=== PATIENT | male | born 1955 | race Caucasian/White ===

== ENCOUNTER 2023-06-10 11:08 | Inpatient (IN) ==
[2023-06-10] MEDS ORDERED: ALBUT/IPRATROP 3MG/0.5MG NEB 3 ML VIAL INH STA (11:16)
--- NOTE | 2023-06-10 11:18 | Emergency Department Note ---
Impression & Plan Acute respiratory failure with hypoxia and hypercarbia ADMIT ED Provider Note HPI: The patient is a 67-year-old gentleman with history of COPD, CHF, on 3 L nasal cannula oxygen at baseline, atrial fibrillation on Coumadin, who presents the emergency department via EMS with a chief complaint of shortness of breath. Patient states that shortness of breath developed last night. He states that it continued throughout the night into the morning so he called EMS to be assessed in the ED. Per EMS the patient was in respiratory distress on their arrival, he had oxygen saturation of 74% despite being on 3 L nasal cannula oxygen and therefore was placed on nonrebreather mask with DuoNeb breathing treatment with good improvement in his O2 sats. Patient also received Solu-Medrol in the field via EMS. Patient denies any chest pain. Patient denies any recent fever or cough. On arrival here to the ED the patient is on nonrebreather mask at 10 L saturating at 95%, he does display some mild increased work of breathing, he is otherwise hemodynamically stable. ROS: - Per HPI Differential Diagnosis: COPD exacerbation, CHF exacerbation, acute coronary syndrome, viral upper respiratory infection, acute bacterial pneumonia, pulmonary edema, amongst other potential pathologies. *Outpatient medications and allergy history reviewed. *Pertinent external medical records reviewed. PE: General: Alert, obese HEENT: Normocephalic, trachea midline Eyes: Extraocular eye movement is intact, no scleral erythema Pulmonary: Diminished bilaterally with mild expiratory wheezing in the upper lung saxena bilaterally Cardio: Regular rate and irregular rhythm GI: Abdomen is soft to palpation : No suprapubic tenderness MSK: No evidence of trauma or malformation of the extremities, 2+ edema b/l LE Skin: No evidence of rash Neuro: Alert, no focal deficits Psychiatric: Cooperative court recording monitor: (As interpreted by myself): - An order was placed for continuous cardiac monitoring - Patient was noted to be in atrial fibrillation with a rate of 58 EKG: (As interpreted by myself): Rate: 54 Rhythm: Atrial fibrillation Intervals: Within normal limits ST changes: No ST elevation Time: 1117 Interventions provided in ED: -DuoNeb breathing treatment Medical Decision Making: Shortly after the patient arrived IV was established lab work obtained, patient was ordered additional DuoNeb breathing treatment as he was diminished bilater ally with wheezing on my exam. Lab work shows a leukocytosis of 12.08, hemoglobin is 8.8, unclear baseline, platelet count is normal at 269, venous blood gas was obtained (after delay with lab result) and shows a pH of 7.25 and PCO2 of 86 consistent with acute hypercarbic respiratory failure. Patient had been maintaining his oxygen saturations at 92 to 93% on 5 L nasal cannula oxygen however following my reevaluation and prior to the VBG resulting he was switched to BiPAP over concern for possible hypercarbia as he became slightly more difficult to arouse when I was trying to speak to him on reevaluation. CMP shows elevated serum bicarbonate level at 38, no critical electrolyte abnormalities are noted, troponin is negative, BNP is elevated at 831, chest x- ray shows changes consistent with CHF and bilateral pleural effusions. Viral panel testing was obtained and patient is positive for enterovirus/rhinovirus. Blood cultures were drawn given the patient's leukocytosis and chest x-ray findings, family later arrived at the bedside and provided further history, they state that the patient has been on a progressive decline for about the past 2 to 3 weeks since he arrived to live in [place]. They state that he is "stubborn" and did not want to come to the hospital until he had no choice overnight when his breathing was rapidly deteriorating. Upon results of venous blood gas after some delay with the lab results, I did speak again with respiratory therapy and had the patient's BiPAP settings increased to 18/8 from 14/8 to assist with ventilation and to bring down his PC O2 levels. In addition to the above, the patient's EKG shows atrial fibrillation with a rate of 54 although the patient has had bradycardia at times down to 38 while here in the ED. He is noted to be on carvedilol and this could be playing a role in his bradycardia. In regard to the patient's anemia, patient's daughter tells me that this was an issue when he was admitted at a hospital in [place] about a month ago. She tells me they were unable to find a source, at this time given that his anemia is greater than 8.0 and his blood pressure is stable, will opt to trend and will forego transfusion at this time. Patient has not had any gross bleeding per rectum or hematemesis. I discussed all the above findings with the on-call [facility] midlevel provider, Charlotte Lindo, and the patient was placed for admission in improved condition, noted to be saturating at 95% on BiPAP. Family does note their preference for full CODE STATUS prior to the patient's admission. They a re aware of his stable but tenuous current condition with acute on chronic hypercarbic respiratory failure and risk of possible decompensation. CODE STATUS: FULL Consultants: [facility] service, Dr. Gr Disposition discussion held by myself with: Patient, son at bedside, daughter at bedside * CRITICAL CARE TIME: ( 65 ) minutes -Time spent at the bedside independent of any procedures and management of patient with acute hypoxic and hypercarbic respiratory failure requiring initiation of positive pressure ventilation, time spent at the bedside with discussion with family, interpretation of diagnostic studies, discussion with other healthcare providers and arrangement of admission Diagnosis: 1. Acute on chronic hypercarbic respiratory failure with hypoxia 2. Elevated BNP 3. Leukocytosis, acute 4. Elevated BUN 5. Enterovirus/rhinovirus infection 6. Anemia unknown chronicity Disposition: Admission Jarad Corrigan DO Emergency Medicine Past Med/Surg History Medical History (Updated 06/10/23 @ 14:13 by Jarad Corrigan DO) Anticoagulant long-term use Chronic a-fib Chronic congestive heart failure Chronic respiratory failure with hypoxia COPD (chronic obstructive pulmonary disease) DM II (diabetes mellitus, type II), controlled Hx of deep venous thrombosis Hx of smoking O2 dependent Social History (Updated 06/10/23 @ 13:20 by Pham Lindo PA-C) Smoking Status: Former smoker Tobacco Type: Cigarettes and Smokeless Tobacco (Dip or Chew) Preferred Language: Belarusian Feels Safe at Home: Yes Results & Data (ED) Vital Signs Vital Signs - 24 hr 06/10/23 11:16 06/10/23 11:16 06/10/23 11:25 Temperature 36.5 C Temperature Source Axillary Pulse Rate 56 L Pulse Rate [Apical] Pulse Rate from SpO2 Sensor Pulse Rhythm [Apical] Respiratory Rate 22 Respiratory Effort / Characteristics Spontaneous Respiratory Depth Deep Respiratory Pattern Blood Pressure 150/91 H Blood Pressure [Right Arm] Blood Pressure Mean 110 Blood Pressure Mean [Right Arm] Pulse Oximetry 96 98 Oxygen Delivery Method Oxymask Nebulizer Nebulizer Oxygen Flow Rate 6 6 6 Fraction of Inspired Oxygen Sepsis Recent Fever Within 48 Hours No Sepsis New/Unexplained Change in Mental Status No Sepsis Action Taken by Nursing No Action Required 06/10/23 11:19 06/10/23 11:35 06/10/23 12:49 Temperature Temperature Source Pulse Rate 58 L Pulse Rate [Apical] Pulse Rate from SpO2 Sensor Pulse Rhythm [Apical] Respiratory Rate Respiratory Effort / Characteristics Respiratory Depth Respiratory Pattern Blood Pressure Blood Pressure [Right Arm] Blood Pressure Mean Blood Pressure Mean [Right Arm] Pulse Oximetry 98 90 Oxygen Delivery Method Nasal Cannula Oxygen Flow Rate 6 3 Fraction of Inspired Oxygen Sepsis Recent Fever Within 48 Hours Sepsis New/Unexplained Change in Mental Status Sepsis Action Taken by Nursing 06/10/23 12:50 06/10/23 12:39 06/10/23 11:30 Temperature Temperature Source Pulse Rate 47 L 54 L Pulse Rate [Apical] 48 L Pulse Rate from SpO2 Sensor 52 L Pulse Rhythm [Apical] Irregular Respiratory Rate 26 H 20 Respiratory Effort / Characteristics Spontaneous Respiratory Depth Normal Respiratory Pattern Regular Blood Pressure 163/87 H Blood Pressure [Right Arm] 95/59 L Blood Pressure Mean 112 Blood Pressure Mean [Right Arm] 71 Pulse Oximetry 95 97 96 Oxygen Delivery Method BiPAP Oxygen Flow Rate Fraction of Inspired Oxygen 40 Sepsis Recent Fever Within 48 Hours Sepsis New/Unexplained Change in Mental Status Sepsis Action Taken by Nursing 06/10/23 11:55 06/10/23 12:29 06/10/23 12:30 Temperature Temperature Source Pulse Rate 52 L 53 L 50 L Pulse Rate [Apical] Pulse Rate from SpO2 Sensor 55 L 55 L 53 L Pulse Rhythm [Apical] Respiratory Rate 19 Respiratory Effort / Characteristics Respiratory Depth Respiratory Pattern Blood Pressure 95/58 L 99/63 L 95/59 L Blood Pressure [Right Arm] Blood Pressure Mean 70 75 71 Blood Pressure Mean [Right Arm] Pulse Oximetry 93 93 93 Oxygen Delivery Method Oxygen Flow Rate Fraction of Inspired Oxygen Sepsis Recent Fever Within 48 Hours Sepsis New/Unexplained Change in Mental Status Sepsis Action Taken by Nursing 06/10/23 13:00 Temperature Temperature Source Pulse Rate 53 L Pulse Rate [Apical] Pulse Rate from SpO2 Sensor 52 L Pulse Rhythm [Apical] Respiratory Rate Respiratory Effort / Characteristics Respiratory Depth Respiratory Pattern Blood Pressure 115/69 Blood Pressure [Right Arm] Blood Pressure Mean 84 Blood Pressure Mean [Right Arm] Pulse Oximetry 94 Oxygen Delivery Method Oxygen Flow Rate Fraction of Inspired Oxygen Sepsis Recent Fever Within 48 Hours Sepsis New/Unexplained Change in Mental Status Sepsis Action Taken by Nursing Laboratory Data 06/10/23 11:30 06/10/23 11:30 Lab Results 06/10/23 06/10/23 06/10/23 Range/Units 11:30 11:30 11:30 WBC 12.08 H (4.8-10.8) K/ul RBC 3.18 L (4.70-6.10) M/uL Hgb 8.8 L (14.0-18.0) g/dl Hct 29.9 L (42.0-52.0) % MCV 94.0 (80.0-100.0) fL MCH 27.7 (25.0-34.0) pg MCHC 29.4 L (32.0-36.0) g/dL RDW Std Deviation 59.6 H (36.4-46.3) fL RDW Coeff of Dhaval 17.0 H (11.5-14.5) % Plt Count 269 (130-400) K/uL MPV 9.4 (9.4-12.4) fL Immature Gran % (Auto) 0.4 % Neut % (Auto) 85.3 % Lymph % (Auto) 5.2 % Anderson % (Auto) 8.1 % Eos % (Auto) 0.6 % Baso % (Auto) 0.4 % Neut # (Auto) 10.30 H (1.40-6.50) K/uL Lymph # (Auto) 0.63 L (1.2-3.4) K/uL Anderson # (Auto) 0.98 H (0.11-0.59) K/uL Eos # (Auto) 0.07 (0-0.50) K/uL Baso # (Auto) 0.05 (0-0.2) K/uL Immature Gran # (Auto) 0.05 (0.01-0.20) K/uL PT 17.9 H (9.0-12.0) Seconds INR 1.7 H (0.9-1.1) VBG pH (7.36-7.41) VBG pCO2 (38-50) mmHg VBG pO2 mmHg VBG HCO3 mmol/L VBG O2 Saturation % VBG Base Excess mEq/L Sodium 138 (136-145) mmol/L Potassium 4.9 (3.5-5.1) mmol/L Chloride 97 L (98-107) mmol/L Carbon Dioxide 38 H (21-32) mmol/L Anion Gap 3 (3-11) BUN 26 H (6-23) mg/dl Creatinine 0.80 (0.6-1.4) mg/dl Est Cr Clr Drug Dosing 121.6 ml/min Est GFR ( Amer) 107.9 ml/min Est GFR (Non-Af Amer) 93.1 ml/min BUN/Creatinine Ratio 32.5 H (10-20) Glucose 133 H (70-99(Fasting)) mg/dl Calcium 9.0 (8.6-10.3) mg/dl Total Bilirubin 0.4 (0.2-1.0) mg/dl AST 17 (13-39) U/L ALT 11 (7-52) U/L Alkaline Phosphatase 93 (34-104) U/L Troponin I High Sens 19.1 (0-20) pg/ml B-Natriuretic Peptide (0-100) pg/ml Total Protein 6.9 (6.0-8.3) gm/dl Albumin 3.7 (3.4-5.0) gm/dl Globulin 3.2 (2.5-4.0) gm/dl Albumin/Globulin Ratio 1.2 (0.9-2) 06/10/23 06/10/23 Range/Units 11:30 12:40 WBC (4.8-10.8) K/ul RBC (4.70-6.10) M/uL Hgb (14.0-18.0) g/dl Hct (42.0-52.0) % MCV (80.0-100.0) fL MCH (25.0-34.0) pg MCHC (32.0-36.0) g/dL RDW Std Deviation (36.4-46.3) fL RDW Coeff of Dhaval (11.5-14.5) % Plt Count (130-400) K/uL MPV (9.4-12.4) fL Immature Gran % (Auto) % Neut % (Auto) % Lymph % (Auto) % Anderson % (Auto) % Eos % (Auto) % Baso % (Auto) % Neut # (Auto) (1.40-6.50) K/uL Lymph # (Auto) (1.2-3.4) K/uL Anderson # (Auto) (0.11-0.59) K/uL Eos # (Auto) (0-0.50) K/uL Baso # (Auto) (0-0.2) K/uL Immature Gran # (Auto) (0.01-0.20) K/uL PT (9.0-12.0) Seconds INR (0.9-1.1) VBG pH 7.25 L (7.36-7.41) VBG pCO2 86 H (38-50) mmHg VBG pO2 50 mmHg VBG HCO3 38 mmol/L VBG O2 Saturation 82.8 % VBG Base Excess 8.6 mEq/L Sodium (136-145) mmol/L Potassium (3.5-5.1) mmol/L Chloride (98-107) mmol/L Carbon Dioxide (21-32) mmol/L Anion Gap (3-11) BUN (6-23) mg/dl Creatinine (0.6-1.4) mg/dl Est Cr Clr Drug Dosing ml/min Est GFR ( Amer) ml/min Est GFR (Non-Af Amer) ml/min BUN/Creatinine Ratio (10-20) Glucose (70-99(Fasting)) mg/dl Calcium (8.6-10.3) mg/dl Total Bilirubin (0.2-1.0) mg/dl AST (13-39) U/L ALT (7-52) U/L Alkaline Phosphatase (34-104) U/L Troponin I High Sens (0-20) pg/ml B-Natriuretic Peptide 831 H (0-100) pg/ml Total Protein (6.0-8.3) gm/dl Albumin (3.4-5.0) gm/dl Globulin (2.5-4.0) gm/dl Albumin/Globulin Ratio (0.9-2) Administered Medications Discontinued Medications Albuterol (Albut/Ipratrop 3mg/0.5mg Neb 3 Ml Vial) 3 ml INH NOW STA Stop: 06/10/23 11:17 Last Admin: 06/10/23 11:24 Dose: 3 ml Documented By: KN Furosemide (Furosemide 40 Mg/4 Ml Vial) 40 mg IV ONE ONE Stop: 06/10/23 12:26 Last Admin: 06/10/23 13:24 Dose: 40 mg Documented By: NRZonia Ceftriaxone Sodium (Rocephin) 2,000 mg in 70 mls @ 140 mls/hr IV NOW STA Stop: 06/10/23 13:28 Last Admin: 06/10/23 13:26 Dose: 140 mls/hr Documented By: NRB Imaging Data Radiologist's Impression: Chest X-Ray 06/10/23 11:16 XR chest 1V portable HISTORY: 67 years-old Male Dyspnea acute shortness of breath COMPARISON: None TECHNIQUE: AP view of the chest FINDINGS: Cardiac silhouette is enlarged. Atherosclerosis of the aorta. Pulmonary vascular congestion with interstitial coarsening. No pneumothorax. Right greater than left pleural effusions with bibasilar consolidation. Degenerative changes of the shoulders and spine. IMPRESSION: 1. Cardiomegaly with pulmonary edema. 2. Layering pleural effusions with bibasilar consolidation, right greater than left. ACT 112: Negative or not required by law. The above report was generated using voice recognition software. It may contain grammatical, syntax or spelling errors. Electronically signed by: Josiah Sanchez M.D. 06/10/2023 11:48 AM Discharge Plan Visit Data Chief Complaint: Shortness of Breath/Dyspnea Stated Complaint: SOB SINCE LAST NIGHT ED Provider: Jarad Corrigan Discharge Problem: Acute respiratory failure with hypoxia and hypercarbia Patient Disposition: Admitted As Inpatient Discharge Instructions Interventions: ED Discharge Assessment Last Done: 06/10/23 13:43
--- NOTE | 2023-06-10 11:50 | XRay Report ---
XR chest 1V portable HISTORY: 67 years-old Male Dyspnea acute shortness of breath COMPARISON: None TECHNIQUE: AP view of the chest FINDINGS: Cardiac silhouette is enlarged. Atherosclerosis of the aorta. Pulmonary vascular congestion with inte rstitial coarsening. No pneumothorax. Right greater than left pleural effusions with bibasilar consol idation. Degenerative changes of the shoulders and spine. IMPRESSION: 1. Cardiomegaly with pulmonary edema. 2. Layering pleural effusions with bibasilar consolidation, right greater than left. ACT 112: Negative or not required by law. The above report was generated using voice recognition software. It may contain grammatical, syntax o r spelling errors. Electronically signed by: Josiah Sanchez M.D. 06/10/2023 11:48 AM
[2023-06-10 12:05] LABS: Basophils # (auto) 0.05 K/uL (0-0.2); Basophils % (auto) 0.4 %; Eosinophils # (auto) 0.07 K/uL (0-0.50); Eosinophils % (auto) 0.6 %; Hematocrit (blood only) 29.9 % (42.0-52.0); Hemoglobin 8.8 g/dl (14.0-18.0); Immature Granulocytes # (auto) 0.05 K/uL (0.01-0.20); Immature Granulocytes % (auto) 0.4 %; Lymphocytes # (auto) 0.63 K/uL (1.2-3.4); Lymphocytes % (auto) 5.2 %; Mean Corpuscular Hemoglobin 27.7 pg (25.0-34.0); Mean Corpuscular Hgb Conc 29.4 g/dL (32.0-36.0); Mean Platelet Volume 9.4 fL (9.4-12.4); Monocytes # (auto) 0.98 K/uL (0.11-0.59); Monocytes % (auto) 8.1 %; Neutrophils % (auto) 85.3 %; Platelet Count 269 K/uL (130-400); RDW Standard Deviation 59.6 fL (36.4-46.3); Red Blood Count 3.18 M/uL (4.70-6.10); White Blood Count 12.08 K/ul (4.8-10.8)
[2023-06-10 12:20] LABS: Albumin Globulin Ratio 1.2 (0.9-2); Albumin Level 3.7 gm/dl (3.4-5.0); BUN Creatinine Ratio 32.5 (10-20); Bilirubin,Total 0.4 mg/dl (0.2-1.0); Creatinine Clr Calc Pharmacy 121.6 ml/min; Est GFR (African American) 107.9 ml/min; Est GFR (Non-African American) 93.1 ml/min; Globulin 3.2 gm/dl (2.5-4.0); Potassium 4.9 mmol/L (3.5-5.1); Total Protein 6.9 gm/dl (6.0-8.3)
[2023-06-10] MEDS ORDERED: FUROSEMIDE 40 MG/4 ML VIAL IV ONE (12:25)
[2023-06-10 12:26] LABS: Troponin I High Sensitivity 19.1 pg/ml (0-20)
[2023-06-10 12:27] LABS: INR 1.7 (0.9-1.1); Prothrombin Time 17.9 Seconds (9.0-12.0)
[2023-06-10 12:48] LABS: Base Excess VBG 8.6 mEq/L; HCO3 VBG 38 mmol/L; Oxygen Saturation VBG 82.8 %; PCO2 VBG 86 mmHg (38-50); PO2 VBG 50 mmHg; pH VBG 7.25 (7.36-7.41)
[2023-06-10 12:51] LABS: Adenovirus PCR Not Detected (NotDetected); Bordetella parapertussis PCR Not Detected (NotDetected); Bordetella pertussis PCR Not Detected (NotDetected); Chlamydia pneumoniae PCR Not Detected (NotDetected); Coronavirus 229E PCR Not Detected (NotDetected); Coronavirus CoV-2 (COVID19)PCR Not Detected (NotDetected); Coronavirus HKU1 PCR Not Detected (NotDetected); Coronavirus NL63 PCR Not Detected (NotDetected); Coronavirus OC43PCR Not Detected (NotDetected); Human Metapneumovirus PCR Not Detected (NotDetected); Influenza A PCR Not Detected (NotDetected); Influenza B PCR Not Detected (NotDetected); Mycoplasma pneumoniae PCR Not Detected (NotDetected); Parainfluenza Virus 1 PCR Not Detected (NotDetected); Parainfluenza Virus 2 PCR Not Detected (NotDetected); Parainfluenza Virus 3 PCR Not Detected (NotDetected); Parainfluenza Virus 4 PCR Not Detected (NotDetected); Respiratory Syncytial VirusPCR Not Detected (NotDetected)
[2023-06-10] MEDS ORDERED: AZITHROMYCIN 500 MG in DEXTROSE 5% 250 ML IV STA (12:59)
[2023-06-10] MEDS ORDERED: cefTRIAXone SODIUM 2,000 MG/70 ML BAG IV STA (12:59)
[2023-06-10 13:02] LABS: Rhinovirus/Enterovirus PCR DETECTED (NotDetected)
--- NOTE | 2023-06-10 13:22 | History & Physical Report ---
Date of Service June 10, 2023 Assessment & Plan (1) Chronic respiratory failure with hypoxia: (2) COPD (chronic obstructive pulmonary disease): (3) O2 dependent: Plan: -Admit to PCU -Pulmonology consult -Continue on BiPAP at 18/2, trend ABGs every 4 hours, next set at 4 PM -VBG conducted showing pH of 7.25, PCO2 86 -CXR reviewed showing cardiomegaly with pulmonary edema, layering pleural effusion with bibasilar consolidations right greater than left -Started on ceftriaxone and azithromycin for suspected pneumonia - continue -Was given Solu-Medrol in the ER for possible acute COPD exacerbation, no further steroids at this time unless otherwise directed by pulmonology -Pulmonology consulted (4) Acute on chronic congestive heart failure: Plan: - Patient was administered Lasix 40 mg IV in the ER, Barron catheter ordered, strict I's and O's, daily weights -Check 2D echo -Cardiology consulted -Patient is on Coreg, Imdur, Vasotec, Lasix, atorvastatin at home-holding Coreg secondary to acute bradycardia -Check Lyme disease, tickborne illnesses with fluctuating bradycardia, HR between the mid 30s and 50s w hx of afib -Chronic lymphedema in bilateral lower extremities, patient has been followed by wound clinic as an outpatient on a near daily basis, continue wrapping of legs, wound consult placed (5) Chronic a-fib: (6) Anticoagulant long-term use: Plan: -Continue Coumadin, patient takes 10 mg daily at home -INR = 1.7 today on admission, subtherapeutic -Hemoglobin of 8.8 on admission, anemia panel ordered, patient had required 9 units blood transfusion during last hospital stay, trend with a.m. labs -Transfuse for hemoglobin of 7.0 (7) DM II (diabetes mellitus, type II), controlled: Plan: -ISS with Accu-Cheks ACHS -Patient received Solu-Medrol in the ER, no further steroids at this time -Check A1c with a.m. labs -Holding glimepiride, Jardiance while on ISS with Accu-Cheks ACHS DVT PPx: - teds, scds CODE: Full code-discussed with the family at bedside Dispo: From home, likely to remain in the hospital x 1-2 days HIM records requested from previous hospitalization. A total of 85 minutes were spent with greater than 50% of that time face to face with the patient, personally reviewing all current laboratories, imaging stud ies, past medication reconciliation, outpatient chart review, and discussion with specialists to collaborate care for the patient with attending. Please see attending documentation for corrections and/or additions. History of Present Illness Chief Complaint: Shortness of breath Primary Care Provider: ANGELICA PCP This is a 67-year-old male with PMHx of morbid obesity with a BMI of 47.4, O2 dependent at 3 L at baseline, CPAP at bedtime, DM type II, COPD, chronic hypoxic respiratory failure, A-fib, anticoagulated on Coumadin, history of DVT, squamous cell carcinoma of the face, venous insufficiency, who recently established with [facility] PCP within the past few weeks after moving here from [place]. Patient presents to the hospital with worsening progressive shortness of breath x 3 days. Pt is on bipap and somnolent on my visit, history is obtained from daughter at bedside. Worsening shortness of breath x3 days, increasing somnolence, and this morning was difficult to awaken. Prior to this he had only been able to ambulate a 25 steps prior to becoming so dyspneic needing to rest. He had been using his oxygen 3 L plus his portable O2 at 2 L at the same time - total of 5 L the last 2 days and at baseline wears 2.5 L and CPAP HS. Patient has been taking his medications as instructed as his daughter regulates these. He has been following with wound care for significantly edematous legs and has been wrapped on a daily basis. She reports that there is no wound or ulceration on his lower legs. Approximately 4 weeks ago patient was hospitalized for a 3 to 4-week. At [facility] in [facility], in the ICU for CHF, COPD and supratherapeutic INR and required transfusion x9 for a presumed GI bleed which was unable to be scoped due to his unstable condition. He was living in unfit conditions and therefore was discharged under the pretense that he would live with his daughter. Patient is found to have normal troponin, elevated BNP of 830, is requiring BiPAP, positive for rhinovirus/enterovirus, and on chest x-ray shows cardiomegaly with pulmonary edema, layering pleural effusions with bibasilar consolidations right greater than left. His hemoglobin is decreased to 8.8, but there is no baseline for me to compare this to. Family reports that he was being worked up as an outpatient for anemia without knowledge of results. Past Med/Surg History Medical History (Updated 06/10/23 @ 15:02 by Nir Ramos MD) Anticoagulant long-term use Chronic a-fib Chronic congestive heart failure Chronic respiratory failure with hypoxia COPD (chronic obstructive pulmonary disease) DM II (diabetes mellitus, type II), controlled Hx of deep venous thrombosis Hx of smoking O2 dependent Surgical History (Updated 06/10/23 @ 14:15 by Pham Lindo PA-C) No pertinent past surgical history Family History (Updated 06/10/23 @ 14:17 by Pham Lindo PA-C) Other Diabetes Social History (Updated 06/10/23 @ 13:20 by Pham Lindo PA-C) Smoking Status: Former smoker Tobacco Type: Cigarettes and Smokeless Tobacco (Dip or Chew) Preferred Language: [place] Zealander Feels Safe at Home: Yes Review of Systems Review of Systems: Unobtainable due to cognitive status Physical Exam Physical Exam: General:somnolent, awakens to verbal stimuli and shaking his arm, but cannot participate in conversation, no apparent distress, + obese with BMI 47.4 Head: Normocephalic, atraumatic ENT: PERRL, EOMI, no pharyngeal exudate, mucous membranes moist Chest: + Coarse breath sounds, on bipap at 18 / 2, + expiratory wheeze Cardiac: Sinus bradycardia with HR fluctuating between mid 30s - 50s at bedside, faint systolic murmur, 1+ JVD, normal peripheral pulses, good capillary refill, + edematous legs bilaterally wrapped with ANGEL. Abdominal: NABS x 4 quadrants, soft, nondistended, nontender to palpation, no rebound or guarding Extremities: Normal inspection, + peripheral edema , wrapped, cannot assess erythema, calfs nontender to palpation Psych: unable to determine due to somnolence Neuro: awakens to verbal stimuli, confused Results & Data Results & Data Vital Signs (Past 12 Hours) Vital Signs Temp Pulse Pulse Resp BP BP Pulse Ox 06/10/23 12:39 47 L 26 H 97 06/10/23 12:50 48 L 95/59 L 95 06/10/23 12:49 90 06/10/23 11:35 98 06/10/23 11:19 58 L 06/10/23 11:25 98 06/10/23 11:16 36.5 C 56 L 22 150/91 H 96 06/10/23 11:16 O2 Del Method O2 Flow Rate FiO2 06/10/23 12:39 40 06/10/23 12:50 BiPAP 06/10/23 12:49 Nasal Cannula 3 06/10/23 11:35 6 06/10/23 11:19 06/10/23 11:25 Nebulizer 6 06/10/23 11:16 Nebulizer 6 06/10/23 11:16 Oxymask 6 Laboratory Results 06/10/23 13:19 Aerobic Blood Culture - Pending Blood Anaerobic Blood Culture - Pending 06/10/23 13:12 Aerobic Blood Culture - Pending Blood Anaerobic Blood Culture - Pending 06/10/23 06/10/23 06/10/23 Unknown 12:40 11:30 WBC RBC Hgb Hct MCV MCH MCHC RDW Std Deviation RDW Coeff of Dhaval Plt Count MPV Immature Gran % (Auto) Neut % (Auto) Lymph % (Auto) [place] % (Auto) Eos % (Auto) Baso % (Auto) Neut # (Auto) Lymph # (Auto) [place] # (Auto) Eos # (Auto) Baso # (Auto) Immature Gran # (Auto) PT INR VBG pH 7.25 L VBG pCO2 86 H VBG pO2 50 VBG HCO3 38 VBG O2 Saturation 82.8 VBG Base Excess 8.6 Sodium Potassium Chloride Carbon Dioxide Anion Gap BUN Creatinine Est Cr Clr Drug Dosing Est GFR ( Amer) Est GFR (Non-Af Amer) BUN/Creatinine Ratio Glucose Calcium Total Bilirubin AST ALT Alkaline Phosphatase Troponin I High Sens B-Natriuretic Peptide 831 H Total Protein Albumin Globulin Albumin/Globulin Ratio Adenovirus (PCR) Not Detected B. pertussis DNA (PCR) Not Detected B.parapertussis DNA PCR Not Detected C. pneumoniae DNA (PCR) Not Detected Coronavirus OC43 (PCR) Not Detected Coronavirus HKU1 (PCR) Not Detected Coronavirus 229E (PCR) Not Detected SARS-CoV-2 (PCR) Not Detected Coronavirus NL63 (PCR) Not Detected Human Metapneumovir PCR Not Detected Influenza Type A (PCR) Not Detected Influenza Type B (PCR) Not Detected M. pneumoniae (PCR) Not Detected Parainfluenza 1 (PCR) Not Detected Parainfluenza 2 (PCR) Not Detected Parainfluenza 3 (PCR) Not Detected Parainfluenza 4 (PCR) Not Detected RSV (PCR) Not Detected Entero/Rhino (PCR) DETECTED A* 06/10/23 06/10/23 06/10/23 11:30 11:30 11:30 WBC 12.08 H RBC 3.18 L Hgb 8.8 L Hct 29.9 L MCV 94.0 MCH 27.7 MCHC 29.4 L RDW Std Deviation 59.6 H RDW Coeff of Dhaval 17.0 H Plt Count 269 MPV 9.4 Immature Gran % (Auto) 0.4 Neut % (Auto) 85.3 Lymph % (Auto) 5.2 [place] % (Auto) 8.1 Eos % (Auto) 0.6 Baso % (Auto) 0.4 Neut # (Auto) 10.30 H Lymph # (Auto) 0.63 L [place] # (Auto) 0.98 H Eos # (Auto) 0.07 Baso # (Auto) 0.05 Immature Gran # (Auto) 0.05 PT 17.9 H INR 1.7 H VBG pH VBG pCO2 VBG pO2 VBG HCO3 VBG O2 Saturation VBG Base Excess Sodium 138 Potassium 4.9 Chloride 97 L Carbon Dioxide 38 H Anion Gap 3 BUN 26 H Creatinine 0.80 Est Cr Clr Drug Dosing 121.6 Est GFR ( Amer) 107.9 Est GFR (Non-Af Amer) 93.1 BUN/Creatinine Ratio 32.5 H Glucose 133 H Calcium 9.0 Total Bilirubin 0.4 AST 17 ALT 11 Alkaline Phosphatase 93 Troponin I High Sens 19.1 B-Natriuretic Peptide Total Protein 6.9 Albumin 3.7 Globulin 3.2 Albumin/Globulin Ratio 1.2 Adenovirus (PCR) B. pertussis DNA (PCR) B.parapertussis DNA PCR C. pneumoniae DNA (PCR) Coronavirus OC43 (PCR) Coronavirus HKU1 (PCR) Coronavirus 229E (PCR) SARS-CoV-2 (PCR) Coronavirus NL63 (PCR) Human Metapneumovir PCR Influenza Type A (PCR) Influenza Type B (PCR) M. pneumoniae (PCR) Parainfluenza 1 (PCR) Parainfluenza 2 (PCR) Parainfluenza 3 (PCR) Parainfluenza 4 (PCR) RSV (PCR) Entero/Rhino (PCR) Diagnostic Findings Chest X-Ray 06/10/23 11:16 XR chest 1V portable HISTORY: 67 years-old Male Dyspnea acute shortness of breath COMPARISON: None TECHNIQUE: AP view of the chest FINDINGS: Cardiac silhouette is enlarged. Atherosclerosis of the aorta. Pulmonary vascular congestion with interstitial coarsening. No pneumothorax. Right greater than left pleural effusions with bibasilar consolidation. Degenerative changes of the shoulders and spine. IMPRESSION: 1. Cardiomegaly with pulmonary edema. 2. Layering pleural effusions with bibasilar consolidation, right greater than left. ACT 112: Negative or not required by law. The above report was generated using voice recognition software. It may contain grammatical, syntax or spelling errors. Electronically signed by: Josiah Sanchez M.D. 06/10/2023 11:48 AM Code Status & VTE Plan Code Status Full code- discussed with the family at bedside Supervising Physician Co-Signing Physician Notes Change in mental status with toxic metabolic encephalopathy secondary to co2 narcosis for a 67 year old with underlying copd. vbg shows respiratory acidosis with compensatory metabolic alkalosis. I spoke to family and discussed plan of care with family . concerns of episodes of bradycardia at this time Patient also noted to have anemia. will transfuse if hb less than 8. Echo ordered
--- NOTE | 2023-06-10 15:07 | Pulmonary Consultation ---
Date of Consultation June 10, 2023 Assessment & Plan (1) Acute respiratory failure with hypoxia and hypercarbia: (2) Acute on chronic congestive heart failure: (3) Obesity hypoventilation syndrome: Plan Impression: 67-year-old male with morbid obesity and likely obesity hypoventil ation syndrome. His bicarb is chronically elevated but he does have an acidemic pH and likely some acute on chronic elevation of his serum bicarb. It is unclear whether he actually has COPD or not. His x-ray is difficult if impossible to determine whether or not superimposed pneumonia is present Recommendations: 1. Acute on chronic hypercarbic respiratory failure: Suspect this is obesity hypoventilation syndrome. Outpatient PFTs and polysomnography recommended. For now would continue BiPAP at 16/10. Once the patient's mental status resolves, this can be removed but should be applied at night and whenever the patient is sleeping and as needed for altered mental status or increased work of breathing. Check procalcitonin. If negative I think antibiotics can be withheld from a lung perspective. 2. Agree with work-up for congestive heart failure. Echocardiogram and cardiology consultation pending. Patient received IV Lasix in the emergency room. He likely needs aggressive additional diuretics. 3. Ultimately the patient requires weight loss for optimization of his medical conditions. 4. Reported history of COPD. He does not appear bronchospastic and I do not see an indication for steroids currently. Can use as needed bronchodilators. Outpatient PFTs recommended. The patient appears to be in poor general condition. He has multiple medical issues which all appear relatively chronic at this point in time. We will be happy to review records from his prior hospitalization once available. Discussed with bedside nurse History of Present Illness Attending Physician: Yusef Gr MD History of Present Illness Asked by hospitalist to assist in evaluation management this patient admitted with shortness of breath and found to have acute on chronic hypercarbic and hypoxemic respiratory failure. History is obtained from review electronic medical record as well as discussion with patient. Patient is a morbidly obese 67-year-old male who is dependent on oxygen. He presented to the emergency room with shortness of breath. He relates a history of COPD although it is unclear if he is ever had PFTs performed previously. There is no pulm medications noted and the patient does not report using CPAP or BiPAP at home. He is never had a sleep study. In the emergency room the patient had a chest x-ray which was a poor quality film. It demonstrated significant cardiomegaly. The lungs were poorly visualized due to body habitus but no obvious infiltrate was identified. He received Lasix in the emergency room and was also treated with steroids and bronchodilators. No documentation of bronchospasm. He was placed on BiPAP and admitted to the hospitalist service. He thinks his breathing is better than when he came in. He does not report fevers chills night sweats or other constitutional symptoms. Patient History Medical History (Updated 06/10/23 @ 15:02 by Nir Ramos MD) Anticoagulant long-term use Chronic a-fib Chronic congestive heart failure Chronic respiratory failure with hypoxia COPD (chronic obstructive pulmonary disease) DM II (diabetes mellitus, type II), controlled Hx of deep venous thrombosis Hx of smoking O2 dependent Surgical History (Updated 06/10/23 @ 14:15 by Pham Lindo PA-C) No pertinent past surgical history Family History (Updated 06/10/23 @ 14:17 by Pham Lindo PA-C) Other Diabetes Social History (Updated 06/10/23 @ 13:20 by Pham Lindo PA-C) Smoking Status: Former smoker Tobacco Type: Cigarettes and Smokeless Tobacco (Dip or Chew) Preferred Language: Khmer Feels Safe at Home: Yes Review of Systems Review of Systems: Please refer to admission H&P. No additions or deletions Physical Exam Constitutional: + morbidly obese; no acute distress Patient's morbid obesity limits the sensitivity of physical exam Neck: trachea midline, no thyromegaly Respiratory: normal respiratory effort, lungs clear to auscultation Cardiovascular: Rate/Rhythm: regular rate Heart Sounds: normal S1 and normal S2; no murmur Extremities: + edema Bilateral wraps to the lower extremity Gastrointestinal (Abdomen): normal bowel sounds, soft, nontender, no hepatosplenomegaly Musculoskeletal: Extremities: extremities normal to inspection Skin: no rashes, warm and dry Neurologic: Nonfocal exam Lymphatic: no cervical lymphadenopathy Results & Data Results & Data Vital Signs (Past 12 Hours) Vital Signs Temp Pulse Pulse Resp BP BP Pulse Ox 06/10/23 14:16 64 23 141/89 H 97 06/10/23 14:00 43 L 16 110/59 L 94 06/10/23 14:00 46 L 110/59 L 93 06/10/23 13:46 61 13 119/69 96 06/10/23 13:30 49 L 18 105/66 96 06/10/23 13:00 53 L 115/69 94 06/10/23 12:30 50 L 95/59 L 93 06/10/23 12:29 53 L 99/63 L 93 06/10/23 11:55 52 L 19 95/58 L 93 06/10/23 11:30 54 L 20 163/87 H 96 06/10/23 13:52 44 L 26 H 96 06/10/23 12:39 47 L 26 H 97 06/10/23 12:50 48 L 95/59 L 95 06/10/23 12:49 90 06/10/23 11:35 98 06/10/23 11:19 58 L 06/10/23 11:25 98 06/10/23 11:16 36.5 C 56 L 22 150/91 H 96 06/10/23 11:16 O2 Del Method O2 Flow Rate FiO2 06/10/23 14:16 06/10/23 14:00 06/10/23 14:00 BiPAP 06/10/23 13:46 06/10/23 13:30 06/10/23 13:00 06/10/23 12:30 06/10/23 12:29 06/10/23 11:55 06/10/23 11:30 06/10/23 13:52 40 06/10/23 12:39 40 06/10/23 12:50 BiPAP 06/10/23 12:49 Nasal Cannula 3 06/10/23 11:35 6 06/10/23 11:19 06/10/23 11:25 Nebulizer 6 06/10/23 11:16 Nebulizer 6 06/10/23 11:16 Oxymask 6 Critical Care Results & Data Vital Signs (Past 12 Hours) Vital Signs Temp Pulse Pulse Resp BP BP Pulse Ox 06/10/23 14:16 64 23 141/89 H 97 06/10/23 14:00 43 L 16 110/59 L 94 06/10/23 14:00 46 L 110/59 L 93 06/10/23 13:46 61 13 119/69 96 06/10/23 13:30 49 L 18 105/66 96 06/10/23 13:00 53 L 115/69 94 06/10/23 12:30 50 L 95/59 L 93 06/10/23 12:29 53 L 99/63 L 93 06/10/23 11:55 52 L 19 95/58 L 93 06/10/23 11:30 54 L 20 163/87 H 96 06/10/23 13:52 44 L 26 H 96 06/10/23 12:39 47 L 26 H 97 06/10/23 12:50 48 L 95/59 L 95 06/10/23 12:49 90 06/10/23 11:35 98 06/10/23 11:19 58 L 06/10/23 11:25 98 06/10/23 11:16 36.5 C 56 L 22 150/91 H 96 06/10/23 11:16 O2 Del Method O2 Flow Rate FiO2 06/10/23 14:16 06/10/23 14:00 06/10/23 14:00 BiPAP 06/10/23 13:46 06/10/23 13:30 06/10/23 13:00 06/10/23 12:30 06/10/23 12:29 06/10/23 11:55 06/10/23 11:30 06/10/23 13:52 40 06/10/23 12:39 40 06/10/23 12:50 BiPAP 06/10/23 12:49 Nasal Cannula 3 06/10/23 11:35 6 06/10/23 11:19 06/10/23 11:25 Nebulizer 6 06/10/23 11:16 Nebulizer 6 06/10/23 11:16 Oxymask 6 Lab & Micro Results (Past 24 Hours) RBC 3.18 M/uL (4.70-6.10) L 06/10/23 WBC 12.08 K/ul (4.8-10.8) H 06/10/23 Hgb 8.8 g/dl (14.0-18.0) L 06/10/23 Hct 29.9 % (42.0-52.0) L 06/10/23 MCV 94.0 fL (80.0-100.0) 06/10/23 MCH 27.7 pg (25.0-34.0) 06/10/23 MCHC 29.4 g/dL (32.0-36.0) L 06/10/23 RDW Standard Deviation 59.6 fL (36.4-46.3) H 06/10/23 RDW Coefficient of Variation 17.0 % (11.5-14.5) H 06/10/23 Plt Count 269 K/uL (130-400) 06/10/23 MPV 9.4 fL (9.4-12.4) 06/10/23 Neutrophils (%) (Auto) 85.3 % 06/10/23 Lymphocytes (%) (Auto) 5.2 % 06/10/23 Monocytes # (Auto) 0.98 K/uL (0.11-0.59) H 06/10/23 Eosinophils # (Auto) 0.07 K/uL (0-0.50) 06/10/23 Immature Granulocyte % (Auto) 0.4 % 06/10/23 Neutrophils # (Auto) 10.30 K/uL (1.40-6.50) H 06/10/23 Lymphocytes # (Auto) 0.63 K/uL (1.2-3.4) L 06/10/23 Monocytes # (Auto) 0.98 K/uL (0.11-0.59) H 06/10/23 Eosinophils # (Auto) 0.07 K/uL (0-0.50) 06/10/23 Basophils # (Auto) 0.05 K/uL (0-0.2) 06/10/23 Immature Granulocyte # (Auto) 0.05 K/uL (0.01-0.20) 3 Na 138 mmol/L (136-145) 06/10/23 K 4.9 mmol/L (3.5-5.1) 06/10/23 Cl 97 mmol/L (98-107) L 06/10/23 CO2 38 mmol/L (21-32) H 06/10/23 Anion Gap 3 (3-11) 06/10/23 BUN 26 mg/dl (6-23) H 06/10/23 Creatinine 0.80 mg/dl (0.6-1.4) 06/10/23 Estimated GFR ( Amer) 107.9 ml/min 06/10/23 Estimated GFR (Non-Af Amer) 93.1 ml/min 06/10/23 BUN/Creatinine Ratio 32.5 (10-20) H 06/10/23 Glu 133 mg/dl (70-99(Fasting)) H 06/10/23 Ca 9.0 mg/dl (8.6-10.3) 06/10/23 Total Bilirubin 0.4 mg/dl (0.2-1.0) 06/10/23 AST 17 U/L (13-39) 06/10/23 ALT 11 U/L (7-52) 06/10/23 Alkaline Phosphatase 93 U/L (34-104) 06/10/23 TP 6.9 gm/dl (6.0-8.3) 06/10/23 Albumin 3.7 gm/dl (3.4-5.0) 06/10/23 Globulin 3.2 gm/dl (2.5-4.0) 06/10/23 Albumin/Globulin Ratio 1.2 (0.9-2) 06/10/23 Calcium Level 9.0 mg/dl (8.6-10.3) 06/10/23 11:30 Prothromb Time International Ratio 1.7 (0.9-1.1) H 06/10/23 11 :30 Venous Blood pH 7.25 (7.36-7.41) L 06/10/23 12:40 Venous Blood Partial Pressure CO2 86 mmHg (38-50) H 06/10/23 12 :40 Venous Blood Partial Pressure O2 50 mmHg 06/10/23 12:40 Venous Blood HCO3 38 mmol/L 06/10/23 12:40 Venous Blood Base Excess 8.6 mEq/L 06/10/23 12:40 Venous Blood Oxygen Saturation 82.8 % 06/10/23 12:40 Diagnostic Findings (Past 24 Hours) Chest X-Ray 06/10/23 11:16 XR chest 1V portable HISTORY: 67 years-old Male Dyspnea acute shortness of breath COMPARISON: None TECHNIQUE: AP view of the chest FINDINGS: Cardiac silhouette is enlarged. Atherosclerosis of the aorta. Pulmonary vascular congestion with interstitial coarsening. No pneumothorax. Right greater than left pleural effusions with bibasilar consolidation. Degenerative changes of the shoulders and spine. IMPRESSION: 1. Cardiomegaly with pulmonary edema. 2. Layering pleural effusions with bibasilar consolidation, right greater than left. ACT 112: Negative or not required by law. The above report was generated using voice recognition software. It may contain grammatical, syntax or spelling errors. Electronically signed by: Josiah Sanchez M.D. 06/10/2023 11:48 AM I & O Totals 24 Hours 06/09/23 06/10/23 06/11/23 06:59 06:59 06:59 Intake Total 70 / 70 Balance 70 / 70 Cumulative 06/10/23 10:59 thru 06/10/23 14:07 Intake Total 70 Balance 70 RT Ventilator Mngmt (Last Documented) Ventilator Ordered Settings Respiratory Rate 23 06/10/23 14:16 Fraction of Inspired Oxygen 40 06/10/23 13:52 Ventilator - PT Measurements Respiratory Rate 23 PG Care Time/CCT Total # of Minutes Spent Total Time Spent with Patient: Total time spent is greater than 50% in coordination of care (as documented) at patient's floor/unit and/or counseling patient: Coding Level of Care Code 43092 INT INP/OBS CARE 3/75MIN Diagnoses Acute respiratory failure with hypoxia and hypercarbia J96.01; J96.02 Acute on chronic congestive heart failure I50.9 Obesity hypoventilation syndrome E66.2
[2023-06-10 15:14] LABS: Appearance Urine Clear (Clear); Bilirubin Urine Negative (Negative); Blood Urine Negative (Negative); Color Urine Yellow; Glucose Urine UA 3+ (Negative); Ketones Urine Negative (Negative); Leukocyte Esterase Urine Negative (Negative); Nitrite Urine Negative (Negative); Protein Urine Negative (Negative); Specific Gravity Urine 1.013 (1.000-1.030); Urobilinogen Urine Negative (Negative)
[2023-06-10] MEDS ORDERED: GLUCAGON FOR INJ 1 MG VIAL SQ PRN (15:14)
[2023-06-10] MEDS ORDERED: CARBOHYDRATES FOR HYPOGLYCEMIA PO PRN (15:14)
[2023-06-10] MEDS ORDERED: GLUCOSE 10 TAB/TUBE PO PRN (15:14)
[2023-06-10] MEDS ORDERED: DEXTROSE 50% 50 ML SYRINGE IV PRN (15:14)
[2023-06-10] MEDS ORDERED: GLUCOSE 40% GEL 15 GM TUBE PO PRN (15:14)
[2023-06-10] MEDS ORDERED: ONDANSETRON INJ 2 MG/ML 2 ML VIAL IV PRN (15:14)
[2023-06-10 15:22] LABS: Ferritin 53.8 ng/ml (8-388)
[2023-06-10] MEDS ORDERED: Patient's ALLERGY Info needs ENTERED SCH (15:30)
[2023-06-10 15:36] LABS: Folate (Folic Acid),Ser orPlas 18.69 ng/ml (>5.38)
[2023-06-10] MEDS: ALBUT/IPRATROP 3MG/0.5MG NEB 3 ML VIAL NEB SCH ×3 (15:48→23:19)
[2023-06-10 16:13] LABS: Base Excess ABG 10.6 mEq/L (-9-1.8); HCO3 ABG 39 mmol/L (19-24); PCO2 ABG 71 mmHg (35-46); PO2 ABG 61 mmHg (80-95); pH ABG 7.35 (7.35-7.45)
[2023-06-10 16:14] LABS: Allen Test Pos (Pos)
[2023-06-10 16:32] LABS: Procalcitonin 0.13 ng/ml (0-0.5)
[2023-06-10 16:38] LABS: Lyme Ab IgG w/WB Rflx Negative (Negative); Lyme Ab IgM w/WB Rflx Negative (Negative)
[2023-06-10] MEDS: INSULIN ASPART PER UNIT CHARGE SC SCH ×2 (17:59→21:13)
[2023-06-10] MEDS: WARFARIN SOD 10 MG TAB PO SCH (18:00)
[2023-06-10] MEDS: guaiFENesin 600 MG TABCR PO SCH (20:09)
[2023-06-10] MEDS: FUROSEMIDE 40 MG/4 ML VIAL IV SCH (20:09)
[2023-06-11] MEDS: ALBUT/IPRATROP 3MG/0.5MG NEB 3 ML VIAL NEB SCH ×6 (03:48→23:01)
[2023-06-11 06:09] LABS: Hematocrit (blood only) 28.6 % (42.0-52.0); Hemoglobin 8.8 g/dl (14.0-18.0); Mean Corpuscular Hemoglobin 27.7 pg (25.0-34.0); Mean Corpuscular Hgb Conc 30.8 g/dL (32.0-36.0); Mean Corpuscular Volume 89.9 fL (80.0-100.0); Mean Platelet Volume 9.7 fL (9.4-12.4); Platelet Count 275 K/uL (130-400); RDW Coefficient of Variation 16.9 % (11.5-14.5); RDW Standard Deviation 56.1 fL (36.4-46.3); Red Blood Count 3.18 M/uL (4.70-6.10)
[2023-06-11 06:29] LABS: BUN Creatinine Ratio 32.9 (10-20); Calcium 9.3 mg/dl (8.6-10.3); Creatinine Clr Calc Pharmacy 113.2 ml/min; Est GFR (African American) 105.2 ml/min; Est GFR (Non-African American) 90.8 ml/min; Potassium 4.4 mmol/L (3.5-5.1)
[2023-06-11 07:17] LABS: Estimated Average Glucose 120 mg/dl; Hemoglobin A1C 5.8 % (4.5-5.6)
--- NOTE | 2023-06-11 07:51 | Cardiology Consultation ---
Date of Consultation June 11, 2023 Assessment & Plan (1) Acute on chronic congestive heart failure: (2) Chronic respiratory failure with hypoxia: (3) Chronic a-fib: (4) Obesity hypoventilation syndrome: Plan See attending software support technician's documentation for further recommendations and plan of care. Supervising Physician Co-Signing Physician Notes Attending Staff: Pt seen and evaluated with AP Staff. Concur with observations and plans 67 yo man presenting with dyspnea Worsening dyspnea Hypoxia noted Started on Lasix 40 mg IV BID Recently moved from [place] Recent admission in [place] with heart failure Moved to [place] to be near daughter Hx: * Morbid Obesity * O2 dependence * Obesity /Hypoventilation * HTN * DM * Chronic Afib - on coumadin * DVT hx ECHOcardiogram 06/10/2023 Poor quality LVEF 50-55% Moderate TR RV - moderate to severe dilation RV pressure + volume overload Severe Pulmonary HTN Est PAP 76 mmHG Urine Protein - negative PCO2 on ABG - 70's Exam: Obese Glasses On O2 via NC JVP to 18 cmH20 S1S2 Distant 2/6 systolic murmur - soft CTA B Mild presacral edema 2+ LE edema to thighs Mild abdominal wall edema Plans: * Severe volume overload * Acute on chronic combined right heart failure * Lasix 40 mg IV given with robust response * Continue with Lasix 40 mg IV BID * Goal is - 2.5 liters overnight * Barron in place * Given underlying hypoxia/hypercarbic respiratory failure, would need aggressive KCL repletion to avoid mount a significant hypochloremic metabolic alkalosis * Start Kdur 40 meq po per day * K+ goal is 4.5-5 * Mag goal >2 * Check magnesium * PT/OT -working to mobilize patient * Supplemental O2 as needed; wean as appropriate * Afib- chronic * Ventricular rate controlled * Coreg 25 mg po BID (OFF @ present with ventricular rates in 60's) - may consider reduced dose of 3.125 mg po BID * On coumadin - INR 1.9 (goal 2-3) - indication is afib * SBP @ goal (100-120 mmHg) * Enalapril 10 mg po per day (OFF) * May consider holding Imdur * Start Aldactone 25 mg po per day * CRISTOFER /CPAP? / Bariatrics? Tiago Torres History of Present Illness Reason for Consultation: CHF; bradycardia Requesting Physician: Ms. Charlotte Lindo Attending Physician: Dr. Brian Parker History of Present Illness Patient is a 67 year old male, presenting to [facility] with complaints of SOB. History is complex, records reviewed. Recently moved from [place] so limited records reviewed. History: 1. Hypertension 2. Obesity 3. DM type II 4. COPD, oxygen dependent 5. Obesity hypoventilatory syndrome 6. Chronic venous insufficiency with LE wounds, history of venous ablations 7. Chronic Afib 7. History of DVT Patient admitted for worsening SOB, fluid retention, hypoxia consistent with acute on chronic respiratory failure, multifactorial. He was admitted earlier this summer in [facility] [place] for similar issues, per reports. He then moved here to live with daughter. He was started on IV furosemide 40 mg BID with aggressive diuresis since admission. Nearly 4-5 L output thus far. Barron in place. Tolerating diuretics. Reports ongoing dyspnea. No chest pain. Ongoing cough noted. No dizziness. Leg wounds wrapped. Followed by wound care. Afib with Slow ventricular rates noted on EKG when admitted. carvedilol placed on hold. HR's currently in the 80's Patient disgruntled at time of evaluation. Understands he needs to be hospitalized for fluid removal. Allergies Allergy/AdvReac Type Severity Reaction Status Date / Time No Known Allergies Allergy Unverified 06/10/23 16:21 Home Medications Medication Instructions Recorded Confirmed Type albuterol sulfate 2.5 mg/3 mL 2.5 mg inhalation Q6H PRN 06/10/23 06/10/23 History (0.083 %) solution for nebulization Shortness Of Breath atorvastatin 40 mg tablet 40 mg PO DAILY 06/10/23 06/10/23 History carvedilol 25 mg tablet 25 mg PO BID 06/10/23 06/10/23 History empagliflozin 10 mg tablet 10 mg PO QAM 06/10/23 06/10/23 History enalapril maleate 10 mg tablet 10 mg PO DAILY 06/10/23 06/10/23 History fluticasone fur. 100 mcg-umeclid 1 inh inhalation DAILY 06/10/23 06/10/23 History 62.5 mcg-vilant 25 mcg inhalat.powder (Trelegy Ellipta) furosemide 40 mg tablet 40 mg PO QAM 06/10/23 06/10/23 History glimepiride 1 mg tablet 1 mg PO QAM 06/10/23 06/10/23 History isosorbide mononitrate 60 mg 60 mg PO QAM 06/10/23 06/10/23 History tablet,extended release 24 hr [id number]-hu-mpddi 300 mcg-K 60 1 tab PO DAILY 06/10/23 06/10/23 History mcg-lycop 600 mcg-lutein 300 mcg tablet (Centrum Silver Men) pantoprazole 40 mg tablet,delayed 40 mg PO DAILY 06/10/23 06/10/23 History release potassium chloride 10 mEq 10 meq PO QAM 06/10/23 06/10/23 History tablet,extended release warfarin 10 mg tablet 10 mg PO DAILY 06/10/23 06/10/23 History Patient History Medical History (Updated 06/10/23 @ 15:02 by Nir Ramos MD) Anticoagulant long-term use Chronic a-fib Chronic congestive heart failure Chronic respiratory failure with hypoxia COPD (chronic obstructive pulmonary disease) DM II (diabetes mellitus, type II), controlled Hx of deep venous thrombosis Hx of smoking O2 dependent Surgical History (Updated 06/10/23 @ 14:15 by Pham Lindo PA-C) No pertinent past surgical history Family History (Updated 06/10/23 @ 14:17 by Pham Lindo PA-C) Other Diabetes Social History (Updated 06/10/23 @ 13:20 by Pham Lindo PA-C) Smoking Status: Former smoker Tobacco Type: Cigarettes Second Hand Exposure: Yes; Do You Dip or Chew Tobacco: No; Tobacco Cessation Education Requested by Patient: No Hx Alcohol Use: Yes Alcohol type: beer Hx Substance Use: No Preferred Language: Turkmen Communication Ability: Effective Hotel Or Motel Receptionist Required: No Beliefs That Will Affect Care: None Current Living Situation: Family Other Information That Helps Us Care for You: No Feels Safe at Home: Yes Safety Concerns: Feels Safe At This Time Assistive Devices: Oxygen - Continuous and Walker Review of Systems Review of Systems: All systems reviewed & are unremarkable except as noted in HPI & below Physical Exam Constitutional: WD/WN, vitals as above + morbidly obese Neck: + thick neck Respiratory: + labored breathing Auscultation: + rales Cardiovascular: Rate/Rhythm: + irregularly irregular Heart Sounds: no murmur Vessels: + JVD Extremities: + edema (2+ b/l edema to hips; sacral edema; legs wrapped) Gastrointestinal (Abdomen): normal bowel sounds, soft, nontender, no hepatosplenomegaly Musculoskeletal: no cyanosis or clubbing, extremities motor strength 5/5 Results & Data Vital Signs (Past 12 Hours) Vital Signs Temp Pulse Pulse Resp BP BP Pulse Ox 06/11/23 07:15 75 22 97 06/11/23 03:48 63 26 H 94 06/11/23 03:48 63 26 H 93 06/11/23 02:16 36.5 C 69 22 122/65 93 06/10/23 22:01 69 06/10/23 23:19 54 L 28 H 94 06/10/23 23:19 54 L 28 H 94 06/10/23 22:56 36.8 C 71 18 103/61 92 O2 Del Method O2 Flow Rate FiO2 06/11/23 07:15 Nasal Cannula 5 06/11/23 03:48 BiPAP 30 06/11/23 03:48 330 06/11/23 02:16 BiPAP 30 06/10/23 22:01 06/10/23 23:19 BiPAP 30 06/10/23 23:19 30 06/10/23 22:56 Nasal Cannula Laboratory Results Cardiac Enzymes 06/10/23 06/10/23 Range/Units 11:30 11:30 AST 17 (13-39) U/L Troponin I High Sens 19.1 (0-20) pg/ml B-Natriuretic Peptide 831 H (0-100) pg/ml Coagulation 06/10/23 06/10/23 Range/Units 11:30 11:30 PT 17.9 H (9.0-12.0) Seconds B-Natriuretic Peptide 831 H (0-100) pg/ml CBC 06/10/23 06/11/23 Range/Units 11:30 05:29 WBC 12.08 H 11.90 H (4.8-10.8) K/ul RBC 3.18 L 3.18 L (4.70-6.10) M/uL Hgb 8.8 L 8.8 L (14.0-18.0) g/dl Hct 29.9 L 28.6 L (42.0-52.0) % Plt Count 269 275 (130-400) K/uL Neut # (Auto) 10.30 H (1.40-6.50) K/uL Lymph # (Auto) 0.63 L (1.2-3.4) K/uL [place] # (Auto) 0.98 H (0.11-0.59) K/uL Eos # (Auto) 0.07 (0-0.50) K/uL Baso # (Auto) 0.05 (0-0.2) K/uL Comprehensive Metabolic Panel 06/10/23 06/11/23 Range/Units 11:30 05:29 Sodium 138 139 (136-145) mmol/L Potassium 4.9 4.4 (3.5-5.1) mmol/L Chloride 97 L 95 L (98-107) mmol/L Carbon Dioxide 38 H 39 H (21-32) mmol/L BUN 26 H 28 H (6-23) mg/dl Creatinine 0.80 0.85 (0.6-1.4) mg/dl Glucose 133 H 122 H (70-99(Fasting)) mg/dl Calcium 9.0 9.3 (8.6-10.3) mg/dl AST 17 (13-39) U/L ALT 11 (7-52) U/L Alkaline Phosphatase 93 (34-104) U/L Total Protein 6.9 (6.0-8.3) gm/dl Albumin 3.7 (3.4-5.0) gm/dl Intake and Output 06/10/23 06/11/23 06/11/23 22:59 06:59 14:59 Intake Total 375 / 545 100 / 545 Output Total 3300 / 4150 850 / 4150 Balance -2925 / -3605 -750 / -3605 Intake: IV 255 / 325 Azithromycin 500 mg In Dextrose 255 / 255 5% 250 ml @ 127.5 mls/hr IV NOW STA Rx#:[id number] Oral 120 / 220 100 / 220 Output: Urine Amount (Catheter) 3300 / 4150 850 / 4150 Barron/Indwelling 3300 / 4150 850 / 4150 Other: Weight 135 kg 135 kg Weight Measurement Method Built in [facility] Diagnostic Findings Telemetry reviewed: afib controlled rates EKG on admission: afib with slow rates, artifact. no acute changes Echo completed during admission 06/10/23: Afib with slow rates during exam. LV is suboptimally visualized. Flattening of the interventricular septum is present consistent with RV pressure/volume overload. The LV wall motion is otherwise grossly normal. EF 50-55% RV dilation moderate to severe, but suboptimally visualized. Mild MR Moderate TR severe pulm hypertension with PA systolic pressure of 76 mmHg no prior studies for comparison Chest X-Ray 06/10/23 11:16 XR chest 1V portable HISTORY: 67 years-old Male Dyspnea acute shortness of breath COMPARISON: None TECHNIQUE: AP view of the chest FINDINGS: Cardiac silhouette is enlarged. Atherosclerosis of the aorta. Pulmonary vascular congestion with interstitial coarsening. No pneumothorax. Right greater than lef t pleural effusions with bibasilar consolidation. Degenerative changes of the shoulders and spine. IMPRESSION: 1. Cardiomegaly with pulmonary edema. 2. Layering pleural effusions with bibasilar consolidation, right greater than left. ACT 112: Negative or not required by law. The above report was generated using voice recognition software. It may contain grammatical, syntax or spelling errors. Electronically signed by: Josiah Sanchez M.D. 06/10/2023 11:48 AM Medications Administered Current Inpatient Medications Acetaminophen (Acetaminophen 325 Mg Tab) 650 mg PO Q4H PRN PRN Reason: Moderate Pain (Scale 4, 5, 6) Stop: 07/10/23 15:13 Albuterol (Albut/Ipratrop 3mg/0.5mg Neb 3 Ml Vial) 3 ml NEB Q4R OMAYRA; Protocol Stop: 07/10/23 15:13 Last Admin: 06/11/23 07:14 Dose: 3 ml Atorvastatin Calcium (Atorvastatin 40 Mg Tab) 40 mg PO DAILY OMAYRA Stop: 07/11/23 08:59 Dextrose (Dextrose 50% 50 Ml Syringe) 25 - 50 ml IV UD PRN; Protocol PRN Reason: Hypoglycemia Protocol Stop: 07/10/23 15:13 Fluticasone Furoate (Fluticasone Furoate 100mcg 14 Puffs/Inhaler) 1 puffs INH DAILY [facility] Stop: 07/11/23 08:59 Furosemide (Furosemide 40 Mg/4 Ml Vial) 40 mg IV BID17 O[facility]YRA Stop: 07/10/23 20:59 Last Admin: 06/10/23 20:09 Dose: 40 mg Glucagon (Glucagon For Inj 1 Mg Vial) 1 mg SQ UD PRN; Protocol PRN Reason: Hypoglycemia Protocol Stop: 07/10/23 15:13 Glucose (Glucose 10 Tab/Tube) 4 - 8 tab PO UD PRN; Protocol PRN Reason: Hypoglycemia Treatment Stop: 07/10/23 15:13 Glucose (Glucose 40% Gel 15 Gm Tube) 15 - 30 gm PO UD PRN; Protocol PRN Reason: Hypoglycemia Protocol Stop: 07/10/23 15:13 Guaifenesin (Guaifenesin 600 Mg Tabcr) 1,200 mg PO Q12 O[facility]YRA Stop: 07/10/23 20:59 Last Admin: 06/10/23 20:09 Dose: 1,200 mg Ceftriaxone Sodium 2,000 mg/ (Dextrose) 70 mls @ 100 mls/hr IV DAILY [facility]; Protocol Stop: 06/17/23 08:59 Azithromycin 250 mg/ Dextrose 252.5 mls @ 125 mls/hr IV QAM [facility] Stop: 06/14/23 11:02 Insulin Aspart (Insulin Aspart Per Unit Charge) 0 units SC ACHS [facility] Stop: 07/10/23 16:29 Last Admin: 06/10/23 21:13 Dose: 2 units Isosorbide Mononitrate (Isosorbide [place] Extended Rel 60 Mg Tabcr) 60 mg PO QAM [facility] Stop: 07/11/23 08:59 Miscellaneous (Carbohydrates For Hypoglycemia ) 15 - 30 gm PO UD PRN PRN Reason: Hypoglycemia Protocol Stop: 07/10/23 15:13 Ondansetron HCl (Ondansetron Inj 2 Mg/Ml 2 Ml Vial) 4 mg IV Q4H PRN PRN Reason: Nausea And Vomiting Stop: 07/10/23 15:13 Pantoprazole Sodium (Pantoprazole 40 Mg Tab) 40 mg PO DAILY [facility] Stop: 07/11/23 08:59 Umeclidinium/Vilanterol (Umeclidinium/Vilanterol 62.5/25mcg 7 Puffs/Inhaler) 1 puffs INH DAILY [facility] Stop: 07/11/23 08:59 Warfarin Sodium (Warfarin Sod 10 Mg Tab) 10 mg PO DAILY@1600 [facility] Stop: 07/10/23 16:29 Last Admin: 06/10/23 18:00 Dose: 10 mg
[2023-06-11] MEDS: guaiFENesin 600 MG TABCR PO SCH ×2 (07:52→20:16)
[2023-06-11] MEDS: PANTOprazole 40 MG TAB PO SCH (07:52)
[2023-06-11] MEDS: ATORVASTATIN 40 MG TAB PO SCH (07:52)
[2023-06-11] MEDS: UMECLIDINIUM/VILANTEROL 62.5/25MCG 7 PUFFS/INHALER INH SCH (07:53)
[2023-06-11] MEDS: FLUTICASONE FUROATE 100MCG 14 PUFFS/INHALER INH SCH (07:54)
[2023-06-11] MEDS: FUROSEMIDE 40 MG/4 ML VIAL IV SCH ×2 (07:55→17:38)
[2023-06-11] MEDS: INSULIN ASPART PER UNIT CHARGE SC SCH ×4 (08:09→20:17)
[2023-06-11] MEDS ORDERED: cefTRIAXone SODIUM 2,000 MG in DEXTROSE 5% 50 ML IV SCH (09:00)
[2023-06-11] MEDS ORDERED: NON-FORMULARY MEDICATION (Fluticasone-Umeclidin-Vilanter [Trelegy Ellipta] 100-62.5-25 mcg INH SCH (09:00)
[2023-06-11] MEDS ORDERED: AZITHROMYCIN 250 MG in DEXTROSE 5% 250 ML IV SCH (09:00)
[2023-06-11] MEDS ORDERED: ISOSORBIDE MONO EXTENDED REL 60 MG TABCR PO SCH (09:00)
[2023-06-11 11:01] LABS: INR 1.9 (0.9-1.1); Prothrombin Time 19.6 Seconds (9.0-12.0)
--- NOTE | 2023-06-11 11:39 | Pulmonology Progress Note ---
Date of Service June 11, 2023 Assessment & Plan (1) Acute respiratory failure with hypoxia and hypercarbia: (2) Acute on chronic congestive heart failure: (3) Obesity hypoventilation syndrome: Plan Impression: 67-year-old male with morbid obesity and likely obesity hypoventilat ion syndrome. His bicarb is chronically elevated but he does have an acidemic pH and likely some acute on chronic elevation of his serum bicarb. It is unclear whether he actually has COPD or not. His x-ray is difficult if impossible to determine whether or not superimposed pneumonia is present Recommendations: 1. Acute on chronic hypercarbic respiratory failure: Suspect this is obesity hypoventilation syndrome. Outpatient PFTs and polysomnography recommended. For now would continue BiPAP at 16/10. Patient did very well with BiPAP last evening and has intentions to continue to use it moving forward. He has never been evaluated for sleep apnea. He does report that he carries a diagnosis of COPD and uses Trelegy and an albuterol inhaler at home. He is uncertain of his last pulmonary function testing. 2. Agree with work-up for congestive heart failure. Echocardiogram consistent with severe pulmonary hypertension. Likely Group 2-3. Agree with aggressive diuresis. Will defer to cardiology. 3. Ultimately the patient requires weight loss for optimization of his medical conditions. 4. Reported history of COPD. Slight inspiratory wheezes noted on exam today. Continue with current inhaler regime. Can use as needed bronchodilators. Outpatient PFTs recommended. Thank you for allowing us to participate in the care of this patient. He appears to be improving clinically at this time. Admission and Anticipated Discharge Date Admission Date: June 10, 2023 Subjective Patient seen and evaluated at bedside. He reports that his breathing is much better at this time. He states that he used the BiPAP last night and has intentions to continue to use it as he slept well with it in place. Patient is continuing diuresis and is -4.2 L since hospitalization. Review of Systems Review of Systems: Unchanged from admission. Physical Exam Physical Exam: VITAL SIGNS - Vital signs and nursing notes were reviewed. GENERAL - 67-year-old male appearing his stated age who is in no acute distress. Communicates well with provider and answers questions appropriately. LUNGS -diminished breath sounds with bibasilar Rales RIGHT greater than left and slight inspiratory wheeze appreciated. CARDIAC - RRR with S1/S2. No murmur, rubs, or gallops appreciated. EXTREMITIES -impressive edema noted of the bilateral lower extremities. PSYCH - A&Ox3 and cooperates fully with examiner. Pt is very pleasant and interacts well with examiner. Results & Data Results & Data Vital Signs (Past 12 Hours) Vital Signs Temp Pulse Pulse Pulse Resp BP Pulse Ox 06/11/23 11:23 76 22 95 06/11/23 07:59 36.7 C 66 16 109/70 95 06/11/23 07:15 75 22 97 06/11/23 03:48 63 26 H 94 06/11/23 03:48 63 26 H 93 06/11/23 02:16 36.5 C 69 22 122/65 93 O2 Del Method O2 Flow Rate FiO2 06/11/23 11:23 Nasal Cannula 4 06/11/23 07:59 Nasal Cannula 06/11/23 07:15 Nasal Cannula 5 06/11/23 03:48 BiPAP 30 06/11/23 03:48 330 06/11/23 02:16 BiPAP 30 PG Care Time/CCT Total # of Minutes Spent Total Time Spent with Patient: Total time spent is greater than 50% in coordination of care (as documented) at patient's floor/unit and/or counseling patient: Coding Level of Care Code 29004 SUB INP/OBS CARE 2/35MIN Diagnoses Acute respiratory failure with hypoxia and hypercarbia J96.01; J96.02 Acute on chronic congestive heart failure I50.9 Obesity hypoventilation syndrome E66.2
[2023-06-11] MEDS ORDERED: SPIRONOLACTONE 25 MG TAB PO ONE (14:30)
[2023-06-11] MEDS ORDERED: POTASSIUM CHLORIDE CRTAB 20 MEQ TABCR PO ONE (14:30)
--- NOTE | 2023-06-11 14:36 | Hospitalist Progress Note ---
Date of Service June 11, 2023 Assessment & Plan (1) Acute respiratory failure with hypoxia and hypercarbia: (2) Obesity hypoventilation syndrome: (3) Acute on chronic congestive heart failure: Plan Acute respiratory failure with hypoxia and hypercarbia Multifactorial secondary to acute on chronic diastolic heart failure, obesity hypoventilation syndrome, could have obstructive sleep apnea, severe pulm HTN, rhinovirus infection, COPD --CXR:Cardiomegaly with pulmonary edema. Layering pleural effusions with bibasilar consolidation, right greater than left. --ECHO: Flattening of the interventricular septum is present consistent with right ventricular pressure/volume overload, left ventricular wall motion is grossly normal. EF 50 to 55%. Right ventricle appears to be dilated to a moderate to severe degree. Mild mitral regurgitation. Moderate tricuspid regurgitation. Severe pulmonary hypertension is present. -- Serological test positive for Entero/Rhinovirus --Normal procalcitonin --Blood cultures pending Continue IV diuresis, monitor volume status Replete electrolytes as needed Continue home inhalers Will need outpatient PFTs, polysomnography Continue BiPAP at bedtime for now Appreciate cardiology, pulmonology input Started on Aldactone 25 mg daily Hold Imdur, lisinopril for now due to low BP Empirically on IV antibiotics Needs follow-up with cardiology, pulmonology as outpatient Nebs as needed Chronic atrial fibrillation Continue carvedilol 3.125 mg twice a day (dose decreased due to low BP) On Coumadin for anticoagulation Monitor INR 1.9 today Normocytic anemia ? Unknown baseline Hemoglobin 8.8 Currently no bleeding issues Monitor DM II HbA1c 5.8 ? Reliability of HbA1c given anemia Hold p.o. meds Continue insulin while hospitalized Monitor bgS Morbid obesity BMI 46 GERD Continue PPI Hyperlipidemia Continue statin DVT Px: Coumadin CODE STATUS Full code Disposition PT OT prior to discharge Admission and Anticipated Discharge Date Admission Date: June 10, 2023 Subjective Patient is seen and examined at bedside States having dyspnea on exertion Also reports dizziness intermittently Reports cough with expectoration Denies any chest pain, nausea, vomiting, abdominal pain Discussed with patient's daughter at bedside No other complaints Review of Systems Review of Systems: All systems reviewed & are unremarkable except as noted in Subjective Physical Exam Physical Exam: Physical Exam: Vitals signs as noted above General Appearance:Morbidly Obese, no apparent distress Head: normocephalic, Atraumatic Eyes: normal inspection, EOMI Neck: supple, Trachea midline Respiratory/Chest: Decreased breath sounds, CTA, No accessory muscle use Cardiovascular: Irregularly irregular, No murmur Abdomen/GI:Soft, Non tender, Bowel sounds present Extremities/Musculoskeletal:normal inspection, 2+ pedal edema Neurologic/Psych:AAOX3, grossly no focal neurological deficits Skin: normal color, warm Results & Data Results & Data Vital Signs (Past 12 Hours) Vital Signs Temp Pulse Pulse Pulse Resp BP Pulse Ox 06/11/23 12:04 36.7 C 70 16 107/60 95 06/11/23 11:23 76 22 95 06/11/23 07:59 36.7 C 66 16 109/70 95 06/11/23 07:15 75 22 97 06/11/23 03:48 63 26 H 94 06/11/23 03:48 63 26 H 93 06/11/23 02:16 36.5 C 69 22 122/65 93 O2 Del Method O2 Flow Rate FiO2 06/11/23 12:04 Nasal Cannula 06/11/23 11:23 Nasal Cannula 4 06/11/23 07:59 Nasal Cannula 06/11/23 07:15 Nasal Cannula 5 06/11/23 03:48 BiPAP 30 06/11/23 03:48 330 06/11/23 02:16 BiPAP 30 Laboratory Results Short CBC 06/11/23 Range/Units 05:29 WBC 11.90 H (4.8-10.8) K/ul Hgb 8.8 L (14.0-18.0) g/dl Hct 28.6 L (42.0-52.0) % Plt Count 275 (130-400) K/uL BMP 06/11/23 05:29 Sodium 139 Potassium 4.4 Chloride 95 L Carbon Dioxide 39 H BUN 28 H Creatinine 0.85 Glucose 122 H Calcium 9.3 Urine 06/10/23 Range/Units Unknown Urine Color Yellow Urine Appearance Clear (Clear) Urine pH 5.0 (4.5-7.5) Ur Specific [place] 1.013 (1.000-1.030) Urine Protein Negative (Negative) Urine Glucose (UA) 3+ H (Negative)
[2023-06-11 15:09] LABS: BUN Creatinine Ratio 34.5 (10-20); Calcium 9.2 mg/dl (8.6-10.3); Creatinine Clr Calc Pharmacy 114.6 ml/min; Est GFR (African American) 105.7 ml/min; Est GFR (Non-African American) 91.2 ml/min; Magnesium 1.8 mg/dl (1.7-2.4); Potassium 4.3 mmol/L (3.5-5.1)
--- NOTE | 2023-06-11 15:53 | Electrocardiogram Report ---
Test Reason : Blood Pressure : / mmHG Vent. Rate : 054 BPM Atrial Rate : 000 BPM P-R Int : 000 ms QRS Dur : 092 ms QT Int : 402 ms P-R-T Axes : 000 016 024 degrees QTc Int : 381 ms Atrial fibrillation with slow ventricular response Abnormal ECG No previous ECGs available Confirmed by Jac Blas ([id number]) on 06/11/2023 3:53:40 PM Referred By: REFERRED SELF Confirmed By:Jac Blas
[2023-06-11] MEDS: carvediloL 3.125 MG TAB PO SCH (17:32)
[2023-06-11] MEDS: WARFARIN SOD 10 MG TAB PO SCH (17:39)
[2023-06-12] MEDS: ALBUT/IPRATROP 3MG/0.5MG NEB 3 ML VIAL NEB SCH ×7 (03:27→22:46)
[2023-06-12 06:02] LABS: Hematocrit (blood only) 28.4 % (42.0-52.0); Hemoglobin 8.7 g/dl (14.0-18.0); Mean Corpuscular Hemoglobin 27.7 pg (25.0-34.0); Mean Corpuscular Hgb Conc 30.6 g/dL (32.0-36.0); Mean Corpuscular Volume 90.4 fL (80.0-100.0); Mean Platelet Volume 9.4 fL (9.4-12.4); Platelet Count 261 K/uL (130-400); RDW Coefficient of Variation 17.2 % (11.5-14.5); RDW Standard Deviation 57.1 fL (36.4-46.3); Red Blood Count 3.14 M/uL (4.70-6.10); White Blood Count 9.15 K/ul (4.8-10.8)
[2023-06-12 06:04] LABS: Base Excess VBG 18.5 mEq/L; HCO3 VBG 48 mmol/L; PCO2 VBG 77 mmHg (38-50); PO2 VBG 61 mmHg
[2023-06-12 06:24] LABS: BUN Creatinine Ratio 39.5 (10-20); Calcium 9.2 mg/dl (8.6-10.3); Creatinine Clr Calc Pharmacy 126.7 ml/min; Est GFR (African American) 110.2 ml/min; Est GFR (Non-African American) 95.1 ml/min; Magnesium 1.7 mg/dl (1.7-2.4); Potassium 4.2 mmol/L (3.5-5.1)
[2023-06-12 06:32] LABS: INR 1.8 (0.9-1.1)
--- NOTE | 2023-06-12 07:57 | Cardiology Progress Note ---
Date of Service June 12, 2023 Assessment & Plan (1) Acute on chronic congestive heart failure: (2) Chronic respiratory failure with hypoxia: (3) Chronic a-fib: (4) Obesity hypoventilation syndrome: Plan See attending produce wrapper's documentation for further recommendations and plan of care. Admission and Anticipated Discharge Date Admission Date: June 10, 2023 Supervising Physician Co-Signing Physician Notes Attending Staff: Pt seen and evaluated with AP Staff. Concur with observations and plans 67 yo man presenting with dyspnea Worsening dyspnea Hypoxia noted Started on Lasix 40 mg IV BID Recently moved from [place] Recent admission in [place] with heart failure Moved to [place] to be near daughter Hx: * Morbid Obesity * O2 dependence * Obesity /Hypoventilation * HTN * DM * Chronic Afib - on coumadin * DVT hx ECHOcardiogram 06/10/2023 Poor quality LVEF 50-55% Moderate TR RV - moderate to severe dilation RV pressure + volume overload Severe Pulmonary HTN Est PAP 76 mmHG Urine Protein - negative PCO2 on ABG - 70's Plans: * Severe volume overload * Acute on chronic combined right heart failure * Lasix 80 IV x 1 * Start Lasix drip @ 5 mg/hr * BID electrolyte check * Goal is - 3.0 liters overnight * Barron in place * Given underlying hypoxia/hypercarbic respiratory failure, would need aggressive KCL repletion to avoid mount a significant hypochloremic metabolic alkalosis * Continue Kdur 40 meq po per day * K+ goal is 4.5-5 * Mag goal >2 * Mag 1.7 * 4 gm Magnesium Sulfate IV * PT/OT -working to mobilize patient * Supplemental O2 as needed; wean as appropriate * Afib- chronic * Ventricular rate controlled * Continue Coreg 3.125 mg po BID (Home dose was 25 mg po BID) * On coumadin - adjust dosing - INR 1.8 (goal 2-3) - indication is afib * SBP @ goal (100-120 mmHg) * Enalapril 10 mg po per day (OFF) * May consider holding Imdur * Start Aldactone 25 mg po per day * CRISTOFER /CPAP? / Bariatrics? Tiago Torres Subjective Events overnight: * No events reported * No telemetry events reported Subjective: * No complaints * Breathing improved Review of Systems Review of Systems: All systems reviewed & are unremarkable except as noted in HPI & below Physical Exam Physical Exam: Exam: Obese Glasses On O2 via NC JVP to 16 cmH20 S1S2 Distant 2/6 systolic murmur - soft CTA B Mild presacral edema 2+ LE edema to thighs Mild abdominal wall edema Results & Data Vital Signs (Past 12 Hours) Vital Signs Temp Pulse Pulse Resp BP BP Pulse Ox 06/12/23 07:28 36.9 C 70 22 128/72 96 06/12/23 07:23 70 22 93 06/12/23 03:28 59 L 29 H 96 06/12/23 03:28 52 L 29 H 96 06/12/23 02:49 36.7 C 61 18 127/71 95 06/11/23 23:48 50 L 28 H 94 06/11/23 23:45 50 L 30 H 94 06/11/23 22:00 67 06/11/23 23:07 36.8 C 65 18 120/75 92 06/11/23 20:30 O2 Del Method O2 Flow Rate FiO2 06/12/23 07:28 Nasal Cannula 06/12/23 07:23 Nasal Cannula 5 06/12/23 03:28 BiPAP 30 06/12/23 03:28 30 06/12/23 02:49 BiPAP 06/11/23 23:48 BiPAP 06/11/23 23:45 30 06/11/23 22:00 06/11/23 23:07 Nasal Cannula 06/11/23 20:30 BiPAP 30 Laboratory Results Coagulation 06/12/23 Range/Units 05:34 PT 19.0 H (9.0-12.0) Seconds CBC 06/12/23 Range/Units 05:34 WBC 9.15 (4.8-10.8) K/ul RBC 3.14 L (4.70-6.10) M/uL Hgb 8.7 L (14.0-18.0) g/dl Hct 28.4 L (42.0-52.0) % Plt Count 261 (130-400) K/uL Comprehensive Metabolic Panel 06/11/23 06/12/23 Range/Units 14:35 05:34 Sodium 139 139 (136-145) mmol/L Potassium 4.3 4.2 (3.5-5.1) mmol/L Chloride 93 L 94 L (98-107) mmol/L Carbon Dioxide 40 H 42 H* (21-32) mmol/L BUN 29 H 30 H (6-23) mg/dl Creatinine 0.84 0.76 (0.6-1.4) mg/dl Glucose 82 83 (70-99(Fasting)) mg/dl Calcium 9.2 9.2 (8.6-10.3) mg/dl Intake and Output 06/11/23 06/12/23 06/12/23 22:59 06:59 14:59 Intake Total 120 / 782.5 100 / 782.5 Output Total 675 / 3625 1400 / 3625 Balance -555 / -2842.5 -1300 / -2842.5 Intake: Oral 120 / 460 100 / 460 Output: Urine Amount (Catheter) 675 / 3625 1400 / 3625 Barron/Indwelling 675 / 3625 1400 / 3625 Other: Other Intake Source sips Medications Administered Current Inpatient Medications Acetaminophen (Acetaminophen 325 Mg Tab) 650 mg PO Q4H PRN PRN Reason: Moderate Pain (Scale 4, 5, 6) Stop: 07/10/23 15:13 Albuterol (Albut/Ipratrop 3mg/0.5mg Neb 3 Ml Vial) 3 ml NEB Q4R OMAYRA; Protocol Stop: 07/10/23 15:13 Last Admin: 06/12/23 10:50 Dose: 3 ml Atorvastatin Calcium (Atorvastatin 40 Mg Tab) 40 mg PO DAILY OMAYRA Stop: 07/11/23 08:59 Last Admin: 06/12/23 09:02 Dose: 40 mg Carvedilol (Carvedilol 3.125 Mg Tab) 3.125 mg PO BIDM OMAYRA Stop: 07/11/23 16:59 Last Admin: 06/12/23 09:01 Dose: 3.125 mg Dextrose (Dextrose 50% 50 Ml Syringe) 25 - 50 ml IV UD PRN; Protocol PRN Reason: Hypoglycemia Protocol Stop: 07/10/23 15:13 Fluticasone Furoate (Fluticasone Furoate 100mcg 14 Puffs/Inhaler) 1 puffs INH DAILY OMAYRA Stop: 07/11/23 08:59 Last Admin: 06/12/23 09:02 Dose: 1 puffs Furosemide (Furosemide 40 Mg/4 Ml Vial) 40 mg IV [id number] OMAYRA Stop: 07/12/23 13:59 Glucagon (Glucagon For Inj 1 Mg Vial) 1 mg SQ UD PRN; Protocol PRN Reason: Hypoglycemia Protocol Stop: 07/10/23 15:13 Glucose (Glucose 10 Tab/Tube) 4 - 8 tab PO UD PRN; Protocol PRN Reason: Hypoglycemia Treatment Stop: 07/10/23 15:13 Glucose (Glucose 40% Gel 15 Gm Tube) 15 - 30 gm PO UD PRN; Protocol PRN Reason: Hypoglycemia Protocol Stop: 07/10/23 15:13 Guaifenesin (Guaifenesin 600 Mg Tabcr) 1,200 mg PO Q12 OMAYRA Stop: 07/10/23 20:59 Last Admin: 06/12/23 09:02 Dose: 1,200 mg Insulin Aspart (Insulin Aspart Per Unit Charge) 0 units SC ACHS [facility] Stop: 07/10/23 16:29 Last Admin: 06/12/23 09:44 Dose: 8 units Isosorbide Mononitrate (Isosorbide Robertson Extended Rel 60 Mg Tabcr) 60 mg PO QAM [facility] Stop: 07/11/23 08:59 Last Admin: 06/11/23 07:52 Dose: 60 mg Miscellaneous (Carbohydrates For Hypoglycemia ) 15 - 30 gm PO UD PRN PRN Reason: Hypoglycemia Protocol Stop: 07/10/23 15:13 Ondansetron HCl (Ondansetron Inj 2 Mg/Ml 2 Ml Vial) 4 mg IV Q4H PRN PRN Reason: Nausea And Vomiting Stop: 07/10/23 15:13 Pantoprazole Sodium (Pantoprazole 40 Mg Tab) 40 mg PO DAILY [facility] Stop: 07/11/23 08:59 Last Admin: 06/12/23 09:02 Dose: 40 mg Spironolactone (Spironolactone 25 Mg Tab) 25 mg PO QAM [facility] Stop: 07/12/23 08:59 Last Admin: 06/12/23 09:01 Dose: 25 mg Umeclidinium/Vilanterol (Umeclidinium/Vilanterol 62.5/25mcg 7 Puffs/Inhaler) 1 puffs INH DAILY [facility] Stop: 07/11/23 08:59 Last Admin: 06/12/23 09:02 Dose: 1 puffs Warfarin Sodium (Warfarin Sod 10 Mg Tab) 10 mg PO DAILY@1600 [facility] Stop: 07/10/23 16:29 Last Admin: 06/11/23 17:39 Dose: 10 mg
--- NOTE | 2023-06-12 08:17 | Pulmonology Progress Note ---
Date of Service June 12, 2023 Assessment & Plan (1) Acute respiratory failure with hypoxia and hypercarbia: (2) Acute on chronic congestive heart failure: (3) Obesity hypoventilation syndrome: Plan Impression: 67-year-old male with morbid obesity and likely obesity hypoventilat ion syndrome. It is unclear whether he actually has COPD or not. His x-ray is difficult if impossible to determine whether or not superimposed pneumonia is present Recommendations: 1. Acute on chronic hypercarbic respiratory failure: Suspect this is obesity hypoventilation syndrome. Outpatient PFTs and polysomnography recommended. His blood gas now shows a normal pH with a baseline CO2 in the 70s which is likely where he resides. Would recommend continuing BiPAP 16/10 when sleeping and nig htly. Recommend consulting case management to see if the patient can get set up with BiPAP to go home with as his sleep studies will likely not be accomplished for several weeks. 2. 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 Diuresis so far with improvement in clinical symptoms without elevation in BUN and creatinine. Would continue diuresis and follow BUN and creatinine. No indication for acetazolamide. 3. Ultimately the patient requires weight loss for optimization of his medical conditions. Outpatient bariatric medicine evaluation recommended 4. Reported history of COPD. Continue Anoro/Flovent. No indication for steroids. Will need outpatient PFTs 5. Patient's procalcitonin was negative. His white blood cell count is normal. He has been afebrile. Do not think he has underlying pneumonia and we will discontinue his antibiotics. 6. The patient needs to get out of bed to chair and ambulate. Continue physical therapy. May need acute rehab but apparently the patient has declined. Thank you for allowing us to participate in the care of this patient. He appears to be improving clinically at this time. Admission and Anticipated Discharge Date Admission Date: June 10, 2023 Subjective Patient seen and examined. EMR reviewed. The patient is awake alert and off BiPAP. He states he used it all night last night. He feels it is improving his respiratory symptoms and he feels better. He is also had improvement in his lower extremity edema. Review of Systems Review of Systems: All systems reviewed & are unremarkable except as noted in Subjective Physical Exam Constitutional: + morbidly obese; no acute distress Neck: trachea midline, no thyromegaly Respiratory: normal respiratory effort, lungs clear to auscultation Cardiovascular: Rate/Rhythm: regular rate Heart Sounds: normal S1 and normal S2; no murmur Extremities: + edema Gastrointestinal (Abdomen): normal bowel sounds, soft, nontender, no hepatosplenomegaly Musculoskeletal: Extremities: extremities normal to inspection Skin: no rashes, warm and dry Lymphatic: no cervical lymphadenopathy Results & Data Results & Data Vital Signs (Past 12 Hours) Vital Signs Temp Pulse Pulse Resp BP BP Pulse Ox 06/12/23 07:28 36.9 C 70 22 128/72 96 06/12/23 07:23 70 22 93 06/12/23 03:28 59 L 29 H 96 06/12/23 03:28 52 L 29 H 96 06/12/23 02:49 36.7 C 61 18 127/71 95 06/11/23 23:48 50 L 28 H 94 06/11/23 23:45 50 L 30 H 94 06/11/23 22:00 67 06/11/23 23:07 36.8 C 65 18 120/75 92 06/11/23 20:30 O2 Del Method O2 Flow Rate FiO2 06/12/23 07:28 Nasal Cannula 06/12/23 07:23 Nasal Cannula 5 06/12/23 03:28 BiPAP 30 06/12/23 03:28 30 06/12/23 02:49 BiPAP 06/11/23 23:48 BiPAP 06/11/23 23:45 30 06/11/23 22:00 06/11/23 23:07 Nasal Cannula 06/11/23 20:30 BiPAP 30 I/O: 6.4 L negative since admission Laboratory Results 06/12/23 05:34 06/12/23 05:34 06/10/23 06/10/23 06/12/23 12:40 15:57 05:39 ABG pH 7.35 ABG pCO2 71 H ABG pO2 61 L ABG HCO3 39 H ABG O2 Saturation 93.0 ABG Base Excess 10.6 H VBG pH 7.25 L 7.40 VBG pCO2 86 H 77 H VBG pO2 50 61 VBG HCO3 38 48 VBG O2 Saturation 82.8 88.0 VBG Base Excess 8.6 18.5 PG Care Time/CCT Total # of Minutes Spent Total Time Spent with Patient: Total time spent is greater than 50% in coordination of care (as documented) at patient's floor/unit and/or counseling patient: Coding Level of Care Code 14998 SUB INP/OBS CARE MIN Diagnoses Acute respiratory failure with hypoxia and hypercarbia J96.01; J96.02 Acute on chronic congestive heart failure I50.9 Obesity hypoventilation syndrome E66.2
[2023-06-12] MEDS ORDERED: POTASSIUM CHLORIDE CRTAB 20 MEQ TABCR PO SCH (09:00)
[2023-06-12] MEDS: carvediloL 3.125 MG TAB PO SCH ×2 (09:01→18:12)
[2023-06-12] MEDS: SPIRONOLACTONE 25 MG TAB PO SCH (09:01)
[2023-06-12] MEDS: UMECLIDINIUM/VILANTEROL 62.5/25MCG 7 PUFFS/INHALER INH SCH (09:02)
[2023-06-12] MEDS: FLUTICASONE FUROATE 100MCG 14 PUFFS/INHALER INH SCH (09:02)
[2023-06-12] MEDS: ATORVASTATIN 40 MG TAB PO SCH (09:02)
[2023-06-12] MEDS: PANTOprazole 40 MG TAB PO SCH (09:02)
[2023-06-12] MEDS: guaiFENesin 600 MG TABCR PO SCH ×2 (09:02→20:19)
[2023-06-12] MEDS: FUROSEMIDE 40 MG/4 ML VIAL IV SCH (09:02)
[2023-06-12] MEDS: INSULIN ASPART PER UNIT CHARGE SC SCH ×4 (09:44→20:26)
[2023-06-12] MEDS ORDERED: FUROSEMIDE 40 MG/4 ML VIAL IV SCH (14:00)
[2023-06-12] MEDS ORDERED: FUROSEMIDE 40 MG/4 ML VIAL IV ONE (14:59)
--- NOTE | 2023-06-12 16:23 | Hospitalist Progress Note ---
Date of Service June 12, 2023 Assessment & Plan (1) Acute respiratory failure with hypoxia and hypercarbia: (2) Obesity hypoventilation syndrome: (3) Acute on chronic congestive heart failure: Plan Acute respiratory failure with hypoxia and hypercarbia Multifactorial secondary to acute on chronic diastolic heart failure, obesity hypoventilation syndrome, could have obstructive sleep apnea, severe pulm HTN, rhinovirus infection, COPD --CXR on admission personally reviewed:Cardiomegaly with pulmonary edema. Layering pleural effusions with bibasilar consolidation, right greater than left. --ECHO: Flattening of the interventricular septum is present consistent with right ventricular pressure/volume overload, left ventricular wall motion is grossly normal. EF 50 to 55%. Right ventricle appears to be dilated to a moderate to severe degree. Mild mitral regurgitation. Moderate tricuspid regurgitation. Severe pulmonary hypertension is present. -- Serological test positive for Entero/Rhinovirus --Normal procalcitonin --Blood cultures no growth till Currently on IV diuretics with Lasix at 5 mg/h Replete electrolytes as needed Continue home inhalers Will need outpatient PFTs, polysomnography Continue BiPAP at bedtime for now as per pulmonology. Appreciate cardiology, pulmonology input on Aldactone 25 mg daily Hold Imdur, lisinopril for now due to low BP Chronic atrial fibrillation Continue carvedilol 3.125 mg twice a day (dose decreased due to low BP) On Coumadin for anticoagulation Monitor INR 1.9 today Normocytic anemia ? Unknown baseline Hemoglobin 8.7 Currently no bleeding issues Monitor DM II HbA1c 5.8 ? Reliability of HbA1c given anemia Hold p.o. meds Continue insulin while hospitalized Monitor bgS Morbid obesity BMI 46 GERD Continue PPI Hyperlipidemia Continue statin DVT Px: Coumadin CODE STATUS Full code Disposition PT OT prior to discharge Time spent evaluating patient, direct bedside care, chart review, placing orders, interpretation of diagnostic studies, discussion with consultants, patient, and family members, as well as other required patient management activities is 60 minutes. Please note the above document was generated using voice recognition software. It may contain grammatical, syntax or spelling errors. Any formal questions or concerns about the content, text or information contained within the body of this dictation should be directly addressed to the provider for clarification Admission and Anticipated Discharge Date Admission Date: June 10, 2023 Subjective Patient seen and examined at bedside. He is currently on BiPAP; appears comfortable. Barron in place with clear urine Review of Systems Review of Systems: All systems reviewed & are unremarkable except as noted in Subjective Physical Exam Physical Exam: Physical Exam: Vitals signs as noted above General Appearance:Morbidly Obese, no apparent distress Head: normocephalic, Atraumatic Eyes: normal inspection, EOMI Neck: supple, Trachea midline Respiratory/Chest: Decreased breath sounds, CTA, No accessory muscle use Cardiovascular: Irregularly irregular, No murmur Abdomen/GI:Soft, Non tender, Bowel sounds present Extremities/Musculoskeletal:normal inspection, 2+ pedal edema Neurologic/Psych:AAOX3, grossly no focal neurological deficits Skin: normal color, warm Results & Data Results & Data Vital Signs (Past 12 Hours) Vital Signs Temp Pulse Pulse Resp BP Pulse Ox O2 Del Method 06/12/23 15:32 06/12/23 15:25 36.6 C 69 20 129/72 93 Nasal Cannula 06/12/23 08:00 BiPAP 06/12/23 14:38 66 22 97 Nasal Cannula 06/12/23 11:07 36.7 C 79 20 122/60 96 BiPAP 06/12/23 10:50 62 31 H 95 BiPAP 06/12/23 10:48 62 31 H 95 06/12/23 09:22 71 27 H 94 BiPAP 06/12/23 09:21 71 27 H 94 06/12/23 07:28 36.9 C 70 22 128/72 96 Nasal Cannula 06/12/23 07:23 70 22 93 Nasal Cannula O2 Flow Rate FiO2 06/12/23 15:32 5 06/12/23 15:25 5 06/12/23 08:00 30 06/12/23 14:38 6 06/12/23 11:07 06/12/23 10:50 30 06/12/23 10:48 30 06/12/23 09:22 30 06/12/23 09:21 30 06/12/23 07:28 06/12/23 07:23 5 Laboratory Results Laboratory Results WBC 9.15 K/ul (4.8-10.8) 06/12/23 05:34 RBC 3.14 M/uL (4.70-6.10) L 06/12/23 05:34 Hgb 8.7 g/dl (14.0-18.0) L 06/12/23 05:34 Hct 28.4 % (42.0-52.0) L 06/12/23 05:34 MCV 90.4 fL (80.0-100.0) 06/12/23 05:34 MCH 27.7 pg (25.0-34.0) 06/12/23 05:34 MCHC 30.6 g/dL (32.0-36.0) L 06/12/23 05:34 RDW Std Deviation 57.1 fL (36.4-46.3) H 06/12/23 05:34 RDW Coeff of Dhaval 17.2 % (11.5-14.5) H 06/12/23 05:34 Plt Count 261 K/uL (130-400) 06/12/23 05:34 MPV 9.4 fL (9.4-12.4) 06/12/23 05:34 Immature Gran % (Auto) 0.4 % 06/10/23 11:30 Neut % (Auto) 85.3 % 06/10/23 11:30 Lymph % (Auto) 5.2 % 06/10/23 11:30 [place] % (Auto) 8.1 % 06/10/23 11:30 Eos % (Auto) 0.6 % 06/10/23 11:30 Baso % (Auto) 0.4 % 06/10/23 11:30 Neut # (Auto) 10.30 K/uL (1.40-6.50) H 06/10/23 11:30 Lymph # (Auto) 0.63 K/uL (1.2-3.4) L 06/10/23 11:30 [place] # (Auto) 0.98 K/uL (0.11-0.59) H 06/10/23 11:30 Eos # (Auto) 0.07 K/uL (0-0.50) 06/10/23 11:30 Baso # (Auto) 0.05 K/uL (0-0.2) 06/10/23 11:30 Immature Gran # (Auto) 0.05 K/uL (0.01-0.20) 06/10/23 11:30 PT 19.0 Seconds (9.0-12.0) H 06/12/23 05:34 INR 1.8 (0.9-1.1) H 06/12/23 05:34 ABG pH 7.35 (7.35-7.45) 06/10/23 15:57 ABG pCO2 71 mmHg (35-46) H 06/10/23 15:57 ABG pO2 61 mmHg (80-95) L 06/10/23 15:57 ABG HCO3 39 mmol/L (19-24) H 06/10/23 15:57 ABG O2 Saturation 93.0 % (90-95) 06/10/23 15:57 ABG Base Excess 10.6 mEq/L (-9-1.8) H 06/10/23 15:57 [place]ales Test Pos (Pos) 06/10/23 15:57 VBG pH 7.40 (7.36-7.41) 06/12/23 05:39 VBG pCO2 77 mmHg (38-50) H 06/12/23 05:39 VBG pO2 61 mmHg 06/12/23 05:39 VBG HCO3 48 mmol/L 06/12/23 05:39 VBG O2 Saturation 88.0 % 06/12/23 05:39 VBG Base Excess 18.5 mEq/L 06/12/23 05:39 Oxygen Given 30% 06/10/23 15:57 Sodium 139 mmol/L (136-145) 06/12/23 05:34 Potassium 4.2 mmol/L (3.5-5.1) 06/12/23 05:34 Chloride 94 mmol/L (98-107) L 06/12/23 05:34 Carbon Dioxide 42 mmol/L (21-32) H* 06/12/23 05:34 Anion Gap 3 (3-11) 06/12/23 05:34 BUN 30 mg/dl (6-23) H 06/12/23 05:34 Creatinine 0.76 mg/dl (0.6-1.4) 06/12/23 05:34 Est Cr Clr Drug Dosing 126.7 ml/min 06/12/23 05:34 Est GFR ( Amer) 110.2 ml/min 06/12/23 05:34 Est GFR (Non-Af Amer) 95.1 ml/min 06/12/23 05:34 BUN/Creatinine Ratio 39.5 (10-20) H 06/12/23 05:34 Glucose 83 mg/dl (70-99(Fasting)) 06/12/23 05:34 POC Glucose 97 mg/dl (70-99) 06/12/23 11:54 Estimat Average Glucose 120 mg/dl 06/11/23 05:29 Hemoglobin A1c 5.8 % (4.5-5.6) H 06/11/23 05:29 Calcium 9.2 mg/dl (8.6-10.3) 06/12/23 05:34 Magnesium 1.7 mg/dl (1.7-2.4) 06/12/23 05:34 Iron 17 mcg/dl (35-175) L 06/10/23 11:30 Unsaturated IBC 321 mcg/dl (155-355) 06/10/23 11:30 Transferrin 258 mg/dl (200-360) 06/10/23 11:30 Ferritin 53.8 ng/ml (8-388) 06/10/23 11:30 Total Bilirubin 0.4 mg/dl (0.2-1.0) 06/10/23 11:30 AST 17 U/L (13-39) 06/10/23 11:30 ALT 11 U/L (7-52) 06/10/23 11:30 Alkaline Phosphatase 93 U/L (34-104) 06/10/23 11:30 Troponin I High Sens 19.1 pg/ml (0-20) 06/10/23 11:30 B-Natriuretic Peptide 831 pg/ml (0-100) H 06/10/23 11:30 Total Protein 6.9 gm/dl (6.0-8.3) 06/10/23 11:30 Albumin 3.7 gm/dl (3.4-5.0) 06/10/23 11:30 Globulin 3.2 gm/dl (2.5-4.0) 06/10/23 11:30 Albumin/Globulin Ratio 1.2 (0.9-2) 06/10/23 11:30 Vitamin B12 405 pg/ml (180-914) 06/10/23 11:30 Folate 18.69 ng/ml (>5.38) 06/10/23 11:30 Procalcitonin 0.13 ng/ml (0-0.5) 06/10/23 11:30 Urine Color Yellow 06/10/23 Unknown Urine Appearance Clear (Clear) 06/10/23 Unknown Urine pH 5.0 (4.5-7.5) 06/10/23 Unknown Ur Specific [place] 1.013 (1.000-1.030) 06/10/23 Unknown Urine Protein Negative (Negative) 06/10/23 Unknown Urine Glucose (UA) 3+ (Negative) H 06/10/23 Unknown Urine Ketones Negative (Negative) 06/10/23 Unknown Urine Blood Negative (Negative) 06/10/23 Unknown Urine Nitrite Negative (Negative) 06/10/23 Unknown Urine Bilirubin Negative (Negative) 06/10/23 Unknown Urine Urobilinogen Negative (Negative) 06/10/23 Unknown Ur Leukocyte Esterase Negative (Negative) 06/10/23 Unknown Adenovirus (PCR) Not Detected (NotDetected) 06/10/23 Unknown B. pertussis DNA (PCR) Not Detected (NotDetected) 06/10/23 Unknown B.parapertussis DNA PCR Not Detected (NotDetected) 06/10/23 Unknown Lyme Disease IgG Ab Negative (Negative) 06/10/23 11:30 Lyme Disease IgM Ab Negative (Negative) 06/10/23 11:30 C. pneumoniae DNA (PCR) Not Detected (NotDetected) 06/10/23 Unknown Coronavirus OC43 (PCR) Not Detected (NotDetected) 06/10/23 Unknown Coronavirus HKU1 (PCR) Not Detected (NotDetected) 06/10/23 Unknown Coronavirus 229E (PCR) Not Detected (NotDetected) 06/10/23 Unknown SARS-CoV-2 (PCR) Not Detected (NotDetected) 06/10/23 Unknown Coronavirus NL63 (PCR) Not Detected (NotDetected) 06/10/23 Unknown Hepatitis C Ab (EIA) NON-REACTIVE (NON-REACTIVE) 06/11/23 05:29 Human Metapneumovir PCR Not Detected (NotDetected) 06/10/23 Unknown Influenza Type A (PCR) Not Detected (NotDetected) 06/10/23 Unknown Influenza Type B (PCR) Not Detected (NotDetected) 06/10/23 Unknown M. pneumoniae (PCR) Not Detected (NotDetected) 06/10/23 Unknown Parainfluenza 1 (PCR) Not Detected (NotDetected) 06/10/23 Unknown Parainfluenza 2 (PCR) Not Detected (NotDetected) 06/10/23 Unknown Parainfluenza 3 (PCR) Not Detected (NotDetected) 06/10/23 Unknown Parainfluenza 4 (PCR) Not Detected (NotDetected) 06/10/23 Unknown RSV (PCR) Not Detected (NotDetected) 06/10/23 Unknown Entero/Rhino (PCR) DETECTED (NotDetected) A* 06/10/23 Unknown Impressions Chest X-Ray 06/10/23 11:16 XR chest 1V portable HISTORY: 67 years-old Male Dyspnea acute shortness of breath COMPARISON: None TECHNIQUE: AP view of the chest FINDINGS: Cardiac silhouette is enlarged. Atherosclerosis of the aorta. Pulmonary vascular congestion with interstitial coarsening. No pneumothorax. Right greater than left pleural effusions with bibasilar consolidation. Degenerative changes of the shoulders and spine. IMPRESSION: 1. Cardiomegaly with pulmonary edema. 2. Layering pleural effusions with bibasilar consolidation, right greater than left. ACT 112: Negative or not required by law. The above report was generated using voice recognition software. It may contain grammatical, syntax or spelling errors. Electronically signed by: Josiah Sanchez M.D. 06/10/2023 11:48 AM
[2023-06-12] MEDS: MAGNESIUM SULFATE / D5W 1 GM/100 ML BAG IV SCH ×4 (16:56→23:08)
[2023-06-12] MEDS: FUROSEMIDE 100 MG in DEXTROSE 5% 90 ML IV SCH (17:13)
[2023-06-12] MEDS: WARFARIN SOD 10 MG TAB PO SCH (18:11)
[2023-06-12] MEDS: ACETAMINOPHEN 325 MG TAB PO PRN (21:00)
[2023-06-13] MEDS: ALBUT/IPRATROP 3MG/0.5MG NEB 3 ML VIAL NEB SCH ×6 (02:24→22:25)
[2023-06-13 06:48] LABS: Hematocrit (blood only) 29.2 % (42.0-52.0); Hemoglobin 9.2 g/dl (14.0-18.0); Mean Corpuscular Hgb Conc 31.5 g/dL (32.0-36.0); Mean Corpuscular Volume 88.8 fL (80.0-100.0); Mean Platelet Volume 9.2 fL (9.4-12.4); Platelet Count 279 K/uL (130-400); RDW Coefficient of Variation 16.8 % (11.5-14.5); RDW Standard Deviation 54.8 fL (36.4-46.3); Red Blood Count 3.29 M/uL (4.70-6.10); White Blood Count 7.21 K/ul (4.8-10.8)
[2023-06-13 06:49] LABS: ALC (manual) 0.72 K/uL (1.2-3.4); ANC (manual) 5.41 K/uL (1.4-6.5); Basophils # (manual) 0.07 K/uL (0-0.2); Basophils % (manual) 1 %; Eosinophils # (manual) 0.22 K/uL (0-0.50); Eosinophils % (manual) 3 %; Lymphocytes # (manual) 0.72 K/uL (1.2-3.4); Lymphocytes % (manual) 10 %; Monocytes # (manual) 0.79 K/uL (0.11-0.59); Monocytes % (manual) 11 %; Neutrophils # (manual) 5.41 K/uL (1.40-6.50); Neutrophils % (manual) 75 %; Polychromasia 1+; Stomatocytes 1+
[2023-06-13 07:19] LABS: BUN Creatinine Ratio 35.7 (10-20); Blood Urea Nitrogen 25 mg/dl (6-23); Calcium 9.3 mg/dl (8.6-10.3); Carbon Dioxide > 45 mmol/L (21-32); Chloride 89 mmol/L (98-107); Creatinine Clr Calc Pharmacy 137.5 ml/min; Est GFR (Non-African American) 98.3 ml/min; Glucose 89 mg/dl (70-99(Fasting)); Potassium 3.6 mmol/L (3.5-5.1); Sodium 139 mmol/L (136-145)
--- NOTE | 2023-06-13 08:21 | Cardiology Progress Note ---
Date of Service June 13, 2023 Assessment & Plan (1) Acute on chronic congestive heart failure: (2) Chronic respiratory failure with hypoxia: (3) Chronic a-fib: (4) Obesity hypoventilation syndrome: Plan See attending energy systems laboratory director's documentation for further recommendations and plan of care. Admission and Anticipated Discharge Date Admission Date: June 10, 2023 Supervising Physician Co-Signing Physician Notes Attending Staff: Pt seen and evaluated with AP Staff. Concur with observations and plans 67 yo man presenting with dyspnea Worsening dyspnea Hypoxia noted Started on Lasix 40 mg IV BID Recently moved from [place] Recent admission in [place] with heart failure Moved to [place] to be near daughter Hx: * Morbid Obesity * O2 dependence * Obesity /Hypoventilation * HTN * DM * Chronic Afib - on coumadin * DVT hx ECHOcardiogram 06/10/2023 Poor quality LVEF 50-55% Moderate TR RV - moderate to severe dilation RV pressure + volume overload Severe Pulmonary HTN Est PAP 76 mmHG Urine Protein - negative PCO2 on ABG - 70's Plans: * Severe volume overload * Acute on chronic combined right heart failure * Continue Lasix drip @ 5 mg/hr * Potential stop of Lasix drip on 06/14/2023 * BID electrolyte check * Goal is - 3.0 liters overnight * Barron in place * Given underlying hypoxia/hypercarbic respiratory failure, would need aggressive KCL repletion to avoid mount a significant hypochloremic metabolic alkalosis * Increase Kdur to 40 meq po TID * K+ goal is 4.5-5 * Mag goal >2 * Mag 1.7 * 4 gm Magnesium Sulfate IV (GIVEN) * PT/OT -working to mobilize patient * Supplemental O2 as needed; wean as appropriate * Afib- chronic * Ventricular rate controlled * Continue Coreg 3.125 mg po BID (Home dose was 25 mg po BID) * On coumadin - adjust dosing - INR 1.8 (goal 2-3) - indication is afib * May need to recheck INR * SBP @ goal (100-120 mmHg) * Enalapril 10 mg po per day (OFF) * May consider holding Imdur * Continue Aldactone 25 mg po per day * Mobilize * CRISTOFER /CPAP? / Bariatrics? Tiago Torres Subjective Events overnight: * No telemetry events * No events reported Subjective: * Breathing improved * No complaints Review of Systems Review of Systems: All systems reviewed & are unremarkable except as noted in HPI & below Physical Exam Physical Exam: Exam: Obese Glasses On O2 via NC JVP to 16 cmH20 S1S2 Distant 2/6 systolic murmur - soft CTA B Mild presacral edema 2+ LE edema to thighs Mild abdominal wall edema Results & Data Vital Signs (Past 12 Hours) Vital Signs Temp Pulse Pulse Resp BP Pulse Ox O2 Del Method 06/13/23 07:30 36.4 C L 65 14 140/72 96 BiPAP 06/13/23 07:03 61 24 96 BiPAP 06/13/23 07:03 61 24 96 06/13/23 04:05 36.8 C 46 L 18 105/61 96 BiPAP 06/13/23 02:24 59 L 31 H 93 BiPAP 06/13/23 02:24 59 L 30 H 93 06/13/23 00:44 71 06/12/23 22:51 57 L 22 92 06/12/23 22:46 57 L 22 92 06/12/23 22:43 36.8 C 87 18 114/69 96 Nasal Cannula 06/12/23 20:25 Nasal Cannula O2 Flow Rate FiO2 06/13/23 07:30 06/13/23 07:03 30 06/13/23 07:03 30 06/13/23 04:05 06/13/23 02:24 30 06/13/23 02:24 30 06/13/23 00:44 06/12/23 22:51 30 06/12/23 22:46 30 06/12/23 22:43 5.0 06/12/23 20:25 6 Laboratory Results CBC 06/13/23 Range/Units 05:50 WBC 7.21 (4.8-10.8) K/ul RBC 3.29 L (4.70-6.10) M/uL Hgb 9.2 L (14.0-18.0) g/dl Hct 29.2 L (42.0-52.0) % Plt Count 279 (130-400) K/uL Comprehensive Metabolic Panel 06/13/23 Range/Units 05:50 Sodium 139 (136-145) mmol/L Potassium 3.6 (3.5-5.1) mmol/L Chloride 89 L (98-107) mmol/L Carbon Dioxide > 45 H* (21-32) mmol/L BUN 25 H (6-23) mg/dl Creatinine 0.70 (0.6-1.4) mg/dl Glucose 89 (70-99(Fasting)) mg/dl Calcium 9.3 (8.6-10.3) mg/dl Intake and Output 06/12/23 06/13/23 06/13/23 22:59 06:59 14:59 Intake Total 705.833 / 1435.833 250 / 1435.833 Output Total 1699 / 0 2049 Balance -994.167 / -4814.167 -1800 / -4814.167 Intake: IV 285.833 / 385.833 100 / 385.833 Magnesium Sulfate / D5w 1 gm In 285.833 / 385.833 100 / 385.833 100 ml @ 50 mls/hr IV Q2H [facility] Rx#:[id number] Oral 420 / 1050 150 / 1050 Output: Urine Amount (Catheter) 1699 / 6249 2049 / 6249 Barron/Indwelling 1699 / [id number] / 0 Medications Administered Current Inpatient Medications Acetaminophen (Acetaminophen 325 Mg Tab) 650 mg PO Q4H PRN PRN Reason: Moderate Pain (Scale 4, 5, 6) Stop: 07/10/23 15:13 Last Admin: 06/12/23 21:00 Dose: 650 mg Albuterol (Albut/Ipratrop 3mg/0.5mg Neb 3 Ml Vial) 3 ml NEB Q4R [facility]; Protocol Stop: 07/10/23 15:13 Last Admin: 06/13/23 07:02 Dose: 3 ml Atorvastatin Calcium (Atorvastatin 40 Mg Tab) 40 mg PO DAILY [facility] [place] Stop: 07/11/23 08:59 Last Admin: 06/12/23 09:02 Dose: 40 mg Carvedilol (Carvedilol 3.125 Mg Tab) 3.125 mg PO BIDM [facility] [place] Stop: 07/11/23 16:59 Last Admin: 08/16/23 18:12 Dose: 3.125 mg Dextrose (Dextrose 50% 50 Ml Syringe) 25 - 50 ml IV UD PRN; Protocol PRN Reason: Hypoglycemia Protocol Stop: 07/10/23 15:13 Fluticasone Furoate (Fluticasone Furoate 100mcg 14 Puffs/Inhaler) 1 puffs INH DAILY [facility] Stop: 07/11/23 08:59 Last Admin: 06/12/23 09:02 Dose: 1 puffs Glucagon (Glucagon For Inj 1 Mg Vial) 1 mg SQ UD PRN; Protocol PRN Reason: Hypoglycemia Protocol Stop: 07/10/23 15:13 Glucose (Glucose 10 Tab/Tube) 4 - 8 tab PO UD PRN; Protocol PRN Reason: Hypoglycemia Treatment Stop: 07/10/23 15:13 Glucose (Glucose 40% Gel 15 Gm Tube) 15 - 30 gm PO UD PRN; Protocol PRN Reason: Hypoglycemia Protocol Stop: 07/10/23 15:13 Guaifenesin (Guaifenesin 600 Mg Tabcr) 1,200 mg PO Q12 [facility] Stop: 07/10/23 20:59 Last Admin: 06/12/23 20:19 Dose: 1,200 mg Furosemide 100 mg/ Dextrose 100 mls @ 5 mls/hr IV .Q20H [facility] Stop: 07/12/23 14:59 Last Admin: 06/12/23 17:13 Dose: 5 mg/hr, 5 mls/hr Insulin Aspart (Insulin Aspart Per Unit Charge) 0 units SC ACHS [facility] Stop: 07/10/23 16:29 Last Admin: 06/12/23 20:26 Dose: Not Given Isosorbide Mononitrate (Isosorbide [place] Extended Rel 60 Mg Tabcr) 60 mg PO QAM [facility] Stop: 07/11/23 08:59 Last Admin: 06/11/23 07:52 Dose: 60 mg Miscellaneous (Carbohydrates For Hypoglycemia ) 15 - 30 gm PO UD PRN PRN Reason: Hypoglycemia Protocol Stop: 07/10/23 15:13 Ondansetron HCl (Ondansetron Inj 2 Mg/Ml 2 Ml Vial) 4 mg IV Q4H PRN PRN Reason: Nausea And Vomiting Stop: 07/10/23 15:13 Pantoprazole Sodium (Pantoprazole 40 Mg Tab) 40 mg PO DAILY [facility] Stop: 07/11/23 08:59 Last Admin: 06/12/23 09:02 Dose: 40 mg Spironolactone (Spironolactone 25 Mg Tab) 25 mg PO QAM [facility] Stop: 07/12/23 08:59 Last Admin: 06/12/23 09:01 Dose: 25 mg Umeclidinium/Vilanterol (Umeclidinium/Vilanterol 62.5/25mcg 7 Puffs/Inhaler) 1 puffs INH DAILY [facility] [place] Stop: 07/11/23 08:59 Last Admin: 06/12/23 09:02 Dose: 1 puffs Warfarin Sodium (Warfarin Sod 10 Mg Tab) 10 mg PO DAILY@1600 [facility] [place] Stop: 07/10/23 16:29 Last Admin: 06/12/23 18:11 Dose: 10 mg
[2023-06-13] MEDS: PANTOprazole 40 MG TAB PO SCH (08:45)
[2023-06-13] MEDS: guaiFENesin 600 MG TABCR PO SCH ×2 (08:45→20:35)
[2023-06-13] MEDS: carvediloL 3.125 MG TAB PO SCH ×2 (08:46→17:31)
[2023-06-13] MEDS: SPIRONOLACTONE 25 MG TAB PO SCH (08:46)
[2023-06-13] MEDS: ATORVASTATIN 40 MG TAB PO SCH (08:46)
[2023-06-13] MEDS: UMECLIDINIUM/VILANTEROL 62.5/25MCG 7 PUFFS/INHALER INH SCH (08:47)
[2023-06-13] MEDS: FLUTICASONE FUROATE 100MCG 14 PUFFS/INHALER INH SCH (08:47)
[2023-06-13] MEDS ORDERED: POTASSIUM CHLORIDE CRTAB 20 MEQ TABCR PO SCH (09:30)
[2023-06-13] MEDS: INSULIN ASPART PER UNIT CHARGE SC SCH ×4 (10:21→20:47)
[2023-06-13] MEDS: FUROSEMIDE 100 MG in DEXTROSE 5% 90 ML IV SCH (10:23)
--- NOTE | 2023-06-13 11:00 | Pulmonology Progress Note ---
Date of Service June 13, 2023 Assessment & Plan (1) Acute respiratory failure with hypoxia and hypercarbia: (2) Acute on chronic congestive heart failure: (3) Obesity hypoventilation syndrome: Plan Impression: 67-year-old male with morbid obesity and likely obesity hypoventilat ion syndrome. It is unclear whether he actually has COPD or not. His x-ray is difficult if impossible to determine whether or not superimposed pneumonia is present Recommendations: 1. Acute on chronic hypercarbic respiratory failure: Suspect this is obesity hypoventilation syndrome. Outpatient PFTs and polysomnography recommended. His blood gas now shows a normal pH with a baseline CO2 in the 70s which is likely where he resides. Would recommend continuing BiPAP 16/10 when sleeping and nightly. Recommend consulting case management to see if the patient can get set up with BiPAP to go home with as his sleep studies will likely not be accomplished for several weeks. 2. 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 Worsening serum bicarb. Question contraction related. Continue with diuresis as directed by cardiology. 3. Ultimately the patient requires weight loss for optimization of his medical conditions. Outpatient bariatric medicine evaluation recommended 4. Reported history of COPD. Continue Anoro/Flovent. No indication for steroids. Will need outpatient PFTs 5. The patient needs to get out of bed to chair and ambulate. Continue physical therapy. May need acute rehab but apparently the patient has declined. Thank you for allowing us to participate in the care of this patient. He appears to be improving clinically at this time. Pulmonary medicine will sign off at this time. Admission and Anticipated Discharge Date Admission Date: June 10, 2023 Supervising Physician Co-Signing Physician Notes Patient seen and examined. Discussed with JUAN LUIS. Agree with assessment plan as noted. Patient is stabilizing from a respiratory standpoint. He has chronic hypercarbic respiratory failure and requires outpatient PFTs and polysomnography. He should go home with BiPAP if this can be arranged. Would be happy to see him back in the pulmonary clinic for follow-up at discharge. Pulmonary will sign off at this point time. Feel free to contact us if we can be of additional assistance Subjective Patient seen and evaluated bedside. He reports that his breathing continues to improve. He has a ongoing productive cough, but feels as though this is helped with his symptoms. He continues to use the BiPAP settings and is excited to use them at home as well. Review of Systems Review of Systems: Unchanged from admission. Physical Exam Physical Exam: VITAL SIGNS - Vital signs and nursing notes were reviewed. GENERAL - 67-year-old male appearing his stated age who is in no acute distress. Communicates well with provider and answers questions appropriately. LUNGS -diminished breath sounds with bibasilar Rales RIGHT greater than left and slight inspiratory wheeze appreciated. CARDIAC - RRR with S1/S2. No murmur, rubs, or gallops appreciated. EXTREMITIES -impressive edema noted of the bilateral lower extremities. PSYCH - A&Ox3 and cooperates fully with examiner. Pt is very pleasant and interacts well with examiner. Results & Data Results & Data Vital Signs (Past 12 Hours) Vital Signs Temp Pulse Pulse Resp BP Pulse Ox O2 Del Method 06/13/23 10:48 67 17 95 Nasal Cannula 06/13/23 08:00 Nasal Cannula 06/13/23 07:30 36.4 C L 65 14 140/72 96 BiPAP 06/13/23 07:03 61 24 96 BiPAP 06/13/23 07:03 61 24 96 06/13/23 04:05 36.8 C 46 L 18 105/61 96 BiPAP 06/13/23 02:24 59 L 31 H 93 BiPAP 06/13/23 02:24 59 L 30 H 93 06/13/23 00:44 71 O2 Flow Rate FiO2 06/13/23 10:48 5 06/13/23 08:00 5 06/13/23 07:30 06/13/23 07:03 30 06/13/23 07:03 30 06/13/23 04:05 06/13/23 02:24 30 06/13/23 02:24 30 06/13/23 00:44 PG Care Time/CCT Total # of Minutes Spent Total Time Spent with Patient: Total time spent is greater than 50% in coordination of care (as documented) at patient's floor/unit and/or counseling patient: Coding Level of Care Code 25358 SUB INP/OBS CARE 2/35MIN Diagnoses Acute respiratory failure with hypoxia and hypercarbia J96.01; J96.02 Acute on chronic congestive heart failure I50.9 Obesity hypoventilation syndrome E66.2
[2023-06-13 14:08] LABS: INR 1.8 (0.9-1.1)
--- NOTE | 2023-06-13 15:49 | Hospitalist Progress Note ---
Date of Service June 13, 2023 Assessment & Plan (1) Acute respiratory failure with hypoxia and hypercarbia: (2) Obesity hypoventilation syndrome: (3) Acute on chronic congestive heart failure: Plan Acute respiratory failure with hypoxia and hypercarbia Multifactorial secondary to acute on chronic diastolic heart failure, obesity hypoventilation syndrome, could have obstructive sleep apnea, severe pulm HTN, rhinovirus infection, COPD --CXR on admission personally reviewed:Cardiomegaly with pulmonary edema. Layering pleural effusions with bibasilar consolidation, right greater than left. --ECHO: Flattening of the interventricular septum is present consistent with right ventricular pressure/volume overload, left ventricular wall motion is grossly normal. EF 50 to 55%. Right ventricle appears to be dilated to a moderate to severe degree. Mild mitral regurgitation. Moderate tricuspid regurgitation. Severe pulmonary hypertension is present. -- Serological test positive for Entero/Rhinovirus --Normal procalcitonin --Blood cultures no growth till Currently on IV diuretics with Lasix at 5 mg/h Replete electrolytes as needed Continue home inhalers Will need outpatient PFTs, polysomnography. Overnight nocturnal oximetry and ABG ordered to see if patient qualifies for BiPAP at discharge. Continue BiPAP at bedtime for now as per pulmonology. Appreciate cardiology, pulmonology input on Aldactone 25 mg daily Hold Imdur, lisinopril for now due to low BP Repeat chest x-ray tomorrow AM. Chronic atrial fibrillation Continue carvedilol 3.125 mg twice a day (dose decreased due to low BP) On Coumadin for anticoagulation Normocytic anemia ? Unknown baseline Hemoglobin 8.7 Currently no bleeding issues Monitor DM II HbA1c 5.8 ? Reliability of HbA1c given anemia Hold p.o. meds Continue insulin while hospitalized Monitor bgS Morbid obesity BMI 46 GERD Continue PPI Hyperlipidemia Continue statin DVT Px: Coumadin CODE STATUS Full code Disposition PT OT done; recommend home PT OT. Time spent evaluating patient, direct bedside care, chart review, placing orders, interpretation of diagnostic studies, discussion with consultants, patient, and family members, as well as other required patient management activities is 60 minutes. Please note the above document was generated using voice recognition software. It may contain grammatical, syntax or spelling errors. Any formal questions or concerns about the content, text or information contained within the body of this dictation should be directly addressed to the provider for clarification Admission and Anticipated Discharge Date Admission Date: June 10, 2023 Subjective Patient seen and examined at bedside. He is sitting up on the chair at the side of the bed. Reports that his shortness of breath has improved compared to admission. Review of Systems Review of Systems: All systems reviewed & are unremarkable except as noted in Subjective Physical Exam Physical Exam: Physical Exam: Vitals signs as noted above General Appearance:Morbidly Obese, no apparent distress Head: normocephalic, Atraumatic Eyes: normal inspection, EOMI Neck: supple, Trachea midline Respiratory/Chest: Decreased breath sounds, CTA, No accessory muscle use Cardiovascular: Irregularly irregular, No murmur Abdomen/GI:Soft, Non tender, Bowel sounds present Extremities/Musculoskeletal:normal inspection, 2+ pedal edema Neurologic/Psych:AAOX3, grossly no focal neurological deficits Skin: normal color, warm Results & Data Results & Data Vital Signs (Past 12 Hours) Vital Signs Temp Pulse Pulse Resp BP BP Pulse Ox 06/13/23 14:57 63 17 94 06/13/23 11:32 36.5 C 61 17 108/64 95 06/13/23 10:48 67 17 95 06/13/23 08:00 06/13/23 07:30 36.4 C L 65 14 140/72 96 06/13/23 07:03 61 24 96 06/13/23 07:03 61 24 96 06/13/23 04:05 36.8 C 46 L 18 105/61 96 O2 Del Method O2 Flow Rate FiO2 06/13/23 14:57 Nasal Cannula 4 06/13/23 11:32 Nasal Cannula 4.0 06/13/23 10:48 Nasal Cannula 5 06/13/23 08:00 Nasal Cannula 5 06/13/23 07:30 BiPAP 06/13/23 07:03 BiPAP 30 06/13/23 07:03 30 06/13/23 04:05 BiPAP Laboratory Results Laboratory Results WBC 7.21 K/ul (4.8-10.8) 06/13/23 05:50 RBC 3.29 M/uL (4.70-6.10) L 06/13/23 05:50 Hgb 9.2 g/dl (14.0-18.0) L 06/13/23 05:50 Hct 29.2 % (42.0-52.0) L 06/13/23 05:50 MCV 88.8 fL (80.0-100.0) 06/13/23 05:50 MCH 28.0 pg (25.0-34.0) 06/13/23 05:50 MCHC 31.5 g/dL (32.0-36.0) L 06/13/23 05:50 RDW Std Deviation 54.8 fL (36.4-46.3) H 06/13/23 05:50 RDW Coeff of Dhaval 16.8 % (11.5-14.5) H 06/13/23 05:50 Plt Count 279 K/uL (130-400) 06/13/23 05:50 MPV 9.2 fL (9.4-12.4) L 06/13/23 05:50 Immature Gran % (Auto) 0.4 % 06/10/23 11:30 Neut % (Auto) 85.3 % 06/10/23 11:30 Lymph % (Auto) 5.2 % 06/10/23 11:30 Price % (Auto) 8.1 % 06/10/23 11:30 Eos % (Auto) 0.6 % 06/10/23 11:30 Baso % (Auto) 0.4 % 06/10/23 11:30 Neut # (Auto) 10.30 K/uL (1.40-6.50) H 06/10/23 11:30 Lymph # (Auto) 0.63 K/uL (1.2-3.4) L 06/10/23 11:30 Price # (Auto) 0.98 K/uL (0.11-0.59) H 06/10/23 11:30 Eos # (Auto) 0.07 K/uL (0-0.50) 06/10/23 11:30 Baso # (Auto) 0.05 K/uL (0-0.2) 06/10/23 11:30 Immature Gran # (Auto) 0.05 K/uL (0.01-0.20) 06/10/23 11:30 Neutrophils % (Manual) 75 % 06/13/23 05:50 Lymphocytes % (Manual) 10 % 06/13/23 05:50 Monocytes % (Manual) 11 % 06/13/23 05:50 Eosinophils % (Manual) 3 % 06/13/23 05:50 Basophils % (Manual) 1 % 06/13/23 05:50 Neutrophils # (Manual) 5.41 K/uL (1.40-6.50) 06/13/23 05:50 Total Absolute Neuts 5.41 K/uL (1.4-6.5) 06/13/23 05:50 Lymphocytes # (Manual) 0.72 K/uL (1.2-3.4) L 06/13/23 05:50 Total Abs Lymphocytes 0.72 K/uL (1.2-3.4) L 06/13/23 05:50 Monocytes # (Manual) 0.79 K/uL (0.11-0.59) H 06/13/23 05:50 Eosinophils # (Manual) 0.22 K/uL (0-0.50) 06/13/23 05:50 Basophils # (Manual) 0.07 K/uL (0-0.2) 06/13/23 05:50 Polychromasia 1+ 06/13/23 05:50 Stomatocytes 1+ 06/13/23 05:50 PT 19.0 Seconds (9.0-12.0) H 06/13/23 12:56 INR 1.8 (0.9-1.1) H 06/13/23 12:56 ABG pH 7.35 (7.35-7.45) 06/10/23 15:57 ABG pCO2 71 mmHg (35-46) H 06/10/23 15:57 ABG pO2 61 mmHg (80-95) L 06/10/23 15:57 ABG HCO3 39 mmol/L (19-24) H 06/10/23 15:57 ABG O2 Saturation 93.0 % (90-95) 06/10/23 15:57 ABG Base Excess 10.6 mEq/L (-9-1.8) H 06/10/23 15:57 Morales Test Pos (Pos) 06/10/23 15:57 VBG pH 7.40 (7.36-7.41) 06/12/23 05:39 VBG pCO2 77 mmHg (38-50) H 06/12/23 05:39 VBG pO2 61 mmHg 06/12/23 05:39 VBG HCO3 48 mmol/L 06/12/23 05:39 VBG O2 Saturation 88.0 % 06/12/23 05:39 VBG Base Excess 18.5 mEq/L 06/12/23 05:39 Oxygen Given 30% 06/10/23 15:57 Sodium 139 mmol/L (136-145) 06/13/23 05:50 Potassium 3.6 mmol/L (3.5-5.1) 06/13/23 05:50 Chloride 89 mmol/L (98-107) L 06/13/23 05:50 Carbon Dioxide > 45 mmol/L (21-32) H* 06/13/23 05:50 Anion Gap TNP 06/13/23 05:50 BUN 25 mg/dl (6-23) H 06/13/23 05:50 Creatinine 0.70 mg/dl (0.6-1.4) 06/13/23 05:50 Est Cr Clr Drug Dosing 137.5 ml/min 06/13/23 05:50 Est GFR ( Amer) 114.0 ml/min 06/13/23 05:50 Est GFR (Non-Af Amer) 98.3 ml/min 06/13/23 05:50 BUN/Creatinine Ratio 35.7 (10-20) H 06/13/23 05:50 Glucose 89 mg/dl (70-99(Fasting)) 06/13/23 05:50 POC Glucose 145 mg/dl (70-99) H 06/13/23 11:33 Estimat Average Glucose 120 mg/dl 06/11/23 05:29 Hemoglobin A1c 5.8 % (4.5-5.6) H 06/11/23 05:29 Calcium 9.3 mg/dl (8.6-10.3) 06/13/23 05:50 Magnesium 1.9 mg/dl (1.7-2.4) 06/13/23 12:56 Iron 17 mcg/dl (35-175) L 06/10/23 11:30 Unsaturated IBC 321 mcg/dl (155-355) 06/10/23 11:30 Transferrin 258 mg/dl (200-360) 06/10/23 11:30 Ferritin 53.8 ng/ml (8-388) 06/10/23 11:30 Total Bilirubin 0.4 mg/dl (0.2-1.0) 06/10/23 11:30 AST 17 U/L (13-39) 06/10/23 11:30 ALT 11 U/L (7-52) 06/10/23 11:30 Alkaline Phosphatase 93 U/L (34-104) 06/10/23 11:30 Troponin I High Sens 19.1 pg/ml (0-20) 06/10/23 11:30 B-Natriuretic Peptide 831 pg/ml (0-100) H 06/10/23 11:30 Total Protein 6.9 gm/dl (6.0-8.3) 06/10/23 11:30 Albumin 3.7 gm/dl (3.4-5.0) 06/10/23 11:30 Globulin 3.2 gm/dl (2.5-4.0) 06/10/23 11:30 Albumin/Globulin Ratio 1.2 (0.9-2) 06/10/23 11:30 Vitamin B12 405 pg/ml (180-914) 06/10/23 11:30 Folate 18.69 ng/ml (>5.38) 06/10/23 11:30 Procalcitonin 0.13 ng/ml (0-0.5) 06/10/23 11:30 Urine Color Yellow 06/10/23 Unknown Urine Appearance Clear (Clear) 06/10/23 Unknown Urine pH 5.0 (4.5-7.5) 06/10/23 Unknown Ur Specific [place] 1.013 (1.000-1.030) 06/10/23 Unknown Urine Protein Negative (Negative) 06/10/23 Unknown Urine Glucose (UA) 3+ (Negative) H 06/10/23 Unknown Urine Ketones Negative (Negative) 06/10/23 Unknown Urine Blood Negative (Negative) 06/10/23 Unknown Urine Nitrite Negative (Negative) 06/10/23 Unknown Urine Bilirubin Negative (Negative) 06/10/23 Unknown Urine Urobilinogen Negative (Negative) 06/10/23 Unknown Ur Leukocyte Esterase Negative (Negative) 06/10/23 Unknown Adenovirus (PCR) Not Detected (NotDetected) 06/10/23 Unknown B. pertussis DNA (PCR) Not Detected (NotDetected) 06/10/23 Unknown B.parapertussis DNA PCR Not Detected (NotDetected) 06/10/23 Unknown Lyme Disease IgG Ab Negative (Negative) 06/10/23 11:30 Lyme Disease IgM Ab Negative (Negative) 06/10/23 11:30 C. pneumoniae DNA (PCR) Not Detected (NotDetected) 06/10/23 Unknown Coronavirus OC43 (PCR) Not Detected (NotDetected) 06/10/23 Unknown Coronavirus HKU1 (PCR) Not Detected (NotDetected) 06/10/23 Unknown Coronavirus 229E (PCR) Not Detected (NotDetected) 06/10/23 Unknown SARS-CoV-2 (PCR) Not Detected (NotDetected) 06/10/23 Unknown Coronavirus NL63 (PCR) Not Detected (NotDetected) 06/10/23 Unknown Hepatitis C Ab (EIA) NON-REACTIVE (NON-REACTIVE) 06/11/23 05:29 Human Metapneumovir PCR Not Detected (NotDetected) 06/10/23 Unknown Influenza Type A (PCR) Not Detected (NotDetected) 06/10/23 Unknown Influenza Type B (PCR) Not Detected (NotDetected) 06/10/23 Unknown M. pneumoniae (PCR) Not Detected (NotDetected) 06/10/23 Unknown Parainfluenza 1 (PCR) Not Detected (NotDetected) 06/10/23 Unknown Parainfluenza 2 (PCR) Not Detected (NotDetected) 06/10/23 Unknown Parainfluenza 3 (PCR) Not Detected (NotDetected) 06/10/23 Unknown Parainfluenza 4 (PCR) Not Detected (NotDetected) 06/10/23 Unknown RSV (PCR) Not Detected (NotDetected) 06/10/23 Unknown Entero/Rhino (PCR) DETECTED (NotDetected) A* 06/10/23 Unknown Impressions Chest X-Ray 06/10/23 11:16 XR chest 1V portable HISTORY: 67 years-old Male Dyspnea acute shortness of breath COMPARISON: None TECHNIQUE: AP view of the chest FINDINGS: Cardiac silhouette is enlarged. Atherosclerosis of the aorta. Pulmonary vascular congestion with interstitial coarsening. No pneumothorax. Right greater than left pleural effusions with bibasilar consolidation. Degenerative changes of the shoulders and spine. IMPRESSION: 1. Cardiomegaly with pulmonary edema. 2. Layering pleural effusions with bibasilar consolidation, right greater than left. ACT 112: Negative or not required by law. The above report was generated using voice recognition software. It may contain grammatical, syntax or spelling errors. Electronically signed by: Josiah Sanchez M.D. 06/10/2023 11:48 AM
[2023-06-13] MEDS: POTASSIUM CHLORIDE CRTAB 20 MEQ TABCR PO SCH ×2 (17:31→20:36)
[2023-06-13] MEDS: WARFARIN SOD 10 MG TAB PO SCH (17:31)
[2023-06-14] MEDS: ALBUT/IPRATROP 3MG/0.5MG NEB 3 ML VIAL NEB SCH ×6 (02:35→22:45)
[2023-06-14] MEDS: FUROSEMIDE 100 MG in DEXTROSE 5% 90 ML IV SCH (06:14)
--- NOTE | 2023-06-14 07:09 | XRay Report ---
XR chest 1V portable HISTORY: 67 years-old Male Follow up on pulmonary edema acute shortness of breath COMPARISON: 06/10/2023 TECHNIQUE: AP view of the chest FINDINGS: Cardiac silhouette is enlarged. No pneumothorax. Pulmonary vascular congestion with interstitial coar sening again noted, mildly improved. Small right greater than left pleural effusions with persistent bibasilar opacities. IMPRESSION: 1. Cardiomegaly with mildly improved pulmonary edema. 2. Small right greater than left pleural effusions with mild bibasilar opacities are again noted. ACT 112: Negative or not required by law. The above report was generated using voice recognition software. It may contain grammatical, syntax o r spelling errors. Electronically signed by: Josiah Sanchez M.D. 06/14/2023 7:07 AM
[2023-06-14 07:47] LABS: Allen Test Pos (Pos)
[2023-06-14 07:48] LABS: Base Excess ABG 23.3 mEq/L (-9-1.8); HCO3 ABG 50 mmol/L (19-24); Oxygen Saturation ABG 98.6 % (90-95); PCO2 ABG 67 mmHg (35-46); PO2 ABG 93 mmHg (80-95); pH ABG 7.48 (7.35-7.45)
[2023-06-14 08:14] LABS: Basophils # (auto) 0.04 K/uL (0-0.2); Basophils % (auto) 0.5 %; Eosinophils # (auto) 0.27 K/uL (0-0.50); Eosinophils % (auto) 3.7 %; Hematocrit (blood only) 28.8 % (42.0-52.0); Immature Granulocytes # (auto) 0.03 K/uL (0.01-0.20); Immature Granulocytes % (auto) 0.4 %; Lymphocytes % (auto) 12.3 %; Mean Corpuscular Hemoglobin 27.4 pg (25.0-34.0); Mean Corpuscular Hgb Conc 31.3 g/dL (32.0-36.0); Mean Corpuscular Volume 87.5 fL (80.0-100.0); Mean Platelet Volume 9.4 fL (9.4-12.4); Monocytes # (auto) 0.93 K/uL (0.11-0.59); Monocytes % (auto) 12.8 %; Neutrophils # (auto) 5.12 K/uL (1.40-6.50); Neutrophils % (auto) 70.3 %; Platelet Count 294 K/uL (130-400); RDW Coefficient of Variation 16.8 % (11.5-14.5); RDW Standard Deviation 54.5 fL (36.4-46.3); Red Blood Count 3.29 M/uL (4.70-6.10); White Blood Count 7.29 K/ul (4.8-10.8)
[2023-06-14 08:34] LABS: INR 1.8 (0.9-1.1); Prothrombin Time 19.1 Seconds (9.0-12.0)
[2023-06-14] MEDS: guaiFENesin 600 MG TABCR PO SCH ×2 (08:52→20:10)
[2023-06-14] MEDS: UMECLIDINIUM/VILANTEROL 62.5/25MCG 7 PUFFS/INHALER INH SCH (08:52)
[2023-06-14] MEDS: POTASSIUM CHLORIDE CRTAB 20 MEQ TABCR PO SCH ×3 (08:52→20:10)
[2023-06-14] MEDS: carvediloL 3.125 MG TAB PO SCH ×2 (08:52→16:56)
[2023-06-14] MEDS: FLUTICASONE FUROATE 100MCG 14 PUFFS/INHALER INH SCH (08:52)
[2023-06-14] MEDS: SPIRONOLACTONE 25 MG TAB PO SCH (08:53)
[2023-06-14] MEDS: ATORVASTATIN 40 MG TAB PO SCH (08:53)
[2023-06-14] MEDS: PANTOprazole 40 MG TAB PO SCH (08:53)
[2023-06-14 09:04] LABS: Calcium 9.2 mg/dl (8.6-10.3); Creatinine Clr Calc Pharmacy 129.9 ml/min; Est GFR (Non-African American) 98.3 ml/min; Potassium 4.3 mmol/L (3.5-5.1)
[2023-06-14] MEDS: INSULIN ASPART PER UNIT CHARGE SC SCH ×4 (09:34→21:01)
--- NOTE | 2023-06-14 09:36 | Cardiology Progress Note ---
Date of Service June 14, 2023 Assessment & Plan (1) Acute on chronic congestive heart failure: (2) Chronic respiratory failure with hypoxia: (3) Chronic a-fib: (4) Obesity hypoventilation syndrome: Plan IMPRESSION: 67 year old male with acute on chronic heart failure, right greater than left. Echo with evidence of severe pulmonary HTN and volume overload. Volume status managed with IV Lasix and transitioned to a Lasix gtt. Renal function remains stable. Patient down close to 35 lbs, but remains hypervolemic. Morbid obesity and likely obesity hypoventilation syndrome contributing. PLAN: * Severe volume overload in the setting of acute on chronic combined right heart failure. Volume status improving. * Discontinue Lasix drip and transition to IVP lasix 40 mg BID. * BID electrolyte check * Goal is - 3.0 liters overnight * Barron in place * Given underlying hypoxia/hypercarbic respiratory failure, would need aggressive KCL repletion to avoid mount a significant hypochloremic metabolic alkalosis * K stable (4.3 this am) Continue KCL 40 meq po TID * K+ goal is 4.5-5 * Mag goal >2 * PT/OT -working to mobilize patient * Investigate underlying anemia- no active bleeding noted. Recommend goal hgb >10 given underlying CHF- will defer to primary team for management/work up. * Supplemental O2 as needed; wean as appropriate * Afib- chronic, Ventricular rate controlled * Continue Coreg 3.125 mg po BID (Home dose was 25 mg po BID) * On coumadin - adjust dosing - INR 1.8 (goal 2-3) - indication is afib * SBP @ goal (100-120 mmHg) * Enalapril 10 mg po per day (OFF) * May consider holding Imdur * Continue Aldactone 25 mg po per day * CRISTOFER /CPAP? / Bariatrics? Case discussed with Dr. Patrick- will follow. Admission and Anticipated Discharge Date Admission Date: June 10, 2023 Supervising Physician Co-Signing Physician Notes Patient seen and examined at the bedside. Fluid balance negative nearly 5 L over the past 24 hours. IV furosemide infusing. Stable renal function. Patient complains of ongoing cough with primarily clear/white sputum production. No orthopnea or PND. Edema improved. PE: VSS. Gen: NAD, AAO x3. Heart: Irregular rhythm, normal S1-S2. No murmur appreciated. Lungs: Diminished breath sounds bilaterally. No rales, rhonchi, wheeze. Extremities: 1+ bilateral pedal and pretibial edema. A/P: Agree with above AP history, physical exam, assessment and plan. Continue potassium supplementation. Discontinue IV furosemide infusion. Initiate furosemide 40 mg IV twice daily. Continue Aldactone, carvedilol, and oral anticoagulation with Coumadin for goal INR of 2.0-3.0. Supplement oxygen as needed. Enalapril will remain on hold currently, however, will restart at discharge if possible. Subjective 67-year-old male who initially presented to [facility] emergency department due to dyspnea and hypoxia-noted to be in acute on chronic heart failure with right greater than left. ECHO 06/10/2023-- Poor quality. LVEF 50-55%. Moderate TR. RV - moderate to severe dilation. RV pressure + volume overload. Severe Pulmonary HTN. Est PAP 76 mmHG Was started on IV Lasix 40 mg twice daily then ultimately transition to a Lasix drip at 5 mg/hr. Upon entrance into the room patient resting comfortably in the chair. Notes a significant improvement in his overall symptoms since admission. States that his breathing has been improving as well as his lower extremity edema. Continues to have some mild orthopnea as well as cough. +abdominal bloating. Continues to utilize supplemental oxygen therapy. Patient qualified for BiPAP with oxygen therapy also. Tele: AFIB 60-70s I&O: -1.4L Weight: 137.4 >> 122.1 kg Review of Systems Review of Systems: All systems reviewed & are unremarkable except as noted in HPI & below Physical Exam Physical Exam: Exam: Obese Glasses On O2 via NC JVP to 16 cmH20 S1S2 Distant 2/6 systolic murmur - soft CTA B Mild presacral edema 2+ LE edema to thighs Mild abdominal wall edema Constitutional: WD/WN, vitals as above + morbidly obese Neck: + thick neck Respiratory: normal respiratory effort; no labored breathing Auscultation: + rales; no wheezes Cardiovascular: Rate/Rhythm: regular rate and + irregularly irregular Heart Sounds: normal S1 and normal S2; no murmur Vessels: + JVD Extremities: + edema (2+ b/l edema to hips) Gastrointestinal (Abdomen): normal bowel sounds, soft, nontender, no hepatosplenomegaly Musculoskeletal: no cyanosis or clubbing, extremities motor strength 5/5 Skin: no rashes, warm and dry Psychiatric: A+Ox3, euthymic affect Results & Data Vital Signs (Past 12 Hours) Vital Signs Temp Pulse Pulse Pulse Resp BP Pulse Ox 06/14/23 07:56 36.7 C 76 20 145/81 H 93 06/14/23 07:03 68 24 96 06/14/23 07:02 24 96 06/14/23 05:50 68 06/14/23 03:49 68 18 124/48 L 92 06/14/23 02:34 68 06/13/23 23:04 68 06/13/23 22:03 80 06/13/23 22:14 37.1 C 63 18 104/51 L 94 Pulse Ox O2 Del Method O2 Del Method O2 Flow Rate O2 Flow Rate FiO2 06/14/23 07:56 Nasal Cannula 5 06/14/23 07:03 BiPAP 30 06/14/23 07:02 30 06/14/23 05:50 99 Nasal Cannula 4 06/14/23 03:49 Nasal Cannula 3.0 06/14/23 02:34 90 Nasal Cannula 4 06/13/23 23:04 06/13/23 22:03 93 Nasal Cannula 4 06/13/23 22:14 Nasal Cannula 3.0 Laboratory Results Coagulation 06/13/23 06/14/23 Range/Units 12:56 07:32 PT 19.0 H 19.1 H (9.0-12.0) Seconds CBC 06/14/23 Range/Units 07:33 WBC 7.29 (4.8-10.8) K/ul RBC 3.29 L (4.70-6.10) M/uL Hgb 9.0 L (14.0-18.0) g/dl Hct 28.8 L (42.0-52.0) % Plt Count 294 (130-400) K/uL Neut # (Auto) 5.12 (1.40-6.50) K/uL Lymph # (Auto) 0.90 L (1.2-3.4) K/uL Day # (Auto) 0.93 H (0.11-0.59) K/uL Eos # (Auto) 0.27 (0-0.50) K/uL Baso # (Auto) 0.04 (0-0.2) K/uL Comprehensive Metabolic Panel 06/14/23 Range/Units 07:32 Sodium 137 (136-145) mmol/L Potassium 4.3 (3.5-5.1) mmol/L Chloride 89 L (98-107) mmol/L Carbon Dioxide 45 H* (21-32) mmol/L BUN 28 H (6-23) mg/dl Creatinine 0.70 (0.6-1.4) mg/dl Glucose 107 H (70-99(Fasting)) mg/dl Calcium 9.2 (8.6-10.3) mg/dl Intake and Output 06/13/23 06/14/23 06/14/23 22:59 06:59 14:59 Intake Total 200 / 1385.083 899.25 / 1385.083 Output Total 800 / 4375 2074 / 4375 Balance -600 / -2989.917 -1175.75 / -2989.917 Intake: IV 99.25 / 185.083 Furosemide 100 mg In Dextrose 5 99.25 / 185.083 % 90 ml @ 5 MG/HR 5 mls/hr IV . Q20H OMAYRA Rx#:[id number] Oral 200 / 1200 800 / 1200 Output: Urine Amount (Catheter) / 4375 2074 Barron/Indwelling / [id number] Other: Weight 122.1 kg Weight Measurement Method Standing Scale
[2023-06-14 10:40] LABS: Magnesium 1.8 mg/dl (1.7-2.4)
--- NOTE | 2023-06-14 14:32 | Hospitalist Progress Note ---
Date of Service June 14, 2023 Assessment & Plan (1) Acute respiratory failure with hypoxia and hypercarbia: (2) Obesity hypoventilation syndrome: (3) Acute on chronic congestive heart failure: Plan Acute respiratory failure with hypoxia and hypercarbia Multifactorial secondary to acute on chronic diastolic heart failure, obesity hypoventilation syndrome, could have obstructive sleep apnea, severe pulm HTN, rhinovirus infection, COPD --CXR on admission personally reviewed:Cardiomegaly with pulmonary edema. Layering pleural effusions with bibasilar consolidation, right greater than left. --ECHO: Flattening of the interventricular septum is present consistent with right ventricular pressure/volume overload, left ventricular wall motion is grossly normal. EF 50 to 55%. Right ventricle appears to be dilated to a moderate to severe degree. Mild mitral regurgitation. Moderate tricuspid regurgitation. Severe pulmonary hypertension is present. -- Serological test positive for Entero/Rhinovirus --Normal procalcitonin --Blood cultures no growth till date Repeat chest x-ray personally reviewed from today; slightly improvement in pulmonary edema. Diuretics changed to Lasix 40 mg IV twice daily as per cardiology. Replete electrolytes as needed Continue home inhalers Will need outpatient PFTs, polysomnography. Prescription for BiPAP given to case management. Continue BiPAP at bedtime for now as per pulmonology. on Aldactone 25 mg daily Hold Imdur, enalapril for now due to low BP Chronic atrial fibrillation Continue carvedilol 3.125 mg twice a day (dose decreased due to low BP) On Coumadin for anticoagulation Normocytic anemia ? Unknown baseline Hemoglobin 8.7 Currently no bleeding issues Monitor DM II HbA1c 5.8 ? Reliability of HbA1c given anemia Hold p.o. meds Continue insulin while hospitalized Monitor bgS Morbid obesity BMI 46 GERD Continue PPI Hyperlipidemia Continue statin DVT Px: Coumadin CODE STATUS Full code Disposition PT OT done; recommend home PT OT. Time spent evaluating patient, direct bedside care, chart review, placing orders, interpretation of diagnostic studies, discussion with consultants, patient, and family members, as well as other required patient management activities is 60 minutes. Please note the above document was generated using voice recognition software. It may contain grammatical, syntax or spelling errors. Any formal questions or concerns about the content, text or information contained within the body of this dictation should be directly addressed to the provider for clarification Admission and Anticipated Discharge Date Admission Date: June 10, 2023 Subjective Patient seen and examined at bedside. He reports improvement in the shortness of breath. Urine output of 3 L in last 24 hours. Review of Systems Review of Systems: All systems reviewed & are unremarkable except as noted in Subjective Physical Exam Physical Exam: Physical Exam: Vitals signs as noted above General Appearance:Morbidly Obese, no apparent distress Head: normocephalic, Atraumatic Eyes: normal inspection, EOMI Neck: supple, Trachea midline Respiratory/Chest: Decreased breath sounds, CTA, No accessory muscle use Cardiovascular: Irregularly irregular, No murmur Abdomen/GI:Soft, Non tender, Bowel sounds present Extremities/Musculoskeletal:normal inspection, 1+ pedal edema Neurologic/Psych:AAOX3, grossly no focal neurological deficits Skin: normal color, warm Results & Data Results & Data Vital Signs (Past 12 Hours) Vital Signs Temp Pulse Pulse Resp BP Pulse Ox Pulse Ox 06/14/23 11:53 36.9 C 65 19 117/60 93 06/14/23 10:37 70 17 94 06/14/23 08:00 06/14/23 07:56 36.7 C 76 20 145/81 H 93 06/14/23 07:03 68 24 96 06/14/23 07:02 24 96 06/14/23 05:50 68 99 06/14/23 03:49 68 18 124/48 L 92 06/14/23 02:34 68 90 O2 Del Method O2 Del Method O2 Flow Rate O2 Flow Rate FiO2 06/14/23 11:53 Nasal Cannula 06/14/23 10:37 Nasal Cannula 4 06/14/23 08:00 Nasal Cannula 4 06/14/23 07:56 Nasal Cannula 5 06/14/23 07:03 BiPAP 30 06/14/23 07:02 30 06/14/23 05:50 Nasal Cannula 4 06/14/23 03:49 Nasal Cannula 3.0 06/14/23 02:34 Nasal Cannula 4 Laboratory Results Laboratory Results WBC 7.29 K/ul (4.8-10.8) 06/14/23 07:33 RBC 3.29 M/uL (4.70-6.10) L 06/14/23 07:33 Hgb 9.0 g/dl (14.0-18.0) L 06/14/23 07:33 Hct 28.8 % (42.0-52.0) L 06/14/23 07:33 MCV 87.5 fL (80.0-100.0) 06/14/23 07:33 MCH 27.4 pg (25.0-34.0) 06/14/23 07:33 MCHC 31.3 g/dL (32.0-36.0) L 06/14/23 07:33 RDW Std Deviation 54.5 fL (36.4-46.3) H 06/14/23 07:33 RDW Coeff of Dhaval 16.8 % (11.5-14.5) H 06/14/23 07:33 Plt Count 294 K/uL (130-400) 06/14/23 07:33 MPV 9.4 fL (9.4-12.4) 06/14/23 07:33 Immature Gran % (Auto) 0.4 % 06/14/23 07:33 Neut % (Auto) 70.3 % 06/14/23 07:33 Lymph % (Auto) 12.3 % 06/14/23 07:33 Evans % (Auto) 12.8 % 06/14/23 07:33 Eos % (Auto) 3.7 % 06/14/23 07:33 Baso % (Auto) 0.5 % 06/14/23 07:33 Neut # (Auto) 5.12 K/uL (1.40-6.50) 06/14/23 07:33 Lymph # (Auto) 0.90 K/uL (1.2-3.4) L 06/14/23 07:33 Evans # (Auto) 0.93 K/uL (0.11-0.59) H 06/14/23 07:33 Eos # (Auto) 0.27 K/uL (0-0.50) 06/14/23 07:33 Baso # (Auto) 0.04 K/uL (0-0.2) 06/14/23 07:33 Immature Gran # (Auto) 0.03 K/uL (0.01-0.20) 06/14/23 07:33 Neutrophils % (Manual) 75 % 06/13/23 05:50 Lymphocytes % (Manual) 10 % 06/13/23 05:50 Monocytes % (Manual) 11 % 06/13/23 05:50 Eosinophils % (Manual) 3 % 06/13/23 05:50 Basophils % (Manual) 1 % 06/13/23 05:50 Neutrophils # (Manual) 5.41 K/uL (1.40-6.50) 06/13/23 05:50 Total Absolute Neuts 5.41 K/uL (1.4-6.5) 06/13/23 05:50 Lymphocytes # (Manual) 0.72 K/uL (1.2-3.4) L 06/13/23 05:50 Total Abs Lymphocytes 0.72 K/uL (1.2-3.4) L 06/13/23 05:50 Monocytes # (Manual) 0.79 K/uL (0.11-0.59) H 06/13/23 05:50 Eosinophils # (Manual) 0.22 K/uL (0-0.50) 06/13/23 05:50 Basophils # (Manual) 0.07 K/uL (0-0.2) 06/13/23 05:50 Polychromasia 1+ 06/13/23 05:50 Stomatocytes 1+ 06/13/23 05:50 PT 19.1 Seconds (9.0-12.0) H 06/14/23 07:32 INR 1.8 (0.9-1.1) H 06/14/23 07:32 ABG pH 7.48 (7.35-7.45) H 06/14/23 07:33 ABG pCO2 67 mmHg (35-46) H 06/14/23 07:33 ABG pO2 93 mmHg (80-95) 06/14/23 07:33 ABG HCO3 50 mmol/L (19-24) H 06/14/23 07:33 ABG O2 Saturation 98.6 % (90-95) H 06/14/23 07:33 ABG Base Excess 23.3 mEq/L (-9-1.8) H 06/14/23 07:33 Morales Test Pos (Pos) 06/14/23 07:33 VBG pH 7.40 (7.36-7.41) 06/12/23 05:39 VBG pCO2 77 mmHg (38-50) H 06/12/23 05:39 VBG pO2 61 mmHg 06/12/23 05:39 VBG HCO3 48 mmol/L 06/12/23 05:39 VBG O2 Saturation 88.0 % 06/12/23 05:39 VBG Base Excess 18.5 mEq/L 06/12/23 05:39 Oxygen Given 4 L 06/14/23 07:33 Sodium 137 mmol/L (136-145) 06/14/23 07:32 Potassium 4.3 mmol/L (3.5-5.1) 06/14/23 07:32 Chloride 89 mmol/L (98-107) L 06/14/23 07:32 Carbon Dioxide 45 mmol/L (21-32) H* 06/14/23 07:32 Anion Gap 3 (3-11) 06/14/23 07:32 BUN 28 mg/dl (6-23) H 06/14/23 07:32 Creatinine 0.70 mg/dl (0.6-1.4) 06/14/23 07:32 Est Cr Clr Drug Dosing 129.9 ml/min 06/14/23 07:32 Est GFR ( Amer) 114.0 ml/min 06/14/23 07:32 Est GFR (Non-Af Amer) 98.3 ml/min 06/14/23 07:32 BUN/Creatinine Ratio 40.0 (10-20) H 06/14/23 07:32 Glucose 107 mg/dl (70-99(Fasting)) H 06/14/23 07:32 POC Glucose 126 mg/dl (70-99) H 06/14/23 11:48 Estimat Average Glucose 120 mg/dl 06/11/23 05:29 Hemoglobin A1c 5.8 % (4.5-5.6) H 06/11/23 05:29 Calcium 9.2 mg/dl (8.6-10.3) 06/14/23 07:32 Magnesium 1.8 mg/dl (1.7-2.4) 06/14/23 07:32 Magnesium Cancelled 06/14/23 07:32 Iron 17 mcg/dl (35-175) L 06/10/23 11:30 Unsaturated IBC 321 mcg/dl (155-355) 06/10/23 11:30 Transferrin 258 mg/dl (200-360) 06/10/23 11:30 Ferritin 53.8 ng/ml (8-388) 06/10/23 11:30 Total Bilirubin 0.4 mg/dl (0.2-1.0) 06/10/23 11:30 AST 17 U/L (13-39) 06/10/23 11:30 ALT 11 U/L (7-52) 06/10/23 11:30 Alkaline Phosphatase 93 U/L (34-104) 06/10/23 11:30 Troponin I High Sens 19.1 pg/ml (0-20) 06/10/23 11:30 B-Natriuretic Peptide 831 pg/ml (0-100) H 06/10/23 11:30 Total Protein 6.9 gm/dl (6.0-8.3) 06/10/23 11:30 Albumin 3.7 gm/dl (3.4-5.0) 06/10/23 11:30 Globulin 3.2 gm/dl (2.5-4.0) 06/10/23 11:30 Albumin/Globulin Ratio 1.2 (0.9-2) 06/10/23 11:30 Vitamin B12 405 pg/ml (180-914) 06/10/23 11:30 Folate 18.69 ng/ml (>5.38) 06/10/23 11:30 Procalcitonin 0.13 ng/ml (0-0.5) 06/10/23 11:30 Urine Color Yellow 06/10/23 Unknown Urine Appearance Clear (Clear) 06/10/23 Unknown Urine pH 5.0 (4.5-7.5) 06/10/23 Unknown Ur Specific [place] 1.013 (1.000-1.030) 06/10/23 Unknown Urine Protein Negative (Negative) 06/10/23 Unknown Urine Glucose (UA) 3+ (Negative) H 06/10/23 Unknown Urine Ketones Negative (Negative) 06/10/23 Unknown Urine Blood Negative (Negative) 06/10/23 Unknown Urine Nitrite Negative (Negative) 06/10/23 Unknown Urine Bilirubin Negative (Negative) 06/10/23 Unknown Urine Urobilinogen Negative (Negative) 06/10/23 Unknown Ur Leukocyte Esterase Negative (Negative) 06/10/23 Unknown Adenovirus (PCR) Not Detected (NotDetected) 06/10/23 Unknown B. pertussis DNA (PCR) Not Detected (NotDetected) 06/10/23 Unknown B.parapertussis DNA PCR Not Detected (NotDetected) 06/10/23 Unknown Lyme Disease IgG Ab Negative (Negative) 06/10/23 11:30 Lyme Disease IgM Ab Negative (Negative) 06/10/23 11:30 C. pneumoniae DNA (PCR) Not Detected (NotDetected) 06/10/23 Unknown Coronavirus OC43 (PCR) Not Detected (NotDetected) 06/10/23 Unknown Coronavirus HKU1 (PCR) Not Detected (NotDetected) 06/10/23 Unknown Coronavirus 229E (PCR) Not Detected (NotDetected) 06/10/23 Unknown SARS-CoV-2 (PCR) Not Detected (NotDetected) 06/10/23 Unknown Coronavirus NL63 (PCR) Not Detected (NotDetected) 06/10/23 Unknown Hepatitis C Ab (EIA) NON-REACTIVE (NON-REACTIVE) 06/11/23 05:29 Human Metapneumovir PCR Not Detected (NotDetected) 06/10/23 Unknown Influenza Type A (PCR) Not Detected (NotDetected) 06/10/23 Unknown Influenza Type B (PCR) Not Detected (NotDetected) 06/10/23 Unknown M. pneumoniae (PCR) Not Detected (NotDetected) 06/10/23 Unknown Parainfluenza 1 (PCR) Not Detected (NotDetected) 06/10/23 Unknown Parainfluenza 2 (PCR) Not Detected (NotDetected) 06/10/23 Unknown Parainfluenza 3 (PCR) Not Detected (NotDetected) 06/10/23 Unknown Parainfluenza 4 (PCR) Not Detected (NotDetected) 06/10/23 Unknown RSV (PCR) Not Detected (NotDetected) 06/10/23 Unknown Entero/Rhino (PCR) DETECTED (NotDetected) A* 06/10/23 Unknown Impressions Chest X-Ray 06/14/23 09:00 XR chest 1V portable HISTORY: 67 years-old Male Follow up on pulmonary edema acute shortness of breath COMPARISON: 06/10/2023 TECHNIQUE: AP view of the chest FINDINGS: Cardiac silhouette is enlarged. No pneumothorax. Pulmonary vascular congestion with interstitial coarsening again noted, mildly improved. Small right greater than left pleural effusions with persistent bibasilar opacities. IMPRESSION: 1. Cardiomegaly with mildly improved pulmonary edema. 2. Small right greater than left pleural effusions with mild bibasilar opacities are again noted. ACT 112: Negative or not required by law. The above report was generated using voice recognition software. It may contain grammatical, syntax or spelling errors. Electronically signed by: Josiah Sanchez M.D. 06/14/2023 7:07 AM
[2023-06-14] MEDS: WARFARIN SOD 10 MG TAB PO SCH (16:57)
[2023-06-14] MEDS: FUROSEMIDE 40 MG/4 ML VIAL IV SCH (16:58)
[2023-06-14 20:45] LABS: BUN Creatinine Ratio 36.5 (10-20); Calcium 9.2 mg/dl (8.6-10.3); Est GFR (African American) 105.2 ml/min; Est GFR (Non-African American) 90.8 ml/min; Potassium 4.8 mmol/L (3.5-5.1)
[2023-06-14] MEDS: ACETAMINOPHEN 325 MG TAB PO PRN (21:59)
[2023-06-15] MEDS: ALBUT/IPRATROP 3MG/0.5MG NEB 3 ML VIAL NEB SCH ×6 (02:53→22:46)
[2023-06-15 07:07] LABS: BUN Creatinine Ratio 44.3 (10-20); Calcium 9.3 mg/dl (8.6-10.3); Creatinine Clr Calc Pharmacy 130.7 ml/min; Est GFR (Non-African American) 98.3 ml/min; Potassium 4.9 mmol/L (3.5-5.1)
[2023-06-15 07:28] LABS: Basophils # (auto) 0.04 K/uL (0-0.2); Basophils % (auto) 0.5 %; Eosinophils # (auto) 0.32 K/uL (0-0.50); Eosinophils % (auto) 4.1 %; Hematocrit (blood only) 30.5 % (42.0-52.0); Hemoglobin 9.3 g/dl (14.0-18.0); Immature Granulocytes # (auto) 0.02 K/uL (0.01-0.20); Immature Granulocytes % (auto) 0.3 %; Lymphocytes % (auto) 13.9 %; Mean Corpuscular Hemoglobin 27.5 pg (25.0-34.0); Mean Corpuscular Hgb Conc 30.5 g/dL (32.0-36.0); Mean Corpuscular Volume 90.2 fL (80.0-100.0); Mean Platelet Volume 9.6 fL (9.4-12.4); Monocytes % (auto) 13.9 %; Neutrophils # (auto) 5.31 K/uL (1.40-6.50); Neutrophils % (auto) 67.3 %; Platelet Count 301 K/uL (130-400); RDW Coefficient of Variation 16.6 % (11.5-14.5); RDW Standard Deviation 54.9 fL (36.4-46.3); Red Blood Count 3.38 M/uL (4.70-6.10); White Blood Count 7.89 K/ul (4.8-10.8)
[2023-06-15] MEDS: FUROSEMIDE 40 MG/4 ML VIAL IV SCH ×2 (08:35→13:15)
[2023-06-15] MEDS: ATORVASTATIN 40 MG TAB PO SCH (08:35)
[2023-06-15] MEDS: POTASSIUM CHLORIDE CRTAB 20 MEQ TABCR PO SCH (08:35)
[2023-06-15] MEDS: guaiFENesin 600 MG TABCR PO SCH ×2 (08:35→20:38)
[2023-06-15] MEDS: UMECLIDINIUM/VILANTEROL 62.5/25MCG 7 PUFFS/INHALER INH SCH (08:36)
[2023-06-15] MEDS: carvediloL 3.125 MG TAB PO SCH ×2 (08:36→17:02)
[2023-06-15] MEDS: SPIRONOLACTONE 25 MG TAB PO SCH (08:36)
[2023-06-15] MEDS: PANTOprazole 40 MG TAB PO SCH (08:36)
[2023-06-15] MEDS: FLUTICASONE FUROATE 100MCG 14 PUFFS/INHALER INH SCH (08:36)
[2023-06-15] MEDS: INSULIN ASPART PER UNIT CHARGE SC SCH ×4 (08:38→20:54)
--- NOTE | 2023-06-15 11:00 | Cardiology Progress Note ---
Date of Service June 15, 2023 Assessment & Plan (1) Acute on chronic congestive heart failure: (2) Chronic respiratory failure with hypoxia: (3) Chronic a-fib: (4) Obesity hypoventilation syndrome: Plan Continue furosemide 40 mg IV twice daily. Reduce potassium supplementation to 40 mEq daily (reduced from 3 times daily). Continue Aldactone, carvedilol, and oral anticoagulation with Coumadin for goal INR of 2.0-3.0. Supplement oxygen as needed. Enalapril will remain on hold currently, however, will restart at discharge if possible. Admission and Anticipated Discharge Date Admission Date: June 10, 2023 Subjective Patient seen examined the bedside. Cough improved. Tolerating diet and medications. Telemetry is atrial fibrillation heart rate 50-60s. Serum creatinine remained stable. Fluid balance -4.5 L. Review of Systems Review of Systems: All systems reviewed & are unremarkable except as noted in Subjective Physical Exam Physical Exam: PE: VSS. Gen: NAD, AAO x3. Heart: Irregular rhythm, normal S1-S2. No murmur appreciated. Lungs: Diminished breath sounds bilaterally. No rales, rhonchi, wheeze. Extremities: 1+ bilateral pedal and pretibial edema. Results & Data Vital Signs (Past 12 Hours) Vital Signs Temp Pulse Pulse Pulse Resp BP BP 06/15/23 08:00 06/15/23 08:00 67 06/15/23 07:52 36.8 C 72 22 122/90 06/15/23 07:30 76 18 06/15/23 04:18 36.9 C 80 20 123/74 06/15/23 02:54 25 H 06/15/23 02:53 25 H 06/14/23 23:23 37.4 C 63 18 118/80 Pulse Ox O2 Del Method O2 Flow Rate FiO2 06/15/23 08:00 Nasal Cannula 3 06/15/23 08:00 06/15/23 07:52 92 Nasal Cannula 3 06/15/23 07:30 98 Nasal Cannula 4 06/15/23 04:18 98 BiPAP 06/15/23 02:54 BiPAP 30 06/15/23 02:53 30 06/14/23 23:23 98 BiPAP Laboratory Results CBC 06/15/23 Range/Units 05:36 WBC 7.89 (4.8-10.8) K/ul RBC 3.38 L (4.70-6.10) M/uL Hgb 9.3 L (14.0-18.0) g/dl Hct 30.5 L (42.0-52.0) % Plt Count 301 (130-400) K/uL Neut # (Auto) 5.31 (1.40-6.50) K/uL Lymph # (Auto) 1.10 L (1.2-3.4) K/uL [place] # (Auto) 1.10 H (0.11-0.59) K/uL Eos # (Auto) 0.32 (0-0.50) K/uL Baso # (Auto) 0.04 (0-0.2) K/uL Comprehensive Metabolic Panel 06/14/23 06/15/23 Range/Units 19:43 05:36 Sodium 135 L 137 (136-145) mmol/L Potassium 4.8 4.9 (3.5-5.1) mmol/L Chloride 88 L 92 L (98-107) mmol/L Carbon Dioxide 42 H* 41 H* (21-32) mmol/L BUN 31 H 31 H (6-23) mg/dl Creatinine 0.85 0.70 (0.6-1.4) mg/dl Glucose 139 H 105 H (70-99(Fasting)) mg/dl Calcium 9.2 9.3 (8.6-10.3) mg/dl Intake and Output 06/14/23 06/15/23 06/15/23 22:59 06:59 14:59 Output Total 3100 / 5100 Balance -3100 / -4588.25 Output: Urine Amount (Catheter) 3100 / 5100 Barron/Indwelling 3100 / 5100 Other: Weight 123.4 kg Weight Measurement Method Built in [facility]
[2023-06-15] MEDS: MAGNESIUM SULFATE / D5W 1 GM/100 ML BAG IV SCH ×2 (12:22→14:23)
--- NOTE | 2023-06-15 13:32 | Hospitalist Progress Note ---
Date of Service June 15, 2023 Assessment & Plan (1) Acute respiratory failure with hypoxia and hypercarbia: (2) Obesity hypoventilation syndrome: (3) Acute on chronic congestive heart failure: Plan Acute respiratory failure with hypoxia and hypercarbia Multifactorial secondary to acute on chronic diastolic heart failure, obesity hypoventilation syndrome, could have obstructive sleep apnea, severe pulm HTN, rhinovirus infection, COPD --CXR on admission personally reviewed:Cardiomegaly with pulmonary edema. Layering pleural effusions with bibasilar consolidation, right greater than left. --ECHO: Flattening of the interventricular septum is present consistent with right ventricular pressure/volume overload, left ventricular wall motion is grossly normal. EF 50 to 55%. Right ventricle appears to be dilated to a moderate to severe degree. Mild mitral regurgitation. Moderate tricuspid regurgitation. Severe pulmonary hypertension is present. -- Serological test positive for Entero/Rhinovirus --Normal procalcitonin --Blood cultures no growth till date Repeat chest x-ray personally reviewed from today; slightly improvement in pulmonary edema. Diuretics changed to Lasix 40 mg IV twice daily as per cardiology. Replete electrolytes as needed Continue home inhalers Will need outpatient PFTs, polysomnography. Prescription for BiPAP given to case management. Continue BiPAP at bedtime for now as per pulmonology. on Aldactone 25 mg daily Hold Imdur, enalapril for now due to low BP Chronic atrial fibrillation Continue carvedilol 3.125 mg twice a day (dose decreased due to low BP) On Coumadin for anticoagulation Normocytic anemia ? Unknown baseline Hemoglobin stable Currently no bleeding issues Monitor DM II HbA1c 5.8 ? Reliability of HbA1c given anemia Hold p.o. meds Continue insulin while hospitalized Monitor bgS Morbid obesity BMI 46 GERD Continue PPI Hyperlipidemia Continue statin DVT Px: Coumadin CODE STATUS Full code Disposition PT OT done; recommend home PT OT. Continues to be hospitalized due to need for IV diuretics for acute on chronic diastolic heart failure. Time spent evaluating patient, direct bedside care, chart review, placing orders, interpretation of diagnostic studies, discussion with consultants, patient, and family members, as well as other required patient management activities is 60 minutes. Please note the above document was generated using voice recognition software. It may contain grammatical, syntax or spelling errors. Any formal questions or concerns about the content, text or information contained within the body of this dictation should be directly addressed to the provider for clarification Admission and Anticipated Discharge Date Admission Date: June 10, 2023 Subjective Patient seen and examined at bedside. He is sitting up on the chair; not in distress. Urine output of 7 L in last 24 hours. Review of Systems Review of Systems: All systems reviewed & are unremarkable except as noted in Subjective Physical Exam Physical Exam: Physical Exam: Vitals signs as noted above General Appearance:Morbidly Obese, no apparent distress Head: normocephalic, Atraumatic Eyes: normal inspection, EOMI Neck: supple, Trachea midline Respiratory/Chest: Decreased breath sounds, CTA, No accessory muscle use Cardiovascular: Irregularly irregular, No murmur Abdomen/GI:Soft, Non tender, Bowel sounds present Extremities/Musculoskeletal:normal inspection, 1+ pedal edema Neurologic/Psych:AAOX3, grossly no focal neurological deficits Skin: normal color, warm Results & Data Results & Data Vital Signs (Past 12 Hours) Vital Signs Temp Pulse Pulse Pulse Resp BP BP 06/15/23 11:23 36.8 C 60 22 128/80 06/15/23 11:12 77 18 06/15/23 08:00 06/15/23 08:00 67 06/15/23 07:52 36.8 C 72 22 122/90 06/15/23 07:30 76 18 06/15/23 04:18 36.9 C 80 20 123/74 06/15/23 02:54 25 H 06/15/23 02:53 25 H Pulse Ox O2 Del Method O2 Flow Rate FiO2 06/15/23 11:23 96 Nasal Cannula 3 06/15/23 11:12 93 Nasal Cannula 3 06/15/23 08:00 Nasal Cannula 3 06/15/23 08:00 06/15/23 07:52 92 Nasal Cannula 3 06/15/23 07:30 98 Nasal Cannula 4 06/15/23 04:18 98 BiPAP 06/15/23 02:54 BiPAP 30 06/15/23 02:53 30 Laboratory Results Laboratory Results WBC 7.89 K/ul (4.8-10.8) 06/15/23 05:36 RBC 3.38 M/uL (4.70-6.10) L 06/15/23 05:36 Hgb 9.3 g/dl (14.0-18.0) L 06/15/23 05:36 Hct 30.5 % (42.0-52.0) L 06/15/23 05:36 MCV 90.2 fL (80.0-100.0) 06/15/23 05:36 MCH 27.5 pg (25.0-34.0) 06/15/23 05:36 MCHC 30.5 g/dL (32.0-36.0) L 06/15/23 05:36 RDW Std Deviation 54.9 fL (36.4-46.3) H 06/15/23 05:36 RDW Coeff of Dhaval 16.6 % (11.5-14.5) H 06/15/23 05:36 Plt Count 301 K/uL (130-400) 06/15/23 05:36 MPV 9.6 fL (9.4-12.4) 06/15/23 05:36 Immature Gran % (Auto) 0.3 % 06/15/23 05:36 Neut % (Auto) 67.3 % 06/15/23 05:36 Lymph % (Auto) 13.9 % 06/15/23 05:36 Ashe % (Auto) 13.9 % 06/15/23 05:36 Eos % (Auto) 4.1 % 06/15/23 05:36 Baso % (Auto) 0.5 % 06/15/23 05:36 Neut # (Auto) 5.31 K/uL (1.40-6.50) 06/15/23 05:36 Lymph # (Auto) 1.10 K/uL (1.2-3.4) L 06/15/23 05:36 Ashe # (Auto) 1.10 K/uL (0.11-0.59) H 06/15/23 05:36 Eos # (Auto) 0.32 K/uL (0-0.50) 06/15/23 05:36 Baso # (Auto) 0.04 K/uL (0-0.2) 06/15/23 05:36 Immature Gran # (Auto) 0.02 K/uL (0.01-0.20) 06/15/23 05:36 Neutrophils % (Manual) 75 % 06/13/23 05:50 Lymphocytes % (Manual) 10 % 06/13/23 05:50 Monocytes % (Manual) 11 % 06/13/23 05:50 Eosinophils % (Manual) 3 % 06/13/23 05:50 Basophils % (Manual) 1 % 06/13/23 05:50 Neutrophils # (Manual) 5.41 K/uL (1.40-6.50) 06/13/23 05:50 Total Absolute Neuts 5.41 K/uL (1.4-6.5) 06/13/23 05:50 Lymphocytes # (Manual) 0.72 K/uL (1.2-3.4) L 06/13/23 05:50 Total Abs Lymphocytes 0.72 K/uL (1.2-3.4) L 06/13/23 05:50 Monocytes # (Manual) 0.79 K/uL (0.11-0.59) H 06/13/23 05:50 Eosinophils # (Manual) 0.22 K/uL (0-0.50) 06/13/23 05:50 Basophils # (Manual) 0.07 K/uL (0-0.2) 06/13/23 05:50 Polychromasia 1+ 06/13/23 05:50 Stomatocytes 1+ 06/13/23 05:50 PT 19.1 Seconds (9.0-12.0) H 06/14/23 07:32 INR 1.8 (0.9-1.1) H 06/14/23 07:32 ABG pH 7.48 (7.35-7.45) H 06/14/23 07:33 ABG pCO2 67 mmHg (35-46) H 06/14/23 07:33 ABG pO2 93 mmHg (80-95) 06/14/23 07:33 ABG HCO3 50 mmol/L (19-24) H 06/14/23 07:33 ABG O2 Saturation 98.6 % (90-95) H 06/14/23 07:33 ABG Base Excess 23.3 mEq/L (-9-1.8) H 06/14/23 07:33 Morales Test Pos (Pos) 06/14/23 07:33 VBG pH 7.40 (7.36-7.41) 06/12/23 05:39 VBG pCO2 77 mmHg (38-50) H 06/12/23 05:39 VBG pO2 61 mmHg 06/12/23 05:39 VBG HCO3 48 mmol/L 06/12/23 05:39 VBG O2 Saturation 88.0 % 06/12/23 05:39 VBG Base Excess 18.5 mEq/L 06/12/23 05:39 Oxygen Given 4 L 06/14/23 07:33 Sodium 137 mmol/L (136-145) 06/15/23 05:36 Potassium 4.9 mmol/L (3.5-5.1) 06/15/23 05:36 Chloride 92 mmol/L (98-107) L 06/15/23 05:36 Carbon Dioxide 41 mmol/L (21-32) H* 06/15/23 05:36 Anion Gap 4 (3-11) 06/15/23 05:36 BUN 31 mg/dl (6-23) H 06/15/23 05:36 Creatinine 0.70 mg/dl (0.6-1.4) 06/15/23 05:36 Est Cr Clr Drug Dosing 130.7 ml/min 06/15/23 05:36 Est GFR ( Amer) 114.0 ml/min 06/15/23 05:36 Est GFR (Non-Af Amer) 98.3 ml/min 06/15/23 05:36 BUN/Creatinine Ratio 44.3 (10-20) H 06/15/23 05:36 Glucose 105 mg/dl (70-99(Fasting)) H 06/15/23 05:36 POC Glucose 102 mg/dl (70-99) H 06/15/23 11:27 Estimat Average Glucose 120 mg/dl 06/11/23 05:29 Hemoglobin A1c 5.8 % (4.5-5.6) H 06/11/23 05:29 Calcium 9.3 mg/dl (8.6-10.3) 06/15/23 05:36 Magnesium 1.8 mg/dl (1.7-2.4) 06/14/23 07:32 Magnesium Cancelled 06/14/23 07:32 Iron 17 mcg/dl (35-175) L 06/10/23 11:30 Unsaturated IBC 321 mcg/dl (155-355) 06/10/23 11:30 Transferrin 258 mg/dl (200-360) 06/10/23 11:30 Ferritin 53.8 ng/ml (8-388) 06/10/23 11:30 Total Bilirubin 0.4 mg/dl (0.2-1.0) 06/10/23 11:30 AST 17 U/L (13-39) 06/10/23 11:30 ALT 11 U/L (7-52) 06/10/23 11:30 Alkaline Phosphatase 93 U/L (34-104) 06/10/23 11:30 Troponin I High Sens 19.1 pg/ml (0-20) 06/10/23 11:30 B-Natriuretic Peptide 831 pg/ml (0-100) H 06/10/23 11:30 Total Protein 6.9 gm/dl (6.0-8.3) 06/10/23 11:30 Albumin 3.7 gm/dl (3.4-5.0) 06/10/23 11:30 Globulin 3.2 gm/dl (2.5-4.0) 06/10/23 11:30 Albumin/Globulin Ratio 1.2 (0.9-2) 06/10/23 11:30 Vitamin B12 405 pg/ml (180-914) 06/10/23 11:30 Folate 18.69 ng/ml (>5.38) 06/10/23 11:30 Procalcitonin 0.13 ng/ml (0-0.5) 06/10/23 11:30 Urine Color Yellow 06/10/23 Unknown Urine Appearance Clear (Clear) 06/10/23 Unknown Urine pH 5.0 (4.5-7.5) 06/10/23 Unknown Ur Specific Murray 1.013 (1.000-1.030) 06/10/23 Unknown Urine Protein Negative (Negative) 06/10/23 Unknown Urine Glucose (UA) 3+ (Negative) H 06/10/23 Unknown Urine Ketones Negative (Negative) 06/10/23 Unknown Urine Blood Negative (Negative) 06/10/23 Unknown Urine Nitrite Negative (Negative) 06/10/23 Unknown Urine Bilirubin Negative (Negative) 06/10/23 Unknown Urine Urobilinogen Negative (Negative) 06/10/23 Unknown Ur Leukocyte Esterase Negative (Negative) 06/10/23 Unknown Adenovirus (PCR) Not Detected (NotDetected) 06/10/23 Unknown B. pertussis DNA (PCR) Not Detected (NotDetected) 06/10/23 Unknown B.parapertussis DNA PCR Not Detected (NotDetected) 06/10/23 Unknown Lyme Disease IgG Ab Negative (Negative) 06/10/23 11:30 Lyme Disease IgM Ab Negative (Negative) 06/10/23 11:30 C. pneumoniae DNA (PCR) Not Detected (NotDetected) 06/10/23 Unknown Coronavirus OC43 (PCR) Not Detected (NotDetected) 06/10/23 Unknown Coronavirus HKU1 (PCR) Not Detected (NotDetected) 06/10/23 Unknown Coronavirus 229E (PCR) Not Detected (NotDetected) 06/10/23 Unknown SARS-CoV-2 (PCR) Not Detected (NotDetected) 06/10/23 Unknown Coronavirus NL63 (PCR) Not Detected (NotDetected) 06/10/23 Unknown Hepatitis C Ab (EIA) NON-REACTIVE (NON-REACTIVE) 06/11/23 05:29 Human Metapneumovir PCR Not Detected (NotDetected) 06/10/23 Unknown Influenza Type A (PCR) Not Detected (NotDetected) 06/10/23 Unknown Influenza Type B (PCR) Not Detected (NotDetected) 06/10/23 Unknown M. pneumoniae (PCR) Not Detected (NotDetected) 06/10/23 Unknown Parainfluenza 1 (PCR) Not Detected (NotDetected) 06/10/23 Unknown Parainfluenza 2 (PCR) Not Detected (NotDetected) 06/10/23 Unknown Parainfluenza 3 (PCR) Not Detected (NotDetected) 06/10/23 Unknown Parainfluenza 4 (PCR) Not Detected (NotDetected) 06/10/23 Unknown RSV (PCR) Not Detected (NotDetected) 06/10/23 Unknown Entero/Rhino (PCR) DETECTED (NotDetected) A* 06/10/23 Unknown Impressions Chest X-Ray 06/14/23 09:00 XR chest 1V portable HISTORY: 67 years-old Male Follow up on pulmonary edema acute shortness of breath COMPARISON: 06/10/2023 TECHNIQUE: AP view of the chest FINDINGS: Cardiac silhouette is enlarged. No pneumothorax. Pulmonary vascular congestion with interstitial coarsening again noted, mildly improved. Small right greater than left pleural effusions with persistent bibasilar opacities. IMPRESSION: 1. Cardiomegaly with mildly improved pulmonary edema. 2. Small right greater than left pleural effusions with mild bibasilar opacities are again noted. ACT 112: Negative or not required by law. The above report was generated using voice recognition software. It may contain grammatical, syntax or spelling errors. Electronically signed by: Josiah Sanchez M.D. 06/14/2023 7:07 AM
[2023-06-15] MEDS: WARFARIN SOD 10 MG TAB PO SCH (17:01)
[2023-06-16] MEDS: ALBUT/IPRATROP 3MG/0.5MG NEB 3 ML VIAL NEB SCH ×6 (03:07→22:53)
[2023-06-16] MEDS: FUROSEMIDE 40 MG/4 ML VIAL IV SCH ×2 (06:10→13:54)
[2023-06-16 06:21] LABS: BUN Creatinine Ratio 39.4 (10-20); Calcium 9.6 mg/dl (8.6-10.3); Creatinine Clr Calc Pharmacy 125.7 ml/min; Est GFR (African American) 113.3 ml/min; Est GFR (Non-African American) 97.8 ml/min; Potassium 4.8 mmol/L (3.5-5.1)
--- NOTE | 2023-06-16 08:36 | Cardiology Progress Note ---
Date of Service June 16, 2023 Assessment & Plan (1) Acute on chronic congestive heart failure: (2) Chronic respiratory failure with hypoxia: (3) Chronic a-fib: (4) Obesity hypoventilation syndrome: Plan Continue furosemide 40 mg IV twice daily. Discontinue potassium supplemen tation. Restart enalapril at discharge. Continue Aldactone, carvedilol, and oral anticoagulation with Coumadin for goal INR of 2.0-3.0. Supplement oxygen as needed. Transition IV furosemide to oral torsemide 40 mg daily at discharge. Patient will require outpatient basic metabolic panel in heart failure clinic follow-up in 1 week. Thank you for allow me to participate in the care of your patient. Admission and Anticipated Discharge Date Admission Date: June 10, 2023 Subjective Patient seen and examined at the bedside. Fluid balance negative an additional 4.7 L. Telemetry reveals atrial fibrillation in the 60s. Patient feeling better today. Cough improved. Edema less prominent. Requesting discharge tomorrow if possible, 06/17/2023. Reports outpatient dose of furosemide, 40 mg daily. Review of Systems Review of Systems: All systems reviewed & are unremarkable except as noted in Subjective Physical Exam Physical Exam: PE: VSS. Gen: NAD, AAO x3. Heart: Irregular rhythm, normal S1-S2. No murmur appreciated. Lungs: Diminished breath sounds bilaterally. No rales, rhonchi, wheeze. Extremities: 1+ bilateral pedal and pretibial edema. Results & Data Vital Signs (Past 12 Hours) Vital Signs Temp Pulse Pulse Resp BP BP Pulse Ox 06/16/23 07:27 37.3 C 68 18 124/74 98 06/16/23 07:40 78 18 98 06/16/23 04:50 37.4 C 51 L 20 130/75 98 06/15/23 22:02 62 06/16/23 03:09 60 25 H 96 06/16/23 03:08 60 25 H 96 06/16/23 01:04 36.7 C 68 18 130/86 95 06/16/23 00:14 64 23 96 06/15/23 22:46 60 18 96 O2 Del Method O2 Flow Rate FiO2 06/16/23 07:27 Nasal Cannula 3 06/16/23 07:40 Nasal Cannula 3 06/16/23 04:50 BiPAP 06/15/23 22:02 06/16/23 03:09 BiPAP 30 06/16/23 03:08 30 06/16/23 01:04 Nasal Cannula 3 06/16/23 00:14 30 06/15/23 22:46 Nasal Cannula 3
[2023-06-16] MEDS: ATORVASTATIN 40 MG TAB PO SCH (08:58)
[2023-06-16] MEDS: carvediloL 3.125 MG TAB PO SCH ×2 (08:58→17:53)
[2023-06-16] MEDS: PANTOprazole 40 MG TAB PO SCH (08:59)
[2023-06-16] MEDS: guaiFENesin 600 MG TABCR PO SCH ×2 (08:59→20:51)
[2023-06-16] MEDS: FLUTICASONE FUROATE 100MCG 14 PUFFS/INHALER INH SCH (08:59)
[2023-06-16] MEDS: UMECLIDINIUM/VILANTEROL 62.5/25MCG 7 PUFFS/INHALER INH SCH (09:00)
[2023-06-16] MEDS: POTASSIUM CHLORIDE CRTAB 20 MEQ TABCR PO SCH (09:00)
[2023-06-16] MEDS: SPIRONOLACTONE 25 MG TAB PO SCH (09:00)
[2023-06-16] MEDS: INSULIN ASPART PER UNIT CHARGE SC SCH ×4 (09:14→21:02)
--- NOTE | 2023-06-16 15:09 | Hospitalist Progress Note ---
Date of Service June 16, 2023 Assessment & Plan (1) Acute respiratory failure with hypoxia and hypercarbia: (2) Obesity hypoventilation syndrome: (3) Acute on chronic congestive heart failure: Plan Acute respiratory failure with hypoxia and hypercarbia Multifactorial secondary to acute on chronic diastolic heart failure, obesity hypoventilation syndrome, could have obstructive sleep apnea, severe pulm HTN, rhinovirus infection, COPD --CXR on admission personally reviewed:Cardiomegaly with pulmonary edema. Layering pleural effusions with bibasilar consolidation, right greater than left. --ECHO: Flattening of the interventricular septum is present consistent with right ventricular pressure/volume overload, left ventricular wall motion is grossly normal. EF 50 to 55%. Right ventricle appears to be dilated to a moderate to severe degree. Mild mitral regurgitation. Moderate tricuspid regurgitation. Severe pulmonary hypertension is present. -- Serological test positive for Entero/Rhinovirus --Normal procalcitonin --Blood cultures no growth till date Repeat chest x-ray personally reviewed from today; slightly improvement in pulmonary edema. Diuretics changed to Lasix 40 mg IV twice daily as per cardiology. Plan to place him on torsemide 40 mg at discharge as per cardiology. Replete electrolytes as needed Continue home inhalers Will need outpatient PFTs, polysomnography. Prescription for BiPAP given to case management. Continue BiPAP at bedtime for now as per pulmonology. on Aldactone 25 mg daily Enalapril to be just restarted at discharge. Chronic atrial fibrillation Continue carvedilol 3.125 mg twice a day (dose decreased due to low BP) On Coumadin for anticoagulation Normocytic anemia ? Unknown baseline Hemoglobin stable Currently no bleeding issues Monitor DM II HbA1c 5.8 ? Reliability of HbA1c given anemia Hold p.o. meds Continue insulin while hospitalized Monitor bgS Morbid obesity BMI 46 GERD Continue PPI Hyperlipidemia Continue statin DVT Px: Coumadin CODE STATUS Full code Disposition PT OT done; recommend home PT OT. Continues to be hospitalized due to need for IV diuretics for acute on chronic diastolic heart failure. Time spent evaluating patient, direct bedside care, chart review, placing orders, interpretation of diagnostic studies, discussion with consultants, patient, and family members, as well as other required patient management activ ities is 60 minutes. Please note the above document was generated using voice recognition software. It may contain grammatical, syntax or spelling errors. Any formal questions or concerns about the content, text or information contained within the body of this dictation should be directly addressed to the provider for clarification Admission and Anticipated Discharge Date Admission Date: June 10, 2023 Subjective Patient seen and examined at bedside. He is sitting up on the chair at the side of the bed. He is comfortable. Urine output of 4300 cc in last 24 hours. Review of Systems Review of Systems: All systems reviewed & are unremarkable except as noted in Subjective Physical Exam Physical Exam: Physical Exam: Vitals signs as noted above General Appearance:Morbidly Obese, no apparent distress Head: normocephalic, Atraumatic Eyes: normal inspection, EOMI Neck: supple, Trachea midline Respiratory/Chest: Decreased breath sounds, CTA, No accessory muscle use Cardiovascular: Irregularly irregular, No murmur Abdomen/GI:Soft, Non tender, Bowel sounds present Extremities/Musculoskeletal:normal inspection, 1+ pedal edema Neurologic/Psych:AAOX3, grossly no focal neurological deficits Skin: normal color, warm Results & Data Results & Data Vital Signs (Past 12 Hours) Vital Signs Temp Pulse Pulse Resp BP BP Pulse Ox 06/16/23 14:43 86 18 96 06/16/23 13:10 06/16/23 11:28 36.9 C 61 18 117/68 96 06/16/23 11:02 80 18 98 06/16/23 07:50 79 06/16/23 07:27 37.3 C 68 18 124/74 98 06/16/23 07:40 78 18 98 06/16/23 04:50 37.4 C 51 L 20 130/75 98 06/16/23 03:09 60 25 H 96 O2 Del Method O2 Flow Rate FiO2 06/16/23 14:43 Nasal Cannula 3 06/16/23 13:10 Nasal Cannula, BiPAP 3 06/16/23 11:28 Nasal Cannula 3 06/16/23 11:02 Nasal Cannula 3 06/16/23 07:50 06/16/23 07:27 Nasal Cannula 3 06/16/23 07:40 Nasal Cannula 3 06/16/23 04:50 BiPAP 06/16/23 03:09 BiPAP 30 Laboratory Results Laboratory Results WBC 7.89 K/ul (4.8-10.8) 06/15/23 05:36 RBC 3.38 M/uL (4.70-6.10) L 06/15/23 05:36 Hgb 9.3 g/dl (14.0-18.0) L 06/15/23 05:36 Hct 30.5 % (42.0-52.0) L 06/15/23 05:36 MCV 90.2 fL (80.0-100.0) 06/15/23 05:36 MCH 27.5 pg (25.0-34.0) 06/15/23 05:36 MCHC 30.5 g/dL (32.0-36.0) L 06/15/23 05:36 RDW Std Deviation 54.9 fL (36.4-46.3) H 06/15/23 05:36 RDW Coeff of Dhaval 16.6 % (11.5-14.5) H 06/15/23 05:36 Plt Count 301 K/uL (130-400) 06/15/23 05:36 MPV 9.6 fL (9.4-12.4) 06/15/23 05:36 Immature Gran % (Auto) 0.3 % 06/15/23 05:36 Neut % (Auto) 67.3 % 06/15/23 05:36 Lymph % (Auto) 13.9 % 06/15/23 05:36 [place] % (Auto) 13.9 % 06/15/23 05:36 Eos % (Auto) 4.1 % 06/15/23 05:36 Baso % (Auto) 0.5 % 06/15/23 05:36 Neut # (Auto) 5.31 K/uL (1.40-6.50) 06/15/23 05:36 Lymph # (Auto) 1.10 K/uL (1.2-3.4) L 06/15/23 05:36 [place] # (Auto) 1.10 K/uL (0.11-0.59) H 06/15/23 05:36 Eos # (Auto) 0.32 K/uL (0-0.50) 06/15/23 05:36 Baso # (Auto) 0.04 K/uL (0-0.2) 06/15/23 05:36 Immature Gran # (Auto) 0.02 K/uL (0.01-0.20) 06/15/23 05:36 Neutrophils % (Manual) 75 % 06/13/23 05:50 Lymphocytes % (Manual) 10 % 06/13/23 05:50 Monocytes % (Manual) 11 % 06/13/23 05:50 Eosinophils % (Manual) 3 % 06/13/23 05:50 Basophils % (Manual) 1 % 06/13/23 05:50 Neutrophils # (Manual) 5.41 K/uL (1.40-6.50) 06/13/23 05:50 Total Absolute Neuts 5.41 K/uL (1.4-6.5) 06/13/23 05:50 Lymphocytes # (Manual) 0.72 K/uL (1.2-3.4) L 06/13/23 05:50 Total Abs Lymphocytes 0.72 K/uL (1.2-3.4) L 06/13/23 05:50 Monocytes # (Manual) 0.79 K/uL (0.11-0.59) H 06/13/23 05:50 Eosinophils # (Manual) 0.22 K/uL (0-0.50) 06/13/23 05:50 Basophils # (Manual) 0.07 K/uL (0-0.2) 06/13/23 05:50 Polychromasia 1+ 06/13/23 05:50 Stomatocytes 1+ 06/13/23 05:50 PT 19.1 Seconds (9.0-12.0) H 06/14/23 07:32 INR 1.8 (0.9-1.1) H 06/14/23 07:32 ABG pH 7.48 (7.35-7.45) H 06/14/23 07:33 ABG pCO2 67 mmHg (35-46) H 06/14/23 07:33 ABG pO2 93 mmHg (80-95) 06/14/23 07:33 ABG HCO3 50 mmol/L (19-24) H 06/14/23 07:33 ABG O2 Saturation 98.6 % (90-95) H 06/14/23 07:33 ABG Base Excess 23.3 mEq/L (-9-1.8) H 06/14/23 07:33 Morales Test Pos (Pos) 06/14/23 07:33 VBG pH 7.40 (7.36-7.41) 06/12/23 05:39 VBG pCO2 77 mmHg (38-50) H 06/12/23 05:39 VBG pO2 61 mmHg 06/12/23 05:39 VBG HCO3 48 mmol/L 06/12/23 05:39 VBG O2 Saturation 88.0 % 06/12/23 05:39 VBG Base Excess 18.5 mEq/L 06/12/23 05:39 Oxygen Given 4 L 06/14/23 07:33 Sodium 134 mmol/L (136-145) L 06/16/23 05:45 Potassium 4.8 mmol/L (3.5-5.1) 06/16/23 05:45 Chloride 90 mmol/L (98-107) L 06/16/23 05:45 Carbon Dioxide 39 mmol/L (21-32) H 06/16/23 05:45 Anion Gap 5 (3-11) 06/16/23 05:45 BUN 28 mg/dl (6-23) H 06/16/23 05:45 Creatinine 0.71 mg/dl (0.6-1.4) 06/16/23 05:45 Est Cr Clr Drug Dosing 125.7 ml/min 06/16/23 05:45 Est GFR ( Amer) 113.3 ml/min 06/16/23 05:45 Est GFR (Non-Af Amer) 97.8 ml/min 06/16/23 05:45 BUN/Creatinine Ratio 39.4 (10-20) H 06/16/23 05:45 Glucose 93 mg/dl (70-99(Fasting)) 06/16/23 05:45 POC Glucose 101 mg/dl (70-99) H 06/16/23 11:49 Estimat Average Glucose 120 mg/dl 06/11/23 05:29 Hemoglobin A1c 5.8 % (4.5-5.6) H 06/11/23 05:29 Calcium 9.6 mg/dl (8.6-10.3) 06/16/23 05:45 Magnesium 2.0 mg/dl (1.7-2.4) 06/16/23 05:45 Iron 17 mcg/dl (35-175) L 06/10/23 11:30 Unsaturated IBC 321 mcg/dl (155-355) 06/10/23 11:30 Transferrin 258 mg/dl (200-360) 06/10/23 11:30 Ferritin 53.8 ng/ml (8-388) 06/10/23 11:30 Total Bilirubin 0.4 mg/dl (0.2-1.0) 06/10/23 11:30 AST 17 U/L (13-39) 06/10/23 11:30 ALT 11 U/L (7-52) 06/10/23 11:30 Alkaline Phosphatase 93 U/L (34-104) 06/10/23 11:30 Troponin I High Sens 19.1 pg/ml (0-20) 06/10/23 11:30 B-Natriuretic Peptide 831 pg/ml (0-100) H 06/10/23 11:30 Total Protein 6.9 gm/dl (6.0-8.3) 06/10/23 11:30 Albumin 3.7 gm/dl (3.4-5.0) 06/10/23 11:30 Globulin 3.2 gm/dl (2.5-4.0) 06/10/23 11:30 Albumin/Globulin Ratio 1.2 (0.9-2) 06/10/23 11:30 Vitamin B12 405 pg/ml (180-914) 06/10/23 11:30 Folate 18.69 ng/ml (>5.38) 06/10/23 11:30 Procalcitonin 0.13 ng/ml (0-0.5) 06/10/23 11:30 Urine Color Yellow 06/10/23 Unknown Urine Appearance Clear (Clear) 06/10/23 Unknown Urine pH 5.0 (4.5-7.5) 06/10/23 Unknown Ur Specific [place] 1.013 (1.000-1.030) 06/10/23 Unknown Urine Protein Negative (Negative) 06/10/23 Unknown Urine Glucose (UA) 3+ (Negative) H 06/10/23 Unknown Urine Ketones Negative (Negative) 06/10/23 Unknown Urine Blood Negative (Negative) 06/10/23 Unknown Urine Nitrite Negative (Negative) 06/10/23 Unknown Urine Bilirubin Negative (Negative) 06/10/23 Unknown Urine Urobilinogen Negative (Negative) 06/10/23 Unknown Ur Leukocyte Esterase Negative (Negative) 06/10/23 Unknown Adenovirus (PCR) Not Detected (NotDetected) 06/10/23 Unknown B. pertussis DNA (PCR) Not Detected (NotDetected) 06/10/23 Unknown B.parapertussis DNA PCR Not Detected (NotDetected) 06/10/23 Unknown Lyme Disease IgG Ab Negative (Negative) 06/10/23 11:30 Lyme Disease IgM Ab Negative (Negative) 06/10/23 11:30 C. pneumoniae DNA (PCR) Not Detected (NotDetected) 06/10/23 Unknown Coronavirus OC43 (PCR) Not Detected (NotDetected) 06/10/23 Unknown Coronavirus HKU1 (PCR) Not Detected (NotDetected) 06/10/23 Unknown Coronavirus 229E (PCR) Not Detected (NotDetected) 06/10/23 Unknown SARS-CoV-2 (PCR) Not Detected (NotDetected) 06/10/23 Unknown Coronavirus NL63 (PCR) Not Detected (NotDetected) 06/10/23 Unknown Hepatitis C Ab (EIA) NON-REACTIVE (NON-REACTIVE) 06/11/23 05:29 Human Metapneumovir PCR Not Detected (NotDetected) 06/10/23 Unknown Influenza Type A (PCR) Not Detected (NotDetected) 06/10/23 Unknown Influenza Type B (PCR) Not Detected (NotDetected) 06/10/23 Unknown M. pneumoniae (PCR) Not Detected (NotDetected) 06/10/23 Unknown Parainfluenza 1 (PCR) Not Detected (NotDetected) 06/10/23 Unknown Parainfluenza 2 (PCR) Not Detected (NotDetected) 06/10/23 Unknown Parainfluenza 3 (PCR) Not Detected (NotDetected) 06/10/23 Unknown Parainfluenza 4 (PCR) Not Detected (NotDetected) 06/10/23 Unknown RSV (PCR) Not Detected (NotDetected) 06/10/23 Unknown Entero/Rhino (PCR) DETECTED (NotDetected) A* 06/10/23 Unknown Impressions Chest X-Ray 06/14/23 09:00 XR chest 1V portable HISTORY: 67 years-old Male Follow up on pulmonary edema acute shortness of breath COMPARISON: 06/10/2023 TECHNIQUE: AP view of the chest FINDINGS: Cardiac silhouette is enlarged. No pneumothorax. Pulmonary vascular congestion with interstitial coarsening again noted, mildly improved. Small right greater than left pleural effusions with persistent bibasilar opacities. IMPRESSION: 1. Cardiomegaly with mildly improved pulmonary edema. 2. Small right greater than left pleural effusions with mild bibasilar opacities are again noted. ACT 112: Negative or not required by law. The above report was generated using voice recognition software. It may contain grammatical, syntax or spelling errors. Electronically signed by: Josiah Sanchez M.D. 06/14/2023 7:07 AM
[2023-06-16] MEDS: WARFARIN SOD 10 MG TAB PO SCH (17:04)
[2023-06-17] MEDS: ALBUT/IPRATROP 3MG/0.5MG NEB 3 ML VIAL NEB SCH ×3 (02:32→11:40)
[2023-06-17] MEDS: FUROSEMIDE 40 MG/4 ML VIAL IV SCH (06:19)
[2023-06-17 07:10] LABS: INR 1.5 (0.9-1.1); Prothrombin Time 16.1 Seconds (9.0-12.0)
[2023-06-17 07:14] LABS: BUN Creatinine Ratio 36.6 (10-20); Calcium 9.4 mg/dl (8.6-10.3); Creatinine Clr Calc Pharmacy 96.3 ml/min; Est GFR (African American) 98.8 ml/min; Est GFR (Non-African American) 85.2 ml/min; Magnesium 1.9 mg/dl (1.7-2.4); Potassium 4.3 mmol/L (3.5-5.1)
[2023-06-17] MEDS: carvediloL 3.125 MG TAB PO SCH (08:41)
[2023-06-17] MEDS: UMECLIDINIUM/VILANTEROL 62.5/25MCG 7 PUFFS/INHALER INH SCH (08:41)
[2023-06-17] MEDS: ATORVASTATIN 40 MG TAB PO SCH (08:41)
[2023-06-17] MEDS: POTASSIUM CHLORIDE CRTAB 20 MEQ TABCR PO SCH (08:42)
[2023-06-17] MEDS: guaiFENesin 600 MG TABCR PO SCH (08:42)
[2023-06-17] MEDS: PANTOprazole 40 MG TAB PO SCH (08:42)
[2023-06-17] MEDS: FLUTICASONE FUROATE 100MCG 14 PUFFS/INHALER INH SCH (08:42)
[2023-06-17] MEDS: SPIRONOLACTONE 25 MG TAB PO SCH (08:43)
[2023-06-17] MEDS: INSULIN ASPART PER UNIT CHARGE SC SCH ×2 (09:12→12:43)
--- NOTE | 2023-06-17 12:27 | Cardiology Progress Note ---
Date of Service June 17, 2023 Assessment & Plan (1) Acute on chronic congestive heart failure: (2) Chronic respiratory failure with hypoxia: (3) Chronic a-fib: (4) Obesity hypoventilation syndrome: Plan Transition IV furosemide to torsemide 40 mg daily. Restart enalapril at d ischarge. Continue Aldactone, carvedilol, and oral anticoagulation with Coumadin for goal INR of 2.0-3.0. INR subtherapeutic today. Give additional 10mg warfarin today. Close outpatient follow-up with the anticoagulation clinic. Supplement oxygen as needed. Outpatient basic metabolic panel in heart failure clinic follow-up in 1 week. Thank you for allow me to participate in the care of your patient. Cardiology will sign off. Please call with additional concerns/questions. Admission and Anticipated Discharge Date Admission Date: June 10, 2023 Subjective Patient seen and examined at the bedside. Feeling better today. Cough is nearly resolved. Edema unchanged. Fluid balance negative additional 4.4 L. Renal function remained stable. Review of Systems Review of Systems: All systems reviewed & are unremarkable except as noted in Subjective Physical Exam Physical Exam: PE: VSS. Gen: NAD, AAO x3. Heart: Irregular rhythm, normal S1-S2. No murmur appreciated. Lungs: Diminished breath sounds bilaterally. No rales, rhonchi, wheeze. Extremities: 1+ bilateral pedal and pretibial edema. Results & Data Vital Signs (Past 12 Hours) Vital Signs Temp Pulse Pulse Pulse Pulse Pulse Pulse 06/17/23 11:40 80 06/17/23 11:20 88 90 80 06/17/23 11:34 06/17/23 08:39 36.8 C 85 06/17/23 07:39 83 06/17/23 07:20 78 06/17/23 03:44 36.5 C 71 06/17/23 02:33 80 06/17/23 02:32 80 Resp Resp Resp Resp BP Pulse Ox Pulse Ox 06/17/23 11:40 18 98 06/17/23 11:20 24 26 H 20 93 06/17/23 11:34 06/17/23 08:39 20 115/70 96 06/17/23 07:39 06/17/23 07:20 18 97 06/17/23 03:44 18 114/76 97 06/17/23 02:33 24 98 06/17/23 02:32 24 98 Pulse Ox Pulse Ox O2 Del Method O2 Flow Rate O2 Flow Rate FiO2 06/17/23 11:40 Nasal Cannula 3 06/17/23 11:20 85 L 91 3 06/17/23 11:34 Nasal Cannula, BiPAP 3 06/17/23 08:39 Nasal Cannula 3 06/17/23 07:39 06/17/23 07:20 Nasal Cannula 3 06/17/23 03:44 BiPAP 06/17/23 02:33 30 06/17/23 02:32 BiPAP 30 Laboratory Results Coagulation 06/17/23 Range/Units 06:00 PT 16.1 H (9.0-12.0) Seconds Comprehensive Metabolic Panel 06/17/23 Range/Units 06:00 Sodium 135 L (136-145) mmol/L Potassium 4.3 (3.5-5.1) mmol/L Chloride 92 L (98-107) mmol/L Carbon Dioxide 38 H (21-32) mmol/L BUN 34 H (6-23) mg/dl Creatinine 0.93 (0.6-1.4) mg/dl Glucose 102 H (70-99(Fasting)) mg/dl Calcium 9.4 (8.6-10.3) mg/dl Intake and Output 06/16/23 06/17/23 06/17/23 22:59 06:59 14:59 Output Total 625 / 4450 1000 / 4450 1400 / 1400 Balance -625 / -4450 -1000 / -4450 -1400 / -1400 Output: Urine Amount (Catheter) 625 / 4450 1000 / 4450 1400 / 1400 Barron/Indwelling 625 / 4450 1000 / 4450 1400 / 1400 Other: Weight 118.7 kg Weight Measurement Method Built in [facility]
--- NOTE | 2023-06-17 16:14 | Discharge Summary ---
Date of Service June 17, 2023 Admission HPI Per Admitting Provider This is a 67-year-old male with PMHx of morbid obesity with a BMI of 47.4, O2 dependent at 3 L at baseline, CPAP at bedtime, DM type II, COPD, chronic hypoxic respiratory failure, A-fib, anticoagulated on Coumadin, history of DVT, squamous cell carcinoma of the face, venous insufficiency, who recently established with [facility] PCP within the past few weeks after moving here from [place]. Patient presents to the hospital with worsening progressive shortness of breath x 3 days. Pt is on bipap and somnolent on my visit, history is obtained from daughter at bedside. Worsening shortness of breath x3 days, increasing somnolence, and this morning was difficult to awaken. Prior to this he had only been able to ambulate a 25 steps prior to becoming so dyspneic needing to rest. He had been using his oxygen 3 L plus his portable O2 at 2 L at the same time - total of 5 L the last 2 days and at baseline wears 2.5 L and CPAP HS. Patient has been taking his medications as instructed as his daughter regulates these. He has been following with wound care for significantly edematous legs and has been wrapped on a daily basis. She reports that there is no wound or ulceration on his lower legs. Approximately 4 weeks ago patient was hospitalized for a 3 to 4-week. At [facility] [place] [place] [facility], in the ICU for CHF, COPD and supratherapeutic INR and required transfusion x9 for a presumed GI bleed which was unable to be scoped due to his unstable condition. He was living in unfit conditions and therefore was discharged under the pretense that he would live with his daughter. Patient is found to have normal troponin, elevated BNP of 830, is requiring BiPAP, positive for rhinovirus/enterovirus, and on chest x-ray shows cardiomegaly with pulmonary edema, layering pleural effusions with bibasilar consolidations right greater than left. His hemoglobin is decreased to 8.8, but there is no baseline for me to compare this to. Family reports that he was being worked up as an outpatient for anemia without knowledge of results. Admission Exam Per Admitting Provider General:somnolent, awakens to verbal stimuli and shaking his arm, but cannot participate in conversation, no apparent distress, + obese with BMI 47.4 Head: Normocephalic, atraumatic ENT: PERRL, EOMI, no pharyngeal exudate, mucous membranes moist Chest: + Coarse breath sounds, on bipap at 18 / 2, + expiratory wheeze Cardiac: Sinus bradycardia with HR fluctuating between mid 30s - 50s at bedside, faint systolic murmur, 1+ JVD, normal peripheral pulses, good capillary refill, + edematous legs bilaterally wrapped with ANGEL. Abdominal: NABS x 4 quadrants, soft, nondistended, nontender to palpation, no rebound or guarding Extremities: Normal inspection, + peripheral edema , wrapped, cannot assess erythema, calfs nontender to palpation Psych: unable to determine due to somnolence Neuro: awakens to verbal stimuli, confused Principal Diagnosis (1) Acute respiratory failure with hypoxia and hypercarbia: (2) Obesity hypoventilation syndrome: (3) Acute on chronic congestive heart failure: Discharge Exam Physical Exam: Vitals signs as noted above General Appearance:Morbidly Obese, no apparent distress Head: normocephalic, Atraumatic Eyes: normal inspection, EOMI Neck: supple, Trachea midline Respiratory/Chest: Decreased breath sounds, CTA, No accessory muscle use Cardiovascular: Irregularly irregular, No murmur Abdomen/GI:Soft, Non tender, Bowel sounds present Extremities/Musculoskeletal:normal inspection, 1+ pedal edema Neurologic/Psych:AAOX3, grossly no focal neurological deficits Skin: normal color, warm Discharge Data Allergies Allergy/AdvReac Type Severity Reaction Status Date / Time No Known Allergies Allergy Unverified 06/10/23 16:21 Consultations 06/10/23 13:13 ED Decision to Admit Stat 06/10/23 13:56 HIM [Consult Health Information Management] Stat 06/10/23 13:59 Consult Pulmonology Routine 06/10/23 14:01 Consult Cardiology Routine Hospital Course (1) Acute respiratory failure with hypoxia and hypercarbia: (2) Obesity hypoventilation syndrome: (3) Acute on chronic congestive heart failure: Plan This is a 67-year-old male with PMHx of morbid obesity with a BMI of 47.4, O2 dependent at 3 L at baseline, CPAP at bedtime, DM type II, COPD, chronic hypoxic respiratory failure, A-fib, anticoagulated on Coumadin, history of DVT, squamous cell carcinoma of the face, venous insufficiency, who recently established with [facility] PCP within the past few weeks after moving here from [place]. Patient presents to the hospital with worsening progressive shortness of breath x 3 days. Chest x-ray on admission showed cardiomegaly with pulmonary edema with layering pleural effusion. Echocardiogram was consistent with volume overload with EF of 50 to 55% Cardiology and pulmonology consultation was done. Patient was started on IV diuretic. Admitting weight was 137 Kgs; discharge weight was 118.7 kg's. His oxygen requirement down trended to room air at rest and 3 L after ambulation. As per pulmonology, BiPAP was arranged for him at home for obesity hypoventilation syndrome. Patient to follow-up with primary care doctor, cardiology as outpatient. Patient will need BMP with follow-up with primary care doctor to monitor his kidney function. Discharge instruction were also given to his son at bedside. Total Time Total Time Spent Total Time Spent (In Minutes): 45 Total Time Includes: Examination of the Patient, Discharge Planning, Medication Reconciliation, Communication With Other Providers and Other Discharge Plan Discharge Items Patient Disposition: Home - Self-Care Reason For Visit: ACUTE ON CHRONIC CHF Discharge Diagnosis: (1) Acute respiratory failure with hypoxia and hypercarbia: (2) Obesity hypoventilation syndrome: (3) Acute on chronic congestive heart failure: Activity: Resume your previous activity Non-emergency contact: Primary Care Provider Call non-emergency contact if: you have any medication questions and your symptoms worsen Follow-up/Referrals: Bettina Brizuela PA-C [Physician Help Desk Administrator] - (Date & Time 07/17/2023 11:30 AM Provider Bettina Brizuela PA-C Department Cardiology, [facility] ) Charley Crane MD [Primary Care Provider] - (Date & Time 06/21/2023 11:40 AM Provider Charley Crane MD Department [facility] ) Diet: Regular Addtl Attending Provider Instructions: You were admitted to the hospital due to shortness of breath. The likely cause for it is heart failure and obesity hypoventilation syndrome. Cardiology and pulmonology doctor saw you in the hospital. They recommend following medication adjustment: 1) take Coreg 3.125 mg twice daily. He stopped taking 25 mg tablets. 2) start taking spironolactone 25 mg once a day 3) stop taking Lasix. Be restarted on torsemide 40 mg once a day. Appointment with your primary care doctor and primary care doctor has been set up. Pending Studies at Discharge: No Stand-Alone Forms: My [facility], Smoking Cessation Medications and DC Order Prescriptions: New spironolactone 25 mg Tablet 25 mg PO QAM Qty: 30 0RF carvedilol 3.125 mg Tablet 3.125 mg PO BIDM Qty: 60 0RF torsemide 40 mg tablet 40 mg PO DAILY Qty: 30 0RF Continued atorvastatin 40 mg Tablet 40 mg PO DAILY enalapril maleate 10 mg Tablet 10 mg PO DAILY albuterol sulfate 2.5 mg /3 mL (0.083 %) Solution For Nebulization 2.5 mg INHALATION Q6H PRN (Reason: Shortness Of Breath) warfarin 10 mg Tablet 10 mg PO DAILY potassium chloride 10 mEq Tablet Extended Release 10 meq PO QAM glimepiride 1 mg Tablet 1 mg PO QAM Rx Instructions: administer with breakfast isosorbide mononitrate 60 mg Tablet Extended Release 24 Hr 60 mg PO QAM pantoprazole 40 mg Tablet,Delayed Release (Dr/Ec) 40 mg PO DAILY Centrum Silver Men [id number] mcg Tablet 1 tab PO DAILY empagliflozin 10 mg Tablet 10 mg PO QAM Trelegy Ellipta 100-62.5-25 mcg Blister With Device 1 inh INHALATION DAILY Discontinued furosemide 40 mg Tablet 40 mg PO QAM carvedilol 25 mg Tablet 25 mg PO BID Rx Instructions: must administer with a meal/food Discharge Orders: Discharge Order (Routine); Ordered 06/17/23 Ordered By: Ricardo Viera Admission Data Admit Date/Time: 06/10/23 13:25 Attending Provider: Ricardo Viera Admit Provider: Yusef Gr Primary Care Provider: Charley Crane Other Providers: Yusef Gr ; Nir Ramos ; Tiago Torres ; Henry Parker ; [facility] ; [facility] Other Interventions: Discharge Summary Assessment (RN) Last Done: 06/17/23 12:59
--- NOTE | 2023-06-21 07:26 | Coding Query ---
CODING QUERY To promote full compliance with coding requirements relating to patient care, provider participation is requested in all cases of box machine operator uncertainty. Please assist us with the question(s) below: Coding Question(s): Pt admitted with acute respiratory failure, CHF . BIPAP initiated in ED. H/P: layered pleural effusions with bilateral consolidations. Started antibiotics for suspected pneumonia. . 06/11 Pulmonary progress note stated possible pneumonia . Please check below the phrase that describes the Pneumonia. Thanks for your help. Gualberto Rosario [facility] Physician's Response(s): ____X Pneumonia was treated during this inpatient stay, Present on admission Pneumonia was not treated during this inpatient stay. Other: Please document: Principal Diagnosis: "that condition established after study, to be chiefly responsible for occasioning the admission of the patient to the hospital for care." Co-Existing Principal Diagnosis: "when two or more diagnoses equally meet the criteria for principal diagnosis as determined by the circumstances of admission, diagnostic work up, and/or therapy provided, and the Alphabetic Index, Tabular List, or another coding guideline does not provide sequencing direction, any one of the diagnoses may be sequenced first." "When the physician has documented what appears to be a current diagnosis in the body of the record, but has not included the diagnosis in the final diagnostic statement, the physician should be asked whether the diagnosis should be added." (Source [facility]oding [facility] 2 QTR90. p3-4) SWAPNA
== END 2023-06-17 15:08 | disposition home health service (06) | DRG 205 ==
LOC: ED 11:08 → EDINP 13:25 → SUATTDRO 13:25 → 4W 13:43

== ENCOUNTER 2024-05-12 20:40 | Inpatient (IN) ==
[2024-05-12] MEDS: ALBUT/IPRATROP 3MG/0.5MG NEB 3 ML VIAL ONE (21:38)
[2024-05-12 21:59] LABS: INR 2.6 (0.9-1.1); Prothrombin Time 25.8 Seconds (9.0-12.0)
[2024-05-12 22:07] LABS: Basophils # (auto) 0.06 K/uL (0.00-0.20); Basophils % (auto) 0.8 %; Eosinophils # (auto) 0.26 K/uL (0.00-0.50); Eosinophils % (auto) 3.5 %; Hematocrit (blood only) 33.8 % (42.0-52.0); Hemoglobin 10.4 g/dl (14.0-18.0); Immature Granulocytes # (auto) 0.04 K/uL (0.01-0.20); Immature Granulocytes % (auto) 0.5 %; Lymphocytes # (auto) 0.64 K/uL (1.20-3.40); Lymphocytes % (auto) 8.6 %; Mean Corpuscular Hemoglobin 28.6 pg (25.0-34.0); Mean Corpuscular Hgb Conc 30.8 g/dL (32.0-36.0); Mean Corpuscular Volume 92.9 fL (80.0-100.0); Mean Platelet Volume 9.4 fL (9.4-12.4); Monocytes # (auto) 0.86 K/uL (0.11-0.59); Monocytes % (auto) 11.6 %; Neutrophils # (auto) 5.57 K/uL (1.40-6.50); Platelet Count 309 K/uL (130-400); RDW Coefficient of Variation 15.9 % (11.5-14.5); RDW Standard Deviation 54.4 fL (36.4-46.3); Red Blood Count 3.64 M/uL (4.70-6.10); White Blood Count 7.43 K/ul (4.8-10.8)
[2024-05-12 22:11] LABS: Albumin Globulin Ratio 0.9 (0.9-2); Albumin Level 3.6 gm/dl (3.4-5.0); Bilirubin,Total 0.3 mg/dl (0.2-1.0); Calcium 9.3 mg/dl (8.6-10.3); Creatinine Clr Calc Pharmacy 99.6 ml/min; Est GFR (African American) 89.9 ml/min; Est GFR (Non-African American) 77.5 ml/min; Globulin 3.9 gm/dl (2.5-4.0); Potassium 5.1 mmol/L (3.5-5.1); Total Protein 7.5 gm/dl (6.0-8.3)
[2024-05-12 22:17] LABS: Troponin I High Sensitivity 30.8 pg/ml (0-20)
[2024-05-12] MEDS: TORSEMIDE 20 MG TAB PO STA (22:23)
[2024-05-12 22:34] LABS: Base Excess VBG 9.2 mEq/L; HCO3 VBG 39 mmol/L; Oxygen Saturation VBG 77.5 %; PCO2 VBG 79 mmHg (38-50); PO2 VBG 44 mmHg
--- NOTE | 2024-05-12 23:24 | Emergency Department Note ---
Impression & Plan Acute respiratory failure with hypoxia and hypercarbia, COPD (chronic obstructive pulmonary disease), O2 dependent, Congestive heart failure ED Provider Note ED Provider Note NAME: MEÑO HEREDIA AGE:68 SEX: Male : 1955 ARRIVES VIA: EMS INFORMANT: Patient, family, EMS ED PROVIDER(s): Rosalind Le DO CHIEF COMPLAINT: Shortness of breath, hypoxia HPI: This is a 68-year-old male brought from home by EMS due to concern for increased shortness of breath and hypoxia. EMS reported patient's sats were in the 60s. They had increased his usual oxygen via nasal cannula and then transitioned him to a nonrebreather with improvement in his oxygen. Patient states he had to turn up his oxygen earlier today and did feel slightly more short of breath. He states this evening it got worse despite turning up his oxygen and his family called 911. Patient states he has recently been on antibiotics for lower extremity cellulitis. He states he has missed a dose or 2 of his torsemide that he takes due to his history of congestive heart failure. Upon discussion with family, they state patient has had increased difficulty breathing that is slowly evolved over the last 2 weeks. They state this morning he had accidentally knocked off his home oxygen in his sleep. His sats were found to be in his 60s on their home pulse oximeter and they put his oxygen back on and it came up. They asked him if he wanted to come to the emergency department and he denied. He states throughout the day he seemed more short of breath and they could hear a "rattle" in his chest. They state this evening he looked worse, son turned up his oxygen concentrator to 5-6. Patient normally only wears 2 to 3 L/min. They state he then began to seem confused so they called 911 for him to come to the emergency room. Son states he is the power of district attorney however patient does all his own decision making unless he is confused. They state patient's evolving symptoms and presentation are similar to a year ago when he was hospitalized for 3 weeks. PAST MEDICAL HISTORY:See Below PAST SURGICAL HISTORY:See Below FAMILY HISTORY:See Below SOCIAL HISTORY:See Below HOME MEDICATIONS:See Below ALLERGIES:See Below VITALS:See Below PHYSICAL EXAMINATION: GENERAL: alert, well appearing, well nourished, no distress, non-toxic EYE EXAM: normal conjunctiva, PERRL and EOM's grossly intact OROPHARYNX: no exudate, no erythema, lips, buccal mucosa, and tongue normal and mucous membranes are moist NECK: supple, no nuchal rigidity, no adenopathy, non-tender LUNGS: Decreased bilaterally to auscultation. Normal chest wall mechanics, no w/r, bibasilar Rales, increased work of breathing, conversational dyspnea HEART: no murmurs, S1 normal and S2 normal ABDOMEN: abdomen soft, non-tender, normo-active bowel sounds, no masses, no rebound or guarding. BACK: Back is symmetrical on inspection SKIN: no rashes, petechiae, orbruising UPPER EXTREMITIES: upper extremities are grossly normal. FROM, nml pulses b/l. LOWER EXTREMITIES: 3+ b/l pitting edema right greater than left, right lower extremity with erythema and increased warmth. FROM, nml pulses b/l. NEURO EXAM: Normal sensorium, cranial nerves II-XII grossly intact, normal speech, no facial droop,nogross weakness of arms, no gross weakness of legs. Gross sensation intact. No ataxia. Vital Signs: reviewed and remarkable Differential Diagnosis: pneumonia, bronchitis, COPD/Asthma exacerbation, pneumothorax, pulmonary embolism, congestive heart failure, acute coronary syndrome, as well as others were considered MEDICAL DECISION MAKING: This is a 68 yo male with a hx of CHF and COPD on home oxygen who presents due to concern for increasing dyspnea and hypoxia despite his home oxygen. He was maintaining sats on NRB placed by EMS and couldn't be transitioned back to AL. He was awake, alert, and oriented. Exam suggestive of CHF and patient admitted to missing doses of his diuretic recently. He has been on antibiotics and prednisone already per his COPD rescue pack and for tx of recent cellulitis. Patient started on bipap here. He reported feeling improved. He was given a duoneb and a dose of his torsemide. After review of vbg, mask changed and RT changed settings with plan to repeat vbg in 1 hour. BNP elevated and cxr suggestive of CHF. Troponin likely elevated secondary to demand from CHF. No fever or leukocytosis. I suspect symptoms more likely from acute CHF on top of his chronic COPD. I do not suspect ACS or PNA. Case discussed with the hospitalist for additional evaluation and mgmt. Consultation(s): 2345: [facility] ER Treatment Provided: See below Diagnostics Interpreted By Me: -ECG: A-fib at a rate of 72, normal axis, normal intervals, nonspecific ST/T wave changes -Cardiac Monitoring: An order was placed for continuous cardiac monitoring. The monitor shows a rate of 78 with a.fib rhythm. -Laboratory studies: As stated above and show below. -Imaging studies: cxr: cardiomegaly noted, pulmonary edema noted, no wide mediastinum Triage Nursing Note Reviewed Prior/Outside Records Reviewed Critical Care: Critical care of 56 min performed to assess and manage high likelihood of life- threatening acute hypoxic respiratory failure, involving labs and imaging performed with assessment to evaluate dyspnea diagnosis with frequent reassessment. This time includes bedside time, treatment discussions with patient/family/consultants, documentation time and excludes procedure time. Past Med/Surg History Problem List (Updated 05/13/24 @ 15:03 by Sandeep Garcia DO) Acute on chronic heart failure with preserved ejection fraction Congestive heart failure (Acute) Acute respiratory failure with hypoxia and hypercarbia (Acute) Acute on chronic congestive heart failure O2 dependent (Acute) Anticoagulant long-term use Chronic a-fib DM II (diabetes mellitus, type II), controlled Chronic respiratory failure with hypoxia COPD (chronic obstructive pulmonary disease) (Acute) Medical History (Updated 05/13/24 @ 15:03 by Sandeep Garcia DO) Obesity hypoventilation syndrome Hx of smoking Chronic congestive heart failure Hx of deep venous thrombosis Surgical History (Updated 06/10/23 @ 14:15 by Pham Lindo PA-C) No pertinent past surgical history Family History (Updated 06/10/23 @ 14:17 by Pham Lindo PA-C) Other Diabetes Social History (Updated 06/10/23 @ 13:20 by Pham Lindo PA-C) Smoking Status: Former smoker Tobacco Type: Cigarettes Second Hand Exposure: Yes; Do You Dip or Chew Tobacco: No; Tobacco Cessation Education Requested by Patient: No Hx Alcohol Use: Yes Alcohol type: beer Hx Substance Use: No Preferred Language: Nicaraguan Communication Ability: Effective Stonecutter Assistant Required: No Beliefs That Will Affect Care: None Current Living Situation: Family Other Information That Helps Us Care for You: No Feels Safe at Home: Yes Safety Concerns: Feels Safe At This Time Assistive Devices: BiPap, Oxygen - Continuous and Walker Allergies Allergies Allergy/AdvReac Type Severity Reaction Status Date / Time No Known Allergies Allergy Verified 05/12/24 23:12 Home Meds Home Medications Medication Instructions Recorded Confirmed empagliflozin 10 mg tablet 10 mg PO QAM 06/10/23 05/12/24 enalapril maleate 10 mg tablet 10 mg PO DAILY 06/10/23 05/12/24 fluticasone fur. 100 mcg-umeclid 1 inh inhalation DAILY 06/10/23 05/12/24 62.5 mcg-vilant 25 mcg inhalat.powder (Trelegy Ellipta) isosorbide mononitrate 60 mg 60 mg PO QAM 06/10/23 05/12/24 tablet,extended release 24 hr [id number] 300 mcg-K 60 1 tab PO DAILY 06/10/23 05/12/24 mcg-lycop 600 mcg-lutein 300 mcg tablet (Centrum Silver Men) pantoprazole 40 mg tablet,delayed 40 mg PO DAILY 06/10/23 05/12/24 release potassium chloride 10 mEq 10 meq PO Q OTHER DAY 06/10/23 05/12/24 tablet,extended release warfarin 10 mg tablet See Rx Instructions .Route .COMPLEX 06/10/23 05/12/24 albuterol sulfate 90 mcg/actuation 2 puff inhalation Q6H PRN 05/12/24 05/12/24 aerosol inhaler Shortness Of Breath Or Wheezing atorvastatin 80 mg tablet 80 mg PO QAM 05/12/24 05/12/24 cephalexin 500 mg capsule 500 mg PO BID 05/12/24 05/12/24 doxycycline hyclate 100 mg capsule 100 mg PO BID 05/12/24 05/12/24 doxycycline hyclate 100 mg capsule 100 mg PO BID PRN COPD RESCUE KIT 05/12/24 05/12/24 fluticasone propionate 50 2 spray intranasal DAILY 05/12/24 05/12/24 mcg/actuation nasal spray,suspension guaifenesin 600 mg tablet, 600 mg PO BID 05/12/24 05/12/24 extended release 12 hr (Mucinex) ipratropium 0.5 mg-albuterol 3 mg 3 ml inhalation Q6H PRN Shortness 05/12/24 05/12/24 (2.5 mg base)/3 mL nebulization Of Breath soln ketoconazole 2 % topical cream 1 applic topical DIRECTED PRN 05/12/24 05/12/24 DRY SKIN PATCHES prednisone 20 mg tablet 40 mg PO DAILY PRN COPD RESCUE KIT 05/12/24 05/12/24 torsemide 20 mg tablet 40 mg PO QAM 05/12/24 05/12/24 Previous Rx's Medication Instructions Recorded carvedilol 3.125 mg tablet 3.125 mg PO BIDM #60 tabs 06/17/23 spironolactone 25 mg tablet 25 mg PO QAM #30 tabs 06/17/23 Results & Data (ED) Vital Signs Vital Signs - 24 hr 05/12/24 20:51 05/12/24 20:51 05/12/24 20:51 Temperature 37.0 C Temperature Source Oral Pulse Rate 73 Pulse Rate [Apical] Pulse Rate from SpO2 Sensor Pulse Rhythm Regular Pulse Rhythm [Apical] Pulse Strength Normal Pulse Strength [Apical] Respiratory Rate 20 Respiratory Effort / Characteristics Spontaneous Labored Non-Labored Spontaneous Respiratory Depth Shallow Normal Respiratory Pattern Regular Blood Pressure 103/53 L Blood Pressure [Right Arm] Blood Pressure Mean 69 Blood Pressure Mean [Right Arm] Blood Pressure Position Sitting Blood Pressure Position [Right Arm] Pulse Oximetry 96 96 Oxygen Delivery Method Non-rebreather Non-rebreather Non-rebreather Oxygen Flow Rate 10 15 15 Fraction of Inspired Oxygen SaO2/FiO2 Ratio Sepsis Recent Fever Within 48 Hours No Sepsis New/Unexplained Change in Mental Status No Sepsis Action Taken by Nursing No Action Required Fraction of Inspired Oxygen - Titration Pulse Oximetry Post Tiitration 05/12/24 20:56 05/12/24 21:41 05/12/24 21:41 Temperature Temperature Source Pulse Rate 67 75 Pulse Rate [Apical] Pulse Rate from SpO2 Sensor Pulse Rhythm Pulse Rhythm [Apical] Pulse Strength Pulse Strength [Apical] Respiratory Rate 22 22 Respiratory Effort / Characteristics Spontaneous Non-Labored Spontaneous Respiratory Depth Normal Respiratory Pattern Regular Blood Pressure Blood Pressure [Right Arm] Blood Pressure Mean Blood Pressure Mean [Right Arm] Blood Pressure Position Blood Pressure Position [Right Arm] Pulse Oximetry 98 97 Oxygen Delivery Method BiPAP Oxygen Flow Rate Fraction of Inspired Oxygen 35 30 SaO2/FiO2 Ratio Sepsis Recent Fever Within 48 Hours Sepsis New/Unexplained Change in Mental Status Sepsis Action Taken by Nursing Fraction of Inspired Oxygen - Titration Pulse Oximetry Post Tiitration 05/12/24 22:19 05/12/24 22:34 05/12/24 23:00 Temperature Temperature Source Pulse Rate 75 Pulse Rate [Apical] 65 Pulse Rate from SpO2 Sensor 75 Pulse Rhythm Pulse Rhythm [Apical] Regular Pulse Strength Pulse Strength [Apical] Normal Respiratory Rate 22 22 Respiratory Effort / Characteristics Spontaneous Labored Respiratory Depth Shallow Respiratory Pattern Regular Blood Pressure 152/88 H Blood Pressure [Right Arm] 147/113 H Blood Pressure Mean 109 Blood Pressure Mean [Right Arm] 124 Blood Pressure Position Blood Pressure Position [Right Arm] Sitting Pulse Oximetry 95 86 L 96 Oxygen Delivery Method BiPAP BiPAP BiPAP Oxygen Flow Rate Fraction of Inspired Oxygen 35 35 40 SaO2/FiO2 Ratio 271 Sepsis Recent Fever Within 48 Hours Sepsis New/Unexplained Change in Mental Status Sepsis Action Taken by Nursing Fraction of Inspired Oxygen - Titration 40 Pulse Oximetry Post Tiitration 96 05/13/24 00:00 05/13/24 00:30 05/13/24 00:56 Temperature Temperature Source Pulse Rate 67 65 75 Pulse Rate [Apical] Pulse Rate from SpO2 Sensor 70 64 Pulse Rhythm Pulse Rhythm [Apical] Pulse Strength Pulse Strength [Apical] Respiratory Rate 22 20 Respiratory Effort / Characteristics Respiratory Depth Respiratory Pattern Blood Pressure 143/90 H 157/99 H Blood Pressure [Right Arm] Blood Pressure Mean 99 118 Blood Pressure Mean [Right Arm] Blood Pressure Position Blood Pressure Position [Right Arm] Pulse Oximetry 96 93 Oxygen Delivery Method BiPAP BiPAP Oxygen Flow Rate Fraction of Inspired Oxygen SaO2/FiO2 Ratio Sepsis Recent Fever Within 48 Hours Sepsis New/Unexplained Change in Mental Status Sepsis Action Taken by Nursing Fraction of Inspired Oxygen - Titration Pulse Oximetry Post Tiitration 05/13/24 00:58 05/13/24 01:30 05/13/24 01:30 Temperature 37.0 C Temperature Source Oral Pulse Rate 75 80 Pulse Rate [Apical] 76 Pulse Rate from SpO2 Sensor 82 Pulse Rhythm Pulse Rhythm [Apical] Regular Pulse Strength Pulse Strength [Apical] Normal Respiratory Rate 24 24 22 Respiratory Effort / Characteristics Spontaneous Non-Labored Spontaneous Respiratory Depth Normal Normal Respiratory Pattern Regular Regular Blood Pressure 152/94 H Blood Pressure [Right Arm] 152/94 H Blood Pressure Mean 119 Blood Pressure Mean [Right Arm] 113 Blood Pressure Position Blood Pressure Position [Right Arm] Sitting Pulse Oximetry 95 94 93 Oxygen Delivery Method BiPAP Ambu-Bag BiPAP Oxygen Flow Rate 18 Fraction of Inspired Oxygen 35 40 35 SaO2/FiO2 Ratio 265 Sepsis Recent Fever Within 48 Hours Sepsis New/Unexplained Change in Mental Status Sepsis Action Taken by Nursing Fraction of Inspired Oxygen - Titration Pulse Oximetry Post Tiitration 05/13/24 01:30 05/13/24 02:00 Temperature Temperature Source Pulse Rate 64 Pulse Rate [Apical] Pulse Rate from SpO2 Sensor 70 Pulse Rhythm Pulse Rhythm [Apical] Pulse Strength Pulse Strength [Apical] Respiratory Rate 23 Respiratory Effort / Characteristics Non-Labored Spontaneous Respiratory Depth Normal Respiratory Pattern Regular Blood Pressure 120/71 Blood Pressure [Right Arm] Blood Pressure Mean 87 Blood Pressure Mean [Right Arm] Blood Pressure Position Blood Pressure Position [Right Arm] Pulse Oximetry 93 Oxygen Delivery Method BiPAP BiPAP Oxygen Flow Rate Fraction of Inspired Oxygen 35 SaO2/FiO2 Ratio Sepsis Recent Fever Within 48 Hours Sepsis New/Unexplained Change in Mental Status Sepsis Action Taken by Nursing Fraction of Inspired Oxygen - Titration Pulse Oximetry Post Tiitration Laboratory Data 05/15/24 11:05 05/15/24 11:05 Lab Results 05/12/24 05/12/24 05/12/24 Range/Units 20:51 22:23 23:56 WBC 7.43 (4.8-10.8) K/ul RBC 3.64 L (4.70-6.10) M/uL Hgb 10.4 L (14.0-18.0) g/dl Hct 33.8 L (42.0-52.0) % MCV 92.9 (80.0-100.0) fL MCH 28.6 (25.0-34.0) pg MCHC 30.8 L (32.0-36.0) g/dL RDW Std Deviation 54.4 H (36.4-46.3) fL RDW Coeff of Dhaval 15.9 H (11.5-14.5) % Plt Count 309 (130-400) K/uL MPV 9.4 (9.4-12.4) fL Immature Gran % (Auto) 0.5 % Neut % (Auto) 75.0 % Lymph % (Auto) 8.6 % Gregory % (Auto) 11.6 % Eos % (Auto) 3.5 % Baso % (Auto) 0.8 % Neut # (Auto) 5.57 (1.40-6.50) K/uL Lymph # (Auto) 0.64 L (1.20-3.40) K/uL Gregory # (Auto) 0.86 H (0.11-0.59) K/uL Eos # (Auto) 0.26 (0.00-0.50) K/uL Baso # (Auto) 0.06 (0.00-0.20) K/uL Immature Gran # (Auto) 0.04 (0.01-0.20) K/uL PT 25.8 H (9.0-12.0) Seconds INR 2.6 H (0.9-1.1) VBG pH 7.30 L 7.30 L (7.36-7.41) VBG pCO2 79 H 82 H (38-50) mmHg VBG pO2 44 38 mmHg VBG HCO3 39 40 mmol/L VBG O2 Saturation 77.5 67.7 % VBG Base Excess 9.2 10.4 mEq/L Sodium 133 L (136-145) mmol/L Potassium 5.1 (3.5-5.1) mmol/L Chloride 93 L (98-107) mmol/L Carbon Dioxide 35 H (21-32) mmol/L Anion Gap 5 (3-11) BUN 39 H (6-23) mg/dl Creatinine 1.00 (0.6-1.4) mg/dl Est Cr Clr Drug Dosing 99.6 ml/min Est GFR ( Amer) 89.9 ml/min Est GFR (Non-Af Amer) 77.5 ml/min BUN/Creatinine Ratio 39.0 H (10-20) Glucose 160 H (70-99(Fasting)) mg/dl Calcium 9.3 (8.6-10.3) mg/dl Magnesium 2.0 (1.7-2.4) mg/dl Total Bilirubin 0.3 (0.2-1.0) mg/dl AST 24 (13-39) U/L ALT 21 (7-52) U/L Alkaline Phosphatase 95 (34-104) U/L Troponin I High Sens 30.8 H 32.5 H (0-20) pg/ml B-Natriuretic Peptide 305 H (0-100) pg/ml Total Protein 7.5 (6.0-8.3) gm/dl Albumin 3.6 (3.4-5.0) gm/dl Globulin 3.9 (2.5-4.0) gm/dl Albumin/Globulin Ratio 0.9 (0.9-2) Lipase 47 (11-82) U/L Administered Medications Acetaminophen (Acetaminophen 325 Mg Tab) 650 mg PO QID PRN PRN Reason: pain/fever Stop: 06/12/24 01:20 Last Admin: 05/14/24 17:28 Dose: 650 mg Documented By: Admin: 05/14/24 09:18 Dose: 650 mg Documented By: Admin: 05/14/24 02:17 Dose: 650 mg Documented By: NAB Albuterol (Albut/Ipratrop 3mg/0.5mg Neb 3 Ml Vial) 3 ml NEB Q6R [facility]; Protocol Stop: 06/12/24 06:59 Last Admin: 05/15/24 19:27 Dose: Not Given Documented By: Admin: 05/15/24 19:27 Dose: Not Given Documented By: Admin: 05/15/24 19:26 Dose: Not Given Documented By: Admin: 05/15/24 00:45 Dose: 3 ml Documented By: Admin: 05/14/24 19:40 Dose: Not Given Documented By: Admin: 05/14/24 13:18 Dose: 3 ml Documented By: Admin: 05/14/24 07:17 Dose: Not Given Documented By: Admin: 05/14/24 00:22 Dose: 3 ml Documented By: Admin: 05/13/24 19:42 Dose: Not Given Documented By: Admin: 05/13/24 13:12 Dose: 3 ml Documented By: Admin: 05/13/24 07:39 Dose: 3 ml Documented By: CRG Atorvastatin Calcium (Atorvastatin 40 Mg Tab) 80 mg PO QAM [facility] Stop: 06/12/24 08:59 Last Admin: 05/15/24 14:47 Dose: Not Given Documented By: Admin: 05/14/24 08:10 Dose: 80 mg Documented By: Admin: 05/13/24 08:38 Dose: 80 mg Documented By: AAL Budesonide (Budesonide 0.5 Mg/2 Ml Vial (Pulmicort)) 0.5 mg NEB BIDR [facility] Stop: 06/12/24 13:44 Last Admin: 05/15/24 19:27 Dose: Not Given Documented By: Admin: 05/15/24 19:23 Dose: 0.5 mg Documented By: Admin: 05/14/24 19:40 Dose: 0.5 mg Documented By: Admin: 05/14/24 07:17 Dose: 0.5 mg Documented By: Admin: 05/13/24 19:34 Dose: 0.5 mg Documented By: Admin: 05/13/24 15:53 Dose: 0.5 mg Documented By: HOLLEY Carvedilol (Carvedilol 3.125 Mg Tab) 3.125 mg PO BIDM [facility] Stop: 06/12/24 07:59 Last Admin: 05/15/24 16:00 Dose: Not Given Documented By: Admin: 05/15/24 14:47 Dose: Not Given Documented By: Admin: 05/14/24 17:22 Dose: 3.125 mg Documented By: Admin: 05/14/24 07:51 Dose: 3.125 mg Documented By: Admin: 05/13/24 17:52 Dose: Not Given Documented By: Admin: 05/13/24 08:36 Dose: 3.125 mg Documented By: RENETTA Fluticasone Furoate (Fluticasone Furoate 100mcg 14 Puffs/Inhaler) 1 puffs INH DAILY [facility] Stop: 06/12/24 08:59 Last Admin: 05/13/24 08:39 Dose: 1 puffs Documented By: RENETTA Fluticasone Propionate (Fluticasone Propionate Na Spr 16 Gm Btl) 2 sprays KRIS DAILY [facility] Stop: 06/12/24 08:59 Last Admin: 05/15/24 14:48 Dose: Not Given Documented By: Admin: 05/14/24 08:09 Dose: 2 sprays Documented By: Admin: 05/13/24 08:40 Dose: 2 sprays Documented By: RENETTA Formoterol Fumarate (Formoterol 20 Mcg/2 Ml Vial) 20 mcg NEB BIDR [facility] Stop: 06/12/24 13:44 Last Admin: 05/15/24 19:26 Dose: Not Given Documented By: Admin: 05/15/24 19:23 Dose: 20 mcg Documented By: Admin: 05/14/24 19:40 Dose: 20 mcg Documented By: Admin: 05/14/24 07:17 Dose: 20 mcg Documented By: Admin: 05/13/24 19:34 Dose: 20 mcg Documented By: Admin: 05/13/24 15:53 Dose: 20 mcg Documented By: HOLLEY Guaifenesin (Guaifenesin 600 Mg Tabcr) 600 mg PO BID [facility] Stop: 06/12/24 08:59 Last Admin: 05/15/24 20:46 Dose: 600 mg Documented By: Admin: 05/15/24 14:48 Dose: Not Given Documented By: Admin: 05/14/24 21:54 Dose: 600 mg Documented By: Admin: 05/14/24 08:11 Dose: 600 mg Documented By: Admin: 05/13/24 20:40 Dose: 600 mg Documented By: Admin: 05/13/24 08:40 Dose: 600 mg Documented By: RENETTA Piperacillin Sod/Tazobactam (Sod 4.5 gm/ Dextrose) 100 mls @ 25 mls/hr IV Q8H [facility]; Protocol Stop: 05/22/24 17:59 Last Infusion: 05/15/24 21:36 Dose: Infused Documented By: Admin: 05/15/24 17:36 Dose: 25 mls/hr Documented By: SHANNON Insulin Aspart (Insulin Aspart Per Unit Charge) 0 units SC ACHS [facility] Stop: 06/12/24 04:09 Last Admin: 05/15/24 20:46 Dose: 2 units Documented By: DONNELL Co-signed By: SIDNEY Admin: 05/15/24 16:53 Dose: 3 units Documented By: SHANNON Co-signed By: NAILA Admin: 05/15/24 14:49 Dose: Not Given Documented By: Admin: 05/15/24 14:47 Dose: Not Given Documented By: Admin: 05/14/24 21:54 Dose: 2 units Documented By: JONA Co-signed By: VINAYAK Admin: 05/14/24 17:19 Dose: 4 units Documented By: YISEL Co-signed By: NAILA Admin: 05/14/24 12:53 Dose: 4 units Documented By: YISEL Co-signed By: NAILA Admin: 05/14/24 08:22 Dose: 5 units Documented By: YISEL Co-signed By: CATHY Admin: 05/13/24 20:40 Dose: 4 units Documented By: JONA Co-signed By: SIDNEY Admin: 05/13/24 17:37 Dose: 4 units Documented By: RENETTA Co-signed By: SHANNON Admin: 05/13/24 12:49 Dose: 2 units Documented By: RENETTA Co-signed By: SHANNON Admin: 05/13/24 04:25 Dose: Not Given Documented By: JONA Insulin Glargine (Lantus Per Unit Charge) 5 units SQ DAILY [facility] Stop: 06/12/24 04:19 Last Admin: 05/15/24 14:48 Dose: Not Given Documented By: Admin: 05/14/24 08:23 Dose: 5 units Documented By: YISEL Co-signed By: CATHY Admin: 05/13/24 04:46 Dose: 5 units Documented By: JONA Co-signed By: AMADA Isosorbide Mononitrate (Isosorbide Gregory Extended Rel 60 Mg Tabcr) 60 mg PO QAM [facility] Stop: 06/12/24 08:59 Last Admin: 05/15/24 14:48 Dose: Not Given Documented By: Admin: 05/14/24 08:10 Dose: 60 mg Documented By: Admin: 05/13/24 08:41 Dose: 60 mg Documented By: RENETTA Pantoprazole Sodium (Pantoprazole 40 Mg Tab) 40 mg PO DAILY [facility] Stop: 06/12/24 08:59 Last Admin: 05/15/24 14:48 Dose: Not Given Documented By: Admin: 05/14/24 08:11 Dose: 40 mg Documented By: Admin: 05/13/24 08:42 Dose: 40 mg Documented By: RENETTA Prednisone (Prednisone 20 Mg Tab) 40 mg PO DAILY [facility] Stop: 05/18/24 08:59 Last Admin: 05/15/24 14:48 Dose: Not Given Documented By: Admin: 05/14/24 08:10 Dose: 40 mg Documented By: YISEL Sodium Chloride (Sodium Chlor 7% 4 Ml Neb) 4 ml NEB BIDR [facility] Stop: 06/12/24 13:44 Last Admin: 05/15/24 19:26 Dose: Not Given Documented By: Admin: 05/15/24 19:23 Dose: 4 ml Documented By: Admin: 05/14/24 19:40 Dose: 4 ml Documented By: Admin: 05/14/24 07:17 Dose: 4 ml Documented By: Admin: 05/13/24 19:34 Dose: 4 ml Documented By: Admin: 05/13/24 15:53 Dose: 4 ml Documented By: HOLLEY Umeclidinium/Vilanterol (Umeclidinium/Vilanterol 62.5/25mcg 7 Puffs/Inhaler) 1 puffs INH DAILY [facility] Stop: 06/12/24 08:59 Last Admin: 05/13/24 08:44 Dose: 1 puffs Documented By: RENETTA Warfarin Sodium (Warfarin Sod 5 Mg Tab) 15 mg PO [id number] [facility] Stop: 06/13/24 16:29 Last Admin: 05/14/24 17:20 Dose: 15 mg Documented By: YISEL Discontinued Medications Albuterol (Albut/Ipratrop 3mg/0.5mg Neb 3 Ml Vial) Confirm Administered Dose 3 ml .ROUTE .STK-MED [facility] Stop: 05/12/24 21:38 Last Admin: 05/12/24 21:38 Dose: 3 ml Documented By: LYNN Azithromycin (Azithromycin 250 Mg Tab) 500 mg PO QAM [facility] Stop: 05/15/24 09:01 Last Admin: 05/15/24 14:48 Dose: Not Given Documented By: Admin: 05/14/24 08:09 Dose: 500 mg Documented By: Admin: 05/13/24 14:04 Dose: 500 mg Documented By: RENETTA Furosemide (Furosemide 40 Mg/4 Ml Vial) 40 mg IV BID@0800,1700 [facility] Stop: 05/14/24 17:01 Last Admin: 05/13/24 08:38 Dose: 40 mg Documented By: RENETTA Furosemide (Furosemide 40 Mg/4 Ml Vial) 40 mg IV TID@0700,1200,1700 [facility] Stop: 05/14/24 07:01 Last Admin: 05/14/24 06:14 Dose: 40 mg Documented By: Admin: 05/13/24 17:38 Dose: 40 mg Documented By: Admin: 05/13/24 12:57 Dose: 40 mg Documented By: RENETTA Furosemide (Furosemide 40 Mg/4 Ml Vial) 40 mg IV BID17 [facility] Stop: 06/13/24 08:59 Last Admin: 05/15/24 14:48 Dose: Not Given Documented By: Admin: 05/14/24 17:22 Dose: 40 mg Documented By: Admin: 05/14/24 08:09 Dose: 40 mg Documented By: YISEL Ampicillin Sodium/Sulbactam Sodium 3,000 mg/ Sodium Chloride 100 mls @ 200 mls/hr IV NOW STA Stop: 05/13/24 01:25 Last Infusion: 05/13/24 01:46 Dose: Infused Documented By: Admin: 05/13/24 01:15 Dose: 200 mls/hr Documented By: CHUY Ceftriaxone Sodium (Rocephin) 2,000 mg in 50 mls @ 100 mls/hr IV Q24H [facility] Stop: 05/20/24 13:59 Last Infusion: 05/14/24 13:48 Dose: Infused Documented By: Admin: 05/14/24 13:18 Dose: 100 mls/hr Documented By: Infusion: 05/13/24 14:45 Dose: Infused Documented By: Admin: 05/13/24 14:04 Dose: 100 mls/hr Documented By: RENETTA Piperacillin Sod/Tazobactam (Sod 4.5 gm/ Dextrose) 100 mls @ 200 mls/hr IV NOW ONE; Protocol Stop: 05/15/24 13:29 Last Admin: 05/15/24 14:48 Dose: Not Given Documented By: SHANNON Methylprednisolone (Methylprednisolone 125 Mg/2 Ml Vial) 40 mg IV NOW STA Stop: 05/13/24 00:53 Last Admin: 05/13/24 01:02 Dose: 40 mg Documented By: CHUY Torsemide (Torsemide 20 Mg Tab) 40 mg PO NOW STA Stop: 05/12/24 21:42 Last Admin: 05/12/24 22:23 Dose: 40 mg Documented By: RAFAL Warfarin Sodium (Warfarin Sod 10 Mg Tab) 10 mg PO [email or web address] [facility] Stop: 06/12/24 15:59 Last Admin: 05/15/24 16:03 Dose: Not Given Documented By: Admin: 05/13/24 17:05 Dose: 10 mg Documented By: RENETTA Discharge Plan Visit Data Chief Complaint: Shortness of Breath/Dyspnea Stated Complaint: SOB X FEW DAYS, CHF, COPD ED Provider: Rosalind Le Discharge Problem: Acute respiratory failure with hypoxia and hypercarbia, COPD (chronic obstructive pulmonary disease), O2 dependent, Congestive heart failure Patient Disposition: Admitted As Inpatient Discharge Instructions Interventions: ED Discharge Assessment Last Done: 05/13/24 02:22
[2024-05-13 00:13] LABS: Base Excess VBG 10.4 mEq/L; HCO3 VBG 40 mmol/L; Oxygen Saturation VBG 67.7 %; PCO2 VBG 82 mmHg (38-50); PO2 VBG 38 mmHg
--- NOTE | 2024-05-13 00:48 | History & Physical Report ---
Date of Service May 13, 2024 Assessment & Plan (1) Acute respiratory failure with hypoxia and hypercarbia: Plan: Acute on chronic chronic respiratory failure secondary to pulmonary hypertension, COPD, OHS on BiPAP Multifactorial: Decompensated heart failure, history of diastolic dysfunction COPD exacerbation secondary to possible aspiration pneumonia, no overt sepsis for now A-fib/history DVT on Coumadin, INR therapeutic Headache symptoms from coughing rule out bleed given Coumadin Rx valvular heart disease (moderate TR/mild MR) hypertension, stable hyperlipidemia, on statin Rx DM2 diet-controlled, well-controlled as of recent hemoglobin A1c of 6.1 last January 2024 chronic anemia, hemoglobin at baseline past tobacco abuse Admit to PCU Tweak BiPAP settings Recheck ABG Diuretic Rx Strict I/Os, daily weights, CHF education, fluid restriction once diet advanced once patient off BiPAP Update TTE, cardiology consult Re: Decompensated heart failure Unasyn followed by Augmentin for possible aspiration pneumonia Aspiration precautions, STEM ROLLER OR 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 status while on BiPAP, ISS BG goal 1 10- 1 40 DVT prophylaxis. Coumadin if no bleeding on CT head Full code Total critical care time was 50 minutes. Text document was generated using [email or web address] voice recognition software. It may contain grammatical or spelling errors. Kindly contact undersigned for clarification of any documentation item in question. History of Present Illness Chief Complaint: Shortness of breath Primary Care Provider: Charley Crane MD History obtained from patient and records. Medical history significant for chronic diastolic heart failure (EF 50-55% TTE 2022), A-fib/history DVT on Coumadin, valvular heart disease (moderate TR/mild MR), hypertension, hyperlipidemia, chronic respiratory failure secondary to pulmonary hypertension, COPD, OHS on BiPAP, DM2 diet-controlled, chronic anemia (baseline hemoglobin 9-10), skin cancer as per records, past tobacco abuse. Last confinement May 2023 for respiratory failure secondary to CHF. 2 weeks history of junky cough symptoms. Possible sick contacts at home. Cough symptoms noted during water/food intake. Denies chest pain. Usual leg swelling. Not sure about fluid retention. Achy headache symptoms from coughing. O2 sats noted to be 60s at home. Patient with transient confusion. Patient brought to ER for evaluation. Torsemide and neb treatment administered at the ER. 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 100 mcg-umeclid 1 inh inhalation DAILY 06/10/23 05/12/24 History 62.5 mcg-vilant 25 mcg inhalat.powder (Trelegy Ellipta) isosorbide mononitrate 60 mg 60 mg PO QAM 06/10/23 05/12/24 History tablet,extended release 24 hr hrrhwuvz-hb-fidco 300 mcg-K 60 1 tab PO DAILY 06/10/23 05/12/24 History mcg-lycop 600 mcg-lutein 300 mcg tablet (Centrum Silver Men) pantoprazole 40 mg tablet,delayed 40 mg PO DAILY 06/10/23 05/12/24 History release potassium chloride 10 mEq 10 meq PO Q OTHER DAY 06/10/23 05/12/24 History tablet,extended release warfarin 10 mg tablet See Rx Instructions .Route .COMPLEX 06/10/23 05/12/24 History carvedilol 3.125 mg tablet 3.125 mg PO BIDM #60 tabs 06/17/23 05/12/24 Rx spironolactone 25 mg tablet 25 mg PO QAM #30 tabs 06/17/23 05/12/24 Rx albuterol sulfate 90 mcg/actuation 2 puff inhalation Q6H PRN 05/12/24 05/12/24 History aerosol inhaler Shortness Of Breath Or Wheezing atorvastatin 80 mg tablet 80 mg PO QAM 05/12/24 05/12/24 History cephalexin 500 mg capsule 500 mg PO BID 05/12/24 05/12/24 History doxycycline hyclate 100 mg capsule 100 mg PO BID 05/12/24 05/12/24 History doxycycline hyclate 100 mg capsule 100 mg PO BID PRN COPD RESCUE KIT 05/12/24 05/12/24 History fluticasone propionate 50 2 spray intranasal DAILY 05/12/24 05/12/24 History mcg/actuation nasal spray,suspension guaifenesin 600 mg tablet, 600 mg PO BID 05/12/24 05/12/24 History extended release 12 hr (Mucinex) ipratropium 0.5 mg-albuterol 3 mg 3 ml inhalation Q6H PRN Shortness 05/12/24 05/12/24 History (2.5 mg base)/3 mL nebulization Of Breath soln ketoconazole 2 % topical cream 1 applic topical DIRECTED PRN 05/12/24 05/12/24 History DRY SKIN PATCHES prednisone 20 mg tablet 40 mg PO DAILY PRN COPD RESCUE KIT 05/12/24 05/12/24 History torsemide 20 mg tablet 40 mg PO QAM 05/12/24 05/12/24 History Past Med/Surg History Problem List (Updated 05/12/24 @ 23:24 by Rosalind Le DO) Congestive heart failure (Acute) Acute respiratory failure with hypoxia and hypercarbia (Acute) Acute on chronic congestive heart failure O2 dependent (Acute) Anticoagulant long-term use Chronic a-fib DM II (diabetes mellitus, type II), controlled Chronic respiratory failure with hypoxia COPD (chronic obstructive pulmonary disease) (Acute) Medical History (Updated 05/12/24 @ 23:24 by Rosalind Le DO) Obesity hypoventilation syndrome Hx of smoking Chronic congestive heart failure Hx of deep venous thrombosis Surgical History (Updated 06/10/23 @ 14:15 by Pham Lindo PA-C) No pertinent past surgical history Family History (Updated 06/10/23 @ 14:17 by Pham Lindo PA-C) Other Diabetes Social History (Updated 06/10/23 @ 13:20 by Pham Lindo PA-C) Smoking Status: Former smoker Tobacco Type: Cigarettes Second Hand Exposure: Yes; Do You Dip or Chew Tobacco: No; Tobacco Cessation Education Requested by Patient: No Hx Alcohol Use: Yes Alcohol type: beer Hx Substance Use: No Preferred Language: Latvian Communication Ability: Effective Industrial 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: No Beliefs That Will Affect Care: None Current Living Situation: Family Other Information That Helps Us Care for You: No Feels Safe at Home: Yes Safety Concerns: Feels Safe At This Time Assistive Devices: Denture - Upper, Glasses, Oxygen - Continuous and Walker Review of Systems Review of Systems: As per HPI, all other systems reviewed and negative Physical Exam Physical Exam: GENERAL: uncomfortable, slightly anxious, morbidly obese, respiratory distress SKIN: Pallor, warm HEENT: Alopecia, pale palpebral conjunctivae, no ptosis, dry buccal mucosa, BiPAP in place NECK : Supple, short neck, no tenderness CHEST : Decreased breath sounds, expiratory wheezes, no tenderness HEART : Irregular, no obvious murmurs ABDOMEN: Some distention, nontender EXTREMITIES : Bilateral LE swelling (chronic RLE induration as per patient) with minimal RLE tenderness, no other conspicuous deformities noted NEUROLOGIC : Coherent, no facial asymmetry, slightly hard of hearing, no other gross focality Results & Data Results & Data Vital Signs (Past 12 Hours) Vital Signs Temp Pulse Pulse Resp BP BP Pulse Ox 05/13/24 00:30 65 20 157/99 H 93 05/13/24 00:00 67 22 143/90 H 96 05/12/24 23:00 75 22 152/88 H 96 05/12/24 22:34 86 L 05/12/24 22:19 65 22 147/113 H 95 05/12/24 21:41 22 97 05/12/24 21:41 75 22 98 05/12/24 20:56 67 05/12/24 20:51 96 05/12/24 20:51 37.0 C 73 20 103/53 L 96 05/12/24 20:51 O2 Del Method O2 Flow Rate FiO2 05/13/24 00:30 BiPAP 05/13/24 00:00 BiPAP 05/12/24 23:00 BiPAP 40 05/12/24 22:34 BiPAP 35 05/12/24 22:19 BiPAP 35 05/12/24 21:41 BiPAP 30 05/12/24 21:41 35 05/12/24 20:56 05/12/24 20:51 Non-rebreather 05/12/24 20:51 Non-rebreather 15 05/12/24 20:51 Non-rebreather 10 Laboratory Results Laboratory Results WBC 7.43 K/ul (4.8-10.8) 05/12/24 20:51 RBC 3.64 M/uL (4.70-6.10) L 05/12/24 20:51 Hgb 10.4 g/dl (14.0-18.0) L 05/12/24 20:51 Hct 33.8 % (42.0-52.0) L 05/12/24 20:51 MCV 92.9 fL (80.0-100.0) 05/12/24 20:51 MCH 28.6 pg (25.0-34.0) 05/12/24 20:51 MCHC 30.8 g/dL (32.0-36.0) L 05/12/24 20:51 RDW Std Deviation 54.4 fL (36.4-46.3) H 05/12/24 20:51 RDW Coeff of Dhaval 15.9 % (11.5-14.5) H 05/12/24 20:51 Plt Count 309 K/uL (130-400) 05/12/24 20:51 MPV 9.4 fL (9.4-12.4) 05/12/24 20:51 Immature Gran % (Auto) 0.5 % 05/12/24 20:51 Neut % (Auto) 75.0 % 05/12/24 20:51 Lymph % (Auto) 8.6 % 05/12/24 20:51 [place] % (Auto) 11.6 % 05/12/24 20:51 Eos % (Auto) 3.5 % 05/12/24 20:51 Baso % (Auto) 0.8 % 05/12/24 20:51 Neut # (Auto) 5.57 K/uL (1.40-6.50) 05/12/24 20:51 Lymph # (Auto) 0.64 K/uL (1.20-3.40) L 05/12/24 20:51 [place] # (Auto) 0.86 K/uL (0.11-0.59) H 05/12/24 20:51 Eos # (Auto) 0.26 K/uL (0.00-0.50) 05/12/24 20:51 Baso # (Auto) 0.06 K/uL (0.00-0.20) 05/12/24 20:51 Immature Gran # (Auto) 0.04 K/uL (0.01-0.20) 05/12/24 20:51 PT 25.8 Seconds (9.0-12.0) H 05/12/24 20:51 INR 2.6 (0.9-1.1) H 05/12/24 20:51 VBG pH 7.30 (7.36-7.41) L 05/12/24 23:56 VBG pCO2 82 mmHg (38-50) H 05/12/24 23:56 VBG pO2 38 mmHg 05/12/24 23:56 VBG HCO3 40 mmol/L 05/12/24 23:56 VBG O2 Saturation 67.7 % 05/12/24 23:56 VBG Base Excess 10.4 mEq/L 05/12/24 23:56 Sodium 133 mmol/L (136-145) L 05/12/24 20:51 Potassium 5.1 mmol/L (3.5-5.1) 05/12/24 20:51 Chloride 93 mmol/L (98-107) L 05/12/24 20:51 Carbon Dioxide 35 mmol/L (21-32) H 05/12/24 20:51 Anion Gap 5 (3-11) 05/12/24 20:51 BUN 39 mg/dl (6-23) H 05/12/24 20:51 Creatinine 1.00 mg/dl (0.6-1.4) 05/12/24 20:51 Est Cr Clr Drug Dosing 99.6 ml/min 05/12/24 20:51 Est GFR ( Amer) 89.9 ml/min 05/12/24 20:51 Est GFR (Non-Af Amer) 77.5 ml/min 05/12/24 20:51 BUN/Creatinine Ratio 39.0 (10-20) H 05/12/24 20:51 Glucose 160 mg/dl (70-99(Fasting)) H 05/12/24 20:51 Calcium 9.3 mg/dl (8.6-10.3) 05/12/24 20:51 Magnesium 2.0 mg/dl (1.7-2.4) 05/12/24 20:51 Total Bilirubin 0.3 mg/dl (0.2-1.0) 05/12/24 20:51 AST 24 U/L (13-39) 05/12/24 20:51 ALT 21 U/L (7-52) 05/12/24 20:51 Alkaline Phosphatase 95 U/L (34-104) 05/12/24 20:51 Troponin I High Sens 32.5 pg/ml (0-20) H 05/12/24 23:56 B-Natriuretic Peptide 305 pg/ml (0-100) H 05/12/24 20:51 Total Protein 7.5 gm/dl (6.0-8.3) 05/12/24 20:51 Albumin 3.6 gm/dl (3.4-5.0) 05/12/24 20:51 Globulin 3.9 gm/dl (2.5-4.0) 05/12/24 20:51 Albumin/Globulin Ratio 0.9 (0.9-2) 05/12/24 20:51 Lipase 47 U/L (11-82) 05/12/24 20:51 Diagnostic Findings Chest x-ray as per my interpretation bilateral infiltrates/congestion EKG as per my interpretation : Rate 70, A-fib, normal axis, septal infarct, no ischemia
[2024-05-13] MEDS: methylPREDNISolone 125 MG/2 ML VIAL IV STA (01:02)
[2024-05-13] MEDS: AMPICILLIN/SULBACTAM SOD 3,000 MG in SODIUM CHLOR 0.9% MINI-B 100 ML IV STA (01:15)
[2024-05-13] MEDS ORDERED: oxyCODONE HCL IR 5 MG TAB (IMMEDIATE RELEASE) PO PRN (01:19)
[2024-05-13] MEDS ORDERED: PROMETHAZINE HCL 12.5 MG in SODIUM CHLORIDE 0.9% 50 ML IV PRN (01:19)
[2024-05-13 02:21] LABS: Base Excess ABG 10.6 mEq/L (-9-1.8); HCO3 ABG 39 mmol/L (19-24); Oxygen Saturation ABG 94.7 % (90-95); PCO2 ABG 67 mmHg (35-46); PO2 ABG 67 mmHg (80-95); pH ABG 7.37 (7.35-7.45)
[2024-05-13 02:26] LABS: Allen Test Pos (Pos)
[2024-05-13] MEDS ORDERED: GLUCOSE 10 TAB/TUBE PO PRN (04:07)
[2024-05-13] MEDS ORDERED: DEXTROSE 50% 50 ML SYRINGE IV PRN (04:07)
[2024-05-13] MEDS ORDERED: GLUCOSE 40% GEL 15 GM TUBE PO PRN (04:07)
[2024-05-13] MEDS ORDERED: GLUCAGON FOR INJ 1 MG VIAL SQ PRN (04:07)
[2024-05-13] MEDS ORDERED: CARBOHYDRATES FOR HYPOGLYCEMIA PO PRN (04:07)
[2024-05-13] MEDS: INSULIN ASPART PER UNIT CHARGE SC SCH (04:25)
[2024-05-13] MEDS: LANTUS PER UNIT CHARGE SQ SCH (04:46)
[2024-05-13 06:44] LABS: Hematocrit (blood only) 33.2 % (42.0-52.0); Hemoglobin 10.3 g/dl (14.0-18.0); Mean Corpuscular Hemoglobin 28.4 pg (25.0-34.0); Mean Corpuscular Volume 91.5 fL (80.0-100.0); Mean Platelet Volume 9.3 fL (9.4-12.4); Platelet Count 290 K/uL (130-400); RDW Coefficient of Variation 15.6 % (11.5-14.5); RDW Standard Deviation 52.1 fL (36.4-46.3); Red Blood Count 3.63 M/uL (4.70-6.10); White Blood Count 7.04 K/ul (4.8-10.8)
[2024-05-13 07:07] LABS: BUN Creatinine Ratio 49.4 (10-20); Calcium 9.5 mg/dl (8.6-10.3); Creatinine Clr Calc Pharmacy 117.3 ml/min; Est GFR (African American) 105.5 ml/min; Potassium 5.1 mmol/L (3.5-5.1)
[2024-05-13 07:08] LABS: INR 2.6 (0.9-1.1); Prothrombin Time 25.6 Seconds (9.0-12.0)
[2024-05-13 07:10] LABS: Basophils # (auto) 0.05 K/uL (0.00-0.20); Basophils % (auto) 0.7 %; Eosinophils # (auto) 0.06 K/uL (0.00-0.50); Eosinophils % (auto) 0.9 %; Immature Granulocytes # (auto) 0.04 K/uL (0.01-0.20); Immature Granulocytes % (auto) 0.6 %; Lymphocytes % (auto) 4.3 %; Monocytes # (auto) 0.19 K/uL (0.11-0.59); Monocytes % (auto) 2.7 %; Neutrophils % (auto) 90.8 %
--- OUTSIDE RECORDS SUMMARY | 2024-05-13 07:21 | External Medical Summary | Summary of Care ---
Author Name Unknown Organization [facility] Address [address] [facility] [address] Phone [phone] Care Team Providers Care Supervisor Livestock Yard Name Role Phone Charley Crane MD Primary Care Provider [phone] Encounter Details Date Type Department Care Team (Late st Contact Info) Description 05/12/2024 Telephone Access Center, [address] *DO NOT REMOVE THIS DEPARTMENT* [place] [address] ADDRESS AVAILABLE Allergies No known active allergiesdocumented as of this encounter (statuses as of 05/12/2024) Medications Medication Sig Dispensed Refills Start Date End Date Status Centrum Silver 50+Men Oral Tablet Take 1 Tablet by mouth daily. Active oxygen IN GAS Use 3 L/min(Oxygen) as directed continuous. Uses 2.5 LPM at night with BIPAP and as needed during the day Active BiPAP every night at bedtime. Active Ketoconazole 2 % External CreamIndications:S eborrheic dermatitis Apply to dry patches on face once daily 30 g 1 08/13/2023 Active Zoster Vac Recomb Adjuvanted 50 MCG/0.5ML Intramuscular Suspension Reconstituted (Shingrix) Inject 0.5 mL into a large muscle now and repeat dose in 60 to 180 days 1 Each 1 09/09/2023 Active Zoster Vac Recomb Adjuvanted 50 MCG/0.5ML Intramuscular Suspension Reconstituted (Shingrix) Inject 0.5 mL into a large muscle now and repeat dose in 60 to 180 days 1 Each 11/26/2023 Active guaiFENesin ER 600 MG Oral Tablet Extended Release 12 Hour (Mucinex) Take 1 Tablet by mouth 2 times a day. Active Empagliflozin 10 MG Oral Tablet (Jardiance) Take 1 Tablet by mouth in the morning. 90 Tablet 3 01/20/2024 Active Enalapril Maleate 10 MG Oral Tablet (Vasotec) Take 1 Tablet by mouth in the morning. 90 Tablet 3 01/20/2024 Active Isosorbide Mononitrate ER 60 MG Oral Tablet Extended Release 24 Hour (Imdur)Indications :Hypertension goal BP (blood pressure) < 130/80 Take 1 Tablet by mouth in the morning. 90 Tablet 3 01/20/2024 Active Pantoprazole Sodium 40 MG Oral Tablet Delayed Release (Protonix) Take 1 Tablet by mouth in the morning. 90 Tablet 3 01/20/2024 Active Potassium Chloride ER 10 MEQ Oral Capsule Extended Release Take 1 Capsule by mouth every other day. 45 Capsule 3 01/20/2024 Active Spironolactone 25 MG Oral Tablet (Aldactone) Take 1 Tablet by mouth in the morning. 90 Tablet 3 01/20/2024 Active Torsemide 20 MG Oral Tablet (Demadex) Take 2 tablets by mouth once daily 180 Tablet 3 01/20/2024 Active Trelegy Ellipta 100-62.5-25 MCG/ACT Aerosol Powder Breath Activated (Fluticasone-Umecl idinium-Vilanterol ) Inhale 1 Puff by mouth in the morning. 180 Blister Dosing Unit 3 01/20/2024 Active Warfarin Sodium 10 MG Oral Tablet (Coumadin) Take 1 to 1.5 tablets by mouth every day in the evening or as directed by the anticoagulation clinic. 100 Tablet 3 01/20/2024 Active Albuterol Sulfate HFA 108 (90 Base) MCG/ACT Inhalation Aerosol Solution Inhale 2 Puffs by mouth every 6 hours as needed for Shortness of Breath or Wheezing. 54 g 1 01/20/2024 Active Doxycycline Hyclate 100 MG Oral Capsule Take 1 Capsule by mouth in the morning and 1 Capsule before bedtime. Until gone. COPD rescue kit. 20 Capsule 01/23/2024 Active predniSONE 20 MG Oral Tablet (Deltasone) Take 2 Tablets by mouth in the morning. COPD rescue kit. 10 Tablet 01/23/2024 Active Fluticasone Propionate 50 MCG/ACT Nasal Suspension (Flonase) Administer 2 Sprays into each nostril in the morning. 16 g 1 02/10/2024 Active Atorvastatin Calcium 80 MG Oral Tablet (Lipitor)Indicatio ns:Dyslipidemia, goal LDL below 70 Take 1 Tablet by mouth in the morning. 90 Tablet 3 02/12/2024 Active Carvedilol 3.125 MG Oral Tablet (Coreg)Indications :Longstanding persistent atrial fibrillation (HCC),Hypertension goal BP (blood pressure) < 130/80,Chronic heart failure with preserved ejection fraction (HCC) Take 1 Tablet by mouth 2 times a day with morning and evening meals. 180 Tablet 3 04/28/2024 Active Doxycycline Hyclate 100 MG Oral Capsule Take 1 Capsule by mouth in the morning and 1 Capsule before bedtime. Do all this for 10 days. Until gone.. 20 Capsule 05/05/2024 05/15/20 24 Active Cephalexin 500 MG Oral Capsule Take 1 Capsule by mouth in the morning and 1 Capsule before bedtime. Do all this for 10 days. 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 0 2023 Longstanding persistent atrial fibrillation 06/29 Hypertension goal BP (blood pressure) < 130/80 0 07/17/2023 Dyslipidemia, goal LDL below 70 07/17/2023 Body mass index (BMI) of 40.0 to 44.9 in adult 0 07/08/2023 Overview: Per Obesity protocol 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 07/05/2023 BiPAP (biphasic positive airway pressure) depend ence 07/05/2023 PHT (pulmonary hypertension) 07/04/2023 Tobacco abuse, in remission 07/04/2023 Chronic respiratory failure with hypoxia and hyp ercapnia 07/04/2023 Obesity hypoventilation syndrome 07/04/2023 Family history of lung cancer 07/04/2023 Chronic heart failure with preserved ejection fr action 07/04/2023 Last Assessment & Plan: "RED FLAG" HF Symptoms: Leg Swelling (Examples: "I can't wear certain socks or shoes", "My pants feel tight") Increased dyspnea on exertion (Example: "I can't walk to the kitchen or up the stairs") Medication Regimen: Beta Laureano Therapy: Carvedilol ANGEL Inhibitor/ARB Therapy: Enalapril Diuretic therapy: Torsemide Aldactone SGLT2 Inhibitor: empagliflozin (ex. 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 06/21/2023 History of deep venous throm bosis (DVT) of distal vein of left lower extremity 06/08/2023 Type 2 diabetes mellitus wit h hemoglobin A1c goal of less than 7.0% 06/08/2023 Squamous cell carcinoma, face 06/08/2023 Venous insufficiency 06/08/2023 O2 dependent 06/08/2023 History of open leg wound 06/08/2023 On Coumadin for atrial fibrillation 06/08/2023 documented as of this encounter (statuses as of 05/12/2024) Resolved Problems Problem Noted Date Diagnosed Date Resolved Date Food insecurity 10/07/2023 03/11/2024 Overview: Per [facility] Protocol Anticoagulation management encounter 2023 09/09/2023 COPD, group B, by GOLD 2017 classification 07/08/2023 11/07/2023 Overview: Per COPD GOLD Classification Last Assessment & Plan: "RED FLAG" COPD symptoms: Cough ("I get a different kind of cough than what I' have every day") Change in mucous ("My normal mucous is clear but this is yellow and tastes terrible") Wheezing ("You can hear the whistling across the room") Medication Regimen All Classes - JULIA Class D - Inhaled Ofceqckwoiqcmw-WOSM-TTST Combination Inhaler (Trellegy) Remote Patient Monitoring Vendor: [facility] Device(s): Continuous Monitoring Device Traditional Scale Self-Management plan High frequency nebulizer treatments every 4-6 hours around the clock Exacerbation plan Chest Xray Additional Comments: On continuous o2 2-3lpm Bipap at night 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 07/05/2023 08/29/2023 Dyspnea 07/04/2023 08/13/2023 Occupational exposure in workplace 07/04/2023 02/14/2024 Chronic congestive heart failure 06/08/2023 07/05/2023 COPD, severe 06/08/2023 07/11/2023 Overview: Per COPD GOLD Classification Chronic hypoxemic respiratory failure 06/08/2023 07/04/2023 Chronic respiratory failure with hypoxia, on home oxygen therapy 06/08/2023 08/29/2023 Diabetes mellitus without complication 06/08/2023 08/29/2023 documented as of this encounter (statuses as of 05/12/2024) Immunizations Name Administration Dates Next Due Pneumococcal Conjugate Vaccine, 20-valent (Prevn ar20) 07/05/2023 Seasonal Influenza, Quadrivalent Hd (Fluzone Hd) 07/05/2023 Zoster Vaccine Recombinant (Shingrix) 04/13/2024 ,12/02/2023 documented as of this encounter Social History Tobacco Use Types Packs/Day Years Used Date Smoking Tobacco: Former Cigarettes 2012 Passive Smoke Exposure: Past Smokeless Tobacco: Former Snuff Comments:"May be a pack of c igarettes every 2-3 weeks" X 30 years. Quit 2012. Denies significant secondhand smoke exposure Alcohol Use Standard Drinks/Week Comments Never 0 (1 standard drink = 0.6 oz pur e alcohol) PHQ-2 Answer Date Recorded PHQ Adult Total Score 0 02/10/2024 Hunger Vital Sign Answer Date Recorded Within the past 12 months, y ou worried that your food would run out before you got the money to buy more. Patient declined Within the past 12 months, t he food you bought just didn't last and you didn't have money to get more. Patient declined Childcare Answer Date Recorded Do you feel overwhelmed with taking care of a child, family member or friend? No 02/10/2024 Does your family need help f inding childcare? (Household - for ages 0-17 years) Not on file 02/10/2024 Clothing Answer Date Recorded Have you been unable to get clothing when it was really needed? No 02/10/2024 Is your family able to get c lothes or diapers when needed? (Household - for ages 0-17 years) Not on file 02/10/2024 Personal Safety Answer Date Recorded Do you feel unsafe or have concerns for your saf ety? No 02/10/2024 Do you have concerns for you r family's safety? (Household - for ages 0-17 years) Not on file 02/10/2024 Utilities Answer Date Recorded Do you have trouble paying y our heating, water, or electric bill? No 02/10/2024 Is your family able to pay t he heat, water, or electric bill? (Household - for ages 0-17 years) Not on file 02/10/2024 Does your family have access to good internet? (Household - for ages 0-17 years) Not on file 02/10/2024 Employment Status Answer Date Recorded Are you unemployed or without regular income? No 02/10/2024 Does the [facility] have a [facility] source [facility] income? (Household - for ages 0-17 years) Not on file 02/10/2024 Social Connections Answer Date Recorded How often do you feel lonely or isolated from th ose around you? Never 02/10/2024 Financial Resource Strain Answer Date R ecorded Do you have any trouble payi ng for your medications, or do you think you might in the future? No 02/10/2024 Does your family have troubl e paying for medicine? (Household - for ages 0-17 years) Not on file 02/10/2024 Transportation Needs Answer Date Record ed READ ONLY Do you have troubl e getting a ride to medical visits or work? Never True 02/10/2024 Does your family have a hard time getting a ride to doctors visits? (Household - for ages 0-17 years) Not on file 02/10/2024 Has lack of transportation k ept you from medical appointments, meetings, work, or from getting things needed for daily living? Check all that apply. (Adult - for ages 18 years and over) Not on file 02/10/2024 Do you (or your family) have trouble finding or paying for a ride (transportation)? (Household - for ages 0-17 years) Not on file 02/10/2024 Housing Stability Answer Date Recorded Do you currently live in a s helter or have no steady place to sleep at night? No 02/10/2024 READ ONLY Do you think you a re at risk of becoming homeless? No 02/10/2024 Does your family worry about paying for your home or becoming homeless? (Household - for ages 0-17 years) Not on file 0 02/10/2024 Are you homeless or worried that you might be in the future? (Adult - for ages 18 years and over) Not on file Are you (or your family) samantha eless or worried that you might be in the future? (Household - for ages 0-17 years) Not on file Food Insecurity Answer Date Recorded Do you need food for this week? No 02/10/2024 Are you able to get enough f ood for your family? (Household - for ages 0-17 years) Not on file 02/10/2024 Does your family need food t his week? (Household - for ages 0-17 years) Not on file 02/10/2024 Do you always have enough fo od for your family? (Household - for ages 0-17 years) Not on file 02/10/2024 Sex and Gender Information Value Date Recorded Sex Assigned at Male 02/10/2024 12:57 PM EDT Gender Identity Male 02/10/2024 12:57 PM EDT Sexual Orientation Straight 02/10/2024 12 :57 PM EDT Job Start Date Occupation Industry Not on file Not on file Not on file documented as of this encounter Miscellaneous Notes * Telephone Encounter - Delilah Saxena OSA - 05/12/2024 8:56 AM EDT Pt His infection has not cleared up yet not sure what to do needs to talk to you [phone] documented in this encounter Plan of Treatment Upcoming Encounters Date Type Department Care Team (Late st Contact Info) Description 05/15/2024 8:30 AM EDT Home Visit [facility] [address] [place] [address] Michelle Kim, [place] [address] [place] [address] 05/18/2024 7:00 AM EDT Laboratory Lab Mobile Phlebotomy [facility] [address] [place] [address] [facility], [facility] Mobile Home Draw [address] [place] [address] 05/19/2024 6:00 AM EDT Anticoagulation Centralized Clinical Pharmacy Services, Oscar Peace [address] [place] [address] [place] [address] [facility], [address] [place] [address] 05/19/2024 11:00 AM EDT Office Visit [facility] [address] [place] [address] Steffanie Alfaro PA-C [address] [place] [address] 05/26/2024 2:00 PM EDT Office Visit [facility] [address] [place] [address] Steffanie Alfaro PA-C [address] [place] [address] 05/28/2024 2:15 PM EDT Office Visit Interventional Pain Center, [facility] [address] [facility] [place] [address] Johnathan Ferrer, DO [address] [place] [phone] 07/06/2024 11:00 AM EDT Office Visit Orthopaedics [facility] [address] [place] [address] Cm Dawson, DO [address] [place] [address] 08/10/2024 12:20 PM EDT Office Visit [place] [address] [place] [phone] Charley Crane MD [address] [place] [address] 09/02/2024 3:00 PM EST Office Visit Sleep [facility] [address] [place] [phone] Audrey Lee, DO [address] [place] [address] Health Maintenance Due Date Last Done Comments Alpha-1 Antitrypsin 1974 Hepatitis C Screening 1974 DTaP,Tdap,and Td Vaccines (1 - Tdap) 1975 Cologuard 2001 Colonoscopy 2001 Colorectal Cancer Screening 2001 Fecal Occult Blood Test 2001 Sigmoidoscopy 2001 AAA Screening 2021 COVID-19 Vaccine (2022-24 season) 2023 *COPD SEVERITY VERIFIED BY PFT 05/10/2024 *CXR OR CT FOR COPD EVER 05/10/2024 Diabetic Foot Exam 06/21/2024 06/21/2023 Influenza Vaccine (FLU shot) (#1) 2024 07/05/2023, 07/05/2023 HbA1c 08/11/2024 02/10/2024, 06/21/2023 Albumin/Creatinine Ratio 02/09/2025 02/10/2024 Depression Screening 02/09/2025 02/10/2024 GFR 02/09/2025 02/10/2024, 10/28, 09/26/2023, Additional history exists Diabetic Eye Exam 04/28/2025 04/28/2024, , 09/09/2023 O2 ASSESSMENT COMPLETED IN PAST YEAR FOR COPD 05/10/2025 05/10/2024 Pneumococcal Vaccine: 65+ Years Completed 07/05/2023 *BASELINE EKG FOR HTN Completed 07/17/2023 Zoster Vaccines Completed 04/13/2024, 12/02/2023 HPV (Gardasil) Vaccine Aged Out No lo nger eligible based on patient's age to complete this topic Hepatitis B Vaccine Aged Out No longe r eligible based on patient's age to complete this topic MENINGOCOCCAL (MENACTRA/MENVEO) Aged Out No longer eligible based on patient's age to complete this topic documented as of this encounter Medical Devices Not on filedocumented as of this encounter Care Teams Supervisor Livestock Yard Relationship Specialty Start Date End Date Charley Crane MD [address] [place] [address] PCP - General Internal Medicine 06/04/23 documented as of this encounter
--- OUTSIDE RECORDS SUMMARY | 2024-05-13 07:22 | External Medical Summary | Summary of Care ---
Author Name Unknown Organization [facility] Address [address] [facility] [place] [address] Phone [phone] Care Team Providers Care Customer Solutions Coordinator Name Role Phone Charley Crane MD Primary Care Provider [phone] Reason for Visit * Reason Onset Date Comments Appointment 05/12/2024 Encounter Details Date Type Department Care Team (Late st Contact Info) Description 05/12/2024 Telephone [facility]opaedics [facility] [address] [facility] [place] [address] Steffanie Alfaro PA-C [address] [facility] [address] Appointment Allergies No known active allergiesdocumented as of [...] 60 to 180 days 1 Each 1 11/26/2023 Active guaiFENesin ER 600 MG Oral [...] classification 11/04 Overview: Per COPD GOLD Classification correction current use of anticoagulant therapy 0 2023 Longstanding persistent atrial fibrillation 06/29 Hypertension goal BP (blood pressure) < 130/80 0 07/17/2023 Dyslipidemia, goal LDL below 70 07/17/2023 Body mass index (BMI) of 40.0 to 44.9 in adult 0 07/08/2023 Overview: Per Obesity protocol Atherosclerosis of [place] 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 Jardiance) Remote Patient Monitoring Vendor: [facility] Device(s): Connected Scale Continuous Monitoring Device Self [...] Classes - JULIA Class D - Inhaled Roftkcrkukxbxb-KSLJ-ZQUU Combination Inhaler (Trellegy) Remote Patient Monitoring Vendor: [facility] Device(s): Continuous Monitoring Device Traditional Scale Self-Management plan High frequency nebulizer treatments every 4-6 hours around the clock Exacerbation plan Chest Xray Additional Comments: On continuous o2 2-3lpm Bipap at night Atherosclerosis of [place] co 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 pectoris 07/05/2023 [...] Years Used Date Smoking Tobacco: Former Cigarettes 1 2012 Passive Smoke Exposure: Past Smokeless Tobacco: [...] No 02/10/2024 Does the household have a re gular source of income? (Household - for ages [...] encounter Miscellaneous Notes * Telephone Encounter - Ya Navarro OSA - 05/12/2024 11:58 AM EDT Called pt to let them know we added their 3rd appt on for Gel inj. On 05/26. Pt's son was in the middle of talking with the ambulance as they showed up to Bala's house. Briefly let his son know this appt was scheduled and told him to take care of his father first and foremost and I will touch base with them later. Will call pt back again to inform them that they have a third gel scheduled for 05/26. documented in this encounter Plan of Treatment Upcoming Encounters Date Type Department Care Team (Late st Contact Info) Description 05/15/2024 8:30 AM EDT Home Visit [facility] [address] [place] [address] [address] Michelle Kim, RN [address] [place] [address] 05/18/2024 7:00 AM EDT Laboratory Lab Mobile Phlebotomy [facility] [address] [place] [address] [facility], Gml Mobile Home Draw [address] [facility] [place] [address] 05/19/2024 6:00 AM EDT Anticoagulation Centralized Clinical Pharmacy Services, Oscar Peace [address] [place] [address] [place] [address] [place] [address] 05/19/2024 11:00 AM EDT Office Visit Orthopaedics [facility] [address] [place] [address] [address] Steffanie Alfaro PA-C [address] [place] [address] 05/26/2024 2:00 PM EDT Office Visit Orthopa[facility]ics [facility] [address] [place] [address] Steffanie Alfaro PA-C [address] [place] [address] 05/28/2024 2:15 PM EDT Office Visit Interventional Pain Center, [facility] [address] [place] [address] Johnathan Ferrer, DO [address] [place] [phone] 07/06/2024 11:00 AM EDT Office Visit Orthopaedics [facility] [address] [place] [address] Cm Dawson, DO [address] [place] [address] 08/10/2024 12:20 PM EDT Office Visit [place] [address] [place] [phone] Charley Crane MD [address] [place] [address] 09/02/2024 3:00 PM EST Office Visit [facility] Disorders Ctr [facility] [address] [facility] [place] [phone] Audrey Lee, DO [address] [place] [phone] Health Maintenance Due Date Last Done Comments Alpha-1 Antitrypsin 1974 Hepatitis C Screening 1974 DTaP,Tdap,and Td Vaccines (1 - Tdap) 1975 Cologuard 2001 Colonoscopy 2001 Colorectal Cancer Screening 2001 Fecal Occult Blood Test 2001 Sigmoidoscopy 2001 AAA Screening 2021 COVID-19 Vaccine ( season) 2023 *COPD SEVERITY VERIFIED BY PFT [...] filedocumented as of this encounter Care Teams Customer Solutions Coordinator Relationship Specialty Start Date End Date Charley Crane MD [address] [place] [address] PCP - General Internal Medicine 06/04/23 documented as of this encounter
[2024-05-13] MEDS: ALBUT/IPRATROP 3MG/0.5MG NEB 3 ML VIAL NEB SCH (07:39)
--- NOTE | 2024-05-13 07:41 | XRay Report ---
XR chest 1V portable CLINICAL HISTORY: sob, cough TECHNIQUE: Single frontal radiograph of the chest was obtained. Comparison: Comparison is made to chest radiograph 06/14/2023 FINDINGS: No lines and tubes are seen. Calcified aortic knob is seen. Multifocal airspace opacities are seen. N o evidence of pleural effusion or pneumothorax. IMPRESSION: Multifocal airspace opacities may represent worsening pulmonary edema and/or aspiration/pneumonia. ACT 112: Negative or not required by law. Electronically signed by: Dex Freeman M.D. 05/13/2024 7:40 AM
[2024-05-13] MEDS: carvediloL 3.125 MG TAB PO SCH (08:36)
[2024-05-13] MEDS: FUROSEMIDE 40 MG/4 ML VIAL IV SCH ×2 (08:38→12:57)
[2024-05-13] MEDS: ATORVASTATIN 40 MG TAB PO SCH (08:38)
[2024-05-13] MEDS: FLUTICASONE FUROATE 100MCG 14 PUFFS/INHALER INH SCH (08:39)
[2024-05-13] MEDS: FLUTICASONE PROPIONATE NA SPR 16 GM BTL NAE SCH (08:40)
[2024-05-13] MEDS: guaiFENesin 600 MG TABCR PO SCH (08:40)
[2024-05-13] MEDS: ISOSORBIDE MONO EXTENDED REL 60 MG TABCR PO SCH (08:41)
[2024-05-13] MEDS: PANTOprazole 40 MG TAB PO SCH (08:42)
[2024-05-13] MEDS: UMECLIDINIUM/VILANTEROL 62.5/25MCG 7 PUFFS/INHALER INH SCH (08:44)
[2024-05-13] MEDS ORDERED: FUROSEMIDE 40 MG/4 ML VIAL IV SCH ×2 (09:00)
--- NOTE | 2024-05-13 11:19 | Electrocardiogram Report ---
Test Reason : Blood Pressure : / mmHG Vent. Rate : 072 BPM Atrial Rate : 000 BPM P-R Int : 000 ms QRS Dur : 088 ms QT Int : 354 ms P-R-T Axes : 000 017 044 degrees QTc Int : 387 ms Atrial fibrillation Septal infarct , age undetermined Abnormal ECG When compared with ECG of 10-JUN-2023 11:17, Septal infarct is now Present Confirmed by Jac Blas ([id number]) on 05/13/2024 11:18:35 AM Referred By: REFERRED SELF Confirmed By:Jac Blas
--- NOTE | 2024-05-13 13:25 | Cardiology Consultation ---
Date of Consultation May 13, 2024 Assessment & Plan (1) Acute respiratory failure with hypoxia and hypercarbia: (2) Acute on chronic heart failure with preserved ejection fraction: (3) Obesity hypoventilation syndrome: (4) Chronic a-fib: Plan Assessment: 68 year-old male with presents with two weeks or worsening dyspnea, low SPO2 and lower extremity edema. Chest xray demonstrates modest volume overload, but can not exclude possible infectious process. Plan: -Patient's dyspnea is likely multifactorial and when hemodynamically stable should undergo CT of chest for further evaluation. -Demonstrates severe volume overload, in part due to dietary indiscretion. Reports medication compliance. -Also expressed concern for possible aspiration due drinking with bipap in place -Continue Bipap HS and as needed given respiratory status. -Continue Furosemide 40mg IV TID at this time with close monitoring of renal function, electrolytes, daily weights (standing scale preferred), and Strict I&O. -maintain 1500ml fluid restriction and less than 2G Na daily. -Encourage elevation of legs with either use of AUSTIN stockings or compression wraps to mobilize fluid. -CHF teaching -Maintain serum K> 4.0 and Serum Mag> 2.0 -Continue Coreg, Imdur, and Atorvastatin as per current home regimen. -Continue antibiotics and nebulizer treatments as per primary team management -Sputum culture pending. -Re-evaluate volume status in the AM. Case has been discussed with Dr. Garcia. Further recommendations regarding plan of care as per his assessment. I spent a total of 40 minutes on the date of service in preparation, delivery, documentation of the care provided to the patient excluding any time spent in the performance of separately billed services. GIACOMO Greer [facility] Cardiology [facility] Supervising Physician Co-Signing Physician Notes Attending attestation: Case reviewed with the advanced practitioner. I have personally performed a history and physical examination on the patient. I have reviewed the advanced practitioner's documentation on the date of service referenced in note, and I agree with, and take responsibility for the plan of care. INR 2.6, continue current dose of Coumadin. Proceed with IV diuretics as noted. Monitor renal function and potassium. Given cough productive of mucus agree with prednisone, inhaled bronchodilators Positive pressure ventilation at bedtime and with naps. I spent a total of 20 minutes coordinating, documenting, and providing care for this patient excluding time spent in the performance of separately billed services or time spent by another provider. Sandeep Garcia DO History of Present Illness Reason for Consultation: Decompensated CHF Requesting Physician: Lizzy reaves Attending Physician: Ricardo Viera MD History of Present Illness HPI: Patient is a 68 year-old male with PMHx as stated below that presented to the ED with 2 weeks of a moist non-productive cough, headache, SPO2 noted to be in the 60's at home with transient confusion. He reports medication compliance and attempts to follow a lower sodium diet, but did endorse he eats some occasional pickles. Patient consumes approximately 80-100oz of fluids per day. Patient states that he sleeps in a recliner and he wears a bipap. He reports that he has learned to drink from a straw while continuing to wear his Bipap at night. Nursing staff states that today during a break from Bipap, he was chugging water and was coughing as a result, but when given crackers and pudding, did not have any issues. He is resting comfortably in bed at this time. Denies chest pain, pressure, palpitations, pre-syncope or syncope. Does endorse ongoing dyspnea even at rest, but worse with any exertion. Also endorses leg swelling that is more than his "usual". PMHx: 1.morbid obesity 2.Chronic respiratory failure with hypoxia/COPD; O2 dependent at 3 L at baseline, BIPAP during sleep 3.DM type II 4.COPD 5. Chronic A-fib, anticoagulated on Coumadin, 6.history of DVT 7.Chronic venous insufficiency for which he has had multiple interventions on his LE at outside facilities in [place]. 8.Chronic HFpEF BNP 305 HS Troponin 30.8/32.5 EKG on admission demonstrates Atrial fibrillation with septal infarct rate 72bpm Echocardiogram obtained today, technically limited due to patient characteristics/poor acoustic windows. LV function is normal (55-60%) Mild TR Severe Pulmonary HTN, PASP 65mmHg Chest X-ray 05/13/24: IMPRESSION: Multifocal airspace opacities may represent worsening pulmonary edema and/or aspiration/pneumonia. Patient is to have a CT chest; however, was unable to tolerate laying flat at time of order without significant desaturation and therefore plan is to pursue once hemodynamically stable. Review of telemetry shows A-Fib, rates typically 60's. there was notation of a decrease in HR to the 30''s at 1220 while patient was asleep. This had lasted approx 3-4 complexes and improved back into the 60's Allergies Allergy/AdvReac Type Severity Reaction Status Date / Time No Known Allergies Allergy Verified 05/12/24 23:12 Home Medications Medication Instructions Recorded Confirmed Type empagliflozin 10 mg tablet 10 mg PO QAM 06/10/23 05/12/24 History enalapril maleate 10 mg tablet 10 mg PO DAILY 06/10/23 05/12/24 History fluticasone fur. 100 mcg-umeclid 1 inh inhalation DAILY 06/10/23 05/12/24 His tory 62.5 mcg-vilant 25 mcg inhalat.powder (Trelegy Ellipta) isosorbide mononitrate 60 mg 60 mg PO QAM 06/10/23 05/12/24 History tablet,extended release 24 hr ophlvehu-ow-rybbz 300 mcg-K 60 1 tab PO DAILY 06/10/23 05/12/24 History mcg-lycop 600 mcg-lutein 300 mcg tablet (Centrum Silver Men) pantoprazole 40 mg tablet,delayed 40 mg PO DAILY 06/10/23 05/12/24 History release potassium chloride 10 mEq 10 meq PO Q OTHER DAY 06/10/23 05/12/24 History tablet,extended release warfarin 10 mg tablet See Rx Instructions .Route .COMPLEX 06/10/23 05/12/24 History carvedilol 3.125 mg tablet 3.125 mg PO BIDM #60 tabs 06/17/23 05/12/24 Rx spironolactone 25 mg tablet 25 mg PO QAM #30 tabs 06/17/23 05/12/24 Rx albuterol sulfate 90 mcg/actuation 2 puff inhalation Q6H PRN 05/12/24 05/12/24 History aerosol inhaler Shortness Of Breath Or Wheezing atorvastatin 80 mg tablet 80 mg PO QAM 05/12/24 05/12/24 History cephalexin 500 mg capsule 500 mg PO BID 05/12/24 05/12/24 History doxycycline hyclate 100 mg capsule 100 mg PO BID 05/12/24 05/12/24 History doxycycline hyclate 100 mg capsule 100 mg PO BID PRN COPD RESCUE KIT 05/12/24 05/12/24 History fluticasone propionate 50 2 spray intranasal DAILY 05/12/24 05/12/24 History mcg/actuation nasal spray,suspension guaifenesin 600 mg tablet, 600 mg PO BID 05/12/24 05/12/24 History extended release 12 hr (Mucinex) ipratropium 0.5 mg-albuterol 3 mg 3 ml inhalation Q6H PRN Shortness 05/12/24 05/12/24 History (2.5 mg base)/3 mL nebulization Of Breath soln ketoconazole 2 % topical cream 1 applic topical DIRECTED PRN 05/12/24 05/12/24 History DRY SKIN PATCHES prednisone 20 mg tablet 40 mg PO DAILY PRN COPD RESCUE KIT 05/12/24 05/12/24 History torsemide 20 mg tablet 40 mg PO QAM 05/12/24 05/12/24 History Patient History Medical History (Updated 05/13/24 @ 15:03 by Sandeep Garcia DO) Obesity hypoventilation syndrome Hx of smoking Chronic congestive heart failure Hx of deep venous thrombosis Surgical History (Updated 06/10/23 @ 14:15 by Pham Lindo PA-C) No pertinent past surgical history Family History (Updated 06/10/23 @ 14:17 by Pham Lindo PA-C) Other Diabetes Social History (Updated 06/10/23 @ 13:20 by Pham Lindo PA-C) Smoking Status: Former smoker Tobacco Type: Cigarettes Second Hand Exposure: Yes; Do You Dip or Chew Tobacco: No; Tobacco Cessation Education Requested by Patient: No Hx Alcohol Use: Yes Alcohol type: beer Hx Substance Use: No Preferred Language: Wolof Communication Ability: Effective Diagram Clerk Required: No Beliefs That Will Affect Care: None Current Living Situation: Family Other Information That Helps Us Care for You: No Feels Safe at Home: Yes Safety Concerns: Feels Safe At This Time Assistive Devices: Denture - Upper, Glasses, Oxygen - Continuous and Walker Review of Systems Review of Systems: All systems reviewed & are unremarkable except as noted in HPI & below Respiratory: + cough and + dyspnea on exertion Cardiovascular: + edema Physical Exam Constitutional: + ill appearing and + obese; no acute di stress Neck: normal visual inspection and trachea midline Respiratory: normal respiratory effort, + cough (moist productive) and able to speak in complete sentences; no respiratory distress, no labored breathing and no retractions Auscultation: + crackles (right lower base), + rhonchi (throughout) and + wheezes (exp. wheezes bilateral upper lobes) Cardiovascular: Rate/Rhythm: regular rate and + irregularly irregular Heart Sounds: normal S1 and normal S2; no murmur Vessels: dorsalis pedis pulses present; no JVD Extremities: + edema (+2 BLE) Skin: + erythema (bilateral lower extremities ) Psychiatric: A+Ox3, euthymic affect Results & Data Vital Signs (Past 12 Hours) Vital Signs Temp Pulse Pulse Resp BP BP BP 05/13/24 12:57 126/73 05/13/24 11:32 50 L 25 H 104/69 05/13/24 10:52 82 05/13/24 09:15 05/13/24 08:49 37.1 C 73 24 190/81 H 05/13/24 08:35 05/13/24 08:00 05/13/24 07:41 84 24 05/13/24 07:41 68 24 05/13/24 03:05 78 28 H 05/13/24 03:04 05/13/24 03:04 37.0 C 74 24 153/88 H 05/13/24 03:04 05/13/24 03:00 79 05/13/24 02:00 64 23 120/71 05/13/24 01:30 05/13/24 01:30 37.0 C 76 22 152/94 H 05/13/24 01:30 80 24 152/94 H Pulse Ox Pulse Ox O2 Del Method O2 Del Method O2 Flow Rate FiO2 05/13/24 12:57 05/13/24 11:32 96 BiPAP 05/13/24 10:52 05/13/24 09:15 BiPAP 35 05/13/24 08:49 96 BiPAP 35 05/13/24 08:35 BiPAP 05/13/24 08:00 95 BiPAP 05/13/24 07:41 97 BiPAP 45 05/13/24 07:41 97 45 05/13/24 03:05 93 35 05/13/24 03:04 BiPAP 05/13/24 03:04 93 BiPAP 35 05/13/24 03:04 93 BiPAP 05/13/24 03:00 05/13/24 02:00 93 BiPAP 35 05/13/24 01:30 BiPAP 05/13/24 01:30 93 Ambu-Bag, BiPAP 35 05/13/24 01:30 94 BiPAP 18 40 Laboratory Results Cardiac Enzymes 05/12/24 05/12/24 Range/Units 20:51 23:56 AST 24 (13-39) U/L Troponin I High Sens 30.8 H 32.5 H (0-20) pg/ml B-Natriuretic Peptide 305 H (0-100) pg/ml Coagulation 05/12/24 05/13/24 Range/Units 20:51 06:02 PT 25.8 H 25.6 H (9.0-12.0) Seconds B-Natriuretic Peptide 305 H (0-100) pg/ml CBC 05/12/24 05/13/24 Range/Units 20:51 06:02 WBC 7.43 7.04 (4.8-10.8) K/ul RBC 3.64 L 3.63 L (4.70-6.10) M/uL Hgb 10.4 L 10.3 L (14.0-18.0) g/dl Hct 33.8 L 33.2 L (42.0-52.0) % Plt Count 309 290 (130-400) K/uL Neut # (Auto) 5.57 6.40 (1.40-6.50) K/uL Lymph # (Auto) 0.64 L 0.30 L (1.20-3.40) K/uL [place] # (Auto) 0.86 H 0.19 (0.11-0.59) K/uL Eos # (Auto) 0.26 0.06 (0.00-0.50) K/uL Baso # (Auto) 0.06 0.05 (0.00-0.20) K/uL Comprehensive Metabolic Panel 05/12/24 05/13/24 Range/Units 20:51 06:02 Sodium 133 L 138 (136-145) mmol/L Potassium 5.1 5.1 (3.5-5.1) mmol/L Chloride 93 L 94 L (98-107) mmol/L Carbon Dioxide 35 H 37 H (21-32) mmol/L BUN 39 H 41 H (6-23) mg/dl Creatinine 1.00 0.83 (0.6-1.4) mg/dl Glucose 160 H 151 H (70-99(Fasting)) mg/dl Calcium 9.3 9.5 (8.6-10.3) mg/dl AST 24 (13-39) U/L ALT 21 (7-52) U/L Alkaline Phosphatase 95 (34-104) U/L Total Protein 7.5 (6.0-8.3) gm/dl Albumin 3.6 (3.4-5.0) gm/dl Intake and Output 05/12/24 05/13/24 05/13/24 22:59 06:59 14:59 Intake Total 100 / 100 60 / 60 Output Total 2600 / 2600 1200 / 1200 Balance -2500 / -2500 -1140 / -1140 Intake: IV 100 / 100 Ampicillin/Sulbactam Sod 3,000 100 / 100 mg In Sodium Chlor 0.9% Mini-B 100 ml @ 200 mls/hr IV NOW STA Rx#:[id number] Oral 0 / 0 60 / 60 Output: Urine Amount (Catheter) 2600 / 2600 1200 / 1200 Barron/Indwelling 2600 / 2600 1200 / 1200 Other: Other Intake Source NPO Weight 149.8 kg 144.3 kg Weight Measurement Method Built [facility]
[2024-05-13] MEDS ORDERED: ALBUT/IPRATROP 3MG/0.5MG NEB 3 ML VIAL NEB SCH (13:45)
[2024-05-13] MEDS: AZITHROMYCIN 250 MG TAB PO SCH (14:04)
[2024-05-13] MEDS: cefTRIAXone SODIUM 2,000 MG/50 ML BAG IV SCH (14:04)
--- NOTE | 2024-05-13 14:17 | Hospitalist Progress Note ---
Date of Service May 13, 2024 Assessment & Plan (1) Acute respiratory failure with hypoxia and hypercarbia: Plan: Acute on chronic hypoxic respiratory failure Acute on chronic diastolic heart failure Pneumonia Possible COPD exacerbation Patient presented from home with desaturation of oxygen to 60%; BNP elevated to 305 Chest x-ray personally reviewed; shows multifocal airspace opacities ABG reviewed; pH of 7.37; pCO2 of 67 Echocardiogram shows normal LV systolic function. Severe pulmonary hypertension. Diuresed with IV Lasix 40 mg 3 times daily. Daily weights, Strict input and output monitoring For pneumonia; placed on ceftriaxone and azithromycin, hypertonic saline nebs for airway clearance For COPD exacerbation; budesonide, formoterol nebs, steroids, and antibiotics BiPAP as needed and at night CT chest pending Elevated troponin, likely demand ischemia EKG on admission personally reviewed; atrial fibrillation with ventricular rate of 72 Echo as above Chronic conditions; Atrial fibrillationEKG as above, continue on Coumadin and Coreg Hypertensioncontinue Coreg, Imdur, spironolactone. Type 2 diabetes mellitussliding scale Hyperlipidemiacontinue Lipitor Chronic anemiahemoglobin at baseline CODE STATUS full code DVT prophylaxis Coumadin Time spent evaluating patient, direct bedside care, chart review, placing orders, interpretation of diagnostic studies, discussion with consultants, patient, and family members, as well as other required patient management activities is 60 minutes Please note the above document was generated using voice recognition software. It may contain grammatical, syntax or spelling errors. Any formal questions or concerns about the content, text or information contained within the body of this dictation should be directly addressed to the provider for clarification Admission and Anticipated Discharge Date Admission Date: May 13, 2024 Subjective Patient seen in the morning and in afternoon. In the morning, he was on BiPAP; pulling in about 500 to 600 cc of tidal volume. Barron was in place draining clear urine. In the afternoon, he was alert oriented x 3 ; on 8 L of nasal cannula. Reports that his shortness of breath has slightly improved compared to admission. Telemetry shows atrial fibrillation with ventricular rate of 40s to 60s Review of Systems Review of Systems: All systems reviewed & are unremarkable except as noted in Subjective Physical Exam Physical Exam: Constitutional: Alert oriented x 3 Respiratory: Bilateral crackles in b/l bases Cardiovascular: RRR, no murmur, no edema Vessels: no JVD or carotid bruit Chest: normal inspection of chest Abdomen: normal bowel sounds, soft, nontender, no hepatosplenomegaly Musculoskeletal: no cyanosis or clubbing, extremities motor strength 5/5. 3+ pitting edema Skin: no rashes, warm and dry normal turgor Neurologic: PERRL, EOMI, accommodation nl, no face palsy, no dysarthria CN's II- XI intact bilaterally and moves all extremities Psychiatric: A+Ox3, euthymic affect Results & Data Results & Data Vital Signs (Past 12 Hours) Vital Signs Temp Pulse Pulse Resp BP BP Pulse Ox 05/13/24 13:17 64 18 94 05/13/24 13:00 05/13/24 12:57 126/73 05/13/24 11:32 50 L 25 H 104/69 96 05/13/24 10:52 82 05/13/24 09:15 05/13/24 08:49 37.1 C 73 24 190/81 H 96 05/13/24 08:35 05/13/24 08:00 05/13/24 07:41 84 24 97 05/13/24 07:41 68 24 97 05/13/24 03:05 78 28 H 93 05/13/24 03:04 05/13/24 03:04 37.0 C 74 24 153/88 H 93 05/13/24 03:04 05/13/24 03:00 79 Pulse Ox O2 Del Method O2 Del Method O2 Flow Rate FiO2 05/13/24 13:17 Nasal Cannula 8 05/13/24 13:00 High Flow Nasal Cannula 8 05/13/24 12:57 05/13/24 11:32 BiPAP 05/13/24 10:52 05/13/24 09:15 BiPAP 35 05/13/24 08:49 BiPAP 35 05/13/24 08:35 BiPAP 05/13/24 08:00 95 BiPAP 05/13/24 07:41 BiPAP 45 05/13/24 07:41 45 05/13/24 03:05 35 05/13/24 03:04 BiPAP 05/13/24 03:04 BiPAP 35 05/13/24 03:04 93 BiPAP 05/13/24 03:00
[2024-05-13] MEDS: FORMOTEROL 20 MCG/2 ML VIAL NEB SCH (15:53)
[2024-05-13] MEDS: BUDESONIDE 0.5 MG/2 ML VIAL (PULMICORT) NEB SCH (15:53)
[2024-05-13] MEDS: SODIUM CHLOR 7% 4 ML NEB NEB SCH (15:53)
[2024-05-13] MEDS: WARFARIN SOD 10 MG TAB PO SCH (17:05)
--- NOTE | 2024-05-13 19:00 | CT Scan Report ---
Exam(s): CT CHEST Without Contrast EXAM: CT Chest Without Intravenous Contrast CLINICAL HISTORY: Reason for exam: cough. TECHNIQUE: Axial computed tomography images of the chest without intravenous contrast. CTDI is 60.02 mGy and DLP is 1123.94 mGy-cm. Automated exposure control was utilized for the study. A dose lowering technique was utilized adhering to the principles of ALARA. COMPARISON: No relevant prior studies available. FINDINGS: Lungs: Multifocal bilateral airspace consolidations and opacities. Consolidations with air bronchograms involving the right middle lobe, superior segment of the left lower lobe, and bilateral lung bases. Additional patchy opacities involving all lung lobes. Pleural space: Unremarkable. No pneumothorax. No significant effusion. Heart: Coronary artery atherosclerosis. No cardiomegaly or pericardial effusion. Thyroid: Unremarkable. Normal thyroid. Bones/joints: Unremarkable. No acute fracture. No dislocation. Soft tissues: Unremarkable. Vasculature: Enlarged main pulmonary artery compatible with pulmonary arterial hypertension. No aortic aneurysm. Lymph nodes: Enlarged right paratracheal lymph node measuring 16 mm. Enlarged subcarinal lymph node measuring 17 mm. Additional subcentimeter we distended and hilar lymph nodes. No axillary lymphadenopathy. IMPRESSION: Multifocal bilateral airspace consolidations and opacities. Consolidations with air bronchograms involving the right middle lobe, superior segment of the left lower lobe, and bilateral lung bases. Additional patchy opacities involving all lung lobes. Findings suspicious for multifocal pneumonia. Imaging follow-up to resolution recommended. Electronically signed by: Art Garcia M.D. 05/13/24 18:59 PM
--- NOTE | 2024-05-13 19:01 | CT Scan Report ---
Exam(s): CT HEAD Without Contrast EXAM: CT Head Without Intravenous Contrast CLINICAL HISTORY: Reason for exam: norton, coumadin. TECHNIQUE: Axial computed tomography images of the head/brain without intravenous contrast. CTDI is 37.51 mGy and DLP is 702.46 mGy-cm. Automated exposure control was utilized for the study. A dose lowering technique was utilized adhering to the principles of ALARA. COMPARISON: No relevant prior studies available. FINDINGS: Brain: Age-related parenchymal volume loss. Patchy white matter hypodensity suggesting mild chronic small vessel ischemic change. Alfaro- white matter differentiation maintained. No hemorrhage, mass-effect, or edema. Ventricles: Unremarkable. No hydrocephalus. Bones/joints: Unremarkable. No acute fracture. Soft tissues: Unremarkable. Vasculature: Intracranial atherosclerosis. Sinuses: Mild mucosal thickening right maxillary sinus. Mastoid air cells: Unremarkable as visualized. No mastoid effusion. IMPRESSION: No acute intracranial process. Electronically signed by: Art Garcia M.D. 05/13/24 19:00 PM
[2024-05-13] MEDS ORDERED: AMOXICILLIN/CLAVULANATE 875 MG TAB PO SCH (20:00)
[2024-05-14] MEDS: ACETAMINOPHEN 325 MG TAB PO PRN (02:17)
[2024-05-14 07:11] LABS: Basophils # (auto) 0.04 K/uL (0.00-0.20); Basophils % (auto) 0.5 %; Eosinophils # (auto) 0.31 K/uL (0.00-0.50); Eosinophils % (auto) 3.5 %; Hemoglobin 9.7 g/dl (14.0-18.0); Immature Granulocytes # (auto) 0.06 K/uL (0.01-0.20); Immature Granulocytes % (auto) 0.7 %; Lymphocytes # (auto) 0.99 K/uL (1.20-3.40); Lymphocytes % (auto) 11.2 %; Mean Corpuscular Hemoglobin 28.4 pg (25.0-34.0); Mean Corpuscular Hgb Conc 31.3 g/dL (32.0-36.0); Mean Corpuscular Volume 90.9 fL (80.0-100.0); Mean Platelet Volume 9.2 fL (9.4-12.4); Monocytes # (auto) 0.97 K/uL (0.11-0.59); Neutrophils # (auto) 6.46 K/uL (1.40-6.50); Neutrophils % (auto) 73.1 %; Platelet Count 301 K/uL (130-400); RDW Coefficient of Variation 15.2 % (11.5-14.5); RDW Standard Deviation 50.8 fL (36.4-46.3); Red Blood Count 3.41 M/uL (4.70-6.10); White Blood Count 8.83 K/ul (4.8-10.8)
[2024-05-14 07:28] LABS: BUN Creatinine Ratio 51.4 (10-20); Calcium 9.4 mg/dl (8.6-10.3); Creatinine Clr Calc Pharmacy 92.7 ml/min; Est GFR (African American) 84.7 ml/min; Est GFR (Non-African American) 73.1 ml/min; Potassium 4.7 mmol/L (3.5-5.1)
[2024-05-14 07:52] LABS: INR 2.5 (0.9-1.1); Prothrombin Time 25.1 Seconds (9.0-12.0)
[2024-05-14] MEDS: FUROSEMIDE 40 MG/4 ML VIAL IV SCH (08:09)
[2024-05-14] MEDS: predniSONE 20 MG TAB PO SCH (08:10)
--- NOTE | 2024-05-14 08:12 | Cardiology Progress Note ---
Date of Service May 14, 2024 Assessment & Plan (1) Acute respiratory failure with hypoxia and hypercarbia: (2) Acute on chronic heart failure with preserved ejection fraction: (3) Obesity hypoventilation syndrome: (4) Chronic a-fib: Plan Assessment: 68 year-old male with presents with two weeks or worsening dyspnea, low SPO2 and lower extremity edema. Chest xray demonstrates modest volume overload, but can not exclude possible infectious process. Plan: -Patient's dyspnea is likely multifactorial and when hemodynamically stable should undergo CT of chest for further evaluation. -Demonstrates severe volume overload, in part due to dietary indiscretion. Reports medication compliance. -Also expressed concern for possible aspiration due drinking with bipap in place -Continue Bipap HS and as needed given respiratory status. -Continue Furosemide 40mg IV TID at this time with close monitoring of renal function, electrolytes, daily weights (standing scale preferred), and Strict I&O. -maintain 1500ml fluid restriction and less than 2G Na daily. -Encourage elevation of legs with either use of [place] stockings or compression wraps to mobilize fluid. -CHF teaching -Maintain serum K> 4.0 and Serum Mag> 2.0 -Continue Coreg, Imdur, and Atorvastatin as per current home regimen. -Continue antibiotics and nebulizer treatments as per primary team management -Sputum culture pending. -Re-evaluate volume status in the AM. 05/14/2024: -patient continues with modest volume overload; however, is improved in comparison to yesterday. -currently off Bipap. On supplemental O2 via nasal cannula at 5LPM -CT chest suggest multi-focal pneumonia-Ongoing management per primary team with IV Rocephin, nebulizers and steroid management. -patient is diuresing well, renal function remains stable and electrolytes normal -Furosemide was reduced to 40mg IV BID which is reasonable as patient continues to improve clinically -Continue with strict I&O's, daily weights, 2g NA restriction, 1500ml Fluid restriction, Elevation of legs and use of compression stockings to assist in mobilization of fluid. -CHF teaching -Maintain serum K> 4.0 and Serum Mag> 2.0 -Continue Coreg, Imdur, and Atorvastatin as per current home regimen. -Reassess fluid status in the AM Case has been discussed with Dr. Garcia. Further recommendations regarding plan of care as per his assessment. I spent a total of 30 minutes on the date of service in preparation, delivery, documentation of the care provided to the patient excluding any time spent in the performance of separately billed services. GIACOMO [facility] Admission and Anticipated Discharge Date Admission Date: May 13, 2024 Supervising Physician Co-Signing Physician Notes Attending attestation: Case reviewed with the advanced practitioner. I have personally performed a history and physical examination on the patient. I have reviewed the advanced practitioner's documentation on the date of service referenced in note, and I agree with, and take responsibility for the plan of care. INR 2.5, continue current dose of Coumadin. Furosemide 40 mg IV twice daily, Barron catheter in place.. Given cough productive of mucus agree with prednisone, inhaled bronchodilators Positive pressure ventilation at bedtime and with naps. I spent a total of 20 minutes coordinating, documenting, and providing care for this patient excluding time spent in the performance of separately billed services or time spent by another provider. Sandeep Garcia, Subjective 05/14/2024: Patient seen and examined in follow up today. Feeling somewhat better. Denies any chest pain, pressure, palpitations. Currently off Bipap and reports improvement in his breathing. Also notes decrease in leg swelling. compression stockings in place. Labs, vitals, diagnostics, telemetry and documentation reviewed. Telemetry reviewed showing A-fib rates typically 80's, some bradycardia overnight with rates in the low 50's. no high grade heart block or sinus pause. CT Chest 05/14/24: IMPRESSION: Multifocal bilateral airspace consolidations and opacities. Consolidations with air bronchograms involving the right middle lobe, superior segment of the left lower lobe, and bilateral lung bases. Additional patchy opacities involving all lung lobes. Findings suspicious for multifocal pneumonia. Imaging follow-up to resolution recommended. -1550cc fluid balance Review of Systems Review of Systems: All systems reviewed & are unremarkable except as noted in HPI & below Physical Exam Constitutional: + ill appearing and + obese; no acute di stress Neck: normal visual inspection and trachea midline Respiratory: normal respiratory effort, + cough (moist productive) and able to speak in complete sentences; no respiratory distress, no labored breathing and no retractions Auscultation: + crackles (right lower base), + rhonchi (throughout) and + wheezes (exp. wheezes bilateral upper lobes) Cardiovascular: Rate/Rhythm: regular rate and + irregularly irregular Heart Sounds: normal S1 and normal S2; no murmur Vessels: dorsalis pedis pulses present; no JVD Extremities: + edema (+2 BLE) Skin: + erythema (bilateral lower extremities ) Psychiatric: A+Ox3, euthymic affect Results & Data Vital Signs (Past 12 Hours) Vital Signs Temp Pulse Pulse Resp BP Pulse Ox Pulse Ox 05/14/24 07:24 36.5 C 63 20 137/77 95 05/14/24 07:19 66 23 94 05/14/24 07:00 05/14/24 03:04 93 05/14/24 03:00 63 22 93 05/14/24 03:00 36.7 C 59 L 20 148/76 H 93 05/14/24 00:23 69 24 95 05/14/24 00:00 94 05/13/24 23:15 65 24 96 05/13/24 23:00 66 05/13/24 22:17 36.7 C 65 22 132/65 96 O2 Del Method O2 Del Method O2 Flow Rate FiO2 05/14/24 07:24 Nasal Cannula 4 05/14/24 07:19 Nasal Cannula 5 05/14/24 07:00 Nasal Cannula, BiPAP 6 05/14/24 03:04 BiPAP 05/14/24 03:00 45 05/14/24 03:00 BiPAP 05/14/24 00:23 BiPAP 45 05/14/24 00:00 BiPAP 05/13/24 23:15 45 05/13/24 23:00 05/13/24 22:17 Nasal Cannula Laboratory Results Coagulation 05/14/24 Range/Units 06:29 PT 25.1 H (9.0-12.0) Seconds CBC 05/14/24 Range/Units 06:29 WBC 8.83 (4.8-10.8) K/ul RBC 3.41 L (4.70-6.10) M/uL Hgb 9.7 L (14.0-18.0) g/dl Hct 31.0 L (42.0-52.0) % Plt Count 301 (130-400) K/uL Neut # (Auto) 6.46 (1.40-6.50) K/uL Lymph # (Auto) 0.99 L (1.20-3.40) K/uL [place] # (Auto) 0.97 H (0.11-0.59) K/uL Eos # (Auto) 0.31 (0.00-0.50) K/uL Baso # (Auto) 0.04 (0.00-0.20) K/uL Comprehensive Metabolic Panel 05/14/24 Range/Units 06:29 Sodium 138 (136-145) mmol/L Potassium 4.7 (3.5-5.1) mmol/L Chloride 93 L (98-107) mmol/L Carbon Dioxide 39 H (21-32) mmol/L BUN 54 H (6-23) mg/dl Creatinine 1.05 (0.6-1.4) mg/dl Glucose 131 H (70-99(Fasting)) mg/dl Calcium 9.4 (8.6-10.3) mg/dl Intake and Output 05/14/24 05/14/24 05/14/24 06:59 14:59 22:59 Intake Total 200 / 460 530 / 530 Output Total 2049 Balance -50 / -1590 -870 / -870 Intake: IV 50 / 50 cefTRIAXone SODIUM 2,000 mg In 50 / 50 50 ml @ 100 mls/hr IV Q24H [facility] Rx#:[id number] Oral 200 / 410 480 / 480 Output: Urine Amount (Catheter) 2049 Barron/Indwelling 2049 Other: Weight 144.4 kg Weight Measurement Method Built in [facility]
--- NOTE | 2024-05-14 14:56 | Hospitalist Progress Note ---
Date of Service May 14, 2024 Assessment & Plan (1) Acute respiratory failure with hypoxia and hypercarbia: Plan: Acute on chronic hypoxic respiratory failure Acute on chronic diastolic heart failure Multifocal Pneumonia Possible COPD exacerbation Patient presented from home with desaturation of oxygen to 60%; BNP elevated to 305 Chest x-ray personally reviewed; shows multifocal airspace opacities ABG reviewed; pH of 7.37; pCO2 of 67 CT chest reveals multifocal bilateral airspace opacities and consolidation. Echocardiogram shows normal LV systolic function. Severe pulmonary hypertension. Diuresis with IV Lasix 40 mg 2 times daily. Daily weights, Strict input and output monitoring For pneumonia; placed on ceftriaxone and azithromycin, hypertonic saline nebs for airway clearance For COPD exacerbation; budesonide, formoterol nebs, steroids, and antibiotics BiPAP as needed and at night Elevated troponin, likely demand ischemia EKG on admission personally reviewed; atrial fibrillation with ventricular rate of 72 Echo as above Chronic conditions; Atrial fibrillationEKG as above, continue on Coumadin and Coreg Hypertensioncontinue Coreg, Imdur, spironolactone. Type 2 diabetes mellitussliding scale Hyperlipidemiacontinue Lipitor Chronic anemiahemoglobin at baseline CODE STATUS full code DVT prophylaxis Coumadin Time spent evaluating patient, direct bedside care, chart review, placing orders, interpretation of diagnostic studies, discussion with consultants, patient, and family members, as well as other required patient management activities is 50 minutes Please note the above document was generated using voice recognition software. It may contain grammatical, syntax or spelling errors. Any formal questions or concerns about the content, text or information contained within the body of this dictation should be directly addressed to the provider for clarification Admission and Anticipated Discharge Date Admission Date: May 13, 2024 Subjective Patient seen and examined at bedside. He reports that he is feeling slightly better compared to yesterday He has good urine output; oxygen requirement are stable Review of Systems Review of Systems: All systems reviewed & are unremarkable except as noted in Subjective Physical Exam Physical Exam: Constitutional: Alert oriented x 3 Respiratory: Bilateral crackles in b/l bases Cardiovascular: RRR, no murmur, no edema Vessels: no JVD or carotid bruit Chest: normal inspection of chest Abdomen: normal bowel sounds, soft, nontender, no hepatosplenomegaly Musculoskeletal: no cyanosis or clubbing, extremities motor strength 5/5. 1+ pitting edema Skin: no rashes, warm and dry normal turgor Neurologic: PERRL, EOMI, accommodation nl, no face palsy, no dysarthria CN's II- XI intact bilaterally and moves all extremities Psychiatric: A+Ox3, euthymic affect Results & Data Results & Data Vital Signs (Past 12 Hours) Vital Signs Temp Pulse Pulse Resp BP Pulse Ox Pulse Ox 05/14/24 13:21 67 21 95 05/14/24 11:18 36.5 C 62 25 H 119/68 95 05/14/24 08:00 95 05/14/24 07:24 36.5 C 63 20 137/77 95 05/14/24 07:19 66 23 94 05/14/24 07:00 05/14/24 06:00 66 05/14/24 03:04 93 05/14/24 03:00 63 22 93 05/14/24 03:00 36.7 C 59 L 20 148/76 H 93 O2 Del Method O2 Del Method O2 Flow Rate O2 Flow Rate FiO2 05/14/24 13:21 Nasal Cannula 5 05/14/24 11:18 Nasal Cannula 5 05/14/24 08:00 Nasal Cannula 6 05/14/24 07:24 Nasal Cannula 4 05/14/24 07:19 Nasal Cannula 5 05/14/24 07:00 Nasal Cannula, BiPAP 6 05/14/24 06:00 05/14/24 03:04 BiPAP 05/14/24 03:00 45 05/14/24 03:00 BiPAP
[2024-05-14] MEDS: WARFARIN SOD 5 MG TAB PO SCH (17:20)
--- NOTE | 2024-05-15 12:53 | XRay Report ---
XR chest 1V portable [place] CLINICAL HISTORY: Follow up on pulm infiltrates TECHNIQUE: Single frontal radiograph of the chest was obtained. Comparison: Comparison is made to chest radiograph 05/12/2024 FINDINGS: Exam is limited by underpenetration. Aortic valvular prosthesis is seen. There is prominence and ceph alization of the vasculature with Chloe B lines seen. Superimposed airspace opacities cannot be excl uded. No evidence of pleural effusion or pneumothorax. IMPRESSION: Overall similar appearance of pulmonary edema and/or aspiration/pneumonia. ACT 112: Negative or not required by law. Electronically signed by: Dex Freeman M.D. 05/15/2024 11:16 AM
[2024-05-15] MEDS: PIPER/TAZO 4.5g in D5W MINI-B 100 ML IV ONE (14:48)
--- NOTE | 2024-05-15 16:48 | Cardiology Progress Note ---
Date of Service May 15, 2024 Assessment & Plan (1) Acute respiratory failure with hypoxia and hypercarbia: (2) Acute on chronic heart failure with preserved ejection fraction: (3) Obesity hypoventilation syndrome: (4) Chronic a-fib: Plan Suspected superimposed aspiration pneumonitis Hold diuretic after this am's dose and reassess renal function an volume status tomorrow. Admission and Anticipated Discharge Date Admission Date: May 13, 2024 Subjective Patient with rate controlled atrial fibrillation in the 70s while awake, bradycardic down to the 40s during sleep. Ongoing high oxygen requirement. Lower extremity edema much improved. Patient with subjective generalized weakness. Physical Exam Constitutional: + ill appearing and + morbidly obese Respiratory: Auscultation: + diminished lung sounds; no rales Cardiovascular: Rate/Rhythm: + irregularly irregular Heart Sounds: no murmur Extremities: + edema (1+ lower extremity edema, knee-high SCDs in place) Neurologic: PERRL, EOMI, accommodation nl, no face palsy, no dysarthria Results & Data Vital Signs (Past 12 Hours) Vital Signs Temp Pulse Resp BP Pulse Ox Pulse Ox O2 Del Method 05/15/24 16:00 95 05/15/24 15:41 36.8 C 71 20 142/78 H 96 Nasal Cannula O2 Del Method O2 Flow Rate 05/15/24 16:00 Nasal Cannula 6 05/15/24 15:41
[2024-05-15 16:52] LABS: INR 3.2 (0.9-1.1); Prothrombin Time 31.5 Seconds (9.0-12.0)
[2024-05-15] MEDS: PIPER/TAZO 4.5g in D5W MINI-B 100 ML IV SCH (17:36)
[2024-05-15 17:43] LABS: Basophils # (auto) 0.04 K/uL (0.00-0.20); Basophils % (auto) 0.4 %; Eosinophils # (auto) 0.42 K/uL (0.00-0.50); Eosinophils % (auto) 4.3 %; Hematocrit (blood only) 32.4 % (42.0-52.0); Hemoglobin 10.2 g/dl (14.0-18.0); Immature Granulocytes # (auto) 0.18 K/uL (0.01-0.20); Immature Granulocytes % (auto) 1.8 %; Lymphocytes # (auto) 0.47 K/uL (1.20-3.40); Lymphocytes % (auto) 4.8 %; Mean Corpuscular Hemoglobin 28.3 pg (25.0-34.0); Mean Corpuscular Hgb Conc 31.5 g/dL (32.0-36.0); Mean Platelet Volume 8.7 fL (9.4-12.4); Monocytes # (auto) 0.67 K/uL (0.11-0.59); Monocytes % (auto) 6.9 %; Neutrophils # (auto) 7.98 K/uL (1.40-6.50); Neutrophils % (auto) 81.8 %; Platelet Count 322 K/uL (130-400); RDW Coefficient of Variation 15.1 % (11.5-14.5); RDW Standard Deviation 49.7 fL (36.4-46.3); White Blood Count 9.76 K/ul (4.8-10.8)
[2024-05-15 18:52] LABS: Allen Test Pos (Pos); HCO3 ABG 45 mmol/L (19-24); Oxygen Saturation ABG 97.2 % (90-95); PCO2 ABG 62 mmHg (35-46); PO2 ABG 77 mmHg (80-95); pH ABG 7.47 (7.35-7.45)
[2024-05-15 18:54] LABS: BUN Creatinine Ratio 58.2 (10-20); Calcium 9.6 mg/dl (8.6-10.3); Creatinine Clr Calc Pharmacy 123.3 ml/min; Est GFR (African American) 107.7 ml/min; Est GFR (Non-African American) 92.9 ml/min; Potassium 4.3 mmol/L (3.5-5.1)
[2024-05-16 08:38] LABS: BUN Creatinine Ratio 49.4 (10-20); Basophils # (auto) 0.04 K/uL (0.00-0.20); Basophils % (auto) 0.5 %; Calcium 9.3 mg/dl (8.6-10.3); Creatinine Clr Calc Pharmacy 113.3 ml/min; Eosinophils # (auto) 0.59 K/uL (0.00-0.50); Eosinophils % (auto) 7.2 %; Est GFR (African American) 104.5 ml/min; Est GFR (Non-African American) 90.2 ml/min; Hematocrit (blood only) 31.7 % (42.0-52.0); Hemoglobin 10.1 g/dl (14.0-18.0); Immature Granulocytes # (auto) 0.06 K/uL (0.01-0.20); Immature Granulocytes % (auto) 0.7 %; Lymphocytes # (auto) 0.97 K/uL (1.20-3.40); Lymphocytes % (auto) 11.8 %; Mean Corpuscular Hemoglobin 28.5 pg (25.0-34.0); Mean Corpuscular Hgb Conc 31.9 g/dL (32.0-36.0); Mean Corpuscular Volume 89.5 fL (80.0-100.0); Mean Platelet Volume 9.3 fL (9.4-12.4); Monocytes # (auto) 0.88 K/uL (0.11-0.59); Monocytes % (auto) 10.7 %; Neutrophils # (auto) 5.65 K/uL (1.40-6.50); Neutrophils % (auto) 69.1 %; Platelet Count 321 K/uL (130-400); Potassium 4.1 mmol/L (3.5-5.1); RDW Coefficient of Variation 14.8 % (11.5-14.5); RDW Standard Deviation 49.1 fL (36.4-46.3); Red Blood Count 3.54 M/uL (4.70-6.10); White Blood Count 8.19 K/ul (4.8-10.8)
[2024-05-16 08:43] LABS: INR 3.2 (0.9-1.1)
[2024-05-16] MEDS: TORSEMIDE 20 MG TAB PO SCH (11:02)
--- NOTE | 2024-05-16 12:22 | Pulmonology Progress Note ---
Date of Service May 16, 2024 Assessment & Plan (1) Acute respiratory failure with hypoxia and hypercarbia: Plan: Continue to wean oxygen as able. BiPAP as needed at night. Patient's hypoxia and hypercapnia due to OHS. See no role for prednisone at this time we will discontinue. No wheezing. Suspect hypercapnia due to OHS as noted above. D/C abx as procal negative 05/16/24. BNP remains mildly elevated. Echo 05/13/2024 with severe pulmonary hypertension noted. Pulmonary artery systolic pressure of 65 mmHg. (2) Pulmonary hypertension: Plan: Suspect pulmonary hypertension secondary to diastolic heart failure and OHS. Consider right heart catheterization to evaluate for precapillary pulm hypertension. Will discuss with cards. (3) Acute on chronic heart failure with preserved ejection fraction: Plan: Cardiology following diuresing as needed. Monitor bicarb closely. Will give a one-time dose of acetazolamide now. (4) O2 dependent: Plan: Wean as able as noted above. (5) Obesity hypoventilation syndrome: Plan: BiPAP as needed and sleeping. (6) Abnormal CT scan, chest: Plan: CT chest from 05/13 reviewed with multifocal opacities probably related to aspiration pneumonitis. Procal negative, will d/c abx. Obtain speech therapy consult. Admission and Anticipated Discharge Date Admission Date: May 13, 2024 Subjective Patient continues to have cough occasionally productive of white phlegm. Does have shortness of breath with activity, but improved compared to yesterday. Currently on 6 L oxygen. Patient notes that he is chronically on approximately 2 to 3 L of oxygen at home. Baseline ambulatory function is very poor and he walks around with a walker. He denies any chest pain, fevers or chills currently. Review of Systems Review of Systems: All systems reviewed & are unremarkable except as noted in HPI & below Physical Exam Physical Exam: Constitutional: Patient appears to be of their stated age. Morbidly obese. Eyes: Pupils are equal round and reactive to light. Conjunctivae are normal. Anicteric sclera. Ears nose, mouth and throat: Mallampati class 3. Normal posterior oropharynx. Uvula is midline. Neck: Trachea is midline. Visual inspection is normal. Respiratory: Diffusely diminished with coarse crackles. Cardiovascular: Regular rate and rhythm. No murmurs. No edema. Gastrointestinal: Normal bowel sounds, soft, nontender and nondistended. No hepatosplenomegaly noted. Musculoskeletal: No cyanosis. Patient is able to move all extremities. Strength is 5 out of 5 in the upper and lower extremities. Skin: No rashes, warm dry and intact. Neurologic: No obvious focal neurological deficits seen. Psychiatric: Alert and oriented x3 with a euthymic affect. Results & Data Results & Data Vital Signs (Past 12 Hours) Vital Signs Temp Pulse Pulse Resp BP BP Pulse Ox 05/16/24 12:14 36.9 C 77 22 127/75 90 05/16/24 10:10 59 L 22 95 05/16/24 09:30 05/16/24 08:13 37.1 C 62 19 117/62 94 05/16/24 07:20 54 L 24 95 05/16/24 07:18 58 L 22 95 05/16/24 07:00 41 L 05/16/24 03:43 55 L 25 H 96 05/16/24 03:15 36.8 C 55 L 20 150/89 H 96 05/16/24 01:40 05/16/24 00:41 60 27 H 96 Pulse Ox O2 Del Method O2 Del Method O2 Flow Rate FiO2 05/16/24 12:14 Nasal Cannula 6 05/16/24 10:10 45 05/16/24 09:30 BiPAP 6 45 05/16/24 08:13 Nasal Cannula 05/16/24 07:20 45 05/16/24 07:18 BiPAP 45 05/16/24 07:00 05/16/24 03:43 45 05/16/24 03:15 BiPAP 05/16/24 01:40 97 BiPAP 05/16/24 00:41 45 PG Care Time/CCT Total # of Minutes Spent Total Time Spent with Patient: Total time spent is greater than 50% in coordination of care (as documented) at patient's floor/unit and/or counseling patient: Coding Level of Care Code 83338 SUB INP/OBS CARE 3/50MIN Diagnoses Acute respiratory failure with hypoxia and hypercarbia J96.01; J96.02 Pulmonary hypertension I27.20 Acute on chronic heart failure with preserved ejection fraction I50.33 O2 dependent Z99.81 Obesity hypoventilation syndrome E66.[address] scan, chest R93.89
[2024-05-16] MEDS: acetaZOLAMIDE 500 MG in SYRINGE 0 ML IV STA (12:38)
--- NOTE | 2024-05-16 13:15 | Hospitalist Progress Note ---
Date of Service May 16, 2024 Assessment & Plan (1) Acute respiratory failure with hypoxia and hypercarbia: Plan: Acute on chronic hypoxic respiratory failure Acute on chronic diastolic heart failure Multifocal Pneumonia Possible COPD exacerbation Patient presented from home with desaturation of oxygen to 60%; BNP elevated to 305 Chest x-ray personally reviewed; shows multifocal airspace opacities ABG reviewed; pH of 7.37; pCO2 of 67 CT chest reveals multifocal bilateral airspace opacities and consolidation. Sputum culturenormal sam Echocardiogram shows normal LV systolic function. Severe pulmonary hypertension. Patient was initially diuresed with IV Lasix; switched over to torsemide which he takes at home. Strict input and output monitoring For pneumonia; placed on ceftriaxone and azithromycin initially; Switched over to Zosyn on May 15 after discussion with pulmonology. Continue hypertonic saline nebs for airway clearance For COPD exacerbation; budesonide, formoterol nebs, and antibiotics. Stop steroid as per pulmonology. BiPAP as needed and at night Elevated troponin, likely demand ischemia EKG on admission personally reviewed; atrial fibrillation with ventricular rate of 72 Echo as above Chronic conditions; Atrial fibrillationEKG as above, continue on Coumadin and Coreg Hypertensioncontinue Coreg, Imdur, spironolactone. Type 2 diabetes mellitussliding scale Hyperlipidemiacontinue Lipitor Chronic anemiahemoglobin at baseline CODE STATUS full code DVT prophylaxis Coumadin Time spent evaluating patient, direct bedside care, chart review, placing orders, interpretation of diagnostic studies, discussion with consultants, patient, and family members, as well as other required patient management activities is 50 minutes Please note the above document was generated using voice recognition software. It may contain grammatical, syntax or spelling errors. Any formal questions or concerns about the content, text or information contained within the body of this dictation should be directly addressed to the provider for clarification Admission and Anticipated Discharge Date Admission Date: May 13, 2024 Subjective Patient seen and examined at bedside. He reports that he is feeling slightly better compared to yesterday He is currently switched over to nasal cannula 6 L/min He is coughing of whitish phlegm Review of Systems Review of Systems: All systems reviewed & are unremarkable except as noted in Subjective Physical Exam Physical Exam: Constitutional: Alert oriented x 3 Respiratory: Bilateral crackles in b/l bases Cardiovascular: RRR, no murmur, no edema Vessels: no JVD or carotid bruit Chest: normal inspection of chest Abdomen: normal bowel sounds, soft, nontender, no hepatosplenomegaly Musculoskeletal: no cyanosis or clubbing, extremities motor strength 5/5. 1+ pitting edema Skin: no rashes, warm and dry normal turgor Neurologic: PERRL, EOMI, accommodation nl, no face palsy, no dysarthria CN's II- XI intact bilaterally and moves all extremities Psychiatric: A+Ox3, euthymic affect Results & Data Results & Data Vital Signs (Past 12 Hours) Vital Signs Temp Pulse Pulse Resp BP BP Pulse Ox 05/16/24 12:14 36.9 C 77 22 127/75 90 05/16/24 10:10 59 L 22 95 05/16/24 09:30 05/16/24 08:13 37.1 C 62 19 117/62 94 05/16/24 07:20 54 L 24 95 05/16/24 07:18 58 L 22 95 05/16/24 07:00 41 L 05/16/24 03:43 55 L 25 H 96 05/16/24 03:15 36.8 C 55 L 20 150/89 H 96 05/16/24 01:40 Pulse Ox O2 Del Method O2 Del Method O2 Flow Rate FiO2 05/16/24 12:14 Nasal Cannula 6 05/16/24 10:10 45 05/16/24 09:30 BiPAP 6 45 05/16/24 08:13 Nasal Cannula 05/16/24 07:20 45 05/16/24 07:18 BiPAP 45 05/16/24 07:00 05/16/24 03:43 45 05/16/24 03:15 BiPAP 05/16/24 01:40 97 BiPAP
--- NOTE | 2024-05-16 19:28 | Cardiology Progress Note ---
Date of Service May 16, 2024 Assessment & Plan (1) Acute respiratory failure with hypoxia and hypercarbia: (2) Acute on chronic heart failure with preserved ejection fraction: (3) Obesity hypoventilation syndrome: (4) Chronic a-fib: Plan Patient back on torsemide 40 mg by mouth daily. Continue carvedilol 3.125 mg twice daily Check Magnesium with am labs. Continue positive pressure ventilation with naps and at bedtime. Coumadin on hold for INR greater than 3 Admission and Anticipated Discharge Date Admission Date: May 13, 2024 Subjective Patient without acute complaints. Cough may be a little bit better. For the most part telemetry reveals rate controlled atrial fibrillation. There was however a 14 beat run of nonsustained ventricular tachycardia observed today 05/16/2024 at 12:29 PM without reported symptoms. Physical Exam Constitutional: + ill appearing and + morbidly obese Respiratory: Auscultation: + diminished lung sounds; no rales Cardiovascular: Rate/Rhythm: + irregularly irregular Heart Sounds: no murmur Extremities: + edema (1+ lower extremity edema, knee-high SCDs in place) Neurologic: PERRL, EOMI, accommodation nl, no face palsy, no dysarthria Results & Data Vital Signs (Past 12 Hours) Vital Signs Temp Pulse Pulse Resp BP Pulse Ox O2 Del Method 05/16/24 16:59 37.0 C 59 L 19 111/67 92 BiPAP 05/16/24 14:07 61 05/16/24 13:44 58 L 22 93 05/16/24 13:43 60 22 93 BiPAP 05/16/24 12:14 36.9 C 77 22 127/75 90 Nasal Cannula 05/16/24 10:10 59 L 22 95 05/16/24 09:30 BiPAP 05/16/24 08:13 37.1 C 62 19 117/62 94 Nasal Cannula 05/16/24 08:00 O2 Del Method O2 Flow Rate O2 Flow Rate FiO2 05/16/24 16:59 05/16/24 14:07 05/16/24 13:44 45 05/16/24 13:43 45 05/16/24 12:14 6 05/16/24 10:10 45 05/16/24 09:30 6 45 05/16/24 08:13 05/16/24 08:00 Nasal Cannula 6 Laboratory Results Cardiac Enzymes 05/16/24 Range/Units 12:26 B-Natriuretic Peptide 281 H (0-100) pg/ml Coagulation 05/16/24 05/16/24 Range/Units 07:12 12:26 PT 31.0 H (9.0-12.0) Seconds B-Natriuretic Peptide 281 H (0-100) pg/ml CBC 05/16/24 Range/Units 07:12 WBC 8.19 (4.8-10.8) K/ul RBC 3.54 L (4.70-6.10) M/uL Hgb 10.1 L (14.0-18.0) g/dl Hct 31.7 L (42.0-52.0) % Plt Count 321 (130-400) K/uL Neut # (Auto) 5.65 (1.40-6.50) K/uL Lymph # (Auto) 0.97 L (1.20-3.40) K/uL [place] # (Auto) 0.88 H (0.11-0.59) K/uL Eos # (Auto) 0.59 H (0.00-0.50) K/uL Baso # (Auto) 0.04 (0.00-0.20) K/uL Comprehensive Metabolic Panel 05/16/24 Range/Units 07:12 Sodium 138 (136-145) mmol/L Potassium 4.1 (3.5-5.1) mmol/L Chloride 91 L (98-107) mmol/L Carbon Dioxide 42 H* (21-32) mmol/L BUN 42 H (6-23) mg/dl Creatinine 0.85 (0.6-1.4) mg/dl Glucose 94 (70-99(Fasting)) mg/dl Calcium 9.3 (8.6-10.3) mg/dl Intake and Output 05/16/24 05/16/24 05/16/24 06:59 14:59 22:59 Intake Total 340 / 790 100 / 1100 1000 / 1100 Output Total 300 / 850 1150 / 1151 1 1151 Balance 40 / -60 -1050 / -51 999 / -51 Intake: IV 100 / 200 100 / 100 Piperacillin/Tazobactam 4.5 gm 100 / 200 100 / 100 In Dextrose 5% Mini-B 100 ml @ 25 mls/hr IV Q8H [facility] Rx#: [id number] Oral 240 / 590 1000 / 1000 Output: Urine Amount (Catheter) 300 / 850 1150 / 1150 [place]/Indwelling 300 / 850 1150 / 1150 # Bowel Movements Other: Weight 141.7 kg Weight Measurement Method Built in [facility]
[2024-05-17 07:24] LABS: Basophils # (auto) 0.03 K/uL (0.00-0.20); Basophils % (auto) 0.4 %; Eosinophils # (auto) 0.59 K/uL (0.00-0.50); Eosinophils % (auto) 7.4 %; Hematocrit (blood only) 31.5 % (42.0-52.0); Hemoglobin 10.1 g/dl (14.0-18.0); Immature Granulocytes % (auto) 1.3 %; Lymphocytes # (auto) 1.03 K/uL (1.20-3.40); Lymphocytes % (auto) 12.9 %; Mean Corpuscular Hemoglobin 28.5 pg (25.0-34.0); Mean Corpuscular Hgb Conc 32.1 g/dL (32.0-36.0); Mean Platelet Volume 9.1 fL (9.4-12.4); Monocytes # (auto) 0.91 K/uL (0.11-0.59); Monocytes % (auto) 11.4 %; Neutrophils % (auto) 66.6 %; Platelet Count 309 K/uL (130-400); RDW Coefficient of Variation 14.7 % (11.5-14.5); RDW Standard Deviation 47.5 fL (36.4-46.3); Red Blood Count 3.54 M/uL (4.70-6.10); White Blood Count 7.96 K/ul (4.8-10.8)
[2024-05-17 07:58] LABS: BUN Creatinine Ratio 52.4 (10-20); Calcium 9.6 mg/dl (8.6-10.3); Creatinine Clr Calc Pharmacy 116.3 ml/min; Est GFR (African American) 106.1 ml/min; Est GFR (Non-African American) 91.5 ml/min; Magnesium 2.2 mg/dl (1.7-2.4); Potassium 3.8 mmol/L (3.5-5.1)
--- NOTE | 2024-05-17 08:09 | Pulmonology Progress Note ---
Date of Service May 17, 2024 Assessment & Plan (1) Acute respiratory failure with hypoxia and hypercarbia: (2) Pulmonary hypertension: (3) Acute on chronic heart failure with preserved ejection fraction: (4) O2 dependent: Plan: Wean as able as noted above. (5) Obesity hypoventilation syndrome: (6) Abnormal CT scan, chest: Plan CT chest 05/13/2024 personally reviewed: Diffuse patchy opacities appreciated bilaterally upper and lower lobes Consolidative process in the right middle lobe as well as the right lower lobe Small bilateral pleural effusion Cardiomegaly No significant mediastinal lymphadenopathy Echo 05/13/2024: EF 55-60%, RV not well-visualized, severe pulmonary hypertension with PASP 65 mmHg. 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 Nasal MRSA negative Procalcitonin 0.05 BNP 281 --Pulmonary hypertension Likely combination of type II and type III Is type I playing a role is difficult to assess I think is reasonable to try to do right heart cath after the patient has been appropriately diuresed to see if there is a pre-capillary component to patient's hypertension --CRISTOFER/OHS On BiPAP at home Continue with BiPAP as needed and sleeping --A-fib On Coumadin Plan: In/out: -7.3 L since coming to the hospital Patient does seem to have multifocal alveolar opacities upper and lower lobes They are too dense to be considered only from pulmonary edema. Patient has got antibiotics on and off for maybe a day or 2. Will give him azithromycin for 5 days and complete the course QTc 387 Continue with diuretics BiPAP nightly and as needed shortness of breath Please note the above document was generated using voice recognition software. It may contain grammatical, syntax or spelling errors.Any formal questions or concerns about the content, text or information contained within the body of this dictation should be directly addressed to the provider for clarification. Admission and Anticipated Discharge Date Admission Date: May 13, 2024 Subjective Patient seen and examined at bedside. No acute distress, no events events overnight He was saturating 95 to 96% on 5 L nasal oxygen. Went down to 3 L. He says he is feeling better. Coughing up clear phlegm. Denies any headache Fair appetite. No difficulty swallowing right now. Has been urinating well. Review of Systems 2 Review of Systems: All systems reviewed & are unremarkable except as noted in Subjective Physical Exam 2 Physical Exam: Constitutional: No acute distress HEENT: EOMI, PERRLA Respiratory system: Decreased air entry bilaterally, no wheeze, no rhonchi, positive crackles bilaterally CVS: S1-S2 positive, no murmurs or gallops Abdomen: Soft, nontender, nondistended, positive bowel sounds x4, obese Extremities: +2 pulses bilaterally radialis/ dorsalis pedis, no cyanosis, minimal pitting edema bilateral lower extremity, positive varicosities Neuro: Awake alert oriented x3 Psych: Normal mood and affect G/U: Positive Barron Skin: no rashes, warm and dry Lymphatic: no cervical or axillary lymphadenopathy Results & Data Results & Data Vital Signs (Past 12 Hours) Vital Signs Temp Pulse Pulse Resp BP Pulse Ox O2 Del Method 05/17/24 07:55 36.9 C 53 L 21 115/75 93 BiPAP 05/17/24 07:16 64 20 94 Nasal Cannula 05/17/24 03:41 41 L 24 96 05/17/24 02:47 36.7 C 40 L 28 H 129/64 94 BiPAP 05/17/24 00:30 44 L 24 98 BiPAP 05/16/24 23:08 58 L 05/16/24 22:51 36.8 C 55 L 20 125/65 96 BiPAP 05/16/24 21:34 46 L 24 95 05/16/24 21:17 Nasal Cannula O2 Flow Rate FiO2 05/17/24 07:55 05/17/24 07:16 5 05/17/24 03:41 40 05/17/24 02:47 05/17/24 00:30 40 05/16/24 23:08 05/16/24 22:51 05/16/24 21:34 45 05/16/24 21:17 Laboratory Results 05/17/24 06:57 05/17/24 06:57 PG Care Time/CCT Total # of Minutes Spent Total Time Spent with Patient: Total time spent is greater than 50% in coordination of care (as documented) at patient's floor/unit and/or counseling patient: Coding Level of Care Code 36321 SUB INP/OBS CARE 3/50MIN Diagnoses Acute respiratory failure with hypoxia and hypercarbia J96.01; J96.02 Pulmonary hypertension I27.20 Acute on chronic heart failure with preserved ejection fraction I50.33 O2 dependent Z99.81 Obesity hypoventilation syndrome E66.[address] scan, chest R93.89
[2024-05-17 09:18] LABS: INR 2.1 (0.9-1.1); Prothrombin Time 21.8 Seconds (9.0-12.0)
[2024-05-17] MEDS: AZITHROMYCIN 500 MG in DEXTROSE 5% 250 ML IV SCH (12:40)
--- NOTE | 2024-05-17 13:13 | Hospitalist Progress Note ---
Date of Service May 17, 2024 Assessment & Plan (1) Acute respiratory failure with hypoxia and hypercarbia: Plan: Acute on chronic hypoxic respiratory failure Acute on chronic diastolic heart failure Multifocal Pneumonia Possible COPD exacerbation Patient presented from home with desaturation of oxygen to 60%; BNP elevated to 305 Chest x-ray personally reviewed; shows multifocal airspace opacities ABG reviewed; pH of 7.37; pCO2 of 67 CT chest reveals multifocal bilateral airspace opacities and consolidation. Sputum culturenormal sam Echocardiogram shows normal LV systolic function. Severe pulmonary hypertension. Patient was initially diuresed with IV Lasix; switched over to torsemide which he takes at home. Strict input and output monitoring For pneumonia; placed on ceftriaxone and azithromycin initially; Switched over to Zosyn on May 15 after discussion with pulmonology. Zosyn discontinued by pulmonology on May 16; started on azithromycin for 5 days from May 17 For COPD exacerbation; budesonide, formoterol nebs, and antibiotics. Stop steroid as per pulmonology. BiPAP as needed and at night Elevated troponin, likely demand ischemia EKG on admission personally reviewed; atrial fibrillation with ventricular rate of 72 Echo as above Chronic conditions; Atrial fibrillationEKG as above, continue on Coumadin and Coreg Hypertensioncontinue Coreg, Imdur, spironolactone. Type 2 diabetes mellitussliding scale Hyperlipidemiacontinue Lipitor Chronic anemiahemoglobin at baseline CODE STATUS full code DVT prophylaxis Coumadin Time spent evaluating patient, direct bedside care, chart review, placing orders, interpretation of diagnostic studies, discussion with consultants, patient, and family members, as well as other required patient management ac tivities is 50 minutes Please note the above document was generated using voice recognition software. It may contain grammatical, syntax or spelling errors. Any formal questions or concerns about the content, text or information contained within the body of this dictation should be directly addressed to the provider for clarification Admission and Anticipated Discharge Date Admission Date: May 13, 2024 Subjective Patient seen and examined at bedside. He is comfortable; not in distress. Reports that his shortness of breath has slightly improved compared to previous days No significant events overnight; saturating well at 5 L of oxygen Review of Systems Review of Systems: All systems reviewed & are unremarkable except as noted in Subjective Physical Exam Physical Exam: Constitutional: Alert oriented x 3 Respiratory: Bilateral crackles in b/l bases Cardiovascular: RRR, no murmur, no edema Vessels: no JVD or carotid bruit Chest: normal inspection of chest Abdomen: normal bowel sounds, soft, nontender, no hepatosplenomegaly Musculoskeletal: no cyanosis or clubbing, extremities motor strength 5/5. 1+ pitting edema Skin: no rashes, warm and dry normal turgor Neurologic: PERRL, EOMI, accommodation nl, no face palsy, no dysarthria CN's II- XI intact bilaterally and moves all extremities Psychiatric: A+Ox3, euthymic affect Results & Data Results & Data Vital Signs (Past 12 Hours) Vital Signs Temp Pulse Pulse Resp BP Pulse Ox O2 Del Method 05/17/24 12:06 80 18 89 L Nasal Cannula 05/17/24 12:00 36.8 C 84 22 144/74 H 90 Nasal Cannula 05/17/24 08:07 42 L 05/17/24 07:55 36.9 C 53 L 21 115/75 93 BiPAP 05/17/24 07:16 64 20 94 Nasal Cannula 05/17/24 03:41 41 L 24 96 05/17/24 02:47 36.7 C 40 L 28 H 129/64 94 BiPAP O2 Flow Rate FiO2 05/17/24 12:06 3 05/17/24 12:00 3 05/17/24 08:07 05/17/24 07:55 05/17/24 07:16 5 05/17/24 03:41 40 05/17/24 02:47
--- NOTE | 2024-05-17 15:20 | Cardiology Progress Note ---
Date of Service May 17, 2024 Assessment & Plan (1) Acute respiratory failure with hypoxia and hypercarbia: (2) Acute on chronic heart failure with preserved ejection fraction: (3) Obesity hypoventilation syndrome: (4) Chronic a-fib: Plan Patient back on torsemide 40 mg by mouth daily. Continue carvedilol 3.125 mg twice daily Check Magnesium with am labs. Azithromycin initiated by pulmonary on 05/17/2024, QT interval Normal. Continue positive pressure ventilation with naps and at bedtime. INR 2.1, resume Coumadin. Admission and Anticipated Discharge Date Admission Date: May 13, 2024 Subjective Patient seen in cardiology follow-up. Sitting in the bedside chair. Looks great, better than he has in the previous 4 days. Mentation slightly improved. Rate controlled atrial fibrillation noted on telemetry. Bradycardic during sleep with rates sustained in the 40s during sleep, however atrial fibrillation is 60s noted while awake in chair. No recurrent episodes of NSVT since 05/16/2024 at 12:29 PM. Physical Exam Constitutional: + ill appearing and + morbidly obese Respiratory: Auscultation: + diminished lung sounds; no rales Cardiovascular: Rate/Rhythm: + irregularly irregular Heart Sounds: no murmur Extremities: + edema (1+ lower extremity edema, knee-high SCDs in place) Neurologic: PERRL, EOMI, accommodation nl, no face palsy, no dysarthria Results & Data Vital Signs (Past 12 Hours) Vital Signs Temp Pulse Pulse Resp BP Pulse Ox O2 Del Method 05/17/24 15:11 57 L 05/17/24 12:06 80 18 89 L Nasal Cannula 05/17/24 12:00 36.8 C 84 22 144/74 H 90 Nasal Cannula 05/17/24 08:07 42 L 05/17/24 07:55 36.9 C 53 L 21 115/75 93 BiPAP 05/17/24 07:16 64 20 94 Nasal Cannula 05/17/24 03:41 41 L 24 96 O2 Flow Rate FiO2 05/17/24 15:11 05/17/24 12:06 3 05/17/24 12:00 3 05/17/24 08:07 05/17/24 07:55 05/17/24 07:16 5 05/17/24 03:41 40 Laboratory Results Coagulation 05/17/24 Range/Units 06:57 PT 21.8 H (9.0-12.0) Seconds INR 05/17/2024: 2.1 CBC 05/17/24 Range/Units 06:57 WBC 7.96 (4.8-10.8) K/ul RBC 3.54 L (4.70-6.10) M/uL Hgb 10.1 L (14.0-18.0) g/dl Hct 31.5 L (42.0-52.0) % Plt Count 309 (130-400) K/uL Neut # (Auto) 5.30 (1.40-6.50) K/uL Lymph # (Auto) 1.03 L (1.20-3.40) K/uL [place] # (Auto) 0.91 H (0.11-0.59) K/uL Eos # (Auto) 0.59 H (0.00-0.50) K/uL Baso # (Auto) 0.03 (0.00-0.20) K/uL Comprehensive Metabolic Panel 05/17/24 Range/Units 06:57 Sodium 138 (136-145) mmol/L Potassium 3.8 (3.5-5.1) mmol/L Chloride 95 L (98-107) mmol/L Carbon Dioxide 38 H (21-32) mmol/L BUN 43 H (6-23) mg/dl Creatinine 0.82 (0.6-1.4) mg/dl Glucose 102 H (70-99(Fasting)) mg/dl Calcium 9.6 (8.6-10.3) mg/dl Intake and Output 05/17/24 05/17/24 05/17/24 06:59 14:59 22:59 Intake Total 125 / 1275 Output Total 450 / 2951 Balance -325 / -1676 Intake: Oral 125 / 1175 Output: Urine Amount (Catheter) 450 / 2950 Barron/Indwelling 450 / 2950 Other: Weight 139.4 kg Weight Measurement Method Built in [facility]
[2024-05-18 06:14] LABS: Basophils # (auto) 0.09 K/uL (0.00-0.20); Eosinophils # (auto) 0.89 K/uL (0.00-0.50); Eosinophils % (auto) 10.1 %; Hematocrit (blood only) 32.3 % (42.0-52.0); Hemoglobin 10.4 g/dl (14.0-18.0); Immature Granulocytes % (auto) 1.1 %; Lymphocytes # (auto) 1.12 K/uL (1.20-3.40); Lymphocytes % (auto) 12.7 %; Mean Corpuscular Hemoglobin 28.5 pg (25.0-34.0); Mean Corpuscular Hgb Conc 32.2 g/dL (32.0-36.0); Mean Corpuscular Volume 88.5 fL (80.0-100.0); Mean Platelet Volume 9.1 fL (9.4-12.4); Monocytes # (auto) 0.86 K/uL (0.11-0.59); Monocytes % (auto) 9.8 %; Neutrophils # (auto) 5.76 K/uL (1.40-6.50); Neutrophils % (auto) 65.3 %; Nucleated RBC # (auto) 0.02 K/uL (0.00-0.12); Nucleated RBC % (auto) 0.2 %; Platelet Count 316 K/uL (130-400); RDW Coefficient of Variation 14.9 % (11.5-14.5); RDW Standard Deviation 48.3 fL (36.4-46.3); Red Blood Count 3.65 M/uL (4.70-6.10); White Blood Count 8.82 K/ul (4.8-10.8)
[2024-05-18 06:32] LABS: BUN Creatinine Ratio 58.2 (10-20); Calcium 9.5 mg/dl (8.6-10.3); Est GFR (African American) 107.7 ml/min; Est GFR (Non-African American) 92.9 ml/min; Potassium 3.7 mmol/L (3.5-5.1)
[2024-05-18 06:40] LABS: INR 1.6 (0.9-1.1); Prothrombin Time 16.8 Seconds (9.0-12.0)
--- NOTE | 2024-05-18 07:14 | Pulmonology Progress Note ---
Date of Service May 18, 2024 Assessment & Plan (1) Acute respiratory failure with hypoxia and hypercarbia: (2) Pulmonary hypertension: (3) Acute on chronic heart failure with preserved ejection fraction: (4) O2 dependent: (5) Obesity hypoventilation syndrome: (6) Abnormal CT scan, chest: Plan CT chest 05/13/2024 personally reviewed: Diffuse patchy opacities appreciated bilaterally upper and lower lobes Consolidative process in the right middle lobe as well as the right lower lobe Small bilateral pleural effusion Cardiomegaly No significant mediastinal lymphadenopathy Echo 05/13/2024: EF 55-60%, RV not well-visualized, severe pulmonary hypertension with PASP 65 mmHg. 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 Nasal MRSA negative Procalcitonin 0.05 BNP 281 --Pulmonary hypertension Likely combination of type II and type III Is type I playing a role is difficult to assess I think is reasonable to try to do right heart cath after the patient has been appropriately diuresed to see if there is a pre-capillary component to patient's hypertension --CRISTOFER/OHS On BiPAP at home Continue with BiPAP as needed and sleeping --A-fib On Coumadin Plan: In/out: -8 L since coming to the hospital Chest x-ray from today shows improvement in the opacities compared to before Complete 5-day course of azithromycin, QTc 387 Continue with diuretics BiPAP nightly and as needed shortness of breath Case was discussed with RN at bedside. No further recommendation from pulmonary perspective, will sign off Please call directly with any questions Please note the above document was generated using voice recognition software. It may contain grammatical, syntax or spelling errors.Any formal questions or concerns about the content, text or information contained within the body of this dictation should be directly addressed to the provider for clarification. Admission and Anticipated Discharge Date Admission Date: May 13, 2024 Subjective Patient seen and examined at bedside. No acute distress, no adverse events overnight. He was saturating 94-95% on 3 L nasal cannula. I went down to 2 L. Bringing up phlegm. No hemoptysis. No chest pain, shortness of breath is improved Denies any headache, no blurry vision Fair appetite Review of Systems 2 Review of Systems: All systems reviewed & are unremarkable except as noted in Subjective Physical Exam 2 Physical Exam: Constitutional: No acute distress HEENT: EOMI, PERRLA Respiratory system: Decreased air entry bilaterally, no wheeze, no rhonchi, positive crackles bilaterally CVS: S1-S2 positive, no murmurs or gallops Abdomen: Soft, nontender, nondistended, positive bowel sounds x4, obese Extremities: +2 pulses bilaterally radialis/ dorsalis pedis, no cyanosis, minimal pitting edema bilateral lower extremity, positive varicosities Neuro: Awake alert oriented x3 Psych: Normal mood and affect G/U: Positive Barron Skin: no rashes, warm and dry Lymphatic: no cervical or axillary lymphadenopathy Results & Data Results & Data Vital Signs (Past 12 Hours) Vital Signs Temp Pulse Pulse Resp BP Pulse Ox Pulse Ox 05/18/24 03:49 61 24 94 05/18/24 02:28 36.8 C 52 L 20 136/74 96 05/18/24 01:41 96 05/18/24 00:19 57 L 20 95 05/17/24 23:03 36.8 C 64 24 109/57 L 94 05/17/24 22:55 44 L 05/17/24 22:39 90 05/17/24 21:02 05/17/24 19:57 36.5 C 62 18 96/66 L 98 05/17/24 19:29 60 16 94 O2 Del Method O2 Flow Rate FiO2 05/18/24 03:49 35 05/18/24 02:28 BiPAP 05/18/24 01:41 05/18/24 00:19 Nasal Cannula 3 05/17/24 23:03 Nasal Cannula 3 05/17/24 22:55 05/17/24 22:39 Nasal Cannula 3 05/17/24 21:02 BiPAP 05/17/24 19:57 Nasal Cannula 2 05/17/24 19:29 Nasal Cannula 3 Laboratory Results 05/18/24 05:47 05/18/24 05:47 PG Care Time/CCT Total # of Minutes Spent Total Time Spent with Patient: Total time spent is greater than 50% in coordination of care (as documented) at patient's floor/unit and/or counseling patient: Coding Level of Care Code 57607 SUB INP/OBS CARE 2/35MIN Diagnoses Acute respiratory failure with hypoxia and hypercarbia J96.01; J96.02 Pulmonary hypertension I27.20 Acute on chronic heart failure with preserved ejection fraction I50.33 O2 dependent Z99.81 Obesity hypoventilation syndrome E66.[address] scan, chest R93.89
--- NOTE | 2024-05-18 08:26 | XRay Report ---
XR chest 1V portable HISTORY: Shortness of breath. f/u COMPARISON: Chest 05/15/2024. FINDINGS: No pneumothorax. No pleural effusions. The cardiac silhouette remains enlarged. Interval im provement in the interstitial thickening and bibasilar airspace opacities. No acute fractures. Degene rative changes within the shoulders. IMPRESSION: 1. Stable cardiomegaly. 2. Interval improvement in the interstitial thickening and bibasilar airspace opacities. ACT 112: Negative or not required by law. Electronically signed by: Daniele Kent M.D. 05/18/2024 8:24 AM
--- NOTE | 2024-05-18 10:22 | Cardiology Progress Note ---
Date of Service May 18, 2024 Assessment & Plan (1) Acute respiratory failure with hypoxia and hypercarbia: (2) Acute on chronic heart failure with preserved ejection fraction: (3) Obesity hypoventilation syndrome: (4) Chronic a-fib: Plan 05/17/24 Patient back on torsemide 40 mg by mouth daily. Continue carvedilol 3.125 mg twice daily Check Magnesium with am labs. Azithromycin initiated by pulmonary on 05/17/2024, QT interval Normal. Continue positive pressure ventilation with naps and at bedtime. INR 2.1, resume Coumadin. 05/18/24: Resumed oral diuretic yesterday at torsemide 40 mg daily. Good diuresis overnight - 2.9 L yesterday, and 2.2 L output today thus far. Resume spironolactone 12.5 mg daily - lower dose (prior home dose was 25 mg daily but borderline elevated potassium noted at 5.1 earlier this month) No concerns with nocturnal bradycardia, slow afib. No symptoms. No pauses. Continue low dose carvedilol 3.125 mg BID. Pulm following for multifocal right sided opacities. Resumed antibiotic therapy. Appreciate input. Continue Bipap with sleep and naps. INR 1.6. Warfarin dose increased to 15 mg daily. Patient wishes to go to rehab. Case management working on approvals. Stable cardiac symptoms. No further cardiac testing. On appropriate medical therapies. Will sign off. Please contact [employer] driver cardiology provider with additional questions and concerns. Case discussed with Dr. Patrick I spent a total of 35 minutes on the date of service in preparation, delivery, and documentation of the care provided to this patient, excluding any time spent in the performance of separately billed services. Bettina Brizuela PA-C Department of Cardiology, [facility] This chart was completed in part utilizing Speech Voice Recognition Software. Grammatical errors, random word insertions, pronoun errors, and incomplete sentences are an occasional consequence of this system due to software limitations, ambient noise, and hardware issues. Any formal questions or concerns about the content, text, or information contained within the body of this dictation should be directly addressed to the provider for clarification. Admission and Anticipated Discharge Date Admission Date: May 13, 2024 Supervising Physician Co-Signing Physician Notes Attending attestation: Case reviewed with the advanced practitioner. I have personally performed a history and physical examination on the patient. I have reviewed the advanced practitioner's documentation on the date of service referenced in note, and I agree with, and take responsibility for the plan of care. Subtherapeutic INR. Agree with titration of warfarin to 15 mg daily. Repeat INR in AM. Continue torsemide, spironolactone, carvedilol, isosorbide monohydrate, and atorvastatin. Positive pressure ventilation at bedtime and with naps. I spent a total of 25 minutes coordinating, documenting, and providing care for this patient excluding time spent in the performance of separately billed services or time spent by another provider. Hemanth Patrick DO, [facility] Subjective Patient resting in bed comfortably. Notes great improvement in his LE edema since admission. SOB improving. No chest pain. No dizziness, lightheadedness, palpitations. Nurse reports bradycardia during nighttime hours, during sleep. No symptoms. Lowest HR reported overnight was 38 bmp. No pauses. Review of Systems Review of Systems: All systems reviewed & are unremarkable except as noted in HPI & below Physical Exam Constitutional: + morbidly obese and + obese; no acute d istress Neck: normal visual inspection and trachea midline Respiratory: normal respiratory effort, + cough (moist productive) and able to speak in complete sentences Auscultation: + diminished lung sounds, + crackles (right lower base) and + rhonchi Cardiovascular: Rate/Rhythm: regular rate and + irregularly irregular Heart Sounds: normal S1 and normal S2; no murmur Vessels: dorsalis pedis pulses present; no JVD Extremities: + edema (1+ lower extremity edema, knee-high SCDs in place) Neurologic: PERRL, EOMI, accommodation nl, no face palsy, no dysarthria Psychiatric: A+Ox3, euthymic affect Results & Data Vital Signs (Past 12 Hours) Vital Signs Temp Pulse Pulse Resp BP Pulse Ox Pulse Ox 05/18/24 08:14 36.5 C 59 L 19 127/69 98 05/18/24 08:11 05/18/24 08:00 90 05/18/24 07:27 60 18 92 05/18/24 03:49 61 24 94 05/18/24 02:28 36.8 C 52 L 20 136/74 96 05/18/24 01:41 96 05/18/24 00:19 57 L 20 95 05/17/24 23:03 36.8 C 64 24 109/57 L 94 05/17/24 22:55 44 L 05/17/24 22:39 90 O2 Del Method O2 Del Method O2 Flow Rate FiO2 05/18/24 08:14 Nebulizer 05/18/24 08:11 Nasal Cannula 3 05/18/24 08:00 Nasal Cannula 05/18/24 07:27 Nasal Cannula 3 05/18/24 03:49 35 05/18/24 02:28 BiPAP 05/18/24 01:41 05/18/24 00:19 Nasal Cannula 3 05/17/24 23:03 Nasal Cannula 3 05/17/24 22:55 05/17/24 22:39 Nasal Cannula 3 Laboratory Results Coagulation 05/18/24 Range/Units 05:47 PT 16.8 H (9.0-12.0) Seconds CBC 05/18/24 Range/Units 05:47 WBC 8.82 (4.8-10.8) K/ul RBC 3.65 L (4.70-6.10) M/uL Hgb 10.4 L (14.0-18.0) g/dl Hct 32.3 L (42.0-52.0) % Plt Count 316 (130-400) K/uL Neut # (Auto) 5.76 (1.40-6.50) K/uL Lymph # (Auto) 1.12 L (1.20-3.40) K/uL [place] # (Auto) 0.86 H (0.11-0.59) K/uL Eos # (Auto) 0.89 H (0.00-0.50) K/uL Baso # (Auto) 0.09 (0.00-0.20) K/uL Comprehensive Metabolic Panel 05/18/24 Range/Units 05:47 Sodium 137 (136-145) mmol/L Potassium 3.7 (3.5-5.1) mmol/L Chloride 95 L (98-107) mmol/L Carbon Dioxide 35 H (21-32) mmol/L BUN 46 H (6-23) mg/dl Creatinine 0.79 (0.6-1.4) mg/dl Glucose 91 (70-99(Fasting)) mg/dl Calcium 9.5 (8.6-10.3) mg/dl Intake and Output 07/21/24 07/22/24 07/22/24 22:59 06:59 14:59 Intake Total 455 / 1415 Output Total 450 / 2201 700 / 2201 Balance 5 / -786 -700 / -786 Intake: IV 255 / 255 Azithromycin 500 mg In Dextrose 255 / 255 5% 250 ml @ 127.5 mls/hr IV Q24H [facility] Rx#:[id number] Oral 200 / 1160 Output: Urine Amount (Catheter) 450 / 2200 700 / 2200 Barron/Indwelling 450 / 2200 700 / 2200 Other: Weight 140 kg Weight Measurement Method Built in [facility] Diagnostic Findings Telemetry reviewed: Chronic afib. Rates ranging 50-80's during daytime. Dropping into the upper 30's-40's during sleep. No pauses or symptomatic bradycardia. Medications Administered Current Inpatient Medications Acetaminophen (Acetaminophen 325 Mg Tab) 650 mg PO QID PRN PRN Reason: pain/fever Stop: 06/12/24 01:20 Last Admin: 05/17/24 23:57 Dose: 650 mg Albuterol (Albut/Ipratrop 3mg/0.5mg Neb 3 Ml Vial) 3 ml NEB Q6R OMAYRA; Protocol Stop: 06/12/24 06:59 Last Admin: 05/18/24 07:27 Dose: Not Given Atorvastatin Calcium (Atorvastatin 40 Mg Tab) 80 mg PO QAM [facility] Stop: 06/12/24 08:59 Last Admin: 05/18/24 08:04 Dose: 80 mg Budesonide (Budesonide 0.5 Mg/2 Ml Vial (Pulmicort)) 0.5 mg NEB BIDR OMAYRA Stop: 06/12/24 13:44 Last Admin: 05/18/24 07:26 Dose: 0.5 mg Carvedilol (Carvedilol 3.125 Mg Tab) 3.125 mg PO BIDM OMAYRA Stop: 06/12/24 07:59 Last Admin: 05/18/24 08:04 Dose: 3.125 mg Dextrose (Dextrose 50% 50 Ml Syringe) 25 - 50 ml IV UD PRN; Protocol PRN Reason: Hypoglycemia Protocol Stop: 06/12/24 04:06 Fluticasone Furoate (Fluticasone Furoate 100mcg 14 Puffs/Inhaler) 1 puffs INH DAILY OMAYRA Stop: 06/12/24 08:59 Last Admin: 05/13/24 08:39 Dose: 1 puffs Fluticasone Propionate (Fluticasone Propionate Na Spr 16 Gm Btl) 2 sprays KRIS DAILY [facility] Stop: 06/12/24 08:59 Last Admin: 05/18/24 08:05 Dose: 2 sprays Formoterol Fumarate (Formoterol 20 Mcg/2 Ml Vial) 20 mcg NEB BIDR [facility] Stop: 06/12/24 13:44 Last Admin: 05/18/24 07:26 Dose: 20 mcg Glucagon (Glucagon For Inj 1 Mg Vial) 1 mg SQ UD PRN; Protocol PRN Reason: Hypoglycemia Protocol Stop: 06/12/24 04:06 Glucose (Glucose 40% Gel 15 Gm Tube) 15 - 30 gm PO UD PRN; Protocol PRN Reason: Hypoglycemia Protocol Stop: 06/12/24 04:06 Glucose (Glucose 10 Tab/Tube) 4 - 8 tab PO UD PRN; Protocol PRN Reason: Hypoglycemia Treatment Stop: 06/12/24 04:06 Guaifenesin (Guaifenesin 600 Mg Tabcr) 600 mg PO BID [facility] Stop: 06/12/24 08:59 Last Admin: 05/18/24 08:04 Dose: 600 mg Promethazine HCl 12.5 mg/ (Sodium Chloride) 50.5 mls @ 202 mls/hr IV Q6H PRN PRN Reason: Nausea And Vomiting Stop: 06/12/24 01:18 Azithromycin 500 mg/ Dextrose 255 mls @ 127.5 mls/hr IV Q24H [facility] Stop: 05/21/24 12:31 Last Infusion: 05/17/24 16:40 Dose: Infused Insulin Aspart (Insulin Aspart Per Unit Charge) 0 units SC ACHS [facility] Stop: 06/12/24 04:09 Last Admin: 05/18/24 08:08 Dose: 4 units Insulin Glargine (Lantus Per Unit Charge) 5 units SQ DAILY [facility] Stop: 06/12/24 04:19 Last Admin: 05/18/24 08:09 Dose: 5 units Isosorbide Mononitrate (Isosorbide [place] Extended Rel 60 Mg Tabcr) 60 mg PO QAM [facility] Stop: 06/12/24 08:59 Last Admin: 05/18/24 08:04 Dose: 60 mg Miscellaneous (Carbohydrates For Hypoglycemia ) 15 - 30 gm PO UD PRN PRN Reason: Hypoglycemia Protocol Stop: 06/12/24 04:06 Oxycodone HCl (Oxycodone Hcl Ir 5 Mg Tab (Immediate Release)) 5 mg PO Q4H PRN PRN Reason: Pain Stop: 05/27/24 01:18 Pantoprazole Sodium (Pantoprazole 40 Mg Tab) 40 mg PO DAILY [facility] Stop: 06/12/24 08:59 Last Admin: 05/18/24 08:05 Dose: 40 mg Sodium Chloride (Sodium Chlor 7% 4 Ml Neb) 4 ml NEB BIDR [facility] Stop: 06/12/24 13:44 Last Admin: 05/18/24 07:27 Dose: 4 ml Torsemide (Torsemide 20 Mg Tab) 40 mg PO QAM [facility] Stop: 06/15/24 09:59 Last Admin: 05/18/24 08:05 Dose: 40 mg Umeclidinium/Vilanterol (Umeclidinium/Vilanterol 62.5/25mcg 7 Puffs/Inhaler) 1 puffs INH DAILY [facility] Stop: 06/12/24 08:59 Last Admin: 05/13/24 08:44 Dose: 1 puffs Warfarin Sodium (Warfarin Sod 5 Mg Tab) 15 mg PO SuTuThSa@1630 [facility] Stop: 06/13/24 16:29 Last Admin: 05/17/24 17:06 Dose: 15 mg Warfarin Sodium (Warfarin Sod 7.5 Mg Tab) 15 mg PO DAILY@1600 [facility] Stop: 05/18/24 16:01
[2024-05-18] MEDS: SPIRONOLACTONE 12.5 MG TAB PO SCH (11:28)
[2024-05-18 12:07] LABS: Bilirubin,Total 0.4 mg/dl (0.2-1.0)
[2024-05-18 12:08] LABS: Albumin Globulin Ratio 0.9 (0.9-2); Albumin Level 3.4 gm/dl (3.4-5.0); Globulin 3.6 gm/dl (2.5-4.0)
--- NOTE | 2024-05-18 12:49 | Hospitalist Progress Note ---
Date of Service May 18, 2024 Assessment & Plan (1) Acute respiratory failure with hypoxia and hypercarbia: Plan: Acute on chronic hypoxic respiratory failure Acute on chronic diastolic heart failure Multifocal Pneumonia Possible COPD exacerbation Patient presented from home with desaturation of oxygen to 60%; on 2.5L of oxygen at home BNP elevated to 305 Chest x-ray on admission personally reviewed; shows multifocal airspace opacities ABG reviewed; pH of 7.37; pCO2 of 67 CT chest reveals multifocal bilateral airspace opacities and consolidation. Sputum culturenormal sam last CXR on 05/17 improvement in pulmonary vascular congestion Echocardiogram shows normal LV systolic function. Severe pulmonary hypertension. Patient was initially diuresed with IV Lasix; switched over to torsemide which he takes at home. Strict input and output monitoring For pneumonia; placed on ceftriaxone and azithromycin initially; Switched over to Zosyn on May 15 after discussion with pulmonology. Zosyn discontinued by pulmonology on May 16; started on azithromycin for 5 days from May 17 For COPD exacerbation; budesonide, formoterol nebs, and antibiotics. Stop steroid as per pulmonology. BiPAP as needed and at night Elevated troponin, likely demand ischemia EKG on admission personally reviewed; atrial fibrillation with ventricular rate of 72 Echo as above Chronic conditions; Atrial fibrillationEKG as above, continue on Coumadin and Coreg. Telemetry during the hospitalization show rates decreasing down to 30s; no pauses seen so far. Discussed with cardiology; no indication for pacemaker. Hypertensioncontinue Coreg, Imdur, spironolactone. Type 2 diabetes mellitussliding scale Hyperlipidemiacontinue Lipitor Chronic anemiahemoglobin at baseline CODE STATUS full code DVT prophylaxis Coumadin Time spent evaluating patient, direct bedside care, chart review, placing orders, interpretation of diagnostic studies, discussion with consultants, patient, and family members, as well as other required patient management activities is 50 minutes Please note the above document was generated using voice recognition software. It may contain grammatical, syntax or spelling errors. Any formal questions or concerns about the content, text or information contained within the body of this dictation should be directly addressed to the provider for clarification Admission and Anticipated Discharge Date Admission Date: May 13, 2024 Subjective Seen and examined at bedside. He reports that he is feeling much better compared to previous days Oxygen requirement has improved; patient is at baseline oxygen requirement Review of Systems Review of Systems: All systems reviewed & are unremarkable except as noted in Subjective Physical Exam Physical Exam: Constitutional: Alert oriented x 3 Respiratory: Bilateral crackles in b/l bases; slightly improved Cardiovascular: RRR, no murmur, no edema Vessels: no JVD or carotid bruit Chest: normal inspection of chest Abdomen: normal bowel sounds, soft, nontender, no hepatosplenomegaly Musculoskeletal: no cyanosis or clubbing, extremities motor strength 5/5. 1+ pitting edema Skin: no rashes, warm and dry normal turgor Neurologic: PERRL, EOMI, accommodation nl, no face palsy, no dysarthria CN's II- XI intact bilaterally and moves all extremities Psychiatric: A+Ox3, euthymic affect Results & Data Results & Data Vital Signs (Past 12 Hours) Vital Signs Temp Pulse Pulse Resp BP Pulse Ox Pulse Ox 05/18/24 11:46 36.6 C 92 H 23 112/63 90 05/18/24 08:14 36.5 C 59 L 19 127/69 98 05/18/24 08:11 05/18/24 08:00 90 05/18/24 07:27 60 18 92 05/18/24 03:49 61 24 94 05/18/24 02:28 36.8 C 52 L 20 136/74 96 05/18/24 01:41 96 O2 Del Method O2 Del Method O2 Flow Rate FiO2 05/18/24 11:46 Nasal Cannula 2 05/18/24 08:14 Nebulizer 05/18/24 08:11 Nasal Cannula 3 05/18/24 08:00 Nasal Cannula 05/18/24 07:27 Nasal Cannula 3 05/18/24 03:49 35 05/18/24 02:28 BiPAP 05/18/24 01:41
[2024-05-18] MEDS: WARFARIN SOD 7.5 MG TAB PO SCH (17:08)
[2024-05-19 06:35] LABS: Basophils # (auto) 0.08 K/uL (0.00-0.20); Basophils % (auto) 0.9 %; Eosinophils # (auto) 0.82 K/uL (0.00-0.50); Eosinophils % (auto) 9.4 %; Hematocrit (blood only) 34.8 % (42.0-52.0); Immature Granulocytes # (auto) 0.18 K/uL (0.01-0.20); Immature Granulocytes % (auto) 2.1 %; Lymphocytes # (auto) 0.97 K/uL (1.20-3.40); Lymphocytes % (auto) 11.1 %; Mean Corpuscular Hemoglobin 27.9 pg (25.0-34.0); Mean Corpuscular Hgb Conc 31.6 g/dL (32.0-36.0); Mean Corpuscular Volume 88.3 fL (80.0-100.0); Mean Platelet Volume 9.3 fL (9.4-12.4); Monocytes # (auto) 0.88 K/uL (0.11-0.59); Monocytes % (auto) 10.1 %; Neutrophils # (auto) 5.82 K/uL (1.40-6.50); Neutrophils % (auto) 66.4 %; Nucleated RBC # (auto) 0.02 K/uL (0.00-0.12); Nucleated RBC % (auto) 0.2 %; Platelet Count 332 K/uL (130-400); RDW Coefficient of Variation 14.8 % (11.5-14.5); RDW Standard Deviation 47.4 fL (36.4-46.3); Red Blood Count 3.94 M/uL (4.70-6.10); White Blood Count 8.75 K/ul (4.8-10.8)
[2024-05-19 06:54] LABS: BUN Creatinine Ratio 52.7 (10-20); Calcium 9.4 mg/dl (8.6-10.3); Creatinine Clr Calc Pharmacy 101.5 ml/min; Est GFR (African American) 98.1 ml/min; Est GFR (Non-African American) 84.6 ml/min; Potassium 3.7 mmol/L (3.5-5.1)
[2024-05-19 07:22] LABS: INR 1.5 (0.9-1.1); Prothrombin Time 15.8 Seconds (9.0-12.0)
--- NOTE | 2024-05-19 07:39 | Pulmonology Progress Note ---
Date of Service May 19, 2024 Assessment & Plan (1) Acute respiratory failure with hypoxia and hypercarbia: (2) Pulmonary hypertension: (3) Acute on chronic heart failure with preserved ejection fraction: (4) O2 dependent: (5) Obesity hypoventilation syndrome: (6) Abnormal CT scan, chest: Plan CT chest 05/13/2024 personally reviewed: Diffuse patchy opacities appreciated bilaterally upper and lower lobes Consolidative process in the right middle lobe as well as the right lower lobe Small bilateral pleural effusion Cardiomegaly No significant mediastinal lymphadenopathy Echo 05/13/2024: EF 55-60%, RV not well-visualized, severe pulmonary hypertension with PASP 65 mmHg. 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 Nasal MRSA negative Procalcitonin 0.05 BNP 281 --Pulmonary hypertension Likely combination of type II and type III Is type I playing a role is difficult to assess I think is reasonable to try to do right heart cath after the patient has been appropriately diuresed to see if there is a pre-capillary component to patient's hypertension --CRISTOFER/OHS On BiPAP at home Continue with BiPAP as needed and sleeping --A-fib On Coumadin Plan: In/out: -9 L since coming to the hospital Complete 5-day course of azithromycin, QTc 387 Continue with diuretics BiPAP nightly and as needed shortness of breath Case was discussed with RN at bedside. No further recommendation from pulmonary perspective, will sign off Please call directly with any questions Please note the above document was generated using voice recognition software. It may contain grammatical, syntax or spelling errors.Any formal questions or concerns about the content, text or information contained within the body of this dictation should be directly addressed to the provider for clarification. Admission and Anticipated Discharge Date Admission Date: May 13, 2024 Subjective Patient seen and examined at bedside. No acute distress, no events overnight He was saturating 91% on 2 L nasal cannula at rest Overall he said he is feeling better. Still coughing up clear to yellow phlegm. No hemoptysis Has been using BiPAP overnight Fair appetite No headache, no blurry vision No nausea or vomiting Review of Systems 2 Review of Systems: All systems reviewed & are unremarkable except as noted in Subjective Physical Exam 2 Physical Exam: Constitutional: No acute distress HEENT: EOMI, PERRLA Respiratory system: Decreased air entry bilaterally, no wheeze, no rhonchi, positive crackles bilaterally CVS: S1-S2 positive, no murmurs or gallops Abdomen: Soft, nontender, nondistended, positive bowel sounds x4, obese Extremities: +2 pulses bilaterally radialis/ dorsalis pedis, no cyanosis, minimal pitting edema bilateral lower extremity, positive varicosities Neuro: Awake alert oriented x3 Psych: Normal mood and affect G/U: Positive Barron Skin: no rashes, warm and dry Lymphatic: no cervical or axillary lymphadenopathy Results & Data Results & Data Vital Signs (Past 12 Hours) Vital Signs Temp Pulse Pulse Resp BP Pulse Ox O2 Del Method 05/19/24 07:08 76 18 91 Nasal Cannula 05/19/24 03:24 60 25 H 96 05/19/24 03:22 36.8 C 69 20 143/82 H 96 BiPAP 05/19/24 00:27 67 24 96 BiPAP 05/18/24 23:08 63 24 96 05/18/24 22:40 36.9 C 78 18 140/69 92 CPAP 05/18/24 20:00 Nasal Cannula O2 Flow Rate FiO2 05/19/24 07:08 2 05/19/24 03:24 35 05/19/24 03:22 05/19/24 00:27 35 05/18/24 23:08 35 05/18/24 22:40 05/18/24 20:00 2 Laboratory Results 05/19/24 06:00 05/19/24 06:00 PG Care Time/CCT Total # of Minutes Spent Total Time Spent with Patient: Total time spent is greater than 50% in coordination of care (as documented) at patient's floor/unit and/or counseling patient: Coding Level of Care Code 27649 SUB INP/OBS CARE 2/35MIN Diagnoses Acute respiratory failure with hypoxia and hypercarbia J96.01; J96.02 Pulmonary hypertension I27.20 Acute on chronic heart failure with preserved ejection fraction I50.33 O2 dependent Z99.81 Obesity hypoventilation syndrome E66.[address] scan, chest R93.89
--- NOTE | 2024-05-19 08:47 | Hospitalist Progress Note ---
Date of Service May 19, 2024 Assessment & Plan (1) Acute respiratory failure with hypoxia and hypercarbia: Plan: Acute on chronic hypoxic respiratory failure Acute on chronic diastolic heart failure Multifocal Pneumonia Possible COPD exacerbation Patient presented from home with desaturation of oxygen to 60%; on 2.5L of oxygen at home BNP elevated to 305 Chest x-ray on admission personally reviewed; shows multifocal airspace opacities ABG reviewed; pH of 7.37; pCO2 of 67 CT chest reveals multifocal bilateral airspace opacities and consolidation. Sputum culturenormal sam last CXR on 05/17 improvement in pulmonary vascular congestion Echocardiogram shows normal LV systolic function. Severe pulmonary hypertension. Patient was initially diuresed with IV Lasix; switched over to torsemide which he takes at home. Strict input and output monitoring For pneumonia; placed on ceftriaxone and azithromycin initially; Switched over to Zosyn on May 15 after discussion with pulmonology. Zosyn discontinued by pulmonology on May 16; started on azithromycin for 5 days from May 17 For COPD exacerbation; budesonide, formoterol nebs, and antibiotics. Stopped steroids as per pulmonology. BiPAP as needed and at night Remove Barron Elevated troponin, likely demand ischemia EKG on admission personally reviewed; atrial fibrillation with ventricular rate of 72 Echo as above Chronic conditions; Atrial fibrillationEKG as above, continue on Coumadin and Coreg. Telemetry during the hospitalization show rates decreasing down to 30s; no pauses seen so far. Discussed with cardiology; no indication for pacemaker. Coumadin dose increased to 15mg daily for now due to subtherapeutic INR, INR daily inpatient. Hypertensioncontinue Coreg, Imdur, spironolactone. Aldactone dose decreased to 12.5 as per cardiology Type 2 diabetes mellitussliding scale Hyperlipidemiacontinue Lipitor Chronic anemiahemoglobin at baseline CODE STATUS full code DVT prophylaxis Coumadin Time spent evaluating patient, direct bedside care, chart review, placing orders, interpretation of diagnostic studies, discussion with consultants, patient, and family members, as well as other required patient management activities is 50 minutes Please note the above document was generated using voice recognition software. It may contain grammatical, syntax or spelling errors. Any formal questions or concerns about the content, text or information contained within the body of this dictation should be directly addressed to the provider for clarification Admission and Anticipated Discharge Date Admission Date: May 13, 2024 Subjective Seen and examined at bedside. Patient is at baseline oxygen requirement. Reports feeling better overall Review of Systems Review of Systems: All systems reviewed & are unremarkable except as noted in Subjective Physical Exam Physical Exam: Constitutional: Alert oriented x 3 Respiratory: b/l basilar crackles Cardiovascular: RRR, no murmur, no edema Vessels: no JVD or carotid bruit Chest: normal inspection of chest Abdomen: normal bowel sounds, soft, nontender, no hepatosplenomegaly Musculoskeletal: no cyanosis or clubbing, extremities motor strength 5/5. 1+ pitting edema Skin: no rashes, warm and dry normal turgor Neurologic: PERRL, EOMI, accommodation nl, no face palsy, no dysarthria CN's II- XI intact bilaterally and moves all extremities Psychiatric: A+Ox3, euthymic affect Results & Data Results & Data Vital Signs (Past 12 Hours) Vital Signs Temp Pulse Pulse Resp BP Pulse Ox O2 Del Method 05/19/24 08:11 36.5 C 72 18 140/73 95 Nasal Cannula 05/19/24 08:03 Nasal Cannula 05/19/24 07:08 76 18 91 Nasal Cannula 05/19/24 03:24 60 25 H 96 05/19/24 03:22 36.8 C 69 20 143/82 H 96 BiPAP 05/19/24 00:27 67 24 96 BiPAP 05/18/24 23:08 63 24 96 05/18/24 22:40 36.9 C 78 18 140/69 92 CPAP O2 Flow Rate FiO2 05/19/24 08:11 2 05/19/24 08:03 2 05/19/24 07:08 2 05/19/24 03:24 35 05/19/24 03:22 05/19/24 00:27 35 05/18/24 23:08 35 05/18/24 22:40
--- NOTE | 2024-05-19 12:39 | Discharge Summary ---
Date of Service May 19, 2024 Admission HPI Per Admitting Provider History obtained from patient and records. Medical history significant for chronic diastolic heart failure (EF 50-55% TTE 2022), A-fib/history DVT on Coumadin, valvular heart disease (moderate TR/mild MR), hypertension, hyperlipidemia, chronic respiratory failure secondary to pulmonary hypertension, COPD, OHS on BiPAP, DM2 diet-controlled, chronic anemia (baseline hemoglobin 9-10), skin cancer as per records, past tobacco abuse. Last confinement May 2023 for respiratory failure secondary to CHF. 2 weeks history of junky cough symptoms. Possible sick contacts at home. Cough symptoms noted during water/food intake. Denies chest pain. Usual leg swelling. Not sure about fluid retention. Achy headache symptoms from coughing. O2 sats noted to be 60s at home. Patient with transient confusion. Patient brought to ER for evaluation. Torsemide and neb treatment administered at the ER. 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 Admission Exam Per Admitting Provider GENERAL: uncomfortable, slightly anxious, morbidly obese, respiratory distress SKIN: Pallor, warm HEENT: Alopecia, pale palpebral conjunctivae, no ptosis, dry buccal mucosa, BiPAP in place NECK : Supple, short neck, no tenderness CHEST : Decreased breath sounds, expiratory wheezes, no tenderness HEART : Irregular, no obvious murmurs ABDOMEN: Some distention, nontender EXTREMITIES : Bilateral LE swelling (chronic RLE induration as per patient) with minimal RLE tenderness, no other conspicuous deformities noted NEUROLOGIC : Coherent, no facial asymmetry, slightly hard of hearing, no other gross focality Principal Diagnosis Acute on chronic hypoxic respiratory failure Acute on chronic diastolic heart failure Multifocal Pneumonia Possible COPD exacerbation Discharge Exam Constitutional: Alert oriented x 3 Respiratory: b/l basilar crackles; improved from previous days Cardiovascular: RRR, no murmur, no edema Vessels: no JVD or carotid bruit Chest: normal inspection of chest Abdomen: normal bowel sounds, soft, nontender, no hepatosplenomegaly Musculoskeletal: no cyanosis or clubbing, extremities motor strength 5/5. 1+ pitting edema Skin: no rashes, warm and dry normal turgor Neurologic: PERRL, EOMI, accommodation nl, no face palsy, no dysarthria CN's II- XI intact bilaterally and moves all extremities Psychiatric: A+Ox3, euthymic affect Discharge Data Allergies Allergy/AdvReac Type Severity Reaction Status Date / Time No Known Allergies Allergy Verified 05/12/24 23:12 Consultations 05/13/24 13:07 Consult Cardiology Routine 05/16/24 08:00 Consult Pulmonology Routine Ordered Studies 05/13/24 00:52 CT chest diagnostic wo con Stat CT head/brain wo con Stat Hospital Course (1) Acute respiratory failure with hypoxia and hypercarbia: Acute on chronic hypoxic respiratory failure Acute on chronic diastolic heart failure Multifocal Pneumonia Possible COPD exacerbation Patient presented from home with desaturation of oxygen to 60%; on 2.5L of oxygen at home BNP elevated to 305 Chest x-ray on admission personally reviewed; shows multifocal airspace opacities ABG reviewed; pH of 7.37; pCO2 of 67 CT chest reveals multifocal bilateral airspace opacities and consolidation. Sputum culturenormal sam last CXR on 05/17 improvement in pulmonary vascular congestion Echocardiogram shows normal LV systolic function. Severe pulmonary hypertension. Patient was initially diuresed with IV Lasix; switched over to torsemide which he takes at home. Strict input and output monitoring For pneumonia; placed on ceftriaxone and azithromycin initially; Switched over to Zosyn on May 15 after discussion with pulmonology. Zosyn discontinued by pulmonology on May 16; started on azithromycin again; completed 5 day course. At the time of the discharge, patient was saturating well at his baseline oxygen requirement of 2 L/min. He was discharged to acute rehab; he will continue breathing treatment and urea clearance therapy with hypertonic saline at the rehab. He was discharged with a Barron catheter with the goal to do trial of void 1 day after discharge in the rehab. Chronic conditions; Atrial fibrillationEKG as above, continue on Coumadin and Coreg. Telemetry during the hospitalization show rates decreasing down to 30s; no pauses seen so far. Discussed with cardiology; no indication for pacemaker. Conitnue coumadin, repeat PT/INR in 2 days. Hypertensioncontinue Coreg, Imdur, spironolactone. Aldactone dose decreased to 12.5mg as per cardiology Type 2 diabetes mellitussliding scale Hyperlipidemiacontinue Lipitor Chronic anemiahemoglobin at baseline Please note the above document was generated using voice recognition software. It may contain grammatical, syntax or spelling errors. Any formal questions or concerns about the content, text or information contained within the body of this dictation should be directly addressed to the provider for clarification Total Time Total Time Spent Total Time Spent (In Minutes): 45 Total Time Includes: Examination of the Patient, Discharge Planning, Medication Reconciliation, Communication With Other Providers and Other Discharge Plan Discharge Items Patient Disposition: Transfer Inpatient Rehab Fac Reason For Visit: RESP FAILURE Discharge Diagnosis: Acute on chronic hypoxic respiratory failure Acute on chronic diastolic heart failure Multifocal Pneumonia Possible COPD exacerbation Activity: Resume your previous activity Non-emergency contact: Primary Care Provider Call non-emergency contact if: you have any medication questions and your symptoms worsen Follow-up/Referrals: Charley Crane MD [Primary Care Provider] - Diet: Regular Addtl Attending Provider Instructions: You were admitted to the hospital due to heart failure and multifocal pneumonia. You were evaluated by cardiology and pulmonology during the hospitalization. Please continue breathing treatment with DuoNeb every 6 hours for next 5 days along with hypertonic saline twice a day. Please use BiPAP at night. Please remove Barron and do trial of void on May 20, 2024( tomorrow) Pending Studies at Discharge: No Stand-Alone Forms: My [facility] Skilled Items Patient informed of condition?: Yes DNR: No Discharge Level of Care: Acute rehab Communicable Disease: No Discharge Prognosis: Stable Lines: None Urinary Catheter: Yes Medications and DC Order Prescriptions: New spironolactone 25 mg Tablet 12.5 mg PO DAILY Qty: 30 0RF sodium chloride 7 % Solution For Nebulization 4 ml NEB BIDR Qty: 120 0RF Continued enalapril maleate 10 mg Tablet 10 mg PO DAILY warfarin 10 mg Tablet See Rx Instructions .ROUTE .COMPLEX Rx Instructions: TAKES 10 MG ON MON, WED, & FRI EVENINGS, THEN 15 MG ON SUN, , THURS, & SAT EVENINGS. potassium chloride 10 mEq Tablet Extended Release 10 meq PO Q OTHER DAY isosorbide mononitrate 60 mg Tablet Extended Release 24 Hr 60 mg PO QAM pantoprazole 40 mg Tablet,Delayed Release (Dr/Ec) 40 mg PO DAILY Centrum Silver Men [id number] mcg Tablet 1 tab PO DAILY empagliflozin 10 mg Tablet 10 mg PO QAM Trelegy Ellipta 100-62.5-25 mcg Blister With Device 1 inh INHALATION DAILY carvedilol 3.125 mg Tablet 3.125 mg PO BIDM Qty: 60 0RF atorvastatin 80 mg tablet 80 mg PO QAM torsemide 20 mg tablet 40 mg PO QAM prednisone 20 mg Tablet 40 mg PO DAILY PRN (Reason: COPD RESCUE KIT) Rx Instructions: TAKE FOR 5 DAYS. albuterol sulfate 90 mcg/actuation Hfa Aerosol Inhaler 2 puff INHALATION Q6H PRN (Reason: Shortness Of Breath Or Wheezing) ketoconazole 2 % cream 1 applic TOPICAL DIRECTED PRN (Reason: DRY SKIN PATCHES) fluticasone propionate [Flonase] 50 mcg/actuation Marks,Suspension 2 spray INTRANASAL DAILY Rx Instructions: administer into each nostril guaifenesin [Mucinex] 600 mg Tablet Extended Release 12hr 600 mg PO BID Changed ipratropium-albuterol 0.5 mg-3 mg(2.5 mg base)/3 mL solution for nebulization 3 ml INHALATION Q6H Qty: 0 0RF Discontinued spironolactone 25 mg Tablet 25 mg PO QAM Qty: 30 0RF doxycycline hyclate 100 mg capsule 100 mg PO BID Rx Instructions: STARTED 05/05/24 FOR 10 DAYS doxycycline hyclate 100 mg Capsule 100 mg PO BID PRN (Reason: COPD RESCUE KIT) cephalexin 500 mg capsule 500 mg PO BID Rx Instructions: STARTED 05/05/24 FOR 10 DAYS Discharge Orders: Discharge Order (Routine); Ordered 05/19/24 Ordered By: Ricardo Viera Admission Data Admit Date/Time: 05/13/24 00:50 Attending Provider: Ricardo Viera Admit Provider: Dread Mcguire Primary Care Provider: Charley Crane Other Providers: Irina Mckeon; Sandeep Garcia; David Reid; Hemanth Patrick; Reggie Ceja; Jarad Daigle; Bettina Brizuela; Christina Barreto; Alexia Natarajan; Irina Pantoja; Eladio Rosales; Fabiano Reyes; Connie Penaloza; Bushra Jackson; Nanda Springer; Mak Ag; Tiago Torres; Belinda Mcnulty; [facility]; [facility] [place]; [place]; Kalyan Merida
[2024-05-19] MEDS: WARFARIN SOD 7.5 MG TAB PO SCH (17:16)
== END 2024-05-19 17:19 | DRG 193 ==
LOC: ED 20:40 → 2E 05-13 00:50

== ENCOUNTER 2024-07-20 14:18 | Inpatient (IN) ==
--- NOTE | 2024-07-20 14:30 | Emergency Department Note ---
Impression & Plan Hypoxia ADMIT ED Provider Note HPI: History obtained from patient. The patient is a 68-year-old gentleman with history of morbid obesity, hypoventilation syndrome, congestive heart failure, COPD on 2 L nasal cannula oxygen at home at baseline, type 2 diabetes, atrial fibrillation on Coumadin, presents the emergency department today with chief complaint shortness of breath that is been worsening since earlier this morning. EMS was contacted and per report patient was saturating at 85% on his baseline nasal cannula oxygen at home. Oxygen was turned up to 5 L with good improvement. On arrival here to the ED the patient denies any chest pain but states he does feel short of breath. Patient does display some mild increased work of breathing on my initial assessment, he is otherwise alert on arrival. ROS: - Per HPI Differential Diagnosis: Acute CHF exacerbation, COPD exacerbation, pneumonia, viral upper respiratory infection with dyspnea, acute coronary syndrome, pulmonary embolism, amongst other potential pathologies. *Outpatient medications and allergy history reviewed. PE: General: Alert, morbidly obese HEENT: Normocephalic, trachea midline Eyes: Extraocular eye movement is intact, no scleral erythema Pulmonary: Diminished bilateral breath sounds without any obvious wheezing Cardio: Regular rate and irregular rhythm GI: Abdomen is soft to palpation : No suprapubic tenderness MSK: No evidence of trauma or malformation of the extremities, no edema Skin: No evidence of rash Neuro: Alert, no focal deficits Psychiatric: Cooperative INDEPENDENT INTERPRETATIONS: classroom monitor: (As interpreted by myself): - An order was placed for continuous cardiac monitoring - Patient was noted to be in atrial fibrillation with a rate of 58 EKG: (As interpreted by myself): Rate: 58 Rhythm: Atrial fibrillation Intervals: Within normal limits ST changes: No ST elevation Time: 1425 Chest x-ray: (As interpreted by myself): Pulmonary edema Interventions provided in ED: -IV Lasix, DuoNeb breathing treatment, IV Solu-Medrol Medical Decision Making: IV was established and lab work obtained, patient was placed on security monitor. Lab work shows no leukocytosis, hemoglobin is stable at 9.5 which appears to be near the patient's baseline, platelet count is normal, INR is therapeutic at 2.5, venous blood gas shows hypercarbia with a pCO2 of 77 and a pH of 7.30, CMP shows hyperkalemia with potassium of 5.7 without any obvious arrhythmia or peak T waves. BUN is also mildly elevated at 44, BNP is elevated at 334 and troponin is normal. EKG per my interpretation shows atrial fibrillation without any acute ischemic changes. Viral panel testing was obtained and is negative. On my reassessment the patient's work of breathing is improved but he still does remain with some mild increased work of breathing, I feel that he would benefit from BiPAP given his venous blood gas findings in addition to pulmonary edema on chest x-ray and therefore BiPAP was ordered. I suspect his symptoms are related to both obesity hypoventilation syndrome as well as pulmonary edema. I discussed the patient's presentation with the on-call hospitalist for [facility], Dr. Benson, and the patient was placed for admission in stable condition. P Consultants/Discussions held with other healthcare providers: -Hospitalist, Dr. Benson Disposition discussion held by myself with: -Patient * CRITICAL CARE TIME: ( 50 ) minutes -Stabilization of patient with hypoxia on supplemental oxygen at 85% in the field requiring eventually positive pressure ventilation with BiPAP for stabilization for hypercarbic respiratory failure, time spent at the bedside, interpretation of lab work and diagnostic studies, discussion with other healthcare providers and arrangement of admission Diagnosis: 1. Acute hypercarbic respiratory failure with hypoxia 2. Pulmonary edema, acute 3. Hyperkalemia, acute 4. Elevated BNP, acute Disposition: Admission Jarad Corrigan DO Emergency Medicine Past Med/Surg History Problem List (Updated 07/20/24 @ 15:47 by Jarad Corrigan DO) Hypoxia (Acute) Abnormal CT scan, chest Obesity hypoventilation syndrome Acute on chronic heart failure with preserved ejection fraction Congestive heart failure (Acute) Acute respiratory failure with hypoxia and hypercarbia (Acute) Acute on chronic congestive heart failure O2 dependent (Acute) Anticoagulant long-term use Chronic a-fib DM II (diabetes mellitus, type II), controlled Chronic respiratory failure with hypoxia COPD (chronic obstructive pulmonary disease) (Acute) Medical History (Updated 07/20/24 @ 15:47 by Jarad Corrigan DO) Pulmonary hypertension Hx of smoking Chronic congestive heart failure Hx of deep venous thrombosis Surgical History (Updated 06/10/23 @ 14:15 by Pham Lindo PA-C) No pertinent past surgical history Family History (Updated 06/10/23 @ 14:17 by Pham Lindo PA-C) Other Diabetes Social History (Updated 06/10/23 @ 13:20 by Pham Lindo PA-C) Smoking Status: Never smoker Tobacco Type: Cigarettes Second Hand Exposure: Yes; Do You Dip or Chew Tobacco: No; Hx Alcohol Use: Yes Alcohol type: beer Hx Substance Use: No Preferred Language: Nigerien Communication Ability: Effective Disaster Response Director Required: No Beliefs That Will Affect Care: None Current Living Situation: Family Feels Safe at Home: Yes Assistive Devices: BiPap, Oxygen - Continuous and Walker Allergies Allergies Allergy/AdvReac Type Severity Reaction Status Date / Time No Known Allergies Allergy Verified 05/12/24 23:12 Home Meds Home Medications Medication Instructions Recorded Confirmed empagliflozin 10 mg tablet 10 mg PO QAM 06/10/23 05/12/24 enalapril maleate 10 mg tablet 10 mg PO DAILY 06/10/23 05/12/24 fluticasone fur. 100 mcg-umeclid 1 inh inhalation DAILY 06/10/23 05/12/24 62.5 mcg-vilant 25 mcg inhalat.powder (Trelegy Ellipta) isosorbide mononitrate 60 mg 60 mg PO QAM 06/10/23 05/12/24 tablet,extended release 24 hr [id number] 300 mcg-K 60 1 tab PO DAILY 06/10/23 05/12/24 mcg-lycop 600 mcg-lutein 300 mcg tablet (Centrum Silver Men) pantoprazole 40 mg tablet,delayed 40 mg PO DAILY 06/10/23 05/12/24 release potassium chloride 10 mEq 10 meq PO Q OTHER DAY 06/10/23 05/12/24 tablet,extended release warfarin 10 mg tablet See Rx Instructions .Route .COMPLEX 06/10/23 05/12/24 albuterol sulfate 90 mcg/actuation 2 puff inhalation Q6H PRN 05/12/24 05/12/24 aerosol inhaler Shortness Of Breath Or Wheezing atorvastatin 80 mg tablet 80 mg PO QAM 05/12/24 05/12/24 fluticasone propionate 50 2 spray intranasal DAILY 05/12/24 05/12/24 mcg/actuation nasal spray,suspension guaifenesin 600 mg tablet, 600 mg PO BID 05/12/24 05/12/24 extended release 12 hr (Mucinex) ketoconazole 2 % topical cream 1 applic topical DIRECTED PRN 05/12/24 05/12/24 DRY SKIN PATCHES prednisone 20 mg tablet 40 mg PO DAILY PRN COPD RESCUE KIT 05/12/24 05/12/24 torsemide 20 mg tablet 40 mg PO QAM 05/12/24 05/12/24 Previous Rx's Medication Instructions Recorded carvedilol 3.125 mg tablet 3.125 mg PO BIDM #60 tabs 06/17/23 ipratropium 0.5 mg-albuterol 3 mg 3 ml inhalation Q6H Shortness Of 05/19/24 (2.5 mg base)/3 mL nebulization Breath #0 mL soln sodium chloride 7 % for 4 ml NEB BIDR #120 mL 05/19/24 nebulization spironolactone 25 mg tablet 12.5 mg (1/2 x 25 mg) PO DAILY #30 05/19/24 tabs Results & Data (ED) Vital Signs Vital Signs - 24 hr 07/20/24 14:33 07/20/24 14:38 07/20/24 14:38 Temperature 36.7 C Temperature Source Axillary Pulse Rate 62 63 Pulse Rhythm Irregular Pulse Strength Normal Respiratory Rate 22 Respiratory Effort / Characteristics Spontaneous Short of Breath Spontaneous Labored Respiratory Depth Normal Respiratory Pattern Regular Regular Blood Pressure 117/69 Blood Pressure Mean 85 Pulse Oximetry 98 Oxygen Delivery Method Room Air Nasal Cannula Oxygen Flow Rate 4 Fraction of Inspired Oxygen Sepsis Recent Fever Within 48 Hours No Sepsis New/Unexplained Change in Mental Status N/A Sepsis Action Taken by Nursing No Action Required 07/20/24 14:38 07/20/24 15:24 Temperature Temperature Source Pulse Rate 55 L Pulse Rhythm Pulse Strength Respiratory Rate 22 Respiratory Effort / Characteristics Non-Labored Spontaneous Respiratory Depth Normal Respiratory Pattern Regular Blood Pressure Blood Pressure Mean Pulse Oximetry 98 97 Oxygen Delivery Method Room Air Oxygen Flow Rate 4 Fraction of Inspired Oxygen 30 Sepsis Recent Fever Within 48 Hours Sepsis New/Unexplained Change in Mental Status Sepsis Action Taken by Nursing Laboratory Data 07/20/24 14:30 07/20/24 14:30 Lab Results 07/20/24 Range/Units 14:30 WBC 8.67 (4.8-10.8) K/ul RBC 3.44 L (4.70-6.10) M/uL Hgb 9.5 L (14.0-18.0) g/dl Hct 32.7 L (42.0-52.0) % MCV 95.1 (80.0-100.0) fL MCH 27.6 (25.0-34.0) pg MCHC 29.1 L (32.0-36.0) g/dL RDW Std Deviation 59.5 H (36.4-46.3) fL RDW Coeff of Dhaval 17.2 H (11.5-14.5) % Plt Count 239 (130-400) K/uL MPV 9.5 (9.4-12.4) fL Immature Gran % (Auto) 0.3 % Neut % (Auto) 81.3 % Lymph % (Auto) 8.3 % [place] % (Auto) 7.6 % Eos % (Auto) 1.8 % Baso % (Auto) 0.7 % Neut # (Auto) 7.04 H (1.40-6.50) K/uL Lymph # (Auto) 0.72 L (1.20-3.40) K/uL [place] # (Auto) 0.66 H (0.11-0.59) K/uL Eos # (Auto) 0.16 (0.00-0.50) K/uL Baso # (Auto) 0.06 (0.00-0.20) K/uL Immature Gran # (Auto) 0.03 (0.01-0.20) K/uL PT 25.0 H (9.0-12.0) Seconds INR 2.5 H (0.9-1.1) VBG pH 7.30 L (7.36-7.41) VBG pCO2 77 H (38-50) mmHg VBG pO2 20 mmHg VBG HCO3 38 mmol/L VBG O2 Saturation < 60.0 % VBG Base Excess 8.4 mEq/L Sodium 136 (136-145) mmol/L Potassium 5.7 H (3.5-5.1) mmol/L Chloride 94 L (98-107) mmol/L Carbon Dioxide 38 H (21-32) mmol/L Anion Gap 4 (3-11) BUN 44 H (6-23) mg/dl Creatinine 1.01 (0.6-1.4) mg/dl Est Cr Clr Drug Dosing 102.9 ml/min Est GFR ( Amer) 88.8 ml/min Est GFR (Non-Af Amer) 76.6 ml/min BUN/Creatinine Ratio 43.6 H (10-20) Glucose 122 H (70-99(Fasting)) mg/dl Calcium 9.3 (8.6-10.3) mg/dl Total Bilirubin 0.5 (0.2-1.0) mg/dl AST 21 (13-39) U/L ALT 16 (7-52) U/L Alkaline Phosphatase 99 (34-104) U/L Troponin I High Sens 18.1 (0-20) pg/ml B-Natriuretic Peptide 334 H (0-100) pg/ml Total Protein 7.3 (6.0-8.3) gm/dl Albumin 4.1 (3.4-5.0) gm/dl Globulin 3.2 (2.5-4.0) gm/dl Albumin/Globulin Ratio 1.3 (0.9-2) Adenovirus (PCR) Not Detected (NotDetected) B. pertussis DNA (PCR) Not Detected (NotDetected) B.parapertussis DNA PCR Not Detected (NotDetected) C. pneumoniae DNA (PCR) Not Detected (NotDetected) Coronavirus OC43 (PCR) Not Detected (NotDetected) Coronavirus HKU1 (PCR) Not Detected (NotDetected) Coronavirus 229E (PCR) Not Detected (NotDetected) SARS-CoV-2 (PCR) Not Detected (NotDetected) Coronavirus NL63 (PCR) Not Detected (NotDetected) Human Metapneumovir PCR Not Detected (NotDetected) Influenza Type A (PCR) Not Detected (NotDetected) Influenza Type B (PCR) Not Detected (NotDetected) M. pneumoniae (PCR) Not Detected (NotDetected) Parainfluenza 1 (PCR) Not Detected (NotDetected) Parainfluenza 2 (PCR) Not Detected (NotDetected) Parainfluenza 3 (PCR) Not Detected (NotDetected) Parainfluenza 4 (PCR) Not Detected (NotDetected) RSV (PCR) Not Detected (NotDetected) Entero/Rhino (PCR) Not Detected (NotDetected) Administered Medications Discontinued Medications Albuterol (Albut/Ipratrop 3mg/0.5mg Neb 3 Ml Vial) 3 ml INH NOW STA Stop: 07/20/24 14:28 Last Admin: 07/20/24 15:13 Dose: 3 ml Documented By: IBETH Furosemide (Furosemide 40 Mg/4 Ml Vial) 40 mg IV ONE ONE Stop: 07/20/24 15:18 Last Admin: 07/20/24 15:22 Dose: 40 mg Documented By: IBETH Methylprednisolone (Methylprednisolone 125 Mg/2 Ml Vial) 125 mg IV NOW STA Stop: 07/20/24 14:52 Last Admin: 07/20/24 15:13 Dose: 125 mg Documented By: IBETH Imaging Data Radiologist's Impression: Chest X-Ray 07/20/24 14:27 XR chest 1V portable HISTORY: 68 years-old Male Dyspnea acute shortness of breath COMPARISON: 05/18/2024 TECHNIQUE: AP view of the chest FINDINGS: Cardiac silhouette is enlarged. Pulmonary vascular congestion with interstitial coarsening. No pneumothorax. Mild bibasilar airspace opacities are similar to prior. Degenerative changes of the shoulders and spine. No large pleural effusion. IMPRESSION: 1. Cardiomegaly with suggestion of pulmonary edema. 2. Mild bibasilar opacities may represent atelectasis versus pneumonitis. ACT 112: Negative or not required by law. The above report was generated using voice recognition software. It may contain grammatical, syntax or spelling errors. Electronically signed by: Josiah Sanchez M.D. 07/20/2024 3:27 PM Discharge Plan Visit Data Chief Complaint: Shortness of Breath/Dyspnea Stated Complaint: SOB ED Provider: Jarad Corrigan Discharge Problem: Hypoxia Forms Stand Alone Forms: My [facility] Prescriptions Prescriptions: No Action enalapril maleate 10 mg Tablet 10 mg PO DAILY warfarin 10 mg Tablet See Rx Instructions .ROUTE .COMPLEX Rx Instructions: TAKES 10 MG ON MON, WED, & FRI EVENINGS, THEN 15 MG ON SUN, TUES, THURS, & SAT EVENINGS. potassium chloride 10 mEq Tablet Extended Release 10 meq PO Q OTHER DAY isosorbide mononitrate 60 mg Tablet Extended Release 24 Hr 60 mg PO QAM pantoprazole 40 mg Tablet,Delayed Release (Dr/Ec) 40 mg PO DAILY Centrum Silver Men [id number] mcg Tablet 1 tab PO DAILY empagliflozin 10 mg Tablet 10 mg PO QAM Trelegy Ellipta 100-62.5-25 mcg Blister With Device 1 inh INHALATION DAILY carvedilol 3.125 mg Tablet 3.125 mg PO BIDM Qty: 60 0RF atorvastatin 80 mg tablet 80 mg PO QAM torsemide 20 mg tablet 40 mg PO QAM prednisone 20 mg Tablet 40 mg PO DAILY PRN (Reason: COPD RESCUE KIT) Rx Instructions: TAKE FOR 5 DAYS. albuterol sulfate 90 mcg/actuation Hfa Aerosol Inhaler 2 puff INHALATION Q6H PRN (Reason: Shortness Of Breath Or Wheezing) ketoconazole 2 % cream 1 applic TOPICAL DIRECTED PRN (Reason: DRY SKIN PATCHES) fluticasone propionate 50 mcg/actuation Mobile,Suspension 2 spray INTRANASAL DAILY Rx Instructions: administer into each nostril guaifenesin [Mucinex] 600 mg Tablet Extended Release 12hr 600 mg PO BID spironolactone 25 mg Tablet 12.5 mg PO DAILY Qty: 30 0RF sodium chloride 7 % Solution For Nebulization 4 ml NEB BIDR Qty: 120 0RF ipratropium-albuterol 0.5 mg-3 mg(2.5 mg base)/3 mL solution for nebulization 3 ml INHALATION Q6H Qty: 0 0RF Referrals Referrals: Charley Crane MD [Primary Care Provider] -
[2024-07-20 14:49] LABS: Base Excess VBG 8.4 mEq/L; HCO3 VBG 38 mmol/L; Oxygen Saturation VBG < 60.0 %; PCO2 VBG 77 mmHg (38-50); PO2 VBG 20 mmHg
[2024-07-20 14:56] LABS: Basophils # (auto) 0.06 K/uL (0.00-0.20); Basophils % (auto) 0.7 %; Eosinophils # (auto) 0.16 K/uL (0.00-0.50); Eosinophils % (auto) 1.8 %; Hematocrit (blood only) 32.7 % (42.0-52.0); Hemoglobin 9.5 g/dl (14.0-18.0); Immature Granulocytes # (auto) 0.03 K/uL (0.01-0.20); Immature Granulocytes % (auto) 0.3 %; Lymphocytes # (auto) 0.72 K/uL (1.20-3.40); Lymphocytes % (auto) 8.3 %; Mean Corpuscular Hemoglobin 27.6 pg (25.0-34.0); Mean Corpuscular Hgb Conc 29.1 g/dL (32.0-36.0); Mean Corpuscular Volume 95.1 fL (80.0-100.0); Mean Platelet Volume 9.5 fL (9.4-12.4); Monocytes # (auto) 0.66 K/uL (0.11-0.59); Monocytes % (auto) 7.6 %; Neutrophils # (auto) 7.04 K/uL (1.40-6.50); Neutrophils % (auto) 81.3 %; Platelet Count 239 K/uL (130-400); RDW Coefficient of Variation 17.2 % (11.5-14.5); RDW Standard Deviation 59.5 fL (36.4-46.3); Red Blood Count 3.44 M/uL (4.70-6.10); White Blood Count 8.67 K/ul (4.8-10.8)
[2024-07-20 15:13] LABS: Albumin Globulin Ratio 1.3 (0.9-2); Albumin Level 4.1 gm/dl (3.4-5.0); BUN Creatinine Ratio 43.6 (10-20); Bilirubin,Total 0.5 mg/dl (0.2-1.0); Calcium 9.3 mg/dl (8.6-10.3); Creatinine Clr Calc Pharmacy 102.9 ml/min; Est GFR (African American) 88.8 ml/min; Est GFR (Non-African American) 76.6 ml/min; Globulin 3.2 gm/dl (2.5-4.0); Potassium 5.7 mmol/L (3.5-5.1); Total Protein 7.3 gm/dl (6.0-8.3)
[2024-07-20] MEDS: ALBUT/IPRATROP 3MG/0.5MG NEB 3 ML VIAL INH STA (15:13)
[2024-07-20] MEDS: methylPREDNISolone 125 MG/2 ML VIAL IV STA (15:13)
[2024-07-20 15:17] LABS: Troponin I High Sensitivity 18.1 pg/ml (0-20)
[2024-07-20] MEDS: FUROSEMIDE 40 MG/4 ML VIAL IV ONE (15:22)
[2024-07-20 15:24] LABS: INR 2.5 (0.9-1.1)
--- NOTE | 2024-07-20 15:29 | XRay Report ---
XR chest 1V portable HISTORY: 68 years-old Male Dyspnea acute shortness of breath COMPARISON: 05/18/2024 TECHNIQUE: AP view of the chest FINDINGS: Cardiac silhouette is enlarged. Pulmonary vascular congestion with interstitial coarsening. No pneumo thorax. Mild bibasilar airspace opacities are similar to prior. Degenerative changes of the shoulders and spine. No large pleural effusion. IMPRESSION: 1. Cardiomegaly with suggestion of pulmonary edema. 2. Mild bibasilar opacities may represent atelectasis versus pneumonitis. ACT 112: Negative or not required by law. The above report was generated using voice recognition software. It may contain grammatical, syntax o r spelling errors. Electronically signed by: Josiah Sanchez M.D. 07/20/2024 3:27 PM
[2024-07-20 15:42] LABS: Adenovirus PCR Not Detected (NotDetected); Bordetella parapertussis PCR Not Detected (NotDetected); Bordetella pertussis PCR Not Detected (NotDetected); Chlamydia pneumoniae PCR Not Detected (NotDetected); Coronavirus 229E PCR Not Detected (NotDetected); Coronavirus CoV-2 (COVID19)PCR Not Detected (NotDetected); Coronavirus HKU1 PCR Not Detected (NotDetected); Coronavirus NL63 PCR Not Detected (NotDetected); Coronavirus OC43PCR Not Detected (NotDetected); Human Metapneumovirus PCR Not Detected (NotDetected); Influenza A PCR Not Detected (NotDetected); Influenza B PCR Not Detected (NotDetected); Mycoplasma pneumoniae PCR Not Detected (NotDetected); Parainfluenza Virus 1 PCR Not Detected (NotDetected); Parainfluenza Virus 2 PCR Not Detected (NotDetected); Parainfluenza Virus 3 PCR Not Detected (NotDetected); Parainfluenza Virus 4 PCR Not Detected (NotDetected); Respiratory Syncytial VirusPCR Not Detected (NotDetected); Rhinovirus/Enterovirus PCR Not Detected (NotDetected)
--- NOTE | 2024-07-20 15:56 | History & Physical Report ---
Date of Service July 20, 2024 Assessment & Plan (1) Obesity hypoventilation syndrome: (2) Acute on chronic heart failure with preserved ejection fraction: (3) Acute respiratory failure with hypoxia and hypercarbia: Plan Pt is a 68yoM with PMHx significant for chronic diastolic heart failure, A- fib/history DVT on Coumadin, valvular heart disease, hypertension, hyperlipidemia, chronic respiratory failure secondary to pulmonary hypertension, COPD, OHS on BiPAP, DM2, chronic anemia presenting from home with trouble breathing. History obtained from patient's daughter via telephone as well as patient in the room. Daughter states that he was discharged home from rehab in April and at that time was able to walk around and do things for himself. However she states that once he got home he "planted" himself on the chair and would not get up. States he is not fluid restricting as has been advised. States that he does have home PT services but they have not been getting him up. States he just chooses not to walk. States he does not have portable oxygen but does use oxygen with 2 L at home. States that he started with the trouble breathing about a week ago but it has progressed. States it sounded like there was a rattle in his chest for the last 1 to 2 weeks. Also concerned about wounds in his buttock region. States that they have been present since discharge from acute rehab. States that he has bathed twice since he has been home from rehab. Daughter notes that her typically helps him get cleaned up. Patient is alert and oriented and able to converse even with BiPAP on his face. Acute on chronic respiratory failure with hypoxia and hypercarbia Acute on chronic congestive heart failure Obesity hypoventilation syndrome Patient hypoxic on arrival, requiring BiPAP support VBG with pH of 7.30, pCO2 of 77 and bicarb of 38 Chest x-ray concerning for fluid overload and possible pneumonitis CT chest pending Respiratory BioFire negative Pro-Jorge negative Repeat echo pending Continue with BiPAP, wean as tolerated Patient received IV Lasix 40 mg in the ED, continue with IV Lasix 40 mg daily Hold home torsemide, will hold home spironolactone with noted hyperkalemia (see below) Will place Barron for accurate measurements, Monitor I's and O's, daily weights Continue home inhalers Cardiology consulted, appreciate recs Pulmonology consulted, appreciate recs Continue to monitor on telemetry Lower extremity cellulitis Lower extremity edema Bilateral lower extremities with warmth and erythema, right greater than left Noted lower extremity swelling, significant Started on IV Rocephin and Daptomycin On daily IV Lasix 40 mg as noted above which will help with her edema Continue to monitor Buttock wounds Wound nurse consult On IV Rocephin and daptomycin as noted above Continue to monitor for need for surgical debridement Hyperkalemia Potassium 5.7 on admission Hold home potassium supplements Holding home spironolactone as noted above Continue to monitor with a.m. labs Atrial fibrillation EKG noting A-fib with slow ventricular response continue home Coreg patient currently therapeutically anticoagulated with warfarin, INR 2.5 Cardiology consulted as above Follow INR, continue to monitor on telemetry Continue other home meds as ordered CODE STATUS: Full code per discussion with patient Diet: Heart healthy, DM2 with fluid restriction of 1500 mL DVT prophylaxis: On warfarin, currently therapeutic Dispo: Admit to PCU telemetry History of Present Illness Chief Complaint: SOB Primary Care Provider: Charley Crane MD Pt is a 68yoM with PMHx significant for chronic diastolic heart failure, A- fib/history DVT on Coumadin, valvular heart disease, hypertension, hyperlipidemia, chronic respiratory failure secondary to pulmonary hypertension, COPD, OHS on BiPAP, DM2, chronic anemia presenting from home with trouble breathing. History obtained from patient's daughter via telephone as well as patient in the room. Daughter states that pt was discharged home from rehab in April after being hospitalized for the same and at that time was able to walk around and do things for himself. However she states that once he got home he "planted" himself on the chair and would not get up. States he is not fluid restricting as has been advised. States that he does have home PT services but they have not been getting him up. States he just chooses not to walk. States he does not have portable oxygen but does use oxygen with 2 L at home. States that he started with the trouble breathing about a week ago but it has progressed. States it sounded like there was a rattle in his chest for the last 1 to 2 weeks. She is also concerned about wounds in his buttock region. States that they have been present since discharge from acute rehab. States that he has bathed twice since he has been home from rehab. Daughter notes that her typically helps him get cleaned up. daughter states that the lower extremity redness was concerning and she noticed it first last night. Believes that it has rapidly progressed and is concerned that he might have an infection. Patient is alert and oriented and able to converse even with BiPAP on his face. Allergies Allergy/AdvReac Type Severity Reaction Status Date / Time No Known Allergies Allergy Verified 05/12/24 23:12 Home Medications Medication Instructions Recorded Confirmed Type empagliflozin 10 mg tablet 10 mg PO QAM 06/10/23 07/20/24 History enalapril maleate 10 mg tablet 10 mg PO DAILY 06/10/23 07/20/24 History fluticasone fur. 100 mcg-umeclid 1 inh inhalation DAILY 06/10/23 07/20/24 History 62.5 mcg-vilant 25 mcg inhalat.powder (Trelegy Ellipta) anerwopc-nm-skmty 300 mcg-K 60 1 tab PO DAILY 06/10/23 07/20/24 History mcg-lycop 600 mcg-lutein 300 mcg tablet (Centrum Silver Men) pantoprazole 40 mg tablet,delayed 40 mg PO DAILY 06/10/23 07/20/24 History release potassium chloride 10 mEq 10 meq PO Q OTHER DAY 06/10/23 07/20/24 History tablet,extended release warfarin 10 mg tablet See Rx Instructions .Route .COMPLEX 06/10/23 07/20/24 History carvedilol 3.125 mg tablet 3.125 mg PO BIDM #60 tabs 06/17/23 07/20/24 Rx albuterol sulfate 90 mcg/actuation 2 puff inhalation Q6H PRN 05/12/24 07/20/24 History aerosol inhaler Shortness Of Breath Or Wheezing atorvastatin 80 mg tablet 80 mg PO QAM 05/12/24 07/20/24 History fluticasone propionate 50 2 spray intranasal DAILY 05/12/24 07/20/24 History mcg/actuation nasal spray,suspension ketoconazole 2 % topical cream 1 applic topical DIRECTED PRN 05/12/24 07/20/24 History DRY SKIN PATCHES prednisone 20 mg tablet 40 mg PO DAILY PRN COPD RESCUE KIT 05/12/24 07/20/24 History torsemide 20 mg tablet 40 mg PO QAM 05/12/24 07/20/24 History ipratropium 0.5 mg-albuterol 3 mg 3 ml inhalation Q6H Shortness Of 05/19/24 07/20/24 Rx (2.5 mg base)/3 mL nebulization Breath #0 mL soln sodium chloride 7 % for 4 ml NEB BIDR #120 mL 05/19/24 07/20/24 Rx nebulization spironolactone 25 mg tablet 12.5 mg (1/2 x 25 mg) PO DAILY #30 05/19/24 07/20/24 Rx tabs doxycycline hyclate 100 mg capsule 0 mg PO BID 07/20/24 07/20/24 History montelukast 10 mg tablet 10 mg PO QAM 07/20/24 07/20/24 History nystatin 100,000 unit/gram topical 1 applic topical BID affected area 07/20/24 07/20/24 History cream Past Med/Surg History Problem List (Updated 07/20/24 @ 15:47 by Jarad Corrigan DO) Hypoxia (Acute) Abnormal CT scan, chest Obesity hypoventilation syndrome Acute on chronic heart failure with preserved ejection fraction Congestive heart failure (Acute) Acute respiratory failure with hypoxia and hypercarbia (Acute) Acute on chronic congestive heart failure O2 dependent (Acute) Anticoagulant long-term use Chronic a-fib DM II (diabetes mellitus, type II), controlled Chronic respiratory failure with hypoxia COPD (chronic obstructive pulmonary disease) (Acute) Medical History (Updated 07/20/24 @ 15:47 by Jarad Corrigan DO) Pulmonary hypertension Hx of smoking Chronic congestive heart failure Hx of deep venous thrombosis Surgical History (Updated 06/10/23 @ 14:15 by Pham Lindo PA-C) No pertinent past surgical history Family History (Updated 06/10/23 @ 14:17 by Pham Lindo PA-C) Other Diabetes Social History (Updated 06/10/23 @ 13:20 by Pham Lindo PA-C) Smoking Status: Never smoker Tobacco Type: Cigarettes Second Hand Exposure: Yes; Do You Dip or Chew Tobacco: No; Hx Alcohol Use: Yes Alcohol type: beer Hx Substance Use: No Preferred Language: [place] Communication Ability: Effective Mold Preparer Required: No Beliefs That Will Affect Care: None Current Living Situation: Family Feels Safe at Home: Yes Assistive Devices: BiPap, Oxygen - Continuous and Walker Review of Systems Review of Systems: All systems reviewed & are unremarkable except as noted in HPI & below Physical Exam Physical Exam: General: Alert, oriented, bipap on face, morbidly obese Skin: lower extremities with erythema bilaterally as well as warmth, R> L Psych: Appropriate mood and affect Neuro: difficulty with movements in the bed HEENT: NC/AT, bipap on face Chest: Nontender to palpation. CV: irregular Resp: increased effort of breathing, bipap on face Abdomen: Soft, nontender, protuberant Extremities: edema and erythema in lower extremities bilaterally. Results & Data Results & Data Vital Signs (Past 12 Hours) Vital Signs Temp Pulse Resp BP Pulse Ox O2 Del Method O2 Flow Rate 07/20/24 15:24 55 L 22 97 07/20/24 14:38 98 Room Air 4 07/20/24 14:38 Nasal Cannula 4 07/20/24 14:38 36.7 C 63 22 117/69 98 Room Air 07/20/24 14:33 62 FiO2 07/20/24 15:24 30 07/20/24 14:38 07/20/24 14:38 07/20/24 14:38 07/20/24 14:33 Diagnostic Findings Chest X-Ray 07/20/24 14:27 XR chest 1V portable HISTORY: 68 years-old Male Dyspnea acute shortness of breath COMPARISON: 05/18/2024 TECHNIQUE: AP view of the chest FINDINGS: Cardiac silhouette is enlarged. Pulmonary vascular congestion with interstitial coarsening. No pneumothorax. Mild bibasilar airspace opacities are similar to prior. Degenerative changes of the shoulders and spine. No large pleural effusi on. IMPRESSION: 1. Cardiomegaly with suggestion of pulmonary edema. 2. Mild bibasilar opacities may represent atelectasis versus pneumonitis. ACT 112: Negative or not required by law. The above report was generated using voice recognition software. It may contain grammatical, syntax or spelling errors. Electronically signed by: Josiah Sanchez M.D. 07/20/2024 3:27 PM Code Status & VTE Plan VTE Prophylaxis Plan VTE Prophylaxis will be ordered: Yes
[2024-07-20] MEDS ORDERED: ACETAMINOPHEN 1,000 MG/100 ML VIAL IV SCH (16:45)
[2024-07-20] MEDS: ACETAMINOPHEN 1,000 MG/100 ML VIAL IV SCH (16:55)
[2024-07-20] MEDS: cefTRIAXone SODIUM 2,000 MG/50 ML BAG IV SCH (18:10)
[2024-07-20] MEDS ORDERED: GLUCAGON FOR INJ 1 MG VIAL SQ PRN (18:43)
[2024-07-20] MEDS ORDERED: GLUCOSE 10 TAB/TUBE PO PRN (18:43)
[2024-07-20] MEDS ORDERED: DEXTROSE 50% 50 ML SYRINGE IV PRN (18:43)
[2024-07-20] MEDS ORDERED: ALBUTEROL HFA 8 GM INHALER INH PRN (18:43)
[2024-07-20] MEDS ORDERED: CARBOHYDRATES FOR HYPOGLYCEMIA PO PRN (18:43)
[2024-07-20] MEDS ORDERED: GLUCOSE 40% GEL 15 GM TUBE PO PRN (18:43)
[2024-07-20 19:05] LABS: Base Excess VBG 7.4 mEq/L; HCO3 VBG 35 mmol/L; PCO2 VBG 62 mmHg (38-50); PO2 VBG 33 mmHg; pH VBG 7.36 (7.36-7.41)
[2024-07-20 19:14] LABS: Appearance Urine Clear (Clear); Bilirubin Urine Negative (Negative); Blood Urine Negative (Negative); Color Urine Yellow; Glucose Urine UA 2+ (Negative); Ketones Urine Negative (Negative); Leukocyte Esterase Urine Negative (Negative); Nitrite Urine Negative (Negative); Protein Urine Negative (Negative); Specific Gravity Urine 1.009 (1.000-1.030); Urobilinogen Urine Negative (Negative)
[2024-07-20] MEDS: WARFARIN SOD 10 MG TAB PO SCH (19:44)
[2024-07-20] MEDS: INSULIN ASPART PER UNIT CHARGE SC SCH (19:45)
[2024-07-20] MEDS: DAPTOmycin 400 MG in SYRINGE 0 ML IV SCH (19:45)
--- NOTE | 2024-07-20 20:15 | CT Scan Report ---
Exam(s): CT CHEST Without Contrast EXAM: CT Chest Without Intravenous Contrast CLINICAL HISTORY: Reason for exam: SOB, rule out pneumonia. TECHNIQUE: Axial computed tomography images of the chest without intravenous contrast. Automated exposure control was utilized for the study. A dose lowering technique was utilized adhering to the principles of ALARA. COMPARISON: No relevant prior studies available. FINDINGS: Lungs: Mosaic groundglass densities are seen in bilateral lungs. No mass. No consolidation. Pleural space: Unremarkable. No pneumothorax. No significant effusion. Heart: Severe coronary artery calcifications are seen. No cardiomegaly. No significant pericardial effusion. Bones/joints: Unremarkable. No acute fracture. No dislocation. Lymph nodes: Unremarkable. No enlarged lymph nodes. IMPRESSION: Mosaic groundglass densities in bilateral lungs which could be from small airway inflammation. Electronically signed by: Christiano Guerra MD 07/20/24 20:14 PM
[2024-07-20] MEDS ORDERED: ALBUT/IPRATROP 3MG/0.5MG NEB 3 ML VIAL NEB PRN (21:03)
--- OUTSIDE RECORDS SUMMARY | 2024-07-21 01:53 | External Medical Summary | Summary of Care ---
Author Name Unknown Organization [facility] Address [address] [place] [address] Phone [phone] Care Team Providers Care [address] And Building Decorator Name Role Phone Charley Crane MD Primary Care Provider [phone] Reason for Referral * Evaluate & Treat - Unlimited Visits (Within 10 days (routine)) - Authorized Specialty Diagnoses / Procedures Referred By Karlie cobos Referred To Contact HOME CARE / Home Care Diagnoses Obesity hypoventilation syndrome (HCC) O2 dependent Longstanding persistent atrial fibrillation (HCC) Hypertensive heart disease with chronic diastolic congestive heart failure (HCC) COPD, group D, by GOLD 2017 classification (HCC) Chronic heart failure with preserved ejection fraction (HCC) Chronic respiratory failure with hypoxia and hypercapnia (HCC) Osteoarthritis of multiple joints, unspecified osteoarthritis type Charley Crane MD [address] [place] [phone] Referral ID Status Reason Start Date Expiration Date Visits Requested Visits Authorized [id number] Authorized Specialty Services Required 07/20/2024 999 999 Question Answer Referral Priority Within 10 days (routine) Where should this appointment be scheduled? [facility] Comments Documentation of [id number] Encounter Addendum Patient Name: Bala Raines [place] I certify that this patient is under my care and that I, or a nurse practitioner or physician's desk assistant working with me, had a sqdh-[id number] encounter that meets the physician [id number]-[id number] encounter requirements with this patient on: Jun 18 2024 The encounter with the patient was in whole, or in part, for the following medical condition, which is the primary reason for home health care (List medical condition): Gait dysfunction, ADL dysfunction I certify that, based on my findings, the following services are medically necessary home health services: Physical Therapy, nursing To provide the following care/treatments: (All hospitalists not following the patient after discharge should complete this section): PT, nursing Primary Care Physician to follow home care plan of care after discharge: Charley Crane My clinical findings support the need for the above services because: generalized weakness , OA , SOB, chronic respiratory failure Further, I certify that my clinical findings support that this patient is homebound (i.e. Absences from home require considerable and taxing effort and are for medical reasons or voodoo services or infrequently or of short duration when for other reason) because: Weakness, respiratory failure Physician Signature: Date of Signature: Physician Printed Name: Charley Crane MD Encounter Details Date Type Department Care Team (Late st Contact Info) Description 07/13/2024 Telephone Orthopaedics [facility] [address] [place] [address] Cm Dawson DO [address] [place] [address] Allergies No known active allergiesdocumented as of this encounter (statuses as of 07/20/2024) Medications Medication Sig Dispensed Refills Start Date End Date Status Centrum Silver 50+Men Oral Tablet Take 1 Tablet by mouth daily. Active oxygen IN GAS Use 3 L/min(Oxygen) as directed continuous. Uses 2.5 LPM at night with BIPAP and as needed during the day Active BiPAP every night at bedtime. Active Ketoconazole 2 % External CreamIndications:Se borrheic dermatitis Apply to dry patches on face once daily 30 g 1 3 Active guaiFENesin ER 600 MG Oral Tablet Extended Release 12 Hour (Mucinex) Take 1 Tablet by mouth 2 times a day. Active Empagliflozin 10 MG Oral Tablet (Jardiance) Take 1 Tablet by mouth in the morning. 90 Tablet 3 4 Active Spironolactone 25 MG Oral Tablet (Aldactone) Take 1 Tablet by mouth in the morning. 90 Tablet 3 4 Active Additional Information Patient taking differently: 12.5 mgOral Daily(AM), Reported on 06/03/2024 Torsemide 20 MG Oral Tablet (Demadex) Take 2 tablets by mouth once daily 180 Tablet 3 4 Active Warfarin Sodium 10 MG Oral Tablet (Coumadin) Take 1 to 1.5 tablets by mouth every day in the evening or as directed by the anticoagulation clinic. 100 Tablet 3 4 Active Albuterol Sulfate HFA 108 (90 Base) MCG/ACT Inhalation Aerosol Solution Inhale 2 Puffs by mouth every 6 hours as needed for Shortness of Breath or Wheezing. 54 g 1 4 Active Fluticasone Propionate 50 MCG/ACT Nasal Suspension (Flonase) Administer 2 Sprays into each nostril in the morning. 16 g 1 4 Active Atorvastatin Calcium 80 MG Oral Tablet (Lipitor)Indication s:Dyslipidemia, goal LDL below 70 Take 1 Tablet by mouth in the morning. 90 Tablet 3 4 Active Carvedilol 3.125 MG Oral Tablet (Coreg)Indications: Longstanding persistent atrial fibrillation (HCC),Hypertension goal BP (blood pressure) < 130/80,Chronic heart failure with preserved ejection fraction (HCC) Take 1 Tablet by mouth 2 times a day with morning and evening meals. 180 Tablet 3 4 Active Ipratropium-Albuter ol 0.5-2.5 (3) MG/3ML Inhalation Solution (Duoneb) INHALE THE CONTENTS OF 1 VIAL IN NEBULIZER EVERY 6 HOURS NEEDED FOR SHORTNESS OF BREATH 360 mL 3 4 Active Additional Information Patient taking differently: 3 mL Nebulizer, INHALE THE CONTENTS OF 1 VIAL IN NEBULIZER EVERY 4 HOURS NEEDED FOR SHORTNESS OF BREATH, Reported on 06/03/2024 Potassium Chloride ER 10 MEQ Oral Capsule Extended Release Take 1 Capsule by mouth every other day. 45 Capsule 1 4 Active Pantoprazole Sodium 40 MG Oral Tablet Delayed Release (Protonix) TAKE 1 TABLET BY MOUTH EVERY MORNING 90 Tablet 1 4 Active Trelegy Ellipta 100-62.5-25 MCG/ACT Aerosol Powder Breath Activated (Fluticasone-Umecli dinium-Vilanterol) Inhale 1 Puff by mouth in the morning. 180 Blister Dosing Unit 3 4 Active Enalapril Maleate 10 MG Oral Tablet (Vasotec) TAKE 1 TABLET BY MOUTH EVERY MORNING 90 Tablet 1 4 Active Montelukast Sodium 10 MG Oral Tablet (Singulair) Take 1 Tablet by mouth in the morning. 90 Tablet 3 4 Active Doxycycline Hyclate 100 MG Oral Capsule Take 1 Capsule by mouth in the morning and 1 Capsule before bedtime. Until gone. COPD rescue kit. 20 Capsule 4 Active Nystatin [id number] UNIT/GM External Cream Apply topically to affected area 2 times a day. Continue until resolved 30 g 2 4 Active predniSONE 20 MG Oral Tablet (Deltasone)Indicati ons:COPD, group D, by GOLD 2017 classification ([facility]) Take 2 Tablets by mouth in the morning. Rescue kit. Use only as instructed. 10 Tablet 4 Active Doxycycline Hyclate 100 MG Oral CapsuleIndications: COPD, group D, by GOLD 2017 classification ([facility]) Take 1 Capsule by mouth in the morning and 1 Capsule before bedtime. Rescue kit. Use only as instructed. 20 Capsule 4 Active documented as of this encounter (statuses as of 07/20/2024) Active Problems Problem Noted Date Diagnosed Date Stage 3 chronic kidney disease 06/15/2024 Hypertensive heart disease w ith chronic diastolic congestive heart failure 06/15/2024 Last Assessment & Plan: "RED FLAG" HF Symptoms: Leg Swelling Abdominal Bloating Increased dyspnea on exertion Medication Regimen: Beta Laureano Therapy: Carvedilol ANGEL Inhibitor/ARB Therapy: Enalapril Diuretic therapy: Torsemide Aldactone SGLT2 Inhibitor: empagliflozin (ex. 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 0 2023 Longstanding persistent atrial fibrillation 06/29 Last Assessment & Plan: Rate controlled Continue coumadin Hypertension goal BP (blood pressure) < 130/80 0 07/17/2023 Dyslipidemia, goal LDL below 70 07/17/2023 Atherosclerosis of [place] 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 pectoris 07/05/2023 BiPAP (biphasic positive airway pressure) depend ence 07/05/2023 PHT (pulmonary hypertension) 07/04/2023 Tobacco abuse, in remission 07/04/2023 Chronic respiratory failure with hypoxia and hyp ercapnia 07/04/2023 Last Assessment & Plan: Continue supplemental o2 Monitors with pulse ox Obesity hypoventilation syndrome 07/04/2023 Family history of [...] empagliflozin (ex. Jardiance) Remote Patient Monitoring Vendor: [facility] Device(s): Connected Scale Continuous Monitoring Device Self [...] A1c goal of less than 7.0% 06/08/2023 Last Assessment & Plan: "RED FLAG" Diabetic symptoms: Excessive Thirst, Rapid Weight Loss, Confusion, and Vision Changes Goal HgbA1c <7 Diabetic Complications Vascular (examples: PVD, PAD, CAD, CVA) Neurologic (example: Peripheral Neuropathy) Renal (example: CKD, Proteinuria, Dialysis) Recurrent Infections (example: Cellulitis, UTI) Medication Regimen SGLT (ex: Jardiance) DM Secondary Prevention ANGEL Inhibitor / ARB Additional Comments Hemoglobin AIC Results: Lab Results Component Value Date/Time HEMOGLOBIN A1C - [facility] 6.2 (H) 06/15/2024 02:40 PM HEMOGLOBIN A1C - [facility] 6.1 (H) 02/10/2024 01:36 PM HEMOGLOBIN A1C - [facility] 5.5 06/21/2023 12:33 PM Squamous cell carcinoma, face 06/08/2023 Venous insufficiency 06/08/2023 O2 dependent 06/08/2023 History of open leg wound 06/08/2023 On Coumadin for atrial fibrillation 06/08/2023 documented as of this encounter (statuses as of 07/20/2024) Resolved Problems Problem Noted Date Diagnosed Date [...] Classes - JULIA Class D - Inhaled Vqqhuszalvvxov-EBWI-NIFZ Combination Inhaler (Trellegy) Remote Patient Monitoring Vendor: [facility] Device(s): Continuous Monitoring Device Traditional Scale Self-Management plan High frequency nebulizer treatments every 4-6 hours around the clock Exacerbation plan Chest Xray Additional Comments: On continuous o2 2-3lpm Bipap at night Body mass index (BMI) of 40. 0 to 44.9 in adult 07/08/2023 07/09/2024 Overview: Per Obesity protocol Atherosclerosis of [place] 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 pectoris 07/05/2023 08/29/2023 Dyspnea 07/04/2023 08/13/2023 Occupational exposure in workplace 07/04/2023 02/14/2024 Chronic congestive heart failure 06/08/2023 07/05/2023 COPD, severe 06/08/2023 07/11/2023 Overview: Per COPD GOLD Classification Chronic hypoxemic respiratory failure 06/08/2023 07/04/2023 Chronic respiratory failure with hypoxia, on home oxygen therapy 06/08/2023 08/29/2023 Diabetes mellitus without complication 06/08/2023 08/29/2023 documented as of this encounter (statuses as of 07/20/2024) Immunizations Name Administration Dates Next Due Pneumococcal [...] you got the money to buy more. Never true 07/17/20 24 Within the past 12 months, t he food you bought just didn't last and you didn't have money to get more. Never true 07/17/2024 Childcare Answer Date Recorded Do you feel overwhelmed with taking care of a child, family member or friend? No 07/17/2024 Does your family need help f inding childcare? (Household - for ages 0-17 years) Not on file 07/17/2024 Clothing Answer Date Recorded Have you been unable to get clothing when it was really needed? No 07/17/2024 Is your family able to get c lothes or diapers when needed? (Household - for ages 0-17 years) Not on file 07/17/2024 Personal Safety Answer Date Recorded Do you feel unsafe or have concerns for your saf ety? No 07/17/2024 Do you have concerns for you r family's safety? (Household - for ages 0-17 years) Not on file 07/17/2024 Utilities Answer Date Recorded Do you have trouble paying y our heating, water, or electric bill? Yes 07/17/2024 Is your family able to pay t he heat, water, or electric bill? (Household - for ages 0-17 years) Not on file 07/17/2024 Does your family have access to good internet? (Household - for ages 0-17 years) Not on file 07/17/2024 Employment Status Answer Date Recorded Are you unemployed or without regular income? No 07/17/2024 Does the household have a re lar source of income? (Household - for ages 0-17 years) Not on file 07/17/2024 Social Connections Answer Date Recorded How often do you feel lonely or isolated from those around you? Sometimes 07/17/2024 Financial Resource Strain Answer Date R ecorded Do you have any trouble payi ng for your medications, or do you think you might in the future? No 07/17/2024 Does your family have troubl e paying for medicine? (Household - for ages 0-17 years) Not on file 07/17/2024 Transportation Needs Answer Date Record ed READ ONLY Do you have troubl e getting a ride to medical visits or work? Never True 07/17/2024 Does your family have a hard time getting a ride to doctors visits? (Household - for ages 0-17 years) Not on file 07/17/2024 Has lack of transportation k ept you from medical appointments, meetings, work, or from getting things needed for daily living? Check all that apply. No 07/17/2024 Do you (or your family) have trouble finding or paying for a ride (transportation)? (Household - for ages 0-17 years) Not on file 07/17/2024 Housing Stability Answer Date Recorded Do you currently live in a s helter or have no steady place to sleep at night? No 07/17/2024 READ ONLY Do you think you a re at risk of becoming homeless? No 07/17/2024 Does your family worry about paying for your home or becoming homeless? (Household - for ages 0-17 years) Not on file 0 07/17/2024 Are you homeless or worried that you might be in the future? No 07/17/2024 Are you (or your family) samantha eless or worried that you might be in the future? (Household - for ages 0-17 years) Not on file Food Insecurity Answer Date Recorded Do you need food for this week? No 07/17/2024 Are you able to get enough f ood for your family? (Household - for ages 0-17 years) Not on file 07/17/2024 Does your family need food t his week? (Household - for ages 0-17 years) Not on file 07/17/2024 Do you always have enough fo od for your family? (Household - for ages 0-17 years) Not on file 07/17/2024 Sex and Gender Information Value Date Recorded Sex Assigned at Male 02/10/2024 12:57 PM EDT Gender Identity Male 02/10/2024 12:57 PM EDT Sexual Orientation Straight 02/10/2024 12 :57 PM EDT Job Start Date Occupation Industry Not on file Not on file Not on file documented as of this encounter Miscellaneous Notes * Addendum Note - Charley Crane MD - 07/20/2024 10:33 AM EDTAddended by: CHARLEY CRANE on: 07/20/2024 10:33 AM Modules accepted: Orders * Telephone Encounter - Charley Crane MD - 07/20/2024 10:32 AM EDT Home health referral Please scheduel * Telephone Encounter - Gena Jordan LPN - 07/16/2024 12:22 PM EDT Spoke with pt, states bilateral knee Euflexxa didn't seem to help, states knees hurt worse. States he was admitted to rehab facility for approx 10 days due to COPD and congestive heart failure. States some one comes to his house once a week to "check on him". He wants to know what to do to get his stamina back and feel stronger. Gena Gudino LPN * Telephone Encounter - Delilah Saxena OSA - 07/13/2024 12:01 PM EDT Pt Pt called and would like Steffanie bartlett to give him a call would like to get some tests done documented in this encounter Plan of Treatment Upcoming Encounters Date Type Department Care Team (Late st Contact Info) Description 07/27/2024 7:10 AM EDT Laboratory Lab Mobile Phlebotomy [facility] [address] [place] [address] [facility] Draw [address] [place] [address] 07/27/2024 2:15 PM EDT Office Visit Interventional Pain Center, [facility] [address] [facility] [place] [address] Gely Gilmore MD [address] [place] [address] [place] [id number] 07/28/2024 6:00 AM EDT Anticoagulation [facility], [facility] [address] [place] [address] [place] [address] [facility], [facility] [address] [place] [address] 08/03/2024 3:00 PM EDT Office Visit Orthopaedics [facility] [address] [facility] [place] [address] Cm Dawson, DO [address] [facility] [place] [address] 08/10/2024 12:20 PM EDT Office Visit [address] [phone] Charley Crane MD [address] [place] [address] 09/02/2024 3:00 PM EST Office Visit [facility] [address] [facility] [place] [phone] Audrey Lee, DO [facility] [place] [address] Scheduled Referrals Name Type Priority Associated Diagnoses Orde r Schedule HOME HEALTH REFERRAL OP Referral Within 10 days (routine) Obesity hypoventilation syndrome (HCC) O2 dependent Longstanding persistent atrial fibrillation (HCC) Hypertensive heart disease with chronic diastolic congestive heart failure (HCC) COPD, group D, by GOLD 2017 classification (HCC) Chronic heart failure with preserved ejection fraction (HCC) Chronic respiratory failure with hypoxia and hypercapnia (HCC) Osteoarthritis of multiple joints, unspecified osteoarthritis type Ordered: 07/20/2024 Health Maintenance Due Date Last Done Comments Alpha-1 Antitrypsin 1974 CKD PHOS USE SMARTSET 09880 1974 DTap/Tdap Vaccines (1 - Tdap) 1975 Cologuard 2001 Colonoscopy 2001 Colorectal Cancer Screening 2001 Fecal Occult Blood Test 2001 Sigmoidoscopy 2001 AAA Screening 2021 COVID-19 Vaccine ( season) 2024 Influenza Vaccine (FLU shot) (#1) 2024 07/05/2023, 07/05/2023 GFR 12/16/2024 06/15/2024, 11/2023, 05/27/2024, Additional history exists HbA1c 12/16/2024 06/15/2024, 01/26, 06/21/2023 Adult Wellness Visit 02/09/2025 02/10/2024 Albumin/Creatinine Ratio 02/09/2025 02/10/2024 Depression Screening 02/09/2025 02/10/2024 Diabetic Eye Exam 04/28/2025 04/28/2024, , 09/09/2023 CKD HGB USE SMARTSET 42027 06/15/202506/15, 06/15/2024, 05/27/2024, Additional history exists Diabetic Foot Exam 06/15/2025 06/15/2024, 06/21/2023 O2 ASSESSMENT COMPLETED IN PAST YEAR FOR COPD 07/09/2025 07/09/2024 Pneumococcal Vaccine: 65+ Years Completed 07/05/2023 Zoster Vaccines Completed 04/13/2024, 12/02/2023 HPV (Gardasil) Vaccine Aged Out No lo nger eligible based on patient's age to complete this topic Hepatitis B Vaccine Aged Out No longe r eligible based on patient's age to complete this topic Hepatitis C Screening Discontinued MENINGOCOCCAL (MENACTRA/MENVEO) Aged Out No longer eligible based on patient's age to complete this topic documented as of this encounter Medical Devices Not on filedocumented as of this encounter Visit Diagnoses Diagnosis COPD, group D, by GOLD 2017 classification (HCC)- Primary Obesity hypoventilation syndrome (HCC) Obesity hypoventilation syndrome O2 dependent Dependence on supplemental oxygen Longstanding persistent atrial fibrillation (HCC) Hypertensive heart disease with chronic diastolic congestive heart failure (HCC) Chronic heart failure with preserved ejection fraction (HCC) Chronic respiratory failure with hypoxia and hypercapnia (HCC) Osteoarthritis of multiple joints, unspecified osteoarthritis type documented in this encounter Care Teams Street And Building Decorator Relationship Specialty Start Date End Date Charley Crane MD [address] [place] [address] PCP - General Internal Medicine 06/04/23 documented as of this encounter
--- OUTSIDE RECORDS SUMMARY | 2024-07-21 01:53 | External Medical Summary | Summary of Care ---
Author Name Unknown Organization [facility] Address [address] [place] [address] Phone [phone] Care Team Providers Care Web Editor Name Role Phone Charley Crane MD Primary Care Provider [phone] Reason for Visit * Reason Onset Date Comments Order Request 07/14/2024 Encounter Details Date Type Department Care Team (Late st Contact Info) Description 07/14/2024 Telephone [facility] [address] [place] [address] Charley Crane MD [address] [place] [address] Order Request Allergies No known active allergiesdocumented as of [...] rescue kit. 20 Capsule 4 Active Nystatin 961194 UNIT/GM External Cream Apply topically to affected area 2 times a day. Continue until resolved 30 g 2 4 Active predniSONE 20 MG Oral Tablet (Deltasone)Indicati ons:COPD, group D, by GOLD 2017 classification ([facility]) Take 2 Tablets by mouth in the morning. Rescue kit. Use only as instructed. 10 Tablet 4 Active Doxycycline Hyclate 100 MG Oral CapsuleIndications: COPD, group D, by GOLD 2017 classification ([facility]) Take 1 Capsule by mouth in the morning and 1 Capsule before bedtime. Rescue kit. Use only as instructed. 20 Capsule 4 Active Compressor Nebulizer Inhale via nebulizer. Use as directed. 1 Each 1 4 Active documented as of this encounter [...] classification 11/04 Overview: Per COPD GOLD Classification [facility]DC current use of anticoagulant therapy 0 2023 Longstanding persistent atrial fibrillation 06/29 Last Assessment & Plan: Rate controlled Continue coumadin Hypertension goal BP (blood pressure) < 130/80 0 07/17/2023 Dyslipidemia, goal LDL below 70 07/17/2023 Atherosclerosis of [place] co 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 Jardiance) Remote Patient Monitoring Vendor[place] [facility] [place] Device(s): Connected Scale Continuous Monitoring Device [...] Classes - JULIA Class D - Inhaled Ywuixszrnggfcb-ZOAJ-DBUX Combination Inhaler (Sandro) Remote Patient Monitoring Vendor: [facility] Device(s): Continuous Monitoring Device Traditional Scale Self-Management plan High frequency nebulizer treatments every 4-6 hours around the clock Exacerbation plan Chest Xray Additional Comments: On continuous o2 2-3lpm Bipap at night Body mass index (BMI) of 40. 0 to 44.9 in adult 07/08/2023 07/09/2024 Overview: Per Obesity protocol Atherosclerosis of [place] co 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 pectoris 07/05/2023 [...] encounter Miscellaneous Notes * Telephone Encounter - Charley Crane MD - 07/20/2024 9:55 AM EDT Ordered it Please fax DME to [facility] * Telephone Encounter - Jolanta Marie LPN - 07/17/2024 10:45 AM EDT DME order is pending. * Telephone Encounter - Sabra Antonio OSA - 07/14/2024 12:53 PM EDT An order was requested for this patient. Name of Requesting Provider: Charley Crane Order Requested: Home oxygen, Nebulizer, Bi-pap machine Diagnosis/Reason for Request: NA If order request is for Mammogram: Is the patient having any breast symptoms? N/A Is there a chance of ? N/A Has the patient had any breast problems in the past? NA What location AND department does the patient wish to have their order completed at? [facility] Fax Number, if applicable: NA Please contact Maira at [phone] when faxed If the caller is not a current patient, please advise the patient to call their current PCP to havethe order's prior to being seen in our office. The patient was informed that our providers would not order anything (medication, labs, etc.) prior to being seen. documented in this encounter Plan of Treatment Upcoming Encounters Date Type Department Care Team (Late st Contact Info) Description 07/20/2024 10:30 AM EDT Scheduled Telephone [facility], [facility] [address] [facility] [place] [address] Nataliya Erazo [facility] [address] [facility] [place] [address] 07/27/2024 7:10 AM EDT Laboratory Lab Mobile Phlebotomy [facility] [address] [place] [address] M[facility], G[facility] Mobile Home Draw [address] [place] [address] 07/27/2024 2:15 PM EDT Office Visit Interventional Pain Center, [facility] [address] [facility] [place] [address] Gely Gilmore MD [address] [facility] [place] [address] 07/28/2024 6:00 AM EDT Anticoagulation Centralized Clinical Pharmacy Services, [facility] Kobi [address] [place] [address] [place] [address] [facility], [address] [place] [address] 08/03/2024 3:00 PM EDT Office Visit Orthopaedics [facility] [place] [address] Cm Dawson, DO 132 [facility] [place] [address] 08/10/2024 12:20 PM EDT Office Visit Family [address] [phone] Charley Crane MD [address] [place] [address] 09/02/2024 3:00 PM EST Office Visit Sleep Disorders Ctr [facility] 132 [facility] [place] [phone] Audrey Lee, DO 132 [facility] [place] [address] Health Maintenance Due Date Last Done Comments Alpha-1 Antitrypsin 1974 CKD PHOS USE SMARTSET 75114 1974 DTap/Tdap Vaccines (1 - Tdap) 1975 Cologuard 2001 Colonoscopy 2001 Colorectal Cancer Screening 2001 Fecal Occult Blood Test 2001 Sigmoidoscopy 2001 AAA Screening 2021 COVID-19 Vaccine ( season) 2024 Influenza Vaccine (FLU shot) (#1) 2024 07/05/2023, 07/05/2023 GFR 12/16/2024 06/15/2024, 0811/2023, 05/27/2024, Additional history exists HbA1c 12/16/2024 06/15/2024, 0402/2024, 06/21/2023 Adult Wellness Visit 02/09/2025 02/10/2024 Albumin/Creatinine Ratio 02/09/2025 02/10/2024 Depression Screening 02/09/2025 02/10/2024 Diabetic Eye Exam 04/28/2025 04/28/2024, , 09/09/2023 CKD HGB USE SMARTSET 50033 06/15/202506/15, 06/15/2024, 05/27/2024, Additional history exists Diabetic [...] as of this encounter Visit Diagnoses Diagnosis Chronic respiratory failure with hypoxia and hypercapnia (HCC)- Primary Obesity hypoventilation syndrome (HCC) Obesity hypoventilation syndrome COPD, group D, by GOLD 2017 classification (HCC) Chronic heart failure with preserved ejection fraction (HCC) BiPAP (biphasic positive airway pressure) dependence Dependence on other enabling machine documented in this encounter Care Teams Web Editor Relationship Specialty Start Date End Date Charley Crane MD [address] [place] [address] PCP - General Internal Medicine 06/04/23 documented as of this encounter
--- OUTSIDE RECORDS SUMMARY | 2024-07-21 01:53 | External Medical Summary | Summary of Care ---
Author Name Unknown Organization [facility] Address [address] [place] [address] Phone [phone] Care Team Providers Care Sed High School Teacher Name Role Phone Charley Crane MD Primary Care Provider [phone] Reason for Visit * Reason Onset Date Comments Health Maintenance 07/17/2024 Encounter Details Date Type Department Care Team (Late st Contact Info) Description 07/17/2024 Telephone [facility] [address] [place] [address] Charley Crane MD [address] [place] [address] Health Maintenance Allergies No known active allergiesdocumented as of this encounter (statuses as of 07/17/2024) Medications Medication Sig Dispensed Refills Start Date [...] rescue kit. 20 Capsule 4 Active Nystatin 022905 UNIT/GM External Cream Apply topically to affected area 2 times a day. Continue until resolved 30 g 2 4 Active predniSONE 20 MG Oral Tablet (Deltasone)Indicati ons:COPD, group D, by GOLD 2017 classification ([facility]) Take 2 Tablets by mouth in the morning. Rescue kit. Use only as instructed. 10 Tablet 4 Active Doxycycline Hyclate 100 MG Oral CapsuleIndications: COPD, group D, by GOLD 2017 classification ([facility]) Take 1 Capsule by mouth in the morning and 1 Capsule before bedtime. Rescue kit. Use only as instructed. 20 Capsule 4 Active documented as of this encounter (statuses as of 07/17/2024) Active Problems Problem Noted Date Diagnosed Date [...] classification 11/04 Overview: Per COPD GOLD Classification care home current use of anticoagulant therapy 0 2023 Longstanding persistent atrial fibrillation 06/29 Last Assessment & Plan: Rate controlled Continue coumadin Hypertension goal BP (blood pressure) < 130/80 0 07/17/2023 Dyslipidemia, goal LDL below 70 07/17/2023 Atherosclerosis of [place] co 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 Jardiance) Remote Patient Monitoring V[place] [facility] [place] Device(s): Connected Scale Continuous Monitoring Device Self [...] as of this encounter (statuses as of 07/17/2024) Resolved Problems Problem Noted Date Diagnosed Date [...] Classes - JULIA Class D - Inhaled Xalpmgdvfzedco-XSWM-WMSP Combination Inhaler (Sandro) Remote Patient Monitoring Vendor: [facility] Device(s): Continuous Monitoring Device Traditional Scale Self-Management plan High frequency nebulizer treatments every 4-6 hours around the clock Exacerbation plan Chest Xray Additional Comments: On continuous o2 2-3lpm Bipap at night Body mass index (BMI) of 40. 0 to 44.9 in adult 07/08/2023 07/09/2024 Overview: Per Obesity protocol Atherosclerosis of [place] co 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 pectoris 07/05/2023 08/29/2023 Dyspnea 07/04/2023 08/13/2023 Occupational exposure in workplace 07/04/2023 02/14/2024 Chronic congestive heart failure 06/08/2023 07/05/2023 COPD, severe 06/08/2023 07/11/2023 Overview: Per COPD GOLD Classification Chronic hypoxemic respiratory failure 06/08/2023 07/04/2023 Chronic respiratory failure with hypoxia, on home oxygen therapy 06/08/2023 08/29/2023 Diabetes mellitus without complication 06/08/2023 08/29/2023 documented as of this encounter (statuses as of 07/17/2024) Immunizations Name Administration Dates Next Due Pneumococcal [...] 02/10/2024 Does the household have a re lar [...] encounter Miscellaneous Notes * Telephone Encounter - Hannah Barron LPN - 07/17/2024 10:48 AM EDT Care Gaps Comprehensive Care Outreach Last Office/Telemedicine Visit: 06/18/2024 (in office), Visit date not found (telemedicine) Next Office Visit: 08/10/2024 Hemoglobin AIC Results: Lab Results Component Value Date/Time HEMOGLOBIN A1C - [facility] 6.2 (H) 06/15/2024 02:40 PM HEMOGLOBIN A1C - [facility] 6.1 (H) 02/10/2024 01:36 PM HEMOGLOBIN A1C - [facility] 5.5 06/21/2023 12:33 PM BP Readings from Last 1 Encounters: 07/09/24 102/54 Reviewed Health Maintenance below: Health Maintenance Topic Date Due CKD PHOS USE SMARTSET 75785 Never done Alpha-1 Antitrypsin Never done DTap/Tdap Vaccines (1 - Tdap) Never done Colorectal Cancer Screening Never done AAA Screening Never done Influenza Vaccine (FLU shot) (1) 06/28/2024 COVID-19 Vaccine (1 - 2023- season) Never done HbA1c 12/16/2024 Colon cologuard never returned last year aaa Care Gap Outreach Action Taken: Unable to reach documented in this encounter Plan of Treatment Upcoming Encounters Date Type Department Care Team (Late st Contact Info) Description 07/27/2024 2:15 PM EDT Office Visit Interventional Pain Center, [facility] [address] [place] [address] Gely Gilmore MD [address] [facility] [place] [address] 07/28/2024 6:00 AM EDT Anticoagulation Centralized Clinical Pharmacy Services, [facility] Kobi [address] [place] [address] [place] [address] [place] [address] 08/03/2024 3:00 PM EDT Office Visit Orthopaedics [facility] 132 [place] [address] Cm Dawson, 132 [place] [address] 08/10/2024 12:20 PM EDT Office Visit [address] [place] [address] Charley Crane MD [address] [place] [address] 09/02/2024 3:00 PM EST Office Visit [facility] Disorders Ctr [facility] [address] [place] [address] Audrey Lee, [address] [place] [address] Health Maintenance Due Date Last Done Comments Alpha-1 Antitrypsin 1974 CKD PHOS USE SMARTSET 48671 1974 DTap/Tdap Vaccines (1 - Tdap) 1975 [...] 04/28/2024, , 09/09/2023 CKD HGB USE SMARTSET 51616 06/15/202506/15, 06/15/2024, 05/27/2024, Additional history exists Diabetic [...] filedocumented as of this encounter Care Teams Sed High School Teacher Relationship Specialty Start Date End Date Charley Crane MD [address] [place] [address] PCP - General Internal Medicine 06/04/23 documented as of this encounter
--- OUTSIDE RECORDS SUMMARY | 2024-07-21 01:53 | External Medical Summary | Summary of Care ---
Author Name Unknown Organization [facility] Address [address] [place] [address] Phone [phone] Care Team Providers Care Casino Floor Runner Name Role Phone Charley Crane MD Primary Care Provider Reason for Visit * Reason Onset Date Comments [facility]: Maintenance 07/17/2024 Encounter Details Date Type Department Care Team (Late st Contact Info) Description 07/17/2024 Telephone [facility], [facility] 132 [facility] [place] [address] Alida Luciano RN [address] [place] [address] [place] [address] [facility]: Maintenance Allergies No known active allergiesdocumented as [...] rescue kit. 20 Capsule 4 Active Nystatin 095218 UNIT/GM External Cream Apply topically to affected area 2 times a day. Continue until resolved 30 g 2 4 Active predniSONE 20 MG Oral Tablet (Deltasone)Indicati ons:COPD, group D, by GOLD 2017 classification ([facility]) Take 2 Tablets by mouth in the morning. Rescue kit. Use only as instructed. 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 Jardiance) Remote Patient Monitoring Vendor: [facility] Device(s): Connected Scale Continuous Monitoring Device Self [...] Classes - JULIA Class D - Inhaled Vnqsfvpurpurah-FKYP-VIYO Combination Inhaler (Sandro) Remote Patient Monitoring Vendor: [facility] Device(s): Continuous Monitoring Device Traditional Scale Self-Management plan High frequency nebulizer treatments every 4-6 hours around the clock Exacerbation plan Chest Xray Additional Comments: On continuous o2 2-3lpm Bipap at night Body mass index (BMI) of 40. 0 to 44.9 in adult 07/08/2023 07/09/2024 Overview: Per Obesity protocol Atherosclerosis of [place] co 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 pectoris 07/05/2023 [...] No 07/17/2024 Does the household have a unm children's hospitallar source of income? (Household - for ages [...] encounter Miscellaneous Notes * Telephone Encounter - Alida Luciano RN - 07/17/2024 2:25 PM EDT Pt reports he is having trouble cleaning his buttocks after going to the bathroom and is asking fora nurse to come to the home to help him clean himself. See TE from 07/16 when pt called for same concern. Pt made aware [facility] does not have personal care aides, and that a nurse would not be able to come out regularly for this reason. [facility] OT had signed off due to pt being at "optimal level of function." Pt reports he did receive a call from [facility] today to discuss personal care aides, states "that is a longer term option." documented in this encounter Plan of Treatment Upcoming Encounters Date Type Department Care Team (Late st Contact Info) Description 07/20/2024 10:30 AM EDT Scheduled Telephone [facility] [place], [facility] [address] [place] [address] Nataliya Erazo, [facility] [address] [place] [address] 07/27/2024 7:10 AM EDT Laboratory Lab Mobile Phlebotomy [facility] [address] [place] [address] [facility], [facility] Mobile Home Draw [address] [place] [address] 07/27/2024 2:15 PM EDT Office Visit Interventional Pain Center, [facility] [address] [facility] [place] [address] Gely Gilmore MD [address] [place] [address] 07/28/2024 6:00 AM EDT Anticoagulation Centralized Clinical Pharmacy Services, [facility] [address] [place] [address] [place] [address] [facility], [address] [place] [address] 08/03/2024 3:00 PM EDT Office Visit Orthopaedics [facility] 132 [facility] [place] [address] Cm Dawson, 132 [facility] [place] [address] 08/10/2024 12:20 PM EDT Office Visit [facility] [address] [place] [facility] [place] [phone] Charley Crane MD [address] [place] [address] 09/02/2024 3:00 PM EST Office Visit Sleep Disorders Ctr [facility] [address] [place] [phone] Audrey Lee, [address] [place] [address] Health Maintenance Due Date Last Done Comments Alpha-1 Antitrypsin 1974 CKD PHOS USE SMARTSET 17415 1974 DTap/Tdap Vaccines (1 - Tdap) 1975 [...] 04/28/2024, , 09/09/2023 CKD HGB USE SMARTSET 82706 06/15/202506/15, 06/15/2024, 05/27/2024, Additional history exists Diabetic [...] filedocumented as of this encounter Care Teams Casino Floor Runner Relationship Specialty Start Date End Date Charley Crane MD [address] [place] [address] PCP - General Internal Medicine 06/04/23 documented as of this encounter
--- OUTSIDE RECORDS SUMMARY | 2024-07-21 01:53 | External Medical Summary | Summary of Care ---
Author Name Unknown Organization [facility] Address [address] [place] [address] Phone [phone] Care Team Providers Care Concrete Foreman Name Role Phone Charley Crane MD Primary Care Provider [phone] Reason for Visit * Reason Onset Date Comments Library Cataloging Technician Documentation 07/17/2024 Encounter Details Date Type Department Care Team (Late st Contact Info) Description 07/17/2024 3:00 PM EDT Scheduled Telephone [facility], [facility] [address] [place] [address] [facility] [address] [place], [place] [phone] Allergies No known active allergiesdocumented as of [...] rescue kit. 20 Capsule 4 Active Nystatin 377963 UNIT/GM External Cream Apply topically to affected area 2 times a day. Continue until resolved 30 g 2 4 Active predniSONE 20 MG Oral Tablet (Deltasone)Indicati ons:COPD, group D, by GOLD 2017 classification ([facility]) Take 2 Tablets by mouth in the morning. Rescue kit. Use only as instructed. 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 Jardiance) Remote Patient Monitoring Vendor: [facility] [place] Device(s): Connected Scale Continuous [...] Classes - JULIA Class D - Inhaled Tudhcqsuzkxatt-XTFQ-XIGJ Combination Inhaler (Sandro) Remote Patient Monitoring Vendor: [facility] Device(s): Continuous Monitoring Device Traditional Scale Self-Management plan High frequency nebulizer treatments every 4-6 hours around the clock Exacerbation plan Chest Xray Additional Comments: On continuous o2 2-3lpm Bipap at night Body mass index (BMI) of 40. 0 to 44.9 in adult 07/08/2023 07/09/2024 Overview: Per Obesity protocol Atherosclerosis of [place] co 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 pectoris 07/05/2023 [...] 07/17/2024 Does the household have a re gular [...] encounter Miscellaneous Notes * Telephone Encounter - Nataliya Erazo, PORCELAIN ENAMEL LABORER - 07/17/2024 4:00 PM EDT Worker was consulted by Diana PLOANCOtearer Community resources Chart was reviewed. This interview was conducted over the phone with Bala. There are no food insecurities at this time. Bala shared that Maira >ANUJ is going back to work. He is looking for someone to provide personal care services. 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 Presently their office is closed. Bala is aware he will need to supply his financial statements. Bala offered no other complaints or concerns at this time. Fall precautions were stressed. No falls were recently reported. Emotional Support was offered. Bala was encouraged to contact the [facility] Team with any questions or concerns . Phone number for [facility] was provided . Worker provided contact number [phone] for any follow up needed. Nataliya Erazo LCSW [facility] Amusement Park Ride Mechanic [facility] [phone] documented in this encounter Plan of Treatment Upcoming Encounters Date Type Department Care Team (Late st Contact Info) Description 07/20/2024 10:30 AM EDT Scheduled Telephone [facility], [facility] [address] [facility] [place] [address] Nataliya Erazo LCSW [address] [facility] [place] [address] 07/27/2024 7:10 AM EDT Laboratory Lab Mobile Phlebotomy [facility] [address] [place] [address] [facility], G[facility] Mobile Home Draw [address] [place] [address] 07/27/2024 2:15 PM EDT Office Visit Interventional Pain Center, [facility] 132 [facility] [place] [address] Gely Gilmore MD [address] [place] [address] [place] [address] 07/28/2024 6:00 AM EDT Anticoagulation Centralized Clinical Pharmacy Services, [facility] [address] [place] [address] [place] [address] [facility] [address] [place] [address] 08/03/2024 3:00 PM EDT Office Visit Orthopaedics [facility] [address] [place] [address] Cm Dawson, DO [address] [place] [address] 08/10/2024 12:20 PM EDT Office Visit Family [facility], [place] [address] [place] [phone] Charley Crane MD [address] [place] [address] 09/02/2024 3:00 PM EST Office Visit Sleep Disorders Ctr [facility] [address] [place] [phone] Audrey Lee, DO [address] [place] [address] Health Maintenance Due Date Last Done Comments Alpha-1 Antitrypsin 1974 CKD PHOS USE SMARTSET 79229 1974 DTap/Tdap Vaccines (1 - Tdap) 1975 Cologuard 2001 Colonoscopy 2001 Colorectal Cancer Screening 2001 Fecal Occult Blood Test 2001 Sigmoidoscopy 2001 AAA Screening 2021 COVID-19 Vaccine (2023- season) 2024 Influenza Vaccine (FLU shot) (#1) 2024 07/05/2023, 07/05/2023 GFR 12/16/2024 06/15/2024, 0811/2023, 05/27/2024, Additional history exists HbA1c 12/16/2024 06/15/2024, 01/26, 06/21/2023 Adult Wellness Visit 02/09/2025 02/10/2024 Albumin/Creatinine Ratio 02/09/2025 02/10/2024 Depression Screening 02/09/2025 02/10/2024 Diabetic Eye Exam 04/28/2025 04/28/2024, , 09/09/2023 CKD HGB USE SMARTSET 64865 06/15/202506/15, 06/15/2024, 05/27/2024, Additional history exists Diabetic [...] filedocumented as of this encounter Care Teams Concrete Foreman Relationship Specialty Start Date End Date Charley Crane MD [address] [place] [address] PCP - General Internal Medicine 06/04/23 documented as of this encounter
--- OUTSIDE RECORDS SUMMARY | 2024-07-21 01:53 | External Medical Summary | Summary of Care ---
Author Name Unknown Organization [facility] Address [address] [facility] [address] Phone [phone] Care Team Providers Care Basket Sorter Name Role Phone Charley Crane MD Primary Care Provider [phone] Reason for Visit * Reason Comments Dosage Adjustment Via Phone (anticoag Cl inic) Encounter Details Date Type Department Care Team (Late st Contact Info) Description 07/17/2024 6:00 AM EDT Anticoagulation Centralized Clinical Pharmacy Services, Oscar Peace [address] [place] [address] [place] [address] [facility], [address] [place] [address] USP current use of anticoagulant therapy*; Longstanding persistent atrial fibrillation (HCC); History of deep venous thrombosis (DVT) of distal vein of left lower extremity Allergies No known active allergiesdocumented as of [...] rescue kit. 20 Capsule 4 Active Nystatin 303535 UNIT/GM External Cream Apply topically to affected area 2 times a day. Continue until resolved 30 g 2 4 Active predniSONE 20 MG Oral Tablet (Deltasone)Indicati ons:COPD, group D, by GOLD 2017 classification ([facility]) Take 2 Tablets by mouth in the morning. Rescue kit. Use only as instructed. 10 Tablet 4 Active Doxycycline Hyclate 100 MG Oral CapsuleIndications: COPD, group D, by GOLD 2017 classification ([facility]) Take 1 Capsule by mouth in [...] classification 11/04 Overview: Per COPD GOLD Classification manager terminal current use of anticoagulant therapy 0 2023 Longstanding persistent atrial fibrillation 06/29 Last Assessment & Plan: Rate controlled Continue coumadin Hypertension goal BP (blood pressure) < 130/80 0 07/17/2023 Dyslipidemia, goal LDL below 70 07/17/2023 Atherosclerosis of [place] co 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 pectoris 07/05/2023 [...] Remote Patient Monitoring Vendor[place] [facility] [place]s): Connected Scale Continuous Monitoring [...] Classes - JULIA Class D - Inhaled Habapxjaxewxdc-BRKO-ZRJO Combination Inhaler (Sandro) Remote Patient Monitoring Vendor: [facility] Device(s): Continuous Monitoring Device Traditional Scale Self-Management plan High frequency nebulizer treatments every 4-6 hours around the clock Exacerbation plan Chest Xray Additional Comments: On continuous o2 2-3lpm Bipap at night Body mass index (BMI) of 40. 0 to 44.9 in adult 07/08/2023 07/09/2024 Overview: Per Obesity protocol Atherosclerosis of campo co 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 pectoris 07/05/2023 [...] on file documented as of this encounter Progress Notes * Kristina Faust, pr manager - 07/17/2024 9:38 AM EDT Contacts Contact Date/Time Type Contact Phone/Fax 07/17/2024 09:37 AM EDT Phone (Outgoing) Bala Coronado Jr. (Self) [phone] (M) Left Message Subjective Advised patient to contact Anticoagulation Clinic if any unusual bruising or bleeding, recent illness, changes in medication, or questions/concerns. PT/INR results, Coumadin dose instructions, and next PT/INR date communicated as noted by Pharmacist: AMANDO Lundy 07/17/2024, 9:38 AM * Isabel Li RPh - 07/17/2024 6:57 AM EDT Images from the original note were not included. Coumadin Clinic (region specific) Objective Current Warfarin Dose As of 07/17/2024 Warfarin maintenance plan: 10 mg (10 mg x 1) every Mon, Wed, Fri; 15 mg (10 mg x 1.5) all other days INR Result As of 07/17/2024 INR goal: 2.0-3.0 INR used for dosin.9 (07/16/2024) Assessment & Plan Warfarin Plan As of 07/17/2024 Full warfarin instructions: 07/17: Hold; Otherwise 10 mg every Mon, Wed, Fri; 15 mg all other days Next INR check: 07/27/2024 Repeat PT/INR in 1.5 week(s) Weekly dose: not changed Additional Dosing Information: Description [facility] Pill packs from [facility] - Warfarin NOT included Tech to contact patient with dose instructions as noted. Isabel Li RPh 07/17/2024, 6:58 AM documented in this encounter Plan of Treatment Upcoming Encounters Date Type Department Care Team (Late st Contact Info) Description 07/27/2024 2:15 PM EDT Office Visit [facility], [address] [place] [address] Gely Gilmore MD [address] [place] [address] [place] [address] 08/03/2024 3:00 PM EDT Office Visit Orthopaedics [facility] [address] [place] [address] Cm Dawson, DO [address] [place] [address] 08/10/2024 12:20 PM EDT [facility] [address] [facility] [phone] Charley Crane [facility] [address] [facility] [facility] [address] 09/02/2024 3:00 PM EST Office Visit Sleep Disorders Ctr [facility] [address] [place] [phone] Audrey Lee, DO [address] [place] [address] Health Maintenance Due Date Last Done Comments Alpha-1 Antitrypsin 1974 CKD PHOS USE SMARTSET 31201 1974 DTap/Tdap Vaccines (1 - Tdap) 1975 [...] 04/28/2024, , 09/09/2023 CKD HGB USE SMARTSET 49539 06/15/202506/15, 06/15/2024, 05/27/2024, Additional history exists Diabetic [...] as of this encounter Visit Diagnoses Diagnosis manager terminal current use of anticoagulant therapy- Primary Longstanding persistent atrial fibrillation (HCC) History of deep venous thrombosis (DVT) of distal vein of left lower extremity documented in this encounter Care Teams Basket Sorter Relationship Specialty Start Date End Date Charley Crane MD [address] [place] [address] PCP - General Internal Medicine 06/04/23 documented as of this encounter
--- OUTSIDE RECORDS SUMMARY | 2024-07-21 01:54 | External Medical Summary ---
Author Name Unknown Address Unknown Organization K0G[facility] [address] [place] [address] Laboratory Report Ordering Provider Test Date Status SPIKE BRICEÑO 07/16/2024 09:20:00 Final Standing order for pt/inr. < br/>Please draw pt/inr every 1 to 4 weeks as requested
Results to [facility]

Warfarin Therapy
INR: 2.0-3.0 conventional anticoagulation
INR: 2.5-3.5 high intensity anticoagulation Observation Date Value Abnormality Reference (Units ) Status PT 07/16/2024 09:20:00 39.1 Above high normal 11 .6-15.2 (seconds) Final Results rechecked. INR 07/16/2024 09:20:00 3.9 Above high normal 0. 8-1.2 Final Results rechecked. Performing Location [facility] [address] [place] [address]
--- OUTSIDE RECORDS SUMMARY | 2024-07-21 01:54 | External Medical Summary | Summary of Care ---
Author Name Unknown Organization [facility] Address [address] [place] [address] Phone [phone] Care Team Providers Care Inside Sales Account Representative Name Role Phone Charley Crane MD Primary Care Provider [phone] Encounter Details Date Type Department Care Team (Late st Contact Info) Description 07/13/2024 Telephone Orthopaedics [facility] [address] [facility] [place] [address] Cm Dawson, DO [address] [facility] [place] [address] Allergies No known active allergiesdocumented as of this encounter (statuses as of 07/16/2024) Medications Medication Sig Dispensed Refills Start Date [...] rescue kit. 20 Capsule 4 Active Nystatin 571965 UNIT/GM External Cream Apply topically to affected [...] as of this encounter (statuses as of 07/16/2024) Active Problems Problem Noted Date Diagnosed Date [...] classification 11/04 Overview: Per COPD GOLD Classification senior care current use of anticoagulant therapy 0 2023 Longstanding persistent atrial fibrillation 06/29 Last Assessment & Plan: Rate controlled Continue coumadin Hypertension goal BP (blood pressure) < 130/80 0 07/17/2023 Dyslipidemia, goal LDL below 70 07/17/2023 Atherosclerosis of [place] co 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 pectoris [...] empagliflozin (ex. Jardiance) Remote Patient Monitoring Vendor[place] [facility] [place] Device(s): [...] as of this encounter (statuses as of 07/16/2024) Resolved Problems Problem Noted Date Diagnosed Date [...] Classes - JULIA Class D - Inhaled Rdqgpzldrueypq-DJEK-AMGH Combination Inhaler (Sandro) Remote Patient Monitoring Vendor: [facility] Device(s): Continuous Monitoring Device Traditional Scale Self-Management plan High frequency nebulizer treatments every 4-6 hours around the clock Exacerbation plan Chest Xray Additional Comments: On continuous o2 2-3lpm Bipap at night Body mass index (BMI) of 40. 0 to 44.9 in adult 07/08/2023 07/09/2024 Overview: Per Obesity protocol Atherosclerosis of [place] co 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 pectoris [...] as of this encounter (statuses as of 07/16/2024) Immunizations Name Administration Dates Next Due Pneumococcal [...] No 02/10/2024 Does the household have a [place] medical [place] source of income? (Household - for ages [...] encounter Miscellaneous Notes * Telephone Encounter - Gena Jordan LPN [...] Pt Pt called and would like Steffanie amortis to give him a call would like to get some tests done documented in this encounter Plan of Treatment Upcoming Encounters Date Type Department Care Team (Late st Contact Info) Description 07/17/2024 6:00 AM EDT Anticoagulation Centralized Clinical Pharmacy Services, Oscar Peace [address] [place] [address] [place] [address] [facility], [address] [place] [address] 07/27/2024 2:15 PM EDT Office Visit Interventional [facility] Center, [facility] 132 [facility] [place] [address] Gely Gilmore MD [address] [place] [address] 08/03/2024 3:00 PM EDT Office Visit Orthopaedics [facility] 132 [facility] [place] [address] Cm Dawson, 132 [facility] [place] [address] 08/10/2024 12:20 PM EDT Office Visit [facility] [address] [place] [phone] Charley Crane MD [address] [facility] [place] [address] 09/02/2024 3:00 PM EST Office Visit Sleep Disorders Ctr [facility] 132 [facility] [place] [phone] Audrey Lee, DO [address] [place] [address] Health Maintenance Due Date Last Done Comments Alpha-1 Antitrypsin 1974 CKD PHOS USE SMARTSET 25255 1974 DTap/Tdap Vaccines (1 - Tdap) 1975 [...] 04/28/2024, , 09/09/2023 CKD HGB USE SMARTSET 59125 06/15/202506/15, 06/15/2024, 05/27/2024, Additional history exists Diabetic [...] filedocumented as of this encounter Care Teams Inside Sales Account Representative Relationship Specialty Start Date End Date Charley Crane MD [address] [place] [address] PCP - General Internal Medicine 06/04/23 documented as of this encounter
--- OUTSIDE RECORDS SUMMARY | 2024-07-21 01:54 | External Medical Summary | Summary of Care ---
Author Name Unknown Organization [facility] Address [address] [place] [address] Phone [phone] Care Team Providers Care Visitor Services Information Assistant Name Role Phone Charley Crane MD Primary Care Provider Reason for Visit * Reason Onset Date Comments [facility]: Maintenance 07/14/2024 Encounter Details Date Type Department Care Team (Late st Contact Info) Description 07/14/2024 Telephone [facility], [facility] [address] [facility] [place] [address] Monserrat Gregory RN [address] [place] [address] [facility]: Maintenance Allergies No known active allergiesdocumented as of this encounter (statuses as of 07/14/2024) Medications Medication Sig Dispensed Refills Start Date [...] rescue kit. 20 Capsule 4 Active Nystatin 923465 UNIT/GM External Cream Apply topically to affected area 2 times a day. Continue until resolved 30 g 2 4 Active predniSONE 20 MG Oral Tablet (Deltasone)Indicati ons:COPD, group D, by GOLD 2017 classification ([facility]) Take 2 Tablets by mouth in the morning. Rescue kit. Use only as instructed. 10 Tablet 4 Active Doxycycline Hyclate 100 MG Oral CapsuleIndications: COPD, group D, by GOLD 2017 classification ([facility]) Take 1 Capsule by mouth in the morning and 1 Capsule before bedtime. Rescue kit. Use only as instructed. 20 Capsule 4 Active documented as of this encounter (statuses as of 07/14/2024) Active Problems Problem Noted Date Diagnosed Date [...] classification 11/04 Overview: Per COPD GOLD Classification director long term care current use of anticoagulant therapy 0 2023 Longstanding persistent atrial fibrillation 06/29 Last Assessment & Plan: Rate controlled Continue coumadin Hypertension goal BP (blood pressure) < 130/80 0 07/17/2023 Dyslipidemia, goal LDL below 70 07/17/2023 Atherosclerosis of [place] co 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 Jardiance) Remote Patient Monitoring Vendor: [facility] [place] Device(s): Connected Scale Continuous Monitoring Device Self [...] as of this encounter (statuses as of 07/14/2024) Resolved Problems Problem Noted Date Diagnosed Date [...] Classes - JULIA Class D - Inhaled Mjtdhqwzjpxpeq-ONRB-SOUZ Combination Inhaler (Sandro) Remote Patient Monitoring Vendor: [facility] Device(s): Continuous Monitoring Device Traditional Scale Self-Management plan High frequency nebulizer treatments every 4-6 hours around the clock Exacerbation plan Chest Xray Additional Comments: On continuous o2 2-3lpm Bipap at night Body mass index (BMI) of 40. 0 to 44.9 in adult 07/08/2023 07/09/2024 Overview: Per Obesity protocol Atherosclerosis of [place] co 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 pectoris 07/05/2023 08/29/2023 Dyspnea 07/04/2023 08/13/2023 Occupational exposure in workplace 07/04/2023 02/14/2024 Chronic congestive heart failure 06/08/2023 07/05/2023 COPD, severe 06/08/2023 07/11/2023 Overview: Per COPD GOLD Classification Chronic hypoxemic respiratory failure 06/08/2023 07/04/2023 Chronic respiratory failure with hypoxia, on home oxygen therapy 06/08/2023 08/29/2023 Diabetes mellitus without complication 06/08/2023 08/29/2023 documented as of this encounter (statuses as of 07/14/2024) Immunizations Name Administration Dates Next Due Pneumococcal [...] encounter Miscellaneous Notes * Telephone Encounter - Monserrat Gregory RN - 07/14/2024 4:12 PM EDT Phone call from patient returning call from this past weekend stating he has completed his rescue kit, reports feeling better, breathing has improved, swelling to BLE's is improving. Wears 2.5 lpm ofO2 at all times. BP was 120/63- 67, Pulse ox is 95%. Routed to care team. YARIEL Gregory Registered Nurse Navigator Triage [facility] documented in this encounter Plan of Treatment Upcoming Encounters Date Type Department Care Team (Late st Contact Info) Description 07/16/2024 7:05 AM EDT Laboratory Lab Mobile [facility] [address] [facility] [address] [facility] Mobile Home Draw [address] [employer] [facility] [place] [address] 07/17/2024 6:00 AM EDT Anticoagulation Centralized Clinical Pharmacy Services, Oscar Peace [address] [place] [address] [place] [address] [place] [address] 07/27/2024 2:15 PM EDT Office Visit [facility], [facility] [address] [facility] [address] Gely Gilmore MD [address] [place] [address] 08/03/2024 3:00 PM EDT Office Visit Orthopaedics [facility] [address] [place] [address] Cm Dawson, 132 [place] [address] 08/10/2024 12:20 PM EDT Office Visit [facility] [address] [place] [phone] Charley Crane MD [address] [place] [address] 09/02/2024 3:00 PM EST Office Visit [facility] Disorders Ctr [facility] [address] [place] [phone] Audrey Lee, DO [address] [place] [address] Health Maintenance Due Date Last Done Comments Alpha-1 Antitrypsin 1974 CKD PHOS USE SMARTSET 57356 1974 DTap/Tdap Vaccines (1 - Tdap) 1975 [...] 04/28/2024, , 09/09/2023 CKD HGB USE SMARTSET 75374 06/15/202506/15, 06/15/2024, 05/27/2024, Additional history exists Diabetic [...] filedocumented as of this encounter Care Teams Visitor Services Information Assistant Relationship Specialty Start Date End Date Charley Crane MD [address] [facility] [place] [address] PCP - General Internal Medicine 06/04/23 documented as of this encounter
--- OUTSIDE RECORDS SUMMARY | 2024-07-21 01:54 | External Medical Summary | Summary of Care ---
Author Name Unknown Organization [facility] Address [address] [place] [facility] [place] [address] Phone [phone] Care Team Providers Care Municipal Firefighter Name Role Phone Charley Crane MD Primary Care Provider [phone] Reason for Visit * Reason Onset Date Comments [facility]: Maintenance 07/11/2024 Encounter Details Date Type Department Care Team (Late st Contact Info) Description 07/11/2024 11:30 AM EDT Scheduled Telephone [facility], [facility] [address] [place] [address] [facility], Nurse [facility] [address] [place] [address] Allergies No known active allergiesdocumented as of this encounter (statuses as of 07/11/2024) Medications Medication Sig Dispensed Refills Start Date [...] rescue kit. 20 Capsule 4 Active Nystatin 484710 UNIT/GM External Cream Apply topically to affected area 2 times a day. Continue until resolved 30 g 2 4 Active predniSONE 20 MG Oral Tablet (Deltasone)Indicati ons:COPD, group D, by GOLD 2017 classification ([facility]) Take 2 Tablets by mouth in the morning. Rescue kit. Use only as instructed. 10 Tablet 4 Active Doxycycline Hyclate 100 MG Oral CapsuleIndications: COPD, group D, by GOLD 2017 classification ([facility]) Take 1 Capsule by mouth in the morning and 1 Capsule before bedtime. Rescue kit. Use only as instructed. 20 Capsule 4 Active documented as of this encounter (statuses as of 07/11/2024) Active Problems Problem Noted Date Diagnosed Date [...] classification 11/04 Overview: Per COPD GOLD Classification terminal carman current use of anticoagulant therapy 0 2023 Longstanding persistent atrial fibrillation 06/29 Last Assessment & Plan: Rate controlled Continue coumadin Hypertension goal BP (blood pressure) < 130/80 0 07/17/2023 Dyslipidemia, goal LDL below 70 07/17/2023 Atherosclerosis of nikolai co 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 Jardiance) Remote Patient Monitoring Vendor: [facility] [place] Device(s): Connected Scale Continuous Monitoring [...] as of this encounter (statuses as of 07/11/2024) Resolved Problems Problem Noted Date Diagnosed Date [...] Classes - JULIA Class D - Inhaled Vcjstayxztgaps-MQWJ-OPQC Combination Inhaler (Sandro) Remote Patient Monitoring Vendor: [facility] Device(s): Continuous Monitoring Device Traditional Scale Self-Management plan High frequency nebulizer treatments every 4-6 hours around the clock Exacerbation plan Chest Xray Additional Comments: On continuous o2 2-3lpm Bipap at night Body mass index (BMI) of 40. 0 to 44.9 in adult 07/08/2023 07/09/2024 Overview: Per Obesity protocol Atherosclerosis of nikolai co 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 pectoris 07/05/2023 08/29/2023 Dyspnea 07/04/2023 08/13/2023 Occupational exposure in workplace 07/04/2023 02/14/2024 Chronic congestive heart failure 06/08/2023 07/05/2023 COPD, severe 06/08/2023 07/11/2023 Overview: Per COPD GOLD Classification Chronic hypoxemic respiratory failure 06/08/2023 07/04/2023 Chronic respiratory failure with hypoxia, on home oxygen therapy 06/08/2023 08/29/2023 Diabetes mellitus without complication 06/08/2023 08/29/2023 documented as of this encounter (statuses as of 07/11/2024) Immunizations Name Administration Dates Next Due Pneumococcal [...] Telephone Encounter - Monserrat Gregory RN - 07/11/2024 10:51 AM EDT Images from the original note were not included. [facility] Telephonic Nurse Follow-Up Call [facility] Subprogram: Primary Care at Home Follow Up Call Type: Weekend Call Acute issue requiring follow-up call: Acute Exacerbation of COPD, completion of rescue kit Objective: 07/09/2024 9:34 AM 07/01/2024 9:18 AM 06/18/2024 4:24 PM 06/15/2024 1:54 PM 06/03/2024 1:39 PM VITALS ACROSS ENCOUNTERS BP 102/54 122/84 126/72 122/76 112/64 Pulse 50 63 75 76 68 Weight 142.4 kg 135.6 kg BMI 49.18 kg/m2 46.83 kg/m2 Remote Patient Monitoring: NONE Oxygen Needs: NO CHANGE from baseline supplemental oxygen needs DME Needs: Nebulizer machine and supplies Medications: No medication or dose adjustments made during acute episode Subjective: Condition Status: Improvement in symptoms but not at baseline Current Concerns: Spoke with Bala, breathing has improved, was able to cough up a lot of mucous, has 2 more days of abx left, no fever/chills, no SOB no BERRY, no headache, no sore throat, swelling is decreasing in BLE's Disposition: Routed to [facility] and/or [facility] Care Team for further advice and Follow up call scheduled for tomorrow with BRANCH SERVICE SPECIALIST Forest Nursery Supervisor Future Visits Scheduled: Future Appointments-next 60 days Date/Time Provider Specialty Dept Phone 07/11/2024 11:30 AM [facility], Nurse [facility] at Home [phone] 07/16/2024 7:05 AM [facility], [facility] Mobile Home Draw Laboratory Processing [phone] 07/17/2024 6:00 AM [facility] [phone] 07/27/2024 2:15 PM (Arrive by 2:00 PM) Gely Gilmore MD Pain Medicine [phone] 08/03/2024 3:00 PM (Arrive by 2:45 PM) Cm Dawson DO Orthopedics [phone] 08/10/2024 12:20 PM (Arrive by 12:05 PM) Charley Crane MD Family Medicine [phone] 09/02/2024 3:00 PM (Arrive by 2:45 PM) Audrey Lee DO Sleep Disorders [phone] Monserrat Gregory RN documented in this encounter Plan of Treatment Upcoming Encounters Date Type Department Care Team (Late st Contact Info) Description 07/12/2024 9:45 AM EDT Scheduled Telephone [facility], [facility] 132 [facility] [place] [address] Region, Nurse [facility] [place] [address] 07/16/2024 7:05 AM EDT Laboratory Lab Mobile Phlebotomy [facility] [address] [employer] [place] [address] [facility], G[facility] Mobile Home Draw [address] [employer] [place] [address] 07/17/2024 6:00 AM EDT Anticoagulation Centralized Clinical Pharmacy Services, Oscar Peace [address] [place] [address] [place] [address] [facility], [address] [place] [address] 07/27/2024 2:15 PM EDT Office Visit [facility] Center, [facility] 132 [facility] [place] [address] Gely Gilmore MD [address] [place] [address] 08/03/2024 3:00 PM EDT Office Visit Orthopaedics [facility] 132 [facility] [place] [address] Cm Dawson, 132 [facility] [place] [address] 08/10/2024 12:20 PM EDT Office Visit [address] [phone] Charley Crane MD [address] [place] [address] 09/02/2024 3:00 PM EST Office Visit [facility] Disorders Ctr [facility] [address] [place] [phone] Audrey Lee, [address] [place] [address] Health Maintenance Due Date Last Done Comments Alpha-1 Antitrypsin 1974 CKD PHOS USE SMARTSET 47761 1974 DTap/Tdap Vaccines (1 - Tdap) 1975 [...] 04/28/2024, , 09/09/2023 CKD HGB USE SMARTSET 30604 06/15/202506/15, 06/15/2024, 05/27/2024, Additional history exists Diabetic [...] filedocumented as of this encounter Care Teams Municipal Firefighter Relationship Specialty Start Date End Date Charley Crane MD [address] [place] [address] PCP - General Internal Medicine 06/04/23 documented as of this encounter
--- OUTSIDE RECORDS SUMMARY | 2024-07-21 01:54 | External Medical Summary | Summary of Care ---
Author Name Unknown Organization [facility] Address [address] [place] [address] Phone [phone] Care Team Providers Care Hospice Care Sales Consultant Name Role Phone Charley Crane MD Primary Care Provider [phone] Reason for Visit * Reason Onset Date Comments Follow Up 07/12/2024 Encounter Details Date Type Department Care Team (Late st Contact Info) Description 07/12/2024 9:45 AM EDT Scheduled Telephone [facility], [facility] [address] [place] [address] [facility], Nurse [facility] [address] [place] [address] Allergies No known active allergiesdocumented as of this encounter (statuses as of 07/12/2024) Medications Medication Sig Dispensed Refills Start Date [...] rescue kit. 20 Capsule 4 Active Nystatin 522875 UNIT/GM External Cream Apply topically to affected area 2 times a day. Continue until resolved 30 g 2 4 Active predniSONE 20 MG Oral Tablet (Deltasone)Indicati ons:COPD, group D, by GOLD 2017 classification ([facility]) Take 2 Tablets by mouth in the morning. Rescue kit. Use only as instructed. 10 Tablet 4 Active Doxycycline Hyclate 100 MG Oral CapsuleIndications: COPD, group D, by GOLD 2017 classification ([facility]) Take 1 Capsule by mouth in the morning and 1 Capsule before bedtime. Rescue kit. Use only as instructed. 20 Capsule 4 Active documented as of this encounter (statuses as of 07/12/2024) Active Problems Problem Noted Date Diagnosed Date Stage 3 chronic kidney disease 06/15/2024 Hypertensive heart disease w ith chronic diastolic congestive heart failure 06/15/2024 Last Assessment & Plan: "RED FLAG" HF Symptoms: Leg Swelling Abdominal Bloating Increased dyspnea on exertion Medication Regimen: Beta Laureano Therapy: Carvedilol ANEGL Inhibitor/ARB Therapy: Enalapril Diuretic therapy: Torsemide Aldactone [...] goal LDL below 70 07/17/2023 Atherosclerosis of [place] co 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 Jardiance) Remote Patient Monitoring Vendor: [facility] Device(s): Connected Scale Continuous Monitoring Device Self [...] as of this encounter (statuses as of 07/12/2024) Resolved Problems Problem Noted Date Diagnosed Date [...] Classes - JULIA Class D - Inhaled Lgtplodfidjmjm-VWBQ-IKVR Combination Inhaler (Jhonyegy) Remote Patient Monitoring Vendor: [facility] Device(s): Continuous Monitoring Device Traditional Scale Self-Management plan High frequency nebulizer treatments every 4-6 hours around the clock Exacerbation plan Chest Xray Additional Comments: On continuous o2 2-3lpm Bipap at night Body mass index (BMI) of 40. 0 to 44.9 in adult 07/08/2023 07/09/2024 Overview: Per Obesity protocol Atherosclerosis of [place] co 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 pectoris 07/05/2023 08/29/2023 Dyspnea 07/04/2023 08/13/2023 Occupational exposure in workplace 07/04/2023 02/14/2024 Chronic congestive heart failure 06/08/2023 07/05/2023 COPD, severe 06/08/2023 07/11/2023 Overview: Per COPD GOLD Classification Chronic hypoxemic respiratory failure 06/08/2023 07/04/2023 Chronic respiratory failure with hypoxia, on home oxygen therapy 06/08/2023 08/29/2023 Diabetes mellitus without complication 06/08/2023 08/29/2023 documented as of this encounter (statuses as of 07/12/2024) Immunizations Name Administration Dates Next Due Pneumococcal Conjugate Vaccine, 20-valent (Prevn ar20) 07/05/2023 Seasonal Influenza, Quadrivalent Hd (Fluzone Hd) 07/05/2023 Zoster Vaccine Recombinant (Shingrix) 04/13/2024 ,12/02/2023 documented as of this encounter Social History Tobacco Use Types Packs/Day Years Used Date Smoking Tobacco: Former Cigarettes 1 - 2012 Passive Smoke Exposure: Past Smokeless Tobacco: [...] encounter Miscellaneous Notes * Telephone Encounter - Nandini Bob RN - 07/12/2024 9:36 AM EDT Phone call to patient. No answer. Voicemail left leaving detailed message. Provided [phone] for returncall. documented in this encounter Plan of Treatment Upcoming Encounters Date Type Department Care Team (Late st Contact Info) Description 07/16/2024 7:05 AM EDT Laboratory Lab Mobile Phlebotomy [facility] [address] [facility] [place] [address] [facility], Gml Mobile Home Draw [address] [facility] [place] [address] 07/17/2024 6:00 AM EDT Anticoagulation Centralized Clinical Pharmacy Services, [facility] Peace [address] [place] [address] [place] [address] [facility], [address] [place] [address] 07/27/2024 2:15 PM EDT Office Visit Interventional Pain Center, [facility] [address] [facility] [place] [address] Gely Gilmore MD [address] [place] [address] 08/03/2024 3:00 PM EDT Office Visit Orthopaedics [facility] [address] [facility] [place] [address] Cm Dawson, DO 132 [facility] [place] [address] 08/10/2024 12:20 PM EDT Office Visit [facility] [address] [place] [phone] Charley Crane MD [address] [place] [address] 09/02/2024 3:00 PM EST Office Visit Sleep Disorders Ctr [facility] [address] [facility] [place] [phone] Audrey Lee, DO [address] [place] [address] Health Maintenance Due Date Last Done Comments Alpha-1 Antitrypsin 1974 CKD PHOS USE SMARTSET 65925 1974 DTap/Tdap Vaccines (1 - Tdap) 1975 [...] 04/28/2024, , 09/09/2023 CKD HGB USE SMARTSET 93892 06/15/202506/15, 06/15/2024, 05/27/2024, Additional history exists Diabetic [...] filedocumented as of this encounter Care Teams Hospice Care Sales Consultant Relationship Specialty Start Date End Date Charley Crane MD [address] [place] [address] PCP - General Internal Medicine 06/04/23 documented as of this encounter
--- OUTSIDE RECORDS SUMMARY | 2024-07-21 01:54 | External Medical Summary | Summary of Care ---
Author Name Unknown Organization [facility] Address [address] [place] [address] Phone [phone] Care Team Providers Care Group Account Director Name Role Phone Charley Crane MD Primary Care Provider [phone] Reason for Visit * Reason Onset Date Comments [facility]: Maintenance 07/16/2024 Encounter Details Date Type Department Care Team (Late st Contact Info) Description 07/16/2024 Telephone [facility], [facility] [address] [place] [address] Isabel Marquez RN [address] [place] [address] [facility]: Maintenance Allergies No known [...] rescue kit. 20 Capsule 4 Active Nystatin 910475 UNIT/GM External Cream Apply topically to affected area 2 times a day. Continue until resolved 30 g 2 4 Active predniSONE 20 MG Oral Tablet (Deltasone)Indicati ons:COPD, group D, by GOLD 2017 classification ([facility]) Take 2 Tablets by mouth in the morning. Rescue kit. Use only as instructed. 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 Jardiance) Remote Patient Monitoring Vendor: [facility] Device(s): Connected Scale Continuous Monitoring Device Self [...] Classes - JULIA Class D - Inhaled Msacsfbgtwukot-EHSU-DFZN Combination Inhaler (Sandro) Remote Patient Monitoring Vendor: [facility] Device(s): Continuous Monitoring Device Traditional Scale Self-Management plan High frequency nebulizer treatments every 4-6 hours around the clock Exacerbation plan Chest Xray Additional Comments: On continuous o2 2-3lpm Bipap at night Body mass index (BMI) of 40. 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 (Household - for ages [...] encounter Miscellaneous Notes * Telephone Encounter - Isabel Marquez RN - 07/16/2024 11:10 AM EDT Incoming call received from patient asking what to do for his ongoing weakness and difficulty managing his own personal care. States that he is having trouble completing his own personal care and cleaning his "bottom" and is afraid his skin is going to get sore. Patient currently has [facility] physical therapy. Agreeable to OT and home health aide if one is available. Follow up call to agency. Spoke with Karina who states that per notes, OT discharged patient after 2 visits on 06/11 and PT who is currently still active plans to see and dc next week with [facility]. She believes per notes, that patient has met his optimal level of function and he is custodialcare rather than skilled care. Routing to [facility], [facility] to see what other options there may be. documented in this encounter Plan of Treatment Upcoming Encounters Date Type Department Care Team (Late st Contact Info) Description 07/17/2024 6:00 AM EDT Anticoagulation Centralized Clinical Pharmacy Services, Oscarronan Peace [address] [place] [address] [place] [address] [place] [address] 07/27/2024 2:15 PM EDT Office Visit Interventional Pain Center, [facility] [address] [place] [address] Gely Gilmore MD [address] [place] [address] 08/03/2024 3:00 PM EDT Office Visit Orthopaedics [facility] [address] [place] [address] Cm Dawson, 132 [facility] [address] 08/10/2024 12:20 PM EDT Office Visit [address] [place] [phone] Charley Crane MD [address] [place] [address] 09/02/2024 3:00 PM EST Office Visit Sleep Disorders Ctr [facility] [address] [place] [address] Audrey Lee, [address] [place] [address] Health Maintenance Due Date Last Done Comments Alpha-1 Antitrypsin 1974 CKD PHOS USE SMARTSET 51119 1974 DTap/Tdap Vaccines (1 - Tdap) 1975 [...] 04/28/2024, , 09/09/2023 CKD HGB USE SMARTSET 97255 06/15/202506/15, 06/15/2024, 05/27/2024, Additional history exists Diabetic [...] filedocumented as of this encounter Care Teams Group Account Director Relationship Specialty Start Date End Date Charley Crane MD [address] [place] [address] PCP - General Internal Medicine 06/04/23 documented as of this encounter
--- OUTSIDE RECORDS SUMMARY | 2024-07-21 01:54 | External Medical Summary | Summary of Care ---
Author Name Unknown Organization [facility] Address [address] [place] [address] Phone [phone] Care Team Providers Care Corporate Development Intern Name Role Phone Charley Crane MD Primary Care Provider [phone] Encounter Details Date Type Department Care Team (Late st Contact Info) Description 07/13/2024 Telephone Orthopaedics [facility] [address] [facility] [place] [address] Cm Dawson, DO [address] [facility] [place] [address] Allergies No known active allergiesdocumented as of [...] rescue kit. 20 Capsule 4 Active Nystatin 545220 UNIT/GM External Cream Apply topically to affected [...] classification 11/04 Overview: Per COPD GOLD Classification skilled nursing current use of anticoagulant therapy 0 2023 Longstanding persistent atrial fibrillation 06/29 Last Assessment & Plan: Rate controlled Continue coumadin Hypertension goal BP (blood pressure) < 130/80 0 07/17/2023 Dyslipidemia, goal LDL below 70 07/17/2023 Atherosclerosis of [place] co 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 Jardiance) Remote Patient Monitoring Vendor: [facility] Device(s): Connected [...] Classes - JULIA Class D - Inhaled Fzxuayzhfkduas-EURQ-BGCX Combination Inhaler (Sandro) Remote Patient Monitoring Vendor: [facility] Device(s): Continuous Monitoring Device Traditional Scale Self-Management plan High frequency nebulizer treatments every 4-6 hours around the clock Exacerbation plan Chest Xray Additional Comments: On continuous o2 2-3lpm Bipap at night Body mass index (BMI) of 40. 0 to 44.9 in adult 07/08/2023 07/09/2024 Overview: Per Obesity protocol Atherosclerosis of [place] co 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 pectoris 07/05/2023 [...] No 02/10/2024 Does the household have a [facility] source of income? (Household - [...] Anticoagulation Centralized Clinical Pharmacy Services, Oscar Peace [address] [place] [address] [place] [address] [facility] [place] [address] 07/27/2024 2:15 PM EDT Office Visit Interventional Pain Center, [facility] 132 [facility] [place] [address] Gely Gilmore MD [address] [place] [address] 08/03/2024 3:00 PM EDT Office Visit Orthopaedics [facility] 132 [facility] [place] [address] Cm Dawson, DO 132 [facility] [place] [address] 08/10/2024 12:20 PM EDT Office Visit [place] [address] [place] [phone] Charley Crane MD [address] [place] [address] 09/02/2024 3:00 PM EST Office Visit Sleep Disorders Ctr [facility] 132 [facility] [place] [phone] Audrey Lee, DO 132 [facility] [place] [address] Health Maintenance Due Date Last Done Comments Alpha-1 Antitrypsin 1974 CKD PHOS USE SMARTSET 38448 1974 DTap/Tdap Vaccines (1 - Tdap) 1975 Cologuard 2001 Colonoscopy 2001 Colorectal Cancer Screening 2001 Fecal Occult Blood Test 2001 Sigmoidoscopy 2001 AAA Screening 2021 COVID-19 Vaccine ( season) 2024 Influenza Vaccine (FLU shot) (#1) 2024 07/05/2023, 07/05/2023 GFR 12/16/2024 06/15/2024, 08/11/2023, 05/27/2024, Additional history exists HbA1c 12/16/2024 06/15/2024, 01/26, 06/21/2023 Adult Wellness Visit 02/09/2025 02/10/2024 Albumin/Creatinine Ratio 02/09/2025 02/10/2024 Depression Screening 02/09/2025 02/10/2024 Diabetic Eye Exam 04/28/2025 04/28/2024, , 09/09/2023 CKD HGB USE SMARTSET 97653 06/15/202506/15, 06/15/2024, 05/27/2024, Additional history exists Diabetic [...] filedocumented as of this encounter Care Teams Corporate Development Intern Relationship Specialty Start Date End Date Charley Crane MD [address] [place] [address] PCP - General Internal Medicine 06/04/23 documented as of this encounter
--- OUTSIDE RECORDS SUMMARY | 2024-07-21 01:55 | External Medical Summary | Summary of Care ---
Author Name Unknown Organization [facility] Address [address] [facility] [address] Phone [phone] Care Team Providers Care Energy Professional Name Role Phone Charley Crane MD Primary Care Provider [phone] Reason for Visit * Reason Comments Dosage Adjustment Via Phone (anticoag Cl inic) Encounter Details Date Type Department Care Team (Late st Contact Info) Description 07/08/2024 6:00 AM EDT Anticoagulation Centralized Clinical Pharmacy Services, Oscar Peace [address] [place] [address] [place] [address] [place] [address] USP current use of anticoagulant therapy*; Longstanding persistent atrial fibrillation (HCC); History of deep venous thrombosis (DVT) of distal vein of left lower extremity Allergies No known active allergiesdocumented as of this encounter (statuses as of 07/08/2024) Medications Medication Sig Dispensed Refills Start Date End Date Status Centrum Silver 50+Men Oral Tablet Take 1 Tablet by mouth daily. Active oxygen IN GAS Use 3 L/min(Oxygen) as directed continuous. Uses 2.5 LPM at night with BIPAP and as needed during the day Active BiPAP every night at bedtime. Active Ketoconazole 2 % External CreamIndications: Seborrheic dermatitis Apply to dry patches on face once daily 30 g 1 08/13/2023 Active guaiFENesin ER 600 MG Oral Tablet Extended Release 12 Hour (Mucinex) Take 1 Tablet by mouth 2 times a day. Active Empagliflozin 10 MG Oral Tablet (Jardiance) Take 1 Tablet by mouth in the morning. 90 Tablet 3 01/20/2024 Active Spironolactone 25 MG Oral Tablet (Aldactone) Take 1 Tablet by mouth in the morning. 90 Tablet 3 01/20/2024 Active Additional Information Patient taking differently: 12.5 mgOral Daily(AM), Reported on 06/03/2024 Torsemide 20 MG Oral Tablet (Demadex) Take 2 tablets by mouth once daily 180 Tablet 3 01/20/2024 Active Warfarin Sodium 10 MG [...] or Wheezing. 54 g 1 01/20/2024 Active Fluticasone Propionate 50 MCG/ACT Nasal Suspension (Flonase) Administer 2 Sprays into each nostril in the morning. 16 g 1 02/10/2024 Active Atorvastatin Calcium 80 MG Oral Tablet (Lipitor)Indicati ons:Dyslipidemia, goal LDL below 70 Take 1 Tablet by mouth in the morning. 90 Tablet 3 02/12/2024 Active Carvedilol 3.125 MG Oral Tablet (Coreg)Indication s:Longstanding persistent atrial fibrillation (HCC),Hypertensio n goal BP (blood pressure) < 130/80,Chronic heart failure with preserved ejection fraction (HCC) Take 1 Tablet by mouth 2 times a day with morning and evening meals. 180 Tablet 3 04/28/2024 Active Ipratropium-Albut blaire 0.5-2.5 (3) MG/3ML Inhalation Solution (Duoneb) INHALE THE CONTENTS OF 1 VIAL IN NEBULIZER EVERY 6 HOURS NEEDED FOR SHORTNESS OF BREATH 360 mL 3 05/12/2024 Active Additional Information Patient taking differently: 3 mL Nebulizer, INHALE THE CONTENTS OF 1 VIAL IN NEBULIZER EVERY 4 HOURS NEEDED FOR SHORTNESS OF BREATH, Reported on 06/03/2024 Potassium Chloride ER 10 MEQ Oral Capsule Extended Release Take 1 Capsule by mouth every other day. 45 Capsule 1 05/22/2024 Active Pantoprazole Sodium 40 MG Oral Tablet Delayed Release (Protonix) TAKE 1 TABLET BY MOUTH EVERY MORNING 90 Tablet 1 05/25/2024 Active Trelegy Ellipta 100-62.5-25 MCG/ACT Aerosol Powder Breath Activated (Fluticasone-Umec lidinium-Vilanter ol) Inhale 1 Puff by mouth in the morning. 180 Blister Dosing Unit 3 06/01/2024 Active Enalapril Maleate 10 MG Oral Tablet (Vasotec) TAKE 1 TABLET BY MOUTH EVERY MORNING 90 Tablet 1 06/16/2024 Active Montelukast Sodium 10 MG Oral Tablet (Singulair) Take 1 Tablet by mouth in the morning. 90 Tablet 3 06/18/2024 Active Doxycycline Hyclate 100 MG Oral Capsule Take 1 Capsule by mouth in the morning and 1 Capsule before bedtime. Until gone. COPD rescue kit. 20 Capsule 06/30/2024 Active Nystatin 775593 UNIT/GM External Cream Apply topically to affected area 2 times a day. Continue until resolved 30 g 2 07/02/2024 Active documented as of this encounter (statuses as of 07/08/2024) Active Problems Problem Noted Date Diagnosed Date [...] classification 11/04 Overview: Per COPD GOLD Classification USP current use of anticoagulant therapy 0 2023 Longstanding persistent atrial fibrillation 06/29 Last Assessment & Plan: Rate controlled Continue coumadin Hypertension goal BP (blood pressure) < 130/80 0 07/17/2023 Dyslipidemia, goal LDL below 70 07/17/2023 Body mass index (BMI) of 40.0 to 44.9 in adult 0 07/08/2023 Overview: Per Obesity protocol Atherosclerosis of [place] co 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 Jardiance) Remote Patient Monitoring Vendor: [facility] Device(s): Connected Scale Continuous Monitoring Device Self [...] as of this encounter (statuses as of 07/08/2024) Resolved Problems Problem Noted Date Diagnosed Date [...] Classes - JULIA Class D - Inhaled Bgumtzdqugodqs-PYHA-EYKE Combination Inhaler (Sandro) Remote Patient Monitoring Vendor: [facility] Device(s): Continuous Monitoring Device Traditional Scale Self-Management plan High frequency nebulizer treatments every 4-6 hours around the clock Exacerbation plan Chest Xray Additional Comments: On continuous o2 2-3lpm Bipap at night Atherosclerosis of [place] co 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 pectoris 07/05/2023 08/29/2023 Dyspnea 07/04/2023 08/13/2023 Occupational exposure in workplace 07/04/2023 02/14/2024 Chronic congestive heart failure 06/08/2023 07/05/2023 COPD, severe 06/08/2023 07/11/2023 Overview: Per COPD GOLD Classification Chronic hypoxemic respiratory failure 06/08/2023 07/04/2023 Chronic respiratory failure with hypoxia, on home oxygen therapy 06/08/2023 08/29/2023 Diabetes mellitus without complication 06/08/2023 08/29/2023 documented as of this encounter (statuses as of 07/08/2024) Immunizations Name Administration Dates Next Due Pneumococcal [...] of this encounter Progress Notes * Kristina Faust PHARM Tech - 07/08/2024 10:50 AM EDT Contacts Contact Date/Time Type Contact Phone/Fax 07/08/2024 10:48 AM EDT Phone (Outgoing) Bala Coronado Jr. (Self) [phone] (M) Left Message Subjective Advised patient to contact Anticoagulation Clinic if any unusual bruising or bleeding, recent illness, changes in medication, or questions/concerns. PT/INR results, Coumadin dose instructions, and next PT/INR date communicated as noted by Pharmacist: Yes AMANDO Mcneil 07/08/2024, 10:50 AM * Isabel Li RPh - 07/08/2024 8:06 AM EDT Coumadin Clinic (region specific) Objective Current Warfarin Dose As of 07/08/2024 Warfarin maintenance plan: 10 mg (10 mg x 1) every Mon, Wed, Fri; 15 mg (10 mg x 1.5) all other days INR Result As of 07/08/2024 INR goal: 2.0-3.0 INR used for dosin.7 (07/07/2024) Assessment & Plan Warfarin Plan As of 07/08/2024 Full warfarin instructions: 10 mg every Mon, Wed, Fri; 15 mg all other days No change documented: Isabel Li RPh Next INR check: 07/16/2024 Repeat PT/INR in 1.5 week(s) Weekly dose: not changed Additional Dosing Information: Description [facility] Pill packs from [facility] - Warfarin NOT included Tech to contact patient with dose instructions as noted. Isabel Li RPh 07/08/2024, 8:06 AM documented in this encounter Plan of Treatment Upcoming Encounters Date Type Department Care Team (Late st Contact Info) Description 07/09/2024 8:30 AM EDT Home Visit [facility] 132 [facility] [place] [address] Michelle Kim RN 132 [facility] [place] [address] 07/16/2024 7:05 AM EDT Laboratory Lab Mobile Phlebotomy [facility] [address] [place] [address] [facility], [facility] Mobile Home Draw [address] [place] [address] 07/17/2024 6:00 AM EDT Anticoagulation Centralized Clinical Pharmacy Services, Oscar Peace [address] [place] [address] [place] [address] [place] [address] 07/27/2024 2:15 PM EDT Office Visit Interventional Pain Center, [facility] 132 [facility] [place] [address] Gely Gilmore MD [address] [place] [address] 08/03/2024 3:00 PM EDT Office Visit Orthopaedics [facility] 132 [facility] [place] [address] Cm Dawson, DO 132 [facility] [place] [address] 08/10/2024 12:20 PM EDT Office Visit Family [address] [phone] Charley Crane MD [address] [place] [address] 09/02/2024 3:00 PM EST Office Visit Sleep Disorders Ctr [facility] 132 [facility] [place] [phone] Audrey Lee, 132 [facility] [place] [address] Health Maintenance Due Date Last Done Comments Alpha-1 Antitrypsin 1974 CKD PHOS USE SMARTSET 90104 1974 DTap/Tdap Vaccines (1 - Tdap) 1975 [...] 04/28/2024, , 09/09/2023 CKD HGB USE SMARTSET 14611 06/15/202506/15, 06/15/2024, 05/27/2024, Additional history exists Diabetic Foot Exam 06/15/2025 06/15/2024, 06/21/2023 O2 ASSESSMENT COMPLETED IN PAST YEAR FOR COPD 07/01/2025 07/01/2024 Pneumococcal Vaccine: 65+ Years Completed 07/05/2023 Zoster [...] as of this encounter Visit Diagnoses Diagnosis USP current use of anticoagulant therapy- Primary Longstanding persistent atrial fibrillation (HCC) History of deep venous thrombosis (DVT) of distal vein of left lower extremity documented in this encounter Care Teams Energy Professional Relationship Specialty Start Date End Date Charley Crane MD [address] [place] [address] PCP - General Internal Medicine 06/04/23 documented as of this encounter
--- OUTSIDE RECORDS SUMMARY | 2024-07-21 01:55 | External Medical Summary | Summary of Care ---
Author Name Unknown Organization [facility] Address [address] [place] [address] Phone [phone] Care Team Providers Care Senior Cytogenetic Technologist Name Role Phone Charley Crane MD Primary Care Provider [phone] Reason for Visit * Reason Onset Date Comments Medication Refill 07/09/2024 Encounter Details Date Type Department Care Team (Late st Contact Info) Description 07/09/2024 Refill [facility], [facility] [address] [place] [address] Michelle Kim, RN [address] [place] [address] COPD, group D, by GOLD 2017 classification ([facility])* Allergies No known active allergiesdocumented as of this encounter (statuses as of 07/09/2024) Medications Medication Sig Dispensed Refills Start Date [...] 4 Active Carvedilol 3.125 MG Oral Tablet (Coreg)Indications :Longstanding persistent atrial fibrillation (HCC),Hypertension goal BP (blood pressure) < 130/80,Chronic heart failure with preserved ejection fraction (HCC) Take 1 Tablet by mouth 2 times a day with morning and evening meals. 180 Tablet 3 4 Active Ipratropium-Albute rol 0.5-2.5 (3) MG/3ML Inhalation [...] rescue kit. 20 Capsule 4 Active Nystatin 237487 UNIT/GM External Cream Apply topically to affected area 2 times a day. Continue until resolved 30 g 2 4 Active predniSONE 20 MG Oral Tablet (Deltasone)Indicat ions:COPD, group D, by GOLD 2017 classification ([facility]) Take 2 Tablets by mouth in the morning. Rescue kit. Use only as instructed. 10 Tablet 4 Active Doxycycline Hyclate 100 MG Oral CapsuleIndications :COPD, group D, by GOLD 2017 classification ([facility]) Take 1 Capsule by mouth in the morning and 1 Capsule before bedtime. Rescue kit. Use only as instructed. 20 Capsule 4 Active predniSONE 20 MG Oral Tablet (Deltasone) Take 2 Tablets by mouth in the morning for 5 days. 10 Tablet 4 07/09/20 24 Discontinu ed(Refill) Doxycycline Hyclate 100 MG Oral Capsule Take 1 Capsule by mouth in the morning and 1 Capsule before bedtime. Do all this for 10 days. Until gone.. 20 Capsule 4 07/09/20 24 Discontinu ed(Refill) documented as of this encounter (statuses as of 07/09/2024) Active Problems Problem Noted Date Diagnosed Date [...] goal LDL below 70 07/17/2023 Atherosclerosis of [place] co 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 Jardiance) Remote Patient Monitoring Vendor: [facility] Device(s): Connected Scale Continuous Monitoring Device Self [...] as of this encounter (statuses as of 07/09/2024) Resolved Problems Problem Noted Date Diagnosed Date [...] Classes - JULIA Class D - Inhaled Yuwzotbfaunrbo-BMYJ-AZQS Combination Inhaler (Trellegy) Remote Patient Monitoring Vendor: [facility] Device(s): Continuous Monitoring Device Traditional Scale Self-Management plan High frequency nebulizer treatments every 4-6 hours around the clock Exacerbation plan Chest Xray Additional Comments: On continuous o2 2-3lpm Bipap at night Body mass index (BMI) of 40. 0 to 44.9 in adult 07/08/2023 07/09/2024 Overview: Per Obesity protocol Atherosclerosis of [place] co 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 pectoris 07/05/2023 08/29/2023 Dyspnea 07/04/2023 08/13/2023 Occupational exposure in workplace 07/04/2023 02/14/2024 Chronic congestive heart failure 06/08/2023 07/05/2023 COPD, severe 06/08/2023 07/11/2023 Overview: Per COPD GOLD Classification Chronic hypoxemic respiratory failure 06/08/2023 07/04/2023 Chronic respiratory failure with hypoxia, on home oxygen therapy 06/08/2023 08/29/2023 Diabetes mellitus without complication 06/08/2023 08/29/2023 documented as of this encounter (statuses as of 07/09/2024) Immunizations Name Administration Dates Next Due Pneumococcal [...] encounter Miscellaneous Notes * Telephone Encounter - Anirudh Gonzalez PA-C - 07/09/2024 11:29 AM EDTSigned Prescriptions: Disp Refills predniSONE 20 MG Oral Tablet (Deltasone) 10 Tab*0 Sig: Take 2 Tablets by mouth in the morning. Rescue kit. Use only as instructed. Authorizing Provider: ANIRUDH GONZALEZ Doxycycline Hyclate 100 MG Oral Capsule 20 Cap*0 Sig: Take 1 Capsule by mouth in the morning and 1 Capsule before bedtime. Rescue kit. Use only as instructed. Authorizing Provider: ANIRUDH GONZALEZ * Telephone Encounter - Michelle Kim RN - 07/09/2024 10:14 AM EDT Pt requesting refill of prednisone and doxy for rescue kit to keep on hand. Please send to [facility] pharmacy in [place]. Thank you documented in this encounter Plan of Treatment Upcoming Encounters Date Type Department Care Team (Late st Contact Info) Description 07/11/2024 11:30 AM EDT Scheduled Telephone [facility] at [facility] 132 [facility] [place] [address] [facility], Nurse [facility] 132 [facility] [place] [address] 07/16/2024 7:05 AM EDT Laboratory Lab Mobile Phlebotomy [facility] [address] [place] [address] [facility], G[facility] Mobile Home Draw [address] [facility] [place] [address] 07/17/2024 6:00 AM EDT Anticoagulation Centralized Clinical Pharmacy Services, Oscar Peace [address] [place] [address] [place] [address] [facility] [place] [address] 07/27/2024 2:15 PM EDT Office Visit Interventional Pain Center, [facility] 132 [facility] [place] [address] Gely Gilmore MD [address] [place] [address] 08/03/2024 3:00 PM EDT Office Visit Orthopaedics [facility] 132 [facility] [place] [address] Cm Dawson, DO 132 [facility] [place] [address] 08/10/2024 12:20 PM EDT Office Visit [place] [address] [place] [phone] Charley Crane MD [address] [place] [address] 09/02/2024 3:00 PM EST Office Visit Sleep Disorders Ctr [facility] 132 [facility] [place] [phone] Audrey Lee, DO 132 [facility] [place] [address] Health Maintenance Due Date Last Done Comments Alpha-1 Antitrypsin 1974 CKD PHOS USE SMARTSET 26909 1974 DTap/Tdap Vaccines (1 - Tdap) 1975 [...] 04/28/2024, , 09/09/2023 CKD HGB USE SMARTSET 74840 06/15/202506/15, 06/15/2024, 05/27/2024, Additional history exists Diabetic [...] D, by GOLD 2017 classification (HCC)- Primary documented in this encounter Care Teams Senior Cytogenetic Technologist Relationship Specialty Start Date End Date Charley Crane MD [address] [place] [facility] [place] [address] PCP - General Internal Medicine 06/04/23 documented as of this encounter
--- OUTSIDE RECORDS SUMMARY | 2024-07-21 01:55 | External Medical Summary | Summary of Care ---
Author Name Unknown Organization [facility] Address [address] [place] [address] Phone [phone] Care Team Providers Care Lumber Bearer Name Role Phone Charley Crane MD Primary Care Provider [phone] Reason for Visit * Reason Onset Date Comments Acute Problem Follow Up 07/05/2024 Encounter Details Date Type Department Care Team (Late st Contact Info) Description 07/05/2024 11:45 AM EDT Scheduled Telephone [facility], [facility] [address] [facility] [place] [address] [facility], Nurse [facility] [address] [place] [address] Allergies No known active allergiesdocumented as of this encounter (statuses as of 07/05/2024) Medications Medication Sig Dispensed Refills Start Date [...] rescue kit. 20 Capsule 06/30/2024 Active Nystatin 036034 UNIT/GM External Cream Apply topically to affected area 2 times a day. Continue until resolved 30 g 2 07/02/2024 Active documented as of this encounter (statuses as of 07/05/2024) Active Problems Problem Noted Date Diagnosed Date [...] classification 11/04 Overview: Per COPD GOLD Classification [facility] current use of anticoagulant therapy 0 2023 Longstanding persistent atrial fibrillation 06/29 Last Assessment & Plan: Rate controlled Continue coumadin Hypertension goal BP (blood pressure) < 130/80 0 07/17/2023 Dyslipidemia, goal LDL below 70 07/17/2023 Body mass index (BMI) of 40.0 to 44.9 in adult 0 07/08/2023 Overview: Per Obesity protocol Atherosclerosis of [place] co 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 Jardiance) Remote Patient Monitoring Vendor: [facility] Device(s): Connected Scale Continuous Monitoring Device Self [...] as of this encounter (statuses as of 07/05/2024) Resolved Problems Problem Noted Date Diagnosed Date [...] Classes - JULIA Class D - Inhaled Izdmocglbixfzo-QAOG-CSFP Combination Inhaler (Sandro) Remote Patient Monitoring Vendor: [facility] Device(s): Continuous Monitoring Device Traditional Scale Self-Management plan High frequency nebulizer treatments every 4-6 hours around the clock Exacerbation plan Chest Xray Additional Comments: On continuous o2 2-3lpm Bipap at night Atherosclerosis of [place] co 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 pectoris 07/05/2023 08/29/2023 Dyspnea 07/04/2023 08/13/2023 Occupational exposure in workplace 07/04/2023 02/14/2024 Chronic congestive heart failure 06/08/2023 07/05/2023 COPD, severe 06/08/2023 07/11/2023 Overview: Per COPD GOLD Classification Chronic hypoxemic respiratory failure 06/08/2023 07/04/2023 Chronic respiratory failure with hypoxia, on home oxygen therapy 06/08/2023 08/29/2023 Diabetes mellitus without complication 06/08/2023 08/29/2023 documented as of this encounter (statuses as of 07/05/2024) Immunizations Name Administration Dates Next Due Pneumococcal [...] No 02/10/2024 Does the household have a carrie tingley hospitallar source of income? (Household - for [...] encounter Miscellaneous Notes * Telephone Encounter - Shayla Mancia BSN - 07/05/2024 11:46 AM EDT Phone call placed to patient who had done a dtp recently as well as started a rescue kit for copd. Patient did not answer phone had to leave vm Explained/reinforced role of rehabilitation case coordinator. Encouraged to call with any issues or concerns. Gave direct phone number and contact information. documented in this encounter Plan of Treatment Upcoming Encounters Date Type Department Care Team (Late st Contact Info) Description 07/06/2024 11:00 AM EDT Office Visit Orthopaedics [facility] [address] [place] [address] Cm Dawson, DO [address] [place] [address] 07/07/2024 1:00 PM EDT Office Visit [facility] [address] [place] [address] Charley Crane MD [address] [place] [address] 07/08/2024 6:00 AM EDT Anticoagulation Centralized Clinical Pharmacy Services, [address] [place] [address] [place] [address] 07/09/2024 8:30 AM EDT [facility] 132 [facility] [place] [address] Michelle Kim RN [address] [facility] [place] [address] 07/16/2024 7:00 AM EDT Laboratory Lab Mobile Phlebotomy [facility] [address] [facility] [place] [address] [facility], G[facility] Mobile Home Draw [address] [facility] [place] [address] 07/17/2024 6:00 AM EDT Anticoagulation Centralized Clinical Pharmacy Services, Oscar [address] [place] [address] [place] [address] 07/27/2024 2:15 PM EDT Office Visit Interventional [facility] Center, [facility] 132 [facility] [place] [address] Gely Gilmore MD [address] [place] [address] 08/10/2024 12:20 PM EDT Office Visit [facility] [address] [facility] [phone] Charley Crane MD [address] [facility] [address] 09/02/2024 3:00 PM EST Office Visit Sleep Disorders Ctr [facility] [address] [place] [phone] Audrey Lee, [address] [place] [address] Health Maintenance Due Date Last Done Comments Alpha-1 Antitrypsin 1974 CKD PHOS USE SMARTSET 04148 1974 DTap/Tdap Vaccines (1 - Tdap) 1975 [...] 04/28/2024, , 09/09/2023 CKD HGB USE SMARTSET 48299 06/15/202506/15, 06/15/2024, 05/27/2024, Additional history exists Diabetic [...] filedocumented as of this encounter Care Teams Lumber Bearer Relationship Specialty Start Date End Date Charley Crane MD [address] [place] [address] PCP - General Internal Medicine 06/04/23 documented as of this encounter
--- OUTSIDE RECORDS SUMMARY | 2024-07-21 01:55 | External Medical Summary | Summary of Care ---
Author Name Unknown Organization [facility] Address [address] [place] [facility] [place] [address] Phone [phone] Care Team Providers Care Production Supply Equipment Tender Name Role Phone Charley Crane MD Primary Care Provider [phone] Reason for Visit * Reason Onset Date Comments [facility]: Maintenance 07/02/2024 Encounter Details Date Type Department Care Team (Late st Contact Info) Description 07/02/2024 1:00 PM EDT Scheduled Telephone [facility], [facility] [address] [facility] [place] [address] Coordinator, [facility] [address] [facility] [place] [address] Allergies No known active allergiesdocumented as of this encounter (statuses as of 07/02/2024) Medications Medication Sig Dispensed Refills Start Date [...] by mouth every other day. 45 Capsule 05/22/2024 Active Pantoprazole Sodium 40 MG Oral [...] rescue kit. 20 Capsule 06/30/2024 Active Nystatin 523556 UNIT/GM External Cream Apply topically to affected area 2 times a day. 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 Jardiance) Remote Patient Monitoring Vendor: [facility] Device(s): Connected Scale Continuous Monitoring Device Self [...] as of this encounter (statuses as of 07/02/2024) Resolved Problems Problem Noted Date Diagnosed Date [...] Classes - JULIA Class D - Inhaled Osmhudywurodvl-AUAD-BMLF Combination Inhaler (Sandro) Remote Patient Monitoring Vendor: [facility] Device(s): Continuous Monitoring Device Traditional Scale Self-Management plan High frequency nebulizer treatments every 4-6 hours around the clock Exacerbation plan Chest Xray Additional Comments: On continuous o2 2-3lpm Bipap at night Atherosclerosis of [place] co 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 pectoris 07/05/2023 08/29/2023 Dyspnea 07/04/2023 08/13/2023 Occupational exposure in workplace 07/04/2023 02/14/2024 Chronic congestive heart failure 06/08/2023 07/05/2023 COPD, severe 06/08/2023 07/11/2023 Overview: Per COPD GOLD Classification Chronic hypoxemic respiratory failure 06/08/2023 07/04/2023 Chronic respiratory failure with hypoxia, on home oxygen therapy 06/08/2023 08/29/2023 Diabetes mellitus without complication 06/08/2023 08/29/2023 documented as of this encounter (statuses as of 07/02/2024) Immunizations Name Administration Dates Next Due Pneumococcal [...] encounter Miscellaneous Notes * Telephone Encounter - Ashely Chapman RN - 07/02/2024 5:32 PM EDT Call placed to the pt to make aware of new Rx for nystatin cream. No answer. LMOM for callback. * Addendum Note - Anirudh Akins PA-C - 07/02/2024 3:43 PM EDTAddended by: ANIRUDH AKINS on: 07/02/2024 03:43 PM Modules accepted: Orders * Telephone Encounter - Ashely Chapman RN - 07/02/2024 11:08 AM EDT Images from the original note were not included. [facility] Telephonic Nurse Follow-Up Call [facility] Subprogram: Focused Care Management (3-9 months) Follow Up Call Type: 24 hour follow up Acute issue requiring follow-up call: Heart Failure Exacerbation Acute Exacerbation of COPD Objective: 07/01/2024 9:18 AM 06/18/2024 4:24 PM 06/15/2024 1:54 PM 06/03/2024 1:39 PM 05/10/2024 4:58 PM VITALS ACROSS ENCOUNTERS BP 122/84 126/72 122/76 112/64 110/70 Pulse 63 75 76 68 60 Weight 142.4 kg 135.6 kg BMI 49.18 kg/m2 46.83 kg/m2 Remote Patient Monitoring: NONE Oxygen Needs: NO CHANGE from baseline supplemental oxygen needs 2.5 L DME Needs: Nebulizer machine and supplies Medications: New medication(s) added: Doxycycline and prednisone rescue kit Current DTP: Double dose of Torsemide for 3 days Subjective: Condition Status: Improvement in symptoms but not at baseline Current Concerns: Pt states that he is feeling a bit better today. Noted improvement in breathing and decrease in SOB. O2 sat 95% on 2.5L O2 BP 112/64 HR 60 Weight today 298.0 Lbs which pt states is a 2 lb wt loss from yesterday. Weight per pt yesterday 301.0 lbs Pt reports improvement in LE edema. Denies abd bloating, chest pain, lightheadedness or dizziness. Pt reports a sacral wound which has some bloody drainage per pt. Pt unsure size or depth of wound. Per pt, [facility] is to come today to take pic of wound. Verified home visit with Chacha Kennedy W for today. Advised pt to keep sacral wound clean and dry. Apply a barrier cream to area such as Desitin and cover with a dry non stick dressing. Advised pt to change positions frequently to keep pressure off the area. Wt Readings from Last 5 Encounters: 06/15/24 (!) 142.4 kg (314 lb) 06/03/24 135.6 kg (299 lb) 04/01/24 128.4 kg (283 lb) 02/20/24 127 kg (280 lb) 01/17/24 127.9 kg (282 lb) Disposition: Routed to [facility] and/or [facility] Care Team for further advice and Follow up call scheduled for tomorrow with ELDER SunshineReview Nurse Future Visits Scheduled: Future Appointments-next 60 days Date/Time Provider Specialty Dept Phone 07/02/2024 1:00 PM Coordinator, Xiomara Sunshine [facility] [phone] 07/03/2024 6:00 AM [facility] [phone] 07/03/2024 12:45 PM Coordinator, Xiomara Sunshine [facility] [phone] 07/06/2024 11:00 AM (Arrive by 10:45 AM) Cm Dawson DO Orthopedics [phone] 07/09/2024 8:30 AM Michelle Kim RN [facility] [phone] 07/27/2024 2:15 PM (Arrive by 2:00 PM) Geyl Gilmore MD Pain Medicine [phone] 08/10/2024 12:20 PM (Arrive by 12:05 PM) Charley Crane MD Family Medicine [phone] 09/02/2024 3:00 PM (Arrive by 2:45 PM) Audrey Lee DO Sleep Disorders [phone] Ashely Chapman, COLLIN documented in this encounter Plan of Treatment Upcoming Encounters Date Type Department Care Team (Late st Contact Info) Description 07/03/2024 6:00 AM EDT Anticoagulation [facility] Services, Oscar Peace [address] [place] [address] [place] [address] [place] [address] 07/03/2024 12:45 PM EDT Scheduled Telephone [facility] [place], [facility] [address] [place] [address] Coordinator, Xiomara Sunshine [address] [place] [address] 07/06/2024 11:00 AM EDT Office Visit Orthopaedics [facility] [address] [facility] [place] [address] Cm Dawson, DO [address] [facility] [place] [address] 07/09/2024 8:30 AM EDT Home Visit [facility], [facility] [address] [facility] [place] [address] Michelle Kim, RN [address] [facility] [place] [address] 07/27/2024 2:15 PM EDT Office Visit Interventional Pain Center, [facility] [address] [facility] [place] [address] Gely Gilmore MD [address] [place] [address] 08/10/2024 12:20 PM EDT Office Visit [facility] [address] [place] [phone] Charley Crane MD [address] [place] [address] 09/02/2024 3:00 PM EST Office Visit Sleep Disorders Ctr [facility] 132 [facility] [place] [phone] Audrey Lee, DO [address] [facility] [place] [address] Health Maintenance Due Date Last Done Comments Alpha-1 Antitrypsin 1974 CKD PHOS USE SMARTSET 91421 1974 DTap/Tdap Vaccines (1 - Tdap) 1975 [...] 04/28/2024, , 09/09/2023 CKD HGB USE SMARTSET 69633 06/15/202506/15, 06/15/2024, 05/27/2024, Additional history exists Diabetic [...] filedocumented as of this encounter Care Teams Production Supply Equipment Tender Relationship Specialty Start Date End Date Charley Crane MD [address] [place] [address] PCP - General Internal Medicine 06/04/23 documented as of this encounter
--- OUTSIDE RECORDS SUMMARY | 2024-07-21 01:55 | External Medical Summary | Summary of Care ---
Author Name Unknown Organization [facility] Address [address] [place] [facility] [place] [address] Phone [phone] Care Team Providers Care Wrapper Sizer Name Role Phone Charley Crane MD Primary Care Provider [phone] Reason for Visit * Reason Onset Date Comments [facility]: Maintenance 07/02/2024 Encounter Details Date Type Department Care Team (Late st Contact Info) Description 07/02/2024 1:00 PM EDT Scheduled Telephone [facility], [facility] [address] [facility] [place] [address] Coordinator, [facility] [address] [facility] [place] [address] Allergies No known active allergiesdocumented as of [...] rescue kit. 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 2023 Longstanding persistent atrial fibrillation 06/29 Last Assessment & Plan: Rate controlled Continue coumadin Hypertension goal BP (blood pressure) < 130/80 0 07/17/2023 Dyslipidemia, goal LDL below 70 07/17/2023 Body mass index (BMI) of 40.0 to 44.9 in adult 0 07/08/2023 Overview: Per Obesity protocol Atherosclerosis of [place] co 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 pectoris 07/05/2023 [...] Classes - JULIA Class D - Inhaled Anilhvjujyrkgc-LRUP-WATJ Combination Inhaler (Sandro) Remote Patient Monitoring Vendor: [facility] Device(s): Continuous Monitoring Device Traditional Scale Self-Management plan High frequency nebulizer treatments every 4-6 hours around the clock Exacerbation plan Chest Xray Additional Comments: On continuous o2 2-3lpm Bipap at night Atherosclerosis of [place] co 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 pectoris 07/05/2023 [...] encounter Miscellaneous Notes * Addendum Note - Anirudh Akins PA-C - 07/02/2024 3:43 PM EDTAddended by: ANIRUDH AKINS on: 07/02/2024 03:43 PM Modules accepted: Orders * Telephone Encounter - Ashely Chapman RN - 07/02/2024 11:08 AM EDT Images from the original note were not included. [facility] Telephonic Nurse Follow-Up Call [facility] Subprogram: Focused Care Management (3-9 months) Follow [...] size or depth of wound. Per pt, [facility] is to come today to take pic of wound. Verified home visit with Chacha Kennedy CHW for today. Advised pt to keep sacral [...] 127.9 kg (282 lb) Disposition: Routed to [facility] and/or [facility] Care Team for further advice and Follow up call scheduled for tomorrow with ELDER [employer] Future Visits Scheduled: Future Appointments-next 60 days Date/Time Provider Specialty Dept Phone 07/02/2024 1:00 PM CoordinatorXiomara Sutherland [facility] [phone] 07/03/2024 6:00 AM [facility] [phone] 07/03/2024 12:45 PM Coordinator, Xiomara Sunshine [facility] [phone] 07/06/2024 11:00 AM (Arrive by 10:45 AM) Cm Dawson DO Orthopedics [phone] 07/09/2024 8:30 AM Michelle Kim RN [facility] [phone] 07/27/2024 2:15 PM (Arrive by 2:00 PM) Gely Gilmore MD Pain Medicine [phone] 08/10/2024 12:20 PM (Arrive by 12:05 PM) Charley Crane MD Family Medicine [phone] 09/02/2024 3:00 PM (Arrive by 2:45 PM) Audrey Lee DO Sleep Disorders [phone] Ashely Chapman RN documented in this encounter Plan of Treatment Upcoming Encounters Date Type Department Care Team (Late st Contact Info) Description 07/03/2024 6:00 AM EDT Anticoagulation Centralized Clinical Pharmacy Services, Oscar Peace [address] [place] [address] [place] [address] [facility], [address] [place] [address] 07/03/2024 12:45 PM EDT Scheduled Telephone [facility] [place], [facility] [address] [place] [address] Coordinator, Xiomara Sunshine [address] [place] [address] 07/06/2024 11:00 AM EDT Office Visit Orthopaedics [facility] [address] [place] [address] Cm Dawson DO [address] [place] [address] 07/09/2024 8:30 AM EDT Home Visit [facility], [facility] [address] [facility] [place] [address] Michelle Kim, RN [address] [place] [address] 07/27/2024 2:15 PM EDT Office Visit Interventional Pain Center, [facility] [address] [facility] [place] [address] Gely Gilmore MD [address] [place] [address] 08/10/2024 12:20 PM EDT Office Visit Family [facility] [place] [address] [place] [phone] Charley Crane MD [address] [place] [address] 09/02/2024 3:00 PM EST Office Visit Sleep Disorders Ctr [facility] [address] [facility] [place] [phone] Audrey Lee DO [address] [facility] [place] [address] Health Maintenance Due Date Last Done Comments Alpha-1 Antitrypsin 1974 CKD PHOS USE SMARTSET 86618 1974 DTap/Tdap Vaccines (1 - Tdap) 1975 Cologuard 2001 Colonoscopy 2001 Colorectal Cancer Screening 2001 Fecal Occult Blood Test 2001 Sigmoidoscopy 2001 AAA Screening 2021 COVID-19 Vaccine ( - season) 2024 Influenza Vaccine (FLU shot) (#1) 2024 07/05/2023, 07/05/2023 GFR 12/16/2024 06/15/2024, 080 11/2023, 05/27/2024, Additional history exists HbA1c 12/16/2024 06/15/2024, 01/26, 06/21/2023 Adult Wellness Visit 02/09/2025 02/10/2024 Albumin/Creatinine Ratio 02/09/2025 02/10/2024 Depression Screening 02/09/2025 02/10/2024 Diabetic Eye Exam 04/28/2025 04/28/2024, , 09/09/2023 CKD HGB USE SMARTSET 85935 06/15/202506/15, 06/15/2024, 05/27/2024, Additional history exists Diabetic [...] filedocumented as of this encounter Care Teams Wrapper Sizer Relationship Specialty Start Date End Date Charley Crane MD [address] [place] [address] PCP - General Internal Medicine 06/04/23 documented as of this encounter
--- OUTSIDE RECORDS SUMMARY | 2024-07-21 01:55 | External Medical Summary | Summary of Care ---
Author Name Unknown Organization [facility] [address] [facility] [address] Phone [phone] Care Team Providers Care Cabin Cleaning Supervisor Name Role Phone Charley Crane MD Primary Care Provider [phone] Reason for Visit * Reason Comments Dosage Adjustment Via Phone (anticoag Cl inic) Encounter Details Date Type Department Care Team (Late st Contact Info) Description 07/03/2024 6:00 AM EDT Anticoagulation Centralized Clinical Pharmacy Services, Oscar Peace [address] [place] [address] [place] [address] [place] [address] [facility] current use of anticoagulant therapy*; Longstanding persistent atrial fibrillation (HCC); History of deep venous thrombosis (DVT) of distal vein of left lower extremity Allergies No known active allergiesdocumented as of this encounter (statuses as of 07/03/2024) Medications Medication Sig Dispensed Refills Start Date [...] rescue kit. 20 Capsule 06/30/2024 Active Nystatin 801024 UNIT/GM External Cream Apply topically to affected area 2 times a day. Continue until resolved 30 g 2 07/02/2024 Active documented as of this encounter (statuses as of 07/03/2024) Active Problems Problem Noted Date Diagnosed Date [...] classification 11/04 Overview: Per COPD GOLD Classification [facility] current use of anticoagulant therapy 0 2023 Longstanding persistent atrial fibrillation 06/29 Last Assessment & Plan: Rate controlled Continue coumadin Hypertension goal BP (blood pressure) < 130/80 0 07/17/2023 Dyslipidemia, goal LDL below 70 07/17/2023 Body mass index (BMI) of 40.0 to 44.9 in adult 0 07/08/2023 Overview: Per Obesity protocol Atherosclerosis of [place] co 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 Jardiance) Remote Patient Monitoring Vendor: [facility] Device(s): Connected Scale Continuous Monitoring Device Self [...] as of this encounter (statuses as of 07/03/2024) Resolved Problems Problem Noted Date Diagnosed Date [...] Classes - JULIA Class D - Inhaled Ksdqiklzthffrc-OOOI-NKJS Combination Inhaler (Sandro) Remote Patient Monitoring Vendor: [facility] Device(s): Continuous Monitoring Device Traditional Scale Self-Management plan High frequency nebulizer treatments every 4-6 hours around the clock Exacerbation plan Chest Xray Additional Comments: On continuous o2 2-3lpm Bipap at night Atherosclerosis of [place] co 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 pectoris 07/05/2023 08/29/2023 Dyspnea 07/04/2023 08/13/2023 Occupational exposure in workplace 07/04/2023 02/14/2024 Chronic congestive heart failure 06/08/2023 07/05/2023 COPD, severe 06/08/2023 07/11/2023 Overview: Per COPD GOLD Classification Chronic hypoxemic respiratory failure 06/08/2023 07/04/2023 Chronic respiratory failure with hypoxia, on home oxygen therapy 06/08/2023 08/29/2023 Diabetes mellitus without complication 06/08/2023 08/29/2023 documented as of this encounter (statuses as of 07/03/2024) Immunizations Name Administration Dates Next Due Pneumococcal [...] as of this encounter Progress Notes * Isabel Li RPh - 07/03/2024 10:53 AM EDT Noted rerouted to sarabjit Li Rph, Pharm.D. Clinical Pharmacist [facility] ([facility]) [phone] 07/03/2024,10:53 AM * Ngozi Gonzales [facility] - 07/03/2024 9:01 AM EDT Contacts Contact Date/Time Type Contact Phone/Fax 07/03/2024 08:56 AM EDT Phone (Outgoing) Bala Coronado Jr. (Self) [phone] (M) Spoke to Patient Subjective Patient Findings Positives: Change in medications (Patient started on Doxycycline Hyclate 100 MG Oral Capsule on 07/02-- Requesting INR check in 1 wk vs 2 wk - Patient aware to call with any NVD) Negatives: Signs/symptoms of thrombosis, Signs/symptoms of bleeding, Change in health, Change in alcohol use, Change in activity, Upcoming invasive procedure, Missed doses, Extra doses, Change in diet/appetite, Bruising Advised patient to contact Anticoagulation Clinic if any unusual bruising or bleeding, recent illness, changes in medication, or questions/concerns. PT/INR results, Coumadin dose instructions, and next PT/INR date communicated as noted by Pharmacist: Yes NGOZI GONZALES CPhT 07/03/2024, 9:01 AM * Isabel Li RPh - 07/03/2024 8:24 AM EDT Coumadin Clinic (region specific) Objective Current Warfarin Dose As of 07/03/2024 Warfarin maintenance plan: 10 mg (10 mg x 1) every Mon, Wed, Fri; 15 mg (10 mg x 1.5) all other days INR Result As of 07/03/2024 INR goal: 2.0-3.0 INR used for dosin.6 (07/02/2024) Assessment & Plan Warfarin Plan As of 07/03/2024 Full warfarin instructions: 10 mg every Mon, Wed, Fri; 15 mg all other days No change documented: Isabel Li RPh Next INR check: 07/16/2024 Repeat PT/INR in 2 week(s) Weekly dose: not changed Additional Dosing Information: Description [facility] Pill packs from [facility] - Warfarin NOT included Tech to contact patient with dose instructions as noted. Isabel Li RPh 07/03/2024, 8:24 AM documented in this encounter Plan of Treatment Upcoming Encounters Date Type Department Care Team (Late st Contact Info) Description 07/03/2024 12:45 PM EDT Scheduled Telephone [facility], [facility] [address] [place] [address] Coordinator, Xiomara Sunshine [address] [place] [address] 07/06/2024 11:00 AM EDT Office Visit Orthopaedics [facility] [address] [place] [address] Cm Dawson DO [address] [place] [address] 07/09/2024 8:30 AM EDT Home Visit [facility], [facility] [address] [place] [address] Michelle Kim RN 132 [facility] [place] [address] 07/16/2024 7:00 AM EDT Laboratory Lab [facility] [address] [place] [address] [place] [address] [facility] Draw [address] [facility] [place] [address] 07/17/2024 6:00 AM EDT Anticoagulation Centralized Clinical Pharmacy Services, Oscar ePace [address] [place] [address] [place] [address] [facility], [address] [place] [address] 07/27/2024 2:15 PM EDT Office Visit Interventional Pain Center, [facility] [address] [place] [address] Gely Gilmore MD [address] [place] [address] [place] [phone] 08/10/2024 12:20 PM EDT Office [facility] [address] [facility] [phone] Charley Crane [facility] [address] [facility] [address] 09/02/2024 3:00 PM EST Office Visit Sleep Disorders Ctr [facility] [address] [place] [phone] Audrey Lee, [address] [place] [address] Health Maintenance Due Date Last Done Comments Alpha-1 Antitrypsin 1974 CKD PHOS USE SMARTSET 41819 1974 DTap/Tdap Vaccines (1 - Tdap) 1975 [...] 04/28/2024, , 09/09/2023 CKD HGB USE SMARTSET 17416 06/15/202506/15, 06/15/2024, 05/27/2024, Additional history exists Diabetic [...] as of this encounter Visit Diagnoses Diagnosis [facility] current use of anticoagulant therapy- Primary Longstanding persistent atrial fibrillation (HCC) History of deep venous thrombosis (DVT) of distal vein of left lower extremity documented in this encounter Care Teams Cabin Cleaning Supervisor Relationship Specialty Start Date End Date Charley Crane MD [address] [place] [address] PCP - General Internal Medicine 06/04/23 documented as of this encounter
--- OUTSIDE RECORDS SUMMARY | 2024-07-21 01:55 | External Medical Summary | Summary of Care ---
Author Name Unknown Organization [facility] Address [address] [place] [address] Phone [phone] Care Team Providers Care Project Management Director Name Role Phone Charley Crane MD Primary Care Provider [phone] Encounter Details Date Type Department Care Team (Late st Contact Info) Description 07/09/2024 8:30 AM EDT [facility] [address] [place] [address] Michelle Kim, RN [address] [place] [address] Allergies No known active allergiesdocumented as of [...] 4 Active Carvedilol 3.125 MG Oral Tablet (Coreg)Indication s:Longstanding persistent atrial fibrillation (HCC),Hypertensio n goal BP (blood pressure) < 130/80,Chronic heart failure with preserved ejection fraction (HCC) Take 1 Tablet by mouth 2 times a day with morning and evening meals. 180 Tablet 3 4 Active Ipratropium-Albut blaire 0.5-2.5 (3) MG/3ML Inhalation [...] rescue kit. 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 Jardiance) Remote Patient Monitoring Vendor: [facility] [place] Device(s): Connected Scale Continuous [...] Classes - JULIA Class D - Inhaled Atlanlxlvaraoe-YLNR-JTQY Combination Inhaler (Sandro) Remote Patient Monitoring Vendor: [facility] Device(s): Continuous Monitoring Device Traditional Scale Self-Management plan High frequency nebulizer treatments every 4-6 hours around the clock Exacerbation plan Chest Xray Additional Comments: On continuous o2 2-3lpm Bipap at night Body mass index (BMI) of 40. 0 to 44.9 in adult 07/08/2023 07/09/2024 Overview: Per Obesity protocol Atherosclerosis of elim [place] co 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 pectoris 07/05/2023 [...] No 02/10/2024 Does the household have a unm hospitallar source of income? (Household - for [...] on file documented as of this encounter Last Filed Vital Signs Vital Sign Reading Time Taken Comments Blood Pressure 102/54 07/09/2024 9:34 AM EDT Pulse 50 07/09/2024 9:34 AM EDT Temperature 36.3 C (97.3 F) 07/09/2024 9 :34 AM EDT Respiratory Rate 18 07/09/2024 9:34 AM EDT Oxygen Saturation 97% 07/09/2024 9:3 4 AM EDT o2 on at 2.5 l/min via nc Inhaled Oxygen Concentration - - Weight - - Height - - Body Mass Index - - documented in this encounter Progress Notes * Michelle Kim RN - 07/09/2024 9:31 AM EDT Current Concerns: Pt had DTP last week and then started on COPD rescue kit of doxy and prednisone Has finished prednisone, has a couple days left of abx Pt reports he still has "a little cough" with light yellow mucus but has improved SOB has also improved and oxygen levels have been averaging mid 90's with o2 on at 2.5 l/min Noted rhonchi and wheezing throughout lung saxena Had pt do nebulizer treatment Had some improvement in lung sounds and cough after doing nebulizer treatment Advised to be doing treatment 4x a day and using flutter valve after each tx 10x Stage 2 on left buttock - zinc oxide applied Area measures 2cm x 1.5cm x 0.1cm He also has an abrasion type area with first layer skin sloughed off b/l inner thighs Zinc oxide applied to all areas There is light pink under both breasts Nystatin cream applied Pt has bowel movement in shorts and on buttocks - cleansed bottom well before applying zinc oxide cream Physical Exam: Physical Exam Constitutional: General: He is not in acute distress. Appearance: He is obese. Cardiovascular: Rate and Rhythm: Normal rate and regular rhythm. Pulses: Normal pulses. Heart sounds: Normal heart sounds. Pulmonary: Effort: Pulmonary effort is normal. Breath sounds: Wheezing and rhonchi present. Abdominal: Palpations: Abdomen is soft. Musculoskeletal: Right lower leg: Edema present. Left lower leg: Edema present. Skin: General: Skin is warm and dry. Neurological: Mental Status: He is alert and oriented to person, place, and time. Review of Systems: Review of Systems Constitutional: Positive for fatigue. Respiratory: Positive for cough (light yellow mucus) and shortness of breath (BERRY - at baseline). Cardiovascular: Positive for leg swelling. Gastrointestinal: Negative. Genitourinary: Negative. Musculoskeletal: Positive for arthralgias and gait problem. Skin: Positive for wound. Psychiatric/Behavioral: Negative. Care Plan Goal Progress: Orders Placed: No orders of the defined types were placed in this encounter. Medications Given: Care Gaps: documented in this encounter Plan of Treatment Upcoming Encounters Date Type Department Care Team (Late st Contact Info) Description 07/11/2024 11:30 AM EDT Scheduled Telephone [facility], [address] [place] [address] Region, Nurse [facility] [place] [address] 07/16/2024 7:05 AM EDT Laboratory Lab Mobile Phlebotomy [facility] [address] [facility] [place] [address] [facility], [facility] Mobile Home Draw [address] [facility] [place] [address] 07/17/2024 6:00 AM EDT Anticoagulation [facility], [facility] [place] [address] [place] [address] [place] [address] [facility], [address] [place] [address] 07/27/2024 2:15 PM EDT Office Visit Interventional Pain Center, [facility] 132 [facility] [place] [address] Gely Gilmore MD [address] [place] [address] 08/03/2024 3:00 PM EDT Office Visit Orthopaedics [facility] 132 [facility] [place] [address] Cm Dawson, 132 [facility] [place] [address] 08/10/2024 12:20 PM EDT Office Visit [place] [address] [place] [phone] Charley Crane MD [address] [place] [address] 09/02/2024 3:00 PM EST Office Visit Sleep Disorders Ctr [facility] [address] [place] [address] Audrey Lee, [address] [place] [address] Health Maintenance Due Date Last Done Comments Alpha-1 Antitrypsin 1974 CKD PHOS USE SMARTSET 02747 1974 DTap/Tdap Vaccines (1 - Tdap) 1975 [...] 04/28/2024, , 09/09/2023 CKD HGB USE SMARTSET 31606 06/15/202506/15, 06/15/2024, 05/27/2024, Additional history exists Diabetic [...] filedocumented as of this encounter Care Teams Project Management Director Relationship Specialty Start Date End Date Chalrey Crane MD [address] [place] [address] PCP - General Internal Medicine 06/04/23 documented as of this encounter
--- OUTSIDE RECORDS SUMMARY | 2024-07-21 01:55 | External Medical Summary ---
Author Name Unknown Address Unknown Organization [facility] [address] [place] [address] Laboratory Report Ordering Provider Test Date Status NAVARROSANCHORADU 07/07/2024 08:14:00 Final Standing order for pt/inr. < br/>Please draw pt/inr every 1 to 4 weeks as requested
Results to [facility]

Warfarin Therapy
INR: 2.0-3.0 conventional anticoagulation
INR: 2.5-3.5 high intensity anticoagulation Observation Date Value Abnormality Reference (Units ) Status PT 07/07/2024 08:14:00 28.6 Above high normal 11 .6-15.2 (seconds) Final INR 07/07/2024 08:14:00 2.7 Above high normal 0. 8-1.2 Final Performing Location [facility] [address] [place] [address]
--- OUTSIDE RECORDS SUMMARY | 2024-07-21 01:55 | External Medical Summary | Summary of Care ---
Author Name Unknown Organization [facility] Address [address] [place] [address] Phone [phone] Care Team Providers Care Live Ammunition Inspector Name Role Phone Charley Crane MD Primary Care Provider [phone] Reason for Visit * Reason Onset Date Comments Order Request 07/03/2024 Encounter Details Date Type Department Care Team (Late st Contact Info) Description 07/03/2024 Telephone [facility] [address] [place] [address] Charley Crane MD [address] [place] [address] Order Request Allergies No known [...] rescue kit. 20 Capsule 4 Active Nystatin 098432 UNIT/GM External Cream Apply topically to affected [...] goal LDL below 70 07/17/2023 Atherosclerosis of [place] co 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 pectoris 07/05/2023 [...] Classes - JULIA Class D - Inhaled Keszncozvhdxbo-OMDR-PIDO Combination Inhaler (Silverllegy) Remote Patient Monitoring Vendor: [facility] Device(s): Continuous Monitoring Device Traditional Scale Self-Management plan High frequency nebulizer treatments every 4-6 hours around the clock Exacerbation plan Chest Xray Additional Comments: On continuous o2 2-3lpm Bipap at night Body mass index (BMI) of 40. 0 to 44.9 in adult 07/08/2023 07/09/2024 Overview: Per Obesity protocol Atherosclerosis of [place] co 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 pectoris 07/05/2023 [...] Telephone Encounter - Charley Crane MD - 07/09/2024 2:08 PM EDT Ordered DME Please fax * Telephone Encounter - Jolanta Marie LPN - 07/08/2024 12:29 PM EDT Pt requesting a DME order supplies for oxygen to be sent to [facility] (phone [phone], fax [phone]). Order is pending. Please advise. * Telephone Encounter - Magui Lou CPhT - 07/07/2024 12:38 PM EDT Patient's Daughter calling to request a call back to go over her fathers oxygen please OSBALDO @ [phone] Thank you, Magui Lou Mingler Operator II [facility] ([facility]) (formerly Telepharmacy) 07/07/2024 12:38 PM * Telephone Encounter - Sugey Gonzalez OSA - 07/03/2024 2:22 PM EDT Pt calling stating that he would like to switch to [facility] (phone [phone], fax [phone]) to get his oxygen supplies. He needs concentrator and portable tank and 7 foot tubing with nose piece for travel. He currently has these supplies but needs to return them to [facility]. These was previously ordered for himby his primary care provider in [place] (Dr Booth). documented in this encounter Plan of Treatment Upcoming Encounters Date Type Department Care Team (Late st Contact Info) Description 07/11/2024 11:30 AM EDT Scheduled Telephone [facility], [facility] 132 [facility] [place] [address] [facility], Nurse [facility] 132 [facility] [place] [address] 07/16/2024 7:05 AM EDT Laboratory Lab Mobile Phlebotomy [facility] [address] [place] [address] [facility], [facility] Mobile Home Draw [address] [facility] [place] [address] 07/17/2024 6:00 AM EDT Anticoagulation Central[facility] Clinical Pharmacy Services, [place] [address] [place] [address] [place] [address] [facility], [facility] [address] [place] [address] 07/27/2024 2:15 PM EDT Office Visit Interventional Pain Center, [facility] 132 [facility] [place] [address] Gely Gilmore MD [address] [place] [address] [place] [address] 08/03/2024 3:00 PM EDT Office Visit Orthopaedics [facility] 132 [facility] [place] [address] Cm Dawson, DO 132 [facility] [place] [address] 08/10/2024 12:20 PM EDT Office Visit [address] [phone] Charley Crane MD [address] [place] [address] 09/02/2024 3:00 PM EST Office Visit Sleep Disorders Ctr [facility] 132 [facility] [place] [phone] Audrey Lee, DO 132 [facility] [place] [address] Health Maintenance Due Date Last Done Comments Alpha-1 Antitrypsin 1974 CKD PHOS USE SMARTSET 22501 1974 DTap/Tdap Vaccines (1 - Tdap) 1975 [...] 04/28/2024, , 09/09/2023 CKD HGB USE SMARTSET 40916 06/15/202506/15, 06/15/2024, 05/27/2024, Additional history exists Diabetic [...] syndrome O2 dependent Dependence on supplemental oxygen COPD, group D, by GOLD 2017 classification (HCC) documented in this encounter Care Teams Live Ammunition Inspector Relationship Specialty Start Date End Date Charley Crane MD [address] [place] [address] PCP - General Internal Medicine 06/04/23 documented as of this encounter
--- OUTSIDE RECORDS SUMMARY | 2024-07-21 01:55 | External Medical Summary | Summary of Care ---
Author Name Unknown Organization [facility] Address [address] [facility] [place] [address] Phone [phone] Care Team Providers Care Director Talent Acquisition Name Role Phone Charley Crane MD Primary Care Provider [phone] Reason for Visit * Reason Onset Date Comments [facility]: Maintenance 07/03/2024 Encounter Details Date Type Department Care Team (Late st Contact Info) Description 07/03/2024 12:45 PM EDT Scheduled Telephone [facility], [facility] 132 [facility] [place] [address] Coordinator, [facility] [address] [facility] [place] [address] Allergies No known active allergiesdocumented as of [...] rescue kit. 20 Capsule 06/30/2024 Active Nystatin 247817 UNIT/GM External Cream Apply topically to affected [...] classification 11/04 Overview: Per COPD GOLD Classification assisted current use of anticoagulant therapy 0 2023 Longstanding persistent atrial fibrillation 06/29 Last Assessment & Plan: Rate controlled Continue coumadin Hypertension goal BP (blood pressure) < 130/80 0 07/17/2023 Dyslipidemia, goal LDL below 70 07/17/2023 Body mass index (BMI) of 40.0 to 44.9 in adult 0 07/08/2023 Overview: Per Obesity protocol Atherosclerosis of [place] co 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 Jardiance) Remote Patient Monitoring Vendor: [facility] [place] Device(s): Connected Scale Continuous Monitoring Device Self [...] Classes - JULIA Class D - Inhaled Wgygcxhyhjhnxo-AFFI-SFQA Combination Inhaler (Sandro) Remote Patient Monitoring Vendor: [facility] Device(s): Continuous Monitoring Device Traditional Scale Self-Management plan High frequency nebulizer treatments every 4-6 hours around the clock Exacerbation plan Chest Xray Additional Comments: On continuous o2 2-3lpm Bipap at night Atherosclerosis of [place] co 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 pectoris 07/05/2023 [...] Telephone Encounter - Ashely Chapman RN - 07/03/2024 12:16 PM EDT Images from the original note were not included. [facility] Telephonic Nurse Follow-Up Call [facility] Subprogram: Focused Care Management (3-9 months) Follow [...] Double dose of Torsemide for 3 days Nystatin cream for rash under his breast Desitin barrier cream for sacral wound Subjective: Condition Status: Improvement in symptoms but not at baseline Current Concerns: Pt reports that he is getting better slowly. Less SOB today. O2 sats above 95% on 2.5L O2 Denies cough, chest tightness or wheezing. HH PT this afternoon. Will walk pt and do O2 sat walking. Weight today 300 lbs. States that it has been fluctuating but he feels good. Pt denies Chest pain, abd bloating, lightheadedness or dizziness LE edema improved from yesterday. Pt completed DTP today. Does not feel like he needs further DTP at this time Rescue kit started on 07/01 Pt has not picked up nystatin cream or Desitin for sacral wound but will today. Offered continued follow up over weekend. Pt stated call Saturday, states that if he has an issue before that he will call in to intake for assistance. Disposition: Weekend call scheduled Future Visits Scheduled: Future Appointments-next 60 days Date/Time Provider Specialty Dept Phone 07/03/2024 12:45 PM Coordinator, Xiomara Sunshine [facility] [phone] 07/06/2024 11:00 AM (Arrive by 10:45 AM) Cm Dawson DO Orthopedics [phone] 07/07/2024 1:00 PM (Arrive by 12:45 PM) Charley Crane MD Family Medicine [phone] 07/09/2024 8:30 AM Michelle Kim RN [facility] [phone] 07/16/2024 7:00 AM [facility], [facility] Mobile Home Draw Laboratory Processing [phone] 07/17/2024 6:00 AM [facility] [phone] 07/27/2024 2:15 PM (Arrive by 2:00 PM) Gely Gilmore MD Pain Medicine [phone] 08/10/2024 12:20 PM (Arrive by 12:05 PM) Charley Crane MD Family Medicine [phone] 09/02/2024 3:00 PM (Arrive by 2:45 PM) Audrey Lee DO Sleep Disorders [phone] Ashely Chapman, RN documented in this encounter Plan of Treatment Upcoming Encounters Date Type Department Care Team (Late st Contact Info) Description 07/05/2024 11:45 AM EDT Scheduled Telephone [facility], [facility] [address] [facility] [place] [address] [facility], Nurse [facility] [address] [facility] [place] [address] 07/06/2024 11:00 AM EDT Office Visit Orthopaedics [facility] [address] [place] [address] Cm Dawson DO [address] [place] [address] 07/07/2024 1:00 PM EDT Office [facility] [address] [place] [phone] Charley Crane MD [address] [place] [address] 07/09/2024 8:30 AM EDT Home Visit [facility], [facility] [address] [place] [address] Michelle Kim, [place] [address] [place] [address] 07/16/2024 7:00 AM EDT Laboratory Lab Mobile Phlebotomy [facility] [address] [place] [address] [facility], [facility] Mobile Home Draw [address] [place] [address] 07/17/2024 6:00 AM EDT Anticoagulation Central[facility] Clinical [facility]acy Services, [facility] [place] [address] [place] [address] [place] [address] [facility], [address] [place] [address] 07/27/2024 2:15 PM EDT Office Visit Interventional Pain Center, [facility] [place] [address] Gely Gilmore MD [address] [place] [address] 08/10/2024 12:20 PM EDT Office Visit Family [address] [phone] Charley Craen MD [address] [place] [address] 09/02/2024 3:00 PM EST Office Visit Sleep Disorders Ctr [facility] 132 [facility] [place] [phone] Audrey Lee DO 132 [facility] [place] [address] Health Maintenance Due Date Last Done Comments Alpha-1 Antitrypsin 1974 CKD PHOS USE SMARTSET 29075 1974 DTap/Tdap Vaccines (1 - Tdap) 1975 Cologuard 2001 Colonoscopy 2001 Colorectal Cancer Screening 2001 Fecal Occult Blood Test 2001 Sigmoidoscopy 2001 AAA Screening 2021 COVID-19 Vaccine ( - 2022- season) 2024 Influenza Vaccine (FLU shot) (#1) 2024 07/05/2023, 07/05/2023 GFR 12/16/2024 06/15/2024, 0811/2023, 05/27/2024, Additional history exists HbA1c 12/16/2024 06/15/2024, 01/26, 06/21/2023 Adult Wellness Visit 02/09/2025 02/10/2024 Albumin/Creatinine Ratio 02/09/2025 02/10/2024 Depression Screening 02/09/2025 02/10/2024 Diabetic Eye Exam 04/28/2025 04/28/2024, , 09/09/2023 CKD HGB USE SMARTSET 39078 06/15/202506/15, 06/15/2024, 05/27/2024, Additional history exists Diabetic [...] filedocumented as of this encounter Care Teams Director Talent Acquisition Relationship Specialty Start Date End Date Charley Crane MD [address] [place] [address] PCP - General Internal Medicine 06/04/23 documented as of this encounter
--- OUTSIDE RECORDS SUMMARY | 2024-07-21 01:55 | External Medical Summary | Summary of Care ---
Author Name Unknown Organization [facility] Address [address] [place] [address] Phone [phone] Care Team Providers Care Aquatics Instructor Name Role Phone Charley Crane MD Primary Care Provider [phone] Reason for Visit * Reason Onset Date Comments Order Request 07/03/2024 Encounter Details Date Type Department Care Team (Late st Contact Info) Description 07/03/2024 Telephone [facility] [address] [place] [address] Charley Crane MD [address] [place] [address] Order Request Allergies No known [...] rescue kit. 20 Capsule 4 Active Nystatin 743472 UNIT/GM External Cream Apply topically to affected [...] classification 11/04 Overview: Per COPD GOLD Classification group home current use of anticoagulant therapy 0 2023 Longstanding persistent atrial fibrillation 06/29 Last Assessment & Plan: Rate controlled Continue coumadin Hypertension goal BP (blood pressure) < 130/80 0 07/17/2023 Dyslipidemia, goal LDL below 70 07/17/2023 Atherosclerosis of [place] 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 Jardiance) Remote Patient Monitoring Vendor: [facility] [place] Device(s): Connected Scale Continuous Monitoring Device Self [...] Classes - JULIA Class D - Inhaled Qarhouiazlnnfr-FMZQ-GWDR Combination Inhaler (Silverllegy) Remote Patient Monitoring Vendor: [facility] Device(s): Continuous Monitoring Device Traditional Scale Self-Management plan High frequency nebulizer treatments every 4-6 hours around the clock Exacerbation plan Chest Xray Additional Comments: On continuous o2 2-3lpm Bipap at night Body mass index (BMI) of 40. 0 to 44.9 in adult 07/08/2023 07/09/2024 Overview: Per Obesity protocol Atherosclerosis of [place] 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 pectoris 07/05/2023 [...] encounter Miscellaneous Notes * Telephone Encounter - Javed Fong OSA - 07/09/2024 2:46 PM EDT Faxed 07/09 * Telephone Encounter - Charley Crane MD - 07/09/2024 2:08 PM EDT Ordered DME Please fax * Telephone Encounter - Jolanta Marie LPN - 07/08/2024 12:29 PM EDT Pt requesting a DME order supplies for oxygen to be sent to [facility] (phone [phone], fax [phone]). Order is pending. Please advise. * Telephone Encounter - Magui Lou CPhT - 07/07/2024 12:38 PM EDT Patient's Daughter calling to request a call back to go over her fathers oxygen please OSBALDO @ [phone] Thank you, Magui Lou Manager [facility] II [facility] ([facility]) (formerly Telepharmacy) 07/07/2024 12:38 PM * Telephone Encounter - Sugey Gonzalez OSA - 07/03/2024 2:22 PM EDT Pt calling stating that he would like to switch to [facility] (phone [phone], fax [phone]) to get his oxygen supplies. He needs concentrator and portable tank and 7 foot tubing with nose piece for travel. He currently has these supplies but needs to return them [facility]. These was previously ordered for himby his primary care provider in [place] (Dr Booth). documented in this encounter Plan of Treatment Upcoming Encounters Date Type Department Care Team (Late st Contact Info) Description 07/11/2024 11:30 AM EDT Scheduled Telephone [facility], [facility] [address] [facility] [place] [address] [facility], Nurse [facility] [address] [facility] [place] [address] 07/16/2024 7:05 AM EDT Laboratory Lab Mobile Phlebotomy [facility] [address] [facility] [place] [address] [facility], Gml Mobile Home Draw [address] [facility] [place] [address] 07/17/2024 6:00 AM EDT Anticoagulation [facility], Oscar Peace [address] [place] [address] [place] [address] [facility], [address] [place] [address] 07/27/2024 2:15 PM EDT Office Visit Interventional Pain Center, [facility] [address] [facility] [place] [address] Gely Gilmore MD [address] [place] [address] 08/03/2024 3:00 PM EDT Office Visit Orthopaedics [facility] [address] [facility] [place] [address] Cm Dawson, DO [address] [facility] [place] [address] 08/10/2024 12:20 PM EDT Office Visit [facility] [address] [place] [phone] Charley Crane MD [address] [place] [address] 09/02/2024 3:00 PM EST Office Visit [facility] [address] [facility] [place] [phone] Audrey Lee, DO [address] [place] [address] Health Maintenance Due Date Last Done Comments Alpha-1 Antitrypsin 1974 CKD PHOS USE SMARTSET 37511 1974 DTap/Tdap Vaccines (1 - Tdap) 1975 [...] 04/28/2024, , 09/09/2023 CKD HGB USE SMARTSET 49130 06/15/202506/15, 06/15/2024, 05/27/2024, Additional history exists Diabetic [...] (HCC) documented in this encounter Care Teams Aquatics Instructor Relationship Specialty Start Date End Date Charley Crane MD [address] [facility] [place] [address] PCP - General Internal Medicine 06/04/23 documented as of this encounter
--- OUTSIDE RECORDS SUMMARY | 2024-07-21 01:56 | External Medical Summary | Summary of Care ---
Author Name Unknown Organization [facility] Address [address] [facility] [place] [address] Phone [phone] Care Team Providers Care Nurse Staff Community Health Name Role Phone Charley Crane MD Primary Care Provider [phone] Reason for Visit * Reason Onset Date Comments [facility]: Maintenance 07/02/2024 Encounter Details Date Type Department Care Team (Late st Contact Info) Description 07/02/2024 1:00 PM EDT Scheduled Telephone [facility], [facility] [address] [facility] [place] [address] Coordinator, [facility] [address] [facility] [place] [phone] Allergies No known active allergiesdocumented as of [...] COPD rescue kit. 20 Capsule 06/30/2024 Active documented as of this encounter (statuses [...] classification 11/04 Overview: Per COPD GOLD Classification rn long term care current use of anticoagulant therapy 0 2023 Longstanding persistent atrial fibrillation 06/29 Last Assessment & Plan: Rate controlled Continue coumadin Hypertension goal BP (blood pressure) < 130/80 0 07/17/2023 Dyslipidemia, goal LDL below 70 07/17/2023 Body mass index (BMI) of 40.0 to 44.9 in adult 0 07/08/2023 Overview: Per Obesity protocol Atherosclerosis of [place] co 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 Jardiance) Remote Patient Monitoring Vendor: [facility] [place] Device(s): Connected Scale Continuous Monitoring Device Self [...] Classes - JULIA Class D - Inhaled Ixryxbjxbwymzu-FKHV-VROB Combination Inhaler ([place]) Remote Patient Monitoring Vendor: [facility] Device(s): Continuous Monitoring Device Traditional Scale Self-Management plan High frequency nebulizer treatments every 4-6 hours around the clock Exacerbation plan Chest Xray Additional Comments: On continuous o2 2-3lpm Bipap at night Atherosclerosis of [place] 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 pectoris 07/05/2023 [...] from the original note were not included. [facility] Telephonic Nurse Follow-Up Call [facility] Subprogram: Focused Care Management (3-9 months) [...] size or depth of wound. Per pt, [facility] is to come today to take pic of wound. Verified home visit with Chacha EPSTEIN for today. Advised pt to keep sacral [...] 127.9 kg (282 lb) Disposition: Routed to [facility] and/or [facility] Care Team for further advice and Follow up call scheduled for tomorrow with ELDER Grinder Set Up Operator [employer] Future Visits Scheduled: Future Appointments-next 60 days Date/Time Provider Specialty Dept Phone 07/02/2024 1:00 PM Coordinator, [facility] [phone] 07/03/2024 6:00 AM [facility] [phone] 07/03/2024 12:45 PM Coordinator, [facility] [phone] 07/06/2024 11:00 AM (Arrive by 10:45 AM) Cm Dawson DO Orthopedics [phone] 07/09/2024 8:30 AM Michelle Kim RN [facility] [phone] 07/27/2024 2:15 PM (Arrive by 2:00 PM) Gely Gilmore MD Pain Medicine [phone] 08/10/2024 12:20 PM (Arrive by 12:05 PM) Charley Crane MD Family Medicine [phone] 09/02/2024 3:00 PM (Arrive by 2:45 PM) Audrey Lee DO Sleep Disorders [phone] Ashely Chapman, RN documented in this encounter Plan of Treatment Upcoming Encounters Date Type Department Care Team (Late st Contact Info) Description 07/03/2024 6:00 AM EDT Anticoagulation [facility], Oscar Peace [address] [place] [address] [place] [address] [facility], [address] [place] [address] 07/03/2024 12:45 PM EDT Scheduled Telephone [facility], [facility] [address] [place] [address] Coordinator, [facility] [address] [place] [address] 07/06/2024 11:00 AM EDT Office Visit Orthopaedics [facility] [address] [place] [address] Cm Dawson DO [address] [place] [address] 07/09/2024 8:30 AM EDT Home Visit [facility], [facility] [address] [place] [address] Michelle Kim, COLL[place] [address] [place] [address] 07/27/2024 2:15 PM EDT Office Visit Interventional Pain Center, [facility] [address] [facility] [place] [address] Gely Gilmore MD [address] [place] [address] 08/10/2024 12:20 PM EDT Office Visit [facility] [place] [address] [place] [phone] Charley Crane MD [address] [place] [address] 09/02/2024 3:00 PM EST Office Visit [facility] Ctr [facility] [place] [address] [facility] [place] [phone] Audrey Lee DO [facility] [address] Health Maintenance Due Date Last Done Comments Alpha-1 Antitrypsin 1974 CKD PHOS USE SMARTSET 21817 1974 DTap/Tdap Vaccines (1 - Tdap) 1975 [...] 04/28/2024, , 09/09/2023 CKD HGB USE SMARTSET 49342 06/15/202506/15, 06/15/2024, 05/27/2024, Additional history exists Diabetic [...] filedocumented as of this encounter Care Teams Nurse Staff Community Health Relationship Specialty Start Date End Date Charley Crane MD [address] [place] [address] PCP - General Internal Medicine 06/04/23 documented as of this encounter
--- OUTSIDE RECORDS SUMMARY | 2024-07-21 01:56 | External Medical Summary | Summary of Care ---
Author Name Unknown Organization [facility] Address [address] [place] [address] Phone [phone] Care Team Providers Care Intraoperative Neuro Tech Name Role Phone Charley Crane MD Primary Care Provider [phone] Encounter Details Date Type Department Care Team (Late st Contact Info) Description 07/01/2024 8:50 AM EDT Telemedicine [facility] [address] [place] [address] Fabian Gonzalez PA-C [address] [place] [address] Chacha Kennedy, Pending Sale To [facility] [address] [place] [address] COPD exacerbation (HCC)*; Chronic respiratory failure with hypoxia and hypercapnia (HCC); Hypertensive heart disease with chronic diastolic congestive heart failure (HCC); Longstanding persistent atrial fibrillation (HCC); Type 2 diabetes mellitus with hemoglobin A1c goal of less than 7.0% (HCC); Advanced care planning/counseling discussion Allergies No known active allergiesdocumented as of [...] Shortness of Breath or Wheezing. 54 g 01/20/2024 Active Fluticasone Propionate 50 MCG/ACT Nasal [...] classification 11/04 Overview: Per COPD GOLD Classification retirement current use of anticoagulant therapy 0 2023 Longstanding persistent atrial fibrillation 06/29 Last Assessment & Plan: Rate controlled Continue coumadin Hypertension goal BP (blood pressure) < 130/80 0 07/17/2023 Dyslipidemia, goal LDL below 70 07/17/2023 Body mass index (BMI) of 40.0 to 44.9 in adult 0 07/08/2023 Overview: Per Obesity protocol Atherosclerosis of [place] 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 pectoris 07/05/2023 [...] Jardiance) Remote Patient Monitoring Vendor: [facility] Device(s): Connected Scale Continuous Monitoring Device Self [...] Classes - JULIA Class D - Inhaled Vkqehxywqthqqc-[id number]-[id number] Combination Inhaler (Sandro) Remote Patient Monitoring Vendor: [facility] Device(s): Continuous Monitoring Device Traditional Scale Self-Management plan High frequency nebulizer treatments every 4-6 hours around the clock Exacerbation plan Chest Xray Additional Comments: On continuous o2 2-3lpm Bipap at night Atherosclerosis of [place] 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 pectoris 07/05/2023 [...] No 02/10/2024 Does the household have a [facility] source of income? (Household - for ages [...] Sign Reading Time Taken Comments Blood Pressure 122/84 07/01/2024 9:18 AM EDT Pulse 63 07/01/2024 9:18 AM EDT Temperature 35.2 C (95.3 F) 07/01/2024 9:18 AM ED T Respiratory Rate 20 07/01/2024 9:18 AM EDT Oxygen Saturation 93% 07/01/2024 9:18 AM EDT Inhaled Oxygen Concentration - - Weight - - Height - - Body Mass Index - - documented in this encounter Progress Notes * Chacha Kennedy, [facility] - 07/01/2024 9:19 AM EDT Telemedicine visit: Yes Patient location: HOME. I was not in a hospital or clinic location. After connecting through televideo, patient was verified with two unique identifiers. Patient (or authorized legal career representative) was then informed that this was a Telemedicine visit and being conducted confidentially over secure lines. Methods to assure confidentiality were taken. Patient acknowledged consent and understanding of privacy and security of the Telemedicine visit. The patient agreed to participate. [facility] ([facility]) documentation: CHW assisted Fabian Gonzalez PA-C with telehealth visit this date * Fabian Gonzalez PA-C - 07/01/2024 9:16 AM EDT Images from the original note were not included. [facility] Problem Oriented Charting Provider Visit Date: 07/01/2024 Time: 9:16 AM [facility] Sub-Program: Focused Care Management (3-9 months) Assessment and Plan #1 COPD exacerbation (HCC) (Primary) #2 Chronic respiratory failure with hypoxia and hypercapnia (HCC) Assessment & Plan: Continue supplemental o2 Monitors with pulse ox #3 Hypertensive heart disease with chronic diastolic congestive heart failure (HCC) Assessment & Plan: "RED FLAG" HF Symptoms: [...] for 2 more days Monitor weights daily #4 Longstanding persistent atrial fibrillation (HCC) Assessment & Plan: Rate controlled Continue coumadin #5 Type 2 diabetes mellitus with hemoglobin A1c goal of less than 7.0% ([facility]) Assessment & Plan: "RED FLAG" Diabetic symptoms: [...] A1C - [facility] 5.5 06/21/2023 12:33 PM #6 Advanced care planning/counseling discussion Additional Medical Decision Making: Patient lives in 2 story home with multiple family members, has 1st floor setup Daughter manages medications Took additional torsemide yesterday, instructed to take 40mg additional today and tomorrow as well Start prednisone today, pickup and start doxy as soon as available Continue to monitor weights and o2 level Will have nursing follow up by phone next 2 days Scheduled appointments in the next 60 days: Future Appointments-next 60 days Date/Time Provider Specialty Dept Phone 07/02/2024 7:00 AM [facility] Processing [phone] 07/03/2024 6:00 AM [facility] [phone] 07/06/2024 11:00 AM (Arrive by 10:45 AM) Cm Dawson, Orthopedics [phone] 07/09/2024 8:30 AM Michelle Kim RN [facility] [phone] 07/27/2024 2:15 PM (Arrive by 2:00 PM) Gely Gilmore MD Pain Medicine [phone] 08/10/2024 12:20 PM (Arrive by 12:05 PM) Charley Crane MD Family Medicine [phone] 09/02/2024 3:00 PM (Arrive by 2:45 PM) Audrey Lee DO Sleep Disorders [phone] A total of 20 minutes was spent face to face (via video-based telemedicine if designated as a telemedicine visit) Subjective Subjective Is this a Telemedicine Visit? Yes, Patient location: HOME. I was not in a hospital or clinic location. After connecting through televideo, patient was verified with two unique identifiers. Patient (or authorized legal career representative) was then informed that this was a Telemedicine visit and being conducted confidentially over secure lines. Methods to assure confidentiality were taken. Patient acknowledged consent and understanding of privacy and security of the Telemedicine visit. The patient agreed to participate. Reason For [facility] Visit: Follow-Up Current Concerns: Bala Coronado Jr. is a 68 year old male seen today for a [facility] provider visit. PMH includes CHF, COPD, chronic respiratory failure, HTN, afib, pulmonary HTN, CRISTOFER, CKD3, DM2 Today's concerns are: Recent increased SOB and cough Called [facility] yesterday, instructed to start rescue kit Has prednisone, but needs to get doxy from pharmacy yet Continue on o2 at 2.5lpm, o2 sats stable States his weight is stable, although hasn't weighed yet today, does not increased leg edema and took additional torsemide yesterday Using nebulizer 4xday Bipap at hs Denies fever/chills, sore throat, runny nose Additional Objective Objective Vitals: 07/01/24 0918 Temp: 35.2 C (95.3 F) Pulse: 63 Resp: 20 SpO2: 93% BP: 122/84 Last Weights: Wt Readings from Last 3 Encounters: 06/15/24 (!) 142.4 kg (314 lb) 06/03/24 135.6 kg (299 lb) 04/01/24 128.4 kg (283 lb) Last BPs: BP Readings from Last 4 Encounters: 07/01/24 122/84 06/18/24 126/72 06/15/24 122/76 06/03/24 112/64 General: alert, no distress, and obese Neuro: alert & oriented x 3 with fluent speech Heart: no murmur and irregularly irregular Lungs: decreased breath sounds, rales in bilat bases , no wheezing Abdomen: obese Ext: +edema bilat LE with chronic stasis changes Lab Review: I have reviewed the following results: BMP results Recent Labs Units 06/15/24 1440 05/29/24 1344 05/27/24 0540 SODIUM - [facility] mmol/L 136 134* 130* POTASSIUM - [facility] mmol/L 4.4 4.9 5.4* CHLORIDE - [facility] mmol/L 97* 92* 90* CO2 - [facility] mmol/L 26 29 23 CREATININE - [facility] mg/dL 0.9 0.9 1.2 BUN - [facility] mg/dL 41* 50* 82* Lipid panel results Recent Labs Units 02/10/24 1336 CHOLESTEROL - [facility] mg/dL 145 HDL CHOLESTEROL - [facility] mg/dL 46 TRIGLYCERIDES - [facility] mg/dL 75 CBC results Recent Labs Units 06/15/24 1440 05/27/24 0540 05/20/24 0538 WBC K/uL 11.20* 8.46 8.90 HGB g/dL 10.3* 11.1* 11.0* HCT % 32.9* 34.7* 35.7* PLT K/uL 256 309 361 HbA1c results Recent Labs Units 06/15/24 1440 02/10/24 1336 06/21/23 1233 HEMOGLOBIN A1C - [facility] % 6.2* 6.1* 5.5 Medication Review Daughter manages med box Fabian Gonzalez PA-C 9:16 AM *Communication sent to PCP (via autofax if non-[facility]), [facility] Care Team members,relevant Specialty Care Physicians* documented in this encounter Miscellaneous Notes * ACP (Advance Care Planning) - Fabian Gonzalez PA-C - 07/01/2024 10:09 AM EDT Patient-centered Communication 07/01/2024 The patient/surrogate voluntarily agreed to participate in advance care planning discussion. They were advised that this is a separate service which may incur out of pocket cost in the form of copayment and/or deductibles. Location: Home Individual(s) present for conversation: Patient Decisions Synopsis SmartLink Most Recent Value Past ~10 years 08/15/2023 09:03 Decisions CPR decision: Undecided about CPR 08/15/2023 Undecided about CPR Intubation/Mechanical Ventilation decision: Declines Intubation/mechanical ventilation 08/15/2023 Declines Intubation/mechanical ventilation Non-invasive ventilation or BIPAP decision: Patient chooses non-invasive ventilation. Select interventions below 08/15/2023 Patient chooses non-invasive ventilation. Select interventions below Non-Invasive Ventilation Interventions: Oxygen only;CPAP;BIPAP 08/15/2023 Oxygen only;CPAP;BIPAP Antibiotic therapy decision: Patient chooses Antibiotic therapy 08/15/2023 Patient chooses Antibiotic therapy IV hydration decision: Patient chooses IV hydration 08/15/2023 Patient chooses IV hydration Additional Comments Discerning What Matters Most to the Patient: Synbal SmartLink Most Recent Value Past ~10 years 07/01/2024 10:08 Discerning What Matters Most to the Patient In their own words, patient's UNDERSTANDING of their illness is: "my breathing is not good" 07/01/2024 "my breathing is not good" Their current SYMPTOMS include: Tiredness;Shortnes of breath;Reduced overall well being 07/01/2024 Tiredness;Shortnes of breath;Reduced overall well being They say their illness has CHANGED THEIR LIFE by: Less enjoyment (quality of life);Feel like a burden to family/loved ones 07/01/2024 Less enjoyment (quality of life);Feel like a burden to family/loved ones Other, patient defines as: has to rely on family 08/15/2023 The patient thinks COMPLICATIONS in the future may be: More hospitalizations 08/15/2023 The patient's HOPES are: Avoid the [place] [facility];Avoid intubation/mechanical ventilation 08/15/2023 Source: Content from [employer] Program Aligning Care With What Matters Most: Synopsis SmartLink Most Recent Value Past ~10 years 08/15/2023 09:03 Aligning Care With What Matters Most Interventions/Choices: CPR;Intubation/mechanical ventilation;Non-invasive ventilation or BIPAP;Antibiotic therapy;IV hydration 08/15/2023 CPR;Intubation/mechanical ventilation;Non-invasive ventilation or BIPAP;Antibiotic therapy;IV hydration Rationale for Decisions Synopsis SmartLink Most Recent Value Past ~10 years 08/15/2023 09:03 CPR Their fears/concerns about CPR decision are: hospital stay, being hooked up to machines 08/15/2023 hospital stay, being hooked up to machines Source: Content from [employer] Program 10 minutes spent in direct [id number] discussion today, Fabian Gonzalez PA-C * Assessment & Plan Note - Fabian Gonzalez PA-C - 07/01/2024 10:06 AM EDT Associated Problem(s): Type 2 diabetes mellitus with hemoglobin A1c goal of less than 7.0% (HCC) "RED FLAG" Diabetic symptoms: Excessive Thirst, Rapid [...] A1C - [facility] 5.5 06/21/2023 12:33 PM * Assessment & Plan Note - Fabian Gonzalez PA-C - 07/01/2024 9:45 AM EDT Associated Problem(s): Longstanding persistent atrial fibrillation (HCC) Rate controlled Continue coumadin * Assessment & Plan Note - Fabian Gonzalez PA-C - 07/01/2024 9:44 AM EDT Associated Problem(s): Hypertensive heart disease with chronic diastolic congestive heart failure (HCC) "RED FLAG" HF Symptoms: Leg Swelling Abdominal [...] for 2 more days Monitor weights daily * Assessment & Plan Note - Fabian Gonzalez PA-C - 07/01/2024 9:37 AM EDT Associated Problem(s): Chronic respiratory failure with hypoxia and hypercapnia (HCC) Continue supplemental o2 Monitors with pulse ox documented in this encounter Plan of Treatment Upcoming Encounters Date Type Department Care Team (Late st Contact Info) Description 07/03/2024 6:00 AM EDT Anticoagulation [facility], Oscar Peace [address] [place] [address] [place] [address] [facility], [address] [place] [address] 07/06/2024 11:00 AM EDT Office Visit Orthopaedics [facility] [address] [facility] [place] [address] Cm Dawson, [address] [facility] [place] [id number] 07/09/2024 8:30 AM EDT Home Visit [facility] [address] [facility] [place] [address] Michelle Kim, RN [address] [facility] [place] [id number] 07/27/2024 2:15 PM EDT Office Visit Interventional Pain Center, [facility] [address] [place] [address] Gely Gilmore MD [address] [place] [id number] 08/10/2024 12:20 PM EDT [address] [phone] Charley Crane MD [address] [place] [address] 09/02/2024 3:00 PM EST Office Visit Sleep Disorders Ctr [facility] [address] [place] [phone] Audrey Lee, [address] [place] [id number] Health Maintenance Due Date Last Done Comments Alpha-1 Antitrypsin 1974 CKD PHOS USE SMARTSET 92485 1974 DTap/Tdap Vaccines (1 - Tdap) 1975 [...] 04/28/2024, , 09/09/2023 CKD HGB USE SMARTSET 57083 06/15/202506/15, 06/15/2024, 05/27/2024, Additional history exists Diabetic [...] as of this encounter Visit Diagnoses Diagnosis COPD exacerbation (HCC)- Primary Obstructive chronic bronchitis with exacerbation Chronic respiratory failure with hypoxia and hypercapnia (HCC) Hypertensive heart disease with chronic diastolic congestive heart failure (HCC) Longstanding persistent atrial fibrillation (HCC) Type 2 diabetes mellitus with hemoglobin A1c goal of less than 7.0% (HCC) Advanced care planning/counseling discussion Other specified counseling documented in this encounter Care Teams Intraoperative Neuro Tech Relationship Specialty Start Date End Date Charley Crane MD [address] [place] [address] PCP - General Internal Medicine 06/04/23 documented as of this encounter
--- OUTSIDE RECORDS SUMMARY | 2024-07-21 01:56 | External Medical Summary | Summary of Care ---
Author Name Unknown Organization [facility] Address [address] [place] [address] Phone [phone] Care Team Providers Care Wide Area Network Systems Administrator Name Role Phone Charley Crane MD Primary Care Provider [phone] Reason for Visit * Reason Comments [facility]: Maintenance Encounter Details Date Type Department Care Team (Late st Contact Info) Description 06/03/2024 12:30 PM EDT Home Visit [facility], [facility] [address] [facility] [place] [address] Michelle Kim, RN 132 [facility] [address] Allergies No known active allergiesdocumented as of this encounter (statuses as of 06/27/2024) Medications Medication Sig Dispensed Refills Start Date [...] on face once daily 30 g 1 08/13/20 23 Active guaiFENesin ER 600 MG Oral Tablet Extended Release 12 Hour (Mucinex) Take 1 Tablet by mouth 2 times a day. Active Empagliflozin 10 MG Oral Tablet (Jardiance) Take 1 Tablet by mouth in the morning. 90 Tablet 3 01/20/20 24 Active Spironolactone 25 MG Oral Tablet (Aldactone) Take 1 Tablet by mouth in the morning. 90 Tablet 3 01/20/20 24 Active Additional Information Patient taking differently: 12.5 mgOral Daily(AM), Reported on 06/03/2024 Torsemide 20 MG Oral Tablet (Demadex) Take 2 tablets by mouth once daily 180 Tablet 3 01/20/20 24 Active Warfarin Sodium 10 MG Oral Tablet (Coumadin) Take 1 to 1.5 tablets by mouth every day in the evening or as directed by the anticoagulation clinic. 100 Tablet 3 01/20/20 24 Active Albuterol Sulfate HFA 108 (90 Base) MCG/ACT Inhalation Aerosol Solution Inhale 2 Puffs by mouth every 6 hours as needed for Shortness of Breath or Wheezing. 54 g 1 01/20/20 24 Active Doxycycline Hyclate 100 MG Oral Capsule Take 1 Capsule by mouth in the morning and 1 Capsule before bedtime. Until gone. COPD rescue kit. 20 Capsule 01/23/20 24 Active Fluticasone Propionate 50 MCG/ACT Nasal Suspension (Flonase) Administer 2 Sprays into each nostril in the morning. 16 g 1 02/10/20 24 Active Atorvastatin Calcium 80 MG Oral Tablet (Lipitor)Indicati ons:Dyslipidemia, goal LDL below 70 Take 1 Tablet by mouth in the morning. 90 Tablet 3 02/12/20 24 Active Carvedilol 3.125 MG Oral Tablet (Coreg)Indication s:Longstanding persistent atrial fibrillation (HCC),Hypertensio n goal BP (blood pressure) < 130/80,Chronic heart failure with preserved ejection fraction (HCC) Take 1 Tablet by mouth 2 times a day with morning and evening meals. 180 Tablet 3 04/28/20 24 Active Ipratropium-Albut blaire 0.5-2.5 (3) MG/3ML Inhalation Solution (Duoneb) INHALE THE CONTENTS OF 1 VIAL IN NEBULIZER EVERY 6 HOURS NEEDED FOR SHORTNESS OF BREATH 360 mL 3 05/12/20 24 Active Additional Information Patient taking differently: 3 mL Nebulizer, INHALE THE CONTENTS OF 1 VIAL IN NEBULIZER EVERY 4 HOURS NEEDED FOR SHORTNESS OF BREATH, Reported on 06/03/2024 Potassium Chloride ER 10 MEQ Oral Capsule Extended Release Take 1 Capsule by mouth every other day. 45 Capsule 1 05/22/20 24 Active Pantoprazole Sodium 40 MG Oral Tablet Delayed Release (Protonix) TAKE 1 TABLET BY MOUTH EVERY MORNING 90 Tablet 1 05/25/20 24 Active Trelegy Ellipta 100-62.5-25 MCG/ACT Aerosol Powder Breath Activated (Fluticasone-Umec lidinium-Vilanter ol) Inhale 1 Puff by mouth in the morning. 180 Blister Dosing Unit 3 06/01/20 24 Active Zoster Vac Recomb Adjuvanted 50 MCG/0.5ML Intramuscular Suspension Reconstituted (Shingrix) Inject 0.5 mL into a large muscle now and repeat dose in 60 to 180 days 1 Each 1 09/09/20 23 024 Discontinued(Tip flores preference/disc ontinuation) Zoster Vac Recomb Adjuvanted 50 MCG/0.5ML Intramuscular Suspension Reconstituted (Shingrix) Inject 0.5 mL into a large muscle now and repeat dose in 60 to 180 days 1 Each 1 11/26/19 24 024 Discontinued(Tip flores preference/disc ontinuation) Enalapril Maleate 10 MG Oral Tablet (Vasotec) Take 1 Tablet by mouth in the morning. 90 Tablet 3 01/20/20 24 024 Discontinued(Me dication List Clean Up) Isosorbide Mononitrate ER 60 MG Oral Tablet Extended Release 24 Hour (Imdur)Indication s:Hypertension goal BP (blood pressure) < 130/80 Take 1 Tablet by mouth in the morning. 90 Tablet 3 01/20/20 24 024 Discontinued(Me dication List Clean Up) predniSONE 20 MG Oral Tablet (Deltasone) Take 2 Tablets by mouth in the morning. COPD rescue kit. 10 Tablet 01/23/20 24 024 Discontinued documented as of this encounter (statuses as of 06/27/2024) Active Problems Problem Noted Date Diagnosed Date Stage 3 chronic kidney disease 06/15/2024 Hypertensive heart disease w ith chronic diastolic congestive heart failure 06/15/2024 Body mass index (BMI) 45.0-49.9, adult 4 [...] 07/08/2023 Overview: Per Obesity protocol Atherosclerosis of [place] co 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 Jardiance) Remote Patient Monitoring Vendor: [facility] [place] [facility] Device(s): Connected Scale Continuous [...] as of this encounter (statuses as of 06/27/2024) Resolved Problems Problem Noted Date Diagnosed Date [...] Classes - JULIA Class D - Inhaled Xadlvuyyjgecyo-XKEP-BLFN Combination Inhaler (Silverllegy) Remote Patient Monitoring Vendor: [facility] Device(s): Continuous Monitoring Device Traditional Scale Self-Management plan High frequency nebulizer treatments every 4-6 hours around the clock Exacerbation plan Chest Xray Additional Comments: On continuous o2 2-3lpm Bipap at night Atherosclerosis of [place] co 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 pectoris 07/05/2023 08/29/2023 Dyspnea 07/04/2023 08/13/2023 Occupational exposure in workplace 07/04/2023 02/14/2024 Chronic congestive heart failure 06/08/2023 07/05/2023 COPD, severe 06/08/2023 07/11/2023 Overview: Per COPD GOLD Classification Chronic hypoxemic respiratory failure 06/08/2023 07/04/2023 Chronic respiratory failure with hypoxia, on home oxygen therapy 06/08/2023 08/29/2023 Diabetes mellitus without complication 06/08/2023 08/29/2023 documented as of this encounter (statuses as of 06/27/2024) Immunizations Name Administration Dates Next Due Pneumococcal [...] Sign Reading Time Taken Comments Blood Pressure 112/64 06/03/2024 1:39 PM EDT Pulse 68 06/03/2024 1:39 PM EDT Temperature 36.1 C (97 F) 06/03/2024 1:3 9 PM EDT Respiratory Rate 18 06/03/2024 1:39 PM EDT Oxygen Saturation 97% 06/03/2024 1:3 9 PM EDT o2 on at 1.5 l/min via nc Inhaled Oxygen Concentration - - Weight 135.6 kg (299 lb) 06/03/2024 1:3 9 PM EDT Height - - Body Mass Index 46.83 09/09/2023 12:03 PM EST documented in this encounter Progress Notes * Michelle Kim RN - 06/03/2024 12:30 PM EDT [facility]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 Pt has the updated list from [facility] and will give the notes to DIL to make sure she is aware of all changes Isosorbide and Vasotec was stopped and Spironolactone was decreased to 12.5mg daily Potassium was also stopped Home Health through [facility] for for SN, PT, OT Pt reports he is feeling well He states he is pleased with his stay at [facility] and feels he got stronger Continues to have LE edema but improved since hospitalization Mild redness of BLE - no warmth note Physical Exam: BP 112/64 | Pulse 68 | Temp 36.1 C (97 F) | Resp 18 | Wt 135.6 kg (299 lb) | SpO2 97% Comment: o2 on at 1.5 l/min via nc | BMI 46.83 kg/m | BSA 2.53 m Pain 0 Physical Exam Constitutional: General: He is not in acute distress. Appearance: He is obese. Cardiovascular: Rate and Rhythm: Normal rate and regular rhythm. Pulses: Normal pulses. Heart sounds: Normal heart sounds. Pulmonary: Effort: Pulmonary effort is normal. Breath sounds: Wheezing present. Abdominal: Palpations: Abdomen is soft. Musculoskeletal: Right lower leg: Edema (mod, nonpitting) present. Left lower leg: Edema (mod, nonpitting) present. Neurological: Mental Status: He is alert. Problems/Symptoms: Review of Systems Constitutional: Negative. HENT: Negative. Eyes: Negative. Respiratory: Positive for cough (chronic, at baseline) and shortness of breath (BERRY - at baseline). Cardiovascular: Positive for leg swelling. Gastrointestinal: Negative. Genitourinary: Negative. Musculoskeletal: Positive for arthralgias and gait problem. Skin: Negative. Psychiatric/Behavioral: Negative. Medication Reconciliation: (See medication list) Does patient take medications as ordered: Yes Patient Well Being: PHQ2/9: No questionnaires available. No change in living situation No recent falls [facility] Completed this Visit: Yes. [facility]: Reason Completed: Status post ED visit/hospital admission [facility] Interventions: Fall education provided, reviewed/provided Fall brochure Advanced Care Planning: No documentation, acp on file. Reinforcement/Education: Reviewed HF symptom monitoring: -Weigh self daily in am, post-void and record -Do not add salt to food, avoid foods high in sodium -Limit fluids to 2 liters per day -Report the following: ->2 lb weight gain in one day or 5 lbs in a week to PCP -increased edema in feet, abdomen or hands -increased SOB and cough, especially if at night -increased fatigue or vertigo COPD: Pt instructed to: -Call with increased SOB, wheezing, chest tightness, increased cough, increased sputum with change in color or consistency and fever. -Wash hands often -Drink plenty of fluids -Use inhalers as directed, do not stop or skip doses -Avoid stress -Rest when tired or SOB -Avoid triggers -Clean inhalers once a week Educated on home safety: Create a fall proof home Clear floors of clutter, loose wires, throw rugs, and cords. Make sure halls, stairways, and entrances are well lit. Install a nightlight in your bedroom, hallway and bathroom. Install grab bars or handrails in the bathroom and on stairs. Use a non-skid tub/shower mat. Avoid climbing on a chair; instead use a step stool with a high handrail. Keep sidewalks and steps in good repair Keep steps and sidewalks free of snow and ice. Using aids to support and prevent falls If you have poor balance or have fallen in the past, consider additional support such as a cane or walker. Use a cane with good support and that is the proper length for you. Use a walker if a cane doesnt provide enough support. Avoid medications that increase the risk of falling by causing dizziness, change in sensation or slowed reflexes. Certain medicines may cause falls - blood pressure pills, heart medicines, water pills, or sleepingpills. Be sure to understand each medicine that you are taking and any side effects that may occur. Improve your balance and flexibility with muscle strengthening exercises. Ask your health care provider for some exercises that will be right for you. Reinforced safety education and fall prevention. and Reinforced medication regimen. Timing., Dosing., and Purspose. Treatment/Plan: Continue meds as prescribed [facility] for SN, PT, OT Elevate LE as much as possible Weigh self daily and record Nebulizer tx prn Home Interventions Provided: Home Intervention: Other; eval Reinforced current Plan of Care, including self-management and medication regimen Patient's 'Red Flags': Increased LE edema Increased warmth, redness, weeping or open areas of LE's Increased SOB or wheezing Patient Needs to Remember: Call [facility] at with any new or worsening health concerns or problems, red flag symptoms. Referrals Needed: Other none Follow Up: Is there cellular connectivity/connectivity in the home? Yes Does the patient have internet in the home? Yes Patient encouraged to call the intake phone number for all urgent but not emergent issues. Is the patient new to [facility] within the last 30 days? No, Assess appropriateness for upcoming telehealth visits. Cancel telehealth visits & schedule home visit with care tractor driver teamster(s)as indicated. Provider is in agreement with Plan of Care: Yes Scheduled to follow up with patient in 2 weeks with provider, 1-2 weeks after with RNCM . Michelle Kim RN 06/03/2024 12:21 PM documented in this encounter Plan of Treatment Upcoming Encounters Date Type Department Care Team (Late st Contact Info) Description 07/01/2024 8:50 AM EDT Telemedicine [facility], [facility] [address] [address] Fabian Gonzalez PA-C [address] [place] [address] Chacha Kennedy, [employer] Aircrew[employer] [address] [place] [address] 07/02/2024 7:00 AM EDT Laboratory Lab Mobile Ph[facility]botomy [facility] [address] [facility] [address] [facility], [facility] Mobile Home Draw [facility] [address] 07/03/2024 6:00 AM EDT Anticoagulation Central[facility] Clinical [facility] Services, Oscar Peace [address] [place] [address] [place] [place] [address] [facility], [address] [place] [address] 07/06/2024 11:00 AM EDT Office Visit Orthopaedics [facility] [address] [address] Cm Dawson, [address] [place] [address] 07/09/2024 8:30 AM EDT Home Visit [facility], [facility] [address] [facility] [place] [address] Michelle Kim, RN 132 [facility] [place] [address] 07/27/2024 2:15 PM EDT Office Visit Interventional Pain Center, [facility] [address] [facility] [place] [address] Gely Gilmore MD [address] [place] [address] 08/10/2024 12:20 PM EDT Office Visit Family [facility], [place] [address] [place] [phone] Charley Crane MD [address] [place] [address] 09/02/2024 3:00 PM EST Office Visit [facility] [place] [phone] Audrey Lee DO 132 [facility] [place] [address] Health Maintenance Due Date Last Done Comments Alpha-1 Antitrypsin 1974 CKD PHOS USE SMARTSET 98983 1974 DTap/Tdap Vaccines (1 - Tdap) 1975 Cologuard 2001 Colonoscopy 2001 Colorectal Cancer Screening 2001 Fecal Occult Blood Test 2001 Sigmoidoscopy 2001 AAA Screening 2021 COVID-19 Vaccine (24 season) 2023 Influenza Vaccine (FLU shot) (#1) 2024 07/05/2023, 07/05/2023 GFR 12/16/2024 06/15/2024, 08/11/2023, 05/27/2024, Additional history exists HbA1c 12/16/2024 06/15/2024, 01/26, 06/21/2023 Adult Wellness Visit 02/09/2025 02/10/2024 Albumin/Creatinine Ratio 02/09/2025 02/10/2024 Depression Screening 02/09/2025 02/10/2024 Diabetic Eye Exam 04/28/2025 04/28/2024, , 09/09/2023 CKD HGB USE SMARTSET 91632 06/15/202506/15, 06/15/2024, 05/27/2024, Additional history exists Diabetic Foot Exam 06/15/2025 06/15/2024, 06/21/2023 O2 ASSESSMENT COMPLETED IN PAST YEAR FOR COPD 06/18/2025 06/18/2024 Pneumococcal Vaccine: 65+ Years Completed 07/05/2023 Zoster [...] filedocumented as of this encounter Care Teams Wide Area Network Systems Administrator Relationship Specialty Start Date End Date Charley Crane MD [address] [place] [address] PCP - General Internal Medicine 06/04/23 documented as of this encounter
--- OUTSIDE RECORDS SUMMARY | 2024-07-21 01:56 | External Medical Summary ---
Author Name Unknown Address Unknown Organization K0G[facility] [address] [place] [address] Laboratory Report Ordering Provider Test Date Status NAVARROSPIKE 07/02/2024 09:04:00 Final Standing order for pt/inr. < br/>Please draw pt/inr every 1 to 4 weeks as requested
Results to [facility]tico[facility]

Warfarin Therapy
INR: 2.0-3.0 conventional anticoagulation
INR: 2.5-3.5 high intensity anticoagulation Observation Date Value Abnormality Reference (Units ) Status PT 07/02/2024 09:04:00 28.0 Above high normal 11 .6-15.2 (seconds) Final INR 07/02/2024 09:04:00 2.6 Above high normal 0. 8-1.2 Final Performing Location [facility] [address] [place] [address]
--- OUTSIDE RECORDS SUMMARY | 2024-07-21 01:56 | External Medical Summary | Summary of Care ---
Author Name Unknown Organization [facility] Address [address] [place] [address] Phone [phone] Care Team Providers Care Water Quality Assistant Name Role Phone Charley Crane MD Primary Care Provider [phone] Reason for Visit * Reason Onset Date Comments [facility]: Acute 07/01/2024 Encounter Details Date Type Department Care Team (Late st Contact Info) Description 07/01/2024 Telephone [facility], [place] [address] [place] [address] Monserrat Gregory RN [address] [place] [id number] [facility]: Acute Allergies No known active allergiesdocumented as of this encounter (statuses as of 07/01/2024) Medications Medication Sig Dispensed Refills Start Date [...] as of this encounter (statuses as of 07/01/2024) Active Problems Problem Noted Date Diagnosed Date [...] classification 11/04 Overview: Per COPD GOLD Classification 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 Jardiance) Remote Patient Monitoring Vendor: [facility] Device(s): Connected Scale Continuous Monitoring [...] as of this encounter (statuses as of 07/01/2024) Resolved Problems Problem Noted Date Diagnosed Date [...] Classes - JULIA Class D - Inhaled Idaijeyeyhgqoy-MELN-BQIW Combination Inhaler (Sandro) Remote Patient Monitoring Vendor: [facility] Device(s): Continuous Monitoring Device Traditional Scale Self-Management plan High frequency nebulizer treatments every 4-6 hours around the clock Exacerbation plan Chest Xray Additional Comments: On continuous o2 2-3lpm Bipap at night Atherosclerosis of [place] co 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 pectoris 07/05/2023 08/29/2023 Dyspnea 07/04/2023 08/13/2023 Occupational exposure in workplace 07/04/2023 02/14/2024 Chronic congestive heart failure 06/08/2023 07/05/2023 COPD, severe 06/08/2023 07/11/2023 Overview: Per COPD GOLD Classification Chronic hypoxemic respiratory failure 06/08/2023 07/04/2023 Chronic respiratory failure with hypoxia, on home oxygen therapy 06/08/2023 08/29/2023 Diabetes mellitus without complication 06/08/2023 08/29/2023 documented as of this encounter (statuses as of 07/01/2024) Immunizations Name Administration Dates Next Due Pneumococcal [...] Telephone Encounter - Monserrat Gregory RN - 07/01/2024 2:29 PM EDT Phone call from patient requesting MSZarina come to his home now to assist him as he has been incontinent of urine and stool, states he has diarrhea, needs someone now. Had a video visit this morning but just had diarrhea and did not make it to the toilet in time and has soiled himself. Patient made aware that [facility] does not provide personal care services, encouraged to have family assist him in getting cleaned up. YARIEL Gregory Registered Nurse Navigator Triage [facility] documented in this encounter Plan of Treatment Upcoming Encounters Date Type Department Care Team (Late st Contact Info) Description 07/02/2024 7:00 AM EDT Laboratory Lab Mobile Phlebotomy [facility] [address] [place] [address] [facility], [facility] Mobile Home Draw [address] [place] [address] 07/03/2024 6:00 AM EDT Anticoagulation Centralized Clinical Pharmacy Services, Oscar Peace [address] [place] [address] [place] [address] [facility], [address] [place] [address] 07/06/2024 11:00 AM EDT Office Visit Orthopaedics [facility] 132 [facility] [place] [address] Cm Dawson, DO [address] [place] [address] 07/09/2024 8:30 AM EDT Home Visit [facility], [facility] [address] [place] [address] Michelle Kim RN 132 [facility] [place] [address] 07/27/2024 2:15 PM EDT Office Visit Interventional Pain Center, [facility] [address] [facility] [place] [address] Gely Gilmore MD [address] [place] [address] 08/10/2024 12:20 PM EDT Office Visit Family [facility], [address] [phone] Charley Crane MD [address] [place] [address] 09/02/2024 3:00 PM EST Office Visit Sleep Disorders Ctr [facility] [address] [facility] [place] [phone] Audrey Lee, 132 [place] [address] Health Maintenance Due Date Last Done Comments Alpha-1 Antitrypsin 1974 CKD PHOS USE SMARTSET 57249 1974 DTap/Tdap Vaccines (1 - Tdap) 1975 [...] 04/28/2024, , 09/09/2023 CKD HGB USE SMARTSET 57655 06/15/202506/15, 06/15/2024, 05/27/2024, Additional history exists Diabetic [...] filedocumented as of this encounter Care Teams Water Quality Assistant Relationship Specialty Start Date End Date Charley Crane MD [address] [place] [address] PCP - General Internal Medicine 06/04/23 documented as of this encounter
--- OUTSIDE RECORDS SUMMARY | 2024-07-21 01:57 | External Medical Summary | Summary of Care ---
Author Name Unknown Organization [facility] Address [address] [place] [address] Phone [phone] Care Team Providers Care Squeegee Finisher Name Role Phone Charley Crane MD Primary Care Provider [phone] Reason for Visit * Reason Comments eRx-Medication Refill Encounter Details Date Type Department Care Team (Late st Contact Info) Description 06/14/2024 Refill [facility] [address] [place] [phone] Charley Crane MD [address] [place], [place] [phone] Allergies No known active allergiesdocumented as of this encounter (statuses as of 06/16/2024) Medications Medication Sig Dispensed Refills Start Date [...] COPD rescue kit. 20 Capsule 01/23/2024 Active Fluticasone Propionate 50 MCG/ACT Nasal [...] EVERY MORNING 90 Tablet 1 06/16/2024 Active documented as of this encounter (statuses as of 06/16/2024) Active Problems Problem Noted Date Diagnosed Date [...] 07/08/2023 Overview: Per Obesity protocol Atherosclerosis of [place] co 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 Jardiance) Remote Patient Monitoring Vendor[place] [facility] [place] Device[place]s): Connected Scale Continuous Monitoring Device Self [...] as of this encounter (statuses as of 06/16/2024) Resolved Problems Problem Noted Date Diagnosed Date [...] Classes - JULIA Class D - Inhaled Ogmmvzkvkszotx-ZDFI-HZZS Combination Inhaler (Trellegy) Remote Patient Monitoring Vendor: [facility] Device(s): Continuous Monitoring Device Traditional Scale Self-Management plan High frequency nebulizer treatments every 4-6 hours around the clock Exacerbation plan Chest Xray Additional Comments: On continuous o2 2-3lpm Bipap at night Atherosclerosis of [place] 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 pectoris 07/05/2023 08/29/2023 Dyspnea 07/04/2023 08/13/2023 Occupational exposure in workplace 07/04/2023 02/14/2024 Chronic congestive heart failure 06/08/2023 07/05/2023 COPD, severe 06/08/2023 07/11/2023 Overview: Per COPD GOLD Classification Chronic hypoxemic respiratory failure 06/08/2023 07/04/2023 Chronic respiratory failure with hypoxia, on home oxygen therapy 06/08/2023 08/29/2023 Diabetes mellitus without complication 06/08/2023 08/29/2023 documented as of this encounter (statuses as of 06/16/2024) Immunizations Name Administration Dates Next Due Pneumococcal [...] Telephone Encounter - Charley Crane MD - 06/16/2024 7:24 AM EDTSigned Prescriptions: Disp Refills Enalapril Maleate 10 MG Oral Tablet (Vasot*90 Tab*1 Sig: TAKE 1 TABLET BY MOUTH EVERY MORNING Authorizing Provider: CHARLEY CRANE * Telephone Encounter - Kristen Phillips RP - 06/16/2024 7:22 AM EDT Pending Prescriptions: Disp Refills Enalapril Maleate 10 MG Oral Tablet [Pharm*90 Tab*0 Sig: TAKE 1 TABLET BY MOUTH EVERY MORNING * Telephone Encounter - Kristen Phillips RPh - 06/16/2024 7:21 AM EDT D/C'd as med list cleanup on 06/03. Please advise if pt is to continue Pending Prescriptions: Disp Refills Enalapril Maleate 10 MG Oral Tablet (Vaso*90 Tab*0 Sig: TAKE 1 TABLET BY MOUTH EVERY MORNING Last Visit: 02/10/2024 (in office), Visit date not found (telemedicine) Next Visit: 08/10/2024 If no future appointments scheduled, and last appointment is greater than a year ago, please schedule patient for a follow-up appointment Last date the medication was ordered: 01/20/24 Is this request for a controlled substance?No Urine Drug Screen:No results found for this or any previous visit. Patient Phone Numbers Labs: Lab Results Component Value Date/Time CREAT 0.9 06/15/2024 02:40 PM POTASSIUM 4.4 06/15/2024 02:40 PM TSH 2.18 06/21/2023 12:33 PM LDLCALC 84 02/10/2024 01:36 PM ALT 19 06/15/2024 02:40 PM HGBA1C 6.2 (H) 06/15/2024 02:40 PM * Telephone Encounter - Interface, E-Rx Ss Inbound - 06/16/2024 6:03 AM EDT Pending Prescriptions: Disp Refills Enalapril Maleate 10 MG Oral Tablet [Pharm*90 Tab*0 Sig: TAKE 1TABLET BY MOUTH EVERY MORNING documented in this encounter Plan of Treatment Upcoming Encounters Date Type Department Care Team (Late st Contact Info) Description 06/25/2024 7:00 AM EDT Laboratory Lab Mobile Phlebotomy [facility] [address] [facility] [place] [address] M[facility], Gml Mobile Home Draw [address] [facility] [place] [address] 06/26/2024 6:00 AM EDT Anticoagulation [facility] Services, Oscar Peace [address] [place] [address] [place] [address] [place] [address] 07/01/2024 8:50 AM EDT [facility] [address] [place] [address] [address] Fabian Gonzalez PA-C [address] [place] [address] Chacha Kennedy, [facility] Sales Representative [address] [place] [address] 07/06/2024 11:00 AM EDT Office Visit Orthopaedics [facility] [address] [place] [address] [address] Cm Dawson, DO [address] [place] [address] 07/09/2024 8:30 AM EDT [facility], [facility] 132 [facility] [place] [address] Michelle Kim, RN 132 [facility] [place] [address] 07/27/2024 2:15 PM EDT Office Visit Interventional Pain Center, [facility] 132 [facility] [place] [address] Gely Gilmore MD [address] [place] [address] [place] [address] 08/10/2024 12:20 PM EDT Office Visit Family [facility] [address] [facility] [place] [phone] Charley Crane MD [address] [place] [address] 09/02/2024 3:00 PM EST Office Visit Sleep Disorders [facility] 132 [facility] [place] [phone] Audrey Lee DO 132 [facility] [place] [address] Health Maintenance Due Date Last Done Comments Alpha-1 Antitrypsin 1974 DTaP,Tdap,and Td Vaccines (1 - Tdap) 1975 Cologuard 2001 Colonoscopy 2001 Colorectal Cancer Screening 2001 Fecal Occult Blood Test 2001 Sigmoidoscopy 2001 AAA Screening 2021 COVID-19 Vaccine (24 season) 2023 Influenza Vaccine (FLU shot) (#1) 2024 07/05/2023, 07/05/2023 GFR 12/16/2024 06/15/2024, 08/0 11/2023, 05/27/2024, Additional history exists HbA1c 12/16/2024 06/15/2024, 01/26, 06/21/2023 Adult Wellness Visit 02/09/2025 02/10/2024 Albumin/Creatinine Ratio 02/09/2025 02/10/2024 Depression Screening 02/09/2025 02/10/2024 Diabetic Eye Exam 04/28/2025 04/28/2024, , 09/09/2023 Diabetic Foot Exam 06/15/2025 06/15/2024, 06/21/2023 O2 ASSESSMENT COMPLETED IN PAST YEAR FOR COPD 06/15/2025 06/15/2024 Pneumococcal Vaccine: 65+ Years Completed 07/05/2023 Zoster [...] filedocumented as of this encounter Care Teams Squeegee Finisher Relationship Specialty Start Date End Date Charley Crane MD [address] [place] [address] PCP - General Internal Medicine 06/04/23 documented as of this encounter
--- OUTSIDE RECORDS SUMMARY | 2024-07-21 01:57 | External Medical Summary | Summary of Care ---
Author Name Unknown Organization [facility] Address [address] [place] [address] Phone [phone] Care Team Providers Care Armored Vehicle Officer Name Role Phone Charley Crane MD Primary Care Provider [phone] Reason for Visit * Reason Onset Date Comments Advice 06/17/2024 [facility] Home Health update Encounter Details Date Type Department Care Team (Late st Contact Info) Description 06/17/2024 Telephone [facility] [address] [place] [address] Charley Crane MD [address] [place] [address] Advice ([facility] Home Health update) Allergies No known active allergiesdocumented as of this encounter (statuses as of 06/17/2024) Medications Medication Sig Dispensed Refills Start Date [...] as of this encounter (statuses as of 06/17/2024) Active Problems Problem Noted Date Diagnosed Date Stage 3 chronic kidney disease 06/15/2024 Hypertensive heart disease w ith chronic diastolic congestive heart failure 06/15/2024 Body mass index (BMI) 45.0-49.9, adult 4 COPD, group D, by GOLD 2017 classification 11/04 Overview: Per COPD GOLD Classification intermediate designer current use of anticoagulant therapy 0 2023 Longstanding persistent atrial fibrillation 06/29 Hypertension goal BP (blood pressure) < 130/80 0 07/17/2023 Dyslipidemia, goal LDL below 70 07/17/2023 Body mass index (BMI) of 40.0 to 44.9 in adult 0 07/08/2023 Overview: Per Obesity protocol Atherosclerosis of [place] co 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 pectoris 07/05/2023 [...] Remote Patient Monitoring Vendor: [facility] [place] Device[place]s): Connected Scale Continuous Monitoring Device Self [...] as of this encounter (statuses as of 06/17/2024) Resolved Problems Problem Noted Date Diagnosed Date [...] Classes - JULIA Class D - Inhaled Ngwuglkylmjegs-EUNF-HCJZ Combination Inhaler (Trellegy) Remote Patient Monitoring Vendor: [facility] Device(s): Continuous Monitoring Device Traditional Scale Self-Management plan High frequency nebulizer treatments every 4-6 hours around the clock Exacerbation plan Chest Xray Additional Comments: On continuous o2 2-3lpm Bipap at night Atherosclerosis of [place] co 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 pectoris 07/05/2023 08/29/2023 Dyspnea 07/04/2023 08/13/2023 Occupational exposure in workplace 07/04/2023 02/14/2024 Chronic congestive heart failure 06/08/2023 07/05/2023 COPD, severe 06/08/2023 07/11/2023 Overview: Per COPD GOLD Classification Chronic hypoxemic respiratory failure 06/08/2023 07/04/2023 Chronic respiratory failure with hypoxia, on home oxygen therapy 06/08/2023 08/29/2023 Diabetes mellitus without complication 06/08/2023 08/29/2023 documented as of this encounter (statuses as of 06/17/2024) Immunizations Name Administration Dates Next Due Pneumococcal [...] No 02/10/2024 Does the household have a [facility] source of income? (Household - for ages [...] encounter Miscellaneous Notes * Telephone Encounter - Thomas Badillo LPN - 06/17/2024 3:27 PM EDT Juan returning call and informed of message below. He advised to contact patient to schedule appt. Attempted to contact patient. No answer, left message to return the call. Please schedule appt whenreturns call. * Telephone Encounter - Ashely Garduno LPN - 06/17/2024 3:22 PM EDT Left message on pt's son's (Sandeep) answering machine letting him own we are trying to get a hold ofhis father to notify him of the message below. Attempted to call patient, there was no answer, left voicemail. When patient returns call, ok for CRISTOFER to relay message, please refer to below documentation. If needed, can transfer to dedicated nurse line. "Pt who is oxygen depending with a cough and production needs an in person examination and visit. "Per Doctor Celina * Telephone Encounter - Ashely Garduno LPN - 06/17/2024 3:19 PM EDT Attempted to call patient, there was no answer, left voicemail. When patient returns call, ok for CRISTOFER to relay message, please refer to below documentation. If needed, can transfer to dedicated nurse line. * Telephone Encounter - Marissa Patrick DO - 06/17/2024 2:39 PM EDT Pt who is oxygen depending with a cough and production needs an in person examination and visit. 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 Patient was called from their Home Health for atele-med phone visit. Patient is on 2 lpm of oxygen during the day and 3 lpm at night. Patient reports he is going to wean himself off of the oxygen. Wanted to make us aware. Unable to give vitals. Stated they are transmitted to the office. Patient reports he is coughing a small amount. No respiratory distress. No weight change. Physical Therapy will see patient today. Nurse who called him yesterday educated him on not weaning off the oxygen and the importance of using it. Unsure if the patient will comply. Wanted to make the doctor aware and inform of cough. Patient has a history of CHF Called patient. Left message to return call and give us an update on his status. Given triage nurseline of [phone] Call back Juan with any advice or orders at [phone] Please fax new orders to [facility] [employer] * Telephone Encounter - Tommie Hilliard OSA - 06/17/2024 8:54 AM EDT Reason for patient's call: Juan with [facility] is calling to give a status update on the patient. Caller was transferred to Minerva at the nurse line. documented in this encounter Plan of Treatment Upcoming Encounters Date Type Department Care Team (Late st Contact Info) Description 06/22/2024 7:05 AM EDT Laboratory Lab Mobile Phlebotomy [facility] [address] [place] [address] Mvmg, Gml Mobile Home Draw [address] [place] [address] 06/23/2024 6:00 AM EDT Anticoagulation Centralized Clinical Pharmacy Services, Oscar Peace [address] [place] [address] [place] [address] [place] [address] 06/25/2024 7:00 AM EDT Laboratory Lab Mobile Phlebotomy [facility] [address] [place] [address] [address] Mvmg, Gml Mobile Home Draw [address] [place] [address] [address] 07/01/2024 8:50 AM EDT [facility]icine [facility], [facility] [address] [place] [address] Fabian Gonzalez PA-C [address] [place] [address] Chacha Kennedy, Community Health Stack Yield Engineer [address] [place] [address] 07/06/2024 11:00 AM EDT Office Visit Orthopaedics [facility] 132 [facility] [place] [address] Cm Dawson, [address] [place] [address] 07/09/2024 8:30 AM EDT Home Visit [facility], [facility] [address] [place] [address] Michelle Kim RN [address] [place] [address] 07/27/2024 2:15 PM EDT Office Visit Interventional Pain Center, [facility] [place] [address] Gely Gilmore MD [address] [place] [address] [place] [address] 08/10/2024 12:20 PM EDT Office Visit Family [facility] [address] [place] [phone] Charley Crane MD [address] [place] [address] 09/02/2024 3:00 PM EST Office Visit Sleep Disorders Ctr [facility] 132 [facility] [place] [phone] Audrey Lee, DO [address] [place] [address] Health Maintenance Due Date Last Done Comments Alpha-1 Antitrypsin 1974 CKD PHOS USE SMARTSET 24497 1974 DTaP,Tdap,and Td Vaccines (1 - Tdap) 1975 Cologuard 2001 Colonoscopy 2001 Colorectal Cancer Screening 2001 Fecal Occult Blood Test 2001 Sigmoidoscopy 2001 AAA Screening 2021 COVID-19 Vaccine ( season) 2023 Influenza Vaccine (FLU shot) (#1) 2024 07/05/2023, 07/05/2023 GFR 12/16/2024 06/15/2024, 11/2023, 05/27/2024, Additional history exists HbA1c 12/16/2024 06/15/2024, 01/26, 06/21/2023 Adult Wellness Visit 02/09/2025 02/10/2024 Albumin/Creatinine Ratio 02/09/2025 02/10/2024 Depression Screening 02/09/2025 02/10/2024 Diabetic Eye Exam 04/28/2025 04/28/2024, , 09/09/2023 CKD HGB USE SMARTSET 36399 06/15/202506/15, 06/15/2024, 05/27/2024, Additional history exists Diabetic [...] filedocumented as of this encounter Care Teams Armored Vehicle Officer Relationship Specialty Start Date End Date Charley Crane MD [address] [facility] [place] [address] PCP - General Internal Medicine 06/04/23 documented as of this encounter
--- OUTSIDE RECORDS SUMMARY | 2024-07-21 01:57 | External Medical Summary ---
Author Name Unknown Address Unknown Organization K0G[facility] [address] [place] [address] Laboratory Report Ordering Provider Test Date Status [place]OS[place]KE 06/22/2024 09:00:00 Final Standing order for pt/inr. < br/>Please draw pt/inr every 1 to 4 weeks as requested
Results to [facility]

Warfarin Therapy
INR: 2.0-3.0 conventional anticoagulation
INR: 2.5-3.5 high intensity anticoagulation Observation Date Value Abnormality Reference (Units ) Status PT 06/22/2024 09:00:00 30.3 Above high normal 11 .6-15.2 (seconds) Final INR 06/22/2024 09:00:00 2.9 Above high normal 0. 8-1.2 Final Performing Location [facility] [address] [place] [address]
--- OUTSIDE RECORDS SUMMARY | 2024-07-21 01:57 | External Medical Summary | Summary of Care ---
Author Name Unknown Organization [facility] Address [address] [place] [address] Phone [phone] Care Team Providers Care Joiner Apprentice Name Role Phone Charley Crane MD Primary Care Provider [phone] Reason for Visit * Reason Onset Date Comments Advice 06/17/2024 [facility] Home Health update Encounter Details Date Type Department Care Team (Late st Contact Info) Description 06/17/2024 Telephone [facility] [address] [place] [address] Charley Crane MD [address] [place] [address] Advice ([facility] Home Health update) Allergies No known active [...] classification 11/04 Overview: Per COPD GOLD Classification 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 Jardiance) Remote Patient Monitoring Vendor: [facility] [place] Device(s): Connected Scale Continuous Monitoring Device Self [...] Classes - JULIA Class D - Inhaled Oevcxwzohuabrp-EGVT-VKKM Combination Inhaler (Trellegy) Remote Patient Monitoring Vendor: [facility] Device(s): Continuous Monitoring Device Traditional Scale Self-Management plan High frequency nebulizer treatments every 4-6 hours around the clock Exacerbation plan Chest Xray Additional Comments: On continuous o2 2-3lpm Bipap at night Atherosclerosis of [place] co 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 pectoris 07/05/2023 [...] No 02/10/2024 Does the household have a [facility] source of income? (Household - for [...] Miscellaneous Notes * Telephone Encounter - Ashely Garduno LPN [...] EDT HH Concerns Juan POLANCO, Calling from: [facility] Report/Concerns of: Symptoms: cough- productive Cough with small amount mod thickness with off white phlegm Narrative: Juan POLANCO Bilingual Patient Support Caseworker, calling from [facility]. Patient was called from their Home Health [...] on his status. Given triage nurseline of [phone] Call back Juan with any advice or orders at [phone] Please fax new orders to [facility] * Telephone Encounter - Tommie Hilliard OSA - 06/17/2024 8:54 AM EDT Reason for patient's call: Juan with [facility] is calling to give a status update on the patient. Caller was transferred to Minerva at the nurse line. documented in this encounter Plan of Treatment Upcoming Encounters Date Type Department Care Team (Late st Contact Info) Description 06/22/2024 7:05 AM EDT Laboratory Lab Mobile Phlebotomy [facility] [address] [employer] [place] [address] Mvmg, Gml Mobile Home Draw [address] [employer] [place] [address] 06/23/2024 6:00 AM EDT Anticoagulation Centralized Clinical Pharmacy Services, Oscar Peace [address] [place] [address] [place] [address] [facility], [address] [place] [address] 06/25/2024 7:00 AM EDT Laboratory Lab Mobile Phlebotomy [facility] [address] [facility] [place] [address] Mvmg, Gml Mobile Home Draw [address] [employer] [place] [address] 07/01/2024 8:50 AM EDT [facility]icine [facility], [facility] [address] [place] [address] [address] Fabian Gonzalez PA-C [address] [place] [address] Chacha Kennedy, Community Health Automation Controls Specialist [address] [place] [address] 07/06/2024 11:00 AM EDT Office Visit Orthopaedics [facility] 132 [facility] [place] [address] Cm Dawson, DO [address] [place] [address] 07/09/2024 8:30 AM EDT Home Visit [facility], [facility] [address] [place] [address] Michelle Kim RN 132 [facility] [place] [address] 07/27/2024 2:15 PM EDT Office Visit Interventional Pain Center, [facility] 132 [facility] [place] [address] Gely Gilmore MD [address] [place] [address] [place] [address] 08/10/2024 12:20 PM EDT Office Visit [place] [address] [place] [phone] Charley Crane MD [address] [place] [address] 09/02/2024 3:00 PM EST Office Visit Sleep Disorders Ctr [facility] 132 [facility] [place] [phone] Audrey Lee, DO 132 [facility] [place] [address] Health Maintenance Due Date Last Done Comments Alpha-1 Antitrypsin 1974 CKD PHOS USE SMARTSET 61846 1974 DTaP,Tdap,and Td Vaccines (1 - Tdap) [...] 04/28/2024, , 09/09/2023 CKD HGB USE SMARTSET 389[address] 06/15/202506/15, 06/15/2024, 05/27/2024, Additional history exists Diabetic [...] filedocumented as of this encounter Care Teams Joiner Apprentice Relationship Specialty Start Date End Date Charley Crane MD [address] [place] [address] PCP - General Internal Medicine 06/04/23 documented as of this encounter
--- OUTSIDE RECORDS SUMMARY | 2024-07-21 01:57 | External Medical Summary | Summary of Care ---
Author Name Unknown Organization [facility] Address [address] [place] [address] Phone [phone] Care Team Providers Care Medical Dermatologist Name Role Phone Charley Crane MD Primary Care Provider Reason for Visit * Reason Onset Date Comments Advice 06/17/2024 [facility] Home Health update Encounter Details Date Type Department Care Team (Late st Contact Info) Description 06/17/2024 Telephone [facility] [address] [place] [address] Charley Crane MD [address] [place] [address] Advice ([facility] Home Health update) Allergies No known active [...] classification 11/04 Overview: 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 (Household - for ages [...] encounter Miscellaneous Notes * Telephone Encounter - Mansi England LPN - 06/17/2024 3:49 PM EDT Patient aware and verbalized understanding, will comply. Appt was scheduled for tomorrow 06/18/24 * Telephone Encounter - Thomas Badillo LPN [...] EDT HH Concerns Juan POLANCO, Calling from: [facility] Report/Concerns of: Symptoms: cough- productive Cough with small amount mod thickness with off white phlegm Narrative: Juan RN Squirrel Man, calling from [facility]. Patient was called from their Home Health [...] on his status. Given triage nurseline of [phone] Call back Juan with any advice or orders at [phone] Please fax new orders to [facility] Home Health * Telephone Encounter - Tommie Hilliard OSA - 06/17/2024 8:54 AM EDT Reason for patient's call: Juan with [facility] is calling to give a status update on the patient. Caller was transferred to [facility] at the nurse line. documented in this encounter Plan of Treatment Upcoming Encounters Date Type Department Care Team (Late st Contact Info) Description 06/18/2024 4:40 PM EDT Office Visit [facility] [address] [place] [facility] [place] [place] [phone] Charley Crane MD [address] [place] [address] 06/22/2024 7:05 AM EDT Laboratory Lab Mobile Phlebotomy [facility] [address] [place] [address] [facility], [facility] Mobile Home Draw [address] [place] [address] 06/23/2024 6:00 AM EDT Anticoagulation [facility], Oscar Peace [address] [place] [address] [place] [address] [facility], [address] [place] [address] 06/25/2024 7:00 AM EDT Laboratory Lab Mobile Phlebotomy [facility] [place] [address] [facility], Gml Mobile Home Draw [address] [facility] [place] [address] 07/01/2024 8:50 AM EDT Telemedicine [facility], [facility] [address] [place] [address] Fabian Gonzalez PA-C [address] [place] [address] Chacha Kennedy, Community Health Housekeeping Supervisor [address] [place] [address] 07/06/2024 11:00 AM EDT Office Visit Orthopaedics [facility] [address] [place] [address] Cm Dawson, [address] [place] [address] 07/09/2024 8:30 AM EDT Home Visit [facility], [facility] [address] [place] [address] Michelle Kim, RN [address] [place] [address] 07/27/2024 2:15 PM EDT Office Visit Interventional Pain Center, [facility] [address] [place] [address] Gely Gilmore MD [address] [place] [phone] 08/10/2024 12:20 PM EDT Office Visit [facility] [address] [facility], [place] [phone] Charley Crane MD [address] [place] [address] 09/02/2024 3:00 PM EST Office Visit Sleep Disorders Ctr [facility] [address] [place] [phone] Audrey Lee DO [address] [place] [address] Health Maintenance Due Date Last Done Comments Alpha-1 Antitrypsin 1974 CKD PHOS USE SMARTSET 12201 1974 DTaP,Tdap,and Td Vaccines (1 - Tdap) [...] 04/28/2024, , 09/09/2023 CKD HGB USE SMARTSET 32738 06/15/202506/15, 06/15/2024, 05/27/2024, Additional history exists Diabetic [...] filedocumented as of this encounter Care Teams Medical Dermatologist Relationship Specialty Start Date End Date Charley Crane MD [address] [place] [address] PCP - General Internal Medicine 06/04/23 documented as of this encounter
--- OUTSIDE RECORDS SUMMARY | 2024-07-21 01:57 | External Medical Summary | Summary of Care ---
Author Name Unknown Organization [facility] Address [address] [place] [address] Phone [phone] Care Team Providers Care Tin Roofer Name Role Phone Charley Crane MD Primary Care Provider [phone] Reason for Visit * Reason Comments Cough Pt here today for a productive cough Encounter Details Date Type Department Care Team (Latest Contact Info) Description 06/18/2024 4:40 PM EDT Office Visit [facility] [address] [place] [address] Charley Crane MD [address], [place] [phone] Chronic respiratory failure with hypoxia and hypercapnia (HCC)*; COPD, group D, by GOLD 2017 classification (HCC); Chronic heart failure with preserved ejection fraction (HCC); BiPAP (biphasic positive airway pressure) dependence; O2 dependent; On Coumadin for atrial fibrillation (HCC); Sinus drainage Allergies No known active allergiesdocumented as of this encounter (statuses as of 06/18/2024) Medications Medication Sig Dispensed Refills Start Date [...] the morning. 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 0 2023 Longstanding persistent atrial fibrillation 06/29 Hypertension goal BP (blood pressure) < 130/80 0 07/17/2023 Dyslipidemia, goal LDL below 70 07/17/2023 Body mass index (BMI) of 40.0 to 44.9 in adult 0 07/08/2023 Overview: Per Obesity protocol Atherosclerosis of [place] co 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 pectoris 07/05/2023 [...] Jardiance) Remote Patient Monitoring Vendor: [facility] Device(s): Connected Scale Continuous Monitoring Device Self [...] as of this encounter (statuses as of 06/18/2024) Resolved Problems Problem Noted Date Diagnosed Date [...] Classes - JULIA Class D - Inhaled Ncxrjplzbqlkvn-KASM-NOSA Combination Inhaler (Trellegy) Remote Patient Monitoring Vendor: [facility] Device(s): Continuous Monitoring Device Traditional Scale Self-Management plan High frequency nebulizer treatments every 4-6 hours around the clock Exacerbation plan Chest Xray Additional Comments: On continuous o2 2-3lpm Bipap at night Atherosclerosis of [place] co 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 pectoris 07/05/2023 08/29/2023 Dyspnea 07/04/2023 08/13/2023 Occupational exposure in workplace 07/04/2023 02/14/2024 Chronic congestive heart failure 06/08/2023 07/05/2023 COPD, severe 06/08/2023 07/11/2023 Overview: Per COPD GOLD Classification Chronic hypoxemic respiratory failure 06/08/2023 07/04/2023 Chronic respiratory failure with hypoxia, on home oxygen therapy 06/08/2023 08/29/2023 Diabetes mellitus without complication 06/08/2023 08/29/2023 documented as of this encounter (statuses as of 06/18/2024) Immunizations Name Administration Dates Next Due Pneumococcal [...] Sign Reading Time Taken Comments Blood Pressure 126/72 06/18/2024 4:24 PM EDT Pulse 75 06/18/2024 4:24 PM EDT Temperature 36.7 C (98 F) 06/18/2024 4:24 PM EDT Respiratory Rate 20 06/18/2024 4:24 PM EDT Oxygen Saturation 93% 06/18/2024 4:24 PM EDT Inhaled Oxygen Concentration - - Weight - - Height - - Body Mass Index - - documented in this encounter Patient Instructions * Patient Instructions* Charley Crane MD - 06/18/2024 4:32 PM EDT Please keep O2 sat around 94-97% and ok to adjust O2 from 1-3 L Try to bring up mucus Start taking singulair 10 mg daily And also use flonase documented in this encounter Progress Notes * Charley Crane MD - 06/18/2024 4:29 PM EDT Subjective Bala Coronado Jr. is a 68 year old male. Chief Complaint Patient presents with Cough Pt here today for a productive cough HPI: Cough Associated symptoms include postnasal drip, rhinorrhea and shortness of breath (on exertion). Pertinent negatives include no chest pain, chills, fever or wheezing. His past medical history is significant for environmental allergies. 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) PHT (pulmonary hypertension) ([facility]) Tobacco abuse, in remission Chronic respiratory failure with hypoxia and hypercapnia (HCC) Obesity hypoventilation syndrome (HCC) Family history of lung cancer Chronic heart failure with preserved ejection fraction (HCC) Atherosclerosis of [place] co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 pectoris BiPAP (biphasic positive airway pressure) dependence Body mass index (BMI) of 40.0 to 44.9 in adult (HCC) Longstanding persistent atrial fibrillation (HCC) Hypertension goal BP (blood pressure) < 130/80 Dyslipidemia, goal LDL below 70 detention current use of anticoagulant therapy COPD, group D, by GOLD 2017 classification ([facility]) Stage 3 chronic kidney disease ([facility]) Hypertensive heart disease with chronic diastolic congestive heart failure ([facility]) Body mass index (BMI) 45.0-49.9, adult ([facility]) Current Outpatient Medications Medication Sig Dispense Refill Centrum Silver 50+Men Oral Tablet Take 1 Tablet by mouth daily. oxygen IN GAS Use 3 L/min(Oxygen) as directed continuous. Uses 2.5 LPM at night with BIPAP and as needed during the day BiPAP every night at bedtime. Ketoconazole 2 % External Cream Apply to dry patches on face once daily 30 g 1 guaiFENesin ER 600 MG Oral Tablet Extended Release 12 Hour (Mucinex) Take 1 Tablet by mouth 2 timesa day. Empagliflozin 10 MG Oral Tablet (Jardiance) Take 1 Tablet by mouth in the morning. 90 Tablet 3 Spironolactone 25 MG Oral Tablet (Aldactone) Take 1 Tablet by mouth in the morning. (Patient takingdifferently: Take 0.5 Tablets by mouth in the morning.) 90 Tablet 3 Torsemide 20 MG Oral Tablet (Demadex) Take 2 tablets by mouth once daily 180 Tablet 3 Warfarin Sodium 10 MG Oral Tablet (Coumadin) Take 1 to 1.5 tablets by mouth every day in the evening or as directed by the anticoagulation clinic. 100 Tablet 3 Doxycycline Hyclate 100 MG Oral Capsule Take 1 Capsule by mouth in the morning and 1 Capsule beforebedtime. Until gone. COPD rescue kit. 20 Capsule 0 Atorvastatin Calcium 80 MG Oral Tablet (Lipitor) Take 1 Tablet by mouth in the morning. 90 Tablet 3 Carvedilol 3.125 MG Oral Tablet (Coreg) Take 1 Tablet by mouth 2 times a day with morning and evening meals. 180 Tablet 3 Ipratropium-Albuterol 0.5-2.5 (3) MG/3ML Inhalation Solution (Duoneb) INHALE THE CONTENTS OF 1 VIALIN NEBULIZER EVERY 6 HOURS NEEDED FOR SHORTNESS OF BREATH (Patient taking differently: Inhale 3 mL via nebulizer. INHALE THE CONTENTS OF 1 VIAL IN NEBULIZER EVERY 4 HOURS NEEDED FOR SHORTNESS OF BREATH) 360 mL 3 Potassium Chloride ER 10 MEQ Oral Capsule Extended Release Take 1 Capsule by mouth every other day.45 Capsule 1 Pantoprazole Sodium 40 MG Oral Tablet Delayed Release (Protonix) TAKE 1 TABLET BY MOUTH EVERY MORNING 90 Tablet 1 Trelegy Ellipta 100-62.5-25 MCG/ACT Aerosol Powder Breath Activated (Bswgaqtlqvl-Dckrrzncxmpd-Vqwnzlplal) Inhale 1 Puff by mouth in the morning. 180 Blister Dosing Unit 3 Enalapril Maleate 10 MG Oral Tablet (Vasotec) TAKE 1 TABLET BY MOUTH EVERY MORNING 90 Tablet 1 Montelukast Sodium 10 MG Oral Tablet (Singulair) Take 1 Tablet by mouth in the morning. 90 Tablet 3 Albuterol Sulfate HFA 108 (90 Base) MCG/ACT Inhalation Aerosol Solution Inhale 2 Puffs by mouth every 6 hours as needed for Shortness of Breath or Wheezing. 54 g 1 Fluticasone Propionate 50 MCG/ACT Nasal Suspension (Flonase) Administer 2 Sprays into each nostril in the morning. 16 g 1 No current facility-administered medications for this visit. Past Medical History: Diagnosis Date Chronic congestive heart failure (HCC) 06/08/2023 Heart failure preserved ejection fraction Chronic respiratory failure with hypoxia, on home oxygen therapy (HCC) 06/08/2023 COPD (chronic obstructive pulmonary disease) ([facility]) COPD, severe ([facility]) 06/08/2023 Family history of lung cancer 07/04/2023 Mother's side of the family. Patient reports that some affected individuals were nonsmokers History of deep venous thrombosis (DVT) of distal vein of left lower extremity 06/08/2023 On Coumadin for atrial fibrillation ([facility]) 06/08/2023 Pulmonary hypertension (HCC) Suspected per report of outside echocardiogram May 2023 Squamous cell carcinoma, face 06/08/2023 Type 2 diabetes mellitus with hemoglobin A1c goal of less than 7.0% ([facility]) 06/08/2023 Venous insufficiency 06/08/2023 Past Surgical History: Procedure Laterality Date DERM IMAGE (SITE) "Cancer removed from my head" INFORMATION "Muscle re-attached in my left arm" INFORMATION LLE vascular surgery INFORMATION "Pins in my hand" Review of patient's allergies indicates: No Known Allergies Family History Problem Relation Name Age of Onset Alzheimer's disease Mother in her 90s Heart disease Father age 65 Other ("5 Heart attacks") Father No Known Problems Sister No Known Problems Sister Other (Diabetes Mellitus) Son Other (Mother's side of Family: "Lung Cancer & COPD". 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 Quit 2012. Denies significant secondhand smoke exposure Vaping Use Vaping status: Never Used Substance and Sexual Activity Alcohol use: Never Drug use: Never Sexual activity: Not on file Other Topics Concern Not on file Social History Narrative 2 dogs in his home. No mold. Social Determinants of Health Financial Resource Strain: Low Risk (02/10/2024) Financial Resource Strain Do you have any trouble paying for your medications, or do you think you might in the future? (Adult - for ages 18 years and over): No Does your family have trouble paying for medicine? (Household - for ages 0-17 years): Not on file Food Insecurity: No Food Insecurity (02/10/2024) Food Insecurity Do you need food for this week? (Adult - for ages 18 years and over): No Are you able to get enough food for your family? (Household - for ages 0-17 years): Not on file Does your family need food this week? (Household - for ages 0-17 years): Not on file Do you always have enough food for your family? (Household - for ages 0-17 years): Not on file Transportation Needs: No Transportation Needs (02/10/2024) Transportation Needs Do you have trouble getting a ride to medical visits or work? (Adult - for ages 18 years and over):Never True Does your family have a hard time getting a ride to doctors visits? (Household - for ages 0-17 years): Not on file Has lack of transportation kept you from medical appointments, meetings, work, or from getting things needed for daily living? Check all that apply. (Adult - for ages 18 years and over): Not on file Do you (or your family) have trouble finding or paying for a ride (transportation)? (Household - for ages 0-17 years): Not on file Social Connections: Socially Integrated (02/10/2024) Social Connections How often do you feel lonely or isolated from those around you? (Adult - for ages 18 years and over): Never Housing Stability: Low Risk (02/10/2024) Housing Stability Do you currently live in a penitentiary or have no steady place to sleep at night? (Adult - for ages 18 years and over): No Do you think you are at risk of becoming homeless? (Adult - for ages 18 years and over): No Does your family worry about paying for your home or becoming homeless? (Household - for ages 0-17 years): Not on file Are you homeless or worried that you might be in the future? (Adult - for ages 18 years and over): Not on file Are you (or your family) homeless or worried that you might be in the future? (Household - for ages0-17 years): Not on file Review of Systems Constitutional: Positive for fatigue. Negative for activity change, appetite change, chills, diaphoresis, fever and unexpected weight change. HENT: Positive for congestion, postnasal drip and rhinorrhea. Respiratory: Positive for cough, chest tightness and shortness of breath (on exertion). Negative for wheezing. Cardiovascular: Positive for leg swelling (chronic). Negative for chest pain and palpitations. Gastrointestinal: Negative for abdominal distention and abdominal pain. Endocrine: Negative. Musculoskeletal: Positive for arthralgias and gait problem. Allergic/Immunologic: Positive for environmental allergies. Neurological: Negative for dizziness and light-headedness. Psychiatric/Behavioral: Positive for dysphoric mood and sleep disturbance. Negative for agitation and behavioral problems. The patient is nervous/anxious. Objective BP 126/72 | Pulse 75 | Temp 36.7 C (98 F) (Tympanic) | Resp 20 | SpO2 93% Physical Exam Constitutional: General: He is not in acute distress. Appearance: Normal appearance. He is obese. He is not ill-appearing, toxic- appearing or diaphoretic. HENT: Head: Normocephalic and atraumatic. Nose: Congestion present. Eyes: Extraocular Movements: Extraocular movements intact. Cardiovascular: Rate and Rhythm: Normal rate. Pulmonary: Effort: Respiratory distress (on O2) present. Breath sounds: No stridor. Rhonchi present. No wheezing or rales. Comments: O2 Chest: Chest wall: No tenderness. Musculoskeletal: Right lower leg: Edema present. Left lower leg: Edema present. Neurological: General: No focal deficit present. Mental Status: He is alert and oriented to person, place, and time. Psychiatric: Behavior: Behavior normal. ASSESSMENT/PLAN: Chronic respiratory failure with hypoxia and hypercapnia (HCC) (Primary) COPD, group D, by GOLD 2017 classification (HCC) Chronic heart failure with preserved ejection fraction (HCC) BiPAP (biphasic positive airway pressure) dependence O2 dependent On Coumadin for atrial fibrillation (HCC) Sinus drainage Other orders - Montelukast Sodium 10 MG Oral Tablet (Singulair); Take 1 Tablet by mouth in the morning. Patient Instructions Please keep O2 sat around 94-97% and ok to adjust O2 from 1-3 L Try to bring up mucus Start taking singulair 10 mg daily And also use flonase Charley Crane MD documented in this encounter Nursing Notes * Ashely Garduno LPN - 06/18/2024 4:22 PM EDT Chief Complaint Patient presents with Cough Pt here today for a productive cough documented in this encounter Plan of Treatment Upcoming Encounters Date Type Department Care Team (Late st Contact Info) Description 06/22/2024 7:05 AM EDT Laboratory Lab Mobile Phlebotomy [facility] [address] [place] [address] [facility], [facility] Mobile Home Draw [address] [place] [address] 06/23/2024 6:00 AM EDT Anticoagulation [facility], Oscar Peace [address] [place] [address] [place] [address] [place] [address] 06/25/2024 7:00 AM EDT Laboratory Lab Mobile Phlebotomy [facility] [address] [facility] [place] [address] [facility], Gml Mobile Home Draw [address] [facility] [place] [address] 07/01/2024 8:50 AM EDT Telemedicine [facility], [facility] [address] [facility] [place] [address] Fabian Gonzalez PA-C [address] [facility] [place] [address] Chacha Kennedy, Community Health Supervisor Production Department [address] [facility] [place] [address] 07/06/2024 11:00 AM EDT Office Visit Orthopaedics [facility] [address] [facility] [place] [address] Cm Dawson DO [address] [facility] [place] [address] 07/09/2024 8:30 AM EDT Home Visit [facility], [facility] [address] [facility] [place] [address] Michelle Kim RN [address] [facility] [place] [address] 07/27/2024 2:15 PM EDT Office Visit Interventional Pain Center, [facility] [address] [facility] [place] [address] Gely Gilmore MD [address] [place] [address] [place] [address] 08/10/2024 12:20 PM EDT Office Visit [address] [phone] Charley Crane MD [address] [facility] [address] 09/02/2024 3:00 PM EST Office Visit [facility] Disorders Ctr [facility] [address] [place] [phone] Audrey Lee, [address] [place] [address] Health Maintenance Due Date Last Done Comments Alpha-1 Antitrypsin 1974 CKD PHOS USE SMARTSET 84003 1974 DTaP,Tdap,and Td Vaccines (1 - Tdap) [...] 04/28/2024, , 09/09/2023 CKD HGB USE SMARTSET 19816 06/15/202506/15, 06/15/2024, 05/27/2024, Additional history exists Diabetic [...] failure with hypoxia and hypercapnia (HCC)- Primary COPD, group D, by GOLD 2017 classification (HCC) Chronic heart failure with preserved ejection fraction (HCC) BiPAP (biphasic positive airway pressure) dependence Dependence on other enabling machine O2 dependent Dependence on supplemental oxygen On Coumadin for atrial fibrillation (HCC) Sinus drainage Other diseases of nasal cavity and sinuses documented in this encounter Care Teams Tin Roofer Relationship Specialty Start Date End Date Charley Crane MD [address] [place] [address] PCP - General Internal Medicine 06/04/23 documented as of this encounter
--- OUTSIDE RECORDS SUMMARY | 2024-07-21 01:57 | External Medical Summary | Summary of Care ---
Author Name Unknown Organization [facility] Address [address] [place] [address] Phone [phone] Care Team Providers Care Welding Machine Operator Electro Gas Name Role Phone Charley Crane MD Primary Care Provider [phone] Reason for Visit * Reason Onset Date Comments Advice 06/17/[address] [facility] Home Health update Encounter Details Date Type Department Care Team (Late st Contact Info) Description 06/17/2024 Telephone [facility] [address] [place] [address] Charley Crane MD [address] [place] [address] Advice ([facility] Home Health update) Allergies No known [...] 11/04 Overview: Per COPD GOLD Classification 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 Jardiance) Remote Patient Monitoring Vendor: [facility] Device(s): Connected Scale Continuous [...] Classes - JULIA Class D - Inhaled Taurnerdbekvli-BEXX-FUXD Combination Inhaler (Trellegy) Remote Patient Monitoring Vendor: [facility] Device(s): Continuous Monitoring Device Traditional Scale Self-Management plan High frequency nebulizer treatments every 4-6 hours around the clock Exacerbation plan Chest Xray Additional Comments: On continuous o2 2-3lpm Bipap at night Atherosclerosis of [place] co 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 pectoris 07/05/2023 [...] 02/10/2024 Does the household have a [facility] source of income? (Household - [...] encounter Miscellaneous Notes * Telephone Encounter - Marissa Patrick DO - 06/17/2024 2:39 PM EDT Pt who is oxygen depending with a cough and production needs an in person examination and visit. * Telephone Encounter - Patricia Veliz LPN - 06/17/2024 8:57 AM EDT HH Concerns Juan RN, Calling from: [facility] Report/Concerns of: Symptoms: cough- productive Cough with small amount mod thickness with off white phlegm Narrative: Juan POLANCO Safety Manager, calling from [facility]. Patient was called from their Home [...] on his status. Given triage nurseline of [phone] Call back Juan with any advice or orders at [phone] Please fax new orders to [facility] * Telephone Encounter - Tommie Hilliard OSA - 06/17/2024 8:54 AM EDT Reason for patient's call: Juan with [facility] is calling to give a status update on the patient. Caller was transferred to [place] at the nurse line. documented in this encounter Plan of Treatment Upcoming Encounters Date Type Department Care Team (Late st Contact Info) Description 06/22/2024 7:05 AM EDT Laboratory Lab Mobile Phlebotomy [facility] [address] [place] [address] M[facility], [facility] Draw [address] [place] [address] 06/23/2024 6:00 AM EDT Anticoagulation Centralized Clinical Pharmacy Services, Oscar Peace [address] [place] [address] [place] [address] [facility], [address] [place] [address] 06/25/2024 7:00 AM EDT Laboratory Lab Mobile Phlebotomy [facility] [address] [facility] [place] [address] M[facility], Gml Mobile Home Draw [address] [facility] [place] [address] 07/01/2024 8:50 AM EDT [facility]medicine [facility], [facility] [address] [place] [address] Fabian Gonzalez PA-C [address] [place] [address] Chacha Kennedy, Community Health Liner Assembler [address] [place] [address] 07/06/2024 11:00 AM EDT Office Visit Orthopaedics [facility] [address] [place] [address] Cm Dawson DO [address] [place] [address] 07/09/2024 8:30 AM EDT Home Visit [facility] [place], [facility] [address] [place] [address] Michelle Kim RN [address] [place] [address] 07/27/2024 2:15 PM EDT Office Visit Interventional Pain Center, [facility] [address] [place] [address] Gely Gilmore MD [address] [place] [address] [place] [id number] 08/10/2024 12:20 PM EDT Office Visit [facility] [place] [address] [place] [address] Charley Crane MD [address] [place] [address] 09/02/2024 3:00 PM EST Office Visit Sleep Disorders Ctr [facility] [address] [place] [phone] Audrey Lee DO [address] [place] [address] Health Maintenance Due Date Last Done Comments Alpha-1 Antitrypsin 1974 CKD PHOS USE SMARTSET 00075 1974 DTaP,Tdap,and Td Vaccines (1 - Tdap) [...] 04/28/2024, , 09/09/2023 CKD HGB USE SMARTSET 45481 06/15/202506/15, 06/15/2024, 05/27/2024, Additional history exists Diabetic [...] filedocumented as of this encounter Care Teams Welding Machine Operator Electro Gas Relationship Specialty Start Date End Date Charley Crane MD [address] [place] [address] PCP - General Internal Medicine 06/04/23 documented as of this encounter
--- OUTSIDE RECORDS SUMMARY | 2024-07-21 01:57 | External Medical Summary | Summary of Care ---
Author Name Unknown Organization [facility] Address [address] [facility] [address] Phone [phone] Care Team Providers Care Cardiographer Name Role Phone Charley Crane MD Primary Care Provider [phone] Reason for Visit * Reason Comments Dosage Adjustment Via Phone (anticoag Cl inic) Encounter Details Date Type Department Care Team (Late st Contact Info) Description 06/16/2024 6:00 AM EDT Anticoagulation Centralized Clinical Pharmacy Services, Oscar Peace [address] [place] [address] [place] [address] [place] [address] termite technician current use of anticoagulant therapy*; Longstanding persistent [...] 11/04 Overview: Per COPD GOLD Classification 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 Jardiance) Remote Patient Monitoring Vendor: [facility] [place] Device(s): Connected Scale [...] Classes - JULIA Class D - Inhaled Eybbtpetcqcohu-RFNR-RREY Combination Inhaler (Trellegy) Remote Patient Monitoring Vendor: [employer] Device(s): Continuous Monitoring Device Traditional Scale Self-Management plan High frequency nebulizer treatments every 4-6 hours around the clock Exacerbation plan Chest Xray Additional Comments: On continuous o2 2-3lpm Bipap at night Atherosclerosis of [place] co 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 pectoris 07/05/2023 [...] as of this encounter Progress Notes * Fred Joy, log handling equipment operator - 06/16/2024 2:00 PM EDT Contacts Type Contact Phone/Fax 06/16/2024 01:59 PM EDT Phone (Outgoing) Bala Coronado Jr. (Self) [phone] (M) Subjective Patient Findings Negatives: Signs/symptoms of thrombosis, Signs/symptoms of bleeding, Change in health, Change in alcohol use, Change in activity, Upcoming invasive procedure, Missed doses, Extra doses, Change in medications, Change in diet/appetite, Bruising Advised patient to contact Anticoagulation Clinic if any unusual bruising or bleeding, recent illness, changes in medication, or questions/concerns. PT/INR results, Coumadin dose instructions, and next PT/INR date communicated as noted by Pharmacist: Yes AMANDO Puentes 06/16/2024, 2:00 PM * Isabel Li RPh - 06/16/2024 10:53 AM EDT Coumadin Clinic (region specific) Objective Current Warfarin Dose As of 06/16/2024 Warfarin maintenance plan: 10 mg (10 mg x 1) every Mon, Wed, Fri; 15 mg (10 mg x 1.5) all other days INR Result As of 06/16/2024 INR goal: 2.0-3.0 INR used for dosin.2 (06/15/2024) Assessment & Plan Warfarin Plan As of 06/16/2024 Full warfarin instructions: 10 mg every Mon, Wed, Fri; 15 mg all other days No change documented: Isabel Li RPh Next INR check: 06/22/2024 Repeat PT/INR in 1 week(s) Weekly dose: not changed Additional Dosing Information: Description [facility] Pill packs from [facility] - Warfarin NOT included Tech to contact patient with dose instructions as noted. Isabel Li RPh 06/16/2024, 10:53 AM documented in this encounter Plan of Treatment Upcoming Encounters Date Type Department Care Team (Late st Contact Info) Description 06/23/2024 6:00 AM EDT Anticoagulation Centralized Clinical Pharmacy Services, Oscar Peace [address] [place] [address] [place] [address] [address] [facility], [address] [place] [address] 06/25/2024 7:00 AM EDT Laboratory Lab Mobile Phle[facility]omy [facility] [address] [facility] [address] [facility], [facility] [address] [facility] [address] 07/01/2024 8:50 AM EDT Telemedicine [facility], [facility] 132 [facility] [place] [address] Fabian Gonzalez PA-C [facility] [place] [address] Chacha Kennedy, Community Health Vehicle Assembler [address] [place] [address] 07/06/2024 11:00 AM EDT Office Visit Orthopaedics [facility] 132 [facility] [place] [address] Cm Dawson, 132 [facility] [place] [address] 07/09/2024 8:30 AM EDT Home Visit [facility], [facility] 132 [facility] [place] [address] Michelle Kim, RN 132 [place] [address] 07/27/2024 2:15 PM EDT Office Visit Interventional Pain Center, [facility] 132 [facility] [place] [address] Gely Gilmore MD [address] [place] [address] [place] [id number] 08/10/2024 12:20 PM EDT Office Visit [address] [address] Charley Crane MD [address] [facility] [address] 09/02/2024 3:00 PM EST Office Visit Sleep Disorders Ctr [facility] [address] [place] [phone] Nica Leey Lottie, [address] [place] [address] Health Maintenance Due Date Last Done Comments [...] as of this encounter Visit Diagnoses Diagnosis 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
--- OUTSIDE RECORDS SUMMARY | 2024-07-21 01:57 | External Medical Summary | Summary of Care ---
Author Name Unknown Organization [facility] Address [address] [facility] [address] Phone [phone] Care Team Providers Care Environmental Research Project Manager Name Role Phone Charley Crane MD Primary Care Provider [phone] Reason for Visit * Reason Comments Dosage Adjustment Via Phone (anticoag Cl inic) Encounter Details Date Type Department Care Team (Late st Contact Info) Description 06/23/2024 6:00 AM EDT Anticoagulation Centralized Clinical Pharmacy Services, Oscar Peace [address] [place] [address] [place] [address] [place] [address] oil heaterman current use of anticoagulant therapy*; Longstanding persistent atrial fibrillation (HCC); History of deep venous thrombosis (DVT) of distal vein of left lower extremity Allergies No known active allergiesdocumented as of this encounter (statuses as of 06/23/2024) Medications Medication Sig Dispensed Refills Start Date [...] as of this encounter (statuses as of 06/23/2024) Active Problems Problem Noted Date Diagnosed Date Stage 3 chronic kidney disease 06/15/2024 Hypertensive heart disease w ith chronic diastolic congestive heart failure 06/15/2024 Body mass index (BMI) 45.0-49.9, adult COPD, group D, by GOLD 2017 classification 11/04 Overview: Per COPD GOLD Classification 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 Jardiance) Remote Patient Monitoring Vendor: [facility] Device(s): Connected Scale Continuous Monitoring [...] as of this encounter (statuses as of 06/23/2024) Resolved Problems Problem Noted Date Diagnosed Date [...] Classes - JULIA Class D - Inhaled Oamthnjerzfyhv-URWC-KKCK Combination Inhaler (Sandro) Remote Patient Monitoring Vendor: [facility] Device(s): Continuous Monitoring Device Traditional Scale Self-Management plan High frequency nebulizer treatments every 4-6 hours around the clock Exacerbation plan Chest Xray Additional Comments: On continuous o2 2-3lpm Bipap at night Atherosclerosis of [place] co 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 pectoris [...] as of this encounter (statuses as of 06/23/2024) Immunizations Name Administration Dates Next Due Pneumococcal [...] as of this encounter Progress Notes * Nandini Evans CPhT - 06/23/2024 10:30 AM EDT Contacts Contact Date/Time Type Contact Phone/Fax 06/23/2024 10:23 AM EDT Phone (Outgoing) Bala Coronado Jr. (Self) [phone] (M) Subjective Patient Findings Negatives: Signs/symptoms of bleeding, Change in health, Change in activity, Upcoming invasive procedure, Missed doses, Extra doses, Change in medications, Change in diet/appetite, Bruising Advised patient to contact Anticoagulation Clinic if any unusual bruising or bleeding, recent illness, changes in medication, or questions/concerns. PT/INR results, Coumadin dose instructions, and next PT/INR date communicated as noted by Pharmacist: Yes Nandini Evans CPhT 06/23/2024, 10:30 AM * Isabel Li RPh - 06/23/2024 8:14 AM EDT Coumadin Clinic (region specific) Objective Current Warfarin Dose As of 06/23/2024 Warfarin maintenance plan: 10 mg (10 mg x 1) every Mon, Wed, Fri; 15 mg (10 mg x 1.5) all other days INR Result As of 06/23/2024 INR goal: 2.0-3.0 INR used for dosin.9 (06/22/2024) Assessment & Plan Warfarin Plan As of 06/23/2024 Full warfarin instructions: 10 mg every Mon, Wed, Fri; 15 mg all other days No change documented: Isabel Li RPh Next INR check: 07/02/2024 Repeat PT/INR in 1.5 week(s) Weekly dose: not changed Additional Dosing Information: Description [facility] Pill packs from [facility] - Warfarin NOT included Tech to contact patient with dose instructions as noted. Isabel Li RPh 06/23/2024, 8:14 AM documented in this encounter Plan of Treatment Upcoming Encounters Date Type Department Care Team (Late st Contact Info) Description 06/25/2024 7:00 AM EDT Laboratory Lab Mobile Phlebotomy [facility] [address] [place] [address] [facility], [facility] Mobile Home Draw [address] [facility] [address] [place] [address] 07/01/2024 8:50 AM EDT Telemedicine [facility], [facility] [address] [place] [address] Fabian Gonzalez PA-C [address] [place] [address] Chacha Kennedy, Community Health Complex Case Manager [address] [place] [address] 07/03/2024 6:00 AM EDT [facility] Clinical Pharmacy Services, [place] Peace [address] [place] [address] [place] [address] [facility], [address] [place] [address] 07/06/2024 11:00 AM EDT Office Visit Orthopaedics [facility] [address] [place] [address] Cm Dawson DO [address] [place] [address] 07/09/2024 8:30 AM EDT [facility] Visit [facility], [facility] [address] [place] [address] Michelle Kim, RN [address] [facility] [place] [address] 07/27/2024 2:15 PM EDT Office Visit Interventional Pain Center, [facility] [address] [place] [address] Gely Gilmore MD [address] [place] [address] [place] [address] 08/10/2024 12:20 PM EDT Office Visit [address] [place] [address] Charley Crane MD [address] [place] [address] 09/02/2024 3:00 PM EST Office Visit Sleep Disorders Ctr [facility] [address] [place] [phone] Audrey Lee, [address] [place] [address] Health Maintenance Due Date Last Done Comments Alpha-1 Antitrypsin 1974 CKD PHOS USE SMARTSET 14543 1974 DTap/Tdap Vaccines (1 - Tdap) 1975 [...] 04/28/2024, , 09/09/2023 CKD HGB USE SMARTSET 65258 06/15/202506/15, 06/15/2024, 05/27/2024, Additional history exists Diabetic [...] as of this encounter Visit Diagnoses Diagnosis 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
--- OUTSIDE RECORDS SUMMARY | 2024-07-21 01:57 | External Medical Summary | Summary of Care ---
Author Name Unknown Organization [facility] Address [address] [place] [address] Phone [phone] Care Team Providers Care Orthotic And Prosthetic Technician Name Role Phone Charley Crane MD Primary Care Provider [phone] Reason for Visit * Reason Onset Date Comments Advice 06/17/2024 [facility] Home Health update Encounter Details Date Type Department Care Team (Late st Contact Info) Description 06/17/2024 Telephone [facility] [address] [place] [address] Charley Crane MD [address] [place] [address] Advice ([facility] Home Health update) Allergies No known active [...] classification 11/04 Overview: Per COPD GOLD Classification 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 Jardiance) Remote Patient Monitoring Vendor: [facility] Device(s): Connected Scale Continuous Monitoring [...] Classes - JULIA Class D - Inhaled Hflxfaddegixyu-UAIZ-WQUD Combination Inhaler (Trellegy) Remote Patient Monitoring Vendor: [facility] Device(s): Continuous Monitoring Device Traditional Scale Self-Management plan High frequency nebulizer treatments every 4-6 hours around the clock Exacerbation plan Chest Xray Additional Comments: On continuous o2 2-3lpm Bipap at night Atherosclerosis of [place] co 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 pectoris 07/05/2023 [...] No 02/10/2024 Does the household have a [facility] source of income? (Household - for [...] EDT HH Concerns Juan POLANCO, Calling from: [facility] Report/Concerns of: Symptoms: cough- productive Cough with small amount mod thickness with off white phlegm Narrative: Juan RN Avionics Systems Technician, calling from [facility]. Patient was called from their Home Health [...] on his status. Given triage nurseline of [phone] Call back Juan with any advice or orders at [phone] Please fax new orders to [facility] Home Health * Telephone Encounter - Tommie Hilliard OSA - 06/17/2024 8:54 AM EDT Reason for patient's call: Juan with [facility] is calling to give a status update on the patient. Caller was transferred to [facility] at the nurse line. documented in this encounter Plan of Treatment Upcoming Encounters Date Type Department Care Team (Late st Contact Info) Description 06/18/2024 4:40 PM EDT Office Visit [facility] [address] [place] [facility] [place] [phone] Charley Crane MD [address] [place] [address] 06/22/2024 7:05 AM EDT Laboratory Lab Mobile Phlebotomy [facility] [address] [employer] [place] [address] Mvmg, [facility] Mobile Home Draw [address] [employer] [place] [address] 06/23/2024 6:00 AM EDT Anticoagulation Centralized Clinical Pharmacy Services, Oscar Peace [address] [place] [address] [place] [address] [facility], [address] [place] [address] 06/25/2024 7:00 AM EDT Laboratory Lab Mobile Phlebotomy [facility] [place] [address] M[facility], Gml Mobile Home Draw [address] [facility] [place] [address] 07/01/2024 8:50 AM EDT [facility]icine [facility] [place], [facility] [address] [place] [address] Fabian Gonzalez PA-C [address] [place] [address] Chacha Kennedy, Community Health Mucking Machine Operator [address] [place] [address] 07/06/2024 11:00 AM EDT Office Visit Orthopaedics [facility] [address] [place] [address] Cm Dawson, [address] [place] [address] 07/09/2024 8:30 AM EDT Home Visit [facility] [place], [facility] [address] [place] [address] Michelle Kim, RN [address] [place] [address] 07/27/2024 2:15 PM EDT Office Visit Interventional Pain Center, [facility] [address] [place] [address] Gely Gilmore MD [address] [place] [address] 08/10/2024 12:20 PM EDT Office Visit [facility] [address] [place] [facility] [place] [phone] Charley Crane MD [address] [place] [address] 09/02/2024 3:00 PM EST Office Visit Sleep Disorders Ctr [facility] [address] [place] [phone] Audrey Lee DO [address] [place] [address] Health Maintenance Due Date Last Done Comments Alpha-1 Antitrypsin 1974 CKD PHOS USE SMARTSET 73224 1974 DTaP,Tdap,and Td Vaccines (1 - Tdap) [...] 04/28/2024, , 09/09/2023 CKD HGB USE SMARTSET 69460 06/15/202506/15, 06/15/2024, 05/27/2024, Additional history exists Diabetic [...] filedocumented as of this encounter Care Teams Orthotic And Prosthetic Technician Relationship Specialty Start Date End Date Charley Crane MD [address] [place] [address] PCP - General Internal Medicine 06/04/23 documented as of this encounter
--- OUTSIDE RECORDS SUMMARY | 2024-07-21 01:58 | External Medical Summary ---
Author Name Unknown Address Unknown Organization [id number]:[facility] [place] [address] [facility] [place] [address] Laboratory Report Ordering Provider Test Date Status VIRGIL BORREGO 06/15/2024 14:40:19 Final Observation Date Value Abnormality Reference (Units ) Status BUN 06/15/2024 14:40:19 41 Above high normal 6-20 (mg/dL) Final Creatinine 06/15/2024 14:40:19 0.9 0.6-1.2 (mg/dL) Final Glomerular filtration rate/1.73 sq M.predicted [Volume Rate/Area] in Serum, Plasma or Blood by Creatinine-based formula (CKD-EPI) 06/15/2024 14:40:19 >90 >=60 (mL/min) Final eGFR is calculated based on the CKD-EPI 2020 equation. Sodium 06/15/2024 14:40:19 136 135-146 (m mol/L) Final Potassium 06/15/2024 14:40:19 4.4 3.5-5.1 (m mol/L) Final Cl 06/15/2024 14:40:19 97 Below low normal 98- 107 (mmol/L) Final CO2 06/15/2024 14:40:19 26 22-32 (mmo l/L) Final Anion gap 06/15/2024 14:40:19 13 7-15 (mmol /L) Final Glucose 06/15/2024 14:40:19 118 70-120 (mg /dL) Final Albumin 06/15/2024 14:40:19 3.9 3.8-5.0 (g /dL) Final AST (Aspartate aminotransferase) 06/15/2024 14:40:19 18 10-50 (U/L) Fin al Alk Phos 06/15/2024 14:40:19 96 35-130 (U/ L) Final Bilirubin, Total 06/15/2024 14:40:19 0.5 <=1 .2 (mg/dL) Final Calcium 06/15/2024 14:40:19 9.4 8.4-10.2 ( mg/dL) Final Protein 06/15/2024 14:40:19 6.5 6.0-8.3 (g /dL) Final ALT (Alanine aminotransferase) 06/15/2024 14:40:19 19 10-50 (U/L) Rubén sanders Performing Location [facility] [place] [facility] [address]. [facility] [id number]
--- OUTSIDE RECORDS SUMMARY | 2024-07-21 01:58 | External Medical Summary | Summary of Care ---
Author Name Unknown Organization [facility] Address [address] [place] [address] Phone [phone] Care Team Providers Care Program Director Scouting Name Role Phone Charley Crane MD Primary Care Provider [phone] Reason for Visit * Reason Onset Date Comments MyCode Nonconsent - Not interested at this time 06/15/2024 Encounter Details Date Type Department Care Team (Late st Contact Info) Description 06/15/2024 Orders Only Outcomes Research Department [address] [place] [address] Maira Segal CHRA MyCode Nonconsent Documentation Allergies No known active allergiesdocumented as of this encounter (statuses as of 06/15/2024) Medications Medication Sig Dispensed Refills Start Date [...] or Wheezing. 54 g 1 4 Active Doxycycline Hyclate 100 MG Oral Capsule Take 1 Capsule by mouth in the morning and 1 Capsule before bedtime. Until gone. COPD rescue kit. 20 Capsule 4 Active predniSONE 20 MG Oral Tablet (Deltasone) Take 2 Tablets by mouth in the morning. COPD rescue kit. 10 Tablet 4 Active Fluticasone Propionate 50 MCG/ACT Nasal [...] other day. 45 Capsule 1 4 Active Additional Information Patient not taking.Reported on 06/03/2024 Pantoprazole Sodium 40 MG Oral Tablet Delayed Release (Protonix) TAKE 1 TABLET BY MOUTH EVERY MORNING 90 Tablet 1 4 Active Trelegy Ellipta 100-62.5-25 MCG/ACT Aerosol Powder Breath Activated (Fluticasone-Umecl idinium-Vilanterol ) Inhale 1 Puff by mouth in the morning. 180 Blister Dosing Unit 3 4 Active Zoster Vac Recomb Adjuvanted 50 MCG/0.5ML Intramuscular Suspension Reconstituted (Shingrix) Inject 0.5 mL into a large muscle now and repeat dose in 60 to 180 days 1 Each 1 3 06/15/20 24 Discontinu ed(Patient preference /discontin uation) Zoster Vac Recomb Adjuvanted 50 MCG/0.5ML Intramuscular Suspension Reconstituted (Shingrix) Inject 0.5 mL into a large muscle now and repeat dose in 60 to 180 days 1 Each 1 4 06/15/20 24 Discontinu ed(Patient preference /discontin uation) documented as of this encounter (statuses as of 06/15/2024) Active Problems Problem Noted Date Diagnosed Date COPD, group D, by GOLD 2017 classification 11/04 Overview: 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 Jardiance) Remote Patient Monitoring Vendor: [facility] Device(s): Connected Scale Continuous Monitoring [...] as of this encounter (statuses as of 06/15/2024) Resolved Problems Problem Noted Date Diagnosed Date [...] Classes - JULIA Class D - Inhaled [id number] Combination Inhaler (Sandro) Remote Patient Monitoring Vendor: [facility] Device(s): Continuous Monitoring Device Traditional Scale Self-Management plan High frequency nebulizer treatments every 4-6 hours around the clock Exacerbation plan Chest Xray Additional Comments: On continuous o2 2-3lpm Bipap at night Atherosclerosis of [place] co 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 pectoris 07/05/2023 08/29/2023 Dyspnea 07/04/2023 08/13/2023 Occupational exposure in workplace 07/04/2023 02/14/2024 Chronic congestive heart failure 06/08/2023 07/05/2023 COPD, severe 06/08/2023 07/11/2023 Overview: Per COPD GOLD Classification Chronic hypoxemic respiratory failure 06/08/2023 07/04/2023 Chronic respiratory failure with hypoxia, on home oxygen therapy 06/08/2023 08/29/2023 Diabetes mellitus without complication 06/08/2023 08/29/2023 documented as of this encounter (statuses as of 06/15/2024) Immunizations Name Administration Dates Next Due Pneumococcal [...] as of this encounter Progress Notes * Maira Segal CHRA - 06/15/2024 1:47 PM EDT MyCode Nonconsent Documentation Bala Coronado Jr. was approached in the clinic regarding participation in the MyCode Project and did not consent. documented in this encounter Plan of Treatment Upcoming Encounters Date Type Department Care Team (Late st Contact Info) Description 06/25/2024 7:00 AM EDT Laboratory Lab [facility] [address] [facility] [place] [address] [facility], [facility] Home Draw [address] [facility] [place] [address] 06/26/2024 6:00 AM EDT Antico[facility], Oscar Peace [address] [place] [address] [place] [address] [facility], [address] [place] [address] 07/01/2024 8:50 AM EDT Telemedicine [facility] [place] [address] [place] [address] Fabian Gonzalez PA-C [address] [place] [address] Chacha Kennedy, [facility] Programmer [address] [place] [address] 07/06/2024 11:00 AM EDT Office Visit Orthopaedics [facility] [address] [place] [address] [address] Cm Dawson, [address] [place] [address] 07/09/2024 8:30 AM EDT Home Visit [facility], [facility] [address] [place] [address] [address] Michelle Kim, RN [address] [place] [address] 07/27/2024 2:15 PM EDT Office Visit Interventional Pain Center, [facility] [address] [place] [address] Gely Gilmore MD [address] [place] [address] 08/10/2024 12:20 PM EDT Office Visit [facility] [address] [facility] [place] [phone] Charley Crane MD [address] [place] [address] 09/02/2024 3:00 PM EST Office Visit Sleep Disorders Ctr [facility] [address] [place] [phone] Audrey Lee DO [address] [facility] [place] [address] Health Maintenance Due Date Last Done Comments Alpha-1 Antitrypsin 1974 DTaP,Tdap,and Td Vaccines (1 - Tdap) 1975 Cologuard 2001 Colonoscopy 2001 Colorectal Cancer Screening 2001 Fecal Occult Blood Test 2001 Sigmoidoscopy 2001 AAA Screening 2021 COVID-19 Vaccine ( season) 2023 Diabetic Foot Exam 06/21/2024 06/21/2023 Influenza Vaccine (FLU shot) (#1) 2024 07/05/2023, 07/05/2023 HbA1c 08/11/2024 02/10/2024, 06/21/2023 Adult Wellness Visit 02/09/2025 02/10/2024 Albumin/Creatinine Ratio 02/09/2025 02/10/2024 Depression Screening 02/09/2025 02/10/2024 Diabetic Eye Exam 04/28/2025 04/28/2024, , 09/09/2023 GFR 05/29/2025 05/29/2024, 04/29, 05/20/2024, Additional history exists O2 ASSESSMENT COMPLETED IN PAST YEAR FOR COPD 06/03/2025 06/03/2024 Pneumococcal Vaccine: 65+ Years Completed 07/05/2023 Zoster [...] filedocumented as of this encounter Care Teams Program Director Scouting Relationship Specialty Start Date End Date Charley Crane MD [address] [place] [address] PCP - General Internal Medicine 06/04/23 documented as of this encounter
--- OUTSIDE RECORDS SUMMARY | 2024-07-21 01:58 | External Medical Summary | Summary of Care ---
Author Name Unknown Organization [facility] Address [address] [place] [address] Phone [phone] Care Team Providers Care Fire Management Officer Name Role Phone Charley Crane MD Primary Care Provider [phone] Reason for Visit * Reason Onset Date Comments Hospital Follow-Up Pt here today for hospital discharge follow up Hospital Follow-Up 06/15/2024 Encounter Details Date Type Department Care Team (Latest Contact Info) Description 06/15/2024 2:00 PM EDT Office Visit [facility] [address] [place] [address] Charley Crane MD [address] [place] [address] Acute respiratory failure with hypoxia and hypercapnia ([facility])*; Acute on chronic diastolic (congestive) heart failure (HCC); Multifocal pneumonia; Type 2 diabetes mellitus with diabetic dermatitis, without long-term current use of insulin (HCC); Type 2 diabetes mellitus with hemoglobin A1c goal of less than 7.0% ([facility]); PHT (pulmonary hypertension) ([facility]); On Coumadin for atrial fibrillation (HCC); Obesity hypoventilation syndrome ([facility]); COPD, group D, by GOLD 2017 classification ([facility]); Chronic heart failure with preserved ejection fraction ([facility]); Hypertension goal BP (blood pressure) < 130/80; History of deep venous thrombosis (DVT) of distal vein of left lower extremity; Hospital 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 follow-up; 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; Stage 3 chronic kidney disease, unspecified whether stage 3a or 3b CKD ([facility]); Hypertensive heart disease with chronic diastolic congestive heart failure (HCC); Body mass index (BMI) 45.0-49.9, adult (HCC) Allergies No known active allergiesdocumented as of [...] days 1 Each 1 09/09/20 23 024 Discontinued(Pa tient preference/disc ontinuation) Zoster Vac Recomb Adjuvanted 50 MCG/0.5ML Intramuscular Suspension Reconstituted (Shingrix) Inject 0.5 mL into a large muscle now and repeat dose in 60 to 180 days 1 Each 1 11/26/19 24 024 Discontinued(Pa tient preference/disc ontinuation) predniSONE 20 MG Oral Tablet (Deltasone) Take [...] 07/08/2023 Overview: Per Obesity protocol Atherosclerosis of [place] 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 Jardiance) Remote Patient Monitoring Vendor: [facility] Device(s): Connected Scale Continuous Monitoring Device Self [...] Classes - JULIA Class D - Inhaled Llzokzwmdpjzkb-BICD-JOXJ Combination Inhaler ([facility]) Remote Patient Monitoring Vendor: [facility] Device(s): Continuous Monitoring Device Traditional Scale Self-Management plan High frequency nebulizer treatments every 4-6 hours around the clock Exacerbation plan Chest Xray Additional Comments: On continuous o2 2-3lpm Bipap at night Atherosclerosis of [place] 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 pectoris 07/05/2023 [...] No 02/10/2024 Does the household have a [facility] source of income? (Household - for [...] Sign Reading Time Taken Comments Blood Pressure 122/76 06/15/2024 1:54 PM EDT Pulse 76 06/15/2024 1:54 PM EDT Temperature 37 C (98.6 F) 06/15/2024 1:54 PM EDT Respiratory Rate 20 06/15/2024 1:54 PM EDT Oxygen Saturation 93% 06/15/2024 1:54 PM EDT Inhaled Oxygen Concentration - - Weight 142.4 kg (314 lb) 06/15/2024 1:54 PM EDT Height - - Body Mass Index 49.18 09/09/2023 12:03 PM EST documented in this encounter Patient Instructions * Patient Instructions* Charley Crane MD - 06/15/2024 2:02 PM EDT Please resume spironolactone 25 mg daily Keep compression stockings Continue torsemide 40 mg daily Keep spirometer and flutter several times per day for lung exercise If leg swelling gets worse, should call me to adjust water pill dose Diabetes: Keeping Feet Healthy Inspect your feet every day for signs of a problem. Diabetes can damage nerves in your feet and cause neuropathy. This condition makes it hard for you to feel injuries or sore spots. Diabetes can also change blood flow, making it harder for small problems, like a blister, to heal properly. In fact, minor injuries can quickly become serious infections that send you to the hospital. Practice self-care to protect your feet and keep them healthy. Take Special Care Inspect your feet daily for problems such as redness, blisters, cracks, dry skin, or numbness. Use a mirror to see the bottoms of your feet. Or, ask for help. Manage your diabetes. Monitor and control your blood sugar. Take all your medications as prescribed. Avoid walking barefoot, even indoors. Wash your feet with warm water and mild soap. Dry well, especially between toes. Dont treat corns or calluses yourself. Talk to your doctor or headrig sawyer (a doctor who specializes in foot care) if you need assistance trimming your toenails. Use moisturizing cream or lotion if you have dry skin, but dont use it between toes. Dont use heating pads on your feet. If you have neuropathy, you could get a burn and not feel it. Stop smoking. Smoking restricts blood flow and can make it harder for wounds to heal. Have Regular Checkups Foot problems can develop quickly. So be sure to follow your healthcare teams schedule for regular checkups. During office visits, take off your shoes and socks as soon as you get in the exam room. Ask your healthcare provider to examine your feet for problems. This will make it easier to find and treat small skin irritations before they get worse. Regular checkups can also help keep track of the blood flow and feeling in your feet. If you have neuropathy, you may need to have checkups more often. Wear Proper Footwear Wearing proper footwear is very important. If areas of your feet have been damaged by too much pressure, your healthcare provider may recommend changing your footwear. In some cases, avoiding high heels or tight work boots may be all thats needed. Or, your healthcare provider may recommend special shoes or custom inserts. These help protect your feet and keep existing irritations from getting worse. If you need special footwear, ask your healthcare provider if you qualify for [facility] diabetic shoe program. Make Sure Shoes and Socks Fit Any pair of shoes--new or old--should feel comfortable as soon as you put them on. There shouldnt be any rubbing when you walk. Wear the right shoe for any activity. For instance, a running shoe is designed to keep your feet injury-free while jogging. Buy shoes at the end of the day, when your feet are larger. Make sure they provide support without feeling too loose. Make sure your socks fit, t oo. Wear soft, seamless, well-padded socks for activity. Cotton or microfiber socks are best to help to absorb sweat. To protect your feet, avoid shoes that are open-toed or open-heeled. If you have questions about what kinds of shoes and socks are best, talk to your healthcare team. Get Regular Exercise Regular exercise improves blood flow in your feet. It also increases foot strength and flexibility.Gentle exercises, like walking or riding a stationary bicycle, are best. You can also do special foot exercises. Just be sure to talk with your healthcare provider before starting any exercise program. Also mention if any exercise causes pain, redness, or other signs of foot problems. Note: If you have any kind of break in the skin of your foot or ankle, keep the area clean. Then call your doctor--especially if the area doesnt appear to be healing. [id number] [employer], [address] [place] [address], [place] [address]. All rights reserved. This information is not intended as a substitute for professional medical care. Always follow your healthcare professional's instructions. documented in this encounter Progress Notes * Charley Crane MD - 06/15/2024 2:10 PM EDT Subjective Bala Mccraryhari Mcgowan. is a 68 year old male. Chief Complaint Patient presents with Hospital Follow-Up Pt here today for hospital discharge follow up Hospital Follow-Up HPI: Here for hospital f/u Admission May 13 Discharge May 19 Acute resp failure on chronic resp failure , due to multifocal PNA Started having some URI sx at first and progressed quickly to PNA, which he had similar episode last year Done with ABx And using spirometer and flutter both - still bringing up some mucus , taking mucinex prn Taking O2 3L now Still taking trelegy daily , known COPD, obesity hypoventilation synd , BiPAP Neb Tx 3-4 times per day Morbid obesity , HTN, CKD , hx of PE, DVT and chronic afib, on coumadin Was seen by cardio - decreased spironolactone to 12.5 mg due to high dose IV lasix but now ok to take full tab Some weight gain still Type 2 Dm : controlled, last hba1c 6.1 Jardiance 10 mg and for CHF PMH: Patient Active Problem List Diagnosis History of deep venous thrombosis (DVT) of distal vein of left lower extremity Type 2 diabetes mellitus with hemoglobin A1c goal of less than 7.0% ([facility]) Squamous cell carcinoma, face Venous insufficiency O2 dependent History of open leg wound On Coumadin for atrial fibrillation ([facility]) Type 2 diabetes mellitus with diabetic dermatitis ([facility]) PHT (pulmonary hypertension) ([facility]) Tobacco abuse, in remission Chronic respiratory failure with hypoxia and hypercapnia ([facility]) Obesity hypoventilation syndrome ([facility]) Family history of lung cancer Chronic heart failure with preserved ejection fraction ([facility]) Atherosclerosis of [place] co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 pectoris BiPAP (biphasic positive airway pressure) dependence Body mass index (BMI) of 40.0 to 44.9 in adult ([facility]) Longstanding persistent atrial fibrillation ([facility]) Hypertension goal BP (blood pressure) < 130/80 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 COPD rescue kit. 20 Capsule 0 Fluticasone Propionate 50 MCG/ACT Nasal Suspension (Flonase) Administer 2 Sprays into each nostril in the morning. 16 g 1 Atorvastatin Calcium 80 MG Oral Tablet (Lipitor) [...] Ellipta 100-62.5-25 MCG/ACT Aerosol Powder Breath Activated (Whwnwvntlet-Quxbkynkuzff-Zwfjsdplwu) Inhale 1 Puff by mouth in the morning. 180 Blister Dosing Unit 3 Albuterol Sulfate HFA 108 (90 Base) MCG/ACT Inhalation Aerosol Solution Inhale 2 Puffs by mouth every 6 hours as needed for Shortness of Breath or Wheezing. 54 g 1 No current facility-administered medications for this visit. Past Medical History: Diagnosis Date Chronic congestive heart failure (HCC) 06/08/2023 Heart failure preserved ejection fraction Chronic respiratory failure with hypoxia, on home oxygen therapy (HCC) 06/08/2023 COPD (chronic obstructive pulmonary disease) (HCC) COPD, severe (HCC) 06/08/2023 Family history of lung cancer 07/04/2023 Mother's side of the family. 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 Negative for appetite change, chills, diaphoresis and fever. HENT: Positive for postnasal drip. Negative for congestion. Respiratory: Positive for cough, chest tightness and shortness of breath. Negative for wheezing. Cardiovascular: Positive for leg swelling. Negative for chest pain and palpitations. Gastrointestinal: Negative for abdominal distention, abdominal pain, nausea and vomiting. Endocrine: Negative. Musculoskeletal: Positive for arthralgias and gait problem. Allergic/Immunologic: Positive for environmental allergies. Neurological: Positive for dizziness. Negative for light-headedness. Psychiatric/Behavioral: Positive for dysphoric mood and sleep disturbance. Negative for agitation and behavioral problems. Objective BP 122/76 | Pulse 76 | Temp 37 C (98.6 F) (Tympanic) | Resp 20 | Wt (!) 142.4 kg (314 lb) | SpO2 93% | BMI 49.18 kg/m | BSA 2.59 m Physical Exam Constitutional: General: He is not in acute distress. Appearance: Normal appearance. He is obese. He is not ill-appearing, toxic- appearing or diaphoretic. HENT: Head: Normocephalic and atraumatic. Nose: Nose normal. Eyes: Extraocular Movements: Extraocular movements intact. Cardiovascular: Rate and Rhythm: Normal rate. Rhythm irregular. Pulses: Normal pulses. Pulmonary: Effort: Respiratory distress (chronic mild) present. Breath sounds: No stridor. Rhonchi present. No wheezing or rales. Comments: O2 3L/min Chest: Chest wall: No tenderness. Musculoskeletal: General: Normal range of motion. Cervical back: Normal range of motion. Right lower leg: Edema present. Left lower leg: Edema present. Skin: Findings: Rash present. Neurological: General: No focal deficit present. Mental Status: He is alert and oriented to person, place, and time. Psychiatric: Behavior: Behavior normal. Comments: Depression ASSESSMENT/PLAN: Acute respiratory failure with hypoxia and hypercapnia (HCC) (Primary) - CBC WITH WBC DIFFERENTIAL; Future; Expected date: 06/15/2024 - COMPREHENSIVE METABOLIC PANEL; Future; Expected date: 06/15/2024 - CBC WITH WBC DIFFERENTIAL - COMPREHENSIVE METABOLIC PANEL Acute on chronic diastolic (congestive) heart failure (HCC) - CBC WITH WBC DIFFERENTIAL; Future; Expected date: 06/15/2024 - COMPREHENSIVE METABOLIC PANEL; Future; Expected date: 06/15/2024 - BNP, NT-PRO; Future; Expected date: 06/15/2024 - CBC WITH WBC DIFFERENTIAL - COMPREHENSIVE METABOLIC PANEL - BNP, NT-PRO Multifocal pneumonia Type 2 diabetes mellitus with diabetic dermatitis, without long-term current use of insulin ([facility]) - DIABETES FOOT EXAM - HEMOGLOBIN A1C; Future; Expected date: 06/15/2024 - HEMOGLOBIN A1C Type 2 diabetes mellitus with hemoglobin A1c goal of less than 7.0% (HCC) PHT (pulmonary hypertension) (HCC) On Coumadin for atrial fibrillation (HCC) Obesity hypoventilation syndrome (HCC) COPD, group D, by GOLD 2017 classification (HCC) Chronic heart failure with preserved ejection fraction (HCC) Hypertension goal BP (blood pressure) < 130/80 History of deep venous thrombosis (DVT) of distal vein of left lower extremity Hospital discharge follow-up - DISCH MED RECON CUR MED LIS group home current use of anticoagulant therapy - PT INR F/u labs Please resume spironolactone 25 mg daily Keep compression stockings Continue torsemide 40 mg daily Keep spirometer and flutter several times per day for lung exercise If leg swelling gets worse, should call me to adjust water pill dose Charley Crane MD * Ashely Garduno LPN - 06/15/2024 1:53 PM EDT Socks and Shoes Removed for Annual Diabetic Foot Screening RIGHT FOOT: Area of Concern: feet are swollen . RIGHT Dorsalis Pedis Pulse: Palpable RIGHT Posterior Tibial Pulse: Palpable RIGHT Monofilament:Patient reports difficulty feeling monofilament at Great toe- plantar surface, Ball of Foot-base of 3rd toe, and Ball of Foot-base of little toe LEFT FOOT: Area of Concern feet are swollen LEFT Dorsalis Pedis Pulse: Palpable LEFT Posterior Tibial Pulse: Palpable LEFT Monofilament:Patient reports difficulty feeling monofilament at Great toe- plantar surface, Ball of Foot-base of great toe, Ball of Foot-base of 3rd toe, and Ball of Foot-base of little toe Do you need diabetic shoes: No DM Foot Exam completed today. Provider aware. Ashely Garduno LPN documented in this encounter Nursing Notes * Ashely Garduno LPN - 06/15/2024 1:45 PM EDT Chief Complaint Patient presents with Hospital Follow-Up Pt here today for hospital discharge follow up documented in this encounter Plan of Treatment Upcoming Encounters Date Type Department Care Team (Late st Contact Info) Description 06/25/2024 7:00 AM EDT Laboratory Lab Mobile Phlebotomy [facility] [address] [facility] [place] [address] [facility], Gml Mobile Home Draw [address] [facility] [place] [address] 06/26/2024 6:00 AM EDT Anticoagulation [facility], Oscar Peace [address] [place] [address] [place] [address] [facility], [address] [place] [address] 07/01/2024 8:50 AM EDT Telemedicine [facility], [facility] [address] [place] [address] Fabian Gonzalez PA-C [address] [place] [address] Chacha Kennedy, Community Health Wire Setter [address] [place] [address] 07/06/2024 11:00 AM EDT Office Visit Orthopaedics [facility] [address] [address] Cm Dawson, [address] [place] [address] 07/09/2024 8:30 AM EDT Home Visit [facility], [facility] [place] [address] Michelle Kim, RN [address] [place] [address] 07/27/2024 2:15 PM EDT Office Visit Interventional [facility] Center, [facility] [address] [facility] [place] [address] Gely Gilmore MD [address] [place] [address] [place] [address] 08/10/2024 12:20 PM EDT Office Visit [facility] [address] [place] [id number] Charley Crane MD [address] [place] [address] 09/02/2024 3:00 PM EST Office Visit Sleep Disorders [facility] [address] [facility] [place] [phone] Audrey Lee DO [address] [facility] [place] [address] Pending Results Name Type Priority Associated Diagnoses Date /Time CBC WITH WBC DIFFERENTIAL Lab Routine Acute respiratory failure with hypoxia and hypercapnia (HCC) Acute on chronic diastolic (congestive) heart failure (HCC) 06/15/2024 2:40 PM EDT COMPREHENSIVE METABOLIC PANEL Lab Routine Acute respiratory failure with hypoxia and hypercapnia (HCC) Acute on chronic diastolic (congestive) heart failure (HCC) 06/15/2024 2:40 PM EDT BNP, NT-PRO Lab Routine Acute on chronic diastolic (congestive) heart failure (HCC) 06/15/2024 2:40 PM EDT HEMOGLOBIN A1C Lab Routine Type 2 diabetes mellitus with diabetic dermatitis, without long-term current use of insulin (HCC) 06/15/2024 2:40 PM EDT PT INR Lab Routine 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 06/15/2024 2:40 PM EDT CBC Lab Routine Acute respiratory failure with hypoxia and hypercapnia (HCC) Acute on chronic diastolic (congestive) heart failure (HCC) 06/15/2024 2:40 PM EDT DIFFERENTIAL, AUTOMATED Lab Routine Acute respiratory failure with hypoxia and hypercapnia (HCC) Acute on chronic diastolic (congestive) heart failure (HCC) 06/15/2024 2:40 PM EDT Scheduled Orders Name Type Priority Associated Diagnoses Orde r Schedule CBC WITH WBC DIFFERENTIAL Lab Routine Acute respiratory failure with hypoxia and hypercapnia (HCC) Acute on chronic diastolic (congestive) heart failure (HCC) Expected: 06/15/2024 (Approximate), Expires: 06/15/2025 COMPREHENSIVE METABOLIC PANEL Lab Routine Acute respiratory failure with hypoxia and hypercapnia (HCC) Acute on chronic diastolic (congestive) heart failure (HCC) Expected: 06/15/2024 (Approximate), Expires: 06/15/2025 BNP, NT-PRO Lab Routine Acute on chronic diastolic (congestive) heart failure (HCC) Expected: 06/15/2024 (Approximate), Expires: 06/15/2025 HEMOGLOBIN A1C Lab Routine Type 2 diabetes mellitus with diabetic dermatitis, without long-term current use of insulin (HCC) Expected: 06/15/2024 (Approximate), Expires: 06/15/2025 Health Maintenance Due Date Last Done Comments Alpha-1 Antitrypsin 1974 DTaP,Tdap,and Td Vaccines (1 - Tdap) 1975 Cologuard 2001 Colonoscopy 2001 Colorectal Cancer Screening 2001 Fecal Occult Blood Test 2001 Sigmoidoscopy 2001 AAA Screening 2021 COVID-19 Vaccine (2022- season) 2023 Influenza Vaccine (FLU shot) (#1) 2024 07/05/2023, 07/05/2023 HbA1c 08/11/2024 02/10/2024, 06/21/2023 GFR 11/29/2024 05/29/2024, 04/29, 05/20/2024, Additional history exists Adult Wellness Visit 02/09/2025 02/10/2024 Albumin/Creatinine Ratio [...] as of this encounter Visit Diagnoses Diagnosis Acute respiratory failure with hypoxia and hypercapnia (HCC)- Primary Acute on chronic diastolic (congestive) heart failure (HCC) Multifocal pneumonia Type 2 diabetes mellitus with diabetic dermatitis, without long-term current use of insulin (HCC) Type 2 diabetes mellitus with hemoglobin A1c goal of less than 7.0% (HCC) PHT (pulmonary hypertension) (HCC) Other chronic pulmonary heart diseases On Coumadin for atrial fibrillation (HCC) Obesity hypoventilation syndrome (HCC) Obesity hypoventilation syndrome COPD, group D, by GOLD 2017 classification (HCC) Chronic heart failure with preserved ejection fraction (HCC) Hypertension goal BP (blood pressure) < 130/80 Unspecified essential hypertension History of deep venous thrombosis (DVT) of distal vein of left lower extremity Hospital discharge follow-up Other follow-up examination 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
--- OUTSIDE RECORDS SUMMARY | 2024-07-21 01:58 | External Medical Summary ---
Author Name Unknown Address Unknown Organization K01:LAB[facility] - [facility] [address] [facility] [address] Laboratory Report Ordering Provider Test Date Status VIRGIL BORREGO 06/15/2024 14:40:19 Final Observation Date Value Abnormality Reference (Units ) Status WBC, Total 06/15/2024 14:40:19 11.20 Above high normal 4.00-10.80 (K/uL) Final RBC 06/15/2024 14:40:19 3.55 4.50-5.25 (M/uL) Final Hemoglobin 06/15/2024 14:40:19 10.3 Below low normal 14.0-16.8 (g/dL) Final HCT 06/15/2024 14:40:19 32.9 Below low normal 40.0-48.4 (%) Final MCV 06/15/2024 14:40:19 92.7 82.0-99.5 (fL) Final MCH 06/15/2024 14:40:19 29.0 27.0-34.0 (pg) Final MCHC 06/15/2024 14:40:19 31.3 32.0-36.0 (g/dL) Final RDW 06/15/2024 14:40:19 17.1 11.5-15.5 (%) Final Platelets 06/15/2024 14:40:19 256 140-400 (K/uL) Final MPV 06/15/2024 14:40:19 9.9 6.6-11.1 (fL) Final Nucleated erythrocytes/100 leukocytes [Ratio] in Blood by Automated count 06/15/2024 14:40:19 0 <=0 (/100 WBCs) Final Performing Location [facility] - [facility] [address] [facility] [place] [address]
--- OUTSIDE RECORDS SUMMARY | 2024-07-21 01:58 | External Medical Summary ---
Author Name Unknown Address Unknown Organization [id number]:[place] [facility] [place] [address] [facility] [address] Laboratory Report Ordering Provider Test Date Status SPIKE BRICEÑO 06/15/2024 14:40:19 Final Standing order for pt/inr. < br/>Please draw pt/inr every 1 to 4 weeks as requested
Results to [facility]

Warfarin Therapy
INR: 2.0-3.0 conventional anticoagulation
INR: 2.5-3.5 high intensity anticoagulation Observation Date Value Abnormality Reference (Units ) Status PT 06/15/2024 14:40:19 25.0 Above high normal 11 .6-15.2 (seconds) Final INR 06/15/2024 14:40:19 2.2 Above high normal 0. 8-1.2 Final Performing Location [facility] [place] [address] [facility] [address]
--- OUTSIDE RECORDS SUMMARY | 2024-07-21 01:58 | External Medical Summary ---
Author Name Unknown Address Unknown Organization [id number]:LABORATORY [facility] [place] [address] [facility] [address] Laboratory Report Ordering Provider Test Date Status VIRGIL BORREGO 06/15/2024 14:40:19 Final Observation Date Value Abnormality Reference (Units ) Status SYNC LEUKOCYTES IN BLOOD BY AUTOMATED COUNT 06/15/2024 14:40:19 11.20 Above high normal 4.00-10.80 (K/uL) Final Segs 06/15/2024 14:40:19 80.9 Above high normal 40.0-75.0 (%) Final Lymphs % 06/15/2024 14:40:19 9.2 Below low normal 18.0-42.0 (%) Final Monos 06/15/2024 14:40:19 7.7 1.0-11.0 (%) Final Eosinophils 06/15/2024 14:40:19 1.5 0.0-6.0 (%) Final Basos 06/15/2024 14:40:19 0.4 0.0-2.0 (%) Final Immature Granulocyte, Percent 06/15/2024 14:40:19 0.3 0.0-2.0 (%) Final Absolute Segs 06/15/2024 14:40:19 9.06 Above high normal 1.80-7.70 (K/uL) Final Lymphs, absolute 06/15/2024 14:40:19 1.03 1.00-4.80 (K/ul) Final Monos, Abs 06/15/2024 14:40:19 0.86 0.00-1.10 (K/uL) Final Eos, Abs 06/15/2024 14:40:19 0.17 0.00-0.70 (K/uL) Final Basos, Abs 06/15/2024 14:40:19 0.05 0.00-0.20 (K/uL) Final Immature Granulocytes, Number 06/15/2024 14:40:19 0.03 0.00-0.20 (K/uL) Final Performing Location LABORATORY [facility] [place] - [facility] [address]. [facility] [address]
--- OUTSIDE RECORDS SUMMARY | 2024-07-21 01:58 | External Medical Summary | Summary of Care ---
Author Name Unknown Organization [facility] Address [address] [place] [address] Phone [phone] Care Team Providers Care Terrazzo Helper Name Role Phone Charley Crane MD Primary Care Provider [phone] Reason for Visit * Reason Comments Outpatient Testing Encounter Details Date Type Department Care Team (Late st Contact Info) Description 06/15/2024 3:00 PM EDT Laboratory Laboratory, [place] [address] [place] [phone] [place], Laboratory [address] [place], [place] [phone] Arrived Allergies No known active allergiesdocumented as of [...] 180 Blister Dosing Unit 3 06/01/2024 Active documented as of this encounter (statuses [...] 07/08/2023 Overview: Per Obesity protocol Atherosclerosis of [place] co 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 Jardiance) Remote Patient Monitoring Vendor: [facility] Device(s): Connected Scale Continuous Monitoring Device Self [...] Classes - JULIA Class D - Inhaled Kfekrxupxovlex-UXOF-YWAF Combination Inhaler (Sandro) Remote Patient Monitoring Vendor: [facility] Device(s): Continuous Monitoring Device Traditional Scale Self-Management plan High frequency nebulizer treatments every 4-6 hours around the clock Exacerbation plan Chest Xray Additional Comments: On continuous o2 2-3lpm Bipap at night Atherosclerosis of [place] co 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 pectoris 07/05/2023 [...] on file documented as of this encounter Plan of Treatment Upcoming Encounters Date Type Department Care Team (Late st Contact Info) Description 06/25/2024 7:00 AM EDT Laboratory Lab [facility] [address] [place] [address] [facility] Draw [address] [place] [address] 06/26/2024 6:00 AM EDT Anticoagulation Central[facility], Oscar Peace [address] [place] [address] [place] [address] [place] [address] 07/01/2024 8:50 AM EDT Telemedicine [facility], [facility] 132 [facility] [place] [address] Fabian Gonzalez PA-C [facility] [place] [address] Chacha Kennedy, Community Health Handbag Operator [address] [place] [address] 07/06/2024 11:00 AM EDT Office Visit Orthopaedics [facility] 132 [facility] [place] [address] Cm Dawson DO 132 [facility] [place] [address] 07/09/2024 8:30 AM EDT Home Visit [facility], [facility] 132 [facility] [place] [address] Michelle Kim RN 132 [facility] [place] [address] 07/27/2024 2:15 PM EDT Office Visit Interventional Pain Center, [facility] 132 [facility] [place] [address] Gely Gilmore MD [address] [place] [address] 08/10/2024 12:20 PM EDT Office Visit [place] [address] [place] [phone] Charley Crane MD [address] [place] [address] 09/02/2024 3:00 PM EST Office Visit Sleep Disorders Ctr [facility] 132 [facility] [place] [phone] Audrey Lee DO [address] [place] [address] Health Maintenance Due Date Last Done Comments [...] filedocumented as of this encounter Care Teams Terrazzo Helper Relationship Specialty Start Date End Date Charley Crane MD [address] [facility] [place], [place] [phone] PCP - General Internal Medicine 06/04/23 documented as of this encounter
--- OUTSIDE RECORDS SUMMARY | 2024-07-21 01:58 | External Medical Summary ---
Author Name Unknown Address Unknown Organization K01:[place] [place] [address] [facility] [address] [facility] [address] Laboratory Report Ordering Provider Test Date Status DYLANMIKEVIRGIL 06/15/2024 14:40:19 Final Observation Date Value Abnormality Reference (Units ) Status HbA1C 06/15/2024 14:40:19 6.2 Above high normal 4. 0-5.6 (%) Final The use of HbA1c to monitor glycemic status is based on normal hemoglobin and HbA composition. This test should not be used in patients with abnormal hemoglobin that affects the half life of the red blood cell or the in vivo glycation rates. Glucose, estimated average 06/15/2024 14:40:19 131 Above high normal <126 (mg/dL) Rubén sanders Performing Location [facility] [place] [address] [facility] [facility] [address]
--- OUTSIDE RECORDS SUMMARY | 2024-07-21 01:58 | External Medical Summary ---
Author Name Unknown Address Unknown Organization K01:[facility] [place] [address] [place] [address] Laboratory Report Ordering Provider Test Date Status DYLANMIKEVIRGIL 06/15/2024 14:40:19 Final Exclude Heart Failure: <300 pg/mL
Diagnose Heart Failure:
Age <50 yr: >450 pg/mL
50-75 yr: >900 pg/mL
>75 yr: >1800 pg/mL
GFR is 30-59 mL/min: >1200 pg/mL or Age- adjusted values
GFR <30 mL/min: do not use, not reliable

Prognostic threshold: 1000 pg/mL Observation Date Value Abnormality Reference (Units ) Status BNP, Pro-hormone 06/15/2024 14:40:19 1181 Above high no rmal <300 (pg/mL) Final Performing Location LABORATORY [facility] [place] - [address] [place] [address]
--- OUTSIDE RECORDS SUMMARY | 2024-07-21 01:59 | External Medical Summary ---
Author Name Unknown Address Unknown Organization K0G:LABORATORY [place] [address] - [address] [place] [address] Laboratory Report Ordering Provider Test Date Status NAVARROSANCHORADU 06/11/2024 07:25:00 Final Standing order for pt/inr. < br/>Please draw pt/inr every 1 to 4 weeks as requested
Results to [facility] Anticoagulation [facility]

Warfarin Therapy
INR: 2.0-3.0 conventional anticoagulation
INR: 2.5-3.5 high intensity anticoagulation Observation Date Value Abnormality Reference (Units ) Status PT 06/11/2024 07:25:00 27.5 Above high normal 11 .6-15.2 (seconds) Final INR 06/11/2024 07:25:00 2.5 Above high normal 0. 8-1.2 Final Performing Location LABORATORY [facility] [place] [address] - [address] [place] [address]
--- OUTSIDE RECORDS SUMMARY | 2024-07-21 01:59 | External Medical Summary | Summary of Care ---
Author Name Unknown Organization [facility] Address [address] [facility] [place] [address] Phone [phone] Care Team Providers Care Automotive Mechanical Engineer Name Role Phone Charley Crane MD Primary Care Provider [phone] Reason for Visit * Reason Onset Date Comments [facility]: Maintenance 06/03/2024 Encounter Details Date Type Department Care Team (Late st Contact Info) Description 06/03/2024 Telephone [facility], [facility] [address] [facility] [place] [address] Michelle Kim, RN [address] [facility] [place] [place] [address] [facility]: Maintenance Allergies No known active allergiesdocumented as of this encounter (statuses as of 06/11/2024) Medications Medication Sig Dispensed Refills Start Date [...] evening meals. 180 Tablet 3 04/28/2024 Active Ipratropium-Albute rol 0.5-2.5 (3) MG/3ML Inhalation [...] other day. 45 Capsule 1 05/22/2024 Active Additional Information Patient not taking.Reported on 06/03/2024 Pantoprazole Sodium 40 MG Oral Tablet Delayed Release (Protonix) TAKE 1 TABLET BY MOUTH EVERY MORNING 90 Tablet 1 05/25/2024 Active Trelegy Ellipta 100-62.5-25 MCG/ACT Aerosol Powder Breath Activated (Fluticasone-Umecl idinium-Vilanterol ) Inhale 1 Puff by mouth in the morning. 180 Blister Dosing Unit 3 06/01/2024 Active documented as of this encounter (statuses as of 06/11/2024) Active Problems Problem Noted Date Diagnosed Date [...] 07/08/2023 Overview: Per Obesity protocol Atherosclerosis of [place] co 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 pectoris 07/05/2023 [...] as of this encounter (statuses as of 06/11/2024) Resolved Problems Problem Noted Date Diagnosed Date [...] Classes - JULIA Class D - Inhaled Kwxpzrcoidnhdz-YBDF-EVUZ Combination Inhaler (Trellegy) Remote Patient Monitoring Vendor: [facility] Device(s): Continuous Monitoring Device Traditional Scale Self-Management plan High frequency nebulizer treatments every 4-6 hours around the clock Exacerbation plan Chest Xray Additional Comments: On continuous o2 2-3lpm Bipap at night Atherosclerosis of [place] co 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 pectoris 07/05/2023 08/29/2023 Dyspnea 07/04/2023 08/13/2023 Occupational exposure in workplace 07/04/2023 02/14/2024 Chronic congestive heart failure 06/08/2023 07/05/2023 COPD, severe 06/08/2023 07/11/2023 Overview: Per COPD GOLD Classification Chronic hypoxemic respiratory failure 06/08/2023 07/04/2023 Chronic respiratory failure with hypoxia, on home oxygen therapy 06/08/2023 08/29/2023 Diabetes mellitus without complication 06/08/2023 08/29/2023 documented as of this encounter (statuses as of 06/11/2024) Immunizations Name Administration Dates Next Due Pneumococcal [...] encounter Miscellaneous Notes * Telephone Encounter - Michelle Kim RN - 06/03/2024 1:49 PM EDT Michael, Can we please get a visit with Fabian Gonzalez PA-C scheduled for a JOHN visit? Can be in person or telemed. Please schedule within the next 3 weeks. Thank you! documented in this encounter Plan of Treatment Upcoming Encounters Date Type Department Care Team (Late st Contact Info) Description 06/12/2024 6:00 AM EDT Anticoagulation Centralized Clinical Pharmacy Services, Oscar Peace [address] [place] [address] [place] [address] [facility], [address] [place] [address] 07/01/2024 8:50 AM EDT Telemedicine [facility], [facility] [address] [place] [address] Fabian Gonzalez PA-C [address] [place] [address] Chacha Kennedy, Community Health Immunology Teacher [address] [place] [address] 07/06/2024 11:00 AM EDT Office Visit Orthopaedics [facility] [address] [place] [address] Cm Dawson DO 132 [place] [address] 07/09/2024 8:30 AM EDT Home Visit [facility], [facility] 132 [place] [address] Michelle Kim, RN [address] [place] [address] 07/27/2024 2:15 PM EDT Office Visit Interventional Pain Center, [facility] [address] [place] [address] Gely Gilmore MD [address] [place] [address] [place] [address] 08/10/2024 12:20 PM EDT Office Visit [facility] [place] [address] [facility] [phone] Charley Crane MD [address] [place] [facility] [place] [address] 09/02/2024 3:00 PM EST Office Visit Sleep Disorders Ctr [facility] [address] [place] [phone] Audrey Lee DO [address] [place] [address] Health Maintenance Due Date Last Done Comments [...] filedocumented as of this encounter Care Teams Automotive Mechanical Engineer Relationship Specialty Start Date End Date Charley Crane MD [address] [place] [address] PCP - General Internal Medicine 06/04/23 documented as of this encounter
--- OUTSIDE RECORDS SUMMARY | 2024-07-21 01:59 | External Medical Summary | Summary of Care ---
Author Name Unknown Organization [facility] Address [address] [facility] [address] Phone [phone] Care Team Providers Care Costume Design Teacher Name Role Phone Charley Crane MD Primary Care Provider [phone] Reason for Visit * Reason Onset Date Comments Protime Testing 06/10/2024 Encounter Details Date Type Department Care Team (Late st Contact Info) Description 06/10/2024 Telephone Centralized Clinical Pharmacy Services, Oscar Peace [address] [place] [address] [place] [address] Isabel Li, [facility] [address] [place] [address] Protime Testing (/) Allergies No known active allergiesdocumented as of this encounter (statuses as of 06/10/2024) Medications Medication Sig Dispensed Refills Start Date [...] as of this encounter (statuses as of 06/10/2024) Active Problems Problem Noted Date Diagnosed Date [...] 07/08/2023 Overview: Per Obesity protocol Atherosclerosis of [place] co 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 Jardiance) Remote Patient Monitoring Vendor: [facility] Device(s): Connected Scale Continuous Monitoring Device Self [...] as of this encounter (statuses as of 06/10/2024) Resolved Problems Problem Noted Date Diagnosed Date [...] Classes - JULIA Class D - Inhaled Lmrckfelhknlmm-LXNN-JNRX Combination Inhaler (Sandro) Remote Patient Monitoring Vendor: [facility] Device(s): Continuous Monitoring Device Traditional Scale Self-Management plan High frequency nebulizer treatments every 4-6 hours around the clock Exacerbation plan Chest Xray Additional Comments: On continuous o2 2-3lpm Bipap at night Atherosclerosis of [place] co 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 pectoris 07/05/2023 08/29/2023 Dyspnea 07/04/2023 08/13/2023 Occupational exposure in workplace 07/04/2023 02/14/2024 Chronic congestive heart failure 06/08/2023 07/05/2023 COPD, severe 06/08/2023 07/11/2023 Overview: Per COPD GOLD Classification Chronic hypoxemic respiratory failure 06/08/2023 07/04/2023 Chronic respiratory failure with hypoxia, on home oxygen therapy 06/08/2023 08/29/2023 Diabetes mellitus without complication 06/08/2023 08/29/2023 documented as of this encounter (statuses as of 06/10/2024) Immunizations Name Administration Dates Next Due Pneumococcal [...] Miscellaneous Notes * Telephone Encounter - Isabel Li RPh - 06/10/2024 3:01 PM EDT Pt/INR order signed Isabel Li Rph, Pharm.D. Clinical Pharmacist [facility]ized [facility] ([facility]) [phone] 06/10/2024,3:02 PM documented in this encounter Plan of Treatment Upcoming Encounters Date Type Department Care Team (Late st Contact Info) Description 06/11/2024 7:00 AM EDT Laboratory Lab [facility] [address] [facility] [place] [address] [facility] Home Draw [address] [facility] [place] [address] 06/12/2024 6:00 AM EDT Anticoagulation Centralized Clinical Pharmacy Services, Oscar Peace [address] [place] [address] [place] [address] [facility], [address] [place] [address] 07/01/2024 8:50 AM EDT [facility]icine [facility], [facility] [address] [place] [address] Fabian Gonzalez PA-C [address] [place] [address] Chacha Kennedy, Community Health High School Math Teacher [facility] [place] [address] 07/06/2024 11:00 AM EDT Office Visit Orthopaedics [facility] [address] [place] [address] Cm Dawson DO 132 [place] [address] 07/09/2024 8:30 AM EDT [facility] Visit [facility], [facility] [address] [place] [address] Michelle Kim, RN [address] [place] [address] 07/27/2024 2:15 PM EDT Office Visit Inter[facility] Center, [facility] [place] [address] Gely Gilmore MD [address] [place] [address] 08/10/2024 12:20 PM EDT [facility] [address] [facility] [phone] Charley Crane MD [address] [facility] [address] 09/02/2024 3:00 PM EST Office Visit [facility] C[facility] [place] [phone] Audrey Lee DO 132 [facility] [place] [address] Scheduled Orders Name Type Priority Associated Diagnoses Orde r Schedule PT INR Lab Routine intermediate project manager current use of anticoagulant therapy Other, Please specify in Comments field for 26 Occurrences starting 06/10/2024 until 06/10/2025 Health Maintenance Due Date Last Done Comments [...] as of this encounter Visit Diagnoses Diagnosis intermediate project manager current use of anticoagulant therapy- Primary documented in this encounter Care Teams Costume Design Teacher Relationship Specialty Start Date End Date Charley Crane MD [address] [place] [address] PCP - General Internal Medicine 06/04/23 documented as of this encounter
--- OUTSIDE RECORDS SUMMARY | 2024-07-21 01:59 | External Medical Summary | Summary of Care ---
Author Name Unknown Organization [facility] Address [address] [place] [address] Phone [phone] Care Team Providers Care Senior Interactive Developer Name Role Phone Charley Crane MD Primary Care Provider [phone] Reason for Visit * Reason Comments Follow Up 3rd inj euflexxa AMBER * Precert (Within 30 days (routine)) - Authorized Specialty Diagnoses / Procedures Referred By Karlie t Referred To Contact Orthopedics Diagnoses Bilateral primary osteoarthritis of knee Procedures [place] GEL-SYN INJECTION 0.1 MG Steffanie Alfaro PA-C [address] [place] [phone] Steffanie Alfaro PA-C [address] [place] [address] Referral ID Status Reason Start Date Expiration Date V isits Requested Visits Authorized [id number] Authorized Precert 04/08/2024 10/27/2099 [id number] Encounter Details Date Type Department Care Team (Latest Contact Info) Description 06/09/2024 1:00 PM EDT Office Visit Orthopaedics [facility] [address] [place] [address] Steffanie Alfaro PA-C [address] [place] [phone] Primary osteoarthritis of both knees* Allergies No known active allergiesdocumented as of this encounter (statuses as of 06/09/2024) Medications Medication Sig Dispensed Refills Start Date [...] 180 Blister Dosing Unit 3 06/01/2024 Active Hospital, Clinic, or Other Facility Administered Medication Ordered Dose Route Frequency Start Date End Date Status Sodium Hyaluronate (Viscosup) (Euflexxa/Hyalgan) 20 MG/2ML inj 20 mgIndications:Primary osteoarthritis of both knees 20 mg IX ONCE 06/09/2024 06/09/2024 Ended Sodium Hyaluronate (Viscosup) (Euflexxa/Hyalgan) 20 MG/2ML inj 20 mgIndications:Primary osteoarthritis of both knees 20 mg IX ONCE 06/09/2024 06/09/2024 Ended documented as of this encounter (statuses as of 06/09/2024) Active Problems Problem Noted Date Diagnosed Date COPD, group D, by GOLD 2017 classification 11/04 Overview: Per COPD GOLD Classification [facility] current use of anticoagulant therapy 0 2023 Longstanding persistent atrial fibrillation 06/29 Hypertension goal BP (blood pressure) < 130/80 0 07/17/2023 Dyslipidemia, goal LDL below 70 07/17/2023 Body mass index (BMI) of 40.0 to 44.9 in adult 0 07/08/2023 Overview: Per Obesity protocol Atherosclerosis of k[place] de[place] co 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 Jardiance) Remote Patient Monitoring Vendor: [facility] Device(s): Connected Scale Continuous Monitoring Device Self [...] as of this encounter (statuses as of 06/09/2024) Resolved Problems Problem Noted Date Diagnosed Date [...] Classes - JULIA Class D - Inhaled Rnonggzbvyrpfa-UJTT-JJLS Combination Inhaler (Sandro) Remote Patient Monitoring Vendor: [facility] Device(s): Continuous Monitoring Device Traditional Scale Self-Management plan High frequency nebulizer treatments every 4-6 hours around the clock Exacerbation plan Chest Xray Additional Comments: On continuous o2 2-3lpm Bipap at night Atherosclerosis of kletsel de[place] co 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 pectoris 07/05/2023 08/29/2023 Dyspnea 07/04/2023 08/13/2023 Occupational exposure in workplace 07/04/2023 02/14/2024 Chronic congestive heart failure 06/08/2023 07/05/2023 COPD, severe 06/08/2023 07/11/2023 Overview: Per COPD GOLD Classification Chronic hypoxemic respiratory failure 06/08/2023 07/04/2023 Chronic respiratory failure with hypoxia, on home oxygen therapy 06/08/2023 08/29/2023 Diabetes mellitus without complication 06/08/2023 08/29/2023 documented as of this encounter (statuses as of 06/09/2024) Immunizations Name Administration Dates Next Due Pneumococcal [...] as of this encounter Progress Notes * Jere Vela DO - 06/09/2024 3:57 PM EDT I have reviewed the advanced practitioner's documentation on the date of service referenced in note, and I agree with, and take responsibility for the plan of care. * Steffanie Alfaro PA-C - 06/09/2024 2:00 PM EDT Bala Coronado Jr. [id number] 06/02/2024 Here today for 3rd injection of Euflexxa for the right and left knee. Patient has noticed subtle improvements with injection 1 and 2. They are pleased with results thus far. No questions concerns complaints otherwise today. Examination unchanged from previous office note and visit please see for further details and findings Assessment: bilateral knee osteoarthritis Plan: Today 's findings were discussed with the patient. We will follow up in 3 months for potential steroid injections. Call sooner if needed. Satisfied with today's care. Procedure Note: bilateral knee injections Time out: Prior to injection, a time out was called to confirm the administration of appropriate medicine, patient name, procedure and confirm to the best of our ability and knowledge the presence of any necessary risks and benefits. Patient verbalizes understanding. Consent obtained. Sterile techinique applied. Skin sterilized with alcohol swab and chlorhexidine. The right and leftknee was injected using 1.5 inch, 22 gauge needle. Injected with euflexxa. Skin cleansed with alcohol and Band-Aid placed. Patient tolerated procedure with no significant bleeding or adverse reaction. Patient instructed to call or return to clinic for fever or warmth and redness at injection site for potential infection. Patient also advised as to potential for increased pain and redness at injection site which should be treated with ice and resolve within 24 hours. Steffanie Alfaro PA-C Orthopaedics [facility] [address] [facility] [place] [address] Orthopedic Sports Medicine Surgery 06/09/2024 This chart was completed in part utilizing [employer] Speech Voice Recognition Software. Grammatical errors, random word insertions, pronoun errors, and incomplete sentences are an occasional consequence of this system due to software limitations, ambient noise, and hardware issues. Any formal questions or concerns about the content, text, or information contained within the body of this dictation should be directly addressed to the provider for clarification. documented in this encounter Nursing Notes * Aracely Garay CMA - 06/09/2024 1:53 PM EDT 3rd inj euflexxa AMBER documented in this encounter Plan of Treatment Upcoming Encounters Date Type Department Care Team (Late st Contact Info) Description 06/11/2024 7:00 AM EDT Laboratory Lab Mobile Phlebotomy [facility] [address] [place] [address] [facility], Gml Mobile Home Draw [address] [place] [address] 06/12/2024 6:00 AM EDT Anticoagulation [facility], Oscar Peace [address] [place] [address] [place] [address] [place] [address] 07/01/2024 8:50 AM EDT Telemedicine [facility], [facility] [address] [facility] [place] [address] Fabian Gonzalez PA-C [address] [place] [address] Chacha Kennedy, Community Health Carburetor Expert [address] [place] [address] 07/06/2024 11:00 AM EDT Office Visit Orthopaedics [facility] [address] [facility] [place] [address] mC Dawson DO [address] [facility] [place] [address] 07/09/2024 8:30 AM EDT Home Visit [facility], [facility] [address] [facility] [place] [address] Michelle Kim RN [facility] [place] [address] 07/27/2024 2:15 PM EDT Office Visit Interventional Pain Center, [facility] [address] [facility] [place] [address] Gely Gilmore MD [address] [place] [address] [place] [address] 08/10/2024 12:20 PM EDT Office Visit Family [address] [place] [phone] Charley Crane MD [address] [place] [address] 09/02/2024 3:00 PM EST Office Visit Sleep Disorders Ctr [facility] [address] [place] [phone] Audrey Lee, [address] [place] [address] Health Maintenance Due Date Last Done Comments [...] as of this encounter Visit Diagnoses Diagnosis Primary osteoarthritis of both knees- Primary Primary localized osteoarthrosis, lower leg documented in this encounter Administered Medications Inactive Administered Medications - up to 3 most recent administrations Medication Order MAR Action Action Date Dose Rate Site Sodium Hyaluronate (Viscosup) (Euflexxa/Hyalgan) 20 MG/2ML inj 20 mg 20 mg, Intra-Articular, ONCE, On Sat06/09/24 at 1445, For 1 dose Given 06/09/2024 2:21 PM EDT 20 mg Knee Right Sodium Hyaluronate (Viscosup) (Euflexxa/Hyalgan) 20 MG/2ML inj 20 mg 20 mg, Intra-Articular, ONCE, On Sat06/09/24 at 1445, For 1 dose Given 06/09/2024 2:21 PM EDT 20 mg Knee Left documented in this encounter Care Teams Senior Interactive Developer Relationship Specialty Start Date End Date Charley Crane MD [address] [place] [address] PCP - General Internal Medicine 06/04/23 documented as of this encounter
--- OUTSIDE RECORDS SUMMARY | 2024-07-21 01:59 | External Medical Summary | Summary of Care ---
Author Name Unknown Organization [facility] Address 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 Jardiance) Remote Patient Monitoring Vendor: [facility] Device(s): Connected Scale [...] as of this encounter (statuses as of 06/12/2024) Resolved Problems Problem Noted Date Diagnosed Date [...] Classes - JULIA Class D - Inhaled Lwbwqucfxdokgf-BNLK-IHZF Combination Inhaler (Trellegy) Remote Patient Monitoring Vendor: [facility] Device(s): Continuous Monitoring Device Traditional Scale Self-Management plan High frequency nebulizer treatments every 4-6 hours around the clock Exacerbation plan Chest Xray Additional Comments: On continuous o2 2-3lpm Bipap at night Atherosclerosis of atka co 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 pectoris 07/05/2023 08/29/2023 Dyspnea 07/04/2023 08/13/2023 Occupational exposure in workplace 07/04/2023 02/14/2024 Chronic congestive heart failure 06/08/2023 07/05/2023 COPD, severe 06/08/2023 07/11/2023 Overview: Per COPD GOLD Classification Chronic hypoxemic respiratory failure 06/08/2023 07/04/2023 Chronic respiratory failure with hypoxia, on home oxygen therapy 06/08/2023 08/29/2023 Diabetes mellitus without complication 06/08/2023 08/29/2023 documented as of this encounter (statuses as of 06/12/2024) Immunizations Name Administration Dates Next Due Pneumococcal [...] this encounter Progress Notes * Fred Joy, business area director - 06/12/2024 9:16 AM EDT Contacts Type Contact Phone/Fax 06/12/2024 09:14 AM EDT Phone (Outgoing) Bala Coronado Jr. (Self) [phone] (M) Subjective Patient Findings Negatives: Signs/symptoms of [...] as noted by Pharmacist: Yes AMANDO Puentes Tech 06/12/2024, 9:16 AM * Isabel Li RPh - 06/12/2024 8:14 AM EDT Coumadin Clinic (region specific) Objective Current Warfarin Dose As of 06/12/2024 Warfarin maintenance plan: 10 mg (10 mg x 1) every Mon, Wed, Fri; 15 mg (10 mg x 1.5) all other days INR Result As of 06/12/2024 INR goal: 2.0-3.0 INR used for dosin.5 (06/11/2024) Assessment & Plan Warfarin Plan As of 06/12/2024 Full warfarin instructions: 10 mg every Mon, Wed, Fri; 15 mg all other days No change documented: Isabel Li RPh Next INR check: 06/25/2024 Repeat PT/INR in 2 week(s) Weekly dose: not changed Additional Dosing Information: Description [facility] Warfarin NOT included Tech to contact patient with dose instructions as noted. Isabel Li RPh 06/12/2024, 8:14 AM documented in this encounter Plan of Treatment Upcoming Encounters Date Type Department Care Team (Late st Contact Info) Description 06/15/2024 2:00 PM EDT Office Visit [place] [address] [facility] [place] [phone] Charley Crane MD [address] [facility] [place] [address] 06/25/2024 7:00 AM EDT Laboratory Lab Mobile Phlebotomy [facility] [address] [facility] [address] [facility], [facility] Mobile [facility] Draw [address] [facility] [address] 06/26/2024 6:00 AM EDT Anticoagulation Central[facility] Clinical Pharmacy Services, Oscar Peace [address] [place] [address] [place] [address] [facility], [address] [place] [address] 07/01/2024 8:50 AM EDT Telemedicine [facility] [place], [facility] [address] [place] [address] Fabian Gonzalez PA-C [address] [place] [address] Chacha Kennedy, Community Health Doctor Assistant [address] [place] [address] 07/06/2024 11:00 AM EDT Office Visit Orthopaedics [facility] [address] [place] [address] Cm Dawson, DO [address] [place] [address] 07/09/2024 8:30 AM EDT Home Visit [facility], [facility] [address] [place] [address] Michelle Kim, RN [address] [place] [address] 07/27/2024 2:15 PM EDT Office Visit Interventional Pain Center, [facility] [place] [address] Gely Gilmore MD [address] [place] [address] 08/10/2024 12:20 PM EDT Office Visit [facility] [address] [place] [phone] Charley Crane MD [address] [place], [place] [phone] 09/02/2024 3:00 PM EST Office Visit [facility] Disorders Ctr [facility] 132 [facility] [place] [phone] Audrey Lee DO 132 [facility] [place] [address] Health Maintenance Due Date Last Done Comments [...] as of this encounter Visit 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
--- OUTSIDE RECORDS SUMMARY | 2024-07-21 01:59 | External Medical Summary | Summary of Care ---
Author Name Unknown Organization [facility] Address [address] [place] [address] Phone [phone] Care Team Providers Care Sound Recordist Name Role Phone Charley Crane MD Primary Care Provider [phone] Reason for Visit * Reason Comments Follow Up 3rd inj euflexxa AMBER * Precert (Within 30 days (routine)) - Authorized Specialty Diagnoses / Procedures Referred By Karlie t Referred To Contact Orthopedics Diagnoses Bilateral primary osteoarthritis of knee Procedures [place] GEL-SYN INJECTION 0.1 MG Steffanie Alfaro PA-C [address] [place] [address] Steffanie Alfaro PA-C [address] [place] [address] Referral ID Status Reason Start Date Expiration Date V isits Requested Visits Authorized [id number] Authorized Precert 04/08/2024 10/27/[phone] Encounter Details Date Type Department Care Team (Latest Contact Info) Description 06/09/2024 1:00 PM EDT Office Visit Orthopaedics [facility] [address] [place] [address] Steffanie Alfaro PA-C [address] [place] [address] Primary osteoarthritis of both knees* Allergies No [...] classification 11/04 Overview: Per COPD GOLD Classification snf current use of anticoagulant therapy 0 2023 Longstanding persistent atrial fibrillation 06/29 Hypertension goal BP (blood pressure) < 130/80 0 07/17/2023 Dyslipidemia, goal LDL below 70 07/17/2023 Body mass index (BMI) of 40.0 to 44.9 in adult 0 07/08/2023 Overview: Per Obesity protocol Atherosclerosis of nikolai [...] empagliflozin (ex. Jardiance) Remote Patient Monitoring Vendor: [facility] Device(s): Connected Scale Continuous Monitoring Device [...] Classes - JULIA Class D - Inhaled Ytrdgvapnkarub-ONWD-JTII Combination Inhaler (Sandro) Remote Patient Monitoring Vendor: [facility] Device(s): Continuous Monitoring Device Traditional Scale Self-Management plan High frequency nebulizer treatments every 4-6 hours around the clock Exacerbation plan Chest Xray Additional Comments: On continuous o2 2-3lpm Bipap at night Atherosclerosis of nikolai co ronary artery without [...] as of this encounter Progress Notes * Steffanie Alfaro PA-C - 06/09/2024 2:00 PM EDT Bala Coronado Jr. [id number] 06/02/2024 Here today for 3rd injection of [...] within 24 hours. Steffanie Alfaro PA-C Orthopaedics [facility] 132 [facility] [place] [address] Orthopedic Sports Medicine Surgery 06/09/2024 This chart was completed in part utilizing [employer] Speech Voice Recognition Software. Grammatical errors, random [...] EDT Laboratory Lab Mobile Phlebotomy [facility] [facility] [address] [facility], Gml Mobile Home Draw [facility] [facility] [address] 06/12/2024 6:00 AM EDT Anticoagulation Centralized Clinical Pharmacy Services, Oscar Peace [address] [place] [address] [place] [address] [facility], [address] [place] [address] 07/01/2024 8:50 AM EDT Telemedicine [facility] [place], [facility] [address] [facility] [place] [address] Fabian Gonzalez PA-C 132 [facility] [place] [address] Chacha Kennedy, Community Health Copra Sampler [address] [place] [address] 07/06/2024 11:00 AM EDT Office Visit Orthopaedics [facility] 132 [facility] [place] [address] Cm Dawson, DO [address] [place] [address] 07/09/2024 8:30 AM EDT Home Visit [facility], [facility] [address] [place] [address] Michelle Kim RN [address] [place] [address] 07/27/2024 2:15 PM EDT Office Visit Interventional Pain Center, [facility] [address] [facility] [place] [address] Gely Gilmore MD [address] [place] [address] [place] [address] 08/10/2024 12:20 PM EDT Office Visit Family [place] [address] [place] [phone] Charley Crane MD [address] [place] [address] 09/02/2024 3:00 PM EST Office Visit [facility] Disorders Ctr [facility] [address] [facility] [place] [phone] Audrey Lee, DO [address] [place] [address] Health Maintenance Due Date Last Done Comments Alpha-1 Antitrypsin 1974 Hepatitis C Screening 1974 DTaP,Tdap,and Td Vaccines (1 - Tdap) 1975 Cologuard 2001 Colonoscopy 2001 Colorectal Cancer Screening 2001 Fecal Occult Blood Test 2001 Sigmoidoscopy 2001 AAA Screening 2021 COVID-19 Vaccine (1 - 2022- season) 2023 Diabetic Foot Exam 06/21/2024 06/21/2023 [...] Left documented in this encounter Care Teams Sound Recordist Relationship Specialty Start Date End Date Charley Crane MD [address] [place] [address] PCP - General Internal Medicine 06/04/23 documented as of this encounter
--- OUTSIDE RECORDS SUMMARY | 2024-07-21 01:59 | External Medical Summary | Summary of Care ---
Author Name Unknown Organization [facility] Address [address] [place] [address] Phone [phone] Care Team Providers Care Engineering Production Worker Name Role Phone Charley Crane MD Primary Care Provider Reason for Visit * Reason Comments Follow Up 3rd inj euflexxa AMBER * Precert (Within 30 days (routine)) - Authorized Specialty Diagnoses / Procedures Referred By Karlie t Referred To Contact Orthopedics Diagnoses Bilateral primary osteoarthritis of knee Procedures [place] GEL-SYN INJECTION 0.1 MG Steffanie Alfaro PA-C [address] [place] [address] Steffanie Alfaro PA-C [address] [place] [address] Referral ID Status Reason Start Date Expiration Date V isits Requested Visits Authorized [id number] Authorized Precert 04/08/2024 10/27/[phone] Encounter Details Date Type Department Care Team (Latest Contact Info) Description 06/09/2024 1:00 PM EDT Office Visit Orthopaedics [facility] [address] [place] [address] Steffanie Alfaro PA-C [address] [place] [address] Primary osteoarthritis of both knees* Allergies No [...] classification 11/04 Overview: Per COPD GOLD Classification nursing home current use of anticoagulant therapy 0 2023 Longstanding persistent atrial fibrillation 06/29 Hypertension goal BP (blood pressure) < 130/80 0 07/17/2023 Dyslipidemia, goal LDL below 70 07/17/2023 Body mass index (BMI) of 40.0 to 44.9 in adult 0 07/08/2023 Overview: Per Obesity protocol Atherosclerosis of [place] co 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 pectoris 07/05/2023 [...] Classes - JULIA Class D - Inhaled Mwrpmmpnbdpuwl-EHZN-BNRL Combination Inhaler (Sandro) Remote Patient Monitoring Vendor: [facility] Device(s): Continuous Monitoring Device Traditional Scale Self-Management plan High frequency nebulizer treatments every 4-6 hours around the clock Exacerbation plan Chest Xray Additional Comments: On continuous o2 2-3lpm Bipap at night Atherosclerosis of [place]rokee co 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 pectoris 07/05/2023 [...] 06/09/2024 2:00 PM EDT Bala Coronado Jr. [id number] 06/02/2024 Here today for 3rd injection of [...] within 24 hours. Steffanie Alfaro PA-C Orthopaedics [facility] 132 [facility] [place] [address] Orthopedic Sports Medicine Surgery 06/09/2024 This chart was completed in part utilizing [employer] Speech Voice Recognition Software. Grammatical errors, random [...] EDT Laboratory Lab Mobile [facility]lebotomy [facility] [facility] [address] [facility] Mobile [facility] Draw [facility] [facility] [address] 06/12/2024 6:00 AM EDT Anticoagulation Centralized Clinical Pharmacy Services, Oscar Peace [address] [place] [address] [place] [address] [facility], [address] [place] [address] 07/01/2024 8:50 AM EDT Tele[facility]icine [facility] [place], [facility] 132 [facility] [place] [address] Fabian Gonzalez PA-C 132 [facility] [place] [address] Chacha Kennedy, Community Health Continuous Improvement Manager [address] [place] [address] 07/06/2024 11:00 AM EDT Office Visit Orthopaedics [facility] 132 [facility] [place] [address] Cm Dawson, DO [address] [place] [address] 07/09/2024 8:30 AM EDT [facility] Visit [facility], [facility] [address] [place] [address] Michelle Kim RN [address] [place] [address] 07/27/2024 2:15 PM EDT Office Visit Interventional Pain Center, [facility] 132 [facility] [place] [address] Gely Gilmore MD [address] [place] [address] [place] [address] 08/10/2024 12:20 PM EDT Office Visit Family [place] [address] [place] [phone] Charley Crane MD [address] [place] [address] 09/02/2024 3:00 PM EST Office Visit Sleep Disorders Ctr [facility] 132 [facility] [place] [phone] Audrey Lee, DO [address] [place] [address] Health Maintenance Due Date Last Done Comments [...] Left documented in this encounter Care Teams Engineering Production Worker Relationship Specialty Start Date End Date Charley Crane MD [address] [place] [address] PCP - General Internal Medicine 06/04/23 documented as of this encounter
--- OUTSIDE RECORDS SUMMARY | 2024-07-21 02:00 | External Medical Summary | Summary of Care ---
Author Name Unknown Organization [facility] Address [address] [facility] [facility] [address] Phone [phone] Care Team Providers Care Coding And Reimbursement Specialist Name Role Phone Charley Crane MD Primary Care Provider [phone] Reason for Visit * Reason Comments Dosage Adjustment Via Phone (anticoag Cl inic) Encounter Details Date Type Department Care Team (Late st Contact Info) Description 06/04/2024 6:00 PM EDT Anticoagulation Centralized Clinical Pharm[facility] Services, Oscar Peace [address] [place] [address] [place] [address] [facility], [address] [place] [address] terminal worker current use of anticoagulant therapy*; Longstanding persistent atrial fibrillation (HCC); History of deep venous thrombosis (DVT) of distal vein of left lower extremity Allergies No known active allergiesdocumented as of this encounter (statuses as of 06/04/2024) Medications Medication Sig Dispensed Refills Start Date [...] as of this encounter (statuses as of 06/04/2024) Active Problems Problem Noted Date Diagnosed Date [...] 07/08/2023 Overview: Per Obesity protocol Atherosclerosis of [place] co 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 pectoris [...] as of this encounter (statuses as of 06/04/2024) Resolved Problems Problem Noted Date Diagnosed Date [...] Classes - JULIA Class D - Inhaled Cvxebxorayegwz-VKZV-CBRE Combination Inhaler (Trellegy) Remote Patient Monitoring Vendor: Current Health Device(s): Continuous Monitoring Device Traditional Scale Self-Management plan High frequency nebulizer treatments every 4-6 hours around the clock Exacerbation plan Chest Xray Additional Comments: On continuous o2 2-3lpm Bipap at night Atherosclerosis of [place] co 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 pectoris [...] as of this encounter (statuses as of 06/04/2024) Immunizations Name Administration Dates Next Due Pneumococcal [...] Progress Notes * Nandini Evans CPhT - 06/04/2024 3:31 PM EDT Contacts Type Contact Phone/Fax 06/04/2024 03:26 PM EDT Phone (Outgoing) Cliff Bala (Self) [phone] (M) Left Message Subjective Patient Findings Negatives: Signs/symptoms of bleeding, [...] noted by Pharmacist: Yes Nandini Evans CPhT 06/04/2024, 3:31 PM * Isabel Li RPh - 06/04/2024 3:17 PM EDT Coumadin Clinic (region specific) Objective Current Warfarin Dose As of 06/04/2024 Warfarin maintenance plan: 10 mg (10 mg x 1) every Mon, Wed, Fri; 15 mg (10 mg x 1.5) all other days INR Result As of 06/04/2024 INR goal: 2.0-3.0 INR used for dosin.3 (06/04/2024) Assessment & Plan Warfarin Plan As of 06/04/2024 Full warfarin instructions: 10 mg every Mon, Wed, Fri; 15 mg all other days No change documented: Isabel Li RPh Next INR check: 06/11/2024 Repeat PT/INR in 1 week(s) Weekly dose: not changed Additional Dosing Information: Description [facility] Pill packs from [facility] - Warfarin NOT included Tech to contact patient with dose instructions as noted. Isabel Li RPh 06/04/2024, 3:17 PM documented in this encounter Plan of Treatment Upcoming Encounters Date Type Department Care Team (Late st Contact Info) Description 06/09/2024 1:00 PM EDT Office Visit Orthopaed[facility] [address] [place] [address] Steffanie Alfaro PA-C 132 [place] [address] 06/12/2024 6:00 AM EDT Anticoagulation Centralized Clinical Pharmacy Services, Osacr Peace [address] [place] [address] [place] [address] [facility], [address] [place] [address] 07/01/2024 8:50 AM EDT [facility]icine [facility] 132 [place] [address] Fabian Gonzalez PA-C 132 [place] [address] Chacha Kennedy, Community Health Quality Assurance Clerk [address] [place] [address] 07/06/2024 11:00 AM EDT Office Visit Orthopaedics [facility] [address] [place] [address] Cm Dawson DO 132 [place] [address] 07/09/2024 8:30 AM EDT Home Visit [facility], [facility] [address] [place] [address] Michelle Kim, RN [address] [place] [address] 07/27/2024 2:15 PM EDT Office Visit [facility], [facility] [address] [place] [address] Gely Gilmore MD [address] [place], [place] [address] [address] 08/10/2024 12:20 PM EDT [facility] Visit [facility] [address] [facility] [phone] Charley Crane MD [address] [facility] [address] 09/02/2024 3:00 PM EST Office Visit Sleep Disorders Ctr [facility] [address] [place] [phone] Audrey Lee DO [address] [place] [address] Health Maintenance Due Date Last Done Comments [...] as of this encounter Visit Diagnoses Diagnosis FDC current use of anticoagulant therapy- Primary Longstanding persistent atrial fibrillation (HCC) History of deep venous thrombosis (DVT) of distal vein of left lower extremity documented in this encounter Care Teams Coding And Reimbursement Specialist Relationship Specialty Start Date End Date Charley Crane MD [address] [place] [address] PCP - General Internal Medicine 06/04/23 documented as of this encounter
--- OUTSIDE RECORDS SUMMARY | 2024-07-21 02:00 | External Medical Summary ---
Author Name Unknown Address Unknown Organization [facility] [address] [place] [address] Laboratory Report Ordering Provider Test Date Status VIRGIL BORREGO 06/04/2024 10:00:00 Final Warfarin Therapy
INR: 2 .0-3.0 conventional anticoagulation
INR: 2.5- 3.5 high intensity anticoagulation Observation Date Value Abnormality Reference (Units ) Status PT 06/04/2024 10:00:00 25.5 Above high normal 11 .6-15.2 (seconds) Final INR 06/04/2024 10:00:00 2.3 Above high normal 0. 8-1.2 Final Performing Location [facility] [address] [place] [address]
--- OUTSIDE RECORDS SUMMARY | 2024-07-21 02:00 | External Medical Summary | Summary of Care ---
Author Name Unknown Organization [facility] Address [address] [place] [address] Phone [phone] Care Team Providers Care Stemhole Borer Name Role Phone Charley Crane MD Primary Care Provider [phone] Reason for Visit * Reason Comments Knee Pain Second bilateral Euf lexxa injections * Precert (Within 30 days (routine)) - Authorized Specialty Diagnoses / Procedures Referred By Karlie cobos Referred To Contact Orthopedics Diagnoses Bilateral primary osteoarthritis of knee Procedures [place] GEL-SYN INJECTION 0.1 MG Steffanie Alfaro PA-C [address] [place] [address] Steffanie Alfaro PA-C [address] [place] [address] Referral ID Status Reason Start Date Expiration Date V isits Requested Visits Authorized [id number] Authorized Precert 04/08/2024 10/27/2099 [id number] Encounter Details Date Type Department Care Team (Latest Contact Info) Description 06/02/2024 1:00 PM EDT Office Visit Orthopaedics [facility] [address] [place] [address] Steffanie Alfaro PA-C [address] [place] [address] Primary osteoarthritis of both knees* Allergies No known active allergiesdocumented as of this encounter (statuses as of 06/02/2024) Medications Medication Sig Dispensed Refills Start Date [...] by mouth in the morning. 90 Tablet 01/20/2024 Active Spironolactone 25 MG Oral Tablet (Aldactone) Take 1 Tablet by mouth in the morning. 90 Tablet 01/20/2024 Active Torsemide 20 MG Oral Tablet (Demadex) Take 2 tablets by mouth once daily 180 Tablet 01/20/2024 Active Warfarin Sodium 10 MG Oral Tablet (Coumadin) Take 1 to 1.5 tablets by mouth every day in the evening or as directed by the anticoagulation clinic. 100 Tablet 01/20/2024 Active Albuterol Sulfate HFA 108 (90 [...] OF BREATH 360 mL 3 05/12/2024 Active Potassium Chloride ER 10 MEQ Oral [...] of both knees 20 mg IX ONCE 06/02/2024 06/03/2024 Active Sodium Hyaluronate (Viscosup) (Euflexxa/Hyalgan) 20 MG/2ML inj 20 mgIndications:Primary osteoarthritis of both knees 20 mg IX ONCE 06/02/2024 06/03/2024 Active documented as of this encounter (statuses as of 06/02/2024) Active Problems Problem Noted Date Diagnosed Date COPD, group D, by GOLD 2017 classification 11/04 Overview: Per COPD GOLD Classification alf current use of anticoagulant therapy 0 2023 Longstanding persistent atrial fibrillation 06/29 Hypertension goal BP (blood pressure) < 130/80 0 07/17/2023 Dyslipidemia, goal LDL below 70 07/17/2023 Body mass index (BMI) of 40.0 to 44.9 in adult 0 07/08/2023 Overview: Per Obesity protocol Atherosclerosis of [place] co 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 pectoris [...] Remote Patient Monitoring Vendor: [facility] Device(s): Connected Scale Continuous Monitoring Device Self [...] as of this encounter (statuses as of 06/02/2024) Resolved Problems Problem Noted Date Diagnosed Date [...] Classes - JULIA Class D - Inhaled Qkxhpqmyvgwpno-HACT-YDFV Combination Inhaler (Sandro) Remote Patient Monitoring Vendor: Current Health Device(s): Continuous Monitoring Device Traditional Scale Self-Management plan High frequency nebulizer treatments every 4-6 hours around the clock Exacerbation plan Chest Xray Additional Comments: On continuous o2 2-3lpm Bipap at night Atherosclerosis of [place] co 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 pectoris [...] as of this encounter (statuses as of 06/02/2024) Immunizations Name Administration Dates Next Due Pneumococcal [...] Progress Notes * Steffanie Alfaro PA-C - 06/02/2024 1:14 PM EDT Bala Coronado Jr. [id number] 06/02/2024 Here today for 2nd injection of Euflexxa for the right and left knee. Patient has noticed subtle improvements with injection 1. They are pleased with results thus far. No questions concerns complaints otherwise today. Examination unchanged from previous office note and visit please see for further details and findings Assessment: bilateral knee osteoarthritis Plan: Today 's findings were discussed with the patient. We will follow up in 1 week for 3rd injection series. Call sooner if needed. Satisfied with today's [...] within 24 hours. Steffanie Alfaro PA-C Orthopaedics [facility] 132 [facility] [place] [address] Orthopedic Sports Medicine Surgery 06/02/2024 1:14 PM This chart was completed in part utilizing [employer] Speech Voice Recognition Software. Grammatical errors, random [...] documented in this encounter Nursing Notes * Gena Jordan LPN - 06/02/2024 1:07 PM EDT Second bilateral Euflexxa injections documented in this encounter Plan of Treatment Upcoming Encounters Date Type Department Care Team (Late st Contact Info) Description 06/03/2024 12:30 PM EDT Home Visit [facility] at [address] [place] [address] Michelle Kim, RN 132 [facility] [place] [address] 06/04/2024 7:00 AM EDT Laboratory Lab Mobile Phlebotomy [facility] [address] [place] [address] [facility], [facility] Mobile Home Draw [address] [facility] [place] [address] 06/04/2024 6:00 PM EDT Anticoagulation Centralized Clinical Pharmacy Services, Oscar Peace [address] [place] [address] [place] [address] [facility] [place] [address] 06/09/2024 1:00 PM EDT Office Visit Orthopaedics [facility] 132 [facility] [place] [address] Steffanie Alfaro PA-C 132 [facility] [place] [address] 07/06/2024 11:00 AM EDT Office Visit Orthopaedics [facility] 132 [facility] [place] [address] Cm Dawson DO 132 [facility] [place] [address] 07/27/2024 2:15 PM EDT Office Visit Interventional Pain Center, [facility] 132 [facility] [place] [address] Gely Gilmore MD [address] [place], [place] [address] [address] 08/10/2024 12:20 PM EDT Office Visit [address] [phone] Charley Crane MD [address] [place] [address] 09/02/2024 3:00 PM EST Office Visit Sleep Disorders Ctr [facility] 132 [facility] [place] [phone] Audrey Lee DO 132 [facility] [place] [address] Health Maintenance Due Date Last Done Comments [...] IN PAST YEAR FOR COPD 05/10/2025 05/10/2024 GFR 05/29/2025 05/29/2024, 04/29, 05/20/2024, Additional history exists Pneumococcal Vaccine: 65+ Years Completed 07/05/2023 Zoster [...] osteoarthrosis, lower leg documented in this encounter Care Teams Stemhole Borer Relationship Specialty Start Date End Date Charley Crane MD [address] [place] [address] PCP - General Internal Medicine 06/04/23 documented as of this encounter
--- OUTSIDE RECORDS SUMMARY | 2024-07-21 02:00 | External Medical Summary | Summary of Care ---
Author Name Unknown Organization [facility] Address [address] [place] [address] Phone [phone] Care Team Providers Care Crater And Packer Name Role Phone Charley Crane MD Primary Care Provider [phone] Reason for Visit * Reason Comments Knee Pain Second bilateral Euf lexxa injections * Precert (Within 30 days (routine)) - Authorized Specialty Diagnoses / Procedures Referred By Karlie cobos Referred To Contact Orthopedics Diagnoses Bilateral primary osteoarthritis of knee Procedures [place] GEL-SYN INJECTION 0.1 MG Steffanie Alfaro PA-C [address] [place] [address] Steffanie Alfaro PA-C [address] [place] [address] Referral ID Status Reason Start Date Expiration Date V isits Requested Visits Authorized [id number] Authorized Precert 04/08/2024 10/27/2099 999 [id number] Encounter Details Date Type Department Care Team (Latest Contact Info) Description 06/02/2024 1:00 PM EDT Office Visit Orthopaedics [facility] [address] [place] [address] Steffanie Alfaro PA-C [address] [place] [address] Primary osteoarthritis of both knees* Allergies No [...] both knees 20 mg IX ONCE 06/02/2024 06/02/2024 Ended Sodium Hyaluronate (Viscosup) (Euflexxa/Hyalgan) 20 MG/2ML inj 20 mgIndications:Primary osteoarthritis of both knees 20 mg IX ONCE 06/02/2024 06/02/2024 Ended documented as of this encounter (statuses as of 06/02/2024) Active Problems Problem Noted Date Diagnosed Date COPD, group D, by GOLD 2017 classification 11/04 Overview: Per COPD GOLD Classification detention current use of anticoagulant therapy 0 2023 Longstanding persistent atrial fibrillation 06/29 Hypertension goal BP (blood pressure) < 130/80 0 07/17/2023 Dyslipidemia, goal LDL below 70 07/17/2023 Body mass index (BMI) of 40.0 to 44.9 in adult 0 07/08/2023 Overview: Per Obesity protocol Atherosclerosis of [place] co 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 pectoris 07/05/2023 [...] Classes - JULIA Class D - Inhaled Xnbgfwfinpcadv-GITR-JSBA Combination Inhaler (Sandro) Remote Patient Monitoring Vendor: Current Health Device(s): Continuous Monitoring Device Traditional Scale Self-Management plan High frequency nebulizer treatments every 4-6 hours around the clock Exacerbation plan Chest Xray Additional Comments: On continuous o2 2-3lpm Bipap at night Atherosclerosis of [place] co 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 pectoris 07/05/2023 [...] 06/02/2024 1:14 PM EDT Bala Coronado Jr. [id number] 06/02/2024 Here today for 2nd injection of [...] within 24 hours. Steffanie Alfaro PA-C Orthopaedics [facility] 132 [facility] [place] [address] Orthopedic Sports Medicine Surgery 06/02/2024 1:14 PM This chart was completed in part utilizing [employer] Speech Voice Recognition Software. Grammatical errors, random [...] Description 06/03/2024 12:30 PM EDT Home Visit [facility] at [address] [place] [address] Michelle Kim, RN 132 [facility] [place] [address] 06/04/2024 7:00 AM EDT Laboratory Lab Mobile Phlebotomy [facility] [address] [place] [address] [facility], [facility] Mobile Home Draw [address] [facility] [place] [address] 06/04/2024 6:00 PM EDT Anticoagulation Centralized Clinical Pharmacy Services, Oscar Peace [address] [place] [address] [place] [address] [facility] [place] [address] 06/09/2024 1:00 PM EDT Office Visit Orthopaedics [facility] 132 [facility] [place] [address] Steffanie Alfaro PA-C 132 [facility] [place] [address] 07/06/2024 11:00 AM EDT Office Visit Orthopaedics [facility] 132 [facility] [place] [address] Cm Dawson DO 132 [facility] [place] [address] 07/27/2024 2:15 PM EDT Office Visit Interventional Pain Center, [facility] 132 [facility] [place] [address] Gely Gilmore MD [address] [place], [place] [address] [address] 08/10/2024 12:20 PM EDT Office Visit [address] [phone] Charley Crane MD 819 [place] [address] 09/02/2024 3:00 PM EST Office Visit [facility] Disorders Ctr [facility] 132 [facility] [place] [phone] Audrey Lee DO 132 [facility] [place] [address] Health Maintenance Due Date Last Done Comments Alpha-1 Antitrypsin 1974 Hepatitis C Screening 1974 DTaP,Tdap,and Td Vaccines (1 - Tdap) 1975 Cologuard 2001 Colonoscopy 2001 Colorectal Cancer Screening 2001 Fecal Occult Blood Test 2001 Sigmoidoscopy 2001 AAA Screening 2021 COVID-19 Vaccine ( - season) 2023 Diabetic Foot Exam 06/21/2024 06/21/2023 [...] 20 mg 20 mg, Intra-Articular, ONCE, On Tu06/02/24 at 1400, For 1 dose Given 06/02/2024 2:17 PM EDT 20 mg Knee Right Sodium Hyaluronate (Viscosup) (Euflexxa/Hyalgan) 20 MG/2ML inj 20 mg 20 mg, Intra-Articular, ONCE, On Sat06/02/24 at 1400, For 1 dose Given 06/02/2024 2:17 PM EDT 20 mg Knee Left documented in this encounter Care Teams Crater And Packer Relationship Specialty Start Date End Date Charley Crane MD [address] [place] [address] PCP - General Internal Medicine 06/04/23 documented as of this encounter
--- OUTSIDE RECORDS SUMMARY | 2024-07-21 02:00 | External Medical Summary | Summary of Care ---
Author Name Unknown Organization [facility] Address [address] [place] [address] Phone [phone] Care Team Providers Care Broommaking Supervisor Name Role Phone Charley Crane MD Primary Care Provider [phone] Reason for Visit * Reason Comments Knee Pain Second bilateral Euf lexxa injections * Precert (Within 30 days (routine)) - Authorized Specialty Diagnoses / Procedures Referred By Karlie cobos Referred To Contact Orthopedics Diagnoses Bilateral primary osteoarthritis of knee Procedures [place] GEL-SYN INJECTION 0.1 MG Steffanie Alfaro PA-C [address] [place] [address] Steffanie Alfaro PA-C [address] [place] [address] Referral ID Status Reason Start Date Expiration Date V isits Requested Visits Authorized [id number] Authorized Precert 04/08/2024 10/27/[phone] Encounter Details Date Type Department Care Team (Latest Contact Info) Description 06/02/2024 1:00 PM EDT Office Visit Orthopaedics [facility] [address] [place] [address] Steffanie Alfaro PA-C [address] [place] [address] Primary osteoarthritis of both knees* Allergies No known active allergiesdocumented as of this encounter (statuses as of 06/03/2024) Medications Medication Sig Dispensed Refills Start Date [...] as of this encounter (statuses as of 06/03/2024) Active Problems Problem Noted Date Diagnosed Date COPD, group D, by GOLD 2017 classification 11/04 Overview: Per COPD GOLD Classification custodial current use of anticoagulant therapy 0 2023 Longstanding persistent atrial fibrillation 06/29 Hypertension goal BP (blood pressure) < 130/80 0 07/17/2023 Dyslipidemia, goal LDL below 70 07/17/2023 Body mass index (BMI) of 40.0 to 44.9 in adult 0 07/08/2023 Overview: Per Obesity protocol Atherosclerosis of [place] co 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 Jardiance) Remote Patient Monitoring Vendor: [facility] Device(s): Connected Scale Continuous [...] as of this encounter (statuses as of 06/03/2024) Resolved Problems Problem Noted Date Diagnosed Date [...] Classes - JULIA Class D - Inhaled Tdljdblnhpiufp-UBCC-GADD Combination Inhaler (Sandro) Remote Patient Monitoring Vendor: Current Health Device(s): Continuous Monitoring Device Traditional Scale Self-Management plan High frequency nebulizer treatments every 4-6 hours around the clock Exacerbation plan Chest Xray Additional Comments: On continuous o2 2-3lpm Bipap at night Atherosclerosis of [place] co 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 pectoris 07/05/2023 08/29/2023 Dyspnea 07/04/2023 08/13/2023 Occupational exposure in workplace 07/04/2023 02/14/2024 Chronic congestive heart failure 06/08/2023 07/05/2023 COPD, severe 06/08/2023 07/11/2023 Overview: Per COPD GOLD Classification Chronic hypoxemic respiratory failure 06/08/2023 07/04/2023 Chronic respiratory failure with hypoxia, on home oxygen therapy 06/08/2023 08/29/2023 Diabetes mellitus without complication 06/08/2023 08/29/2023 documented as of this encounter (statuses as of 06/03/2024) Immunizations Name Administration Dates Next Due Pneumococcal [...] Progress Notes * Jere Vela DO - 06/03/2024 9:28 AM EDT I have reviewed the advanced practitioner's documentation on the date of service referenced in note, and I agree with, and take responsibility for the plan of care. * Steffanie Alfaro PA-C - 06/02/2024 1:14 PM EDT Bala Coronado Jr. [id number] 06/02/2024 Here today for 2nd injection of [...] within 24 hours. Steffanie Alfaro PA-C Orthopaedics [facility] 132 [facility] [place] [address] Orthopedic Sports Medicine Surgery 06/02/2024 1:14 PM This chart was completed in part utilizing [employer] Speech Voice Recognition Software. Grammatical errors, random [...] Description 06/03/2024 12:30 PM EDT [facility] [place] 132 [facility] [place] [address] Michelle Kim, RN 132 [facility] [place] [address] 06/04/2024 7:00 AM EDT Laboratory Lab Mobile Phlebotomy [facility] [address] [facility] [place] [address] [facility], Gml Mobile Home Draw [address] [facility] [place] [address] 06/04/2024 6:00 PM EDT Anticoagulation Centralized Clinical Pharmacy Services, Oscar Peace [address] [place] [address] [place] [address] [place] [address] 06/09/2024 1:00 PM EDT Office Visit Orthopaedics [facility] [address] [place] [address] Steffanie Alfaro PA-C [address] [place] [address] 07/06/2024 11:00 AM EDT Office Visit Orthopaedics [facility] [address] [facility] [place] [address] Cm Dawson DO [address] [facility] [place] [address] 07/27/2024 2:15 PM EDT Office Visit Interventional Pain Center, [facility] 132 [facility] [place] [address] Gely Gilmore MD [address] [place] [address] [place] [address] 08/10/2024 12:20 PM EDT Office Visit [facility] [place] [address] [place] [phone] Charley Crane MD [address] [place] [address] 09/02/2024 3:00 PM EST Office Visit Sleep Disorders Ctr [facility] 132 [facility] [place] [address] Audrey Lee, [address] [place] [address] Health Maintenance Due Date Last Done Comments [...] Left documented in this encounter Care Teams Broommaking Supervisor Relationship Specialty Start Date End Date Charley Crane MD [address] [place] [address] PCP - General Internal Medicine 06/04/23 documented as of this encounter
--- OUTSIDE RECORDS SUMMARY | 2024-07-21 02:00 | External Medical Summary | Summary of Care ---
Author Name Unknown Organization [facility] Address [address] [place] [address] Phone [phone] Care Team Providers Care Crook Operator Name Role Phone Charley Crane MD Primary Care Provider [phone] Reason for Visit * Reason Comments Follow Up 3rd inj euflexxa AMBER * Precert (Within 30 days (routine)) - Authorized Specialty Diagnoses / Procedures Referred By Karlie t Referred To Contact Orthopedics Diagnoses Bilateral primary osteoarthritis of knee Procedures SC GEL-SYN INJECTION 0.1 MG Steffanie Alfaro PA-C [address] [place] [phone] Steffanie Alfaro PA-C [address] [place] [phone] Referral ID Status Reason Start Date Expiration Date V isits Requested Visits Authorized [id number] Authorized Precert 04/08/2024 10/27/2099 [id number] Encounter Details Date Type Department Care Team (Latest Contact Info) Description 06/09/2024 1:00 PM EDT Office Visit Orthopaedics [facility] [address] [place] [address] Steffanie Alfaro PA-C [address] [place] [phone] Primary osteoarthritis of both knees* Allergies No [...] both knees 20 mg IX ONCE 06/09/2024 06/10/2024 Active Sodium Hyaluronate (Viscosup) (Euflexxa/Hyalgan) 20 MG/2ML inj 20 mgIndications:Primary osteoarthritis of both knees 20 mg IX ONCE 06/09/2024 06/10/2024 Active documented as of this encounter (statuses as of 06/09/2024) Active Problems Problem Noted Date Diagnosed Date COPD, group D, by GOLD 2017 classification 11/04 Overview: Per COPD GOLD Classification long term current use of anticoagulant therapy 0 2023 Longstanding persistent atrial fibrillation 06/29 Hypertension goal BP (blood pressure) < 130/80 0 07/17/2023 Dyslipidemia, goal LDL below 70 07/17/2023 Body mass index (BMI) of 40.0 to 44.9 in adult 0 07/08/2023 Overview: Per Obesity protocol Atherosclerosis of [place] co 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 pectoris 07/05/2023 [...] Jardiance) Remote Patient Monitoring Vendor: [facility] Device(s): Connected Scale Continuous Monitoring Device Self [...] Classes - JULIA Class D - Inhaled Qggvsiishvkvgg-CQHY-JEEK Combination Inhaler (Sandro) Remote Patient Monitoring Vendor: [facility] Device(s): Continuous Monitoring Device Traditional Scale Self-Management plan High frequency nebulizer treatments every 4-6 hours around the clock Exacerbation plan Chest Xray Additional Comments: On continuous o2 2-3lpm Bipap at night Atherosclerosis of viejas co 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 pectoris 07/05/2023 [...] 06/09/2024 2:00 PM EDT Bala Coronado Jr. [id number] 06/02/2024 Here today for 3rd injection of [...] within 24 hours. Steffanie Alfaro PA-C Orthopaedics [facility] 132 [facility] [place] [address] Orthopedic Sports Medicine Surgery 06/09/2024 This chart was completed in part utilizing [employer] Speech Voice Recognition Software. Grammatical errors, random [...] EDT Laboratory Lab Mobile Phlebotomy [facility] [address] [facility] [place] [address] Mvmg, Gml Mobile Home Draw [address] [facility] [place] [address] 06/12/2024 6:00 AM EDT Anticoagulation Centralized Clinical Pharmacy Services, Oscar Peace [address] [place] [address] [place] [address] Ccps, [address] [place] [address] 07/01/2024 8:50 AM EDT Telemedicine [facility] [place], [facility] 132 [facility] [place] [address] Fabian Gonzalez PA-C 132 [facility] [place] [phone] Chacha Kennedy, Community Health Advertising Space Clerk [address] [place] [address] 07/06/2024 11:00 AM EDT Office Visit Orthopaedics [facility] 132 [facility] [place] [address] Cm Dawson, DO [address] [place] [address] 07/09/2024 8:30 AM EDT Home Visit [facility], [facility] [address] [place] [address] Michelle Kim RN [address] [place] [phone] 07/27/2024 2:15 PM EDT Office Visit Interventional Pain Center, [facility] 132 [facility] [place] [address] Gely Gilmore MD [address] [place] [address] [place] [address] 08/10/2024 12:20 PM EDT Office Visit Family [place] [address] [place] [phone] Charley [place]ane MD [address] [place] [address] 09/02/2024 3:00 PM EST Office Visit Sleep Disorders Ctr [facility] 132 [facility] [place] [phone] Audrey Lee, DO [address] [place] [address] Health Maintenance Due Date Last Done Comments [...] leg documented in this encounter Care Teams Crook Operator Relationship Specialty Start Date End Date Charley [place] MD [facility] [place] [address] PCP - General Internal Medicine 06/04/23 documented as of this encounter
--- OUTSIDE RECORDS SUMMARY | 2024-07-21 02:00 | External Medical Summary | Summary of Care ---
Author Name Unknown Organization [facility] Address [address] [place] [address] Phone [phone] Care Team Providers Care Oracle Applications Developer Name Role Phone Charley [place] MD Primary Care Provider [phone] Reason for Visit * Reason Onset Date Comments Appointment 06/03/2024 Encounter Details Date Type Department Care Team (Late st Contact Info) Description 06/03/2024 Telephone [facility], [place] [address] [place] [address] Services, Scheduling [address] [place] [address] Appointment (//) Allergies No known active allergiesdocumented as of [...] 07/08/2023 Overview: Per Obesity protocol Atherosclerosis of [place] co 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 Jardiance) Remote Patient Monitoring Vendor: [facility] [place] Device(s): Connected Scale Continuous Monitoring Device Self [...] Classes - JULIA Class D - Inhaled Kozopegqodhjna-BDJH-YCZK Combination Inhaler (Trellegy) Remote Patient Monitoring Vendor: [facility] Device(s): Continuous Monitoring Device Traditional Scale Self-Management plan High frequency nebulizer treatments every 4-6 hours around the clock Exacerbation plan Chest Xray Additional Comments: On continuous o2 2-3lpm Bipap at night Atherosclerosis of [place] co 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 pectoris 07/05/2023 [...] encounter Miscellaneous Notes * Telephone Encounter - Rosetta Camarillo OSA - 06/03/2024 2:43 PM EDT Request for a JOHN#2 in a few wks with Kimmy Gonzalez I found 07/01@850 telemed and called and Bala was agreeable to it documented in this encounter Plan of Treatment Upcoming Encounters Date Type Department Care Team (Jose Alejandro max Contact Info) Description 06/04/2024 7:00 AM EDT Laboratory Lab Mobile Phlebotomy [facility] [address] [facility] [place] [address] Mvmg, Gml Mobile Home Draw [address] [facility] [place] [address] 06/04/2024 6:00 PM EDT Anticoagulation Centralized Clinical Pharmacy Services, Oscar Peace [address] [place] [address] [place] [address] [facility], [address] [place] [address] 06/09/2024 1:00 PM EDT Office Visit [facility] [address] [place] [address] Setffanie Alfaro PA-C [address] [place] [address] 07/01/2024 8:50 AM EDT Telemedicine [facility], [facility] [address] [place] [address] Fabian Gonzalez PA-C [address] [place] [phone] Chacha Kennedy, Community Health Belt Puncher [address] [place] [address] 07/06/2024 11:00 AM EDT Office Visit [facility] [address] [place] [address] Cm Dawson, [address] [place] [address] 07/09/2024 8:30 AM EDT Home Visit [facility] [place], [facility] [address] [place] [address] Michelle Kim, RN [address] [place] [address] 07/27/2024 2:15 PM EDT Office Visit Interventional Pain Center, [facility] [address] [place] [address] Gely Gilmore MD [address] [place] [address] [place] [address] 08/10/2024 12:20 PM EDT Office Visit Family [facility] [address] [place] [phone] Charley [place] MD [address] [place] [address] 09/02/2024 3:00 PM EST Office Visit Sleep Disorders Ctr [facility] [place] [phone] Audrey Lee DO [address] [place] [address] Health Maintenance Due Date Last Done Comments [...] filedocumented as of this encounter Care Teams Oracle Applications Developer Relationship Specialty Start Date End Date Charley [place] MD [address] [place] [address] PCP - General Internal Medicine 06/04/23 documented as of this encounter
--- OUTSIDE RECORDS SUMMARY | 2024-07-21 02:00 | External Medical Summary | Summary of Care ---
Author Name Unknown Organization [facility] Address [address] [facility] [address] Phone [phone] Care Team Providers Care Carton Inspector Name Role Phone Charley [place] MD Primary Care Provider [phone] Reason for Visit * Reason Onset Date Comments [facility]: Maintenance 06/02/2024 Encounter Details Date Type Department Care Team (Late st Contact Info) Description 06/02/2024 10:15 AM EDT Scheduled Telephone [facility], [facility] 132 [facility] [place] [address] Coordinator, [facility] 132 [facility] [place] [phone] Allergies No known active allergiesdocumented as of [...] 11/04 Overview: Per COPD GOLD Classification intermediate current use of anticoagulant therapy 0 2023 Longstanding persistent atrial fibrillation 06/29 Hypertension goal BP (blood pressure) < 130/80 0 07/17/2023 Dyslipidemia, goal LDL below 70 07/17/2023 Body mass index (BMI) of 40.0 to 44.9 in adult 0 07/08/2023 Overview: Per Obesity protocol Atherosclerosis of [place] co 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 Jardiance) Remote Patient Monitoring Vendor: [facility] Device(s): Connected Scale Continuous [...] Classes - JULIA Class D - Inhaled Nwebjpyerrxkiu-NXUX-UHZW Combination Inhaler (Silverllegy) Remote Patient Monitoring Vendor: [facility] Device(s): Continuous Monitoring Device Traditional Scale Self-Management plan High frequency nebulizer treatments every 4-6 hours around the clock Exacerbation plan Chest Xray Additional Comments: On continuous o2 2-3lpm Bipap at night Atherosclerosis of [place] co 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 pectoris 07/05/2023 [...] Telephone Encounter - Isabel Marquez RN - 06/02/2024 11:31 AM EDT [facility] Telephonic Nurse Follow-Up Call [facility] Subprogram: Focused Care Management (3-9 months) Follow Up Call Type: Routine follow up call / Status Check Acute issue requiring follow-up call: Other: JOHN call Objective: 05/10/2024 4:58 PM 05/05/2024 2:01 PM 04/01/2024 9:49 AM 02/20/2024 9:45 AM 02/10/2024 12:48 PM VITALS ACROSS ENCOUNTERS BP 110/70 118/64 118/64 124/64 138/70 Pulse 60 80 56 62 81 Weight 128.4 kg 127 kg BMI 44.32 kg/m2 43.85 kg/m2 Remote Patient Monitoring: NONE Oxygen Needs: NO CHANGE from baseline supplemental oxygen needs DME Needs: NO DME needs identified Medications: No medication or dose adjustments made during acute episode Subjective: Condition Status: UTC-left vm requesting return call. Pt scheduled for RNCM home visit tomorrow. Current Concerns: Pending return call Disposition: RNCM visit scheduled Future Visits Scheduled: Future Appointments-next 60 days Date/Time Provider Specialty Dept Phone 06/02/2024 1:00 PM (Arrive by 12:45 PM) Steffanie Alfaro PA-C Orthopedics [phone] 06/03/2024 12:30 PM Michelle Kim RN [facility] [phone] 06/04/2024 7:00 AM [facility], Gml Mobile Home Draw Laboratory Processing [phone] 06/04/2024 6:00 PM [facility] [phone] 07/06/2024 11:00 AM (Arrive by 10:45 AM) Cm [place] DO Orthopedics [phone] 07/27/2024 2:15 PM (Arrive by 2:00 PM) Gely Gilmore MD Pain Medicine [phone] 08/10/2024 12:20 PM (Arrive by 12:05 PM) Charley [place]ane MD Family Medicine [phone] 09/02/2024 3:00 PM (Arrive by 2:45 PM) Audrey Lee DO Sleep Disorders [phone] Isabel Marquez RN documented in this encounter Plan of Treatment Upcoming Encounters Date Type Department Care Team (Late st Contact Info) Description 06/02/2024 1:00 PM EDT Office Visit Orthopaedics [facility] 132 [place] [address] Steffanie Alfaro PA-C 132 [place] [address] 06/03/2024 12:30 PM EDT [facility] [address] [place] [address] Michelle Kim RN 132 [place] [address] 06/04/2024 7:00 AM EDT Laboratory Lab Mobile Phlebotomy [facility] [address] [employer] [place] [address] Mv[facility], Gml Mobile Home Draw [address] [employer] [place] [address] 06/04/2024 6:00 PM EDT Anticoagulation Centralized Clinical Pharmacy Services, [address] [place] [address] [place] [address] 07/06/2024 11:00 AM EDT Office Visit Orthopaedics [facility] 132 [place] [address] Cm [place] DO 132 [place] [address] 07/27/2024 2:15 PM EDT Office Visit Interventional Pain Center, [facility] [address] [place] [address] Gely Gilmore MD [address] [place] [address] [place] [address] 08/10/2024 12:20 PM EDT [facility] Visit [facility] [address] [facility] [phone] Charley [place] MD [address] [facility] [place] [address] 09/02/2024 3:00 PM EST Office Visit Sleep Disorders Ctr [facility] [address] [place] [phone] Audrey Lee DO [address] [place] [address] Health Maintenance Due Date Last Done Comments [...] filedocumented as of this encounter Care Teams Carton Inspector Relationship Specialty Start Date End Date Charley [place] MD [address] [place] [address] PCP - General Internal Medicine 06/04/23 documented as of this encounter
--- OUTSIDE RECORDS SUMMARY | 2024-07-21 02:00 | External Medical Summary | Summary of Care ---
Author Name Unknown Organization [facility] Address [address] [facility] [place] [address] Phone [phone] Care Team Providers Care Criminal Justice Professor Name Role Phone Charley [place] MD Primary Care Provider [phone] Reason for Visit * Reason Comments [facility]: Acute Encounter Details Date Type Department Care Team (Late st Contact Info) Description 05/05/2024 2:30 PM EDT Home Visit [facility], [facility] 132 [facility] [place] [address] Michelle Kim, RN 132 [place] [address] Allergies No known active allergiesdocumented as of [...] daily 30 g 1 08/13/20 23 Active Zoster Vac Recomb Adjuvanted 50 MCG/0.5ML Intramuscular Suspension Reconstituted (Shingrix) Inject 0.5 mL into a large muscle now and repeat dose in 60 to 180 days 1 Each 1 20 23 Active Zoster Vac Recomb Adjuvanted 50 MCG/0.5ML Intramuscular Suspension Reconstituted (Shingrix) Inject 0.5 mL into a large muscle now and repeat dose in 60 to 180 days 1 Each 11/26/19 24 Active guaiFENesin ER 600 MG Oral Tablet Extended Release 12 Hour (Mucinex) Take 1 Tablet by mouth 2 times a day. Active Empagliflozin 10 MG Oral Tablet (Jardiance) Take 1 Tablet by mouth in the morning. 90 Tablet 3 01/20/20 24 Active Enalapril Maleate 10 MG Oral Tablet (Vasotec) Take 1 Tablet by mouth in the morning. 90 Tablet 3 01/20/20 24 Active Isosorbide Mononitrate ER 60 MG Oral Tablet Extended Release 24 Hour (Imdur)Indication s:Hypertension goal BP (blood pressure) < 130/80 Take 1 Tablet by mouth in the morning. 90 Tablet 3 01/20/20 24 Active Spironolactone 25 MG Oral Tablet (Aldactone) Take 1 Tablet by mouth in the morning. 90 Tablet 3 01/20/20 24 Active Torsemide 20 MG Oral Tablet (Demadex) [...] rescue kit. 20 Capsule 01/23/20 24 Active predniSONE 20 MG Oral Tablet (Deltasone) Take 2 Tablets by mouth in the morning. COPD rescue kit. 10 Tablet 01/23/20 24 Active Fluticasone Propionate 50 MCG/ACT [...] FOR SHORTNESS OF BREATH 360 mL 3 01/20/20 24 024 Discontinued Pantoprazole Sodium 40 MG Oral Tablet Delayed Release (Protonix) Take 1 Tablet by mouth in the morning. 90 Tablet 3 01/20/20 24 024 Discontinued Potassium Chloride ER 10 MEQ Oral Capsule Extended Release Take 1 Capsule by mouth every other day. 45 Capsule 3 01/20/20 24 024 Discontinued Trelegy Ellipta 100-62.5-25 MCG/ACT Aerosol Powder Breath Activated (Fluticasone-Umec lidinium-Vilanter ol) Inhale 1 Puff by mouth in the morning. 180 Blister Dosing Unit 3 01/20/20 24 024 Discontinued(Re fill) predniSONE 20 MG Oral Tablet (Deltasone) Take 2 Tablets by mouth in the morning for 5 days. 10 Tablet 05/05/20 24 024 Doxycycline Hyclate 100 MG Oral Capsule Take 1 Capsule by mouth in the morning and 1 Capsule before bedtime. Do all this for 10 days. Until gone.. 20 Capsule 05/05/20 24 024 Cephalexin 500 MG Oral Capsule Take 1 Capsule by mouth in the morning and 1 Capsule before bedtime. Do all this for 10 days. 20 Capsule 05/05/20 24 024 documented as of this encounter (statuses as [...] 07/08/2023 Overview: Per Obesity protocol Atherosclerosis of [place]a'[place] co 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 Jardiance) Remote Patient Monitoring Vendor: [facility] Device(s): Connected Scale Continuous Monitoring Device Self [...] Classes - JULIA Class D - Inhaled Dbupiuhnfeebkw-ZSMT-MFUH Combination Inhaler (Trellegy) Remote Patient Monitoring Vendor: [facility] Device(s): Continuous Monitoring Device Traditional Scale Self-Management plan High frequency nebulizer treatments every 4-6 hours around the clock Exacerbation plan Chest Xray Additional Comments: On continuous o2 2-3lpm Bipap at night Atherosclerosis of asa'[place] co 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 pectoris 07/05/2023 [...] Sign Reading Time Taken Comments Blood Pressure 118/64 05/05/2024 2:01 PM EDT Pulse 80 05/05/2024 2:01 PM EDT Temperature 36.2 C (97.1 F) 05/05/2024 2 :01 PM EDT Respiratory Rate 19 05/05/2024 2:01 PM EDT Oxygen Saturation 92% 05/05/2024 2:0 1 PM EDT 02 on at 1.5 l/min via nc Inhaled Oxygen Concentration - - Weight - - Height - - Body Mass Index - - documented in this encounter Progress Notes * Michelle Kim RN - 05/05/2024 1:56 PM EDT Images from the original note were not included. [facility] Skin Care TherapistVending Machine Servicer Visit Date: 05/05/2024 Time: 1:56 PM Name: Bala Coronado Jr. : 1955 Current Concerns: Communication Note Name: Bala Coronado Jr. Situation: Situation: 68 year old male called and stated he went for "knee injections today", injections were not done because his right lower leg from his knee down is reddened and swollen . Patient denies any injury other then a scratch near his right knee, he denies any falls, or insect bites,"stating the redness and swelling just happened today, he must have some kind of infection Pt unable to send in pictures to intake to home visit make for assessment Also - just finished copd rescue kit of doxy and prednisone yesterday Background: HX Afib on Coumadin, pulmonary hypertension , venous insufficiency, COPD, chronic respiratory failure, ox dependent, DM, DVT Assessment: Pt with increased redness of RLE Increased edema, worse than left Mild warmth noted Denies increase in pain - states "I always have pain of my knees so it's hard to tell" BP 118/64 | Pulse 80 | Temp 36.2 C (97.1 F) | Resp 19 | SpO2 92% Comment: 02 on at 1.5 l/min via nc Recommendation: TT with assessment and pic sent to [facility] Ordered keflex for cellulitis Also ordered rescue kit for pt to keep on hand at home as he recently used his Problems/Symptoms: Review of Systems Constitutional: Negative. Respiratory: Positive for cough (chronic - at baseline) and shortness of breath (BERRY - at baseline). Cardiovascular: Positive for leg swelling (above baseline, right worse than left). Physical Exam: BP 118/64 | Pulse 80 | Temp 36.2 C (97.1 F) | Resp 19 | SpO2 92% Comment: 02 on at 1.5 l/min via nc Pain 0 Physical Exam Constitutional: General: He is not in acute distress. Appearance: He is obese. Cardiovascular: Rate and Rhythm: Normal rate and regular rhythm. Pulses: Normal pulses. Heart sounds: Normal heart sounds. Pulmonary: Effort: Pulmonary effort is normal. Breath sounds: Wheezing present. Abdominal: General: Bowel sounds are normal. Palpations: Abdomen is soft. Musculoskeletal: Right lower leg: Edema (+3) present. Left lower leg: Edema (+2) present. Skin: General: Skin is warm and dry. Findings: Erythema (LE) present. Neurological: Mental Status: He is alert and oriented to person, place, and time. [facility] Completed this Visit: Yes. [facility]: Reason Completed: Status post acute event/change in baseline [facility] Interventions: Fall education provided, reviewed/provided Fall brochure Treatment/Plan: Continue meds as prescribed Complete entire course of abx Elevate LE as much as possible Weigh self daily and record Nebulizer treatment prn 24 hr f/u call scheduled Rescue kit on hand for prn use Home Interventions Provided: Home Intervention: Other; eval Consulted PCP/Specialist Reinforced current Plan of Care, including self-management and medication regimen Patient's 'Red Flags': Increased LE edema Increased warmth, redness, weeping or open areas of LE's Increased SOB or wheezing Patient Needs to Remember: Call [facility] at with any new or worsening health concerns or problems, red flag symptoms. Referrals Needed: Other none Follow Up: Is there cellular connectivity/connectivity in the home? Yes Does the patient have internet in the home? Yes Patient encouraged to call the intake phone number for all urgent but not emergent issues. Scheduled to follow up with patient in 24 hrs. Michelle Kim RN 05/05/2024 1:56 PM documented in this encounter Plan of Treatment Upcoming Encounters Date Type Department Care Team (Late st Contact Info) Description 06/03/2024 12:30 PM EDT Home Visit [facility] [address] [place] [address] Michelle Kim RN 132 [place] [address] 06/04/2024 7:00 AM EDT Laboratory Lab Mobile Phlebotomy [facility] [facility] [place] [address] [facility], Gml Mobile Home Draw [address] [facility] [place] [address] 06/04/2024 6:00 PM EDT Anticoagulation Centralized Clinical Pharmacy Services, Oscar Peace [address] [place] [address] [place] [address] [place] [address] 06/09/2024 1:00 PM EDT Office Visit [facility] 132 [place] [address] Steffanie Alfaro PA-C 132 [place] [address] 07/06/2024 11:00 AM EDT Office Visit [facility] 132 [place] [address] Cm Dawson, 132 [place] [address] 07/27/2024 2:15 PM EDT Office Visit Interventional Pain Center, [facility] 132 [facility] [place] [address] Gely Gilmore MD [address] [place] [address] 08/10/2024 12:20 PM EDT Office Visit [facility] [address] [place] [phone] Charley [place] MD [address] [place] [address] 09/02/2024 3:00 PM EST Office Visit Sleep Disorders Ctr [facility] 132 [facility] [place] [phone] Audrey Lee DO 132 [facility] [place] [address] Health Maintenance Due Date Last Done Comments [...] filedocumented as of this encounter Care Teams Criminal Justice Professor Relationship Specialty Start Date End Date Charley Cr[place] MD [address] [place] [address] PCP - General Internal Medicine 06/04/23 documented as of this encounter
--- OUTSIDE RECORDS SUMMARY | 2024-07-21 02:01 | External Medical Summary | Summary of Care ---
Author Name Unknown Organization [facility] Address [address] [place] [address] Phone [phone] Care Team Providers Care Shoulder Joiner Name Role Phone Charley Crane MD Primary Care Provider [phone] Reason for Visit * Reason Comments Follow Up 1st inj euflexxa AMBER Had to finish antibiotics * Precert (Within 30 days (routine)) - Authorized Specialty Diagnoses / Procedures Referred By Karlie cobos Referred To Contact Orthopedics Diagnoses Bilateral primary osteoarthritis of knee Procedures [place] GEL-SYN INJECTION 0.1 MG Steffanie Alfaro PA-C [address] [place] [phone] Steffanie Alfaro PA-C [address] [place] [phone] Referral ID Status Reason Start Date Expiration Date V isits Requested Visits Authorized [id number] Authorized Precert 04/08/2024 10/27/2099 [id number] Encounter Details Date Type Department Care Team (Latest Contact Info) Description 05/26/2024 2:00 PM EDT Office Visit Orthopaedics [facility] [address] [place] [address] Steffanie Alfaro PA-C [address] [place] [phone] Primary osteoarthritis of both knees* Allergies No known active allergiesdocumented as of this encounter (statuses as of 05/26/2024) Medications Medication Sig Dispensed Refills Start Date [...] EVERY MORNING 90 Tablet 1 05/25/2024 Active Hospital, Clinic, or Other Facility Administered Medication Ordered Dose Route Frequency Start Date End Date Status Sodium Hyaluronate (Viscosup) (Euflexxa/Hyalgan) 20 MG/2ML inj 20 mgIndications:Primary osteoarthritis of both knees 20 mg IX ONCE 05/26/2024 05/26/2024 Ended Sodium Hyaluronate (Viscosup) (Euflexxa/Hyalgan) 20 MG/2ML inj 20 mgIndications:Primary osteoarthritis of both knees 20 mg IX ONCE 05/26/2024 05/26/2024 Ended documented as of this encounter (statuses as of 05/26/2024) Active Problems Problem Noted Date Diagnosed Date COPD, group D, by GOLD 2017 classification 11/04 Overview: 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 Jardiance) Remote Patient Monitoring Vendor: [facility] [place]s): Connected Scale Continuous [...] as of this encounter (statuses as of 05/26/2024) Resolved Problems Problem Noted Date Diagnosed Date [...] Classes - JULIA Class D - Inhaled Hbahjuoihnrvvz-FXUC-CWDG Combination Inhaler (Silvergoran) Remote Patient Monitoring Vendor: [facility] Device(s): Continuous Monitoring Device Traditional Scale Self-Management plan High frequency nebulizer treatments every 4-6 hours around the clock Exacerbation plan Chest Xray Additional Comments: On continuous o2 2-3lpm Bipap at night Atherosclerosis of [place] co 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 pectoris 07/05/2023 08/29/2023 Dyspnea 07/04/2023 08/13/2023 Occupational exposure in workplace 07/04/2023 02/14/2024 Chronic congestive heart failure 06/08/2023 07/05/2023 COPD, severe 06/08/2023 07/11/2023 Overview: Per COPD GOLD Classification Chronic hypoxemic respiratory failure 06/08/2023 07/04/2023 Chronic respiratory failure with hypoxia, on home oxygen therapy 06/08/2023 08/29/2023 Diabetes mellitus without complication 06/08/2023 08/29/2023 documented as of this encounter (statuses as of 05/26/2024) Immunizations Name Administration Dates Next Due Pneumococcal [...] Progress Notes * Jere Vela DO - 05/26/2024 3:55 PM EDT I have reviewed the advanced practitioner's documentation on the date of service referenced in note, and I agree with, and take responsibility for the plan of care. * Steffanie Alfaro PA-C - 05/26/2024 1:56 PM EDT Bala Coronado Jr. [id number] 05/26/2024 Here today for 1st injection of Euflexxa for the right and left knee. Prior series was completed on10/29/2023 he would like to begin another series today. Patient was recently hospitalized for COPD exacerbation and CHF he states he is overall feeling better in his currently at [facility]. No questions concerns complaints otherwise today. Examination unchanged from previous office note and visit please see for further details and findings Assessment: Bilateral knee osteoarthritis Plan: Today 's findings were discussed with the patient. We will follow up in 1 week for 2nd injection series. Call sooner if needed. Satisfied with today's care. Procedure Note: Bilateral knee injections Time out: Prior to injection, [...] 1.5 inch, 22 gauge needle. Injected with Euflexxa. Skin cleansed with alcohol and Band-Aid placed. [...] within 24 hours. Steffanie Alfaro PA-C Orthopaedics [address] [address] Orthopedic Sports Medicine Surgery 05/26/2024 1:56 PM This chart was completed in part utilizing [employer] Speech Voice Recognition Software. Grammatical errors, random [...] Nursing Notes * Aracely Garay CMA - 05/26/2024 1:53 PM EDT 1st inj euflexxa AMBER Had to finish antibiotics documented in this encounter Plan of Treatment Upcoming Encounters Date Type Department Care Team (Late st Contact Info) Description 05/28/2024 7:00 AM EDT [facility] [address] [place] [address] [place] [address] [place] [address] 05/28/2024 2:15 PM EDT Office Visit [facility], [facility] [address] [place] [address] Johnathan Ferrer, DO [address] [place] [phone] 06/02/2024 1:00 PM EDT Office Visit Orthopaedics [facility] [address] [place] [address] Steffanie Alfaro PA-C [address] [place] [address] 07/06/2024 11:00 AM EDT Office Visit Orthopaedics [facility] [address] [place] [address] Cm Dawson, DO [address] [facility] [place] [address] 08/10/2024 12:20 PM EDT Office Visit [place] [address] [place] [phone] Charley Crane MD [address] [place] [address] 09/02/2024 3:00 PM EST Office Visit [facility] Disorders Ctr [facility] [address] [place] [phone] Audrey Lee, DO [address] [place] [address] Health Maintenance Due Date Last Done Comments [...] PAST YEAR FOR COPD 05/10/2025 05/10/2024 GFR 05/20/2025 05/20/2024, 01/26, 11/14/2023, Additional history exists Pneumococcal Vaccine: 65+ Years Completed 07/05/2023 *BASELINE [...] 20 mg 20 mg, Intra-Articular, ONCE, On 05/26/24 at 1445, For 1 dose Given 05/26/2024 2:13 PM EDT 20 mg Knee Right Sodium Hyaluronate (Viscosup) (Euflexxa/Hyalgan) 20 MG/2ML inj 20 mg 20 mg, Intra-Articular, ONCE, On Tu05/26/24 at 1445, For 1 dose Given 05/26/2024 2:13 PM EDT 20 mg Knee Left documented in this encounter Care Teams Shoulder Joiner Relationship Specialty Start Date End Date Charley Crane MD [address] [place] [address] PCP - General Internal Medicine 06/04/23 documented as of this encounter
--- OUTSIDE RECORDS SUMMARY | 2024-07-21 02:01 | External Medical Summary ---
Author Name Unknown Address Unknown Organization K09[facility] [place] [address] Laboratory Report Ordering Provider Test Date Status KAYLA TRUJILLO 05/29/2024 13:44:13 Final Observation Date Value Abnormality Reference (Units ) Status BUN 05/29/2024 13:44:13 50 Above high normal 6-20 (mg/dL) Final Creatinine 05/29/2024 13:44:13 0.9 0.6-1.2 (mg/dL) Final Glomerular filtration rate/1.73 sq M.predicted [Volume Rate/Area] in Serum, Plasma or Blood by Creatinine-based formula (CKD-EPI) 05/29/2024 13:44:13 >90 >=60 (mL/min) Final eGFR is calculated based on the CKD-EPI 2020 equation. Sodium 05/29/2024 13:44:13 134 Below low normal 135 -146 (mmol/L) Final Potassium 05/29/2024 13:44:13 4.9 3.5-5.1 (m mol/L) Final Cl 05/29/2024 13:44:13 92 Below low normal 98- 107 (mmol/L) Final CO2 05/29/2024 13:44:13 29 22-32 (mmo l/L) Final Anion gap 05/29/2024 13:44:13 13 7-15 (mmol /L) Final Glucose 05/29/2024 13:44:13 120 70-120 (mg /dL) Final Calcium 05/29/2024 13:44:13 9.7 8.4-10.2 ( mg/dL) Final Performing Location [facility] [place] [address]
--- OUTSIDE RECORDS SUMMARY | 2024-07-21 02:01 | External Medical Summary | Summary of Care ---
Author Name Unknown Organization [facility] Address [address] [place] [address] Phone [phone] Care Team Providers Care Research Program Manager Name Role Phone Salima Crane MD Primary Care Provider [phone] Reason for Visit * Reason Onset Date Comments Medication Refill 06/01/2024 Encounter Details Date Type Department Care Team (Late st Contact Info) Description 06/01/2024 Refill [facility] [address] [place] [phone] Salima Crane MD [address] [place] [address] Allergies No known active allergiesdocumented as of this encounter (statuses as of 06/01/2024) Medications Medication Sig Dispensed Refills Start Date [...] once daily 30 g 1 3 Active Zoster Vac Recomb Adjuvanted 50 MCG/0.5ML Intramuscular Suspension Reconstituted (Shingrix) Inject 0.5 mL into a large muscle now and repeat dose in 60 to 180 days 1 Each 1 3 Active Zoster Vac Recomb Adjuvanted 50 MCG/0.5ML Intramuscular Suspension Reconstituted (Shingrix) Inject 0.5 mL into a large muscle now and repeat dose in 60 to 180 days 1 Each 1 4 Active guaiFENesin ER 600 MG Oral Tablet Extended Release 12 Hour (Mucinex) Take 1 Tablet by mouth 2 times a day. Active Empagliflozin 10 MG Oral Tablet (Jardiance) Take 1 Tablet by mouth in the morning. 90 Tablet 3 4 Active Enalapril Maleate 10 MG Oral Tablet (Vasotec) Take 1 Tablet by mouth in the morning. 90 Tablet 3 4 Active Isosorbide Mononitrate ER 60 MG Oral Tablet Extended Release 24 Hour (Imdur)Indications :Hypertension goal BP (blood pressure) < 130/80 Take 1 Tablet by mouth in the morning. 90 Tablet 3 4 Active Spironolactone 25 MG Oral Tablet (Aldactone) Take 1 Tablet by mouth in the morning. 90 Tablet 3 4 Active Torsemide 20 MG Oral Tablet (Demadex) [...] OF BREATH 360 mL 3 4 Active Potassium Chloride ER 10 MEQ Oral [...] 180 Blister Dosing Unit 3 4 Active Trelegy Ellipta 100-62.5-25 MCG/ACT Aerosol Powder Breath Activated (Fluticasone-Umecl idinium-Vilanterol ) Inhale 1 Puff by mouth in the morning. 180 Blister Dosing Unit 3 4 06/01/20 24 Discontinu ed(Refill) documented as of this encounter (statuses as of 06/01/2024) Active Problems Problem Noted Date Diagnosed Date COPD, group D, by GOLD 2017 classification 11/04 Overview: Per COPD GOLD Classification shelter current use of anticoagulant therapy 0 2023 Longstanding persistent atrial fibrillation 06/29 Hypertension goal BP (blood pressure) < 130/80 0 07/17/2023 Dyslipidemia, goal LDL below 70 07/17/2023 Body mass index (BMI) of 40.0 to 44.9 in adult 0 07/08/2023 Overview: Per Obesity protocol Atherosclerosis of [place] co 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 Jardiance) Remote Patient Monitoring Vendor: [facility] [place] Device(s): Connected Scale Continuous Monitoring [...] as of this encounter (statuses as of 06/01/2024) Resolved Problems Problem Noted Date Diagnosed Date [...] Classes - JULIA Class D - Inhaled Oaoqukwpjsewkc-XRFK-RZBX Combination Inhaler (Trellegy) Remote Patient Monitoring Vendor: [facility] Device(s): Continuous Monitoring Device Traditional Scale Self-Management plan High frequency nebulizer treatments every 4-6 hours around the clock Exacerbation plan Chest Xray Additional Comments: On continuous o2 2-3lpm Bipap at night Atherosclerosis of [place] co 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 pectoris 07/05/2023 08/29/2023 Dyspnea 07/04/2023 08/13/2023 Occupational exposure in workplace 07/04/2023 02/14/2024 Chronic congestive heart failure 06/08/2023 07/05/2023 COPD, severe 06/08/2023 07/11/2023 Overview: Per COPD GOLD Classification Chronic hypoxemic respiratory failure 06/08/2023 07/04/2023 Chronic respiratory failure with hypoxia, on home oxygen therapy 06/08/2023 08/29/2023 Diabetes mellitus without complication 06/08/2023 08/29/2023 documented as of this encounter (statuses as of 06/01/2024) Immunizations Name Administration Dates Next Due Pneumococcal [...] encounter Miscellaneous Notes * Telephone Encounter - Salima Crane MD - 06/01/2024 7:59 AM EDTSigned Prescriptions: Disp Refills Trelegy Ellipta 100-62.5-25 MCG/ACT Aeroso*180 Bl*3 Sig: Inhale 1 Puff by mouth in the morning.Authorizing Provider: SALIMA CRANE documented in this encounter Plan of Treatment Upcoming Encounters Date Type Department Care Team (Late st Contact Info) Description 06/01/2024 10:15 AM EDT Scheduled Telephone [facility] [place], [place] [address] [place] [address] Coordinator, [facility] [address] [place] [address] 06/01/2024 11:40 AM EDT Office Visit [facility] [address] [place] [phone] Salima Crane MD [address] [place] [address] 06/02/2024 10:15 AM EDT Scheduled Telephone [facility] [address] [place] [address] Coordinator, [facility] [address] [place] [address] 06/02/2024 1:00 PM EDT Office Visit Orthopaedics [facility] [address] [place] [address] Steffanie Alfaro PA-C [address] [place] [address] 06/03/2024 12:30 PM EDT Home Visit [facility] at [facility] [address] [place] [address] Michelle Kim, RN [address] [place] [address] 07/06/2024 11:00 AM EDT Office Visit [facility]opaedics [facility] [place] [address] Cm Dawson, DO [address] [place] [address] 08/10/2024 12:20 PM EDT Office Visit [facility] [address] [place] [phone] Salima Crane MD [address] [place] [address] 09/02/2024 3:00 PM EST Office Visit [facility] C[facility] [place] [phone] Audrey Lee, [address] [place] [address] Health Maintenance Due Date Last Done Comments Alpha-1 Antitrypsin 1974 Hepatitis C Screening 1974 DTaP,Tdap,and Td Vaccines (1 - Tdap) 1975 Cologuard 2001 Colonoscopy 2001 Colorectal Cancer Screening 2001 Fecal Occult Blood Test 2001 Sigmoidoscopy 2001 AAA Screening 2021 COVID-19 Vaccine (24 season) 2023 Diabetic Foot Exam 06/21/2024 06/21/2023 [...] filedocumented as of this encounter Care Teams Research Program Manager Relationship Specialty Start Date End Date Salima Crane MD [address] [place] [address] PCP - General Internal Medicine 06/04/23 documented as of this encounter
--- OUTSIDE RECORDS SUMMARY | 2024-07-21 02:01 | External Medical Summary ---
Author Name Unknown Address Unknown Organization K09[facility] [place] [address] Laboratory Report Ordering Provider Test Date Status KAYLA TRUJILLO 05/27/2024 05:40:38 Final Observation Date Value Abnormality Reference (Units ) Status WBC, Total 05/27/2024 05:40:38 8.46 4.00-10.8 0 (K/uL) Final RBC 05/27/2024 05:40:38 3.83 4.50-5.25 (M/uL) Final Hemoglobin 05/27/2024 05:40:38 11.1 Below low normal 14 .0-16.8 (g/dL) Final HCT 05/27/2024 05:40:38 34.7 Below low normal 40. 0-48.4 (%) Final MCV 05/27/2024 05:40:38 90.6 82.0-99.5 (fL) Final MCH 05/27/2024 05:40:38 29.0 27.0-34.0 (pg) Final MCHC 05/27/2024 05:40:38 32.0 32.0-36.0 (g/dL) Final RDW 05/27/2024 05:40:38 16.3 11.5-15.5 (%) Final Platelets 05/27/2024 05:40:38 309 140-400 (K /uL) Final MPV 05/27/2024 05:40:38 10.7 6.6-11.1 ( fL) Final Performing Location [facility] [place] [address]
--- OUTSIDE RECORDS SUMMARY | 2024-07-21 02:01 | External Medical Summary | Summary of Care ---
Author Name Unknown Organization [facility] Address [address] [place] [address] Phone [phone] Care Team Providers Care Lead Blender Name Role Phone Charley Crane MD Primary Care Provider [phone] Reason for Visit * Reason Onset Date Comments Order Request 05/31/2024 Encounter Details Date Type Department Care Team (Late st Contact Info) Description 05/31/[address] 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 Longstanding persistent atrial fibrillation 06/29 Hypertension goal BP (blood pressure) < 130/80 0 07/17/2023 Dyslipidemia, goal LDL below 70 07/17/2023 Body mass index (BMI) of 40.0 to 44.9 in adult 0 07/08/2023 Overview: Per Obesity protocol Atherosclerosis of [place] co 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 pectoris 07/05/2023 [...] Classes - JULIA Class D - Inhaled Zgerqxubngocfo-SVSE-MRWT Combination Inhaler (Trellegy) Remote Patient Monitoring Vendor: [facility] Device(s): Continuous Monitoring Device Traditional Scale Self-Management plan High frequency nebulizer treatments every 4-6 hours around the clock Exacerbation plan Chest Xray Additional Comments: On continuous o2 2-3lpm Bipap at night Atherosclerosis of [place] co 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 pectoris 07/05/2023 [...] Telephone Encounter - Charley Crane MD - 06/01/2024 11:45 AM EDT For home health order, pt will need to see me today * Telephone Encounter - Lisa Robbins LPN - 06/01/2024 9:46 AM EDT See below and advise thank you. Wrong pool * Telephone Encounter - Monisha Soriano OSA - 05/31/2024 10:05 AM EDT An order was requested for this patient. Name of Requesting Provider: Order Requested: [facility] home health Diagnosis/Reason for Request: would like to admit pt to home health starting on Saturday If order request is for Mammogram: Is the patient having any breast symptoms? N/A Is there a chance of ? N/A Has the patient had any breast problems in the past? NA What location AND department does the patient wish to have their order completed at? Fax Number, if applicable: If the caller is not a current [...] 10:15 AM EDT Scheduled Telephone [facility] [place], [facility] [address] [place] [address] Coordinator, [facility] [address] [place] [address] 06/02/2024 1:00 PM EDT Office Visit Orthopaedics [facility] [address] [place] [address] Steffanie Alfaro PA-C [address] [place] [address] 06/03/2024 12:30 PM EDT Home Visit [facility] [place], [facility] [address] [place] [address] Michelle Kim, [place] [address] [place] [address] 07/06/2024 11:00 AM EDT Office Visit Orthopaedics [facility] [address] [place] [address] Cm Dawson, DO [address] [place] [address] 08/10/2024 12:20 PM EDT Office Visit [facility] [address] [place] [phone] Charley Crane MD [address] [place] [address] 09/02/2024 3:00 PM EST Office Visit Sleep Disorders Ctr [facility] [address] [place] [phone] Audrey Lee, DO [address] [place] [address] Health Maintenance Due Date Last Done Comments [...] filedocumented as of this encounter Care Teams Lead Blender Relationship Specialty Start Date End Date Charley Crane MD [address] [place] [address] PCP - General Internal Medicine 06/04/23 documented as of this encounter
--- OUTSIDE RECORDS SUMMARY | 2024-07-21 02:01 | External Medical Summary | Summary of Care ---
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*; Longstanding persistent atrial fibrillation (HCC); History of deep venous thrombosis (DVT) of distal vein of left lower extremity Allergies No known active allergiesdocumented as of this encounter (statuses as of 05/28/2024) Medications Medication Sig Dispensed Refills Start Date [...] as of this encounter (statuses as of 05/28/2024) Active Problems Problem Noted Date Diagnosed Date COPD, group D, by GOLD 2017 classification 11/04 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 Jardiance) Remote Patient Monitoring Vendor: [facility] Device(s): Connected [...] as of this encounter (statuses as of 05/28/2024) Resolved Problems Problem Noted Date Diagnosed Date [...] Classes - JULIA Class D - Inhaled Mrdhvzlzfetrfl-XBSD-EPFX Combination Inhaler (Trellegy) Remote Patient Monitoring Vendor: [facility] Device(s): Continuous Monitoring Device Traditional Scale Self-Management plan High frequency nebulizer treatments every 4-6 hours around the clock Exacerbation plan Chest Xray Additional Comments: On continuous o2 2-3lpm Bipap at night Atherosclerosis of [place] co 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 pectoris 07/05/2023 08/29/2023 Dyspnea 07/04/2023 08/13/2023 Occupational exposure in workplace 07/04/2023 02/14/2024 Chronic congestive heart failure 06/08/2023 07/05/2023 COPD, severe 06/08/2023 07/11/2023 Overview: Per COPD GOLD Classification Chronic hypoxemic respiratory failure 06/08/2023 07/04/2023 Chronic respiratory failure with hypoxia, on home oxygen therapy 06/08/2023 08/29/2023 Diabetes mellitus without complication 06/08/2023 08/29/2023 documented as of this encounter (statuses as of 05/28/2024) Immunizations Name Administration Dates Next Due Pneumococcal [...] of this encounter Progress Notes * Isabel Li, [facility] - 05/28/2024 11:59 AM EDT Noted, pt anticipated to d/c this weekend. [facility] will follow up Saturday to confirm. Isabel Li Rp, Pharm.D. Clinical Pharmacist [facility] ([facility]) [phone] 05/28/2024,11:59 AM * Kristina Faust PHARM Tech - 05/28/2024 11:30 AM EDT Telepharm [facility] Follow Up Bala Coronado Jr. [facility] ([phone]) Called Facility spoke to Nurse Ijeoma . Discharge planned for 05/30 . Pharmacist to follow up withpatient/facility . Additional Information Provided by facility: Pt is planning to be discharge to home with Son and HH services. Last INR 7/30 - 2.5 Next INR 8/2 Dosing at time of call: 10mg MWF, 15mg all other days. Thank you, Kristina Faust Pot Puller [facility] ([facility]) 05/28/2024, 11:30 AM documented in this encounter Plan of Treatment Upcoming Encounters Date Type Department Care Team (Late st Contact Info) Description 05/28/2024 2:15 PM EDT Office Visit Interventional Pain Center, [facility] [address] [place] [address] Johnathan Ferrer DO [address] [place] [phone] 06/01/2024 10:15 AM EDT Scheduled Telephone [facility] [place], [facility] [address] [place] [address] Coordinator, [facility] [address] [place] [address] 06/02/2024 10:15 AM EDT Scheduled Telephone [facility], [facility] [address] [place] [address] Coordinator, [facility] [address] [place] [address] 06/02/2024 1:00 PM EDT Office Visit [facility] [address] [facility] [place] [address] Steffanie Alfaro PA-C [facility] [place] [address] 06/03/2024 12:30 PM EDT [facility] Visit [facility], [facility] [address] [place] [address] Michelle Kim RN [facility] [place] [address] 07/06/2024 11:00 AM EDT Office Visit [facility] [address] [facility] [place] [address] Cm Dawson, DO 132 [facility] [place] [address] 08/10/2024 12:20 PM EDT Office Visit [place] [address] [place] [phone] Charley Crane MD [address] [place] [address] 09/02/2024 3:00 PM EST Office Visit Sleep Disorders [facility] 132 [facility] [place] [phone] Audrey Lee, 132 [facility] [place] [address] Health Maintenance Due Date Last Done Comments [...] PAST YEAR FOR COPD 05/10/2025 05/10/2024 GFR 05/27/2025 05/27/2024, 04/28, 02/10/2024, Additional history exists Pneumococcal Vaccine: 65+ Years [...] as of this encounter Visit Diagnoses Diagnosis residential current use of anticoagulant therapy- Primary Longstanding persistent atrial fibrillation (HCC) History of deep venous thrombosis (DVT) of distal vein of left lower extremity documented in this encounter Care Teams Zanjero Relationship Specialty Start Date End Date Charley Crane MD [address] [place] [address] PCP - General Internal Medicine 06/04/23 documented as of this encounter
--- OUTSIDE RECORDS SUMMARY | 2024-07-21 02:01 | External Medical Summary ---
Author Name Unknown Address Unknown Organization [facility] [place] [place] [address] Laboratory Report Ordering Provider Test Date Status KAYLA TRUJILLO 05/29/2024 05:39:42 Final Warfarin Therapy
INR: 2 .0-3.0 conventional anticoagulation
INR: 2.5- 3.5 high intensity anticoagulation Observation Date Value Abnormality Reference (Units ) Status PT 05/29/2024 05:39:42 23.1 Above high normal 11 .6-15.2 (seconds) Final INR 05/29/2024 05:39:42 2.0 Above high normal 0. 8-1.2 Final Performing Location [facility] [place] [place] [address]
--- OUTSIDE RECORDS SUMMARY | 2024-07-21 02:01 | External Medical Summary ---
Author Name Unknown Address Unknown Organization [facility] [place] [address] Laboratory Report Ordering Provider Test Date Status KAYLA TRUJILLO 05/27/2024 05:40:38 Final Observation Date Value Abnormality Reference (Units ) Status BUN 05/27/2024 05:40:38 82 Above high normal 6-20 (mg/dL) Final Creatinine 05/27/2024 05:40:38 1.2 0.6-1.2 (mg/dL) Final Glomerular filtration rate/1.73 sq M.predicted [Volume Rate/Area] in Serum, Plasma or Blood by Creatinine-based formula (CKD-EPI) 05/27/2024 05:40:38 70 >=60 (mL/min) Final eGFR is calculated based on the CKD-EPI 2020 equation. Sodium 05/27/2024 05:40:38 130 Below low normal 135 -146 (mmol/L) Final Potassium 05/27/2024 05:40:38 5.4 Above high normal 3. 5-5.1 (mmol/L) Final Cl 05/27/2024 05:40:38 90 Below low normal 98- 107 (mmol/L) Final CO2 05/27/2024 05:40:38 23 22-32 (mmo l/L) Final Anion gap 05/27/2024 05:40:38 17 Above high normal 7- 15 (mmol/L) Final Glucose 05/27/2024 05:40:38 86 70-120 (mg /dL) Final Calcium 05/27/2024 05:40:38 8.9 8.4-10.2 ( mg/dL) Final Performing Location [facility] [place] [address]
--- OUTSIDE RECORDS SUMMARY | 2024-07-21 02:01 | External Medical Summary | Summary of Care ---
Author Name Unknown Organization [facility] [address] [facility] [address] Phone [phone] Care Team Providers Care Club Concierge Name Role Phone Charley Crane MD Primary Care Provider [phone] Reason for Visit * Reason Onset Date Comments [facility]: Maintenance 06/01/2024 Encounter Details Date Type Department Care Team (Late st Contact Info) Description 06/01/2024 10:15 AM EDT Scheduled Telephone [facility], [facility] [address] [facility] [place] [address] Coordinator, [facility] [address] [facility] [place] [address] Allergies No known active allergiesdocumented as of [...] classification 11/04 Overview: Per COPD GOLD Classification longterm current use of anticoagulant therapy 0 2023 Longstanding persistent atrial fibrillation 06/29 Hypertension goal BP (blood pressure) < 130/80 0 07/17/2023 Dyslipidemia, goal LDL below 70 07/17/2023 Body mass index (BMI) of 40.0 to 44.9 in adult 0 07/08/2023 Overview: Per Obesity protocol Atherosclerosis of [place] co 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 pectoris 07/05/2023 [...] Classes - JULIA Class D - Inhaled Ebghtjezmgpifn-POQF-YNRZ Combination Inhaler (Silverllegy) Remote Patient Monitoring Vendor: [facility] Device(s): Continuous Monitoring Device Traditional Scale Self-Management plan High frequency nebulizer treatments every 4-6 hours around the clock Exacerbation plan Chest Xray Additional Comments: On continuous o2 2-3lpm Bipap at night Atherosclerosis of [place] co 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 pectoris 07/05/2023 [...] Telephone Encounter - Isabel Marquez RN - 06/01/2024 1:43 PM EDT [facility] Telephonic Nurse Follow-Up Call [facility] Subprogram: Focused Care Management (3-9 months) Follow Up Call Type: Routine follow up call / Status Check Acute issue requiring follow-up call: Other: SNF DC, call and check on patient Objective: 05/10/2024 4:58 PM 05/05/2024 2:01 PM [...] during acute episode Subjective: Condition Status: UTC-left VM requesting return call Current Concerns: Patient also has PCP today. RNCM home visit scheduled for tomorrow. Disposition: RNCM visit scheduled Future Visits Scheduled: Future Appointments-next 60 days Date/Time Provider Specialty Dept Phone 06/02/2024 10:15 AM Coordinator, Xiomara Sunshine [facility] [phone] 06/02/2024 1:00 PM (Arrive by 12:45 PM) Steffanie Alfaro PA-C Orthopedics [phone] 06/03/2024 12:30 PM Michelle Kim RN [facility] [phone] 07/06/2024 11:00 AM (Arrive by 10:45 AM) Cm Dawson DO Orthopedics [phone] 08/10/2024 12:20 PM (Arrive by 12:05 PM) Charley Crane MD Family Medicine [phone] 09/02/2024 3:00 PM (Arrive by 2:45 PM) Audrey Lee DO Sleep Disorders [phone] Isabel Marquez RN documented in this encounter Plan of Treatment Upcoming Encounters Date Type Department Care Team (Late st Contact Info) Description 06/02/2024 10:15 AM EDT Scheduled Telephone [facility] [place], [address] [place] [address] Coordinator, [facility] [address] [place] [address] 06/02/2024 1:00 PM EDT [facility] [place] [address] Steffanie Alfaro PA-C [address] [place] [address] 06/03/2024 12:30 PM EDT Home Visit [facility], [facility] [address] [place] [address] Michelle Kim RN [address] [place] [address] 07/06/2024 11:00 AM EDT Office Visit [facility] [address] [facility] [place] [address] Cm Dawson, DO 132 [facility] [place] [address] 08/10/2024 12:20 PM EDT Office Visit [place] [address] [place] [phone] Charley Crane MD [address] [place] [address] 09/02/2024 3:00 PM EST Office Visit Sleep Disorders [facility] [place] [phone] Audrey Lee, [address] [place] [address] Health Maintenance Due Date Last Done Comments [...] FOR COPD 05/10/2025 05/10/2024 GFR 05/29/2025 05/29/2024, 07/10/2023, 05/20/2024, Additional history exists Pneumococcal Vaccine: 65+ [...] filedocumented as of this encounter Care Teams Club Concierge Relationship Specialty Start Date End Date Charley Crane MD [address] [place], [place] [phone] PCP - General Internal Medicine 06/04/23 documented as of this encounter
--- OUTSIDE RECORDS SUMMARY | 2024-07-21 02:01 | External Medical Summary | Summary of Care ---
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 Jardiance) Remote Patient Monitoring Vendor: [facility] Device(s): Connected Scale Continuous Monitoring Device Self [...] Classes - JULIA Class D - Inhaled Rvfquijhqkmflr-AQMZ-PTEL Combination Inhaler (Trellegy) Remote Patient Monitoring Vendor: [facility] Device(s): Continuous Monitoring Device Traditional Scale Self-Management plan High frequency nebulizer treatments every 4-6 hours around the clock Exacerbation plan Chest Xray Additional Comments: On continuous o2 2-3lpm Bipap at night Atherosclerosis of [place] co ronary artery [...] this encounter Progress Notes * Isabel Li, [facility] - 06/01/2024 3:53 PM EDT Medication Therapy Disease Management - Anticoagulation Patient: Bala Coronado JrErlin | : 1955 Subjective Contacts Type Contact Phone/Fax 06/01/2024 03:54 PM EDT Phone (Outgoing) Bala Coronado Jr. (Self) [phone] (M) Left Message Patient-Reported Symptoms: Patient Findings Positives: Other complaints Comments: PT discharged from [facility] to home. Warfarin was managed in house while admitted.Per facility, Last INR 30 - 2.5 Next INR / Dosing at time of call: 10mg MWF, 15mg all other days. Objective Current Warfarin Dose As of 06/01/2024 Warfarin maintenance plan: 10 mg (10 mg x 1) every Tue, Lucrecia, Sat; 15 mg (10 mg x 1.5) all other days INR Result As of 06/01/2024 INR goal: 2.0-3.0 INR used for dosin.0 (05/29/2024) Assessment & Plan Warfarin Plan As of 06/01/2024 Full warfarin instructions: 10 mg every Mon, Wed, Fri; 15 mg all other days Next INR check: 06/04/2024 Repeat PT/INR in 4 days(s) Weekly dose: not changed Additional Dosing Information: Description [facility] - Warfarin NOT included I spent a total of 10-19 minutes (exact time 10 mins) on the date of service in preparation, delivery, and documentation of the care provided to Bala Coronado Jr. excluding any time spent in the performance of separately billed services or time spent by another provider/QHP. Isabel Li RPh Clinical Pharmacist 06/01/2024, 3:53 PM documented in this encounter Plan of Treatment Upcoming Encounters Date Type Department Care Team (Late st Contact Info) Description 06/02/2024 10:15 AM EDT Scheduled Telephone [facility] [place], [facility] [address] [place] [address] Coordinator, [facility] [address] [place] [address] 06/02/2024 1:00 PM EDT Office Visit Orthopaedics [facility] [address] [place] [address] Steffanie Alfaro PA-C [address] [place] [address] 06/03/2024 12:30 PM EDT Home Visit [facility], [facility] [address] [place] [address] Michelle Kim RN [address] [place] [address] 06/04/2024 6:00 PM EDT Anticoagulation [facility], [facility] Peace [address] [place] [address] [place] [address] [place] [address] 07/06/2024 11:00 AM EDT Office Visit Orthopaedics [facility] [address] [place] [address] Cm Dawson, DO [address] [place] [address] 08/10/2024 12:20 PM EDT Office Visit [facility] [address] [place] [facility] [place] [phone] Charley Crane MD [address] [place] [address] 09/02/2024 3:00 PM EST Office Visit Sleep Disorders 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
--- OUTSIDE RECORDS SUMMARY | 2024-07-21 02:01 | External Medical Summary | Summary of Care ---
Author Name Unknown Organization [facility] Address [address] [facility] [place] [address] Phone [phone] Care Team Providers Care Kiss Machine Operator Name Role Phone Charley Crane MD Primary Care Provider [phone] Reason for Visit * Reason Comments Follow Up 1st inj euflexxa AMBER Had to finish antibiotics * Precert (Within 30 days (routine)) - Authorized Specialty Diagnoses / Procedures Referred By Karlie cobos Referred To Contact Orthopedics Diagnoses Bilateral primary osteoarthritis of knee Procedures [place] GEL-SYN INJECTION 0.1 MG Steffanie Alfaro PA-C [address] [place] [address] Steffanie Alfaro PA-C [address] [place] [address] Referral ID Status Reason Start Date Expiration Date V isits Requested Visits Authorized [id number] Authorized Precert 04/08/2024 10/27/2099 999 [id number] Encounter Details Date Type Department Care Team (Latest Contact Info) Description 05/26/2024 2:00 PM EDT Office Visit Orthopaedics [facility] [address] [place] [address] Steffanie Alfaro PA-C [address] [place] [address] Primary osteoarthritis of both knees* Allergies No [...] 07/08/2023 Overview: Per Obesity protocol Atherosclerosis of [place] co 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 Jardiance) Remote Patient Monitoring Vendor: [facility] Device(s): Connected Scale Continuous Monitoring Device Self [...] Classes - JULIA Class D - Inhaled Dksqtdmaekwtmp-INGO-VSEZ Combination Inhaler (Silvergoran) Remote Patient Monitoring Vendor: [facility] Device(s): Continuous Monitoring Device Traditional Scale Self-Management plan High frequency nebulizer treatments every 4-6 hours around the clock Exacerbation plan Chest Xray Additional Comments: On continuous o2 2-3lpm Bipap at night Atherosclerosis of h[place] co 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 pectoris 07/05/2023 [...] Progress Notes * Steffanie Alfaro PA-C - 05/26/2024 1:56 PM EDT Bala Coronado Jr. [id number] 05/26/2024 Here today for 1st injection of Euflexxa for the right and left knee. Prior series was completed on10/29/2023 he would like to begin another series today. Patient was recently hospitalized for COPD exacerbation and CHF he states he is overall feeling better in his currently at [facility]. No questions concerns complaints otherwise [...] ice and resolve within 24 hours. Steffanie Aflaro PA-C Orthopaedics [facility] 132 [facility] [place] [address] Orthopedic Sports Medicine Surgery 05/26/2024 1:56 PM This chart was completed in part utilizing [employer] Speech Voice Recognition Software. Grammatical errors, random [...] Centralized Clinical Pharmacy Services, Oscar Peace [address] [place] [address] [place] [address] [place] [address] 05/28/2024 2:15 PM EDT Office Visit Interventional Pain Center, [facility] 132 [facility] [place] [address] Johnathan Ferrer, 132 [facility] [place] [phone] 06/02/2024 1:00 PM EDT Office Visit [facility]opaedics [facility] [place] [address] Steffanie Alfaro PA-C [address] [place] [address] 07/06/2024 11:00 AM EDT Office Visit Orthopaedics [facility] 132 [facility] [place] [address] Cm Dawson, DO 132 [facility] [place] [address] 08/10/2024 12:20 PM EDT Office Visit [place] [address] [place] [phone] Charley Crane MD [address] [place] [address] 09/02/2024 3:00 PM EST Office Visit [facility] 132 [facility] [place] [phone] Audrey Lee, DO 132 [facility] [place] [address] Health Maintenance Due Date Last Done Comments [...] 20 mg 20 mg, Intra-Articular, ONCE, On Sat05/26/24 at 1445, For 1 dose Given 05/26/2024 2:13 PM EDT 20 mg Knee Right Sodium Hyaluronate (Viscosup) (Euflexxa/Hyalgan) 20 MG/2ML inj 20 mg 20 mg, Intra-Articular, ONCE, On Sat05/26/24 at 1445, For 1 dose Given 05/26/2024 2:13 PM EDT 20 mg Knee Left documented in this encounter Care Teams Kiss Machine Operator Relationship Specialty Start Date End Date Charley Crane MD [address] [place] [address] PCP - General Internal Medicine 06/04/23 documented as of this encounter
--- OUTSIDE RECORDS SUMMARY | 2024-07-21 02:02 | External Medical Summary ---
Author Name Unknown Address Unknown Organization [facility] [place] [address] Laboratory Report Ordering Provider Test Date Status KAYLA TRUJILLO 05/25/2024 05:37:32 Final Warfarin Therapy
INR: 2 .0-3.0 conventional anticoagulation
INR: 2.5- 3.5 high intensity anticoagulation Observation Date Value Abnormality Reference (Units ) Status PT 05/25/2024 05:37:32 29.3 Above high normal 11 .6-15.2 (seconds) Final INR 05/25/2024 05:37:32 2.7 Above high normal 0. 8-1.2 Final Performing Location [facility] [place] [address]
--- OUTSIDE RECORDS SUMMARY | 2024-07-21 02:02 | External Medical Summary ---
Author Name Unknown Address Unknown Organization [facility] [place] [address] Laboratory Report Ordering Provider Test Date Status KAYLA TRUJILLO 05/22/2024 05:37:23 Final Warfarin Therapy
INR: 2 .0-3.0 conventional anticoagulation
INR: 2.5- 3.5 high intensity anticoagulation Observation Date Value Abnormality Reference (Units ) Status PT 05/22/2024 05:37:23 25.1 Above high normal 11 .6-15.2 (seconds) Final INR 05/22/2024 05:37:23 2.3 Above high normal 0. 8-1.2 Final Performing Location [facility] [place] [address]
--- OUTSIDE RECORDS SUMMARY | 2024-07-21 02:02 | External Medical Summary | Summary of Care ---
Author Name Unknown Organization [facility] Address [address] [place] [address] Phone [phone] Care Team Providers Care Tax Adjuster Name Role Phone Charley Crane MD Primary Care Provider [phone] Encounter Details Date Type Department Care Team (Late st Contact Info) Description 05/19/2024 Population Health External Data Unspecified Department Allergies No known active allergiesdocumented as of this encounter (statuses as of 05/22/2024) Medications Medication Sig Dispensed Refills Start Date [...] by mouth every other day. 45 Capsule 01/20/2024 Active Spironolactone 25 MG Oral Tablet (Aldactone) Take 1 Tablet by mouth in the morning. 90 Tablet 01/20/2024 Active Torsemide 20 MG Oral Tablet (Demadex) Take 2 tablets by mouth once daily 180 Tablet 01/20/2024 Active Trelegy Ellipta 100-62.5-25 MCG/ACT Aerosol Powder Breath Activated (Fluticasone-Umecl idinium-Vilanterol ) Inhale 1 Puff by mouth in the morning. 180 Blister Dosing Unit 01/20/2024 Active Warfarin Sodium 10 MG Oral Tablet (Coumadin) Take 1 to 1.5 tablets by mouth every day in the evening or as directed by the anticoagulation clinic. 100 Tablet 3 01/20/2024 Active Albuterol Sulfate HFA 108 (90 Base) MCG/ACT Inhalation Aerosol Solution Inhale 2 Puffs by mouth every 6 hours as needed for Shortness of Breath or Wheezing. 54 g 01/20/2024 Active Doxycycline Hyclate 100 MG Oral [...] each nostril in the morning. 16 g 02/10/2024 Active Atorvastatin Calcium 80 MG Oral [...] as of this encounter (statuses as of 05/22/2024) Active Problems Problem Noted Date Diagnosed Date COPD, group D, by GOLD 2017 classification 11/04 Overview: Per COPD GOLD Classification [facility] current use of anticoagulant therapy 0 2023 Longstanding persistent atrial fibrillation 06/29 Hypertension goal BP (blood pressure) < 130/80 0 07/17/2023 Dyslipidemia, goal LDL below 70 07/17/2023 Body mass index (BMI) of 40.0 to 44.9 in adult 0 07/08/2023 Overview: Per Obesity protocol Atherosclerosis of [place] 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 pectoris 07/05/2023 [...] or up the stairs") Medication Regimen: Beta Luareano Therapy: Carvedilol ANGEL Inhibitor/ARB Therapy: Enalapril Diuretic therapy: Torsemide Aldactone SGLT2 Inhibitor: empagliflozin (ex. Jardiance) Remote Patient Monitoring Vendor: [facility] [place] Device(s): Connected Scale Continuous Monitoring Device Self [...] as of this encounter (statuses as of 05/22/2024) Resolved Problems Problem Noted Date Diagnosed Date [...] Classes - JULIA Class D - Inhaled Heazdaijmbgskv-MMAZ-ODOE Combination Inhaler (Trellegy) Remote Patient Monitoring Vendor: [facility] Device(s): Continuous Monitoring Device Traditional Scale Self-Management plan High frequency nebulizer treatments every 4-6 hours around the clock Exacerbation plan Chest Xray Additional Comments: On continuous o2 2-3lpm Bipap at night Atherosclerosis of [place] 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 pectoris 07/05/2023 08/29/2023 Dyspnea 07/04/2023 08/13/2023 Occupational exposure in workplace 07/04/2023 02/14/2024 Chronic congestive heart failure 06/08/2023 07/05/2023 COPD, severe 06/08/2023 07/11/2023 Overview: Per COPD GOLD Classification Chronic hypoxemic respiratory failure 06/08/2023 07/04/2023 Chronic respiratory failure with hypoxia, on home oxygen therapy 06/08/2023 08/29/2023 Diabetes mellitus without complication 06/08/2023 08/29/2023 documented as of this encounter (statuses as of 05/22/2024) Immunizations Name Administration Dates Next Due Pneumococcal [...] No 02/10/2024 Does the household have a [facility] source [facility] income? (Household - for ages [...] Care Team (Late st Contact Info) Description 05/26/2024 1:30 PM EDT Scheduled Telephone [facility], [facility] [address] [place] [address] Crystal Chadwick CM [address] [facility] [place] [address] 05/26/2024 2:00 PM EDT Office Visit Orthopaedics [facility] [address] [place] [address] Steffanie Alfaro PA-C [address] [place] [phone] 05/28/2024 7:00 AM EDT Anticoagulation [facility], Oscar Peace [address] [place] [address] [place] [address] [facility], [address] [place] [address] 05/28/2024 2:15 PM EDT Office Visit Interventional Pain Center, [facility] [address] [place] [address] Johnathan Ferrer, DO [address] [place] [phone] 07/06/2024 11:00 AM EDT Office Visit Orthopaedics [facility] [address] [place] [address] Cm Dawson, DO [address] [place] [address] 08/10/2024 12:20 PM EDT Office Visit [place] [address] [place] [phone] Charley Crane MD [address] [place] [address] 09/02/2024 3:00 PM EST Office Visit Sleep Disorders Ctr [facility] [address] [place] [phone] Audrey Lee, DO [address] [place] [phone] Health Maintenance Due Date Last Done Comments [...] filedocumented as of this encounter Care Teams Tax Adjuster Relationship Specialty Start Date End Date Charley Crane MD [address] [place] [facility] [place] [address] PCP - General Internal Medicine 06/04/23 documented as of this encounter
--- OUTSIDE RECORDS SUMMARY | 2024-07-21 02:02 | External Medical Summary | Summary of Care ---
Author Name Unknown Organization [facility] Address [address] [place] [address] Phone [phone] Care Team Providers Care Head Tennis Professional Name Role Phone Charley Crane MD Primary Care Provider [phone] Encounter Details Date Type Department Care Team (Late st Contact Info) Description 05/22/2024 Population Health External Data Unspecified Department Allergies [...] classification 11/04 Overview: Per COPD GOLD Classification residential current use of anticoagulant therapy 0 2023 Longstanding persistent atrial fibrillation 06/29 Hypertension goal BP (blood pressure) < 130/80 0 07/17/2023 Dyslipidemia, goal LDL below 70 07/17/2023 Body mass index (BMI) of 40.0 to 44.9 in adult 0 07/08/2023 Overview: Per Obesity protocol Atherosclerosis of [place] 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 Jardiance) Remote Patient Monitoring Vendor: [facility] [place] Device(s): Connected Scale Continuous Monitoring Device Self [...] Classes - JULIA Class D - Inhaled Deawtpeigexyjl-GIGC-HRTC Combination Inhaler (Trellegy) Remote Patient Monitoring Vendor: [facility] Device(s): Continuous Monitoring Device Traditional Scale Self-Management plan High frequency nebulizer treatments every 4-6 hours around the clock Exacerbation plan Chest Xray Additional Comments: On continuous o2 2-3lpm Bipap at night Atherosclerosis of [place] 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 pectoris 07/05/2023 [...] No 02/10/2024 Does the household have a [facility] source of income? (Household - for ages [...] PM EDT Scheduled Telephone [facility], [facility] [address] [place] [address] Crystal Chadwick CM [address] [facility] [place] [address] 05/26/2024 2:00 PM EDT Office Visit Orthopaedics [facility] [address] [place] [address] Steffanie Alfaro PA-C [address] [place] [phone] 05/28/2024 7:00 AM EDT Anticoagulation [facility], Oscar Peace [address] [place] [address] [place] [address] [facility], [address] [place] [address] 05/28/2024 2:15 PM EDT Office Visit Interventional Pain Center, [facility] [address] [place] [address] Johnathan Ferrer, DO [address] [place] [phone] 07/06/2024 11:00 AM EDT Office Visit Orthopaedics [facility] [address] [place] [address] Cm Dawson, DO [address] [place] [address] 08/10/2024 12:20 PM EDT Office Visit [place] [address] [place] [phone] Charley Crane MD [address] [place] [address] 09/02/2024 3:00 PM EST Office Visit Sleep Disorders Ctr [facility] [address] [place] [phone] Audrey Lee, DO [address] [place] [address] Health Maintenance Due Date Last Done Comments [...] filedocumented as of this encounter Care Teams Head Tennis Professional Relationship Specialty Start Date End Date Charley Crane MD [address] [place] [facility] [place] [address] PCP - General Internal Medicine 06/04/23 documented as of this encounter
--- OUTSIDE RECORDS SUMMARY | 2024-07-21 02:02 | External Medical Summary | Summary of Care ---
Author Name Unknown Organization [facility] Address [address] [place] [address] Phone [phone] Care Team Providers Care Warp Hand Name Role Phone Charley Crane MD Primary Care Provider [phone] Reason for Visit * Reason Comments eRx-Medication Refill Encounter Details Date Type Department Care Team (Late st Contact Info) Description 05/23/2024 Refill [facility] [address] [place] [phone] Charley Crane MD [address] [place], [place] [phone] Allergies No known active allergiesdocumented as of this encounter (statuses as of 05/25/2024) Medications Medication Sig Dispensed Refills Start Date [...] face once daily 30 g 1 08/13/20 Active Zoster Vac Recomb Adjuvanted 50 MCG/0.5ML Intramuscular Suspension Reconstituted (Shingrix) Inject 0.5 mL into a large muscle now and repeat dose in 60 to 180 days 1 Each 1 11/13/20 23 Active Zoster Vac Recomb Adjuvanted 50 MCG/0.5ML Intramuscular Suspension Reconstituted (Shingrix) Inject 0.5 mL into a large muscle now and repeat dose in 60 to 180 days 1 Each 11/26/19 Active guaiFENesin ER 600 MG Oral Tablet Extended Release 12 Hour (Mucinex) Take 1 Tablet by mouth 2 times a day. Active Empagliflozin 10 MG Oral Tablet (Jardiance) Take 1 Tablet by mouth in the morning. 90 Tablet 3 01/20/20 Active Enalapril Maleate 10 MG Oral Tablet (Vasotec) Take 1 Tablet by mouth in the morning. 90 Tablet 01/20/20 24 Active Isosorbide Mononitrate ER 60 MG Oral Tablet Extended Release 24 Hour (Imdur)Indication s:Hypertension goal BP (blood pressure) < 130/80 Take 1 Tablet by mouth in the morning. 90 Tablet 01/20/20 24 Active Spironolactone 25 MG Oral Tablet (Aldactone) Take 1 Tablet by mouth in the morning. 90 Tablet 01/20/20 24 Active Torsemide 20 MG Oral Tablet (Demadex) Take 2 tablets by mouth once daily 180 Tablet 3 01/20/20 Active Trelegy Ellipta 100-62.5-25 MCG/ACT Aerosol Powder Breath Activated (Fluticasone-Umec lidinium-Vilanter ol) Inhale 1 Puff by mouth in the morning. 180 Blister Dosing Unit 01/20/20 Active Warfarin Sodium 10 MG Oral Tablet [...] BREATH 360 mL 3 05/12/20 24 Active Potassium Chloride ER 10 MEQ Oral Capsule Extended Release Take 1 Capsule by mouth every other day. 45 Capsule 1 05/22/20 24 Active Pantoprazole Sodium 40 MG Oral Tablet Delayed Release (Protonix) TAKE 1 TABLET BY MOUTH EVERY MORNING 90 Tablet 1 05/25/20 24 Active Pantoprazole Sodium 40 MG Oral Tablet Delayed Release (Protonix) Take 1 Tablet by mouth in the morning. 90 Tablet 3 01/20/20 24 024 Discontinued documented as of this encounter (statuses as of 05/25/2024) Active Problems Problem Noted Date Diagnosed Date COPD, group D, by GOLD 2017 classification 11/04 Overview: Per COPD GOLD Classification senior living current use of anticoagulant therapy 0 2023 Longstanding persistent atrial fibrillation 06/29 Hypertension goal BP (blood pressure) < 130/80 0 07/17/2023 Dyslipidemia, goal LDL below 70 07/17/2023 Body mass index (BMI) of 40.0 to 44.9 in adult 0 07/08/2023 Overview: Per Obesity protocol Atherosclerosis of [place] co 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 Jardiance) Remote Patient Monitoring Vendor: [facility] [place] Device(s): Connected Scale Continuous Monitoring Device Self [...] as of this encounter (statuses as of 05/25/2024) Resolved Problems Problem Noted Date Diagnosed Date [...] Classes - JULIA Class D - Inhaled Zonrfhdadeowiv-ITEG-MHGL Combination Inhaler (Trellegy) Remote Patient Monitoring Vendor: [facility] Device(s): Continuous Monitoring Device Traditional Scale Self-Management plan High frequency nebulizer treatments every 4-6 hours around the clock Exacerbation plan Chest Xray Additional Comments: On continuous o2 2-3lpm Bipap at night Atherosclerosis of [place] co 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 pectoris 07/05/2023 08/29/2023 Dyspnea 07/04/2023 08/13/2023 Occupational exposure in workplace 07/04/2023 02/14/2024 Chronic congestive heart failure 06/08/2023 07/05/2023 COPD, severe 06/08/2023 07/11/2023 Overview: Per COPD GOLD Classification Chronic hypoxemic respiratory failure 06/08/2023 07/04/2023 Chronic respiratory failure with hypoxia, on home oxygen therapy 06/08/2023 08/29/2023 Diabetes mellitus without complication 06/08/2023 08/29/2023 documented as of this encounter (statuses as of 05/25/2024) Immunizations Name Administration Dates Next Due Pneumococcal [...] encounter Miscellaneous Notes * Telephone Encounter - Dolores Nicole [facility] - 05/25/2024 5:46 AM EDTSigned Prescriptions: Disp Refills Pantoprazole Sodium 40 MG Oral Tablet Cheryl*90 Tab*1 Sig: TAKE 1 TABLET BY MOUTH EVERY MORNING Authorizing Provider: CHARLEY CRANE Ordering User: DOLORES NICOLE * Telephone Encounter - Dolores Nicole RPh - 05/25/2024 5:46 AM EDT Patient is switching pharmacies. Reissued balance of refills on current prescription(s) to [facility] Thank you, Dolores Nicole, MadysonD. Clinical Pharmacist [facility] ([facility]) 05/25/2024, 5:46 AM documented in this encounter Plan of Treatment Upcoming Encounters Date Type Department Care Team (Late st Contact Info) Description 05/26/2024 1:30 PM EDT Scheduled Telephone [facility], [facility] [address] [facility] [place] [address] Crystal Chadwick, [address] [facility] [place] [address] 05/26/2024 2:00 PM EDT Office Visit Orthopaedics [facility] [address] [place] [address] Steffanie Alfaro PA-C [address] [place] [address] 05/28/2024 7:00 AM EDT Anticoagulation Centralized Clinical Pharmacy Services, Oscar Peace [address] [place] [address] [place] [address] [place] [address] 05/28/2024 2:15 PM EDT Office Visit Interventional Pain Center, [facility] [address] [place] [address] Johnathan Ferrer, DO [address] [place] [phone] 07/06/2024 11:00 AM EDT Office Visit Orthopaedics [facility] [address] [facility] [place] [address] Cm Dawson, DO [address] [facility] [place] [address] 08/10/2024 12:20 PM EDT Office Visit [place] [address] [place] [phone] Charley Crane MD [address] [place] [address] 09/02/2024 3:00 PM EST Office Visit [facility] Disorders Ctr [facility] [address] [facility] [place] [phone] Audrey Lee, [address] [facility] [place] [address] Health Maintenance Due Date Last Done Comments [...] filedocumented as of this encounter Care Teams Warp Hand Relationship Specialty Start Date End Date Charley Crane MD [address] [place] [address] PCP - General Internal Medicine 06/04/23 documented as of this encounter
--- OUTSIDE RECORDS SUMMARY | 2024-07-21 02:02 | External Medical Summary | Summary of Care ---
Author Name Unknown Organization [facility] Address [address] [place] [address] Phone [phone] Care Team Providers Care Meat Butcher Name Role Phone Charley Crane MD Primary Care Provider [phone] Reason for Visit * Reason Onset Date Comments Other 05/18/2024 Encounter Details Date Type Department Care Team (Late st Contact Info) Description 05/18/2024 Telephone Access Center, [address] *DO NOT REMOVE THIS DEPARTMENT* [place] [address] Services, Scheduling [address] [place] [address] Other Allergies No known active allergiesdocumented as of [...] 180 days 1 Each 1 09/09/20 23 Active Zoster Vac Recomb Adjuvanted 50 MCG/0.5ML Intramuscular Suspension Reconstituted (Shingrix) Inject 0.5 mL into a large muscle now and repeat dose in 60 to 180 days 1 Each 1 11/26/19 Active guaiFENesin ER 600 MG Oral [...] tablets by mouth once daily 180 Tablet 01/20/20 24 Active Trelegy Ellipta 100-62.5-25 MCG/ACT Aerosol Powder Breath Activated (Fluticasone-Umec lidinium-Vilanter ol) Inhale 1 Puff by mouth in the morning. 180 Blister Dosing Unit 01/20/20 Active Warfarin Sodium 10 MG Oral Tablet (Coumadin) Take 1 to 1.5 tablets by mouth every day in the evening or as directed by the anticoagulation clinic. 100 Tablet 01/20/20 24 Active Albuterol Sulfate HFA 108 [...] BREATH 360 mL 3 05/12/20 24 Active Pantoprazole Sodium 40 MG Oral Tablet Delayed Release (Protonix) Take 1 Tablet by mouth in the morning. 90 Tablet 3 01/20/20 24 024 Discontinued Potassium Chloride ER 10 MEQ Oral Capsule Extended Release Take 1 Capsule by mouth every other day. 45 Capsule 3 01/20/20 24 024 Discontinued documented as [...] 07/08/2023 Overview: Per Obesity protocol Atherosclerosis of [place] co 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 Jardiance) Remote Patient Monitoring Vendor: [facility] [place] Device(s): Connected Scale Continuous Monitoring Device Self [...] Classes - JULIA Class D - Inhaled Srcdesxzyffqrm-BLUY-HIPZ Combination Inhaler (Sandro) Remote Patient Monitoring Vendor: [facility] Device(s): Continuous Monitoring Device Traditional Scale Self-Management plan High frequency nebulizer treatments every 4-6 hours around the clock Exacerbation plan Chest Xray Additional Comments: On continuous o2 2-3lpm Bipap at night Atherosclerosis of [place] co 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 pectoris 07/05/2023 [...] encounter Miscellaneous Notes * Telephone Encounter - Steffanie Alfaro PA-C - 05/25/2024 2:16 PM EDT Called patient, wanted to inform me he will be in for injections tomorrow States he finished abx and steroid Steffanie Alfaro PA-C * Telephone Encounter - Heather Sears OSA - 05/19/2024 8:56 AM EDT Pt called back due to missed call from Steffanie, Please call pt back at [phone] when available. * Telephone Encounter - Ning Shanks OSA - 05/19/2024 8:18 AM EDT Pt calling. He is currently in [facility] and will be going to rehab soon. Pt states heneeds to speak with Steffanie about his knee injection appointments, one of which is scheduled for today 05/19/2024 and will be not be able to keep. Please reach to pt at [phone]. * Telephone Encounter - Laila Ly OSA - 05/18/2024 3:24 PM EDT Pts daughter in law calling today. Pt sees Steffanie Alfaro. He [facility] a few days ago and he would like her to call him on his cell phone as they are trying to get him into [facility] [place]. documented in this encounter Plan of Treatment Upcoming Encounters Date Type Department Care Team (Late st Contact Info) Description 05/26/2024 1:30 PM EDT Scheduled [facility]phone [facility], [place] [address] [place] [address] Crystal Chadwick CM [address] [place] [address] 05/26/2024 2:00 PM EDT Office Visit Orthopaedics [address] [place] [address] Steffanie Alfaro PA-C [address] [place] [phone] 05/28/2024 7:00 AM EDT Anticoagulation Centralized Clinical Pharmacy Services, Oscar Peace [address] [place] [address] [place] [address] [facility], [address] [place] [address] 05/28/2024 2:15 PM EDT Office Visit Interventional Pain Center, [facility] [address] [place] [address] Johnathan Ferrer, DO [address] [place] [phone] 07/06/2024 11:00 AM EDT Office Visit Orthopaedics [facility] [address] [place] [address] Cm Dawson, DO [address] [place] [address] 08/10/2024 12:20 PM EDT Office Visit [place] [address] [place] [phone] Charley Crane MD [address] [place] [address] 09/02/2024 3:00 PM EST Office Visit Sleep Disorders Ctr [facility] [address] [place] [phone] Audrey Lee, DO [address] [place] [address] Health Maintenance Due Date Last Done Comments [...] filedocumented as of this encounter Care Teams Meat Butcher Relationship Specialty Start Date End Date Charley Crane MD [address] [place] [address] PCP - General Internal Medicine 06/04/23 documented as of this encounter
--- OUTSIDE RECORDS SUMMARY | 2024-07-21 02:02 | External Medical Summary | Summary of Care ---
Author Name Unknown Organization [facility] Address [address] [place] [address] Phone [phone] Care Team Providers Care Director Health Name Role Phone Charley Crane MD Primary Care Provider [phone] Reason for Visit * Reason Onset Date Comments [facility]: Maintenance 05/26/2024 Encounter Details Date Type Department Care Team (Late st Contact Info) Description 05/26/2024 1:30 PM EDT Scheduled Telephone [facility], [facility] [address] [place] [facility] [place] [address] Crystal Chadwick, [address] [place] [address] Allergies No known active allergiesdocumented as of [...] classification 11/04 Overview: Per COPD GOLD Classification [facility]PC current use of anticoagulant therapy 0 2023 Longstanding persistent atrial fibrillation 06/29 Hypertension goal BP (blood pressure) < 130/80 0 07/17/2023 Dyslipidemia, goal LDL below 70 07/17/2023 Body mass index (BMI) of 40.0 to 44.9 in adult 0 07/08/2023 Overview: Per Obesity protocol Atherosclerosis of [place] co 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 Jardiance) Remote Patient Monitoring Vendor: [facility] [place] [facility] Device(s): Connected Scale [...] Classes - JULIA Class D - Inhaled Lokfmkahuenzre-MZKC-FVWX Combination Inhaler (Silverllegy) Remote Patient Monitoring Vendor: [facility] Device(s): Continuous Monitoring Device Traditional Scale Self-Management plan High frequency nebulizer treatments every 4-6 hours around the clock Exacerbation plan Chest Xray Additional Comments: On continuous o2 2-3lpm Bipap at night Atherosclerosis of [place] co 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 pectoris 07/05/2023 [...] encounter Miscellaneous Notes * Telephone Encounter - Crystal Chadwick CM - 05/26/2024 9:38 AM EDT Call placed to [facility]. Confirmed that patient is still at facility. Transferred to [facility]. LVM requesting a call back Incoming call from TW[facility] at [facility]. Pt scheduled to [facility] home on 05/30. Will place HH referral. CW batsheva JOHN visit and route to care team Crystal Chadwick Electrician Supervisor Airplane [facility] [email or web address] documented in this encounter Plan of Treatment Upcoming Encounters Date Type Department Care Team (Late st Contact Info) Description 05/26/2024 2:00 PM EDT Office Visit Orthopaedics [facility] [address] [place] [address] Steffanie Alfaro PA-C [address] [place] [address] 05/28/2024 7:00 AM EDT Anticoagulation [facility], Oscar Peace [address] [place] [address] [place] [address] [place] [address] 05/28/2024 2:15 PM EDT Office Visit Interventional Pain Center, [facility] [address] [place] [address] Johnathan Ferrer, [address] [place] [phone] 07/06/2024 11:00 AM EDT Office Visit Orthopaedics [facility] [address] [place] [address] Cm Dawson, DO [address] [place] [address] 08/10/2024 12:20 PM EDT Office Visit [address] [place] [address] Charley Crane MD [address] [place] [address] 09/02/2024 3:00 PM EST [facility] [address] [place] [address] Audrey Lee, [address] [place] [address] Health Maintenance Due Date Last Done Comments [...] as of this encounter Care Teams Director Health Relationship Specialty Start Date End Date Charley Crane MD [address] [place] [address] PCP - General Internal Medicine 06/04/23 documented as of this encounter
--- OUTSIDE RECORDS SUMMARY | 2024-07-21 02:02 | External Medical Summary | Summary of Care ---
Author Name Unknown Organization [facility] Address [address] [place] [address] Phone [phone] Care Team Providers Care Flash Oven Operator Name Role Phone Charley Crane MD Primary Care Provider [phone] Reason for Visit * Reason Comments eRx-Medication Refill Encounter Details Date Type Department Care Team (Late st Contact Info) Description 05/22/2024 Refill [facility] [address] [place] [phone] Charley Crane MD [address], [place] [phone] Allergies No known active allergiesdocumented as of [...] in the morning. 90 Tablet 01/20/2024 Active Potassium Chloride ER 10 MEQ [...] classification 11/04 Overview: Per COPD GOLD Classification long-term current use of anticoagulant therapy 0 2023 Longstanding persistent atrial fibrillation 06/29 Hypertension goal BP (blood pressure) < 130/80 0 07/17/2023 Dyslipidemia, goal LDL below 70 07/17/2023 Body mass index (BMI) of 40.0 to 44.9 in adult 0 07/08/2023 Overview: Per Obesity protocol Atherosclerosis of [place] co 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 pectoris 07/05/2023 [...] Jardiance) Remote Patient Monitoring Vendor: [facility] Device(s): [...] Classes - JULIA Class D - Inhaled Viwfrzieziiilr-SPBT-ANFB Combination Inhaler (Sandro) Remote Patient Monitoring Vendor: [facility] Device(s): Continuous Monitoring Device Traditional Scale Self-Management plan High frequency nebulizer treatments every 4-6 hours around the clock Exacerbation plan Chest Xray Additional Comments: On continuous o2 2-3lpm Bipap at night Atherosclerosis of [place] co 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 pectoris 07/05/2023 [...] encounter Miscellaneous Notes * Telephone Encounter - Jose J Saldaña [facility] - 05/22/2024 10:33 AM EDTRefused Prescriptions: Disp Refills Potassium Chloride ER 10 MEQ Oral Capsule *90 Cap*0 Sig: TAKE 1CAPSULE BY MOUTH EVERY MORNINGRefused By: JOSE J SALDAÑA TReason for Refusal: Too soonReason for Refusal Comment: 1 year supply sent to [place] on 01/19 documented in this encounter Plan of Treatment Upcoming Encounters Date Type Department Care Team (Late st Contact Info) Description 05/26/2024 1:30 PM EDT Scheduled Telephone [facility], [facility] [address] [facility] [place] [address] Crystal Chadwick, [address] [place] [address] 05/26/2024 2:00 PM EDT Office Visit Orthopaedics [facility] [address] [place] [address] Steffanie Alfaro PA-C [address] [place] [address] 05/28/2024 7:00 AM EDT Anticoagulation [facility] Clinical Pharmacy Services, [address] [place] [address] [place] [address] 05/28/2024 2:15 PM EDT Office Visit Interventional Pain Center, [facility] [address] [place] [address] Johnathan Ferrer DO [address] [place] [address] 07/06/2024 11:00 AM EDT Office Visit Orthopaedics [facility] [address] [place] [address] Cm Dawson, DO [address] [place] [address] 08/10/2024 12:20 PM EDT Office Visit [facility] [address] [place] [facility] [place] [facility] [phone] Charley Crane MD [address] [place] [address] 09/02/2024 3:00 PM EST Office Visit [facility]tr [facility] [address] [place] [phone] Audrey Lee, DO [address] [place] [address] Health Maintenance Due Date Last Done Comments [...] filedocumented as of this encounter Care Teams Flash Oven Operator Relationship Specialty Start Date End Date Charley Crane MD [address] [place] [address] PCP - General Internal Medicine 06/04/23 documented as of this encounter
--- OUTSIDE RECORDS SUMMARY | 2024-07-21 02:02 | External Medical Summary ---
Author Name Unknown Address Unknown Organization K0G:[facility] [address] [place] [address] Laboratory Report Ordering Provider Test Date Status KAYLA TRUJILLO 05/23/2024 06:10:52 Final Warfarin Therapy
INR: 2 .0-3.0 conventional anticoagulation
INR: 2.5- 3.5 high intensity anticoagulation Observation Date Value Abnormality Reference (Units ) Status PT 05/23/2024 06:10:52 28.4 Above high normal 11 .6-15.2 (seconds) Final INR 05/23/2024 06:10:52 2.6 Above high normal 0. 8-1.2 Final Performing Location [facility] [address] [place] [address]
--- OUTSIDE RECORDS SUMMARY | 2024-07-21 02:02 | External Medical Summary | Summary of Care ---
Author Name Unknown Organization [facility] Address [address] [place] [address] Phone [phone] Care Team Providers Care Quality Inspector Name Role Phone Charley Crane MD Primary Care Provider [phone] Reason for Visit * Reason Onset Date Comments [facility]: Maintenance 05/26/2024 Encounter Details Date Type Department Care Team (Late st Contact Info) Description 05/26/2024 1:30 PM EDT Scheduled Telephone [facility], [facility] [address] [place] [facility] [place] [address] Crystal Chadwick, [address] [place] [facility] [place] [address] Allergies No known active allergiesdocumented as of [...] classification 11/04 Overview: Per COPD GOLD Classification [facility] current use of anticoagulant therapy 0 2023 Longstanding persistent atrial fibrillation 06/29 Hypertension goal BP (blood pressure) < 130/80 0 07/17/2023 Dyslipidemia, goal LDL below 70 07/17/2023 Body mass index (BMI) of 40.0 to 44.9 in adult 0 07/08/2023 Overview: Per Obesity protocol Atherosclerosis of [place] co 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 Confirmed that patient is still at facility. Transferred to [facility] requesting a call back Crystal Chadwick 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 [facility] [email or web address] documented in this encounter Plan of Treatment Upcoming Encounters Date Type Department Care Team (Late st Contact Info) Description 05/26/2024 2:00 PM EDT Office Visit Orthopaedics [facility] [address] [place] [address] Steffanie Alfaro PA-C [address] [place] [address] 05/28/2024 7:00 AM EDT Anticoagulation [facility] Clinical Pharmacy Services, Oscar Kobi [address] [place] [address] [place] [address] [place] [address] 05/28/2024 2:15 PM EDT Office Visit Interventional Pain Center, [facility] [address] [place] [address] Johnathan Ferrer, DO [address] [place] [phone] 07/06/2024 11:00 AM EDT Office Visit Orthopaedics [facility] [address] [place] [address] Cm Dawson, DO [address] [place] [address] 08/10/2024 12:20 PM EDT Office Visit [place] [address] [address] [facility] [phone] Charley Crane MD [address] [place] [address] 09/02/2024 3:00 PM EST Office Visit [facility] [address] [place] [phone] Audrey Lee, [address] [place] [address] Health Maintenance Due Date Last Done Comments [...] filedocumented as of this encounter Care Teams Quality Inspector Relationship Specialty Start Date End Date Charley Crane MD [address] [place] [address] PCP - General Internal Medicine 06/04/23 documented as of this encounter
--- OUTSIDE RECORDS SUMMARY | 2024-07-21 02:02 | External Medical Summary ---
Author Name Unknown Address Unknown Organization K09:[place] [address] Laboratory Report Ordering Provider Test Date Status KAYLA TRUJILLO 05/26/2024 05:39:18 Final Warfarin Therapy
INR: 2 .0-3.0 conventional anticoagulation
INR: 2.5- 3.5 high intensity anticoagulation Observation Date Value Abnormality Reference (Units ) Status PT 05/26/2024 05:39:18 27.4 Above high normal 11 .6-15.2 (seconds) Final INR 05/26/2024 05:39:18 2.5 Above high normal 0. 8-1.2 Final Performing Location [place] [address]
--- OUTSIDE RECORDS SUMMARY | 2024-07-21 02:02 | External Medical Summary | Summary of Care ---
Author Name Unknown Organization [facility] Address [address] [place] [address] Phone [phone] Care Team Providers Care Reimbursement Rep Name Role Phone Charley Crane MD Primary Care Provider [phone] Reason for Visit * Reason Comments eRx-Medication Refill Encounter Details Date Type Department Care Team (Late st Contact Info) Description 05/22/2024 Refill [facility] [address] [place] [phone] Charley Crane MD [address] [place], [place] [phone] Allergies No known active allergiesdocumented as of [...] 07/08/2023 Overview: Per Obesity protocol Atherosclerosis of [place] co 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 Jardiance) Remote Patient Monitoring Vendor: [facility] Device(s): Connected Scale Continuous [...] Classes - JULIA Class D - Inhaled Ygtvpvdyhtutuh-IYUF-UTZR Combination Inhaler (Sandro) Remote Patient Monitoring Vendor: [facility] Device(s): Continuous Monitoring Device Traditional Scale Self-Management plan High frequency nebulizer treatments every 4-6 hours around the clock Exacerbation plan Chest Xray Additional Comments: On continuous o2 2-3lpm Bipap at night Atherosclerosis of [place] co 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 pectoris 07/05/2023 [...] encounter Miscellaneous Notes * Addendum Note - Josi Nice automatic glove former - 05/22/2024 1:48 PM EDTAddended by: JOSI NICE on: 05/22/2024 01:48 PM Modules accepted: Orders * Telephone Encounter - Josi Nice automatic glove former - 05/22/2024 1:48 PM EDT Please reroute Rx to [id number] [place]. Pending Prescriptions: Disp Refills Potassium Chloride ER 10 MEQ Oral Capsule*45 Cap*3 Sig: Take 1 Capsule by mouth every other day. Last Visit: 02/10/2024 (in office), Visit date not found (telemedicine) 08/10/2024 If no future appointments scheduled, and last appointment is greater than a year ago, please schedule patient for a follow-up appointment Last date the medication was ordered: 01/20/24 Patient Phone Numbers Labs: Lab Results Component Value Date/Time CREAT 0.9 05/20/2024 05:38 AM POTASSIUM 4.0 05/20/2024 05:38 AM TSH 2.18 06/21/2023 12:33 PM LDLCALC 84 02/10/2024 01:36 PM ALT 22 02/10/2024 01:36 PM HGBA1C 6.1 (H) 02/10/2024 01:36 PM * Telephone Encounter - Jose J Saldaña [facility] - 05/22/2024 10:33 AM EDTRefused Prescriptions: Disp Refills Potassium Chloride ER 10 MEQ Oral Capsule *90 Cap*0 Sig: TAKE 1 CAPSULE BY MOUTH EVERY MORNINGRefused By: JOSE J SALDAÑA for Refusal: Too soonRedrake forRefusal Comment: 1 year supply sent to [place] on 01/19 documented in this encounter Plan of Treatment Upcoming Encounters Date Type Department Care Team (Late st Contact Info) Description 05/26/2024 1:30 PM EDT Scheduled Telephone [facility], [facility] [address] [place] [address] Crystal Chadwick CM [address] [place] [address] 05/26/2024 2:00 PM EDT Office Visit Orthopaedics [facility] [address] [place] [address] Steffanie Alfaro PA-C [address] [place] [address] 05/28/2024 7:00 AM EDT Anticoagulation [facility], [address] [place] [address] [place] [address] 05/28/2024 2:15 PM EDT Office Visit Interventional Pain Center, [facility] [address] [place] [address] Johnathan Ferrer, [address] [place] [phone] 07/06/2024 11:00 AM EDT Office Visit [facility] [address] [place] [address] Cm Dawson, DO [address] [place] [address] 08/10/2024 12:20 PM EDT Office [facility] [address] [facility] [phone] Charley Crane MD [address] [facility] [place] [address] 09/02/2024 3:00 PM EST Office Visit [facility] Disorders Ctr [facility] [address] [place] [address] Audrey Lee, DO [address] [place] [address] Health Maintenance Due Date Last Done Comments [...] filedocumented as of this encounter Care Teams Reimbursement Rep Relationship Specialty Start Date End Date Charley Crane MD [address] [place] [address] PCP - General Internal Medicine 06/04/23 documented as of this encounter
--- OUTSIDE RECORDS SUMMARY | 2024-07-21 02:03 | External Medical Summary | Summary of Care ---
Author Name Unknown Organization [facility] Address [address] [facility] [address] Phone [phone] Care Team Providers Care Water Treatment Plant Operator Name Role Phone Charley Crane MD Primary Care Provider [phone] Reason for Visit * Reason Onset Date Comments [facility]: Maintenance 05/19/2024 Encounter Details Date Type Department Care Team (Late st Contact Info) Description 05/19/2024 Telephone [facility], [place] [facility] [address] [facility] [place] [address] Region, Nurse [facility] [address] [facility] [place] [address] [facility]: Maintenance Allergies No known active allergiesdocumented as of this encounter (statuses as of 05/19/2024) Medications Medication Sig Dispensed Refills Start Date [...] in the morning. 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 co 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 Jardiance) Remote Patient Monitoring Vendor: [facility] Device(s): Connected Scale Continuous Monitoring Device Self [...] as of this encounter (statuses as of 05/19/2024) Resolved Problems Problem Noted Date Diagnosed Date [...] Classes - JULIA Class D - Inhaled Qpgcniszfklmbl-VFSJ-WTRS Combination Inhaler (Silverllegy) Remote Patient Monitoring Vendor: [facility] Device(s): Continuous Monitoring Device Traditional Scale Self-Management plan High frequency nebulizer treatments every 4-6 hours around the clock Exacerbation plan Chest Xray Additional Comments: On continuous o2 2-3lpm Bipap at night Atherosclerosis of [place] co 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 pectoris 07/05/2023 08/29/2023 Dyspnea 07/04/2023 08/13/2023 Occupational exposure in workplace 07/04/2023 02/14/2024 Chronic congestive heart failure 06/08/2023 07/05/2023 COPD, severe 06/08/2023 07/11/2023 Overview: Per COPD GOLD Classification Chronic hypoxemic respiratory failure 06/08/2023 07/04/2023 Chronic respiratory failure with hypoxia, on home oxygen therapy 06/08/2023 08/29/2023 Diabetes mellitus without complication 06/08/2023 08/29/2023 documented as of this encounter (statuses as of 05/19/2024) Immunizations Name Administration Dates Next Due Pneumococcal [...] encounter Miscellaneous Notes * Telephone Encounter - Veroncia Billings LPN - 05/19/2024 2:35 PM EDT Patient discharging today from [facility] to [facility] rehab Adding to Crystal Chadwick's schedule for 1 week follow up call FYI care team Veronica Billings LPN [facility] 05/19/2024,2:35 PM documented in this encounter Plan of Treatment Upcoming Encounters Date Type Department Care Team (Late st Contact Info) Description 05/20/2024 6:45 AM EDT Anticoagulation [facility] Clinical [facility]acy Services, Oscar Peace [address] [place] [address] [place] [address] [facility], [address] [place] [address] 05/26/2024 1:30 PM EDT Scheduled Telephone [facility], [facility] [address] [place] [address] FarrukhCrystal hernandez, [address] [place] [address] 05/26/2024 2:00 PM EDT Office Visit Orthopaedics [facility] [address] [place] [address] Steffanie Alfaro PA-C [address] [place] [address] 05/28/2024 2:15 PM EDT Office Visit Interventional Pain Center, [facility] [address] [place] [address] Johnathan Ferrer, DO [address] [place] [phone] 07/06/2024 11:00 AM EDT Office Visit Orthopaedics [facility] [address] [place] [address] Cm Dawson, DO [address] [place] [address] 08/10/2024 12:20 PM EDT Office [facility] [address] [facility] [phone] Charley Crane MD [address] [place] [address] 09/02/2024 3:00 PM EST Office Visit [facility] Ctr [facility] [address] [place] [phone] Audrey Lee, [address] [place] [address] Health Maintenance Due Date Last Done Comments [...] as of this encounter Care Teams Water Treatment Plant Operator Relationship Specialty Start Date End Date Charley Crane MD [address] [place] [address] PCP - General Internal Medicine 06/04/23 documented as of this encounter
--- OUTSIDE RECORDS SUMMARY | 2024-07-21 02:03 | External Medical Summary | Summary of Care ---
Author Name Unknown Organization [facility] Address [address] [facility] [place] [address] Phone [phone] Care Team Providers Care Web Site Admin Name Role Phone Charley Crane MD Primary Care Provider [phone] Reason for Visit * Reason Comments Dosage Adjustment Via Phone (anticoag Cl inic) Encounter Details Date Type Department Care Team (Late st Contact Info) Description 05/19/2024 6:00 AM EDT Anticoagulation [facility], Oscar Peace [address] [place] [address] [place] [address] [facility], [address] [place] [address] Anticoagulation management encounter*; care home current use of anticoagulant therapy; Longstanding persistent atrial fibrillation (HCC); History of [...] in the morning. 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 0 2023 Longstanding persistent atrial fibrillation 06/29 Hypertension goal BP (blood pressure) < 130/80 0 07/17/2023 Dyslipidemia, goal LDL below 70 07/17/2023 Body mass index (BMI) of 40.0 to 44.9 in adult 0 07/08/2023 Overview: Per Obesity protocol Atherosclerosis of [place] co 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 pectoris 07/05/2023 [...] Classes - JULIA Class D - Inhaled Hxjvowhziedcdr-BAQC-DGOD Combination Inhaler (Trellegy) Remote Patient Monitoring Vendor: Current Health Device(s): Continuous Monitoring Device Traditional Scale Self-Management plan High frequency nebulizer treatments every 4-6 hours around the clock Exacerbation plan Chest Xray Additional Comments: On continuous o2 2-3lpm Bipap at night Atherosclerosis of [place] co 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 pectoris 07/05/2023 [...] as of this encounter Progress Notes * Juanis Berry, [facility] - 05/19/2024 8:15 AM EDT Noted - pt is currently admitted at [facility]. Per TE 05/18, arrangements are being made for rehab - possibly [facility]. [facility] to continue to follow-up for discharge plans. Thanks, Juanis Berry PharmD Clinical Pharmacist Central[facility] Clinical Pharmacy Services ([facility]) [phone] 05/19/2024 8:16 AM * Misty Shanks liner inserter - 05/19/2024 7:03 AM EDT Patient marked a no show by GML yesterday with a note that patient is admitted. Please advise. User Action Outcome Comment NAMRATA ALEXANDER 05/18/2024 11:28 AM admitted Thank you, Misty Shanks CPhT Reconciliation Clerk II [facility] ([facility]) 05/19/2024,7:03 AM documented in this encounter Plan of Treatment Upcoming Encounters Date Type Department Care Team (Late st Contact Info) Description 05/20/2024 6:45 AM EDT Anticoagulation [facility], Oscar Peace [address] [place] [address] [place] [address] [facility], [address] [place] [address] 05/26/2024 2:00 PM EDT Office Visit Orthopaedics [facility] [address] [place] [address] Steffanie Alfaro PA-C [address] [place] [address] 05/28/2024 2:15 PM EDT Office Visit Interventional Pain Center, [facility] [address] [place] [address] Johnathan Ferrer DO [address] [place] [phone] 07/06/2024 11:00 AM EDT Office Visit Orthopaedics [facility] [address] [place] [address] Cm Dawson, DO [address] [place] [address] 08/10/2024 12:20 PM EDT Office Visit [facility] [address] [facility] [phone] Charley Crane MD [address] [place] [address] 09/02/2024 3:00 PM EST Office Visit Sleep Disorders Ctr [facility] [address] [place] [phone] Audrey Lee, DO [address] [place] [address] Health Maintenance Due Date Last Done Comments [...] as of this encounter Visit Diagnoses Diagnosis Anticoagulation management encounter- Primary Encounter for therapeutic 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
--- OUTSIDE RECORDS SUMMARY | 2024-07-21 02:03 | External Medical Summary ---
Author Name Unknown Address Unknown Organization K09[facility] [place] [address] Laboratory Report Ordering Provider Test Date Status KAYLA TRUJILLO 05/20/2024 05:38:53 Final Warfarin Therapy
INR: 2 .0-3.0 conventional anticoagulation
INR: 2.5- 3.5 high intensity anticoagulation Observation Date Value Abnormality Reference (Units ) Status PT 05/20/2024 05:38:53 19.5 Above high normal 11 .6-15.2 (seconds) Final INR 05/20/2024 05:38:53 1.6 Above high normal 0. 8-1.2 Final Performing Location [facility] [place] [address]
--- OUTSIDE RECORDS SUMMARY | 2024-07-21 02:03 | External Medical Summary | Summary of Care ---
Author Name Unknown Organization [facility] Address [address] [place] [address] Phone [phone] Care Team Providers Care Signal Constructor Name Role Phone Charley Crane MD Primary Care Provider [phone] Encounter Details Date Type Department Care Team (Late st Contact Info) Description 05/15/2024 Population Health External Data Unspecified Department Allergies No known active allergiesdocumented as of this encounter (statuses as of 05/15/2024) Medications Medication Sig Dispensed Refills Start Date [...] as of this encounter (statuses as of 05/15/2024) Active Problems Problem Noted Date Diagnosed Date COPD, group D, by GOLD 2017 classification 11/04 Overview: Per COPD GOLD Classification manager long term care current use of anticoagulant therapy 0 2023 Longstanding persistent atrial fibrillation 06/29 Hypertension goal BP (blood pressure) < 130/80 0 07/17/2023 Dyslipidemia, goal LDL below 70 07/17/2023 Body mass index (BMI) of 40.0 to 44.9 in adult 0 07/08/2023 Overview: Per Obesity protocol Atherosclerosis of [place] co 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 Jardiance) Remote Patient Monitoring Vendor: [facility] Device(s): Connected Scale Continuous Monitoring Device Self [...] as of this encounter (statuses as of 05/15/2024) Resolved Problems Problem Noted Date Diagnosed Date [...] Classes - JULIA Class D - Inhaled Sndcojxwskywlk-VQPZ-BNJM Combination Inhaler (Trellegy) Remote Patient Monitoring Vendor: Current Health Device(s): Continuous Monitoring Device Traditional Scale Self-Management plan High frequency nebulizer treatments every 4-6 hours around the clock Exacerbation plan Chest Xray Additional Comments: On continuous o2 2-3lpm Bipap at night Atherosclerosis of [place] 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 pectoris 07/05/2023 08/29/2023 Dyspnea 07/04/2023 08/13/2023 Occupational exposure in workplace 07/04/2023 02/14/2024 Chronic congestive heart failure 06/08/2023 07/05/2023 COPD, severe 06/08/2023 07/11/2023 Overview: Per COPD GOLD Classification Chronic hypoxemic respiratory failure 06/08/2023 07/04/2023 Chronic respiratory failure with hypoxia, on home oxygen therapy 06/08/2023 08/29/2023 Diabetes mellitus without complication 06/08/2023 08/29/2023 documented as of this encounter (statuses as of 05/15/2024) Immunizations Name Administration Dates Next Due Pneumococcal [...] Team (Late st Contact Info) Description 05/18/2024 7:00 AM EDT Laboratory Lab [facility] [address] [place] [address] [facility] Mobile Home Draw [address] [address] 05/19/2024 6:00 AM EDT Anticoagulation [facility] Services, Oscar Peace [address] [place] [address] [place] [address] [facility], [address] [place] [address] 05/19/2024 11:00 AM EDT Office Visit [facility] [address] [place] [address] Steffanie Alfaro PA-C [address] [place] [address] 05/26/2024 2:00 PM EDT Office Visit [facility] [address] [place] [address] Steffanie Alfaro PA-C [address] [place] [address] 05/28/2024 2:15 PM EDT Office Visit Interventional [facility] Center, [facility] [address] [place] [address] Johnathan Ferrer, DO [address] [place] [phone] 07/06/2024 11:00 AM EDT Office Visit [facility] [address] [place] [address] Cm Dawson, DO [address] [place] [address] 08/10/2024 12:20 PM EDT [address] [phone] Charley Crane MD [address] [facility] [address] 09/02/2024 3:00 PM EST Office Visit [facility] Disorders Ctr [facility] [address] [place] [phone] Audrey Leearet, [address] [place] [address] Health Maintenance Due Date Last Done Comments [...] filedocumented as of this encounter Care Teams Signal Constructor Relationship Specialty Start Date End Date Charley Crane MD [address] [place] [address] PCP - General Internal Medicine 06/04/23 documented as of this encounter
--- OUTSIDE RECORDS SUMMARY | 2024-07-21 02:03 | External Medical Summary | Summary of Care ---
Author Name Unknown Organization [facility] Address [address] [place] [address] Phone [phone] Care Team Providers Care Delicatessen Goods Stock Clerk Name Role Phone Charley Crane MD Primary Care Provider [phone] Encounter Details Date Type Department Care Team (Late st Contact Info) Description 05/18/2024 Orders Only Lab [facility]le[facility] [address] [place] [address] Charley Crane MD [address] [place] [address] retirement current use of anticoagulant therapy* Allergies No known active allergiesdocumented as of this encounter (statuses as of 05/18/2024) Medications Medication Sig Dispensed Refills Start Date [...] as of this encounter (statuses as of 05/18/2024) Active Problems Problem Noted Date Diagnosed Date [...] 07/08/2023 Overview: Per Obesity protocol Atherosclerosis of [place] co 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 pectoris 07/05/2023 [...] as of this encounter (statuses as of 05/18/2024) Resolved Problems Problem Noted Date Diagnosed Date [...] Classes - JULIA Class D - Inhaled Rnxpkoioctjxjr-NYUI-SAQR Combination Inhaler ([place]) Remote Patient Monitoring Vendor: Current Health Device(s): Continuous Monitoring Device Traditional Scale Self-Management plan High frequency nebulizer treatments every 4-6 hours around the clock Exacerbation plan Chest Xray Additional Comments: On continuous o2 2-3lpm Bipap at night Atherosclerosis of [place] co 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 pectoris 07/05/2023 08/29/2023 Dyspnea 07/04/2023 08/13/2023 Occupational exposure in workplace 07/04/2023 02/14/2024 Chronic congestive heart failure 06/08/2023 07/05/2023 COPD, severe 06/08/2023 07/11/2023 Overview: Per COPD GOLD Classification Chronic hypoxemic respiratory failure 06/08/2023 07/04/2023 Chronic respiratory failure with hypoxia, on home oxygen therapy 06/08/2023 08/29/2023 Diabetes mellitus without complication 06/08/2023 08/29/2023 documented as of this encounter (statuses as of 05/18/2024) Immunizations Name Administration Dates Next Due Pneumococcal [...] No 02/10/2024 Does the household have a [facility] source of income? (Household - [...] [facility] [address] [place] [address] M[facility], G[facility] Mobile Home Draw [address] [place] [address] computer terminal operator current use of anticoagulant therapy 05/19/2024 6:00 AM EDT Anticoagulation [facility], Oscar Peace [address] [place] [address] [place] [address] [place] [address] 05/19/2024 11:00 AM EDT Office Visit Orthopaedics [facility] [address] [place] [address] Steffanie Alfaro PA-C [address] [place] [address] 05/26/2024 2:00 PM EDT Office Visit [facility] [address] [place] [address] Steffanie Alfaro PA-C [address] [place] [address] 05/28/2024 2:15 PM EDT Office Visit [facility] Center, [facility] [address] [place] [address] Johnathan Ferrer, DO [address] [place] [address] 07/06/2024 11:00 AM EDT Office Visit [facility] [address] [place] [address] Cm Dawson, DO [address] [place] [address] 08/10/2024 12:20 PM EDT Office Visit [facility] [address] [facility], [place] [phone] Charley Crane MD [address] [place] [place] [address] 09/02/2024 3:00 PM EST Office Visit [facility] Disorders Ctr [facility] [address] [place] [phone] Audrey Lee, [address] [place] [address] Scheduled Orders Name Type Priority Associated Diagnoses Orde r Schedule PT INR Lab Routine retirement current use of anticoagulant therapy Expected: 05/18/2024, Expires: 05/18/2025 Health Maintenance Due Date Last Done Comments [...] as of this encounter Visit Diagnoses Diagnosis retirement current use of anticoagulant therapy 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
--- OUTSIDE RECORDS SUMMARY | 2024-07-21 02:03 | External Medical Summary | Summary of Care ---
Author Name Unknown Organization [facility] Address [address] [facility] [address] Phone [phone] Care Team Providers Care Wind Turbine Blade Repair Technician Name Role Phone Charley Crane MD Primary Care Provider Reason for Visit * Reason Comments Dosage Adjustment Via Phone (anticoag Cl inic) Encounter Details Date Type Department Care Team (Late st Contact Info) Description 05/19/2024 6:00 AM EDT Anticoagulation [facility]acy Services, Oscar Peace [address] [place] [address] [place] [address] [facility], [address] [place] [address] Anticoagulation management encounter*; alf current use of anticoagulant therapy; Longstanding persistent atrial fibrillation (HCC); History of deep venous thrombosis (DVT) of distal vein of left lower extremity Allergies No known active allergiesdocumented as of this encounter (statuses as of 05/20/2024) Medications Medication Sig Dispensed Refills Start Date [...] as of this encounter (statuses as of 05/20/2024) Active Problems Problem Noted Date Diagnosed Date COPD, group D, by GOLD 2017 classification 11/04 Overview: 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 Jardiance) Remote Patient Monitoring Vendor: [facility] Device(s): Connected Scale Continuous Monitoring Device Self [...] as of this encounter (statuses as of 05/20/2024) Resolved Problems Problem Noted Date Diagnosed Date [...] Classes - JULIA Class D - Inhaled Jpfryquuljvjmg-WHXE-WHDX Combination Inhaler (Trellegy) Remote Patient Monitoring Vendor: Current Health Device(s): Continuous Monitoring Device Traditional Scale Self-Management plan High frequency nebulizer treatments every 4-6 hours around the clock Exacerbation plan Chest Xray Additional Comments: On continuous o2 2-3lpm Bipap at night Atherosclerosis of [place] co 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 pectoris [...] as of this encounter (statuses as of 05/20/2024) Immunizations Name Administration Dates Next Due Pneumococcal [...] this encounter Progress Notes * Juanis Berry, [facility] - 05/19/2024 8:15 AM EDT Noted - pt is currently admitted at [facility]. Per TE 05/18, arrangements are being made for rehab - [facility]. [facility] to continue to follow-up for discharge plans. Thanks, Juanis Berry PharmD Clinical Pharmacist [facility] ([facility]) [phone] 05/19/2024 8:16 AM * Misty Shanks industrial editor - 05/19/2024 7:03 AM EDT Patient marked a no show by GML yesterday with a note that patient is admitted. Please advise. User Action Outcome Comment NAMRATA ALEXANDER 05/18/2024 11:28 AM admitted Thank you, Misty Shanks CPhT Gas Pumping Station Helper II [facility] ([facility]) 05/19/2024,7:03 AM documented in this encounter Plan of Treatment Upcoming Encounters Date Type Department Care Team (Late st Contact Info) Description 05/26/2024 1:30 PM EDT Scheduled Telephone [facility], [facility] [address] [facility] [place] [address] Crystal Chadwick, [address] [place] [address] 05/26/2024 2:00 PM EDT Office Visit Orthopaedics [facility] [address] [place] [address] Steffanie Alfaro PA-C [address] [place] [address] 05/28/2024 2:15 PM EDT Office Visit Interventional Pain Center, [facility] [address] [place] [address] Johnathan Ferrer DO [address] [place] [phone] 07/06/2024 11:00 AM EDT Office Visit Orthopaedics [facility] [address] [facility] [place] [address] Cm Dawson, DO [address] [place] [address] 08/10/2024 12:20 PM EDT Office Visit [facility] [address] [place] [phone] Charley Crane MD [address] [place] [address] 09/02/2024 3:00 PM EST Office Visit Sleep Disorders Ctr [facility] [address] [facility] [place] [phone] Audrey Lee, DO [address] [place] [address] Health Maintenance Due Date Last Done Comments [...] Not on filedocumented as of this encounter Procedures Procedure Name Priority Date/Time Associated Diagnosis Comments OUTSIDE LAB-PT/INR Routine 05/19/2024 OUTSIDE LAB-PT/INR Routine 05/18/2024 OUTSIDE LAB-PT/INR Routine 05/17/2024 OUTSIDE LAB-PT/INR Routine 05/16/2024 OUTSIDE LAB-PT/INR Routine 05/15/2024 OUTSIDE LAB-PT/INR Routine 05/14/2024 documented in this encounter Results * OUTSIDE LAB-PT/INR (05/19/2024) INR-OUTSIDE LAB 1.5 05/19/2024 History Per Patient LABORATORY * OUTSIDE LAB-PT/INR (05/18/2024) INR-OUTSIDE LAB 1.6 05/18/2024 History Per Patient LABORATORY * OUTSIDE LAB-PT/INR (05/17/2024) [facility] INR-OUTSIDE LAB 2.1 05/17/2024 History Per Patient LABORATORY * OUTSIDE LAB-PT/INR (05/16/2024) [facility] INR-OUTSIDE LAB 3.2 05/16/2024 History Per Patient LABORATORY * OUTSIDE LAB-PT/INR (05/15/2024) [facility] INR-OUTSIDE LAB 3.2 05/15/2024 History Per Patient LABORATORY * OUTSIDE LAB-PT/INR (05/14/2024) [facility] INR-OUTSIDE LAB 2.5 05/14/2024 History Per Patient LABORATORY documented in this encounter Visit Diagnoses Diagnosis Anticoagulation management encounter- Primary Encounter for therapeutic drug monitoring alf current use of anticoagulant therapy Longstanding persistent atrial fibrillation (HCC) History of deep venous thrombosis (DVT) of distal vein of left lower extremity documented in this encounter Care Teams Wind Turbine Blade Repair Technician Relationship Specialty Start Date End Date Charley Crane MD [address] [place] [address] PCP - General Internal Medicine 06/04/23 documented as of this encounter
--- OUTSIDE RECORDS SUMMARY | 2024-07-21 02:03 | External Medical Summary ---
Author Name Unknown Address Unknown Organization [facility] [place] [address] Laboratory Report Ordering Provider Test Date Status KAYLA TRUJILLO 05/20/2024 05:38:53 Final Observation Date Value Abnormality Reference (Units ) Status WBC, Total 05/20/2024 05:38:53 8.90 4.00-10.8 0 (K/uL) Final RBC 05/20/2024 05:38:53 3.83 4.50-5.25 (M/uL) Final Hemoglobin 05/20/2024 05:38:53 11.0 Below low normal 14 .0-16.8 (g/dL) Final HCT 05/20/2024 05:38:53 35.7 Below low normal 40. 0-48.4 (%) Final MCV 05/20/2024 05:38:53 93.2 82.0-99.5 (fL) Final MCH 05/20/2024 05:38:53 28.7 27.0-34.0 (pg) Final MCHC 05/20/2024 05:38:53 30.8 32.0-36.0 (g/dL) Final RDW 05/20/2024 05:38:53 15.5 11.5-15.5 (%) Final Platelets 05/20/2024 05:38:53 361 140-400 (K /uL) Final MPV 05/20/2024 05:38:53 9.8 6.6-11.1 ( fL) Final Performing Location [facility] [place] [address]
--- OUTSIDE RECORDS SUMMARY | 2024-07-21 02:03 | External Medical Summary | Summary of Care ---
Author Name Unknown Organization [facility] Address [address] [facility] [facility] [address] Phone [phone] Care Team Providers Care Janitor Name Role Phone Charley Crane MD Primary Care Provider [phone] Reason for Visit * Reason Comments Dosage Adjustment Via Phone (anticoag Cl inic) Encounter Details Date Type Department Care Team (Late st Contact Info) Description 05/20/2024 6:45 AM EDT Anticoagulation Centralized Clinical Pharmacy Services, Oscar Peace [address] [place] [address] [place] [address] [place] [address] detention current use of anticoagulant therapy*; Longstanding persistent [...] 07/08/2023 Overview: Per Obesity protocol Atherosclerosis of [place] co 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 pectoris 07/05/2023 [...] Classes - JULIA Class D - Inhaled Mfoookajfjkdku-ODYI-ZQYB Combination Inhaler (Trellegy) Remote Patient Monitoring Vendor: Current Health Device(s): Continuous Monitoring Device Traditional Scale Self-Management plan High frequency nebulizer treatments every 4-6 hours around the clock Exacerbation plan Chest Xray Additional Comments: On continuous o2 2-3lpm Bipap at night Atherosclerosis of [place] co 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 pectoris 07/05/2023 [...] this encounter Progress Notes * Juanis Berry, [facility] - 05/20/2024 1:52 PM EDT Images from the original note were not included. Medication Therapy Disease Management - Anticoagulation Patient: Bala Coronado Jr. | : 1955 Subjective Patient-Reported Symptoms: Patient Findings Positives: Hospital admission (Pt admitted to [facility] 05/13 - 05/19 for respiratory failure secondary toHF, PNA, and COPD exacerbation) Comments: Pt was discharged from [facility] to [facility] rehab at [facility] where anticoagulation will be managed by in-house providers. [facility] to follow-up weekly for discharge plans from [facility]. Objective Current Warfarin Dose As of 05/20/2024 Warfarin maintenance plan: 10 mg (10 mg x 1) every Tue, Lucrecia, Sat; 15 mg (10 mg x 1.5) all other days INR Result As of 05/20/2024 INR goal: 2.0-3.0 INR used for dosin.6 (05/20/2024) Assessment & Plan Warfarin Plan As of 05/20/2024 Full warfarin instructions: 10 mg every Tue, Lucrecia, Sat; 15 mg all other days No change documented: Juanis Berry RPh Next INR check: Repeat PT/INR -- TBD Weekly dose: not changed Additional Dosing Information: [facility] - Warfarin NOT included Juanis Berry RPh Clinical Pharmacist 05/20/2024, 1:52 PM documented in this encounter Plan of Treatment Upcoming Encounters Date Type Department Care Team (Late st Contact Info) Description 05/26/2024 1:30 PM EDT Scheduled Telephone [facility], [facility] [address] [place] [address] Crystal Chadwick, THOMAS [address] [place] [address] 05/26/2024 2:00 PM EDT Office Visit Orthopaedics [facility] [address] [place] [address] Steffanie Alfaro PA-C [address] [place] [address] 05/28/2024 7:00 AM EDT Anticoagulation Centralized Clinical Pharmacy Services, Oscar Peace [address] [place] [address] [place] [address] [place] [address] 05/28/2024 2:15 PM EDT Office Visit Interventional Pain Center, [facility] [address] [place] [address] Johnathan Ferrer, DO [address] [place] [phone] 07/06/2024 11:00 AM EDT Office Visit Orthopaedics [facility] [address] [place] [address] Cm Dawson, DO [address] [place] [address] 08/10/2024 12:20 PM EDT Office Visit [address] [phone] Charley Crane MD [address] [place] [address] 09/02/2024 3:00 PM EST Office Visit Sleep Disorders Ctr [facility] [address] [place] [phone] Audrey Lee, DO [address] [place] [address] Health Maintenance Due Date Last Done Comments [...] as of this encounter Visit Diagnoses Diagnosis detention current use of anticoagulant therapy- Primary Longstanding persistent atrial fibrillation (HCC) History of deep venous thrombosis (DVT) of distal vein of left lower extremity documented in this encounter Care Teams Janitor Relationship Specialty Start Date End Date Charley Crane MD [address] [place] [address] PCP - General Internal Medicine 06/04/23 documented as of this encounter
--- OUTSIDE RECORDS SUMMARY | 2024-07-21 02:03 | External Medical Summary ---
Author Name Unknown Address Unknown Organization K[facility] [place] [address] Laboratory Report Ordering Provider Test Date Status KAYLA TRUJILLO 05/21/2024 05:56:01 Final Warfarin Therapy
INR: 2 .0-3.0 conventional anticoagulation
INR: 2.5- 3.5 high intensity anticoagulation Observation Date Value Abnormality Reference (Units ) Status PT 05/21/2024 05:56:01 21.6 Above high normal 11 .6-15.2 (seconds) Final INR 05/21/2024 05:56:01 1.9 Above high normal 0. 8-1.2 Final Performing Location [facility] [place] [address]
--- OUTSIDE RECORDS SUMMARY | 2024-07-21 02:03 | External Medical Summary ---
Author Name Unknown Address Unknown Organization K09[facility] [place] [address] Laboratory Report Ordering Provider Test Date Status KAYLA TRUJILLO 05/20/2024 05:38:53 Final Observation Date Value Abnormality Reference (Units ) Status BUN 05/20/2024 05:38:53 45 Above high normal 6-20 (mg/dL) Final Creatinine 05/20/2024 05:38:53 0.9 0.6-1.2 (mg/dL) Final Glomerular filtration rate/1.73 sq M.predicted [Volume Rate/Area] in Serum, Plasma or Blood by Creatinine-based formula (CKD-EPI) 05/20/2024 05:38:53 >90 >=60 (mL/min) Final eGFR is calculated based on the CKD-EPI 2020 equation. Sodium 05/20/2024 05:38:53 139 135-146 (m mol/L) Final Potassium 05/20/2024 05:38:53 4.0 3.5-5.1 (m mol/L) Final Cl 05/20/2024 05:38:53 96 Below low normal 98- 107 (mmol/L) Final CO2 05/20/2024 05:38:53 29 22-32 (mmo l/L) Final Anion gap 05/20/2024 05:38:53 14 7-15 (mmol /L) Final Glucose 05/20/2024 05:38:53 102 70-120 (mg /dL) Final Calcium 05/20/2024 05:38:53 8.9 8.4-10.2 ( mg/dL) Final Performing Location [facility] Sarah [place] [address]
--- OUTSIDE RECORDS SUMMARY | 2024-07-21 02:03 | External Medical Summary | Summary of Care ---
Author Name Unknown Organization [facility] Address [address] [place] [address] Phone [phone] Care Team Providers Care Director Sterile Processing Name Role Phone Charley Crane MD Primary Care Provider [phone] Reason for Visit * Reason Onset Date Comments Other 05/18/2024 Encounter Details Date Type Department Care Team (Late st Contact Info) Description 05/18/2024 Telephone Access Center, [address] *DO NOT REMOVE THIS DEPARTMENT* [place] [address] Services, Scheduling [address] [place] [address] Other Allergies No known active allergiesdocumented as [...] classification 11/04 Overview: Per COPD GOLD Classification [facility] current use of anticoagulant therapy 0 2023 Longstanding persistent atrial fibrillation 06/29 Hypertension goal BP (blood pressure) < 130/80 0 07/17/2023 Dyslipidemia, goal LDL below 70 07/17/2023 Body mass index (BMI) of 40.0 to 44.9 in adult 0 07/08/2023 Overview: Per Obesity protocol Atherosclerosis of [place] co 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 pectoris 07/05/2023 [...] Classes - JULIA Class D - Inhaled Xfdyqghqhyncff-BHWB-GGVM Combination Inhaler (Trellegy) Remote Patient Monitoring Vendor: Current Health Device(s): Continuous Monitoring Device Traditional Scale Self-Management plan High frequency nebulizer treatments every 4-6 hours around the clock Exacerbation plan Chest Xray Additional Comments: On continuous o2 2-3lpm Bipap at night Atherosclerosis of [place] co 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 pectoris 07/05/2023 [...] 02/10/2024 Does the household have a [facility] children's [...] encounter Miscellaneous Notes * Telephone Encounter - Heather Sears OSA - 05/19/2024 8:56 AM EDT Pt called back due to missed call from Steffanie, Please call pt back at [phone] when available. * Telephone Encounter - Ning Shanks OSA - 05/19/2024 8:18 AM EDT Pt calling. He is currently in [facility] and will be going to rehab soon. Pt states heneeds to speak with Steffanie about his knee injection appointments, one of which is scheduled for today 05/19/2024 and will be not be able to keep. Please reach to pt at [phone]. * Telephone Encounter - Laila Ly OSA - 05/18/2024 3:24 PM EDT Pts daughter in law calling today. Pt sees Steffanie Alfaro. He was admitted to [facility] a few days ago and he would like her to call him on his cell phone as they are trying to get him into [facility]. documented in this encounter Plan of Treatment Upcoming Encounters Date Type Department Care Team (Late st Contact Info) Description 05/20/2024 6:45 AM EDT Anticoagulation Centralized Clinical Pharmacy Services, Oscar Peace [address] [place] [address] [place] [address] [place] [address] 05/26/2024 2:00 PM EDT Office Visit Orthopaedics [facility] [address] [place] [address] Steffanie Alfaro PA-C [address] [place] [address] 05/28/2024 2:15 PM EDT Office Visit Interventional Pain Center, [facility] [address] [place] [address] Johnathan Ferrer, [address] [place] [phone] 07/06/2024 11:00 AM EDT Office Visit Orthopaedics [facility] [address] [place] [address] Cm Dawson, DO [address] [place] [address] 08/10/2024 12:20 PM EDT Office Visit [facility] [address] [place] [facility] [place] [phone] Charley Crane MD [address] [place] [address] 09/02/2024 3:00 PM EST Office Visit Sleep Disorders Ctr [facility] [address] [place] [phone] Audrey Lee, DO [address] [place] [address] Health Maintenance Due Date Last Done Comments [...] as of this encounter Care Teams Director Sterile Processing Relationship Specialty Start Date End Date Charley Crane MD [address] [place] [address] PCP - General Internal Medicine 06/04/23 documented as of this encounter
--- OUTSIDE RECORDS SUMMARY | 2024-07-21 02:03 | External Medical Summary | Summary of Care ---
Author Name Unknown Organization [facility] Address [address] [place] [address] Phone [phone] Care Team Providers Care Vocational Nurse Name Role Phone Charley Crane MD Primary Care Provider [phone] Reason for Visit * Reason Onset Date Comments Other 05/18/2024 Encounter Details Date Type Department Care Team (Late st Contact Info) Description 05/18/2024 Telephone Access Center, [address] *DO NOT REMOVE THIS DEPARTMENT* [place] [address] Services, Scheduling [address] [place] [address] Other Allergies No known active allergiesdocumented as [...] 07/08/2023 Overview: Per Obesity protocol Atherosclerosis of [place] co 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 pectoris [...] empagliflozin (ex. Jardiance) Remote Patient Monitoring Vendor: [facility] Device(s): Connected Scale Continuous Monitoring Device Self [...] Classes - JULIA Class D - Inhaled Odpgndyxabzbdz-BPFV-DODR Combination Inhaler (Trellegy) Remote Patient Monitoring Vendor: Current Health Device(s): Continuous Monitoring Device Traditional Scale Self-Management plan High frequency nebulizer treatments every 4-6 hours around the clock Exacerbation plan Chest Xray Additional Comments: On continuous o2 2-3lpm Bipap at night Atherosclerosis of [place] co 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 pectoris [...] No 02/10/2024 Does the household have a [facility]? (Household - for ages [...] from Steffanie, Please call pt back at [phone] when available. * Telephone Encounter - Ning Shanks OSA - 05/19/2024 8:18 AM EDT Pt calling. He is currently in [facility] and will be going to rehab soon. Pt states heneeds to speak with Steffanie about his knee injection appointments, one of which is scheduled for today 05/19/2024 and will be not be able to keep. Please reach to pt at [phone]. * Telephone Encounter - Laila Ly OSA - 05/18/2024 3:24 PM EDT Pts daughter in law calling today. Pt sees Steffanie Alfaro. [facility] and he would like her to call him on his cell phone as they are trying to get him into [facility]. documented in this encounter Plan of Treatment Upcoming Encounters Date Type Department Care Team (Late st Contact Info) Description 05/20/2024 6:45 AM EDT Anticoagulation Centralized Clinical Pharmacy Services, Oscar Peace [address] [place] [address] [place] [address] [place] [address] 05/26/2024 2:00 PM EDT Office Visit Orthopaedics [facility] [address] [place] [address] Steffanie Alfaro PA-C [address] [place] [address] 05/28/2024 2:15 PM EDT Office Visit Interventional Pain Center, [facility] [address] [place] [address] Johnathan Ferrer, [address] [place] [phone] 07/06/2024 11:00 AM EDT Office Visit Orthopaedics [facility] [address] [place] [address] Cm Dawson, DO [address] [place] [address] 08/10/2024 12:20 PM EDT Office Visit [facility] [address] [place] [phone] Charley Crane MD [address] [place] [address] 09/02/2024 3:00 PM EST Office Visit Sleep Disorders Ctr [facility] [address] [place] [phone] Audrey Lee, DO [address] [place] [address] Health Maintenance Due Date Last Done Comments [...] filedocumented as of this encounter Care Teams Vocational Nurse Relationship Specialty Start Date End Date Charley Crane MD [address] [place] [address] PCP - General Internal Medicine 06/04/23 documented as of this encounter
--- OUTSIDE RECORDS SUMMARY | 2024-07-21 02:04 | External Medical Summary | Summary of Care ---
Author Name Unknown Organization [facility] Address [address] [facility] [address] Phone [phone] Care Team Providers Care Irrigation Technician Name Role Phone Charley Crane MD Primary Care Provider [phone] Reason for Visit * Reason Onset Date Comments [facility]: Maintenance 05/13/2024 Encounter Details Date Type Department Care Team (Late st Contact Info) Description 05/13/2024 1:00 PM EDT Scheduled Telephone [facility], [facility] [address] [place] [address] Coordinator, [facility] [address] [place] [address] Allergies No known active allergiesdocumented as of this encounter (statuses as of 05/13/2024) Medications Medication Sig Dispensed Refills Start Date [...] as of this encounter (statuses as of 05/13/2024) Active Problems Problem Noted Date Diagnosed Date [...] 07/08/2023 Overview: Per Obesity protocol Atherosclerosis of [place] co 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 pectoris 07/05/2023 [...] as of this encounter (statuses as of 05/13/2024) Resolved Problems Problem Noted Date Diagnosed Date [...] Classes - JULIA Class D - Inhaled Fzaswfkkkdzxva-ZXFQ-GPFE Combination Inhaler (Trellegy) Remote Patient Monitoring Vendor: Current Health Device(s): Continuous Monitoring Device Traditional Scale Self-Management plan High frequency nebulizer treatments every 4-6 hours around the clock Exacerbation plan Chest Xray Additional Comments: On continuous o2 2-3lpm Bipap at night Atherosclerosis of [place] co 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 pectoris 07/05/2023 08/29/2023 Dyspnea 07/04/2023 08/13/2023 Occupational exposure in workplace 07/04/2023 02/14/2024 Chronic congestive heart failure 06/08/2023 07/05/2023 COPD, severe 06/08/2023 07/11/2023 Overview: Per COPD GOLD Classification Chronic hypoxemic respiratory failure 06/08/2023 07/04/2023 Chronic respiratory failure with hypoxia, on home oxygen therapy 06/08/2023 08/29/2023 Diabetes mellitus without complication 06/08/2023 08/29/2023 documented as of this encounter (statuses as of 05/13/2024) Immunizations Name Administration Dates Next Due Pneumococcal [...] Miscellaneous Notes * Telephone Encounter - Michelle Khan RN - 05/13/2024 2:50 PM EDT [facility] Telephonic Nurse Follow-Up Call [facility] Subprogram: Focused Care Management (3-9 months) Follow Up Call Type: 24 hour follow up Acute issue requiring follow-up call: Other: f/u PC-per triage note patient went to hospital-did he get admitted? Objective: 05/10/2024 4:58 PM 05/05/2024 2:01 PM [...] made during acute episode Subjective: Condition Status: The pt has been admitted to [facility] for CHF Current Concerns: Outgoing call to the pt's daughter in law Maira who notified [facility] java systems analyst of the above. Advised for Maira to notify the CM or program planner at [facility] that the pt is enrolled with [facility] so that they know to contact [facility] re: discharge. She verbalized understanding of same. Disposition: Issue resolved. All appropriate follow up scheduled. Future Visits Scheduled: Future Appointments-next 60 days Date/Time Provider Specialty Dept Phone 05/15/2024 8:30 AM Michelle Kim RN [facility] [phone] 05/18/2024 7:00 AM [facility] Draw Laboratory Processing [phone] 05/19/2024 6:00 AM [facility] [phone] 05/19/2024 11:00 AM (Arrive by 10:45 AM) Steffanie Alfaro PA-C Orthopedics [phone] 05/26/2024 2:00 PM (Arrive by 1:45 PM) Steffanie Alfaro PA-C Orthopedics [phone] 05/28/2024 2:15 PM (Arrive by 2:00 PM) Johnathan Ferrer DO Pain Medicine [phone] 07/06/2024 11:00 AM (Arrive by 10:45 AM) Cm Dawson DO Orthopedics [phone] 08/10/2024 12:20 PM (Arrive by 12:05 PM) Charley Crane MD Family Medicine [phone] 09/02/2024 3:00 PM (Arrive by 2:45 PM) Audrey Lee DO Sleep Disorders [phone] Michelle Khan, RN documented in this encounter Plan of Treatment Upcoming Encounters Date Type Department Care Team (Late st Contact Info) Description 05/15/2024 8:30 AM EDT Home Visit [facility] [address] [place] [address] Michelle Kim, RN [address] [place] [address] 05/18/2024 7:00 AM EDT Laboratory Lab Mobile Phlebotomy [facility] [address] [facility] [place] [address] [facility] Draw [address] [facility] [place] [address] 05/19/2024 6:00 AM EDT Anticoagulation Centralized Clinical Pharmacy Services, Oscar Peace [address] [place] [address] [place] [address] [place] [address] 05/19/2024 11:00 AM EDT Office Visit Orthopaedics [facility] [address] [place] [address] Steffanie Alfaro PA-C [address] [place] [address] 05/26/2024 2:00 PM EDT Office Visit Orthopaedics [facility] [address] [place] [address] Steffanie Alfaro PA-C [address] [place] [address] 05/28/2024 2:15 PM EDT Office Visit Interventional Pain Center, [facility] [address] [place] [address] Johnathan Ferrer, DO [address] [place] [phone] 07/06/2024 11:00 AM EDT Office Visit Orthopaedics [facility] [address] [place] [address] Cm Dawson, DO [address] [place] [address] 08/10/2024 12:20 PM EDT Office Visit [place] [address] [place] [phone] Charley Crane MD [address] [place] [address] 09/02/2024 3:00 PM EST Office Visit Sleep Disorders Ctr [facility] [address] [place] [phone] Audrey Lee, DO [address] [place] [address] Health Maintenance Due Date Last Done Comments [...] filedocumented as of this encounter Care Teams Irrigation Technician Relationship Specialty Start Date End Date Charley Crane MD [address] [place] [address] PCP - General Internal Medicine 06/04/23 documented as of this encounter
--- OUTSIDE RECORDS SUMMARY | 2024-07-21 02:04 | External Medical Summary | Summary of Care ---
Author Name Unknown Organization [facility] Address [address] [address] Phone [phone] Care Team Providers Care Hot Die Press Feeder Name Role Phone Charley Crane MD Primary Care Provider [phone] Reason for Visit * Reason Onset Date Comments [facility]: Maintenance 05/10/2024 Encounter Details Date Type Department Care Team (Late st Contact Info) Description 05/10/2024 Telephone [facility], [facility] [address] [facility] [place] [address] Blane Maradiaga, RN 132 [facility] [place] [address] [facility]: Maintenance Allergies No known active allergiesdocumented as of this encounter (statuses as of 05/14/2024) Medications Medication Sig Dispensed Refills Start Date [...] the morning. 90 Tablet 01/20/20 24 Active Enalapril Maleate 10 MG Oral Tablet (Vasotec) Take 1 Tablet by mouth in the morning. 90 Tablet 01/20/20 24 Active Isosorbide Mononitrate ER 60 MG Oral Tablet Extended Release 24 Hour (Imdur)Indication s:Hypertension goal BP (blood pressure) < 130/80 Take 1 Tablet by mouth in the morning. 90 Tablet 01/20/20 24 Active Pantoprazole Sodium 40 MG Oral Tablet Delayed Release (Protonix) Take 1 Tablet by mouth in the morning. 90 Tablet 01/20/20 24 Active Potassium Chloride ER 10 MEQ Oral Capsule Extended Release Take 1 Capsule by mouth every other day. 45 Capsule 01/20/20 24 Active Spironolactone 25 MG Oral [...] the morning. 180 Blister Dosing Unit 01/20/20 24 Active Warfarin Sodium 10 MG Oral Tablet (Coumadin) Take 1 to 1.5 tablets by mouth every day in the evening or as directed by the anticoagulation clinic. 100 Tablet 01/20/20 24 Active Albuterol Sulfate HFA 108 (90 Base) MCG/ACT Inhalation Aerosol Solution Inhale 2 Puffs by mouth every 6 hours as needed for Shortness of Breath or Wheezing. 54 g 01/20/20 24 Active Doxycycline Hyclate 100 MG [...] meals. 180 Tablet 3 04/28/20 24 Active Doxycycline Hyclate 100 MG Oral Capsule Take 1 Capsule by mouth in the morning and 1 Capsule before bedtime. Do all this for 10 days. Until gone.. 20 Capsule 05/05/20 24 024 Active Cephalexin 500 MG Oral Capsule Take 1 Capsule by mouth in the morning and 1 Capsule before bedtime. Do all this for 10 days. 20 Capsule 05/05/20 24 024 Active Ipratropium-Albut blaire 0.5-2.5 (3) MG/3ML Inhalation Solution (Duoneb) INHALE THE CONTENTS OF 1 VIAL IN NEBULIZER EVERY 6 HOURS NEEDED FOR SHORTNESS OF BREATH 360 mL 3 01/20/20 24 024 Discontinued documented as of this encounter (statuses as of 05/14/2024) Active Problems Problem Noted Date Diagnosed Date COPD, group D, by GOLD 2017 classification 11/04 Overview: Per COPD GOLD Classification prison current use of anticoagulant therapy 0 2023 Longstanding persistent atrial fibrillation 06/29 Hypertension goal BP (blood pressure) < 130/80 0 07/17/2023 Dyslipidemia, goal LDL below 70 07/17/2023 Body mass index (BMI) of 40.0 to 44.9 in adult 0 07/08/2023 Overview: Per Obesity protocol Atherosclerosis of mi'[place] co 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 pectoris 07/05/2023 [...] as of this encounter (statuses as of 05/14/2024) Resolved Problems Problem Noted Date Diagnosed Date [...] Classes - JULIA Class D - Inhaled Lmflzahzfvirbu-QDNQ-FLZG Combination Inhaler (Trellegy) Remote Patient Monitoring Vendor: Current Health Device(s): Continuous Monitoring Device Traditional Scale Self-Management plan High frequency nebulizer treatments every 4-6 hours around the clock Exacerbation plan Chest Xray Additional Comments: On continuous o2 2-3lpm Bipap at night Atherosclerosis of mi'kmaq co 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 pectoris 07/05/2023 08/29/2023 Dyspnea 07/04/2023 08/13/2023 Occupational exposure in workplace 07/04/2023 02/14/2024 Chronic congestive heart failure 06/08/2023 07/05/2023 COPD, severe 06/08/2023 07/11/2023 Overview: Per COPD GOLD Classification Chronic hypoxemic respiratory failure 06/08/2023 07/04/2023 Chronic respiratory failure with hypoxia, on home oxygen therapy 06/08/2023 08/29/2023 Diabetes mellitus without complication 06/08/2023 08/29/2023 documented as of this encounter (statuses as of 05/14/2024) Immunizations Name Administration Dates Next Due Pneumococcal [...] encounter Miscellaneous Notes * Telephone Encounter - Blane Maradiaga RN - 05/10/2024 7:36 PM EDT This RN unable to complete med rec due to barriers, unsure if pt is currently taking rescue kit meds or not. Please facilitate call tomorrow to pt for clarification, not DIL. Eval S/S of cellulitis to BLE, COPD exac, CHF? documented in this encounter Plan of Treatment Upcoming Encounters Date Type Department Care Team (Late st Contact Info) Description 05/15/2024 8:30 AM EDT Home Visit [facility] [address] [place] [address] Michelle Kim RN 132 [place] [address] 05/18/2024 7:00 AM EDT Laboratory Lab Mobile Phlebotomy [facility] [address] [facility] [place] [address] M[facility], Gml Mobile Home Draw [address] [facility] [place] [address] 05/19/2024 6:00 AM EDT Anticoagulation Centralized Clinical Pharmacy Services, Oscar Peace [address] [place] [address] [place] [address] [place] [address] 05/19/2024 11:00 AM EDT Office Visit Orthopaedics [facility] [address] [place] [address] Steffanie Alfaro PA-C 132 [place] [address] 05/26/2024 2:00 PM EDT Office Visit Orthopaedics [facility] [address] [place] [address] Steffanie Alfaro PA-C [address] [place] [address] 05/28/2024 2:15 PM EDT Office Visit Interventional [facility] Center, [facility] [address] [place] [address] Johnathan Ferrer, DO [address] [place] [phone] 07/06/2024 11:00 AM EDT Office Visit Orthopaedics [facility] [address] [place] [address] Cm Dawson, DO [address] [place] [address] 08/10/2024 12:20 PM EDT Office Visit [facility] [address] [place] [phone] Charley Crane MD [address] [place] [address] 09/02/2024 3:00 PM EST Office Visit [facility]tr [facility] [address] [facility] [place] [phone] Audrey Lee, DO [address] [place] [address] Health Maintenance Due Date Last Done Comments [...] filedocumented as of this encounter Care Teams Hot Die Press Feeder Relationship Specialty Start Date End Date Charley Crane MD [address] [place] [address] PCP - General Internal Medicine 06/04/23 documented as of this encounter
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
[2024-07-21 06:39] LABS: Hematocrit (blood only) 30.8 % (42.0-52.0); Hemoglobin 9.3 g/dl (14.0-18.0); Mean Corpuscular Hemoglobin 28.3 pg (25.0-34.0); Mean Corpuscular Hgb Conc 30.2 g/dL (32.0-36.0); Mean Corpuscular Volume 93.6 fL (80.0-100.0); Mean Platelet Volume 10.1 fL (9.4-12.4); Platelet Count 230 K/uL (130-400); RDW Coefficient of Variation 16.6 % (11.5-14.5); RDW Standard Deviation 56.7 fL (36.4-46.3); Red Blood Count 3.29 M/uL (4.70-6.10); White Blood Count 5.35 K/ul (4.8-10.8)
[2024-07-21 06:44] LABS: Albumin Globulin Ratio 1.2 (0.9-2); Albumin Level 3.6 gm/dl (3.4-5.0); BUN Creatinine Ratio 47.8 (10-20); Bilirubin,Total 0.4 mg/dl (0.2-1.0); Creatinine Clr Calc Pharmacy 113.4 ml/min; Est GFR (African American) 102.1 ml/min; Est GFR (Non-African American) 88.1 ml/min; Globulin 2.9 gm/dl (2.5-4.0); Magnesium 2.2 mg/dl (1.7-2.4); Phosphorus 4.1 mg/dl (2.5-4.9); Potassium 5.5 mmol/L (3.5-5.1); Total Protein 6.5 gm/dl (6.0-8.3)
[2024-07-21 06:55] LABS: INR 2.5 (0.9-1.1); Prothrombin Time 25.1 Seconds (9.0-12.0)
[2024-07-21 06:58] LABS: Estimated Average Glucose 134 mg/dl; Hemoglobin A1C 6.3 % (4.5-5.6)
[2024-07-21 07:02] LABS: Immature Granulocytes # (auto) 0.02 K/uL (0.01-0.20); Immature Granulocytes % (auto) 0.4 %; Lymphocytes # (auto) 0.34 K/uL (1.20-3.40); Lymphocytes % (auto) 6.4 %; Monocytes # (auto) 0.08 K/uL (0.11-0.59); Monocytes % (auto) 1.5 %; Neutrophils # (auto) 4.91 K/uL (1.40-6.50); Neutrophils % (auto) 91.7 %
--- OUTSIDE RECORDS SUMMARY | 2024-07-21 08:49 | External Medical Summary | Summary of Care ---
Author Name Unknown Organization [facility] Address [address] [place] [address] Phone [phone] Care Team Providers Care Exhibits Curator Name Role Phone Charley Crane MD Primary Care Provider [phone] Reason for Visit * Reason Onset Date Comments Research Support Specialist Documentation 07/20/2024 Encounter Details Date Type Department Care Team (Late st Contact Info) Description 07/20/2024 10:30 AM EDT Scheduled Telephone [facility], [facility] [address] [place] [address] [facility] [address] [place], [place] [id number] Allergies No known active allergiesdocumented as of [...] rescue kit. 20 Capsule 4 Active Nystatin 637578 UNIT/GM External Cream Apply topically to affected area 2 times a day. Continue until resolved 30 g 2 4 Active predniSONE 20 MG Oral Tablet (Deltasone)Indicati ons:COPD, group D, by GOLD 2017 classification ([facility]) Take 2 Tablets by mouth in the morning. Rescue kit. Use only as instructed. 10 Tablet 4 Active Doxycycline Hyclate 100 MG Oral CapsuleIndications: COPD, group D, by GOLD 2017 classification ([facility]) Take 1 Capsule by mouth in the [...] goal LDL below 70 07/17/2023 Atherosclerosis of [place] co 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 Jardiance) Remote Patient Monitoring Vendor: [facility] Device(s): Connected Scale Continuous Monitoring Device Self [...] Classes - JULIA Class D - Inhaled Xdnbxmwsrjyuym-MHED-UNWQ Combination Inhaler (Sandro) Remote Patient Monitoring Vendor: Current Health Device(s): Continuous Monitoring Device Traditional Scale Self-Management plan High frequency nebulizer treatments every 4-6 hours around the clock Exacerbation plan Chest Xray Additional Comments: On continuous o2 2-3lpm Bipap at night Body mass index (BMI) of 40. 0 to 44.9 in adult 07/08/2023 07/09/2024 Overview: Per Obesity protocol Atherosclerosis of [place] co 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 pectoris 07/05/2023 [...] Miscellaneous Notes * Telephone Encounter - Nataliya Erazo LCSW - 07/20/2024 10:53 AM EDT Worker was consulted by Michelle POLANCO CM Community Resources Chart was reviewed. Worker placed a call to the [place] [facility] [phone] Spoke to Jamila Dispatcher [employer] Referral was made for personal care services Worker was able to discuss the patient's situation and specific needs. Appropriate information was shared. Jamila at intake will assign a music executive to schedule an evaluation for the eligibility for services. Nataliya Erazo LCSW [facility] [place] [facility] [phone] documented in this encounter Plan of Treatment Upcoming Encounters Date Type Department Care Team (Late st Contact Info) Description 07/27/2024 7:10 AM EDT Laboratory Lab Mobile Phlebotomy [facility] [address] [place] [address] Mvmg, Gml Mobile Home Draw [address] [facility] [place] [address] 07/27/2024 2:15 PM EDT Office Visit Interventional Pain Center, [facility] 132 [facility] [place] [address] Gely Gilmore MD [address] [place] [address] 07/28/2024 6:00 AM EDT Anticoagulation Centralized Clinical Pharmacy Services, [address] [place] [address] [place] [address] 08/03/2024 3:00 PM EDT Office Visit Orthopaedics [facility] 132 [facility] [place] [address] Cm Dawson, 132 [facility] [place] [address] 08/10/2024 12:20 PM EDT Office Visit [place] [address] [place] [phone] Charley Crane MD [address] [place] [address] 09/02/2024 3:00 PM EST Office Visit Sleep Disorders Ctr [facility] [address] [place] [phone] Audrey Lee, [address] [place] [address] Health Maintenance Due Date Last Done Comments Alpha-1 Antitrypsin 1974 CKD PHOS USE SMARTSET 75807 1974 DTap/Tdap Vaccines (1 - Tdap) 1975 [...] 04/28/2024, , 09/09/2023 CKD HGB USE SMARTSET 27698 06/15/202506/15, 06/15/2024, 05/27/2024, Additional history exists Diabetic [...] filedocumented as of this encounter Care Teams Exhibits Curator Relationship Specialty Start Date End Date Charley Crane MD [address] [place] [address] PCP - General Internal Medicine 06/04/23 documented as of this encounter
--- OUTSIDE RECORDS SUMMARY | 2024-07-21 08:50 | External Medical Summary | Summary of Care ---
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 20 Capsule 4 Active Nystatin 826540 UNIT/GM External Cream Apply topically to affected area 2 times a day. Continue until resolved 30 g 2 4 Active predniSONE 20 MG Oral Tablet (Deltasone)Indicati ons:COPD, group D, by GOLD 2017 classification ([facility]) Take 2 Tablets by mouth in the morning. Rescue kit. Use only as instructed. 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 Jardiance) Remote Patient Monitoring Vendor: [facility] Device(s): Connected Scale Continuous Monitoring Device Self [...] Classes - JULIA Class D - Inhaled Stoncajbgwmujb-QBER-CAVA Combination Inhaler (Sandro) Remote Patient Monitoring Vendor: Current Health Device(s): Continuous Monitoring Device Traditional Scale Self-Management plan High frequency nebulizer treatments every 4-6 hours around the clock Exacerbation plan Chest Xray Additional Comments: On continuous o2 2-3lpm Bipap at night Body mass index (BMI) of 40. 0 to 44.9 in adult 07/08/2023 07/09/2024 Overview: Per Obesity protocol Atherosclerosis of [place] co 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 pectoris 07/05/2023 [...] AM EDT Laboratory Lab Mobile Phlebotomy [facility] [address] [place] [address] Mvmg, Gml Mobile Home Draw [address] [place], [place] [address] 07/27/2024 2:15 PM EDT Office Visit Interventional Pain Center, [facility] [address] [place] [address] Gely Gilmore MD [address] [place] [address] [place] [address] 07/28/2024 6:00 AM EDT Anticoagulation Centralized Clinical Pharmacy Services, Oscar Peace [address] [place] [address] [place] [address] [facility], [facility] [address] [place] [address] 08/03/2024 3:00 PM EDT Office Visit Orthopaedics [facility] [address] [place] [address] Cm Dawson, DO [address] [place] [address] 08/10/2024 12:20 PM EDT Office Visit [facility] [address] [place] [phone] Charley Crane MD [address] [place] [address] 09/02/2024 3:00 PM EST Office Visit Sleep Disorders Ctr [facility] [address] [place] [phone] Audrey Lee, DO [address] [place] [address] Health Maintenance Due Date Last Done Comments Alpha-1 Antitrypsin 1974 CKD PHOS USE SMARTSET 74353 1974 DTap/Tdap Vaccines (1 - Tdap) 1975 [...] 04/28/2024, , 09/09/2023 CKD HGB USE SMARTSET [address] 06/15/202506/15, 06/15/2024, 05/27/2024, Additional history exists Diabetic [...] filedocumented as of this encounter Care Teams Aircraft Powertrain Repairer Relationship Specialty Start Date End Date Charley Crane MD [address] [place] [address] PCP - General Internal Medicine 06/04/23 documented as of this encounter
[2024-07-21] MEDS ORDERED: ENALAPRIL MALEATE 10 MG TAB PO SCH (09:00)
[2024-07-21] MEDS ORDERED: NON-FORMULARY MEDICATION (Fluticasone-Umeclidin-Vilanter [Trelegy Ellipta] 100-62.5-25 mcg INH SCH (09:00)
[2024-07-21] MEDS: EMPAGLIFLOZIN 10 MG TAB PO SCH (09:27)
[2024-07-21] MEDS: PANTOprazole 40 MG TAB PO SCH (09:27)
[2024-07-21] MEDS: carvediloL 3.125 MG TAB PO SCH (09:27)
[2024-07-21] MEDS: FUROSEMIDE 40 MG/4 ML VIAL IV SCH ×2 (09:27→17:18)
[2024-07-21] MEDS: MONTELUKAST SODIUM 10 MG TABLET PO SCH (09:27)
[2024-07-21] MEDS: FLUTICASONE FUROATE 200MCG 14 PUFFS/INHALER INH SCH (09:28)
[2024-07-21] MEDS: UMECLIDINIUM/VILANTEROL 62.5/25MCG 7 PUFFS/INHALER INH SCH (09:28)
[2024-07-21] MEDS: FLUTICASONE PROPIONATE NA SPR 16 GM BTL SCH (09:29)
[2024-07-21] MEDS: ALBUT/IPRATROP 3MG/0.5MG NEB 3 ML VIAL NEB SCH (09:53)
[2024-07-21] MEDS: FORMOTEROL 20 MCG/2 ML VIAL NEB SCH (09:57)
--- NOTE | 2024-07-21 10:23 | Hospitalist Progress Note ---
Date of Service July 21, 2024 Assessment & Plan (1) Obesity hypoventilation syndrome: (2) Acute on chronic heart failure with preserved ejection fraction: (3) Acute respiratory failure with hypoxia and hypercarbia: Plan Pt is a 68yoM with PMHx significant for chronic diastolic heart failure, A- fib/history DVT on Coumadin, valvular heart disease, hypertension, hyperlipidemia, chronic respiratory failure secondary to pulmonary hypertension, COPD, OHS on BiPAP, DM2, chronic anemia presenting from home with trouble breathing. History obtained from patient's daughter via telephone as well as patient in the room. Daughter states that he was discharged home from rehab in April and at that time was able to walk around and do things for himself. However she states that once he got home he "planted" himself on the chair and would not get up. States he is not fluid restricting as has been advised. States that he does have home PT services but they have not been getting him up. States he just chooses not to walk. States he does not have portable oxygen but does use oxygen with 2 L at home. States that he started with the trouble breathing about a week ago but it has progressed. States it sounded like there was a rattle in his chest for the last 1 to 2 weeks. Also concerned about wounds in his buttock region. States that they have been present since discharge from acute rehab. States that he has bathed twice since he has been home from rehab. Daughter notes that her typically helps him get cleaned up. Patient is alert and oriented and able to converse even with BiPAP on his face. Acute on chronic respiratory failure with hypoxia and hypercarbia Obesity hypoventilation syndrome On 2 L home oxygen Patient hypoxic on arrival, requiring BiPAP support VBG with pH of 7.30, pCO2 of 77 and bicarb of 38 Chest x-ray concerning for fluid overload and possible pneumonitis CT chest - mosaic groundglass densities in bilateral lungs which could be from small airway inflammation Respiratory BioFire negative Pro-Jorge negative Continue home nebulized bronchodilators Continue with BiPAP, wean as tolerated Pulmonology consulted, appreciate recs Has been on intravenous ceftriaxone and will add doxycycline Prednisone for a 5-day course as per the environmental maintenance worker Will observe Acute on chronic congestive heart failure Admitted with bilateral leg cellulitis with increased swelling was for the last few days Denies any chest pain and/or palpitation Repeat echo pending Patient received IV Lasix 40 mg in the ED, continue with IV Lasix 40 mg daily Hold home torsemide, will hold home spironolactone with noted hyperkalemia (see below) Will place Barron for accurate measurements, Monitor I's and O's, daily weights Cardiology consulted, appreciate recs Continue to monitor on telemetry Lower extremity cellulitis Lower extremity edema Bilateral lower extremities with warmth and erythema, right greater than left Noted lower extremity swelling, significant Started on IV Rocephin and Daptomycin On daily IV Lasix 40 mg as noted above which will help with her edema Continue to monitor Will check MRSA- If negative will discontinue daptomycin Buttock wounds Wound nurse consult On IV Rocephin and daptomycin as noted above Continue to monitor for need for surgical debridement Hyperkalemia Potassium 5.7 on admission Hold home potassium supplements Holding home spironolactone as noted above Continue to monitor with a.m. labs Potassium level remains elevated at 5.5 will hold losartan Atrial fibrillation EKG noting A-fib with slow ventricular response continue home Coreg patient currently therapeutically anticoagulated with warfarin, INR 2.5 Cardiology consulted as above Follow INR, continue to monitor on telemetry-INR remains therapeutic at 2.5 Continue other home meds as ordered CODE STATUS: Full code per discussion with patient Diet: Heart healthy, DM2 with fluid restriction of 1500 mL DVT prophylaxis: On warfarin, currently therapeutic Dispo: Admit to PCU telemetry Admission and Anticipated Discharge Date Admission Date: July 20, 2024 Subjective 07/21/2024 The patient was seen and examined in telemetry unit He has been complaining of increasing leg swelling redness and also increasing shortness of breath worse for the last day or 2 Has had BiPAP last night and feeling little bit better this morning Denies any chest pain and/or palpitation, no abdominal pain nausea and or vomiting Review of Systems Review of Systems: All systems reviewed and are unremarkable except noted below Physical Exam Physical Exam: lying in bed with acute distress due to shortness of breath Constitutional: well developed, well nourished, + ill appearing and + morbidly obese Eyes: PERRL, conjunctivae normal, anicteric sclerae ENMT: external ear and nose normal, oropharynx normal Neck: trachea midline, no thyromegaly Respiratory: + respiratory distress Auscultation: + diminished lung sounds, + crackles and + wheezes Cardiovascular: Rate/Rhythm: + irregularly irregular Heart Sounds: normal S1 and normal S2; no murmur Extremities: + edema ( 1-2+ bilateral leg edema with redness involving the legs) Gastrointestinal (Abdomen): Inspection/Auscultation: + abdomen distended and normal bowel sounds Percussion/Palpation: abdomen soft; abdomen nontender Musculoskeletal: no acute arthritis involving any of the joints Neurologic: normal touch/pain/proprioception and moves all extremities; no focal motor deficits Lymphatic: no cervical or axillary lymphadenopathy Results & Data Results & Data Vital Signs (Past 12 Hours) Vital Signs Temp Pulse Pulse Resp BP Pulse Ox O2 Del Method 07/21/24 09:53 68 20 98 Nasal Cannula 07/21/24 08:26 36.8 C 66 21 105/54 L 95 Nasal Cannula 07/21/24 03:50 67 21 94 07/21/24 03:25 37.1 C 66 14 124/52 L 96 BiPAP 07/20/24 23:41 36.7 C 67 18 132/67 98 BiPAP 07/20/24 23:00 61 17 96 07/20/24 22:41 63 O2 Flow Rate FiO2 07/21/24 09:53 4 07/21/24 08:26 4 07/21/24 03:50 30 07/21/24 03:25 07/20/24 23:41 07/20/24 23:00 30 07/20/24 22:41 Laboratory Results Short CBC 07/20/24 07/21/24 Range/Units 14:30 05:29 WBC 8.67 5.35 (4.8-10.8) K/ul Hgb 9.5 L 9.3 L (14.0-18.0) g/dl Hct 32.7 L 30.8 L (42.0-52.0) % Plt Count 239 230 (130-400) K/uL BMP 07/20/24 07/21/24 14:30 05:29 Sodium 136 138 Potassium 5.7 H 5.5 H Chloride 94 L 95 L Carbon Dioxide 38 H 35 H BUN 44 H 43 H Creatinine 1.01 0.90 Glucose 122 H 141 H Calcium 9.3 9.0 Liver Function 07/20/24 07/21/24 Range/Units 14:30 05:29 Total Bilirubin 0.5 0.4 (0.2-1.0) mg/dl AST 21 17 (13-39) U/L ALT 16 14 (7-52) U/L Alkaline Phosphatase 99 85 (34-104) U/L Albumin 4.1 3.6 (3.4-5.0) gm/dl Urine 07/20/24 Range/Units 17:45 Urine Color Yellow Urine Appearance Clear (Clear) Urine pH 5.0 (4.5-7.5) Ur Specific [place] 1.009 (1.000-1.030) Urine Protein Negative (Negative) Urine Glucose (UA) 2+ H (Negative) Medications Administered Current Inpatient Medications Albuterol (Albuterol Hfa 8 Gm Inhaler) 2 puffs INH Q6H PRN PRN Reason: Shortness Of Breath Or Wheezing Stop: 08/19/24 18:42 Albuterol (Albut/Ipratrop 3mg/0.5mg Neb 3 Ml Vial) 3 ml NEB Q4R [facility]; Protocol Stop: 08/20/24 09:59 Last Admin: 07/21/24 09:53 Dose: 3 ml Budesonide (Budesonide 0.5 Mg/2 Ml Vial (Pulmicort)) 0.5 mg NEB BIDR [facility] Stop: 08/20/24 18:59 Carvedilol (Carvedilol 3.125 Mg Tab) 3.125 mg PO BIDM [facility] Stop: 08/20/24 07:59 Last Admin: 07/21/24 09:27 Dose: 3.125 mg Dextrose (Dextrose 50% 50 Ml Syringe) 25 - 50 ml IV UD PRN; Protocol PRN Reason: Hypoglycemia Protocol Stop: 08/19/24 18:42 Empagliflozin (Empagliflozin 10 Mg Tab) 10 mg PO QAM [facility] Stop: 08/20/24 08:59 Last Admin: 07/21/24 09:27 Dose: 10 mg Enalapril Maleate (Enalapril Maleate 10 Mg Tab) 10 mg PO DAILY [facility] Stop: 08/20/24 08:59 Fluticasone Propionate (Fluticasone Propionate Na Spr 16 Gm Btl) 2 sprays NA DAILY [facility] Stop: 08/20/24 08:59 Last Admin: 07/21/24 09:29 Dose: 2 sprays Formoterol Fumarate (Formoterol 20 Mcg/2 Ml Vial) 20 mcg NEB BIDR [facility] Stop: 08/20/24 09:59 Last Admin: 07/21/24 09:57 Dose: 20 mcg Furosemide (Furosemide 40 Mg/4 Ml Vial) 40 mg IV DAILY [facility] Stop: 08/20/24 08:59 Last Admin: 07/21/24 09:27 Dose: 40 mg Glucagon (Glucagon For Inj 1 Mg Vial) 1 mg SQ UD PRN; Protocol PRN Reason: Hypoglycemia Protocol Stop: 08/19/24 18:42 Glucose (Glucose 40% Gel 15 Gm Tube) 15 - 30 gm PO UD PRN; Protocol PRN Reason: Hypoglycemia Protocol Stop: 08/19/24 18:42 Glucose (Glucose 10 Tab/Tube) 4 - 8 tab PO UD PRN; Protocol PRN Reason: Hypoglycemia Treatment Stop: 08/19/24 18:42 Guaifenesin (Guaifenesin 600 Mg Tabcr) 1,200 mg PO Q12 [facility] Stop: 08/20/24 20:59 Acetaminophen (Ofirmev) 1,000 mg in 100 mls @ 400 mls/hr IV Q8H [facility] Stop: 07/23/24 16:59 Last Admin: 07/21/24 09:28 Dose: 400 mls/hr Ceftriaxone Sodium (Rocephin) 2,000 mg in 50 mls @ 100 mls/hr IV Q24H [facility] Stop: 07/27/24 17:59 Last Infusion: 07/20/24 19:29 Dose: Infused Daptomycin 400 mg/ Syringe 8 mls @ 4 mls/min IV Q24H [facility]; Protocol Stop: 07/27/24 18:59 Last Admin: 07/20/24 19:45 Dose: 4 mls/min Insulin Aspart (Insulin Aspart Per Unit Charge) 0 units SC ACHS [facility] Stop: 08/19/24 20:59 Last Admin: 07/21/24 09:39 Dose: 9 units Miscellaneous (Carbohydrates For Hypoglycemia ) 15 - 30 gm PO UD PRN PRN Reason: Hypoglycemia Protocol Stop: 08/19/24 18:42 Montelukast Sodium (Montelukast Sodium 10 Mg Tablet) 10 mg PO QAM [facility] Stop: 08/20/24 08:59 Last Admin: 07/21/24 09:27 Dose: 10 mg Pantoprazole Sodium (Pantoprazole 40 Mg Tab) 40 mg PO DAILY [facility] Stop: 08/20/24 08:59 Last Admin: 07/21/24 09:27 Dose: 40 mg Sodium Chloride (Sodium Chlor 7% 4 Ml Neb) 4 ml NEB BIDR [facility] Stop: 08/20/24 18:59 Warfarin Sodium (Warfarin Sod 10 Mg Tab) 10 mg PO [id number] [facility] Stop: 08/19/24 18:59 Last Admin: 07/20/24 19:44 Dose: 10 mg Warfarin Sodium (Warfarin Sod 5 Mg Tab) 15 mg PO [id number] [facility] Stop: 08/20/24 15:59
--- NOTE | 2024-07-21 10:26 | Pulmonary Consultation ---
Date of Consultation July 21, 2024 Assessment & Plan (1) Hypoxia: (2) Abnormal CT scan, chest: (3) Obesity hypoventilation syndrome: (4) Acute on chronic heart failure with preserved ejection fraction: (5) O2 dependent: Plan Patient with findings of bronchitis. Agree with empiric antibiotics to cover for gram-negative organisms with ceftriaxone. Will add doxycycline for 5 days total. Daptomycin has no role in lung infections. Will transition powdered inhalers to formoterol and budesonide twice daily. Continue hypertonic saline Mucinex for airway clearance. Will add prednisone at a dose of 40 mg 5 days daily. Patient would benefit from outpatient follow-up with PFTs and pulmonary follow-up in the clinic. Continue with BiPAP as needed. Wean O2 to maintain sats of 89 to 92% Thanks for the consult. Please call with questions. History of Present Illness Reason for Consultation: Acute hypoxemia and hypercapnia Attending Physician: Darrick Henderson MD History of Present Illness 68-year-old male presenting with increasing shortness of breath and cough. Patient feels that he is breathing a bit better today, but still has sputum production when he coughs. He was actually seen by me in the hospital in April for similar symptoms. Patient is currently on Rocephin, 40 mg Lasix daily and inhalers. I switched inhalers to nebulizers. He is now on formoterol and budesonide. I have also added hypertonic saline twice daily and Mucinex twice daily. CT chest 07/20/2024 revealed mosaic groundglass densities findings of bronchiolitis. Allergies Allergy/AdvReac Type Severity Reaction Status Date / Time No Known Allergies Allergy Verified 05/12/24 23:12 Home Medications Medication Instructions Recorded Confirmed Type empagliflozin 10 mg tablet 10 mg PO QAM 06/10/23 07/20/24 History enalapril maleate 10 mg tablet 10 mg PO DAILY 06/10/23 07/20/24 History fluticasone fur. 100 mcg-umeclid 1 inh inhalation DAILY 06/10/23 07/20/24 History 62.5 mcg-vilant 25 mcg inhalat.powder (Trelegy Ellipta) [id number] 300 mcg-K 60 1 tab PO DAILY 06/10/23 07/20/24 History mcg-lycop 600 mcg-lutein 300 mcg tablet (Centrum Silver Men) pantoprazole 40 mg tablet,delayed 40 mg PO DAILY 06/10/23 07/20/24 History release potassium chloride 10 mEq 10 meq PO Q OTHER DAY 06/10/23 07/20/24 History tablet,extended release warfarin 10 mg tablet See Rx Instructions .Route .COMPLEX 06/10/23 07/20/24 History carvedilol 3.125 mg tablet 3.125 mg PO BIDM #60 tabs 06/17/23 07/20/24 Rx albuterol sulfate 90 mcg/actuation 2 puff inhalation Q6H PRN 05/12/24 07/20/24 History aerosol inhaler Shortness Of Breath Or Wheezing atorvastatin 80 mg tablet 80 mg PO QAM 05/12/24 07/20/24 History fluticasone propionate 50 2 spray intranasal DAILY 05/12/24 07/20/24 History mcg/actuation nasal spray,suspension ketoconazole 2 % topical cream 1 applic topical DIRECTED PRN 05/12/24 07/20/24 History DRY SKIN PATCHES prednisone 20 mg tablet 40 mg PO DAILY PRN COPD RESCUE KIT 05/12/24 07/20/24 History torsemide 20 mg tablet 40 mg PO QAM 05/12/24 07/20/24 History ipratropium 0.5 mg-albuterol 3 mg 3 ml inhalation Q6H Shortness Of 05/19/24 07/20/24 Rx (2.5 mg base)/3 mL nebulization Breath #0 mL soln sodium chloride 7 % for 4 ml NEB BIDR #120 mL 05/19/24 07/20/24 Rx nebulization spironolactone 25 mg tablet 12.5 mg (1/2 x 25 mg) PO DAILY #30 05/19/24 07/20/24 Rx tabs doxycycline hyclate 100 mg capsule 0 mg PO BID 07/20/24 07/20/24 History montelukast 10 mg tablet 10 mg PO QAM 07/20/24 07/20/24 History nystatin 100,000 unit/gram topical 1 applic topical BID affected area 07/20/24 07/20/24 History cream Patient History Medical History (Updated 07/20/24 @ 15:47 by Jarad Corrigan DO) Pulmonary hypertension Hx of smoking Chronic congestive heart failure Hx of deep venous thrombosis Surgical History (Updated 06/10/23 @ 14:15 by Pham iLndo PA-C) No pertinent past surgical history Family History (Updated 06/10/23 @ 14:17 by Pham Lindo PA-C) Other Diabetes Social History (Updated 06/10/23 @ 13:20 by Pham Lindo PA-C) Smoking Status: Former smoker Tobacco Type: Cigarettes Second Hand Exposure: Yes; Do You Dip or Chew Tobacco: No; Hx Alcohol Use: No Hx Substance Use: No Preferred Language: Dominican Communication Ability: Effective 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 Morbidly obese. Eyes: Pupils are equal round and reactive to light. Conjunctivae are normal. Anicteric sclera. Ears nose, mouth and throat: Mallampati class 3. Normal posterior oropharynx. Uvula is midline. Neck: Trachea is midline. Visual inspection is normal. Respiratory: Diffusely diminished with coarse crackles. Cardiovascular: Regular rate and rhythm. No murmurs. No edema. Gastrointestinal: Normal bowel sounds, soft, nontender and nondistended. No hepatosplenomegaly noted. Musculoskeletal: No cyanosis. Patient is able to move all extremities. Strength is 5 out of 5 in the upper and lower extremities. Skin: No rashes, warm dry and intact. Neurologic: No obvious focal neurological deficits seen. Psychiatric: Alert and oriented x3 with a euthymic affect. Results & Data Results & Data Vital Signs (Past 12 Hours) Vital Signs Temp Pulse Pulse Resp BP Pulse Ox O2 Del Method 07/21/24 09:53 68 20 98 Nasal Cannula 07/21/24 08:26 36.8 C 66 21 105/54 L 95 Nasal Cannula 07/21/24 03:50 67 21 94 07/21/24 03:25 37.1 C 66 14 124/52 L 96 BiPAP 07/20/24 23:41 36.7 C 67 18 132/67 98 BiPAP 07/20/24 23:00 61 17 96 07/20/24 22:41 63 O2 Flow Rate FiO2 07/21/24 09:53 4 07/21/24 08:26 4 07/21/24 03:50 30 07/21/24 03:25 07/20/24 23:41 07/20/24 23:00 30 07/20/24 22:41 PG Care Time/CCT Total # of Minutes Spent Total Time Spent with Patient: Total time spent is greater than 50% in coordination of care (as documented) at patient's floor/unit and/or counseling patient: Coding Level of Care Code 69122 INT INP/OBS CARE 3/75MIN Diagnoses Hypoxia R09.[address] scan, chest R93.89 Obesity hypoventilation syndrome E66.2 Acute on chronic heart failure with preserved ejection fraction I50.33 O2 dependent Z99.81
--- NOTE | 2024-07-21 10:38 | Cardiology Consultation ---
Date of Consultation July 21, 2024 Assessment & Plan (1) Acute on chronic heart failure with preserved ejection fraction: (2) Acute respiratory failure with hypoxia and hypercarbia: (3) Bilateral cellulitis of lower leg: (4) Hyperkalemia: (5) Hypotension: (6) Chronic a-fib: Plan Acute decompensated right heart failure, HFpEF, moderately severe volume overload Morbid obesity, obesity hypoventilation syndrome, severe pulmonary hypertension Noncompliance Chronic atrial fibrillation with a slow ventricular response Hypotension Hyperkalemia Hypoxia hypercarbic respiratory failure Bilateral lower extremity cellulitis, buttocks wound IV furosemide, 40 mg twice per day Fluid restrict to 1500 mL Sodium restrict to less than 1500 mg/day Hold supplemental potassium and spironolactone, RE: Hyperkalemia Hold enalapril, RE: Hypotension Hold carvedilol, RE: bradycardia Maintain telemetry Continue anticoagulation Continue atorvastatin Supervising Physician Co-Signing Physician Notes I have personally performed a history and physical examination on the patient. I have reviewed the advance practitioner's documentation, and I agree with, and take responsibility for the plan of care. 68-year-old male with acute on chronic heart failure with preserved ejection fraction, obesity hypoventilation syndrome with severe pulmonary hypertension and noncompliance. Recommend IV diuresis, fluid and sodium restriction. Monitor fluid balance, daily weight, GFR, and electrolytes. CPAP QHS. I spent a total of 35 minutes on the date of service in preparation, delivery, and documentation of the care provided to this patient, excluding any time spent in the performance of separately billed services. Hemanth Patrick DO [facility] History of Present Illness Reason for Consultation: CHF exacerbation Requesting Physician: Dr. Benson Attending Physician: Dr. Darrick Henderson MD History of Present Illness Admitted to [facility] in April, discharged to rehab. Noncompliant following rehabilitation stay at [facility]. Recently began to experience cough, worsening shortness of breath, acute on chronic fluid retention. Admitted on July 20, 2024 with acute on chronic respiratory failure with hypoxia and hypercapnia, acute decompensated right heart failure, bilateral lower extremity cellulitis, buttocks wound. Hyperkalemia noted on presentation, 5.7. BP hypotensive this AM. Telemetry with chronic atrial fibrillation with a slow ventricular response. INR therapeutic. Problem list: Morbid obesity obesity hypoventilation syndrome, Chronic respiratory failure with hypoxia/COPD; O2 dependent, BIPAP QHS Severe pulmonary hypertension Type II diabetes mellitus COPD Chronic A-fib, anticoagulated on Coumadin History of DVT Chronic venous insufficiency for which he has had multiple interventions on his LE at outside facilities in [place]. Chronic HFpEF Hypertension Dyslipidemia Family History: Father with premature CAD, passing at 65. Mother with Alzheim er's. Social History: Former smoker, quitting in 2013. Former smokeless tobacco user, quitting in 2012. No significant alcohol. Allergies Allergy/AdvReac Type Severity Reaction Status Date / Time No Known Allergies Allergy Verified 05/12/24 23:12 Home Medications Medication Instructions Recorded Confirmed Type empagliflozin 10 mg tablet 10 mg PO QAM 06/10/23 07/20/24 History enalapril maleate 10 mg tablet 10 mg PO DAILY 06/10/23 07/20/24 History fluticasone fur. 100 mcg-umeclid 1 inh inhalation DAILY 06/10/23 07/20/24 History 62.5 mcg-vilant 25 mcg inhalat.powder (Trelegy Ellipta) admkjesm-yb-bjtra 300 mcg-K 60 1 tab PO DAILY 06/10/23 07/20/24 History mcg-lycop 600 mcg-lutein 300 mcg tablet (Centrum Silver Men) pantoprazole 40 mg tablet,delayed 40 mg PO DAILY 06/10/23 07/20/24 History release potassium chloride 10 mEq 10 meq PO Q OTHER DAY 06/10/23 07/20/24 History tablet,extended release warfarin 10 mg tablet See Rx Instructions .Route .COMPLEX 06/10/23 07/20/24 History carvedilol 3.125 mg tablet 3.125 mg PO BIDM #60 tabs 06/17/23 07/20/24 Rx albuterol sulfate 90 mcg/actuation 2 puff inhalation Q6H PRN 05/12/24 07/20/24 History aerosol inhaler Shortness Of Breath Or Wheezing atorvastatin 80 mg tablet 80 mg PO QAM 05/12/24 07/20/24 History fluticasone propionate 50 2 spray intranasal DAILY 05/12/24 07/20/24 History mcg/actuation nasal spray,suspension ketoconazole 2 % topical cream 1 applic topical DIRECTED PRN 05/12/24 07/20/24 History DRY SKIN PATCHES prednisone 20 mg tablet 40 mg PO DAILY PRN COPD RESCUE KIT 05/12/24 07/20/24 History torsemide 20 mg tablet 40 mg PO QAM 05/12/24 07/20/24 History ipratropium 0.5 mg-albuterol 3 mg 3 ml inhalation Q6H Shortness Of 05/19/24 07/20/24 Rx (2.5 mg base)/3 mL nebulization Breath #0 mL soln sodium chloride 7 % for 4 ml NEB BIDR #120 mL 05/19/24 07/20/24 Rx nebulization spironolactone 25 mg tablet 12.5 mg (1/2 x 25 mg) PO DAILY #30 05/19/24 07/20/24 Rx tabs doxycycline hyclate 100 mg capsule 0 mg PO BID 07/20/24 07/20/24 History montelukast 10 mg tablet 10 mg PO QAM 07/20/24 07/20/24 History nystatin 100,000 unit/gram topical 1 applic topical BID affected area 07/20/24 07/20/24 History cream Patient History Medical History Pulmonary hypertension Hx of smoking Chronic congestive heart failure Hx of deep venous thrombosis Surgical History No pertinent past surgical history Family History Other Diabetes Social History Smoking Status: Former smoker Tobacco Type: Cigarettes Second Hand Exposure: Yes; Do You Dip or Chew Tobacco: No; Hx Alcohol Use: No Hx Substance Use: No Preferred Language: Yemeni Communication Ability: Effective Director Ehs Required: No Beliefs That Will Affect Care: None Current Living Situation: Family Current Living Situation Comment: Lives with Sandeep (son) and Maira Coronado (dtr in law) Other Information That Helps Us Care for You: No Feels Safe at Home: Yes Safety Concerns: Feels Safe At This Time Assistive Devices: BiPap and Oxygen - Continuous Review of Systems Review of Systems: Complete Review of Systems is as stated above, negative, or noncontributory Physical Exam Physical Exam: General: A&Ox3. Unable to talk in complete sentences. HENT: Normocephalic. Atraumatic. Eyes: PER. Conjunctiva pink, sclera clear. Neck: + JVD. Heart: Regular at 66 bpm. No murmur. No rub. Lungs: Diminished. Decreased. Clear to auscultation anteriorly Abdomen: +BS. Soft. Nontender. No masses or organomegaly. Extremities: Barron catheter. Right greater than left lower extremity erythema suggestive of cellulitis. 2-3+ edema. No cyanosis Limited neurological examination is without focal deficits. Pulses: radial=2/4, posterior tibial=0/4. Results & Data Vital Signs (Past 12 Hours) Vital Signs Temp Pulse Pulse Resp BP Pulse Ox O2 Del Method 07/21/24 09:53 68 20 98 Nasal Cannula 07/21/24 08:26 36.8 C 66 21 105/54 L 95 Nasal Cannula 07/21/24 03:50 67 21 94 07/21/24 03:25 37.1 C 66 14 124/52 L 96 BiPAP 07/20/24 23:41 36.7 C 67 18 132/67 98 BiPAP 07/20/24 23:00 61 17 96 07/20/24 22:41 63 O2 Flow Rate FiO2 07/21/24 09:53 4 07/21/24 08:26 4 07/21/24 03:50 30 07/21/24 03:25 07/20/24 23:41 07/20/24 23:00 30 07/20/24 22:41 Laboratory Results Cardiac Enzymes 07/20/24 07/21/24 Range/Units 14:30 05:29 AST 21 17 (13-39) U/L Troponin I High Sens 18.1 (0-20) pg/ml B-Natriuretic Peptide 334 H (0-100) pg/ml Coagulation 07/20/24 07/21/24 Range/Units 14:30 05:29 PT 25.0 H 25.1 H (9.0-12.0) Seconds B-Natriuretic Peptide 334 H (0-100) pg/ml CBC 07/20/24 07/21/24 Range/Units 14:30 05:29 WBC 8.67 5.35 (4.8-10.8) K/ul RBC 3.44 L 3.29 L (4.70-6.10) M/uL Hgb 9.5 L 9.3 L (14.0-18.0) g/dl Hct 32.7 L 30.8 L (42.0-52.0) % Plt Count 239 230 (130-400) K/uL Neut # (Auto) 7.04 H 4.91 (1.40-6.50) K/uL Lymph # (Auto) 0.72 L 0.34 L (1.20-3.40) K/uL [facility] # (Auto) 0.66 H 0.08 L (0.11-0.59) K/uL Eos # (Auto) 0.16 0.00 (0.00-0.50) K/uL Baso # (Auto) 0.06 0.00 (0.00-0.20) K/uL Comprehensive Metabolic Panel 07/20/24 07/21/24 Range/Units 14:30 05:29 Sodium 136 138 (136-145) mmol/L Potassium 5.7 H 5.5 H (3.5-5.1) mmol/L Chloride 94 L 95 L (98-107) mmol/L Carbon Dioxide 38 H 35 H (21-32) mmol/L BUN 44 H 43 H (6-23) mg/dl Creatinine 1.01 0.90 (0.6-1.4) mg/dl Glucose 122 H 141 H (70-99(Fasting)) mg/dl Calcium 9.3 9.0 (8.6-10.3) mg/dl AST 21 17 (13-39) U/L ALT 16 14 (7-52) U/L Alkaline Phosphatase 99 85 (34-104) U/L Total Protein 7.3 6.5 (6.0-8.3) gm/dl Albumin 4.1 3.6 (3.4-5.0) gm/dl Intake and Output 07/20/24 07/21/24 07/21/24 22:59 06:59 14:59 Intake Total 150 / 250 100 / 250 690 / 690 Output Total 1425 / 1425 700 / 700 Balance -1275 / -1175 100 / -1175 -10 / -10 Intake: IV 150 / 250 100 / 250 Acetaminophen 1,000 mg In 100 100 / 200 100 / 200 ml @ 400 mls/hr IV Q8H O[facility] Rx#: [id number] cefTRIAXone SODIUM 2,000 mg In 50 / 50 50 ml @ 100 mls/hr IV Q24H OMAY[facility] Rx#:[id number] Oral 690 / 690 Output: Urine Amount (Catheter) 1425 / 1425 700 / 700 Barron/Indwelling 1425 / 1425 700 / 700 Other: Weight 152.6 kg Weight Measurement Method Built in [facility]
[2024-07-21] MEDS: DOXYCYCLINE HYCLATE 100 MG CAP PO SCH (11:36)
[2024-07-21] MEDS: WARFARIN SOD 5 MG TAB PO SCH (17:14)
[2024-07-21] MEDS: SODIUM CHLOR 7% 4 ML NEB NEB SCH (20:11)
[2024-07-21] MEDS: BUDESONIDE 0.5 MG/2 ML VIAL (PULMICORT) NEB SCH (20:11)
[2024-07-21] MEDS: guaiFENesin 600 MG TABCR PO SCH (20:18)
[2024-07-22 07:23] LABS: Creatinine Clr Calc Pharmacy 100.1 ml/min; Est GFR (African American) 87.7 ml/min; Est GFR (Non-African American) 75.7 ml/min; Magnesium 2.1 mg/dl (1.7-2.4); Potassium 4.9 mmol/L (3.5-5.1)
[2024-07-22 07:32] LABS: INR 3.1 (0.9-1.1); Prothrombin Time 30.1 Seconds (9.0-12.0)
[2024-07-22] MEDS: predniSONE 20 MG TAB PO SCH (08:43)
--- NOTE | 2024-07-22 11:23 | Cardiology Progress Note ---
Date of Service July 22, 2024 Assessment & Plan (1) Acute on chronic heart failure with preserved ejection fraction: (2) Acute respiratory failure with hypoxia and hypercarbia: (3) Bilateral cellulitis of lower leg: (4) Hyperkalemia: (5) Hypotension: (6) Chronic a-fib: Plan Acute decompensated right heart failure, HFpEF, moderately severe volume overload Morbid obesity, obesity hypoventilation syndrome, severe pulmonary hypertension Noncompliance Chronic atrial fibrillation with a slow ventricular response Hypotension, resolved Hyperkalemia, resolved Hypoxia hypercarbic respiratory failure Bilateral lower extremity cellulitis, buttocks wound BiPAP when napping during the day and all night Increase IV furosemide to 60 mg twice per day Hold supplemental potassium and spironolactone for now Hold enalapril Hold carvedilol, RE: bradycardia Fluid restrict to 1500 mL Sodium restrict to less than 1500 mg/day Maintain telemetry Continue anticoagulation Continue atorvastatin Admission and Anticipated Discharge Date Admission Date: July 20, 2024 Supervising Physician Co-Signing Physician Notes I have personally performed a history and physical examination on the patient. I have reviewed the advance practitioner's documentation, and I agree with, and take responsibility for the plan of care. 68-year-old male with acute on chronic heart failure with preserved ejection fraction, obesity hypoventilation syndrome with severe pulmonary hypertension and noncompliance. Continue IV diuresis, fluid and sodium restriction. Monitor fluid balance, daily weight, GFR, and electrolytes. CPAP QHS. INR trending upward, repeat in AM. Consider holding warfarin tomorrow pending review. I spent a total of 30 minutes on the date of service in preparation, delivery, and documentation of the care provided to this patient, excluding any time spent in the performance of separately billed services. Hemanth Patrick DO, [facility] Subjective Patient seen and examined. Chart, medications, and telemetry reviewed. Cough and dyspnea improved, legs are still "angry." I's/O: -1175, -950, +100 mL (-202 mL overall) Review of Systems Review of Systems: Complete Review of Systems is as stated above, negative, or noncontributory Physical Exam Physical Exam: General: Lethargic HENT: Normocephalic. Atraumatic. Eyes: PER. Conjunctiva pink, sclera clear. Neck: + JVD. Heart: Regular at 60 bpm. No murmur. No rub. Lungs: Clear to auscultation anteriorly Abdomen: +BS. Soft. Nontender. No masses or organomegaly. Extremities: Barron catheter. Right greater than left lower extremity erythema (mildly improved) 2-3+ edema. No cyanosis Limited neurological examination is without focal deficits. Pulses: radial=2/4, posterior tibial=0/4. Results & Data Vital Signs (Past 12 Hours) Vital Signs Temp Pulse Pulse Resp BP Pulse Ox O2 Del Method 07/22/24 11:14 36.9 C 58 L 20 127/58 L 98 Room Air 07/22/24 10:17 63 18 97 Nasal Cannula 07/22/24 08:00 Nasal Cannula 07/22/24 08:00 65 07/22/24 08:00 37.0 C 69 20 120/62 94 Nasal Cannula 07/22/24 07:17 63 20 96 07/22/24 07:17 63 20 96 BiPAP 07/22/24 03:40 52 L 19 97 07/22/24 03:40 52 L 19 97 BiPAP 07/22/24 03:19 58 L 20 126/52 L 96 BiPAP 07/21/24 23:28 63 O2 Flow Rate FiO2 07/22/24 11:14 07/22/24 10:17 4 07/22/24 08:00 4 07/22/24 08:00 07/22/24 08:00 4 07/22/24 07:17 35 07/22/24 07:17 35 07/22/24 03:40 35 07/22/24 03:40 35 07/22/24 03:19 07/21/24 23:28 Laboratory Results Coagulation 07/22/24 Range/Units 06:43 PT 30.1 H (9.0-12.0) Seconds Comprehensive Metabolic Panel 07/22/24 Range/Units 06:43 Sodium 137 (136-145) mmol/L Potassium 4.9 (3.5-5.1) mmol/L Chloride 95 L (98-107) mmol/L Carbon Dioxide 37 H (21-32) mmol/L BUN 50 H (6-23) mg/dl Creatinine 1.02 (0.6-1.4) mg/dl Glucose 87 (70-99(Fasting)) mg/dl Calcium 9.0 (8.6-10.3) mg/dl Intake and Output 07/21/24 07/22/24 07/22/24 22:59 06:59 14:59 Intake Total 470 / 1650 150 / 1650 100 / 100 Output Total 675 / 2600 550 / 2600 Balance -205 / -950 -400 / -950 100 / 100 Intake: IV 150 / 350 100 / 350 100 / 100 Acetaminophen 1,000 mg In 100 100 / 300 100 / 300 100 / 100 ml @ 400 mls/hr IV Q8H [facility] Rx#: [id number] cefTRIAXone SODIUM 2,000 mg In 50 / 50 50 ml @ 100 mls/hr IV Q24H OMA[facility]RA Rx#:[id number] Oral 320 / 1300 50 / 1300 Output: Urine Amount (Catheter) 675 / 2600 550 / 2600 Barron/Indwelling 675 / 2600 550 / 2600
[2024-07-22] MEDS: FUROSEMIDE INJ 20 MG/2 ML VIAL IV ONE (12:14)
--- NOTE | 2024-07-22 12:42 | Hospitalist Progress Note ---
Date of Service July 22, 2024 Assessment & Plan (1) Obesity hypoventilation syndrome: (2) Acute on chronic heart failure with preserved ejection fraction: (3) Acute respiratory failure with hypoxia and hypercarbia: Plan Pt is a 68yoM with PMHx significant for chronic diastolic heart failure, A- fib/history DVT on Coumadin, valvular heart disease, hypertension, hyperlipidemia, chronic respiratory failure secondary to pulmonary hypertension, COPD, OHS on BiPAP, DM2, chronic anemia presenting from home with trouble breathing. History obtained from patient's daughter via telephone as well as patient in the room. Daughter states that he was discharged home from rehab in April and at that time was able to walk around and do things for himself. However she states that once he got home he "planted" himself on the chair and would not get up. States he is not fluid restricting as has been advised. States that he does have home PT services but they have not been getting him up. States he just chooses not to walk. States he does not have portable oxygen but does use oxygen with 2 L at home. States that he started with the trouble breathing about a week ago but it has progressed. States it sounded like there was a rattle in his chest for the last 1 to 2 weeks. Also concerned about wounds in his buttock region. States that they have been present since discharge from acute rehab. States that he has bathed twice since he has been home from rehab. Daughter notes that her typically helps him get cleaned up. Patient is alert and oriented and able to converse even with BiPAP on his face. Acute on chronic respiratory failure with hypoxia and hypercarbia Obesity hypoventilation syndrome On 2 L home oxygen Patient hypoxic on arrival, requiring BiPAP support VBG with pH of 7.30, pCO2 of 77 and bicarb of 38 Chest x-ray concerning for fluid overload and possible pneumonitis CT chest - mosaic groundglass densities in bilateral lungs which could be from small airway inflammation Respiratory BioFire negative Pro-Jorge negative Continue home nebulized bronchodilators Continue with BiPAP, wean as tolerated Pulmonology consulted, appreciate recs Has been on intravenous ceftriaxone and will add doxycycline Prednisone for a 5-day course as per the university registrar Clinically little better and would continue current management Will continue with the intravenous ceftriaxone and doxycycline and discontinue daptomycin Acute on chronic congestive heart failure Admitted with bilateral leg cellulitis with increased swelling was for the last few days Denies any chest pain and/or palpitation Repeat echo pending Patient received IV Lasix 40 mg in the ED, continue with IV Lasix 40 mg daily Hold home torsemide, will hold home spironolactone with noted hyperkalemia (see below) Will place Barron for accurate measurements, Monitor I's and O's, daily weights Cardiology consulted, appreciate recs Has had negative a little over 2 L of fluid Will increase Lasix 60 mg IV twice daily and monitor kidney function Will continue to monitor in the telemetry unit Lower extremity cellulitis Lower extremity edema Bilateral lower extremities with warmth and erythema, right greater than left Noted lower extremity swelling, significant Started on IV Rocephin and Daptomycin On daily IV Lasix 40 mg as noted above which will help with her edema Continue to monitor Will check MRSA- If negative will discontinue daptomycin Buttock wounds Wound nurse consult On IV Rocephin and daptomycin as noted above Continue to monitor for need for surgical debridement Continue with the wound care Hyperkalemia Potassium 5.7 on admission Hold home potassium supplements Holding home spironolactone as noted above Continue to monitor with a.m. labs Potassium level remains elevated at 5.5 will hold losartan Potassium level has been normalized and will hold oral potassium, spironolactone and losartan for now Atrial fibrillation EKG noting A-fib with slow ventricular response continue home Coreg patient currently therapeutically anticoagulated with warfarin, INR 2.5 Cardiology consulted as above Follow INR, continue to monitor on telemetry-INR remains therapeutic at 2.5 Continue other home meds as ordered CODE STATUS: Full code per discussion with patient Diet: Heart healthy, DM2 with fluid restriction of 1500 mL DVT prophylaxis: On warfarin, currently therapeutic Dispo: Admit to PCU telemetry Admission and Anticipated Discharge Date Admission Date: July 20, 2024 Subjective 07/21/2024 The patient was seen and examined in telemetry unit He has been complaining of increasing leg swelling redness and also increasing shortness of breath worse for the last day or 2 Has had BiPAP last night and feeling little bit better this morning Denies any chest pain and/or palpitation, no abdominal pain nausea and or vomiting 07/22/2024 The patient was seen and examined in telemetry unit He has been feeling a little better since admission Still complains to have leg pain and leg swelling Denies any chest pain and/or palpitation Review of Systems Review of Systems: All systems reviewed and are unremarkable except noted below Physical Exam Physical Exam: lying in bed with acute distress due to shortness of breath Constitutional: well developed, well nourished, + ill appearing and + morbidly obese Eyes: PERRL, conjunctivae normal, anicteric sclerae ENMT: external ear and nose normal, oropharynx normal Neck: trachea midline, no thyromegaly Respiratory: + respiratory distress Auscultation: + diminished lung sounds, + crackles and + wheezes Cardiovascular: Rate/Rhythm: + irregularly irregular Heart Sounds: normal S1 and normal S2; no murmur Extremities: + edema ( 1-2+ bilateral leg edema with redness involving the legs) Gastrointestinal (Abdomen): Inspection/Auscultation: + abdomen distended and normal bowel sounds Percussion/Palpation: abdomen soft; abdomen nontender Neurologic: normal touch/pain/proprioception and moves all extremities; no focal motor deficits Lymphatic: no cervical or axillary lymphadenopathy Results & Data Results & Data Vital Signs (Past 12 Hours) Vital Signs Temp Pulse Pulse Resp BP Pulse Ox O2 Del Method 07/22/24 11:14 36.9 C 58 L 20 127/58 L 98 Room Air 07/22/24 10:17 63 18 97 Nasal Cannula 07/22/24 08:00 Nasal Cannula 07/22/24 08:00 65 07/22/24 08:00 37.0 C 69 20 120/62 94 Nasal Cannula 07/22/24 07:17 63 20 96 07/22/24 07:17 63 20 96 BiPAP 07/22/24 03:40 52 L 19 97 07/22/24 03:40 52 L 19 97 BiPAP 07/22/24 03:19 58 L 20 126/52 L 96 BiPAP O2 Flow Rate FiO2 07/22/24 11:14 07/22/24 10:17 4 07/22/24 08:00 4 07/22/24 08:00 07/22/24 08:00 4 07/22/24 07:17 35 07/22/24 07:17 35 07/22/24 03:40 35 07/22/24 03:40 35 07/22/24 03:19 Laboratory Results [facility] 07/22/24 06:43 Sodium 137 Potassium 4.9 Chloride 95 L Carbon Dioxide 37 H BUN 50 H Creatinine 1.02 Glucose 87 Calcium 9.0 Medications Administered Current Inpatient Medications Albuterol (Albuterol Hfa 8 Gm Inhaler) 2 puffs INH Q6H PRN PRN Reason: Shortness Of Breath Or Wheezing Stop: 08/19/24 18:42 Albuterol (Albut/Ipratrop 3mg/0.5mg Neb 3 Ml Vial) 3 ml NEB Q4R [facility]; Protocol Stop: 08/20/24 09:59 Last Admin: 07/22/24 10:17 Dose: 3 ml Budesonide (Budesonide 0.5 Mg/2 Ml Vial (Pulmicort)) 0.5 mg NEB BIDR [facility] Stop: 08/20/24 18:59 Last Admin: 07/22/24 07:06 Dose: 0.5 mg Carvedilol (Carvedilol 3.125 Mg Tab) 3.125 mg PO BIDM [facility] Stop: 08/20/24 07:59 Last Admin: 07/21/24 09:27 Dose: 3.125 mg Dextrose (Dextrose 50% 50 Ml Syringe) 25 - 50 ml IV UD PRN; Protocol PRN Reason: Hypoglycemia Protocol Stop: 08/19/24 18:42 Doxycycline Hyclate (Doxycycline Hyclate 100 Mg Cap) 100 mg PO BID [facility] Stop: 07/26/24 10:29 Last Admin: 07/22/24 08:41 Dose: 100 mg Empagliflozin (Empagliflozin 10 Mg Tab) 10 mg PO QAM [facility] Stop: 08/20/24 08:59 Last Admin: 07/22/24 08:41 Dose: 10 mg Enalapril Maleate (Enalapril Maleate 10 Mg Tab) 10 mg PO DAILY [facility] Stop: 08/20/24 08:59 Fluticasone Propionate (Fluticasone Propionate Na Spr 16 Gm Btl) 2 sprays NA DAILY [facility] Stop: 08/20/24 08:59 Last Admin: 07/22/24 08:42 Dose: 2 sprays Formoterol Fumarate (Formoterol 20 Mcg/2 Ml Vial) 20 mcg NEB BIDR [facility] Stop: 08/20/24 09:59 Last Admin: 07/22/24 07:06 Dose: 20 mcg Furosemide (Furosemide 40 Mg/4 Ml Vial) 60 mg IV [id number] [facility] Stop: 08/21/24 16:59 Glucagon (Glucagon For Inj 1 Mg Vial) 1 mg SQ UD PRN; Protocol PRN Reason: Hypoglycemia Protocol Stop: 08/19/24 18:42 Glucose (Glucose 40% Gel 15 Gm Tube) 15 - 30 gm PO UD PRN; Protocol PRN Reason: Hypoglycemia Protocol Stop: 08/19/24 18:42 Glucose (Glucose 10 Tab/Tube) 4 - 8 tab PO UD PRN; Protocol PRN Reason: Hypoglycemia Treatment Stop: 08/19/24 18:42 Guaifenesin (Guaifenesin 600 Mg Tabcr) 1,200 mg PO Q12 [facility] Stop: 08/20/24 20:59 Last Admin: 07/22/24 08:42 Dose: 1,200 mg Acetaminophen (Ofirmev) 1,000 mg in 100 mls @ 400 mls/hr IV Q8H [facility] Stop: 07/23/24 16:59 Last Infusion: 07/22/24 09:07 Dose: Infused Ceftriaxone Sodium (Rocephin) 2,000 mg in 50 mls @ 100 mls/hr IV Q24H [facility] Stop: 07/24/24 18:29 Last Infusion: 07/21/24 18:52 Dose: Infused Insulin Aspart (Insulin Aspart Per Unit Charge) 0 units SC ACHS [facility] Stop: 08/19/24 20:59 Last Admin: 07/22/24 12:14 Dose: 2 units Miscellaneous (Carbohydrates For Hypoglycemia ) 15 - 30 gm PO UD PRN PRN Reason: Hypoglycemia Protocol Stop: 08/19/24 18:42 Montelukast Sodium (Montelukast Sodium 10 Mg Tablet) 10 mg PO QAM [facility] Stop: 08/20/24 08:59 Last Admin: 07/22/24 08:42 Dose: 10 mg Pantoprazole Sodium (Pantoprazole 40 Mg Tab) 40 mg PO DAILY [facility] Stop: 08/20/24 08:59 Last Admin: 07/22/24 08:43 Dose: 40 mg Prednisone (Prednisone 20 Mg Tab) 40 mg PO DAILY [facility] Stop: 07/26/24 09:01 Last Admin: 07/22/24 08:43 Dose: 40 mg Sodium Chloride (Sodium Chlor 7% 4 Ml Neb) 4 ml NEB BIDR [facility] Stop: 08/20/24 18:59 Last Admin: 07/22/24 07:06 Dose: 4 ml Warfarin Sodium (Warfarin Sod 10 Mg Tab) 10 mg PO [email or web address] [facility] Stop: 08/19/24 18:59 Last Admin: 07/20/24 19:44 Dose: 10 mg Warfarin Sodium (Warfarin Sod 5 Mg Tab) 15 mg PO [email or web address] [email or web address] Stop: 08/20/24 15:59 Last Admin: 07/21/24 17:14 Dose: 15 mg
[2024-07-22] MEDS: FUROSEMIDE 40 MG/4 ML VIAL IV SCH (16:48)
--- NOTE | 2024-07-23 06:00 | Electrocardiogram Report ---
Test Reason : Blood Pressure : */* mmHG Vent. Rate : 58 BPM Atrial Rate : * BPM P-R Int : * ms QRS Dur : 86 ms QT Int : 368 ms P-R-T Axes : * 32 41 degrees QTcB Int : 361 ms Atrial fibrillation with slow ventricular response Low voltage QRS Possible Septal infarct (cited on or before 12-May-2024) Abnormal ECG When compared with ECG of 12-May-2024 21:02, No significant change was found Confirmed by Janak Springer ([id number] on 07/23/2024 5:59:52 AM Referred By: Confirmed By: Janak Springer
[2024-07-23 06:09] LABS: INR 3.4 (0.9-1.1); Prothrombin Time 33.4 Seconds (9.0-12.0)
[2024-07-23 06:21] LABS: BUN Creatinine Ratio 55.2 (10-20); Calcium 9.1 mg/dl (8.6-10.3); Creatinine Clr Calc Pharmacy 117.4 ml/min; Est GFR (African American) 103.5 ml/min; Est GFR (Non-African American) 89.3 ml/min; Potassium 4.3 mmol/L (3.5-5.1)
[2024-07-23 06:54] LABS: Base Excess VBG 14.5 mEq/L; HCO3 VBG 43 mmol/L; Oxygen Saturation VBG 84.8 %; PCO2 VBG 67 mmHg (38-50); PO2 VBG 47 mmHg; pH VBG 7.41 (7.36-7.41)
--- NOTE | 2024-07-23 11:15 | Cardiology Progress Note ---
Date of Service July 23, 2024 Assessment & Plan (1) Acute on chronic heart failure with preserved ejection fraction: (2) Acute respiratory failure with hypoxia and hypercarbia: (3) Bilateral cellulitis of lower leg: (4) Hyperkalemia: (5) Hypotension: (6) Chronic a-fib: (7) Bradycardia: Plan Acute decompensated right heart failure, HFpEF, moderately severe volume overload Morbid obesity, obesity hypoventilation syndrome, severe pulmonary hypertension Chronic atrial fibrillation with a slow ventricular response Hypotension, resolved Hyperkalemia, resolved Hypoxia hypercarbic respiratory failure Bilateral lower extremity cellulitis, buttocks wound Recommendations: 1. Continue IV furosemide to 60 mg twice per day 2. Supplement potassium today. 3. BiPAP when napping during the day and all night 4. Hold Coumadin today, INR 3.4. 5. Bradycardia. Off all AV dave blockers since 07/21. Not a candidate for permanent pacemaker due to active infection. Avoid AV dave blockers. Maintain telemetry. Trial Theophylline 100 mg BID Admission and Anticipated Discharge Date Admission Date: July 20, 2024 Supervising Physician Co-Signing Physician Notes I have personally performed a history and physical examination on the patient. I have reviewed the advance practitioner's documentation, and I agree with, and take responsibility for the plan of care. 68-year-old male with acute on chronic heart failure with preserved ejection fraction, obesity hypoventilation syndrome with severe pulmonary hypertension and noncompliance. Continue IV diuresis, fluid and sodium restriction. Monitor fluid balance, daily weight, GFR, and electrolytes. CPAP QHS. INR trending upward to 3.4 today. Hold warfarin today. Repeat INR in AM. Atrial fibrillation with slow ventricular response noted on telemetry. AV dave blocking agents discontinued 07/21/2024. Will add aminophylline 100 mg twice daily. Currently, patient is not a candidate for pacemaker implantation due to pressure ulcers/cellulitis. I spent a total of 30 minutes on the date of service in preparation, delivery, and documentation of the care provided to this patient, excluding any time spent in the performance of separately billed services. Hemanth Patrick DO, [facility] Subjective Patient seen and examined. Chart, medications, and telemetry reviewed. Somnolent. On BiPAP. Telemetry: Sinus bradycardia with heart rates in the 40s to 60s, currently in the 40s I's/O's: -1175, -950, -3150 (-5175 mL overall) Review of Systems Review of Systems: Complete Review of Systems is as stated above, negative, or noncontributory Physical Exam Physical Exam: General: Solmulent HENT: Normocephalic. Atraumatic. Eyes: PER. Conjunctiva pink, sclera clear. Neck: No overt JVD. Heart: Regular at 60 bpm. No murmur. No rub. Lungs: Clear to auscultation anteriorly Abdomen: +BS. Soft. Nontender. No masses or organomegaly. Extremities: Barron catheter. Right greater than left lower extremity erythema (mildly improved) 2+ edema. No cyanosis Limited neurological examination is without focal deficits. Pulses: radial=2/4, posterior tibial=0/4. Results & Data Vital Signs (Past 12 Hours) Vital Signs Temp Pulse Pulse Resp BP Pulse Ox O2 Del Method 07/23/24 10:33 36.9 C 79 21 141/80 H 91 BiPAP 07/23/24 10:19 59 L 24 96 07/23/24 10:19 59 L 24 96 BiPAP 07/23/24 08:10 36.8 C 62 14 121/57 L 93 Nasal Cannula 07/23/24 07:12 60 16 95 BiPAP 07/23/24 03:30 58 L 22 95 BiPAP 07/23/24 03:24 36.7 C 53 L 18 125/72 93 BiPAP 07/23/24 03:20 53 L 21 94 07/22/24 23:42 63 22 98 07/22/24 23:10 59 L 22 98 Room Air O2 Flow Rate FiO2 07/23/24 10:33 07/23/24 10:19 35 07/23/24 10:19 35 07/23/24 08:10 4 07/23/24 07:12 35 07/23/24 03:30 35 07/23/24 03:24 07/23/24 03:20 35 07/22/24 23:42 35 07/22/24 23:10 Laboratory Results Coagulation 07/23/24 Range/Units 05:26 PT 33.4 H (9.0-12.0) Seconds Comprehensive Metabolic Panel 07/23/24 Range/Units 05:26 Sodium 136 (136-145) mmol/L Potassium 4.3 (3.5-5.1) mmol/L Chloride 91 L (98-107) mmol/L Carbon Dioxide 41 H* (21-32) mmol/L BUN 48 H (6-23) mg/dl Creatinine 0.87 (0.6-1.4) mg/dl Glucose 97 (70-99(Fasting)) mg/dl Calcium 9.1 (8.6-10.3) mg/dl Intake and Output 07/22/24 07/23/24 07/23/24 22:59 06:59 14:59 Intake Total 1250 / 1450 100 / 1450 100 / 100 Output Total 4150 / 4600 450 / 4600 Balance -2900 / -3150 -350 / -3150 100 / 100 Intake: IV 150 / 350 100 / 350 100 / 100 Acetaminophen 1,000 mg In 100 100 / 300 100 / 300 100 / 100 ml @ 400 mls/hr IV Q8H [facility] Rx#: [id number] cefTRIAXone SODIUM 2,000 mg In 50 / 50 50 ml @ 100 mls/hr IV Q24H [facility] Rx#:[id number] Oral 1100 / 1100 0 / 1100 Output: Urine 300 / 300 Urine Amount (Catheter) 3850 / 4300 450 / 4300 Barron/Indwelling 3850 / 4300 450 / 4300
[2024-07-23] MEDS: POTASSIUM CHLORIDE CRTAB 20 MEQ TABCR PO ONE (12:06)
[2024-07-23] MEDS: THEOPHYLLINE 400 MG EXTENDED REL TAB PO SCH (12:16)
--- NOTE | 2024-07-23 12:23 | Hospitalist Progress Note ---
Date of Service July 23, 2024 Assessment & Plan (1) Obesity hypoventilation syndrome: (2) Acute on chronic heart failure with preserved ejection fraction: (3) Acute respiratory failure with hypoxia and hypercarbia: Plan Pt is a 68yoM with PMHx significant for chronic diastolic heart failure, A- fib/history DVT on Coumadin, valvular heart disease, hypertension, hyperlipidemia, chronic respiratory failure secondary to pulmonary hypertension, COPD, OHS on BiPAP, DM2, chronic anemia presenting from home with trouble breathing. History obtained from patient's daughter via telephone as well as patient in the room. Daughter states that he was discharged home from rehab in April and at that time was able to walk around and do things for himself. However she states that once he got home he "planted" himself on the chair and would not get up. States he is not fluid restricting as has been advised. States that he does have home PT services but they have not been getting him up. States he just chooses not to walk. States he does not have portable oxygen but does use oxygen with 2 L at home. States that he started with the trouble breathing about a week ago but it has progressed. States it sounded like there was a rattle in his chest for the last 1 to 2 weeks. Also concerned about wounds in his buttock region. States that they have been present since discharge from acute rehab. States that he has bathed twice since he has been home from rehab. Daughter notes that her typically helps him get cleaned up. Patient is alert and oriented and able to converse even with BiPAP on his face. Acute on chronic respiratory failure with hypoxia and hypercarbia Obesity hypoventilation syndrome On 2 L home oxygen Patient hypoxic on arrival, requiring BiPAP support VBG with pH of 7.30, pCO2 of 77 and bicarb of 38 Chest x-ray concerning for fluid overload and possible pneumonitis CT chest - mosaic groundglass densities in bilateral lungs which could be from small airway inflammation Respiratory BioFire negative Pro-Jorge negative Continue home nebulized bronchodilators Continue with BiPAP, wean as tolerated Pulmonology consulted, appreciate recs Has been on intravenous ceftriaxone and will add doxycycline Prednisone for a 5-day course as per the fine jewelry sales associate Clinically little better and would continue current management Will continue with the intravenous ceftriaxone and doxycycline and discontinue daptomycin Remains stable and a little worse today with increasing shortness of breath Denies any cough, fever and/or chills Will continue current antibiotic Acute on chronic congestive heart failure Admitted with bilateral leg cellulitis with increased swelling was for the last few days Denies any chest pain and/or palpitation Repeat echo pending Patient received IV Lasix 40 mg in the ED, continue with IV Lasix 40 mg daily Hold home torsemide, will hold home spironolactone with noted hyperkalemia (see below) Will place Barron for accurate measurements, Monitor I's and O's, daily weights Cardiology consulted, appreciate recs Has had negative a little over 2 L of fluid Will increase Lasix 60 mg IV twice daily and monitor kidney function Will continue to monitor in the telemetry unit Remains stable and electrolytes are unremarkable Has had more than 5 L negative balance as of today Will continue current dose of intravenous Lasix for now Lower extremity cellulitis Lower extremity edema Bilateral lower extremities with warmth and erythema, right greater than left Noted lower extremity swelling, significant Started on IV Rocephin and Daptomycin On daily IV Lasix 40 mg as noted above which will help with her edema Continue to monitor Will check MRSA- If negative will discontinue daptomycin Lower extremity cellulitis has improved a lot Buttock wounds Wound nurse consult On IV Rocephin and daptomycin as noted above Continue to monitor for need for surgical debridement Continue with the wound care Hyperkalemia Potassium 5.7 on admission Hold home potassium supplements Holding home spironolactone as noted above Continue to monitor with a.m. labs Potassium level remains elevated at 5.5 will hold losartan Potassium level has been normalized and will hold oral potassium, spironolactone and losartan for now Potassium level has been normalized Atrial fibrillation EKG noting A-fib with slow ventricular response continue home Coreg patient currently therapeutically anticoagulated with warfarin, INR 2.5 Cardiology consulted as above Follow INR, continue to monitor on telemetry-INR remains therapeutic at 2.5 INR is high at 3.4 today and Coumadin is on hold Continue other home meds as ordered CODE STATUS: Full code per discussion with patient Diet: Heart healthy, DM2 with fluid restriction of 1500 mL DVT prophylaxis: On warfarin, currently therapeutic Dispo: Admit to PCU telemetry Admission and Anticipated Discharge Date Admission Date: July 20, 2024 Subjective 07/21/2024 The patient was seen and examined in telemetry unit He has been complaining of increasing leg swelling redness and also increasing shortness of breath worse for the last day or 2 Has had BiPAP last night and feeling little bit better this morning Denies any chest pain and/or palpitation, no abdominal pain nausea and or vomiting 07/22/2024 The patient was seen and examined in telemetry unit He has been feeling a little better since admission Still complains to have leg pain and leg swelling Denies any chest pain and/or palpitation 07/23/2024 The patient was seen and examined in telemetry unit He has been drowsy today and complains to have shortness of breath Denies any chest pain and/or palpitation Noted to have high CO2 at 41 and now is on BiPAP Review of Systems Review of Systems: All systems reviewed and are unremarkable except noted below Physical Exam Physical Exam: lying in bed with acute distress due to shortness of breath Constitutional: well developed, well nourished, + ill appearing and + morbidly obese Eyes: PERRL, conjunctivae normal, anicteric sclerae ENMT: external ear and nose normal, oropharynx normal Neck: trachea midline, no thyromegaly Respiratory: + respiratory distress Auscultation: + diminished lung sounds, + crackles and + wheezes Cardiovascular: Rate/Rhythm: + irregularly irregular Heart Sounds: normal S1 and normal S2; no murmur Extremities: + edema ( 1-2+ bilateral leg edema with redness involving the legs) Gastrointestinal (Abdomen): Inspection/Auscultation: + abdomen distended and normal bowel sounds Percussion/Palpation: abdomen soft; abdomen nontender Neurologic: normal touch/pain/proprioception and moves all extremities; no focal motor deficits Lymphatic: no cervical or axillary lymphadenopathy Results & Data Results & Data Vital Signs (Past 12 Hours) Vital Signs Temp Pulse Pulse Resp BP Pulse Ox O2 Del Method 07/23/24 11:18 36.7 C 84 22 142/70 H 96 Nasal Cannula 07/23/24 10:33 36.9 C 79 21 141/80 H 91 BiPAP 07/23/24 10:19 59 L 24 96 07/23/24 10:19 59 L 24 96 BiPAP 07/23/24 08:10 36.8 C 62 14 121/57 L 93 Nasal Cannula 07/23/24 07:12 60 16 95 BiPAP 07/23/24 03:30 58 L 22 95 BiPAP 07/23/24 03:24 36.7 C 53 L 18 125/72 93 BiPAP 07/23/24 03:20 53 L 21 94 O2 Flow Rate FiO2 07/23/24 11:18 2 07/23/24 10:33 07/23/24 10:19 35 07/23/24 10:19 35 07/23/24 08:10 4 07/23/24 07:12 35 07/23/24 03:30 35 07/23/24 03:24 07/23/24 03:20 35 Laboratory Results BMP 07/23/24 05:26 Sodium 136 Potassium 4.3 Chloride 91 L Carbon Dioxide 41 H* BUN 48 H Creatinine 0.87 Glucose 97 Calcium 9.1 Medications Administered Current Inpatient Medications Albuterol (Albuterol Hfa 8 Gm Inhaler) 2 puffs INH Q6H PRN PRN Reason: Shortness Of Breath Or Wheezing Stop: 08/19/24 18:42 Albuterol (Albut/Ipratrop 3mg/0.5mg Neb 3 Ml Vial) 3 ml NEB Q4R [facility]; Protocol Stop: 08/20/24 09:59 Last Admin: 07/23/24 10:19 Dose: 3 ml Budesonide (Budesonide 0.5 Mg/2 Ml Vial (Pulmicort)) 0.5 mg NEB BIDR [facility] Stop: 08/20/24 18:59 Last Admin: 07/23/24 07:12 Dose: 0.5 mg Carvedilol (Carvedilol 3.125 Mg Tab) 3.125 mg PO BIDM [facility] Stop: 08/20/24 07:59 Last Admin: 07/21/24 09:27 Dose: 3.125 mg Dextrose (Dextrose 50% 50 Ml Syringe) 25 - 50 ml IV UD PRN; Protocol PRN Reason: Hypoglycemia Protocol Stop: 08/19/24 18:42 Doxycycline Hyclate (Doxycycline Hyclate 100 Mg Cap) 100 mg PO BID [facility] Stop: 07/26/24 10:29 Last Admin: 07/23/24 07:46 Dose: 100 mg Empagliflozin (Empagliflozin 10 Mg Tab) 10 mg PO QAM [facility] Stop: 08/20/24 08:59 Last Admin: 07/23/24 07:45 Dose: 10 mg Enalapril Maleate (Enalapril Maleate 10 Mg Tab) 10 mg PO DAILY [facility] Stop: 08/20/24 08:59 Fluticasone Propionate (Fluticasone Propionate Na Spr 16 Gm Btl) 2 sprays NA DAILY [facility] Stop: 08/20/24 08:59 Last Admin: 07/23/24 07:46 Dose: 2 sprays Formoterol Fumarate (Formoterol 20 Mcg/2 Ml Vial) 20 mcg NEB BIDR [facility] Stop: 08/20/24 09:59 Last Admin: 07/23/24 07:12 Dose: 20 mcg Furosemide (Furosemide 40 Mg/4 Ml Vial) 60 mg IV BID17 [facility] Stop: 08/21/24 16:59 Last Admin: 07/23/24 07:47 Dose: 60 mg Glucagon (Glucagon For Inj 1 Mg Vial) 1 mg SQ UD PRN; Protocol PRN Reason: Hypoglycemia Protocol Stop: 08/19/24 18:42 Glucose (Glucose 40% Gel 15 Gm Tube) 15 - 30 gm PO UD PRN; Protocol PRN Reason: Hypoglycemia Protocol Stop: 08/19/24 18:42 Glucose (Glucose 10 Tab/Tube) 4 - 8 tab PO UD PRN; Protocol PRN Reason: Hypoglycemia Treatment Stop: 08/19/24 18:42 Guaifenesin (Guaifenesin 600 Mg Tabcr) 1,200 mg PO Q12 [facility] Stop: 08/20/24 20:59 Last Admin: 07/23/24 07:44 Dose: 1,200 mg Acetaminophen (Ofirmev) 1,000 mg in 100 mls @ 400 mls/hr IV Q8H [facility] Stop: 07/23/24 16:59 Last Infusion: 07/23/24 08:16 Dose: Infused Ceftriaxone Sodium (Rocephin) 2,000 mg in 50 mls @ 100 mls/hr IV Q24H [facility] Stop: 07/24/24 18:29 Last Infusion: 07/22/24 18:14 Dose: Infused Insulin Aspart (Insulin Aspart Per Unit Charge) 0 units SC ACHS [facility] Stop: 08/19/24 20:59 Last Admin: 07/23/24 12:06 Dose: 4 units Miscellaneous (Carbohydrates For Hypoglycemia ) 15 - 30 gm PO UD PRN PRN Reason: Hypoglycemia Protocol Stop: 08/19/24 18:42 Montelukast Sodium (Montelukast Sodium 10 Mg Tablet) 10 mg PO QAM [facility] Stop: 08/20/24 08:59 Last Admin: 07/23/24 07:44 Dose: 10 mg Pantoprazole Sodium (Pantoprazole 40 Mg Tab) 40 mg PO DAILY [facility] Stop: 08/20/24 08:59 Last Admin: 07/23/24 07:44 Dose: 40 mg Prednisone (Prednisone 20 Mg Tab) 40 mg PO DAILY [facility] Stop: 07/26/24 09:01 Last Admin: 07/23/24 07:45 Dose: 40 mg Sodium Chloride (Sodium Chlor 7% 4 Ml Neb) 4 ml NEB BIDR [facility] Stop: 08/20/24 18:59 Last Admin: 07/23/24 07:12 Dose: 4 ml Theophylline (Theophylline 400 Mg Extended Rel Tab) 100 mg PO BID [facility] Stop: 08/22/24 11:44 Last Admin: 07/23/24 12:16 Dose: 100 mg Warfarin Sodium (Warfarin Sod 10 Mg Tab) 10 mg PO [email or web address] [facility] Stop: 08/19/24 18:59 Last Admin: 07/22/24 16:48 Dose: 10 mg Warfarin Sodium (Warfarin Sod 5 Mg Tab) 15 mg PO [email or web address] [facility] Stop: 08/20/24 15:59 Last Admin: 07/21/24 17:14 Dose: 15 mg
[2024-07-24 06:58] LABS: Basophils # (auto) 0.03 K/uL (0.00-0.20); Basophils % (auto) 0.4 %; Eosinophils # (auto) 0.18 K/uL (0.00-0.50); Eosinophils % (auto) 2.3 %; Hematocrit (blood only) 29.5 % (42.0-52.0); Hemoglobin 8.9 g/dl (14.0-18.0); Immature Granulocytes # (auto) 0.03 K/uL (0.01-0.20); Immature Granulocytes % (auto) 0.4 %; Lymphocytes # (auto) 1.05 K/uL (1.20-3.40); Lymphocytes % (auto) 13.6 %; Mean Corpuscular Hemoglobin 27.8 pg (25.0-34.0); Mean Corpuscular Hgb Conc 30.2 g/dL (32.0-36.0); Mean Corpuscular Volume 92.2 fL (80.0-100.0); Mean Platelet Volume 9.4 fL (9.4-12.4); Monocytes # (auto) 0.85 K/uL (0.11-0.59); Neutrophils # (auto) 5.59 K/uL (1.40-6.50); Neutrophils % (auto) 72.3 %; Platelet Count 223 K/uL (130-400); RDW Coefficient of Variation 16.4 % (11.5-14.5); RDW Standard Deviation 55.5 fL (36.4-46.3); White Blood Count 7.73 K/ul (4.8-10.8)
[2024-07-24 07:20] LABS: BUN Creatinine Ratio 58.9 (10-20); Calcium 9.2 mg/dl (8.6-10.3); Creatinine Clr Calc Pharmacy 137.9 ml/min; Est GFR (African American) 111.2 ml/min; Magnesium 1.9 mg/dl (1.7-2.4); Phosphorus 2.6 mg/dl (2.5-4.9); Potassium 4.1 mmol/L (3.5-5.1)
[2024-07-24] MEDS: ACETAMINOPHEN 325 MG TAB PO PRN (09:16)
--- NOTE | 2024-07-24 12:10 | Cardiology Progress Note ---
Date of Service July 24, 2024 Assessment & Plan (1) Acute on chronic heart failure with preserved ejection fraction: (2) Acute respiratory failure with hypoxia and hypercarbia: (3) Bilateral cellulitis of lower leg: (4) Hyperkalemia: (5) Hypotension: (6) Chronic a-fib: (7) Bradycardia: Plan Bilateral lower extremity cellulitis, buttocks wound Acute decompensated right heart failure, HFpEF, moderately severe volume overload Hypoxia hypercarbic respiratory failure Morbid obesity, obesity hypoventilation syndrome, severe pulmonary hypertension Chronic atrial fibrillation Hypotension on admission Hyperkalemia on admission Recommendations: 1. Continue IV furosemide to 60 mg twice per day 2. Add low dose spironolactone 12.5 mg/day 3. INR 3.4 on 07/23. Coumadin held on 07/23. Check INR 4. BiPAP when napping during the day and all night 5. Bradycardia. Off Coreg since 07/21. Not a candidate for permanent pacemaker infection). Heart rates much improved (30's-40's -> 60's-70's) following addition of theophylline 100 mg BID on 07/23 Admission and Anticipated Discharge Date Admission Date: July 20, 2024 Supervising Physician Co-Signing Physician Notes I have personally performed a history and physical examination on the patient. I have reviewed the advance practitioner's documentation, and I agree with, and take responsibility for the plan of care. 68-year-old male with acute on chronic heart failure with preserved ejection fraction, obesity hypoventilation syndrome with severe pulmonary hypertension, and noncompliance. Heart rate improved/increased with addition of theophylline. Fluid balance 3.6 L. Renal function remains stable.Continue IV diuresis, fluid and sodium restriction. Monitor fluid balance, daily weight, GFR, and electrolytes. CPAP QHS. INR down to 2.2 today. Restart warfarin. I spent a total of 35 minutes on the date of service in preparation, delivery, and documentation of the care provided to this patient, excluding any time spent in the performance of separately billed services. Hemanth Patrick DO, [facility] Subjective Patient seen and examined. Chart, medications, and telemetry reviewed. Feeling significantly better today. I's/O's: -8,785 mL overall Telemetry: Atrial fibrillation with heart rates predominantly in the 60s and 70s Review of Systems Review of Systems: Complete Review of Systems is as stated above, negative, or noncontributory Physical Exam Physical Exam: General: Sitting in chair eating lunch, appearing much improved compared to yesterday HENT: Normocephalic. Atraumatic. Eyes: PER. Conjunctiva pink, sclera clear. Neck: No overt JVD. Heart: Irregularly irregular at 70 bpm. No murmur. No rub. Lungs: Clear to auscultation anteriorly Abdomen: +BS. Soft. Nontender. No masses or organomegaly. Barron catheter draining clear urine. Extremities: Improved right greater than left lower extremity erythema. Improved erythema. Limited neurological examination is without focal deficits. Pulses: radial=2/4, posterior tibial=0/4. Results & Data Vital Signs (Past 12 Hours) Vital Signs Temp Pulse Pulse Resp BP Pulse Ox O2 Del Method 07/24/24 10:53 74 20 94 Nasal Cannula 07/24/24 10:30 37.0 C 70 21 135/48 L 93 Nasal Cannula 07/24/24 08:20 36.6 C 65 17 106/67 97 Room Air 07/24/24 07:41 78 18 119/51 L 93 Nasal Cannula 07/24/24 07:09 68 20 96 Nasal Cannula 07/24/24 03:28 36.7 C 67 20 154/54 H 96 BiPAP 07/24/24 02:13 64 16 96 07/24/24 02:13 62 20 97 BiPAP O2 Flow Rate FiO2 07/24/24 10:53 3 07/24/24 10:30 3 07/24/24 08:20 07/24/24 07:41 3 07/24/24 07:09 3 07/24/24 03:28 07/24/24 02:13 35 07/24/24 02:13 35 Laboratory Results CBC 07/24/24 Range/Units 06:37 WBC 7.73 (4.8-10.8) K/ul RBC 3.20 L (4.70-6.10) M/uL Hgb 8.9 L (14.0-18.0) g/dl Hct 29.5 L (42.0-52.0) % Plt Count 223 (130-400) K/uL Neut # (Auto) 5.59 (1.40-6.50) K/uL Lymph # (Auto) 1.05 L (1.20-3.40) K/uL [place] # (Auto) 0.85 H (0.11-0.59) K/uL Eos # (Auto) 0.18 (0.00-0.50) K/uL Baso # (Auto) 0.03 (0.00-0.20) K/uL Comprehensive Metabolic Panel 07/24/24 Range/Units 06:37 Sodium 138 (136-145) mmol/L Potassium 4.1 (3.5-5.1) mmol/L Chloride 90 L (98-107) mmol/L Carbon Dioxide 43 H* (21-32) mmol/L BUN 43 H (6-23) mg/dl Creatinine 0.73 (0.6-1.4) mg/dl Glucose 89 (70-99(Fasting)) mg/dl Calcium 9.2 (8.6-10.3) mg/dl Intake and Output 07/23/24 07/24/24 07/24/24 22:59 06:59 14:59 Intake Total 350 / 940 50 / 940 Output Total 3000 / 3450 450 / 3450 1000 / 1000 Balance -2650 / -2510 -400 / -2510 -1000 / -1000 Intake: IV 50 / 150 cefTRIAXone SODIUM 2,000 mg In 50 / 50 50 ml @ 100 mls/hr IV Q24H [facility] Rx#:[id number] Oral 300 / 790 50 / 790 Output: Urine Amount (Catheter) 3000 / 3450 450 / 3450 1000 / 1000 Barron/Indwelling 3000 / 3450 450 / 3450 1000 / 1000 Other: Weight 149.1 kg Weight Measurement Method Built in [facility]
[2024-07-24 12:34] LABS: INR 2.2 (0.9-1.1); Prothrombin Time 22.1 Seconds (9.0-12.0)
--- NOTE | 2024-07-24 13:39 | Hospitalist Progress Note ---
Date of Service July 24, 2024 Assessment & Plan (1) Obesity hypoventilation syndrome: (2) Acute on chronic heart failure with preserved ejection fraction: (3) Acute respiratory failure with hypoxia and hypercarbia: Plan Pt is a 68yoM with PMHx significant for chronic diastolic heart failure, A- fib/history DVT on Coumadin, valvular heart disease, hypertension, hyperlipidemia, chronic respiratory failure secondary to pulmonary hypertension, COPD, OHS on BiPAP, DM2, chronic anemia presenting from home with trouble breathing. History obtained from patient's daughter via telephone as well as patient in the room. Daughter states that he was discharged home from rehab in April and at that time was able to walk around and do things for himself. However she states that once he got home he "planted" himself on the chair and would not get up. States he is not fluid restricting as has been advised. States that he does have home PT services but they have not been getting him up. States he just chooses not to walk. States he does not have portable oxygen but does use oxygen with 2 L at home. States that he started with the trouble breathing about a week ago but it has progressed. States it sounded like there was a rattle in his chest for the last 1 to 2 weeks. Also concerned about wounds in his buttock region. States that they have been present since discharge from acute rehab. States that he has bathed twice since he has been home from rehab. Daughter notes that her typically helps him get cleaned up. Patient is alert and oriented and able to converse even with BiPAP on his face. Acute on chronic respiratory failure with hypoxia and hypercarbia Obesity hypoventilation syndrome On 2 L home oxygen Patient hypoxic on arrival, requiring BiPAP support VBG with pH of 7.30, pCO2 of 77 and bicarb of 38 Chest x-ray concerning for fluid overload and possible pneumonitis CT chest - mosaic groundglass densities in bilateral lungs which could be from small airway inflammation Respiratory BioFire negative Pro-Jorge negative Continue home nebulized bronchodilators Continue with BiPAP, wean as tolerated Pulmonology consulted, appreciate recs Has been on intravenous ceftriaxone and will add doxycycline Prednisone for a 5-day course as per the tree trimming 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 technician Clinically little better and would continue current management Will continue with the intravenous ceftriaxone and doxycycline and discontinue daptomycin Remains stable and a little worse today with increasing shortness of breath Denies any cough, fever and/or chills Will continue current antibiotic- clinically much better and denies any significant symptoms of cough, fever and the white count has been normalized Acute on chronic congestive heart failure Admitted with bilateral leg cellulitis with increased swelling was for the last few days Denies any chest pain and/or palpitation Repeat echo pending Patient received IV Lasix 40 mg in the ED, continue with IV Lasix 40 mg daily Hold home torsemide, will hold home spironolactone with noted hyperkalemia (see below) Will place Barron for accurate measurements, Monitor I's and O's, daily weights Cardiology consulted, appreciate recs Has had negative a little over 2 L of fluid Will increase Lasix 60 mg IV twice daily and monitor kidney function Will continue to monitor in the telemetry unit Remains stable and electrolytes are unremarkable Has had more than 5 L negative balance as of today Will continue current dose of intravenous Lasix for now Has had more than 8 L of negative balance so far and clinically he has been improving, will continue current management Lower extremity cellulitis Lower extremity edema Bilateral lower extremities with warmth and erythema, right greater than left Noted lower extremity swelling, significant Started on IV Rocephin and Daptomycin On daily IV Lasix 40 mg as noted above which will help with her edema Continue to monitor Will check MRSA- If negative will discontinue daptomycin Lower extremity cellulitis has improved a lot Buttock wounds Wound nurse consult On IV Rocephin and daptomycin as noted above Continue to monitor for need for surgical debridement Continue with the wound care Hyperkalemia Potassium 5.7 on admission Hold home potassium supplements Holding home spironolactone as noted above Continue to monitor with a.m. labs Potassium level remains elevated at 5.5 will hold losartan Potassium level has been normalized and will hold oral potassium, spironolactone and losartan for now Potassium level has been normalized Atrial fibrillation EKG noting A-fib with slow ventricular response continue home Coreg patient currently therapeutically anticoagulated with warfarin, INR 2.5 Cardiology consulted as above Follow INR, continue to monitor on telemetry-INR remains therapeutic at 2.5 INR is high at 3.4 today and Coumadin is on hold INR is 2.4 today and will restart Coumadin Continue other home meds as ordered CODE STATUS: Full code per discussion with patient Diet: Heart healthy, DM2 with fluid restriction of 1500 mL DVT prophylaxis: On warfarin, currently therapeutic Dispo: Admit to PCU telemetry Admission and Anticipated Discharge Date Admission Date: July 20, 2024 Subjective 07/21/2024 The patient was seen and examined in telemetry unit He has been complaining of increasing leg swelling redness and also increasing shortness of breath worse for the last day or 2 Has had BiPAP last night and feeling little bit better this morning Denies any chest pain and/or palpitation, no abdominal pain nausea and or vomiting 07/22/2024 The patient was seen and examined in telemetry unit He has been feeling a little better since admission Still complains to have leg pain and leg swelling Denies any chest pain and/or palpitation 07/23/2024 The patient was seen and examined in telemetry unit He has been drowsy today and complains to have shortness of breath Denies any chest pain and/or palpitation Noted to have high CO2 at 41 and now is on BiPAP 07/24/2024 The patient was seen and examined in telemetry unit He has been feeling much better today and is out of bed on a chair Denies any significant shortness of breath and the legs are getting smaller Leg wounds are better too Review of Systems Review of Systems: All systems reviewed and are unremarkable except noted below Physical Exam Physical Exam: lying in bed with acute distress due to shortness of breath Constitutional: well developed, well nourished, + ill appearing and + morbidly obese Eyes: PERRL, conjunctivae normal, anicteric sclerae ENMT: external ear and nose normal, oropharynx normal Neck: trachea midline, no thyromegaly Respiratory: + respiratory distress Auscultation: + diminished lung sounds, + crackles and + wheezes Cardiovascular: Rate/Rhythm: + irregularly irregular Heart Sounds: normal S1 and normal S2; no murmur Extremities: + edema ( 1-2+ bilateral leg edema with redness involving the legs) Gastrointestinal (Abdomen): Inspection/Auscultation: + abdomen distended and normal bowel sounds Percussion/Palpation: abdomen soft; abdomen nontender Musculoskeletal: no acute arthritis involving any of the joint Neurologic: normal touch/pain/proprioception and moves all extremities; no focal motor deficits Lymphatic: no cervical or axillary lymphadenopathy Results & Data Results & Data Vital Signs (Past 12 Hours) Vital Signs Temp Pulse Pulse Resp BP Pulse Ox O2 Del Method 07/24/24 10:53 74 20 94 Nasal Cannula 07/24/24 10:30 37.0 C 70 21 135/48 L 93 Nasal Cannula 07/24/24 08:20 36.6 C 65 17 106/67 97 Room Air 07/24/24 07:41 78 18 119/51 L 93 Nasal Cannula 07/24/24 07:09 68 20 96 Nasal Cannula 07/24/24 03:28 36.7 C 67 20 154/54 H 96 BiPAP 07/24/24 02:13 64 16 96 07/24/24 02:13 62 20 97 BiPAP O2 Flow Rate FiO2 07/24/24 10:53 3 07/24/24 10:30 3 07/24/24 08:20 07/24/24 07:41 3 07/24/24 07:09 3 07/24/24 03:28 07/24/24 02:13 35 07/24/24 02:13 35 Laboratory Results Short CBC 07/24/24 Range/Units 06:37 WBC 7.73 (4.8-10.8) K/ul Hgb 8.9 L (14.0-18.0) g/dl Hct 29.5 L (42.0-52.0) % Plt Count 223 (130-400) K/uL BMP 07/24/24 06:37 Sodium 138 Potassium 4.1 Chloride 90 L Carbon Dioxide 43 H* BUN 43 H Creatinine 0.73 Glucose 89 Calcium 9.2 Medications Administered Current Inpatient Medications Acetaminophen (Acetaminophen 325 Mg Tab) 650 mg PO QID PRN PRN Reason: pain/fever Stop: 08/22/24 22:59 Last Admin: 07/24/24 09:16 Dose: 650 mg Albuterol (Albuterol Hfa 8 Gm Inhaler) 2 puffs INH Q6H PRN PRN Reason: Shortness Of Breath Or Wheezing Stop: 08/19/24 18:42 Albuterol (Albut/Ipratrop 3mg/0.5mg Neb 3 Ml Vial) 3 ml NEB Q4R [facility]MA[facility]; Protocol Stop: 08/20/24 09:59 Last Admin: 07/24/24 10:53 Dose: 3 ml Budesonide (Budesonide 0.5 Mg/2 Ml Vial (Pulmicort)) 0.5 mg NEB BIDR [facility]MAYRA Stop: 08/20/24 18:59 Last Admin: 07/24/24 07:08 Dose: 0.5 mg Dextrose (Dextrose 50% 50 Ml Syringe) 25 - 50 ml IV UD PRN; Protocol PRN Reason: Hypoglycemia Protocol Stop: 08/19/24 18:42 Doxycycline Hyclate (Doxycycline Hyclate 100 Mg Cap) 100 mg PO BID [facility]MA[facility] Stop: 07/26/24 10:29 Last Admin: 07/24/24 09:11 Dose: 100 mg Empagliflozin (Empagliflozin 10 Mg Tab) 10 mg PO QAM [facility] Stop: 08/20/24 08:59 Last Admin: 07/24/24 09:13 Dose: 10 mg Enalapril Maleate (Enalapril Maleate 10 Mg Tab) 10 mg PO DAILY [facility] Stop: 08/20/24 08:59 Fluticasone Propionate (Fluticasone Propionate Na Spr 16 Gm Btl) 2 sprays NA DAILY [facility] Stop: 08/20/24 08:59 Last Admin: 07/24/24 09:12 Dose: 2 sprays Formoterol Fumarate (Formoterol 20 Mcg/2 Ml Vial) 20 mcg NEB BIDR [facility] Stop: 08/20/24 09:59 Last Admin: 07/24/24 07:08 Dose: 20 mcg Furosemide (Furosemide 40 Mg/4 Ml Vial) 60 mg IV BID17 [facility] Stop: 08/21/24 16:59 Last Admin: 07/24/24 09:12 Dose: 60 mg Glucagon (Glucagon For Inj 1 Mg Vial) 1 mg SQ UD PRN; Protocol PRN Reason: Hypoglycemia Protocol Stop: 08/19/24 18:42 Glucose (Glucose 40% Gel 15 Gm Tube) 15 - 30 gm PO UD PRN; Protocol PRN Reason: Hypoglycemia Protocol Stop: 08/19/24 18:42 Glucose (Glucose 10 Tab/Tube) 4 - 8 tab PO UD PRN; Protocol PRN Reason: Hypoglycemia Treatment Stop: 08/19/24 18:42 Guaifenesin (Guaifenesin 600 Mg Tabcr) 1,200 mg PO Q12 [facility] Stop: 08/20/24 20:59 Last Admin: 07/24/24 09:12 Dose: 1,200 mg Ceftriaxone Sodium (Rocephin) 2,000 mg in 50 mls @ 100 mls/hr IV Q24H [facility] Stop: 07/24/24 18:29 Last Infusion: 07/23/24 17:46 Dose: Infused Insulin Aspart (Insulin Aspart Per Unit Charge) 0 units SC ACHS [facility] Stop: 08/19/24 20:59 Last Admin: 07/24/24 09:13 Dose: 3 units Miscellaneous (Carbohydrates For Hypoglycemia ) 15 - 30 gm PO UD PRN PRN Reason: Hypoglycemia Protocol Stop: 08/19/24 18:42 Montelukast Sodium (Montelukast Sodium 10 Mg Tablet) 10 mg PO QAM [facility] Stop: 08/20/24 08:59 Last Admin: 07/24/24 09:12 Dose: 10 mg Pantoprazole Sodium (Pantoprazole 40 Mg Tab) 40 mg PO DAILY [facility] Stop: 08/20/24 08:59 Last Admin: 07/24/24 09:13 Dose: 40 mg Prednisone (Prednisone 20 Mg Tab) 40 mg PO DAILY [facility] Stop: 07/26/24 09:01 Last Admin: 07/24/24 09:12 Dose: 40 mg Sodium Chloride (Sodium Chlor 7% 4 Ml Neb) 4 ml NEB BIDR [facility] Stop: 08/20/24 18:59 Last Admin: 07/24/24 07:07 Dose: 4 ml Theophylline (Theophylline 400 Mg Extended Rel Tab) 100 mg PO BID [facility] Stop: 08/22/24 11:44 Last Admin: 07/24/24 09:11 Dose: 100 mg Warfarin Sodium (Warfarin Sod 10 Mg Tab) 10 mg PO [email or web address] [facility] Stop: 08/19/24 18:59 Last Admin: 07/22/24 16:48 Dose: 10 mg Warfarin Sodium (Warfarin Sod 5 Mg Tab) 15 mg PO [email or web address] [facility] Stop: 08/20/24 15:59 Last Admin: 07/21/24 17:14 Dose: 15 mg
[2024-07-25 08:03] LABS: INR 1.6 (0.9-1.1); Prothrombin Time 16.7 Seconds (9.0-12.0)
[2024-07-25 08:12] LABS: BUN Creatinine Ratio 49.4 (10-20); Calcium 9.5 mg/dl (8.6-10.3); Creatinine Clr Calc Pharmacy 117.1 ml/min; Est GFR (African American) 104.8 ml/min; Est GFR (Non-African American) 90.4 ml/min; Magnesium 1.9 mg/dl (1.7-2.4); Potassium 3.7 mmol/L (3.5-5.1)
--- NOTE | 2024-07-25 10:43 | Cardiology Progress Note ---
Date of Service July 25, 2024 Assessment & Plan (1) Acute on chronic heart failure with preserved ejection fraction: (2) Acute respiratory failure with hypoxia and hypercarbia: (3) Bilateral cellulitis of lower leg: (4) Hyperkalemia: (5) Hypotension: (6) Chronic a-fib: (7) Bradycardia: Plan Bilateral lower extremity cellulitis, buttocks wound Acute decompensated right heart failure, HFpEF, moderately severe volume overload Hypoxia hypercarbic respiratory failure Morbid obesity, obesity hypoventilation syndrome, severe pulmonary hypertension Chronic atrial fibrillation Hypotension on admission Hyperkalemia on admission Recommendations: 1. Continue IV furosemide, 60 mg twice per day 2. Supplemental potassium today orally 3. Resume spironolactone 12.5 mg/day. 4. BiPAP when napping during the day and all night 5. Bradycardia. Off Coreg since 07/21. Not a candidate for permanent pacemaker infection. Heart rates much improved following addition of theophylline 100 mg BID on 07/23. Admission and Anticipated Discharge Date Admission Date: July 20, 2024 Supervising Physician Co-Signing Physician Notes I have personally performed a history and physical examination on the patient. I have reviewed the advance practitioner's documentation, and I agree with, and take responsibility for the plan of care. 68-year-old male with acute on chronic heart failure with preserved ejection fraction, obesity hypoventilation syndrome with severe pulmonary hypertension, and noncompliance. Heart rate improved/increased with addition of theophylline. Fluid balance -3.7 L (-12.5L since admission) Renal function remains stable. Continue IV diuresis, fluid and sodium restriction. Monitor fluid balance, daily weight, GFR, and electrolytes. BiPAP QHS. INR down to 1.6 today. Repeat INR in AM. Hemanth Patrick DO [facility] Subjective Patient seen and examined. Chart, medications, and telemetry reviewed. Upset about fluid restriction I's/O's: -12,580 mL overall Telemetry: Atrial fibrillation with heart rates in the 70s predominantly, occasional PVC Review of Systems Review of Systems: Complete Review of Systems is as stated above, negative, or noncontributory Physical Exam Physical Exam: General: NAD. HENT: Normocephalic. Atraumatic. Eyes: PER. Conjunctiva pink, sclera clear. Neck: No overt JVD. Heart: Irregularly irregular at 70 bpm. No murmur. No rub. Lungs: Clear to auscultation anteriorly Abdomen: +BS. Soft. Nontender. No masses or organomegaly. Barron catheter in place Extremities: Improved right greater than left lower extremity erythema. Improved erythema. Limited neurological examination is without focal deficits. Pulses: radial=2/4, posterior tibial=0/4. Results & Data Vital Signs (Past 12 Hours) Vital Signs Temp Pulse Pulse Resp BP Pulse Ox O2 Del Method 07/25/24 08:00 Nasal Cannula 07/25/24 07:52 36.9 C 89 21 149/82 H 90 Nasal Cannula 07/25/24 07:18 74 20 92 Nasal Cannula 07/25/24 05:44 60 22 99 07/25/24 03:36 56 L 15 95 BiPAP 07/25/24 02:46 36.8 C 76 17 148/73 H 98 BiPAP 07/24/24 23:00 53 L 07/24/24 22:50 36.8 C 72 19 158/80 H 100 BiPAP O2 Flow Rate FiO2 07/25/24 08:00 3 07/25/24 07:52 2 07/25/24 07:18 2 07/25/24 05:44 35 07/25/24 03:36 35 07/25/24 02:46 07/24/24 23:00 07/24/24 22:50 Laboratory Results Coagulation 07/24/24 07/25/24 Range/Units 11:43 06:42 PT 22.1 H 16.7 H (9.0-12.0) Seconds Comprehensive Metabolic Panel 07/25/24 Range/Units 06:42 Sodium 140 (136-145) mmol/L Potassium 3.7 (3.5-5.1) mmol/L Chloride 89 L (98-107) mmol/L Carbon Dioxide 44 H* (21-32) mmol/L BUN 41 H (6-23) mg/dl Creatinine 0.83 (0.6-1.4) mg/dl Glucose 86 (70-99(Fasting)) mg/dl Calcium 9.5 (8.6-10.3) mg/dl Intake and Output 07/24/24 07/25/24 07/25/24 22:59 06:59 14:59 Intake Total 830 / 1080 250 / 1080 Output Total 2705 / 5875 900 / 5875 Balance -3145 / -4777 -736 / -7567 Intake: IV 50 / 50 cefTRIAXone SODIUM 2,000 mg In 50 / 50 50 ml @ 100 mls/hr IV Q24H [facility] Rx#:[id number] Oral 780 / 1030 250 / 1030 Output: Urine Amount (Catheter) 4079 / 3110 532 / 5882 Barron/Indwelling 367 / 5869 537 / 5826 Other: Weight 143.8 kg Weight Measurement Method Built in [facility]
[2024-07-25] MEDS: POTASSIUM CHLORIDE 10 MEQ TABCR PO ONE (11:47)
[2024-07-25] MEDS: SPIRONOLACTONE 12.5 MG TAB PO SCH (11:47)
--- NOTE | 2024-07-25 13:10 | Hospitalist Progress Note ---
Date of Service July 25, 2024 Assessment & Plan (1) Obesity hypoventilation syndrome: (2) Acute on chronic heart failure with preserved ejection fraction: (3) Acute respiratory failure with hypoxia and hypercarbia: Plan Pt is a 68yoM with PMHx significant for chronic diastolic heart failure, A- fib/history DVT on Coumadin, valvular heart disease, hypertension, hyperlipidemia, chronic respiratory failure secondary to pulmonary hypertension, COPD, OHS on BiPAP, DM2, chronic anemia presenting from home with trouble breathing. History obtained from patient's daughter via telephone as well as patient in the room. Daughter states that he was discharged home from rehab in April and at that time was able to walk around and do things for himself. However she states that once he got home he "planted" himself on the chair and would not get up. States he is not fluid restricting as has been advised. States that he does have home PT services but they have not been getting him up. States he just chooses not to walk. States he does not have portable oxygen but does use oxygen with 2 L at home. States that he started with the trouble breathing about a week ago but it has progressed. States it sounded like there was a rattle in his chest for the last 1 to 2 weeks. Also concerned about wounds in his buttock region. States that they have been present since discharge from acute rehab. States that he has bathed twice since he has been home from rehab. Daughter notes that her typically helps him get cleaned up. Patient is alert and oriented and able to converse even with BiPAP on his face. Acute on chronic respiratory failure with hypoxia and hypercarbia Obesity hypoventilation syndrome On 2 L home oxygen Patient hypoxic on arrival, requiring BiPAP support VBG with pH of 7.30, pCO2 of 77 and bicarb of 38 Chest x-ray concerning for fluid overload and possible pneumonitis CT chest - mosaic groundglass densities in bilateral lungs which could be from small airway inflammation Respiratory BioFire negative Pro-Jorge negative Continue home nebulized bronchodilators Continue with BiPAP, wean as tolerated Pulmonology consulted, appreciate recs Has been on intravenous ceftriaxone and will add doxycycline Prednisone for a 5-day course as per the chief innovation officer Clinically little better and would continue current management Will continue with the intravenous ceftriaxone and doxycycline and discontinue daptomycin Remains stable and a little worse today with increasing shortness of breath Denies any cough, fever and/or chills Will continue current antibiotic- clinically much better and denies any significant symptoms of cough, fever and the white count has been normalized clinically much better and will continue current antibiotic and bronchodilators and oxygen Acute on chronic congestive heart failure Admitted with bilateral leg cellulitis with increased swelling was for the last few days Denies any chest pain and/or palpitation Repeat echo pending Patient received IV Lasix 40 mg in the ED, continue with IV Lasix 40 mg daily Hold home torsemide, will hold home spironolactone with noted hyperkalemia (see below) Will place Barron for accurate measurements, Monitor I's and O's, daily weights Cardiology consulted, appreciate recs Has had negative a little over 2 L of fluid Will increase Lasix 60 mg IV twice daily and monitor kidney function Will continue to monitor in the telemetry unit Remains stable and electrolytes are unremarkable Has had more than 5 L negative balance as of today Will continue current dose of intravenous Lasix for now Has had more than 8 L of negative balance so far and clinically he has been improving, will continue current management Clinically much better and has had 12,580 mL of negative balance Will continue intravenous Lasix 60 mg twice daily Monitor PRP and electrolytes Lower extremity cellulitis Lower extremity edema Bilateral lower extremities with warmth and erythema, right greater than left Noted lower extremity swelling, significant Started on IV Rocephin and Daptomycin On daily IV Lasix 40 mg as noted above which will help with her edema Continue to monitor Will check MRSA-Negative If negative will discontinue daptomycin Lower extremity cellulitis has improved a lot Buttock wounds Wound nurse consult On IV Rocephin and daptomycin as noted above Continue to monitor for need for surgical debridement Continue with the wound care Hyperkalemia Potassium 5.7 on admission Hold home potassium supplements Holding home spironolactone as noted above Continue to monitor with a.m. labs Potassium level remains elevated at 5.5 will hold losartan Potassium level has been normalized and will hold oral potassium, spironolactone and losartan for now Potassium level has been normalized Atrial fibrillation EKG noting A-fib with slow ventricular response continue home Coreg patient currently therapeutically anticoagulated with warfarin, INR 2.5 Cardiology consulted as above Follow INR, continue to monitor on telemetry-INR remains therapeutic at 2.5 INR is high at 3.4 today and Coumadin is on hold INR is 2.4 today and will restart Coumadin Continue other home meds as ordered CODE STATUS: Full code per discussion with patient Diet: Heart healthy, DM2 with fluid restriction of 1500 mL DVT prophylaxis: On warfarin, currently therapeutic Dispo: Admit to PCU telemetry Admission and Anticipated Discharge Date Admission Date: July 20, 2024 Subjective 07/21/2024 The patient was seen and examined in telemetry unit He has been complaining of increasing leg swelling redness and also increasing shortness of breath worse for the last day or 2 Has had BiPAP last night and feeling little bit better this morning Denies any chest pain and/or palpitation, no abdominal pain nausea and or vomiting 07/22/2024 The patient was seen and examined in telemetry unit He has been feeling a little better since admission Still complains to have leg pain and leg swelling Denies any chest pain and/or palpitation 07/23/2024 The patient was seen and examined in telemetry unit He has been drowsy today and complains to have shortness of breath Denies any chest pain and/or palpitation Noted to have high CO2 at 41 and now is on BiPAP 07/24/2024 The patient was seen and examined in telemetry unit He has been feeling much better today and is out of bed on a chair Denies any significant shortness of breath and the legs are getting smaller Leg wounds are better too 07/25/2024 The patient was seen and examined in telemetry unit He has been feeling much better and sitting on the chair No significant symptoms at rest Leg swelling has improved and redness of the legs have improved too Review of Systems Review of Systems: All systems reviewed and are unremarkable except noted below Physical Exam Physical Exam: Sitting on a chair without any significant shortness of breath at rest Constitutional: well developed, well nourished, + ill appearing and + morbidly obese Eyes: PERRL, conjunctivae normal, anicteric sclerae ENMT: external ear and nose normal, oropharynx normal Neck: trachea midline, no thyromegaly Respiratory: + respiratory distress Auscultation: + diminished lung sounds, + crackles and + wheezes Cardiovascular: Rate/Rhythm: + irregularly irregular Heart Sounds: normal S1 and normal S2; no murmur Extremities: + edema ( 1-2+ bilateral leg edema with redness involving the legs) Gastrointestinal (Abdomen): Inspection/Auscultation: + abdomen distended and normal bowel sounds Percussion/Palpation: abdomen soft; abdomen nontender Neurologic: normal touch/pain/proprioception and moves all extremities; no focal motor deficits Lymphatic: no cervical or axillary lymphadenopathy Results & Data Results & Data Vital Signs (Past 12 Hours) Vital Signs Temp Pulse Pulse Resp BP Pulse Ox O2 Del Method 07/25/24 11:26 36.9 C 72 22 135/72 99 Nasal Cannula 07/25/24 11:18 94 H 20 92 Nasal Cannula 07/25/24 08:00 Nasal Cannula 07/25/24 07:52 36.9 C 89 21 149/82 H 90 Nasal Cannula 07/25/24 07:18 74 20 92 Nasal Cannula 07/25/24 05:44 60 22 99 07/25/24 03:36 56 L 15 95 BiPAP 07/25/24 02:46 36.8 C 76 17 148/73 H 98 BiPAP O2 Flow Rate FiO2 07/25/24 11:26 2 07/25/24 11:18 2 07/25/24 08:00 3 07/25/24 07:52 2 07/25/24 07:18 2 07/25/24 05:44 35 07/25/24 03:36 35 07/25/24 02:46 Laboratory Results [facility] 07/25/24 06:42 Sodium 140 Potassium 3.7 Chloride 89 L Carbon Dioxide 44 H* BUN 41 H Creatinine 0.83 Glucose 86 Calcium 9.5 Medications Administered Current Inpatient Medications Acetaminophen (Acetaminophen 325 Mg Tab) 650 mg PO QID PRN PRN Reason: pain/fever Stop: 08/22/24 22:59 Last Admin: 07/25/24 03:28 Dose: 650 mg Albuterol (Albuterol Hfa 8 Gm Inhaler) 2 puffs INH Q6H PRN PRN Reason: Shortness Of Breath Or Wheezing Stop: 08/19/24 18:42 Albuterol (Albut/Ipratrop 3mg/0.5mg Neb 3 Ml Vial) 3 ml NEB Q4R [facility]; Protocol Stop: 08/20/24 09:59 Last Admin: 07/25/24 11:18 Dose: 3 ml Budesonide (Budesonide 0.5 Mg/2 Ml Vial (Pulmicort)) 0.5 mg NEB BIDR [facility] Stop: 08/20/24 18:59 Last Admin: 07/25/24 07:18 Dose: 0.5 mg Dextrose (Dextrose 50% 50 Ml Syringe) 25 - 50 ml IV UD PRN; Protocol PRN Reason: Hypoglycemia Protocol Stop: 08/19/24 18:42 Doxycycline Hyclate (Doxycycline Hyclate 100 Mg Cap) 100 mg PO BID [facility] Stop: 07/26/24 10:29 Last Admin: 07/25/24 08:34 Dose: 100 mg Empagliflozin (Empagliflozin 10 Mg Tab) 10 mg PO QAM [facility] Stop: 08/20/24 08:59 Last Admin: 07/25/24 08:34 Dose: 10 mg Enalapril Maleate (Enalapril Maleate 10 Mg Tab) 10 mg PO DAILY [facility] Stop: 08/20/24 08:59 Fluticasone Propionate (Fluticasone Propionate Na Spr 16 Gm Btl) 2 sprays NA DAILY [facility] Stop: 08/20/24 08:59 Last Admin: 07/25/24 08:35 Dose: 2 sprays Formoterol Fumarate (Formoterol 20 Mcg/2 Ml Vial) 20 mcg NEB BIDR [facility] Stop: 08/20/24 09:59 Last Admin: 07/25/24 07:18 Dose: 20 mcg Furosemide (Furosemide 40 Mg/4 Ml Vial) 60 mg IV BID17 [facility] Stop: 08/21/24 16:59 Last Admin: 07/25/24 08:35 Dose: 60 mg Glucagon (Glucagon For Inj 1 Mg Vial) 1 mg SQ UD PRN; Protocol PRN Reason: Hypoglycemia Protocol Stop: 08/19/24 18:42 Glucose (Glucose 40% Gel 15 Gm Tube) 15 - 30 gm PO UD PRN; Protocol PRN Reason: Hypoglycemia Protocol Stop: 08/19/24 18:42 Glucose (Glucose 10 Tab/Tube) 4 - 8 tab PO UD PRN; Protocol PRN Reason: Hypoglycemia Treatment Stop: 08/19/24 18:42 Guaifenesin (Guaifenesin 600 Mg Tabcr) 1,200 mg PO Q12 [facility] Stop: 08/20/24 20:59 Last Admin: 07/25/24 08:35 Dose: 1,200 mg Insulin Aspart (Insulin Aspart Per Unit Charge) 0 units SC ACHS [facility] Stop: 08/19/24 20:59 Last Admin: 07/25/24 11:47 Dose: 6 units Miscellaneous (Carbohydrates For Hypoglycemia ) 15 - 30 gm PO UD PRN PRN Reason: Hypoglycemia Protocol Stop: 08/19/24 18:42 Montelukast Sodium (Montelukast Sodium 10 Mg Tablet) 10 mg PO QAM [facility] Stop: 08/20/24 08:59 Last Admin: 07/25/24 08:35 Dose: 10 mg Pantoprazole Sodium (Pantoprazole 40 Mg Tab) 40 mg PO DAILY [facility] Stop: 08/20/24 08:59 Last Admin: 07/25/24 08:35 Dose: 40 mg Prednisone (Prednisone 20 Mg Tab) 40 mg PO DAILY [facility] Stop: 07/26/24 09:01 Last Admin: 07/25/24 08:36 Dose: 40 mg Sodium Chloride (Sodium Chlor 7% 4 Ml Neb) 4 ml NEB BIDR [facility] Stop: 08/20/24 18:59 Last Admin: 07/25/24 07:18 Dose: 4 ml Spironolactone (Spironolactone 12.5 Mg Tab) 12.5 mg PO DAILY [facility] Stop: 08/24/24 10:59 Last Admin: 07/25/24 11:47 Dose: 12.5 mg Theophylline (Theophylline 400 Mg Extended Rel Tab) 100 mg PO BID [facility] Stop: 08/22/24 11:44 Last Admin: 07/25/24 08:36 Dose: 100 mg Warfarin Sodium (Warfarin Sod 10 Mg Tab) 10 mg PO [email or web address] [facility] Stop: 08/19/24 18:59 Last Admin: 07/24/24 18:09 Dose: 10 mg Warfarin Sodium (Warfarin Sod 5 Mg Tab) 15 mg PO [email or web address] [facility] Stop: 08/20/24 15:59 Last Admin: 07/21/24 17:14 Dose: 15 mg
[2024-07-26 06:53] LABS: Basophils # (auto) 0.02 K/uL (0.00-0.20); Basophils % (auto) 0.2 %; Eosinophils # (auto) 0.21 K/uL (0.00-0.50); Eosinophils % (auto) 2.4 %; Hematocrit (blood only) 30.7 % (42.0-52.0); Hemoglobin 9.8 g/dl (14.0-18.0); Immature Granulocytes # (auto) 0.05 K/uL (0.01-0.20); Immature Granulocytes % (auto) 0.6 %; Lymphocytes # (auto) 1.09 K/uL (1.20-3.40); Lymphocytes % (auto) 12.6 %; Mean Corpuscular Hemoglobin 28.5 pg (25.0-34.0); Mean Corpuscular Hgb Conc 31.9 g/dL (32.0-36.0); Mean Corpuscular Volume 89.2 fL (80.0-100.0); Mean Platelet Volume 9.6 fL (9.4-12.4); Monocytes # (auto) 0.98 K/uL (0.11-0.59); Monocytes % (auto) 11.4 %; Neutrophils # (auto) 6.28 K/uL (1.40-6.50); Neutrophils % (auto) 72.8 %; Platelet Count 266 K/uL (130-400); RDW Coefficient of Variation 16.2 % (11.5-14.5); Red Blood Count 3.44 M/uL (4.70-6.10); White Blood Count 8.63 K/ul (4.8-10.8)
[2024-07-26 07:16] LABS: BUN Creatinine Ratio 53.6 (10-20); Calcium 9.6 mg/dl (8.6-10.3); Est GFR (African American) 104.3 ml/min; INR 1.7 (0.9-1.1); Magnesium 1.9 mg/dl (1.7-2.4); Phosphorus 2.9 mg/dl (2.5-4.9); Potassium 3.7 mmol/L (3.5-5.1); Prothrombin Time 17.2 Seconds (9.0-12.0)
[2024-07-26 08:48] LABS: Base Excess VBG 26.3 mEq/L; HCO3 VBG 53 mmol/L; PCO2 VBG 63 mmHg (38-50); PO2 VBG 73 mmHg; pH VBG 7.53 (7.36-7.41)
[2024-07-26] MEDS: POTASSIUM CHLORIDE CRTAB 20 MEQ TABCR PO ONE (09:15)
--- NOTE | 2024-07-26 09:15 | Cardiology Progress Note ---
Date of Service July 26, 2024 Assessment & Plan (1) Acute on chronic heart failure with preserved ejection fraction: (2) Acute respiratory failure with hypoxia and hypercarbia: (3) Bilateral cellulitis of lower leg: (4) Hyperkalemia: (5) Hypotension: (6) Chronic a-fib: (7) Bradycardia: Plan Bilateral lower extremity cellulitis, buttocks wound Acute decompensated right heart failure, HFpEF, marked volume overload Morbid obesity, obesity hypoventilation syndrome, severe pulmonary hypertension, hypoxia hypercarbic respiratory failure Chronic atrial fibrillation Bradycardia. Off Coreg since 07/21. Theophylline added with significant improvement in heart rates (30's-40's -> 60's-70's). Not felt to be a candidate for permanent pacemaker due to infection. Recommendations: 1. Continue IV furosemide, 60 mg twice per day 2. Continue spironolactone 3. Additional supplemental potassium today, 40 mEq's 4. Continue Jardiance 5. Resume enalapril at the reduced dose of 2.5 mg/day (held throughout admission thus far due to hypotension) 6. Continue atorvastatin 7. BiPAP when napping during the day and all night Admission and Anticipated Discharge Date Admission Date: July 20, 2024 Supervising Physician Co-Signing Physician Notes I have personally performed a history and physical examination on the patient. I have reviewed the advance practitioner's documentation, and I agree with, and take responsibility for the plan of care. 68-year-old male with acute on chronic heart failure with preserved ejection fraction, obesity hypoventilation syndrome with severe pulmonary hypertension, and noncompliance. Heart rate improved/increased with addition of theophylline. Fluid balance -3.7 L (-16L since admission) Renal function remains stable. Continue IV diuresis, fluid and sodium restriction. Monitor fluid balance, daily weight, GFR, and electrolytes. BiPAP QHS. Continue spironolactone, Jardiance, and atorvastatin. Restart low-dose enalapril. Subtherapeutic INR, 1.7 noted today. Scheduled for 15 mg of warfarin today. Repeat INR in AM. Hemanth Patrick DO [facility] Subjective Patient seen and examined. Chart, medications, and telemetry reviewed. Improving cough, dyspnea, and fluid. No chest pain, palpitations, subjective fevers, or chills I's/O's: -16,318 mL overall Telemetry: Atrial fibrillation with heart rates in the 60's and 70s Review of Systems Review of Systems: Complete Review of Systems is as stated above, negative, or noncontributory Physical Exam Physical Exam: General: NAD. HENT: Normocephalic. Atraumatic. Eyes: PER. Conjunctiva pink, sclera clear. Neck: No overt JVD. Heart: Irregularly irregular at 70 bpm. No murmur. No rub. Lungs: Clear to auscultation anteriorly Abdomen: +BS. Soft. Nontender. No masses or organomegaly. Barron catheter in place Extremities: Improved right greater than left lower extremity erythema. Improved erythema. Limited neurological examination is without focal deficits. Pulses: radial=2/4, posterior tibial=0/4. Results & Data Vital Signs (Past 12 Hours) Vital Signs Temp Pulse Pulse Pulse Resp BP Pulse Ox 07/26/24 07:29 07/26/24 07:10 58 L 18 97 07/26/24 07:08 37.1 C 70 23 125/75 97 07/26/24 03:27 36.8 C 74 21 144/73 H 98 07/26/24 03:02 75 21 97 07/26/24 02:52 81 22 97 07/25/24 23:18 36.8 C 82 20 124/64 96 07/25/24 23:00 59 L 07/25/24 22:17 56 L 18 99 07/25/24 22:17 63 18 99 O2 Del Method FiO2 07/26/24 07:29 CPAP 07/26/24 07:10 BiPAP 35 07/26/24 07:08 BiPAP 07/26/24 03:27 BiPAP 07/26/24 03:02 35 07/26/24 02:52 BiPAP 35 07/25/24 23:18 BiPAP 07/25/24 23:00 07/25/24 22:17 BiPAP 35 07/25/24 22:17 35 Laboratory Results Coagulation 07/26/24 Range/Units 06:02 PT 17.2 H (9.0-12.0) Seconds CBC 07/26/24 Range/Units 06:02 WBC 8.63 (4.8-10.8) K/ul RBC 3.44 L (4.70-6.10) M/uL Hgb 9.8 L (14.0-18.0) g/dl Hct 30.7 L (42.0-52.0) % Plt Count 266 (130-400) K/uL Neut # (Auto) 6.28 (1.40-6.50) K/uL Lymph # (Auto) 1.09 L (1.20-3.40) K/uL Forrest # (Auto) 0.98 H (0.11-0.59) K/uL Eos # (Auto) 0.21 (0.00-0.50) K/uL Baso # (Auto) 0.02 (0.00-0.20) K/uL Comprehensive Metabolic Panel 07/26/24 Range/Units 06:02 Sodium 142 (136-145) mmol/L Potassium 3.7 (3.5-5.1) mmol/L Chloride 90 L (98-107) mmol/L Carbon Dioxide 45 H* (21-32) mmol/L BUN 45 H (6-23) mg/dl Creatinine 0.84 (0.6-1.4) mg/dl Glucose 101 H (70-99(Fasting)) mg/dl Calcium 9.6 (8.6-10.3) mg/dl Intake and Output 07/25/24 07/26/24 07/26/24 22:59 06:59 14:59 Output Total 1850 / 4400 700 / 4400 Balance -1850 / -3738 -700 / -3738 Output: Urine Amount (Catheter) 1850 / 4400 700 / 4400 Barron/Indwelling 1850 / 4400 700 / 4400 Other: Weight 140.3 kg Weight Measurement Method Built in [facility]
--- NOTE | 2024-07-26 11:38 | Hospitalist Progress Note ---
Date of Service July 26, 2024 Assessment & Plan (1) Obesity hypoventilation syndrome: (2) Acute on chronic heart failure with preserved ejection fraction: (3) Acute respiratory failure with hypoxia and hypercarbia: Plan Pt is a 68yoM with PMHx significant for chronic diastolic heart failure, A- fib/history DVT on Coumadin, valvular heart disease, hypertension, hyperlipidemia, chronic respiratory failure secondary to pulmonary hypertension, COPD, OHS on BiPAP, DM2, chronic anemia presenting from home with trouble breathing. History obtained from patient's daughter via telephone as well as patient in the room. Daughter states that he was discharged home from rehab in April and at that time was able to walk around and do things for himself. However she states that once he got home he "planted" himself on the chair and would not get up. States he is not fluid restricting as has been advised. States that he does have home PT services but they have not been getting him up. States he just chooses not to walk. States he does not have portable oxygen but does use oxygen with 2 L at home. States that he started with the trouble breathing about a week ago but it has progressed. States it sounded like there was a rattle in his chest for the last 1 to 2 weeks. Also concerned about wounds in his buttock region. States that they have been present since discharge from acute rehab. States that he has bathed twice since he has been home from rehab. Daughter notes that her typically helps him get cleaned up. Patient is alert and oriented and able to converse even with BiPAP on his face. Acute on chronic respiratory failure with hypoxia and hypercarbia Obesity hypoventilation syndrome On 2 L home oxygen Patient hypoxic on arrival, requiring BiPAP support VBG with pH of 7.30, pCO2 of 77 and bicarb of 38 Chest x-ray concerning for fluid overload and possible pneumonitis CT chest - mosaic groundglass densities in bilateral lungs which could be from small airway inflammation Respiratory BioFire negative Pro-Jorge negative Continue home nebulized bronchodilators Continue with BiPAP, wean as tolerated Pulmonology consulted, appreciate recs Has been on intravenous ceftriaxone and will add doxycycline Prednisone for a 5-day course as per the administrative specialist Clinically little better and would continue current management Will continue with the intravenous ceftriaxone and doxycycline and discontinue daptomycin Remains stable and a little worse today with increasing shortness of breath Denies any cough, fever and/or chills Will continue current antibiotic- clinically much better and denies any significant symptoms of cough, fever and the white count has been normalized clinically much better and will continue current antibiotic and bronchodilators and oxygen Has been saturating normally on 2 L of nasal cannula oxygen at his baseline Denies any significant chest pain and/or palpitation or any more shortness of breath Metabolic alkalosis Likely secondary to contracted volume Will decrease the dose of Lasix Acute on chronic congestive heart failure Admitted with bilateral leg cellulitis with increased swelling was for the last few days Denies any chest pain and/or palpitation Repeat echo pending Patient received IV Lasix 40 mg in the ED, continue with IV Lasix 40 mg daily Hold home torsemide, will hold home spironolactone with noted hyperkalemia (see below) Will place Barron for accurate measurements, Monitor I's and O's, daily weights Cardiology consulted, appreciate recs Has had negative a little over 2 L of fluid Will increase Lasix 60 mg IV twice daily and monitor kidney function Will continue to monitor in the telemetry unit Remains stable and electrolytes are unremarkable Has had more than 5 L negative balance as of today Will continue current dose of intravenous Lasix for now Has had more than 8 L of negative balance so far and clinically he has been improving, will continue current management Clinically much better and has had 12,580 mL of negative balance Will continue intravenous Lasix 60 mg twice daily Monitor PRP and electrolytes CO2 has been rising up VBG showed pH of 7.53, pCO2 63 and bicarb 53 Likely has metabolic alkalosis secondary to contracted volume Will hold off Lasix dose tonight and monitor PRP Lower extremity cellulitis Lower extremity edema Bilateral lower extremities with warmth and erythema, right greater than left Noted lower extremity swelling, significant Started on IV Rocephin and Daptomycin On daily IV Lasix 40 mg as noted above which will help with her edema Continue to monitor Will check MRSA-Negative If negative will discontinue daptomycin Lower extremity cellulitis has improved a lot Buttock wounds Wound nurse consult On IV Rocephin and daptomycin as noted above Continue to monitor for need for surgical debridement Continue with the wound care Hyperkalemia Potassium 5.7 on admission Hold home potassium supplements Holding home spironolactone as noted above Continue to monitor with a.m. labs Potassium level remains elevated at 5.5 will hold losartan Potassium level has been normalized and will hold oral potassium, spironolactone and losartan for now Potassium level has been normalized Atrial fibrillation EKG noting A-fib with slow ventricular response continue home Coreg patient currently therapeutically anticoagulated with warfarin, INR 2.5 Cardiology consulted as above Follow INR, continue to monitor on telemetry-INR remains therapeutic at 2.5 INR is high at 3.4 today and Coumadin is on hold INR is 2.4 today and will restart Coumadin Continue other home meds as ordered CODE STATUS: Full code per discussion with patient Diet: Heart healthy, DM2 with fluid restriction of 1500 mL DVT prophylaxis: On warfarin, currently therapeutic Dispo: Admit to PCU telemetry Admission and Anticipated Discharge Date Admission Date: July 20, 2024 Subjective 07/21/2024 The patient was seen and examined in telemetry unit He has been complaining of increasing leg swelling redness and also increasing shortness of breath worse for the last day or 2 Has had BiPAP last night and feeling little bit better this morning Denies any chest pain and/or palpitation, no abdominal pain nausea and or vomiting 07/22/2024 The patient was seen and examined in telemetry unit He has been feeling a little better since admission Still complains to have leg pain and leg swelling Denies any chest pain and/or palpitation 07/23/2024 The patient was seen and examined in telemetry unit He has been drowsy today and complains to have shortness of breath Denies any chest pain and/or palpitation Noted to have high CO2 at 41 and now is on BiPAP 07/24/2024 The patient was seen and examined in telemetry unit He has been feeling much better today and is out of bed on a chair Denies any significant shortness of breath and the legs are getting smaller Leg wounds are better too 07/25/2024 The patient was seen and examined in telemetry unit He has been feeling much better and sitting on the chair No significant symptoms at rest Leg swelling has improved and redness of the legs have improved too 07/26/2024 The patient was seen and examined in telemetry unit He has been feeling much better with less shortness of breath at rest Has been minimal symptoms of breathing but complains to have pain at the back His legs are much better Review of Systems Review of Systems: All systems reviewed and are unremarkable except noted below Physical Exam Physical Exam: Sitting on a chair without any significant shortness of breath at rest Constitutional: well developed, well nourished, + ill appearing and + morbidly obese Eyes: PERRL, conjunctivae normal, anicteric sclerae ENMT: external ear and nose normal, oropharynx normal Neck: trachea midline, no thyromegaly Respiratory: + respiratory distress Auscultation: + diminished lung sounds, + crackles and + wheezes Cardiovascular: Rate/Rhythm: + irregularly irregular Heart Sounds: normal S1 and normal S2; no murmur Extremities: + edema ( 1+ bilateral leg edema with redness involving the legs) Gastrointestinal (Abdomen): Inspection/Auscultation: + abdomen distended and normal bowel sounds Percussion/Palpation: abdomen soft; abdomen nontender Neurologic: normal touch/pain/proprioception and moves all extremities; no f ocal motor deficits Lymphatic: no cervical or axillary lymphadenopathy Results & Data Results & Data Vital Signs (Past 12 Hours) Vital Signs Temp Pulse Pulse Pulse Resp BP Pulse Ox 07/26/24 11:10 88 18 93 07/26/24 07:29 07/26/24 07:10 58 L 18 97 07/26/24 07:08 37.1 C 70 23 125/75 97 07/26/24 03:27 36.8 C 74 21 144/73 H 98 07/26/24 03:02 75 21 97 07/26/24 02:52 81 22 97 O2 Del Method O2 Flow Rate FiO2 07/26/24 11:10 Nasal Cannula 2 07/26/24 07:29 CPAP 07/26/24 07:10 BiPAP 35 07/26/24 07:08 BiPAP 07/26/24 03:27 BiPAP 07/26/24 03:02 35 07/26/24 02:52 BiPAP 35 Laboratory Results Short CBC 07/26/24 Range/Units 06:02 WBC 8.63 (4.8-10.8) K/ul Hgb 9.8 L (14.0-18.0) g/dl Hct 30.7 L (42.0-52.0) % Plt Count 266 (130-400) K/uL BMP 07/26/24 06:02 Sodium 142 Potassium 3.7 Chloride 90 L Carbon Dioxide 45 H* BUN 45 H Creatinine 0.84 Glucose 101 H Calcium 9.6 Medications Administered Current Inpatient Medications Acetaminophen (Acetaminophen 325 Mg Tab) 650 mg PO QID PRN PRN Reason: pain/fever Stop: 08/22/24 22:59 Last Admin: 07/25/24 21:14 Dose: 650 mg Albuterol (Albuterol Hfa 8 Gm Inhaler) 2 puffs INH Q6H PRN PRN Reason: Shortness Of Breath Or Wheezing Stop: 08/19/24 18:42 Albuterol (Albut/Ipratrop 3mg/0.5mg Neb 3 Ml Vial) 3 ml NEB Q4R [facility]; Protocol Stop: 08/20/24 09:59 Last Admin: 07/26/24 11:10 Dose: 3 ml Budesonide (Budesonide 0.5 Mg/2 Ml Vial (Pulmicort)) 0.5 mg NEB BIDR [facility] Stop: 08/20/24 18:59 Last Admin: 07/26/24 07:10 Dose: 0.5 mg Dextrose (Dextrose 50% 50 Ml Syringe) 25 - 50 ml IV UD PRN; Protocol PRN Reason: Hypoglycemia Protocol Stop: 08/19/24 18:42 Empagliflozin (Empagliflozin 10 Mg Tab) 10 mg PO QAM [facility] Stop: 08/20/24 08:59 Last Admin: 07/26/24 09:18 Dose: 10 mg Enalapril Maleate (Enalapril Maleate 5 Mg Tab) 2.5 mg PO DAILY [facility] Stop: 08/26/24 08:59 Fluticasone Propionate (Fluticasone Propionate Na Spr 16 Gm Btl) 2 sprays NA DAILY [facility] Stop: 08/20/24 08:59 Last Admin: 07/26/24 09:18 Dose: 2 sprays Formoterol Fumarate (Formoterol 20 Mcg/2 Ml Vial) 20 mcg NEB BIDR [facility] Stop: 08/20/24 09:59 Last Admin: 07/26/24 07:10 Dose: 20 mcg Furosemide (Furosemide 40 Mg/4 Ml Vial) 60 mg IV [id number] [facility] Stop: 08/21/24 16:59 Last Admin: 07/26/24 10:20 Dose: 60 mg Glucagon (Glucagon For Inj 1 Mg Vial) 1 mg SQ UD PRN; Protocol PRN Reason: Hypoglycemia Protocol Stop: 08/19/24 18:42 Glucose (Glucose 40% Gel 15 Gm Tube) 15 - 30 gm PO UD PRN; Protocol PRN Reason: Hypoglycemia Protocol Stop: 08/19/24 18:42 Glucose (Glucose 10 Tab/Tube) 4 - 8 tab PO UD PRN; Protocol PRN Reason: Hypoglycemia Treatment Stop: 08/19/24 18:42 Guaifenesin (Guaifenesin 600 Mg Tabcr) 1,200 mg PO Q12 [facility] Stop: 08/20/24 20:59 Last Admin: 07/26/24 09:17 Dose: 1,200 mg Insulin Aspart (Insulin Aspart Per Unit Charge) 0 units SC ACHS [facility] Stop: 08/19/24 20:59 Last Admin: 07/26/24 09:14 Dose: 6 units Miscellaneous (Carbohydrates For Hypoglycemia ) 15 - 30 gm PO UD PRN PRN Reason: Hypoglycemia Protocol Stop: 08/19/24 18:42 Montelukast Sodium (Montelukast Sodium 10 Mg Tablet) 10 mg PO QAM [facility] Stop: 08/20/24 08:59 Last Admin: 07/26/24 09:19 Dose: 10 mg Pantoprazole Sodium (Pantoprazole 40 Mg Tab) 40 mg PO DAILY [facility] Stop: 08/20/24 08:59 Last Admin: 07/26/24 09:19 Dose: 40 mg Sodium Chloride (Sodium Chlor 7% 4 Ml Neb) 4 ml NEB BIDR [facility] Stop: 08/20/24 18:59 Last Admin: 07/26/24 07:10 Dose: 4 ml Spironolactone (Spironolactone 12.5 Mg Tab) 12.5 mg PO DAILY [facility] Stop: 08/24/24 10:59 Last Admin: 07/26/24 09:18 Dose: 12.5 mg Theophylline (Theophylline 400 Mg Extended Rel Tab) 100 mg PO BID [facility] Stop: 08/22/24 11:44 Last Admin: 07/26/24 09:15 Dose: 100 mg Warfarin Sodium (Warfarin Sod 10 Mg Tab) 10 mg PO [email or web address] [facility] Stop: 08/19/24 18:59 Last Admin: 07/24/24 18:09 Dose: 10 mg Warfarin Sodium (Warfarin Sod 5 Mg Tab) 15 mg PO [id number] [facility] Stop: 08/20/24 15:59 Last Admin: 07/25/24 16:44 Dose: 15 mg
[2024-07-27 06:59] LABS: Prothrombin Time 20.2 Seconds (9.0-12.0)
[2024-07-27 07:00] LABS: BUN Creatinine Ratio 51.7 (10-20); Calcium 9.4 mg/dl (8.6-10.3); Creatinine Clr Calc Pharmacy 109.5 ml/min; Est GFR (African American) 102.8 ml/min; Est GFR (Non-African American) 88.7 ml/min; Potassium 3.6 mmol/L (3.5-5.1)
[2024-07-27] MEDS: ENALAPRIL MALEATE 5 MG TAB PO SCH (08:22)
--- NOTE | 2024-07-27 10:22 | Cardiology Progress Note ---
Date of Service July 27, 2024 Assessment & Plan (1) Acute on chronic heart failure with preserved ejection fraction: (2) Acute respiratory failure with hypoxia and hypercarbia: (3) Bilateral cellulitis of lower leg: (4) Hyperkalemia: (5) Hypotension: (6) Chronic a-fib: (7) Bradycardia: Plan Bilateral lower extremity cellulitis, buttocks wound Acute decompensated right heart failure, HFpEF, marked volume overload Morbid obesity, obesity hypoventilation syndrome, severe pulmonary hypertension, hypoxia hypercarbic respiratory failure Chronic atrial fibrillation Bradycardia. Off Coreg since 07/21. Theophylline added with significant improvement in heart rates (30's-40's -> 60's-70's). Not felt to be a candidate for permanent pacemaker due to infection. Recommendations: 1. Continue IV furosemide, 60 mg twice per day 2. Continue spironolactone 3. Additional supplemental potassium today, 40 mEq's 4. Continue Jardiance 5. Resume enalapril at the reduced dose of 2.5 mg/day (held throughout admission thus far due to hypotension) 6. Continue atorvastatin 7. BiPAP when napping during the day and all night 07/27/2024 Assessment and plan as above Heart rates improved on low-dose theophylline No further bradycardia arrhythmias We will discontinue IV furosemide Begin torsemide 40 mg twice per day CHF instruction Admission and Anticipated Discharge Date Admission Date: July 20, 2024 Subjective Patient seen and examined, chart, medications, telemetry reviewed Patient without acute complaints other than "feels dehydrated" Lower extremity edema substantially improved. No dizziness lightheadedness syncope or near syncope. Remains in atrial fibrillation with rate control. Used BiPAP overnight as previous Weight down approximately 20 kg and approaching dry weight from last hospitalization Review of Systems Review of Systems: All systems reviewed & are unremarkable except as noted in Subjective Physical Exam Constitutional: + morbidly obese; no acute distress ENMT: external ear and nose normal, oropharynx normal Neck: trachea midline, no thyromegaly Respiratory: Auscultation: + diminished lung sounds; no wheezes Cardiovascular: Rate/Rhythm: regular rate and + irregularly irregular Vessels: no JVD Extremities: + edema (Chronic stasis edema improving with ruborous skin changes present) Results & Data Vital Signs (Past 12 Hours) Vital Signs Temp Pulse Pulse Resp BP Pulse Ox O2 Del Method 07/27/24 10:15 61 07/27/24 07:20 71 16 94 Nasal Cannula 07/27/24 07:05 36.6 C 60 17 124/80 98 BiPAP 07/27/24 03:30 36.8 C 54 L 19 121/67 96 BiPAP 07/27/24 02:53 53 L 17 98 07/27/24 02:52 50 L 17 98 BiPAP 07/26/24 23:59 89 07/26/24 23:28 36.8 C 71 17 121/71 97 BiPAP 07/26/24 23:15 69 18 98 07/26/24 23:15 69 18 98 BiPAP O2 Flow Rate FiO2 07/27/24 10:15 07/27/24 07:20 2 07/27/24 07:05 07/27/24 03:30 07/27/24 02:53 35 07/27/24 02:52 35 07/26/24 23:59 07/26/24 23:28 07/26/24 23:15 35 07/26/24 23:15 35 Laboratory Results Laboratory Results - last 24 hr 07/26/24 07/26/24 07/26/24 11:15 16:13 19:17 PT INR Sodium Potassium Chloride Carbon Dioxide Anion Gap BUN Creatinine Est Cr Clr Drug Dosing Est GFR ( Amer) Est GFR (Non-Af Amer) BUN/Creatinine Ratio Glucose POC Glucose 107 H 167 H 174 H Calcium 07/27/24 07/27/24 05:47 07:04 PT 20.2 H INR 2.0 H Sodium 141 Potassium 3.6 Chloride 91 L Carbon Dioxide 43 H* Anion Gap 7 BUN 45 H Creatinine 0.87 Est Cr Clr Drug Dosing 109.5 Est GFR ( Amer) 102.8 Est GFR (Non-Af Amer) 88.7 BUN/Creatinine Ratio 51.7 H Glucose 97 POC Glucose 119 H Calcium 9.4
--- NOTE | 2024-07-27 12:50 | Hospitalist Progress Note ---
Date of Service July 27, 2024 Assessment & Plan (1) Obesity hypoventilation syndrome: (2) Acute on chronic heart failure with preserved ejection fraction: (3) Acute respiratory failure with hypoxia and hypercarbia: Plan Pt is a 68yoM with PMHx significant for chronic diastolic heart failure, A- fib/history DVT on Coumadin, valvular heart disease, hypertension, hyperlipidemia, chronic respiratory failure secondary to pulmonary hypertension, COPD, OHS on BiPAP, DM2, chronic anemia presenting from home with trouble breathing. History obtained from patient's daughter via telephone as well as patient in the room. Daughter states that he was discharged home from rehab in April and at that time was able to walk around and do things for himself. However she states that once he got home he "planted" himself on the chair and would not get up. States he is not fluid restricting as has been advised. States that he does have home PT services but they have not been getting him up. States he just chooses not to walk. States he does not have portable oxygen but does use oxygen with 2 L at home. States that he started with the trouble breathing about a week ago but it has progressed. States it sounded like there was a rattle in his chest for the last 1 to 2 weeks. Also concerned about wounds in his buttock region. States that they have been present since discharge from acute rehab. States that he has bathed twice since he has been home from rehab. Daughter notes that her typically helps him get cleaned up. Patient is alert and oriented and able to converse even with BiPAP on his face. Acute on chronic respiratory failure with hypoxia and hypercarbia Obesity hypoventilation syndrome On 2 L home oxygen Patient hypoxic on arrival, requiring BiPAP support VBG with pH of 7.30, pCO2 of 77 and bicarb of 38 Chest x-ray concerning for fluid overload and possible pneumonitis CT chest - mosaic groundglass densities in bilateral lungs which could be from small airway inflammation Respiratory BioFire negative Pro-Jorge negative Continue home nebulized bronchodilators Continue with BiPAP, wean as tolerated Pulmonology consulted, appreciate recs Has been on intravenous ceftriaxone and will add doxycycline Prednisone for a 5-day course 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 Clinically little better and would continue current management Will continue with the intravenous ceftriaxone and doxycycline and discontinue daptomycin Remains stable and a little worse today with increasing shortness of breath Denies any cough, fever and/or chills Will continue current antibiotic- clinically much better and denies any significant symptoms of cough, fever and the white count has been normalized clinically much better and will continue current antibiotic and bronchodilators and oxygen Has been saturating normally on 2 L of nasal cannula oxygen at his baseline Denies any significant chest pain and/or palpitation or any more shortness of breath Clinically much better and the intravenous diuretics has been changed to oral Remains medically stable to be transferred Metabolic alkalosis Likely secondary to contracted volume Will decrease the dose of Lasix CO2 was improved to 43 from 45 and expected to improve with discontinuation of the intravenous Lasix Will continue BiPAP at nighttime and while sleeping Acute on chronic congestive heart failure Admitted with bilateral leg cellulitis with increased swelling was for the last few days Denies any chest pain and/or palpitation Repeat echo pending Patient received IV Lasix 40 mg in the ED, continue with IV Lasix 40 mg daily Hold home torsemide, will hold home spironolactone with noted hyperkalemia (see below) Will place Barron for accurate measurements, Monitor I's and O's, daily weights Cardiology consulted, appreciate recs Has had negative a little over 2 L of fluid Will increase Lasix 60 mg IV twice daily and monitor kidney function Will continue to monitor in the telemetry unit Remains stable and electrolytes are unremarkable Has had more than 5 L negative balance as of today Will continue current dose of intravenous Lasix for now Has had more than 8 L of negative balance so far and clinically he has been improving, will continue current management Clinically much better and has had 12,580 mL of negative balance Will continue intravenous Lasix 60 mg twice daily Monitor PRP and electrolytes CO2 has been rising up VBG showed pH of 7.53, pCO2 63 and bicarb 53 Likely has metabolic alkalosis secondary to contracted volume Will hold off Lasix dose tonight and monitor PRP Has been changed to oral Lasix Lower extremity cellulitis Lower extremity edema Bilateral lower extremities with warmth and erythema, right greater than left Noted lower extremity swelling, significant Started on IV Rocephin and Daptomycin On daily IV Lasix 40 mg as noted above which will help with her edema Continue to monitor Will check MRSA-Negative If negative will discontinue daptomycin Lower extremity cellulitis has improved a lot Buttock wounds Wound nurse consult On IV Rocephin and daptomycin as noted above Continue to monitor for need for surgical debridement Continue with the wound care Hyperkalemia Potassium 5.7 on admission Hold home potassium supplements Holding home spironolactone as noted above Continue to monitor with a.m. labs Potassium level remains elevated at 5.5 will hold losartan Potassium level has been normalized and will hold oral potassium, spironolactone and losartan for now Potassium level has been normalized Atrial fibrillation EKG noting A-fib with slow ventricular response continue home Coreg patient currently therapeutically anticoagulated with warfarin, INR 2.5 Cardiology consulted as above Follow INR, continue to monitor on telemetry-INR remains therapeutic at 2.5 INR is high at 3.4 today and Coumadin is on hold INR is 2.4 today and will restart Coumadin Continue other home meds as ordered CODE STATUS: Full code per discussion with patient Diet: Heart healthy, DM2 with fluid restriction of 1500 mL DVT prophylaxis: On warfarin, currently therapeutic Dispo: Admit to PCU telemetry Admission and Anticipated Discharge Date Admission Date: July 20, 2024 Subjective 07/21/2024 The patient was seen and examined in telemetry unit He has been complaining of increasing leg swelling redness and also increasing shortness of breath worse for the last day or 2 Has had BiPAP last night and feeling little bit better this morning Denies any chest pain and/or palpitation, no abdominal pain nausea and or vomiting 07/22/2024 The patient was seen and examined in telemetry unit He has been feeling a little better since admission Still complains to have leg pain and leg swelling Denies any chest pain and/or palpitation 07/23/2024 The patient was seen and examined in telemetry unit He has been drowsy today and complains to have shortness of breath Denies any chest pain and/or palpitation Noted to have high CO2 at 41 and now is on BiPAP 07/24/2024 The patient was seen and examined in telemetry unit He has been feeling much better today and is out of bed on a chair Denies any significant shortness of breath and the legs are getting smaller Leg wounds are better too 07/25/2024 The patient was seen and examined in telemetry unit He has been feeling much better and sitting on the chair No significant symptoms at rest Leg swelling has improved and redness of the legs have improved too 07/26/2024 The patient was seen and examined in telemetry unit He has been feeling much better with less shortness of breath at rest Has been minimal symptoms of breathing but complains to have pain at the back His legs are much better 07/27/2024 The patient was seen and examined in telemetry unit He has been feeling a little better today Denies any shortness of breath at rest and has been saturating normally on 2 L His CO2 has improved a little bit from 45-43 Likely discharge tomorrow if accepted to facility Review of Systems Review of Systems: All systems reviewed and are unremarkable except noted below Physical Exam Physical Exam: Sitting on a chair without any significant shortness of breath at rest Constitutional: well developed, well nourished, + ill appearing and + morbidly obese Eyes: PERRL, conjunctivae normal, anicteric sclerae ENMT: external ear and nose normal, oropharynx normal Neck: trachea midline, no thyromegaly Respiratory: + respiratory distress Auscultation: + diminished lung sounds, + crackles and + wheezes Cardiovascular: Rate/Rhythm: + irregularly irregular Heart Sounds: normal S1 and normal S2; no murmur Extremities: + edema ( 1+ bilateral leg edema with redness involving the legs) Gastrointestinal (Abdomen): Inspection/Auscultation: + abdomen distended and normal bowel sounds Percussion/Palpation: abdomen soft; abdomen nontender Neurologic: normal touch/pain/proprioception and moves all extremities; no focal motor deficits Lymphatic: no cervical or axillary lymphadenopathy Results & Data Results & Data Vital Signs (Past 12 Hours) Vital Signs Temp Pulse Pulse Pulse Resp BP Pulse Ox 07/27/24 10:20 36.8 C 68 18 121/69 94 07/27/24 10:16 07/27/24 10:15 61 07/27/24 07:20 71 16 94 07/27/24 07:05 36.6 C 60 17 124/80 98 07/27/24 03:30 36.8 C 54 L 19 121/67 96 07/27/24 02:53 53 L 17 98 07/27/24 02:52 50 L 17 98 O2 Del Method O2 Flow Rate FiO2 07/27/24 10:20 Nasal Cannula 2 07/27/24 10:16 Nasal Cannula 2 07/27/24 10:15 07/27/24 07:20 Nasal Cannula 2 07/27/24 07:05 BiPAP 07/27/24 03:30 BiPAP 07/27/24 02:53 35 07/27/24 02:52 BiPAP 35 Laboratory Results BMP 07/27/24 05:47 Sodium 141 Potassium 3.6 Chloride 91 L Carbon Dioxide 43 H* BUN 45 H Creatinine 0.87 Glucose 97 Calcium 9.4 Medications Administered Current Inpatient Medications Acetaminophen (Acetaminophen 325 Mg Tab) 650 mg PO QID PRN PRN Reason: pain/fever Stop: 08/22/24 22:59 Last Admin: 07/26/24 23:38 Dose: 650 mg Albuterol (Albuterol Hfa 8 Gm Inhaler) 2 puffs INH Q6H PRN PRN Reason: Shortness Of Breath Or Wheezing Stop: 08/19/24 18:42 Albuterol (Albut/Ipratrop 3mg/0.5mg Neb 3 Ml Vial) 3 ml NEB Q4R PRN; Protocol PRN Reason: sob or wheezing Stop: 08/20/24 09:59 Budesonide (Budesonide 0.5 Mg/2 Ml Vial (Pulmicort)) 0.5 mg NEB BIDR [facility] Stop: 08/20/24 18:59 Last Admin: 07/27/24 07:19 Dose: 0.5 mg Dextrose (Dextrose 50% 50 Ml Syringe) 25 - 50 ml IV UD PRN; Protocol PRN Reason: Hypoglycemia Protocol Stop: 08/19/24 18:42 Empagliflozin (Empagliflozin 10 Mg Tab) 10 mg PO QAM [facility] Stop: 08/20/24 08:59 Last Admin: 07/27/24 08:22 Dose: 10 mg Enalapril Maleate (Enalapril Maleate 5 Mg Tab) 2.5 mg PO DAILY [facility] Stop: 08/26/24 08:59 Last Admin: 07/27/24 08:22 Dose: 2.5 mg Fluticasone Propionate (Fluticasone Propionate Na Spr 16 Gm Btl) 2 sprays NA DAILY [facility] Stop: 08/20/24 08:59 Last Admin: 07/27/24 08:23 Dose: 2 sprays Formoterol Fumarate (Formoterol 20 Mcg/2 Ml Vial) 20 mcg NEB BIDR [facility] Stop: 08/20/24 09:59 Last Admin: 07/27/24 07:20 Dose: 20 mcg Glucagon (Glucagon For Inj 1 Mg Vial) 1 mg SQ UD PRN; Protocol PRN Reason: Hypoglycemia Protocol Stop: 08/19/24 18:42 Glucose (Glucose 40% Gel 15 Gm Tube) 15 - 30 gm PO UD PRN; Protocol PRN Reason: Hypoglycemia Protocol Stop: 08/19/24 18:42 Glucose (Glucose 10 Tab/Tube) 4 - 8 tab PO UD PRN; Protocol PRN Reason: Hypoglycemia Treatment Stop: 08/19/24 18:42 Guaifenesin (Guaifenesin 600 Mg Tabcr) 1,200 mg PO Q12 [facility] Stop: 08/20/24 20:59 Last Admin: 07/27/24 08:18 Dose: 1,200 mg Insulin Aspart (Insulin Aspart Per Unit Charge) 0 units SC ACHS [facility] Stop: 08/19/24 20:59 Last Admin: 07/27/24 12:08 Dose: 6 units Miscellaneous (Carbohydrates For Hypoglycemia ) 15 - 30 gm PO UD PRN PRN Reason: Hypoglycemia Protocol Stop: 08/19/24 18:42 Montelukast Sodium (Montelukast Sodium 10 Mg Tablet) 10 mg PO QAM [facility] Stop: 08/20/24 08:59 Last Admin: 07/27/24 08:23 Dose: 10 mg Pantoprazole Sodium (Pantoprazole 40 Mg Tab) 40 mg PO DAILY [facility] Stop: 08/20/24 08:59 Last Admin: 07/27/24 08:20 Dose: 40 mg Sodium Chloride (Sodium Chlor 7% 4 Ml Neb) 4 ml NEB BIDR [facility] Stop: 08/20/24 18:59 Last Admin: 07/27/24 07:19 Dose: 4 ml Spironolactone (Spironolactone 12.5 Mg Tab) 12.5 mg PO DAILY [facility] Stop: 08/24/24 10:59 Last Admin: 07/27/24 08:20 Dose: 12.5 mg Theophylline (Theophylline 400 Mg Extended Rel Tab) 100 mg PO BID [facility] Stop: 08/22/24 11:44 Last Admin: 07/27/24 08:19 Dose: 100 mg Torsemide (Torsemide 20 Mg Tab) 40 mg PO [id number] [facility] Stop: 08/26/24 16:59 Warfarin Sodium (Warfarin Sod 10 Mg Tab) 10 mg PO [email or web address] [facility] Stop: 08/19/24 18:59 Last Admin: 07/24/24 18:09 Dose: 10 mg Warfarin Sodium (Warfarin Sod 5 Mg Tab) 15 mg PO [email or web address] [facility] Stop: 08/20/24 15:59 Last Admin: 07/26/24 16:12 Dose: 15 mg
[2024-07-27] MEDS: TORSEMIDE 20 MG TAB PO SCH (17:24)
[2024-07-28 06:27] LABS: Basophils # (auto) 0.04 K/uL (0.00-0.20); Basophils % (auto) 0.4 %; Eosinophils # (auto) 0.36 K/uL (0.00-0.50); Eosinophils % (auto) 3.8 %; Hematocrit (blood only) 32.7 % (42.0-52.0); Hemoglobin 10.4 g/dl (14.0-18.0); Immature Granulocytes # (auto) 0.04 K/uL (0.01-0.20); Immature Granulocytes % (auto) 0.4 %; Lymphocytes # (auto) 1.36 K/uL (1.20-3.40); Lymphocytes % (auto) 14.3 %; Mean Corpuscular Hemoglobin 28.4 pg (25.0-34.0); Mean Corpuscular Hgb Conc 31.8 g/dL (32.0-36.0); Mean Corpuscular Volume 89.3 fL (80.0-100.0); Mean Platelet Volume 9.5 fL (9.4-12.4); Monocytes # (auto) 1.07 K/uL (0.11-0.59); Monocytes % (auto) 11.2 %; Neutrophils # (auto) 6.67 K/uL (1.40-6.50); Neutrophils % (auto) 69.9 %; Platelet Count 275 K/uL (130-400); RDW Coefficient of Variation 16.2 % (11.5-14.5); RDW Standard Deviation 53.7 fL (36.4-46.3); Red Blood Count 3.66 M/uL (4.70-6.10); White Blood Count 9.54 K/ul (4.8-10.8)
[2024-07-28 06:56] LABS: BUN Creatinine Ratio 53.8 (10-20); Calcium 9.2 mg/dl (8.6-10.3); Creatinine Clr Calc Pharmacy 104.7 ml/min; Est GFR (Non-African American) 86.3 ml/min; Magnesium 1.9 mg/dl (1.7-2.4); Potassium 3.8 mmol/L (3.5-5.1)
--- NOTE | 2024-07-28 09:50 | Cardiology Progress Note ---
Date of Service July 28, 2024 Assessment & Plan (1) Acute on chronic heart failure with preserved ejection fraction: (2) Acute respiratory failure with hypoxia and hypercarbia: (3) Bilateral cellulitis of lower leg: (4) Hyperkalemia: (5) Hypotension: (6) Chronic a-fib: (7) Bradycardia: Plan Bilateral lower extremity cellulitis, buttocks wound Acute decompensated right heart failure, HFpEF, marked volume overload Morbid obesity, obesity hypoventilation syndrome, severe pulmonary hypertension, hypoxia hypercarbic respiratory failure Chronic atrial fibrillation Bradycardia. Off Coreg since 07/21. Theophylline added with significant improvement in heart rates (30's-40's -> 60's-70's). Not felt to be a candidate for permanent pacemaker due to infection. Recommendations: 1. Continue IV furosemide, 60 mg twice per day 2. Continue spironolactone 3. Additional supplemental potassium today, 40 mEq's 4. Continue Jardiance 5. Resume enalapril at the reduced dose of 2.5 mg/day (held throughout admission thus far due to hypotension) 6. Continue atorvastatin 7. BiPAP when napping during the day and all night 07/27/2024 Assessment and plan as above Heart rates improved on low-dose theophylline No further bradycardia arrhythmias We will discontinue IV furosemide Begin torsemide 40 mg twice per day CHF instruction 07/28/24: Patient with continued improvement in volume status. 3.7 L output yesterday with transitioning to oral diuretics. Weight continues to trend downward. Continue torsemide 40 mg BID Continue spironolactone 12.5 mg daily Continue Theophylline. HR's remain well controlled. No bradyarrhythmias. INR 2.0- continue coumadin BIPAP encouraged with supplemental O2 during the day. PT/OT. consider rehab placement. Would also recommend removing hernandez and urination trials before he is discharge. No further cardiac testing warranted at this time. Patient on appropriate oral medications Stable for discharge from cardiac perspective when bed available at rehab or after PT evaluation. Case discussed with Dr. Franklin Dao spent a total of 30 minutes on the date of service in preparation, delivery, and documentation of the care provided to this patient, excluding any time spent in the performance of separately billed services. Bettina Brizuela PA-C Department of Cardiology, [facility] This chart was completed in part utilizing Speech Voice Recognition Software. Grammatical errors, random word insertions, pronoun errors, and incomplete sen tences are an occasional consequence of this system due to software limitations, ambient noise, and hardware issues. Any formal questions or concerns about the content, text, or information contained within the body of this dictation should be directly addressed to the provider for clarification. Admission and Anticipated Discharge Date Admission Date: July 20, 2024 Supervising Physician Co-Signing Physician Notes Patient was seen and personally examined I have reviewed the advance practitioner's documentation, and I agree with, and take responsibility for the plan of care. Patient continues to demonstrate improvement. No further bradycardia arrhythmias Medications optimized CHF instruction packet to be provided to patient Discussed in detail. Ultimate goal to prevent acute relapse. Patient has undergone diuresis for over 40 pounds of fluid I spent a total of 30 minutes on the date of service in preparation, delivery, and documentation of the care provided to this patient, excluding any time spent in the performance of separately billed services. Subjective Patient resting out of bed comfortably. Reports SOB is back to baseline. Edema improved. No chest pain. No dizziness. Tolerating oral diuretics. No orthopnea, PND or edema. He is concerned about blood tinged sputum over the last few days. No fever or chills. Cough overall has improved. He is wanting to do PT today and "get stronger" so he can go home. Review of Systems Review of Systems: All systems reviewed & are unremarkable except as noted in HPI & below Physical Exam Constitutional: + morbidly obese; no acute distress ENMT: external ear and nose normal, oropharynx normal Neck: trachea midline, no thyromegaly Respiratory: Auscultation: + diminished lung sounds; no wheezes Cardiovascular: Rate/Rhythm: regular rate and + irregularly irregular Vessels: no JVD Extremities: + edema (Chronic stasis edema improving with ruborous skin changes present) Neurologic: PERRL, EOMI, accommodation nl, no face palsy, no dysarthria Results & Data Vital Signs (Past 12 Hours) Vital Signs Temp Pulse Pulse Resp BP Pulse Ox O2 Del Method 07/28/24 07:06 87 25 H 94 Nasal Cannula 07/28/24 04:12 36.4 C L 64 20 115/64 97 BiPAP 07/28/24 03:29 65 19 97 07/27/24 23:59 56 L 07/27/24 23:01 36.7 C 71 18 106/67 99 BiPAP 07/27/24 21:45 Nasal Cannula O2 Flow Rate FiO2 07/28/24 07:06 3 07/28/24 04:12 07/28/24 03:29 35 07/27/24 23:59 07/27/24 23:01 07/27/24 21:45 2.5 Laboratory Results CBC 07/28/24 Range/Units 05:20 WBC 9.54 (4.8-10.8) K/ul RBC 3.66 L (4.70-6.10) M/uL Hgb 10.4 L (14.0-18.0) g/dl Hct 32.7 L (42.0-52.0) % Plt Count 275 (130-400) K/uL Neut # (Auto) 6.67 H (1.40-6.50) K/uL Lymph # (Auto) 1.36 (1.20-3.40) K/uL [place] # (Auto) 1.07 H (0.11-0.59) K/uL Eos # (Auto) 0.36 (0.00-0.50) K/uL Baso # (Auto) 0.04 (0.00-0.20) K/uL Comprehensive Metabolic Panel 07/28/24 Range/Units 05:20 Sodium 140 (136-145) mmol/L Potassium 3.8 (3.5-5.1) mmol/L Chloride 90 L (98-107) mmol/L Carbon Dioxide 42 H* (21-32) mmol/L BUN 49 H (6-23) mg/dl Creatinine 0.91 (0.6-1.4) mg/dl Glucose 83 (70-99(Fasting)) mg/dl Calcium 9.2 (8.6-10.3) mg/dl Intake and Output 07/27/24 07/28/24 07/28/24 22:59 06:59 14:59 Intake Total 150 / 780 150 / 780 Output Total 1575 / 3701 1200 / 3701 Balance -1425 / -2921 -1050 / -2921 Intake: Oral 150 / 780 150 / 780 Output: Urine Amount (Catheter) 1575 / 3700 1200 / 3700 Hernandez/Indwelling 1575 / 3700 1200 / 3700 Other: Weight 135.5 kg Weight Measurement Method Standing Scale Patient Weight 07/29/24 06:59 Weight 135.5 kg Diagnostic Findings Telemetry reviewed: Afib with controlled rates ranging 60's overnight and 80-100 this morning.
--- NOTE | 2024-07-28 12:43 | Hospitalist Progress Note ---
Date of Service July 28, 2024 Assessment & Plan (1) Obesity hypoventilation syndrome: (2) Acute on chronic heart failure with preserved ejection fraction: (3) Acute respiratory failure with hypoxia and hypercarbia: Plan Pt is a 68yoM with PMHx significant for chronic diastolic heart failure, A- fib/history DVT on Coumadin, valvular heart disease, hypertension, hyperlipidemia, chronic respiratory failure secondary to pulmonary hypertension, COPD, OHS on BiPAP, DM2, chronic anemia presenting from home with trouble breathing. History obtained from patient's daughter via telephone as well as patient in the room. Daughter states that he was discharged home from rehab in April and at that time was able to walk around and do things for himself. However she states that once he got home he "planted" himself on the chair and would not get up. States he is not fluid restricting as has been advised. States that he does have home PT services but they have not been getting him up. States he just chooses not to walk. States he does not have portable oxygen but does use oxygen with 2 L at home. States that he started with the trouble breathing about a week ago but it has progressed. States it sounded like there was a rattle in his chest for the last 1 to 2 weeks. Also concerned about wounds in his buttock region. States that they have been present since discharge from acute rehab. States that he has bathed twice since he has been home from rehab. Daughter notes that her typically helps him get cleaned up. Patient is alert and oriented and able to converse even with BiPAP on his face. Acute on chronic respiratory failure with hypoxia and hypercarbia Obesity hypoventilation syndrome On 2 L home oxygen Patient hypoxic on arrival, requiring BiPAP support VBG with pH of 7.30, pCO2 of 77 and bicarb of 38 Chest x-ray concerning for fluid overload and possible pneumonitis CT chest - mosaic groundglass densities in bilateral lungs which could be from small airway inflammation Respiratory BioFire negative Pro-Jorge negative Continue home nebulized bronchodilators Continue with BiPAP, wean as tolerated Pulmonology consulted, appreciate recs Has been on intravenous ceftriaxone and will add doxycycline Prednisone for a 5-day course as per the shirt hemmer Clinically little better and would continue current management Will continue with the intravenous ceftriaxone and doxycycline and discontinue daptomycin Remains stable and a little worse today with increasing shortness of breath Denies any cough, fever and/or chills Will continue current antibiotic- clinically much better and denies any significant symptoms of cough, fever and the white count has been normalized clinically much better and will continue current antibiotic and bronchodilators and oxygen Has been saturating normally on 2 L of nasal cannula oxygen at his baseline Denies any significant chest pain and/or palpitation or any more shortness of breath Clinically much better and the intravenous diuretics has been changed to oral Feels lot better today and will continue current dose of torsemide 40 mg twice daily, spironolactone 12.5 mg daily and Theophylline ER 100 mg twice daily on discharge Awaiting PT evaluation and discharge disposition- he may be going home Metabolic alkalosis Likely secondary to contracted volume Will decrease the dose of Lasix CO2 was improved to 43 from 45 and expected to improve with discontinuation of the intravenous Lasix Will continue BiPAP at nighttime and while sleeping Acute on chronic congestive heart failure Admitted with bilateral leg cellulitis with increased swelling was for the last few days Denies any chest pain and/or palpitation Repeat echo pending Patient received IV Lasix 40 mg in the ED, continue with IV Lasix 40 mg daily Hold home torsemide, will hold home spironolactone with noted hyperkalemia (see below) Will place Barron for accurate measurements, Monitor I's and O's, daily weights Cardiology consulted, appreciate recs Has had negative a little over 2 L of fluid Will increase Lasix 60 mg IV twice daily and monitor kidney function Will continue to monitor in the telemetry unit Remains stable and electrolytes are unremarkable Has had more than 5 L negative balance as of today Will continue current dose of intravenous Lasix for now Has had more than 8 L of negative balance so far and clinically he has been improving, will continue current management Clinically much better and has had 12,580 mL of negative balance Will continue intravenous Lasix 60 mg twice daily Monitor PRP and electrolytes CO2 has been rising up VBG showed pH of 7.53, pCO2 63 and bicarb 53 Likely has metabolic alkalosis secondary to contracted volume Will hold off Lasix dose tonight and monitor PRP Has been changed to oral torsemide Lower extremity cellulitis Lower extremity edema Bilateral lower extremities with warmth and erythema, right greater than left Noted lower extremity swelling, significant Started on IV Rocephin and Daptomycin On daily IV Lasix 40 mg as noted above which will help with her edema Continue to monitor Will check MRSA-Negative If negative will discontinue daptomycin Lower extremity cellulitis has improved a lot Antibiotic course is done Buttock wounds Wound nurse consult On IV Rocephin and daptomycin as noted above Continue to monitor for need for surgical debridement Continue with the wound care Hyperkalemia Potassium 5.7 on admission Hold home potassium supplements Holding home spironolactone as noted above Continue to monitor with a.m. labs Potassium level remains elevated at 5.5 will hold losartan Potassium level has been normalized and will hold oral potassium, spironolactone and losartan for now Potassium level has been normalized Atrial fibrillation EKG noting A-fib with slow ventricular response continue home Coreg patient currently therapeutically anticoagulated with warfarin, INR 2.5 Cardiology consulted as above Follow INR, continue to monitor on telemetry-INR remains therapeutic at 2.5 INR is high at 3.4 today and Coumadin is on hold INR is 2.4 today and will restart Coumadin INR is 2.0 today and will continue Coumadin Continue other home meds as ordered CODE STATUS: Full code per discussion with patient Diet: Heart healthy, DM2 with fluid restriction of 1500 mL DVT prophylaxis: On warfarin, currently therapeutic Dispo: Admit to PCU telemetry Admission and Anticipated Discharge Date Admission Date: July 20, 2024 Subjective 07/21/2024 The patient was seen and examined in telemetry unit He has been complaining of increasing leg swelling redness and also increasing shortness of breath worse for the last day or 2 Has had BiPAP last night and feeling little bit better this morning Denies any chest pain and/or palpitation, no abdominal pain nausea and or vomiting 07/22/2024 The patient was seen and examined in telemetry unit He has been feeling a little better since admission Still complains to have leg pain and leg swelling Denies any chest pain and/or palpitation 07/23/2024 The patient was seen and examined in telemetry unit He has been drowsy today and complains to have shortness of breath Denies any chest pain and/or palpitation Noted to have high CO2 at 41 and now is on BiPAP 07/24/2024 The patient was seen and examined in telemetry unit He has been feeling much better today and is out of bed on a chair Denies any significant shortness of breath and the legs are getting smaller Leg wounds are better too 07/25/2024 The patient was seen and examined in telemetry unit He has been feeling much better and sitting on the chair No significant symptoms at rest Leg swelling has improved and redness of the legs have improved too 07/26/2024 The patient was seen and examined in telemetry unit He has been feeling much better with less shortness of breath at rest Has been minimal symptoms of breathing but complains to have pain at the back His legs are much better 07/27/2024 The patient was seen and examined in telemetry unit He has been feeling a little better today Denies any shortness of breath at rest and has been saturating normally on 2 L His CO2 has improved a little bit from 45-43 Likely discharge tomorrow if accepted to facility 07/28/2024 The patient was seen and examined in telemetry unit He has been stable and feeling a lot better Has had enough diuresis and losing weight Denies any other significant symptoms Awaiting PT evaluation and may need placement Review of Systems Review of Systems: All systems reviewed and are unremarkable except noted below Physical Exam Physical Exam: Sitting on a chair without any significant shortness of breath at rest Constitutional: well developed, well nourished, + ill appearing and + morbidly obese Eyes: PERRL, conjunctivae normal, anicteric sclerae ENMT: external ear and nose normal, oropharynx normal Neck: trachea midline, no thyromegaly Respiratory: + respiratory distress Auscultation: + diminished lung sounds, + crackles and + wheezes Cardiovascular: Rate/Rhythm: + irregularly irregular Heart Sounds: normal S1 and normal S2; no murmur Extremities: + edema ( 1+ bilateral leg edema with redness involving the legs) Gastrointestinal (Abdomen): Inspection/Auscultation: + abdomen distended and normal bowel sounds Percussion/Palpation: abdomen soft; abdomen nontender Neurologic: normal touch/pain/proprioception and moves all extremities; no focal motor deficits Lymphatic: no cervical or axillary lymphadenopathy Results & Data Results & Data Vital Signs (Past 12 Hours) Vital Signs Temp Pulse Pulse Pulse Resp BP Pulse Ox 07/28/24 10:54 36.8 C 82 19 97/52 L 97 07/28/24 07:06 87 25 H 94 07/28/24 07:05 36.8 C 70 19 102/62 95 07/28/24 07:00 53 L 07/28/24 04:12 36.4 C L 64 20 115/64 97 07/28/24 03:29 65 19 97 O2 Del Method O2 Flow Rate FiO2 07/28/24 10:54 Nasal Cannula 2.5 07/28/24 07:06 Nasal Cannula 3 07/28/24 07:05 BiPAP 07/28/24 07:00 07/28/24 04:12 BiPAP 07/28/24 03:29 35 Laboratory Results Short CBC 07/28/24 Range/Units 05:20 WBC 9.54 (4.8-10.8) K/ul Hgb 10.4 L (14.0-18.0) g/dl Hct 32.7 L (42.0-52.0) % Plt Count 275 (130-400) K/uL BMP 07/28/24 05:20 Sodium 140 Potassium 3.8 Chloride 90 L Carbon Dioxide 42 H* BUN 49 H Creatinine 0.91 Glucose 83 Calcium 9.2 Medications Administered Current Inpatient Medications Acetaminophen (Acetaminophen 325 Mg Tab) 650 mg PO QID PRN PRN Reason: pain/fever Stop: 08/22/24 22:59 Last Admin: 07/27/24 21:25 Dose: 650 mg Albuterol (Albuterol Hfa 8 Gm Inhaler) 2 puffs INH Q6H PRN PRN Reason: Shortness Of Breath Or Wheezing Stop: 08/19/24 18:42 Albuterol (Albut/Ipratrop 3mg/0.5mg Neb 3 Ml Vial) 3 ml NEB Q4R PRN; Protocol PRN Reason: sob or wheezing Stop: 08/20/24 09:59 Budesonide (Budesonide 0.5 Mg/2 Ml Vial (Pulmicort)) 0.5 mg NEB BIDR OMAYRA Stop: 08/20/24 18:59 Last Admin: 07/28/24 07:05 Dose: 0.5 mg Dextrose (Dextrose 50% 50 Ml Syringe) 25 - 50 ml IV UD PRN; Protocol PRN Reason: Hypoglycemia Protocol Stop: 08/19/24 18:42 Empagliflozin (Empagliflozin 10 Mg Tab) 10 mg PO QAM OMAYRA Stop: 08/20/24 08:59 Last Admin: 07/28/24 08:30 Dose: 10 mg Enalapril Maleate (Enalapril Maleate 5 Mg Tab) 2.5 mg PO DAILY OMA[facility] Stop: 08/26/24 08:59 Last Admin: 07/28/24 08:30 Dose: 2.5 mg Fluticasone Propionate (Fluticasone Propionate Na Spr 16 Gm Btl) 2 sprays NA DAILY OMA[facility] Stop: 08/20/24 08:59 Last Admin: 07/28/24 08:31 Dose: 2 sprays Formoterol Fumarate (Formoterol 20 Mcg/2 Ml Vial) 20 mcg NEB BIDR OMAYRA Stop: 08/20/24 09:59 Last Admin: 07/28/24 07:05 Dose: 20 mcg Glucagon (Glucagon For Inj 1 Mg Vial) 1 mg SQ UD PRN; Protocol PRN Reason: Hypoglycemia Protocol Stop: 08/19/24 18:42 Glucose (Glucose 40% Gel 15 Gm Tube) 15 - 30 gm PO UD PRN; Protocol PRN Reason: Hypoglycemia Protocol Stop: 08/19/24 18:42 Glucose (Glucose 10 Tab/Tube) 4 - 8 tab PO UD PRN; Protocol PRN Reason: Hypoglycemia Treatment Stop: 08/19/24 18:42 Guaifenesin (Guaifenesin 600 Mg Tabcr) 1,200 mg PO Q12 OMA[facility] Stop: 08/20/24 20:59 Last Admin: 07/28/24 08:29 Dose: 1,200 mg Insulin Aspart (Insulin Aspart Per Unit Charge) 0 units SC ACHS OMA[facility] Stop: 08/19/24 20:59 Last Admin: 07/28/24 12:27 Dose: Not Given Miscellaneous (Carbohydrates For Hypoglycemia ) 15 - 30 gm PO UD PRN PRN Reason: Hypoglycemia Protocol Stop: 08/19/24 18:42 Montelukast Sodium (Montelukast Sodium 10 Mg Tablet) 10 mg PO QAM OMAYRA Stop: 08/20/24 08:59 Last Admin: 07/28/24 08:30 Dose: 10 mg Pantoprazole Sodium (Pantoprazole 40 Mg Tab) 40 mg PO DAILY OMA[facility] Stop: 08/20/24 08:59 Last Admin: 07/28/24 08:30 Dose: 40 mg Sodium Chloride (Sodium Chlor 7% 4 Ml Neb) 4 ml NEB BIDR OMAYRA Stop: 08/20/24 18:59 Last Admin: 07/28/24 07:32 Dose: 4 ml Spironolactone (Spironolactone 12.5 Mg Tab) 12.5 mg PO DAILY OMA[facility]RA Stop: 08/24/24 10:59 Last Admin: 07/28/24 08:30 Dose: 12.5 mg Theophylline (Theophylline 400 Mg Extended Rel Tab) 100 mg PO BID [facility] Stop: 08/22/24 11:44 Last Admin: 07/28/24 08:29 Dose: 100 mg Torsemide (Torsemide 20 Mg Tab) 40 mg PO BID17 [facility] Stop: 08/26/24 16:59 Last Admin: 07/28/24 08:31 Dose: 40 mg Warfarin Sodium (Warfarin Sod 10 Mg Tab) 10 mg PO [id number]@1600 [facility] Stop: 08/19/24 18:59 Last Admin: 07/27/24 17:19 Dose: 10 mg Warfarin Sodium (Warfarin Sod 5 Mg Tab) 15 mg PO [id number]@1600 [facility] Stop: 08/20/24 15:59 Last Admin: 07/26/24 16:12 Dose: 15 mg
[2024-07-28] MEDS: DICLOFENAC SOD 1% GEL 100 GM TUBE EXT SCH (20:15)
[2024-07-29 06:29] LABS: BUN Creatinine Ratio 54.1 (10-20); Calcium 9.1 mg/dl (8.6-10.3); Creatinine Clr Calc Pharmacy 86.4 ml/min; Est GFR (African American) 80.4 ml/min; Est GFR (Non-African American) 69.4 ml/min; Potassium 3.8 mmol/L (3.5-5.1)
[2024-07-29 11:26] VITALS: BP 101/48; TEMP 97.5; O2SAT 97
--- NOTE | 2024-07-29 12:08 | Discharge Summary ---
Discharge Summary Date of Service July 29, 2024 Principal Dx & Hospital Course #1 = Principal Diagnosis (1) Acute on chronic heart failure with preserved ejection fraction: (2) Bilateral cellulitis of lower leg: (3) Obesity hypoventilation syndrome: (4) Acute respiratory failure with hypoxia and hypercarbia: (5) COPD (chronic obstructive pulmonary disease): (6) Chronic a-fib: Plan Patient presented to the emergency room with increasing shortness of breath and swelling over the past multiple weeks. Patient is on chronic oxygen at home. And was just recently in rehab. In the emergency room was noted to be in decompensated heart failure with a respiratory failure as well as concern for lower extremity cellulitis. Patient was admitted to the hospital. He was aggressively diuresed. He was placed on broad-spectrum antibiotics for his cellulitis. Pulmonary and cardiology consultations were obtained.Echocardiogram was updated. He was followed by wound care for his lower extremity cellulitis. Patient responded to diuresis. Cellulitis of the legs improved with antibiotic treatment and he completed a course of antibiotics here in the hospital. He is eventually transition to oral diuretics with his home dose being increased. His electrolytes were replaced as needed along the way. He was evaluated by therapies. Patient chose to return home with home health care. On the day of discharge his vital signs are stable. He was on his usual oxygen requirements. Lower extremity cellulitis is significantly improved and can continue his care and recovery at home with outpatient follow-up with his various specialists and monitoring of his INR. Notes For Next Care Provider Medication Changes From Visit Torsemide increased Admission HPI Per Admitting Provider Pt is a 68yoM with PMHx significant for chronic diastolic heart failure, A- fib/history DVT on Coumadin, valvular heart disease, hypertension, hyperlipidemia, chronic respiratory failure secondary to pulmonary hypertension, COPD, OHS on BiPAP, DM2, chronic anemia presenting from home with trouble breathing. History obtained from patient's daughter via telephone as well as patient in the room. Daughter states that pt was discharged home from rehab in April after being hospitalized for the same and at that time was able to walk around and do things for himself. However she states that once he got home he "planted" himself on the chair and would not get up. States he is not fluid restricting as has been advised. States that he does have home PT services but they have not been getting him up. States he just chooses not to walk. States he does not have portable oxygen but does use oxygen with 2 L at home. States that he started with the trouble breathing about a week ago but it has progressed. States it sounded like there was a rattle in his chest for the last 1 to 2 weeks. She is also concerned about wounds in his buttock region. States that they have been present since discharge from acute rehab. States that he has bathed twice since he has been home from rehab. Daughter notes that her typically helps him get cleaned up. daughter states that the lower extremity redness was concerning and she noticed it first last night. Believes that it has rapidly progressed and is concerned that he might have an infection. Patient is alert and oriented and able to converse even with BiPAP on his face. Admission Exam Per Admitting Provider See H&P Discharge Exam Constitutional: Alert, morbidly obese HEENT: Mucous membranes moist. Lungs: Decreased breath sounds, prolonged expiratory phase, no wheezes CV: S1-S2, irregular Abdomen: Soft, nontender, nondistended, obese Extremities: Chronic venous stasis dermatitis, cellulitis resolved, healing wounds Neuro: No focal deficits Psych: Cooperative, normal mood Updated Medication List Medication Instructions Recorded Confirmed Type empagliflozin 10 mg tablet 10 mg PO QAM 06/10/23 07/20/24 History enalapril maleate 10 mg tablet 10 mg PO DAILY 06/10/23 07/20/24 History fluticasone fur. 100 mcg-umeclid 1 inh inhalation DAILY 06/10/23 07/20/24 History 62.5 mcg-vilant 25 mcg inhalat.powder (Trelegy Ellipta) [id number] 300 mcg-K 60 1 tab PO DAILY 06/10/23 07/20/24 History mcg-lycop 600 mcg-lutein 300 mcg tablet (Centrum Silver Men) pantoprazole 40 mg tablet,delayed 40 mg PO DAILY 06/10/23 07/20/24 History release potassium chloride 10 mEq 10 meq PO Q OTHER DAY 06/10/23 07/20/24 History tablet,extended release warfarin 10 mg tablet See Rx Instructions .Route .COMPLEX 06/10/23 07/20/24 History carvedilol 3.125 mg tablet 3.125 mg PO BIDM #60 tabs 06/17/23 07/20/24 Rx albuterol sulfate 90 mcg/actuation 2 puff inhalation Q6H PRN 05/12/24 07/20/24 History aerosol inhaler Shortness Of Breath Or Wheezing atorvastatin 80 mg tablet 80 mg PO QAM 05/12/24 07/20/24 History fluticasone propionate 50 2 spray intranasal DAILY 05/12/24 07/20/24 History mcg/actuation nasal spray,suspension ketoconazole 2 % topical cream 1 applic topical DIRECTED PRN 05/12/24 07/20/24 History DRY SKIN PATCHES prednisone 20 mg tablet 40 mg PO DAILY PRN COPD RESCUE KIT 05/12/24 07/20/24 History torsemide 20 mg tablet 40 mg PO QAM 05/12/24 07/20/24 History ipratropium 0.5 mg-albuterol 3 mg 3 ml inhalation Q6H Shortness Of 05/19/24 07/20/24 Rx (2.5 mg base)/3 mL nebulization Breath #0 mL soln sodium chloride 7 % for 4 ml NEB BIDR #120 mL 05/19/24 07/20/24 Rx nebulization spironolactone 25 mg tablet 12.5 mg (1/2 x 25 mg) PO DAILY #30 05/19/24 07/20/24 Rx tabs doxycycline hyclate 100 mg capsule 0 mg PO BID 07/20/24 07/20/24 History montelukast 10 mg tablet 10 mg PO QAM 07/20/24 07/20/24 History nystatin 100,000 unit/gram topical 1 applic topical BID affected area 07/20/24 07/20/24 History cream diclofenac sodium 1 % topical gel 4 g EXT BID #100 grams 07/29/24 Rx (Voltaren Arthritis Pain) enalapril maleate 5 mg tablet 2.5 mg (1/2 x 5 mg) PO DAILY #30 07/29/24 Rx tabs guaifenesin 600 mg tablet, 1,200 mg (2 x 600 mg) PO Q12 #60 07/29/24 Rx extended release 12 hr (Mucinex) tabs theophylline 400 mg 100 mg (1/4 x 400 mg) PO BID #60 07/29/24 Rx tablet,extended release 24 hr tabs torsemide 20 mg tablet 40 mg (2 x 20 mg) PO BID17 30 days 07/29/24 Rx #60 tabs warfarin 10 mg tablet 10 mg PO MoWeFr@1600 #30 tabs 07/29/24 Rx warfarin 5 mg tablet 15 mg (3 x 5 mg) PO [id number]@1600 07/29/24 Rx #30 tabs Hospital Stay Data Consultations 07/20/24 15:23 ED Decision to Admit Stat 07/20/24 16:30 Consult Cardiology Routine 07/20/24 16:31 Consult Pulmonology Routine Diagnostic Imagining Performed 07/20/24 15:55 CT chest diagnostic wo con Urgent Reviewed imaging, laboratory and diagnostic studies. Pertinent findings as below. Echocardiogram showed ejection fraction 6065%, dilated right ventricle, pulmonary hypertension with pulmonary pressure of 57 mmHg I refer reader to full report for details Sodium 137, bicarb 39 Creatinine 1.09 Magnesium 2.0 INR 2.0 Pending Results Patient Have Any Pending Studies at Discharge: No Discharge Instructions Given to Patient (Per Discharging Provider) Continue usual home oxygen Get PT/INR per your usual process on Home Health Attestation I certify that this patient is under my care and that I, or a physicians reproductive healthcare assistant working with me, had a face to-face encounter that meets the home health [id number] encounter requirements with this patient. The encounter with the patient was in whole, or in part, for the following medical condition, which is the primary reason for home health care (list medical condition): CHF I certify that, based on my findings, the following services are medically necessary home health services: My clinical findings support the need for the above services because: Caregiver Instruct Med Mgmt, Safety, Disease Process, Signs to Report Daily Weights Home Safety Assessment Hydration / Nutrition Medication Compliance and Monitoring Effective of New Medications OT Assess ADL Status and Restore Function w ADLs PT Assessment for Endurance / Balance / Strength PT Eval for Safety, Gait Training, Assistive Devices PT Gait and Balance Training, Strengthening and Safety Safety Skilled Nsg Assessment Skilled Nsg Assess and Instruct on Diet Skilled Nsg Instruction New Medications Skilled Nsg Assess Pt Illness, Disease and Sx Monitoring S/S to Report to Provider Teach on Disease Management and Interventions Vital Signs Further, I certify that my clinical findings support that this patient is homebound (i.e. absences from home require considerable and taxing effort and are for medical reasons or anabaptist services or infrequently or of short duration when for other reasons) because: Supportive Aid - Wheelchair Transportation Assistance/Unable to Leave Home Unassisted Certification for Home Health Services: Based on the above findings, I certify that this patient is confined to the home and needs intermittent intermediate care, physical therapy and/or speech therapy or continues to need occupational therapy. The patient is under my care, and I have initiated the establishment of the plan of care. This patient will be followed by a physician who will periodically review the plan of care. Total Time Total Time Spent Total Time Spent (In Minutes): 35
[2024-07-29] MEDS: ALBUT/IPRATROP 3MG/0.5MG NEB 3 ML VIAL NEB PRN (12:12)
[2024-07-29 12:14] VITALS: RESP 16
[2024-07-29 13:20] VITALS: PULSE 69
== END 2024-07-29 16:35 | disposition home health service (06) | DRG 291 ==
LOC: ED 14:18 → 2E 15:52 → SUATTDRO 15:52 → 2E 18:19

== ENCOUNTER 2024-09-13 13:30 | Inpatient (IN) ==
--- OUTSIDE RECORDS SUMMARY | 2024-09-13 13:36 | External Medical Summary | Summary of Care ---
Author Name Unknown Organization [facility] Address [address] [facility] [address] Phone [phone] Care Team Providers Care Fortune Teller Name Role Phone Charley Crane MD Primary Care Provider [phone] Reason for Visit * Reason Comments Dosage Adjustment Via Phone (anticoag Cl inic) Encounter Details Date Type Department Care Team (Late st Contact Info) Description 09/08/2024 6:00 AM EST Anticoagulation Centralized Clinical Pharmacy Services, Oscar Peace [address] [place] [address] [place] [address] [place] [address] jail current use of anticoagulant therapy*; Longstanding persistent atrial fibrillation (HCC); History of deep venous thrombosis (DVT) of distal vein of left lower extremity Allergies Active Allergy Reactions Criticality Noted Date Comments Cephalexin Other (Please comment) 08/03/2024 Taking it effect his warfarin documented as of this encounter (statuses as of 09/08/2024) Medications Centrum Silver 50+Men Oral Tablet Take 1 Tablet by mouth daily. Active oxygen IN GAS Use 3 L/min(Oxygen) as directed continuous. Uses 2.5 LPM at night with BIPAP and as needed during the day Active BiPAP every night at bedtime. Active Empagliflozin 10 MG Oral Tablet (Jardiance) [...] daily 180 Tablet 3 01/20/20 24 Active Additional Information Patient taking differently: 40 mg Oral BID (.AM/PM), (No instructions reported), Reported on 07/31/2024 Albuterol Sulfate HFA 108 (90 Base) MCG/ACT Inhalation Aerosol Solution Inhale 2 Puffs by mouth every 6 hours as needed for Shortness of Breath or Wheezing. 54 g 1 01/20/20 24 Active Fluticasone Propionate 50 MCG/ACT Nasal [...] FOR SHORTNESS OF BREATH, Reported on 06/03/2024 Pantoprazole Sodium 40 MG Oral Tablet Delayed Release (Protonix) TAKE 1 TABLET BY MOUTH EVERY MORNING 90 Tablet 1 05/25/20 24 Active Trelegy Ellipta 100-62.5-25 MCG/ACT Aerosol Powder Breath Activated (Fluticasone-Umec lidinium-Vilanter ol) Inhale 1 Puff by mouth in the morning. 180 Blister Dosing Unit 3 08/05/20 24 Active Montelukast Sodium 10 MG Oral Tablet (Singulair) Take 1 Tablet by mouth in the morning. 90 Tablet 3 06/18/20 24 Active Compressor Nebulizer Inhale via nebulizer. Use as directed. 1 Each 1 07/20/20 24 Active predniSONE 20 MG Oral Tablet (Deltasone)Indica tions:COPD, group D, by GOLD 2017 classification ([facility]) Take 2 Tablets by mouth in the morning. Rescue kit. Use only as instructed. 10 Tablet 07/20/20 24 Active guaiFENesin ER 1200 MG Oral Tablet Extended Release 12 Hour Take 1,200 mg by mouth in the morning and 1,200 mg before bedtime. Active Theophylline ER 100 MG Oral Tablet Extended Release 12 Hour (Theodur) Take 1 Tablet by mouth in the morning and 1 Tablet before bedtime. Active Diclofenac Sodium 1 % External Gel (Voltaren) Apply 1 Application topically to affected area in the morning and 1 Application before bedtime. Apply to knees and shoulders. 100 g 1 08/10/20 24 Active Azithromycin 250 MG Oral Tablet (Zithromax Z-Juan) Take two tablets by mouth on first day, then 1 tablet daily until gone 6 Tablet 08/26/20 24 Active Warfarin Sodium 10 MG Oral Tablet (Coumadin) Take 1 to 1.5 tablets by mouth every day in the evening or as directed by the anticoagulation clinic. 100 Tablet 3 08/26/20 24 Active Enalapril Maleate 2.5 MG Oral Tablet (Vasotec)Indicati ons:Hypertension goal BP (blood pressure) < 130/80 Take 1 Tablet by mouth in the morning. 90 Tablet 2 09/04/20 24 Active documented as of this encounter (statuses as of 09/08/2024) Active Problems Problem Noted Date Diagnosed Date Stage 3 chronic kidney disease 06/15/2024 Hypertensive heart disease w ith chronic diastolic congestive heart failure 06/15/2024 Assessment & Plan (07/01/2024 9:44 AM EDT): "RED FLAG" HF Symptoms: Leg Swelling Abdominal [...] 0 2023 Longstanding persistent atrial fibrillation 06/29 Assessment & Plan (07/01/2024 9:45 AM EDT): Rate controlled Continue coumadin Hypertension goal BP (blood pressure) < 130/80 0 07/17/2023 Dyslipidemia, goal LDL below 70 07/17/2023 Atherosclerosis of [place] co 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 pectoris 07/05/2023 BiPAP (biphasic positive airway pressure) depend ence 07/05/2023 PHT (pulmonary hypertension) 07/04/2023 Tobacco abuse, in remission 07/04/2023 Chronic respiratory failure with hypoxia and hyp ercapnia 07/04/2023 Assessment & Plan (07/01/2024 9:37 AM EDT): Continue supplemental o2 Monitors with pulse ox Obesity hypoventilation syndrome 07/04/2023 Family history of lung cancer 07/04/2023 Chronic heart failure with preserved ejection fr action 07/04/2023 Assessment & Plan (10/25/2023 10:51 AM EST): "RED FLAG" HF Symptoms: Leg Swelling (Examples: [...] A1c goal of less than 7.0% 06/08/2023 Assessment & Plan (07/01/2024 10:06 AM EDT): "RED FLAG" Diabetic symptoms: Excessive Thirst, Rapid [...] as of this encounter (statuses as of 09/08/2024) Resolved Problems Problem Noted Date Diagnosed Date Resolved Date Food insecurity 10/07/2023 03/11/2024 Overview: Per [facility] Protocol Anticoagulation management encounter 2023 09/09/2023 COPD, group B, by GOLD 2017 classification 07/08/2023 11/07/2023 Overview: Per COPD GOLD Classification Assessment & Plan (10/14/2023 11:39 AM EST): "RED FLAG" COPD symptoms: Cough ("I get a different kind of cough than what I' have every day") Change in mucous ("My normal mucous is clear but this is yellow and tastes terrible") Wheezing ("You can hear the whistling across the room") Medication Regimen All Classes - JULIA Class D - Inhaled Gjlaxsrzdpchry-VFPM-LOTU Combination Inhaler (Trellegy) Remote Patient Monitoring Vendor: Current Health Device(s): Continuous Monitoring Device Traditional Scale Self-Management plan High frequency nebulizer treatments every 4-6 hours around the clock Exacerbation plan Chest Xray Additional Comments: On continuous o2 2-3lpm Bipap at night Body mass index (BMI) of 40. 0 to 44.9 in adult 07/08/2023 07/09/2024 Overview: Per Obesity protocol Atherosclerosis of [place] co 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 pectoris 07/05/2023 08/29/2023 Dyspnea 07/04/2023 08/13/2023 Occupational exposure in workplace 07/04/2023 02/14/2024 Chronic congestive heart failure 06/08/2023 07/05/2023 COPD, severe 06/08/2023 07/11/2023 Overview: Per COPD GOLD Classification Chronic hypoxemic respiratory failure 06/08/2023 07/04/2023 Chronic respiratory failure with hypoxia, on home oxygen therapy 06/08/2023 08/29/2023 Diabetes mellitus without complication 06/08/2023 08/29/2023 documented as of this encounter (statuses as of 09/08/2024) Immunizations Name Administration Dates Next Due Pneumococcal [...] Assigned at Male 02/10/2024 12:57 PM EDT Legal Sex Male 7:03 AM EST Gender Identity Male 02/10/2024 12:57 PM EDT Sexual Orientation Straight 02/10/2024 12 :57 PM EDT Occupation Industry Job Start Date Job End Date Retired Not on file Not on file Not on file documented as of this encounter Progress Notes * Abraham Love CPhT - 09/08/2024 12:34 PM EST Contacts Contact Date/Time Type Contact Phone/Fax 09/08/2024 11:17 AM EST Phone (Outgoing) Bala Coronado Jr. (Self) [phone] (M) Left Message 09/08/2024 12:33 PM EST Phone (Outgoing) Bala Coronado Jr. (Self) [phone] (M) Spoke to Patient Subjective Patient Findings Negatives: Signs/symptoms of thrombosis, [...] date communicated as noted by Pharmacist: Yes Abraham Love CPhT 09/08/2024, 12:34 PM * Jennifer Lemus CPhT - 09/08/2024 11:21 AM EST Contacts Contact Date/Time Type Contact Phone/Fax 09/08/2024 11:17 AM EST Phone (Outgoing) Bala Coronado Jr. (Self) [phone] (M) Left Message Subjective Advised patient to contact Anticoagulation Clinic if any unusual bruising or bleeding, recent illness, changes in medication, or questions/concerns. PT/INR results, Coumadin dose instructions, and next PT/INR date communicated as noted by Pharmacist: Yes JENNIFER LEMUS CPhT 09/08/2024, 11:21 AM * Isabel Li [facility] - 09/08/2024 8:48 AM EST Coumadin Clinic (region specific) Objective Current Warfarin Dose As of 09/08/2024 Warfarin maintenance plan: 10 mg (10 mg x 1) every Mon, Wed, Fri; 15 mg (10 mg x 1.5) all other days INR Result As of 09/08/2024 INR goal: 2.0-3.0 INR used for dosin.4 (09/07/2024) Assessment & Plan Warfarin Plan As of 09/08/2024 Full warfarin instructions: 10 mg every Mon, Wed, Fri; 15 mg all other days No change documented: Isabel Li RPh Next INR check: 09/28/2024 Repeat PT/INR in 3 week(s) Weekly dose: not changed Additional Dosing Information: Description [facility] Pill packs from [facility] - Warfarin NOT included Tech to contact patient with dose instructions as noted. Isabel Li RPh 09/08/2024, 8:48 AM documented in this encounter Plan of Treatment Upcoming Encounters Date Type Department Care Team (Late st Contact Info) Description 09/10/2024 10:00 AM EST [facility] Visit [facility] [address] [facility] [place] [address] Michelle Kim, RN [address] [place] [address] 09/28/2024 7:05 AM EST Laboratory Lab Mobile Phlebotomy [facility] [address] [place] [address] [facility] Mobile Home Draw [address] [place] [address] 09/29/2024 6:00 AM EST Anticoagulation Centralized Clinical Pharmacy Services, Oscar Peace [address] [place] [address] [place] [address] [facility], [address] [place] [address] 10/06/2024 2:40 PM EST Office Visit [facility] [place] [facility] [address] [place] [address] Charley Crane MD [address] [place] [address] Health Maintenance Due Date Last Done Comments Alpha-1 Antitrypsin 1974 CKD PHOS USE SMARTSET 80412 1974 DTap/Tdap Vaccines (1 - Tdap) 1975 Cologuard 2001 Colonoscopy 2001 Colorectal Cancer Screening 2001 Fecal Occult Blood Test 2001 Sigmoidoscopy 2001 AAA Screening 2021 COVID-19 Vaccine ( season) 2024 Influenza Vaccine (FLU shot) (#1) 2024 07/05/2023, 07/05/2023 HbA1c 12/16/2024 06/15/2024, 01/26, 06/21/2023 Adult Wellness Visit 02/09/2025 02/10/2024 Albumin/Creatinine Ratio 02/09/2025 02/10/2024 Depression Screening 02/09/2025 02/10/2024 GFR 03/07/2025 09/07/2024, 05/28, 05/29/2024, Additional history exists Diabetic Eye Exam 04/28/2025 04/28/2024, , 09/09/2023 Diabetic Foot Exam 06/15/2025 06/15/2024, 06/21/2023 O2 ASSESSMENT COMPLETED IN PAST YEAR FOR COPD 08/14/2025 08/14/2024 CKD HGB USE SMARTSET 21238 09/07/202509/07, 09/07/2024, 06/15/2024, Additional history exists Pneumococcal Vaccine: 65+ Years [...] this encounter Visit Diagnoses Diagnosis COPD, group B, by GOLD 2017 classification (HCC)- Primary Chronic respiratory failure with hypoxia and hypercapnia (HCC) Chronic heart failure with preserved ejection fraction (HCC) Chronic pain of both knees COPD exacerbation (HCC)- Primary Obstructive chronic bronchitis with exacerbation Chronic respiratory failure with hypoxia and hypercapnia (HCC) Hypertensive heart disease with chronic diastolic congestive heart failure (HCC) Longstanding persistent atrial fibrillation (HCC) Type 2 diabetes mellitus with hemoglobin A1c goal of less than 7.0% (HCC) Advanced care planning/counseling discussion Other specified counseling jail current use of anticoagulant therapy- Primary Longstanding persistent atrial fibrillation (HCC) History of deep venous thrombosis (DVT) of distal vein of left lower extremity documented in this encounter Care Teams Fortune Teller Relationship Specialty Start Date End Date Charley Crane MD [address] [place] [address] PCP - General Internal Medicine 06/04/23 documented as of this encounter
--- OUTSIDE RECORDS SUMMARY | 2024-09-13 13:36 | External Medical Summary | Summary of Care ---
Author Name Unknown Organization [facility] Address [address] [place] [address] Phone [phone] Care Team Providers Care Fur Sorter Name Role Phone Charley Crane MD Primary Care Provider [phone] Encounter Details Date Type Department Care Team (Late st Contact Info) Description 09/10/2024 10:00 AM EST [facility] [address] [place] [address] Michelle Kim, RN [address] [place] [address] Allergies Active Allergy Reactions Criticality Noted Date Comments Cephalexin Other (Please comment) 08/03/2024 Taking it effect his warfarin documented as of this encounter (statuses as of 09/10/2024) Medications Centrum Silver 50+Men Oral Tablet Take 1 Tablet by mouth daily. Active oxygen IN GAS Use 3 L/min(Oxygen) as directed continuous. Uses 2.5 LPM at night with BIPAP and as needed during the day Active BiPAP every night at bedtime. Active Torsemide 20 MG Oral Tablet (Demadex) Take 2 tablets by mouth once daily 180 Tablet 3 01/20/20 24 Active Additional Information Patient taking differently: 40 mg Oral BID (.AM/PM), (No instructions reported), Reported on 09/10/2024 Albuterol Sulfate HFA 108 (90 Base) MCG/ACT [...] NEEDED FOR SHORTNESS OF BREATH, Reported on 09/10/2024 Pantoprazole Sodium 40 MG Oral Tablet Delayed Release (Protonix) TAKE 1 TABLET BY MOUTH EVERY MORNING 90 Tablet 1 05/25/20 24 Active Trelegy Ellipta 100-62.5-25 MCG/ACT Aerosol Powder Breath Activated (Fluticasone-Umec lidinium-Vilanter ol) Inhale 1 Puff by mouth in the morning. 180 Blister Dosing Unit 3 06/01/20 24 Active Montelukast Sodium 10 MG Oral Tablet (Singulair) Take 1 Tablet by mouth in the morning. 90 Tablet 3 06/18/20 24 Active Compressor Nebulizer Inhale via nebulizer. Use as directed. 1 Each 1 07/20/20 24 Active guaiFENesin ER 1200 MG [...] morning. 90 Tablet 2 09/04/20 24 Active predniSONE 20 MG Oral Tablet (Deltasone)Indica tions:COPD, group D, by GOLD 2017 classification ([facility]) Take 2 Tablets by mouth in the morning. For 5 days. Rescue kit. Use only as instructed. 10 Tablet 09/08/20 24 Active Spironolactone 25 MG Oral Tablet (Aldactone) Take 1 Tablet by mouth in the morning. 90 Tablet 3 09/10/20 24 Active Jardiance 10 MG Oral Tablet (Empagliflozin) TAKE 1 TABLET BY MOUTH EVERY MORNING 90 Tablet 1 09/10/20 24 Active documented as of this encounter (statuses as of 09/10/2024) Active Problems Problem Noted Date Diagnosed Date [...] classification 11/04 Overview: Per COPD GOLD Classification half-way current use of anticoagulant therapy 0 2023 Longstanding persistent atrial fibrillation 06/29 Assessment & Plan (07/01/2024 9:45 AM EDT): Rate controlled Continue coumadin Hypertension goal BP (blood pressure) < 130/80 0 07/17/2023 Dyslipidemia, goal LDL below 70 07/17/2023 Atherosclerosis of [place] co 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 pectoris 07/05/2023 [...] as of this encounter (statuses as of 09/10/2024) Resolved Problems Problem Noted Date Diagnosed Date [...] Classes - JULIA Class D - Inhaled Fwybmyveluhlnu-RPFN-AQXZ Combination Inhaler (Ashy) Remote Patient Monitoring Vendor: Current Health Device(s): Continuous Monitoring Device Traditional Scale Self-Management plan High frequency nebulizer treatments every 4-6 hours around the clock Exacerbation plan Chest Xray Additional Comments: On continuous o2 2-3lpm Bipap at night Body mass index (BMI) of 40. 0 to 44.9 in adult 07/08/2023 07/09/2024 Overview: Per Obesity protocol Atherosclerosis of [place] co 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 pectoris 07/05/2023 08/29/2023 Dyspnea 07/04/2023 08/13/2023 Occupational exposure in workplace 07/04/2023 02/14/2024 Chronic congestive heart failure 06/08/2023 07/05/2023 COPD, severe 06/08/2023 07/11/2023 Overview: Per COPD GOLD Classification Chronic hypoxemic respiratory failure 06/08/2023 07/04/2023 Chronic respiratory failure with hypoxia, on home oxygen therapy 06/08/2023 08/29/2023 Diabetes mellitus without complication 06/08/2023 08/29/2023 documented as of this encounter (statuses as of 09/10/2024) Immunizations Name Administration Dates Next Due Pneumococcal [...] Sign Reading Time Taken Comments Blood Pressure 130/68 09/10/2024 10:14 AM EST Pulse 68 09/10/2024 10:14 AM EST Temperature 37.1 C (98.7 F) 09/10/2024 1 0:14 AM EST Respiratory Rate 20 09/10/2024 10:1 4 AM EST Oxygen Saturation 94% 09/10/2024 10: 14 AM EST o2 on at 4 l/min via nc Inhaled Oxygen Concentration - - Weight - - Height - - Body Mass Index - - documented in this encounter Progress Notes * Michelle Kim RN - 09/10/2024 10:05 AM EST Current Concerns: Pt seen for return RNCM visit Getting HH services through [facility] for SN, home health aide- pt has been discharged from PT Pt reports he is going to start using portable oxygen tanks instead of the inogen - states he is not getting continuous oxygen from inogen and oxygen levels drop when he is using it He feels he Using calazime zinc oxide cream to buttocks- pt concerned that it is not working very well He is ordering Calmoseptine from [facility] to try PROPERTY ECONOMIST present for visit and already applied zinc oxide cream so unable to visualize buttocks at this time Reviewed meds - missing carvedilol and needs refills on Flonase and z-pack Called pharmacy and they have several meds that were just refilled, including carvedilol They need another script for flonase and z-pack for rescue kit TE sent to PCP Physical Exam: Physical Exam Constitutional: General: He is not in acute distress. Cardiovascular: Rate and Rhythm: Normal rate and regular rhythm. Pulses: Normal pulses. Heart sounds: Normal heart sounds. Pulmonary: Breath sounds: Normal breath sounds. Abdominal: General: Bowel sounds are normal. Palpations: Abdomen is soft. Musculoskeletal: Right lower leg: Edema (+1) present. Left lower leg: Edema (+1) present. Skin: General: Skin is warm and dry. Neurological: Mental Status: He is alert and oriented to person, place, and time. Review of Systems: Review of Systems Constitutional: Negative. HENT: Negative. Eyes: Negative. Respiratory: Positive for cough (chronic, white to light yellow mucus) and shortness of breath (BERRY- at baseline). Cardiovascular: Positive for leg swelling. Gastrointestinal: Negative. Genitourinary: Negative. Musculoskeletal: Positive for arthralgias and gait problem. Skin: Positive for wound. Psychiatric/Behavioral: Negative. Care Plan Goal Progress: Patient will maintain optimal mobility & activity level. (Not Progressing) Start: 07/31/24 Expected End: 11/26/24 Patient will achieve & maintain optimal fluid balance. (Progressing) Start: 07/31/24 Expected End: 11/26/24 Patient will have improved cardiac output. (Progressing) Start: 07/31/24 Expected End: 11/26/24 GS - Patient/caregiver will verbalize an understanding of diagnosis, treatment and self management of chronic obstructive pulmonary disease (COPD) (Progressing) Start: 07/09/24 Expected End: 01/25/25 Patient will achieve & maintain effective breathing pattern. (Progressing) Start: 07/31/24 Expected End: 11/26/24 Orders Placed: No orders of the defined types were placed in this encounter. Medications Given: Care Gaps: Care Gaps Care gaps closed this contact:: Education;Medications;Plan of Care (POC) (09/10/24 1252) Type of education: Clinical/disease (09/10/24 1252) Type of medication care gap: Medication adherence;Medication omittance (09/10/24 1252) Type of plan of care (POC) care gap: Adjustment of plan of care (POC) and/or Integrated Care Plan (ICP);Education and review of exacerbation plan (09/10/24 125) documented in this encounter Plan of Treatment Upcoming Encounters Date Type Department Care Team (Late st Contact Info) Description 09/28/2024 7:05 AM EST Laboratory Lab Mobile Phlebotomy [facility] [address] [place] [address] [facility], [facility] Mobile Home Draw [address] [place] [address] 09/29/2024 6:00 AM EST Anticoagulation Centralized Clinical Pharmacy Services, Oscar Peace [address] [place] [address] [place] [address] [place] [address] 10/01/2024 4:00 PM EST [facility] [address] [place] [address] Michelle Kim, RN [address] [place] [address] 10/06/2024 2:40 PM EST Office Visit [facility] [address] [place] [address] Charley Crane MD [address] [place] [address] Health Maintenance Due Date Last Done Comments Alpha-1 Antitrypsin 1974 CKD PHOS USE SMARTSET 97780 1974 DTap/Tdap Vaccines (1 - Tdap) 1975 [...] 09/09/2023 Diabetic Foot Exam 06/15/2025 06/15/2024, 06/21/2023 CKD HGB USE SMARTSET 47776 09/07/202509/07, 09/07/2024, 06/15/2024, Additional history exists O2 ASSESSMENT COMPLETED IN PAST YEAR FOR COPD 09/10/2025 09/10/2024 Pneumococcal Vaccine: 65+ Years Completed 07/05/2023 Zoster [...] filedocumented as of this encounter Care Teams Fur Sorter Relationship Specialty Start Date End Date Charley Crane MD [address] [place] [address] PCP - General Internal Medicine 06/04/23 documented as of this encounter
--- OUTSIDE RECORDS SUMMARY | 2024-09-13 13:36 | External Medical Summary | Summary of Care ---
Author Name Unknown Organization [facility] Address [address] [place] [address] Phone [phone] Care Team Providers Care Development And Planning Engineer Name Role Phone Charley Crane MD Primary Care Provider [phone] Reason for Visit * Reason Onset Date Comments Medication Refill 09/08/2024 Re: Prednisone Oral Tablet 20 MG Encounter Details Date Type Department Care Team (Late st Contact Info) Description 09/08/2024 Refill [facility], [facility] [address] [place] [address] Anirudh Gonzalez PA-C [address] [place] [address] COPD, group D, by GOLD 2017 classification ([facility]) Allergies Active Allergy Reactions Criticality Noted Date [...] tions:COPD, group D, by GOLD 2017 classification ([facility]) Take 2 Tablets by mouth in the morning. For 5 days. Rescue kit. Use only as instructed. 10 Tablet 09/08/20 24 Active predniSONE 20 MG Oral Tablet (Deltasone)Indica tions:COPD, group D, by GOLD 2017 classification ([facility]) Take 2 Tablets by mouth in the morning. Rescue kit. Use only as instructed. 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 0 2023 Longstanding persistent atrial fibrillation 06/29 Assessment & Plan (07/01/2024 9:45 AM EDT): Rate controlled Continue coumadin Hypertension goal BP (blood pressure) < 130/80 0 07/17/2023 Dyslipidemia, goal LDL below 70 07/17/2023 Atherosclerosis of [place] co 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 pectoris 07/05/2023 [...] Classes - JULIA Class D - Inhaled Vjjjiyeqqtcbws-FUTZ-ROWF Combination Inhaler (Trellegy) Remote Patient Monitoring Vendor: Current Health Device(s): Continuous Monitoring Device Traditional Scale Self-Management plan High frequency nebulizer treatments every 4-6 hours around the clock Exacerbation plan Chest Xray Additional Comments: On continuous o2 2-3lpm Bipap at night Body mass index (BMI) of 40. 0 to 44.9 in adult 07/08/2023 07/09/2024 Overview: Per Obesity protocol Atherosclerosis of [place] co 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 pectoris 07/05/2023 [...] Telephone Encounter - Anirudh Gonzalez PA-C - 09/08/2024 4:00 PM ESTSigned Prescriptions: Disp Refills predniSONE 20 MG Oral Tablet (Deltasone) 10 Tab*0 Sig: Take 2 Tablets by mouth in the morning. For 5 days. Rescue kit. Use only as instructed. Authorizing Provider: ANIRUDH GONZALEZ * Telephone Encounter - Bobbi Worley OSA - 09/08/2024 1:58 PM EST Please authorize with refills, as appropriate. Thank you, CRISTOFER Solis documented in this encounter Plan of Treatment Upcoming Encounters Date Type Department Care Team (Late st Contact Info) Description 09/10/2024 10:00 AM EST Home Visit [facility] [address] [place] [address] Michelle Kim, RN 132 [facility] [place] [address] 09/28/2024 7:05 AM EST Laboratory Lab Mobile Phlebotomy [facility] [address] [place] [address] [facility], [facility] Mobile Home Draw [address] [place] [address] 09/29/2024 6:00 AM EST Anticoagulation [facility], Oscar Peace [address] [place] [address] [place] [address] [facility] [address] [place] [address] 10/06/2024 2:40 PM EST Office Visit [facility] [address] [facility] [address] Charley Crane MD [address] [facility] [address] Health Maintenance Due Date Last Done Comments Alpha-1 Antitrypsin 1973 CKD PHOS USE SMARTSET 71418 1974 DTap/Tdap Vaccines (1 - Tdap) 1975 [...] COPD 08/14/2025 08/14/2024 CKD HGB USE SMARTSET 69965 09/07/202509/07, 09/07/2024, 06/15/2024, Additional history exists Pneumococcal [...] Advanced care planning/counseling discussion Other specified counseling COPD, group D, by GOLD 2017 classification (HCC) documented in this encounter Care Teams Development And Planning Engineer Relationship Specialty Start Date End Date Charley Crane MD [address] [place] [address] PCP - General Internal Medicine 06/04/23 documented as of this encounter
--- OUTSIDE RECORDS SUMMARY | 2024-09-13 13:36 | External Medical Summary | Summary of Care ---
Author Name Unknown Organization [facility] Address [address] [facility] [address] Phone [phone] Care Team Providers Care Physical Trainer Name Role Phone Charley Crane MD Primary Care Provider Reason for Visit * Reason Onset Date Comments Protime Testing 09/08/2024 Encounter Details Date Type Department Care Team (Late st Contact Info) Description 09/08/2024 Telephone [facility] Services, Oscar Peace [address] [place] [address] [place] [address] [place] [address] Protime Testing (/) Allergies Active Allergy Reactions Criticality Noted Date [...] group D, by GOLD 2017 classification ([facility]) Take 2 Tablets by mouth in [...] classification 11/04 Overview: 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 0 2023 Longstanding persistent atrial fibrillation 06/29 Assessment & Plan (07/01/2024 9:45 AM EDT): Rate controlled Continue coumadin Hypertension goal BP (blood pressure) < 130/80 0 07/17/2023 Dyslipidemia, goal LDL below 70 07/17/2023 Atherosclerosis of [place] co 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 pectoris [...] Classes - JULIA Class D - Inhaled Btpmngbkzbpalz-KATN-BJKR Combination Inhaler (Trellegy) Remote Patient Monitoring Vendor: Current Health Device(s): Continuous Monitoring Device Traditional Scale Self-Management plan High frequency nebulizer treatments every 4-6 hours around the clock Exacerbation plan Chest Xray Additional Comments: On continuous o2 2-3lpm Bipap at night Body mass index (BMI) of 40. 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 Isabel Li Rph, Pharm.D. Clinical Pharmacist [facility]ized [facility] Services ([facility]) [phone] 09/08/2024,12:20 PM * Telephone Encounter - Tamara Oquendo PHARM Tech - 09/08/2024 11:28 AM EST Pt calling back for dosing instructions please advise documented in this encounter Plan of Treatment Upcoming Encounters Date Type Department Care Team (Late st Contact Info) Description 09/10/2024 10:00 AM EST [facility] Visit [facility] 132 [facility] [place] [address] Michelle Kim, RN 132 [facility] [place] [address] 09/28/2024 7:05 AM EST Laboratory Lab Mobile Phlebotomy [facility] [address] [facility] [place] [facility] [address] [facility], [facility]ml Mobile Home Draw [address] [facility] [address] 09/29/2024 6:00 AM EST Anticoagulation Central[facility] Clinical Pharmacy Services, Oscar Peace [address] [place] [address] [place] [address] [place] [address] 10/06/2024 2:40 PM EST Office Visit [facility] [address] [facility] [address] Charley Crane MD [address] [place] [address] Health Maintenance Due Date Last Done Comments Alpha-1 Antitrypsin 1974 CKD PHOS USE SMARTSET 14136 1974 DTap/Tdap Vaccines (1 - Tdap) 1975 [...] COPD 08/14/2025 08/14/2024 CKD HGB USE SMARTSET 36702 09/07/202509/07, 09/07/2024, 06/15/2024, Additional history exists Pneumococcal [...] filedocumented as of this encounter Care Teams Physical Trainer Relationship Specialty Start Date End Date Charley Crane MD [address] [place] [address] PCP - General Internal Medicine 06/04/23 documented as of this encounter
--- OUTSIDE RECORDS SUMMARY | 2024-09-13 13:36 | External Medical Summary | Summary of Care ---
Author Name Unknown Organization [facility] Address [address] [place] [address] Phone [phone] Care Team Providers Care Rug Inspector Helper Name Role Phone Charley Crane MD Primary Care Provider [phone] Reason for Visit * Reason Comments eRx-Medication Refill Encounter Details Date Type Department Care Team (Late st Contact Info) Description 09/10/2024 Refill [facility] [address] [place] [address] Charley Crane MD [address] [place] [address] Allergies Active Allergy Reactions Criticality Noted Date [...] by mouth once daily 180 Tablet 3 024 Active Additional Information Patient taking differently: 40 mg Oral BID (.AM/PM), (No instructions reported), Reported on 07/31/2024 Albuterol Sulfate HFA 108 (90 Base) MCG/ACT Inhalation Aerosol Solution Inhale 2 Puffs by mouth every 6 hours as needed for Shortness of Breath or Wheezing. 54 g 1 Active Fluticasone Propionate 50 MCG/ACT Nasal Suspension (Flonase) Administer 2 Sprays into each nostril in the morning. 16 g 1 024 Active Atorvastatin Calcium 80 MG Oral Tablet (Lipitor)Indicat ions:Dyslipidemi a, goal LDL below 70 Take 1 Tablet by mouth in the morning. 90 Tablet 3 024 Active Carvedilol 3.125 MG Oral Tablet (Coreg)Indicatio ns:Longstanding persistent atrial fibrillation (HCC),Hypertensi on goal BP (blood pressure) < 130/80,Chronic heart failure with preserved ejection fraction (HCC) Take 1 Tablet by mouth 2 times a day with morning and evening meals. 180 Tablet 3 Active Ipratropium-Albu terol 0.5-2.5 (3) MG/3ML Inhalation Solution (Duoneb) INHALE THE CONTENTS OF 1 VIAL IN NEBULIZER EVERY 6 HOURS NEEDED FOR SHORTNESS OF BREATH 360 mL 3 024 Active Additional Information Patient taking differently: 3 mL Nebulizer, INHALE THE CONTENTS OF 1 VIAL IN NEBULIZER EVERY 4 HOURS NEEDED FOR SHORTNESS OF BREATH, Reported on 06/03/2024 Pantoprazole Sodium 40 MG Oral Tablet Delayed Release (Protonix) TAKE 1 TABLET BY MOUTH EVERY MORNING 90 Tablet 1 Active Trelegy Ellipta 100-62.5-25 MCG/ACT Aerosol Powder Breath Activated (Fluticasone-Ume clidinium-Vilant blaire) Inhale 1 Puff by mouth in the morning. 180 Blister Dosing Unit 3 024 Active Montelukast Sodium 10 MG Oral Tablet (Singulair) Take 1 Tablet by mouth in the morning. 90 Tablet 3 024 Active Compressor Nebulizer Inhale via nebulizer. Use as directed. 1 Each 1 Active guaiFENesin ER 1200 MG Oral Tablet [...] to knees and shoulders. 100 g 1 Active Azithromycin 250 MG Oral Tablet (Zithromax Z-Juan) Take two tablets by mouth on first day, then 1 tablet daily until gone 6 Tablet Active Warfarin Sodium 10 MG Oral Tablet (Coumadin) Take 1 to 1.5 tablets by mouth every day in the evening or as directed by the anticoagulation clinic. 100 Tablet 3 024 Active Enalapril Maleate 2.5 MG Oral Tablet (Vasotec)Indicat ions:Hypertensio n goal BP (blood pressure) < 130/80 Take 1 Tablet by mouth in the morning. 90 Tablet 2 Active predniSONE 20 MG Oral Tablet (Deltasone)Indic ations:COPD, group D, by GOLD 2017 classification ([facility]) Take 2 Tablets by mouth in the morning. For 5 days. Rescue kit. Use only as instructed. 10 Tablet Active Spironolactone 25 MG Oral Tablet (Aldactone) Take 1 Tablet by mouth in the morning. 90 Tablet 3 024 Active Jardiance 10 MG Oral Tablet (Empagliflozin) TAKE 1 TABLET BY MOUTH EVERY MORNING 90 Tablet 1 Active Empagliflozin 10 MG Oral Tablet (Jardiance) Take 1 Tablet by mouth in the morning. 90 Tablet 3 024 2023 Discontinued documented as of this encounter (statuses [...] goal LDL below 70 07/17/2023 Atherosclerosis of [place] co 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 pectoris 07/05/2023 [...] Jardiance) Remote Patient Monitoring Vendor: [facility] Device(s): Connected Scale Continuous Monitoring Device Self [...] Classes - JULIA Class D - Inhaled Plokvidjapynhn-BHYL-OECQ Combination Inhaler (Trellegy) Remote Patient Monitoring Vendor: Current Health Device(s): Continuous Monitoring Device Traditional Scale Self-Management plan High frequency nebulizer treatments every 4-6 hours around the clock Exacerbation plan Chest Xray Additional Comments: On continuous o2 2-3lpm Bipap at night Body mass index (BMI) of 40. 0 to 44.9 in adult 07/08/2023 07/09/2024 Overview: Per Obesity protocol Atherosclerosis of [place] co 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 pectoris 07/05/2023 [...] encounter Miscellaneous Notes * Telephone Encounter - Sasha Knowles [facility] - 09/10/2024 9:54 AM ESTSigned Prescriptions: Disp Refills Jardiance 10 MG Oral Tablet (Empagliflozin)90 Tab*1 Sig: TAKE 1TABLET BY MOUTH EVERY MORNINGAuthorizing Provider: Gloria CRANE User: SASHA KNOWLES------- * Telephone Encounter - Sasha Knowles [facility] - 09/10/2024 9:54 AM EST Reissued balance of refills on current medication order(s) as a 90 day script. Thank you, Sasha Knowles, PharmD Clinical Pharmacist Centralized Clinical Pharmacy Services ([facility]) 09/10/24 9:54 AM [phone] documented in this encounter Plan of Treatment Upcoming Encounters Date Type Department Care Team (Late st Contact Info) Description 09/28/2024 7:05 AM EST Laboratory Lab Mobile Phlebotomy [facility] [address] [facility] [place] [address] [facility], G[facility] Mobile Home Draw [address] [facility] [place] [address] 09/29/2024 6:00 AM EST Anticoagulation Centralized Clinical Pharmacy Services, Oscar Peace [address] [place] [address] [place] [address] [facility], [address] [place] [address] 10/06/2024 2:40 PM EST Office Visit [place] [address] [place] [address] Charley Crane MD [address] [place] [address] Health Maintenance Due Date Last Done Comments Alpha-1 Antitrypsin 1974 CKD PHOS USE SMARTSET 21077 1974 DTap/Tdap Vaccines (1 - Tdap) 1975 [...] COPD 08/14/2025 08/14/2024 CKD HGB USE SMARTSET 12839 09/07/202509/07, 09/07/2024, 06/15/2024, Additional history exists Pneumococcal [...] filedocumented as of this encounter Care Teams Rug Inspector Helper Relationship Specialty Start Date End Date Charley Crane MD [address] [place] [address] PCP - General Internal Medicine 06/04/23 documented as of this encounter
--- OUTSIDE RECORDS SUMMARY | 2024-09-13 13:36 | External Medical Summary | Summary of Care ---
Author Name Unknown Organization [facility] Address [address] [place] [address] Phone [phone] Care Team Providers Care Spoilage Worker Name Role Phone Salima Crane MD Primary Care Provider [phone] Reason for Visit * Reason Onset Date Comments Medication Refill 09/09/2024 Encounter Details Date Type Department Care Team (Late st Contact Info) Description 09/09/[address] [facility] [address] [place] [phone] Salima Crane MD [address] [place] [address] Allergies Active Allergy Reactions Criticality [...] tions:COPD, group D, by GOLD 2017 classification ([facility]) Take 2 Tablets by mouth in the morning. For 5 days. Rescue kit. Use only as instructed. 10 Tablet 09/08/20 24 Active Spironolactone 25 MG Oral Tablet (Aldactone) Take 1 Tablet by mouth in the morning. 90 Tablet 3 09/10/20 24 Active Spironolactone 25 MG Oral Tablet (Aldactone) Take 1 Tablet by mouth in the morning. 90 Tablet 3 01/20/20 24 2023 Disconti nued(Ref ill) documented as [...] goal LDL below 70 07/17/2023 Atherosclerosis of [place] co 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 Jardiance) Remote Patient Monitoring Vendor: [facility] Device(s): Connected Scale [...] Classes - JULIA Class D - Inhaled Ccheqxyzrcjdpj-RHGL-KQOV Combination Inhaler (Trellegy) Remote Patient Monitoring Vendor: Current Health Device(s): Continuous Monitoring Device Traditional Scale Self-Management plan High frequency nebulizer treatments every 4-6 hours around the clock Exacerbation plan Chest Xray Additional Comments: On continuous o2 2-3lpm Bipap at night Body mass index (BMI) of 40. 0 to 44.9 in adult 07/08/2023 07/09/2024 Overview: Per Obesity protocol Atherosclerosis of [place] co 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 pectoris 07/05/2023 [...] Telephone Encounter - Salima Crane MD - 09/10/2024 6:40 AM ESTSigned Prescriptions: Disp Refills Spironolactone 25 MG Oral Tablet (Aldacton*90 Tab*3 Sig: Take 1 Tablet by mouth in the morning. Authorizing Provider: SALIMA CRANE * Telephone Encounter - Grant Ying OSA - 09/09/2024 11:51 AM EST Did you pend patient's preferred pharmacy and medication before forwarding?yes Pharmacy: [id number] [address] [facility] Pending Prescriptions: Disp Refills Spironolactone 25 MG Oral Tablet (Aldacto*90 Tab*3 Sig: Take 1 Tablet by mouth in the morning. Last Visit: 08/03/2024 (in office), Visit date not found (telemedicine) Next Visit: Visit date not found If no future appointments scheduled, and last appointment is greater than a year ago, please schedule patient for a follow-up appointment Last date the medication was ordered: 01/20/24 Is this request for a controlled substance?No Urine Drug Screen:No results found for this or any previous visit. Patient Phone Numbers Labs: Lab Results Component Value Date/Time CREAT 0.8 09/07/2024 07:49 AM POTASSIUM 4.5 09/07/2024 07:49 AM TSH 2.90 09/07/2024 07:49 AM LDL 84 02/10/2024 01:36 PM ALT 19 06/15/2024 02:40 PM HGBA1C 6.2 (H) 06/15/2024 02:40 PM documented in this encounter Plan of Treatment Upcoming Encounters Date Type Department Care Team (Late st Contact Info) Description 09/10/2024 10:00 AM EST [facility], [facility] [address] [place] [address] Michelle Kim, RN [address] [place] [address] 09/28/2024 7:05 AM EST Laboratory Lab Mobile Phlebotomy [facility] [address] [place] [address] [facility], Gml Mobile Home Draw [address] [place] [address] 09/29/2024 6:00 AM EST Anticoagulation Centralized Clinical Pharmacy Services, [address] [place] [address] [place] [address] 10/06/2024 2:40 PM EST Office Visit [facility] [address] [place] [address] Salima Crane MD [address] [place] [address] Health Maintenance Due Date Last Done Comments Alpha-1 Antitrypsin 1974 CKD PHOS USE SMARTSET 90856 1974 DTap/Tdap Vaccines (1 - Tdap) 1975 [...] COPD 08/14/2025 08/14/2024 CKD HGB USE SMARTSET 90050 09/07/202509/07, 09/07/2024, 06/15/2024, Additional history exists Pneumococcal [...] filedocumented as of this encounter Care Teams Spoilage Worker Relationship Specialty Start Date End Date Salima Crane MD [address] [place] [address] PCP - General Internal Medicine 06/04/23 documented as of this encounter
--- OUTSIDE RECORDS SUMMARY | 2024-09-13 13:36 | External Medical Summary | Summary of Care ---
Author Name Unknown Organization [facility] Address [address] [place] [address] Phone [phone] Care Team Providers Care Fence Manufacture Supervisor Name Role Phone Charley Crane MD Primary Care Provider [phone] Reason for Visit * Reason Onset Date Comments Medication Refill 09/10/2024 Encounter Details Date Type Department Care Team (Late st Contact Info) Description 09/10/2024 Refill [facility], [facility] 132 [facility] [place] [address] Michelle Kim, RN [address] [facility] [place] [address] COPD, group D, by GOLD 2017 classification ([facility])* Allergies Active Allergy Reactions Criticality Noted Date [...] Wheezing. 54 g 1 01/20/20 24 Active Atorvastatin Calcium 80 MG Oral [...] shoulders. 100 g 1 08/10/20 24 Active Warfarin Sodium 10 MG Oral [...] tions:COPD, group D, by GOLD 2017 classification ([facility]) Take 2 Tablets by mouth in the morning. For 5 days. Rescue kit. Use only as instructed. 10 Tablet 09/08/20 24 Active Spironolactone 25 MG Oral Tablet (Aldactone) Take 1 Tablet by mouth in the morning. 90 Tablet 3 09/10/20 24 Active Jardiance 10 MG Oral Tablet (Empagliflozin) TAKE 1 TABLET BY MOUTH EVERY MORNING 90 Tablet 1 09/10/20 24 Active Fluticasone Propionate 50 MCG/ACT Nasal Suspension (Flonase) Administer 2 Sprays into each nostril in the morning. 16 g 1 09/10/20 24 Active Azithromycin 250 MG Oral Tablet (Zithromax Z-Juan)Indications :COPD, group D, by GOLD 2017 classification ([facility]) Take two tablets by mouth on first day, then 1 tablet daily until gone 6 Tablet 09/10/20 24 Active Fluticasone Propionate 50 MCG/ACT Nasal Suspension (Flonase) Administer 2 Sprays into each nostril in the morning. 16 g 1 02/10/20 24 2023 Disconti nued(Ref ill) Azithromycin 250 MG Oral Tablet (Zithromax Z-Juan) Take two tablets by mouth on first day, then 1 tablet daily until gone 6 Tablet 08/26/20 24 2023 Disconti nued(Ref ill) documented as [...] goal LDL below 70 07/17/2023 Atherosclerosis of [place] co 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 pectoris 07/05/2023 [...] Classes - JULIA Class D - Inhaled Krpovzxdvtmxxq-OTFZ-XABD Combination Inhaler (Trellegy) Remote Patient Monitoring Vendor: Current Health Device(s): Continuous Monitoring Device Traditional Scale Self-Management plan High frequency nebulizer treatments every 4-6 hours around the clock Exacerbation plan Chest Xray Additional Comments: On continuous o2 2-3lpm Bipap at night Body mass index (BMI) of 40. 0 to 44.9 in adult 07/08/2023 07/09/2024 Overview: Per Obesity protocol Atherosclerosis of [place] co 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 pectoris 07/05/2023 [...] money to buy more. Never true 07/17/20 Within the past 12 months, t he [...] Telephone Encounter - Charley Crane MD - 09/10/2024 1:12 PM ESTSigned Prescriptions: Disp Refills Fluticasone Propionate 50 MCG/ACT Nasal [place]*16 g 1 Sig: Administer 2 Sprays into each nostril in the morning. Authorizing Provider: CHARLEY CRANE Azithromycin 250 MG Oral Tablet (Zithromax*6 Tabl*0 Sig: Take two tablets by mouth on first day, then 1 tablet daily until gone Authorizing Provider: CHARLEY CRANE * Telephone Encounter - Michelle Kim RN - 09/10/2024 12:48 PM EST Pt in needs of refill of flonase and also azithromycin to keep on hand for copd rescue kit. Orders pended for your review and signature. Pharmacy is [facility] in [place]. Thank you documented in this encounter Plan of Treatment Upcoming Encounters Date Type Department Care Team (Late st Contact Info) Description 09/28/2024 7:05 AM EST Laboratory Lab Mobile Phlebotomy [facility] [address] [place] [address] [facility], Gml Mobile Home Draw [address] [place] [address] 09/29/2024 6:00 AM EST Anticoagulation Centralized Clinical Pharmacy Services, Oscar Peace [address] [place] [address] [place] [address] [facility], [address] [place] [address] 10/01/2024 4:00 PM EST [facility], [facility] [address] [facility] [place] [address] Michelle Kim, RN [address] [place] [address] 10/06/2024 2:40 PM EST Office Visit [facility] [address] [place] [address] Charley Crane MD [address] [place] [address] Health Maintenance Due Date Last Done Comments Alpha-1 Antitrypsin 1974 CKD PHOS USE SMARTSET 25683 1974 DTap/Tdap Vaccines (1 - Tdap) 1975 [...] 06/15/2025 06/15/2024, 06/21/2023 CKD HGB USE SMARTSET 42597 09/07/202509/07, 09/07/2024, 06/15/2024, Additional history exists O2 [...] Primary documented in this encounter Care Teams Fence Manufacture Supervisor Relationship Specialty Start Date End Date Charley Crane MD [address] [place] [address] PCP - General Internal Medicine 06/04/23 documented as of this encounter
--- OUTSIDE RECORDS SUMMARY | 2024-09-13 13:36 | External Medical Summary | Summary of Care ---
Author Name Unknown Organization [facility] Address [address] [place] [address] Phone [phone] Care Team Providers Care Hard Metals Hand Engraver Name Role Phone Charley Crane MD Primary Care Provider [phone] Encounter Details Date Type Department Care Team (Late st Contact Info) Description 09/03/2024 Population Health External Data Unspecified Department Allergies Active Allergy Reactions Criticality Noted Date [...] 24 Active Carvedilol 3.125 MG Oral Tablet (Coreg)Indicatio ns:Longstanding persistent atrial fibrillation (HCC),Hypertensi on goal BP (blood pressure) < 130/80,Chronic heart failure with preserved ejection fraction (HCC) Take 1 Tablet by mouth 2 times a day with morning and evening meals. 180 Tablet 3 04/28/20 24 Active Ipratropium-Albu terol 0.5-2.5 (3) MG/3ML Inhalation [...] empagliflozin (ex. Jardiance) Remote Patient Monitoring Vendor: [facility] Device(s): Connected Scale Continuous Monitoring Device Self [...] Classes - JULIA Class D - Inhaled Puplqzwjmxgnsr-HTTQ-QIGD Combination Inhaler (Sandro) Remote Patient Monitoring Vendor: [...] EST Laboratory Lab [facility] [address] [place] [address] M[facility], Gml Mobile Home Draw [address] [facility] [place] [address] 09/29/2024 6:00 AM EST Anticoagulation Centralized Clinical Pharmacy Services, Oscar Peace [address] [place] [address] [place] [address] [facility] [place] [address] 10/06/2024 2:40 PM EST Office Visit [facility] [place] [address] [address] [place] [address] Charley Crane MD [address] [place] [address] Health Maintenance Due Date Last Done Comments Alpha-1 Antitrypsin 1974 CKD PHOS USE SMARTSET 48790 1974 DTap/Tdap Vaccines (1 - Tdap) 1975 [...] COPD 08/14/2025 08/14/2024 CKD HGB USE SMARTSET 00497 09/07/202509/07, 09/07/2024, 06/15/2024, Additional history exists Pneumococcal [...] filedocumented as of this encounter Care Teams Hard Metals Hand Engraver Relationship Specialty Start Date End Date Charley Crane MD [address] [place] [address] PCP - General Internal Medicine 06/04/23 documented as of this encounter
--- OUTSIDE RECORDS SUMMARY | 2024-09-13 13:36 | External Medical Summary | Summary of Care ---
Author Name Unknown Organization [facility] Address [address] [place] [address] Phone [phone] Care Team Providers Care Assistant Education Director Name Role Phone Charley Crane MD Primary Care Provider [phone] Reason for Visit * Reason Onset Date Comments [facility]: Maintenance 09/08/2024 Encounter Details Date Type Department Care Team (Late st Contact Info) Description 09/08/2024 Telephone [facility], [facility] [address] [facility] [place] [phone] Paula Prakash RN [address] [place] [address] [facility]: Maintenance Allergies Active Allergy Reactions Criticality Noted Date [...] tions:COPD, group D, by GOLD 2017 classification ([facility] [...] classification 11/04 Overview: 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 COPD GOLD Classification 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 0 2023 Longstanding persistent atrial fibrillation 06/29 Assessment & Plan (07/01/2024 9:45 AM EDT): Rate controlled Continue coumadin Hypertension goal BP (blood pressure) < 130/80 0 07/17/2023 Dyslipidemia, goal LDL below 70 07/17/2023 Atherosclerosis of [place] co 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 pectoris 07/05/2023 [...] Classes - JULIA Class D - Inhaled Vcmyiyenuxlwbi-FXXW-GPJV Combination Inhaler (Trellegy) Remote Patient Monitoring Vendor: [facility] Device(s): Continuous Monitoring Device Traditional Scale Self-Management plan High frequency nebulizer treatments every 4-6 hours around the clock Exacerbation plan Chest Xray Additional Comments: On continuous o2 2-3lpm Bipap at night Body mass index (BMI) of 40. 0 to 44.9 in adult 07/08/2023 07/09/2024 Overview: Per Obesity protocol Atherosclerosis of [place] co 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 pectoris 07/05/2023 [...] encounter Miscellaneous Notes * Telephone Encounter - Paula Prakash RN - 09/08/2024 1:56 PM EST PC from [facility] patient would like to transfer all prescriptions [facility]to [facility] Provided Quin with GMOP number for patient to enroll and obtain fax number Advised that after enrollment patient can call [facility] pharmacy and request all prescriptions be sent to OP Routing to [facility] to follow up at 09/10/24 in case of any issues or concerns documented in this encounter Plan of Treatment Upcoming Encounters Date Type Department Care Team (Late st Contact Info) Description 09/10/2024 10:00 AM EST Home Visit [facility]zy at [facility] [address] [place] [address] Michelle Kim RN 132 [facility] [place] [address] 09/28/2024 7:05 AM EST Laboratory Lab Mobile Phlebotomy [facility] [address] [facility] [place] [address] Mvmg, Gml Mobile Home Draw [address] [facility] [place] [address] 09/29/2024 6:00 AM EST Anticoagulation Centralized Clinical Pharmacy Services, Oscar Peace [address] [place] [address] [place] [address] [place] [address] 10/06/2024 2:40 PM EST Office Visit [facility] [address] [place] [address] [place] [address] Charley Crane MD [address] [place] [address] Health Maintenance Due Date Last Done Comments Alpha-1 Antitrypsin 1974 CKD PHOS USE SMARTSET 36190 1974 DTap/Tdap Vaccines (1 - Tdap) 1975 [...] COPD 08/14/2025 08/14/2024 CKD HGB USE SMARTSET 94958 09/07/202509/07, 09/07/2024, 06/15/2024, Additional history exists Pneumococcal [...] filedocumented as of this encounter Care Teams Assistant Education Director Relationship Specialty Start Date End Date Charley Crane MD [address] [place] [address] PCP - General Internal Medicine 06/04/23 documented as of this encounter
--- OUTSIDE RECORDS SUMMARY | 2024-09-13 13:37 | External Medical Summary | Summary of Care ---
Author Name Unknown Organization [facility] Address [address] [place] [address] Phone [phone] Care Team Providers Care Labor Trainer Name Role Phone Charley Crane MD Primary Care Provider Reason for Visit * Reason Onset Date Comments [facility]: Maintenance 09/04/2024 Encounter Details Date Type Department Care Team (Late st Contact Info) Description 09/04/2024 Telephone [facility], [place] [facility] [address] [place] [address] Kael, Andrew, CRISTOFER [address] [place], [place] [phone] [facility]: Maintenance Allergies Active Allergy Reactions Criticality Noted Date Comments Cephalexin Other (Please comment) 08/03/2024 Taking it effect his warfarin documented as of this encounter (statuses as of 09/04/2024) Medications Centrum Silver 50+Men Oral Tablet Take [...] tions:COPD, group D, by GOLD 2017 classification ([facility]) Take 2 Tablets by mouth in [...] in the morning. 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 0 2023 Longstanding persistent atrial fibrillation 06/29 Assessment & Plan (07/01/2024 9:45 AM EDT): Rate controlled Continue coumadin Hypertension goal BP (blood pressure) < 130/80 0 07/17/2023 Dyslipidemia, goal LDL below 70 07/17/2023 Atherosclerosis of [place] co 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 pectoris [...] as of this encounter (statuses as of 09/04/2024) Resolved Problems Problem Noted Date Diagnosed Date [...] Classes - JULIA Class D - Inhaled Teumpwevksmwvp-KFBB-SHZS Combination Inhaler (Trellegy) Remote Patient Monitoring Vendor: [facility] Device(s): Continuous Monitoring Device Traditional Scale Self-Management plan High frequency nebulizer treatments every 4-6 hours around the clock Exacerbation plan Chest Xray Additional Comments: On continuous o2 2-3lpm Bipap at night Body mass index (BMI) of 40. 0 to 44.9 in adult 07/08/2023 07/09/2024 Overview: Per Obesity protocol Atherosclerosis of [place] co 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 pectoris [...] as of this encounter (statuses as of 09/04/2024) Immunizations Name Administration Dates Next Due Pneumococcal [...] encounter Miscellaneous Notes * Telephone Encounter - Andrew Scruggs OSA - 09/04/2024 2:53 PM EST Request from Fabian Gonzalez to clarify what the nurse is requesting. Called Britany at [phone] and left a message requesting a call back. documented in this encounter Plan of Treatment Upcoming Encounters Date Type Department Care Team (Late st Contact Info) Description 09/07/2024 7:00 AM EST Laboratory Lab Mobile Phlebotomy [facility] [address] [facility] [place] [address] Mvmg, Gml Mobile Home Draw [address] [facility] [place] [address] 09/08/2024 6:00 AM EST Anticoagulation Centralized Clinical Pharmacy Services, [address] [place] [address] [place] [address] 09/10/2024 10:00 AM EST [facility] Visit [facility] [address] [facility] [place] [address] Michelle Kim RN 132 [facility] [place] [address] 10/06/2024 2:40 PM EST Office Visit [facility] [address] [place] [address] Charley Crane MD [address] [place] [address] Health Maintenance Due Date Last Done Comments Alpha-1 Antitrypsin 1974 CKD PHOS USE SMARTSET 80140 1974 DTap/Tdap Vaccines (1 - Tdap) 1975 [...] 04/28/2024, , 09/09/2023 CKD HGB USE SMARTSET 28712 06/15/202506/15, 06/15/2024, 05/27/2024, Additional history exists Diabetic Foot Exam 06/15/2025 06/15/2024, 06/21/2023 O2 ASSESSMENT COMPLETED IN PAST YEAR FOR COPD 08/14/2025 08/14/2024 Pneumococcal Vaccine: 65+ Years Completed 07/05/2023 Zoster [...] filedocumented as of this encounter Care Teams Labor Trainer Relationship Specialty Start Date End Date Charley Crane MD [address] [facility] [place] [address] PCP - General Internal Medicine 06/04/23 documented as of this encounter
--- OUTSIDE RECORDS SUMMARY | 2024-09-13 13:37 | External Medical Summary | Summary of Care ---
Author Name Unknown Organization [facility] Address [address] [place] [address] Phone [phone] Care Team Providers Care Supervisor Poultry Hatchery Name Role Phone Charley Crane MD Primary Care Provider [phone] Reason for Visit * Reason Onset Date Comments Order Request 08/27/2024 VNA Encounter Details Date Type Department Care Team (Late st Contact Info) Description 08/27/2024 Telephone [facility] [address] [place] [address] Charley Crane MD [address] [place] [address] Order Request (VNA ) Allergies Active Allergy Reactions Criticality Noted Date Comments Cephalexin Other (Please comment) 08/03/2024 Taking it effect his warfarin documented as of this encounter (statuses as of 09/01/2024) Medications Medication Sig Dispensed Refills Start Date [...] once daily 180 Tablet 3 4 Active Additional Information Patient taking differently: 40 [...] 180 Blister Dosing Unit 3 4 Active Montelukast Sodium 10 MG Oral Tablet (Singulair) Take 1 Tablet by mouth in the morning. 90 Tablet 3 4 Active Compressor Nebulizer Inhale via nebulizer. Use as directed. 1 Each 1 4 Active predniSONE 20 MG Oral Tablet (Deltasone)Indicati ons:COPD, group D, by GOLD 2017 classification ([facility]) Take 2 Tablets by mouth in the morning. Rescue kit. Use only as instructed. 10 Tablet 4 Active guaiFENesin ER 1200 MG Oral Tablet Extended Release 12 Hour Take 1,200 mg by mouth in the morning and 1,200 mg before bedtime. Active Theophylline ER 100 MG Oral Tablet Extended Release 12 Hour (Theodur) Take 1 Tablet by mouth in the morning and 1 Tablet before bedtime. Active Enalapril Maleate 2.5 MG Oral Tablet (Vasotec)Indication s:Hypertension goal BP (blood pressure) < 130/80 Take 1 Tablet by mouth in the morning. 30 Tablet 11 4 Active Diclofenac Sodium 1 % External Gel (Voltaren) Apply 1 Application topically to affected area in the morning and 1 Application before bedtime. Apply to knees and shoulders. 100 g 1 4 Active Azithromycin 250 MG Oral Tablet (Zithromax Z-Juan) Take two tablets by mouth on first day, then 1 tablet daily until gone 6 Tablet 4 Active Warfarin Sodium 10 MG Oral Tablet (Coumadin) Take 1 to 1.5 tablets by mouth every day in the evening or as directed by the anticoagulation clinic. 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 Jardiance) Remote Patient Monitoring Vendor: [facility] Device(s): Connected Scale Continuous Monitoring Device Self [...] as of this encounter (statuses as of 09/01/2024) Resolved Problems Problem Noted Date Diagnosed Date [...] Classes - JULIA Class D - Inhaled Ljstaafephrkla-DFNW-VTYK Combination Inhaler (Sandro) Remote Patient Monitoring Vendor: Current [facility] Device(s): Continuous Monitoring Device Traditional Scale Self-Management plan High frequency nebulizer treatments every 4-6 hours around the clock Exacerbation plan Chest Xray Additional Comments: On continuous o2 2-3lpm Bipap at night Body mass index (BMI) of 40. 0 to 44.9 in adult 07/08/2023 07/09/2024 Overview: Per Obesity protocol Atherosclerosis of [place] co 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 pectoris 07/05/2023 08/29/2023 Dyspnea 07/04/2023 08/13/2023 Occupational exposure in workplace 07/04/2023 02/14/2024 Chronic congestive heart failure 06/08/2023 07/05/2023 COPD, severe 06/08/2023 07/11/2023 Overview: Per COPD GOLD Classification Chronic hypoxemic respiratory failure 06/08/2023 07/04/2023 Chronic respiratory failure with hypoxia, on home oxygen therapy 06/08/2023 08/29/2023 Diabetes mellitus without complication 06/08/2023 08/29/2023 documented as of this encounter (statuses as of 09/01/2024) Immunizations Name Administration Dates Next Due Pneumococcal [...] encounter Miscellaneous Notes * Telephone Encounter - Mag Mcintyre OSA - 09/01/2024 2:44 PM EST Terence from [facility] calling in to let PCP know that oxygen order was cancelled due to not having the correct supporting documents for oxygen. * Telephone Encounter - Chanel Belle OSA - 08/28/2024 10:17 AM EDT An order was requested for this patient. Name of Requesting Provider: patient Order Requested: oxygen equipment Diagnosis/Reason for Request: pt is requesting If order request is for Mammogram: Is the patient having any breast symptoms? N/A Is there a chance of ? N/A Has the patient had any breast problems in the past? NA What location AND department does the patient wish to have their order completed at? [facility] Fax Number, if applicable: patient doesn't have it If the caller is not a current patient, please advise the patient to call their current PCP to havethe order's prior to being seen in our office. The patient was informed that our providers would not order anything (medication, labs, etc.) prior to being seen. * Telephone Encounter - Ashely Garduno LPN - 08/27/2024 3:27 PM EDT Received Fax for BFPROVIDERS: Dr. Charley Crane ORDER received from [facility] and FAXED documented in this encounter Plan of Treatment Upcoming Encounters Date Type Department Care Team (Late st Contact Info) Description 09/02/2024 12:00 PM EST Scheduled Telephone [facility], [facility] [address] [place] [address] Coordinator, [facility] [address] [place] [address] 09/02/2024 3:00 PM EST Office Visit [facility] [address] [place] [phone] Audrey Lee DO [address] [place] [address] 09/07/2024 7:00 AM EST Laboratory Lab Mobile Phlebotomy [facility] [address] [facility] [place] [address] Mvmg, Gml Mobile Home Draw [address] [facility] [place] [address] 09/08/2024 6:00 AM EST Anticoagulation Centralized Clinical Pharmacy Services, Oscar Peace [address] [place] [address] [place] [address] [facility], [address] [place] [address] 09/10/2024 10:00 AM EST [facility], [facility] 132 [facility] [place] [address] Michelle Kim RN [facility] [place] [address] 10/06/2024 2:40 PM EST Office Visit [facility] [address] [place] [address] Charley Crane MD [address] [place] [address] Health Maintenance Due Date Last Done Comments Alpha-1 Antitrypsin 1974 CKD PHOS USE SMARTSET 08951 1974 DTap/Tdap Vaccines (1 - Tdap) 1975 [...] 04/28/2024, , 09/09/2023 CKD HGB USE SMARTSET 15533 06/15/202506/15, 06/15/2024, 05/27/2024, Additional history exists Diabetic [...] as of this encounter Care Teams Supervisor Poultry Hatchery Relationship Specialty Start Date End Date Charley Crane MD [address] [place] [address] PCP - General Internal Medicine 06/04/23 documented as of this encounter
--- OUTSIDE RECORDS SUMMARY | 2024-09-13 13:37 | External Medical Summary | Summary of Care ---
Author Name Unknown Organization [facility] Address [address] [facility] [address] Phone [phone] Care Team Providers Care Janitorial Tech Name Role Phone Charley Crane MD Primary Care Provider [phone] Reason for Visit * Reason Comments Dosage Adjustment Via Phone (anticoag Cl inic) Encounter Details Date Type Department Care Team (Late st Contact Info) Description 09/08/2024 6:00 AM EST Anticoagulation Centralized Clinical Pharmacy Services, Oscar Peace [address] [place] [address] [place] [address] [place] [address] snf current use of anticoagulant therapy*; Longstanding persistent [...] goal LDL below 70 07/17/2023 Atherosclerosis of [place] co 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 pectoris 07/05/2023 [...] Classes - JULIA Class D - Inhaled Wodcursatbdoih-QACT-PQXS Combination Inhaler (Trellegy) Remote Patient Monitoring Vendor: Current [facility] Device(s): Continuous Monitoring Device Traditional Scale Self-Management plan High frequency nebulizer treatments every 4-6 hours around the clock Exacerbation plan Chest Xray Additional Comments: On continuous o2 2-3lpm Bipap at night Body mass index (BMI) of 40. 0 to 44.9 in adult 07/08/2023 07/09/2024 Overview: Per Obesity protocol Atherosclerosis of [place] co 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 pectoris 07/05/2023 [...] as of this encounter Progress Notes * Jennifer Tucker CPhT - 09/08/2024 11:21 AM EST Contacts Contact Date/Time Type Contact Phone/Fax 09/08/2024 11:17 AM EST Phone (Outgoing) Cliff HallBala (Self) [phone] (M) Left Message Subjective Advised patient to contact Anticoagulation Clinic if any unusual bruising or bleeding, recent illness, changes in medication, or questions/concerns. PT/INR results, Coumadin dose instructions, and next PT/INR date communicated as noted by Pharmacist: Yes JENNIFER TUCKER CPhT 09/08/2024, 11:21 AM * Isabel Li RPh - 09/08/2024 8:48 AM EST Coumadin Clinic [...] dose: not changed Additional Dosing Information: Description [facility] Pill packs from [employer] - Warfarin NOT included Tech to contact patient with dose instructions as noted. Isabel Li RPh 09/08/2024, 8:48 AM documented in this encounter Plan of Treatment Upcoming Encounters Date Type Department Care Team (Late st Contact Info) Description 09/10/2024 10:00 AM EST [facility], [facility] [address] [place] [place] [address] Michelle Kim, RN [address] [place] [address] 09/29/2024 6:00 AM EST Anticoagulation Centralized Clinical Pharmacy Services, Oscar Peace [address] [place] [address] [place] [address] Ccps, [address] [place] [address] 10/06/2024 2:40 PM EST Office Visit [facility] [address] [place] [address] Charley Crane MD [address] [place] [address] Health Maintenance Due Date Last Done Comments Alpha-1 Antitrypsin 1974 CKD PHOS USE SMARTSET 50889 1974 DTap/Tdap Vaccines (1 - Tdap) 1975 [...] COPD 08/14/2025 08/14/2024 CKD HGB USE SMARTSET 08920 09/07/202509/07, 09/07/2024, 06/15/2024, Additional history exists Pneumococcal [...] Advanced care planning/counseling discussion 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
--- OUTSIDE RECORDS SUMMARY | 2024-09-13 13:37 | External Medical Summary | Summary of Care ---
Author Name Unknown Organization [facility] Address [address] [place] [facility] [place] [address] Phone [phone] Care Team Providers Care Fairmont Gold Attendant Name Role Phone Charley Crane MD Primary Care Provider [phone] Reason for Visit * Reason Onset Date Comments Appointment 06/08/2024 Appt Late- Encounter Details Date Type Department Care Team (Late st Contact Info) Description 06/08/2024 Telephone [facility] [address] [place] [address] Steffanie Alfaro PA-C [address] [facility] [place] [address] Appointment (Appt Late- ) Allergies Active Allergy Reactions Criticality Noted Date Comments Cephalexin Other (Please comment) 08/03/2024 Taking it effect his warfarin documented as of this encounter (statuses as of 09/07/2024) Medications Centrum Silver 50+Men Oral Tablet Take [...] 4 Active Carvedilol 3.125 MG Oral Tablet (Coreg)Indicatio ns:Longstanding persistent atrial fibrillation (HCC),Hypertensi on goal BP (blood pressure) < 130/80,Chronic heart failure with preserved ejection fraction (HCC) Take 1 Tablet by mouth 2 times a day with morning and evening meals. 180 Tablet 3 4 Active Ipratropium-Albu terol 0.5-2.5 (3) MG/3ML Inhalation [...] 180 Blister Dosing Unit 3 4 Active documented as of this encounter (statuses as of 09/07/2024) Active Problems Problem Noted Date Diagnosed Date [...] 11/04 Overview: Per COPD GOLD Classification terminal supervisor current use of anticoagulant therapy 0 2023 Longstanding persistent atrial fibrillation 06/29 Assessment & Plan (07/01/2024 9:45 AM EDT): Rate controlled Continue coumadin Hypertension goal BP (blood pressure) < 130/80 0 07/17/2023 Dyslipidemia, goal LDL below 70 07/17/2023 Atherosclerosis of [place] co 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 pectoris 07/05/2023 [...] Patient Monitoring Vendor: [facility] Device(s): Connected Scale [...] as of this encounter (statuses as of 09/07/2024) Resolved Problems Problem Noted Date Diagnosed Date [...] Classes - JULIA Class D - Inhaled Iyovszhgycmuuj-BMEL-AQLZ Combination Inhaler (Sandro) Remote Patient Monitoring Vendor: [facility] Device(s): Continuous Monitoring Device Traditional Scale Self-Management plan High frequency nebulizer treatments every 4-6 hours around the clock Exacerbation plan Chest Xray Additional Comments: On continuous o2 2-3lpm Bipap at night Body mass index (BMI) of 40. 0 to 44.9 in adult 07/08/2023 07/09/2024 Overview: Per Obesity protocol Atherosclerosis of [place] co 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 pectoris 07/05/2023 08/29/2023 Dyspnea 07/04/2023 08/13/2023 Occupational exposure in workplace 07/04/2023 02/14/2024 Chronic congestive heart failure 06/08/2023 07/05/2023 COPD, severe 06/08/2023 07/11/2023 Overview: Per COPD GOLD Classification Chronic hypoxemic respiratory failure 06/08/2023 07/04/2023 Chronic respiratory failure with hypoxia, on home oxygen therapy 06/08/2023 08/29/2023 Diabetes mellitus without complication 06/08/2023 08/29/2023 documented as of this encounter (statuses as of 09/07/2024) Immunizations Name Administration Dates Next Due Pneumococcal [...] encounter Miscellaneous Notes * Telephone Encounter - Laila Collazo OSA - 06/08/2024 11:05 AM EDT Pt called stating that he is going to be about 30mins to an hour late to his appt tomorrow for his 3rd gelsyn injections. Please reach out to pt if this is acceptable. Thank you. documented in this encounter Plan of Treatment Upcoming Encounters Date Type Department Care Team (Late st Contact Info) Description 09/08/2024 6:00 AM EST Anticoagulation Centralized Clinical Pharm[facility], [facility] [place] [address] [place] [address] [place] [address] [facility] [place] [address] 09/10/2024 10:00 AM EST [facility] [address] [place] [address] Michelle Kim, RN [address] [place] [address] 10/06/2024 2:40 PM EST Office Visit [facility] [address] [place] [address] Charley Crane MD [address] [place] [address] Health Maintenance Due Date Last Done Comments Alpha-1 Antitrypsin 1974 CKD PHOS USE SMARTSET 76957 1974 DTap/Tdap Vaccines (1 - Tdap) 1975 [...] 04/28/2024, , 09/09/2023 CKD HGB USE SMARTSET 20983 06/15/202506/15, 06/15/2024, 05/27/2024, Additional history exists Diabetic [...] filedocumented as of this encounter Care Teams Fairmont Gold Attendant Relationship Specialty Start Date End Date Charley Crane MD [address] [place] [address] PCP - General Internal Medicine 06/04/23 documented as of this encounter
--- OUTSIDE RECORDS SUMMARY | 2024-09-13 13:37 | External Medical Summary | Summary of Care ---
Author Name Unknown Organization [facility] Address [address] [facility] [place] [address] Phone [phone] Care Team Providers Care Ice Resurfacing Machine Operators Name Role Phone Charley Crane MD Primary Care Provider Encounter Details Date Type Department Care Team (Late st Contact Info) Description 06/02/2024 Telephone [facility], [facility] [address] [place] [address] Johnathan Ferrer, [address] [place] [phone] Allergies Active Allergy Reactions Criticality Noted Date [...] once daily 180 Tablet 3 01/20/2024 Active Additional Information Patient taking differently: 40 [...] Overview: Per COPD GOLD Classification long term acute care registered nurse current use of anticoagulant therapy 0 2023 Longstanding persistent atrial fibrillation 06/29 Last Assessment & Plan: Rate controlled Continue coumadin Hypertension goal BP (blood pressure) < 130/80 0 07/17/2023 Dyslipidemia, goal LDL below 70 07/17/2023 Atherosclerosis of [place] co 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 pectoris 07/05/2023 [...] Remote Patient Monitoring Vendor: [facility] Device(s): Connected Scale Continuous Monitoring Device Self [...] Classes - JULIA Class D - Inhaled Txfxxhvfldnkpz-ZDHQ-BOND Combination Inhaler (Trellegy) Remote Patient Monitoring Vendor: [facility] Device(s): Continuous Monitoring Device Traditional Scale Self-Management plan High frequency nebulizer treatments every 4-6 hours around the clock Exacerbation plan Chest Xray Additional Comments: On continuous o2 2-3lpm Bipap at night Body mass index (BMI) of 40. 0 to 44.9 in adult 07/08/2023 07/09/2024 Overview: Per Obesity protocol Atherosclerosis of [place] co 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 pectoris 07/05/2023 [...] encounter Miscellaneous Notes * Telephone Encounter - Heron Cortes OSA - 06/02/2024 9:54 AM EDT Reason for patient's call: Missed appt due to being admitted. Pt would like to rescheduled Caller was transferred to [facility] at scheduling. documented in this encounter Plan of Treatment Upcoming Encounters Date Type Department Care Team (Late st Contact Info) Description 09/02/2024 12:00 PM EST Scheduled Telephone [facility] [place], [address] [place] [address] Coordinator, [facility] [place] [address] 09/02/2024 3:00 PM EST Office Visit [facility] 132 [facility] [place] [phone] Audrey Lee DO 132 [facility] [place] [address] 09/07/2024 7:00 AM EST Laboratory Lab Mobile Phlebotomy [facility] [address] [facility] [place] [address] Mvmg, Gml Mobile Home Draw [address] [facility] [place] [address] 09/08/2024 6:00 AM EST Anticoagulation Centralized Clinical Pharmacy Services, Oscar Peace [address] [place] [address] [place] [address] [facility], [address] [place] [address] 09/10/2024 10:00 AM EST [facility] 132 [facility] [place] [address] Michelle Kim, RN [address] [place] [address] 10/06/2024 2:40 PM EST Office Visit [facility] [address] Charley Crane MD [address] [place] [address] Health Maintenance Due Date Last Done Comments Alpha-1 Antitrypsin 1974 CKD PHOS USE SMARTSET 64676 1974 DTap/Tdap Vaccines (1 - Tdap) 1975 [...] 04/28/2024, , 09/09/2023 CKD HGB USE SMARTSET 05901 06/15/202506/15, 06/15/2024, 05/27/2024, Additional history exists Diabetic [...] filedocumented as of this encounter Care Teams Ice Resurfacing Machine Operators Relationship Specialty Start Date End Date Charley Crane MD [address] [place] [address] PCP - General Internal Medicine 06/04/23 documented as of this encounter
--- OUTSIDE RECORDS SUMMARY | 2024-09-13 13:37 | External Medical Summary ---
Author Name Unknown Address Unknown Organization [id number]:LABORATORY [facility] KELSI [address] [place] [address] Laboratory Report Ordering Provider Test Date Status VIRGIL BORREGO 09/07/2024 07:49:00 Final Observation Date Value Abnormality Reference (Units ) Status BUN 09/07/2024 07:49:00 34 Above high normal 6-20 (mg/dL) Final Creatinine 09/07/2024 07:49:00 0.8 0.6-1.2 (mg/dL) Final Glomerular filtration rate/1.73 sq M.predicted [Volume Rate/Area] in Serum, Plasma or Blood by Creatinine-based formula (CKD-EPI) 09/07/2024 07:49:00 >90 >=60 (mL/min) Final eGFR is calculated based on the CKD-EPI 2020 equation. Sodium 09/07/2024 07:49:00 137 135-146 (m mol/L) Final Potassium 09/07/2024 07:49:00 4.5 3.5-5.1 (m mol/L) Final Cl 09/07/2024 07:49:00 92 Below low normal 98- 107 (mmol/L) Final CO2 09/07/2024 07:49:00 34 Above high normal 22 -32 (mmol/L) Final Anion gap 09/07/2024 07:49:00 11 7-15 (mmol /L) Final Glucose 09/07/2024 07:49:00 112 70-120 (mg /dL) Final Calcium 09/07/2024 07:49:00 8.9 8.4-10.2 ( mg/dL) Final Performing Location [facility] [address] [place] [address]
--- OUTSIDE RECORDS SUMMARY | 2024-09-13 13:37 | External Medical Summary ---
Author Name Unknown Address Unknown Organization [id number]:[facility] [place] [address] [facility] [address] Laboratory Report Ordering Provider Test Date Status VIRGIL BORREGO 09/07/2024 07:49:00 Final Observation Date Value Abnormality Reference (Units ) Status SYNC LEUKOCYTES IN BLOOD BY AUTOMATED COUNT 09/07/2024 07:49:00 8.83 4.00-10.80 (K/uL) Final Segs 09/07/2024 07:49:00 72.9 40.0-75.0 (%) Final Lymphs % 09/07/2024 07:49:00 11.1 Below low normal 18.0-42.0 (%) Final Monos 09/07/2024 07:49:00 12.2 Above high normal 1.0-11.0 (%) Final Eosinophils 09/07/2024 07:49:00 2.2 0.0-6.0 (%) Final Basos 09/07/2024 07:49:00 1.0 0.0-2.0 (%) Final Immature Granulocyte, Percent 09/07/2024 07:49:00 0.6 0.0-2.0 (%) Final Absolute Segs 09/07/2024 07:49:00 6.44 1.80-7.70 (K/uL) Final Lymphs, absolute 09/07/2024 07:49:00 0.98 Below low normal 1.00-4.80 (K/ul) Final Monos, Abs 09/07/2024 07:49:00 1.08 0.00-1.10 (K/uL) Final Eos, Abs 09/07/2024 07:49:00 0.19 0.00-0.70 (K/uL) Final Basos, Abs 09/07/2024 07:49:00 0.09 0.00-0.20 (K/uL) Final Immature Granulocytes, Number 09/07/2024 07:49:00 0.05 0.00-0.20 (K/uL) Final Performing Location [facility] [place] [address] [facility] [address]
--- OUTSIDE RECORDS SUMMARY | 2024-09-13 13:37 | External Medical Summary | Summary of Care ---
Author Name Unknown Organization [facility] Address [address] [place] [address] Phone [phone] Care Team Providers Care Plastics Fabricator Name Role Phone Charley Crane MD Primary Care Provider [phone] Encounter Details Date Type Department Care Team (Late st Contact Info) Description 06/04/[address] [facility] [address] [place] [address] Charley Crane MD [address] [place] [address] Allergies Active Allergy Reactions Criticality Noted Date Comments Cephalexin Other (Please comment) 08/03/2024 Taking it effect his warfarin documented as of this encounter (statuses as of 09/03/2024) Medications Medication Sig Dispensed Refills Start Date [...] as of this encounter (statuses as of 09/03/2024) Active Problems Problem Noted Date Diagnosed Date [...] goal LDL below 70 07/17/2023 Atherosclerosis of [place] co 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 pectoris [...] as of this encounter (statuses as of 09/03/2024) Resolved Problems Problem Noted Date Diagnosed Date [...] Classes - JULIA Class D - Inhaled Lhdgmherevaypn-BOBY-BYOK Combination Inhaler (Trellegy) Remote Patient Monitoring Vendor: [facility] Device(s): Continuous Monitoring Device Traditional Scale Self-Management plan High frequency nebulizer treatments every 4-6 hours around the clock Exacerbation plan Chest Xray Additional Comments: On continuous o2 2-3lpm Bipap at night Body mass index (BMI) of 40. 0 to 44.9 in adult 07/08/2023 07/09/2024 Overview: Per Obesity protocol Atherosclerosis of [place] co 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 pectoris [...] as of this encounter (statuses as of 09/03/2024) Immunizations Name Administration Dates Next Due Pneumococcal [...] encounter Miscellaneous Notes * Telephone Encounter - Shreya Choi LPN - 06/04/2024 2:29 PM EDT Received orders from [facility] Health for review by patients PCP and requiring signature. Placed onproviders desk for review. documented in this encounter Plan of Treatment Upcoming Encounters Date Type Department Care Team (Late st Contact Info) Description 09/07/2024 7:00 AM EST Laboratory Lab Mobile Phlebotomy [facility] [address] [place] [address] M[facility], Gml Mobile Home Draw [address] [place] [address] 09/08/2024 6:00 AM EST Anticoagulation Centralized Clinical Pharmacy Services, [facility] Peace [address] [place] [address] [place] [address] [place] [address] 09/10/2024 10:00 AM EST [facility] [address] [place] [address] Michelle Kim, RN 132 [facility] [place] [address] 10/06/2024 2:40 PM EST Office Visit [facility] [place] [address] [place] [address] Charley Crane MD [address] [place] [facility] [place] [address] Health Maintenance Due Date Last Done Comments Alpha-1 Antitrypsin 1974 CKD PHOS USE SMARTSET 26987 1974 DTap/Tdap Vaccines (1 - Tdap) 1975 [...] 04/28/2024, , 09/09/2023 CKD HGB USE SMARTSET 68350 06/15/202506/15, 06/15/2024, 05/27/2024, Additional history exists Diabetic [...] filedocumented as of this encounter Care Teams Plastics Fabricator Relationship Specialty Start Date End Date Charley Crane MD [address] [place] [address] PCP - General Internal Medicine 06/04/23 documented as of this encounter
--- OUTSIDE RECORDS SUMMARY | 2024-09-13 13:37 | External Medical Summary ---
Author Name Unknown Address Unknown Organization [id number]:[facility] [place] [address] [place] [address] Laboratory Report Ordering Provider Test Date Status VIRGIL BORREGO 09/07/2024 07:49:00 Final Observation Date Value Abnormality Reference (Units ) Status Iron 09/07/2024 07:49:00 20 Below low normal 45-176 (ug/dL) Final Iron-binding capacity 09/07/2024 07:49:00 411 250-425 (ug/dL) Final Transferrin Sat % 09/07/2024 07:49:00 5 Below low normal 15-55 (%) Final Performing Location [facility] - [address] [place] [address]
--- OUTSIDE RECORDS SUMMARY | 2024-09-13 13:37 | External Medical Summary ---
Author Name Unknown Address Unknown Organization K01:[facility] [place] [address] [place] [address] Laboratory Report Ordering Provider Test Date Status VIRGIL BORREGO 09/07/2024 07:49:00 Final Observation Date Value Abnormality Reference (Units ) Status Ferritin 09/07/2024 07:49:00 67 30-400 (ng /mL) Final Performing Location [facility] [place] [address] [place] [address]
--- OUTSIDE RECORDS SUMMARY | 2024-09-13 13:37 | External Medical Summary | Summary of Care ---
Author Name Unknown Organization [facility] Address [address] [place] [address] Phone [phone] Care Team Providers Care Ready To Wear Department Manager Name Role Phone Charley Crane MD Primary Care Provider [phone] Reason for Visit * Reason Comments eRx-Medication Refill Encounter Details Date Type Department Care Team (Late st Contact Info) Description 09/03/2024 Refill [facility] [address] [place] [phone] Charley Crane MD [address] [place] [address] Allergies Active Allergy Reactions Criticality [...] tions:COPD, group D, by GOLD 2017 classification (HCC) Take 2 Tablets by mouth in the [...] empagliflozin (ex. Jardiance) Remote Patient Monitoring Vendor: [facility] Device(s): Connected Scale [...] Classes - JULIA Class D - Inhaled Ksghcpwzbxojtb-FPNP-NYVW Combination Inhaler (Trellegy) Remote Patient Monitoring Vendor: [...] encounter Miscellaneous Notes * Telephone Encounter - Yara Rob [facility] - 09/04/2024 11:34 AM ESTRefused Prescriptions: Disp Refills Jardiance 10 MG Oral Tablet (Empagliflozin)90 Tab*0 Sig: TAKE 1TABLET BY MOUTH EVERY MORNINGRefused By: YARA ROB for Refusal: Too soon documented in this encounter Plan of Treatment Upcoming Encounters Date Type Department Care Team (Late st Contact Info) Description 09/07/2024 7:00 AM EST Laboratory Lab Mobile Phlebotomy [facility] [address] [facility] [place] [address] Mvmg, Gml Mobile Home Draw [facility] [place] [address] 09/08/2024 6:00 AM EST Anticoagulation Centralized Clinical Pharmacy Services, [facility] Peace [address] [place] [address] [place] [address] [facility] [place] [address] 09/10/2024 10:00 AM EST [facility] [address] [place] [address] Michelle Kim, RN [address] [place] [address] 10/06/2024 2:40 PM EST Office Visit [facility] [place] [address] [place] [address] Charley Crane MD [address] [place] [address] Health Maintenance Due Date Last Done Comments Alpha-1 Antitrypsin 1974 CKD PHOS USE SMARTSET 14854 1974 DTap/Tdap Vaccines (1 - Tdap) 1975 [...] 04/28/2024, , 09/09/2023 CKD HGB USE SMARTSET 37266 06/15/202506/15, 06/15/2024, 05/27/2024, Additional history exists Diabetic [...] filedocumented as of this encounter Care Teams Ready To Wear Department Manager Relationship Specialty Start Date End Date Charley Crane MD [address] [place] [address] PCP - General Internal Medicine 06/04/23 documented as of this encounter
--- OUTSIDE RECORDS SUMMARY | 2024-09-13 13:37 | External Medical Summary ---
Author Name Unknown Address Unknown Organization K01:[facility] [place] [facility] [place] [address] Laboratory Report Ordering Provider Test Date Status VIRGIL BORREGO 09/07/2024 07:49:00 Final Observation Date Value Abnormality Reference (Units ) Status WBC, Total 09/07/2024 07:49:00 8.83 4.00-10.8 0 (K/uL) Final RBC 09/07/2024 07:49:00 3.42 4.50-5.25 (M/uL) Final Hemoglobin 09/07/2024 07:49:00 9.5 Below low normal 14 .0-16.8 (g/dL) Final Anemia reflex testing trigge rs on a HGB < 12.0 for Females and HGB < 13.0 for Males in accordance with the WHO Anemia Guidelines
Anemia reflex testing triggers on a HGB < 12.0 for Females and HGB < 13.0 for Males in accordance with the WHO Anemia Guidelines HCT 09/07/2024 07:49:00 32.9 Below low normal 40. 0-48.4 (%) Final MCV 09/07/2024 07:49:00 96.2 82.0-99.5 (fL) Final MCH 09/07/2024 07:49:00 27.8 27.0-34.0 (pg) Final MCHC 09/07/2024 07:49:00 28.9 32.0-36.0 (g/dL) Final RDW 09/07/2024 07:49:00 15.9 11.5-15.5 (%) Final Platelets 09/07/2024 07:49:00 268 140-400 (K /uL) Final MPV 09/07/2024 07:49:00 9.9 6.6-11.1 ( fL) Final Nucleated erythrocytes/100 leukocytes [Ratio] in Blood by Automated count 09/07/2024 07:49:00 0 <=0 (/100 WBCs) Final Performing Location LABORATORY [facility] - [address] [facility] [address]
--- OUTSIDE RECORDS SUMMARY | 2024-09-13 13:37 | External Medical Summary | Summary of Care ---
Author Name Unknown Organization [facility] Address [address] [place] [address] Phone [phone] Care Team Providers Care Manager Trainee Name Role Phone Charley Crane MD Primary Care Provider [phone] Reason for Visit * Reason Onset Date Comments [facility]: Maintenance 09/01/2024 Encounter Details Date Type Department Care Team (Late st Contact Info) Description 09/01/2024 Telephone [facility] [place] [address] [place] [phone] Kael, Andrew, CRISTOFER [address] [place], [place] [phone] [facility]: Maintenance Allergies Active Allergy [...] goal LDL below 70 07/17/2023 Atherosclerosis 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 Jardiance) Remote Patient Monitoring Vendor: [facility] Device(s): Connected Scale Continuous Monitoring Device Self [...] Classes - JULIA Class D - Inhaled Scdjtcqhafezdt-NDSW-CIOE Combination Inhaler (Sandro) Remote Patient Monitoring Vendor: [facility] Device(s): Continuous Monitoring Device Traditional Scale Self-Management plan High frequency nebulizer treatments every 4-6 hours around the clock Exacerbation plan Chest Xray Additional Comments: On continuous o2 2-3lpm Bipap at night Body mass index (BMI) of 40. 0 to 44.9 in adult 07/08/2023 07/09/2024 Overview: Per Obesity protocol Atherosclerosis of [place] co 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 pectoris 07/05/2023 [...] Telephone Encounter - Andrew Scruggs OSA - 09/01/2024 10:35 AM EST PC from nurse Britany [phone] stating she was calling because pt is requesting wound care orders. Britany states she is recommending calomel to be continued so this can be monitored by . Routing to care team. documented in this encounter Plan of Treatment Upcoming Encounters Date Type Department Care Team (Late st Contact Info) Description 09/02/2024 12:00 PM EST Scheduled Telephone [facility] [place], [facility] [address] [place] [address] Coordinator, Xiomara Angel [facility] [address] [place] [address] 09/02/2024 3:00 PM EST Office Visit [facility] [address] [place] [phone] Audrey Lee DO [address] [place] [address] 09/07/2024 7:00 AM EST Laboratory [facility] [facility] [address] [facility] G[facility] Mobile Home Draw [address] [facility] [place] [address] 09/08/2024 6:00 AM EST Anticoagulation Centralized Clinical Pharmacy Services, [facility] Peace [address] [place] [address] [place] [address] [place] [address] 09/10/2024 10:00 AM EST [facility], [facility] 132 [facility] [place] [address] Michelle Kim, RN [address] [place] [address] 10/06/2024 2:40 PM EST Office [address] [address] Charley Crane MD [address] [facility] [address] Health Maintenance Due Date Last Done Comments Alpha-1 Antitrypsin 1974 CKD PHOS USE SMARTSET 85508 1974 DTap/Tdap Vaccines (1 - Tdap) 1975 [...] 04/28/2024, , 09/09/2023 CKD HGB USE SMARTSET 95663 06/15/202506/15, 06/15/2024, 05/27/2024, Additional history exists Diabetic [...] filedocumented as of this encounter Care Teams Manager Trainee Relationship Specialty Start Date End Date Charley Crane MD [address] [place] [facility] [place] [address] PCP - General Internal Medicine 06/04/23 documented as of this encounter
--- OUTSIDE RECORDS SUMMARY | 2024-09-13 13:37 | External Medical Summary ---
Author Name Unknown Address Unknown Organization [id number]:LAB[facility]ATORY [facility] [place] [address] [place] [address] Laboratory Report Ordering Provider Test Date Status VIRGIL BORREGO 09/07/2024 07:49:00 Final Observation Date Value Abnormality Reference (Units ) Status Folic Acid 09/07/2024 07:49:00 19.8 >4.5 (ng/ mL) Final Performing Location LABORATORY [facility] - [address] [place] [address]
--- OUTSIDE RECORDS SUMMARY | 2024-09-13 13:37 | External Medical Summary ---
Author Name Unknown Address Unknown Organization [id number]:[facility]ATORY [facility] [address] [place] [address] Laboratory Report Ordering Provider Test Date Status NAVARROSANCHORADU 09/07/2024 07:49:00 Final Standing order for pt/inr. < br/>Please draw pt/inr every 1 to 4 weeks as requested
Results to [facility]

Warfarin Therapy
INR: 2.0-3.0 conventional anticoagulation
INR: 2.5-3.5 high intensity anticoagulation Observation Date Value Abnormality Reference (Units ) Status PT 09/07/2024 07:49:00 26.3 Above high normal 11 .6-15.2 (seconds) Final INR 09/07/2024 07:49:00 2.4 Above high normal 0. 8-1.2 Final Performing Location [facility] [address] [place] [address]
--- OUTSIDE RECORDS SUMMARY | 2024-09-13 13:37 | External Medical Summary | Summary of Care ---
Author Name Unknown Organization [facility] Address [address] [place] [address] Phone [phone] Care Team Providers Care Casket Inspector Name Role Phone Charley Crane MD Primary Care Provider [phone] Reason for Visit * Reason Onset Date Comments Medication Refill 09/03/2024 Encounter Details Date Type Department Care Team (Late st Contact Info) Description 09/03/2024 Refill [facility] [address] [place] [phone] Charley Crane MD [address] [place] [address] Hypertension goal BP (blood pressure) < 130/80 Allergies Active Allergy Reactions Criticality Noted Date [...] tions:COPD, group D, by GOLD 2017 classification ([facility]) Take 2 Tablets by mouth [...] morning. 90 Tablet 2 09/04/20 24 Active Enalapril Maleate 2.5 MG Oral Tablet (Vasotec)Indicati ons:Hypertension goal BP (blood pressure) < 130/80 Take 1 Tablet by mouth in the morning. 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 0 2023 Longstanding persistent atrial fibrillation 06/29 Assessment & Plan (07/01/2024 9:45 AM EDT): Rate controlled Continue coumadin Hypertension goal BP (blood pressure) < 130/80 0 07/17/2023 Dyslipidemia, goal LDL below 70 07/17/2023 Atherosclerosis of [place] co 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 pectoris 07/05/2023 [...] Classes - JULIA Class D - Inhaled Xonynrhctgsgtg-KDQB-ONAA Combination Inhaler (Trellegy) Remote Patient Monitoring Vendor: Current Health Device(s): Continuous Monitoring Device Traditional Scale Self-Management plan High frequency nebulizer treatments every 4-6 hours around the clock Exacerbation plan Chest Xray Additional Comments: On continuous o2 2-3lpm Bipap at night Body mass index (BMI) of 40. 0 to 44.9 in adult 07/08/2023 07/09/2024 Overview: Per Obesity protocol Atherosclerosis of [place] co 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 pectoris 07/05/2023 [...] Used Date Smoking Tobacco: Former Cigarettes 1 983 - 2013 Passive Smoke Exposure: Past Smokeless Tobacco: Former [...] encounter Miscellaneous Notes * Telephone Encounter - Remi Malagon [facility] - 09/04/2024 10:29 AM ESTSigned Prescriptions: Disp Refills Enalapril Maleate 2.5 MG Oral Tablet (Vaso*90 Tab*2 Sig: Take 1 Tablet by mouth in the morning. Authorizing Provider: CHARLEY CRANE Ordering User: REMI MALAGON * Telephone Encounter - Magui Lou [facility] - 09/03/2024 11:18 AM EST Patient is requesting a 90-day supply, pre-edited RXs as such. Please review and approve if appropriate. Pending Prescriptions: Disp Refills Enalapril Maleate 2.5 MG Oral Tablet (Vas*90 Tab*2 Sig: Take 1 Tablet by mouth in the morning. Last Visit: 08/03/2024 (in office), Visit date not found (telemedicine) Visit date not found If no future appointments scheduled, and last appointment is greater than a year ago, please schedule patient for an appointment Last date the medication was ordered: [id number] Patient Phone Numbers Labs: Lab Results Component Value Date/Time CREAT 0.9 06/15/2024 02:40 PM POTASSIUM 4.4 06/15/2024 02:40 PM TSH 2.18 06/21/2023 12:33 PM LDL 84 02/10/2024 01:36 PM ALT 19 06/15/2024 02:40 PM HGBA1C 6.2 (H) 06/15/2024 02:40 PM documented in this encounter Plan of Treatment Upcoming Encounters Date Type Department Care Team (Late st Contact Info) Description 09/07/2024 7:00 AM EST Laboratory Lab Mobile [facility]le[facility]omy [facility] [address] [facility] [place] [address] [facility], G[facility] Mobile Home Draw [address] [facility] [place] [address] 09/08/2024 6:00 AM EST Anticoagulation Centralized Clinical Pharmacy Services, Oscar Peace [address] [place] [address] [place] [address] [facility], [address] [place] [address] 09/10/2024 10:00 AM EST [facility] [address] [facility] [place] [address] Michelle Kim, RN [address] [place] [address] 10/06/2024 2:40 PM EST Office Visit Family [facility] [address] [place] [address] Charley Crane MD [address] [place] [address] Health Maintenance Due Date Last Done Comments Alpha-1 Antitrypsin 1974 CKD PHOS USE SMARTSET 02230 1974 DTap/Tdap Vaccines (1 - Tdap) 1975 [...] 04/28/2024, , 09/09/2023 CKD HGB USE SMARTSET 69992 06/15/202506/15, 06/15/2024, 05/27/2024, Additional history exists Diabetic [...] Advanced care planning/counseling discussion Other specified counseling Hypertension goal BP (blood pressure) < 130/80 Unspecified essential hypertension documented in this encounter Care Teams Casket Inspector Relationship Specialty Start Date End Date Charley Crane MD [address] [facility] [place] [address] PCP - General Internal Medicine 06/04/23 documented as of this encounter
--- OUTSIDE RECORDS SUMMARY | 2024-09-13 13:37 | External Medical Summary ---
Author Name Unknown Address Unknown Organization K01:LABORATORY [facility] [place] - [address] [place] [address] Laboratory Report Ordering Provider Test Date Status VIRGIL BORREGO 09/07/2024 07:49:00 Final Observation Date Value Abnormality Reference (Units ) Status Vitamin B12 09/07/2024 07:49:00 [phone] (pg/mL) Final Performing Location LABORATORY [facility] [place] - [address] [place] [address]
--- OUTSIDE RECORDS SUMMARY | 2024-09-13 13:37 | External Medical Summary | Summary of Care ---
Author Name Unknown Organization [facility] Address [address] [place] [address] Phone [phone] Care Team Providers Care Veneer Clipper Name Role Phone Charley Crane MD Primary Care Provider [phone] Reason for Visit * Reason Onset Date Comments Encounter Created in Error 09/04/2024 Encounter Details Date Type Department Care Team (Late st Contact Info) Description 09/04/2024 Telephone [facility], [place] [address] [place] [address] [place], [place], C[facility]ER [address], [place] [id number] Encounter Created in Error Allergies Active Allergy Reactions Criticality Noted Date [...] tions:COPD, group D, by GOLD 2017 classification ([facility]) Take 2 Tablets by mouth [...] goal LDL below 70 07/17/2023 Atherosclerosis of [place] co 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 pectoris 07/05/2023 [...] Classes - JULIA Class D - Inhaled Jwppekmbvwtnpf-ULDW-NDAN Combination Inhaler (Trellegy) Remote Patient Monitoring Vendor: Current Health Device(s): Continuous Monitoring Device Traditional Scale Self-Management plan High frequency nebulizer treatments every 4-6 hours around the clock Exacerbation plan Chest Xray Additional Comments: On continuous o2 2-3lpm Bipap at night Body mass index (BMI) of 40. 0 to 44.9 in adult 07/08/2023 07/09/2024 Overview: Per Obesity protocol Atherosclerosis of [place] co 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 pectoris 07/05/2023 [...] [address] [facility] [place] [address] M[facility], Gml Mobile Home Draw [address] [facility] [place] [address] 09/08/2024 6:00 AM EST Anticoagulation Centralized Clinical Pharmacy Services, Oscar Peace [address] [place] [address] [place] [address] [facility], [address] [place] [address] 09/10/2024 10:00 AM EST [facility] Visit [facility], [facility] 132 [facility] [place] [address] Michelle Kim RN 132 [facility] [place] [address] 10/06/2024 2:40 PM EST Office Visit [facility] [address] [place] [address] Charley Crane MD [address] [place] [address] Health Maintenance Due Date Last Done Comments Alpha-1 Antitrypsin 1974 CKD PHOS USE SMARTSET 08541 1974 DTap/Tdap Vaccines (1 - Tdap) 1975 [...] 04/28/2024, , 09/09/2023 CKD HGB USE SMARTSET 11462 06/15/202506/15, 06/15/2024, 05/27/2024, Additional history exists Diabetic [...] filedocumented as of this encounter Care Teams Veneer Clipper Relationship Specialty Start Date End Date Charley Crane MD [address] [place] [address] PCP - General Internal Medicine 06/04/23 documented as of this encounter
--- OUTSIDE RECORDS SUMMARY | 2024-09-13 13:38 | External Medical Summary | Summary of Care ---
Author Name Unknown Organization [facility] Address [address] [place] [address] Phone [phone] Care Team Providers Care Crt Name Role Phone Charley Crane MD Primary Care Provider [phone] Encounter Details Date Type Department Care Team (Late st Contact Info) Description 08/28/2024 Telephone Pharmacy, [facility] [address] [place] [address] [facility] [address] [place] [address] Allergies Active Allergy Reactions Criticality Noted Date Comments Cephalexin Other (Please comment) 08/03/2024 Taking it effect his warfarin documented as of this encounter (statuses as of 08/28/2024) Medications Medication Sig Dispensed Refills Start Date [...] ons:COPD, group D, by GOLD 2017 classification ([facility]) Take 2 Tablets by mouth in the [...] as of this encounter (statuses as of 08/28/2024) Active Problems Problem Noted Date Diagnosed Date [...] (ex. Jardiance) Remote Patient Monitoring Vendor: [facility] Device(s): Connected Scale Continuous Monitoring Device Self [...] as of this encounter (statuses as of 08/28/2024) Resolved Problems Problem Noted Date Diagnosed Date [...] Classes - JULIA Class D - Inhaled Gthejlmldwlaqj-TAZX-WXHA Combination Inhaler (Sandro) Remote Patient Monitoring Vendor: [...] as of this encounter (statuses as of 08/28/2024) Immunizations Name Administration Dates Next Due Pneumococcal [...] encounter Miscellaneous Notes * Telephone Encounter - Renata Knight RPh - 08/28/2024 8:50 AM EDT error documented in this encounter Plan of Treatment Upcoming Encounters Date Type Department Care Team (Late st Contact Info) Description 08/28/2024 9:45 AM EDT Scheduled Telephone ising at [place], [address] [place] [address] Coordinator, [facility] [address] [place] [address] 08/29/2024 1:00 PM EDT Scheduled Telephone [facility], [facility] [address] [place] [address] Region, Nurse [place] [address] [facility] [place] [address] 09/02/2024 3:00 PM EST Office Visit [facility] 132 [facility] [place] [phone] Audrey Lee [address] [place] [address] 09/07/2024 7:00 AM EST Laboratory Lab Mobile Phlebotomy [facility] [address] [facility] [place] [address] [facility], Gml Mobile Home Draw [address] [facility] [address] 09/08/2024 6:00 AM EST Anticoagulation Centralized Clinical Pharmacy Services, Oscar Peace [address] [place] [address] [place] [address] [facility] [place] [address] 09/10/2024 10:00 AM EST Home Visit [facility], [facility] 132 [facility] [place] [address] Michelle Kim, RN [address] [place] [address] 10/06/2024 2:40 PM EST Office Visit [facility] 226 [facility] [place] [address] Charley Crane MD [address] [facility] [place] [phone] Health Maintenance Due Date Last Done Comments Alpha-1 Antitrypsin 1974 CKD PHOS USE SMARTSET 40888 1974 DTap/Tdap Vaccines (1 - Tdap) 1975 [...] 04/28/2024, , 09/09/2023 CKD HGB USE SMARTSET 18008 06/15/202506/15, 06/15/2024, 05/27/2024, Additional history exists Diabetic [...] filedocumented as of this encounter Care Teams Crt Relationship Specialty Start Date End Date Charley Crane MD [address] [place] [address] PCP - General Internal Medicine 06/04/23 documented as of this encounter
--- OUTSIDE RECORDS SUMMARY | 2024-09-13 13:38 | External Medical Summary | Summary of Care ---
Author Name Unknown Organization [facility] Address [address] [place] [facility] [place] [address] Phone [phone] Care Team Providers Care Gold Miner Name Role Phone Charley Crane MD Primary Care Provider [phone] Reason for Visit * Reason Onset Date Comments [facility]: Maintenance 08/28/2024 Encounter Details Date Type Department Care Team (Late st Contact Info) Description 08/28/2024 9:45 AM EDT Scheduled Telephone [facility], [facility] 132 [facility] [place] [address] Coordinator, [facility] 132 [facility] [place] [address] Allergies Active Allergy Reactions Criticality Noted Date [...] mouth in the morning. 90 Tablet 3 Active Spironolactone 25 MG Oral Tablet (Aldactone) [...] D, by GOLD 2017 classification ([facility]) Take 2 Tablets by mouth [...] goal LDL below 70 07/17/2023 Atherosclerosis of [place] co 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 Jardiance) Remote Patient Monitoring Vendor: [facility] Device(s): Connected Scale Continuous Monitoring [...] Classes - JULIA Class D - Inhaled Qojboopmtvgtpg-YWLP-MDST Combination Inhaler (Sandro) Remote Patient Monitoring Vendor: Current Health Device(s): Continuous Monitoring Device Traditional Scale Self-Management plan High frequency nebulizer treatments every 4-6 hours around the clock Exacerbation plan Chest Xray Additional Comments: On continuous o2 2-3lpm Bipap at night Body mass index (BMI) of 40. 0 to 44.9 in adult 07/08/2023 07/09/2024 Overview: Per Obesity protocol Atherosclerosis of [place] co 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 pectoris 07/05/2023 [...] encounter Miscellaneous Notes * Telephone Encounter - Romel Persaud MD - 08/28/2024 8:44 AM EDT Noted. Pending PC tomorrow may need broader abx if no improvement at that time. E * Telephone Encounter - Haily Baca RN - 08/28/2024 8:16 AM EDT [facility] Telephonic Nurse Follow-Up Call [facility] Subprogram: Primary Care at Home Follow Up Call Type: 48 hour follow up Acute issue requiring follow-up call: Acute Exacerbation of COPD Objective: 08/14/2024 10:53 AM 08/03/2024 1:53 PM 07/31/2024 12:03 PM 07/09/2024 9:34 AM 07/01/2024 9:18 AM VITALS ACROSS ENCOUNTERS BP 116/60 122/60 110/64 102/54 122/84 Pulse 68 66 64 50 63 Weight 135.2 kg BMI 46.67 kg/m2 Remote Patient Monitoring: NONE Oxygen Needs: NO CHANGE from baseline supplemental oxygen needs DME Needs: Nebulizer machine and supplies Medications: New medication(s) added: Prednisone 40 mg x 5 days started on 03/26 Zpak started today Subjective: Condition Status: Worsening of symptoms Current Concerns: Phone call from patient stating he started his Prednisone rescue medication on 08/26 and was told to start the Zpack if purulent sputum develops. Patient states his sputum is "dark thick yellow today" so he is calling to let [facility] know he is starting the Zpack. His oxygen is on at 2.5 liters Ox sat 95-97% Denies any chest pain, wheezing, fever or chills. He is taking Mucinex q 12 hours and using his nebulizer. Patient is reminded to contact [facility] about coumadin dosing while taking the Zpack. TT sent to [facility] pharmacy Disposition: Routed to [facility] and/or [facility] Care Team for further advice Another follow up phone call tomorrow scheduled Future Visits Scheduled: Future Appointments-next 60 days Date/Time Provider Specialty Dept Phone 08/28/2024 9:45 AM [facility] [phone] 09/02/2024 3:00 PM (Arrive by 2:45 PM) Audrey Lee, Sleep Disorders [phone] 09/07/2024 7:00 AM [facility], [facility] Mobile Home Draw Laboratory Processing [phone] 09/08/2024 6:00 AM [facility] [phone] 09/10/2024 10:00 AM Michelle Kim, RN [facility] [phone] 10/06/2024 2:40 PM (Arrive by 2:25 PM) Charley Crane MD Family Medicine [phone] Haily Baca RN [facility] Registered Nurse Navigator Triage documented in this encounter Plan of Treatment Upcoming Encounters Date Type Department Care Team (Late st Contact Info) Description 08/29/2024 1:00 PM EDT Scheduled Telephone [facility], [facility] 132 [facility] [place] [address] [facility], Nurse [facility] 132 [facility] [place] [address] 09/02/2024 3:00 PM EST Office Visit [facility] Disorders Ctr [facility] 132 [facility] [place] [phone] Audrey Lee DO [facility] [place] [address] 09/07/2024 7:00 AM EST Laboratory Lab Mobile Phlebotomy [facility] [address] [facility] [place] [address] M[facility], Gml Mobile Home Draw [address] [facility] [place] [address] 09/08/2024 6:00 AM EST Anticoagulation Centralized Clinical Pharmacy Services, Oscar Peace [address] [place] [address] [place] [address] [place] [address] 09/10/2024 10:00 AM EST Home Visit [facility], [facility] 132 [facility] [place] [address] Michelel Kim RN [address] [place] [address] 10/06/2024 2:40 PM EST Office Visit [facility], [facility] 226 [facility] [place] [address] Charley Crane MD [address] [facility] [place] [address] Health Maintenance Due Date Last Done Comments Alpha-1 Antitrypsin 1974 CKD PHOS USE SMARTSET 37431 1974 DTap/Tdap Vaccines (1 - Tdap) 1975 [...] 04/28/2024, , 09/09/2023 CKD HGB USE SMARTSET 49002 06/15/202506/15, 06/15/2024, 05/27/2024, Additional history exists Diabetic [...] filedocumented as of this encounter Care Teams Gold Miner Relationship Specialty Start Date End Date Charley Crane MD [address] [place] [address] PCP - General Internal Medicine 06/04/23 documented as of this encounter
--- OUTSIDE RECORDS SUMMARY | 2024-09-13 13:38 | External Medical Summary | Summary of Care ---
Author Name Unknown Organization [facility] Address [address] [place] [address] Phone [phone] Care Team Providers Care Irrigation Tax Assessor Collector Name Role Phone Charley Crane MD Primary Care Provider [phone] Reason for Visit * Reason Onset Date Comments [facility]: Maintenance 08/31/2024 Encounter Details Date Type Department Care Team (Late st Contact Info) Description 08/31/2024 Telephone [facility], [facility] [address] Isabel Marquez RN [address] [place] [address] [facility]: Maintenance Allergies Active Allergy Reactions Criticality Noted Date Comments Cephalexin Other (Please comment) 08/03/2024 Taking it effect his warfarin documented as of this encounter (statuses as of 08/31/2024) Medications Medication Sig Dispensed Refills Start Date [...] as of this encounter (statuses as of 08/31/2024) Active Problems Problem Noted Date Diagnosed Date [...] classification 11/04 Overview: 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 COPD 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 Classification 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 0 2023 Longstanding persistent atrial fibrillation 06/29 Last Assessment & Plan: Rate controlled Continue coumadin Hypertension goal BP (blood pressure) < 130/80 0 07/17/2023 Dyslipidemia, goal LDL below 70 07/17/2023 Atherosclerosis of [place] co 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 pectoris 07/05/2023 [...] as of this encounter (statuses as of 08/31/2024) Resolved Problems Problem Noted Date Diagnosed Date [...] Classes - JULIA Class D - Inhaled Kgpogiqjlevhre-FEHW-NQHF Combination Inhaler (Silverkylie) Remote Patient Monitoring Vendor: Current Health Device(s): Continuous Monitoring Device Traditional Scale Self-Management plan High frequency nebulizer treatments every 4-6 hours around the clock Exacerbation plan Chest Xray Additional Comments: On continuous o2 2-3lpm Bipap at night Body mass index (BMI) of 40. 0 to 44.9 in adult 07/08/2023 07/09/2024 Overview: Per Obesity protocol Atherosclerosis of [place] co 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 pectoris 07/05/2023 08/29/2023 Dyspnea 07/04/2023 08/13/2023 Occupational exposure in workplace 07/04/2023 02/14/2024 Chronic congestive heart failure 06/08/2023 07/05/2023 COPD, severe 06/08/2023 07/11/2023 Overview: Per COPD GOLD Classification Chronic hypoxemic respiratory failure 06/08/2023 07/04/2023 Chronic respiratory failure with hypoxia, on home oxygen therapy 06/08/2023 08/29/2023 Diabetes mellitus without complication 06/08/2023 08/29/2023 documented as of this encounter (statuses as of 08/31/2024) Immunizations Name Administration Dates Next Due Pneumococcal [...] Telephone Encounter - Isabel Marquez RN - 08/31/2024 12:02 PM EST Patient left message requesting return call. Return call placed. No answer. Left VM asking for return call back. documented in this encounter Plan of Treatment Upcoming Encounters Date Type Department Care Team (Late st Contact Info) Description 09/02/2024 3:00 PM EST Office Visit [facility] Ctr [facility] [address] [place] [phone] Audrey Lee DO [address] [place] [address] 09/07/2024 7:00 AM EST Laboratory Lab Mobile Phlebotomy [facility] 2520 [facility] [place] [address] [facility], Gml Mobile Home Draw [address] [facility] [place] [address] 09/08/2024 6:00 AM EST Anticoagulation Centralized Clinical Pharmacy Services, [place] Peace [address] [place] [address] [place] [address] [place] [address] 09/10/2024 10:00 AM EST Home Visit [facility], [facility] [address] [place] [address] Michelle Kim RN [address] [place] [address] 10/06/2024 2:40 PM EST Office Visit [facility] [address] [place] [address] Charley Crane MD [address] [place] [address] Health Maintenance Due Date Last Done Comments Alpha-1 Antitrypsin 1974 CKD PHOS USE SMARTSET 15208 1974 DTap/Tdap Vaccines (1 - Tdap) 1975 [...] 04/28/2024, , 09/09/2023 CKD HGB USE SMARTSET 80852 06/15/202506/15, 06/15/2024, 05/27/2024, Additional history exists Diabetic [...] as of this encounter Care Teams Irrigation Tax Assessor Collector Relationship Specialty Start Date End Date Charley Crane MD [address] [place] [address] PCP - General Internal Medicine 06/04/23 documented as of this encounter
--- OUTSIDE RECORDS SUMMARY | 2024-09-13 13:38 | External Medical Summary | Summary of Care ---
Author Name Unknown Organization [facility] Address [address] [place] [address] Phone [phone] Care Team Providers Care Wash Helper Name Role Phone Charley Crane MD Primary Care Provider [phone] Encounter Details Date Type Department Care Team (Late st Contact Info) Description 08/28/2024 Telephone Pharmacy, [facility] [address] [place] [address] [facility] [address] [place] [address] Allergies Active Allergy Reactions Criticality Noted Date [...] ons:COPD, group D, by GOLD 2017 classification ([facility]) Take 2 Tablets by mouth in [...] goal LDL below 70 07/17/2023 Atherosclerosis of [place] co 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 Jardiance) Remote Patient Monitoring Vendor: [facility] Device(s): Connected Scale Continuous Monitoring Device Self [...] Classes - JULIA Class D - Inhaled Oizzmfyfmtcxtf-JGHQ-WEND Combination Inhaler (Sandro) Remote Patient Monitoring Vendor: [facility] Device(s): Continuous Monitoring Device Traditional Scale Self-Management plan High frequency nebulizer treatments every 4-6 hours around the clock Exacerbation plan Chest Xray Additional Comments: On continuous o2 2-3lpm Bipap at night Body mass index (BMI) of 40. 0 to 44.9 in adult 07/08/2023 07/09/2024 Overview: Per Obesity protocol Atherosclerosis of [place] co ronary artery without angina pectoris 07/05/2023 [...] Encounter - Renata Knight RPh - 08/28/2024 8:48 AM EDT Received message that patient is starting prednisone for 5 days and a Z pack today for COPD. Routedmessage to [facility] MTM. Renata Knight PharmD Clinical Pharmacist 08/28/2024 8:49 AM documented in this encounter Plan of Treatment Upcoming Encounters Date Type Department Care Team (Late st Contact Info) Description 08/28/2024 9:45 AM EDT Scheduled Telephone [facility], [address] [place] [address] Coordinator, [address] [place] [address] 08/29/2024 1:00 PM EDT Scheduled Telephone [facility], [address] [place] [address] Region, Nurse [address] [place] [address] 09/02/2024 3:00 PM EST Office Visit [facility] [address] [place] [phone] Audrey Lee DO [address] [facility] [place] [address] 09/07/2024 7:00 AM EST Laboratory [facility] [address] [facility] [facility] [address] 09/08/2024 6:00 AM EST Anticoagulation Centralized Clinical Pharmacy Services, Oscar [address] [place] [address] [place] [address] 09/10/2024 10:00 AM EST Home Visit [facility], [address] [place] [address] Michelle Kim, RN [address] [place] [address] 10/06/2024 2:40 PM EST Office Visit Family Practice, [facility] [address] [facility] [place] [address] Charley Crane MD [address] [place] [address] Health Maintenance Due Date Last Done Comments Alpha-1 Antitrypsin 1974 CKD PHOS USE SMARTSET 34813 1974 DTap/Tdap Vaccines (1 - Tdap) 1975 [...] 04/28/2024, , 09/09/2023 CKD HGB USE SMARTSET 77330 06/15/202506/15, 06/15/2024, 05/27/2024, Additional history exists Diabetic [...] filedocumented as of this encounter Care Teams Wash Helper Relationship Specialty Start Date End Date Charley Crane MD [address] [place] [address] PCP - General Internal Medicine 06/04/23 documented as of this encounter
--- OUTSIDE RECORDS SUMMARY | 2024-09-13 13:38 | External Medical Summary | Summary of Care ---
Author Name Unknown Organization [facility] Address [address] [place] [place] [address] Phone [phone] Care Team Providers Care Verse Writer Name Role Phone Charley Crane MD Primary Care Provider [phone] Reason for Visit * Reason Onset Date Comments [facility]: Maintenance 08/14/2024 Encounter Details Date Type Department Care Team (Late st Contact Info) Description 08/14/2024 Telephone [facility], [facility] 132 [facility] [place] [address] Michelle Kim, RN 132 [place] [address] [facility]: Maintenance Allergies Active Allergy [...] ions:COPD, group D, by GOLD 2017 classification ([facility] [...] Active Enalapril Maleate 2.5 MG Oral Tablet (Vasotec)Indicatio ns:Hypertension goal BP (blood pressure) < 130/80 Take 1 Tablet by mouth in the morning. 30 Tablet 11 4 Active Diclofenac Sodium 1 % External Gel (Voltaren) Apply 1 Application topically to affected area in the morning and 1 Application before bedtime. Apply to knees and shoulders. 100 g 1 4 Active Warfarin Sodium 10 MG Oral Tablet (Coumadin) Take 1 to 1.5 tablets by mouth every day in the evening or as directed by the anticoagulation clinic. 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 0 2023 Longstanding persistent atrial fibrillation 06/29 Last Assessment & Plan: Rate controlled Continue coumadin Hypertension goal BP (blood pressure) < 130/80 0 07/17/2023 Dyslipidemia, goal LDL below 70 07/17/2023 Atherosclerosis of [place] co ronary artery without [...] Classes - JULIA Class D - Inhaled Atnmuwewjbcyeq-JKQA-HFFD Combination Inhaler (Sandro) Remote Patient Monitoring Vendor: [facility] Device(s): Continuous Monitoring Device Traditional Scale Self-Management plan High frequency nebulizer treatments every 4-6 hours around the clock Exacerbation plan Chest Xray Additional Comments: On continuous o2 2-3lpm Bipap at night Body mass index (BMI) of 40. 0 to 44.9 in adult 07/08/2023 07/09/2024 Overview: Per Obesity protocol Atherosclerosis of [place] [...] No 07/17/2024 Does the household have a [facility] source of income? (Household - for [...] encounter Miscellaneous Notes * Telephone Encounter - Citlalli Stoll LPN - 08/28/2024 2:22 PM EDT left message on machine for pt to call office * Telephone Encounter - Sanjana Hoyt LPN - 08/26/2024 8:59 AM EDT Left message on machine to return call. Please see message below. * Telephone Encounter - Charley Crane MD - 08/21/2024 2:57 PM EDT If his leg swelling is better, ok to try daily And if leg swelling recurs, please go back to twice daily * Telephone Encounter - Johana Kennedy LPN - 08/21/2024 2:33 PM EDT Patient has been informed of below message and verbalized understanding. He is still on a fluid pill twice a day since he was discharged from the hospital. Should he still be on this dose? Would you like for him to decrease? * Telephone Encounter - Charley Crane MD - 08/18/2024 2:12 PM EDT Kidney function was not done It was only for INR regular check up Ok to check kidney function and cell count within a month Non fasting please * Telephone Encounter - Michelle Kim RN - 08/14/2024 11:[address] Crane, Pt was asking about his blood work. He is asking how his kidneys are doing being on the new increased dose of torsemide. I'm not seeing anything ordered besides INR. Did you want his bmp checked anytime soon? If so, can send to mobile phlebotomy as they already come to get his INR. Thank you!! documented in this encounter Plan of Treatment Upcoming Encounters Date Type Department Care Team (Late st Contact Info) Description 08/29/2024 1:00 PM EDT Scheduled Telephone [facility] [place], [facility] [address] [place] [address] [facility], Nurse [facility] [address] [place] [address] 09/02/2024 3:00 PM EST Office Visit [facility] Disorders Ctr [facility] [address] [place] [phone] Audrey Lee DO [address] [place] [address] 09/07/2024 7:00 AM EST Laboratory Lab [facility] [address] [facility] [place] [address] M[facility], Gml Mobile Home Draw [address] [facility] [place] [address] 09/08/2024 6:00 AM EST Anticoagulation Centralized Clinical Pharmacy Services, Oscar Peace [address] [place] [address] [place] [address] [place] [address] 09/10/2024 10:00 AM EST [facility] [address] [place] [address] Michelle Kim RN [address] [place] [address] 10/06/2024 2:40 PM EST Office Visit [facility] 226 [facility] [place] [address] Charley Crane MD [address] [place] [address] Scheduled Orders Name Type Priority Associated Diagnoses Orde r Schedule BASIC METABOLIC PANEL Lab Routine Chronic respiratory failure with hypoxia and hypercapnia (HCC) Stage 3a chronic kidney disease (HCC) Expected: 08/18/2024 (Approximate), Expires: 08/18/2025 CBC WITH WBC DIFFERENTIAL AND ANEMIA REFLEX WORKUP Lab Routine Chronic respiratory failure with hypoxia and hypercapnia (HCC) Stage 3a chronic kidney disease (HCC) Expected: 08/18/2024 (Approximate), Expires: 08/18/2025 Health Maintenance Due Date Last Done Comments Alpha-1 Antitrypsin 1974 CKD PHOS USE SMARTSET 93370 1974 DTap/Tdap Vaccines (1 - Tdap) 1975 [...] 04/28/2024, , 09/09/2023 CKD HGB USE SMARTSET 79159 06/15/202506/15, 06/15/2024, 05/27/2024, Additional history exists Diabetic [...] failure with hypoxia and hypercapnia (HCC)- Primary Stage 3a chronic kidney disease (HCC) documented in this encounter Care Teams Verse Writer Relationship Specialty Start Date End Date Charley Crane MD [address] [place] [address] PCP - General Internal Medicine 06/04/23 documented as of this encounter
--- OUTSIDE RECORDS SUMMARY | 2024-09-13 13:38 | External Medical Summary | Summary of Care ---
Author Name Unknown Organization [facility] Address [address] [place] [place] [address] Phone [phone] Care Team Providers Care Director Process Engineering Name Role Phone Charley Crane MD Primary Care Provider [phone] Reason for Visit * Reason Onset Date Comments [facility]: Maintenance 08/28/2024 Encounter Details Date Type Department Care Team (Late st Contact Info) Description 08/28/2024 9:45 AM EDT Scheduled Telephone [facility], [facility] [address] [facility] [place] [address] Coordinator, [facility] [address] [facility] [place] [address] Allergies Active Allergy Reactions Criticality Noted Date [...] ons:COPD, group D, by GOLD 2017 classification ([place] [...] LDL below 70 07/17/2023 Atherosclerosis of [place] co ronary artery without angina pectoris 07/05/2023 [...] Classes - JULIA Class D - Inhaled Aecldoezhzjuxx-BFNF-JTZT Combination Inhaler (Sandro) Remote Patient Monitoring Vendor: [facility] Device(s): Continuous Monitoring Device Traditional Scale Self-Management plan High frequency nebulizer treatments every 4-6 hours around the clock Exacerbation plan Chest Xray Additional Comments: On continuous o2 2-3lpm Bipap at night Body mass index (BMI) of 40. 0 to 44.9 in adult 07/08/2023 07/09/2024 Overview: Per Obesity protocol Atherosclerosis of [place] co ronary artery without angina pectoris 07/05/2023 [...] [facility] Telephonic Nurse Follow-Up Call [facility] Subprogram: Primary Care at Home Follow [...] today" so he is calling to let [facility] know he is starting the Zpack. His oxygen is on at 2.5 liters Ox sat 95-97% Denies any chest pain, wheezing, fever or chills. He is taking Mucinex q 12 hours and using his nebulizer. Patient is reminded to contact [facility] about coumadin dosing while taking the Zpack. TT sent to [facility] pharmacy Disposition: Routed to [facility] and/or [facility] Care Team for further advice Another follow up phone call tomorrow scheduled Future Visits Scheduled: Future Appointments-next 60 days Date/Time Provider Specialty Dept Phone 08/28/2024 9:45 AM [facility] [phone] 09/02/2024 3:00 PM (Arrive by 2:45 PM) Audrey Lee, Sleep Disorders [phone] 09/07/2024 7:00 AM [facility], Gml Mobile Home Draw Laboratory Processing [phone] 09/08/2024 6:00 AM [facility] [phone] 09/10/2024 10:00 AM Michelle Kim, RN [facility] [phone] 10/06/2024 2:40 PM (Arrive by 2:25 PM) Charley Crane MD Family Medicine [phone] Haily Baca RN [facility] Registered Nurse Navigator Triage documented in this encounter Plan of Treatment Upcoming Encounters Date Type Department Care Team (Late st Contact Info) Description 08/29/2024 1:00 PM EDT Scheduled Telephone [facility], [facility] [address] [facility] [place] [address] [facility], Nurse [facility] [address] [facility] [place] [address] 09/02/2024 3:00 PM EST Office Visit [facility] Disorders C[facility] [address] [facility] [place] [phone] Audrey Lee DO 132 [facility] [place] [address] 09/07/2024 7:00 AM EST Laboratory Lab [facility] [address] [facility] [place] [address] M[facility], Gml Mobile Home Draw [address] [facility] [place] [address] 09/08/2024 6:00 AM EST Anticoagulation Centralized Clinical Pharmacy Services, Oscar Peace [address] [place] [address] [place] [address] [place] [address] 09/10/2024 10:00 AM EST Home Visit [facility], [facility] [address] [facility] [place] [address] Michelle Kim RN [address] [place] [address] 10/06/2024 2:40 PM EST Office Visit [facility], [facility] [address] [facility] [place] [address] Charley Crane MD [address] [facility] [place] [address] Health Maintenance Due Date Last Done Comments Alpha-1 Antitrypsin 1974 CKD PHOS USE SMARTSET 30109 1974 DTap/Tdap Vaccines (1 - Tdap) 1975 [...] 04/28/2024, , 09/09/2023 CKD HGB USE SMARTSET 13713 06/15/202506/15, 06/15/2024, 05/27/2024, Additional history exists Diabetic [...] as of this encounter Care Teams Director Process Engineering Relationship Specialty Start Date End Date Charley Crane MD [address] [place] [address] PCP - General Internal Medicine 06/04/23 documented as of this encounter
--- OUTSIDE RECORDS SUMMARY | 2024-09-13 13:38 | External Medical Summary | Summary of Care ---
Author Name Unknown Organization [facility] Address [address] [place] [facility] [place] [address] Phone [phone] Care Team Providers Care Mixer Runner Name Role Phone Charley Crane MD Primary Care Provider [phone] Reason for Visit * Reason Onset Date Comments [facility]: Maintenance 08/29/2024 Encounter Details Date Type Department Care Team (Late st Contact Info) Description 08/29/2024 1:00 PM EDT Scheduled Telephone [facility], [facility] 132 [place] [address] [facility], Nurse [facility] [address] [place] [address] Allergies Active Allergy Reactions Criticality Noted Date Comments Cephalexin Other (Please comment) 08/03/2024 Taking it effect his warfarin documented as of this encounter (statuses as of 08/29/2024) Medications Medication Sig Dispensed Refills Start Date [...] ons:COPD, group D, by GOLD 2017 classification ([facility]) Take 2 Tablets by mouth in the [...] as of this encounter (statuses as of 08/29/2024) Active Problems Problem Noted Date Diagnosed Date [...] goal LDL below 70 07/17/2023 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 without angina pectoris 07/05/2023 [...] Monitoring Vendor: [facility] Device(s): Connected Scale Continuous [...] as of this encounter (statuses as of 08/29/2024) Resolved Problems Problem Noted Date Diagnosed Date [...] Classes - JULIA Class D - Inhaled Ryhoojcsisdeve-YMWP-BYMM Combination Inhaler (Sandro) Remote Patient Monitoring Vendor: [facility] Device(s): Continuous Monitoring Device Traditional Scale Self-Management plan High frequency nebulizer treatments every 4-6 hours around the clock Exacerbation plan Chest Xray Additional Comments: On continuous o2 2-3lpm Bipap at night Body mass index (BMI) of 40. 0 to 44.9 in adult 07/08/2023 07/09/2024 Overview: Per Obesity protocol 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 without angina pectoris 07/05/2023 08/29/2023 Dyspnea 07/04/2023 08/13/2023 Occupational exposure in workplace 07/04/2023 02/14/2024 Chronic congestive heart failure 06/08/2023 07/05/2023 COPD, severe 06/08/2023 07/11/2023 Overview: Per COPD GOLD Classification Chronic hypoxemic respiratory failure 06/08/2023 07/04/2023 Chronic respiratory failure with hypoxia, on home oxygen therapy 06/08/2023 08/29/2023 Diabetes mellitus without complication 06/08/2023 08/29/2023 documented as of this encounter (statuses as of 08/29/2024) Immunizations Name Administration Dates Next Due Pneumococcal [...] Telephone Encounter - Alida Luciano RN - 08/29/2024 11:29 AM EDT F/u call to pt re: started prednisone 08/26 and z-juan 08/28 for COPD exacerbation. Wearing O2 @ 2.5L, taking mucinex and using neb. Did pt contact MTM for coumadin dosing? Spoke with pt who reports he feels a little better, still coughing thick yellow sputum, but less sothan before. Reports some BERRY but recovers right away with rest. Wearing O2 @ 2.5 LPM, SpO2 95-96%. Advised to complete course of medications as prescribed, and to call [facility] if any new or worsening symptoms. Pt reports next INR draw is 09/07 and pharmacy will dose coumadin based on those results. Mtm note from 08/18 refects the same. documented in this encounter Plan of Treatment Upcoming Encounters Date Type Department Care Team (Late st Contact Info) Description 09/02/2024 3:00 PM EST Office Visit [facility]tr [facility] [place] [place] [address] [place] [phone] Audrey Lee DO [address] [place] [address] 09/07/2024 7:00 AM EST Laboratory Lab Mobile Phlebot[facility] [address] [facility] [place] [address] [facility], Gml Mobile Home Draw [address] [facility] [place] [address] 09/08/2024 6:00 AM EST Anticoagulation Centralized Clinical Pharmacy Services, Oscar Peace [address] [place] [address] [place] [address] [facility] [place] [address] 09/10/2024 10:00 AM EST Home Visit [facility], [facility] [address] [place] [address] Michelle Kim RN [address] [place] [address] 10/06/2024 2:40 PM EST Office Visit [facility] [address] [place] [address] [place] [address] Charley Crane MD [address] [place] [address] Health Maintenance Due Date Last Done Comments Alpha-1 Antitrypsin 1974 CKD PHOS USE SMARTSET 24035 1974 DTap/Tdap Vaccines (1 - Tdap) 1975 [...] 04/28/2024, , 09/09/2023 CKD HGB USE SMARTSET 75114 06/15/202506/15, 06/15/2024, 05/27/2024, Additional history exists Diabetic [...] filedocumented as of this encounter Care Teams Mixer Runner Relationship Specialty Start Date End Date Charley Crane MD [address] [place] [address] PCP - General Internal Medicine 06/04/23 documented as of this encounter
--- OUTSIDE RECORDS SUMMARY | 2024-09-13 13:38 | External Medical Summary | Summary of Care ---
Author Name Unknown Organization [facility] Address [address] [place] [facility] [place] [address] Phone [phone] Care Team Providers Care Community Development Manager Name Role Phone Charley Crane MD Primary Care Provider [phone] Reason for Visit * Reason Onset Date Comments [facility]: Acute 08/31/2024 Encounter Details Date Type Department Care Team (Late st Contact Info) Description 08/31/2024 Telephone [facility], [facility] [address] [facility] [place] [address] [facility], Nurse [facility] [address] [place] [address] [facility]: Acute Allergies Active Allergy Reactions Criticality Noted Date [...] 11/04 Overview: Per COPD GOLD Classification intermediate manager current use of anticoagulant therapy 0 2023 Longstanding persistent atrial fibrillation 06/29 Last Assessment & Plan: Rate controlled Continue coumadin Hypertension goal BP (blood pressure) < 130/80 0 07/17/2023 Dyslipidemia, goal LDL below 70 07/17/2023 Atherosclerosis of [place] ronary artery without angina pectoris [...] empagliflozin (ex. Jardiance) Remote Patient Monitoring Vendor: [facility] Device(s): Connected Scale [...] Classes - JULIA Class D - Inhaled Lrwvdcinrgduvu-DCAW-MVWN Combination Inhaler (Sandro) Remote Patient Monitoring Vendor: [facility] Device(s): Continuous Monitoring Device Traditional Scale Self-Management plan High frequency nebulizer treatments every 4-6 hours around the clock Exacerbation plan Chest Xray Additional Comments: On continuous o2 2-3lpm Bipap at night Body mass index (BMI) of 40. 0 to 44.9 in adult 07/08/2023 07/09/2024 Overview: Per Obesity protocol Atherosclerosis of [place] ronary artery without angina pectoris [...] encounter Miscellaneous Notes * Telephone Encounter - Anthony Alvarez DO - 08/31/2024 1:52 PM EST [facility] Remote Medical Command [facility] Subprogram: Primary Care at Home Recommendations: No RMC recommendations at this time as it is unclear of any sort of acuity as these have been goingon for quite some time. Agree with requested visits Orders: No orders of the defined types were placed in this encounter. To Do: Please see below for follow up items to be completed and correspondence: Agree with advice given and plan of care. No further action needed. Routed to sender as an FYI thatmessage was addressed. Anthony Alvarez DO Remote Medical Command - [facility] 08/31/2024 Scheduled appointments in the next 60 days: Future Appointments-next 60 days Date/Time Provider Specialty Dept Phone 09/02/2024 12:00 PM Coordinator, [facility] [place] [facility] [phone] 09/02/2024 3:00 PM (Arrive by 2:45 PM) Audrey Lee DO Sleep Disorders [phone] 09/07/2024 7:00 AM [facility], [facility] Mobile Home Draw Laboratory Processing [phone] 09/08/2024 6:00 AM [facility] [phone] 09/10/2024 10:00 AM Michelle Kim RN [facility] [phone] 10/06/2024 2:40 PM (Arrive by 2:25 PM) Charley Crane MD Family Medicine [phone] * Telephone Encounter - Haily Baca RN - 08/31/2024 12:35 PM EST [facility]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 : 1955 Caller: Bala Relationship to : self HPI: Bala Coronado Jr. is a 69 year old male that is calling [facility] to check when his next HV with [facility] is scheduled for? Informed patient not until 09/10/2024 with Michelle LUCIA. Patient then stated "the sores on his butt are not healing and he needs a nurse to come and check him tomorrow." Patient stated he has had the sores on his butt for a while, he has been applying barrier cream to the area but the "scabs are sticking to his underwear" and he has been pulling "the scabs" off when he changes his underwear and has noticed pink tinged drainage in his underwear. Patient states he does take Coumadin daily. Patient also stated he did have nurse visits with [facility] but is not sure when anyone is coming back . Nursing Assessment: Patient's chief complaint for this call: Integumentary Pain Denies pain Baseline Assessment Able to performing ADLs at baseline (walking, daily tasks, etc.): Unknown Chief Complaint is related to a chronic condition: No Patient prescribed oxygen? Yes, 3L/min Patient has been ordered DME equipment (assistive devices, respiratory equipment, etc.): Yes Describe DME devices: oxygen and nebulizer Patient is using DME device as directed: Yes Medication Reconciliation: (See medication list) Received flu shot this season: No Taking medication as ordered: Yes Medications ordered/taking to treat reason for call: Yes, PRN medication(s) Barrier cream Heart failure symptoms: No COPD exacerbation symptoms: No Reinforcement Education: Keep wound area clean and dry Continue applying barrier cream Change position frequently Monitor for any increase in drainage or bleeding Treatment/Plan: (need to report) Level of call: Non-Acute Recommended treatment plan: Clinical advice given over the phone Called [facility] [phone], spoke with Job, she stated patient is scheduled for a nurseHV on Saturday. I then spoke with Debi LUCIA at [facility]. She stated she will schedule nurse visit for tomorrow instead of Saturday. Patient called back and aware [facility] nurse will be having a HV tomorrow to check the wounds on his buttocks. Await any [facility] recommendations Follow up phone call scheduled for Saturday to follow up on HH visit. Haily Baca RN [facility] Registered Nurse Navigator Triage documented in this encounter Plan of Treatment Upcoming Encounters Date Type Department Care Team (Late st Contact Info) Description 09/02/2024 12:00 PM EST Scheduled Telephone [facility] [place], [address] [place] [address] Coordinator, [address] [place] [address] 09/02/2024 3:00 PM EST Office Visit Sleep Disorders Ctr [facility] [address] [place] [phone] Audrey Lee DO [address] [place] [address] 09/07/2024 7:00 AM EST Laboratory Lab Mobile Phlebotomy [facility] [address] [facility] [place] [address] [facility], [facility] Draw [address] [facility] [place] [address] 09/08/2024 6:00 AM EST Anticoagulation Centralized Clinical Pharmacy Services, [address] [place] [address] [place] [address] 09/10/2024 10:00 AM EST Home Visit [facility], [facility] [place] [address] Michelle Kim RN [address] [place] [address] 10/06/2024 2:40 PM EST Office Visit Family [facility] [address] [place] [address] Charley Crane MD [address] [place] [address] Health Maintenance Due Date Last Done Comments Alpha-1 Antitrypsin 1974 CKD PHOS USE SMARTSET 26293 1974 DTap/Tdap Vaccines (1 - Tdap) 1975 [...] 04/28/2024, , 09/09/2023 CKD HGB USE SMARTSET 91699 06/15/202506/15, 06/15/2024, 05/27/2024, Additional history exists Diabetic [...] filedocumented as of this encounter Care Teams Community Development Manager Relationship Specialty Start Date End Date Charley Crane MD [address] [place] [facility] [place] [address] PCP - General Internal Medicine 06/04/23 documented as of this encounter
--- OUTSIDE RECORDS SUMMARY | 2024-09-13 13:38 | External Medical Summary | Summary of Care ---
Author Name Unknown Organization [facility] Address [address] [facility] [place] [address] Phone [phone] Care Team Providers Care News Gathering Technician Name Role Phone Charley Crane MD Primary Care Provider [phone] Reason for Visit * Reason Onset Date Comments [facility]: Acute 08/31/2024 Encounter Details Date Type Department Care Team (Late st Contact Info) Description 08/31/2024 Telephone [facility], [facility] 132 [facility] [place] [address] [facility], Nurse [facility] 132 [place] [address] [facility]: Acute Allergies Active Allergy [...] D, by GOLD 2017 classification ([facility]) Take 2 Tablets by mouth in [...] goal LDL below 70 07/17/2023 Atherosclerosis of [place] co ronary artery without angina pectoris 07/05/2023 [...] Classes - JULIA Class D - Inhaled Isxfwqjtoajexe-WMBF-STLH Combination Inhaler (Sandro) Remote Patient Monitoring Vendor: [facility] Device(s): Continuous Monitoring Device Traditional Scale Self-Management plan High frequency nebulizer treatments every 4-6 hours around the clock Exacerbation plan Chest Xray Additional Comments: On continuous o2 2-3lpm Bipap at night Body mass index (BMI) of 40. 0 to 44.9 in adult 07/08/2023 07/09/2024 Overview: Per Obesity protocol Atherosclerosis of [place] co ronary artery without angina pectoris 07/05/2023 [...] encounter Miscellaneous Notes * Telephone Encounter - Haily Baca RN - 08/31/2024 12:35 PM EST [facility] overhead crane technician Acute Call Date: 08/31/2024 Time: 12:36 PM Name: Bala Coronado Jr. : 1955 Caller: Bala Relationship to : self HPI: Bala Coronado Jr. is a 69 year old male that is calling [facility] Intake to check when his next HV with [facility] is scheduled for? Informed patient not until [...] over the phone Called [facility] [phone], spoke with Job, she stated patient is scheduled for a nurseHV on Saturday. I then spoke with Debi LUCIA at [facility]. She stated she will schedule nurse visit for tomorrow instead of Saturday. Patient called back and aware [facility] Care nurse will be having a HV tomorrow to check the wounds on his buttocks. Await any [facility] recommendations Follow up phone call scheduled for Saturday to follow up on visit. Haily Baca RN [facility] Registered Nurse Navigator Triage documented in this encounter Plan of Treatment Upcoming Encounters Date Type Department Care Team (Late st Contact Info) Description 09/02/2024 12:00 PM EST Scheduled Telephone [facility], [facility] [address] [place] [address] Coordinator, [facility] [address] [place] [address] 09/02/2024 3:00 PM EST Office Visit Sleep Disorders Ctr [facility] [address] [place] [phone] Audrey Lee DO [address] [place] [address] 09/07/2024 7:00 AM EST Laboratory Lab Mobile Phlebotomy [facility] [facility] [address] [facility] Draw [address] [facility] [address] 09/08/2024 6:00 AM EST Anticoagulation Centralized Clinical Pharmacy Services, [address] [place] [address] [facility] [place] [address] 09/10/2024 10:00 AM EST Home Visit [facility], [facility] [address] [place] [address] Michelle Kim, [place] [address] [place] [address] 10/06/2024 2:40 PM EST Office Visit [facility] [place] [address] Charley Crane MD [address] [place] [address] Health Maintenance Due Date Last Done Comments Alpha-1 Antitrypsin 1974 CKD PHOS USE SMARTSET 48755 1974 DTap/Tdap Vaccines (1 - Tdap) 1975 [...] 04/28/2024, , 09/09/2023 CKD HGB USE SMARTSET 78202 06/15/202506/15, 06/15/2024, 05/27/2024, Additional history exists Diabetic [...] filedocumented as of this encounter Care Teams News Gathering Technician Relationship Specialty Start Date End Date Charley Crane MD [address] [place] [address] PCP - General Internal Medicine 06/04/23 documented as of this encounter
--- OUTSIDE RECORDS SUMMARY | 2024-09-13 13:38 | External Medical Summary | Summary of Care ---
Author Name Unknown Organization [facility] Address [address] [place] [facility] [place] [address] Phone [phone] Care Team Providers Care Director Pharmaceutical Name Role Phone Charley Crane MD Primary Care Provider [phone] Reason for Visit * Reason Onset Date Comments FYI 08/28/2024 Encounter Details Date Type Department Care Team (Late st Contact Info) Description 08/28/2024 Telephone [facility], Oscar Peace [address] [place] [address] [place] [address] [place] [id number] FYI Allergies Active Allergy Reactions Criticality Noted Date [...] group D, by GOLD 2017 classification ([facility]) Take 2 Tablets by mouth [...] goal LDL below 70 07/17/2023 Atherosclerosis of [place] ronary artery without angina pectoris [...] Classes - JULIA Class D - Inhaled Apiurfmnuovdcu-HQUN-NXWY Combination Inhaler (Sandro) Remote Patient Monitoring Vendor: [facility] Device(s): Continuous Monitoring Device Traditional Scale Self-Management plan High frequency nebulizer treatments every 4-6 hours around the clock Exacerbation plan Chest Xray Additional Comments: On continuous o2 2-3lpm Bipap at night Body mass index (BMI) of 40. 0 to 44.9 in adult 07/08/2023 07/09/2024 Overview: Per Obesity protocol Atherosclerosis of [place] ronary artery without angina pectoris [...] No 07/17/2024 Does the household have a [facility] source of income? (Household - for [...] Telephone Encounter - Isabel Li RPh - 08/28/2024 9:58 AM EDT Azithromycin and Prednisone not significant interactions. Can continue as planned. Isabel Li Rph, Pharm.D. Clinical Pharmacist [facility] ([facility]) [phone] 08/28/2024,9:58 AM * Telephone Encounter - Isabel Li [facility] - 08/28/2024 9:54 AM EDT ----- Message from Renata Knight sent at 08/28/2024 8:41 AM EDT ----- Regarding: Warfarin Dosing Message from Haily Baca RN from [facility]. He is starting prednisone x 5 days and Z pack today for COPD. If any coumadin dosing is needed please contact patient. He looks to be followed by [facility] and has INR checks via [facility]. Thank you, Renata Knight, PharmD Clinical Pharmacist 08/28/2024 8:44 AM * Telephone Encounter - Jennifer Lemus CPhT - 08/28/2024 9:32 AM EDT Caller's name: Bala Preferred call back number(OFFICE NUMBER FOR ): [phone] Reason for call: Patient calling in to let [facility] know he started Azithromycin 250MG Z-Juan today 08/28for 5 days. Thank you, Jennifer Lemus Property Adjuster [facility] ([facility]) 08/28/2024,9:32 AM documented in this encounter Plan of Treatment Upcoming Encounters Date Type Department Care Team (Late st Contact Info) Description 08/29/2024 1:00 PM EDT Scheduled Telephone [facility], [facility] [address] [place] [address] [facility], Nurse [facility] [address] [place] [address] 09/02/2024 3:00 PM EST Office Visit Sleep Disorders Ctr [facility] [address] [place] [phone] Audrey Lee, [address] [place] [address] 09/07/2024 7:00 AM EST Laboratory Lab Mobile Phlebotomy [facility] [address] [facility] [place] [address] [facility], Gml Mobile Home Draw [address] [facility] [place] [address] 09/08/2024 6:00 AM EST Anticoagulation Centralized Clinical Pharmacy Services, Oscar Peace [address] [place] [address] [place] [address] [facility], [address] [place] [address] 09/10/2024 10:00 AM EST Home Visit [facility], [facility] 132 [facility] [place] [address] Michelle Kim RN [address] [place] [address] 10/06/2024 2:40 PM EST [facility] [address] [place] [address] Charley Crane MD [address] [place] [address] Health Maintenance Due Date Last Done Comments Alpha-1 Antitrypsin 1974 CKD PHOS USE SMARTSET 46792 1974 DTap/Tdap Vaccines (1 - Tdap) 1975 [...] 04/28/2024, , 09/09/2023 CKD HGB USE SMARTSET 20207 06/15/202506/15, 06/15/2024, 05/27/2024, Additional history exists Diabetic [...] as of this encounter Care Teams Director Pharmaceutical Relationship Specialty Start Date End Date Charley Crane MD [address] [place] [address] PCP - General Internal Medicine 06/04/23 documented as of this encounter
--- OUTSIDE RECORDS SUMMARY | 2024-09-13 13:38 | External Medical Summary | Summary of Care ---
Author Name Unknown Organization [facility] Address [address] [place] [address] Phone [phone] Care Team Providers Care Vp Cardiovascular Name Role Phone Charley Crane MD Primary Care Provider [phone] Reason for Visit * Reason Onset Date Comments Order Request 08/27/2024 VNA Encounter Details Date Type Department Care Team (Late st Contact Info) Description 08/27/[address] [facility] [address] [place] [address] Charley Crane MD [address] [place] [address] Order Request (VNA ) Allergies Active Allergy Reactions Criticality Noted Date Comments Cephalexin Other (Please comment) 08/03/2024 Taking it effect his warfarin documented as of this encounter (statuses as of 08/27/2024) Medications Medication Sig Dispensed Refills Start Date [...] ons:COPD, group D, by GOLD 2017 classification ([facility]) Take 2 Tablets by mouth [...] as of this encounter (statuses as of 08/27/2024) Active Problems Problem Noted Date Diagnosed Date [...] as of this encounter (statuses as of 08/27/2024) Resolved Problems Problem Noted Date Diagnosed Date [...] Classes - JULIA Class D - Inhaled Andhdnmorrnoid-OBIQ-GGJU Combination Inhaler (Sandro) Remote Patient Monitoring Vendor: [...] as of this encounter (statuses as of 08/27/2024) Immunizations Name Administration Dates Next Due Pneumococcal [...] BFPROVIDERS: Dr. Charley Crane ORDER received from [facility] and FAXED documented in this encounter Plan of Treatment Upcoming Encounters Date Type Department Care Team (Jose Alejandro max Contact Info) Description 08/28/2024 9:45 AM EDT Scheduled Telephone [facility], [facility] [address] [place] [address] Coordinator, [facility] [address] [place] [address] 09/02/2024 3:00 PM EST [facility] [address] [place] [address] Audrey Lee DO [address] [place] [address] 09/07/2024 7:00 AM EST Laboratory Lab Mobile Phlebotomy [facility] [address] [facility] [place] [address] [facility], Gml Mobile Home Draw 25[address] [facility] [place] [address] 09/08/2024 6:00 AM EST Anticoagulation Centralized Clinical Pharmacy Services, [address] [place] [address] [facility], [address] [place] [address] 09/10/2024 10:00 AM EST Home Visit [facility], [facility] [address] [place] [address] Michelle Kim, RN [address] [place] [address] 10/06/2024 2:40 PM EST Office [facility] [address] [facility] [place] [address] Charley Crane MD [address] [place] [address] Health Maintenance Due Date Last Done Comments Alpha-1 Antitrypsin 1974 CKD PHOS USE SMARTSET 28445 1974 DTap/Tdap Vaccines (1 - Tdap) 1975 [...] 04/28/2024, , 09/09/2023 CKD HGB USE SMARTSET 75559 06/15/202506/15, 06/15/2024, 05/27/2024, Additional history exists Diabetic [...] filedocumented as of this encounter Care Teams Vp Cardiovascular Relationship Specialty Start Date End Date Charley Crane MD [address] [facility] [address] PCP - General Internal Medicine 06/04/23 documented as of this encounter
--- OUTSIDE RECORDS SUMMARY | 2024-09-13 13:38 | External Medical Summary | Summary of Care ---
Author Name Unknown Organization [facility] Address [address] [place] [address] Phone [phone] Care Team Providers Care Hydramatic Specialist Name Role Phone Charley Crane MD Primary Care Provider [phone] Reason for Visit * Reason Onset Date Comments Order Request 08/27/2024 VNA Encounter Details Date Type Department Care Team (Late st Contact Info) Description 08/27/2024 Telephone [facility] [address] [place] [address] Charley Crane MD [address] [place] [address] Order Request (VNA ) Allergies [...] 11/04 Overview: Per COPD GOLD Classification terminal clerk current use of anticoagulant therapy 0 2023 Longstanding persistent atrial fibrillation 06/29 Last Assessment & Plan: Rate controlled Continue coumadin Hypertension goal BP (blood pressure) < 130/80 0 07/17/2023 Dyslipidemia, goal LDL below 70 07/17/2023 Atherosclerosis of [place] co ronary artery without [...] empagliflozin (ex. Jardiance) Remote Patient Monitoring Vendor: [facility] Device(s): Connected Scale [...] Classes - JULIA Class D - Inhaled Vqyzshdacuralz-JAKQ-XGNR Combination Inhaler (Sandro) Remote Patient Monitoring Vendor: [facility] Device(s): Continuous Monitoring Device Traditional Scale Self-Management plan High frequency nebulizer treatments every 4-6 hours around the clock Exacerbation plan Chest Xray Additional Comments: On continuous o2 2-3lpm Bipap at night Body mass index (BMI) of 40. 0 to 44.9 in adult 07/08/2023 07/09/2024 Overview: Per Obesity protocol Atherosclerosis of [place] [...] encounter Miscellaneous Notes * Telephone Encounter - Chanel Belle OSA [...] wish to have their order completed at? [facility] Fax Number, if applicable: patient doesn't have [...] BFPROVIDERS: Dr. Charley Crane ORDER received from [facility] and FAXED documented in this encounter Plan of Treatment Upcoming Encounters Date Type Department Care Team (Late st Contact Info) Description 08/29/2024 1:00 PM EDT Scheduled Telephone [facility], [facility] [address] [place] [address] [facility], Nurse [facility] 132 [facility] [place] [address] 09/02/2024 3:00 PM EST Office Visit Sleep Disorders Ctr [facility] [address] [place] [phone] Audrey Lee DO 132 [facility] [place] [address] 09/07/2024 7:00 AM EST Laboratory Lab Mobile Phlebotomy [facility] [address] [place] [address] [facility], Gml Mobile Home Draw [address] [facility] [place] [address] 09/08/2024 6:00 AM EST Anticoagulation Centralized Clinical Pharmacy Services, Oscar Peace [address] [place] [address] [place] [address] [facility], [address] [place] [address] 09/10/2024 10:00 AM EST Home Visit [facility], [facility] [address] [place] [address] Michelle Kim, RN [address] [place] [address] 10/06/2024 2:40 PM EST Office Visit Family Practice, [facility] [address] [place] [address] Charley Crane MD [address] [place] [address] Health Maintenance Due Date Last Done Comments Alpha-1 Antitrypsin 1974 CKD PHOS USE SMARTSET 25663 1974 DTap/Tdap Vaccines (1 - Tdap) 1975 [...] 04/28/2024, , 09/09/2023 CKD HGB USE SMARTSET 83774 06/15/202506/15, 06/15/2024, 05/27/2024, Additional history exists Diabetic [...] filedocumented as of this encounter Care Teams Hydramatic Specialist Relationship Specialty Start Date End Date Charley Crane MD [address] [place] [address] PCP - General Internal Medicine 06/04/23 documented as of this encounter
--- OUTSIDE RECORDS SUMMARY | 2024-09-13 13:39 | External Medical Summary | Summary of Care ---
Author Name Unknown Organization [facility] Address [address] [place] [address] Phone [phone] Care Team Providers Care Land Acquisition Specialist Name Role Phone Charley Crane MD Primary Care Provider [phone] Reason for Visit * Reason Onset Date Comments Acute 08/26/2024 Encounter Details Date Type Department Care Team (Late st Contact Info) Description 08/26/2024 Telephone [facility], [facility] [address] [place] [place] [address] Ashely Chapman RN [address] [facility] [place] [id number] Acute Allergies Active Allergy Reactions Criticality Noted Date Comments Cephalexin Other (Please comment) 08/03/2024 Taking it effect his warfarin documented as of this encounter (statuses as of 08/26/2024) Medications Medication Sig Dispensed Refills Start Date [...] (.AM/PM), (No instructions reported), Reported on 07/31/2024 Warfarin Sodium 10 MG Oral Tablet (Coumadin) [...] ons:COPD, group D, by GOLD 2017 classification ([place] [...] daily until gone 6 Tablet 4 Active documented as of this encounter (statuses as of 08/26/2024) Active Problems Problem Noted Date Diagnosed Date [...] goal LDL below 70 07/17/2023 Atherosclerosis of [place] co 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 Jardiance) Remote Patient Monitoring Vendor: [facility] Device(s): Connected Scale Continuous [...] as of this encounter (statuses as of 08/26/2024) Resolved Problems Problem Noted Date Diagnosed Date [...] Classes - JULIA Class D - Inhaled Lpepsgxwdufcan-AKFP-MNPR Combination Inhaler (Trellegy) Remote Patient Monitoring Vendor: [facility] Device(s): Continuous Monitoring Device Traditional Scale Self-Management plan High frequency nebulizer treatments every 4-6 hours around the clock Exacerbation plan Chest Xray Additional Comments: On continuous o2 2-3lpm Bipap at night Body mass index (BMI) of 40. 0 to 44.9 in adult 07/08/2023 07/09/2024 Overview: Per Obesity protocol Atherosclerosis of [place] co ronary artery without angina pectoris 07/05/2023 08/29/2023 Dyspnea 07/04/2023 08/13/2023 Occupational exposure in workplace 07/04/2023 02/14/2024 Chronic congestive heart failure 06/08/2023 07/05/2023 COPD, severe 06/08/2023 07/11/2023 Overview: Per COPD GOLD Classification Chronic hypoxemic respiratory failure 06/08/2023 07/04/2023 Chronic respiratory failure with hypoxia, on home oxygen therapy 06/08/2023 08/29/2023 Diabetes mellitus without complication 06/08/2023 08/29/2023 documented as of this encounter (statuses as of 08/26/2024) Immunizations Name Administration Dates Next Due Pneumococcal [...] No 07/17/2024 Does the household have a [facility] source of income? (Household - [...] encounter Miscellaneous Notes * Addendum Note - Abdon Canada MD - 08/26/2024 12:19 PM EDTAddended by: ABDON CANADA on: 08/26/2024 12:19 PM Modules accepted: Orders * Telephone Encounter - Abdon Canada MD - 08/26/2024 12:17 PM EDT Recommend: Start prednisone 40 mg daily x 5 days now Start Zpack if purulent sputum develops. Rx sent If he starts Zpack, he needs to contact MTM about coumadin dosing Abdon Canada MD, [facility] [place], FAAFP Remote Medical Command ([facility]) [facility] Available on [employer] * Telephone Encounter - Ashely Chapman RN - 08/26/2024 11:22 AM EDT [facility] patient accounts coordinator Acute Call Date: 08/26/2024 Time: 11:23 AM Name: Bala Coronado Jr. : 1955 Caller: patient Chief Complaint Patient presents with Acute HPI: Bala Coronado Jr. is a 69 year old male that is calling [facility] to report concern for COPD exacerbation. Nursing Assessment: Patient's chief complaint for this call: Pr reports that he was exposed to a friend who is sick and his friend has developed PNA. Pt is concerned that he will get sick as well. States that he is having a little bit of tightness in the chest and some increased SOB on exertion the last couple of days. Denies wheezing, cough, chest pain or fever/chills O2 sat 95% on 2.5L O2 Using nebs q 3 hrs Pt has a rescue kit but states that he needs a new Rx for an abx. Has been ordered doxycycline in the past but it make him nauseated and did not really work well for him. Requesting a different abx to be sent to the pharmacy for him Pain Denies pain Baseline Assessment Able to performing ADLs at baseline (walking, daily tasks, etc.): Yes Chief Complaint is related to a chronic condition: No Patient prescribed oxygen? Yes, 2.5L/min Patient has been ordered DME equipment (assistive devices, respiratory equipment, etc.): Yes Describe DME devices: nebulizer Patient is using DME device as directed: Yes Medication Reconciliation: (See medication list) Received flu shot this season: Unknown Taking medication as ordered: Yes Medications ordered/taking to treat reason for call: No Heart failure symptoms: No COPD exacerbation symptoms: No Reinforcement Education: COPD: Pt instructed to: -Call with increased SOB, wheezing, chest tightness, increased cough, increased sputum with change in color or consistency and fever. -Wash hands often -Drink plenty of fluids -Use inhalers as directed, do not stop or skip doses -Avoid stress -Rest when tired or SOB -Avoid triggers -Clean inhalers once a week Treatment/Plan: (need to report) Level of call: Non-Acute Recommended treatment plan: Clinical advice given over the phone Routing to care team for recommendations Call back instructions provided to patient. documented in this encounter Plan of Treatment Upcoming Encounters Date Type Department Care Team (Late st Contact Info) Description 09/02/2024 3:00 PM EST Office Visit [facility]tr [facility] [address] [phone] Audrey Lee DO [address] [place] [address] 09/07/2024 7:00 AM EST Laboratory Lab [facility] [address] [facility] [address] [facility], Gml Mobile Home Draw [address] [facility] [place] [address] 09/08/2024 6:00 AM EST Anticoagulation Centralized Clinical Pharmacy Services, [address] [place] [address] [place] [address] 09/10/2024 10:00 AM EST [facility] Visit [facility] [address] [address] Michelle Kim, RN [address] [place] [address] 10/06/2024 2:40 PM EST Office Visit [facility] [address] [place] [address] Charley Crane MD [address] [place] [address] Health Maintenance Due Date Last Done Comments Alpha-1 Antitrypsin 1974 CKD PHOS USE SMARTSET 83364 1974 DTap/Tdap Vaccines (1 - Tdap) 1975 [...] 04/28/2024, , 09/09/2023 CKD HGB USE SMARTSET 79297 06/15/202506/15, 06/15/2024, 05/27/2024, Additional history exists Diabetic [...] filedocumented as of this encounter Care Teams Land Acquisition Specialist Relationship Specialty Start Date End Date Charley Crane MD [address] [place] [address] PCP - General Internal Medicine 06/04/23 documented as of this encounter
--- OUTSIDE RECORDS SUMMARY | 2024-09-13 13:39 | External Medical Summary | Summary of Care ---
Author Name Unknown Organization [facility] Address [address] [place] [address] Phone [phone] Care Team Providers Care Goodyear Stitcher Name Role Phone Charley Crane MD Primary Care Provider [phone] Reason for Visit * Reason Comments eRx-Medication Refill Encounter Details Date Type Department Care Team (Late st Contact Info) Description 08/26/2024 Refill [facility] [address] [place] [phone] Charley Crane MD [address] [place] [address] Allergies Active Allergy Reactions Criticality [...] ons:COPD, group D, by GOLD 2017 classification ([facility]) Take 2 Tablets by mouth [...] goal LDL below 70 07/17/2023 Atherosclerosis of [place] co 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 Jardiance) Remote Patient Monitoring Vendor: [facility] [place] Device(s): Connected Scale Continuous Monitoring Device Self [...] Classes - JULIA Class D - Inhaled Urifwhudpbsfoo-OXKQ-QGXU Combination Inhaler (Sandro) Remote Patient Monitoring Vendor: [facility] Device(s): Continuous Monitoring Device Traditional Scale Self-Management plan High frequency nebulizer treatments every 4-6 hours around the clock Exacerbation plan Chest Xray Additional Comments: On continuous o2 2-3lpm Bipap at night Body mass index (BMI) of 40. 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 (Household - [...] encounter Miscellaneous Notes * Telephone Encounter - Bibi Jacinto, [facility] - 08/27/2024 11:06 AM EDTRefused Prescriptions: Disp Refills Warfarin Sodium 10 MG Oral Tablet (Jantove*100 Ta*0 Sig: PLEASE SEE ATTACHED FOR DETAIL DIRECTIONSRefused By: BIBI RODAS for Refusal: Duplicate Reques t documented in this encounter Plan of Treatment Upcoming Encounters Date Type Department Care Team (Late st Contact Info) Description 08/27/2024 12:30 PM EDT Scheduled Telephone [facility], [address] [place] [address] Coordinator, [address] [place] [address] 08/28/2024 9:45 AM EDT Scheduled Telephone [facility] [place], [place] [address] [address] [place] [address] Coordinator, [address] [place] [address] 09/02/2024 3:00 PM EST Office Visit [facility] [address] [facility] [place] [phone] Audrey Lee DO [address] [place] [address] 09/07/2024 7:00 AM EST Laboratory Lab Mobile Phlebotomy [facility] [place] [address] Mvmg, Gml Mobile Home Draw [address] [place] [address] 09/08/2024 6:00 AM EST Anticoagulation Centralized Clinical Pharmacy Services, Oscar Peace [address] [place] [address] [place] [address] Ccps, [address] [place] [address] 09/10/2024 10:00 AM EST Home Visit [facility], [address] [place] [address] Michelle Kim, RN [address] [place] [address] 10/06/2024 2:40 PM EST Office Visit [facility] [address] [place] [phone] Charley Crane MD [address] [place] [address] Health Maintenance Due Date Last Done Comments Alpha-1 Antitrypsin 1974 CKD PHOS USE SMARTSET 72939 1974 DTap/Tdap Vaccines (1 - Tdap) 1975 [...] 04/28/2024, , 09/09/2023 CKD HGB USE SMARTSET 83357 06/15/202506/15, 06/15/2024, 05/27/2024, Additional history exists Diabetic [...] filedocumented as of this encounter Care Teams Goodyear Stitcher Relationship Specialty Start Date End Date Charley Crane MD [address] [place] [address] PCP - General Internal Medicine 06/04/23 documented as of this encounter
--- OUTSIDE RECORDS SUMMARY | 2024-09-13 13:39 | External Medical Summary | Summary of Care ---
Author Name Unknown Organization [facility] Address [address] [place] [address] Phone [phone] Care Team Providers Care Soccer Referee Name Role Phone Charley Crane MD Primary Care Provider Reason for Visit * Reason Onset Date Comments Medication Refill 08/07/2024 Encounter Details Date Type Department Care Team (Late st Contact Info) Description 08/07/2024 Refill [facility] [address] [place] [phone] Charley Crane MD [address] [place] [address] Allergies Active Allergy Reactions Criticality [...] ions:COPD, group D, by GOLD 2017 classification ([facility]) Take 2 Tablets by mouth in the [...] and shoulders. 100 g 1 4 Active Diclofenac Sodium 1 % External Gel (Voltaren) Apply 1 Application topically to affected area in the morning and 1 Application before bedtime. Apply to knees and shoulders. 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 therapy 0 2023 Longstanding persistent atrial fibrillation 06/29 Last Assessment & Plan: Rate controlled Continue coumadin Hypertension goal BP (blood pressure) < 130/80 0 07/17/2023 Dyslipidemia, goal LDL below 70 07/17/2023 Atherosclerosis of [place] co ronary artery without angina pectoris 07/05/2023 [...] Classes - JULIA Class D - Inhaled Nbwqsglpcalvyv-HZCZ-UTIU Combination Inhaler (Sandro) Remote Patient Monitoring Vendor: [facility] Device(s): Continuous Monitoring Device Traditional Scale Self-Management plan High frequency nebulizer treatments every 4-6 hours around the clock Exacerbation plan Chest Xray Additional Comments: On continuous o2 2-3lpm Bipap at night Body mass index (BMI) of 40. 0 to 44.9 in adult 07/08/2023 07/09/2024 Overview: Per Obesity protocol Atherosclerosis of [place] co ronary artery without angina pectoris 07/05/2023 [...] Telephone Encounter - Charley Crane MD - 08/10/2024 1:30 PM EDTSigned Prescriptions: Disp Refills Diclofenac Sodium 1 % External Gel (Voltar*100 g 1 Sig: Apply 1 Application topically to affected area in the morning and 1 Application before bedtime. Apply to knees and shoulders. Authorizing Provider: CHARLEY CRANE * Telephone Encounter - Johana Kennedy LPN - 08/10/2024 11:51 AM EDT Script pended please sign if agreeable. * Telephone Encounter - Brent Mario CPhT - 08/07/2024 11:26 AM EDT Pt requesting high priority as pt will be out of medication this weekend. Pt calling requesting the following medication below that is listed as "Historical". The following information was provided: Medication Name: Diclofenac Sodium Gel Strength: 1% Directions: Apply 1 application topically twice a day to affected area. Apply to knees and shoulders. Preferred Quantity: 100 G Previous Prescriber: N/A Preferred Pharmacy: [id number] Please review and approve if appropriate. Thank you, Brent Mario Elementary Classroom Teacher Centralized Clinical Pharmacy Services ([facility]) 08/07/2024,11:31 AM documented in this encounter Plan of Treatment Upcoming Encounters Date Type Department Care Team (Late st Contact Info) Description 09/02/2024 3:00 PM EST [facility] [address] [place] [phone] Audrey Lee DO [address] [address] 09/07/2024 7:00 AM EST Laboratory Lab Mobile Phlebotomy [facility] [address] [facility] [place] [address] Mv[facility], Gml Mobile Home Draw [address] [place] [address] 09/08/2024 6:00 AM EST Anticoagulation Centralized Clinical Pharmacy Services, Oscar Peace [address] [place] [address] [place] [address] [place] [address] 09/10/2024 10:00 AM EST [facility] Visit [facility], [facility] [place] [address] Michelle Kim, RN [address] [place] [address] 10/06/2024 2:40 PM EST Office Visit [facility] [address] [place] [phone] Charley Crane MD [address] [place] [address] Health Maintenance Due Date Last Done Comments Alpha-1 Antitrypsin 1974 CKD PHOS USE SMARTSET 39085 1974 DTap/Tdap Vaccines (1 - Tdap) 1975 [...] 04/28/2024, , 09/09/2023 CKD HGB USE SMARTSET 27941 06/15/202506/15, 06/15/2024, 05/27/2024, Additional history exists Diabetic [...] filedocumented as of this encounter Care Teams Soccer Referee Relationship Specialty Start Date End Date Charley Crane MD [address] [place] [address] PCP - General Internal Medicine 06/04/23 documented as of this encounter
--- OUTSIDE RECORDS SUMMARY | 2024-09-13 13:39 | External Medical Summary | Summary of Care ---
Author Name Unknown Organization [facility] Address [address] [place] [address] Phone [phone] Care Team Providers Care Certified Phlebotomist Name Role Phone Charley Crane MD Primary Care Provider [phone] Reason for Visit * Reason Onset Date Comments Medication Refill 08/26/2024 Encounter Details Date Type Department Care Team (Late st Contact Info) Description 08/26/2024 Refill [facility] [address] [place] [phone] Charley Crane MD [address] [place] [address] Allergies Active Allergy Reactions Criticality [...] ions:COPD, group D, by GOLD 2017 classification ([place] [...] anticoagulation clinic. 100 Tablet 3 4 Active Warfarin Sodium 10 [...] goal LDL below 70 07/17/2023 Atherosclerosis of [place] co ronary artery without angina pectoris 07/05/2023 [...] Classes - JULIA Class D - Inhaled Rpyarnrfyshoka-QGSO-AZBS Combination Inhaler (Sandro) Remote Patient Monitoring Vendor: [facility] Device(s): Continuous Monitoring Device Traditional Scale Self-Management plan High frequency nebulizer treatments every 4-6 hours around the clock Exacerbation plan Chest Xray Additional Comments: On continuous o2 2-3lpm Bipap at night Body mass index (BMI) of 40. 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 Authorizing Provider: CHARLEY CRANE Ordering User: ARNOLD BAIN * Telephone Encounter - Misty Shanks CPhT - 08/26/2024 1:17 PM EDT Did you pend patient's preferred pharmacy and medication before forwarding?yes [facility]acy: [id number] [facility] Pending Prescriptions: Disp Refills Warfarin Sodium 10 MG Oral Tablet (Coumad*100 Ta*3 Sig: Take 1 to 1.5 tablets by mouth every day in the evening or as directed by the anticoagulation clinic. Last Visit: 08/03/2024 (in office), Visit date not found (telemedicine) Next Visit: 10/06/2024 If no future appointments scheduled, and last [...] PM EDT Scheduled Telephone [facility], [facility] [address] [place] [address] Coordinator, [facility] [address] [place] [address] 08/28/2024 9:45 AM EDT Scheduled Telephone [facility], [facility] [address] [place] [address] Coordinator, [facility] [address] [place] [address] 09/02/2024 3:00 PM EST Office Visit [facility] [address] [place] [phone] Audrey Lee DO [address] [place] [address] 09/07/2024 7:00 AM EST Laboratory Lab [facility] [address] [facility] [address] [facility] Draw [address] [facility] [address] 09/08/2024 6:00 AM EST Anticoagulation Centralized Clinical Pharmacy Services, [address] [place] [address] Ccps, [address] [place] [address] 09/10/2024 10:00 AM EST Home Visit [facility], [facility] [address] [place] [address] Michelle Kim, RN [address] [place] [address] 10/06/2024 2:40 PM EST Office Visit [facility] [address] [place] [facility] [place] [address] Charley Crane MD [address] [place] [facility] [place] [address] Health Maintenance Due Date Last Done Comments Alpha-1 Antitrypsin 1974 CKD PHOS USE SMARTSET 41716 1974 DTap/Tdap Vaccines (1 - Tdap) 1975 [...] 04/28/2024, , 09/09/2023 CKD HGB USE SMARTSET 36057 06/15/202506/15, 06/15/2024, 05/27/2024, Additional history exists Diabetic [...] filedocumented as of this encounter Care Teams Certified Phlebotomist Relationship Specialty Start Date End Date Charley Crane MD [address] [place] [address] PCP - General Internal Medicine 06/04/23 documented as of this encounter
--- OUTSIDE RECORDS SUMMARY | 2024-09-13 13:39 | External Medical Summary | Summary of Care ---
Author Name Unknown Organization [facility] Address [address] [place] [address] Phone [phone] Care Team Providers Care Wing Scorer Name Role Phone Charley Crane MD Primary Care Provider [phone] Reason for Visit * Reason Onset Date Comments Acute 08/26/2024 Encounter Details Date Type Department Care Team (Late st Contact Info) Description 08/26/2024 Telephone [facility], [facility] [address] [place] [facility] [place] [address] Ashely Chapman RN [address] 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 0 to 44.9 in adult 07/08/2023 07/09/2024 Overview: Per Obesity protocol Atherosclerosis of [place] co ronary artery without angina pectoris [...] No 07/17/2024 Does the household have a [email or web address]]lar source of income? (Household - for ages [...] Encounter - Ashely Chapman RN - 08/26/2024 12:43 PM EDT Call placed to the pt with [facility] recommendations. No answer. LMOM for callback. * Addendum Note - Abdon Canada MD [...] MTM about coumadin dosing Abdon Canada MD, [facility], [facility], FAAFP Remote Medical Command ([facility]) [employer] [facility] Available on [employer] * Telephone Encounter - Ashely Chapman RN - 08/26/2024 11:22 AM EDT [facility] ship mate Acute Call Date: 08/26/2024 Time: 11:23 AM Name: Bala Coronado Jr. : 1955 Caller: patient Chief Complaint Patient presents with Acute HPI: Bala Coronado Jr. is a 69 year old male that is calling [facility] Int[facility] to report concern for [...] EST Office Visit [facility] Ctr [facility] [address] [place] [phone] Audrey Lee, [address] [place] [address] 09/07/2024 7:00 AM EST Laboratory Lab Mobile Phlebotomy [facility] [address] [place] [address] Mvmg, Gml Mobile Home Draw [address] [place] [address] 09/08/2024 6:00 AM EST Anticoagulation Centralized Clinical Pharmacy Services, Oscar Peace [address] [place] [address] [place] [address] [place] [address] 09/10/2024 10:00 AM EST Home Visit [facility], [facility] [address] [place] [address] Michelle Kim, RN [address] [place] [address] 10/06/2024 2:40 PM EST Office Visit [facility] [address] [place] [phone] Charley Crane MD [address] [place] [address] Health Maintenance Due Date Last Done Comments Alpha-1 Antitrypsin 1974 CKD PHOS USE SMARTSET 79596 1974 DTap/Tdap Vaccines (1 - Tdap) 1975 [...] 04/28/2024, , 09/09/2023 CKD HGB USE SMARTSET 54124 06/15/202506/15, 06/15/2024, 05/27/2024, Additional history exists Diabetic [...] filedocumented as of this encounter Care Teams Wing Scorer Relationship Specialty Start Date End Date Charley Crane MD [address] [place] [address] PCP - General Internal Medicine 06/04/23 documented as of this encounter
--- OUTSIDE RECORDS SUMMARY | 2024-09-13 13:39 | External Medical Summary | Summary of Care ---
Author Name Unknown Organization [facility] Address [address] [place] [address] Phone [phone] Care Team Providers Care Patient Support Representative Name Role Phone Charley Crane MD Primary Care Provider [phone] Reason for Visit * Reason Comments eRx-Medication Refill Encounter Details Date Type Department Care Team (Late st Contact Info) Description 08/25/2024 Refill [facility] [address] [place] [phone] Charley Crane MD [address] [place] [address] Allergies Active Allergy Reactions Criticality [...] ons:COPD, group D, by GOLD 2017 classification ([facility]) Take 2 Tablets by mouth in the [...] and shoulders. 100 g 1 4 Active documented as of this [...] goal LDL below 70 07/17/2023 Atherosclerosis of [place] co ronary artery without angina pectoris 07/05/2023 [...] Classes - JULIA Class D - Inhaled Wweyxfbbgexnwx-HDYK-NARD Combination Inhaler (Sandro) Remote Patient Monitoring Vendor: Current [facility] Device(s): Continuous Monitoring Device Traditional Scale Self-Management plan High frequency nebulizer treatments every 4-6 hours around the clock Exacerbation plan Chest Xray Additional Comments: On continuous o2 2-3lpm Bipap at night Body mass index (BMI) of 40. 0 to 44.9 in adult 07/08/2023 07/09/2024 Overview: Per Obesity protocol Atherosclerosis of [place] co ronary artery without angina pectoris 07/05/2023 [...] No 07/17/2024 Does the household have a [facility] source of income? (Household - for ages [...] Notes * Telephone Encounter - Yara Rob RPh - 08/26/2024 10:28 AM EDTRefused Prescriptions: Disp Refills Jardiance 10 MG Oral Tablet (Empagliflozin)90 Tab*0 Sig: TAKE 1TABLET BY MOUTH EVERY MORNINGRefused By: YARA ROB for Refusal: Refill Not Appropriate- documented in this encounter Plan of Treatment Upcoming Encounters Date Type Department Care Team (Late st Contact Info) Description 09/02/2024 3:00 PM EST Office Visit [facility] [place] [address] [place] [address] Audrey Lee DO [address] [place] [address] 09/07/2024 7:00 AM EST Laboratory Lab Mobile Phlebotomy [facility] [address] [place] [address] [facility], [facility] Mobile Home Draw [address] [place] [address] 09/08/2024 6:00 AM EST Anticoagulation Centralized Clinical Pharmacy Services, [address] [place] [address] [place] [address] 09/10/2024 10:00 AM EST [facility], [facility] [address] [place] [address] Michelle Kim, RN [address] [facility] [place] [address] 10/06/2024 2:40 PM EST Office Visit Family [facility] [address] [place] [phone] Charley Crane MD [address] [place] [address] Health Maintenance Due Date Last Done Comments Alpha-1 Antitrypsin 1974 CKD PHOS USE SMARTSET 72102 1974 DTap/Tdap Vaccines (1 - Tdap) 1975 [...] 04/28/2024, , 09/09/2023 CKD HGB USE SMARTSET 95543 06/15/202506/15, 06/15/2024, 05/27/2024, Additional history exists Diabetic [...] filedocumented as of this encounter Care Teams Patient Support Representative Relationship Specialty Start Date End Date Charley Crane MD [address] [place] [address] PCP - General Internal Medicine 06/04/23 documented as of this encounter
--- OUTSIDE RECORDS SUMMARY | 2024-09-13 13:39 | External Medical Summary | Summary of Care ---
Author Name Unknown Organization [facility] Address [address] [place] [facility] [place] [address] Phone [phone] Care Team Providers Care Rn Acute Dialysis Name Role Phone Charley Crane MD Primary Care Provider Reason for Visit * Reason Onset Date Comments [facility]: Maintenance 08/14/2024 Encounter Details Date Type Department Care Team (Late st Contact Info) Description 08/14/2024 Telephone [facility], [facility] [address] [place] [address] Michelle Kim, RN [address] [facility] [place] [address] [facility]: Maintenance Allergies Active Allergy [...] D, by GOLD 2017 classification ([facility]) Take 2 Tablets by mouth in the [...] Per COPD GOLD Classification long term care phlebotomist current use of anticoagulant therapy 0 2023 Longstanding persistent atrial fibrillation 06/29 Last Assessment & Plan: Rate controlled Continue coumadin Hypertension goal BP (blood pressure) < 130/80 0 07/17/2023 Dyslipidemia, goal LDL below 70 07/17/2023 Atherosclerosis of [place] co ronary artery without angina pectoris [...] (ex. Jardiance) Remote Patient Monitoring Vendor: [facility] Device(s): Connected Scale Continuous Monitoring [...] Classes - JULIA Class D - Inhaled Inuqcjmxsdljtg-LOTT-BFXM Combination Inhaler (Silverllegy) Remote Patient Monitoring Vendor: [facility] Device(s): Continuous Monitoring Device Traditional Scale Self-Management plan High frequency nebulizer treatments every 4-6 hours around the clock Exacerbation plan Chest Xray Additional Comments: On continuous o2 2-3lpm Bipap at night Body mass index (BMI) of 40. 0 to 44.9 in adult 07/08/2023 07/09/2024 Overview: Per Obesity protocol Atherosclerosis of [place] co ronary artery without angina pectoris [...] encounter Miscellaneous Notes * Telephone Encounter - Sanjana Hoyt LPN [...] [facility] [address] [place] [phone] Audrey Lee DO [address] [place] [address] 09/07/2024 7:00 AM EST Laboratory Lab Mobile Ph[facility]omy [facility] [address] [facility] [place] [address] Mvmg, Gml Mobile Home Draw [address] [place], [place] [address] 09/08/2024 6:00 AM EST Anticoagulation Centralized Clinical Pharmacy Services, Oscar Peace [address] [place] [address] [place] [address] [facility] [place] [facility], [address] [place] [address] 09/10/2024 10:00 AM EST [facility] Visit [facility] [place], [facility] 132 [facility] [place] [address] Michelle Kim, RN [address] [place] [address] 10/06/2024 2:40 PM EST Office Visit [facility] [address] [place] [phone] Charley Crane MD [address] [place] [address] Scheduled Orders Name Type Priority Associated Diagnoses [...] Alpha-1 Antitrypsin 1974 CKD PHOS USE SMARTSET 51041 1974 DTap/Tdap Vaccines (1 - Tdap) 1975 [...] 04/28/2024, , 09/09/2023 CKD HGB USE SMARTSET 32453 06/15/202506/15, 06/15/2024, 05/27/2024, Additional history exists Diabetic [...] (HCC) documented in this encounter Care Teams Rn Acute Dialysis Relationship Specialty Start Date End Date Charley Crane MD [address] [place] [address] PCP - General Internal Medicine 06/04/23 documented as of this encounter
--- OUTSIDE RECORDS SUMMARY | 2024-09-13 13:39 | External Medical Summary | Summary of Care ---
Author Name Unknown Organization [facility] Address [address] [facility] [place] [address] Phone [phone] Care Team Providers Care Concession Manager Name Role Phone Charley Crane MD Primary Care Provider [phone] Reason for Visit * Reason Onset Date Comments [facility]: Maintenance 08/27/2024 Encounter Details Date Type Department Care Team (Late st Contact Info) Description 08/27/2024 12:30 PM EDT Scheduled Telephone [facility], [facility] 132 [facility] [place] [address] Coordinator, [facility] 132 [facility] [place] [address] Allergies Active Allergy Reactions Criticality Noted Date [...] ons:COPD, group D, by GOLD 2017 classification ([facility]) Take 2 Tablets by mouth in the [...] goal LDL below 70 07/17/2023 Atherosclerosis of [place] co ronary artery without angina pectoris [...] Classes - JULIA Class D - Inhaled Phqzfuocrmdxim-BBHZ-OKIX Combination Inhaler (Sandro) Remote Patient Monitoring Vendor: Current [facility] Device(s): Continuous Monitoring Device Traditional Scale Self-Management plan High frequency nebulizer treatments every 4-6 hours around the clock Exacerbation plan Chest Xray Additional Comments: On continuous o2 2-3lpm Bipap at night Body mass index (BMI) of 40. 0 to 44.9 in adult 07/08/2023 07/09/2024 Overview: Per Obesity protocol Atherosclerosis of [place] co ronary artery without angina pectoris [...] Telephone Encounter - Ashely Chapman RN - 08/27/2024 10:28 AM EDT [facility] Telephonic Nurse Follow-Up Call [facility] Subprogram: Primary Care at Home Follow Up Call Type: 24 hour follow [...] DME Needs: Nebulizer machine and supplies Medications: Current Rescue Kit: Prednisone 40mg daily for 5 days Rx Oral Antibiotic Rx (see medication list) Started steroid 08/26 Zpak ordered with instructions to only start if pt develops purulent sputum. Pt has not started yet Subjective: Condition Status: Improvement in symptoms but not at baseline Current Concerns: Pt reports his chest is not as tight as it was yesterday. Still getting BERRY. O2 sat 97% on 2.5L at rest but drops into the 80's on exertion. Seen yesterday by [facility] nurse who told him his lungs were clear and did not have any rattle. Pt coughing up light yellow sputum. Denies fever or chills. Denies wheezing. Using nebulizer q4 hrs. Mucinex q12 hr Started prednisone yesterday. COPD: Pt instructed to: -Call with increased SOB, wheezing, chest tightness, increased cough, increased sputum with change in color or consistency and fever. -Wash hands often -Drink plenty of fluids -Use inhalers as directed, do not stop or skip doses -Avoid stress -Rest when tired or SOB -Avoid triggers -Clean inhalers once a week Disposition: Follow up call scheduled for tomorrow with [employer] Future Visits Scheduled: Future Appointments-next 60 days Date/Time Provider Specialty Dept Phone 08/27/2024 12:30 PM Coordinator, [facility] [phone] 08/28/2024 9:45 AM Coordinator, [facility] [phone] 09/02/2024 3:00 PM (Arrive by 2:45 PM) Audrey Lee, DO Sleep Disorders [phone] 09/07/2024 7:00 AM [facility] S[facility] Mobile Home Draw Laboratory Processing [phone] 09/08/2024 6:00 AM [facility] [phone] 09/10/2024 10:00 AM Michelle Kim, RN [facility] [phone] 10/06/2024 2:40 PM (Arrive by 2:25 PM) Charley Crane MD Family Medicine [phone] Ashely Chapman, RN documented in this encounter Plan of Treatment Upcoming Encounters Date Type Department Care Team (Late st Contact Info) Description 08/28/2024 9:45 AM EDT Scheduled Telephone [facility] [address] [place] [address] Coordinator, Xiom[facility] Sunshine [address] [place] [address] 09/02/2024 3:00 PM EST Office Visit [facility] Ctr [facility] [address] [place] [phone] Audrey Lee DO [address] [place] [address] 09/07/2024 7:00 AM EST Laboratory Lab Mobile Phlebotomy [facility] [address] [facility] [place] [address] M[facility], Gml Mobile Home Draw [address] [facility] [place] [address] 09/08/2024 6:00 AM EST Anticoagulation Centralized Clinical Pharmacy Services, Oscar Peace [address] [place] [address] [place] [address] [place] [address] 09/10/2024 10:00 AM EST Home Visit [facility], [facility] [address] [place] [address] Michelle Kim, RN [address] [place] [address] 10/06/2024 2:40 PM EST Office Visit [facility] [address] [place] [phone] Charley Crane MD [address] [place] [address] Health Maintenance Due Date Last Done Comments Alpha-1 Antitrypsin 1974 CKD PHOS USE SMARTSET 04907 1974 DTap/Tdap Vaccines (1 - Tdap) 1975 [...] 04/28/2024, , 09/09/2023 CKD HGB USE SMARTSET 05905 06/15/202506/15, 06/15/2024, 05/27/2024, Additional history exists Diabetic [...] filedocumented as of this encounter Care Teams Concession Manager Relationship Specialty Start Date End Date Charley Crane MD [address] [place] [address] PCP - General Internal Medicine 06/04/23 documented as of this encounter
--- OUTSIDE RECORDS SUMMARY | 2024-09-13 13:39 | External Medical Summary | Summary of Care ---
Author Name Unknown Organization [facility] Address [address] [place] [address] Phone [phone] Care Team Providers Care Electronics Tech Name Role Phone Charley Crane MD Primary Care Provider [phone] Reason for Visit * Reason Onset Date Comments Advice 08/26/2024 Encounter Details Date Type Department Care Team (Late st Contact Info) Description 08/26/2024 Telephone [facility] [address] [place] [address] Charley Crane MD [address] [place] [address] Advice Allergies Active Allergy Reactions Criticality Noted Date [...] ons:COPD, group D, by GOLD 2017 classification ([facility]) Take 2 Tablets by mouth in [...] goal LDL below 70 07/17/2023 Atherosclerosis of [place] co ronary artery without angina pectoris 07/05/2023 [...] Classes - JULIA Class D - Inhaled Fgwgqcndldseel-QQLN-TCQI Combination Inhaler (Sandro) Remote Patient Monitoring Vendor: Current [facility] Device(s): Continuous Monitoring Device Traditional Scale Self-Management plan High frequency nebulizer treatments every 4-6 hours around the clock Exacerbation plan Chest Xray Additional Comments: On continuous o2 2-3lpm Bipap at night Body mass index (BMI) of 40. 0 to 44.9 in adult 07/08/2023 07/09/2024 Overview: Per Obesity protocol Atherosclerosis of [place] co ronary artery without angina pectoris 07/05/2023 [...] Miscellaneous Notes * Telephone Encounter - Ashely Bar OSA - 08/26/2024 11:08 AM EDT Patient would like to know if his [facility] nurse can draw his labs for CBC And BMP when she comes to check his INR for his Warfarin. He was transferred to [facility] to address. documented in this encounter Plan of Treatment Upcoming Encounters Date Type Department Care Team (Late st Contact Info) Description 09/02/2024 3:00 PM EST Office Visit Sleep Disorders Ctr [facility] [address] [place] [phone] Audrey Lee DO 132 [facility] [place] [address] 09/07/2024 7:00 AM EST Laboratory Lab [facility] [facility] [address] M[facility], Gml Mobile Home Draw [address] [facility] [address] 09/08/2024 6:00 AM EST Anticoagulation Centralized Clinical Pharmacy Services, Oscar Peace [address] [place] [address] [place] [address] [place] [address] 09/10/2024 10:00 AM EST [facility] Visit [facility] 132 [facility] [place] [address] Michelle Kim RN 132 [facility] [place] [address] 10/06/2024 2:40 PM EST Office Visit [place] [address] [place] [phone] Charley Crane MD [address] [place] [address] Health Maintenance Due Date Last Done Comments Alpha-1 Antitrypsin 1974 CKD PHOS USE SMARTSET 49662 1974 DTap/Tdap Vaccines (1 - Tdap) 1975 [...] 04/28/2024, , 09/09/2023 CKD HGB USE SMARTSET 07262 06/15/202506/15, 06/15/2024, 05/27/2024, Additional history exists Diabetic [...] filedocumented as of this encounter Care Teams Electronics Tech Relationship Specialty Start Date End Date Charley Crane MD [address] [place] [facility] [place] [address] PCP - General Internal Medicine 06/04/23 documented as of this encounter
--- OUTSIDE RECORDS SUMMARY | 2024-09-13 13:39 | External Medical Summary | Summary of Care ---
Author Name Unknown Organization [facility] Address [address] [place] [address] Phone [phone] Care Team Providers Care Bed Control Specialist Name Role Phone Charley Crane MD Primary Care Provider [phone] Reason for Visit * Reason Onset Date Comments Acute 08/26/2024 Encounter Details Date Type Department Care Team (Late st Contact Info) Description 08/26/2024 Telephone [facility], [facility] [address] [place] [address] Ashely Chapman RN [address] [facility] [place] [id number] Acute Allergies Active Allergy Reactions Criticality Noted [...] ons:COPD, group D, by GOLD 2017 classification ([facility]) Take 2 Tablets by [...] goal LDL below 70 07/17/2023 Atherosclerosis of [place] co ronary artery without angina pectoris 07/05/2023 [...] Classes - JULIA Class D - Inhaled Gehmvwbnwbzcsk-BVOU-GLVG Combination Inhaler (Trellegy) Remote Patient Monitoring Vendor: Current [facility] Device(s): Continuous Monitoring Device Traditional Scale Self-Management plan High frequency nebulizer treatments every 4-6 hours around the clock Exacerbation plan Chest Xray Additional Comments: On continuous o2 2-3lpm Bipap at night Body mass index (BMI) of 40. 0 to 44.9 in adult 07/08/2023 07/09/2024 Overview: Per Obesity protocol Atherosclerosis of [place] co ronary artery without angina pectoris 07/05/2023 [...] No 07/17/2024 Does the household have a [facility] source of income? (Household - [...] encounter Miscellaneous Notes * Telephone Encounter - Christina Gerber LPN - 08/26/2024 12:50 PM EDT Pt called backed, reviewed below. Verbalized understanding with teach back. * Telephone Encounter - Ashely Chapman RN - 08/26/2024 12:43 PM EDT Call placed to the pt with [facility] recommendations. No answer. LMOM for callback. 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 : 1955 Caller: patient Chief Complaint Patient presents with Acute HPI: Bala Coronado Jr. is a 69 year old male that is calling [facility] Intake to report concern for [...] 12:30 PM EDT Scheduled Telephone [facility] [address] [place] [address] Coordinator, [facility] [address] [place] [address] 08/28/2024 9:45 AM EDT Scheduled Telephone [facility] [address] [place] [address] Coordinator, [facility] [address] [place] [address] 09/02/2024 3:00 PM EST Office Visit [facility] Ctr [facility] [place] [phone] Audrey Lee DO 132 [facility] [place] [address] 09/07/2024 7:00 AM EST Laboratory Lab Mobile Phlebotomy [facility] [address] [facility] [place] [address] Mv[facility], Gml Mobile Home Draw [address] [facility] [place] [address] 09/08/2024 6:00 AM EST Anticoagulation Centralized Clinical Pharmacy Services, Owsley Kobi [address] [place] [address] [place] [address] [place] [address] 09/10/2024 10:00 AM EST Home Visit [facility] 132 [facility] [place] [address] Michelle Kim, RN 132 [facility] [place] [address] 10/06/2024 2:40 PM EST Office Visit [place] [address] [place] [phone] Charley Crane MD [address] [place] [address] Health Maintenance Due Date Last Done Comments Alpha-1 Antitrypsin 1974 CKD PHOS USE SMARTSET 96926 1974 DTap/Tdap Vaccines (1 - Tdap) 1975 [...] 04/28/2024, , 09/09/2023 CKD HGB USE SMARTSET 15376 06/15/202506/15, 06/15/2024, 05/27/2024, Additional history exists Diabetic [...] filedocumented as of this encounter Care Teams Bed Control Specialist Relationship Specialty Start Date End Date Charley Crane MD [address] [place] [address] PCP - General Internal Medicine 06/04/23 documented as of this encounter
--- OUTSIDE RECORDS SUMMARY | 2024-09-13 13:39 | External Medical Summary | Summary of Care ---
Author Name Unknown Organization [facility] Address [address] [place] [address] Phone [phone] Care Team Providers Care Technical Support Consultant Name Role Phone Charley Crane MD Primary Care Provider [phone] Reason for Visit * Reason Onset Date Comments Acute 08/26/2024 Encounter Details Date Type Department Care Team (Late st Contact Info) Description 08/26/2024 Telephone [facility], [facility] [address] [place] [address] Ashely Chapman RN [address] [facility] [place] [id number] Acute Allergies Active Allergy Reactions Criticality Noted [...] classification 11/04 Overview: Per COPD 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 Jardiance) Remote Patient Monitoring Vendor: [facility] Device(s): Connected Scale Continuous Monitoring Device Self [...] Classes - JULIA Class D - Inhaled Umzzsllseqjjwg-BGJY-GPGX Combination Inhaler (Sandro) Remote Patient Monitoring Vendor: Current [facility] Device(s): Continuous Monitoring Device Traditional Scale Self-Management plan High frequency nebulizer treatments every 4-6 hours around the clock Exacerbation plan Chest Xray Additional Comments: On continuous o2 2-3lpm Bipap at night Body mass index (BMI) of 40. 0 to 44.9 in adult 07/08/2023 07/09/2024 Overview: Per Obesity protocol Atherosclerosis of [place] co ronary artery without angina pectoris 07/05/2023 [...] No 07/17/2024 Does the household have a [facility] source of income? 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 : 1955 Caller: patient Chief Complaint Patient presents with Acute HPI: Bala Coronado Jr. is a 69 year old male that is calling [facility] Intake to report concern for [...] Office Visit Sleep Disorders Ctr [facility] 132 [facility] [place] [phone] Audrey Lee, 132 [place] [address] 09/07/2024 7:00 AM EST Laboratory Lab [facility] [address] [facility] [place] [address] M[facility], Gml Mobile Home Draw [address] [facility] [place] [address] 09/08/2024 6:00 AM EST Anticoagulation Centralized Clinical Pharmacy Services, Oscar Peace [address] [place] [address] [place] [address] [facility], [address] [place] [address] 09/10/2024 10:00 AM EST [facility] Visit [facility], [facility] 132 [facility] [place] [address] Michelle Kim RN [address] [place] [address] 10/06/2024 2:40 PM EST Office Visit Family [facility] [address] [place] [phone] Charley Crane MD [address] [place] [address] Health Maintenance Due Date Last Done Comments Alpha-1 Antitrypsin 1974 CKD PHOS USE SMARTSET 35596 1974 DTap/Tdap Vaccines (1 - Tdap) 1975 [...] 04/28/2024, , 09/09/2023 CKD HGB USE SMARTSET 04887 06/15/202506/15, 06/15/2024, 05/27/2024, Additional history exists Diabetic [...] filedocumented as of this encounter Care Teams Technical Support Consultant Relationship Specialty Start Date End Date Charley Crane MD [address] [place] [address] PCP - General Internal Medicine 06/04/23 documented as of this encounter
--- OUTSIDE RECORDS SUMMARY | 2024-09-13 13:39 | External Medical Summary | Summary of Care ---
Author Name Unknown Organization [facility] Address [address] [place] [address] Phone [phone] Care Team Providers Care Mechanical Product Design Engineer Name Role Phone Charley Crane MD Primary Care Provider [phone] Encounter Details Date Type Department Care Team (Late st Contact Info) Description 06/30/2024 Telephone [facility], [facility] [address] [facility] [id number] Anthony Alvarez DO [address] [place] [address] Allergies Active Allergy Reactions Criticality Noted Date Comments Cephalexin Other (Please comment) 08/03/2024 Taking it effect his warfarin documented as of this encounter (statuses as of 08/25/2024) Medications Medication Sig Dispensed Refills Start Date [...] the morning. 90 Tablet 3 4 Active Ketoconazole 2 % External CreamIndications: Seborrheic dermatitis Apply to dry patches on face once daily 30 g 1 3 07/31/20 24 Discontinu ed(Medicat ion List Clean Up) guaiFENesin ER 600 MG Oral Tablet Extended Release 12 Hour (Mucinex) Take 1 Tablet by mouth 2 times a day. 07/31/20 24 Discontinu ed(Medicat ion/Dose Changed) Doxycycline Hyclate 100 MG Oral Capsule Take 1 Capsule by mouth in the morning and 1 Capsule before bedtime. Until gone. COPD rescue kit. 20 Capsule 4 06/30/20 Discontinu ed(Refill) predniSONE 20 MG Oral Tablet (Deltasone) Take 2 Tablets by mouth in the morning for 5 days. 10 Tablet 4 07/09/20 Discontinu ed(Refill) Doxycycline Hyclate 100 MG Oral Capsule Take 1 Capsule by mouth in the morning and 1 Capsule before bedtime. Do all this for 10 days. Until gone.. 20 Capsule 4 07/09/20 24 Discontinu ed(Refill) Potassium Chloride ER 10 MEQ Oral Capsule Extended Release Take 1 Capsule by mouth every other day. 45 Capsule 1 4 07/31/20 Discontinu ed(Medicat ion List Clean Up) Enalapril Maleate 10 MG Oral Tablet (Vasotec) TAKE 1 TABLET BY MOUTH EVERY MORNING 90 Tablet 1 4 07/31/20 Discontinu ed(Medicat ion/Dose Changed) Doxycycline Hyclate 100 MG Oral Capsule Take 1 Capsule by mouth in the morning and 1 Capsule before bedtime. Until gone. COPD rescue kit. 20 Capsule 4 07/31/20 24 Discontinu ed(Medicat ion List Clean Up) documented as of this encounter (statuses as of 08/25/2024) Active Problems Problem Noted Date Diagnosed Date Stage 3 chronic kidney disease 06/15/2024 Hypertensive heart disease w ith chronic diastolic congestive heart failure 06/15/2024 Last Assessment & Plan: "RED FLAG" HF Symptoms: Leg Swelling Abdominal Bloating Increased dyspnea on exertion Medication Regimen: Beta Laureano Therapy: Carvedilol ANGEL Inhibitor/ARB Therapy: Enalapril Diuretic therapy: Torsemide Aldactone SGLT2 Inhibitor: empagliflozin (ex. Jardiance) Remote Patient Monitoring Vendor: Connected [facility] Device(s): Traditional Scale Traditional Pulse Ox Self [...] goal LDL below 70 07/17/2023 Atherosclerosis of [place] co 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 Jardiance) Remote Patient Monitoring Vendor: [place] Device(s): Connected Scale Continuous Monitoring Device Self [...] as of this encounter (statuses as of 08/25/2024) Resolved Problems Problem Noted Date Diagnosed Date [...] Classes - JULIA Class D - Inhaled Vhavyiwaoyvzrj-FRJB-PVEV Combination Inhaler (Trellegy) Remote Patient Monitoring Vendor: Current [facility] Device(s): Continuous Monitoring Device Traditional Scale Self-Management plan High frequency nebulizer treatments every 4-6 hours around the clock Exacerbation plan Chest Xray Additional Comments: On continuous o2 2-3lpm Bipap at night Body mass index (BMI) of 40. 0 to 44.9 in adult 07/08/2023 07/09/2024 Overview: Per Obesity protocol Atherosclerosis of [place] co ronary artery without angina pectoris 07/05/2023 08/29/2023 Dyspnea 07/04/2023 08/13/2023 Occupational exposure in workplace 07/04/2023 02/14/2024 Chronic congestive heart failure 06/08/2023 07/05/2023 COPD, severe 06/08/2023 07/11/2023 Overview: Per COPD GOLD Classification Chronic hypoxemic respiratory failure 06/08/2023 07/04/2023 Chronic respiratory failure with hypoxia, on home oxygen therapy 06/08/2023 08/29/2023 Diabetes mellitus without complication 06/08/2023 08/29/2023 documented as of this encounter (statuses as of 08/25/2024) Immunizations Name Administration Dates Next Due Pneumococcal [...] PM EST Office Visit [facility] Disorders [facility] [address] [place] [phone] Audrey Lee DO [address] [place] [address] 09/07/2024 7:00 AM EST Laboratory Lab Mobile Phlebotomy [facility] [address] [facility] [place] [address] M[facility], [facility] Mobile Home Draw [address] [facility] [place] [address] 09/08/2024 6:00 AM EST Anticoagulation Centralized Clinical Pharmacy Services, [facility] Kobi [address] [place] [address] [place] [address] [place] [address] 09/10/2024 10:00 AM EST Home Visit [facility], [facility] [address] [place] [address] Michelle Kim RN [address] [place] [address] 10/06/2024 2:40 PM EST Office Visit [facility] [address] [place] [phone] Charley Crane MD [address] [place] [address] Health Maintenance Due Date Last Done Comments Alpha-1 Antitrypsin 1974 CKD PHOS USE SMARTSET 70652 1974 DTap/Tdap Vaccines (1 - Tdap) 1975 [...] 04/28/2024, , 09/09/2023 CKD HGB USE SMARTSET 48232 06/15/202506/15, 06/15/2024, 05/27/2024, Additional history exists Diabetic [...] filedocumented as of this encounter Care Teams Mechanical Product Design Engineer Relationship Specialty Start Date End Date Charley Crane MD [address] [place] [address] PCP - General Internal Medicine 06/04/23 documented as of this encounter
--- OUTSIDE RECORDS SUMMARY | 2024-09-13 13:40 | External Medical Summary ---
Author Name Unknown Address Unknown Organization K0G[facility] [address] [place] [address] Laboratory Report Ordering Provider Test Date Status NAVARROSANCHORADU 08/17/2024 10:45:00 Final Standing order for pt/inr. < br/>Please draw pt/inr every 1 to 4 weeks as requested
Results to [facility]

Warfarin Therapy
INR: 2.0-3.0 conventional anticoagulation
INR: 2.5-3.5 high intensity anticoagulation Observation Date Value Abnormality Reference (Units ) Status PT 08/17/2024 10:45:00 23.5 Above high normal 11 .6-15.2 (seconds) Final INR 08/17/2024 10:45:00 2.1 Above high normal 0. 8-1.2 Final Performing Location [facility] [address] [place] [address]
--- OUTSIDE RECORDS SUMMARY | 2024-09-13 13:40 | External Medical Summary | Summary of Care ---
Author Name Unknown Organization [facility] Address [address] [place] [address] Phone [phone] Care Team Providers Care Fire Prevention Forester Name Role Phone Charley Crane MD Primary Care Provider [phone] Reason for Visit * Reason Onset Date Comments Medication Refill 07/27/2024 Re: Doxycyclin e Hyclate Oral Capsule 100 MG Encounter Details Date Type Department Care Team (Late st Contact Info) Description 07/27/2024 Refill [facility] [place] [address] Anirudh Gonzalez PA-C [address] [place] [place] [address] Allergies Active Allergy Reactions Criticality Noted Date [...] ions:COPD, group D, by GOLD 2017 classification ([facility]) Take 2 Tablets by mouth in the morning. Rescue kit. Use only as instructed. 10 Tablet 4 Active Ketoconazole 2 % External CreamIndications:S eborrheic dermatitis Apply to dry patches on face once daily 30 g 1 3 07/31/20 Discontinu ed(Medicat ion List Clean Up) guaiFENesin ER 600 MG Oral Tablet Extended Release 12 Hour (Mucinex) Take 1 Tablet by mouth 2 times a day. 07/31/20 Discontinu ed(Medicat ion/Dose Changed) Potassium Chloride ER 10 MEQ Oral Capsule Extended Release Take 1 Capsule by mouth every other day. 45 Capsule 1 4 07/31/20 24 Discontinu ed(Medicat ion List Clean Up) Enalapril Maleate 10 MG Oral Tablet (Vasotec) TAKE 1 TABLET BY MOUTH EVERY MORNING 90 Tablet 1 4 07/31/20 Discontinu ed(Medicat ion/Dose Changed) Doxycycline Hyclate 100 MG Oral Capsule Take 1 Capsule by mouth in the morning and 1 Capsule before bedtime. Until gone. COPD rescue kit. 20 Capsule 4 07/31/20 Discontinu ed(Medicat ion List Clean Up) Nystatin 419402 UNIT/GM External Cream Apply topically to affected area 2 times a day. Continue until resolved 30 g 2 4 07/31/20 Discontinu ed(Medicat ion List Clean Up) Doxycycline Hyclate 100 MG Oral CapsuleIndications :COPD, group D, by GOLD 2017 classification ([facility]) Take 1 Capsule by mouth in the morning and 1 Capsule before bedtime. Rescue kit. Use only as instructed. 20 Capsule 4 07/31/20 Discontinu ed(Medicat ion List Clean Up) documented [...] goal LDL below 70 07/17/2023 Atherosclerosis of [place] co 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 Jardiance) Remote Patient Monitoring Vendor: [facility] Device(s): Connected Scale Continuous Monitoring Device Self [...] Classes - JULIA Class D - Inhaled Yshazulqgbmxig-XWFQ-DPIH Combination Inhaler (Trellegy) Remote Patient Monitoring Vendor: Current [facility] Device(s): Continuous Monitoring Device Traditional Scale Self-Management plan High frequency nebulizer treatments every 4-6 hours around the clock Exacerbation plan Chest Xray Additional Comments: On continuous o2 2-3lpm Bipap at night Body mass index (BMI) of 40. 0 to 44.9 in adult 07/08/2023 07/09/2024 Overview: Per Obesity protocol Atherosclerosis of [place] co ronary artery without angina pectoris 07/05/2023 [...] Telephone Encounter - Anirudh Gonzalez PA-C - 07/27/2024 8:45 AM EDTRefused Prescriptions: Disp Refills Doxycycline Hyclate 100 MG Oral Capsule 20 Cap*0 Sig: Take 1 Capsule by mouth in the morning and 1 Capsule before bedtime. Until gone. COPD rescue kit. Refused By: ANIRUDH GONZALEZ Reason for Refusal: Duplicate Request * Telephone Encounter - Bobbi Worley OSA - 07/27/2024 8:16 AM EDT Please authorize with refills, as appropriate. Thank you, CRISTOFER Solis documented in this encounter Plan of Treatment Upcoming Encounters Date Type Department Care Team (Late st Contact Info) Description 09/02/2024 3:00 PM EST Office Visit [facility] [place] [phone] Audrey Lee DO [address] [facility] [place] [address] 09/07/2024 7:00 AM EST Laboratory Lab Mobile Phlebotomy [facility] [address] [facility] [place] [address] [facility], G[facility] Mobile Home Draw [address] [place] [address] 09/08/2024 6:00 AM EST Anticoagulation Centralized Clinical Pharmacy Services, [facility] Peace [address] [place] [address] [place] [address] Ccp, [facility] [address] [place] [address] 09/10/2024 10:00 AM EST [facility] [place] [address] Michelle Kim, RN [address] [place] [address] 10/06/2024 2:40 PM EST Office Visit [facility] [address] [place] [phone] Charley Crane MD [address] [place] [address] Health Maintenance Due Date Last Done Comments Alpha-1 Antitrypsin 1974 CKD PHOS USE SMARTSET 82976 1974 DTap/Tdap Vaccines (1 - Tdap) 1975 [...] 04/28/2024, , 09/09/2023 CKD HGB USE SMARTSET 50010 06/15/202506/15, 06/15/2024, 05/27/2024, Additional history exists Diabetic [...] filedocumented as of this encounter Care Teams Fire Prevention Forester Relationship Specialty Start Date End Date Charley Crane MD [address] [place] [address] PCP - General Internal Medicine 06/04/23 documented as of this encounter
--- OUTSIDE RECORDS SUMMARY | 2024-09-13 13:40 | External Medical Summary | Summary of Care ---
Author Name Unknown Organization [facility] Address [address] [place] [address] Phone [phone] Care Team Providers Care Tombstone Setter Name Role Phone Charley Crane MD Primary Care Provider [phone] Reason for Visit * Reason Onset Date Comments Forms Request 08/17/2024 [facility] Encounter Details Date Type Department Care Team (Late st Contact Info) Description 08/17/2024 Telephone [facility] [address] [place] [address] Charley Crane MD [address] [place] [address] Forms Request ([facility]) Allergies Active Allergy Reactions Criticality Noted Date Comments Cephalexin Other (Please comment) 08/03/2024 Taking it effect his warfarin documented as of this encounter (statuses as of 08/17/2024) Medications Medication Sig Dispensed Refills Start Date [...] D, by GOLD 2017 classification ([facility]) Take 2 Tablets by mouth in [...] as of this encounter (statuses as of 08/17/2024) Active Problems Problem Noted Date Diagnosed Date [...] goal LDL below 70 07/17/2023 Atherosclerosis of [place] co ronary artery without angina pectoris [...] as of this encounter (statuses as of 08/17/2024) Resolved Problems Problem Noted Date Diagnosed Date [...] Classes - JULIA Class D - Inhaled Hetzvkcufmmhda-FOEM-DSTS Combination Inhaler (Sandro) Remote Patient Monitoring Vendor: Current [facility] Device(s): Continuous Monitoring Device Traditional Scale Self-Management plan High frequency nebulizer treatments every 4-6 hours around the clock Exacerbation plan Chest Xray Additional Comments: On continuous o2 2-3lpm Bipap at night Body mass index (BMI) of 40. 0 to 44.9 in adult 07/08/2023 07/09/2024 Overview: Per Obesity protocol Atherosclerosis of [place] co ronary artery without angina pectoris [...] as of this encounter (statuses as of 08/17/2024) Immunizations Name Administration Dates Next Due Pneumococcal [...] Telephone Encounter - Ashely Garduno LPN - 08/17/2024 8:54 AM EDT Received Fax for BFPROVIDERS: Dr. Charley Crane PT PLAN OF CARE/EVALUATION received from [facility] health [facility] and FAXED documented in this encounter Plan of Treatment Upcoming Encounters Date Type Department Care Team (Late st Contact Info) Description 08/18/2024 6:00 AM EDT [facility] Clinical Pharmacy Services, Oscar Peace [address] [place] [address] [place] [address] Ccps, [facility] [place] [address] [place] [address] 09/02/2024 3:00 PM EST Office Visit [facility] Disorders Ctr [facility] [address] [facility] [place] [phone] Audrey Lee DO [address] [place] [address] 09/10/2024 10:00 AM EST Home Visit [facility], [facility] [address] [place] [address] Michelle Kim RN [address] [place] [address] 10/06/2024 2:40 PM EST Office Visit [facility] [address] [place] [phone] Charley Crane MD [address] [place] [address] Health Maintenance Due Date Last Done Comments Alpha-1 Antitrypsin 1974 CKD PHOS USE SMARTSET 88548 1974 DTap/Tdap Vaccines (1 - Tdap) 1975 [...] 04/28/2024, , 09/09/2023 CKD HGB USE SMARTSET 48082 06/15/202506/15, 06/15/2024, 05/27/2024, Additional history exists Diabetic [...] filedocumented as of this encounter Care Teams Tombstone Setter Relationship Specialty Start Date End Date Charley Crane MD [address] [place] [address] PCP - General Internal Medicine 06/04/23 documented as of this encounter
--- OUTSIDE RECORDS SUMMARY | 2024-09-13 13:40 | External Medical Summary | Summary of Care ---
Author Name Unknown Organization [facility] Address [address] [place] [address] Phone [phone] Care Team Providers Care Auger Operator Name Role Phone Charley Crane MD Primary Care Provider [phone] Reason for Visit * Reason Comments eRx-Medication Refill Encounter Details Date Type Department Care Team (Late st Contact Info) Description 08/20/2024 Refill [facility] [address] [place] [address] Charley Crane MD [address] [place] [address] Allergies Active Allergy Reactions Criticality Noted Date Comments Cephalexin Other (Please comment) 08/03/2024 Taking it effect his warfarin documented as of this encounter (statuses as of 08/22/2024) Medications Medication Sig Dispensed Refills Start Date [...] as of this encounter (statuses as of 08/22/2024) Active Problems Problem Noted Date Diagnosed Date [...] classification 11/04 Overview: Per COPD GOLD Classification 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 0 2023 Longstanding persistent atrial fibrillation 06/29 Last Assessment & Plan: Rate controlled Continue coumadin Hypertension goal BP (blood pressure) < 130/80 0 07/17/2023 Dyslipidemia, goal LDL below 70 07/17/2023 Atherosclerosis of [place] co ronary artery without angina pectoris 07/05/2023 [...] as of this encounter (statuses as of 08/22/2024) Resolved Problems Problem Noted Date Diagnosed Date [...] Classes - JULIA Class D - Inhaled Auekamrfzgzuau-FKEN-YNZF Combination Inhaler (Sandro) Remote Patient Monitoring Vendor: Current [facility] Device(s): Continuous Monitoring Device Traditional Scale Self-Management plan High frequency nebulizer treatments every 4-6 hours around the clock Exacerbation plan Chest Xray Additional Comments: On continuous o2 2-3lpm Bipap at night Body mass index (BMI) of 40. 0 to 44.9 in adult 07/08/2023 07/09/2024 Overview: Per Obesity protocol Atherosclerosis of [place] co ronary artery without angina pectoris 07/05/2023 08/29/2023 Dyspnea 07/04/2023 08/13/2023 Occupational exposure in workplace 07/04/2023 02/14/2024 Chronic congestive heart failure 06/08/2023 07/05/2023 COPD, severe 06/08/2023 07/11/2023 Overview: Per COPD GOLD Classification Chronic hypoxemic respiratory failure 06/08/2023 07/04/2023 Chronic respiratory failure with hypoxia, on home oxygen therapy 06/08/2023 08/29/2023 Diabetes mellitus without complication 06/08/2023 08/29/2023 documented as of this encounter (statuses as of 08/22/2024) Immunizations Name Administration Dates Next Due Pneumococcal [...] No 07/17/2024 Does the household have a [facility] [place] source of income? (Household - for ages [...] encounter Miscellaneous Notes * Telephone Encounter - rFed Pena [facility] - 08/22/2024 11:00 AM EDTRefused Prescriptions: Disp Refills Spironolactone 25 MG Oral Tablet ([place]*15 Tab*0 Sig: TAKE HALF TABLET BY MOUTH DAILYRefused By: Jimmy PENA for Refusal: Other (comment below)Reason for Refusal Comment: 1 year supply sent to [facility] 01/20/24 * Telephone Encounter - Fred Pena RPh - 08/22/2024 10:49 AM EDT Pharmacy requesting refills of Spironolactone 12.5mg daily. Per 06/15/24 OV note: "Was seen by cardio - decreased spironolactone to 12.5 mg due to high dose IV lasix but now ok to take full tab Some weight gain still .....Please resume spironolactone 25 mg daily " A new prescription was sent to [facility] for the current dosing 01/20/24 for 1 year supply. Thanks, Fred Pena Rph, Pharm D. Clinical Pharmacist Centralized Clinical Pharmacy Services/[facility] [phone] 08/22/2024,10:59 AM documented in this encounter Plan of Treatment Upcoming Encounters Date Type Department Care Team (Late st Contact Info) Description 09/02/2024 3:00 PM EST [facility] [address] [place] [phone] Audrey Lee, [address] [place] [address] 09/07/2024 7:00 AM EST Laboratory Lab Mobile Phlebotomy [facility] [address] [place] [address] Mvmg, [facility] Mobile Home Draw [address] [place] [address] 09/08/2024 6:00 AM EST Anticoagulation Centralized Clinical Pharmacy Services, [facility] Peace [address] [place] [address] [place] [address] [place] [address] 09/10/2024 10:00 AM EST [facility] [address] [place] [address] Michelle Kim RN [address] [place] [address] 10/06/2024 2:40 PM EST Office Visit [facility] [address] [facility] [phone] Charley Crane MD [address] [place] [address] Health Maintenance Due Date Last Done Comments Alpha-1 Antitrypsin 1974 CKD PHOS USE SMARTSET 17765 1974 DTap/Tdap Vaccines (1 - Tdap) 1975 [...] 04/28/2024, , 09/09/2023 CKD HGB USE SMARTSET 85732 06/15/202506/15, 06/15/2024, 05/27/2024, Additional history exists Diabetic [...] filedocumented as of this encounter Care Teams Auger Operator Relationship Specialty Start Date End Date Charley Crane MD [address] [place] [address] PCP - General Internal Medicine 06/04/23 documented as of this encounter
--- OUTSIDE RECORDS SUMMARY | 2024-09-13 13:40 | External Medical Summary | Summary of Care ---
Author Name Unknown Organization [facility] Address [address] [place] [address] Phone [phone] Care Team Providers Care Fashion Patternmaker Name Role Phone Charley Crane MD Primary Care Provider [phone] Encounter Details Date Type Department Care Team (Late st Contact Info) Description 05/12/2024 Telephone Orthopaedics [facility] [address] [place] [place] [address] Steffanie Alfaro PA-C [address] [place] [address] Allergies Active Allergy Reactions Criticality Noted Date Comments Cephalexin Other (Please comment) 08/03/2024 Taking it effect his warfarin documented as of this encounter (statuses as of 08/11/2024) Medications Medication Sig Dispensed Refills Start Date [...] the morning. 90 Tablet 3 01/20/20 Active Spironolactone 25 MG Oral Tablet (Aldactone) [...] FOR SHORTNESS OF BREATH, Reported on 06/03/2024 Ketoconazole 2 % External CreamIndications: Seborrheic dermatitis Apply to dry patches on face once daily 30 g 1 08/13/20 23 024 Discontinued(Mo dication List Clean Up) Zoster Vac Recomb Adjuvanted 50 MCG/0.5ML Intramuscular Suspension Reconstituted (Shingrix) Inject 0.5 mL into a large muscle now and repeat dose in 60 to 180 days 1 Each 1 11/13/20 23 024 Discontinued(Tip flores preference/disc ontinuation) Zoster Vac Recomb Adjuvanted 50 MCG/0.5ML Intramuscular Suspension Reconstituted (Shingrix) Inject 0.5 mL into a large muscle now and repeat dose in 60 to 180 days 1 Each 1 11/26/19 24 024 Discontinued(Tip flores preference/disc ontinuation) guaiFENesin ER 600 MG Oral Tablet Extended Release 12 Hour (Mucinex) Take 1 Tablet by mouth 2 times a day. 024 Discontinued(Me dication/Dose Changed) Doxycycline Hyclate 100 MG Oral Capsule Take 1 Capsule by mouth in the morning and 1 Capsule before bedtime. Until gone. COPD rescue kit. 20 Capsule 01/23/20 24 024 Discontinued(Re fill) predniSONE 20 MG Oral Tablet (Deltasone) Take 2 Tablets by mouth in the morning. COPD rescue kit. 10 Tablet 01/23/20 24 024 Discontinued predniSONE 20 MG Oral Tablet (Deltasone) Take 2 Tablets by mouth in the morning for 5 days. 10 Tablet 05/05/20 24 024 Discontinued(Re fill) Doxycycline Hyclate 100 MG Oral Capsule Take 1 Capsule by mouth in the morning and 1 Capsule before bedtime. Do all this for 10 days. Until gone.. 20 Capsule 05/05/20 24 024 Discontinued(Re fill) documented as of this encounter (statuses as of 08/11/2024) Active Problems Problem Noted Date Diagnosed Date [...] goal LDL below 70 07/17/2023 Atherosclerosis of [place] co 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 Jardiance) Remote Patient Monitoring Vendor: [facility] [place]s): Connected Scale Continuous Monitoring Device Self [...] as of this encounter (statuses as of 08/11/2024) Resolved Problems Problem Noted Date Diagnosed Date [...] Classes - JULIA Class D - Inhaled Jrntodiuzsiwnj-ZHAC-WEBV Combination Inhaler (Sandro) Remote Patient Monitoring Vendor: [facility] Device(s): Continuous Monitoring Device Traditional Scale Self-Management plan High frequency nebulizer treatments every 4-6 hours around the clock Exacerbation plan Chest Xray Additional Comments: On continuous o2 2-3lpm Bipap at night Body mass index (BMI) of 40. 0 to 44.9 in adult 07/08/2023 07/09/2024 Overview: Per Obesity protocol Atherosclerosis of [place] co ronary artery without angina pectoris 07/05/2023 08/29/2023 Dyspnea 07/04/2023 08/13/2023 Occupational exposure in workplace 07/04/2023 02/14/2024 Chronic congestive heart failure 06/08/2023 07/05/2023 COPD, severe 06/08/2023 07/11/2023 Overview: Per COPD GOLD Classification Chronic hypoxemic respiratory failure 06/08/2023 07/04/2023 Chronic respiratory failure with hypoxia, on home oxygen therapy 06/08/2023 08/29/2023 Diabetes mellitus without complication 06/08/2023 08/29/2023 documented as of this encounter (statuses as of 08/11/2024) Immunizations Name Administration Dates Next Due Pneumococcal [...] No 07/17/2024 Does the household have a [place] [...] encounter Miscellaneous Notes * Telephone Encounter - Aracely Garay CMA - 05/12/2024 11:54 AM EDT Leave it on for the , but we need to be sure he has completed his antibiotics before Josue sees him. * Telephone Encounter - Aracely Garay CMA - 05/12/2024 11:24 AM EDT I called [facility] at 11:22am 05/12/24 giving him the information that he has to complete his antibioticsprior to receiving any knee injections. [facility] voiced understanding and stated that is why he did notcome in today for his 11 am appt and has take 3 out of the 10 pills. Will reschedule for next week. documented in this encounter Plan of Treatment Upcoming Encounters Date Type Department Care Team (Late st Contact Info) Description 08/14/2024 10:00 AM EDT Home Visit [facility] [address] [address] Michelle Kim RN [address] [place] [address] 08/17/2024 7:15 AM EDT Laboratory Lab Mobile Phlebotomy [facility] [address] [employer] [place] [address] [facility], Gml Mobile Home Draw [address] [employer] [place] [address] 08/18/2024 6:00 AM EDT Anticoagulation Centralized Clinical [facility] Services, Oscarronan Peace [address] [place] [address] [place] [address] [place] [address] 09/02/2024 3:00 PM EST Office Visit [facility]tr [facility] [address] [phone] Audrey Lee DO [address] [place] [address] 10/06/2024 2:40 PM EST [facility] [place] [address] [address] [facility] [phone] Charley Crane MD [address] [place] [address] Health Maintenance Due Date Last Done Comments Alpha-1 Antitrypsin 1974 CKD PHOS USE SMARTSET 34639 1974 DTap/Tdap Vaccines (1 - Tdap) 1975 [...] 04/28/2024, , 09/09/2023 CKD HGB USE SMARTSET 57075 06/15/202506/15, 06/15/2024, 05/27/2024, Additional history exists Diabetic Foot Exam 06/15/2025 06/15/2024, 06/21/2023 O2 ASSESSMENT COMPLETED IN PAST YEAR FOR COPD 08/03/2025 08/03/2024 Pneumococcal Vaccine: 65+ Years Completed 07/05/2023 Zoster [...] filedocumented as of this encounter Care Teams Fashion Patternmaker Relationship Specialty Start Date End Date Charley Crane MD [address] [place] [address] PCP - General Internal Medicine 06/04/23 documented as of this encounter
--- OUTSIDE RECORDS SUMMARY | 2024-09-13 13:40 | External Medical Summary | Summary of Care ---
Author Name Unknown Organization [facility] Address [address] [place] [address] Phone [phone] Care Team Providers Care Performance Test Architect Name Role Phone Charley Crane MD Primary Care Provider [phone] Encounter Details Date Type Department Care Team (Late st Contact Info) Description 08/14/2024 10:00 AM EDT [facility] 132 [facility] [place] [address] Michelle Kim, RN 132 [place] [address] Allergies Active Allergy Reactions Criticality Noted Date Comments Cephalexin Other (Please comment) 08/03/2024 Taking it effect his warfarin documented as of this encounter (statuses as of 08/14/2024) Medications Medication Sig Dispensed Refills Start Date [...] ons:COPD, group D, by GOLD 2017 classification (HCC) [...] as of this encounter (statuses as of 08/14/2024) Active Problems Problem Noted Date Diagnosed Date [...] COPD, group D, by GOLD 2017 classification 01/08 /2024 Overview: Per COPD GOLD Classification USP current use of anticoagulant therapy 0 2023 Longstanding persistent atrial fibrillation 06/29 Last Assessment & Plan: Rate controlled Continue coumadin Hypertension goal BP (blood pressure) < 130/80 0 07/17/2023 Dyslipidemia, goal LDL below 70 07/17/2023 Atherosclerosis of [place] co 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 Jardiance) Remote Patient Monitoring Vendor: [facility] [place] Device(s): Connected Scale Continuous Monitoring Device Self [...] as of this encounter (statuses as of 08/14/2024) Resolved Problems Problem Noted Date Diagnosed Date [...] Classes - JULIA Class D - Inhaled Ozlsgnqhwylctt-TUGL-MJVY Combination Inhaler (Sandro) Remote Patient Monitoring Vendor: [facility] Device(s): Continuous Monitoring Device Traditional Scale Self-Management plan High frequency nebulizer treatments every 4-6 hours around the clock Exacerbation plan Chest Xray Additional Comments: On continuous o2 2-3lpm Bipap at night Body mass index (BMI) of 40. 0 to 44.9 in adult 07/08/2023 07/09/2024 Overview: Per Obesity protocol Atherosclerosis of [place] co ronary artery without angina pectoris 07/05/2023 08/29/2023 Dyspnea 07/04/2023 08/13/2023 Occupational exposure in workplace 07/04/2023 02/14/2024 Chronic congestive heart failure 06/08/2023 07/05/2023 COPD, severe 06/08/2023 07/11/2023 Overview: Per COPD GOLD Classification Chronic hypoxemic respiratory failure 06/08/2023 07/04/2023 Chronic respiratory failure with hypoxia, on home oxygen therapy 06/08/2023 08/29/2023 Diabetes mellitus without complication 06/08/2023 08/29/2023 documented as of this encounter (statuses as of 08/14/2024) Immunizations Name Administration Dates Next Due Pneumococcal [...] No 07/17/2024 Does the household have a [facility] source of income? (Household - for [...] Sign Reading Time Taken Comments Blood Pressure 116/60 08/14/2024 10:53 AM EDT Pulse 68 08/14/2024 10:53 AM EDT Temperature 36.3 C (97.3 F) 08/14/2024 1 0:53 AM EDT Respiratory Rate 18 08/14/2024 10:5 3 AM EDT Oxygen Saturation 98% 08/14/2024 10: 53 AM EDT o2 on at 2 l/min via nc Inhaled Oxygen Concentration - - Weight - - Height - - Body Mass Index - - documented in this encounter Progress Notes * Michelle Kim RN - 08/14/2024 10:33 AM EDT Current Concerns: Seen for return RNCM visit Continues to have [facility] for SN, PT, OT Using zinc oxide on b/l buttocks - has stage 2 on left buttock, approximately 5cm x 0.2cm No open areas noted in inner thighs Redness under breasts has resolved Pt reports he has been keeps track of weights daily but has no log of it Reports his weight has been staying stable around 298 lbs but sometimes forgets to weigh before getting dressed and eating and it is up to 308 lbs Feels he is slowly getting back to baseline but still has weakness from hospitalization Physical Exam: Physical Exam Constitutional: General: He is not in acute distress. Appearance: He is obese. Cardiovascular: Rate and Rhythm: Normal rate and regular rhythm. Pulses: Normal pulses. Heart sounds: Normal heart sounds. Pulmonary: Effort: Pulmonary effort is normal. Breath sounds: Normal breath sounds. Abdominal: Palpations: Abdomen is soft. Musculoskeletal: Right [...] will maintain optimal mobility & activity level. (Progressing) Start: 07/31/24 Expected End: 11/26/24 Patient will achieve & maintain optimal fluid balance. (Progressing) Start: 07/31/24 Expected End: 11/26/24 Patient will have improved cardiac output. (Progressing) Start: 07/31/24 Expected End: 11/26/24 GS - Patient/caregiver will verbalize an understanding of diagnosis, treatment and self management of chronic obstructive pulmonary disease (COPD) (Progressing) Start: 07/09/24 Expected End: 01/25/25 GS - Patient/caregiver will verbalize signs/symptoms of a COPD exacerbation. (Progressing) Start: 07/09/24 Expected End: 01/25/25 Patient will achieve & maintain effective breathing pattern. (Progressing) Start: 07/31/24 Expected End: 11/26/24 Orders Placed: No orders of the defined types were placed in this encounter. Medications Given: Care Gaps: Care Gaps Care gaps closed this contact:: Plan of Care (POC);Medications;Education (08/14/24 1049) Type of education: Clinical/disease (08/14/24 1049) Type of medication care gap: Medication adherence (08/14/24 104) Type of plan of care (POC) care gap: Adjustment of plan of care (POC) and/or Integrated Care Plan (ICP);Education and review of exacerbation plan (08/14/24 104) documented in this encounter Plan of Treatment Upcoming Encounters Date Type Department Care Team (Late st Contact Info) Description 08/17/2024 7:15 AM EDT Laboratory Lab Mobile Phlebotomy [facility] [address] [place] [address] M[facility], Gml Mobile Home Draw [address] [place] [address] 08/18/2024 6:00 AM EDT Anticoagulation Centralized Clinical Pharmacy Services, Oscar Peace [address] [place] [address] [place] [address] [place] [address] 09/02/2024 3:00 PM EST Office Visit [facility] Disorders Ctr [facility] [address] [address] [phone] Audrey Lee DO [address] [place] [address] 09/10/2024 10:00 AM EST [facility] [address] [place] [address] [address] Michelle Kim RN [address] [place] [address] 10/06/2024 2:40 PM EST Office Visit [facility] [place] [address] [place] [address] Charley Crane MD [address], [place] [phone] Health Maintenance Due Date Last Done Comments Alpha-1 Antitrypsin 1974 CKD PHOS USE SMARTSET 51501 1974 DTap/Tdap Vaccines (1 - Tdap) 1975 [...] 04/28/2024, , 09/09/2023 CKD HGB USE SMARTSET 19061 06/15/202506/15, 06/15/2024, 05/27/2024, Additional history exists Diabetic [...] filedocumented as of this encounter Care Teams Performance Test Architect Relationship Specialty Start Date End Date Charley Crane MD [address] [place] [address] PCP - General Internal Medicine 06/04/23 documented as of this encounter
--- OUTSIDE RECORDS SUMMARY | 2024-09-13 13:40 | External Medical Summary | Summary of Care ---
Author Name Unknown Organization [facility] Address [address] [place] [place] [address] Phone [phone] Care Team Providers Care Physician Primary Care Sports Medicine Name Role Phone Charley Crane MD Primary Care Provider [phone] Reason for Visit * Reason Onset Date Comments [facility]: Maintenance 08/14/2024 Encounter Details Date Type Department Care Team (Late st Contact Info) Description 08/14/2024 Telephone [facility] [address] [place] [address] Michelle Kim, RN 132 [facility] [address] [facility]: Maintenance Allergies Active Allergy Reactions Criticality Noted Date Comments Cephalexin Other (Please comment) 08/03/2024 Taking it effect his warfarin documented as of this encounter (statuses as of 08/18/2024) Medications Medication Sig Dispensed Refills Start Date [...] as of this encounter (statuses as of 08/18/2024) Active Problems Problem Noted Date Diagnosed Date [...] goal LDL below 70 07/17/2023 Atherosclerosis of [place] co 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 Jardiance) Remote Patient Monitoring Vendor: [facility] Device(s): Connected Scale Continuous [...] as of this encounter (statuses as of 08/18/2024) Resolved Problems Problem Noted Date Diagnosed Date [...] the room") Medication Regimen All Classes - JULAI Class D - Inhaled Rvdknmyarxlowz-YBTA-MUKW Combination Inhaler (Silverllegy) Remote Patient Monitoring Vendor: [facility] Device(s): Continuous Monitoring Device Traditional Scale Self-Management plan High frequency nebulizer treatments every 4-6 hours around the clock Exacerbation plan Chest Xray Additional Comments: On continuous o2 2-3lpm Bipap at night Body mass index (BMI) of 40. 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 pectoris 07/05/2023 08/29/2023 Dyspnea 07/04/2023 08/13/2023 Occupational exposure in workplace 07/04/2023 02/14/2024 Chronic congestive heart failure 06/08/2023 07/05/2023 COPD, severe 06/08/2023 07/11/2023 Overview: Per COPD GOLD Classification Chronic hypoxemic respiratory failure 06/08/2023 07/04/2023 Chronic respiratory failure with hypoxia, on home oxygen therapy 06/08/2023 08/29/2023 Diabetes mellitus without complication 06/08/2023 08/29/2023 documented as of this encounter (statuses as of 08/18/2024) Immunizations Name Administration Dates Next Due Pneumococcal [...] encounter Miscellaneous Notes * Telephone Encounter - Cahrley Crane MD - 08/18/2024 2:12 PM EDT [...] PM EST Office Visit [facility] [address] [address] [phone] Audrey Lee DO [address] [place] [address] 09/07/2024 7:00 AM EST Laboratory Lab Mobile Phlebotomy [facility] [facility] [address] [facility] Gml Mobile Home Draw [address] [employer] [facility] [address] 09/08/2024 6:00 AM EST Anticoagulation Centralized Clinical Pharmacy Services, Oscar [address] [place] [address] [place] [address] 09/10/2024 10:00 AM EST [facility] [address] [address] [address] Michelle Kim RN [address] [place] [address] 10/06/2024 2:40 PM EST Office [facility] [place] [address] [facility] [phone] Charley Crane MD [address] [facility] [address] Scheduled Orders Name Type Priority Associated Diagnoses [...] Alpha-1 Antitrypsin 1974 CKD PHOS USE SMARTSET 11237 1974 DTap/Tdap Vaccines (1 - Tdap) 1975 [...] 04/28/2024, , 09/09/2023 CKD HGB USE SMARTSET 41328 06/15/202506/15, 06/15/2024, 05/27/2024, Additional history exists Diabetic [...] (HCC) documented in this encounter Care Teams Physician Primary Care Sports Medicine Relationship Specialty Start Date End Date hCarley Crane MD [address] [place] [address] PCP - General Internal Medicine 06/04/23 documented as of this encounter
--- OUTSIDE RECORDS SUMMARY | 2024-09-13 13:40 | External Medical Summary | Summary of Care ---
Author Name Unknown Organization [facility] Address [address] [facility] [address] Phone [phone] Care Team Providers Care Sales Representative Meats Name Role Phone Charley Crane MD Primary Care Provider [phone] Reason for Visit * Reason Comments Dosage Adjustment Via Phone (anticoag Cl inic) Encounter Details Date Type Department Care Team (Late st Contact Info) Description 08/18/2024 6:00 AM EDT Anticoagulation Centralized Clinical Pharmacy Services, Oscar Peace [address] [place] [address] [place] [address] [place] [address] terminal makeup operator current use of anticoagulant therapy*; Longstanding [...] D, by GOLD 2017 classification ([facility]) Take 2 Tablets by mouth in [...] 11/04 Overview: Per COPD GOLD Classification terminal makeup operator current use of anticoagulant therapy 0 2023 Longstanding persistent atrial fibrillation 06/29 Last Assessment & Plan: Rate controlled Continue coumadin Hypertension goal BP (blood pressure) < 130/80 0 07/17/2023 Dyslipidemia, goal LDL below 70 07/17/2023 Atherosclerosis of [place] co 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 Jardiance) Remote Patient Monitoring Vendor: [facility] [place] Device(s): Connected Scale Continuous Monitoring [...] Classes - JULIA Class D - Inhaled Eabnaleggcjwoa-CQFG-CYYR Combination Inhaler (Sandro) Remote Patient Monitoring Vendor: [facility] Device(s): Continuous Monitoring Device Traditional Scale Self-Management plan High frequency nebulizer treatments every 4-6 hours around the clock Exacerbation plan Chest Xray Additional Comments: On continuous o2 2-3lpm Bipap at night Body mass index (BMI) of 40. 0 to 44.9 in adult 07/08/2023 07/09/2024 Overview: Per Obesity protocol Atherosclerosis of [place] co ronary artery without angina pectoris 07/05/2023 [...] No 07/17/2024 Does the household have a [facility] source [facility] income? (Household - for [...] this encounter Progress Notes * Kristina Faust, energy trader - 08/18/2024 9:14 AM EDT Contacts Contact Date/Time Type Contact Phone/Fax 08/18/2024 09:10 AM EDT Phone (Outgoing) Bala Corondao Jr. (Self) [phone] (M) Left Message Subjective Advised patient to contact Anticoagulation Clinic if any unusual bruising or bleeding, recent illness, changes in medication, or questions/concerns. PT/INR results, Coumadin dose instructions, and next PT/INR date communicated as noted by Pharmacist: AMANDO Lundy 08/18/2024, 9:14 AM * Isabel Li RPh - 08/18/2024 8:13 AM EDT Coumadin Clinic (region specific) Objective Current Warfarin Dose As of 08/18/2024 Warfarin maintenance plan: 10 mg (10 mg x 1) every Mon, Wed, Fri; 15 mg (10 mg x 1.5) all other days INR Result As of 08/18/2024 INR goal: 2.0-3.0 INR used for dosin.1 (08/17/2024) Assessment & Plan Warfarin Plan As of 08/18/2024 Full warfarin instructions: 10 mg every Mon, Wed, Fri; 15 mg all other days No change documented: Isabel Li RPh Next INR check: 09/07/2024 Is pt still getting pill packs or would he be interested in GMO? Repeat PT/INR in 3 week(s) Weekly dose: not changed Additional Dosing Information: [facility] Warfarin NOT included Tech to contact patient with dose instructions as noted. Isabel Li RPh 08/18/2024, 8:13 AM documented in this encounter Plan of Treatment Upcoming Encounters Date Type Department Care Team (Late st Contact Info) Description 09/02/2024 3:00 PM EST Office Visit [facility] Disorders Ctr [facility] [address] [place] [phone] Audrey Lee DO [address] [place] [address] 09/08/2024 6:00 AM EST Anticoagulation Centralized Clinical Pharmacy Services, Oscar Peace [address] [place] [address] [place] [address] [facility] [address] [place] [address] 09/10/2024 10:00 AM EST [facility] Visit [facility], [facility] [address] [place] [address] Michelle Kim, RN [address] [place] [address] 10/06/2024 2:40 PM EST Office Visit [facility] [address] [place] [address] Charley Crane MD [address] [place] [address] Health Maintenance Due Date Last Done Comments Alpha-1 Antitrypsin 1974 CKD PHOS USE SMARTSET 26242 1974 DTap/Tdap Vaccines (1 - Tdap) 1975 [...] 04/28/2024, , 09/09/2023 CKD HGB USE SMARTSET 39995 06/15/202506/15, 06/15/2024, 05/27/2024, Additional history exists Diabetic [...] as of this encounter Visit Diagnoses Diagnosis terminal makeup operator current use of anticoagulant therapy- Primary Longstanding persistent atrial fibrillation (HCC) History of deep venous thrombosis (DVT) of distal vein of left lower extremity documented in this encounter Care Teams Sales Representative Meats Relationship Specialty Start Date End Date Charley Crane MD [address] [place] [address] PCP - General Internal Medicine 06/04/23 documented as of this encounter
--- OUTSIDE RECORDS SUMMARY | 2024-09-13 13:40 | External Medical Summary ---
Author Name UNSPECIFIED Address Unknown Organization [facility] History of Encounters Reason for Assessment: Start of care - f urther visits planned Inpatient discharge facility: Past 14 Da ys: Discharged From Short Stay Acute Hospital Most Recent Inpatient Discharge Date: Functional Assessment Patient Living Situation: Patient lives with other person(s) in the home: Around the clock When Dyspneic: With moderate exerti on (e.g., while dressing, using commode or bedpan, walking distances less than 20 feet) Bowel Incontinence Frequency: Very rarel y or never has bowel incontinence Cognitive and Behavioral and Psychiatric Symptoms: None Current Ability: Bathing: able to partic ipate in bathing self in shower or tub, but requires presence of another person throughout the bath for assistance or supervision. Current Ability: Ambulation: Able to wal k only with the supervision or assistance of another person at all times. Current: Management Of Oral Medications: Unable to take medication unless administered by another person Problems Primary Home Care Diagnosis ICD Code: I1 1.0, Hypertensive heart disease with heart failure Home Care Diagnosis 1: ICD Code: I50.33, Acute on chronic diastolic (congestive) heart failure Home Care Diagnosis 1: Severity Ratin Home Care Diagnosis 2: ICD Code: I27.20^ ^ Home Care Diagnosis 2: Severity Ratin Home Care Diagnosis 3: ICD Code: J96.21, Acute and chronic respiratory failure with hypoxia Home Care Diagnosis 3: Severity Ratin Home Care Diagnosis 4: ICD Code: J96.22, Acute and chronic respiratory failure with hypercapnia Home Care Diagnosis 4: Severity Ratin Home Care Diagnosis 5: ICD Code: J44.9, Chronic obstructive pulmonary disease, unspecified Home Care Diagnosis 5: Severity Ratin
--- OUTSIDE RECORDS SUMMARY | 2024-09-13 13:40 | External Medical Summary | Summary of Care ---
Author Name Unknown Organization [facility] Address [address] [place] [facility] [place] [place] [address] Phone [phone] Care Team Providers Care Pipe Foreman Name Role Phone Charley Crane MD Primary Care Provider Reason for Visit * Reason Onset Date Comments [facility]: Maintenance 08/14/2024 Encounter Details Date Type Department Care Team (Late st Contact Info) Description 08/14/2024 Telephone [facility] [address] [place] [address] Michelle Kim, RN [address] [facility] [place] [place] [id number] [facility]: Maintenance Allergies Active Allergy Reactions Criticality Noted Date Comments Cephalexin Other (Please comment) 08/03/2024 Taking it effect his warfarin documented as of this encounter (statuses as of 08/21/2024) Medications Medication Sig Dispensed Refills Start Date [...] as of this encounter (statuses as of 08/21/2024) Active Problems Problem Noted Date Diagnosed Date [...] classification 11/04 Overview: Per COPD GOLD Classification supervisor intermediates current use of anticoagulant therapy 0 2023 Longstanding persistent atrial fibrillation 06/29 Last Assessment & Plan: Rate controlled Continue coumadin Hypertension goal BP (blood pressure) < 130/80 0 07/17/2023 Dyslipidemia, goal LDL below 70 07/17/2023 Atherosclerosis of [place] co 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 Jardiance) Remote Patient Monitoring Vendor: [facility] Device(s): Connected Scale [...] as of this encounter (statuses as of 08/21/2024) Resolved Problems Problem Noted Date Diagnosed Date [...] Classes - JULIA Class D - Inhaled Zsmcttskoqvxwv-MOJB-SFVB Combination Inhaler (Silverllegy) Remote Patient Monitoring Vendor: [facility] Device(s): Continuous Monitoring Device Traditional Scale Self-Management plan High frequency nebulizer treatments every 4-6 hours around the clock Exacerbation plan Chest Xray Additional Comments: On continuous o2 2-3lpm Bipap at night Body mass index (BMI) of 40. 0 to 44.9 in adult 07/08/2023 07/09/2024 Overview: Per Obesity protocol Atherosclerosis of [place] co ronary artery without angina pectoris 07/05/2023 08/29/2023 Dyspnea 07/04/2023 08/13/2023 Occupational exposure in workplace 07/04/2023 02/14/2024 Chronic congestive heart failure 06/08/2023 07/05/2023 COPD, severe 06/08/2023 07/11/2023 Overview: Per COPD GOLD Classification Chronic hypoxemic respiratory failure 06/08/2023 07/04/2023 Chronic respiratory failure with hypoxia, on home oxygen therapy 06/08/2023 08/29/2023 Diabetes mellitus without complication 06/08/2023 08/29/2023 documented as of this encounter (statuses as of 08/21/2024) Immunizations Name Administration Dates Next Due Pneumococcal [...] PM EST Office Visit [facility] [address] [place] [phone] Audrey Lee, [address] [place] [address] 09/07/2024 7:00 AM EST Laboratory [facility] [address] [place] [address] [facility], [facility] [address] [place] [address] 09/08/2024 6:00 AM EST Anticoagulation [facility], Oscar Peace [address] [place] [address] [place] [address] [place] [address] 09/10/2024 10:00 AM EST Home Visit [facility] at [facility] [address] [facility] [place] [address] Michelle Kim, RN [address] [place] [address] 10/06/2024 2:40 PM EST Office Visit [facility] [address] [place] [address] Charley Crane MD [address], [place] [phone] Scheduled Orders Name Type Priority Associated Diagnoses [...] Alpha-1 Antitrypsin 1974 CKD PHOS USE SMARTSET 69622 1974 DTap/Tdap Vaccines (1 - Tdap) 1975 [...] 04/28/2024, , 09/09/2023 CKD HGB USE SMARTSET 20404 06/15/202506/15, 06/15/2024, 05/27/2024, Additional history exists Diabetic [...] (HCC) documented in this encounter Care Teams Pipe Foreman Relationship Specialty Start Date End Date Charley Crane MD [address] [place] [address] PCP - General Internal Medicine 06/04/23 documented as of this encounter
--- OUTSIDE RECORDS SUMMARY | 2024-09-13 13:40 | External Medical Summary | Summary of Care ---
Author Name Unknown Organization [facility] Address [address] [place] [address] Phone [phone] Care Team Providers Care Yard Worker Name Role Phone Charley Crane MD Primary Care Provider [phone] Encounter Details Date Type Department Care Team (Late st Contact Info) Description 08/11/2024 Population Health External Data Unspecified Department Allergies Active Allergy Reactions Criticality Noted Date Comments Cephalexin Other (Please comment) 08/03/2024 Taking it effect his warfarin documented as of this encounter (statuses as of 08/12/2024) Medications Medication Sig Dispensed Refills Start Date [...] in the morning. 90 Tablet 3 Active Additional Information Patient taking differently: 12.5 mgOral Daily(AM), Reported on 06/03/2024 Torsemide 20 MG Oral Tablet (Demadex) Take 2 tablets by mouth once daily 180 Tablet 3 Active Additional Information Patient taking differently: 40 [...] ons:COPD, group D, by GOLD 2017 classification ([facility]) Take 2 Tablets by mouth [...] as of this encounter (statuses as of 08/12/2024) Active Problems Problem Noted Date Diagnosed Date [...] goal LDL below 70 07/17/2023 Atherosclerosis of [place] co ronary artery without angina pectoris 07/05/2023 [...] as of this encounter (statuses as of 08/12/2024) Resolved Problems Problem Noted Date Diagnosed Date [...] Classes - JULIA Class D - Inhaled Agryxvcodshduh-DBIA-TTWR Combination Inhaler (Sandro) Remote Patient Monitoring Vendor: [facility] Device(s): Continuous Monitoring Device Traditional Scale Self-Management plan High frequency nebulizer treatments every 4-6 hours around the clock Exacerbation plan Chest Xray Additional Comments: On continuous o2 2-3lpm Bipap at night Body mass index (BMI) of 40. 0 to 44.9 in adult 07/08/2023 07/09/2024 Overview: Per Obesity protocol Atherosclerosis of [place] co ronary artery without angina pectoris 07/05/2023 08/29/2023 Dyspnea 07/04/2023 08/13/2023 Occupational exposure in workplace 07/04/2023 02/14/2024 Chronic congestive heart failure 06/08/2023 07/05/2023 COPD, severe 06/08/2023 07/11/2023 Overview: Per COPD GOLD Classification Chronic hypoxemic respiratory failure 06/08/2023 07/04/2023 Chronic respiratory failure with hypoxia, on home oxygen therapy 06/08/2023 08/29/2023 Diabetes mellitus without complication 06/08/2023 08/29/2023 documented as of this encounter (statuses as of 08/12/2024) Immunizations Name Administration Dates Next Due Pneumococcal [...] Description 08/14/2024 10:00 AM EDT [facility] [address] [facility] [place] [address] Michelle Kim RN [address] [place] [address] 08/17/2024 7:15 AM EDT Laboratory Lab [facility] [address] [place] [address] [facility], [facility] Draw [address] [place] [address] 08/18/2024 6:00 AM EDT Anticoagulation [facility], Oscar Peace [address] [place] [address] [place] [address] [facility], [address] [place] [address] 09/02/2024 3:00 PM EST Office Visit [facility] [address] [place] [phone] Audrey Lee DO [address] [place] [address] 10/06/2024 2:40 PM EST Office Visit [facility] [address] [place] [facility] [place] [phone] Charley Crane MD [address] [place] [address] Health Maintenance Due Date Last Done Comments Alpha-1 Antitrypsin 1974 CKD PHOS USE SMARTSET 70504 1974 DTap/Tdap Vaccines (1 - Tdap) 1975 [...] 04/28/2024, , 09/09/2023 CKD HGB USE SMARTSET 06811 06/15/202506/15, 06/15/2024, 05/27/2024, Additional history exists Diabetic [...] filedocumented as of this encounter Care Teams Yard Worker Relationship Specialty Start Date End Date Charley Crane MD [address] [place] [address] PCP - General Internal Medicine 06/04/23 documented as of this encounter
--- OUTSIDE RECORDS SUMMARY | 2024-09-13 13:40 | External Medical Summary | Summary of Care ---
Author Name Unknown Organization [facility] Address [address] [facility] [place] [address] Phone [phone] Care Team Providers Care Pack Mule Worker Name Role Phone Charley Crane MD Primary Care Provider [phone] Reason for Visit * Reason Onset Date Comments [facility]: Maintenance 08/14/2024 Encounter Details Date Type Department Care Team (Late st Contact Info) Description 08/14/2024 Telephone [facility], [facility] [address] [place] [address] Michelle Kim, RN [address] [facility] [place] [address] [facility]: Maintenance Allergies Active Allergy [...] goal LDL below 70 07/17/2023 Atherosclerosis of [place] co ronary artery without angina pectoris 07/05/2023 [...] Classes - JULIA Class D - Inhaled Zkxfxnewycszci-TZGF-OXUS Combination Inhaler (Silverllegy) Remote Patient Monitoring Vendor: [facility] Device(s): Continuous Monitoring Device Traditional Scale Self-Management plan High frequency nebulizer treatments every 4-6 hours around the clock Exacerbation plan Chest Xray Additional Comments: On continuous o2 2-3lpm Bipap at night Body mass index (BMI) of 40. 0 to 44.9 in adult 07/08/2023 07/09/2024 Overview: Per Obesity protocol Atherosclerosis of [place] co ronary artery without angina pectoris 07/05/2023 [...] encounter Miscellaneous Notes * Telephone Encounter - Johana Kennedy LPN [...] Non fasting please * Telephone Encounter - Mcihelle Kim RN - 08/14/2024 11:02 AM EDT [...] Ctr [facility] [address] [place] [phone] Audrey Lee DO [address] [place] [place] [address] 09/07/2024 7:00 AM EST Laboratory [facility] [address] [facility] [place] [address] [facility], [facility] [address] [facility] [place] [address] 09/08/2024 6:00 AM EST Anticoagulation [facility] Clinical [facility] Services, Oscar Peace [address] [place] [address] [place] [address] [facility], [address] [place] [address] 09/10/2024 10:00 AM EST Home Visit [facility], [facility] [address] [place] [place] [address] Michelle Kim, RN [address] [place] [address] 10/06/2024 2:40 PM EST Office Visit [facility] [address] [place] [phone] Charley Crane MD [address] [place] [address] Scheduled Orders Name Type Priority Associated Diagnoses [...] Alpha-1 Antitrypsin 1974 CKD PHOS USE SMARTSET 58227 1974 DTap/Tdap Vaccines (1 - Tdap) 1975 [...] 04/28/2024, , 09/09/2023 CKD HGB USE SMARTSET 84713 06/15/202506/15, 06/15/2024, 05/27/2024, Additional history exists Diabetic [...] (HCC) documented in this encounter Care Teams Pack Mule Worker Relationship Specialty Start Date End Date Charley Crane MD [address] [place] [address] PCP - General Internal Medicine 06/04/23 documented as of this encounter
--- OUTSIDE RECORDS SUMMARY | 2024-09-13 13:40 | External Medical Summary | Summary of Care ---
Author Name Unknown Organization [facility] Address [address] [place] [address] Phone [phone] Care Team Providers Care Billing Machine Operator Name Role Phone Charley Crane MD Primary Care Provider [phone] Reason for Visit * Reason Onset Date Comments Forms Request 08/20/2024 VNA Encounter Details Date Type Department Care Team (Late st Contact Info) Description 08/20/2024 Telephone [facility]erged [facility] [address] [place] [address] Charley Crane MD [address] [place] [address] Forms Request (VNA) Allergies Active Allergy Reactions Criticality Noted Date Comments Cephalexin Other (Please comment) 08/03/2024 Taking it effect his warfarin documented as of this encounter (statuses as of 08/20/2024) Medications Medication Sig Dispensed Refills Start Date [...] group D, by GOLD 2017 classification ([facility]) Take 2 Tablets by [...] as of this encounter (statuses as of 08/20/2024) Active Problems Problem Noted Date Diagnosed Date [...] goal LDL below 70 07/17/2023 Atherosclerosis of [place] co 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 Jardiance) Remote Patient Monitoring Vendor: [facility] Device(s): Connected Scale Continuous Monitoring Device Self [...] as of this encounter (statuses as of 08/20/2024) Resolved Problems Problem Noted Date Diagnosed Date [...] Classes - JULIA Class D - Inhaled Yqwciqebchvdlp-EWFT-GVUQ Combination Inhaler (Sandro) Remote Patient Monitoring Vendor: [facility] Device(s): Continuous Monitoring Device Traditional Scale Self-Management plan High frequency nebulizer treatments every 4-6 hours around the clock Exacerbation plan Chest Xray Additional Comments: On continuous o2 2-3lpm Bipap at night Body mass index (BMI) of 40. 0 to 44.9 in adult 07/08/2023 07/09/2024 Overview: Per Obesity protocol Atherosclerosis of [place] co ronary artery without angina pectoris 07/05/2023 08/29/2023 Dyspnea 07/04/2023 08/13/2023 Occupational exposure in workplace 07/04/2023 02/14/2024 Chronic congestive heart failure 06/08/2023 07/05/2023 COPD, severe 06/08/2023 07/11/2023 Overview: Per COPD GOLD Classification Chronic hypoxemic respiratory failure 06/08/2023 07/04/2023 Chronic respiratory failure with hypoxia, on home oxygen therapy 06/08/2023 08/29/2023 Diabetes mellitus without complication 06/08/2023 08/29/2023 documented as of this encounter (statuses as of 08/20/2024) Immunizations Name Administration Dates Next Due Pneumococcal [...] Telephone Encounter - Ashely Garduno LPN - 08/20/2024 5:35 PM EDT Received Fax for BFPROVIDERS: Dr. Charley Crane ORDER received from [facility] and FAXED documented in this encounter Plan of Treatment Upcoming Encounters Date Type Department Care Team (Late st Contact Info) Description 09/02/2024 3:00 PM EST Office Visit [facility] [address] [place] [phone] Audrey Lee DO [address] [place] [address] 09/07/2024 7:00 AM EST Laboratory Lab [facility] [address] [facility] [place] [address] [facility], [facility] Draw [address] [facility] [place] [address] 09/08/2024 6:00 AM EST Anticoagulation Central[facility] Clinical [facility] Services, Oscar Peace [address] [place] [address] [place] [address] [facility], [address] [place] [address] 09/10/2024 10:00 AM EST [facility] Visit [facility], [facility] [address] [place] [address] Michelle Kim RN [address] [place] [address] 10/06/2024 2:40 PM EST Office Visit [facility] [address] [place] [phone] Charley Crane MD [address] [place] [address] Health Maintenance Due Date Last Done Comments Alpha-1 Antitrypsin 1974 CKD PHOS USE SMARTSET 02074 1974 DTap/Tdap Vaccines (1 - Tdap) 1975 Cologuard 2001 Colonoscopy 2001 Colorectal Cancer Screening 2001 Fecal Occult Blood Test 2001 Sigmoidoscopy 2001 AAA Screening 2021 COVID-19 Vaccine ( season) 2024 Influenza Vaccine (FLU shot) (#1) 2024 07/05/2023, 07/05/2023 GFR 12/16/2024 06/15/2024, 08/0 11/2023, 05/27/2024, Additional history exists HbA1c 12/16/2024 06/15/2024, 04/1 02/2024, 06/21/2023 Adult Wellness Visit 02/09/2025 02/10/2024 Albumin/Creatinine Ratio 02/09/2025 02/10/2024 Depression Screening 02/09/2025 02/10/2024 Diabetic Eye Exam 04/28/2025 04/28/2024, , 09/09/2023 CKD HGB USE SMARTSET 32338 06/15/202506/15, 06/15/2024, 05/27/2024, Additional history exists Diabetic [...] filedocumented as of this encounter Care Teams Billing Machine Operator Relationship Specialty Start Date End Date Charley Crane MD [address] [place] [address] PCP - General Internal Medicine 06/04/23 documented as of this encounter
--- OUTSIDE RECORDS SUMMARY | 2024-09-13 13:40 | External Medical Summary | Summary of Care ---
Author Name Unknown Organization [facility] Address [address] [place] [address] Phone [phone] Care Team Providers Care Nurse Emergency Room Name Role Phone Charley Crane MD Primary Care Provider [phone] Reason for Visit * Reason Onset Date Comments Forms Request 07/29/2024 [facility] Encounter Details Date Type Department Care Team (Late st Contact Info) Description 07/29/2024 Telephone [facility] [address] [place] [address] Charley Crane MD [address] [place] [address] Forms Request ([facility] form) Allergies Active Allergy Reactions Criticality Noted Date Comments Cephalexin Other (Please comment) 08/03/2024 Taking it effect his warfarin documented as of this encounter (statuses as of 08/19/2024) Medications Medication Sig Dispensed Refills Start Date [...] 2017 classification ([facility]) Take 2 Tablets by mouth in the morning. Rescue kit. Use only as instructed. 10 Tablet 4 Active documented as of this encounter (statuses as of 08/19/2024) Active Problems Problem Noted Date Diagnosed Date [...] goal LDL below 70 07/17/2023 Atherosclerosis of [place] co ronary artery without angina pectoris 07/05/2023 [...] as of this encounter (statuses as of 08/19/2024) Resolved Problems Problem Noted Date Diagnosed Date [...] Classes - JULIA Class D - Inhaled Tkxgjgrlkscuer-LUGB-HKQE Combination Inhaler (Sandro) Remote Patient Monitoring Vendor: Current [facility] Device(s): Continuous Monitoring Device Traditional Scale Self-Management plan High frequency nebulizer treatments every 4-6 hours around the clock Exacerbation plan Chest Xray Additional Comments: On continuous o2 2-3lpm Bipap at night Body mass index (BMI) of 40. 0 to 44.9 in adult 07/08/2023 07/09/2024 Overview: Per Obesity protocol Atherosclerosis of [place] co ronary artery without angina pectoris 07/05/2023 08/29/2023 Dyspnea 07/04/2023 08/13/2023 Occupational exposure in workplace 07/04/2023 02/14/2024 Chronic congestive heart failure 06/08/2023 07/05/2023 COPD, severe 06/08/2023 07/11/2023 Overview: Per COPD GOLD Classification Chronic hypoxemic respiratory failure 06/08/2023 07/04/2023 Chronic respiratory failure with hypoxia, on home oxygen therapy 06/08/2023 08/29/2023 Diabetes mellitus without complication 06/08/2023 08/29/2023 documented as of this encounter (statuses as of 08/19/2024) Immunizations Name Administration Dates Next Due Pneumococcal [...] Telephone Encounter - Ashely Garduno LPN - 07/29/2024 5:34 PM EDT Pt needs an appointment to have a oxygen testing done. Will need orders (Question is, is pt still in the hospital?) Room air resting Room air exercise Overnight on room air In order to fill the order request for oxygen at 3 L at home. thanks documented in this encounter Plan of Treatment Upcoming Encounters Date Type Department Care Team (Late st Contact Info) Description 09/02/2024 3:00 PM EST Office Visit [facility] [place] [address] [place] [phone] Audrey Lee, [address] [place] [address] 09/07/2024 7:00 AM EST Laboratory Lab [facility] [address] [place] [address] [facility], [facility] Draw [address] [place] [address] 09/08/2024 6:00 AM EST Anticoagulation Central[facility], Oscar Peace [address] [place] [address] [place] [address] [facility], [address] [place] [address] 09/10/2024 10:00 AM EST [facility], [facility] [address] [facility] [place] [address] Michelle Kim, RN [address] [place] [address] 10/06/2024 2:40 PM EST Office Visit [facility] [address] [place] [phone] Charley Crane MD [address], [place] [phone] Health Maintenance Due Date Last Done Comments Alpha-1 Antitrypsin 1974 CKD PHOS USE SMARTSET 72340 1974 DTap/Tdap Vaccines (1 - Tdap) 1975 [...] 04/28/2024, , 09/09/2023 CKD HGB USE SMARTSET 65789 06/15/202506/15, 06/15/2024, 05/27/2024, Additional history exists Diabetic [...] as of this encounter Care Teams Nurse Emergency Room Relationship Specialty Start Date End Date Charley Crane MD [address] [place] [address] PCP - General Internal Medicine 06/04/23 documented as of this encounter
--- OUTSIDE RECORDS SUMMARY | 2024-09-13 13:40 | External Medical Summary | Summary of Care ---
Author Name Unknown Organization [facility] Address [address] [place] [address] Phone [phone] Care Team Providers Care Voting Machine Repairer Name Role Phone Charley Crane MD Primary Care Provider [phone] Reason for Visit * Reason Onset Date Comments Medication Refill 08/07/2024 Encounter Details Date Type Department Care Team (Late st Contact Info) Description 08/07/2024 Refill Located Within [facility] [address] [place] [phone] Charley Crane MD [address] [place] [address] Allergies Active Allergy Reactions Criticality Noted Date Comments Cephalexin Other (Please comment) 08/03/2024 Taking it effect his warfarin documented as of this encounter (statuses as of 08/10/2024) Medications Medication Sig Dispensed Refills Start Date [...] as of this encounter (statuses as of 08/10/2024) Active Problems Problem Noted Date Diagnosed Date [...] goal LDL below 70 07/17/2023 Atherosclerosis of [place] co ronary artery without angina pectoris 07/05/2023 [...] as of this encounter (statuses as of 08/10/2024) Resolved Problems Problem Noted Date Diagnosed Date [...] Classes - JULIA Class D - Inhaled Pqvizolhiizdfp-BITH-HBPD Combination Inhaler (Sandro) Remote Patient Monitoring Vendor: Current Health Device(s): Continuous Monitoring Device Traditional Scale Self-Management plan High frequency nebulizer treatments every 4-6 hours around the clock Exacerbation plan Chest Xray Additional Comments: On continuous o2 2-3lpm Bipap at night Body mass index (BMI) of 40. 0 to 44.9 in adult 07/08/2023 07/09/2024 Overview: Per Obesity protocol Atherosclerosis of [place] co ronary artery without angina pectoris 07/05/2023 08/29/2023 Dyspnea 07/04/2023 08/13/2023 Occupational exposure in workplace 07/04/2023 02/14/2024 Chronic congestive heart failure 06/08/2023 07/05/2023 COPD, severe 06/08/2023 07/11/2023 Overview: Per COPD GOLD Classification Chronic hypoxemic respiratory failure 06/08/2023 07/04/2023 Chronic respiratory failure with hypoxia, on home oxygen therapy 06/08/2023 08/29/2023 Diabetes mellitus without complication 06/08/2023 08/29/2023 documented as of this encounter (statuses as of 08/10/2024) Immunizations Name Administration Dates Next Due Pneumococcal [...] G Previous Prescriber: N/A Preferred Pharmacy: [id number] [address] Please review and approve if appropriate. Thank you, Brent Mario Educational Technologist [facility] Services ([facility]) 08/07/2024,11:31 AM documented in this encounter Plan of Treatment Upcoming Encounters Date Type Department Care Team (Late st Contact Info) Description 08/14/2024 10:00 AM EDT Home Visit [facility] [address] [address] Michelle Kim, RN [address] [address] 08/17/2024 7:15 AM EDT Laboratory Lab Mobile Phlebotomy [facility] [address] [facility] [address] [facility] Mobile [facility] Draw [address] [place] [address] 08/18/2024 6:00 AM EDT Anticoagulation [facility], Oscar Peace [address] [place] [address] [place] [address] [facility], [address] [place] [address] 09/02/2024 3:00 PM EST Office Visit [facility] [place] [address] [place] [phone] Audrey Lee DO [address] [place] [address] 10/06/2024 2:40 PM EST Office Visit Located Within [facility] [address] [place] [address] Charley Crane MD [address] [place] [address] Health Maintenance Due Date Last Done Comments Alpha-1 Antitrypsin 1974 CKD PHOS USE SMARTSET 27926 1974 DTap/Tdap Vaccines (1 - Tdap) 1975 [...] 04/28/2024, , 09/09/2023 CKD HGB USE SMARTSET 43380 06/15/202506/15, 06/15/2024, 05/27/2024, Additional history exists Diabetic [...] filedocumented as of this encounter Care Teams Voting Machine Repairer Relationship Specialty Start Date End Date Charley Crane MD [address] [place] [address] PCP - General Internal Medicine 06/04/23 documented as of this encounter
--- OUTSIDE RECORDS SUMMARY | 2024-09-13 13:41 | External Medical Summary | Summary of Care ---
Author Name Unknown Organization [facility] Address [address] [place] [address] Phone [phone] Care Team Providers Care Reading Recovery Teacher Name Role Phone Charley Crane MD Primary Care Provider [phone] Reason for Visit * Reason Onset Date Comments Order Request 07/14/2024 Encounter Details Date Type Department Care Team (Late st Contact Info) Description 07/14/2024 Telephone [facility] [address] [place] [address] Charley Crane MD [address] [place] [address] Order Request Allergies No known active allergiesdocumented as of this encounter (statuses as of 07/22/2024) Medications Medication Sig Dispensed Refills Start Date [...] rescue kit. 20 Capsule 4 Active Nystatin 339223 UNIT/GM External Cream Apply topically to affected area 2 times a day. Continue until resolved 30 g 2 4 Active Doxycycline Hyclate 100 MG Oral CapsuleIndications :COPD, group D, by GOLD 2017 classification ([facility]) Take 1 Capsule by mouth in the morning and 1 Capsule before bedtime. Rescue kit. Use only as instructed. 20 Capsule 4 Active Compressor Nebulizer Inhale via nebulizer. Use as directed. 1 Each 1 4 Active predniSONE 20 MG Oral Tablet (Deltasone)Indicat ions:COPD, group D, by GOLD 2017 classification ([facility]) Take 2 Tablets by mouth in the morning. Rescue kit. Use only as instructed. 10 Tablet 4 07/20/20 24 Discontinu ed(Refill) documented as of this encounter (statuses as of 07/22/2024) Active Problems Problem Noted Date Diagnosed Date [...] goal LDL below 70 07/17/2023 Atherosclerosis of [place] co ronary artery without angina pectoris 07/05/2023 [...] as of this encounter (statuses as of 07/22/2024) Resolved Problems Problem Noted Date Diagnosed Date [...] Classes - JULIA Class D - Inhaled Rroxpvmpzsbign-JHOU-ZXCU Combination Inhaler (Silvergoran) Remote Patient Monitoring Vendor: Current Health Device(s): Continuous Monitoring Device Traditional Scale Self-Management plan High frequency nebulizer treatments every 4-6 hours around the clock Exacerbation plan Chest Xray Additional Comments: On continuous o2 2-3lpm Bipap at night Body mass index (BMI) of 40. 0 to 44.9 in adult 07/08/2023 07/09/2024 Overview: Per Obesity protocol Atherosclerosis of [place] co ronary artery without angina pectoris 07/05/2023 08/29/2023 Dyspnea 07/04/2023 08/13/2023 Occupational exposure in workplace 07/04/2023 02/14/2024 Chronic congestive heart failure 06/08/2023 07/05/2023 COPD, severe 06/08/2023 07/11/2023 Overview: Per COPD GOLD Classification Chronic hypoxemic respiratory failure 06/08/2023 07/04/2023 Chronic respiratory failure with hypoxia, on home oxygen therapy 06/08/2023 08/29/2023 Diabetes mellitus without complication 06/08/2023 08/29/2023 documented as of this encounter (statuses as of 07/22/2024) Immunizations Name Administration Dates Next Due Pneumococcal [...] encounter Miscellaneous Notes * Telephone Encounter - Dacia Guan OSA - 07/22/2024 9:30 AM EDT Contacted number listed above to get a fax number. * Telephone Encounter - Charley Crane MD - 07/20/2024 9:55 AM EDT Ordered it Please fax DME to [facility] * Telephone Encounter - Jolanta Marie [...] wish to have their order completed at? [facility] Fax Number, if applicable: NA Please contact Maira at [phone] when faxed If the caller is not [...] AM EDT Laboratory Lab Mobile Phlebotomy [facility] [address] [place] [address] Mv[facility], Gml Mobile Home Draw [address] [place] [address] 07/27/2024 2:15 PM EDT Office Visit [facility], [facility] 132 [facility] [place] [address] Gely Gilmore MD [address] [place] [address] 07/28/2024 6:00 AM EDT Anticoagulation [facility], Oscar Peace [address] [place] [address] [place] [address] [facility], [address] [place] [address] 08/03/2024 3:00 PM EDT Office [facility] [place] [address] Cm Dawson, DO 132 [facility] [place] [address] 08/10/2024 12:20 PM EDT Office Visit Family [address] [phone] Charley Crane MD [address] [place] [address] 09/02/2024 3:00 PM EST Office Visit [facility] Disorders Ctr [facility] 132 [facility] [place] [phone] Audrey Lee, 132 [facility] [place] [address] Health Maintenance Due Date Last Done Comments Alpha-1 Antitrypsin 1974 CKD PHOS USE SMARTSET 43111 1974 DTap/Tdap Vaccines (1 - Tdap) 1975 [...] 04/28/2024, , 09/09/2023 CKD HGB USE SMARTSET 91648 06/15/202506/15, 06/15/2024, 05/27/2024, Additional history exists Diabetic [...] machine documented in this encounter Care Teams Reading Recovery Teacher Relationship Specialty Start Date End Date Charley Crane MD [address] [place] [address] PCP - General Internal Medicine 06/04/23 documented as of this encounter
--- OUTSIDE RECORDS SUMMARY | 2024-09-13 13:41 | External Medical Summary | Summary of Care ---
Author Name Unknown Organization [facility] Address [address] [place] [address] Phone [phone] Care Team Providers Care Welder First Class Name Role Phone Charley Crane MD Primary Care Provider [phone] Reason for Visit * Reason Onset Date Comments Medication Question 07/20/2024 Encounter Details Date Type Department Care Team (Late st Contact Info) Description 07/20/2024 Telephone [facility] [address] [place] [address] Charley Crane MD [address] [place] [address] Medication Question Allergies No known active allergiesdocumented as of [...] rescue kit. 20 Capsule 4 Active Nystatin 450753 UNIT/GM External Cream Apply topically to affected area 2 times a day. Continue until resolved 30 g 2 4 Active Doxycycline Hyclate 100 MG Oral CapsuleIndications: COPD, group D, by GOLD 2017 classification ([facility]) Take 1 Capsule by mouth [...] goal LDL below 70 07/17/2023 Atherosclerosis of [place] co ronary artery without angina pectoris 07/05/2023 [...] Classes - JULIA Class D - Inhaled Mdkgutvfkbbhqm-KFIS-CGDE Combination Inhaler (Sandro) Remote Patient Monitoring Vendor: Current Health Device(s): Continuous Monitoring Device Traditional Scale Self-Management plan High frequency nebulizer treatments every 4-6 hours around the clock Exacerbation plan Chest Xray Additional Comments: On continuous o2 2-3lpm Bipap at night Body mass index (BMI) of 40. 0 to 44.9 in adult 07/08/2023 07/09/2024 Overview: Per Obesity protocol Atherosclerosis of [place] co ronary artery without angina pectoris 07/05/2023 [...] encounter Miscellaneous Notes * Telephone Encounter - Teressa Herrera, [facility] - 07/20/2024 4:17 PM EDT Nurse calling for updated warfarin instructions. Assessment & Plan Warfarin Plan As of 07/17/2024 Full warfarin instructions: 07/17: Hold; Otherwise 10 mg every Mon, Wed, Fri; 15 mg all other days Next INR check: 07/27/2024 Provided nurse with most recent MTM visit. Nurse had same instructions for pt on file. Thank you, Teressa Herrera, PharmD Clinical Pharmacist [facility] ([facility]) [phone] 07/20/2024, 4:19 PM * Telephone Encounter - Henny Mathur, pension manager - 07/20/2024 4:15 PM EDT Nandini from [facility]. Requesting to know how patient is taking Warfarin. Warm transfer to [facility] Thank you, Henny Mathur Credit Director I [facility] Services ([facility]) 07/20/2024,4:18 PM documented in this encounter Plan of Treatment Upcoming Encounters Date Type Department Care Team (Late st Contact Info) Description 07/27/2024 7:10 AM EDT Laboratory Lab Mobile Phlebotomy [facility] [address] [facility] [place] [address] M[facility], Gml Mobile Home Draw [address] [place] [address] 07/27/2024 2:15 PM EDT Office Visit [facility], [facility] 132 [facility] [place] [address] Gely Gilmore MD [address] [place] [address] 07/28/2024 6:00 AM EDT Anticoagulation [facility] Services, Oscar Peace [address] [place] [address] [place] [address] [facility], [address] [place] [address] 08/03/2024 3:00 PM EDT Office Visit Orthopaedics [facility] [address] [place] [place] [address] Cm Dawson, DO [address] [place] [address] 08/10/2024 12:20 PM EDT Office Visit [facility] [address] [place] [phone] Charley Crane MD [address] [place] [address] 09/02/2024 3:00 PM EST Office Visit [facility] [address] [place] [phone] Audrey Lee, DO [address] [place] [address] Health Maintenance Due Date Last Done Comments Alpha-1 Antitrypsin 1974 CKD PHOS USE SMARTSET 48240 1974 DTap/Tdap Vaccines (1 - Tdap) 1975 [...] 04/28/2024, , 09/09/2023 CKD HGB USE SMARTSET 39952 06/15/202506/15, 06/15/2024, 05/27/2024, Additional history exists Diabetic [...] filedocumented as of this encounter Care Teams Welder First Class Relationship Specialty Start Date End Date Charley Crane MD [address] [place] [address] PCP - General Internal Medicine 06/04/23 documented as of this encounter
--- OUTSIDE RECORDS SUMMARY | 2024-09-13 13:41 | External Medical Summary | Summary of Care ---
Author Name Unknown Organization [facility] Address [address] [place] [address] Phone [phone] Care Team Providers Care Lobby Porter Name Role Phone Charley Crane MD Primary Care Provider [phone] Encounter Details Date Type Department Care Team (Late st Contact Info) Description 07/31/2024 2:30 PM EDT [facility] 132 [place] [address] Michelle Kim, RN [address] [place] [address] Allergies No known active allergiesdocumented as of this encounter (statuses as of 07/31/2024) Medications Medication Sig Dispensed Refills Start Date [...] group D, by GOLD 2017 classification ([facility]) Take 2 Tablets by mouth in the morning. Rescue kit. Use only as instructed. 10 Tablet 4 Active Diclofenac Sodium 1 % External Gel (Voltaren) Apply 1 Application topically to affected area in the morning and 1 Application before bedtime. Apply to knees and shoulders. Active guaiFENesin ER 1200 MG Oral Tablet Extended Release 12 Hour Take 1,200 mg by mouth in the morning and 1,200 mg before bedtime. Active Theophylline ER 100 MG Oral Tablet Extended Release 12 Hour (Theodur) Take 1 Tablet by mouth in the morning and 1 Tablet before bedtime. Active Ketoconazole 2 % External CreamIndications:S eborrheic dermatitis Apply to dry patches on face once daily 30 g 1 3 07/31/20 24 Discontinu ed(Medicat ion List Clean Up) guaiFENesin ER 600 MG Oral Tablet Extended Release 12 Hour (Mucinex) Take 1 Tablet by mouth 2 times a day. 07/31/20 24 Discontinu ed(Medicat ion/Dose Changed) Potassium Chloride ER [...] Discontinu ed(Medicat ion List Clean Up) Nystatin 395296 UNIT/GM External Cream Apply topically to affected area 2 times a day. Continue until resolved 30 g 2 4 07/31/20 24 Discontinu ed(Medicat ion List Clean Up) Doxycycline Hyclate 100 MG Oral CapsuleIndications :COPD, group D, by GOLD 2017 classification ([facility]) Take 1 Capsule by mouth in the morning and 1 Capsule before bedtime. Rescue kit. Use only as instructed. 20 Capsule 4 07/31/20 24 Discontinu ed(Medicat ion List Clean Up) Enalapril Maleate 2.5 MG Oral Tablet (Vasotec) Take 1 Tablet by mouth in the morning. 07/31/20 24 Discontinu ed(Refill) documented as of this encounter (statuses as of 07/31/2024) Active Problems Problem Noted Date Diagnosed Date [...] classification 11/04 Overview: Per COPD GOLD Classification termination clerk current use of anticoagulant therapy 0 [...] (ex. Jardiance) Remote Patient Monitoring Vendor: [facility] Device(s): Connected Scale Continuous [...] as of this encounter (statuses as of 07/31/2024) Resolved Problems Problem Noted Date Diagnosed Date [...] Classes - JULIA Class D - Inhaled Kexmawfkjwjpvv-UCBA-YTYA Combination Inhaler (Trellegy) Remote Patient Monitoring Vendor: [...] as of this encounter (statuses as of 07/31/2024) Immunizations Name Administration Dates Next Due Pneumococcal [...] as of this encounter Progress Notes * Michelle Kim RN - 07/31/2024 11:38 AM EDT Current Concerns: Pt seen for JOHN #1 Admitted to [facility] 07/20/24 - 07/29/24 for BLE cellulitis, decompensated heart failure Started on Enalapril 2.5mg, mucinex, theophylline, torsemide 40mg twice a day Stopped enalapril 10mg daily , potassium chloride, torsemide 40mg daily Reviewed meds with dtr in law - she thought enalapril was stopped completely so threw both bottles away Spoke with [facility] pharmacy - they can send for override but need new script - TE sent to PCP Getting home health services through [facility] for SN, PT, OT Wound care of left upper buttock is to clean with saline and cover with optifoam every 3 days and as needed Wound care to b/l buttocks and thighs is after cleansing, cover with barrier cream and apply several times a day to protect the area Pt to follow 63 oz per day fluid restriction and follow Low Na diet Reviewed HF symptom monitoring: -Weigh self daily [...] if at night -increased fatigue or vertigo Pt scale was not working right today He is going to have family get a new battery for it He reports his wt yesterday was 296 lbs and it was 298 lbs when he got out of the hospital Physical Exam: Physical Exam Constitutional: General: He is not in acute distress. Appearance: He is obese. Cardiovascular: Rate and Rhythm: Normal rate and regular rhythm. Pulses: Normal pulses. Heart sounds: Normal heart sounds. Pulmonary: Effort: Pulmonary effort is normal. Breath sounds: Rales (RLL) present. Abdominal: General: Bowel sounds are normal. Palpations: Abdomen is soft. Musculoskeletal: Right lower leg: Edema (+1) present. Left lower leg: Edema (+1) present. Skin: General: Skin is warm and dry. Neurological: Mental Status: He is alert and oriented to person, place, and time. Review of Systems: Review of Systems Constitutional: Positive for fatigue. HENT: Negative. Eyes: Negative. Respiratory: Positive for shortness of breath (BERRY - at baseline). Cardiovascular: Positive for leg swelling. Gastrointestinal: Negative. Genitourinary: Negative. Musculoskeletal: Positive for arthralgias and gait problem. Neurological: Positive for weakness (general). Hematological: Negative. Psychiatric/Behavioral: Negative. Care Plan Goal Progress: GS - Patient/caregiver will verbalize an understanding of diagnosis, treatment and self management of chronic obstructive pulmonary disease (COPD) (Progressing) Start: 07/09/24 Expected End: 01/25/25 GS - Patient/caregiver will verbalize signs/symptoms of a COPD exacerbation. (Progressing) Start: 07/09/24 Expected End: 01/25/25 Orders Placed: No orders of the defined types were placed in this encounter. Medications Given: Care Gaps: Care Gaps Care gaps closed this contact:: Education;Medications;Plan of Care (POC) (07/31/24 1221) Type of education: Clinical/disease (07/31/24 1221) Type of medication care gap: Medication adherence (07/31/24 1221) Type of plan of care (POC) care gap: Creation of plan of care (POC) and/or Integrated Care Plan (ICP);Adjustment of plan of care (POC) and/or Integrated Care Plan (ICP);Education and review of exacerbation plan (07/31/24 1221) documented in this encounter Plan of Treatment Upcoming Encounters Date Type Department Care Team (Late st Contact Info) Description 08/03/2024 7:05 AM EDT Laboratory Lab Mobile Phlebotomy [facility] [address] [place] [address] [facility], [facility] Mobile Home Draw [address] [facility] [place] [address] 08/03/2024 2:00 PM EDT [facility] [place] [address] [facility] [phone] Charley Crane MD [address] [facility] [address] 08/03/2024 6:00 PM EDT Anticoagulation [facility] Clinical [facility] Services, Oscar Peace [address] [place] [address] [place] [address] [facility] [place] [address] 08/10/2024 12:20 PM EDT [facility] Visit [facility] [address] [facility] [phone] Charley Crane MD [address] [facility] [address] 08/14/2024 10:00 AM EDT [facility] Visit [facility] [address] [place] [address] Michelle Kim, RN [address] [place] [address] 09/02/2024 3:00 PM EST [facility] [address] [phone] Audrey Lee DO [address] [place] [address] Health Maintenance Due Date Last Done Comments Alpha-1 Antitrypsin 1974 CKD PHOS USE SMARTSET 35235 1974 DTap/Tdap Vaccines (1 - Tdap) 1975 [...] 04/28/2024, , 09/09/2023 CKD HGB USE SMARTSET 29917 06/15/202506/15, 06/15/2024, 05/27/2024, Additional history exists Diabetic Foot Exam 06/15/2025 06/15/2024, 06/21/2023 O2 ASSESSMENT COMPLETED IN PAST YEAR FOR COPD 07/31/2025 07/31/2024 Pneumococcal Vaccine: 65+ Years Completed 07/05/2023 Zoster [...] filedocumented as of this encounter Care Teams Lobby Porter Relationship Specialty Start Date End Date Charley Crane MD [address] [place] [address] PCP - General Internal Medicine 06/04/23 documented as of this encounter
--- OUTSIDE RECORDS SUMMARY | 2024-09-13 13:41 | External Medical Summary | Summary of Care ---
Author Name Unknown Organization [facility] Address [address] [place] [address] Phone [phone] Care Team Providers Care Commercial Real Estate Agent Name Role Phone Charley Crane MD Primary Care Provider [phone] Reason for Visit * Reason Comments Hospital Follow-Up Pt here today for ho spital discharge follow upPt has question about his oxygen and there are test that [facility] wants him to do Encounter Details Date Type Department Care Team (Latest Contact Info) Description 08/03/2024 2:00 PM EDT Office Visit [facility] [address] [place] [address] Charley Crane MD [address] [place] [address] Risk and functional assessment*; BiPAP (biphasic positive airway pressure) dependence; O2 dependent; Longstanding persistent atrial fibrillation (HCC); PHT (pulmonary hypertension) (HCC); Obesity hypoventilation syndrome (HCC); Chronic respiratory failure with hypoxia and hypercapnia (HCC); COPD, group D, by GOLD 2017 classification (HCC); Chronic heart failure with preserved ejection fraction (HCC) Allergies Active Allergy Reactions Criticality Noted Date Comments Cephalexin Other (Please comment) 08/03/2024 Taking it effect his warfarin documented as of this encounter (statuses as of 08/03/2024) Medications Medication Sig Dispensed Refills Start Date [...] the morning. 30 Tablet 11 4 Active documented as of this encounter (statuses as of 08/03/2024) Active Problems Problem Noted Date Diagnosed Date [...] stairs") Medication Regimen: Beta Laureano Therapy: Carvedilol ANGLE Inhibitor/ARB Therapy: Enalapril Diuretic therapy: Torsemide Aldactone SGLT2 Inhibitor: empagliflozin (ex. Jardiance) Remote Patient Monitoring Vendor: [facility] Device(s): Connected Scale Continuous Monitoring Device Self [...] Regimen SGLT (ex: Jardiance) DM Secondary Prevention AGNEL Inhibitor / ARB Additional Comments Hemoglobin AIC [...] as of this encounter (statuses as of 08/03/2024) Resolved Problems Problem Noted Date Diagnosed Date [...] Classes - JULIA Class D - Inhaled Osjugqxcjadkrk-DOMU-ZIYR Combination Inhaler (Silverllgorany) Remote Patient Monitoring Vendor: [facility] Device(s): [...] as of this encounter (statuses as of 08/03/2024) Immunizations Name Administration Dates Next Due Pneumococcal [...] Sign Reading Time Taken Comments Blood Pressure 122/60 08/03/2024 1:53 PM EDT Pulse 66 08/03/2024 1:53 PM EDT Temperature 37.3 C (99.1 F) 08/03/2024 1:53 PM ED T Respiratory Rate 18 08/03/2024 1:53 PM EDT Oxygen Saturation 95% 08/03/2024 1:53 PM EDT Inhaled Oxygen Concentration - - Weight 135.2 kg (298 lb) 08/03/2024 1:53 PM EDT Height - - Body Mass Index 46.67 09/09/2023 12:03 PM EST documented in this encounter Patient Instructions * Patient Instructions* Ashely Garduno LPN - 08/03/2024 1:57 PM EDT Patient Instructions - Fall Prevention (This education is for all patients over 65 regardless of symptoms) Remember to take your current medications as prescribed. In order to prevent falls, you are encouraged to: Exercise Utilize assistive/adaptive devices Avoid multifocal lenses when walking Avoid hazards in home Maintain a regular toileting schedule Any questions please contact our office. Preventing Falls in the Home (This education is for all patients over 65 regardless of symptoms) As you get older, falls are more likely. Thats because your reaction time slows. Your muscles and joints may also get stiffer, making them less flexible. Illness, medications, and vision changes can also affect your balance. A fall could leave you unable to live on your own. To make your home safer, follow these tips: Floors Put nonskid pads under area rugs Remove throw rugs Replace worn floor coverings Tack carpets firmly to each step on carpeted stairs. Put nonskid strips on the edges of uncarpeted stairs Keep floors and stairs free of clutter and cords Arrange furniture so there are clear pathways Clean up any spills right away Bathrooms Install grab bars in the tub or shower Apply nonskid strips or put a nonskid rubber mat in the tub or shower Sit on a bath chair to bathe Use bathmats with nonskid backing Lighting Keep a flashlight in each room Put a nightlight along the pathway between the bedroom and the bathroom [employer] Patient Education Copyright 2008 - 2010 [employer] except where otherwise noted Preventing Falls: Exercises to Improve Balance, Flexibility, Strength, and Staying Power (This education is for all patients over 65 regardless of symptoms) Certain types of exercises may help make you less likely to fall. Try the ones below. Or do other exercises that your healthcare provider suggests. Depending on your health, you may need to start slowly. Dont let that stop you. Even small amounts of exercise can help you. Be sure to talk to yourhealthcare provider before starting any exercise program. Improve Balance Many types of exercise can help improve balance. Juvencio chi and yoga are good examples. Heres another one to try. You can do it anytime and almost anywhere. Stand next to a counter or solid support. Push yourself up onto your tiptoes. Hold for 5 seconds. If you start to lose your balance, hold on to the counter. Rest and repeat 5 times. Work up to holding for 20 to 30 seconds, if you can. Increase Flexibility Being more flexible makes it easier for you to move around safely. Try exercises like the seated hamstring stretch. Sit in a chair and put one foot on a stool. Straighten your leg and reach with both hands down either side of your leg. Reach as far down your leg as you can. Hold for about 20 seconds. Go back to the starting position. Then repeat 5 times. Switch legs. Build Strength Resistance exercises help build strength. You can do them without equipment. Or you can use weights, elastic bands, or special machines. One such exercise is called the biceps curl. You can hold a 1 pound weight or even a can of soup. Do this exercise at least 3 times a week. Strive for everyday. Sit up straight in a chair. Keep your elbow close to your body and your wrist straight. Bend your arm, moving your hand up to your shoulder. Then slowly lower your arm. Repeat 5 times. Switch to the other arm. Build Your Staying Power Aerobic exercises make your heart and lungs stronger so you can keep moving longer. Walking and swimming are two of the best types of exercises you can do. Using a stationary bike is great, too. Find an aerobic exercise that you enjoy. Start slowly and build up. Even 5 minutes is helpful. Aimfor a goal of 30 minutes, at least 3 times a week. You dont have to do 30 minutes in one session. Break it up and walk a little throughout the day. More Helpful Tips Start easy. Slowly work up to doing more. Talk with your healthcare provider about the best exercises for you. Call senior centers or health clubs about exercise programs. If needed, have a family member watch you walk every so often to check your stability. Exercise with a friend. Choose an activity you both enjoy. Try exercises that you can do anytime, anywhere. Here are two examples. Have someone with you when you first try these: Practice walking by placing one foot right in front of the other. Stand up and sit down 10 times. Repeat this throughout the day. FirstBest Patient Education Copyright 2008 FirstBest except where otherwise noted. Preventing Falls: Moving Safely Using a Cane or Walker (This education is for all patients over 65 regardless of symptoms) Keep the cane away from your feet so you dont trip. A walking aid, such as a cane or walker, can help you stay more independent and avoid falls. Remember to keep your walking aid within easy reach when youre in a chair or in bed. And learn how to use it safely so you dont injure yourself. Using a Cane If you have a stronger side, hold the cane on that side. Get your balance. Move the cane and your weaker leg forward. Support your weight on both the cane and your weaker side. Step with your stronger leg. Start again from step 1. If youre using a folding walker, be sure you know how to lock it open. Check that its locked open before each use. Using a Walker Roll the walker (or lift it, if youre using one without wheels) forward about 12 inches. Step forward with your weaker leg first. Use the walker to help keep your balance. Bring your other foot forward to the center of the walker. Start again from step 1. Helpful Tips Check with your healthcare provider about the right walking aid to use. Ask about a walker with a seat attached. Check the tips of your cane or walker to make sure they have nonskid covers. Move slowly from room to room. Dont serrano. Sit down to get dressed. Use a pennie pack or backpack to keep your hands free. Get help for jobs that mean climbing, even on a stepstool. FirstBest Patient Education Copyright 2008 - 2010 FirstBest except where otherwise noted. Treating Urinary Incontinence in Men (This education is for all patients over 65 regardless of symptoms) You can't always control the release of urine. You may leak urine. Or you may not be able to hold your urine until you can get to a bathroom. This is called urinary incontinence. The problem can be managed. Talk to your doctor about your treatment options. Taking Medications Prescription medications may help you. They may: Help the sphincter to work better. (This is the muscle that closes to keep urine from leaking out of the bladder.) Help stop the bladder from tameka too often to push urine out. Help the bladder muscles contract with more force. Help relax the sphincter muscle and allow urine to flow more freely. Making Changes to Your Routine Certain changes in your daily routine may help. These include: Avoiding caffeine and alcohol. Using timed voiding. This is following a schedule for drinking fluids and urinating. Doing Kegel exercises daily. These exercises involve tightening the muscles in your sphincter and around your bladder to help strengthen them. Your doctor can explain how to do them. Using a Catheter A catheter is a narrow tube that is inserted through the urethra into the bladder. It drains urine.A condom catheter covers the penis. It channels urine into a collection bag. It is worn most of thetime. Intermittent catheterization means inserting a catheter to drain the bladder, then removing it. This is done on a regular schedule. Having Surgery If other options don't work, surgery may be recommended. If surgery is an option, your healthcare provider can discuss it with you and explain its risks and benefits. Healing After Prostate Surgery Surgery on the prostate gland can cause incontinence. Most often, the incontinence is only for a short time. It clears up when healing is complete. Very rarely, prostate surgery can result in permanent incontinence. documented in this encounter Progress Notes * Charley Crane MD - 08/03/2024 2:03 PM EDT Subjective Bala Coronado Jr. is a 69 year old male. Chief Complaint Patient presents with Hospital Follow-Up Pt here today for hospital discharge follow up Pt has question about his oxygen and there are test that [facility] wants him to do HPI: Here for hospital discharge f/u Admission Jul 20 Discharge Oct 3 Dx : acute on chronic respiratory failure , hypoventilation synd and acute CHF exacerbation Chronic resp failure with worse CHF, weight gain Diuresed , lost weight , breathing is better O2 dependent Needs big Oxygen concentrator, portable oxygen tank at 2.5 L Try to keep O2 sat level around 92-96 % [facility] needs information on below O2 level Today at office Room air resting 89 % ( with O2 2.5 L, 95 %) Room air exercise : after a few steps, O2 down to 72 % - significant hypoxia + Difficult to check nocturnal O2 since he uses BiPAP Known afib, CHF, diastolic, COPD, pul HTN Denies CP, palpitation , Chronic leg swelling, up and down , taking all his meds PMH: Patient Active Problem List Diagnosis History of deep venous thrombosis (DVT) of distal vein of left lower extremity Type 2 diabetes mellitus with hemoglobin A1c goal of less than 7.0% ([facility]) Squamous cell carcinoma, face Venous insufficiency O2 dependent History of open leg wound On Coumadin for atrial fibrillation ([facility]) Type 2 diabetes mellitus with diabetic dermatitis ([facility]) PHT (pulmonary hypertension) ([facility]) Tobacco abuse, in remission Chronic respiratory failure with hypoxia and hypercapnia ([facility]) Obesity hypoventilation syndrome ([facility]) Family history of lung cancer Chronic heart failure with preserved ejection fraction ([facility]) Atherosclerosis of [place] coronary artery without angina pectoris BiPAP (biphasic positive airway pressure) dependence Longstanding persistent atrial fibrillation ([facility]) Hypertension goal BP (blood pressure) < 130/80 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 Uses 2.5 LPM at night with BIPAP and as needed during the day BiPAP every night at bedtime. Empagliflozin 10 MG Oral Tablet (Jardiance) Take 1 Tablet by mouth in the morning. 90 Tablet 3 Spironolactone 25 MG Oral Tablet (Aldactone) Take 1 Tablet by mouth in the morning. (Patient takingdifferently: Take 0.5 Tablets by mouth in the morning.) 90 Tablet 3 Torsemide 20 MG Oral Tablet (Demadex) Take 2 tablets by mouth once daily (Patient taking differently: Take 2 Tablets by mouth in the morning and 2 Tablets before bedtime.) 180 Tablet 3 Warfarin Sodium 10 MG Oral Tablet (Coumadin) Take 1 to 1.5 tablets by mouth every day in the evening or as directed by the anticoagulation clinic. 100 Tablet 3 Fluticasone Propionate 50 MCG/ACT Nasal Suspension (Flonase) [...] FOR SHORTNESS OF BREATH) 360 mL 3 Pantoprazole Sodium 40 MG Oral Tablet Delayed Release (Protonix) TAKE 1 TABLET BY MOUTH EVERY MORNING 90 Tablet 1 Trelegy Ellipta 100-62.5-25 MCG/ACT Aerosol Powder Breath Activated (Askmdveotsy-Mlmrultehpqt-Zlmeviuthz) Inhale 1 Puff by mouth in the morning. 180 Blister Dosing Unit 3 Montelukast Sodium 10 MG Oral Tablet (Singulair) Take 1 Tablet by mouth in the morning. 90 Tablet 3 Compressor Nebulizer Inhale via nebulizer. Use as directed. 1 Each 1 predniSONE 20 MG Oral Tablet (Deltasone) Take 2 Tablets by mouth in the morning. Rescue kit. Use only as instructed. 10 Tablet 0 Diclofenac Sodium 1 % External Gel (Voltaren) Apply 1 Application topically to affected area in themorning and 1 Application before bedtime. Apply to knees and shoulders. guaiFENesin ER 1200 MG Oral Tablet Extended Release 12 Hour Take 1,200 mg by mouth in the morning and 1,200 mg before bedtime. Theophylline ER 100 MG Oral Tablet Extended Release 12 Hour (Theodur) Take 1 Tablet by mouth in themorning and 1 Tablet before bedtime. Enalapril Maleate 2.5 MG Oral Tablet (Vasotec) Take 1 Tablet by mouth in the morning. 30 Tablet 11 Centrum Silver 50+Men Oral Tablet Take 1 Tablet by mouth daily. (Patient not taking: Reported on 08/03/2024) Albuterol Sulfate HFA 108 (90 Base) MCG/ACT Inhalation Aerosol Solution Inhale 2 Puffs by mouth every 6 hours as needed for Shortness of Breath or Wheezing. 54 g 1 No current facility-administered medications for this visit. Past Medical History: Diagnosis Date Chronic congestive heart failure ([facility]) 06/08/2023 Heart failure preserved ejection fraction Chronic respiratory failure with hypoxia, on home oxygen therapy ([facility]) 06/08/2023 COPD (chronic obstructive pulmonary disease) ([facility]) COPD, severe ([facility]) 06/08/2023 Family history of lung cancer 07/04/2023 Mother's side of the family. Patient reports that some affected individuals were nonsmokers History of deep venous thrombosis (DVT) of distal vein of left lower extremity 06/08/2023 On Coumadin for atrial fibrillation ([facility]) 06/08/2023 Pulmonary hypertension ([facility]) Suspected per report of outside echocardiogram May 2023 Squamous cell carcinoma, face 06/08/2023 Type 2 diabetes mellitus with hemoglobin A1c goal of less than 7.0% ([facility]) 06/08/2023 Venous insufficiency 06/08/2023 Past Surgical History: Procedure Laterality Date DERM IMAGE (SITE) "Cancer removed from my head" INFORMATION "Muscle re-attached in my left arm" INFORMATION LLE vascular surgery INFORMATION "Pins in my hand" Review of patient's allergies indicates: Allergen Reactions Ed A-Ceph [Cephalexin] Other (Please comment) Taking it effect his warfarin Family History Problem Relation Name Age of [...] Occupational History 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 (Adult - for ages 18 years and over): No Does your family have trouble paying for medicine? (Household - for ages 0-17 years): Not on file Food Insecurity: No Food Insecurity (07/17/2024) Food Insecurity Do you need food for [...] on file Transportation Needs: No Transportation Needs (07/17/2024) Transportation Needs Do you have trouble getting [...] 18 years and over): No Do you (or your family) have trouble finding or paying for a ride (transportation)? (Household - for ages 0-17 years): Not on file Social Connections: Socially Integrated (07/17/2024) Social Connections How often do you feel lonely or isolated from those around you? (Adult - for ages 18 years and over): Sometimes Housing Stability: Low Risk (07/17/2024) Housing Stability Do you currently live in a long term or have no steady place to sleep [...] 18 years and over): No Are you (or your family) homeless or worried that you might be in the future? (Household - for ages0-17 years): Not on file Review of Systems Constitutional: Positive for fatigue. Negative for activity change, appetite change, chills, diaphoresis, fever and unexpected weight change. Respiratory: Positive for chest tightness and shortness of breath (on exertion). Negative for coughand wheezing. Cardiovascular: Positive for leg swelling. Negative for chest pain and palpitations. Gastrointestinal: Negative for abdominal distention, abdominal pain, nausea and vomiting. Musculoskeletal: Positive for arthralgias, back pain and gait problem. Neurological: Positive for weakness and numbness. Negative for dizziness, light- headedness and headaches. Psychiatric/Behavioral: Positive for sleep disturbance. Negative for agitation and behavioral problems. The patient is nervous/anxious. Objective BP 122/60 | Pulse 66 | Temp 37.3 C (99.1 F) (Tympanic) | Resp 18 | Wt 135.2 kg (298 lb) | SpO2 95% | BMI 46.67 kg/m | BSA 2.53 m Physical Exam Constitutional: General: He is not in acute distress. Appearance: Normal appearance. He is obese. He is not ill-appearing, toxic- appearing or diaphoretic. HENT: Head: Normocephalic and atraumatic. Nose: Nose normal. Eyes: Extraocular Movements: Extraocular movements intact. Cardiovascular: Rate and Rhythm: Normal rate. Rhythm irregular. Pulses: Normal pulses. Heart sounds: Murmur heard. Pulmonary: Effort: Pulmonary effort is normal. No respiratory distress. Breath sounds: No stridor. No wheezing, rhonchi or rales. Comments: O2 2.5 L/min Chest: Chest wall: No tenderness. Musculoskeletal: General: Tenderness present. Right lower leg: Edema present. Left lower leg: Edema present. Neurological: General: No focal deficit present. Mental Status: He is alert and oriented to person, place, and time. Psychiatric: Mood and Affect: Mood normal. Behavior: Behavior normal. ASSESSMENT/PLAN: Risk and functional assessment (Primary) BiPAP (biphasic positive airway pressure) dependence O2 dependent Longstanding persistent atrial fibrillation (HCC) PHT (pulmonary hypertension) (HCC) Obesity hypoventilation syndrome (HCC) Chronic respiratory failure with hypoxia and hypercapnia (HCC) COPD, group D, by GOLD 2017 classification (HCC) Chronic heart failure with preserved ejection fraction (HCC) Follow Up: Return in about 2 months (around 10/03/2024) for Clinic Visit. | For: Clinic Visit | Check-out note: Cancel Oct appointment and reschedule in 2 mo Needs O2 tank, concentrator order [facility]ax [facility] Cont meds Diet Charley Crane MD documented in this encounter Nursing Notes * Ashely Garduno LPN - 08/03/2024 1:43 PM EDT Chief Complaint Patient presents with Hospital Follow-Up Pt here today for hospital discharge follow up Pt has question about his oxygen and there are test that [facility] wants him to do documented in this encounter Plan of Treatment Upcoming Encounters Date Type Department Care Team (Late st Contact Info) Description 08/03/2024 6:00 PM EDT Anticoagulation [facility], [facility] Peace [address] [place] [address] [place] [address] [place] [id number] prison current use of anticoagulant therapy*; Longstanding persistent atrial fibrillation (HCC); History of deep venous thrombosis (DVT) of distal vein of left lower extremity 08/14/2024 10:00 AM EDT Home Visit [facility] [address] [place] [id number] Michelle Kim, RN [address] [place] [address] 08/17/2024 7:15 AM EDT Laboratory Lab Mobile Phlebotomy [facility] [address] [facility] [place] [address] [facility], [facility] Mobile Home Draw [email or web address] [place] [address] 08/18/2024 6:00 AM EDT Anticoagulation [facility], Oscar Peace [address] [place] [address] [place] [address] [place], [facility] [address] [place] [address] 09/02/2024 3:00 PM EST Office Visit [facility] [address] [place] [id number] Audrey Lee DO [address] [place] [address] 10/06/2024 2:40 PM EST Office Visit [facility] [address] [place] [id number] Charley Crane MD [address] [place] [address] Health Maintenance Due Date Last Done Comments Alpha-1 Antitrypsin 1974 CKD PHOS USE SMARTSET 79613 1974 DTap/Tdap Vaccines (1 - Tdap) 1975 [...] 04/28/2024, , 09/09/2023 CKD HGB USE SMARTSET 46060 06/15/202506/15, 06/15/2024, 05/27/2024, Additional history exists Diabetic [...] as of this encounter Visit Diagnoses Diagnosis Risk and functional assessment- Primary Screening for unspecified condition BiPAP (biphasic positive airway pressure) dependence Dependence on other enabling machine O2 dependent Dependence on supplemental oxygen Longstanding persistent atrial fibrillation (HCC) PHT (pulmonary hypertension) (HCC) Other chronic pulmonary heart diseases Obesity hypoventilation syndrome (HCC) Obesity hypoventilation syndrome Chronic respiratory failure with hypoxia and hypercapnia (HCC) COPD, group D, by GOLD 2017 classification (HCC) Chronic heart failure with preserved ejection fraction (HCC) prison current use of anticoagulant therapy- Primary Longstanding persistent atrial fibrillation (HCC) History of deep venous thrombosis (DVT) of distal vein of left lower extremity documented in this encounter Care Teams Commercial Real Estate Agent Relationship Specialty Start Date End Date Charley Crane MD [address] [facility] [address] PCP - General Internal Medicine 06/04/23 documented as of this encounter
--- OUTSIDE RECORDS SUMMARY | 2024-09-13 13:41 | External Medical Summary | Summary of Care ---
Author Name Unknown Organization [facility] Address [address] [place] [address] Phone [phone] Care Team Providers Care Delta System Freight Car Cleaner Name Role Phone Charley Crane MD Primary Care Provider [phone] Encounter Details Date Type Department Care Team (Late st Contact Info) Description 05/29/2024 Result Scan Unspecified Department <No scans attached> Allergies No known active allergiesdocumented as of [...] goal LDL below 70 07/17/2023 Atherosclerosis of [place] ronary artery without angina pectoris 07/05/2023 [...] Classes - JULIA Class D - Inhaled Tejuxmctdyuttq-KARK-GHFA Combination Inhaler (Trellegy) Remote Patient Monitoring Vendor: Current Health Device(s): Continuous Monitoring Device Traditional Scale Self-Management plan High frequency nebulizer treatments every 4-6 hours around the clock Exacerbation plan Chest Xray Additional Comments: On continuous o2 2-3lpm Bipap at night Body mass index (BMI) of 40. 0 to 44.9 in adult 07/08/2023 07/09/2024 Overview: Per Obesity protocol Atherosclerosis of [place]ary artery without angina pectoris 07/05/2023 [...] Description 07/31/2024 2:30 PM EDT Home Visit [facility] at [facility] [address] [place] [address] Michelle Kim RN [address] [place] [address] 08/03/2024 7:05 AM EDT Laboratory Lab Mobile Phlebotomy [facility] [address] [facility] [place] [address] [facility], Gml Mobile Home Draw [address] [facility] [place] [address] 08/03/2024 2:00 PM EDT Office Visit [facility] [address] [place] [facility] [place] [phone] Charley Crane MD [address] [facility] [address] 08/03/2024 6:00 PM EDT Anticoagulation Centralized Clinical Pharmacy Services, Oscar Peace [address] [place] [address] [place] [address] [facility] [place] [address] 08/10/2024 12:20 PM EDT Office Visit [facility] [address] [place] [facility] [place] [phone] Charley Crane MD [address] [place] [address] 08/14/2024 10:00 AM EDT [facility] [address] [place] [address] Michelle Kim, RN [address] [place] [address] 09/02/2024 3:00 PM EST Office Visit [facility] [address] [place] [phone] Audrey Lee, [address] [place] [address] Health Maintenance Due Date Last Done Comments Alpha-1 Antitrypsin 1974 CKD PHOS USE SMARTSET 29998 1974 DTap/Tdap Vaccines (1 - Tdap) 1975 [...] 04/28/2024, , 09/09/2023 CKD HGB USE SMARTSET 45813 06/15/202506/15, 06/15/2024, 05/27/2024, Additional history exists Diabetic [...] Name Priority Date/Time Associated Diagnosis Comments OUTSIDE LAB RESULTS 05/29/2024 documented in this encounter Results * OUTSIDE LAB RESULTS (05/29/2024) 05/29/2024 No Physician Data Unknown LABORATORY documented in this encounter Care Teams Delta System Freight Car Cleaner Relationship Specialty Start Date End Date Charley Crane MD [address] [place] [address] PCP - General Internal Medicine 06/04/23 documented as of this encounter
--- OUTSIDE RECORDS SUMMARY | 2024-09-13 13:41 | External Medical Summary | Summary of Care ---
Author Name Unknown Organization [facility] Address [address] [facility] [address] Phone [phone] Care Team Providers Care Archeology Professor Name Role Phone Charley Crane MD Primary Care Provider [phone] Reason for Visit * Reason Comments Dosage Adjustment Via Phone (anticoag Cl inic) Encounter Details Date Type Department Care Team (Late st Contact Info) Description 08/03/2024 6:00 PM EDT Anticoagulation Centralized Clinical Pharmacy Services, Oscar Peace [address] [place] [address] [place] [address] [place] [address] terminal operations manager current use of anticoagulant therapy*; Longstanding persistent [...] 11/04 Overview: Per COPD GOLD Classification terminal operations manager current use of anticoagulant therapy 0 2023 Longstanding persistent atrial fibrillation 06/29 Last Assessment & Plan: Rate controlled Continue coumadin Hypertension goal BP (blood pressure) < 130/80 0 07/17/2023 Dyslipidemia, goal LDL below 70 07/17/2023 Atherosclerosis of [place] co 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 Jardiance) Remote Patient Monitoring Vendor: [facility] Device(s): Connected Scale Continuous Monitoring Device Self [...] Classes - JULIA Class D - Inhaled Ctwrsykolsmdwo-NTZQ-HLTO Combination Inhaler (Sandro) Remote Patient Monitoring Vendor: Current Health Device(s): Continuous Monitoring Device Traditional Scale Self-Management plan High frequency nebulizer treatments every 4-6 hours around the clock Exacerbation plan Chest Xray Additional Comments: On continuous o2 2-3lpm Bipap at night Body mass index (BMI) of 40. 0 to 44.9 in adult 07/08/2023 07/09/2024 Overview: Per Obesity protocol Atherosclerosis of [place] co ronary artery without angina pectoris 07/05/2023 [...] as of this encounter Progress Notes * TravelpieceJayant, [facility] - 08/03/2024 11:09 AM EDT Contacts Contact Date/Time Type Contact Phone/Fax 08/03/2024 11:07 AM EDT Phone (Outgoing) Bala Coronado Jr. (Self) [phone] (M) Spoke to Patient Subjective Patient Findings [...] date communicated as noted by Pharmacist: Yes JAYANT TUCKER CPhT 08/03/2024, 11:09 AM * Isabel Li RPh - 08/03/2024 11:05 AM EDT Coumadin Clinic (region specific) Objective Current Warfarin Dose As of 08/03/2024 Warfarin maintenance plan: 10 mg (10 mg x 1) every Mon, Wed, Fri; 15 mg (10 mg x 1.5) all other days INR Result As of 08/03/2024 INR goal: 2.0-3.0 INR used for dosin.1 (08/03/2024) Assessment & Plan Warfarin Plan As of 08/03/2024 Full warfarin instructions: 10 mg every Mon, Wed, Fri; 15 mg all other days No change documented: Isabel Li RPh Next INR check: 08/17/2024 Repeat PT/INR in 2 week(s) Weekly dose: not changed Additional Dosing Information: Description [facility] Pill packs from [facility] - Warfarin NOT included Tech to contact patient with dose instructions as noted. Isabel Li RPh 08/03/2024, 11:05 AM documented in this encounter Plan of Treatment Upcoming Encounters Date Type Department Care Team (Late st Contact Info) Description 08/03/2024 2:00 PM EDT [facility] [address] [facility] [phone] Charley Crane MD [address] [facility] [address] 08/10/2024 12:20 PM EDT Office Visit [facility] [address] [place] [facility] [place] [phone] Charley Crane MD [address] [place] [facility] [place] [address] 08/14/2024 10:00 AM EDT [facility] [address] [facility] [place] [address] Michelle Kim, RN [address] [facility] [place] [address] 08/18/2024 6:00 AM EDT [facility] Centralized Clinical Pharmacy Services, [address] [place] [address] [facility], [address] [place] [address] 09/02/2024 3:00 PM EST Office Visit [facility] [address] [facility] [place] [phone] Audrey Lee, [address] [facility] [place] [address] Health Maintenance Due Date Last Done Comments Alpha-1 Antitrypsin 1974 CKD PHOS USE SMARTSET 32336 1974 DTap/Tdap Vaccines (1 - Tdap) 1975 [...] 04/28/2024, , 09/09/2023 CKD HGB USE SMARTSET 99129 06/15/202506/15, 06/15/2024, 05/27/2024, Additional history exists Diabetic [...] of this encounter Visit Diagnoses Diagnosis terminal operations manager current use of anticoagulant therapy- Primary Longstanding persistent atrial fibrillation (HCC) History of deep venous thrombosis (DVT) of distal vein of left lower extremity documented in this encounter Care Teams Archeology Professor Relationship Specialty Start Date End Date Charley Crane MD [address] [place] [address] PCP - General Internal Medicine 06/04/23 documented as of this encounter
--- OUTSIDE RECORDS SUMMARY | 2024-09-13 13:41 | External Medical Summary ---
Author Name Unknown Address Unknown Organization [facility] [address] [place] [address] Laboratory Report Ordering Provider Test Date Status NAVARROSANCHORADU 08/03/2024 08:47:00 Final Standing order for pt/inr. < br/>Please draw pt/inr every 1 to 4 weeks as requested
Results to [facility]

Warfarin Therapy
INR: 2.0-3.0 conventional anticoagulation
INR: 2.5-3.5 high intensity anticoagulation Observation Date Value Abnormality Reference (Units ) Status PT 08/03/2024 08:47:00 23.5 Above high normal 11 .6-15.2 (seconds) Final INR 08/03/2024 08:47:00 2.1 Above high normal 0. 8-1.2 Final Performing Location [facility] [address] [place] [address]
--- OUTSIDE RECORDS SUMMARY | 2024-09-13 13:41 | External Medical Summary | Summary of Care ---
Author Name Unknown Organization [facility] Address [address] [place] [address] Phone [phone] Care Team Providers Care Retinal Surgeon Name Role Phone Charley Crane MD Primary Care Provider [phone] Reason for Visit * Reason Onset Date Comments Order Request 07/14/2024 Advice 07/14/2024 Encounter Details Date Type Department Care Team (Late st Contact Info) Description 07/14/2024 Telephone [facility] [address] [place] [address] Charley Crane MD [address] [place] [address] Order Request; Advice Allergies No known active allergiesdocumented as of this encounter (statuses as of 07/27/2024) Medications Medication Sig Dispensed Refills Start Date [...] rescue kit. 20 Capsule 4 Active Nystatin 609837 UNIT/GM External Cream Apply topically to affected area 2 times a day. Continue until resolved 30 g 2 4 Active Doxycycline Hyclate 100 MG Oral CapsuleIndications :COPD, group D, by GOLD 2017 classification ([facility]) Take 1 Capsule by mouth in the morning and 1 Capsule before bedtime. Rescue kit. Use only as instructed. 20 Capsule 4 Active Compressor Nebulizer Inhale via nebulizer. Use as directed. 1 Each 1 4 Active predniSONE 20 MG Oral Tablet (Deltasone)Indicat ions:COPD, group D, by GOLD 2017 classification ([facility]) Take 2 Tablets by mouth in the morning. Rescue kit. Use only as instructed. 10 Tablet 4 07/20/20 24 Discontinu ed(Refill) documented as of this encounter (statuses as of 07/27/2024) Active Problems Problem Noted Date Diagnosed Date [...] goal LDL below 70 07/17/2023 Atherosclerosis of [place] co ronary artery without angina pectoris 07/05/2023 [...] as of this encounter (statuses as of 07/27/2024) Resolved Problems Problem Noted Date Diagnosed Date [...] Classes - JULIA Class D - Inhaled Bxxfwobqfxymzh-FAKD-SYLO Combination Inhaler (Sandro) Remote Patient Monitoring Vendor: Current Health Device(s): Continuous Monitoring Device Traditional Scale Self-Management plan High frequency nebulizer treatments every 4-6 hours around the clock Exacerbation plan Chest Xray Additional Comments: On continuous o2 2-3lpm Bipap at night Body mass index (BMI) of 40. 0 to 44.9 in adult 07/08/2023 07/09/2024 Overview: Per Obesity protocol Atherosclerosis of [place] co ronary artery without angina pectoris 07/05/2023 08/29/2023 Dyspnea 07/04/2023 08/13/2023 Occupational exposure in workplace 07/04/2023 02/14/2024 Chronic congestive heart failure 06/08/2023 07/05/2023 COPD, severe 06/08/2023 07/11/2023 Overview: Per COPD GOLD Classification Chronic hypoxemic respiratory failure 06/08/2023 07/04/2023 Chronic respiratory failure with hypoxia, on home oxygen therapy 06/08/2023 08/29/2023 Diabetes mellitus without complication 06/08/2023 08/29/2023 documented as of this encounter (statuses as of 07/27/2024) Immunizations Name Administration Dates Next Due Pneumococcal [...] Telephone Encounter - Ashely Garduno LPN - 07/27/2024 1:35 PM EDT Filled out tomorrow health form and faxed OV notes, demographics/insurance, signed DME order to for the Oxygen 3L * Telephone Encounter - Teressa Wang OSA - 07/27/2024 11:34 AM EDT Patient called to check on status of oxygen. I advised the nebulizer was at pharmacy. He knows [facility] is providing the oxygen but has not heard anything. Patient says he is in the hospital and notsure when he is being discharged but it will be so and hopes to have oxygen situated when he is released. His contact number is [phone] . Please call him to advise. Thank you * Telephone Encounter - Dacia Guan OSA [...] wish to have their order completed at? [facility] Fax Number, if applicable: NA Please contact Maira at [phone] when faxed If the caller is not [...] Care Team (Late st Contact Info) Description 07/28/2024 6:00 AM EDT Anticoagulation Centralized Clinical Pharmacy Services, Oscar Peace [address] [place] [address] [place] [address] [place] [address] 08/03/2024 3:00 PM EDT Office Visit [facility]opa[facility] [address] [place] [address] Cm Dawson, DO [address] [place] [address] 08/10/2024 12:20 PM EDT Office Visit [place] [address] [place] [phone] Charley Crane MD [address] [place] [address] 09/02/2024 3:00 PM EST Office Visit [facility] Disorders [facility]tr [facility] [address] [place] [phone] Audrey Lee, [address] [place] [address] Health Maintenance Due Date Last Done Comments Alpha-1 Antitrypsin 1974 CKD PHOS USE SMARTSET 28025 1974 DTap/Tdap Vaccines (1 - Tdap) 1975 [...] 04/28/2024, , 09/09/2023 CKD HGB USE SMARTSET 17552 06/15/202506/15, 06/15/2024, 05/27/2024, Additional history exists Diabetic [...] machine documented in this encounter Care Teams Retinal Surgeon Relationship Specialty Start Date End Date Charley Crane MD [address] [place] [address] PCP - General Internal Medicine 06/04/23 documented as of this encounter
--- OUTSIDE RECORDS SUMMARY | 2024-09-13 13:41 | External Medical Summary | Summary of Care ---
Author Name Unknown Organization [facility] Address [address] [place] [address] Phone [phone] Care Team Providers Care Precinct Police Lieutenant Name Role Phone Charley Crane MD Primary Care Provider [phone] Reason for Visit * Reason Onset Date Comments Order Request 07/14/2024 Advice 07/14/2024 Encounter Details Date Type Department Care Team (Late st Contact Info) Description 07/14/2024 Telephone [facility] [address] [place] [address] Charley Crane MD [address] [place] [address] Order Request; Advice Allergies No [...] rescue kit. 20 Capsule 4 Active Nystatin 722293 UNIT/GM External Cream Apply topically to affected area 2 times a day. Continue until resolved 30 g 2 4 Active Doxycycline Hyclate 100 MG Oral CapsuleIndications :COPD, group D, by GOLD 2017 classification ([facility]) Take 1 Capsule by mouth in the morning and 1 Capsule before bedtime. Rescue kit. Use only as instructed. 20 Capsule 4 Active Compressor Nebulizer Inhale via nebulizer. Use as directed. 1 Each 1 4 Active predniSONE 20 MG Oral Tablet (Deltasone)Indicat ions:COPD, group D, by GOLD 2017 classification ([facility]) Take 2 Tablets by mouth [...] goal LDL below 70 07/17/2023 Atherosclerosis of [place] co ronary artery without angina pectoris 07/05/2023 [...] Remote Patient Monitoring Vendor: [facility] Device(s): Connected Scale Continuous [...] Classes - JULIA Class D - Inhaled Egyjgnyobacvuh-ULVK-UINO Combination Inhaler (Sandro) Remote Patient Monitoring Vendor: Current Health Device(s): Continuous Monitoring Device Traditional Scale Self-Management plan High frequency nebulizer treatments every 4-6 hours around the clock Exacerbation plan Chest Xray Additional Comments: On continuous o2 2-3lpm Bipap at night Body mass index (BMI) of 40. 0 to 44.9 in adult 07/08/2023 07/09/2024 Overview: Per Obesity protocol Atherosclerosis of [place] co ronary artery without angina pectoris 07/05/2023 [...] Miscellaneous Notes * Telephone Encounter - Teressa Wang OSA - 07/27/2024 11:34 AM EDT Patient called to check on status of oxygen. I advised the nebulizer was at pharmacy. He knows [facility] is providing the oxygen but has not heard anything. Patient says he is in the hospital and notsure when he is being discharged but it will be so and hopes to have oxygen situated when he is released. His contact number is [phone] . Please call him to advise. Thank [...] [facility] to have [facility] Fax Number, if applicable: NA Please contact Maira at [phone] when faxed If the caller is not [...] Centralized Clinical Pharmacy Services, Oscar Peace [address] [place] [address] [place] [address] [facility], [address] [place] [address] 08/03/2024 3:00 PM EDT Office Visit Orthopaedics [facility] [address] [place] [address] Cm Dawson, DO [address] [place] [address] 08/10/2024 12:20 PM EDT Office Visit [facility] [address] [place] [phone] Charley Crane MD [address] [place] [address] 09/02/2024 3:00 PM EST Office Visit [facility] Disorders [facility]tr [facility] [address] [place] [phone] Audrey Lee, [address] [place] [address] Health Maintenance Due Date Last Done Comments Alpha-1 Antitrypsin 1974 CKD PHOS USE SMARTSET 04147 1974 DTap/Tdap Vaccines (1 - Tdap) 1975 [...] 04/28/2024, , 09/09/2023 CKD HGB USE SMARTSET 66299 06/15/202506/15, 06/15/2024, 05/27/2024, Additional history exists Diabetic [...] machine documented in this encounter Care Teams Precinct Police Lieutenant Relationship Specialty Start Date End Date Charley Crane MD [address] [place] [address] PCP - General Internal Medicine 06/04/23 documented as of this encounter
--- OUTSIDE RECORDS SUMMARY | 2024-09-13 13:41 | External Medical Summary | Summary of Care ---
Author Name Unknown Organization [facility] Address [address] [place] [address] Phone [phone] Care Team Providers Care Copy Machine Operator Name Role Phone Charley Crane MD Primary Care Provider [phone] Encounter Details Date Type Department Care Team (Late st Contact Info) Description 07/23/2024 Population Health External Data Unspecified Department Allergies No known active allergiesdocumented as of this encounter (statuses as of 07/23/2024) Medications Medication Sig Dispensed Refills Start Date [...] rescue kit. 20 Capsule 4 Active Nystatin 902743 UNIT/GM External Cream Apply topically to affected area 2 times a day. Continue until resolved 30 g 2 4 Active Doxycycline Hyclate 100 MG Oral CapsuleIndications: COPD, group D, by GOLD 2017 classification ([facility]) Take 1 Capsule by mouth [...] as of this encounter (statuses as of 07/23/2024) Active Problems Problem Noted Date Diagnosed Date [...] goal LDL below 70 07/17/2023 Atherosclerosis of [place] co ronary artery without angina pectoris [...] as of this encounter (statuses as of 07/23/2024) Resolved Problems Problem Noted Date Diagnosed Date [...] Classes - JULIA Class D - Inhaled Kxtjrqkljhtpqi-KQAY-YDED Combination Inhaler (Sandro) Remote Patient Monitoring Vendor: Current Health Device(s): Continuous Monitoring Device Traditional Scale Self-Management plan High frequency nebulizer treatments every 4-6 hours around the clock Exacerbation plan Chest Xray Additional Comments: On continuous o2 2-3lpm Bipap at night Body mass index (BMI) of 40. 0 to 44.9 in adult 07/08/2023 07/09/2024 Overview: Per Obesity protocol Atherosclerosis of [place] co ronary artery without angina pectoris [...] as of this encounter (statuses as of 07/23/2024) Immunizations Name Administration Dates Next Due Pneumococcal [...] Mobile Phlebotomy [facility] [address] [place] [address] [facility], Gml Mobile Home Draw [address] [place] [address] 07/28/2024 6:00 AM EDT Anticoagulation Centralized Clinical Pharmacy Services, Oscar Peace [address] [place] [address] [place] [address] [place] [address] 08/03/2024 3:00 PM EDT Office Visit Orthopaedics [facility] [address] [facility] [place] [address] Cm Dawson, DO [address] [place] [address] 08/10/2024 12:20 PM EDT Office Visit [facility] [address] [facility], [place] [phone] Charley Crane MD [address] [place] [facility] [place] [address] 09/02/2024 3:00 PM EST Office Visit [facility] Disorders Ctr [facility] [address] [place] [phone] Audrey Lee, DO [address] [place] [address] Health Maintenance Due Date Last Done Comments Alpha-1 Antitrypsin 1974 CKD PHOS USE SMARTSET 28876 1974 DTap/Tdap Vaccines (1 - Tdap) 1975 [...] 04/28/2024, , 09/09/2023 CKD HGB USE SMARTSET 55040 06/15/202506/15, 06/15/2024, 05/27/2024, Additional history exists Diabetic [...] filedocumented as of this encounter Care Teams Copy Machine Operator Relationship Specialty Start Date End Date Charley Crane MD [address] [facility] [place] [address] PCP - General Internal Medicine 06/04/23 documented as of this encounter
--- OUTSIDE RECORDS SUMMARY | 2024-09-13 13:41 | External Medical Summary | Summary of Care ---
Author Name Unknown Organization [facility] [address] [facility] [address] Phone [phone] Care Team Providers Care Forestry Aid Name Role Phone Charley Crane MD Primary Care Provider [phone] Reason for Visit * Reason Comments Dosage Adjustment Via Phone (anticoag Cl inic) Encounter Details Date Type Department Care Team (Late st Contact Info) Description 07/30/2024 6:45 AM EDT Anticoagulation [facility], Oscar Peace [address] [place] [address] [place] [address] [facility], [address] [place] [address] 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 20 Capsule 4 Active Nystatin 202803 UNIT/GM External Cream Apply topically to affected area 2 times a day. Continue until resolved 30 g 2 4 Active Doxycycline Hyclate 100 MG Oral CapsuleIndications: COPD, group D, by GOLD 2017 classification ([facility]) Take 1 Capsule by mouth in the morning and 1 Capsule before bedtime. Rescue kit. Use only as instructed. 20 Capsule 4 Active Compressor Nebulizer Inhale via nebulizer. Use as directed. 1 Each 1 4 Active predniSONE 20 MG Oral Tablet (Deltasone)Indicati ons:COPD, group D, by GOLD 2017 classification ([facility]) Take 2 Tablets by mouth in the morning. Rescue kit. Use only as instructed. 10 Tablet 4 Active documented as of this encounter (statuses as of 07/30/2024) Active Problems Problem Noted Date Diagnosed Date [...] goal LDL below 70 07/17/2023 Atherosclerosis of [place] co ronary artery without angina pectoris 07/05/2023 [...] as of this encounter (statuses as of 07/30/2024) Resolved Problems Problem Noted Date Diagnosed Date [...] Classes - JULIA Class D - Inhaled Pqktwtawtawywh-SKNE-EAQR Combination Inhaler (Trellegy) Remote Patient Monitoring Vendor: Current Health Device(s): Continuous Monitoring Device Traditional Scale Self-Management plan High frequency nebulizer treatments every 4-6 hours around the clock Exacerbation plan Chest Xray Additional Comments: On continuous o2 2-3lpm Bipap at night Body mass index (BMI) of 40. 0 to 44.9 in adult 07/08/2023 07/09/2024 Overview: Per Obesity protocol Atherosclerosis of [place] co ronary artery without angina pectoris 07/05/2023 08/29/2023 Dyspnea 07/04/2023 08/13/2023 Occupational exposure in workplace 07/04/2023 02/14/2024 Chronic congestive heart failure 06/08/2023 07/05/2023 COPD, severe 06/08/2023 07/11/2023 Overview: Per COPD GOLD Classification Chronic hypoxemic respiratory failure 06/08/2023 07/04/2023 Chronic respiratory failure with hypoxia, on home oxygen therapy 06/08/2023 08/29/2023 Diabetes mellitus without complication 06/08/2023 08/29/2023 documented as of this encounter (statuses as of 07/30/2024) Immunizations Name Administration Dates Next Due Pneumococcal [...] this encounter Progress Notes * Isabel Li, [facility] - 07/30/2024 12:56 PM EDT Medication Therapy Disease Management - Anticoagulation Patient: Bala Coronado Jr. | : 1955 Subjective Contacts Contact Date/Time Type Contact Phone/Fax 07/30/2024 01:05 PM EDT Phone (Outgoing) Cliff Bala Kern (Self) [phone] (M) Spoke to Patient Patient-Reported Symptoms: Patient Findings Positives: Hospital admission Comments: Pt was discharged from [facility] to home. Pt was admitted for acute on CHF. Pertinent medications changes none. INR at discharge was 2.0. Pt was provided the following directions at discharge: 10mg MWF; 15mg allother days Objective Current Warfarin Dose As of 07/30/2024 INR Result As of 07/30/2024 INR goal: 2.0-3.0 INR used for dosing: No new INR was available at the time of this encounter. Assessment & Plan Warfarin Plan As of 07/30/2024 Full warfarin instructions: 10 mg every Mon, Wed, Fri; 15 mg all other days Next INR check: 08/03/2024 Repeat PT/INR in 5 day(s) Weekly dose: not changed Additional Dosing Information: Description [facility] Pill packs from [facility] - Warfarin NOT included Isabel Li RP Clinical Pharmacist 07/30/2024, 1:02 PM documented in this encounter Plan of Treatment Upcoming Encounters Date Type Department Care Team (Late st Contact Info) Description 08/03/2024 2:00 PM EDT [facility] [address] [facility] [phone] Charley Crane MD [address] [place] [address] 08/03/2024 3:00 PM EDT Office Visit Orthopaedics [facility] [address] [place] [address] Cm Dawson, [address] [place] [address] 08/03/2024 6:00 PM EDT Anticoagulation [facility] Clinical Pharm[facility] Services, Oscar Peace [address] [place] [address] [place] [address] [place] [address] 08/10/2024 12:20 PM EDT Office Visit [facility] [address] [facility] [place] [phone] Charley Crane MD [address] [place] [address] 09/02/2024 3:00 PM EST Office Visit [facility] Disorders Ctr [facility] [address] [place] [phone] Audrey Lee DO [address] [place] [phone] Health Maintenance Due Date Last Done Comments Alpha-1 Antitrypsin 1974 CKD PHOS USE SMARTSET 54388 1974 DTap/Tdap Vaccines (1 - Tdap) 1975 [...] 04/28/2024, , 09/09/2023 CKD HGB USE SMARTSET 15766 06/15/202506/15, 06/15/2024, 05/27/2024, Additional history exists Diabetic [...] as of this encounter Visit Diagnoses Diagnosis 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
--- OUTSIDE RECORDS SUMMARY | 2024-09-13 13:41 | External Medical Summary | Summary of Care ---
Author Name Unknown Organization [facility] Address [address] [facility] [place] [address] Phone [phone] Care Team Providers Care Feed Elevator Worker Name Role Phone Charley Crane MD Primary Care Provider Reason for Visit * Reason Comments No Show Dosage Adjustment Via Phone (anticoag Cl inic) Encounter Details Date Type Department Care Team (Late st Contact Info) Description 07/28/2024 6:00 AM EDT Anticoagulation [facility] Services, Oscar Peace [address] [place] [address] [place] [address] [facility], [address] [place] [address] Anticoagulation management encounter*; correction current use of anticoagulant therapy; Longstanding persistent atrial fibrillation (HCC); History of deep venous thrombosis (DVT) of distal vein of left lower extremity Allergies No known active allergiesdocumented as of this encounter (statuses as of 07/28/2024) Medications Medication Sig Dispensed Refills Start Date [...] rescue kit. 20 Capsule 4 Active Nystatin 150946 UNIT/GM External Cream Apply topically to affected area 2 times a day. Continue until resolved 30 g 2 4 Active Doxycycline Hyclate 100 MG Oral CapsuleIndications: COPD, group D, by GOLD 2017 classification ([facility]) Take 1 Capsule by mouth in the morning and 1 Capsule before bedtime. Rescue kit. Use only as instructed. 20 Capsule 4 Active Compressor Nebulizer Inhale via nebulizer. Use as directed. 1 Each 1 4 Active predniSONE 20 MG Oral Tablet (Deltasone)Indicati ons:COPD, group D, by GOLD 2017 classification ([facility]) Take 2 Tablets by mouth in the morning. Rescue kit. Use only as instructed. 10 Tablet 4 Active documented as of this encounter (statuses as of 07/28/2024) Active Problems Problem Noted Date Diagnosed Date [...] as of this encounter (statuses as of 07/28/2024) Resolved Problems Problem Noted Date Diagnosed Date [...] Classes - JULIA Class D - Inhaled Osaksrecsudqfb-ZTFQ-TXTZ Combination Inhaler (Trellegy) Remote Patient Monitoring Vendor: [...] as of this encounter (statuses as of 07/28/2024) Immunizations Name Administration Dates Next Due Pneumococcal [...] Progress Notes * Isabel Li RPh - 07/28/2024 12:20 PM EDT Pt currently admitted to [facility]. Per chart review possible d/c . Isabel Li Rph, Pharm.D. Clinical Pharmacist [facility] Services ([facility]) [phone] 07/28/2024,12:21 PM * Tamara Oquendo PHARM Tech - 07/28/2024 7:35 AM EDT GML canceled PT/INR draw due to patient being admitted. [facility] please advise, no future GML appointment scheduled at this time Thank you, Tamara Oquendo Slip Tender [facility] ([facility]) 07/28/2024 7:36 AM documented in this encounter Plan of Treatment Upcoming Encounters Date Type Department Care Team (Late st Contact Info) Description 07/30/2024 6:45 AM EDT Anticoagulation [facility], [place] [address] [place] [address] [place] [address] [facility], [address] [place] [address] 08/03/2024 2:00 PM EDT [address] [phone] Charley Crane MD [address] [facility] [address] 08/03/2024 3:00 PM EDT Office Visit Orthopaedics [facility] [address] [place] [address] Cm Dawson, [address] [place] [address] 08/10/2024 12:20 PM EDT Office Visit [place] [address] [address] [facility] [phone] Charley Crane MD [address] [place] [facility] [place] [address] 09/02/2024 3:00 PM EST Office Visit [facility] Ctr [facility] [address] [place] [phone] Audrey Lee, DO [address] [place] [phone] Health Maintenance Due Date Last Done Comments Alpha-1 Antitrypsin 1974 CKD PHOS USE SMARTSET 40544 1974 DTap/Tdap Vaccines (1 - Tdap) 1975 [...] 04/28/2024, , 09/09/2023 CKD HGB USE SMARTSET 44175 06/15/202506/15, 06/15/2024, 05/27/2024, Additional history exists Diabetic [...] encounter- Primary 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
--- OUTSIDE RECORDS SUMMARY | 2024-09-13 13:41 | External Medical Summary | Summary of Care ---
Author Name Unknown Organization [facility] Address [address] [facility] [place] [address] Phone [phone] Care Team Providers Care Geothermal Heat Pump Machinist Name Role Phone Charley Crane MD Primary Care Provider [phone] Reason for Visit * Reason Onset Date Comments Medication Refill 07/31/2024 Encounter Details Date Type Department Care Team (Late st Contact Info) Description 07/31/2024 [facility], [facility] [address] [facility] [address] Michelle Kim, RN 132 [place] [address] Hypertension goal BP (blood pressure) < 130/80* Allergies No known active allergiesdocumented as of [...] by GOLD 2017 classification ([facility]) Take 2 Tablets by mouth in the [...] the morning. 30 Tablet 11 4 Active Enalapril Maleate 2.5 MG Oral Tablet (Vasotec) [...] classification 11/04 Overview: Per COPD GOLD Classification medical terminologist current use of anticoagulant therapy 0 2023 Longstanding persistent atrial fibrillation 06/29 Last Assessment & Plan: Rate controlled Continue coumadin Hypertension goal BP (blood pressure) < 130/80 0 07/17/2023 Dyslipidemia, goal LDL below 70 07/17/2023 Atherosclerosis of [place] co 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 Jardiance) Remote Patient Monitoring Vendor: [facility] Device(s): Connected Scale Continuous Monitoring [...] Classes - JULIA Class D - Inhaled Pxqykvsiiuekmx-IUHK-PMGG Combination Inhaler (Sandro) Remote Patient Monitoring Vendor: Current Health Device(s): Continuous Monitoring Device Traditional Scale Self-Management plan High frequency nebulizer treatments every 4-6 hours around the clock Exacerbation plan Chest Xray Additional Comments: On continuous o2 2-3lpm Bipap at night Body mass index (BMI) of 40. 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 (Household - for [...] Telephone Encounter - Charley Crane MD - 07/31/2024 2:46 PM EDTSigned Prescriptions: Disp Refills Enalapril Maleate 2.5 MG Oral Tablet (Vaso*30 Tab*11 Sig: Take 1 Tablet by mouth in the morning. Authorizing Provider: CHARLEY CRANE * Telephone Encounter - Michelle Kim RN - 07/31/2024 2:32 PM EDT Pt in needs of refill of Enalapril 5mg - take a half a tab daily (2.5mg) He came home from the hospital on this dose and dtr in law was confused and thought enalapril was discontinued completely. She threw away the bottle of enalapril. Spoke with [facility] and they need a new script sent over to do an override to get a replacement fill. Thank you documented in this encounter Plan of Treatment Upcoming Encounters Date Type Department Care Team (Late st Contact Info) Description 08/03/2024 7:05 AM EDT Laboratory Lab [facility] [address] [facility] [place] [address] [facility], G[facility] Mobile Home Draw [address] [employer] [place] [address] 08/03/2024 2:00 PM EDT Office Visit [address] [place] [phone] Charley Crane MD [address] [place] [address] 08/03/2024 6:00 PM EDT Anticoagulation [facility] Services, Oscar Peace [address] [place] [address] [place] [address] [place] [address] 08/10/2024 12:20 PM EDT Office Visit [address] [place] [phone] Charley Crane MD [address] [place] [address] 08/14/2024 10:00 AM EDT [facility] Visit [facility], [facility] [address] [place] [address] Michelle Kim, RN [address] [place] [address] 09/02/2024 3:00 PM EST Office Visit [facility] Disorders Ctr [facility] [address] [place] [phone] Audrey Lee DO [address] [place] [address] Health Maintenance Due Date Last Done Comments Alpha-1 Antitrypsin 1974 CKD PHOS USE SMARTSET 43717 1974 DTap/Tdap Vaccines (1 - Tdap) 1975 [...] 04/28/2024, , 09/09/2023 CKD HGB USE SMARTSET 12854 06/15/202506/15, 06/15/2024, 05/27/2024, Additional history exists Diabetic [...] as of this encounter Visit Diagnoses Diagnosis Hypertension goal BP (blood pressure) < 130/80- Primary Unspecified essential hypertension documented in this encounter Care Teams Geothermal Heat Pump Machinist Relationship Specialty Start Date End Date Charley Crane MD [address] [place] [facility] [place] [address] PCP - General Internal Medicine 06/04/23 documented as of this encounter
--- OUTSIDE RECORDS SUMMARY | 2024-09-13 13:42 | External Medical Summary | Summary of Care ---
Author Name Unknown Organization [facility] Address [address] [place] [address] Phone [phone] Care Team Providers Care News Broadcaster Name Role Phone Charley Crane MD Primary Care Provider [phone] Reason for Visit * Reason Onset Date Comments Medication Refill 07/20/2024 Re: Prednisone Oral Tablet 20 MG Encounter Details Date Type Department Care Team (Late st Contact Info) Description 07/20/2024 Refill [facility], [facility] 132 [facility] [place] [address] Anirudh Gonzalez PA-C [address] [facility] [place] [address] COPD, group D, by GOLD 2017 classification ([facility]) Allergies No known active allergiesdocumented as of [...] rescue kit. 20 Capsule 4 Active Nystatin 355355 UNIT/GM External Cream Apply topically to affected area 2 times a day. Continue until resolved 30 g 2 4 Active Doxycycline Hyclate 100 MG Oral CapsuleIndications :COPD, group D, by GOLD 2017 classification ([facility]) Take 1 Capsule by mouth in the morning and 1 Capsule before bedtime. Rescue kit. Use only as instructed. 20 Capsule 4 Active predniSONE 20 MG Oral Tablet (Deltasone)Indicat ions:COPD, group D, by GOLD 2017 classification ([facility]) Take 2 Tablets by mouth in the morning. Rescue kit. Use only as instructed. 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 Rescue kit. Use only as instructed. Authorizing Provider: ANIRUDH GONZALEZ * Telephone Encounter - Bobbi Worley OSA - 07/20/2024 8:41 AM EDT Please authorize with refills, as appropriate. Thank you, CRISTOFER Solis documented in this encounter Plan of Treatment Upcoming Encounters Date Type Department Care Team (Late st Contact Info) Description 07/27/2024 7:10 AM EDT Laboratory Lab [facility] [address] [facility] [place] [address] [facility], Gml Mobile Home Draw [address] [facility] [place] [address] 07/27/2024 2:15 PM EDT [facility] Visit [facility], [address] [place] [address] Gely Gilmore MD [address] [place] [address] [place] [address] 07/28/2024 6:00 AM EDT Anticoagulation Central[facility] Clinical Pharmacy Services, Oscar Peace [address] [place] [address] [place] [address] [place] [address] 08/03/2024 3:00 PM EDT Office Visit [facility]opa[facility]ics [facility] 132 [facility] [place] [address] Cm Dawson, DO [address] [facility] [place] [address] 08/10/2024 12:20 PM EDT Office Visit [facility] [address] [facility], [place] [phone] Charley Crane MD [address] [place] [address] 09/02/2024 3:00 PM EST Office Visit Sleep Disorders Ctr [facility] [address] [place] [phone] Audrey Lee, DO [address] [place] [address] Health Maintenance Due Date Last Done Comments Alpha-1 Antitrypsin 1974 CKD PHOS USE SMARTSET 73154 1974 DTap/Tdap Vaccines (1 - Tdap) 1975 [...] 04/28/2024, , 09/09/2023 CKD HGB USE SMARTSET 15419 06/15/202506/15, 06/15/2024, 05/27/2024, Additional history exists Diabetic [...] (HCC) documented in this encounter Care Teams News Broadcaster Relationship Specialty Start Date End Date Charley Crane MD [address] [place] [address] PCP - General Internal Medicine 06/04/23 documented as of this encounter
[2024-09-13 14:07] LABS: Basophils # (auto) 0.07 K/uL (0.00-0.20); Basophils % (auto) 0.9 %; Eosinophils # (auto) 0.17 K/uL (0.00-0.50); Eosinophils % (auto) 2.1 %; Hematocrit (blood only) 31.6 % (42.0-52.0); Hemoglobin 9.4 g/dl (14.0-18.0); Immature Granulocytes # (auto) 0.04 K/uL (0.01-0.20); Immature Granulocytes % (auto) 0.5 %; Lymphocytes # (auto) 0.54 K/uL (1.20-3.40); Lymphocytes % (auto) 6.6 %; Mean Corpuscular Hemoglobin 27.1 pg (25.0-34.0); Mean Corpuscular Hgb Conc 29.7 g/dL (32.0-36.0); Mean Corpuscular Volume 91.1 fL (80.0-100.0); Mean Platelet Volume 9.4 fL (9.4-12.4); Monocytes # (auto) 0.63 K/uL (0.11-0.59); Monocytes % (auto) 7.7 %; Neutrophils # (auto) 6.73 K/uL (1.40-6.50); Neutrophils % (auto) 82.2 %; Platelet Count 245 K/uL (130-400); RDW Coefficient of Variation 16.1 % (11.5-14.5); RDW Standard Deviation 54.4 fL (36.4-46.3); Red Blood Count 3.47 M/uL (4.70-6.10); White Blood Count 8.18 K/ul (4.8-10.8)
[2024-09-13 14:24] LABS: Albumin Globulin Ratio 1.3 (0.9-2); Albumin Level 3.9 gm/dl (3.4-5.0); BUN Creatinine Ratio 43.6 (10-20); Bilirubin,Total 0.5 mg/dl (0.2-1.0); Calcium 9.4 mg/dl (8.6-10.3); Potassium 4.3 mmol/L (3.5-5.1); Total Protein 6.9 gm/dl (6.0-8.3)
[2024-09-13 14:42] LABS: Adenovirus PCR Not Detected (NotDetected); Bordetella parapertussis PCR Not Detected (NotDetected); Bordetella pertussis PCR Not Detected (NotDetected); Chlamydia pneumoniae PCR Not Detected (NotDetected); Coronavirus 229E PCR Not Detected (NotDetected); Coronavirus CoV-2 (COVID19)PCR Not Detected (NotDetected); Coronavirus HKU1 PCR Not Detected (NotDetected); Coronavirus NL63 PCR Not Detected (NotDetected); Coronavirus OC43PCR Not Detected (NotDetected); Human Metapneumovirus PCR Not Detected (NotDetected); Influenza A PCR Not Detected (NotDetected); Influenza B PCR Not Detected (NotDetected); Mycoplasma pneumoniae PCR Not Detected (NotDetected); Parainfluenza Virus 1 PCR Not Detected (NotDetected); Parainfluenza Virus 2 PCR Not Detected (NotDetected); Parainfluenza Virus 3 PCR Not Detected (NotDetected); Parainfluenza Virus 4 PCR Not Detected (NotDetected); Respiratory Syncytial VirusPCR Not Detected (NotDetected); Rhinovirus/Enterovirus PCR Not Detected (NotDetected)
[2024-09-13 14:56] LABS: Appearance Urine Clear (Clear); Bilirubin Urine Negative (Negative); Blood Urine Negative (Negative); Color Urine Yellow; Glucose Urine UA 2+ (Negative); Ketones Urine Negative (Negative); Leukocyte Esterase Urine Negative (Negative); Nitrite Urine Negative (Negative); Protein Urine Negative (Negative); Specific Gravity Urine 1.011 (1.000-1.030); Urobilinogen Urine Negative (Negative); pH Urine 5.5 (4.5-7.5)
--- NOTE | 2024-09-13 15:05 | XRay Report ---
EXAM: Radiograph of the Chest 1 View INDICATION: Dyspnea. TECHNIQUE: Frontal view of the chest. COMPARISON: No relevant prior studies available. FINDINGS: Lungs and pleural spaces: Increased interstitial markings noted slightly greater on the right. The lungs are hyperinflated. Developing consolidation in the right lung base not excluded. No visible pleural effusion. No pneumothorax. Heart: Shape and configuration within normal limits allowing for technique. Mediastinum: Normal contour. Bones/joints: Degenerative spine and left shoulder. C anterior dislocation of the right shoulder noted and may be chronic. No acute osseous abnormality. Soft tissues: No abnormality noted. No radiopaque foreign body noted. Upper abdomen: No abnormality noted. IMPRESSION: 1. Increased interstitial changes may be chronic. Component of vascular congestion not excluded. 2. Developing right basilar pneumonia not excluded. 3. Age-indeterminate dislocation right shoulder may be chronic. No acute osseous abnormality. ACT 112: Negative or not required by law. Electronically signed by Michelle Houston 09-13-2024 3:05 PM
[2024-09-13] MEDS: FUROSEMIDE 40 MG/4 ML VIAL IV ONE (15:42)
--- NOTE | 2024-09-13 16:11 | Emergency Department Note ---
Impression & Plan Acute on chronic congestive heart failure, Acute respiratory failure with hypoxia and hypercarbia ED Provider Note NAME: MEÑO CORONADO AGE: 69 SEX: M : 1955 ARRIVES VIA: Ambulance INFORMANT: Patient, ED PROVIDER(S): Bessy Stewart MD CHIEF COMPLAINT: Shortness of breath HPI: This is a 69-year-old male with history of CHF and lower obesity presenting for increased shortness of breath. Patient notes his bilateral extremity are swollen. He notes that for the past 3 weeks he has had increasing symptoms. He notes he was 3 L of oxygen. He does have this is not been enough. ROS: See above HPI for pertinent positives & negatives. A total of 10 systems reviewed and were otherwise negative. PAST MEDICAL HISTORY: See Below PAST SURGICAL HISTORY: See Below FAMILY HISTORY: See Below SOCIAL HISTORY: See Below HOME MEDICATIONS: See Below ALLERGIES: See Below VITALS: See Below PHYSICAL EXAMINATION: General: Elevated BMI, chronically ill-appearing Head: Normocephalic and atraumatic Eyes: Normal inspection, extraocular muscles intact Ear, nose, throat: Normal external exam Neck: Normal range of motion Respiratory: Crackles in all lung saxena Cardiovascular: Regular rate/rhythm, no murmur GI: soft, nontender, no guarding or rebound Extremities: 2+ pitting edema to bilateral lower extremities Neuro: The patient awake and alert, appropriately conversive, no focal deficits, symmetric faces Skin: Warm, dry, and intact MEDICAL DECISION MAKING: This is a 69-year-old male presenting for increased shortness of breath. Patient has peripheral overload on exam. He is having slight crackles. He has increasing lower extremity edema. -ECG independently interpreted by me with atrial fibrillation at a rate of 56, normal QRS, normal QTc, no ST segment elevations consistent with STEMI criteria -Hemoglobin is downtrending at 9.4, otherwise CO2 elevated at 40, his baseline. No significant other abnormalities -Upper respiratory panel negative -Patient's chest x-ray reveals increasing pulmonary vascular congestion upon my independent interpretation -Will give Lasix IV 40 mg Differential diagnosis: CHF, pneumonia, upper respiratory infection ER treatment provided: See below Diagnostics interpreted by me: ECG: ECG independently interpreted by me with A-fib with a rate of 56, normal QRS, normal QTc, no ST segment elevations consistent with STEMI criteria Cardiac Monitoring: An order was placed for continuous cardiac monitoring. The monitor shows a rate of 64 with sinus rhythm. Laboratory studies: As stated above and show below. Imaging studies: See below. Past Med/Surg History Problem List (Updated 09/13/24 @ 19:55 by Bessy Stewart MD) Morbid obesity Acute on chronic respiratory failure with hypoxia and hypercapnia Bradycardia Hypotension Hyperkalemia Bilateral cellulitis of lower leg Hypoxia (Acute) Abnormal CT scan, chest Obesity hypoventilation syndrome Acute on chronic heart failure with preserved ejection fraction Congestive heart failure (Acute) Acute respiratory failure with hypoxia and hypercarbia (Acute) Acute on chronic congestive heart failure (Acute) O2 dependent (Acute) Anticoagulant long-term use Chronic a-fib DM II (diabetes mellitus, type II), controlled Chronic respiratory failure with hypoxia COPD (chronic obstructive pulmonary disease) (Acute) Medical History Pulmonary hypertension Hx of smoking Chronic congestive heart failure Hx of deep venous thrombosis Surgical History No pertinent past surgical history Family History Other Diabetes Social History Smoking Status: Never smoker Tobacco Type: Cigarettes Second Hand Exposure: Yes; Do You Dip or Chew Tobacco: No; Hx Alcohol Use: No Hx Substance Use: No Preferred Language: Mohawk Communication Ability: Effective Material Specialist Required: No Beliefs That Will Affect Care: None Current Living Situation: Alone Current Living Situation Comment: Lives with Sandeep (son) and Maira Coronado (dtr in law) Other Information That Helps Us Care for You: No Feels Safe at Home: Yes Safety Concerns: Feels Safe At This Time Assistive Devices: BiPap, Glasses and Oxygen - Continuous Allergies Allergies Allergy/AdvReac Type Severity Reaction Status Date / Time No Known Allergies Allergy Verified 09/13/24 15:45 Home Meds Home Medications Medication Instructions Recorded Confirmed empagliflozin 10 mg tablet 10 mg PO QAM 06/10/23 09/13/24 fluticasone fur. 100 mcg-umeclid 1 inh inhalation DAILY 06/10/23 09/13/24 62.5 mcg-vilant 25 mcg inhalat.powder (Trelegy Ellipta) [id number] 300 mcg-K 60 1 tab PO DAILY 06/10/23 09/13/24 mcg-lycop 600 mcg-lutein 300 mcg tablet (Centrum Silver Men) pantoprazole 40 mg tablet,delayed 40 mg PO DAILY 06/10/23 09/13/24 release albuterol sulfate 90 mcg/actuation 2 puff inhalation Q6H PRN 05/12/24 09/13/24 aerosol inhaler Shortness Of Breath Or Wheezing atorvastatin 80 mg tablet 80 mg PO QAM 05/12/24 09/13/24 fluticasone propionate 50 2 spray intranasal DAILY 05/12/24 09/13/24 mcg/actuation nasal spray,suspension montelukast 10 mg tablet 10 mg PO QAM 07/20/24 09/13/24 Previous Rx's Medication Instructions Recorded carvedilol 3.125 mg tablet 3.125 mg PO BIDM #60 tabs 06/17/23 ipratropium 0.5 mg-albuterol 3 mg 3 ml inhalation Q6H Shortness Of 05/19/24 (2.5 mg base)/3 mL nebulization Breath #0 mL soln sodium chloride 7 % for 4 ml NEB BIDR #120 mL 05/19/24 nebulization spironolactone 25 mg tablet 12.5 mg (1/2 x 25 mg) PO DAILY #30 05/19/24 tabs diclofenac sodium 1 % topical gel 4 g EXT BID #100 grams 07/29/24 (Voltaren Arthritis Pain) enalapril maleate 5 mg tablet 2.5 mg (1/2 x 5 mg) PO DAILY #30 07/29/24 tabs guaifenesin 600 mg tablet, 1,200 mg (2 x 600 mg) PO Q12 #60 07/29/24 extended release 12 hr (Mucinex) tabs theophylline 400 mg 100 mg (1/4 x 400 mg) PO BID #60 07/29/24 tablet,extended release 24 hr tabs warfarin 10 mg tablet 10 mg PO MoWeFr@1600 #30 tabs 07/29/24 warfarin 5 mg tablet 15 mg (3 x 5 mg) PO SuTuThSa@1600 07/29/24 #30 tabs Results & Data (ED) Vital Signs Vital Signs - 24 hr 09/13/24 13:37 09/13/24 13:37 09/13/24 13:42 Temperature 36.8 C Temperature Source Oral Pulse Rate 77 60 Pulse Rate from SpO2 Sensor 62 Respiratory Rate 32 H 21 Respiratory Effort / Characteristics Labored Blood Pressure 127/72 Blood Pressure Mean 90 Blood Pressure Position Lying Pulse Oximetry 85 L 97 Oxygen Delivery Method Nasal Cannula Oxygen Flow Rate 3 Sepsis Recent Fever Within 48 Hours No Sepsis New/Unexplained Change in Mental Status No Sepsis Action Taken by Nursing No Action Required Oxygen Flow Rate - Titration Pulse Oximetry Post Tiitration 09/13/24 13:45 09/13/24 13:51 09/13/24 14:00 Temperature Temperature Source Pulse Rate 63 68 49 L Pulse Rate from SpO2 Sensor 70 51 L Respiratory Rate 15 Respiratory Effort / Characteristics Blood Pressure Blood Pressure Mean Blood Pressure Position Pulse Oximetry 96 100 Oxygen Delivery Method Oxygen Flow Rate Sepsis Recent Fever Within 48 Hours Sepsis New/Unexplained Change in Mental Status Sepsis Action Taken by Nursing Oxygen Flow Rate - Titration Pulse Oximetry Post Tiitration 09/13/24 14:18 09/13/24 14:30 09/13/24 14:33 Temperature Temperature Source Pulse Rate 57 L 68 Pulse Rate from SpO2 Sensor 58 L 61 Respiratory Rate 18 Respiratory Effort / Characteristics Blood Pressure Blood Pressure Mean Blood Pressure Position Pulse Oximetry 99 86 L 100 Oxygen Delivery Method Nasal Cannula Oxygen Flow Rate 3 Sepsis Recent Fever Within 48 Hours Sepsis New/Unexplained Change in Mental Status Sepsis Action Taken by Nursing Oxygen Flow Rate - Titration 6 Pulse Oximetry Post Tiitration 100 09/13/24 14:57 09/13/24 15:03 09/13/24 15:18 Temperature Temperature Source Pulse Rate 63 59 L 63 Pulse Rate from SpO2 Sensor 62 60 62 Respiratory Rate 24 Respiratory Effort / Characteristics Blood Pressure Blood Pressure Mean Blood Pressure Position Pulse Oximetry 97 97 99 Oxygen Delivery Method Oxygen Flow Rate Sepsis Recent Fever Within 48 Hours Sepsis New/Unexplained Change in Mental Status Sepsis Action Taken by Nursing Oxygen Flow Rate - Titration Pulse Oximetry Post Tiitration 09/13/24 15:33 09/13/24 15:37 09/13/24 15:45 Temperature Temperature Source Pulse Rate 52 L 64 Pulse Rate from SpO2 Sensor 55 L 64 Respiratory Rate 16 23 Respiratory Effort / Characteristics Blood Pressure Blood Pressure Mean Blood Pressure Position Pulse Oximetry 98 99 Oxygen Delivery Method Room Air Oxygen Flow Rate Sepsis Recent Fever Within 48 Hours Sepsis New/Unexplained Change in Mental Status Sepsis Action Taken by Nursing Oxygen Flow Rate - Titration Pulse Oximetry Post Tiitration 09/13/24 15:51 09/13/24 16:15 Temperature Temperature Source Pulse Rate 62 104 H Pulse Rate from SpO2 Sensor 61 Respiratory Rate 12 Respiratory Effort / Characteristics Blood Pressure Blood Pressure Mean Blood Pressure Position Pulse Oximetry 98 Oxygen Delivery Method Oxygen Flow Rate Sepsis Recent Fever Within 48 Hours Sepsis New/Unexplained Change in Mental Status Sepsis Action Taken by Nursing Oxygen Flow Rate - Titration Pulse Oximetry Post Tiitration Laboratory Data 09/13/24 13:50 09/13/24 13:50 Lab Results 09/13/24 09/13/24 09/13/24 Range/Units 13:42 13:50 14:37 WBC 8.18 (4.8-10.8) K/ul RBC 3.47 L (4.70-6.10) M/uL Hgb 9.4 L (14.0-18.0) g/dl Hct 31.6 L (42.0-52.0) % MCV 91.1 (80.0-100.0) fL MCH 27.1 (25.0-34.0) pg MCHC 29.7 L (32.0-36.0) g/dL RDW Std Deviation 54.4 H (36.4-46.3) fL RDW Coeff of Dhaval 16.1 H (11.5-14.5) % Plt Count 245 (130-400) K/uL MPV 9.4 (9.4-12.4) fL Immature Gran % (Auto) 0.5 % Neut % (Auto) 82.2 % Lymph % (Auto) 6.6 % [place] % (Auto) 7.7 % Eos % (Auto) 2.1 % Baso % (Auto) 0.9 % Neut # (Auto) 6.73 H (1.40-6.50) K/uL Lymph # (Auto) 0.54 L (1.20-3.40) K/uL [place] # (Auto) 0.63 H (0.11-0.59) K/uL Eos # (Auto) 0.17 (0.00-0.50) K/uL Baso # (Auto) 0.07 (0.00-0.20) K/uL Immature Gran # (Auto) 0.04 (0.01-0.20) K/uL PT 32.5 H (9.0-12.0) Seconds INR 3.3 H (0.9-1.1) Sodium 138 (136-145) mmol/L Potassium 4.3 (3.5-5.1) mmol/L Chloride 92 L (98-107) mmol/L Carbon Dioxide 40 H (21-32) mmol/L Anion Gap 6 (3-11) BUN 44 H (6-23) mg/dl Creatinine 1.01 (0.6-1.4) mg/dl Est Cr Clr Drug Dosing 107.0 ml/min eGFR 81.01 BUN/Creatinine Ratio 43.6 H (10-20) Glucose 125 H (70-99(Fasting)) mg/dl Calcium 9.4 (8.6-10.3) mg/dl Total Bilirubin 0.5 (0.2-1.0) mg/dl AST 26 (13-39) U/L ALT 17 (7-52) U/L Alkaline Phosphatase 93 (34-104) U/L Total Protein 6.9 (6.0-8.3) gm/dl Albumin 3.9 (3.4-5.0) gm/dl Globulin 3.0 (2.5-4.0) gm/dl Albumin/Globulin Ratio 1.3 (0.9-2) Urine Color Yellow Urine Appearance Clear (Clear) Urine pH 5.5 (4.5-7.5) Ur Specific [place] 1.011 (1.000-1.030) Urine Protein Negative (Negative) Urine Glucose (UA) 2+ H (Negative) Urine Ketones Negative (Negative) Urine Blood Negative (Negative) Urine Nitrite Negative (Negative) Urine Bilirubin Negative (Negative) Urine Urobilinogen Negative (Negative) Ur Leukocyte Esterase Negative (Negative) Adenovirus (PCR) Not Detected (NotDetected) B. pertussis DNA (PCR) Not Detected (NotDetected) B.parapertussis DNA PCR Not Detected (NotDetected) C. pneumoniae DNA (PCR) Not Detected (NotDetected) Coronavirus OC43 (PCR) Not Detected (NotDetected) Coronavirus HKU1 (PCR) Not Detected (NotDetected) Coronavirus 229E (PCR) Not Detected (NotDetected) SARS-CoV-2 (PCR) Not Detected (NotDetected) Coronavirus NL63 (PCR) Not Detected (NotDetected) Human Metapneumovir PCR Not Detected (NotDetected) Influenza Type A (PCR) Not Detected (NotDetected) Influenza Type B (PCR) Not Detected (NotDetected) M. pneumoniae (PCR) Not Detected (NotDetected) Parainfluenza 1 (PCR) Not Detected (NotDetected) Parainfluenza 2 (PCR) Not Detected (NotDetected) Parainfluenza 3 (PCR) Not Detected (NotDetected) Parainfluenza 4 (PCR) Not Detected (NotDetected) RSV (PCR) Not Detected (NotDetected) Entero/Rhino (PCR) Not Detected (NotDetected) Administered Medications Albuterol (Albut/Ipratrop 3mg/0.5mg Neb 3 Ml Vial) 3 ml INH Q6R OMAYRA; Protocol Stop: 10/13/24 18:59 Last Admin: 09/13/24 19:13 Dose: 3 ml Documented By: RAISSA Furosemide (Furosemide 40 Mg/4 Ml Vial) 40 mg IV BID17 OMAYRA Stop: 10/13/24 18:11 Last Admin: 09/13/24 19:01 Dose: 40 mg Documented By: SUAD Insulin Aspart (Insulin Aspart Per Unit Charge) 0 units SC ACHS OMAYRA Stop: 10/13/24 18:29 Last Admin: 09/13/24 19:09 Dose: Not Given Documented By: SUAD Sodium Chloride (Sodium Chlor 7% 4 Ml Neb) 4 ml NEB BIDR OMAYRA Stop: 10/13/24 18:59 Last Admin: 09/13/24 19:13 Dose: 4 ml Documented By: RAISSA Discontinued Medications Furosemide (Furosemide 40 Mg/4 Ml Vial) 40 mg IV ONE ONE Stop: 09/13/24 14:50 Last Admin: 09/13/24 15:42 Dose: 40 mg Documented By: BELLA Imaging Data Radiologist's Impression: Chest X-Ray 09/13/24 13:36 EXAM: Radiograph of the Chest 1 View INDICATION: Dyspnea. TECHNIQUE: Frontal view of the chest. COMPARISON: No relevant prior studies available. FINDINGS: Lungs and pleural spaces: Increased interstitial markings noted slightly greater on the right. The lungs are hyperinflated. Developing consolidation in the right lung base not excluded. No visible pleural effusion. No pneumothorax. Heart: Shape and configuration within normal limits allowing for technique. Mediastinum: Normal contour. Bones/joints: Degenerative spine and left shoulder. C anterior dislocation of the right shoulder noted and may be chronic. No acute osseous abnormality. Soft tissues: No abnormality noted. No radiopaque foreign body noted. Upper abdomen: No abnormality noted. IMPRESSION: 1. Increased interstitial changes may be chronic. Component of vascular congestion not excluded. 2. Developing right basilar pneumonia not excluded. 3. Age-indeterminate dislocation right shoulder may be chronic. No acute osseous abnormality. ACT 112: Negative or not required by law. Electronically signed by Michelle Houston 09-13-2024 3:05 PM Discharge Plan Visit Data Chief Complaint: Shortness of Breath/Dyspnea ED Provider: Bessy Stewart Discharge Problem: Acute on chronic congestive heart failure, Acute respiratory failure with hypoxia and hypercarbia Patient Disposition: Admitted As Inpatient Discharge Instructions Interventions: ED Discharge Assessment Last Done: 09/13/24 17:32
--- NOTE | 2024-09-13 16:32 | History & Physical Report ---
Date of Service September 13, 2024 Assessment & Plan (1) Acute on chronic heart failure with preserved ejection fraction: (2) Acute on chronic respiratory failure with hypoxia and hypercapnia: (3) Pulmonary hypertension: (4) Obesity hypoventilation syndrome: (5) Chronic a-fib: (6) DM II (diabetes mellitus, type II), controlled: (7) Anticoagulant long-term use: (8) O2 dependent: Plan: 3 L baseline at home (9) COPD (chronic obstructive pulmonary disease): (10) Morbid obesity: Plan Patient with acute on chronic heart failure preserved ejection fraction and acute hypoxia on chronic respiratory failure due to pulmonary hypertension, obesity hypoventilatory syndrome. Patient requires hospital level care due to worsening hypoxia despite home oxygen use due to volume overload. He will need IV medications and monitoring of laboratory studies Care for in a monitored unit Continue IV Lasix 2 times daily Monitor electrolytes Continue home BiPAP Continue other home medications and inhalers and nebulizers as ordered Therapies Care management Titrate oxygen down to home flow Continue to monitor INR and dose warfarin appropriately Monitor glucose and cover with insulin as required History of Present Illness Chief Complaint: Shortness of breath, increased leg swelling, hypoxia Primary Care Provider: Charley Crane MD Patient is a 69-year-old gentleman morbidly obese on chronic oxygen therapy and known severe pulmonary hypertension and heart failure preserved ejection fraction. Recently discharged from the hospital for decompensated heart failure and has been at home since then. Comes to the emergency room with complaints as noted above. Evaluation in the emergency room was consistent with decompensated heart failure with severe edema and congestion on chest x-ray. Referred to our service for further evaluation. Time my evaluation patient's already put out over a liter of fluid with 40 of Lasix. Barron catheter is in place. He reports that he has been compliant with his medications. He states he has been attempting to be compliant with fluid and salt restriction. He does state he is being eating a lot of sweets. When asked if he is notices been gaining weight he does admit to weighing himself regularly and states that he has maybe gained 25 pounds since he left the hospital. This is accurate based on our weights recorded at the time of discharge and today. He states that he thought he was just gaining weight because all the extra food he was eating. He did not really think it was due to water weight. He had did not contact his medical providers. Denies any fever or chills. He has chronic inhalers and wheezing. He states home nursing has been checking in on him. He said a week or 2 ago the entire family had upper respiratory infection symptoms. He was treated with prednisone and a Z-Juan. His shortness of breath got a little bit better but it continued to progress over the last week or 2. No new problems with his bowels or bladder. No chest pain or palpitations. Allergies Allergy/AdvReac Type Severity Reaction Status Date / Time No Known Allergies Allergy Verified 09/13/24 15:45 Home Medications Medication Instructions Recorded Confirmed Type empagliflozin 10 mg tablet 10 mg PO QAM 06/10/23 09/13/24 History fluticasone fur. 100 mcg-umeclid 1 inh inhalation DAILY 06/10/23 09/13/24 History 62.5 mcg-vilant 25 mcg inhalat.powder (Trelegy Ellipta) rljzmasi-su-csyzs 300 mcg-K 60 1 tab PO DAILY 06/10/23 09/13/24 History mcg-lycop 600 mcg-lutein 300 mcg tablet (Centrum Silver Men) pantoprazole 40 mg tablet,delayed 40 mg PO DAILY 06/10/23 09/13/24 History release carvedilol 3.125 mg tablet 3.125 mg PO BIDM #60 tabs 06/17/23 09/13/24 Rx albuterol sulfate 90 mcg/actuation 2 puff inhalation Q6H PRN 05/12/24 09/13/24 History aerosol inhaler Shortness Of Breath Or Wheezing atorvastatin 80 mg tablet 80 mg PO QAM 05/12/24 09/13/24 History fluticasone propionate 50 2 spray intranasal DAILY 05/12/24 09/13/24 History mcg/actuation nasal spray,suspension ipratropium 0.5 mg-albuterol 3 mg 3 ml inhalation Q6H Shortness Of 05/19/24 09/13/24 Rx (2.5 mg base)/3 mL nebulization Breath #0 mL soln sodium chloride 7 % for 4 ml NEB BIDR #120 mL 05/19/24 09/13/24 Rx nebulization spironolactone 25 mg tablet 12.5 mg (1/2 x 25 mg) PO DAILY #30 05/19/24 09/13/24 Rx tabs montelukast 10 mg tablet 10 mg PO QAM 07/20/24 09/13/24 History diclofenac sodium 1 % topical gel 4 g EXT BID #100 grams 07/29/24 09/13/24 Rx (Voltaren Arthritis Pain) enalapril maleate 5 mg tablet 2.5 mg (1/2 x 5 mg) PO DAILY #30 07/29/24 09/13/24 Rx tabs guaifenesin 600 mg tablet, 1,200 mg (2 x 600 mg) PO Q12 #60 07/29/24 09/13/24 Rx extended release 12 hr (Mucinex) tabs theophylline 400 mg 100 mg (1/4 x 400 mg) PO BID #60 07/29/24 09/13/24 Rx tablet,extended release 24 hr tabs warfarin 10 mg tablet 10 mg PO MoWeFr@1600 #30 tabs 07/29/24 09/13/24 Rx warfarin 5 mg tablet 15 mg (3 x 5 mg) PO SuTuThSa@1600 07/29/24 09/13/24 Rx #30 tabs Past Med/Surg History Problem List (Updated 09/13/24 @ 16:28 by Yfn Landis DO) Morbid obesity Acute on chronic respiratory failure with hypoxia and hypercapnia Bradycardia Hypotension Hyperkalemia Bilateral cellulitis of lower leg Hypoxia (Acute) Abnormal CT scan, chest Obesity hypoventilation syndrome Acute on chronic heart failure with preserved ejection fraction Congestive heart failure (Acute) Acute respiratory failure with hypoxia and hypercarbia (Acute) Acute on chronic congestive heart failure O2 dependent (Acute) Anticoagulant long-term use Chronic a-fib DM II (diabetes mellitus, type II), controlled Chronic respiratory failure with hypoxia COPD (chronic obstructive pulmonary disease) (Acute) Medical History Pulmonary hypertension Hx of smoking Chronic congestive heart failure Hx of deep venous thrombosis Surgical History No pertinent past surgical history Family History Other Diabetes Social History Smoking Status: Never smoker Tobacco Type: Cigarettes Second Hand Exposure: Yes; Do You Dip or Chew Tobacco: No; Hx Alcohol Use: No Hx Substance Use: No Preferred Language: Luxembourgish Communication Ability: Effective Medical Parasitologist Required: No Beliefs That Will Affect Care: None Current Living Situation: Family Current Living Situation Comment: Lives with Sandeep (son) and Maira Coronado (dtr in law) Feels Safe at Home: Yes Assistive Devices: BiPap and Oxygen - Continuous Review of Systems Review of Systems: Pertinent positive and negative review of systems as mentioned in the HPI Physical Exam Physical Exam: Constitutional: Alert, ill in appearance, nontoxic, mild respiratory distress HEENT: Mucous membranes moist. Sclera clear Neck: Soft, no adenopathy Lungs: Decreased breath sounds, prolonged expiratory phase, few expiratory wheezes, Rales at bases CV: S1-S2, irregular Abdomen: Nontender, nondistended, no guarding, no rigidity, edema and abdominal pannus Extremities: Thick hard edema in the lower extremities, edema in upper thighs and dependent portions of sacrum and abdomen. Lower extremities ruborous due to edema Musculoskeletal: No significant joint tenderness Neuro: No focal deficits Psych: Cooperative, normal mood Results & Data Results & Data Vital Signs (Past 12 Hours) Vital Signs Temp Pulse Resp BP Pulse Ox O2 Del Method O2 Flow Rate 09/13/24 15:37 Room Air 09/13/24 14:30 86 L Nasal Cannula 3 09/13/24 13:45 63 09/13/24 13:37 36.8 C 77 32 H 127/72 85 L Nasal Cannula 3 Diagnostic Findings Reviewed imaging, laboratory and diagnostic studies. Pertinent findings as below. Personally reviewed chest x-ray consistent with volume overload, pulmonary congestion Personally reviewed EKG, atrial fibrillation with slow ventricular response Hemoglobin 9.4, baseline Potassium 4.3 Bicarb 40, essentially his baseline Creatinine 1.0 Glucose 125 LFTs within normal limits Urinalysis unremarkable for infection Respiratory viral panel negative Reviewed recent hemoglobin A1c 6.3% Reviewed recent echocardiogram from June 2024, ejection fraction 60 to 65% pulmonary pressure 57 mmHg, dilated right ventricle
[2024-09-13 16:35] LABS: INR 3.3 (0.9-1.1); Prothrombin Time 32.5 Seconds (9.0-12.0)
[2024-09-13] MEDS ORDERED: CARBOHYDRATES FOR HYPOGLYCEMIA PO PRN (18:12)
[2024-09-13] MEDS ORDERED: DEXTROSE 50% 50 ML SYRINGE IV PRN (18:12)
[2024-09-13] MEDS ORDERED: ALUMINUM/MAGNESIUM SUSP 30 ML UDC PO PRN (18:12)
[2024-09-13] MEDS ORDERED: GLUCAGON FOR INJ 1 MG VIAL SQ PRN (18:12)
[2024-09-13] MEDS ORDERED: GLUCOSE 10 TAB/TUBE PO PRN (18:12)
[2024-09-13] MEDS ORDERED: ALBUTEROL HFA 8 GM INHALER INH PRN (18:12)
[2024-09-13] MEDS ORDERED: ONDANSETRON INJ 2 MG/ML 2 ML VIAL IV PRN (18:12)
[2024-09-13] MEDS ORDERED: GLUCOSE 40% GEL 15 GM TUBE PO PRN (18:12)
[2024-09-13] MEDS: FUROSEMIDE 40 MG/4 ML VIAL IV SCH (19:01)
[2024-09-13] MEDS: INSULIN ASPART PER UNIT CHARGE SC SCH (19:09)
[2024-09-13] MEDS: ALBUT/IPRATROP 3MG/0.5MG NEB 3 ML VIAL INH SCH (19:13)
[2024-09-13] MEDS: SODIUM CHLOR 7% 4 ML NEB NEB SCH (19:13)
[2024-09-13] MEDS: guaiFENesin 600 MG TABCR PO SCH (19:52)
[2024-09-13] MEDS: carvediloL 3.125 MG TAB PO SCH (19:52)
[2024-09-13] MEDS: THEOPHYLLINE 400 MG EXTENDED REL TAB PO SCH (19:52)
[2024-09-14] MEDS: DICLOFENAC SOD 1% GEL 100 GM TUBE EXT PRN (01:46)
[2024-09-14] MEDS: ACETAMINOPHEN 325 MG TAB PO PRN (01:48)
[2024-09-14] MEDS: SPIRONOLACTONE 12.5 MG TAB PO SCH (07:46)
[2024-09-14] MEDS: MONTELUKAST SODIUM 10 MG TABLET PO SCH (07:46)
[2024-09-14] MEDS: CEROVITE ADV FORMULA TAB PO SCH (07:46)
[2024-09-14] MEDS: ATORVASTATIN 40 MG TAB PO SCH (07:46)
[2024-09-14] MEDS: PANTOprazole 40 MG TAB PO SCH (07:46)
[2024-09-14] MEDS: POTASSIUM CHLORIDE CRTAB 20 MEQ TABCR PO SCH (07:46)
[2024-09-14] MEDS: EMPAGLIFLOZIN 10 MG TAB PO SCH (07:46)
[2024-09-14] MEDS: FLUTICASONE FUROATE 100MCG 14 PUFFS/INHALER INH SCH (07:46)
[2024-09-14] MEDS: UMECLIDINIUM/VILANTEROL 62.5/25MCG 7 PUFFS/INHALER INH SCH (07:47)
[2024-09-14 09:02] LABS: Calcium 9.6 mg/dl (8.6-10.3); Creatinine Clr Calc Pharmacy 116.5 ml/min; Potassium 4.1 mmol/L (3.5-5.1)
[2024-09-14 09:54] LABS: INR 2.9 (0.9-1.1); Prothrombin Time 28.8 Seconds (9.0-12.0)
--- NOTE | 2024-09-14 11:25 | Hospitalist Progress Note ---
Date of Service September 14, 2024 Assessment & Plan (1) Acute on chronic heart failure with preserved ejection fraction: (2) Acute on chronic respiratory failure with hypoxia and hypercapnia: (3) Metabolic alkalosis with respiratory acidosis: (4) Pulmonary hypertension: (5) Obesity hypoventilation syndrome: (6) Chronic a-fib: (7) DM II (diabetes mellitus, type II), controlled: (8) Anticoagulant long-term use: (9) O2 dependent: Plan: 3 L baseline at home (10) COPD (chronic obstructive pulmonary disease): (11) Morbid obesity: Plan Patient with acute on chronic heart failure preserved ejection fraction suspect due to noncompliance with fluid restriction. Patient now with some contraction alkalosis with his chronic metabolic alkalosis in response to his chronic respiratory acidosis. Hold IV Lasix, continue diuresis with IV Diamox Monitor electrolytes and acid-base status Continue with daily CHF education about salt and fluid restriction Maintain Barron catheter while doing aggressive diuresis Continue to monitor daily weights and intake and output Continue BiPAP as at home Anticipate patient will need another 2 to 3 days of diuresis. Case management involved to help with outpatient CHF monitoring upon discharge Admission and Anticipated Discharge Date Admission Date: September 13, 2024 Subjective Patient reports feeling better, breathing easier. Already noticed less swelling Physical Exam Physical Exam: Constitutional: Alert, sitting in chair HEENT: Mucous membranes moist. Lungs: Decreased breath sounds, prolonged expiratory phase, rales at bases CV: S1-S2, regular Abdomen: Soft, obese, nontender, edema and abdominal pannus Extremities: Lower extremities less edematous but still hard with edema and ruborous. Edema in posterior thighs and sacrum Neuro: No focal deficits, generalized weakness Psych: Cooperative, normal mood Results & Data Results & Data Vital Signs (Past 12 Hours) Vital Signs Temp Pulse Pulse Resp BP BP Pulse Ox 09/14/24 08:15 36.8 C 55 L 16 113/80 98 09/14/24 07:24 09/14/24 07:20 51 L 09/14/24 07:20 62 22 96 09/14/24 03:00 36.8 C 55 L 22 124/79 95 09/14/24 02:08 51 L 28 H 98 09/14/24 00:12 61 18 96 09/14/24 00:00 37.3 C 64 24 123/59 L 96 O2 Del Method O2 Flow Rate FiO2 09/14/24 08:15 Room Air 09/14/24 07:24 Nasal Cannula 5 09/14/24 07:20 09/14/24 07:20 Nasal Cannula 4 09/14/24 03:00 CPAP 09/14/24 02:08 5 09/14/24 00:12 Nasal Cannula 5 09/14/24 00:00 CPAP Diagnostic Findings Reviewed imaging, laboratory and diagnostic studies. Pertinent findings as below. Hemoglobin 9.4 Platelet 245 INR 2.9 Sodium 143 Potassium 4.1 Bicarb 43 Creatinine 0.91
[2024-09-14] MEDS: acetaZOLAMIDE 250 MG in SYRINGE 0 ML IV SCH (14:21)
[2024-09-14] MEDS: WARFARIN SOD 10 MG TAB PO SCH (16:02)
--- NOTE | 2024-09-14 21:18 | Electrocardiogram Report ---
Test Reason : Blood Pressure : */* mmHG Vent. Rate : 56 BPM Atrial Rate : * BPM P-R Int : * ms QRS Dur : 102 ms QT Int : 430 ms P-R-T Axes : * 34 38 degrees QTcB Int : 414 ms Atrial fibrillation with slow ventricular response Low voltage QRS Abnormal ECG When compared with ECG of 20-Jul-2024 14:25, Criteria for Septal infarct are no longer Present QT has lengthened Confirmed by Janak Springer ([id number]) on 09/14/2024 9:18:12 PM Referred By: Confirmed By: Janak Springer
[2024-09-15 07:36] LABS: Basophils # (auto) 0.08 K/uL (0.00-0.20); Basophils % (auto) 1.1 %; Eosinophils # (auto) 0.23 K/uL (0.00-0.50); Eosinophils % (auto) 3.1 %; Hematocrit (blood only) 30.7 % (42.0-52.0); Immature Granulocytes # (auto) 0.03 K/uL (0.01-0.20); Immature Granulocytes % (auto) 0.4 %; Lymphocytes # (auto) 0.92 K/uL (1.20-3.40); Lymphocytes % (auto) 12.2 %; Mean Corpuscular Hemoglobin 26.6 pg (25.0-34.0); Mean Corpuscular Hgb Conc 29.3 g/dL (32.0-36.0); Mean Corpuscular Volume 90.8 fL (80.0-100.0); Mean Platelet Volume 9.7 fL (9.4-12.4); Monocytes # (auto) 0.78 K/uL (0.11-0.59); Monocytes % (auto) 10.4 %; Neutrophils # (auto) 5.49 K/uL (1.40-6.50); Neutrophils % (auto) 72.8 %; Platelet Count 258 K/uL (130-400); RDW Coefficient of Variation 15.7 % (11.5-14.5); RDW Standard Deviation 52.3 fL (36.4-46.3); Red Blood Count 3.38 M/uL (4.70-6.10); White Blood Count 7.53 K/ul (4.8-10.8)
[2024-09-15 08:00] LABS: INR 2.6 (0.9-1.1); Prothrombin Time 26.3 Seconds (9.0-12.0)
[2024-09-15 08:02] LABS: BUN Creatinine Ratio 45.2 (10-20); Calcium 9.4 mg/dl (8.6-10.3); Creatinine Clr Calc Pharmacy 114.2 ml/min; Magnesium 2.2 mg/dl (1.7-2.4); Potassium 3.5 mmol/L (3.5-5.1)
[2024-09-15] MEDS: acetaZOLAMIDE 500 MG in SYRINGE 0 ML IV ONE (09:04)
--- NOTE | 2024-09-15 12:16 | Hospitalist Progress Note ---
Date of Service September 15, 2024 Assessment & Plan (1) Acute on chronic heart failure with preserved ejection fraction: (2) Acute on chronic respiratory failure with hypoxia and hypercapnia: (3) Metabolic alkalosis with respiratory acidosis: (4) Pulmonary hypertension: (5) Obesity hypoventilation syndrome: (6) Chronic a-fib: (7) DM II (diabetes mellitus, type II), controlled: (8) Anticoagulant long-term use: (9) O2 dependent: Plan: 3 L baseline at home (10) COPD (chronic obstructive pulmonary disease): (11) Morbid obesity: Plan Patient with decompensated heart failure preserved ejection fraction, responding to diuresis. Give additional Diamox this morning, then resume Lasix Continue to monitor carbon dioxide Continue to monitor intake and output and weight Monitor electrolytes and renal function, oral potassium the day Therapies, reviewed notes, may need rehab before returning home Patient very aware of the chronicity of his medical conditions and the progression over time. Understands that none of his issues are curable but we are attempting to manage his medical conditions. He recognizes that with time it will get more more difficult to manage and balance all of his issues. How ever, patient has no interest in considering hospice or palliative interventions at this time. Admission and Anticipated Discharge Date Admission Date: September 13, 2024 Subjective Patient states he feels his legs are getting a little less tense and swollen. No chest pain Physical Exam Physical Exam: Constitutional: Alert, morbidly obese, sitting in chair HEENT: Mucous membranes moist. Lungs: Decreased breath sounds, prolonged expiratory phase, crackles at bases CV: S1-S2, regular Abdomen: Soft, nontender,, abdominal pannus edema decreasing Extremities: Lower extremity edema not nearly as hard, skin a little looser, edema posterior thighs and sacrum decreasing, redness of lower extremity significantly improved Neuro: No focal deficits Psych: Cooperative, normal mood Results & Data Results & Data Vital Signs (Past 12 Hours) Vital Signs Temp Pulse Pulse Resp BP Pulse Ox O2 Del Method 09/15/24 11:39 36.8 C 72 18 143/84 H 97 Nasal Cannula 09/15/24 08:08 Nasal Cannula 09/15/24 07:39 36.7 C 60 18 158/65 H 97 CPAP 09/15/24 07:30 64 17 98 Nasal Cannula 09/15/24 07:22 61 09/15/24 04:25 54 L 20 96 11/19/24 03:56 36.8 C 59 L 18 125/64 94 CPAP 09/15/24 01:03 54 L 20 94 BiPAP O2 Flow Rate 09/15/24 11:39 4 09/15/24 08:08 4 09/15/24 07:39 09/15/24 07:30 4 09/15/24 07:22 09/15/24 04:25 5 09/15/24 03:56 09/15/24 01:03 Diagnostic Findings Reviewed imaging, laboratory and diagnostic studies. Pertinent findings as below. CBC stable, hemoglobin 9.0 essentially at baseline INR 2.6, therapeutic Potassium 3.5 Carbon dioxide 40, baseline Creatinine 0.93 Magnesium 2.2 Reviewed intake and output, negative proximately 2.5 L, Weight 149 kg, decreased
[2024-09-15] MEDS: POTASSIUM CHLORIDE CRTAB 20 MEQ TABCR PO STA (13:06)
[2024-09-15] MEDS: WARFARIN SOD 7.5 MG TAB PO SCH (17:54)
[2024-09-16 08:42] LABS: BUN Creatinine Ratio 40.2 (10-20); Calcium 9.4 mg/dl (8.6-10.3); Creatinine Clr Calc Pharmacy 108.7 ml/min; Potassium 4.1 mmol/L (3.5-5.1)
--- NOTE | 2024-09-16 08:43 | XRay Report ---
XR chest 1V portable HISTORY: 69 years-old Male sob acute shortness of breath COMPARISON: 09/13/2024 TECHNIQUE: AP view of the chest FINDINGS: Cardiomegaly. Pulmonary vascular congestion with interstitial coarsening. No pneumothorax. Small pleu ral effusions suggested with mild bibasilar consolidation. Findings are generally unchanged from prio r. IMPRESSION: 1. Cardiomegaly with interstitial pulmonary edema. 2. Unchanged small pleural effusions with bibasilar opacities. ACT 112: Negative or not required by law. The above report was generated using voice recognition software. It may contain grammatical, syntax o r spelling errors. Electronically signed by: Josiah Sanchez M.D. 09/16/2024 8:41 AM
[2024-09-16 08:46] LABS: INR 2.7 (0.9-1.1); Prothrombin Time 26.5 Seconds (9.0-12.0)
[2024-09-16 09:17] LABS: Base Excess ABG 5.6 mEq/L (-9-1.8); HCO3 ABG 34 mmol/L (19-24); PCO2 ABG 68 mmHg (35-46); PO2 ABG 77 mmHg (80-95); pH ABG 7.31 (7.35-7.45)
[2024-09-16 09:25] LABS: Allen Test Pos (Pos)
[2024-09-16] MEDS: FUROSEMIDE 40 MG/4 ML VIAL IV ONE (11:08)
[2024-09-16] MEDS ORDERED: methylPREDNISolone 125 MG/2 ML VIAL IV STA (13:54)
--- NOTE | 2024-09-16 14:05 | Hospitalist Progress Note ---
Date of Service September 16, 2024 Assessment & Plan (1) Acute on chronic heart failure with preserved ejection fraction: (2) Acute on chronic respiratory failure with hypoxia and hypercapnia: (3) Metabolic alkalosis with respiratory acidosis: (4) Pulmonary hypertension: (5) Obesity hypoventilation syndrome: (6) Chronic a-fib: (7) DM II (diabetes mellitus, type II), controlled: (8) Anticoagulant long-term use: (9) O2 dependent: Plan: 3 L baseline at home (10) COPD (chronic obstructive pulmonary disease): (11) Morbid obesity: (12) Acute exacerbation of chronic obstructive pulmonary disease (COPD): Plan Patient remains significantly ill, has been diuresing well and responding to treatment for volume overload and heart failure, however this morning suspect patient now has COPD exacerbation with decreased airflow. Patient's hypercarbia decompensated slightly Solu-Medrol 125 mg x 1 now Continue oral prednisone tomorrow BiPAP during the day as well as at night Add albuterol nebulizer treatment to his scheduled DuoNebs Continue diuresis with Lasix Monitor ABG and BMP Continue other medications as ordered Continue warfarin dosing, INR stable Glucose reviewed, continue insulin coverage, anticipate glucose increasing with steroids Attempted to update jeff Rao, helena answer Admission and Anticipated Discharge Date Admission Date: September 13, 2024 Subjective Patient more short of breath and feeling unwell today. States harder for him to breathe when he is laying down. Does not seem quite as alert. Physical Exam Physical Exam: Constitutional: Drowsy, morbidly obese, moderate distress HEENT: Mucous membranes moist. Lungs: More decreased breath sounds with poor airflow, no definitive wheezes, rales at bases CV: S1-S2, regular Abdomen: Soft, nontender, nondistended, continued edema and abdominal pannus, decreasing Extremities: Decreased edema lower extremities and posterior thighs Neuro: No focal deficits, generalized weakness Psych: Drowsy Results & Data Results & Data Vital Signs (Past 12 Hours) Vital Signs Temp Pulse Pulse Resp BP BP Pulse Ox 09/16/24 11:34 36.8 C 63 20 158/79 H 98 09/16/24 07:59 09/16/24 07:47 66 16 94 09/16/24 07:37 37.0 C 65 125/73 91 09/16/24 03:50 36.8 C 63 18 122/70 95 09/16/24 03:30 53 L 18 93 O2 Del Method O2 Flow Rate 09/16/24 11:34 Nasal Cannula 5 09/16/24 07:59 Nasal Cannula 4 09/16/24 07:47 CPAP 5 09/16/24 07:37 Room Air 09/16/24 03:50 CPAP 2 09/16/24 03:30 5 Diagnostic Findings Reviewed imaging, laboratory and diagnostic studies. Pertinent findings as below. Stat chest x-ray reviewed personally, increased congestion ABG reviewed, pH 7.31/pCO2 68/pO2 77/HCO3 34 BMP reviewed, carbon dioxide 33, lower than his baseline INR 2.7 Output -2.1 L Weight 147 kg, decreased
[2024-09-16] MEDS: methylPREDNISolone 125 MG in SYRINGE 0 ML IV STA (15:39)
[2024-09-16] MEDS: FLUTICASONE PROPIONATE NA SPR 16 GM BTL SCH (15:39)
[2024-09-17 00:47] LABS: Base Excess VBG 10.5 mEq/L; HCO3 VBG 39 mmol/L; Oxygen Saturation VBG 88.2 %; PCO2 VBG 73 mmHg (38-50); PO2 VBG 54 mmHg; pH VBG 7.34 (7.36-7.41)
--- NOTE | 2024-09-17 02:25 | CT Scan Report ---
EXAM: CT head/brain wo con CLINICAL HISTORY: ams TECHNIQUE: Multiple axial images are obtained from the skull base to the vertex without contrast. CT scan was performed according to ALARA (as low as reasonable achievable). COMPARISON: None. FINDINGS: There is cerebral atrophy. No evidence of space occupying lesion, hemorrhage, edema, mass effect, midline shift, extra axial collection, or hydrocephalus is noted. Basal cisterns are symmetric and normal in size and configuration. There are scattered periventricular hypodensities as can be seen with chronic microvascular ischemic changes. The coyne-white matter differentiation is preserved. Visualized paranasal sinuses and mastoid air cells are well aerated. Orbital contents are within normal limits. Bony structures are intact. IMPRESSION: 1. No evidence of acute intracranial abnormality is demonstrated. 2. Chronic microvascular ischemic changes. 3. Cerebral atrophy. Electronically signed by Lawrence Avitia 09-17-2024 02:25 AM
[2024-09-17 06:37] LABS: Hematocrit (blood only) 31.6 % (42.0-52.0); Hemoglobin 9.4 g/dl (14.0-18.0); Mean Corpuscular Hemoglobin 26.5 pg (25.0-34.0); Mean Corpuscular Hgb Conc 29.7 g/dL (32.0-36.0); Mean Platelet Volume 9.3 fL (9.4-12.4); Platelet Count 246 K/uL (130-400); RDW Coefficient of Variation 15.2 % (11.5-14.5); RDW Standard Deviation 50.4 fL (36.4-46.3); Red Blood Count 3.55 M/uL (4.70-6.10); White Blood Count 5.82 K/ul (4.8-10.8)
[2024-09-17 07:03] LABS: BUN Creatinine Ratio 48.6 (10-20); Calcium 9.2 mg/dl (8.6-10.3); Creatinine Clr Calc Pharmacy 97.5 ml/min; Magnesium 2.4 mg/dl (1.7-2.4); Potassium 4.4 mmol/L (3.5-5.1)
[2024-09-17 07:11] LABS: INR 2.9 (0.9-1.1); Prothrombin Time 28.2 Seconds (9.0-12.0)
[2024-09-17] MEDS: predniSONE 20 MG TAB PO SCH (08:15)
--- NOTE | 2024-09-17 15:05 | Hospitalist Progress Note ---
Date of Service September 17, 2024 Assessment & Plan (1) Acute on chronic heart failure with preserved ejection fraction: (2) Acute on chronic respiratory failure with hypoxia and hypercapnia: (3) Acute exacerbation of chronic obstructive pulmonary disease (COPD): (4) Metabolic alkalosis with respiratory acidosis: (5) Pulmonary hypertension: (6) Obesity hypoventilation syndrome: (7) Chronic a-fib: (8) DM II (diabetes mellitus, type II), controlled: (9) Anticoagulant long-term use: (10) O2 dependent: Plan: 3 L baseline at home (11) COPD (chronic obstructive pulmonary disease): (12) Morbid obesity: Plan Patient seems to be more at his baseline today, responded to diuresis Reviewed intake and output negative 2+ liters. Weight down 244.5 kg, dry weight approximately 136 kg Continue Lasix diuresis Continue to encourage activity and therapies Monitor electrolytes and renal function with aggressive diuresis Continue BiPAP at night for chronic hypoxic and hypercarbic respiratory failure, instructed patient he must wear BiPAP during the day if he is taking naps Suspect patient did have some exacerbation of COPD as well, continue oral prednisone and nebs as ordered. Continue to monitor glucose with coverage of insulin, expect glucose to be a bit higher in the setting of steroid use. Case management continuing to pursue ECF placement Admission and Anticipated Discharge Date Admission Date: September 13, 2024 Subjective Patient definitely improved when compared to yesterday. He reports still not feeling great but feels that his breathing is easier. Physical Exam Physical Exam: Constitutional: Alert, sitting in chair HEENT: Mucous membranes moist. Lungs: Decreased breath sounds, prolonged expiratory phase, slightly improved airflow compared to yesterday, no wheezes, rales at bases CV: S1-S2, regular Abdomen: Soft, decreasing edema and abdominal pannus Extremities: Decreasing edema in the lower extremities and posterior thighs Neuro: No focal deficits, global weakness Psych: Cooperative, normal mood Results & Data Results & Data Vital Signs (Past 12 Hours) Vital Signs Temp Pulse Pulse Resp BP BP Pulse Ox 09/17/24 13:11 64 20 98 09/17/24 12:04 36.4 C L 76 20 139/66 93 09/17/24 09:57 09/17/24 08:03 36.4 C L 53 L 20 119/65 91 09/17/24 07:43 56 L 22 97 09/17/24 07:10 39 L 09/17/24 03:35 66 25 H 93 O2 Del Method O2 Flow Rate 09/17/24 13:11 Nasal Cannula 4 09/17/24 12:04 Nasal Cannula 4 09/17/24 09:57 Nasal Cannula 4 09/17/24 08:03 CPAP 09/17/24 07:43 BiPAP 5 09/17/24 07:10 09/17/24 03:35 5 Diagnostic Findings Reviewed imaging, laboratory and diagnostic studies. Pertinent findings as below. Hemoglobin 9.4 stable INR 2.9, therapeutic Venous ABG reviewed Carbon oxide 38, closer to his baseline Creatinine 1.07 Glucoses reviewed
[2024-09-18 07:03] LABS: BUN Creatinine Ratio 57.5 (10-20); Calcium 9.1 mg/dl (8.6-10.3); Creatinine Clr Calc Pharmacy 99.8 ml/min; Potassium 3.9 mmol/L (3.5-5.1)
[2024-09-18 07:06] LABS: INR 3.7 (0.9-1.1); Prothrombin Time 36.1 Seconds (9.0-12.0)
[2024-09-18] MEDS: FUROSEMIDE 40 MG/4 ML VIAL IV SCH (09:43)
--- NOTE | 2024-09-18 17:45 | Hospitalist Progress Note ---
Date of Service September 18, 2024 Assessment & Plan (1) Acute on chronic heart failure with preserved ejection fraction: (2) Acute on chronic respiratory failure with hypoxia and hypercapnia: (3) Acute exacerbation of chronic obstructive pulmonary disease (COPD): (4) Pulmonary hypertension: (5) Obesity hypoventilation syndrome: (6) Chronic a-fib: (7) DM II (diabetes mellitus, type II), controlled: (8) Anticoagulant long-term use: (9) O2 dependent: Plan: 3 L baseline at home (10) COPD (chronic obstructive pulmonary disease): (11) Morbid obesity: Plan Mr. Méndez is a 69 year old with PMHx significant for chronic diastolic heart failure, A-fib/history DVT on Coumadin, valvular heart disease, hypertension, hyperlipidemia, chronic respiratory failure secondary to pulmonary hypertension, COPD, OHS on BiPAP, DM2, chronic anemia presenting from home with trouble breathing and found to be in acute on chronic HFpEF. #Acute on chronic respiratory failure with hypoxia and hypercarbia #Obesity hypoventilation syndrome #Acute COPD exacerbation On 3 L home oxygen No bnp this admission Chest x-ray concerning for fluid overload Continue home nebulized bronchodilators Continue with BiPAP with naps and qhs Prednisone for a 5-day course and continue nebs Clinically little better and would continue current management Continue diuersis as follows Continue montelukast #Acute on chronic heart failure with preserved EF #Severe pulm HTN ECHO 06/2024 60-65% presented with BLE edema, and elevated weight, dry weight approximately 136 kg Increased lasix to 60mg BID IV, monitor renal f/x continue Jardiance Monitor I's and O's, daily weights monitor for alkalosis Spironolactone 12.5mg daily history of ACEi intolerance 2/2 hypotension #Buttock skin changes POA Wound nurse consult Continue with the wound care, encourage mobilization #Atrial fibrillation with slow ventricular response #Hx of bradycardia EKG noting A-fib with slow ventricular response Coreg d/c previously 2/2 bradycardia patient currently supratherapeutically anticoagulated with warfarin, hold Coumadin continue theophylline for off label bradycardia Continue other home meds as ordered CODE STATUS: Full code per discussion with patient Diet: Heart healthy, DM2 with fluid restriction of 1500 mL Admission and Anticipated Discharge Date Admission Date: September 13, 2024 Subjective NAEO Reports subjective improvement in symptoms, noting reduction in swelling of legs States that he is moving the best he can and he understands his daughter wants him in rehab Physical Exam Constitutional: WD/WN, vitals as above Respiratory: no appreciated wheezing, diminshed 2/2 habitus, on baseline o2 Cardiovascular: RRR Musculoskeletal: thick nonpitting edema of BLE, pitting edema in posterior thigh Results & Data Results & Data Vital Signs (Past 12 Hours) Vital Signs Temp Pulse Pulse Resp BP Pulse Ox O2 Del Method 09/18/24 15:16 36.7 C 56 L 18 120/59 L 97 Nasal Cannula 09/18/24 15:04 56 L 09/18/24 13:10 63 24 94 Nasal Cannula 09/18/24 12:16 36.9 C 66 18 134/83 90 Nasal Cannula 09/18/24 09:08 Nasal Cannula 09/18/24 08:12 36.8 C 60 18 140/77 95 Nasal Cannula 09/18/24 07:32 63 09/18/24 07:25 72 20 92 Nasal Cannula O2 Flow Rate 09/18/24 15:16 4 09/18/24 15:04 09/18/24 13:10 4 09/18/24 12:16 4 09/18/24 09:08 4 09/18/24 08:12 4 09/18/24 07:32 09/18/24 07:25 3 Laboratory Results [facility] 09/18/24 06:16 Sodium 142 Potassium 3.9 Chloride 98 Carbon Dioxide 36 H BUN 61 H Creatinine 1.06 Glucose 129 H Calcium 9.1 Medications Administered Home Medications Medication Instructions Recorded Confirmed Last Taken empagliflozin 10 mg tablet 10 mg PO QAM 06/10/23 09/13/24 05/12/24 fluticasone fur. 100 mcg-umeclid 1 inh inhalation DAILY 06/10/23 09/13/24 05/12/24 62.5 mcg-vilant 25 mcg inhalat.powder (Trelegy Ellipta) [id number] 300 mcg-K 60 1 tab PO DAILY 06/10/23 09/13/24 09/13/24 mcg-lycop 600 mcg-lutein 300 mcg tablet (Centrum Silver Men) pantoprazole 40 mg tablet,delayed 40 mg PO DAILY 06/10/23 09/13/24 05/12/24 release carvedilol 3.125 mg tablet 3.125 mg PO BIDM #60 tabs 06/17/23 09/13/24 09/13/24 albuterol sulfate 90 mcg/actuation 2 puff inhalation Q6H PRN 05/12/24 09/13/24 Unknown aerosol inhaler Shortness Of Breath Or Wheezing atorvastatin 80 mg tablet 80 mg PO QAM 05/12/24 09/13/24 09/13/24 fluticasone propionate 50 2 spray intranasal DAILY 05/12/24 09/13/24 05/12/24 mcg/actuation nasal spray,suspension ipratropium 0.5 mg-albuterol 3 mg 3 ml inhalation Q6H Shortness Of 05/19/24 09/13/24 Unknown (2.5 mg base)/3 mL nebulization Breath #0 mL soln sodium chloride 7 % for 4 ml NEB BIDR #120 mL 05/19/24 09/13/24 Unknown nebulization spironolactone 25 mg tablet 12.5 mg (1/2 x 25 mg) PO DAILY #30 05/19/24 09/13/24 Unknown tabs montelukast 10 mg tablet 10 mg PO QAM 07/20/24 09/13/24 09/13/24 diclofenac sodium 1 % topical gel 4 g EXT BID #100 grams 07/29/24 09/13/24 Unknown (Voltaren Arthritis Pain) enalapril maleate 5 mg tablet 2.5 mg (1/2 x 5 mg) PO DAILY #30 07/29/24 09/13/24 Unknown tabs guaifenesin 600 mg tablet, 1,200 mg (2 x 600 mg) PO Q12 #60 07/29/24 09/13/24 Unknown extended release 12 hr (Mucinex) tabs theophylline 400 mg 100 mg (1/4 x 400 mg) PO BID #60 07/29/24 09/13/24 09/13/24 tablet,extended release 24 hr tabs warfarin 10 mg tablet 10 mg PO [id number]@1600 #30 tabs 07/29/24 09/13/24 Unknown warfarin 5 mg tablet 15 mg (3 x 5 mg) PO [id number]@1600 07/29/24 09/13/24 Unknown #30 tabs Active Medications Generic Name Dose Route Start Last Admin Trade Name Freq PRN Reason Stop Dose Admin Acetaminophen 650 mg 09/13/24 18:12 09/14/24 01:48 Acetaminophen 325 Mg Tab PO 10/13/24 18:11 650 mg Q4H PRN Administration Pain or Fever Albuterol 3 ml 09/13/24 19:00 09/18/24 13:10 Albut/Ipratrop 3mg/0.5mg Neb 3 Ml Vial INH 10/13/24 18:59 3 ml Q6R OMAYRA Administration Protocol Atorvastatin Calcium 80 mg 09/14/24 09:00 09/18/24 08:02 Atorvastatin 40 Mg Tab PO 10/14/24 08:59 80 mg QAM OMAYRA Administration Diclofenac Sodium 2 gm 09/14/24 01:29 09/14/24 01:46 Diclofenac Sod 1% Gel 100 Gm Tube EXT 10/14/24 01:28 2 gm Q6H PRN Administration leg pain Protocol Empagliflozin 10 mg 09/14/24 09:00 09/18/24 08:04 Empagliflozin 10 Mg Tab PO 10/14/24 08:59 10 mg QAM OMAYRA Administration Fluticasone Furoate 1 puffs 09/14/24 09:00 09/18/24 08:09 Fluticasone Furoate 100mcg 14 Puffs/Inhaler INH 10/14/24 08:59 1 puffs DAILY OMARYA Administration Protocol Fluticasone Propionate 1 sprays 09/16/24 14:00 09/18/24 08:09 Fluticasone Propionate Na Spr 16 Gm Btl NA 10/16/24 13:59 1 sprays DAILY OMAYRA Administration Furosemide 60 mg 09/18/24 09:00 09/18/24 16:24 Furosemide 40 Mg/4 Ml Vial IV 10/18/24 08:59 60 mg BID17 OMAYRA Administration Guaifenesin 1,200 mg 09/13/24 21:00 09/18/24 08:02 Guaifenesin 600 Mg Tabcr PO 10/13/24 20:59 1,200 mg Q12 OMAYRA Administration Insulin Aspart 0 units 09/13/24 18:30 09/18/24 12:31 Insulin Aspart Per Unit Charge SC 10/13/24 18:29 9 units ACHS OMAYRA Administration Montelukast Sodium 10 mg 09/14/24 09:00 09/18/24 08:03 Montelukast Sodium 10 Mg Tablet PO 10/14/24 08:59 10 mg QAM OMAYRA Administration Multivitamins/Minerals 1 tab 09/14/24 09:00 09/18/24 08:03 Cerovite Adv Formula Tab PO 10/14/24 08:59 1 tab DAILY OMAYRA Administration Pantoprazole Sodium 40 mg 09/14/24 09:00 09/18/24 08:03 Pantoprazole 40 Mg Tab PO 10/14/24 08:59 40 mg DAILY OMAYRA Administration Potassium Chloride 40 meq 09/14/24 09:00 09/18/24 08:02 Potassium Chloride Crtab 20 Meq Tabcr PO 10/14/24 08:59 40 meq QAM OMAYRA Administration Prednisone 40 mg 09/17/24 09:00 09/18/24 08:03 Prednisone 20 Mg Tab PO 10/17/24 08:59 40 mg DAILY OMAYRA Administration Sodium Chloride 4 ml 09/13/24 19:00 09/18/24 07:22 Sodium Chlor 7% 4 Ml Neb NEB 10/13/24 18:59 4 ml BIDR OMAYRA Administration Spironolactone 12.5 mg 09/14/24 09:00 09/18/24 08:02 Spironolactone 12.5 Mg Tab PO 10/14/24 08:59 12.5 mg DAILY OMAYRA Administration Theophylline 100 mg 09/13/24 21:00 09/18/24 08:03 Theophylline 400 Mg Extended Rel Tab PO 10/13/24 20:59 100 mg BID OMAYRA Administration Umeclidinium/Vilanterol 1 puffs 09/14/24 09:00 09/18/24 08:09 Umeclidinium/Vilanterol 62.5/25mcg 7 Puffs/Inhaler INH 10/14/24 08:59 1 puffs DAILY OMAYRA Administration Protocol Warfarin Sodium 15 mg 09/15/24 16:00 09/17/24 15:23 Warfarin Sod 7.5 Mg Tab PO 10/15/24 15:59 15 mg [id number]@1600 OMAYRA Administration Warfarin Sodium 10 mg 09/14/24 16:00 09/16/24 15:39 Warfarin Sod 10 Mg Tab PO 10/14/24 15:59 10 mg [id number]@1600 OMAYRA Administration
[2024-09-19 07:00] LABS: Hematocrit (blood only) 31.2 % (42.0-52.0); Hemoglobin 9.4 g/dl (14.0-18.0); Mean Corpuscular Hemoglobin 26.6 pg (25.0-34.0); Mean Corpuscular Hgb Conc 30.1 g/dL (32.0-36.0); Mean Corpuscular Volume 88.4 fL (80.0-100.0); Mean Platelet Volume 9.7 fL (9.4-12.4); Platelet Count 256 K/uL (130-400); RDW Coefficient of Variation 15.7 % (11.5-14.5); RDW Standard Deviation 50.9 fL (36.4-46.3); Red Blood Count 3.53 M/uL (4.70-6.10); White Blood Count 8.25 K/ul (4.8-10.8)
[2024-09-19 07:32] LABS: INR 3.3 (0.9-1.1); Prothrombin Time 32.4 Seconds (9.0-12.0)
[2024-09-19 07:41] LABS: Calcium 9.2 mg/dl (8.6-10.3); Creatinine Clr Calc Pharmacy 98.4 ml/min; Magnesium 2.4 mg/dl (1.7-2.4); Phosphorus 3.1 mg/dl (2.5-4.9); Potassium 3.7 mmol/L (3.5-5.1)
[2024-09-19] MEDS: POLYETHYLENE (MIRALAX) 17 GM PACK PO PRN (08:09)
--- NOTE | 2024-09-19 15:18 | Hospitalist Progress Note ---
Date of Service September 19, 2024 Assessment & Plan (1) Acute on chronic heart failure with preserved ejection fraction: (2) Acute on chronic respiratory failure with hypoxia and hypercapnia: (3) Acute exacerbation of chronic obstructive pulmonary disease (COPD): (4) Pulmonary hypertension: (5) Obesity hypoventilation syndrome: (6) Chronic a-fib: (7) DM II (diabetes mellitus, type II), controlled: (8) Anticoagulant long-term use: (9) O2 dependent: Plan: 3 L baseline at home (10) COPD (chronic obstructive pulmonary disease): (11) Morbid obesity: Plan Mr. Méndez is a 69 year old with PMHx significant for chronic diastolic heart failure, A-fib/history DVT on Coumadin, valvular heart disease, hypertension, hyperlipidemia, chronic respiratory failure secondary to pulmonary hypertension, COPD, OHS on BiPAP, DM2, chronic anemia presenting from home with trouble breathing and found to be in acute on chronic HFpEF. Patient improving overall and endorses reduction in edema in legs, noting they are "almost back to normal." #Acute on chronic respiratory failure with hypoxia and hypercarbia #Obesity hypoventilation syndrome #Acute COPD exacerbation On 3 L home oxygen No bnp this admission Chest x-ray concerning for fluid overload Continue home nebulized bronchodilators Continue with BiPAP with naps and qhs Prednisone for a 5-day course and continue nebs Clinically little better and would continue current management Continue diuersis as follows Continue montelukast #Acute on chronic heart failure with preserved EF #Severe pulm HTN ECHO 06/2024 60-65% presented with BLE edema, and elevated weight, dry weight approximately 136 kg Increased lasix to 60mg BID IV, monitor renal f/x continue Jardiance Monitor I's and O's, daily weights monitor for alkalosis--likely transition to PO tomorrow v Saturday Spironolactone 12.5mg daily resume home enalapril, bp stable #Buttock skin changes POA Wound nurse consult Continue with the wound care, encourage mobilization #Atrial fibrillation with slow ventricular response #Hx of bradycardia EKG noting A-fib with slow ventricular response Coreg d/c previously 2/2 bradycardia patient currently supratherapeutic anticoagulated with warfarin, hold Coumadin continue theophylline for off label bradycardia Continue other home meds as ordered CODE STATUS: Full code per discussion with patient Diet: Heart healthy, DM2 with fluid restriction of 1500 mL Dispo to rehab likely ready in 1-2 days Admission and Anticipated Discharge Date Admission Date: September 13, 2024 Subjective NAEO Reports feeling subjectively better, sitting in bedside chair Denies any other acute concerns Physical Exam 2 Respiratory: diminished, no wheezing appreciated Cardiovascular: RRR Musculoskeletal: firm nonpitting edema BLE, mild pitting on posterior thigh improved since day prior Results & Data Results & Data Vital Signs (Past 12 Hours) Vital Signs Temp Pulse Pulse Resp BP Pulse Ox O2 Del Method 09/19/24 13:37 65 18 92 Nasal Cannula 09/19/24 13:04 54 L 09/19/24 12:01 36.5 C 65 18 140/79 97 Room Air 09/19/24 08:21 Nasal Cannula 09/19/24 07:48 36.9 C 58 L 22 136/79 98 Nasal Cannula 09/19/24 07:23 Aerosol Mask 09/19/24 07:13 66 18 91 Nasal Cannula 09/19/24 05:41 38 L 09/19/24 04:06 36.6 C 55 L 18 130/57 L 97 Nasal Cannula O2 Flow Rate 09/19/24 13:37 2 09/19/24 13:04 09/19/24 12:01 09/19/24 08:21 4 09/19/24 07:48 4 09/19/24 07:23 09/19/24 07:13 3 09/19/24 05:41 09/19/24 04:06 4 Laboratory Results Short CBC 09/19/24 Range/Units 06:19 WBC 8.25 (4.8-10.8) K/ul Hgb 9.4 L (14.0-18.0) g/dl Hct 31.2 L (42.0-52.0) % Plt Count 256 (130-400) K/uL BMP 09/19/24 06:19 Sodium 143 Potassium 3.7 Chloride 96 L Carbon Dioxide 41 H* BUN 62 H Creatinine 1.05 Glucose 101 H Calcium 9.2 Medications Administered Home Medications Medication Instructions Recorded Confirmed Last Taken empagliflozin 10 mg tablet 10 mg PO QAM 06/10/23 09/13/24 05/12/24 fluticasone fur. 100 mcg-umeclid 1 inh inhalation DAILY 06/10/23 09/13/24 05/12/24 62.5 mcg-vilant 25 mcg inhalat.powder (Trelegy Ellipta) [id number] 300 mcg-K 60 1 tab PO DAILY 06/10/23 09/13/24 09/13/24 mcg-lycop 600 mcg-lutein 300 mcg tablet (Centrum Silver Men) pantoprazole 40 mg tablet,delayed 40 mg PO DAILY 06/10/23 09/13/24 05/12/24 release carvedilol 3.125 mg tablet 3.125 mg PO BIDM #60 tabs 06/17/23 09/13/24 09/13/24 albuterol sulfate 90 mcg/actuation 2 puff inhalation Q6H PRN 05/12/24 09/13/24 Unknown aerosol inhaler Shortness Of Breath Or Wheezing atorvastatin 80 mg tablet 80 mg PO QAM 05/12/24 09/13/24 09/13/24 fluticasone propionate 50 2 spray intranasal DAILY 05/12/24 09/13/24 05/12/24 mcg/actuation nasal spray,suspension ipratropium 0.5 mg-albuterol 3 mg 3 ml inhalation Q6H Shortness Of 05/19/24 09/13/24 Unknown (2.5 mg base)/3 mL nebulization Breath #0 mL soln sodium chloride 7 % for 4 ml NEB BIDR #120 mL 05/19/24 09/13/24 Unknown nebulization spironolactone 25 mg tablet 12.5 mg (1/2 x 25 mg) PO DAILY #30 05/19/24 09/13/24 Unknown tabs montelukast 10 mg tablet 10 mg PO QAM 07/20/24 09/13/24 09/13/24 diclofenac sodium 1 % topical gel 4 g EXT BID #100 grams 07/29/24 09/13/24 Unknown (Voltaren Arthritis Pain) enalapril maleate 5 mg tablet 2.5 mg (1/2 x 5 mg) PO DAILY #30 07/29/24 09/13/24 Unknown tabs guaifenesin 600 mg tablet, 1,200 mg (2 x 600 mg) PO Q12 #60 07/29/24 09/13/24 Unknown extended release 12 hr (Mucinex) tabs theophylline 400 mg 100 mg (1/4 x 400 mg) PO BID #60 07/29/24 09/13/24 09/13/24 tablet,extended release 24 hr tabs warfarin 10 mg tablet 10 mg PO [id number] #30 tabs 07/29/24 09/13/24 Unknown warfarin 5 mg tablet 15 mg (3 x 5 mg) PO [id number] 07/29/24 09/13/24 Unknown #30 tabs Active Medications Generic Name Dose Route Start Last Admin Trade Name Freq PRN Reason Stop Dose Admin Acetaminophen 650 mg 09/13/24 18:12 09/19/24 08:12 Acetaminophen 325 Mg Tab PO 10/13/24 18:11 650 mg Q4H PRN Administration Pain or Fever Albuterol 3 ml 09/13/24 19:00 09/19/24 13:37 Albut/Ipratrop 3mg/0.5mg Neb 3 Ml Vial INH 10/13/24 18:59 3 ml Q6R OMAYRA Administration Protocol Atorvastatin Calcium 80 mg 09/14/24 09:00 09/19/24 08:15 Atorvastatin 40 Mg Tab PO 10/14/24 08:59 80 mg QAM OMAYRA Administration Diclofenac Sodium 2 gm 09/14/24 01:29 09/14/24 01:46 Diclofenac Sod 1% Gel 100 Gm Tube EXT 10/14/24 01:28 2 gm Q6H PRN Administration leg pain Protocol Empagliflozin 10 mg 09/14/24 09:00 09/19/24 08:15 Empagliflozin 10 Mg Tab PO 10/14/24 08:59 10 mg QAM OMAYRA Administration Fluticasone Furoate 1 puffs 09/14/24 09:00 09/19/24 08:08 Fluticasone Furoate 100mcg 14 Puffs/Inhaler INH 10/14/24 08:59 1 puffs DAILY OMAYRA Administration Protocol Fluticasone Propionate 1 sprays 09/16/24 14:00 09/19/24 08:09 Fluticasone Propionate Na Spr 16 Gm Btl NA 10/16/24 13:59 1 sprays DAILY OMAYRA Administration Furosemide 60 mg 09/18/24 09:00 09/19/24 08:12 Furosemide 40 Mg/4 Ml Vial IV 10/18/24 08:59 60 mg BID17 OMAYRA Administration Guaifenesin 1,200 mg 09/13/24 21:00 09/19/24 08:16 Guaifenesin 600 Mg Tabcr PO 10/13/24 20:59 1,200 mg Q12 OMAYRA Administration Insulin Aspart 0 units 09/13/24 18:30 09/19/24 12:53 Insulin Aspart Per Unit Charge SC 10/13/24 18:29 11 units ACHS OMAYRA Administration Montelukast Sodium 10 mg 09/14/24 09:00 09/19/24 08:16 Montelukast Sodium 10 Mg Tablet PO 10/14/24 08:59 10 mg QAM OMAYRA Administration Multivitamins/Minerals 1 tab 09/14/24 09:00 09/19/24 08:15 Cerovite Adv Formula Tab PO 10/14/24 08:59 1 tab DAILY OMAYRA Administration Pantoprazole Sodium 40 mg 09/14/24 09:00 09/19/24 08:16 Pantoprazole 40 Mg Tab PO 10/14/24 08:59 40 mg DAILY OMAYRA Administration Polyethylene Glycol 17 gm 09/13/24 18:12 09/19/24 08:09 Polyethylene (Miralax) 17 Gm Pack PO 10/13/24 18:11 17 gm DAILY PRN Administration Constipation Potassium Chloride 40 meq 09/14/24 09:00 09/19/24 08:12 Potassium Chloride Crtab 20 Meq Tabcr PO 10/14/24 08:59 40 meq QAM OMAYRA Administration Prednisone 40 mg 09/17/24 09:00 09/19/24 08:15 Prednisone 20 Mg Tab PO 10/17/24 08:59 40 mg DAILY OMAYRA Administration Spironolactone 12.5 mg 09/14/24 09:00 09/19/24 08:17 Spironolactone 12.5 Mg Tab PO 10/14/24 08:59 12.5 mg DAILY OMAYRA Administration Theophylline 100 mg 09/13/24 21:00 09/19/24 08:16 Theophylline 400 Mg Extended Rel Tab PO 10/13/24 20:59 100 mg BID OMAYRA Administration Umeclidinium/Vilanterol 1 puffs 09/14/24 09:00 09/19/24 08:09 Umeclidinium/Vilanterol 62.5/25mcg 7 Puffs/Inhaler INH 10/14/24 08:59 1 puffs DAILY OMAYRA Administration Protocol Warfarin Sodium 15 mg 09/15/24 16:00 09/17/24 15:23 Warfarin Sod 7.5 Mg Tab PO 10/15/24 15:59 15 mg [id number] [facility] Administration Warfarin Sodium 10 mg 09/14/24 16:00 09/16/24 15:39 Warfarin Sod 10 Mg Tab PO 10/14/24 15:59 10 mg [email or web address] [facility] Administration
[2024-09-20 07:44] LABS: BUN Creatinine Ratio 62.8 (10-20); Calcium 9.1 mg/dl (8.6-10.3); Creatinine Clr Calc Pharmacy 121.7 ml/min; Potassium 3.9 mmol/L (3.5-5.1)
[2024-09-20 07:52] LABS: INR 2.6 (0.9-1.1); Prothrombin Time 25.6 Seconds (9.0-12.0)
[2024-09-20] MEDS: ENALAPRIL MALEATE 5 MG TAB PO SCH (07:58)
--- NOTE | 2024-09-20 15:21 | Hospitalist Progress Note ---
Date of Service September 20, 2024 Assessment & Plan (1) Acute on chronic heart failure with preserved ejection fraction: (2) Acute on chronic respiratory failure with hypoxia and hypercapnia: (3) Acute exacerbation of chronic obstructive pulmonary disease (COPD): (4) Pulmonary hypertension: (5) Obesity hypoventilation syndrome: (6) Chronic a-fib: (7) DM II (diabetes mellitus, type II), controlled: (8) Anticoagulant long-term use: (9) O2 dependent: Plan: 3 L baseline at home (10) COPD (chronic obstructive pulmonary disease): (11) Morbid obesity: Plan Mr. Méndez is a 69 year old with PMHx significant for chronic diastolic heart failure, A-fib/history DVT on Coumadin, valvular heart disease, hypertension, hyperlipidemia, chronic respiratory failure secondary to pulmonary hypertension, COPD, OHS on BiPAP, DM2, chronic anemia presenting from home with trouble breathing and found to be in acute on chronic HFpEF. Patient improving overall and endorses reduction in edema in legs, noting they are "almost back to normal." #Acute on chronic respiratory failure with hypoxia and hypercarbia *improved #Obesity hypoventilation syndrome #Acute COPD exacerbation *resolved On 3 L home oxygen No bnp this admission Chest x-ray concerning for fluid overload Continue home nebulized bronchodilators Continue with BiPAP with naps and qhs Prednisone for a 5-day course EOT 09/21 and continue nebs Clinically little better and would continue current management Continue diuersis as follows Continue montelukast #Acute on chronic heart failure with preserved EF #Severe pulm HTN ECHO 06/2024 60-65% presented with BLE edema, and elevated weight, dry weight approximately 136 kg continue Jardiance Monitor I's and O's, daily weights Spironolactone 12.5mg daily continued home enalapril, bp stable Transition to PO torsemide 40mg BID this evening plan for removal of hernandez in am labs in am #Buttock skin changes POA Wound nurse consult Continue with the wound care, encourage mobilization #Atrial fibrillation with slow ventricular response #Hx of bradycardia EKG noting A-fib with slow ventricular response Coreg d/c previously 2/2 bradycardia patient currently supratherapeutic anticoagulated with warfarin, hold Coumadin continue theophylline for off label bradycardia Continue other home meds as ordered CODE STATUS: Full code per discussion with patient Diet: Heart healthy, DM2 with fluid restriction of 1500 mL Dispo to rehab likely ready in 1-2 days Admission and Anticipated Discharge Date Admission Date: September 13, 2024 Subjective NAEO Eating lunch and pleasant/conversational Denies any acute concerns during visit, states goal is to "work out 3 times today" Physical Exam Constitutional: WD/WN, vitals as above Respiratory: normal respiratory effort, lungs clear to auscultation Cardiovascular: RRR Skin: improvement in edema BLE, posterior thigh, still nonpitting edema noted, but less severe Results & Data Results & Data Vital Signs (Past 12 Hours) Vital Signs Temp Pulse Pulse Resp BP BP Pulse Ox 09/20/24 13:02 66 17 96 09/20/24 13:01 63 09/20/24 10:56 36.3 C L 78 20 132/65 94 09/20/24 07:47 36.6 C 69 16 140/80 98 09/20/24 07:46 98 09/20/24 07:46 09/20/24 07:09 56 L 18 86 L 09/20/24 05:37 50 L O2 Del Method O2 Flow Rate 09/20/24 13:02 Nasal Cannula 4 09/20/24 13:01 09/20/24 10:56 Nasal Cannula 2 09/20/24 07:47 Oxymask 4 09/20/24 07:46 Nasal Cannula 4 09/20/24 07:46 Nasal Cannula 09/20/24 07:09 Nasal Cannula 4 09/20/24 05:37 Laboratory Results [facility] 09/20/24 06:39 Sodium 143 Potassium 3.9 Chloride 95 L Carbon Dioxide 44 H* BUN 54 H Creatinine 0.86 Glucose 106 H Calcium 9.1 Medications Administered Home Medications Medication Instructions Recorded Confirmed Last Taken empagliflozin 10 mg tablet 10 mg PO QAM 06/10/23 09/13/24 05/12/24 fluticasone fur. 100 mcg-umeclid 1 inh inhalation DAILY 06/10/23 09/13/24 05/12/24 62.5 mcg-vilant 25 mcg inhalat.powder (Trelegy Ellipta) sxshaxpu-[id number]-lkmmr 300 mcg-K 60 1 tab PO DAILY 06/10/23 09/13/24 09/13/24 mcg-lycop 600 mcg-lutein 300 mcg tablet (Centrum Silver Men) pantoprazole 40 mg tablet,delayed 40 mg PO DAILY 06/10/23 09/13/24 05/12/24 release carvedilol 3.125 mg tablet 3.125 mg PO BIDM #60 tabs 06/17/23 09/13/24 09/13/24 albuterol sulfate 90 mcg/actuation 2 puff inhalation Q6H PRN 05/12/24 09/13/24 Unknown aerosol inhaler Shortness Of Breath Or Wheezing atorvastatin 80 mg tablet 80 mg PO QAM 05/12/24 09/13/24 09/13/24 fluticasone propionate 50 2 spray intranasal DAILY 05/12/24 09/13/24 05/12/24 mcg/actuation nasal spray,suspension ipratropium 0.5 mg-albuterol 3 mg 3 ml inhalation Q6H Shortness Of 05/19/24 09/13/24 Unknown (2.5 mg base)/3 mL nebulization Breath #0 mL soln sodium chloride 7 % for 4 ml NEB BIDR #120 mL 05/19/24 09/13/24 Unknown nebulization spironolactone 25 mg tablet 12.5 mg (1/2 x 25 mg) PO DAILY #30 05/19/24 09/13/24 Unknown tabs montelukast 10 mg tablet 10 mg PO QAM 07/20/24 09/13/24 09/13/24 diclofenac sodium 1 % topical gel 4 g EXT BID #100 grams 07/29/24 09/13/24 Unknown (Voltaren Arthritis Pain) enalapril maleate 5 mg tablet 2.5 mg (1/2 x 5 mg) PO DAILY #30 07/29/24 09/13/24 Unknown tabs guaifenesin 600 mg tablet, 1,200 mg (2 x 600 mg) PO Q12 #60 07/29/24 09/13/24 Unknown extended release 12 hr (Mucinex) tabs theophylline 400 mg 100 mg (1/4 x 400 mg) PO BID #60 07/29/24 09/13/24 09/13/24 tablet,extended release 24 hr tabs warfarin 10 mg tablet 10 mg PO [id number]@1600 #30 tabs 07/29/24 09/13/24 Unknown warfarin 5 mg tablet 15 mg (3 x 5 mg) PO [id number] 07/29/24 09/13/24 Unknown #30 tabs Active Medications Generic Name Dose Route Start Last Admin Trade Name Freq PRN Reason Stop Dose Admin Acetaminophen 650 mg 09/13/24 18:12 09/20/24 07:54 Acetaminophen 325 Mg Tab PO 10/13/24 18:11 650 mg Q4H PRN Administration Pain or Fever Albuterol 3 ml 09/13/24 19:00 09/20/24 13:02 Albut/Ipratrop 3mg/0.5mg Neb 3 Ml Vial INH 10/13/24 18:59 3 ml Q6R OMAYRA Administration Protocol Atorvastatin Calcium 80 mg 09/14/24 09:00 09/20/24 08:00 Atorvastatin 40 Mg Tab PO 10/14/24 08:59 80 mg QAM OMAYRA Administration Diclofenac Sodium 2 gm 09/14/24 01:29 09/20/24 09:59 Diclofenac Sod 1% Gel 100 Gm Tube EXT 10/14/24 01:28 2 gm Q6H PRN Administration leg pain Protocol Empagliflozin 10 mg 09/14/24 09:00 09/20/24 08:00 Empagliflozin 10 Mg Tab PO 10/14/24 08:59 10 mg QAM OMAYRA Administration Enalapril Maleate 2.5 mg 09/20/24 09:00 09/20/24 07:58 Enalapril Maleate 5 Mg Tab PO 10/20/24 08:59 2.5 mg QAM OMAYRA Administration Fluticasone Furoate 1 puffs 09/14/24 09:00 09/20/24 07:57 Fluticasone Furoate 100mcg 14 Puffs/Inhaler INH 10/14/24 08:59 1 puffs DAILY OMAYRA Administration Protocol Fluticasone Propionate 1 sprays 09/16/24 14:00 09/20/24 07:57 Fluticasone Propionate Na Spr 16 Gm Btl NA 10/16/24 13:59 1 sprays DAILY OMAYRA Administration Guaifenesin 1,200 mg 09/13/24 21:00 09/20/24 08:00 Guaifenesin 600 Mg Tabcr PO 10/13/24 20:59 1,200 mg Q12 OMAYRA Administration Insulin Aspart 0 units 09/13/24 18:30 09/20/24 12:31 Insulin Aspart Per Unit Charge SC 10/13/24 18:29 7 units ACHS OMAYRA Administration Montelukast Sodium 10 mg 09/14/24 09:00 09/20/24 08:00 Montelukast Sodium 10 Mg Tablet PO 10/14/24 08:59 10 mg QAM OMAYRA Administration Multivitamins/Minerals 1 tab 09/14/24 09:00 09/20/24 08:00 Cerovite Adv Formula Tab PO 10/14/24 08:59 1 tab DAILY OMAYRA Administration Pantoprazole Sodium 40 mg 09/14/24 09:00 09/20/24 08:00 Pantoprazole 40 Mg Tab PO 10/14/24 08:59 40 mg DAILY OMAYRA Administration Polyethylene Glycol 17 gm 09/13/24 18:12 09/20/24 07:54 Polyethylene (Miralax) 17 Gm Pack PO 10/13/24 18:11 17 gm DAILY PRN Administration Constipation Potassium Chloride 40 meq 09/14/24 09:00 09/20/24 07:55 Potassium Chloride Crtab 20 Meq Tabcr PO 10/14/24 08:59 40 meq QAM OMAYRA Administration Prednisone 40 mg 09/17/24 09:00 09/20/24 08:00 Prednisone 20 Mg Tab PO 09/21/24 09:01 40 mg DAILY OMAYRA Administration Spironolactone 12.5 mg 09/14/24 09:00 09/20/24 07:58 Spironolactone 12.5 Mg Tab PO 10/14/24 08:59 12.5 mg DAILY OMAYRA Administration Theophylline 100 mg 09/13/24 21:00 09/20/24 07:57 Theophylline 400 Mg Extended Rel Tab PO 10/13/24 20:59 100 mg BID OMAYRA Administration Umeclidinium/Vilanterol 1 puffs 09/14/24 09:00 09/20/24 07:56 Umeclidinium/Vilanterol 62.5/25mcg 7 Puffs/Inhaler INH 10/14/24 08:59 1 puffs DAILY OMAYRA Administration Protocol Warfarin Sodium 15 mg 09/15/24 16:00 09/19/24 16:59 Warfarin Sod 7.5 Mg Tab PO 10/15/24 15:59 15 mg [id number] MOAYRA Administration Warfarin Sodium 10 mg 09/14/24 16:00 09/16/24 15:39 Warfarin Sod 10 Mg Tab PO 10/14/24 15:59 10 mg [email or web address] OMAYRA Administration
[2024-09-20] MEDS: TORSEMIDE 20 MG TAB PO SCH (16:43)
[2024-09-20] MEDS ORDERED: TORSEMIDE 20 MG TAB PO SCH (21:00)
[2024-09-21 08:01] LABS: Hematocrit (blood only) 33.5 % (42.0-52.0); Hemoglobin 10.2 g/dl (14.0-18.0); Mean Corpuscular Hemoglobin 26.5 pg (25.0-34.0); Mean Corpuscular Hgb Conc 30.4 g/dL (32.0-36.0); Mean Platelet Volume 9.5 fL (9.4-12.4); Platelet Count 281 K/uL (130-400); RDW Coefficient of Variation 15.4 % (11.5-14.5); RDW Standard Deviation 49.1 fL (36.4-46.3); Red Blood Count 3.85 M/uL (4.70-6.10); White Blood Count 8.44 K/ul (4.8-10.8)
[2024-09-21 08:26] LABS: INR 3.1 (0.9-1.1)
[2024-09-21 08:32] LABS: BUN Creatinine Ratio 58.8 (10-20); Calcium 9.2 mg/dl (8.6-10.3); Creatinine Clr Calc Pharmacy 123.2 ml/min; Magnesium 2.4 mg/dl (1.7-2.4); Phosphorus 3.1 mg/dl (2.5-4.9)
--- NOTE | 2024-09-21 12:41 | Hospitalist Progress Note ---
Date of Service September 21, 2024 Assessment & Plan (1) Acute on chronic heart failure with preserved ejection fraction: (2) Acute on chronic respiratory failure with hypoxia and hypercapnia: (3) Acute exacerbation of chronic obstructive pulmonary disease (COPD): (4) Pulmonary hypertension: (5) Obesity hypoventilation syndrome: (6) Chronic a-fib: (7) DM II (diabetes mellitus, type II), controlled: (8) Anticoagulant long-term use: (9) O2 dependent: Plan: 3 L baseline at home (10) COPD (chronic obstructive pulmonary disease): (11) Morbid obesity: Plan Mr. Méndez is a 69 year old with PMHx significant for chronic diastolic heart failure, A-fib/history DVT on Coumadin, valvular heart disease, hypertension, hyperlipidemia, chronic respiratory failure secondary to pulmonary hypertension, COPD, OHS on BiPAP, DM2, chronic anemia presenting from home with trouble breathing and found to be in acute on chronic HFpEF. Patient improving overall and feels like he is close to normal. He denies any new concerns. #Acute on chronic respiratory failure with hypoxia and hypercarbia *improved #Obesity hypoventilation syndrome #Acute COPD exacerbation *resolved On 3 L home oxygen No bnp this admission Chest x-ray concerning for fluid overload Continue home nebulized bronchodilators Continue with BiPAP with naps and qhs completed Prednisone for a 5-day course EOT 09/21 and continue nebs Clinically little better and would continue current management Continue diuersis as follows Continue montelukast #Acute on chronic heart failure with preserved EF #Severe pulm HTN ECHO 06/2024 60-65% presented with BLE edema, and elevated weight, dry weight approximately 136 kg continue Jardiance Monitor I's and O's, daily weights Spironolactone 12.5mg daily continued home enalapril, increased to 5mg daily hold evening dose torsemide iso hypernatremia plan for removal of hernandez today labs in am #Buttock skin changes POA Wound nurse consult Continue with the wound care, encourage mobilization #Atrial fibrillation with slow ventricular response #Hx of bradycardia EKG noting A-fib with slow ventricular response Coreg d/c previously 2/2 bradycardia patient currently supratherapeutic anticoagulated with warfarin, hold Coumadin continue theophylline for off label bradycardia Continue other home meds as ordered CODE STATUS: Full code per discussion with patient Diet: Heart healthy, DM2 with fluid restriction of 1500 mL Dispo to rehab likely ready in 1-2 days Admission and Anticipated Discharge Date Admission Date: September 13, 2024 Subjective NAEO Reports feeling pretty good today and denies any other acute concerns Patient eager for rehab Physical Exam Constitutional: WD/WN, vitals as above Respiratory: normal respiratory effort, lungs clear to auscultation Results & Data Results & Data Vital Signs (Past 12 Hours) Vital Signs Temp Pulse Pulse Pulse Resp BP BP 09/21/24 11:29 36.8 C 87 18 156/102 H 09/21/24 07:50 09/21/24 07:35 37 C 62 18 158/79 H 09/21/24 07:19 61 18 09/21/24 05:51 61 09/21/24 04:58 64 20 09/21/24 03:36 36.5 C 54 L 18 118/73 09/21/24 00:52 67 17 Pulse Ox O2 Del Method O2 Flow Rate 09/21/24 11:29 95 Nasal Cannula 4 09/21/24 07:50 Nasal Cannula 4 09/21/24 07:35 95 Nasal Cannula 4 09/21/24 07:19 98 Nasal Cannula 2 09/21/24 05:51 09/21/24 04:58 98 3 09/21/24 03:36 96 CPAP 09/21/24 00:52 94 BiPAP 4 Laboratory Results Short CBC 09/21/24 Range/Units 07:31 WBC 8.44 (4.8-10.8) K/ul Hgb 10.2 L (14.0-18.0) g/dl Hct 33.5 L (42.0-52.0) % Plt Count 281 (130-400) K/uL BMP 09/21/24 07:31 Sodium 146 H Potassium 4.0 Chloride 97 L Carbon Dioxide 43 H* BUN 50 H Creatinine 0.85 Glucose 104 H Calcium 9.2 Medications Administered Home Medications Medication Instructions Recorded Confirmed Last Taken empagliflozin 10 mg tablet 10 mg PO QAM 06/10/23 09/13/24 05/12/24 fluticasone fur. 100 mcg-umeclid 1 inh inhalation DAILY 06/10/23 09/13/24 05/12/24 62.5 mcg-vilant 25 mcg inhalat.powder (Trelegy Ellipta) [id number] 300 mcg-K 60 1 tab PO DAILY 06/10/23 09/13/24 09/13/24 mcg-lycop 600 mcg-lutein 300 mcg tablet (Centrum Silver Men) pantoprazole 40 mg tablet,delayed 40 mg PO DAILY 06/10/23 09/13/24 05/12/24 release carvedilol 3.125 mg tablet 3.125 mg PO BIDM #60 tabs 06/17/23 09/13/24 09/13/24 albuterol sulfate 90 mcg/actuation 2 puff inhalation Q6H PRN 05/12/24 09/13/24 Unknown aerosol inhaler Shortness Of Breath Or Wheezing atorvastatin 80 mg tablet 80 mg PO QAM 05/12/24 09/13/24 09/13/24 fluticasone propionate 50 2 spray intranasal DAILY 05/12/24 09/13/24 05/12/24 mcg/actuation nasal spray,suspension ipratropium 0.5 mg-albuterol 3 mg 3 ml inhalation Q6H Shortness Of 05/19/24 09/13/24 Unknown (2.5 mg base)/3 mL nebulization Breath #0 mL soln sodium chloride 7 % for 4 ml NEB BIDR #120 mL 05/19/24 09/13/24 Unknown nebulization spironolactone 25 mg tablet 12.5 mg (1/2 x 25 mg) PO DAILY #30 05/19/24 09/13/24 Unknown tabs montelukast 10 mg tablet 10 mg PO QAM 07/20/24 09/13/24 09/13/24 diclofenac sodium 1 % topical gel 4 g EXT BID #100 grams 07/29/24 09/13/24 Unknown (Voltaren Arthritis Pain) enalapril maleate 5 mg tablet 2.5 mg (1/2 x 5 mg) PO DAILY #30 07/29/24 09/13/24 Unknown tabs guaifenesin 600 mg tablet, 1,200 mg (2 x 600 mg) PO Q12 #60 07/29/24 09/13/24 Unknown extended release 12 hr (Mucinex) tabs theophylline 400 mg 100 mg (1/4 x 400 mg) PO BID #60 07/29/24 09/13/24 09/13/24 tablet,extended release 24 hr tabs warfarin 10 mg tablet 10 mg PO MoWeFr@1600 #30 tabs 07/29/24 09/13/24 Unknown warfarin 5 mg tablet 15 mg (3 x 5 mg) PO SuTuThSa@1600 07/29/24 09/13/24 Unknown #30 tabs Active Medications Generic Name Dose Route Start Last Admin Trade Name Freq PRN Reason Stop Dose Admin Acetaminophen 650 mg 09/13/24 18:12 09/20/24 07:54 Acetaminophen 325 Mg Tab PO 10/13/24 18:11 650 mg Q4H PRN Administration Pain or Fever Atorvastatin Calcium 80 mg 09/14/24 09:00 09/21/24 08:34 Atorvastatin 40 Mg Tab PO 10/14/24 08:59 80 mg QAM OMAYRA Administration Diclofenac Sodium 2 gm 09/14/24 01:29 09/21/24 09:32 Diclofenac Sod 1% Gel 100 Gm Tube EXT 10/14/24 01:28 2 gm Q6H PRN Administration leg pain Protocol Empagliflozin 10 mg 09/14/24 09:00 09/21/24 08:34 Empagliflozin 10 Mg Tab PO 10/14/24 08:59 10 mg QAM OMAYRA Administration Fluticasone Furoate 1 puffs 09/14/24 09:00 09/21/24 08:38 Fluticasone Furoate 100mcg 14 Puffs/Inhaler INH 10/14/24 08:59 1 puffs DAILY OMAYRA Administration Protocol Fluticasone Propionate 1 sprays 09/16/24 14:00 09/21/24 08:38 Fluticasone Propionate Na Spr 16 Gm Btl NA 10/16/24 13:59 1 sprays DAILY OMAYRA Administration Guaifenesin 1,200 mg 09/13/24 21:00 09/21/24 08:35 Guaifenesin 600 Mg Tabcr PO 10/13/24 20:59 1,200 mg Q12 OMAYRA Administration Insulin Aspart 0 units 09/13/24 18:30 09/21/24 12:17 Insulin Aspart Per Unit Charge SC 10/13/24 18:29 Not Given ACHS OMAYRA Montelukast Sodium 10 mg 09/14/24 09:00 09/21/24 08:33 Montelukast Sodium 10 Mg Tablet PO 10/14/24 08:59 10 mg QAM OMAYRA Administration Multivitamins/Minerals 1 tab 09/14/24 09:00 09/21/24 08:34 Cerovite Adv Formula Tab PO 10/14/24 08:59 1 tab DAILY OMAYRA Administration Pantoprazole Sodium 40 mg 09/14/24 09:00 09/21/24 08:33 Pantoprazole 40 Mg Tab PO 10/14/24 08:59 40 mg DAILY OMAYRA Administration Polyethylene Glycol 17 gm 09/13/24 18:12 09/20/24 07:54 Polyethylene (Miralax) 17 Gm Pack PO 10/13/24 18:11 17 gm DAILY PRN Administration Constipation Potassium Chloride 40 meq 09/14/24 09:00 09/21/24 08:31 Potassium Chloride Crtab 20 Meq Tabcr PO 10/14/24 08:59 40 meq QAM OMAYRA Administration Spironolactone 12.5 mg 09/14/24 09:00 09/21/24 08:36 Spironolactone 12.5 Mg Tab PO 10/14/24 08:59 12.5 mg DAILY OMAYRA Administration Theophylline 100 mg 09/13/24 21:00 09/21/24 08:32 Theophylline 400 Mg Extended Rel Tab PO 10/13/24 20:59 100 mg BID OMAYRA Administration Torsemide 40 mg 09/20/24 17:00 09/21/24 08:34 Torsemide 20 Mg Tab PO 10/20/24 16:59 40 mg BIDM OMAYRA Administration Umeclidinium/Vilanterol 1 puffs 09/14/24 09:00 09/21/24 08:38 Umeclidinium/Vilanterol 62.5/25mcg 7 Puffs/Inhaler INH 10/14/24 08:59 1 puffs DAILY OMAYRA Administration Protocol
[2024-09-21] MEDS: ENALAPRIL MALEATE 5 MG TAB PO STA (13:37)
[2024-09-21] MEDS: WARFARIN SOD 5 MG TAB PO SCH (15:45)
[2024-09-21] MEDS: ALBUTEROL 0.083% NEBU SOLN 3 ML VIAL NEB PRN (22:13)
[2024-09-22] MEDS: ENALAPRIL MALEATE 5 MG TAB PO SCH (07:45)
[2024-09-22 07:59] LABS: Hematocrit (blood only) 35.6 % (42.0-52.0); Hemoglobin 10.8 g/dl (14.0-18.0); Mean Corpuscular Hemoglobin 26.2 pg (25.0-34.0); Mean Corpuscular Hgb Conc 30.3 g/dL (32.0-36.0); Mean Corpuscular Volume 86.4 fL (80.0-100.0); Mean Platelet Volume 9.6 fL (9.4-12.4); Platelet Count 301 K/uL (130-400); RDW Coefficient of Variation 15.5 % (11.5-14.5); Red Blood Count 4.12 M/uL (4.70-6.10); White Blood Count 8.69 K/ul (4.8-10.8)
[2024-09-22 08:34] LABS: Calcium 9.3 mg/dl (8.6-10.3); Creatinine Clr Calc Pharmacy 125.7 ml/min; Potassium 3.7 mmol/L (3.5-5.1)
[2024-09-22 08:47] LABS: INR 2.8 (0.9-1.1); Prothrombin Time 27.3 Seconds (9.0-12.0)
--- NOTE | 2024-09-22 17:28 | Hospitalist Progress Note ---
Date of Service September 22, 2024 Assessment & Plan (1) Acute on chronic heart failure with preserved ejection fraction: (2) Acute on chronic respiratory failure with hypoxia and hypercapnia: (3) Acute exacerbation of chronic obstructive pulmonary disease (COPD): (4) Pulmonary hypertension: (5) Obesity hypoventilation syndrome: (6) Chronic a-fib: (7) DM II (diabetes mellitus, type II), controlled: (8) Anticoagulant long-term use: (9) O2 dependent: Plan: 3 L baseline at home (10) COPD (chronic obstructive pulmonary disease): (11) Morbid obesity: Plan Mr. Méndez is a 69 year old with PMHx significant for chronic diastolic heart failure, A-fib/history DVT on Coumadin, valvular heart disease, hypertension, hyperlipidemia, chronic respiratory failure secondary to pulmonary hypertension, COPD, OHS on BiPAP, DM2, chronic anemia presenting from home with trouble breathing and found to be in acute on chronic HFpEF. Patient improving overall and feels like he is close to normal. He denies any new concerns. Patient awaiting discharge to [facility]. #Acute on chronic respiratory failure with hypoxia and hypercarbia *improved #Obesity hypoventilation syndrome #Acute COPD exacerbation *resolved On 3 L home oxygen No bnp this admission Chest x-ray concerning for fluid overload Continue home nebulized bronchodilators Continue with BiPAP with naps and qhs completed Prednisone for a 5-day course EOT 09/21 and continue nebs Clinically little better and would continue current management Continue diuersis as follows Continue montelukast #Acute on chronic heart failure with preserved EF #Severe pulm HTN ECHO 06/2024 60-65% presented with BLE edema, and elevated weight, dry weight approximately 136 kg continue Jardiance Monitor I's and O's, daily weights Spironolactone 12.5mg daily continued home enalapril, temp increased to 5mg daily however liable BP therefore back to 2.5mg hold evening dose torsemide iso hypernatremia successful void trial labs in am #Buttock skin changes POA #Rleg wound POA Wound nurse consult Continue with the wound care, encourage mobilization Healing well #Atrial fibrillation with slow ventricular response #Hx of bradycardia EKG noting A-fib with slow ventricular response Coreg d/c previously 2/2 bradycardia patient currently supratherapeutic anticoagulated with warfarin, hold Coumadin continue theophylline for off label bradycardia Continue other home meds as ordered CODE STATUS: Full code per discussion with patient Diet: Heart healthy, DM2 with fluid restriction of 2000 mL Dispo to rehab when bed available Admission and Anticipated Discharge Date Admission Date: September 13, 2024 Subjective Patient in good spirits, does not wish to go to any other facility outside of [facility] Denies any sob, chest pain palpitations or other acute concerns working to "move more" as able Physical Exam Constitutional: WD/WN, vitals as above Respiratory: normal respiratory effort, lungs clear to auscultation Cardiovascular: RRR Musculoskeletal: stable nonpitting edema of BLE with dusky discoloration consistent with venosus stasis Results & Data Results & Data Vital Signs (Past 12 Hours) Vital Signs Temp Pulse Pulse Resp BP Pulse Ox O2 Del Method 09/22/24 15:28 88 17 95 Nasal Cannula 09/22/24 15:26 36.8 C 78 20 121/47 L 96 Room Air 09/22/24 14:15 72 09/22/24 11:40 36.8 C 79 20 97/48 L 99 Nasal Cannula 09/22/24 11:30 Nasal Cannula 09/22/24 11:30 86 15 95 Nasal Cannula 09/22/24 08:12 36.8 C 75 20 137/49 L 97 Nasal Cannula 09/22/24 07:45 Nasal Cannula 09/22/24 07:00 62 09/22/24 06:08 100 H 20 91 Nasal Cannula O2 Flow Rate 09/22/24 15:28 1.5 09/22/24 15:26 09/22/24 14:15 09/22/24 11:40 4 09/22/24 11:30 2 09/22/24 11:30 1.5 09/22/24 08:12 4 09/22/24 07:45 2 09/22/24 07:00 09/22/24 06:08 4 Laboratory Results Short CBC 09/22/24 Range/Units 07:30 WBC 8.69 (4.8-10.8) K/ul Hgb 10.8 L (14.0-18.0) g/dl Hct 35.6 L (42.0-52.0) % Plt Count 301 (130-400) K/uL BMP 09/22/24 07:30 Sodium 141 Potassium 3.7 Chloride 96 L Carbon Dioxide 39 H BUN 51 H Creatinine 0.81 Glucose 101 H Calcium 9.3 Medications Administered Home Medications Medication Instructions Recorded Confirmed Last Taken empagliflozin 10 mg tablet 10 mg PO QAM 06/10/23 09/13/24 05/12/24 fluticasone fur. 100 mcg-umeclid 1 inh inhalation DAILY 06/10/23 09/13/24 05/12/24 62.5 mcg-vilant 25 mcg inhalat.powder (Trelegy Ellipta) [id number] 300 mcg-K 60 1 tab PO DAILY 06/10/23 09/13/24 09/13/24 mcg-lycop 600 mcg-lutein 300 mcg tablet (Centrum Silver Men) pantoprazole 40 mg tablet,delayed 40 mg PO DAILY 06/10/23 09/13/24 05/12/24 release carvedilol 3.125 mg tablet 3.125 mg PO BIDM #60 tabs 06/17/23 09/13/24 09/13/24 albuterol sulfate 90 mcg/actuation 2 puff inhalation Q6H PRN 05/12/24 09/13/24 Unknown aerosol inhaler Shortness Of Breath Or Wheezing atorvastatin 80 mg tablet 80 mg PO QAM 05/12/24 09/13/24 09/13/24 fluticasone propionate 50 2 spray intranasal DAILY 05/12/24 09/13/24 05/12/24 mcg/actuation nasal spray,suspension ipratropium 0.5 mg-albuterol 3 mg 3 ml inhalation Q6H Shortness Of 05/19/24 09/13/24 Unknown (2.5 mg base)/3 mL nebulization Breath #0 mL soln sodium chloride 7 % for 4 ml NEB BIDR #120 mL 05/19/24 09/13/24 Unknown nebulization spironolactone 25 mg tablet 12.5 mg (1/2 x 25 mg) PO DAILY #30 05/19/24 09/13/24 Unknown tabs montelukast 10 mg tablet 10 mg PO QAM 07/20/24 09/13/24 09/13/24 diclofenac sodium 1 % topical gel 4 g EXT BID #100 grams 07/29/24 09/13/24 Unknown (Voltaren Arthritis Pain) enalapril maleate 5 mg tablet 2.5 mg (1/2 x 5 mg) PO DAILY #30 07/29/24 09/13/24 Unknown tabs guaifenesin 600 mg tablet, 1,200 mg (2 x 600 mg) PO Q12 #60 07/29/24 09/13/24 Unknown extended release 12 hr (Mucinex) tabs theophylline 400 mg 100 mg (1/4 x 400 mg) PO BID #60 07/29/24 09/13/24 09/13/24 tablet,extended release 24 hr tabs warfarin 10 mg tablet 10 mg PO MoWeFr@1600 #30 tabs 07/29/24 09/13/24 Unknown warfarin 5 mg tablet 15 mg (3 x 5 mg) PO SuTuThSa@1600 07/29/24 09/13/24 Unknown #30 tabs Active Medications Generic Name Dose Route Start Last Admin Trade Name Freq PRN Reason Stop Dose Admin Acetaminophen 650 mg 09/13/24 18:12 09/21/24 13:53 Acetaminophen 325 Mg Tab PO 10/13/24 18:11 650 mg Q4H PRN Administration Pain or Fever Albuterol 2.5 mg 09/16/24 13:56 09/22/24 15:28 Albuterol 0.083% Nebu Soln 3 Ml Vial NEB 10/16/24 13:55 2.5 mg Q4H PRN Administration Shortness Of Breath Or Wheezing Protocol Atorvastatin Calcium 80 mg 09/14/24 09:00 09/22/24 07:46 Atorvastatin 40 Mg Tab PO 10/14/24 08:59 80 mg QAM OMAYRA Administration Diclofenac Sodium 2 gm 09/14/24 01:29 09/22/24 07:47 Diclofenac Sod 1% Gel 100 Gm Tube EXT 10/14/24 01:28 2 gm Q6H PRN Administration leg pain Protocol Empagliflozin 10 mg 09/14/24 09:00 09/22/24 07:46 Empagliflozin 10 Mg Tab PO 10/14/24 08:59 10 mg QAM OMAYRA Administration Fluticasone Furoate 1 puffs 09/14/24 09:00 09/22/24 07:44 Fluticasone Furoate 100mcg 14 Puffs/Inhaler INH 10/14/24 08:59 1 puffs DAILY OMAYRA Administration Protocol Fluticasone Propionate 1 sprays 09/16/24 14:00 09/22/24 07:44 Fluticasone Propionate Na Spr 16 Gm Btl NA 10/16/24 13:59 1 sprays DAILY OMAYRA Administration Guaifenesin 1,200 mg 09/13/24 21:00 09/22/24 07:46 Guaifenesin 600 Mg Tabcr PO 10/13/24 20:59 1,200 mg Q12 OMAYRA Administration Insulin Aspart 0 units 09/13/24 18:30 09/22/24 12:22 Insulin Aspart Per Unit Charge SC 10/13/24 18:29 Not Given ACHS OMAYRA Montelukast Sodium 10 mg 09/14/24 09:00 09/22/24 07:46 Montelukast Sodium 10 Mg Tablet PO 10/14/24 08:59 10 mg QAM OMAYRA Administration Multivitamins/Minerals 1 tab 09/14/24 09:00 09/22/24 07:47 Cerovite Adv Formula Tab PO 10/14/24 08:59 1 tab DAILY OMAYRA Administration Pantoprazole Sodium 40 mg 09/14/24 09:00 09/22/24 07:47 Pantoprazole 40 Mg Tab PO 10/14/24 08:59 40 mg DAILY OMAYRA Administration Polyethylene Glycol 17 gm 09/13/24 18:12 09/20/24 07:54 Polyethylene (Miralax) 17 Gm Pack PO 10/13/24 18:11 17 gm DAILY PRN Administration Constipation Potassium Chloride 40 meq 09/14/24 09:00 09/22/24 07:53 Potassium Chloride Crtab 20 Meq Tabcr PO 10/14/24 08:59 40 meq QAM OMAYRA Administration Spironolactone 12.5 mg 09/14/24 09:00 09/22/24 07:45 Spironolactone 12.5 Mg Tab PO 10/14/24 08:59 12.5 mg DAILY OMAYRA Administration Theophylline 100 mg 09/13/24 21:00 09/22/24 07:44 Theophylline 400 Mg Extended Rel Tab PO 10/13/24 20:59 100 mg BID OMAYRA Administration Torsemide 40 mg 09/20/24 17:00 09/21/24 08:34 Torsemide 20 Mg Tab PO 10/20/24 16:59 40 mg BIDM OMAYRA Administration Umeclidinium/Vilanterol 1 puffs 09/14/24 09:00 09/22/24 07:44 Umeclidinium/Vilanterol 62.5/25mcg 7 Puffs/Inhaler INH 10/14/24 08:59 1 puffs DAILY OMAYRA Administration Protocol Warfarin Sodium 5 mg 09/21/24 16:00 09/22/24 15:25 Warfarin Sod 5 Mg Tab PO 10/21/24 15:59 5 mg DAILY@1600 OMAYRA Administration
[2024-09-23 08:24] LABS: INR 2.3 (0.9-1.1)
[2024-09-23] MEDS: ENALAPRIL MALEATE 5 MG TAB PO SCH (09:00)
--- NOTE | 2024-09-23 17:38 | Hospitalist Progress Note ---
Date of Service September 23, 2024 Assessment & Plan (1) Acute on chronic heart failure with preserved ejection fraction: (2) Acute on chronic respiratory failure with hypoxia and hypercapnia: (3) Acute exacerbation of chronic obstructive pulmonary disease (COPD): (4) Pulmonary hypertension: (5) Obesity hypoventilation syndrome: (6) Chronic a-fib: (7) DM II (diabetes mellitus, type II), controlled: (8) Anticoagulant long-term use: (9) O2 dependent: Plan: 3 L baseline at home (10) COPD (chronic obstructive pulmonary disease): (11) Morbid obesity: Plan Mr. Méndez is a 69 year old with PMHx significant for chronic diastolic heart failure, A-fib/history DVT on Coumadin, valvular heart disease, hypertension, hyperlipidemia, chronic respiratory failure secondary to pulmonary hypertension, COPD, OHS on BiPAP, DM2, chronic anemia presenting from home with trouble breathing and found to be in acute on chronic HFpEF. Patient improving overall and feels like he is close to normal. He denies any new concerns. Patient awaiting discharge to [facility]. #Acute on chronic respiratory failure with hypoxia and hypercarbia *improved #Obesity hypoventilation syndrome #Acute COPD exacerbation *resolved On 3 L home oxygen No bnp this admission Chest x-ray concerning for fluid overload Continue home nebulized bronchodilators Continue with BiPAP with naps and qhs completed Prednisone for a 5-day course EOT 09/21 and continue nebs Clinically little better and would continue current management Continue diuersis as follows Continue montelukast #Acute on chronic heart failure with preserved EF #Severe pulm HTN ECHO 06/2024 60-65% presented with BLE edema, and elevated weight, dry weight approximately 136 kg continue Jardiance Monitor I's and O's, daily weights Spironolactone 12.5mg daily continued home enalapril, temp increased to 5mg daily however liable BP therefore back to 2.5mg Resume home torsemide as able, currently on hold due to labile BP. successful void trial #Buttock skin changes POA #Rleg wound POA Wound nurse consult Continue with the wound care, encourage mobilization Healing well #Atrial fibrillation with slow ventricular response #Hx of bradycardia EKG noting A-fib with slow ventricular response Coreg d/c previously 2/2 bradycardia patient currently supratherapeutic anticoagulated with warfarin, hold Coumadin continue theophylline for off label bradycardia Continue other home meds as ordered CODE STATUS: Full code per discussion with patient Diet: Heart healthy, DM2 with fluid restriction of 2000 mL Dispo to rehab when bed available Admission and Anticipated Discharge Date Admission Date: September 13, 2024 Subjective Patient in good spirits, does not wish to go to any other facility outside of [facility] Denies any sob, chest pain palpitations or other acute concerns working progressively with pt/ot. Physical Exam Physical Exam: Constitutional: Alert, sitting in chair HEENT: Mucous membranes moist. Lungs: Decreased breath sounds 2/2 habitus. no crackles appreciated. CV: S1-S2, regular Abdomen: Soft, nontender Extremities: stable nonpitting edema of BLE with dusky discoloration consistent with venosus stasis Neuro: No focal deficits, global weakness Psych: Cooperative, normal mood Results & Data Results & Data Vital Signs (Past 12 Hours) Vital Signs Temp Pulse Pulse Resp BP Pulse Ox O2 Del Method 09/23/24 15:14 68 18 98 Nasal Cannula 09/23/24 15:12 36.8 C 70 18 95/57 L 98 Nasal Cannula 09/23/24 15:00 66 09/23/24 11:25 37.4 C 93 H 20 119/75 97 Nasal Cannula 09/23/24 11:02 78 18 97 Nasal Cannula 09/23/24 09:00 Nasal Cannula 09/23/24 08:03 36.6 C 65 20 131/67 98 Nasal Cannula 09/23/24 07:29 68 16 96 Nasal Cannula 09/23/24 06:55 44 L O2 Flow Rate 09/23/24 15:14 2 09/23/24 15:12 2 09/23/24 15:00 09/23/24 11:25 2 09/23/24 11:02 2 09/23/24 09:00 2 09/23/24 08:03 2 09/23/24 07:29 2 09/23/24 06:55
[2024-09-24 06:22] LABS: BUN Creatinine Ratio 64.3 (10-20); Calcium 8.8 mg/dl (8.6-10.3); Creatinine Clr Calc Pharmacy 144.6 ml/min; Magnesium 2.2 mg/dl (1.7-2.4); Phosphorus 3.1 mg/dl (2.5-4.9); Potassium 4.5 mmol/L (3.5-5.1)
[2024-09-24] MEDS ORDERED: TORSEMIDE 20 MG TAB PO SCH (09:00)
--- NOTE | 2024-09-24 15:11 | Hospitalist Progress Note ---
Date of Service September 24, 2024 Assessment & Plan (1) Acute on chronic heart failure with preserved ejection fraction: (2) Acute on chronic respiratory failure with hypoxia and hypercapnia: (3) Acute exacerbation of chronic obstructive pulmonary disease (COPD): (4) Pulmonary hypertension: (5) Obesity hypoventilation syndrome: (6) Chronic a-fib: (7) DM II (diabetes mellitus, type II), controlled: (8) Anticoagulant long-term use: (9) O2 dependent: Plan: 3 L baseline at home (10) COPD (chronic obstructive pulmonary disease): (11) Morbid obesity: Plan Mr. Méndez is a 69 year old with PMHx significant for chronic diastolic heart failure, A-fib/history DVT on Coumadin, valvular heart disease, hypertension, hyperlipidemia, chronic respiratory failure secondary to pulmonary hypertension, COPD, OHS on BiPAP, DM2, chronic anemia presenting from home with trouble breathing and found to be in acute on chronic HFpEF. Patient improving overall and feels like he is close to normal. He denies any new concerns. Patient awaiting discharge to [facility]. #Acute on chronic respiratory failure with hypoxia and hypercarbia *improved #Obesity hypoventilation syndrome #Acute COPD exacerbation *resolved On 3 L home oxygen No bnp this admission Chest x-ray concerning for fluid overload Continue home nebulized bronchodilators Continue with BiPAP with naps and qhs completed Prednisone for a 5-day course EOT 09/21 and continue nebs Clinically little better and would continue current management Continue montelukast #Acute on chronic heart failure with preserved EF #Severe pulm HTN ECHO 06/2024 60-65% presented with BLE edema, and elevated weight, dry weight approximately 136 kg continue Jardiance Monitor I's and O's, daily weights Spironolactone 12.5mg daily continued home enalapril, temp increased to 5mg daily however liable BP therefore back to 2.5mg Resume torsemide at low dose of 20 mg daily, earlier was on 40 mg bid this adm ission and was on hold due to labile BP. successful void trial #Buttock skin changes POA #Rleg wound POA Wound nurse consult Continue with the wound care, encourage mobilization Healing well #Atrial fibrillation with slow ventricular response #Hx of bradycardia EKG noting A-fib with slow ventricular response Coreg d/c previously 2/2 bradycardia patient currently supratherapeutic anticoagulated with warfarin, hold Coumadin continue theophylline for off label bradycardia Continue other home meds as ordered CODE STATUS: Full code per discussion with patient Diet: Heart healthy, DM2 with fluid restriction of 2000 mL Dispo to rehab when bed available Admission and Anticipated Discharge Date Admission Date: September 13, 2024 Subjective Patient in good spirits, does not wish to go to any other facility outside of [facility] Denies any sob, chest pain palpitations or other acute concerns working progressively with pt/ot. Physical Exam Physical Exam: Constitutional: Alert, sitting in chair HEENT: Mucous membranes moist. Lungs: Decreased breath sounds 2/2 habitus. no crackles appreciated. CV: S1-S2, regular Abdomen: Soft, nontender Extremities: stable nonpitting edema of BLE with dusky discoloration consistent with venosus stasis Neuro: No focal deficits, global weakness Psych: Cooperative, normal mood Results & Data Results & Data Vital Signs (Past 12 Hours) Vital Signs Temp Pulse Pulse Resp BP BP Pulse Ox 09/24/24 14:20 73 09/24/24 14:08 69 18 98 09/24/24 11:52 36.9 C 57 L 18 104/61 96 09/24/24 11:12 68 18 98 09/24/24 07:40 09/24/24 07:10 36.7 C 62 18 123/67 97 09/24/24 07:07 65 18 97 09/24/24 07:00 55 L 09/24/24 03:50 36.5 C 62 16 133/69 99 09/24/24 03:47 55 L 20 96 O2 Del Method O2 Flow Rate 09/24/24 14:20 09/24/24 14:08 Nasal Cannula 2 09/24/24 11:52 Nasal Cannula 2 09/24/24 11:12 Nasal Cannula 2 09/24/24 07:40 Nasal Cannula 2 09/24/24 07:10 Nasal Cannula 3 09/24/24 07:07 Nasal Cannula 2 09/24/24 07:00 09/24/24 03:50 CPAP 2 09/24/24 03:47 3
[2024-09-25 06:40] LABS: BUN Creatinine Ratio 47.1 (10-20); Calcium 8.8 mg/dl (8.6-10.3); Magnesium 2.2 mg/dl (1.7-2.4); Potassium 4.5 mmol/L (3.5-5.1)
[2024-09-25] MEDS: TORSEMIDE 20 MG TAB PO SCH (07:33)
--- NOTE | 2024-09-25 16:25 | Hospitalist Progress Note ---
Date of Service September 25, 2024 Assessment & Plan (1) Acute on chronic heart failure with preserved ejection fraction: (2) Acute on chronic respiratory failure with hypoxia and hypercapnia: (3) Acute exacerbation of chronic obstructive pulmonary disease (COPD): (4) Pulmonary hypertension: (5) Obesity hypoventilation syndrome: (6) Chronic a-fib: (7) DM II (diabetes mellitus, type II), controlled: (8) Anticoagulant long-term use: (9) O2 dependent: Plan: 3 L baseline at home (10) COPD (chronic obstructive pulmonary disease): (11) Morbid obesity: Plan Mr. Méndez is a 69 year old with PMHx significant for chronic diastolic heart failure, A-fib/history DVT on Coumadin, valvular heart disease, hypertension, hyperlipidemia, chronic respiratory failure secondary to pulmonary hypertension, COPD, OHS on BiPAP, DM2, chronic anemia presenting from home with trouble breathing and found to be in acute on chronic HFpEF. Patient improving overall and feels like he is close to normal. He denies any new concerns. Patient awaiting discharge to [facility]. #Acute on chronic respiratory failure with hypoxia and hypercarbia *improved #Obesity hypoventilation syndrome #Acute COPD exacerbation *resolved On 3 L home oxygen No bnp this admission Chest x-ray concerning for fluid overload Continue home nebulized bronchodilators Continue with BiPAP with naps and qhs completed Prednisone for a 5-day course EOT 09/21 and continue nebs Clinically better and would continue current management Continue montelukast #Acute on chronic heart failure with preserved EF #Severe pulm HTN ECHO 06/2024 60-65% presented with BLE edema, and elevated weight, dry weight approximately 136 kg continue Jardiance Monitor I's and O's, daily weights Spironolactone 12.5mg daily continued home enalapril, temp increased to 5mg daily however liable BP therefore back to 2.5mg Resumed torsemide at low dose of 20 mg daily 09/24, earlier was on 40 mg bid this admission and was on hold due to labile BP. Currently BP holding up. successful void trial #Buttock skin changes POA #Rleg wound POA Wound nurse consult Continue with the wound care, encourage mobilization Healing well #Atrial fibrillation with slow ventricular response #Hx of bradycardia EKG noting A-fib with slow ventricular response Coreg d/c previously 2/2 bradycardia patient currently supratherapeutic anticoagulated with warfarin, hold Coumadin continue theophylline for off label bradycardia Continue other home meds as ordered CODE STATUS: Full code per discussion with patient Diet: Heart healthy, DM2 with fluid restriction of 2000 mL Dispo: pt improving w/ PT activity, pt states he will d/w his DIL to see if he still wants rehab or wants to go home. Admission and Anticipated Discharge Date Admission Date: September 13, 2024 Subjective Patient in good spirits, does not wish to go to any other facility outside of [facility] Denies any sob, chest pain palpitations or other acute concerns working progressively with pt/ot. Physical Exam Physical Exam: Constitutional: Alert, sitting in chair HEENT: Mucous membranes moist. Lungs: Decreased breath sounds 2/2 habitus. no crackles appreciated. CV: S1-S2, regular Abdomen: Soft, nontender Extremities: stable nonpitting edema of BLE with dusky discoloration consistent with venosus stasis Neuro: No focal deficits, global weakness Psych: Cooperative, normal mood Results & Data Results & Data Vital Signs (Past 12 Hours) Vital Signs Temp Pulse Pulse Resp BP Pulse Ox O2 Del Method 09/25/24 15:06 64 18 96 Nasal Cannula 09/25/24 14:52 37.2 C 59 L 18 119/57 L 96 Nasal Cannula 09/25/24 14:25 65 09/25/24 11:14 37.7 C H 76 18 97/66 L 96 Nasal Cannula 09/25/24 11:07 89 18 98 Nasal Cannula 09/25/24 08:00 Nasal Cannula 09/25/24 07:27 36.9 C 52 L 18 137/64 96 Nasal Cannula 09/25/24 07:21 68 20 99 Nasal Cannula 09/25/24 07:00 54 L O2 Flow Rate 09/25/24 15:06 1 09/25/24 14:52 2 09/25/24 14:25 09/25/24 11:14 2 09/25/24 11:07 2 09/25/24 08:00 3 09/25/24 07:27 2 09/25/24 07:21 3 09/25/24 07:00
[2024-09-26 07:09] LABS: INR 1.3 (0.9-1.1); Prothrombin Time 14.1 Seconds (9.0-12.0)
[2024-09-26] MEDS: WARFARIN SOD 3 MG TAB PO ONE (09:02)
--- NOTE | 2024-09-26 11:54 | Discharge Summary ---
Date of Service September 26, 2024 Admission HPI Per Admitting Provider Patient is a 69-year-old gentleman morbidly obese on chronic oxygen therapy and known severe pulmonary hypertension and heart failure preserved ejection fraction. Recently discharged from the hospital for decompensated heart failure and has been at home since then. Comes to the emergency room with complaints as noted above. Evaluation in the emergency room was consistent with decompensated heart failure with severe edema and congestion on chest x-ray. Referred to our service for further evaluation. Time my evaluation patient's already put out over a liter of fluid with 40 of Lasix. Barron catheter is in place. He reports that he has been compliant with his medications. He states he has been attempting to be compliant with fluid and salt restriction. He does state he is being eating a lot of sweets. When asked if he is notices been gaining weight he does admit to weighing himself regularly and states that he has maybe gained 25 pounds since he left the hospital. This is accurate based on our weights recorded at the time of discharge and today. He states that he thought he was just gaining weight because all the extra food he was eating. He did not really think it was due to water weight. He had did not contact his medical providers. Denies any fever or chills. He has chronic inhalers and wheezing. He states home nursing has been checking in on him. He said a week or 2 ago the entire family had upper respiratory infection symptoms. He was treated with prednisone and a Z-Juan. His shortness of breath got a little bit better but it continued to progress over the last week or 2. No new problems with his bowels or bladder. No chest pain or palpitations. Admission Exam Per Admitting Provider Constitutional: Alert, ill in appearance, nontoxic, mild respiratory distress HEENT: Mucous membranes moist. Sclera clear Neck: Soft, no adenopathy Lungs: Decreased breath sounds, prolonged expiratory phase, few expiratory wheezes, Rales at bases CV: S1-S2, irregular Abdomen: Nontender, nondistended, no guarding, no rigidity, edema and abdominal pannus Extremities: Thick hard edema in the lower extremities, edema in upper thighs and dependent portions of sacrum and abdomen. Lower extremities ruborous due to edema Musculoskeletal: No significant joint tenderness Neuro: No focal deficits Psych: Cooperative, normal mood Principal Diagnosis Acute on chronic respiratory failure with hypoxia and hypercarbia, improved Obesity hypoventilation syndrome, history of Acute COPD exacerbation, improved Acute on chronic heart failure with preserved ejection fraction, stable Severe pulmonary hypertension Discharge Exam Constitutional: Alert, sitting in chair HEENT: Mucous membranes moist. Lungs: Decreased breath sounds 2/2 habitus. no crackles appreciated. CV: S1-S2, regular Abdomen: Soft, nontender Extremities: stable nonpitting edema of BLE with dusky discoloration consistent with venosus stasis Neuro: No focal deficits, global weakness Psych: Cooperative, normal mood Discharge Data Allergies Allergy/AdvReac Type Severity Reaction Status Date / Time No Known Allergies Allergy Verified 09/13/24 15:45 Ordered Studies 09/17/24 00:50 CT head/brain wo con Stat Hospital Course (1) Acute on chronic heart failure with preserved ejection fraction: (2) Acute on chronic respiratory failure with hypoxia and hypercapnia: (3) Acute exacerbation of chronic obstructive pulmonary disease (COPD): (4) Pulmonary hypertension: (5) Obesity hypoventilation syndrome: (6) Chronic a-fib: (7) DM II (diabetes mellitus, type II), controlled: (8) Anticoagulant long-term use: (9) O2 dependent: 3 L baseline at home (10) COPD (chronic obstructive pulmonary disease): (11) Morbid obesity: Plan Mr. Méndez is a 69 year old with PMHx significant for chronic diastolic heart failure, A-fib/history DVT on Coumadin, valvular heart disease, hypertension, hyperlipidemia, chronic respiratory failure secondary to pulmonary hypertension, COPD, OHS on BiPAP, DM2, chronic anemia presenting from home with trouble breathing and found to be in acute on chronic HFpEF. Patient improving overall and feels like he is close to normal. He denies any new concerns. PT cleared him for home, pt would like to go home. #Acute on chronic respiratory failure with hypoxia and hypercarbia *improved #Obesity hypoventilation syndrome #Acute COPD exacerbation *resolved On 3 L home oxygen No bnp this admission Chest x-ray concerning for fluid overload Continue home nebulized bronchodilators Continue with BiPAP with naps and qhs completed Prednisone for a 5-day course EOT 09/21 and continue nebs Clinically better and would continue current management Continue montelukast #Acute on chronic heart failure with preserved EF #Severe pulm HTN ECHO 06/2024 60-65% presented with BLE edema, and elevated weight, dry weight approximately 136 kg continue Jardiance Monitor I's and O's, daily weights Spironolactone 12.5mg daily continued home enalapril, temp increased to 5mg daily however liable BP therefore back to 2.5mg Resumed torsemide at low dose of 20 mg daily 09/24, earlier was on 40 mg bid this admission and was on hold due to labile BP. Currently BP holding up, will keep dose at 20 mg daily. successful void trial Pt to f/u w/ cardiology and pulmonology on discharge in 2-4 weeks of discharge. Pt has been made aware and he voiced understanding. #Buttock skin changes POA #Rleg wound POA Wound nurse consult Continue with the wound care, encourage mobilization Healing well Follow up with wound care on discharge. #Atrial fibrillation with slow ventricular response #Hx of bradycardia EKG noting A-fib with slow ventricular response Coreg d/c previously 2/2 bradycardia patient currently supratherapeutic anticoagulated with warfarin, hold Coumadin continue theophylline for off label bradycardia Continue other home meds as ordered CODE STATUS: Full code per discussion with patient Diet: Heart healthy, DM2 with fluid restriction of 2000 mL Patient is being discharged home with home health with following instruction at the point of discharge: Follow-up with your primary care physician within a week time and likely you will need labs CBC/CMP/magnesium/phosphorus. You were treated for acute exacerbation of your COPD, which is currently stable. Continue with your BiPAP as prior. You were also treated for acute on chronic heart failure, recommend that you establish with a heart doctor in 1 to 2 weeks time upon discharge, coordinate with your PCP office to set up the referral/appointment. Continue to follow-up with wound care clinic upon discharge. Coordinate with your PCP office if not already set up. You will benefit from establishing with pulmonology in 2 to 4 weeks time upon discharge for your history of COPD and severe pulmonary hypertension. Coordinate with your PCP office to set up the referral. Because of your high INR while in hospital, your warfarin dose has been decreased. Continue to take 10 mg daily warfarin from today afternoon. Recommend that you follow-up with Coumadin clinic on Saturday (in 2 days of discharge) to make sure that your PT/INR and Coumadin are properly adjusted for. Take your medications as prescribed. Please make sure that you are able to get your medications today by calling your pharmacy before you leave the hospital so that your treatment continuity is not broken. Home Health Attestation I certify that this patient is under my care and that I, or a physicians employment assistant working with me, had a face to-face encounter that meets the home health [id number] encounter requirements with this patient. The encounter with the patient was in whole, or in part, for the following medical condition, which is the primary reason for home health care (list medical condition): I certify that, based on my findings, the following services are medically necessary home health services: My clinical findings support the need for the above services because: Further, I certify that my clinical findings support that this patient is homebound (i.e. absences from home require considerable and taxing effort and are for medical reasons or yarsani services or infrequently or of short duration when for other reasons) because: Certification for Home Health Services: Based on the above findings, I certify that this patient is confined to the home and needs intermittent custodial care, physical therapy and/or speech therapy or continues to need occupational therapy. The patient is under my care, and I have initiated the establishment of the plan of care. This patient will be followed by a physician who will periodically review the plan of care. Total Time Total Time Spent Total Time Spent (In Minutes): 45 Discharge Plan Discharge Items Patient Disposition: Home - Home Health Services Reason For Visit: CHF Discharge Diagnosis: Acute on chronic respiratory failure with hypoxia and hypercarbia, improved Obesity hypoventilation syndrome, history of Acute COPD exacerbation, improved Acute on chronic heart failure with preserved ejection fraction, stable Severe pulmonary hypertension Activity: As commented below Activity Comment: Continue with home health physical therapy Non-emergency contact: Primary Care Provider Call non-emergency contact if: you have any medication questions, your symptoms worsen and your temperature is above 101 Follow-up/Referrals: Charley Crane MD [Primary Care Provider] - Diet: Carb Consistent or DM2 and Low Sodium (2gm) Fluids: 2000ml (8 cups) Addtl Attending Provider Instructions: Follow-up with your primary care physician within a week time and likely you will need labs CBC/CMP/magnesium/phosphorus. You were treated for acute exacerbation of your COPD, which is currently stable. Continue with your BiPAP as prior. You were also treated for acute on chronic heart failure, recommend that you establish with a heart doctor in 1 to 2 weeks time upon discharge, coordinate with your PCP office to set up the referral/appointment. Continue to follow-up with wound care clinic upon discharge. Coordinate with your PCP office if not already set up. You will benefit from establishing with pulmonology in 2 to 4 weeks time upon discharge for your history of COPD and severe pulmonary hypertension. Coordinate with your PCP office to set up the referral. Because of your high INR while in hospital, your warfarin dose has been decreased. Continue to take 10 mg daily warfarin from today afternoon. Recommend that you follow-up with Coumadin clinic on Saturday (in 2 days of discharge) to make sure that your PT/INR and Coumadin are properly adjusted for. Take your medications as prescribed. Please make sure that you are able to get your medications today by calling your pharmacy before you leave the hospital so that your treatment continuity is not broken. Pending Studies at Discharge: No Stand-Alone Forms: My [facility] [place], Smoking Cessation Medications and DC Order Prescriptions: New potassium chloride 20 mEq Tablet,Er Particles/Crystals 20 meq PO QAM Qty: 30 0RF torsemide 20 mg Tablet 20 mg PO QAM Qty: 30 0RF Continued pantoprazole 40 mg Tablet,Delayed Release (Dr/Ec) 40 mg PO DAILY Centrum Silver Men [id number] mcg Tablet 1 tab PO DAILY Rx Instructions: Unable to verify OTC meds at this date/time. empagliflozin 10 mg Tablet 10 mg PO QAM Trelegy Ellipta 100-62.5-25 mcg Blister With Device 1 inh INHALATION DAILY atorvastatin 80 mg tablet 80 mg PO QAM albuterol sulfate 90 mcg/actuation Hfa Aerosol Inhaler 2 puff INHALATION Q6H PRN (Reason: Shortness Of Breath Or Wheezing) fluticasone propionate 50 mcg/actuation [place],Suspension 2 spray INTRANASAL DAILY Rx Instructions: Unable to verify OTC meds at this date/time. spironolactone 25 mg Tablet 12.5 mg PO DAILY Qty: 30 0RF sodium chloride 7 % Solution For Nebulization 4 ml NEB BIDR Qty: 120 0RF ipratropium-albuterol 0.5 mg-3 mg(2.5 mg base)/3 mL solution for nebulization 3 ml INHALATION Q6H Qty: 0 0RF montelukast 10 mg tablet 10 mg PO QAM enalapril maleate 5 mg Tablet 2.5 mg PO DAILY Qty: 30 0RF diclofenac sodium [Voltaren Arthritis Pain] 1 % Gel 4 g EXT BID Qty: 100 0RF guaifenesin [Mucinex] 600 mg Tablet Extended Release 12hr 1,200 mg PO Q12 Qty: 60 0RF theophylline 400 mg Tablet Extended Release 24 Hr 100 mg PO BID Qty: 60 0RF Changed warfarin 10 mg Tablet 10 mg PO DAILY Qty: 30 0RF Discontinued carvedilol 3.125 mg Tablet 3.125 mg PO BIDM Qty: 60 0RF warfarin 5 mg Tablet 15 mg PO [id number] Qty: 30 0RF Discharge Orders: Discharge Order (Routine); Ordered 09/26/24 Ordered By: Cori Rothman Admission Data Admit Date/Time: 09/13/24 16:20 Attending Provider: Cori Rothman Admit Provider: Yfn Landis Primary Care Provider: Charley Crane Other Providers: [facility]; [facility]
[2024-09-26 13:00] VITALS: BP 156/78; PULSE 98; RESP 16; TEMP 97.9; O2SAT 91
== END 2024-09-26 14:30 | disposition home health service (06) | DRG 291 ==
LOC: ED 13:30 → 2W 16:20 → SUATTDRO 16:20 → 2W 17:32

== ENCOUNTER 2024-10-21 20:48 | Inpatient (IN) ==
--- OUTSIDE RECORDS SUMMARY | 2024-10-21 20:56 | External Medical Summary | Summary of Care ---
Author Name Unknown Organization [facility] Address [address] [place] [facility] [place] [address] Phone [phone] Care Team Providers Care Design Release Engineer Name Role Phone Charley Crane MD Primary Care Provider [phone] Reason for Visit * Reason Onset Date Comments [facility]: Maintenance 10/20/2024 Encounter Details Date Type Department Care Team (Late st Contact Info) Description 10/20/2024 11:00 AM EST Scheduled Telephone [facility], [facility] [address] [facility] [place] [address] [facility], Nurse [facility] [address] [place] [address] Allergies Active Allergy Reactions Criticality Noted Date Comments Cephalexin Other (Please comment) 08/03/2024 Taking it effect his warfarin documented as of this encounter (statuses as of 10/20/2024) Medications Centrum Silver 50+Men Oral Tablet Take 1 Tablet by mouth daily. Active oxygen IN GAS Use 3 L/min(Oxygen) as directed continuous. Uses 2.5 LPM at night with BIPAP and as needed during the day Active BiPAP every night at bedtime. Active Torsemide 20 MG Oral Tablet (Demadex) Take 2 tablets by mouth once daily 180 Tablet 3 01/20/20 Active Additional Information Patient taking differently: 20 mg Oral BID (0700,1900), (No instructions reported), Reported on 10/12/2024 Albuterol Sulfate HFA 108 (90 Base) MCG/ACT Inhalation Aerosol Solution Inhale 2 Puffs by mouth every 6 hours as needed for Shortness of Breath or Wheezing. 54 g 1 01/20/20 24 Active Atorvastatin Calcium 80 MG Oral Tablet (Lipitor)Indicati ons:Dyslipidemia, goal LDL below 70 Take 1 Tablet by mouth in the morning. 90 Tablet 3 02/12/20 24 Active Pantoprazole Sodium 40 MG Oral Tablet Delayed Release (Protonix) TAKE 1 TABLET BY MOUTH EVERY MORNING 90 Tablet 1 05/25/20 24 Active Montelukast Sodium 10 MG Oral [...] morning and 1 Tablet before bedtime. Active Warfarin Sodium 10 MG Oral Tablet [...] tions:COPD, group D, by GOLD 2017 classification ([facility]) Take 2 Tablets by mouth in the morning. For 5 days. Rescue kit. Use only as instructed. 10 Tablet 09/08/20 24 Active Spironolactone 25 MG Oral Tablet (Aldactone) Take 1 Tablet by mouth in the morning. 90 Tablet 3 09/10/20 24 Active Additional Information Patient taking differently: 12.5 mgOral Daily(AM), Reported on 10/12/2024 Jardiance 10 MG Oral Tablet (Empagliflozin) TAKE 1 TABLET BY MOUTH EVERY MORNING 90 Tablet 1 09/10/20 24 Active Azithromycin 250 MG Oral Tablet (Zithromax Z-Juan)Indications :COPD, group D, by GOLD 2017 classification ([facility]) Take two tablets by mouth on first day, then 1 tablet daily until gone 6 Tablet 09/10/20 24 Active Potassium Chloride ER 20 MEQ Oral Tablet Extended Release Take 1 Tablet by mouth in the morning. Active Diclofenac Sodium 1 % External Gel (Voltaren) Apply 1 Application topically to affected area in the morning and 1 Application before bedtime. Apply to knees and shoulders. 100 g 1 09/28/20 24 Active Enalapril Maleate 5 MG Oral Tablet (Vasotec) TAKE 1/2 TABLET BY MOUTH ONCE DAILY 30 Tablet 11 10/01/20 24 Active Fluticasone Propionate 50 MCG/ACT Nasal Suspension (Flonase) Administer 2 Sprays into each nostril in the morning. 16 g 3 10/06/20 24 Active Ipratropium-Albut blaire 0.5-2.5 (3) MG/3ML Inhalation Solution (Duoneb) inhale contents of 1 vial in nebulizer every 6 hours if needed for shortness of breath 360 mL 3 10/06/20 24 Active Trelegy Ellipta 100-62.5-25 MCG/ACT Aerosol Powder Breath Activated (Fluticasone-Umec lidinium-Vilanter ol) Inhale 1 Puff by mouth in the morning. 180 Blister Dosing Unit 3 10/06/20 24 Active Carvedilol 3.125 MG Oral Tablet (Coreg) Take 1 Tablet by mouth in the morning and 1 Tablet before bedtime. With food. 180 Tablet 3 10/06/20 24 Active documented as of this encounter (statuses as of 10/20/2024) Active Problems Problem Noted Date Diagnosed Date Stage 3 chronic kidney disease 06/15/2024 Hypertensive heart disease w ith chronic diastolic congestive heart failure 06/15/2024 Assessment & Plan (10/13/2024 12:36 PM EST): "RED FLAG" HF Symptoms: Leg Swelling Abdominal [...] Lasix dose: 100 mg BMP Additional Comments: Torsemide now at 40mg daily Weigh daily, low sodium diet Assessment & Plan (07/01/2024 9:44 AM EDT): [...] classification 11/04 Overview: Per COPD GOLD Classification Assessment & Plan (10/13/2024 12:36 PM EST): "RED FLAG" COPD symptoms: Increased dyspnea on exertion Cough Wheezing Medication Regimen All Classes - JULIA Class D - Inhaled Jmrrwpzccogtdt-WONU-GDBO Combination Inhaler (Trellegy) Theophylline Remote Patient Monitoring Vendor: No Connected RPM Device(s): Traditional Scale Traditional Pulse Ox Self-Management plan Prednisone 40mg daily for 5 days Rx Oral Antibiotic Rx (see medication list) High frequency nebulizer treatments every 4-6 hours around the clock Exacerbation plan Chest Xray Additional Comments: Breathing at baseline today Has 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 0 2023 Longstanding persistent atrial fibrillation 06/29 Assessment & Plan (07/01/2024 9:45 AM EDT): Rate controlled Continue coumadin Hypertension goal BP (blood pressure) < 130/80 0 07/17/2023 Dyslipidemia, goal LDL below 70 07/17/2023 Atherosclerosis of [place] co ronary artery without angina pectoris 07/05/2023 BiPAP (biphasic positive airway pressure) depend ence 07/05/2023 PHT (pulmonary hypertension) 07/04/2023 Tobacco abuse, in remission 07/04/2023 Chronic respiratory failure with hypoxia and hyp ercapnia 07/04/2023 Assessment & Plan (10/13/2024 12:36 PM EST): Continuous o2 at 2.5-3L Assessment & Plan (07/01/2024 9:37 AM EDT): [...] as of this encounter (statuses as of 10/20/2024) Resolved Problems Problem Noted Date Diagnosed Date [...] Classes - JULIA Class D - Inhaled Zwnsdifzlqjdib-FXUE-KPIN Combination Inhaler (Sandro) Remote Patient Monitoring Vendor: Current Health Device(s): Continuous Monitoring Device Traditional Scale Self-Management plan High frequency nebulizer treatments every 4-6 hours around the clock Exacerbation plan Chest Xray Additional Comments: On continuous o2 2-3lpm Bipap at night Body mass index (BMI) of 40. 0 to 44.9 in adult 07/08/2023 07/09/2024 Overview: Per Obesity protocol Atherosclerosis of [place] co ronary artery without angina pectoris 07/05/2023 08/29/2023 Dyspnea 07/04/2023 08/13/2023 Occupational exposure in workplace 07/04/2023 02/14/2024 Chronic congestive heart failure 06/08/2023 07/05/2023 COPD, severe 06/08/2023 07/11/2023 Overview: Per COPD GOLD Classification Chronic hypoxemic respiratory failure 06/08/2023 07/04/2023 Chronic respiratory failure with hypoxia, on home oxygen therapy 06/08/2023 08/29/2023 Diabetes mellitus without complication 06/08/2023 08/29/2023 documented as of this encounter (statuses as of 10/20/2024) Immunizations Name Administration Dates Next Due Pneumococcal [...] the money to buy more. Never true 10/12/20 24 Within the past 12 months, t he food you bought just didn't last and you didn't have money to get more. Never true 10/12/2024 Childcare Answer Date Recorded Do you feel overwhelmed with taking care of a child, family member or friend? No 10/12/2024 Does your family need help f inding childcare? (Household - for ages 0-17 years) Not on file 10/12/2024 Clothing Answer Date Recorded Have you been unable to get clothing when it was really needed? No 10/12/2024 Is your family able to get c lothes or diapers when needed? (Household - for ages 0-17 years) Not on file 10/12/2024 Personal Safety Answer Date Recorded Do you feel unsafe or have concerns for your saf ety? No 10/12/2024 Do you have concerns for you r family's safety? (Household - for ages 0-17 years) Not on file 10/12/2024 Utilities Answer Date Recorded Do you have trouble paying y our heating, water, or electric bill? No 10/12/2024 Is your family able to pay t he heat, water, or electric bill? (Household - for ages 0-17 years) Not on file 10/12/2024 Does your family have access to good internet? (Household - for ages 0-17 years) Not on file 10/12/2024 Employment Status Answer Date Recorded Are you unemployed or without regular income? No 10/12/2024 Does the household have a re lar source of income? (Household - for ages 0-17 years) Not on file 10/12/2024 Social Connections Answer Date Recorded How often do you feel lonely or isolated from th ose around you? Always 10/12/2024 Financial Resource Strain Answer Date R ecorded Do you have any trouble payi ng for your medications, or do you think you might in the future? No 10/12/2024 Does your family have troubl e paying for medicine? (Household - for ages 0-17 years) Not on file 10/12/2024 Transportation Needs Answer Date Record ed READ ONLY Do you have troubl e getting a ride to medical visits or work? Never True 10/12/2024 Does your family have a hard time getting a ride to doctors visits? (Household - for ages 0-17 years) Not on file 10/12/2024 Has lack of transportation k ept you from medical appointments, meetings, work, or from getting things needed for daily living? Check all that apply. Yes, it has kept me from medical appointments 10/12/2024 Do you (or your family) have trouble finding or paying for a ride (transportation)? (Household - for ages 0-17 years) Not on file 10/12/2024 Housing Stability Answer Date Recorded Do you currently live in a s helter or have no steady place to sleep at night? No 10/12/2024 READ ONLY Do you think you a re at risk of becoming homeless? No 10/12/2024 Does your family worry about paying for your home or becoming homeless? (Household - for ages 0-17 years) Not on file 1 12/13/2023 Are you homeless or worried that you might be in the future? No 10/12/2024 Are you (or your family) samantha eless or worried that you might be in the future? (Household - for ages 0-17 years) Not on file Food Insecurity Answer Date Recorded Do you need food for this week? No 10/12/2024 Are you able to get enough f ood for your family? (Household - for ages 0-17 years) Not on file 10/12/2024 Does your family need food t his week? (Household - for ages 0-17 years) Not on file 10/12/2024 Do you always have enough fo od for your family? (Household - for ages 0-17 years) Not on file 10/12/2024 Sex and Gender Information Value Date Recorded [...] Telephone Encounter - Alida Luciano RN - 10/20/2024 11:21 AM EST [facility] Telephonic Nurse Follow-Up Call [facility] Subprogram: [facility] Follow Up Call Type: Routine follow up call / Status Check Acute issue requiring follow-up call: Other: follow up on respiratory status. Did patient take a Home Covid test? Objective: 10/06/2024 3:03 PM 09/27/2024 2:41 PM 09/10/2024 10:14 AM 08/14/2024 10:53 AM 08/03/2024 1:53 PM VITALS ACROSS ENCOUNTERS BP 137/70 108/60 130/68 116/60 122/60 Pulse 87 68 68 68 66 Weight 133.8 kg 135.2 kg BMI 46.2 kg/m2 46.67 kg/m2 Remote Patient Monitoring: NONE Oxygen Needs: NO CHANGE from baseline supplemental oxygen needs DME Needs: Nebulizer machine and supplies Medications: New medication(s) added: Azithromycin started on 10/17, pt started prednisone 10/19 Subjective: Condition Status: UTC, message left requesting return call to [facility]. Current Concerns: Per triage note from yesterday evening, pt took home covid test which was negative, so he started prednisone as was previously discussed with [facility]. Disposition: Follow up call scheduled for 10/22 with RN. Future Visits Scheduled: Future Appointments-next 60 days Date/Time Provider Specialty Dept Phone 10/26/2024 7:15 AM [facility] Processing [phone] 10/26/2024 5:30 PM Michelle Kim RN [facility] [phone] 10/27/2024 6:00 AM [facility] [phone] Alida Luciano RN documented in this encounter Plan of Treatment Upcoming Encounters Date Type Department Care Team (Late st Contact Info) Description 10/22/2024 11:15 AM EST Scheduled Telephone [facility] [place], [facility] [address] [place] [address] [facility], Nurse [facility] [address] [facility] [place] [address] 10/26/2024 7:15 AM EST Laboratory Lab [facility]lebotomy [facility] [address] [place] [address] [facility] Draw [address] [facility] [place] [address] 10/26/2024 5:30 PM EST Home Visit [facility] [place], [facility] [address] [place] [address] Michelle Kim RN [address] [place] [address] 10/27/2024 6:00 AM EST Anticoagulation [facility], Oscar Peace [address] [place] [address] [place] [address] [facility], [address] [place] [address] Health Maintenance Due Date Last Done Comments Alpha-1 Antitrypsin 1974 CKD PHOS USE SMARTSET 90778 1974 DTap/Tdap Vaccines (1 - Tdap) 1975 Cologuard 2001 Colonoscopy 2001 Colorectal Cancer Screening 2001 Fecal Occult Blood Test 2001 Sigmoidoscopy 2001 AAA Screening 2021 COVID-19 Vaccine ( season) 2024 Influenza Vaccine (FLU shot) (#1) 2024 07/05/2023, 07/05/2023 HbA1c 12/16/2024 06/15/2024, 01/26, 06/21/2023 Adult Wellness Visit 02/09/2025 02/10/2024 Albumin/Creatinine Ratio 02/09/2025 02/10/2024 Depression Screening 02/09/2025 02/10/2024 GFR 04/12/2025 10/12/2024, 08/28, 06/15/2024, Additional history exists Diabetic Eye Exam 04/28/2025 04/28/2024, , 09/09/2023 Diabetic Foot Exam 06/15/2025 06/15/2024, 06/21/2023 O2 ASSESSMENT COMPLETED IN PAST YEAR FOR COPD 10/06/2025 10/06/2024 CKD HGB USE SMARTSET 32204 10/12/202510/12, 10/12/2024, 09/07/2024, Additional history exists Pneumococcal Vaccine: 65+ Years [...] filedocumented as of this encounter Care Teams Design Release Engineer Relationship Specialty Start Date End Date Charley Crane MD PCP - General Internal Medicine 06/04/23 documented as of this encounter
--- OUTSIDE RECORDS SUMMARY | 2024-10-21 20:56 | External Medical Summary | Summary of Care ---
Author Name Unknown Organization [facility] Address [address] [place] [address] Phone [phone] Care Team Providers Care Broadcast Chief Engineer Name Role Phone Charley Crane MD Primary Care Provider Reason for Visit * Reason Onset Date Comments Referral 10/19/2024 Cardio referral Encounter Details Date Type Department Care Team (Late st Contact Info) Description 10/19/2024 Telephone [facility] [address] [place] [address] Charley Crane MD [address] [place], [place] [id number] Referral (Cardio referral) Allergies Active Allergy Reactions Criticality Noted Date Comments Cephalexin Other (Please comment) 08/03/2024 Taking it effect his warfarin documented as of this encounter (statuses as of 10/19/2024) Medications Centrum Silver 50+Men Oral Tablet Take [...] 24 Active Additional Information Patient taking differently: 20 [...] tions:COPD, group D, by GOLD 2017 classification ([facility] [...] as of this encounter (statuses as of 10/19/2024) Active Problems Problem Noted Date Diagnosed Date [...] Classes - JULIA Class D - Inhaled Xvjivnelymxbtx-TYTH-UQWX Combination Inhaler (Trellegy) Theophylline Remote Patient Monitoring Vendor: No Connected RPM Device(s): Traditional Scale Traditional Pulse Ox Self-Management plan Prednisone 40mg daily for 5 days Rx Oral Antibiotic Rx (see medication list) High frequency nebulizer treatments every 4-6 hours around the clock Exacerbation plan Chest Xray Additional Comments: Breathing at baseline today 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 0 2023 Longstanding persistent atrial fibrillation 06/29 Assessment & Plan (07/01/2024 9:45 AM EDT): Rate controlled Continue coumadin Hypertension goal BP (blood pressure) < 130/80 0 07/17/2023 Dyslipidemia, goal LDL below 70 07/17/2023 Atherosclerosis of [place] co ronary artery without angina pectoris 07/05/2023 [...] as of this encounter (statuses as of 10/19/2024) Resolved Problems Problem Noted Date Diagnosed Date [...] Classes - JULIA Class D - Inhaled Azrojizawfyjvv-WOTS-EBQM Combination Inhaler (Sandro) Remote Patient Monitoring Vendor: Current Health Device(s): Continuous Monitoring Device Traditional Scale Self-Management plan High frequency nebulizer treatments every 4-6 hours around the clock Exacerbation plan Chest Xray Additional Comments: On continuous o2 2-3lpm Bipap at night Body mass index (BMI) of 40. 0 to 44.9 in adult 07/08/2023 07/09/2024 Overview: Per Obesity protocol Atherosclerosis of [place] co ronary artery without angina pectoris 07/05/2023 08/29/2023 Dyspnea 07/04/2023 08/13/2023 Occupational exposure in workplace 07/04/2023 02/14/2024 Chronic congestive heart failure 06/08/2023 07/05/2023 COPD, severe 06/08/2023 07/11/2023 Overview: Per COPD GOLD Classification Chronic hypoxemic respiratory failure 06/08/2023 07/04/2023 Chronic respiratory failure with hypoxia, on home oxygen therapy 06/08/2023 08/29/2023 Diabetes mellitus without complication 06/08/2023 08/29/2023 documented as of this encounter (statuses as of 10/19/2024) Immunizations Name Administration Dates Next Due Pneumococcal [...] encounter Miscellaneous Notes * Telephone Encounter - Lindy Pickens OSA - 10/19/2024 10:49 AM EST LMOM to schedule with Cardio. 10/19/2024 documented in this encounter Plan of Treatment Upcoming Encounters Date Type Department Care Team (Late st Contact Info) Description 10/19/2024 1:30 PM EST Scheduled Telephone [facility], [facility] [address] [place] [address] [facility], Nurse [facility] [address] [place] [address] 10/26/2024 7:15 AM EST Laboratory Lab [facility] Phlebotomy [facility] [address] [facility] [place] [address] [facility] Draw [address] [facility] [place] [address] 10/26/2024 5:30 PM EST Home Visit [facility], [facility] [address] [place] [address] Michelle Kim, RN [address] [place] [address] 10/27/2024 6:00 AM EST Anticoagulation Central[facility] Clinical Pharmacy Services, Oscar Peace [address] [place] [address] [place] [address] [facility], [address] [place] [address] Health Maintenance Due Date Last Done Comments Alpha-1 Antitrypsin 1974 CKD PHOS USE SMARTSET 02837 1974 DTap/Tdap Vaccines (1 - Tdap) 1975 [...] COPD 10/06/2025 10/06/2024 CKD HGB USE SMARTSET 01174 10/12/202510/12, 10/12/2024, 09/07/2024, Additional history exists Pneumococcal [...] filedocumented as of this encounter Care Teams Broadcast Chief Engineer Relationship Specialty Start Date End Date Charley Crane MD PCP - General Internal Medicine 06/04/23 documented as of this encounter
--- OUTSIDE RECORDS SUMMARY | 2024-10-21 20:56 | External Medical Summary | Summary of Care ---
Author Name Unknown Organization [facility] Address [address] [place] [address] Phone [phone] Care Team Providers Care Ferryboat Operator Name Role Phone Charley Crane MD Primary Care Provider [phone] Reason for Visit * Reason Onset Date Comments [facility]: Maintenance 10/19/2024 Encounter Details Date Type Department Care Team (Late st Contact Info) Description 10/19/2024 1:30 PM EST Scheduled Telephone [facility], [facility] [address] [place] [address] [facility], Nurse [facility] [address] [place] [address] Allergies Active Allergy Reactions Criticality Noted Date [...] tions:COPD, group D, by GOLD 2017 classification ([facility]) Take 2 Tablets by mouth in the [...] Classes - JULIA Class D - Inhaled Fdexlgeiyfabgz-DCZX-WRDV Combination Inhaler (Trellegy) Theophylline Remote Patient Monitoring Vendor: No Connected RPM Device(s): Traditional Scale Traditional Pulse Ox Self-Management plan Prednisone 40mg daily for 5 days Rx Oral Antibiotic Rx (see medication list) High frequency nebulizer treatments every 4-6 hours around the clock Exacerbation plan Chest Xray Additional Comments: Breathing at baseline today Has rescue kit available if needed nursing home current use of anticoagulant therapy 0 2023 Longstanding persistent atrial fibrillation 06/29 Assessment & Plan (07/01/2024 9:45 AM EDT): Rate controlled Continue coumadin Hypertension goal BP (blood pressure) < 130/80 0 07/17/2023 Dyslipidemia, goal LDL below 70 07/17/2023 Atherosclerosis of [place] co 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 Jardiance) Remote Patient Monitoring Vendor: [facility] Device(s): Connected Scale Continuous Monitoring Device Self [...] Classes - JULIA Class D - Inhaled Trxgthrtfsldrb-MYUE-TJIY Combination Inhaler (Sandro) Remote Patient Monitoring Vendor: [facility] Device(s): Continuous Monitoring Device Traditional Scale Self-Management plan High frequency nebulizer treatments every 4-6 hours around the clock Exacerbation plan Chest Xray Additional Comments: On continuous o2 2-3lpm Bipap at night Body mass index (BMI) of 40. 0 to 44.9 in adult 07/08/2023 07/09/2024 Overview: Per Obesity protocol Atherosclerosis of [place] co ronary artery without angina pectoris 07/05/2023 [...] Telephone Encounter - Haily Baca RN - 10/19/2024 12:46 PM EST [facility] Telephonic Nurse Follow-Up Call [facility] Subprogram: Primary Care at Home Follow [...] Medications: New medication(s) added: Azithromycin started on 10/17 Subjective: Condition Status: Improvement in symptoms but not at baseline Current Concerns: Called and spoke with patient, he stated "he feels a little better today." He did not do a Home Covid test yet, "it still needs to be dropped off." Denies any increase in SOB, oxygen is on at 3 liters , ox sat 94%. Cough is productive for dark green mucus. Patient is taking Azithromycin as ordered. Patient is aware to call [facility] back with results of Home Covid test to determine if he should start Prednisone or need Paxlovid ordered. Another follow up call scheduled or tomorrow. Disposition: Routed to [facility] and/or [facility] Care Team for further advice Future Visits Scheduled: Future Appointments-next 60 days Date/Time Provider Specialty Dept Phone 10/19/2024 1:30 PM [facility], Nurse [facility] [phone] 10/26/2024 7:15 AM [facility] [phone] 10/26/2024 5:30 PM Michelle Kim RN [facility] [phone] 10/27/2024 6:00 AM [facility] [phone] Haily Baca RN [facility] Registered Nurse Navigator Triage documented in this encounter Plan of Treatment Upcoming Encounters Date Type Department Care Team (Late st Contact Info) Description 10/20/2024 11:00 AM EST Scheduled Telephone ising at [facility] [address] [facility] [place] [address] [facility] Nurse [facility] [address] [facility] [place] [address] 10/26/2024 7:15 AM EST Laboratory Lab [facility]lebotomy [facility] [address] [facility] [place] [phone] [facility] [address] [facility] [place] [address] 10/26/2024 5:30 PM EST Home Visit [facility], [facility] [address] [facility] [place] [address] Michelle Kim, RN [address] [place] [phone] 10/27/2024 6:00 AM EST [facility], Oscar Peace [address] [place] [address] [place] [address] [facility], [address] [place] [address] Health Maintenance Due Date Last Done Comments Alpha-1 Antitrypsin 1974 CKD PHOS USE SMARTSET 53699 1974 DTap/Tdap Vaccines (1 - Tdap) 1975 [...] COPD 10/06/2025 10/06/2024 CKD HGB USE SMARTSET 60765 10/12/202510/12, 10/12/2024, 09/07/2024, Additional history exists Pneumococcal [...] filedocumented as of this encounter Care Teams Ferryboat Operator Relationship Specialty Start Date End Date Charley Crane MD PCP - General Internal Medicine 06/04/23 documented as of this encounter
--- OUTSIDE RECORDS SUMMARY | 2024-10-21 20:57 | External Medical Summary ---
Author Name Unknown Address Unknown Organization K[facility] [place] [address] [place] [address] Laboratory Report Ordering Provider Test Date Status VIRGIL BORREGO 10/12/2024 11:45:00 Final Observation Date Value Abnormality Reference (Units ) Status Iron 10/12/2024 11:45:00 24 Below low normal 45-176 (ug/dL) Final Iron-binding capacity 10/12/2024 11:45:00 381 250-425 (ug/dL) Final Transferrin Sat % 10/12/2024 11:45:00 6 Below low normal 15-55 (%) Final Performing Location [facility] [place] [address] [place] [address]
--- OUTSIDE RECORDS SUMMARY | 2024-10-21 20:57 | External Medical Summary ---
Author Name Unknown Address Unknown Organization K01:[facility] [place] [address] [place] [address] Laboratory Report Ordering Provider Test Date Status VIRGIL BORREGO 10/12/2024 11:45:00 Final Observation Date Value Abnormality Reference (Units ) Status Vitamin B12 10/12/2024 11:45:00 [phone] (pg/mL) Final Performing Location [facility] [place] - [address] [place] [address]
--- OUTSIDE RECORDS SUMMARY | 2024-10-21 20:57 | External Medical Summary | Summary of Care ---
Author Name Unknown Organization [facility] Address [address] [place] [address] Phone [phone] Care Team Providers Care Laundry Tub Maker Name Role Phone Charley Crane MD Primary Care Provider [phone] Reason for Referral * Evaluate & Treat - Unlimited Visits (Within 10 days (routine)) - Authorized Specialty Diagnoses / Procedures Referred By Karlie cobos Referred To Contact Pulmonary Diseases / Pulmonary Diagnoses Chronic respiratory failure with hypoxia and hypercapnia (HCC) BiPAP (biphasic positive airway pressure) dependence O2 dependent Charley Crane MD [address] [place] [address] Phone: tel: fax: Referral ID Status Reason Start Date Expiration Date Visits Requested Visits Authorized [id number] Authorized Specialty Services Required [phone] Question Answer Referral Priority Within 10 days (routine) Where should this appointment be scheduled? [facility] Primary Reason for Referral? Asthma/COPD * Evaluate & Treat - Unlimited Visits (Within 10 days (routine)) - Authorized Specialty Diagnoses / Procedures Referred By Karlie cobos Referred To Contact Cardiovascular Medicine / Cardiology Diagnoses Chronic heart failure with preserved ejection fraction (HCC) On Coumadin for atrial fibrillation (HCC) Hypertensive heart disease with chronic diastolic congestive heart failure (HCC) Charley Crane MD [address] [place] [address] Phone: tel: fax: Referral ID Status Reason Start Date Expiration Date Visits Requested Visits Authorized [id number] Authorized Specialty Services Required [phone] Question Answer Referral Priority Within 10 days (routine) Where should this appointment be scheduled? [facility] To which of the following clinics are you referring your patient? [facility] Failure [facility] * Evaluate & Treat - Unlimited Visits (Within 10 days (routine)) - Authorized Specialty Diagnoses / Procedures Referred By Contluis enrique t Referred To Contact Podiatry Diagnoses Type 2 diabetes mellitus with hemoglobin A1c goal of less than 7.0% (HCC) Long toenail Charley Crane MD [address] [place] [address] Phone: tel: fax: Referral ID Status Reason Start Date Expiration Date Visits Requested Visits Authorized [id number] Authorized Specialty Services Required [phone] Question Answer Referral Priority Within 10 days (routine) Where should this appointment be scheduled? [facility] Which condition are you referring this patient for? Nail trimming Medicare Patient? Yes Can Patient perform routine footcare without assistance? No Does patient have a chronic condition? Yes Has patient been seen in the past 6 months? Yes Date last seen for chronic condition: 10/06/2024 Who saw patient for chronic condition? CHF, DM AFIB, COPD Comments Routine Diabetic Foot Care Reason for Visit * Reason Comments Follow Up Pt here today for a 2 month follow up Encounter Details Date Type Department Care Team (Late st Contact Info) Description 10/06/2024 2:40 PM EST Office Visit [facility] [address] [place] [phone] Charley Crane MD [address] [place] [phone] Chronic heart failure with preserved ejection fraction (HCC)*; Type 2 diabetes mellitus with hemoglobin A1c goal of less than 7.0% (HCC); Long toenail; Stage 3a chronic kidney disease (HCC); Chronic respiratory failure with hypoxia and hypercapnia (HCC); BiPAP (biphasic positive airway pressure) dependence; O2 dependent; On Coumadin for atrial fibrillation (HCC); Venous insufficiency; Hypertensive heart disease with chronic diastolic congestive heart failure (HCC) Allergies Active Allergy Reactions Criticality Noted Date Comments Cephalexin Other (Please comment) 08/03/2024 Taking it effect his warfarin documented as of this encounter (statuses as of 10/08/2024) Medications Centrum Silver 50+Men Oral Tablet Take [...] BID (0700,1900), (No instructions reported), Reported on 10/06/2024 Albuterol Sulfate HFA 108 (90 Base) MCG/ACT [...] D, by GOLD 2017 classification ([facility]) Take 2 Tablets by mouth in the morning. For 5 days. Rescue kit. Use only as instructed. 10 Tablet 09/08/20 24 Active Spironolactone 25 MG Oral Tablet (Aldactone) Take 1 Tablet by mouth in the morning. 90 Tablet 3 09/10/20 24 Active Additional Information Patient taking differently: 12.5 mgOral Daily(AM), Reported on 10/06/2024 Jardiance 10 MG Oral Tablet (Empagliflozin) TAKE 1 TABLET BY MOUTH EVERY MORNING 90 Tablet 1 09/10/20 24 Active Azithromycin 250 MG Oral Tablet (Zithromax Z-Juan)Indications :COPD, group D, by GOLD 2017 classification ([facility]) Take two tablets by mouth on first [...] morning. 180 Blister Dosing Unit 3 10/06/20 Active Carvedilol 3.125 MG Oral Tablet (Coreg) Take 1 Tablet by mouth in the morning and 1 Tablet before bedtime. With food. 180 Tablet 3 10/06/20 Active Trelegy Ellipta 100-62.5-25 MCG/ACT Aerosol Powder Breath Activated (Fluticasone-Umec lidinium-Vilanter ol) Inhale 1 Puff by mouth in the morning. 180 Blister Dosing Unit 3 06/01/20 24 2023 Disconti nued(Ref ill) Fluticasone Propionate 50 MCG/ACT Nasal Suspension (Flonase) Administer 2 Sprays into each nostril in the morning. 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 0 2023 Longstanding persistent atrial fibrillation 06/29 Assessment & Plan (07/01/2024 9:45 AM EDT): Rate controlled Continue coumadin Hypertension goal BP (blood pressure) < 130/80 0 07/17/2023 Dyslipidemia, goal LDL below 70 07/17/2023 Atherosclerosis of soboba co ronary artery without angina pectoris 07/05/2023 [...] as of this encounter (statuses as of 10/08/2024) Resolved Problems Problem Noted Date Diagnosed Date [...] Classes - JULIA Class D - Inhaled Lddexbxxbwubmk-EAFI-QTAH Combination Inhaler (Sandro) Remote Patient Monitoring Vendor: Current Health Device(s): Continuous Monitoring Device Traditional Scale Self-Management plan High frequency nebulizer treatments every 4-6 hours around the clock Exacerbation plan Chest Xray Additional Comments: On continuous o2 2-3lpm Bipap at night Body mass index (BMI) of 40. 0 to 44.9 in adult 07/08/2023 07/09/2024 Overview: Per Obesity protocol Atherosclerosis of soboba co ronary artery without angina pectoris 07/05/2023 08/29/2023 Dyspnea 07/04/2023 08/13/2023 Occupational exposure in workplace 07/04/2023 02/14/2024 Chronic congestive heart failure 06/08/2023 07/05/2023 COPD, severe 06/08/2023 07/11/2023 Overview: Per COPD GOLD Classification Chronic hypoxemic respiratory failure 06/08/2023 07/04/2023 Chronic respiratory failure with hypoxia, on home oxygen therapy 06/08/2023 08/29/2023 Diabetes mellitus without complication 06/08/2023 08/29/2023 documented as of this encounter (statuses as of 10/08/2024) Immunizations Name Administration Dates Next Due Pneumococcal [...] Sign Reading Time Taken Comments Blood Pressure 137/70 10/06/2024 3:03 PM EST Pulse 87 10/06/2024 3:03 PM EST Temperature 36.6 C (97.8 F) 10/06/2024 3 :03 PM EST Respiratory Rate 18 10/06/2024 3:03 PM EST Oxygen Saturation 97% 10/06/2024 3:0 3 PM EST pt is on oxygen Inhaled Oxygen Concentration - - Weight 133.8 kg (295 lb) 10/06/2024 3:0 3 PM EST Height - - Body Mass Index 46.2 09/09/2023 12:03 PM EST documented in this encounter Patient Instructions * Patient Instructions* Charley Crane MD - 10/06/2024 3:28 PM EST Increase torsemide 40 mg AM and 20 mg at noon for a few days until swelling gets better And ok to to go back to torsemide 40 mg per day And resume coreg twice daily documented in this encounter Progress Notes * Charley Crane MD - 10/08/2024 12:29 PM EST Subjective Bala Coronado Jr. is a 69 year old male. Chief Complaint Patient presents with Follow Up Pt here today for a 2 month follow up HPI: Here for 2 mo f/u and hospital f/u Admission sep 13 Discharge sep 26 Dx : acute on chronic respiratory failure Known CHF, Afib, COPD, obesity hypoventilation, BiPAP use, hx of smoking , venous insuff, HTN , CAD, pul HTN He had Hypotension with diuretics IV at hospital Held coreg and cut down lasix dose But he has legs swelling again, will increase lasix dose again And ok to resume coreg Due to recurrent admissions to hospital , he couldn't f/u with his pulmo cardio as outpt Referral again Will f/u labs Type 2 DM, stable Taking med PMH: Patient Active Problem List Diagnosis History of deep venous thrombosis (DVT) of distal vein of left lower extremity Type 2 diabetes mellitus with hemoglobin A1c goal of less than 7.0% (HCC) Squamous cell carcinoma, face Venous insufficiency O2 dependent History of open leg wound On Coumadin for atrial fibrillation (HCC) 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) PHT (pulmonary hypertension) (HCC) Tobacco abuse, in remission Chronic respiratory failure with hypoxia and hypercapnia (HCC) Obesity hypoventilation syndrome (HCC) Family history of lung cancer Chronic heart failure with preserved ejection fraction (HCC) Atherosclerosis of soboba coronary artery without angina pectoris BiPAP (biphasic positive airway pressure) dependence Longstanding persistent atrial fibrillation (HCC) Hypertension goal BP (blood pressure) < 130/80 Dyslipidemia, goal LDL below 70 MCFP current use of anticoagulant therapy COPD, group D, by GOLD 2017 classification ([facility]) Stage 3 chronic kidney disease ([facility]) Hypertensive heart disease with chronic diastolic congestive heart failure ([facility]) Body mass index (BMI) 45.0-49.9, adult ([facility]) Current Outpatient Medications Medication Sig Dispense Refill Centrum Silver 50+Men Oral Tablet Take 1 Tablet by mouth daily. oxygen IN GAS Use 3 L/min(Oxygen) as directed continuous. Uses 2.5 LPM at night with BIPAP and as needed during the day BiPAP every night at bedtime. Torsemide 20 MG Oral Tablet (Demadex) Take 2 tablets by mouth once daily (Patient taking differently: Take 1 Tablet by mouth in the morning and 1 Tablet in the evening.) 180 Tablet 3 Atorvastatin Calcium 80 MG Oral Tablet (Lipitor) Take 1 Tablet by mouth in the morning. 90 Tablet 3 Pantoprazole Sodium 40 MG Oral Tablet Delayed Release (Protonix) TAKE 1 TABLET BY MOUTH EVERY MORNING 90 Tablet 1 Montelukast Sodium 10 MG Oral Tablet (Singulair) Take 1 Tablet by mouth in the morning. 90 Tablet 3 Compressor Nebulizer Inhale via nebulizer. Use as directed. 1 Each 1 guaiFENesin ER 1200 MG Oral Tablet Extended Release 12 Hour Take 1,200 mg by mouth in the morning and 1,200 mg before bedtime. Theophylline ER 100 MG Oral Tablet Extended Release 12 Hour (Theodur) Take 1 Tablet by mouth in themorning and 1 Tablet before bedtime. Warfarin Sodium 10 MG Oral Tablet (Coumadin) Take 1 to 1.5 tablets by mouth every day in the evening or as directed by the anticoagulation clinic. 100 Tablet 3 predniSONE 20 MG Oral Tablet (Deltasone) Take 2 Tablets by mouth in the morning. For 5 days. Rescuekit. Use only as instructed. 10 Tablet 0 Spironolactone 25 MG Oral Tablet (Aldactone) Take 1 Tablet by mouth in the morning. (Patient takingdifferently: Take 0.5 Tablets by mouth in the morning.) 90 Tablet 3 Jardiance 10 MG Oral Tablet (Empagliflozin) TAKE 1 TABLET BY MOUTH EVERY MORNING 90 Tablet 1 Azithromycin 250 MG Oral Tablet (Zithromax Z-Juan) Take two tablets by mouth on first day, then 1 tablet daily until gone 6 Tablet 0 Potassium Chloride ER 20 MEQ Oral Tablet Extended Release Take 1 Tablet by mouth in the morning. Diclofenac Sodium 1 % External Gel (Voltaren) Apply 1 Application topically to affected area in themorning and 1 Application before bedtime. Apply to knees and shoulders. 100 g 1 Enalapril Maleate 5 MG Oral Tablet (Vasotec) TAKE 1/2 TABLET BY MOUTH ONCE DAILY 30 Tablet 11 Fluticasone Propionate 50 MCG/ACT Nasal Suspension (Flonase) Administer 2 Sprays into each nostril in the morning. 16 g 3 Ipratropium-Albuterol 0.5-2.5 (3) MG/3ML Inhalation Solution (Duoneb) inhale contents of 1 vial in nebulizer every 6 hours if needed for shortness of breath 360 mL 3 Trelegy Ellipta 100-62.5-25 MCG/ACT Aerosol Powder Breath Activated (Ckktjxislny-Kvdxqhtxcegl-Ygkmnvaujc) Inhale 1 Puff by mouth in the morning. 180 Blister Dosing Unit 3 Carvedilol 3.125 MG Oral Tablet (Coreg) Take 1 Tablet by mouth in the morning and 1 Tablet before bedtime. With food. 180 Tablet 3 Albuterol Sulfate HFA 108 (90 Base) MCG/ACT Inhalation Aerosol Solution Inhale 2 Puffs by mouth every 6 hours as needed for Shortness of Breath or Wheezing. 54 g 1 Enalapril Maleate 2.5 MG Oral Tablet (Vasotec) Take 1 Tablet by mouth in the morning. 90 Tablet 2 No current facility-administered medications for this visit. 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 No mold. Social Needs Financial Resource Strain: Low Risk (07/17/2024) Financial [...] Stability Do you currently live in a detention or have no steady place to sleep [...] and unexpected weight change. HENT: Positive for congestion. Eyes: Negative for visual disturbance. Respiratory: Positive for shortness of breath. Negative for cough, chest tightness and wheezing. Cardiovascular: Positive for leg swelling. Negative for chest pain and palpitations. Gastrointestinal: Negative for abdominal distention, abdominal pain, nausea and vomiting. Endocrine: Negative. Musculoskeletal: Positive for arthralgias, gait problem and joint swelling. Allergic/Immunologic: Positive for environmental allergies. Neurological: Positive for weakness (general). Negative for headaches. Psychiatric/Behavioral: Positive for sleep disturbance. Negative for agitation and behavioral problems. The patient is nervous/anxious. Objective BP 137/70 | Pulse 87 | Temp 97.8 F (36.6 C) (Infrared ) | Resp 18 | Wt 295 lb (133.8 kg) | [id number]% Comment: pt is on oxygen | BMI 46.20 kg/m | BSA 2.52 m Physical Exam Constitutional: General: He is not in acute distress. Appearance: Normal appearance. He is obese. He is not ill-appearing, toxic- appearing or diaphoretic. HENT: Head: Normocephalic and atraumatic. Nose: Nose normal. Eyes: Extraocular Movements: Extraocular movements intact. Cardiovascular: Rate and Rhythm: Normal rate and regular rhythm. Pulses: Normal pulses. Heart sounds: Normal heart sounds. Pulmonary: Effort: Respiratory distress (O 2) present. Breath sounds: No stridor. No wheezing, rhonchi or rales. Chest: Chest wall: No tenderness. Musculoskeletal: General: Tenderness present. Right lower leg: Edema present. Left lower leg: Edema present. Neurological: General: No focal deficit present. Mental Status: He is alert and oriented to person, place, and time. Psychiatric: Behavior: Behavior normal. ASSESSMENT/PLAN: Chronic heart failure with preserved ejection fraction (HCC) (Primary) - CBC WITH WBC DIFFERENTIAL AND ANEMIA REFLEX WORKUP; Future; Expected date: 10/06/2024 - COMPREHENSIVE METABOLIC PANEL; Future; Expected date: 10/06/2024 - CARDIOLOGY REFERRAL OP Type 2 diabetes mellitus with hemoglobin A1c goal of less than 7.0% ([facility]) - PODIATRY (DIABETES-EXTENDED) REFERRAL OP Long toenail - PODIATRY (DIABETES-EXTENDED) REFERRAL OP Stage 3a chronic kidney disease (HCC) Chronic respiratory failure with hypoxia and hypercapnia ([facility]) - PULMONARY REFERRAL OP BiPAP (biphasic positive airway pressure) dependence - PULMONARY REFERRAL OP O2 dependent - PULMONARY REFERRAL OP On Coumadin for atrial fibrillation (HCC) - CARDIOLOGY REFERRAL OP Venous insufficiency Hypertensive heart disease with chronic diastolic congestive heart failure (HCC) - CARDIOLOGY REFERRAL OP Other orders - Fluticasone Propionate 50 MCG/ACT Nasal Suspension (Flonase); Administer 2 Sprays into each nostril in the morning. - Ipratropium-Albuterol 0.5-2.5 (3) MG/3ML Inhalation Solution (Duoneb); inhale contents of 1 vial in nebulizer every 6 hours if needed for shortness of breath - Trelegy Ellipta 100-62.5-25 MCG/ACT Aerosol Powder Breath Activated (Aebioqfkcrq-Rvbyppksmgqb-Digmeldxku); Inhale 1 Puff by mouth in the morning. - Carvedilol 3.125 MG Oral Tablet (Coreg); Take 1 Tablet by mouth in the morning and 1 Tablet before bedtime. With food. Follow Up: Return in about 2 months (around 12/07/2024) for Clinic Visit. | For: Clinic Visit | Check-out note: Referral Patient Instructions Increase torsemide 40 mg AM and 20 mg at noon for a few days until swelling gets better And ok to to go back to torsemide 40 mg per day And resume coreg twice daily F/u with cardio , pulmo Flonase prn use Cont all other meds Charley Crane MD documented in this encounter Nursing Notes * Ashely Garduno LPN - 10/06/2024 2:56 PM EST Chief Complaint Patient presents with Follow Up Pt here today for a 2 month follow up documented in this encounter Plan of Treatment Upcoming Encounters Date Type Department Care Team (Late st Contact Info) Description 10/12/2024 7:00 AM EST Laboratory Lab Mobile Phlebotomy [facility] [address] [place] [address] [facility] Mobile Home Draw [address] [place] [address] 10/12/2024 12:00 PM EST Home Visit [facility] [address] [place] [address] Chacha Kennedy, [facility] Installer And Repairer [address] [place] [address] 10/13/2024 6:00 AM EST [facility], Oscar Peace [address] [place] [address] [place] [address] [facility], [address] [place] [address] 10/26/2024 5:30 PM EST [facility] Visit [facility] [address] [facility] [place] [address] Michelle Kim RN [address] [place] [place] [id number] Scheduled Orders Name Type Priority Associated Diagnoses Orde r Schedule CBC WITH WBC DIFFERENTIAL AND ANEMIA REFLEX WORKUP Lab Routine Chronic heart failure with preserved ejection fraction (HCC) Expected: 10/06/2024 (Approximate), Expires: 10/06/2025 COMPREHENSIVE METABOLIC PANEL Lab Routine Chronic heart failure with preserved ejection fraction (HCC) Expected: 10/06/2024 (Approximate), Expires: 10/06/2025 Scheduled Referrals Name Type Priority Associated Diagnoses Orde r Schedule PODIATRY (DIABETES-EXTENDED) REFERRAL OP Referral Within 10 days (routine) Type 2 diabetes mellitus with hemoglobin A1c goal of less than 7.0% (HCC) Long toenail Ordered: 10/06/2024 CARDIOLOGY REFERRAL OP Referral Within 10 days (routine) Chronic heart failure with preserved ejection fraction (HCC) On Coumadin for atrial fibrillation (HCC) Hypertensive heart disease with chronic diastolic congestive heart failure (HCC) Ordered: 10/06/2024 PULMONARY REFERRAL OP Referral Within 10 days (routine) Chronic respiratory failure with hypoxia and hypercapnia (HCC) BiPAP (biphasic positive airway pressure) dependence O2 dependent Ordered: 10/06/2024 Health Maintenance Due Date Last Done Comments Alpha-1 Antitrypsin 1974 CKD PHOS USE SMARTSET 08821 1974 DTap/Tdap Vaccines (1 - Tdap) 1975 [...] 06/15/2025 06/15/2024, 06/21/2023 CKD HGB USE SMARTSET 14616 09/07/202509/07, 09/07/2024, 06/15/2024, Additional history exists O2 ASSESSMENT COMPLETED IN PAST YEAR FOR COPD 10/06/2025 10/06/2024 Pneumococcal Vaccine: 65+ Years Completed 07/05/2023 Zoster [...] Advanced care planning/counseling discussion Other specified counseling Chronic heart failure with preserved ejection fraction (HCC)- Primary Type 2 diabetes mellitus with hemoglobin A1c goal of less than 7.0% (HCC) Long toenail Other specified disease of nail Stage 3a chronic kidney disease (HCC) Chronic respiratory failure with hypoxia and hypercapnia (HCC) BiPAP (biphasic positive airway pressure) dependence Dependence on other enabling machine O2 dependent Dependence on supplemental oxygen On Coumadin for atrial fibrillation (HCC) Venous insufficiency Unspecified venous (peripheral) insufficiency Hypertensive heart disease with chronic diastolic congestive heart failure (HCC) documented in this encounter Care Teams Laundry Tub Maker Relationship Specialty Start Date End Date Charley Crane MD [address] [place] [address] PCP - General Internal Medicine 06/04/23 documented as of this encounter
--- OUTSIDE RECORDS SUMMARY | 2024-10-21 20:57 | External Medical Summary ---
Author Name Unknown Address Unknown Organization [id number]:[facility] [address] [place] [address] Laboratory Report Ordering Provider Test Date Status NAVARROSANCHORADU 10/12/2024 11:45:00 Final Standing order for pt/inr. < br/>Please draw pt/inr every 1 to 4 weeks as requested
Results to [facility]

Warfarin Therapy
INR: 2.0-3.0 conventional anticoagulation
INR: 2.5-3.5 high intensity anticoagulation Observation Date Value Abnormality Reference (Units ) Status PT 10/12/2024 11:45:00 36.9 Above high normal 11 .6-15.2 (seconds) Final INR 10/12/2024 11:45:00 3.7 Above high normal 0. 8-1.2 Final Performing Location [facility] [address] [place] [address]
--- OUTSIDE RECORDS SUMMARY | 2024-10-21 20:57 | External Medical Summary ---
Author Name Unknown Address Unknown Organization [id number]:[facility] [place] - [address] [place] [address] Laboratory Report Ordering Provider Test Date Status VIRGIL BORREGO 10/12/2024 11:45:00 Final Observation Date Value Abnormality Reference (Units ) Status Retic, % (auto) 10/12/2024 11:45:00 2.39 Above high normal 0.80-1.90 (%) Final Reticulocytes, Absolute 10/12/2024 11:45:00 87.7 31.3-100.1 (K/uL) Final Reticulocyte fraction, immature 10/12/2024 11:45:00 31.7 Above high normal 2.5-20.6 (%) Final Reticulocyte HGB 10/12/2024 11:45:00 23.8 Below low normal 29.7-37.4 (pg) Final Performing Location [facility] [place] [facility] [address] [facility] [address]
--- OUTSIDE RECORDS SUMMARY | 2024-10-21 20:57 | External Medical Summary ---
Author Name Unknown Address Unknown Organization [id number]:[facility] [address] [place] [id number] Laboratory Report Ordering Provider Test Date Status VIRGIL BORREGO 10/12/2024 11:45:00 Final Observation Date Value Abnormality Reference (Units ) Status BUN 10/12/2024 11:45:00 34 Above high normal 6-20 (mg/dL) Final Creatinine 10/12/2024 11:45:00 0.8 0.6-1.2 (mg/dL) Final Glomerular filtration rate/1.73 sq M.predicted [Volume Rate/Area] in Serum, Plasma or Blood by Creatinine-based formula (CKD-EPI) 10/12/2024 11:45:00 >90 >=60 (mL/min) Final eGFR is calculated based on the CKD-EPI 2020 equation. Sodium 10/12/2024 11:45:00 138 135-146 (m mol/L) Final Potassium 10/12/2024 11:45:00 4.8 3.5-5.1 (m mol/L) Final Cl 10/12/2024 11:45:00 97 Below low normal 98- 107 (mmol/L) Final CO2 10/12/2024 11:45:00 35 Above high normal 22 -32 (mmol/L) Final Anion gap 10/12/2024 11:45:00 6 Below low normal 7-1 5 (mmol/L) Final Glucose 10/12/2024 11:45:00 121 Above high normal 70 -120 (mg/dL) Final Albumin 10/12/2024 11:45:00 4.0 3.8-5.0 (g /dL) Final AST (Aspartate aminotransferase) 10/12/2024 11:45:00 32 10-50 (U/L) Fin al Alk Phos 10/12/2024 11:45:00 125 35-130 (U/ L) Final Bilirubin, Total 10/12/2024 11:45:00 0.3 <=1 .2 (mg/dL) Final Calcium 10/12/2024 11:45:00 9.0 8.4-10.2 ( mg/dL) Final Protein 10/12/2024 11:45:00 6.7 6.0-8.3 (g /dL) Final ALT (Alanine aminotransferase) 10/12/2024 11:45:00 27 10-50 (U/L) Rubén sanders Performing Location [facility] [address] [place] [address]
--- OUTSIDE RECORDS SUMMARY | 2024-10-21 20:57 | External Medical Summary | Summary of Care ---
Author Name Unknown Organization [facility] Address [address] [facility] [address] Phone [phone] Care Team Providers Care Program Support Specialist Name Role Phone Charley Crane MD Primary Care Provider [phone] Reason for Visit * Reason Comments Dosage Adjustment Via Phone (anticoag Cl inic) Encounter Details Date Type Department Care Team (Late st Contact Info) Description 10/13/2024 6:00 AM EST Anticoagulation Centralized Clinical Pharmacy Services, Oscar Peace [address] [place] [address] [place] [address] [place] [address] assisted current use of anticoagulant therapy*; Longstanding persistent atrial fibrillation (HCC); History of deep venous thrombosis (DVT) of distal vein of left lower extremity Allergies Active Allergy Reactions Criticality Noted Date Comments Cephalexin Other (Please comment) 08/03/2024 Taking it effect his warfarin documented as of this encounter (statuses as of 10/13/2024) Medications Centrum Silver 50+Men Oral Tablet Take [...] tions:COPD, group D, by GOLD 2017 classification ([facility]) Take 2 Tablets by mouth in [...] :COPD, group D, by GOLD 2017 classification ([facility]) Take two tablets by mouth on first [...] as of this encounter (statuses as of 10/13/2024) Active Problems Problem Noted Date Diagnosed Date [...] Classes - JULIA Class D - Inhaled Wdwdzictevcctd-CRJY-XEME Combination Inhaler (Trellegy) Theophylline Remote Patient Monitoring Vendor: No Connected RPM Device(s): Traditional Scale Traditional Pulse Ox Self-Management plan Prednisone 40mg daily for 5 days Rx Oral Antibiotic Rx (see medication list) High frequency nebulizer treatments every 4-6 hours around the clock Exacerbation plan Chest Xray Additional Comments: Breathing at baseline today 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 0 2023 Longstanding persistent atrial fibrillation 06/29 Assessment & Plan (07/01/2024 9:45 AM EDT): Rate controlled Continue coumadin Hypertension goal BP (blood pressure) < 130/80 0 07/17/2023 Dyslipidemia, goal LDL below 70 07/17/2023 Atherosclerosis of [place] co ronary artery without angina pectoris 07/05/2023 [...] as of this encounter (statuses as of 10/13/2024) Resolved Problems Problem Noted Date Diagnosed Date [...] Classes - JULIA Class D - Inhaled Lsyouqlvjjqadu-MFWP-UPDV Combination Inhaler (Sandro) Remote Patient Monitoring Vendor: Current Health Device(s): Continuous Monitoring Device Traditional Scale Self-Management plan High frequency nebulizer treatments every 4-6 hours around the clock Exacerbation plan Chest Xray Additional Comments: On continuous o2 2-3lpm Bipap at night Body mass index (BMI) of 40. 0 to 44.9 in adult 07/08/2023 07/09/2024 Overview: Per Obesity protocol Atherosclerosis of [place] co ronary artery without angina pectoris 07/05/2023 08/29/2023 Dyspnea 07/04/2023 08/13/2023 Occupational exposure in workplace 07/04/2023 02/14/2024 Chronic congestive heart failure 06/08/2023 07/05/2023 COPD, severe 06/08/2023 07/11/2023 Overview: Per COPD GOLD Classification Chronic hypoxemic respiratory failure 06/08/2023 07/04/2023 Chronic respiratory failure with hypoxia, on home oxygen therapy 06/08/2023 08/29/2023 Diabetes mellitus without complication 06/08/2023 08/29/2023 documented as of this encounter (statuses as of 10/13/2024) Immunizations Name Administration Dates Next Due Pneumococcal [...] No 10/12/2024 Does the household have a veterans affairs medical centerr source of income? (Household - [...] encounter Progress Notes * Isabel Li, [facility] - 10/13/2024 4:09 PM EST Contacts Contact Date/Time Type Contact Phone/Fax 10/13/2024 04:08 PM EST Phone (Outgoing) Bala Coronado Jr. (Self) [phone] (M) Spoke to Patient Subjective Patient Findings [...] date communicated as noted by Pharmacist: Yes Isabel Li RPh 10/13/2024, 4:09 PM * Isabel Li RPh - 10/13/2024 8:15 AM EST Images from the original note were not included. Coumadin Clinic (region specific) Objective Current Warfarin Dose As of 10/13/2024 Warfarin maintenance plan: 10 mg (10 mg x 1) every Mon, Wed, Fri; 15 mg (10 mg x 1.5) all other days INR Result As of 10/13/2024 INR goal: 2.0-3.0 INR used for dosin.7 (10/12/2024) Assessment & Plan Warfarin Plan As of 10/13/2024 Full warfarin instructions: 10/13: Hold; Otherwise 10 mg every Mon, Wed, Fri; 15 mg all other days Next INR check: 10/26/2024 Repeat PT/INR in 2 week(s) Weekly dose: not changed Additional Dosing Information: Description [facility] Pill packs from [facility] - Warfarin NOT included Tech to contact patient with dose instructions as noted. Isabel Li RPh 10/13/2024, 8:15 AM documented in this encounter Plan of Treatment Upcoming Encounters Date Type Department Care Team (Late st Contact Info) Description 10/26/2024 5:30 PM EST Home Visit ising at Home, [facility] [address] [place] [address] Michelle Kim, RN [address] [place] [address] Health Maintenance Due Date Last Done Comments Alpha-1 Antitrypsin 1974 CKD PHOS USE SMARTSET 65979 1974 DTap/Tdap Vaccines (1 - Tdap) 1975 [...] COPD 10/06/2025 10/06/2024 CKD HGB USE SMARTSET 39214 10/12/202510/12, 10/12/2024, 09/07/2024, Additional history exists Pneumococcal [...] care planning/counseling discussion 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- Primary Longstanding persistent atrial fibrillation (HCC) History of deep venous thrombosis (DVT) of distal vein of left lower extremity Hypertensive heart disease with chronic diastolic congestive heart failure (HCC)- Primary Chronic respiratory failure with hypoxia and hypercapnia (HCC) COPD, group D, by GOLD 2017 classification (HCC) Ulcer of right lower extremity with fat layer exposed (HCC) documented in this encounter Care Teams Program Support Specialist Relationship Specialty Start Date End Date Charley Crane MD [address] [place] [address] PCP - General Internal Medicine 06/04/23 documented as of this encounter
--- OUTSIDE RECORDS SUMMARY | 2024-10-21 20:57 | External Medical Summary ---
Author Name Unknown Address Unknown Organization K01:[facility] [place] [address] [place] [address] Laboratory Report Ordering Provider Test Date Status VIRGIL BORREGO 10/12/2024 11:45:00 Final Observation Date Value Abnormality Reference (Units ) Status Folic Acid 10/12/2024 11:45:00 18.8 >4.5 (ng/ mL) Final Performing Location LABORATORY [facility] - [address] [place] [address]
--- OUTSIDE RECORDS SUMMARY | 2024-10-21 20:57 | External Medical Summary ---
Author Name Unknown Address Unknown Organization K01:[facility] [place] - [address] [facility] [address] Laboratory Report Ordering Provider Test Date Status SEAMUSVALENTINOVIRGIL 10/12/2024 11:45:00 Final Observation Date Value Abnormality Reference (Units ) Status SYNC LEUKOCYTES IN BLOOD BY AUTOMATED COUNT 10/12/2024 11:45:00 7.21 4.00-10.80 (K/uL) Final Segs 10/12/2024 11:45:00 74.1 40.0-75.0 (%) Final Lymphs % 10/12/2024 11:45:00 10.7 Below low normal 18.0-42.0 (%) Final Monos 10/12/2024 11:45:00 10.8 1.0-11.0 (%) Final Eosinophils 10/12/2024 11:45:00 3.3 0.0-6.0 (%) Final Basos 10/12/2024 11:45:00 0.7 0.0-2.0 (%) Final Immature Granulocyte, Percent 10/12/2024 11:45:00 0.4 0.0-2.0 (%) Final Absolute Segs 10/12/2024 11:45:00 5.34 1.80-7.70 (K/uL) Final Lymphs, absolute 10/12/2024 11:45:00 0.77 Below low normal 1.00-4.80 (K/ul) Final Monos, Abs 10/12/2024 11:45:00 0.78 0.00-1.10 (K/uL) Final Eos, Abs 10/12/2024 11:45:00 0.24 0.00-0.70 (K/uL) Final Basos, Abs 10/12/2024 11:45:00 0.05 0.00-0.20 (K/uL) Final Immature Granulocytes, Number 10/12/2024 11:45:00 0.03 0.00-0.20 (K/uL) Final Performing Location [facility]ORY [facility] [place] - [address] [facility] [address]
--- OUTSIDE RECORDS SUMMARY | 2024-10-21 20:57 | External Medical Summary | Summary of Care ---
Author Name Unknown Organization [facility] Address [address] [place] [place] [place] [address] Phone [phone] Care Team Providers Care Survey Cad Technician Name Role Phone Charley Crane MD Primary Care Provider [phone] Reason for Visit * Reason Onset Date Comments [facility]: Maintenance 08/14/2024 Encounter Details Date Type Department Care Team (Late st Contact Info) Description 08/14/2024 Telephone [facility], [facility] [address] [place] [address] Michelle Kim, RN 132 [facility] [place] [address] [facility]: Maintenance Allergies Active Allergy Reactions Criticality Noted Date Comments Cephalexin Other (Please comment) 08/03/2024 Taking it effect his warfarin documented as of this encounter (statuses as of 09/30/2024) Medications Centrum Silver 50+Men Oral Tablet Take [...] 024 Active Additional Information Patient taking differently: 20 mg Oral Daily(AM), (No instructions reported), Reported on 09/27/2024 Albuterol Sulfate HFA 108 (90 Base) MCG/ACT Inhalation Aerosol Solution Inhale 2 Puffs by mouth every 6 hours as needed for Shortness of Breath or Wheezing. 54 g Active Atorvastatin Calcium 80 MG Oral Tablet (Lipitor)Indicat ions:Dyslipidemi a, goal LDL below 70 Take 1 Tablet by mouth in the morning. 90 Tablet 3 Active Pantoprazole Sodium 40 MG Oral Tablet Delayed Release (Protonix) TAKE 1 TABLET BY MOUTH EVERY MORNING 90 Tablet 1 Active Trelegy Ellipta 100-62.5-25 MCG/ACT Aerosol Powder Breath Activated (Fluticasone-Ume clidinium-Vilant blaire) Inhale 1 Puff by mouth in the morning. 180 Blister Dosing Unit 3 Active Montelukast Sodium 10 MG Oral Tablet (Singulair) Take 1 Tablet by mouth in the morning. 90 Tablet 3 Active Compressor Nebulizer Inhale via nebulizer. Use as directed. 1 Each Active guaiFENesin ER 1200 MG Oral Tablet Extended Release 12 Hour Take 1,200 mg by mouth in the morning and 1,200 mg before bedtime. Active Theophylline ER 100 MG Oral Tablet Extended Release 12 Hour (Theodur) Take 1 Tablet by mouth in the morning and 1 Tablet before bedtime. Active Empagliflozin 10 MG Oral Tablet (Jardiance) Take 1 Tablet by mouth in the morning. 90 Tablet 3 2023 Discontinued Spironolactone 25 MG Oral Tablet (Aldactone) Take 1 Tablet by mouth in the morning. 90 Tablet 3 2023 Discontinued( Refill) Warfarin Sodium 10 MG Oral Tablet (Coumadin) Take 1 to 1.5 tablets by mouth every day in the evening or as directed by the anticoagulation clinic. 100 Tablet 3 024 2023 Discontinued( Refill) Fluticasone Propionate 50 MCG/ACT Nasal Suspension (Flonase) Administer 2 Sprays into each nostril in the morning. 16 g 2023 Discontinued( Refill) Carvedilol 3.125 MG Oral Tablet (Coreg)Indicatio ns:Longstanding persistent atrial fibrillation (HCC),Hypertensi on goal BP (blood pressure) < 130/80,Chronic heart failure with preserved ejection fraction (HCC) Take 1 Tablet by mouth 2 times a day with morning and evening meals. 180 Tablet 3 024 2023 Discontinued( Medication List Clean Up) Ipratropium-Albu terol 0.5-2.5 (3) MG/3ML Inhalation Solution (Duoneb) INHALE THE CONTENTS OF 1 VIAL IN NEBULIZER EVERY 6 HOURS NEEDED FOR SHORTNESS OF BREATH 360 mL 3 024 2023 Discontinued predniSONE 20 MG Oral Tablet (Deltasone)Indic ations:COPD, group D, by GOLD 2017 classification ([facility]) Take 2 Tablets by mouth in the morning. Rescue kit. Use only as instructed. 10 Tablet 024 2023 Discontinued( Refill) Enalapril Maleate 2.5 MG Oral Tablet (Vasotec)Indicat ions:Hypertensio n goal BP (blood pressure) < 130/80 Take 1 Tablet by mouth in the morning. 30 Tablet 11 024 2023 Discontinued( Refill) Diclofenac Sodium 1 % External Gel (Voltaren) Apply 1 Application topically to affected area in the morning and 1 Application before bedtime. Apply to knees and shoulders. 100 g 1 024 2023 Discontinued( Refill) documented as of this encounter (statuses as of 09/30/2024) Active Problems Problem Noted Date Diagnosed Date [...] goal LDL below 70 07/17/2023 Atherosclerosis of [place] co ronary artery without angina pectoris [...] as of this encounter (statuses as of 09/30/2024) Resolved Problems Problem Noted Date Diagnosed Date [...] Classes - JULIA Class D - Inhaled Iteeotriyiglxt-UCYJ-RLEW Combination Inhaler (Trellegy) Remote Patient Monitoring Vendor: Current Health Device(s): Continuous Monitoring Device Traditional Scale Self-Management plan High frequency nebulizer treatments every 4-6 hours around the clock Exacerbation plan Chest Xray Additional Comments: On continuous o2 2-3lpm Bipap at night Body mass index (BMI) of 40. 0 to 44.9 in adult 07/08/2023 07/09/2024 Overview: Per Obesity protocol Atherosclerosis of [place] co ronary artery without angina pectoris [...] as of this encounter (statuses as of 09/30/2024) Immunizations Name Administration Dates Next Due Pneumococcal [...] encounter Miscellaneous Notes * Telephone Encounter - Lakia Shaikh LPN - 09/30/2024 12:22 PM EST See other encounters * Telephone Encounter - Citlalli Stoll LPN [...] Care Team (Late st Contact Info) Description 10/01/2024 4:00 PM EST [facility] 132 [facility] [place] [address] Michelle Kim RN 132 [facility] [place] [address] 10/06/2024 2:40 PM EST Office Visit [facility] [address] [place] [phone] Charley Crane MD [address] [place] [address] 10/08/2024 1:30 PM EST Office Visit Orthopaedics, Russel Torres [address] [place] [address] [place] [address] Juan Mays PA-C [address] [place] [address] 10/12/2024 7:00 AM EST Laboratory Lab [facility]le[facility] [address] [place] [address] [facility] Mobile Home Draw [address] [facility] [place] [address] 10/12/2024 12:00 PM EST Home Visit [facility] [address] [place] [address] Chacha Kennedy, Community Health Supervisor Testing [address] [place] [address] 10/13/2024 6:00 AM EST Anticoagulation Centralized Clinical Pharmacy Services, Oscar Peace [address] [place] [address] [place] [address] [facility], [address] [place] [address] 10/26/2024 5:30 PM EST [facility], [facility] [place] [address] Michelle Kim RN [address] [place] [address] Health Maintenance Due Date Last Done Comments Alpha-1 Antitrypsin 1974 CKD PHOS USE SMARTSET 52330 1974 DTap/Tdap Vaccines (1 - Tdap) 1975 [...] 06/15/2025 06/15/2024, 06/21/2023 CKD HGB USE SMARTSET 52575 09/07/202509/07, 09/07/2024, 06/15/2024, Additional history exists O2 ASSESSMENT COMPLETED IN PAST YEAR FOR COPD 09/27/2025 09/27/2024 Pneumococcal Vaccine: 65+ Years Completed 07/05/2023 Zoster [...] Not on filedocumented as of this encounter Results * (ABNORMAL) BASIC METABOLIC PANEL (09/07/2024 7:49 AM EST) BUN 34(H) 6 - 20 mg/dL 09/07/2024 2:07 PM EST [facility]ORY [place] [facility] CREATININE 0.8 0.6 - 1.2 mg/dL 09/07/2024 2:07 PM EST [facility] [place] [facility] EGFR >90 >=60 mL/min 09/07/2024 2:07 PM EST [facility] [place] [facility] Comment:eGFR is calculated b ased on the CKD-EPI 2020 equation. SODIUM 137 135 - 146 mmol/L 09/07/2024 2:07 PM EST [facility] [place] [facility] POTASSIUM 4.5 3.5 - 5.1 mmol/L 09/07/2024 2:07 PM EST [facility] [place] [facility] CHLORIDE 92(L) 98 - 107 mmol/L 09/07/2024 2:07 PM EST [facility] [place] [facility] CO2 34(H) 22 - 32 mmol/L 09/07/2024 2:07 PM EST [facility] [place] [facility] ANION GAP 11 7 - 15 mmol/L 09/07/2024 2:07 PM EST [facility] [place] [facility]10 GLUCOSE 112 70 - 120 mg/dL 09/07/2024 2:07 PM EST [facility] [place] [facility] CALCIUM 8.9 8.4 - 10.2 mg/dL 09/07/2024 2:07 PM EST [facility] [place] [facility] Blood Venous blood specimen / Unknown Venipuncture / Unknown 09/07/2024 7:49 AM EST 09/07/2024 11:08 AM EST us Charley Crane MD LAB BLOOD ORDERABLES Final Resul t [facility]ATORY [place] [facility] [address] [place] [address] documented in this encounter Visit Diagnoses Diagnosis COPD, group [...] care planning/counseling discussion Other specified counseling Chronic respiratory failure with hypoxia and hypercapnia (HCC)- Primary Stage 3a chronic kidney disease (HCC) documented in this encounter Care Teams Survey Cad Technician Relationship Specialty Start Date End Date Charley Crane MD [address] [place] [address] PCP - General Internal Medicine 06/04/23 documented as of this encounter
--- OUTSIDE RECORDS SUMMARY | 2024-10-21 20:57 | External Medical Summary | Summary of Care ---
Author Name Unknown Organization [facility] Address [address] [place] [address] Phone [phone] Care Team Providers Care Creel Selector Name Role Phone Charley Crane MD Primary Care Provider [phone] Reason for Visit * Reason Comments eRx-Medication Refill Encounter Details Date Type Department Care Team (Late st Contact Info) Description 10/01/2024 Refill [facility] [address] [place] [id number] Charley Crane MD [address] [place], [place] [phone] Allergies Active Allergy Reactions Criticality Noted Date Comments Cephalexin Other (Please comment) 08/03/2024 Taking it effect his warfarin documented as of this encounter (statuses as of 10/01/2024) Medications Centrum Silver 50+Men Oral Tablet Take [...] tions:COPD, group D, by GOLD 2017 classification ([facility]) Take 2 Tablets by mouth in the morning. For 5 days. Rescue kit. Use only as instructed. 10 Tablet 09/08/20 24 Active Spironolactone 25 MG Oral Tablet (Aldactone) Take 1 Tablet by mouth in the morning. 90 Tablet 3 09/10/20 24 Active Additional Information Patient taking differently: 12.5 mgOral Daily(AM), Reported on 09/27/2024 Jardiance 10 MG Oral Tablet (Empagliflozin) TAKE 1 TABLET BY MOUTH EVERY MORNING 90 Tablet 1 09/10/20 24 Active Fluticasone Propionate 50 MCG/ACT Nasal Suspension (Flonase) Administer 2 Sprays into each nostril in the morning. 16 g 1 09/10/20 24 Active Azithromycin 250 MG Oral Tablet (Zithromax Z-Juan)Indications :COPD, group D, by GOLD 2017 classification ([facility]) Take two tablets by mouth on first day, then 1 tablet daily until gone 6 Tablet 09/10/20 24 Active Ipratropium-Albut blaire 0.5-2.5 (3) MG/3ML Inhalation Solution (Duoneb) inhale contents of 1 vial in nebulizer every 6 hours if needed for shortness of breath 360 mL 3 09/21/20 24 Active Potassium Chloride ER 20 MEQ [...] DAILY 30 Tablet 11 10/01/20 24 Active documented as of this encounter (statuses as of 10/01/2024) Active Problems Problem Noted Date Diagnosed Date [...] classification 11/04 Overview: Per COPD 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 Jardiance) Remote Patient Monitoring Vendor: [facility] [place] Device(s): Connected Scale [...] as of this encounter (statuses as of 10/01/2024) Resolved Problems Problem Noted Date Diagnosed Date [...] Classes - JULIA Class D - Inhaled Xzoifswwihosut-LPTX-GGAK Combination Inhaler (Trellegy) Remote Patient Monitoring Vendor: Current Health Device(s): Continuous Monitoring Device Traditional Scale Self-Management plan High frequency nebulizer treatments every 4-6 hours around the clock Exacerbation plan Chest Xray Additional Comments: On continuous o2 2-3lpm Bipap at night Body mass index (BMI) of 40. 0 to 44.9 in adult 07/08/2023 07/09/2024 Overview: Per Obesity protocol Atherosclerosis of alutiiq co ronary artery without angina pectoris 07/05/2023 08/29/2023 Dyspnea 07/04/2023 08/13/2023 Occupational exposure in workplace 07/04/2023 02/14/2024 Chronic congestive heart failure 06/08/2023 07/05/2023 COPD, severe 06/08/2023 07/11/2023 Overview: Per COPD GOLD Classification Chronic hypoxemic respiratory failure 06/08/2023 07/04/2023 Chronic respiratory failure with hypoxia, on home oxygen therapy 06/08/2023 08/29/2023 Diabetes mellitus without complication 06/08/2023 08/29/2023 documented as of this encounter (statuses as of 10/01/2024) Immunizations Name Administration Dates Next Due Pneumococcal [...] Telephone Encounter - Charley Crane MD - 10/01/2024 4:57 PM ESTSigned Prescriptions: Disp Refills Enalapril Maleate 5 MG Oral Tablet (Vasote*30 Tab*11 Sig: TAKE 1/2 TABLET BY MOUTH ONCE DAILY Authorizing Provider: CHARLEY CRANE * Telephone Encounter - Javed Zabala LPN - 10/01/2024 4:55 PM ESTPending Prescriptions: Disp Refills Enalapril Maleate 5 MG Oral Tablet [Pharma*30 Tab*0 Sig: TAKE 1/2 TABLET BY MOUTH ONCE DAILY * Telephone Encounter - Javed Zabala LPN - 10/01/2024 4:55 PM EST Did you pend patient's preferred pharmacy and medication before forwarding?yes Pharmacy: [id number] [facility] Pending Prescriptions: Disp Refills Enalapril Maleate 5 MG Oral Tablet (Vasot*30 Tab*0 Sig: TAKE 1/2 TABLET BY MOUTH ONCE DAILY Last Visit: Visit date not found (in office), Visit date not found (telemedicine) Next Visit: 10/06/2024 If no future appointments scheduled, and last appointment is greater than a year ago, please schedule patient for a follow-up appointment Last date the medication was ordered: Is this request for a controlled substance?No [...] Description 10/06/2024 2:40 PM EST Office Visit [facility] [place] [address] [place] [phone] Charley Crane MD [address] [place] [address] 10/08/2024 1:30 PM EST Office Visit Orthopaedics, Russel Torres [address] [place] [address] Juan Mays PA-C [address] [place] [address] 10/12/2024 7:00 AM EST Laboratory [facility] [address] [facility] [address] [facility] Home Draw [address] [place] [address] 10/12/2024 12:00 PM EST Home Visit [facility] Coordination and Integration [address] [facility] [place] [address] Chacha Kennedy [facility] [address] [place] [facility] [place] [address] 10/13/2024 6:00 AM EST Anticoagulation Centralized Clinical Pharmacy Services, Oscar Peace [address] [place] [address] [place] [address] [place] [address] 10/26/2024 5:30 PM EST [facility], [facility] [address] [place] [address] Michelle Kim, RN [address] [place] [address] Health Maintenance Due Date Last Done Comments Alpha-1 Antitrypsin 1974 CKD PHOS USE SMARTSET 91047 1974 DTap/Tdap Vaccines (1 - Tdap) 1975 [...] 06/15/2025 06/15/2024, 06/21/2023 CKD HGB USE SMARTSET 64434 09/07/202509/07, 09/07/2024, 06/15/2024, Additional history exists O2 [...] filedocumented as of this encounter Care Teams Creel Selector Relationship Specialty Start Date End Date Charely Crane MD [address] [place] [address] PCP - General Internal Medicine 06/04/23 documented as of this encounter
--- OUTSIDE RECORDS SUMMARY | 2024-10-21 20:57 | External Medical Summary | Summary of Care ---
Author Name Unknown Organization [facility] Address [address] [place] [address] Phone [phone] Care Team Providers Care Modern Greek Studies Professor Name Role Phone Charley Crane MD Primary Care Provider [phone] Encounter Details Date Type Department Care Team (Late st Contact Info) Description 10/13/2024 1:00 PM EST [facility] [address] [facility] [place] [address] Fabian Gonzalez PA-C [address] [place] [facility] [place] [address] Hypertensive heart disease with chronic diastolic congestive heart failure (HCC)*; Chronic respiratory failure with hypoxia and hypercapnia (HCC); COPD, group D, by GOLD 2017 classification (HCC); Ulcer of right lower extremity with fat layer exposed (HCC) Allergies Active Allergy Reactions Criticality Noted [...] tions:COPD, group D, by GOLD 2017 classification ([facility]) Take 2 Tablets by mouth [...] group D, by GOLD 2017 classification ([facility]) Take two tablets by mouth [...] Classes - JULIA Class D - Inhaled Ezjphogmfrkkxp-INLO-CZNK Combination Inhaler (Trellegy) Theophylline Remote Patient Monitoring Vendor: No Connected RPM Device(s): Traditional Scale Traditional Pulse Ox Self-Management plan Prednisone 40mg daily for 5 days Rx Oral Antibiotic Rx (see medication list) High frequency nebulizer treatments every 4-6 hours around the clock Exacerbation plan Chest Xray Additional Comments: Breathing at baseline today Has rescue kit available if needed [facility] current use of anticoagulant therapy 0 2023 Longstanding persistent atrial fibrillation 06/29 Assessment & Plan (07/01/2024 9:45 AM EDT): Rate controlled Continue coumadin Hypertension goal BP (blood pressure) < 130/80 0 07/17/2023 Dyslipidemia, goal LDL below 70 07/17/2023 Atherosclerosis of [place] ronary artery without angina pectoris [...] empagliflozin (ex. Jardiance) Remote Patient Monitoring Vendor: [facility] Device(s): Connected Scale Continuous Monitoring [...] Classes - JULIA Class D - Inhaled Bpslmxmvlyvzin-OZBA-OPQS Combination Inhaler (Sandro) Remote Patient Monitoring Vendor: [facility] Device(s): Continuous Monitoring Device Traditional Scale Self-Management plan High frequency nebulizer treatments every 4-6 hours around the clock Exacerbation plan Chest Xray Additional Comments: On continuous o2 2-3lpm Bipap at night Body mass index (BMI) of 40. 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 (Household - for [...] as of this encounter Progress Notes * Fabian Gonzalez PA-C - 10/13/2024 11:06 AM EST Images from the original note were not included. [facility] Provider Visit Assessment and Plan Assessment & Plan Hypertensive heart disease with chronic diastolic congestive [...] 40mg daily Weigh daily, low sodium diet Chronic respiratory failure with hypoxia and hypercapnia (HCC) Continuous o2 at 2.5-3L COPD, group D, by GOLD 2017 classification ([facility]) "RED FLAG" COPD symptoms: Increased dyspnea on exertion Cough Wheezing Medication Regimen All Classes - JULIA Class D - Inhaled Oinqcbqtkfpypt-IXFT-TUVS Combination Inhaler (Trellegy) Theophylline Remote Patient Monitoring Vendor: No Connected RPM Device(s): Traditional Scale Traditional Pulse Ox Self-Management plan Prednisone 40mg daily for 5 days Rx Oral Antibiotic Rx (see medication list) High frequency nebulizer treatments every 4-6 hours around the clock Exacerbation plan Chest Xray Additional Comments: Breathing at baseline today Has rescue kit available if needed Ulcer of right lower extremity with fat layer exposed (HCC) Aquacel and optifoam treatment to RLE Wound pic uploaded to chart with permission of patient Additional Medical Decision Making: Patient lives in 2 story home with multiple family members, has 1st floor setup Patient manages medications At baseline today Ongoing wound care RLE, monitor for infection Reports he continues to have [facility], but no longer has PT/OT Plans to go outside for a walk later today with son Scheduled appointments in the next 60 days: Future Appointments-next 60 days Date/Time Provider Specialty Dept Phone 10/13/2024 1:00 PM Fabian Gonzalez PA-C [facility] [phone] 10/26/2024 5:30 PM Michelle Kim RN [facility] [phone] A total of 35 minutes was spent face to face (via video-based telemedicine if designated as a telemedicine visit) Subjective Subjective Is this a Telemedicine Visit? No, this is an Home Visit. Reason For [facility] Visit: Transition of Care Current Concerns: Bala Olivares Cliff Hall is a 69 year old male seen today for a [facility] provider visit. PMH includes CHF, COPD, chronic respiratory failure, HTN, afib, pulmonary HTN, CRISTOFER, CKD3, DM2 09/13-09/26/24 - [facility] - acute on chronic resp failure, CHF Today's concerns are: Recent admission as above Did have some hypotension during admission with diuretics, which has resolved Has seen pcp for f/u Torsemide increased back to 40mg and took additional 20mg daily x 3 last week Today reports feeling back to baseline Denies SOB at rest Has ongoing BERRY Using continuous o2 at 2.5-3L, BiPAP at hs Nebulizer qid Denies chest pain, palpitations Denies cough, fever/chills States he is taking all meds as ordered Weighing daily and has been consistent Has aide coming to the home twice weekly to help with self care/hygiene Also has HH SN to help with wound care Wound to RLE, treating with aquacel and optifoam Also has some excoriation of buttocks, using zinc Additional Current Outpatient Medications Medication Sig Dispense Refill [...] Tablet in the evening.) 180 Tablet 3 Albuterol Sulfate HFA 108 (90 Base) MCG/ACT Inhalation Aerosol Solution Inhale 2 Puffs by mouth every 6 hours as needed for Shortness of Breath or Wheezing. 54 g 1 Atorvastatin Calcium 80 MG Oral [...] by the anticoagulation clinic. 100 Tablet 3 Enalapril Maleate 2.5 MG Oral Tablet (Vasotec) Take 1 Tablet by mouth in the morning. 90 Tablet 2 predniSONE 20 MG Oral Tablet (Deltasone) Take [...] Ellipta 100-62.5-25 MCG/ACT Aerosol Powder Breath Activated (Flqujclrbqi-Nxaihqhgthjx-Rcuqxqudlk) Inhale 1 Puff by mouth in the morning. 180 Blister Dosing Unit 3 Carvedilol 3.125 MG Oral Tablet (Coreg) Take 1 Tablet by mouth in the morning and 1 Tablet before bedtime. With food. 180 Tablet 3 No current facility-administered medications for this visit. I have reviewed the following results: CMP, CBC, and B12 No results found for: "PRO BNP", "LEFT VENTRICULAR EJECTION FRACTION" Objective Objective There were no vitals filed for this visit. Last Weights: Wt Readings from Last 3 Encounters: 10/06/24 133.8 kg (295 lb) 08/03/24 135.2 kg (298 lb) 06/15/24 (!) 142.4 kg (314 lb) Last BPs: BP Readings from Last 4 Encounters: 10/06/24 137/70 09/27/24 108/60 09/10/24 130/68 08/14/24 116/60 General: alert, no distress, and obese Neuro: alert & oriented x 3 with fluent speech Heart: regular rate & rhythm and no murmur Lungs: decreased breath sounds, few rales in bases, no wheezing Abdomen: abdomen soft, non-tender, obese, and normal bowel sounds Ext: +edema bilat LE with chronic stasis changes, small stasis ulcer RLE documented in this encounter Miscellaneous Notes * Assessment & Plan Note - Fabian Gonzalez PA-C - 10/13/2024 12:36 PM EST Associated Problem(s): Hypertensive heart disease with chronic [...] 40mg daily Weigh daily, low sodium diet * Assessment & Plan Note - Fabian Gonzalez PA-C - 10/13/2024 12:36 PM EST Associated Problem(s): Chronic respiratory failure with hypoxia and hypercapnia (HCC) Continuous o2 at 2.5-3L * Assessment & Plan Note - Fabian Gonzalez PA-C - 10/13/2024 12:36 PM EST Associated Problem(s): COPD, group D, by GOLD 2017 classification ([facility]) "RED FLAG" COPD symptoms: Increased dyspnea on exertion Cough Wheezing Medication Regimen All Classes - JULIA Class D - Inhaled Hvdsppsrxpkydv-ILPC-IDBG Combination Inhaler (Trellegy) Theophylline Remote Patient Monitoring Vendor: No Connected RPM Device(s): Traditional Scale Traditional Pulse Ox Self-Management plan Prednisone 40mg daily for 5 days Rx Oral Antibiotic Rx (see medication list) High frequency nebulizer treatments every 4-6 hours around the clock Exacerbation plan Chest Xray Additional Comments: Breathing at baseline today Has rescue kit available if needed documented in this encounter Plan of Treatment Upcoming Encounters Date Type Department Care Team (Late st Contact Info) Description 10/26/2024 5:30 PM EST [facility] [address] [facility] [place] [address] Michelle Kim RN [address] [place] [address] Health Maintenance Due Date Last Done Comments Alpha-1 Antitrypsin 1974 CKD PHOS USE SMARTSET 18787 1974 DTap/Tdap Vaccines (1 - Tdap) 1975 [...] COPD 10/06/2025 10/06/2024 CKD HGB USE SMARTSET 11039 10/12/202510/12, 10/12/2024, 09/07/2024, Additional history exists Pneumococcal [...] Advanced care planning/counseling discussion Other specified counseling Hypertensive heart disease with chronic diastolic congestive heart failure (HCC)- Primary Chronic respiratory failure with hypoxia and hypercapnia (HCC) COPD, group D, by GOLD 2017 classification (HCC) Ulcer of right lower extremity with fat layer exposed (HCC) documented in this encounter Care Teams Modern Greek Studies Professor Relationship Specialty Start Date End Date Charley Crane MD [address] [place] [address] PCP - General Internal Medicine 06/04/23 documented as of this encounter
--- OUTSIDE RECORDS SUMMARY | 2024-10-21 20:57 | External Medical Summary ---
Author Name Unknown Address Unknown Organization K01:[facility] [place] [address] [place] [address] Laboratory Report Ordering Provider Test Date Status VIRGIL BORREGO 10/12/2024 11:45:00 Final Observation Date Value Abnormality Reference (Units ) Status TSH 10/12/2024 11:45:00 2.37 0.27-4.20 (uIU/mL) Final Performing Location [facility] - [address] [place] [address]
--- OUTSIDE RECORDS SUMMARY | 2024-10-21 20:57 | External Medical Summary ---
Author Name Unknown Address Unknown Organization K01:[facility] [place] [facility] [place] [address] Laboratory Report Ordering Provider Test Date Status VIRGIL BORREGO 10/12/2024 11:45:00 Final Observation Date Value Abnormality Reference (Units ) Status WBC, Total 10/12/2024 11:45:00 7.21 4.00-10.8 0 (K/uL) Final RBC 10/12/2024 11:45:00 3.71 4.50-5.25 (M/uL) Final Hemoglobin 10/12/2024 11:45:00 9.5 Below low normal 14 .0-16.8 (g/dL) Final Anemia reflex testing trigge rs on a HGB < 12.0 for Females and HGB < 13.0 for Males in accordance with the WHO Anemia Guidelines
Anemia reflex testing triggers on a HGB < 12.0 for Females and HGB < 13.0 for Males in accordance with the WHO Anemia Guidelines HCT 10/12/2024 11:45:00 33.9 Below low normal 40. 0-48.4 (%) Final MCV 10/12/2024 11:45:00 91.4 82.0-99.5 (fL) Final MCH 10/12/2024 11:45:00 25.6 27.0-34.0 (pg) Final MCHC 10/12/2024 11:45:00 28.0 32.0-36.0 (g/dL) Final RDW 10/12/2024 11:45:00 16.9 11.5-15.5 (%) Final Platelets 10/12/2024 11:45:00 263 140-400 (K /uL) Final MPV 10/12/2024 11:45:00 10.2 6.6-11.1 ( fL) Final Nucleated erythrocytes/100 leukocytes [Ratio] in Blood by Automated count 10/12/2024 11:45:00 0 <=0 (/100 WBCs) Final Performing Location [facility] - [address] [facility] [address]
--- OUTSIDE RECORDS SUMMARY | 2024-10-21 20:57 | External Medical Summary | Summary of Care ---
Author Name Unknown Organization [facility] Address [address] [place] [address] Phone [phone] Care Team Providers Care Records Officer Name Role Phone Charley Crane MD Primary Care Provider [phone] Reason for Visit * Reason Onset Date Comments Fax 10/07/2024 Encounter Details Date Type Department Care Team (Late st Contact Info) Description 10/07/2024 Telephone [facility] [address] [place] [id number] Charley Crane MD [address] [place], [place] [id number] Fax Allergies Active Allergy Reactions Criticality Noted Date Comments Cephalexin Other (Please comment) 08/03/2024 Taking it effect his warfarin documented as of this encounter (statuses as of 10/12/2024) Medications Centrum Silver 50+Men Oral Tablet Take [...] as of this encounter (statuses as of 10/12/2024) Active Problems Problem Noted Date Diagnosed Date [...] classification 11/04 Overview: Per COPD GOLD Classification salvage determiner current use of anticoagulant therapy 0 2023 Longstanding persistent atrial fibrillation 06/29 Assessment & Plan (07/01/2024 9:45 AM EDT): Rate controlled Continue coumadin Hypertension goal BP (blood pressure) < 130/80 0 07/17/2023 Dyslipidemia, goal LDL below 70 07/17/2023 Atherosclerosis of [place] co ronary artery without angina pectoris 07/05/2023 [...] Jardiance) Remote Patient Monitoring Vendor[place] [facility] [place](s): Connected Scale Continuous Monitoring Device Self [...] as of this encounter (statuses as of 10/12/2024) Resolved Problems Problem Noted Date Diagnosed Date [...] Classes - JULIA Class D - Inhaled Vdfoqqgxiyjqsg-HVXN-JGUV Combination Inhaler (Trellegy) Remote Patient Monitoring Vendor: [facility] Device(s): Continuous Monitoring Device Traditional Scale Self-Management plan High frequency nebulizer treatments every 4-6 hours around the clock Exacerbation plan Chest Xray Additional Comments: On continuous o2 2-3lpm Bipap at night Body mass index (BMI) of 40. 0 to 44.9 in adult 07/08/2023 07/09/2024 Overview: Per Obesity protocol Atherosclerosis of [place] co ronary artery without angina pectoris 07/05/2023 08/29/2023 Dyspnea 07/04/2023 08/13/2023 Occupational exposure in workplace 07/04/2023 02/14/2024 Chronic congestive heart failure 06/08/2023 07/05/2023 COPD, severe 06/08/2023 07/11/2023 Overview: Per COPD GOLD Classification Chronic hypoxemic respiratory failure 06/08/2023 07/04/2023 Chronic respiratory failure with hypoxia, on home oxygen therapy 06/08/2023 08/29/2023 Diabetes mellitus without complication 06/08/2023 08/29/2023 documented as of this encounter (statuses as of 10/12/2024) Immunizations Name Administration Dates Next Due Pneumococcal [...] 10/12/2024 Does the household have a re gular [...] Telephone Encounter - Charley Crane MD - 10/12/2024 2:57 PM EST Ordered DME Please fax * Telephone Encounter - Johana Kennedy LPN - 10/12/2024 2:13 PM EST Dme order needed for Cpap supplies * Telephone Encounter - Emerita Lyons OSA - 10/07/2024 2:51 PM EST Caller requesting the following information to be faxed: Name/Company of caller: Isa from [facility]. Information requested to be faxed: Patient's order for Cpap supplies. Fax number: [phone] Attention to Name/Company: Any additional information?: Isa states that the order would need to go through [facility]. documented in this encounter Plan of Treatment Upcoming Encounters Date Type Department Care Team (Late st Contact Info) Description 10/13/2024 6:00 AM EST Anticoagulation [facility], [address] [place] [address] [facility], [address] [place] [address] 10/26/2024 5:30 PM EST Home Visit [facility], [facility] [address] [place] [address] Michelle Kim, RN [address] [place] [address] Health Maintenance Due Date Last Done Comments Alpha-1 Antitrypsin 1974 CKD PHOS USE SMARTSET 10888 1974 DTap/Tdap Vaccines (1 - Tdap) 1975 [...] 06/15/2025 06/15/2024, 06/21/2023 CKD HGB USE SMARTSET 26236 09/07/202509/07, 09/07/2024, 06/15/2024, Additional history exists O2 [...] Advanced care planning/counseling discussion Other specified counseling CRISTOFER (obstructive sleep apnea)- Primary Obstructive sleep apnea (adult) (pediatric) BiPAP (biphasic positive airway pressure) dependence Dependence on other enabling machine documented in this encounter Care Teams Records Officer Relationship Specialty Start Date End Date Charley Crane MD [address] [facility] [place] [address] PCP - General Internal Medicine 06/04/23 documented as of this encounter
--- OUTSIDE RECORDS SUMMARY | 2024-10-21 20:57 | External Medical Summary | Summary of Care ---
Author Name Unknown Organization [facility] Address [address] [place] [facility] [place] [address] Phone [phone] Care Team Providers Care Office Machinery Or Equipment Installer Name Role Phone Charley Crane MD Primary Care Provider [phone] Reason for Visit * Reason Onset Date Comments [facility]: Maintenance 10/18/2024 Encounter Details Date Type Department Care Team (Late st Contact Info) Description 10/18/2024 8:45 AM EST Scheduled Telephone [facility], [facility] [address] [place] [address] [facility], Nurse [facility] [address] [place] [address] Allergies Active Allergy Reactions Criticality Noted Date Comments Cephalexin Other (Please comment) 08/03/2024 Taking it effect his warfarin documented as of this encounter (statuses as of 10/18/2024) Medications Centrum Silver 50+Men Oral Tablet Take [...] tions:COPD, group D, by GOLD 2017 classification ([facility] [...] as of this encounter (statuses as of 10/18/2024) Active Problems Problem Noted Date Diagnosed Date [...] Classes - JULIA Class D - Inhaled Uivnsoyapxfevm-KIHB-ILUV Combination Inhaler (Trellegy) Theophylline Remote Patient Monitoring Vendor: No Connected RPM Device(s): Traditional Scale Traditional Pulse Ox Self-Management plan Prednisone 40mg daily for 5 days Rx Oral Antibiotic Rx (see medication list) High frequency nebulizer treatments every 4-6 hours around the clock Exacerbation plan Chest Xray Additional Comments: Breathing at baseline today Has rescue kit available if needed [facility] current use of anticoagulant therapy 0 2023 Longstanding persistent atrial fibrillation 06/29 Assessment & Plan (07/01/2024 9:45 AM EDT): Rate controlled Continue coumadin Hypertension goal BP (blood pressure) < 130/80 0 07/17/2023 Dyslipidemia, goal LDL below 70 07/17/2023 Atherosclerosis of [place] co ronary artery without angina pectoris 07/05/2023 [...] as of this encounter (statuses as of 10/18/2024) Resolved Problems Problem Noted Date Diagnosed Date [...] Classes - JULIA Class D - Inhaled Yosmzntixptqkd-GXHK-UJDD Combination Inhaler (Sandro) Remote Patient Monitoring Vendor: Current [facility] Device(s): Continuous Monitoring Device Traditional Scale Self-Management plan High frequency nebulizer treatments every 4-6 hours around the clock Exacerbation plan Chest Xray Additional Comments: On continuous o2 2-3lpm Bipap at night Body mass index (BMI) of 40. 0 to 44.9 in adult 07/08/2023 07/09/2024 Overview: Per Obesity protocol Atherosclerosis of [place] co ronary artery without angina pectoris 07/05/2023 08/29/2023 Dyspnea 07/04/2023 08/13/2023 Occupational exposure in workplace 07/04/2023 02/14/2024 Chronic congestive heart failure 06/08/2023 07/05/2023 COPD, severe 06/08/2023 07/11/2023 Overview: Per COPD GOLD Classification Chronic hypoxemic respiratory failure 06/08/2023 07/04/2023 Chronic respiratory failure with hypoxia, on home oxygen therapy 06/08/2023 08/29/2023 Diabetes mellitus without complication 06/08/2023 08/29/2023 documented as of this encounter (statuses as of 10/18/2024) Immunizations Name Administration Dates Next Due Pneumococcal [...] encounter Miscellaneous Notes * Telephone Encounter - Stacey Brunner RN - 10/18/2024 11:56 AM EST Bala Coronado Jr. Is scheduled for a phone call this day to follow up on his breathing and check if covid 19 test was done at home. Bala called [facility] yesterday and reported cough, congestion, and lower oxygen level. Patient asking about starting rescue kit. Provider was contacted and recommended covid test. Patient did not have home covid test. He was advised to start z pack. Called and spoke to Bala. States he is doing pretty good. He started the z pack and someone is bringing him a covid test to take. Reports nasal congestion. No worsening SOB. SpO2 95% on O2 3L/ min. Coughing up a little bit of mucous, dark green in color. Provider had advised yesterday that he can start prednisone if covid negative, would recommend paxlovid if covid positive. Patient will start prednisone if his test is negative. Instructed on deep breathing/ coughing exercises and use of nebulizer as ordered. Encouraged patient to call [facility] with any questions or with any new or worsening symptoms. Follow up call scheduled for tomorrow. Stacey Brunner RN, BSN [facility]or [facility] documented in this encounter Plan of Treatment Upcoming Encounters Date Type Department Care Team (Late st Contact Info) Description 10/19/2024 10:30 AM EST Scheduled Telephone [facility] [place], [address] [place] [address] Coordinator, [facility] [address] [facility] [place] [address] 10/26/2024 7:15 AM EST Laboratory [facility] [address] [facility] [address] [facility] [address] [facility] [address] 10/26/2024 5:30 PM EST Home Visit [facility] [place], [facility] [address] [facility] [place] [address] Michelle Kim RN [address] [facility] [place] [address] 10/27/2024 6:00 AM EST Anticoagulation [facility], [facility] Peace [address] [place] [address] [place] [address] [facility], [address] [place] [address] Health Maintenance Due Date Last Done Comments Alpha-1 Antitrypsin 1974 CKD PHOS USE SMARTSET 51220 1974 DTap/Tdap Vaccines (1 - Tdap) 1975 [...] COPD 10/06/2025 10/06/2024 CKD HGB USE SMARTSET 09820 10/12/202510/12, 10/12/2024, 09/07/2024, Additional history exists Pneumococcal [...] filedocumented as of this encounter Care Teams Office Machinery Or Equipment Installer Relationship Specialty Start Date End Date Charley Crane MD PCP - General Internal Medicine 06/04/23 documented as of this encounter
--- OUTSIDE RECORDS SUMMARY | 2024-10-21 20:57 | External Medical Summary | Summary of Care ---
Author Name Unknown Organization [facility] Address [address] [place] [address] Phone [phone] Care Team Providers Care Technician Test Systems Name Role Phone Charley Crane MD Primary Care Provider [phone] Encounter Details Date Type Department Care Team (Late st Contact Info) Description 10/10/2024 Orders Only PATIENT PORTAL DO NOT DELETE THIS DEPT USED BY [place] [id number] Allergies Active Allergy Reactions Criticality Noted Date Comments Cephalexin Other (Please comment) 08/03/2024 Taking it effect his warfarin documented as of this encounter (statuses as of 10/10/2024) Medications Centrum Silver 50+Men Oral Tablet Take [...] GOLD 2017 classification ([facility]) Take two tablets by mouth on first [...] as of this encounter (statuses as of 10/10/2024) Active Problems Problem Noted Date Diagnosed Date [...] goal LDL below 70 07/17/2023 Atherosclerosis of [place] co ronary artery without angina pectoris [...] Remote Patient Monitoring Vendor: [facility] Device(s): Connected Scale Continuous Monitoring Device Self [...] as of this encounter (statuses as of 10/10/2024) Resolved Problems Problem Noted Date Diagnosed Date [...] Classes - JULIA Class D - Inhaled Tgyijfxaprzmbp-OHFG-EBHO Combination Inhaler (Sandro) Remote Patient Monitoring Vendor: [facility] Device(s): Continuous Monitoring Device Traditional Scale Self-Management plan High frequency nebulizer treatments every 4-6 hours around the clock Exacerbation plan Chest Xray Additional Comments: On continuous o2 2-3lpm Bipap at night Body mass index (BMI) of 40. 0 to 44.9 in adult 07/08/2023 07/09/2024 Overview: Per Obesity protocol Atherosclerosis of [place] co ronary artery without angina pectoris [...] as of this encounter (statuses as of 10/10/2024) Immunizations Name Administration Dates Next Due Pneumococcal [...] EST Laboratory Lab Mobile Phlebotomy [facility] [address] [employer] [address] [place] [address] [facility], Gml Mobile Home Draw [address] [place] [address] 10/12/2024 12:00 PM EST Home Visit [facility] [address] [facility] [place] [address] Chacha Kennedy, Community Health Beverage Server [address] [facility] [place] [address] 10/13/2024 6:00 AM EST Anticoagulation Centralized Clinical Pharmacy Services, Oscar Peace [address] [place] [address] [place] [address] [facility], [address] [place] [address] 10/26/2024 5:30 PM EST [facility] Visit [facility], [facility] [place] [address] Michelle Kim RN [address] [place] [address] Health Maintenance Due Date Last Done Comments Alpha-1 Antitrypsin 1974 CKD PHOS USE SMARTSET 40162 1974 DTap/Tdap Vaccines (1 - Tdap) 1975 [...] 06/15/2025 06/15/2024, 06/21/2023 CKD HGB USE SMARTSET 63918 09/07/202509/07, 09/07/2024, 06/15/2024, Additional history exists O2 [...] filedocumented as of this encounter Care Teams Technician Test Systems Relationship Specialty Start Date End Date Charley Crane MD [address] [place] [address] PCP - General Internal Medicine 06/04/23 documented as of this encounter
--- OUTSIDE RECORDS SUMMARY | 2024-10-21 20:57 | External Medical Summary | Summary of Care ---
Author Name Unknown Organization [facility] Address [address] [place] [address] Phone [phone] Care Team Providers Care Works Manager Name Role Phone Charley Craen MD Primary Care Provider [phone] Reason for Visit * Reason Onset Date Comments Fax 10/07/2024 Encounter Details Date Type Department Care Team (Late st Contact Info) Description 10/07/2024 Telephone 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 0 2023 Longstanding persistent atrial fibrillation 06/29 Assessment & Plan (07/01/2024 9:45 AM EDT): Rate controlled Continue coumadin Hypertension goal BP (blood pressure) < 130/80 0 07/17/2023 Dyslipidemia, goal LDL below 70 07/17/2023 Atherosclerosis of [place] co ronary artery without angina pectoris 07/05/2023 [...] Regimen SGLT (ex: Jardiance) DM Secondary Prevention ANEGL Inhibitor / ARB Additional Comments Hemoglobin AIC [...] Classes - JULIA Class D - Inhaled Zlafdhvqyrobqd-NVAF-MJIQ Combination Inhaler (Trellegy) Remote Patient Monitoring Vendor: [facility] Device(s): Continuous Monitoring Device Traditional Scale Self-Management plan High frequency nebulizer treatments every 4-6 hours around the clock Exacerbation plan Chest Xray Additional Comments: On continuous o2 2-3lpm Bipap at night Body mass index (BMI) of 40. 0 to 44.9 in adult 07/08/2023 07/09/2024 Overview: Per Obesity protocol Atherosclerosis of [place] co ronary artery without angina pectoris 07/05/2023 [...] Encounter - Johana Kennedy LPN - 10/12/2024 3:41 PM EST Orders sent. * Telephone Encounter - Charley Crane MD - 10/12/2024 2:57 PM EST Ordered DME Please fax * Telephone Encounter - Johana Kennedy LPN - 10/12/2024 2:13 PM EST Dme order needed for Cpap supplies * Telephone Encounter - Emerita Lyons OSA - 10/07/2024 2:51 PM EST Caller requesting the following information to be faxed: Name/Company of caller: Isa from [facility]. Information requested to be faxed: Patient's order for Cpap supplies. Fax number: [phone] Attention to Name/Company: Any additional information?: Isa states that the order would need to go through [facility]. documented in this encounter Plan of Treatment Upcoming Encounters Date Type Department Care Team (Late st Contact Info) Description 10/13/2024 6:00 AM EST Anticoagulation Centralized Clinical Pharmacy Services, Oscar Peace [address] [place] [address] [place] [address] [facility], [address] [place] [address] 10/26/2024 5:30 PM EST Home Visit [facility], [facility] [address] [place] [address] Michelle Kim, RN [address] [place] [address] Health Maintenance Due Date Last Done Comments Alpha-1 Antitrypsin 1974 CKD PHOS USE SMARTSET 78720 1974 DTap/Tdap Vaccines (1 - Tdap) 1975 [...] 06/15/2025 06/15/2024, 06/21/2023 CKD HGB USE SMARTSET 03932 09/07/202509/07, 09/07/2024, 06/15/2024, Additional history exists O2 [...] COPD, group B, by GOLD 2017 classification ([facility])- Primary Chronic respiratory failure with hypoxia and hypercapnia (HCC) Chronic heart failure with preserved ejection fraction (HCC) Chronic pain of both knees COPD exacerbation ([facility])- Primary Obstructive chronic bronchitis with exacerbation Chronic respiratory failure with hypoxia and hypercapnia ([facility]) Hypertensive heart disease with chronic diastolic congestive heart failure ([facility]) Longstanding persistent atrial fibrillation ([facility]) Type 2 diabetes mellitus with hemoglobin A1c goal of less than 7.0% ([facility]) Advanced care planning/counseling discussion Other specified counseling [facility] (obstructive sleep apnea)- Primary Obstructive sleep apnea (adult) (pediatric) BiPAP (biphasic positive airway pressure) dependence Dependence on other enabling machine documented in this encounter Care Teams Works Manager Relationship Specialty Start Date End Date Charley Crane MD [address] [place] [address] PCP - General Internal Medicine 06/04/23 documented as of this encounter
--- OUTSIDE RECORDS SUMMARY | 2024-10-21 20:57 | External Medical Summary ---
Author Name Unknown Address Unknown Organization K01:[facility] [place] [address] [place] [address] Laboratory Report Ordering Provider Test Date Status VIRGIL BORREGO 10/12/2024 11:45:00 Final Observation Date Value Abnormality Reference (Units ) Status Ferritin 10/12/2024 11:45:00 59 30-400 (ng /mL) Final Performing Location [facility] [place] [address] [place] [address]
--- OUTSIDE RECORDS SUMMARY | 2024-10-21 20:57 | External Medical Summary ---
Author Name UNSPECIFIED Address Unknown Organization [facility] History of Encounters Reason for Assessment: Start [...] and Psychiatric Symptoms: None Current Ability: Bathing: Unable to use the shower or tub, but able to participate in bathing self in bed, at the sink, in bedside chair, or on commode, with the assistance or supervision of another person throughout the bath. Current Ability: Ambulation: Able to wal k only with the supervision or assistance of another person at all times. Current: Management Of Oral Medications: Able to take medication(s) at the correct times if: (a) individual dosages are prepared in advance by another person; OR (b) another person develops a drug diary or chart Problems Primary Home Care Diagnosis ICD Code: I5 0.9, Heart failure, unspecified Home Care Diagnosis 1: ICD Code: I27.20^ ^ Home Care Diagnosis 1: Severity Ratin Home Care Diagnosis 2: ICD Code: S81.801 D, Unspecified open wound, right lower leg, subs encntr Home Care Diagnosis 2: [facility] Ratin Home Care Diagnosis 3: ICD Code: J44.1, Chronic obstructive pulmonary disease w (acute) exacerbation Home Care Diagnosis 3: Severity Ratin Home Care Diagnosis 4: ICD Code: J96.21, Acute and chronic respiratory failure with hypoxia Home Care Diagnosis 4: Severity Ratin Home Care Diagnosis 5: ICD Code: J96.22, Acute and chronic respiratory failure with hypercapnia Home Care Diagnosis 5: Severity Ratin
--- OUTSIDE RECORDS SUMMARY | 2024-10-21 20:58 | External Medical Summary | Summary of Care ---
Author Name Unknown Organization [facility] Address [address] [facility] [place] [address] Phone [phone] Care Team Providers Care Recreational Vehicle Resort Manager Name Role Phone Charley Crane MD Primary Care Provider [phone] Reason for Visit * Reason Onset Date Comments [facility]: Maintenance 08/14/2024 Encounter Details Date Type Department Care Team (Late st Contact Info) Description 08/14/2024 Telephone [facility], [facility] [address] [place] [address] Michelle Kim, RN [address] [facility] [place] [address] [facility]: Maintenance Allergies Active Allergy Reactions Criticality Noted Date Comments Cephalexin Other (Please comment) 08/03/2024 Taking it effect his warfarin documented as of this encounter (statuses as of 09/23/2024) Medications Centrum Silver 50+Men Oral Tablet Take 1 Tablet by mouth daily. Active oxygen IN GAS Use 3 L/min(Oxygen) as directed continuous. Uses 2.5 LPM at night with BIPAP and as needed during the day Active BiPAP every night at bedtime. Active Torsemide 20 MG Oral Tablet (Demadex) Take 2 tablets by mouth once daily 180 Tablet 3 01/19/ 024 Active Additional Information Patient taking differently: 40 mg Oral BID (.AM/PM), (No instructions reported), Reported on 07/31/2024 Albuterol Sulfate HFA 108 (90 Base) MCG/ACT Inhalation Aerosol Solution Inhale 2 Puffs by mouth every 6 hours as needed for Shortness of Breath or Wheezing. 54 g 1 Active Atorvastatin Calcium 80 MG Oral Tablet [...] and evening meals. 180 Tablet 3 024 Active Pantoprazole Sodium 40 MG Oral Tablet [...] knees and shoulders. 100 g 1 Active Empagliflozin 10 MG Oral Tablet (Jardiance) Take 1 Tablet by mouth in the morning. 90 Tablet 3 024 2023 Discontinued Spironolactone 25 MG Oral Tablet (Aldactone) Take 1 Tablet by mouth in the morning. 90 Tablet 3 024 2023 Discontinued( Refill) Warfarin Sodium 10 MG Oral Tablet (Coumadin) Take 1 to 1.5 tablets by mouth every day in the evening or as directed by the anticoagulation clinic. 100 Tablet 3 024 2023 Discontinued( Refill) Fluticasone Propionate 50 MCG/ACT Nasal Suspension (Flonase) Administer 2 Sprays into each nostril in the morning. 16 g 1 024 2023 Discontinued( Refill) Ipratropium-Albu terol 0.5-2.5 (3) MG/3ML Inhalation Solution (Duoneb) INHALE THE CONTENTS OF 1 VIAL IN NEBULIZER EVERY 6 HOURS NEEDED FOR SHORTNESS OF BREATH 360 mL 3 024 2023 Discontinued predniSONE 20 MG Oral Tablet (Deltasone)Indic ations:COPD, group D, by GOLD 2017 classification ([facility]) Take 2 Tablets by mouth in the morning. Rescue kit. Use only as instructed. 10 Tablet 024 2023 Discontinued( Refill) Enalapril Maleate 2.5 MG Oral Tablet (Vasotec)Indicat ions:Hypertensio n goal BP (blood pressure) < 130/80 Take 1 Tablet by mouth in the morning. 30 Tablet 11 024 2023 Discontinued( Refill) documented as of this encounter (statuses as of 09/23/2024) Active Problems Problem Noted Date Diagnosed Date [...] goal LDL below 70 07/17/2023 Atherosclerosis of [place] co ronary artery without angina pectoris [...] empagliflozin (ex. Jardiance) Remote Patient Monitoring Vendor: [facility] Device(s): Connected Scale Continuous Monitoring Device Self [...] as of this encounter (statuses as of 09/23/2024) Resolved Problems Problem Noted Date Diagnosed Date [...] Classes - JULIA Class D - Inhaled Bxnjhxtvwfqkbl-XPIF-NBSP Combination Inhaler (Silverllegy) Remote Patient Monitoring Vendor: [facility] Device(s): Continuous Monitoring Device Traditional Scale Self-Management plan High frequency nebulizer treatments every 4-6 hours around the clock Exacerbation plan Chest Xray Additional Comments: On continuous o2 2-3lpm Bipap at night Body mass index (BMI) of 40. 0 to 44.9 in adult 07/08/2023 07/09/2024 Overview: Per Obesity protocol Atherosclerosis of [place] co ronary artery without angina pectoris [...] as of this encounter (statuses as of 09/23/2024) Immunizations Name Administration Dates Next Due Pneumococcal [...] Phlebotomy [facility] [address] [facility] [place] [address] [facility], G[facility] Mobile Home Draw [address] [facility] [place] [address] 09/29/2024 6:00 AM EST Anticoagulation Centralized Clinical Pharmacy Services, Oscar Peace [address] [place] [address] [place] [address] [place] [address] 10/01/2024 4:00 PM EST [facility] [address] [facility] [place] [address] Michelle Kim RN [address] [facility] [place] [address] 10/06/2024 2:40 PM EST [facility] [address] [place] [phone] Charley Crane MD [address] [place] [address] 10/08/2024 1:30 PM EST Office Visit Orthopaedics, Russel Torres [address] [place] [address] [place] [address] Juan Mays PA-C [address] [place] [address] Health Maintenance Due Date Last Done Comments Alpha-1 Antitrypsin 1973 CKD PHOS USE SMARTSET 68065 1974 DTap/Tdap Vaccines (1 - Tdap) 1975 [...] 06/15/2025 06/15/2024, 06/21/2023 CKD HGB USE SMARTSET 85038 09/07/202509/07, 09/07/2024, 06/15/2024, Additional history exists O2 [...] 10.2 mg/dL 09/07/2024 2:07 PM EST [facility] Blood Venous blood specimen / Unknown Venipuncture / Unknown 09/07/2024 7:49 AM EST 09/07/2024 11:08 AM EST Charley Crane MD LAB BLOOD ORDERABLES Final Resul t [facility]10 [address] [place] [address] documented in this encounter Visit Diagnoses Diagnosis [...] (HCC) documented in this encounter Care Teams Recreational Vehicle Resort Manager Relationship Specialty Start Date End Date Charley Crane MD [address] [facility] [place] [address] PCP - General Internal Medicine 06/04/23 documented as of this encounter
--- OUTSIDE RECORDS SUMMARY | 2024-10-21 20:58 | External Medical Summary | Summary of Care ---
Author Name Unknown Organization [facility] Address [address] [place] [address] Phone [phone] Care Team Providers Care Sap Bi Architect Name Role Phone Charley Crane MD Primary Care Provider [phone] Reason for Visit * Reason Onset Date Comments Durable Medical Equipment 09/07/2024 Oxygen Encounter Details Date Type Department Care Team (Late st Contact Info) Description 09/07/[address] [facility] [address] [place] [address] Charley Crane MD [address] [place] [address] Durable Medical Equipment (Oxygen/) Allergies Active Allergy Reactions Criticality Noted Date Comments Cephalexin Other (Please comment) 08/03/2024 Taking it effect his warfarin documented as of this encounter (statuses as of 09/25/2024) Medications Centrum Silver 50+Men Oral Tablet Take [...] meals. 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 * Telephone Encounter - Silvina Baker OSA - 09/07/2024 1:24 PM EST Patient is calling to say [facility] has been in touch with him They are requesting testing results/records to support the need for Oxygen for patient [facility] Dr. Crane or a nurse to return his call so he can get his Oxygen documented in this encounter Plan of Treatment Upcoming Encounters Date Type Department Care Team (Late st Contact Info) Description 09/28/2024 7:05 AM EST Laboratory Lab Mobile Phlebotomy [facility] [address] [place] [address] [facility], Gml Mobile Home Draw [address] [place] [address] 09/29/2024 6:00 AM EST Anticoagulation Centralized Clinical Pharmacy Services, Oscar Peace [address] [place] [address] [place] [address] [facility] [address] [place] [address] 10/01/2024 4:00 PM EST [facility], [facility] [address] [place] [address] Michelle Kim RN [address] [place] [address] 10/06/2024 2:40 PM EST Office Visit [facility] [address] [facility] [place] [address] Charley Crane MD [address] [facility] [address] 10/08/2024 1:30 PM EST Office [facility] [address] [place] [address] Juan Myas PA-C [address] [place] [phone] Health Maintenance Due Date Last Done Comments Alpha-1 Antitrypsin 1974 CKD PHOS USE SMARTSET 66452 1974 DTap/Tdap Vaccines (1 - Tdap) 1975 [...] 06/15/2025 06/15/2024, 06/21/2023 CKD HGB USE SMARTSET 00743 09/07/202509/07, 09/07/2024, 06/15/2024, Additional history exists O2 [...] filedocumented as of this encounter Care Teams Sap Bi Architect Relationship Specialty Start Date End Date Charley Crane MD [address] [place] [address] PCP - General Internal Medicine 06/04/23 documented as of this encounter
--- OUTSIDE RECORDS SUMMARY | 2024-10-21 20:58 | External Medical Summary | Summary of Care ---
Author Name Unknown Organization [facility] Address [address] [place] [address] Phone [phone] Care Team Providers Care Care Clinician Name Role Phone Charley Crane MD Primary Care Provider [phone] Encounter Details Date Type Department Care Team (Late st Contact Info) Description 09/27/2024 2:00 PM EST [facility] [address] [place] [address] [facility], Nurse [facility] [address] [place] [address] Allergies Active Allergy Reactions Criticality Noted Date Comments Cephalexin Other (Please comment) 08/03/2024 Taking it effect his warfarin documented as of this encounter (statuses as of 09/28/2024) Medications Centrum Silver 50+Men Oral Tablet Take [...] 2017 classification ([facility]) Take two tablets by mouth on [...] Tablet by mouth in the morning. Active Carvedilol 3.125 MG Oral Tablet (Coreg)Indication s:Longstanding persistent atrial fibrillation (HCC),Hypertensio n goal BP (blood pressure) < 130/80,Chronic heart failure with preserved ejection fraction ([facility]) Take 1 Tablet by mouth 2 times a day with morning and evening meals. 180 Tablet 3 04/28/20 24 2023 Disconti nued(Med ication List Clean Up) Diclofenac Sodium 1 % External Gel (Voltaren) Apply 1 Application topically to affected area in the morning and 1 Application before bedtime. Apply to knees and shoulders. 100 g 1 08/10/20 24 2023 Disconti nued(Ref ill) documented as of this encounter (statuses as of 09/28/2024) Active Problems Problem Noted Date Diagnosed Date [...] goal LDL below 70 07/17/2023 Atherosclerosis of [place] co ronary artery without angina pectoris 07/05/2023 [...] as of this encounter (statuses as of 09/28/2024) Resolved Problems Problem Noted Date Diagnosed Date [...] Classes - JULIA Class D - Inhaled Lqhjbqnwlinsrw-OGUZ-TPPE Combination Inhaler (Trellegy) Remote Patient Monitoring Vendor: Current Health Device(s): Continuous Monitoring Device Traditional Scale Self-Management plan High frequency nebulizer treatments every 4-6 hours around the clock Exacerbation plan Chest Xray Additional Comments: On continuous o2 2-3lpm Bipap at night Body mass index (BMI) of 40. 0 to 44.9 in adult 07/08/2023 07/09/2024 Overview: Per Obesity protocol Atherosclerosis of [place] co ronary artery without angina pectoris 07/05/2023 08/29/2023 Dyspnea 07/04/2023 08/13/2023 Occupational exposure in workplace 07/04/2023 02/14/2024 Chronic congestive heart failure 06/08/2023 07/05/2023 COPD, severe 06/08/2023 07/11/2023 Overview: Per COPD GOLD Classification Chronic hypoxemic respiratory failure 06/08/2023 07/04/2023 Chronic respiratory failure with hypoxia, on home oxygen therapy 06/08/2023 08/29/2023 Diabetes mellitus without complication 06/08/2023 08/29/2023 documented as of this encounter (statuses as of 09/28/2024) Immunizations Name Administration Dates Next Due Pneumococcal [...] Sign Reading Time Taken Comments Blood Pressure 108/60 09/27/2024 2:41 PM EST Pulse 68 09/27/2024 2:41 PM EST Temperature 36.1 C (97 F) 09/27/2024 2:4 1 PM EST Respiratory Rate 18 09/27/2024 2:41 PM EST Oxygen Saturation 96% 09/27/2024 2:4 1 PM EST o2 on at 2 l/min via nc Inhaled Oxygen Concentration - - Weight - - Height - - Body Mass Index - - documented in this encounter Progress Notes * Michelle Kim RN - 09/28/2024 8:30 AM EST Current Concerns: Pt seen for JOHN Admitted to [facility] and discharged on 09/26 for CHF Had med changes - restarted back on potassium chloride, Carvedilol discontinued, torsemide changed to 20mg daily Extensively review medications and assisted patient to fill med box for two weeks Pt reports he is going to be looking for other living arrangements, states his DIL did not want himto come back to their home States he was going to go to [facility] post hospitalization but he did PT in the hospital and improved so it was not necessary for rehab He is interested in finding an apartment or even OPAL if he is able to afford it Agrees to SW referral to assist Will be getting [facility] for SN, PT/OT Physical Exam: Physical Exam Constitutional: General: He is not in acute distress. Appearance: He is obese. Cardiovascular: Rate and Rhythm: Normal rate and regular rhythm. Pulses: Normal pulses. Heart sounds: Normal heart sounds. Pulmonary: Effort: Pulmonary effort is normal. Breath sounds: Normal breath sounds. Abdominal: Palpations: Abdomen is soft. Musculoskeletal: Right lower leg: Edema (mild, nonpitting) present. Left lower leg: Edema (mild, nonpitting) present. Skin: General: Skin is warm and dry. Neurological: Mental Status: He is alert. Review of Systems: Review of Systems Constitutional: Negative. Respiratory: Positive for shortness of breath (BERRY - at baseline - with min exertion). Cardiovascular: Positive for leg swelling. Musculoskeletal: Positive for arthralgias and gait problem. Neurological: Positive for weakness (general). Psychiatric/Behavioral: Negative. Care Plan Goal Progress: Patient will maintain optimal mobility & activity level. (Progressing) Start: 07/31/24 Expected End: 11/26/24 Patient will achieve & maintain optimal fluid balance. (Not Progressing) Start: 07/31/24 Expected End: 11/26/24 Patient will have improved cardiac output. (Not Progressing) Start: 07/31/24 Expected End: 11/26/24 GS - [...] Gaps: Care Gaps Care gaps closed this contact: Education;Medications;Plan of Care (POC) (09/28/24827) Type of education: Clinical/disease (09/28/24827) Type of medication care gap: Medication adherence (09/28/24827) Type of plan of care (POC) care gap: Adjustment of plan of care (POC) and/or Integrated Care Plan (ICP);Education and review of exacerbation plan (09/28/24827) documented in this encounter Plan of Treatment Upcoming Encounters Date Type Department Care Team (Late st Contact Info) Description 09/29/2024 6:00 AM EST Anticoagulation Centralized Clinical Pharmacy Services, Oscar Peace [address] [place] [address] [place] [address] [place] [address] 10/01/2024 4:00 PM EST Home Visit [facility] [address] [place] [address] Michelle Kim RN 132 [place] [address] 10/06/2024 2:40 PM EST Office Visit [facility] [address] [place] [phone] Charley Crane MD [address] [facility] [address] 10/08/2024 1:30 PM EST Office Visit Orthopaedics, [facility] [address] [place] [address] [place] [address] Juan Mays PA-C [address] [place] [address] 10/12/2024 12:00 PM EST Home Visit [facility] [address] [place] [address] Chacha Kennedy Community Health Claim Benefit Specialist [address] [place] [address] 10/26/2024 5:30 PM EST [facility] Visit [facility] 132 [facility] [place] [address] Michelle Kim, RN 132 [place] [address] Health Maintenance Due Date Last Done Comments Alpha-1 Antitrypsin 1974 CKD PHOS USE SMARTSET 17169 1974 DTap/Tdap Vaccines (1 - Tdap) 1975 [...] 06/15/2025 06/15/2024, 06/21/2023 CKD HGB USE SMARTSET 99809 09/07/202509/07, 09/07/2024, 06/15/2024, Additional history exists O2 [...] filedocumented as of this encounter Care Teams Care Clinician Relationship Specialty Start Date End Date Charley Crane MD [address] [place] [address] PCP - General Internal Medicine 06/04/23 documented as of this encounter
--- OUTSIDE RECORDS SUMMARY | 2024-10-21 20:58 | External Medical Summary | Summary of Care ---
Author Name Unknown Organization [facility] Address [address] [place] [place] [address] Phone [phone] Care Team Providers Care Pharmacoepidemiologist Name Role Phone Charley Crane MD Primary Care Provider Reason for Visit * Reason Onset Date Comments Medication Refill 09/27/2024 Encounter Details Date Type Department Care Team (Late st Contact Info) Description 09/27/2024 Refill [facility], [facility] 132 [facility] [place] [address] Michelle Kim, RN 132 [facility] [place] [address] Allergies Active Allergy Reactions Criticality Noted Date [...] shoulders. 100 g 1 09/28/20 24 Active Diclofenac Sodium 1 % External Gel [...] Classes - JULIA Class D - Inhaled Xycypjjijkpeus-CPCE-WHOU Combination Inhaler (Sandro) Remote Patient Monitoring Vendor: [...] Telephone Encounter - Charley Crane MD - 09/28/2024 7:54 AM ESTSigned Prescriptions: Disp Refills Diclofenac Sodium 1 % External Gel (Voltar*100 g 1 Sig: Apply 1 Application topically to affected area in the morning and 1 Application before bedtime. Apply to knees and shoulders. Authorizing Provider: CHARLEY CRANE * Telephone Encounter - Michelle Kim RN - 09/27/2024 2:31 PM EST Pt in need of refill of Diclofenac gel Order pended for your review and signature Pharmacy is [facility]! documented in this encounter Plan of Treatment Upcoming Encounters Date Type Department Care Team (Late st Contact Info) Description 09/29/2024 6:00 AM EST Anticoagulation Centralized Clinical Pharmacy Services, Oscar Peace [address] [place] [address] [place] [address] [place] [address] 10/01/2024 4:00 PM EST Home Visit [facility] [address] [place] [address] Michelle Kim, RN [address] [place] [address] 10/06/2024 2:40 PM EST [facility] [address] [place] [phone] Charley Crane MD [address] [place] [address] 10/08/2024 1:30 PM EST Office Visit Orthopaedics, [facility] [address] [place] [address] Juan Mays PA-C [address] [place] [address] 10/12/2024 12:00 PM EST Home Visit [facility] [address] [place] [address] Chacha Kennedy, Community Health Technical Instructor Course Developer [address] [place] [address] 10/26/2024 5:30 PM EST [facility] 132 [facility] [place] [address] Michelle Kim RN 132 [place] [address] Health Maintenance Due Date Last Done Comments Alpha-1 Antitrypsin 1974 CKD PHOS USE SMARTSET 31129 1974 DTap/Tdap Vaccines (1 - Tdap) 1975 [...] 06/15/2025 06/15/2024, 06/21/2023 CKD HGB USE SMARTSET 82212 09/07/202509/07, 09/07/2024, 06/15/2024, Additional history exists O2 [...] filedocumented as of this encounter Care Teams Pharmacoepidemiologist Relationship Specialty Start Date End Date Charley Crane MD [address] [place] [address] PCP - General Internal Medicine 06/04/23 documented as of this encounter
--- OUTSIDE RECORDS SUMMARY | 2024-10-21 20:58 | External Medical Summary | Summary of Care ---
Author Name Unknown Organization [facility] Address [address] [place] [address] Phone [phone] Care Team Providers Care Slat Grader Name Role Phone Charley Crane MD Primary Care Provider [phone] Reason for Visit * Reason Onset Date Comments Children'S Author Documentation 09/29/2024 Encounter Details Date Type Department Care Team (Late st Contact Info) Description 09/29/2024 10:00 AM EST Scheduled Telephone [facility], [facility] [address] [place], [place] [phone] [facility] [address] [place], [place] [phone] Allergies Active Allergy Reactions Criticality Noted Date Comments Cephalexin Other (Please comment) 08/03/2024 Taking it effect his warfarin documented as of this encounter (statuses as of 09/29/2024) Medications Centrum Silver 50+Men Oral Tablet Take [...] shoulders. 100 g 1 09/28/20 24 Active documented as of this encounter (statuses as of 09/29/2024) Active Problems Problem Noted Date Diagnosed Date [...] 11/04 Overview: Per COPD GOLD Classification terminal computer operator current use of anticoagulant therapy 0 [...] as of this encounter (statuses as of 09/29/2024) Resolved Problems Problem Noted Date Diagnosed Date [...] Classes - JULIA Class D - Inhaled Lweqjefbroabfa-TDJK-EMAK Combination Inhaler (Sandro) Remote Patient Monitoring Vendor: [...] as of this encounter (statuses as of 09/29/2024) Immunizations Name Administration Dates Next Due Pneumococcal [...] Telephone Encounter - Nataliya Erazo LCSW - 09/29/2024 12:41 PM EST Worker was consulted by Michelle POLANCO CM Community Resources / placement Chart was reviewed. Worker received a return call from Penny from the [facility]. She informed worker that she was the one out to see Bala in Jul. Pt was offered services and he declined personal care and meals. The Caregiver Support Program was discussed with him and he was provided with a Green Book of resources. If Bala and the family are requesting personal care from an agency, there is a 6/8 month wait list. If one of the family is willing to provide care, the reimbursement process can be started. Bala was provided with the above options and was to discuss the above with family or a family friend. There was no response back to Penny. Worker requested Penny do another assessment due to a recent hospitalization. She was receptive. Worker thanked her for her efforts. Nataliya Erazo LCSW [facility] Real Time Trader [facility] [phone] documented in this encounter Plan of Treatment Upcoming Encounters Date Type Department Care Team (Late st Contact Info) Description 10/01/2024 4:00 PM EST Home Visit [facility] 132 [facility] [place] [address] Michelle Kim, RN 132 [facility] [place] [address] 10/06/2024 2:40 PM EST [facility] [phone] Charley Crane MD [address] [place] [address] 10/08/2024 1:30 PM EST Office Visit Orthopaedics, [facility] [address] [place] [address] Juan Mays PA-C [address] [place] [address] 10/12/2024 7:00 AM EST Laboratory Lab [facility] [address] [facility] [address] [facility], [facility] Mobile Home Draw [address] [place], [place] [address] 10/12/2024 12:00 PM EST Home Visit [facility] [address] [facility] [place] [address] Chacha Kennedy, Community Health Petroleum Terminal Plant Operator [address] [facility] [place] [address] 10/13/2024 6:00 AM EST Anticoagulation Centralized Clinical Pharmacy Services, Oscar Peace [address] [place] [address] [place] [address] [facility], [address] [place] [address] 10/26/2024 5:30 PM EST [facility], [facility] [address] [facility] [place] [address] Michelle Kim, RN [address] [place] [address] Health Maintenance Due Date Last Done Comments Alpha-1 Antitrypsin 1974 CKD PHOS USE SMARTSET 43027 1974 DTap/Tdap Vaccines (1 - Tdap) 1975 [...] 06/15/2025 06/15/2024, 06/21/2023 CKD HGB USE SMARTSET 22178 09/07/202509/07, 09/07/2024, 06/15/2024, Additional history exists O2 [...] filedocumented as of this encounter Care Teams Slat Grader Relationship Specialty Start Date End Date Charley Crane MD [address] [place] [address] PCP - General Internal Medicine 06/04/23 documented as of this encounter
--- OUTSIDE RECORDS SUMMARY | 2024-10-21 20:58 | External Medical Summary | Summary of Care ---
Author Name Unknown Organization [facility] Address [address] [facility] [address] Phone [phone] Care Team Providers Care Maintenance Carpenter Name Role Phone Charley Crane MD Primary Care Provider [phone] Reason for Visit * Reason Onset Date Comments [facility]: Maintenance 09/14/2024 Encounter Details Date Type Department Care Team (Late st Contact Info) Description 09/14/2024 Telephone [facility], [facility] 132 [facility] [place] [address] Coordinator, [facility] 132 [facility] [place] [address] [facility]: Maintenance Allergies Active Allergy Reactions Criticality Noted Date Comments Cephalexin Other (Please comment) 08/03/2024 Taking it effect his warfarin documented as of this encounter (statuses as of 09/14/2024) Medications Centrum Silver 50+Men Oral Tablet Take [...] tions:COPD, group D, by GOLD 2017 classification ([facility] [...] :COPD, group D, by GOLD 2017 classification ([facility]) Take two tablets by mouth on first day, then 1 tablet daily until gone 6 Tablet 09/10/20 24 Active documented as of this encounter (statuses as of 09/14/2024) Active Problems Problem Noted Date Diagnosed Date [...] goal LDL below 70 07/17/2023 Atherosclerosis of [place] co ronary artery without angina pectoris 07/05/2023 [...] as of this encounter (statuses as of 09/14/2024) Resolved Problems Problem Noted Date Diagnosed Date [...] Classes - JULIA Class D - Inhaled Yfliidxcqlxjig-SATI-TOLU Combination Inhaler (Trellegy) Remote Patient Monitoring Vendor: Current Health Device(s): Continuous Monitoring Device Traditional Scale Self-Management plan High frequency nebulizer treatments every 4-6 hours around the clock Exacerbation plan Chest Xray Additional Comments: On continuous o2 2-3lpm Bipap at night Body mass index (BMI) of 40. 0 to 44.9 in adult 07/08/2023 07/09/2024 Overview: Per Obesity protocol Atherosclerosis of [place] co ronary artery without angina pectoris 07/05/2023 08/29/2023 Dyspnea 07/04/2023 08/13/2023 Occupational exposure in workplace 07/04/2023 02/14/2024 Chronic congestive heart failure 06/08/2023 07/05/2023 COPD, severe 06/08/2023 07/11/2023 Overview: Per COPD GOLD Classification Chronic hypoxemic respiratory failure 06/08/2023 07/04/2023 Chronic respiratory failure with hypoxia, on home oxygen therapy 06/08/2023 08/29/2023 Diabetes mellitus without complication 06/08/2023 08/29/2023 documented as of this encounter (statuses as of 09/14/2024) Immunizations Name Administration Dates Next Due Pneumococcal [...] Telephone Encounter - Haily Baca RN - 09/14/2024 8:05 AM EST Phone call from patient stating he wanted to let [facility] staff know he was admitted to [facility] yesterday. Patient states he was admitted for his COPD condition, rescue kit did not help at home. Haily Baca RN [facility] Registered Nurse Navigator Triage documented in this encounter Plan of Treatment Upcoming Encounters Date Type Department Care Team (Late st Contact Info) Description 09/28/2024 7:05 AM EST Laboratory Lab Mobile Phlebotomy [facility] [address] [facility] [place] [address] [facility], Gml Mobile Home Draw [address] [employer] [place] [address] 09/29/2024 6:00 AM EST Anticoagulation Centralized Clinical Pharmacy Services, [address] [place] [address] [facility] [place] [address] 10/01/2024 4:00 PM EST Home Visit [facility] [address] [facility] [place] [address] Michelle Kim RN 132 [facility] [place] [address] 10/06/2024 2:40 PM EST Office Visit [facility] [address] [place] [address] Charley Crane MD [address] [place] [address] Health Maintenance Due Date Last Done Comments Alpha-1 Antitrypsin 1974 CKD PHOS USE SMARTSET 81880 1974 DTap/Tdap Vaccines (1 - Tdap) 1975 [...] 06/15/2025 06/15/2024, 06/21/2023 CKD HGB USE SMARTSET 51937 09/07/202509/07, 09/07/2024, 06/15/2024, Additional history exists O2 [...] filedocumented as of this encounter Care Teams Maintenance Carpenter Relationship Specialty Start Date End Date Charley Crane MD [address], [place] [phone] PCP - General Internal Medicine 06/04/23 documented as of this encounter
--- OUTSIDE RECORDS SUMMARY | 2024-10-21 20:58 | External Medical Summary ---
Author Name UNSPECIFIED Address Unknown Organization [facility] History of Encounters Reason for Assessment: Transferred to an inpatient facility - patient not discharged from agency Inpatient Facility where the patient been admitted: Hospital
--- OUTSIDE RECORDS SUMMARY | 2024-10-21 20:58 | External Medical Summary | Summary of Care ---
Author Name Unknown Organization [facility] Address [address] [place] [address] Phone [phone] Care Team Providers Care Certified Medical Transcriptionist Name Role Phone Charley Crane MD Primary Care Provider [phone] Reason for Visit * Reason Onset Date Comments FYI 09/14/2024 Encounter Details Date Type Department Care Team (Late st Contact Info) Description 09/14/2024 Telephone Orthopaedics [facility] [address] [place] [address] Steffanie Alfaro PA-C [address] [place] [address] FYI Allergies Active Allergy Reactions Criticality Noted Date Comments Cephalexin Other (Please comment) 08/03/2024 Taking it effect his warfarin documented as of this encounter (statuses as of 09/15/2024) Medications Centrum Silver 50+Men Oral Tablet Take [...] group D, by GOLD 2017 classification ([facility]) Take 2 Tablets by mouth [...] group D, by GOLD 2017 classification ([facility]) Take two tablets by mouth on first day, then 1 tablet daily until gone 6 Tablet 09/10/20 24 Active documented as of this encounter (statuses as of 09/15/2024) Active Problems Problem Noted Date Diagnosed Date [...] goal LDL below 70 07/17/2023 Atherosclerosis of tangirnaq co 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 Jardiance) Remote Patient Monitoring Vendor: [facility] Device(s): Connected Scale Continuous Monitoring [...] as of this encounter (statuses as of 09/15/2024) Resolved Problems Problem Noted Date Diagnosed Date [...] Classes - JULIA Class D - Inhaled Blcgkrkkysxeve-ASUN-NYBB Combination Inhaler (Trellegy) Remote Patient Monitoring Vendor: [facility] Device(s): Continuous Monitoring Device Traditional Scale Self-Management plan High frequency nebulizer treatments every 4-6 hours around the clock Exacerbation plan Chest Xray Additional Comments: On continuous o2 2-3lpm Bipap at night Body mass index (BMI) of 40. 0 to 44.9 in adult 07/08/2023 07/09/2024 Overview: Per Obesity protocol Atherosclerosis of tangirnaq co ronary artery without angina pectoris 07/05/2023 08/29/2023 Dyspnea 07/04/2023 08/13/2023 Occupational exposure in workplace 07/04/2023 02/14/2024 Chronic congestive heart failure 06/08/2023 07/05/2023 COPD, severe 06/08/2023 07/11/2023 Overview: Per COPD GOLD Classification Chronic hypoxemic respiratory failure 06/08/2023 07/04/2023 Chronic respiratory failure with hypoxia, on home oxygen therapy 06/08/2023 08/29/2023 Diabetes mellitus without complication 06/08/2023 08/29/2023 documented as of this encounter (statuses as of 09/15/2024) Immunizations Name Administration Dates Next Due Pneumococcal [...] encounter Miscellaneous Notes * Telephone Encounter - Beba Severino OSA - 09/15/2024 11:19 AM EST Images from the original note were not included. Patient is scheduled. Juan Mays PA-C Craw, Abigail, OSA; [facility] [place] Pool Nurse Pool/Class2 minutes ago (11:16 AM) Can schedule with me next available. My next opening I believe is on October 08. Ya Navarro OSA Robinson, Sarah, MED ASSIST; Lawrence Kingston PA-C; Maria T Mays PA-C2 hours ago (8:48 AM) AC Is there anywhere we would be able to squeeze this pt in for an Iovera consult? Looks like appts are booked out a bit. Steffanie Alfaro PA-C Robinson, Sarah, MED ASSIST; [facility] Pool Nurse Pool/Class2 hours ago (8:34 AM) Ok to schedule with Luis Enrique/Garcia for IOVERA consult Alida Page MED ASSIST Soltis, Samantha, PA-C19 hours ago (3:56 PM) SR Called and spoke with patient, currently in [facility] for COPD. Unrelated states his knee's are bothering him again and has an increase in pain. Advised patient that this could be coming from his arthritis as well as his swelling. States the gel injections did not help his pain and PT made it worse. Advised him we could place a referral for possible IOVERA consult if you are agreeable to this. * Telephone Encounter - Jac Masterson OSA - 09/14/2024 2:45 PM EST Pt called asking to speak with Steffanie Alfaro. He is currently admitted at [facility]. Pt didn't give much info about why he needed a call back other than saying it's important documented in this encounter Plan of Treatment Upcoming Encounters Date Type Department Care Team (Late st Contact Info) Description 09/28/2024 7:05 AM EST Laboratory Lab Mobile Phlebotomy [facility] [address] [facility] [place] [address] Mvmg, Gml Mobile Home Draw [address] [facility] [place] [address] 09/29/2024 6:00 AM EST Anticoagulation Centralized Clinical Pharmacy Services, Oscar Peace [address] [place] [address] [place] [address] Ccps, [address] [place] [address] 10/01/2024 4:00 PM EST [facility] 132 [facility] [place] [address] Michelle Kim RN 132 [facility] [place] [address] 10/06/2024 2:40 PM EST Office Visit [facility] [address] [place] [address] Charley Crane MD [address] [place] [address] 10/08/2024 1:30 PM EST Office Visit Orthopaedics, [facility] [address] [place] [address] Juan Mays PA-C [address] [place] [address] Health Maintenance Due Date Last Done Comments Alpha-1 Antitrypsin 1974 CKD PHOS USE SMARTSET 59162 1974 DTap/Tdap Vaccines (1 - Tdap) 1975 [...] 06/15/2025 06/15/2024, 06/21/2023 CKD HGB USE SMARTSET 70783 09/07/202509/07, 09/07/2024, 06/15/2024, Additional history exists O2 [...] as of this encounter Care Teams Certified Medical Transcriptionist Relationship Specialty Start Date End Date Charley Crane MD [address] [place] [address] PCP - General Internal Medicine 06/04/23 documented as of this encounter
--- OUTSIDE RECORDS SUMMARY | 2024-10-21 20:58 | External Medical Summary | Summary of Care ---
Author Name Unknown Organization [facility] Address [address] [place] [address] Phone [phone] Care Team Providers Care Title Lawyer Name Role Phone Charley Crane MD Primary Care Provider [phone] Reason for Visit * Reason Onset Date Comments Flavorer Documentation 09/28/2024 Encounter Details Date Type Department Care Team (Late st Contact Info) Description 09/28/2024 2:00 PM EST Scheduled Telephone [facility], [facility] [address] [place], [place] [id number] [facility] [address] [place], [place] [phone] Allergies Active Allergy Reactions Criticality Noted Date [...] group D, by GOLD 2017 classification ([facility]) Take 2 Tablets by [...] classification 11/04 Overview: Per COPD GOLD Classification 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 0 2023 Longstanding persistent atrial fibrillation 06/29 Assessment & Plan (07/01/2024 9:45 AM EDT): Rate controlled Continue coumadin Hypertension goal BP (blood pressure) < 130/80 0 07/17/2023 Dyslipidemia, goal LDL below 70 07/17/2023 Atherosclerosis of koi co ronary artery without angina pectoris 07/05/2023 [...] Classes - JULIA Class D - Inhaled Bgpwhvqronjmzt-VWKL-NQAB Combination Inhaler (Sandro) Remote Patient Monitoring Vendor: [facility] Device(s): Continuous Monitoring Device Traditional Scale Self-Management plan High frequency nebulizer treatments every 4-6 hours around the clock Exacerbation plan Chest Xray Additional Comments: On continuous o2 2-3lpm Bipap at night Body mass index (BMI) of 40. 0 to 44.9 in adult 07/08/2023 07/09/2024 Overview: Per Obesity protocol Atherosclerosis of koi co ronary artery without angina pectoris 07/05/2023 [...] Telephone Encounter - Nataliya Erazo LCSW - 09/28/2024 2:17 PM EST Worker was consulted by Michelle Mckenna is looking for placement vs Alternative housing vs additional aide services Chart was reviewed. Worker reached out to Bala at [phone]. Pt answered the phone and there was someone in the background that was unidentified. Worker again discussed services. In review, a referral was placed (07/16/24) to [facility] [phone]. Pt is followed by Jamila at the agency > ex [phone]. Bala stated he needs to call her for services. Worker discussed at length Assisted Living Facility. Bala is aware of the out of pocket expense. He shared that at this time he is not interested [facility]. Bala informed worker he has a Home Health aide coming Saturday and and that is working out fine. Worker made sure he was aware that Home Health is limited in how long they are coming. Bala stated he was aware their services are limited. Bala informed worker he has been working on his options now that he is home from the hospital and does not need assistance at this time. Patient offered no other complaints or concerns at this time. Fall precautions were stressed. No falls were recently reported. Emotional Support was offered. Patient was encouraged to contact the [facility] with any questions or concerns . Phone number for [facility] was provided . Worker provided contact number [phone] for any follow up needed. Worker placed a call to the [facility]. Message was left for Jamila, she is not working today. Nataliya Erazo LCSW [facility] Chalk Tester [facility] [phone] documented in this encounter Plan of Treatment Upcoming Encounters Date Type Department Care Team (Late st Contact Info) Description 09/29/2024 6:00 AM EST Anticoagulation Centralized Clinical Pharmacy Services, Oscar Peace [address] [place] [address] [place] [address] Ccps, [address] [place] [address] 10/01/2024 4:00 PM EST Home [facility], [facility] [address] [place] [address] Michelle Kim, RN [address] [place] [address] 10/06/2024 2:40 PM EST [facility] [address] [place] [phone] Charley Crane MD [facility] [place] [address] 10/08/2024 1:30 PM EST Office Visit Orthopaedics, [address] [place] [address] Juan Mays PA-C [address] [place] [address] 10/12/2024 12:00 PM EST Home Visit [facility] [address] [place] [address] [facility] [employer] [address] [place] [address] 10/26/2024 5:30 PM EST [facility] Visit [facility] 132 [facility] [place] [address] Michelle Kim, RN [address] [facility] [place] [address] Health Maintenance Due Date Last Done Comments Alpha-1 Antitrypsin 1974 CKD PHOS USE SMARTSET 59668 1974 DTap/Tdap Vaccines (1 - Tdap) 1975 [...] 06/15/2025 06/15/2024, 06/21/2023 CKD HGB USE SMARTSET 44360 09/07/202509/07, 09/07/2024, 06/15/2024, Additional history exists O2 [...] filedocumented as of this encounter Care Teams Title Lawyer Relationship Specialty Start Date End Date Charley Crane MD [address] [place] [facility] [place] [address] PCP - General Internal Medicine 06/04/23 documented as of this encounter
--- OUTSIDE RECORDS SUMMARY | 2024-10-21 20:58 | External Medical Summary ---
Author Name Unknown Address Unknown Organization [facility] [address] [place] [address] Laboratory Report Ordering Provider Test Date Status NAVARROSANCHORADU 09/28/2024 09:34:00 Final Standing order for pt/inr. < br/>Please draw pt/inr every 1 to 4 weeks as requested
Results to [facility]

Warfarin Therapy
INR: 2.0-3.0 conventional anticoagulation
INR: 2.5-3.5 high intensity anticoagulation Observation Date Value Abnormality Reference (Units ) Status PT 09/28/2024 09:34:00 18.0 Above high normal 11 .6-15.2 (seconds) Final INR 09/28/2024 09:34:00 1.5 Above high normal 0. 8-1.2 Final Performing Location [facility] [address] [place] [address]
--- OUTSIDE RECORDS SUMMARY | 2024-10-21 20:58 | External Medical Summary | Summary of Care ---
Author Name Unknown Organization [facility] Address [address] [place] [address] Phone [phone] Care Team Providers Care Auctioneer Art Name Role Phone Charley Crane MD Primary Care Provider [phone] Reason for Visit * Reason Comments eRx-Medication Refill Encounter Details Date Type Department Care Team (Late st Contact Info) Description 09/20/2024 Refill [facility] [address] [place] [phone] Charley Crane MD [address] [place], [place] [phone] Allergies Active Allergy Reactions Criticality Noted Date Comments Cephalexin Other (Please comment) 08/03/2024 Taking it effect his warfarin documented as of this encounter (statuses as of 09/21/2024) Medications Centrum Silver 50+Men Oral Tablet Take [...] of Breath or Wheezing. 54 g 1 024 Active Atorvastatin Calcium 80 [...] BY MOUTH EVERY MORNING 90 Tablet 1 024 Active Trelegy Ellipta 100-62.5-25 MCG/ACT Aerosol Powder [...] knees and shoulders. 100 g 1 024 Active Warfarin Sodium 10 MG Oral Tablet [...] ations:COPD, group D, by GOLD 2017 classification ([facility]) Take 2 Tablets by mouth in the morning. For 5 days. Rescue kit. Use only as instructed. 10 Tablet Active Spironolactone 25 MG Oral Tablet (Aldactone) Take 1 Tablet by mouth in the morning. 90 Tablet 3 Active Jardiance 10 MG Oral Tablet (Empagliflozin) TAKE 1 TABLET BY MOUTH EVERY MORNING 90 Tablet 1 Active Fluticasone Propionate 50 MCG/ACT Nasal Suspension (Flonase) Administer 2 Sprays into each nostril in the morning. 16 g 1 Active Azithromycin 250 MG Oral Tablet (Zithromax Z-Juan)Indication s:COPD, group D, by GOLD 2017 classification ([facility]) Take two tablets by mouth on first day, then 1 tablet daily until gone 6 Tablet Active Ipratropium-Albu terol 0.5-2.5 (3) MG/3ML Inhalation Solution (Duoneb) inhale contents of 1 vial in nebulizer every 6 hours if needed for shortness of breath 360 mL 3 Active Ipratropium-Albu terol 0.5-2.5 (3) MG/3ML Inhalation Solution (Duoneb) INHALE THE CONTENTS OF 1 VIAL IN NEBULIZER EVERY 6 HOURS NEEDED FOR SHORTNESS OF BREATH 360 mL 3 024 2023 Discontinued documented as of this encounter (statuses as of 09/21/2024) Active Problems Problem Noted Date Diagnosed Date [...] goal LDL below 70 07/17/2023 Atherosclerosis of [place] co ronary artery without angina pectoris [...] as of this encounter (statuses as of 09/21/2024) Resolved Problems Problem Noted Date Diagnosed Date [...] Classes - JULIA Class D - Inhaled Vnswfszobqdbrz-CCGC-DUHC Combination Inhaler (Trellegy) Remote Patient Monitoring Vendor: [facility] Device(s): Continuous Monitoring Device Traditional Scale Self-Management plan High frequency nebulizer treatments every 4-6 hours around the clock Exacerbation plan Chest Xray Additional Comments: On continuous o2 2-3lpm Bipap at night Body mass index (BMI) of 40. 0 to 44.9 in adult 07/08/2023 07/09/2024 Overview: Per Obesity protocol Atherosclerosis of [place] co ronary artery without angina pectoris [...] as of this encounter (statuses as of 09/21/2024) Immunizations Name Administration Dates Next Due Pneumococcal [...] encounter Miscellaneous Notes * Telephone Encounter - Cata Hubbard RPh - 09/21/2024 3:59 PM ESTSigned Prescriptions: Disp Refills Ipratropium-Albuterol 0.5-2.5 (3) MG/3ML I*360 mL 3 Sig: inhale contents of 1 vial in nebulizer every 6 hours if needed for shortness of breathAuthorizing Provider:Gloria CRANE User: CATA HUBBARD documented in this encounter Plan of Treatment Upcoming Encounters Date Type Department Care Team (Late st Contact Info) Description 09/28/2024 7:05 AM EST Laboratory Lab Mobile [facility]lebotomy [facility] [facility] [address] [facility], Gml Mobile Home Draw [address] [place] [address] 09/29/2024 6:00 AM EST Anticoagulation Centralized Clinical Pharmacy Services, [address] [place] [address] [place] [address] 10/01/2024 4:00 PM EST [facility] [address] [place] [address] Michelle Kim, RN [address] [place] [address] 10/06/2024 2:40 PM EST Office Visit [facility] [address] [place] [phone] Charley Crane MD [address] [place] [address] 10/08/2024 1:30 PM EST Office Visit Orthopaedics, [facility] [address] [place] [address] Juan Mays PA-C [address] [place] [address] Health Maintenance Due Date Last Done Comments Alpha-1 Antitrypsin 1973 CKD PHOS USE SMARTSET 69910 1974 DTap/Tdap Vaccines (1 - Tdap) 1975 [...] 06/15/2025 06/15/2024, 06/21/2023 CKD HGB USE SMARTSET 11930 09/07/202509/07, 09/07/2024, 06/15/2024, Additional history exists O2 [...] filedocumented as of this encounter Care Teams Auctioneer Art Relationship Specialty Start Date End Date Charley Crane MD [address] [place] [address] PCP - General Internal Medicine 06/04/23 documented as of this encounter
--- OUTSIDE RECORDS SUMMARY | 2024-10-21 20:58 | External Medical Summary | Summary of Care ---
Author Name Unknown Organization [facility] Address [address] [place] [address] Phone [phone] Care Team Providers Care Food And Beverage Order Clerk Name Role Phone Charley Crane MD Primary Care Provider [phone] Encounter Details Date Type Department Care Team (Late st Contact Info) Description 09/15/2024 Population Health External Data Unspecified Department Allergies [...] 2017 classification ([facility]) Take 2 Tablets by mouth in [...] 2017 classification ([facility]) Take two tablets by mouth on first [...] goal LDL below 70 07/17/2023 Atherosclerosis of tribal co 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 Jardiance) Remote Patient Monitoring Vendor: [facility] Device(s): Connected Scale Continuous Monitoring Device Self [...] Classes - JULIA Class D - Inhaled Qtcttmtxnbqwoz-PSBX-QMHY Combination Inhaler (Jhonyegy) Remote Patient Monitoring Vendor: [facility] Device(s): Continuous Monitoring Device Traditional Scale Self-Management plan High frequency nebulizer treatments every 4-6 hours around the clock Exacerbation plan Chest Xray Additional Comments: On continuous o2 2-3lpm Bipap at night Body mass index (BMI) of 40. 0 to 44.9 in adult 07/08/2023 07/09/2024 Overview: Per Obesity protocol Atherosclerosis of tribal co ronary artery without angina pectoris 07/05/2023 [...] No 07/17/2024 Does the household have a [facility] source of income? (Household [...] AM EST Laboratory Lab Mobile Phlebotomy [facility] [address] [place] [address] Mvmg, Gml Mobile Home Draw [address] [place] [address] 09/29/2024 6:00 AM EST Anticoagulation Centralized Clinical Pharmacy Services, Oscar Peace [address] [place] [address] [place] [address] Ccps, [address] [place] [address] 10/01/2024 4:00 PM EST [facility] [place] [address] Michelle Kim, RN [address] [place] [address] 10/06/2024 2:40 PM EST [facility] [address] [place] [address] Charley Crane MD [address] [place] [address] Health Maintenance Due Date Last Done Comments Alpha-1 Antitrypsin 1974 CKD PHOS USE SMARTSET 86794 1974 DTap/Tdap Vaccines (1 - Tdap) 1975 [...] 06/15/2025 06/15/2024, 06/21/2023 CKD HGB USE SMARTSET 43999 09/07/202509/07, 09/07/2024, 06/15/2024, Additional history exists O2 [...] filedocumented as of this encounter Care Teams Food And Beverage Order Clerk Relationship Specialty Start Date End Date Charley Crane MD [address] [place] [address] PCP - General Internal Medicine 06/04/23 documented as of this encounter
--- OUTSIDE RECORDS SUMMARY | 2024-10-21 20:58 | External Medical Summary | Summary of Care ---
Author Name Unknown Organization [facility] [address] [address] Phone [phone] Care Team Providers Care Insurance Billing Specialist Name Role Phone Charley Crane MD Primary Care Provider [phone] Reason for Visit * Reason Comments Dosage Adjustment Via Phone (anticoag Cl inic) Encounter Details Date Type Department Care Team (Late st Contact Info) Description 09/28/2024 6:00 PM EST Anticoagulation [facility], [facility] [address] [place] [address] [place] [address] [place] [address] human resources operations coordinator current use of anticoagulant therapy*; Longstanding persistent [...] by GOLD 2017 classification ([facility]) Take 2 Tablets by mouth in the morning. For 5 days. Rescue kit. Use only as instructed. 10 Tablet 09/08/20 24 Active Spironolactone 25 MG Oral Tablet (Aldactone) Take 1 Tablet by mouth in the morning. 90 Tablet 3 09/10/20 Active Additional Information Patient taking differently: 12.5 mgOral Daily(AM), Reported on 09/27/2024 Jardiance 10 MG Oral Tablet (Empagliflozin) TAKE 1 TABLET BY MOUTH EVERY MORNING 90 Tablet 1 09/10/20 Active Fluticasone Propionate 50 MCG/ACT Nasal Suspension (Flonase) Administer 2 Sprays into each nostril in the morning. 16 g 1 09/10/20 Active Azithromycin 250 MG Oral Tablet (Zithromax Z-Juan)Indications :COPD, group D, by GOLD 2017 classification ([facility]) Take two tablets by mouth on first day, then 1 tablet daily until gone 6 Tablet 09/10/20 Active Ipratropium-Albut blaire 0.5-2.5 (3) MG/3ML Inhalation Solution (Duoneb) inhale contents of 1 vial in nebulizer every 6 hours if needed for shortness of breath 360 mL 3 09/21/20 Active Potassium Chloride ER 20 MEQ Oral Tablet Extended Release Take 1 Tablet by mouth in the morning. Active Diclofenac Sodium 1 % External Gel (Voltaren) Apply 1 Application topically to affected area in the morning and 1 Application before bedtime. Apply to knees and shoulders. 100 g 1 09/28/20 Active documented as of this encounter (statuses [...] goal LDL below 70 07/17/2023 Atherosclerosis of cachil dehe co ronary artery without angina pectoris 07/05/2023 [...] Classes - JULIA Class D - Inhaled Tvyxeqgzgswzjh-CYSX-FSSG Combination Inhaler (Trellegy) Remote Patient Monitoring Vendor: Current Health Device(s): Continuous Monitoring Device Traditional Scale Self-Management plan High frequency nebulizer treatments every 4-6 hours around the clock Exacerbation plan Chest Xray Additional Comments: On continuous o2 2-3lpm Bipap at night Body mass index (BMI) of 40. 0 to 44.9 in adult 07/08/2023 07/09/2024 Overview: Per Obesity protocol Atherosclerosis of cachil dehe co ronary artery without angina pectoris 07/05/2023 [...] as of this encounter Progress Notes * Delilah Montelongo, [facility] - 09/28/2024 3:53 PM EST Contacts Contact Date/Time Type Contact Phone/Fax 09/28/2024 03:40 PM EST Phone (Outgoing) Cliff [place] Bala E (Self) [phone] (M) Spoke to Patient Subjective Patient Findings Negatives: Signs/symptoms of bleeding, Change in health, Change in activity, Upcoming invasive procedure, Missed doses, Extra doses, Change in medications, Change in diet/appetite, Bruising Advised patient to contact Anticoagulation Clinic if any unusual bruising or bleeding, recent illness, changes in medication, or questions/concerns. PT/INR results, Coumadin dose instructions, and next PT/INR date communicated as noted by Pharmacist: Yes DELILAH MONTELONGO CPhT 09/28/2024, 3:53 PM * Isabel Li RPh - 09/28/2024 3:36 PM EST Images from the original note were not included. Coumadin Clinic (region specific) Objective Current Warfarin Dose As of 09/28/2024 Warfarin maintenance plan: 10 mg (10 mg x 1) every Mon, Wed, Fri; 15 mg (10 mg x 1.5) all other days INR Result As of 09/28/2024 INR goal: 2.0-3.0 INR used for dosin.5 (09/28/2024) Assessment & Plan Warfarin Plan As of 09/28/2024 Full warfarin instructions: 09/28: 20 mg; Otherwise 10 mg every Mon, Wed, Fri; 15 mg all other days Next INR check: 10/12/2024 Repeat PT/INR in 2 week(s) Weekly dose: not changed Additional Dosing Information: Description [facility] Pill packs from [facility] - Warfarin NOT included Tech to contact patient with dose instructions as noted. Isabel Li RPh 09/28/2024, 3:36 PM documented in this encounter Plan of Treatment Upcoming Encounters Date Type Department Care Team (Late st Contact Info) Description 10/01/2024 4:00 PM EST Home Visit [facility], [address] [place] [id number] Michelle Kim RN [address] [place] [phone] 10/06/2024 2:40 PM EST Office Visit [facility] [address] [facility] [phone] Charley Crane MD [address] [phone] 10/08/2024 1:30 PM EST [facility] [address] [address] [place] [address] Juan Mays PA-C [address] [place] [address] 10/12/2024 12:00 PM EST Home Visit [facility] [address] [place] [address] Chacha Kennedy [facility] Health Assistant Plant Control Operator [address] [place] [address] 10/13/2024 6:00 AM EST Anticoagulation [facility], [address] [place] [address] [facility] [place] [address] 10/26/2024 5:30 PM EST Home Visit [facility] [address] [place] [address] Michelle Kim, RN [address] [place] [address] Health Maintenance Due Date Last Done Comments Alpha-1 Antitrypsin 1974 CKD PHOS USE SMARTSET 36931 1974 DTap/Tdap Vaccines (1 - Tdap) 1975 [...] 06/15/2025 06/15/2024, 06/21/2023 CKD HGB USE SMARTSET 35701 09/07/202509/07, 09/07/2024, 06/15/2024, Additional history exists O2 [...] Advanced care planning/counseling discussion Other specified counseling nursing home current use of anticoagulant therapy- Primary Longstanding persistent atrial fibrillation (HCC) History of deep venous thrombosis (DVT) of distal vein of left lower extremity documented in this encounter Care Teams Insurance Billing Specialist Relationship Specialty Start Date End Date Charley Crane MD [address] [place] [address] PCP - General Internal Medicine 06/04/23 documented as of this encounter
[2024-10-21] MEDS ORDERED: CEFEPIME 2,000 MG in SYRINGE 7.5 ML IV STA (21:32)
--- NOTE | 2024-10-21 21:42 | Emergency Department Note ---
Impression & Plan Altered mental status, Respiratory acidosis, Cellulitis, Anemia, Elevated lactic acid level ED Provider Note NAME: MEÑO CORONADO AGE: 69 SEX: M : 1955 ARRIVES VIA: Ambulance INFORMANT: [Patient][EMS] ED PROVIDER(S): [Romel Iverson MD] CHIEF COMPLAINT: Altered mental state HISTORY OF PRESENT ILLNESS: The patient is a 69-year-old male with COPD, A-fib and CHF. He presents today by ambulance after being found unresponsive and altered. He was found about 2 hours ago by family. He was last seen at around 1300 and he was well at that time. The last known well was 8-1/2 hours ago. The patient complains of shakiness. His mental state apparently has improved since being brought to the hospital. He is now more interactive. The patient has allover body pain however, this is baseline. He denies increasing shortness of breath, headache, vomiting or diarrhea. He states his legs are always swollen but, he was told they are now red and that is not typically the case. BSG at his house was recorded at over 400 by EMS, here the nursing staff reports a BSG in the 200s. PMHx/PSHx/Social Hx: See Below PHYSICAL EXAM: GENERAL: Patient is in no acute distress. HEENT: No acute trauma, normocephalic atraumatic, mucous membranes moist, no nasal congestion. NECK: No stridor, no adenopathy, no meningismus, trachea is midline. LUNGS: Clear to auscultation bilaterally when listening anterior, no wheeze, no rhonchi, breath sounds equal. No respiratory distress. HEART: No obvious murmur, irregular rhythm, normal rate. Heart tones distant. ABDOMEN: Soft, nontender, no peritonitis. Markedly obese. EXTREMITIES: No cyanosis, full range of motion of all the joints without pain or difficulty. Patient has significant bilateral pedal edema with erythema extending up the inner thighs bilaterally. Increased warmth is present. NEUROLOGIC: Awake, seems somewhat sleepy and may be slightly confused, does move all extremities. SKIN: No jaundice, no diaphoresis. DIFFERENTIAL DIAGNOSIS: Sepsis or bacteremia, cellulitis, CO2 retention, stroke, intracranial bleeding, among others. EMERGENCY DEPARTMENT PROCEDURES: MEDICAL DECISION MAKING: There is no leukocytosis. The patient is anemic however, he carries a history of anemia and his value today is within his typical range. There was a normal platelet count. VBG did show a respiratory acidosis, the patient has had issues with this type of problem before. CO2 was elevated on the renal panel. No acute renal failure. Glucose was a bit high at 204, not in need of emergent correction. Lactic acid level was elevated consistent with potential infection. No concerning liver enzyme elevation. ECG showed atrial fibrillation, no acute ischemic change. Cardiac enzyme testing x 1 was slightly elevated, this elevation could be secondary to cardiac injury or mismatch from his respiratory issues. Urinalysis showed glucose, no infection. INR was elevated consistent with his warfarin use. Chest film shows chronic change and potential CHF versus changes from his body habitus. No focal pneumonia. Brain CT does not show any acute bleed or mass effect. Patient appeared to have a bilateral lower extremity cellulitis based on exam. He seems somewhat confused and sleepy. Patient was aggressively managed given his presentation. The patient was placed on BiPAP to help with his CO2 retention. He received a 500 cc saline bolus. No additional saline was given has he has a history of heart failure and I was very concerned for potential fluid overload. He was given IV cefepime as antibiotic coverage. He was given IV Tylenol. Patient seems to be doing fairly well. His vital signs seem stable. He remains awake and able to answer questions, he seems less somnolent. The patient has a bilateral lower extremity cellulitis. He has a respiratory acidosis. These 2 findings have caused his presentation to our ER this evening. Hospitalization is warranted. I spoke with the patient and catalytic case operator. The on-call hospitalist was consulted. Prior/Outside records/notes reviewed: Today's EMS notes describing his presentation and transport to this hospital. ECG per my interpretation: Indication was possible stroke. The ECG shows atrial fibrillation with a rate of 67. There is significant baseline artifact. There is no acute ST elevation, no PVCs. The QTc is 395. Continuous Cardiac Monitoring per my interpretation: An order was placed for continuous cardiac monitoring. The monitor shows a rate of 69 with atrial fibrillation. Imaging/x-ray results per my interpretation: Chest x-ray shows parenchymal congestion which may be consistent with chronic change versus some CHF. Cardiomegaly was seen. The film looks similar to previous films. Chronic Medical/Social conditions affecting care: Chronic warfarin use, obesity. Chronic O2 use. Care/Management discussed with: Case management, the on-call hospitalist. Level of care consideration(s): After review of the information above and other included data: --I believe the patient requires escalation of care to admission Critical Care Note: I have personally spent 54 minutes of critical care time in the direct management of this patient. This includes bedside care, interpretation of diagnostic studies, and testing, discussion with consultants, patient, and family members, and other required patient management activities. This 54 minutes is in excess of all separately billable procedures. DISPOSITION: Admission Past Med/Surg History Problem List (Updated 10/21/24 @ 23:07 by Romel Iverson MD) Elevated lactic acid level (Acute) Anemia (Acute) Cellulitis (Acute) Respiratory acidosis (Acute) Altered mental status (Acute) Acute exacerbation of chronic obstructive pulmonary disease (COPD) Metabolic alkalosis with respiratory acidosis Morbid obesity Acute on chronic respiratory failure with hypoxia and hypercapnia Bradycardia Hypotension Hyperkalemia Bilateral cellulitis of lower leg Hypoxia (Acute) Abnormal CT scan, chest Obesity hypoventilation syndrome Acute on chronic heart failure with preserved ejection fraction Congestive heart failure (Acute) Acute respiratory failure with hypoxia and hypercarbia (Acute) Acute on chronic congestive heart failure (Acute) O2 dependent (Acute) Anticoagulant long-term use Chronic a-fib DM II (diabetes mellitus, type II), controlled Chronic respiratory failure with hypoxia COPD (chronic obstructive pulmonary disease) (Acute) Medical History Pulmonary hypertension Hx of smoking Chronic congestive heart failure Hx of deep venous thrombosis Surgical History No pertinent past surgical history Family History Other Diabetes Social History Smoking Status: Never smoker Tobacco Type: Cigarettes Second Hand Exposure: Yes; Do You Dip or Chew Tobacco: No; Hx Alcohol Use: No Hx Substance Use: No Preferred Language: [place]i Communication Ability: Effective County Auditor Required: No Beliefs That Will Affect Care: None Current Living Situation: Alone Current Living Situation Comment: Lives with Sandeep (son) and Maira Coronado (dtr in law) Feels Safe at Home: Yes Assistive Devices: BiPap, Nebulizer, Oxygen - Continuous and Raised Toilet Seat Allergies Allergies Allergy/AdvReac Type Severity Reaction Status Date / Time No Known Allergies Allergy Verified 09/13/24 15:45 Home Meds Home Medications Medication Instructions Recorded Confirmed empagliflozin 10 mg tablet 10 mg PO QAM 06/10/23 09/13/24 fluticasone fur. 100 mcg-umeclid 1 inh inhalation DAILY 06/10/23 09/13/24 62.5 mcg-vilant 25 mcg inhalat.powder (Trelegy Ellipta) [id number]-wjyin 300 mcg-K 60 1 tab PO DAILY 06/10/23 09/13/24 mcg-lycop 600 mcg-lutein 300 mcg tablet (Centrum Silver Men) pantoprazole 40 mg tablet,delayed 40 mg PO DAILY 06/10/23 09/13/24 release albuterol sulfate 90 mcg/actuation 2 puff inhalation Q6H PRN 05/12/24 09/13/24 aerosol inhaler Shortness Of Breath Or Wheezing atorvastatin 80 mg tablet 80 mg PO QAM 05/12/24 09/13/24 fluticasone propionate 50 2 spray intranasal DAILY 05/12/24 09/13/24 mcg/actuation nasal spray,suspension montelukast 10 mg tablet 10 mg PO QAM 07/20/24 09/13/24 Previous Rx's Medication Instructions Recorded ipratropium 0.5 mg-albuterol 3 mg 3 ml inhalation Q6H Shortness Of 05/19/24 (2.5 mg base)/3 mL nebulization Breath #0 mL soln sodium chloride 7 % for 4 ml NEB BIDR #120 mL 05/19/24 nebulization spironolactone 25 mg tablet 12.5 mg (1/2 x 25 mg) PO DAILY #30 05/19/24 tabs diclofenac sodium 1 % topical gel 4 g EXT BID #100 grams 07/29/24 (Voltaren Arthritis Pain) enalapril maleate 5 mg tablet 2.5 mg (1/2 x 5 mg) PO DAILY #30 07/29/24 tabs guaifenesin 600 mg tablet, 1,200 mg (2 x 600 mg) PO Q12 #60 07/29/24 extended release 12 hr (Mucinex) tabs theophylline 400 mg 100 mg (1/4 x 400 mg) PO BID #60 07/29/24 tablet,extended release 24 hr tabs potassium chloride 20 mEq 20 meq PO QAM #30 tabs 09/26/24 tablet,extended release(part/cryst) torsemide 20 mg tablet 20 mg PO QAM #30 tabs 09/26/24 warfarin 10 mg tablet 10 mg PO DAILY #30 tabs 09/26/24 Results & Data (ED) Vital Signs Vital Signs - 24 hr 10/21/24 21:01 10/21/24 21:01 10/21/24 21:28 Temperature 36.7 C Temperature Source Oral Pulse Rate 74 118 H Pulse Rate [Right Finger] 70 Pulse Rhythm Regular Pulse Rhythm [Right Finger] Regular Pulse Strength Normal Pulse Strength [Right Finger] Normal Respiratory Rate 18 17 Respiratory Effort / Characteristics Non-Labored Non-Labored Respiratory Depth Normal Normal Respiratory Pattern Regular Regular Blood Pressure 123/57 L Blood Pressure Mean 79 Blood Pressure Position Lying Pulse Oximetry 92 94 Oxygen Delivery Method Nasal Cannula Nasal Cannula Oxygen Flow Rate 2 Fraction of Inspired Oxygen Sepsis Recent Fever Within 48 Hours No Sepsis New/Unexplained Change in Mental Status N/A Sepsis Action Taken by Nursing No Action Required 10/21/24 22:10 10/21/24 22:54 10/21/24 22:54 Temperature Temperature Source Pulse Rate 57 L 54 L Pulse Rate [Right Finger] 54 L Pulse Rhythm Regular Pulse Rhythm [Right Finger] Regular Pulse Strength Pulse Strength [Right Finger] Normal Respiratory Rate 20 Respiratory Effort / Characteristics Spontaneous Respiratory Depth Normal Respiratory Pattern Regular Blood Pressure Blood Pressure Mean Blood Pressure Position Pulse Oximetry 99 93 94 Oxygen Delivery Method CPAP CPAP Oxygen Flow Rate Fraction of Inspired Oxygen 28 Sepsis Recent Fever Within 48 Hours Sepsis New/Unexplained Change in Mental Status Sepsis Action Taken by Correction Medications Current Medication List: was personally reviewed by me Laboratory Data Attestation: I reviewed the patient's lab results. 10/21/24 21:40 10/21/24 21:40 Lab Results 10/21/24 10/21/24 10/21/24 Range/Units 20:54 21:20 21:40 WBC 8.30 (4.8-10.8) K/ul RBC 3.58 L (4.70-6.10) M/uL Hgb 9.2 L (14.0-18.0) g/dl Hct 32.2 L (42.0-52.0) % MCV 89.9 (80.0-100.0) fL MCH 25.7 (25.0-34.0) pg MCHC 28.6 L (32.0-36.0) g/dL RDW Std Deviation 57.0 H (36.4-46.3) fL RDW Coeff of Dhaval 17.2 H (11.5-14.5) % Plt Count 341 (130-400) K/uL MPV 9.0 L (9.4-12.4) fL Immature Gran % (Auto) 0.7 % Neut % (Auto) 87.8 % Lymph % (Auto) 5.2 % [place] % (Auto) 6.0 % Eos % (Auto) 0.1 % Baso % (Auto) 0.2 % Neut # (Auto) 7.28 H (1.40-6.50) K/uL Lymph # (Auto) 0.43 L (1.20-3.40) K/uL [place] # (Auto) 0.50 (0.11-0.59) K/uL Eos # (Auto) 0.01 (0.00-0.50) K/uL Baso # (Auto) 0.02 (0.00-0.20) K/uL Immature Gran # (Auto) 0.06 (0.01-0.20) K/uL PT 29.1 H (9.0-12.0) Seconds INR 3.0 H (0.9-1.1) APTT 41 H (21-31) Seconds PTT Ratio 1.5 VBG pH 7.24 L (7.36-7.41) VBG pCO2 101 H (38-50) mmHg VBG pO2 33 mmHg VBG HCO3 43 mmol/L VBG O2 Saturation < 60.0 % VBG Base Excess 11.5 mEq/L Sodium 140 (136-145) mmol/L Potassium 5.1 (3.5-5.1) mmol/L Chloride 93 L (98-107) mmol/L Carbon Dioxide 41 H* (21-32) mmol/L Anion Gap 6 (3-11) BUN 47 H (6-23) mg/dl Creatinine 1.05 (0.6-1.4) mg/dl Est Cr Clr Drug Dosing 98.1 ml/min eGFR 77.32 BUN/Creatinine Ratio 44.8 H (10-20) Glucose 204 H (70-99(Fasting)) mg/dl POC Glucose 265 H (70-99) mg/dl Lactate 2.2 H* (0.4-2.0) mmol/L Calcium 9.1 (8.6-10.3) mg/dl Magnesium 2.5 H (1.7-2.4) mg/dl Total Bilirubin 0.4 (0.2-1.0) mg/dl Direct Bilirubin TNP AST (13-39) U/L ALT (7-52) U/L Alkaline Phosphatase (34-104) U/L Troponin I High Sens (0-20) pg/ml Total Protein (6.0-8.3) gm/dl Albumin (3.4-5.0) gm/dl Urine Color Yellow Urine Appearance Clear (Clear) Urine pH 5.0 (4.5-7.5) Ur Specific [place] 1.021 (1.000-1.030) Urine Protein Negative (Negative) Urine Glucose (UA) 3+ H (Negative) Urine Ketones Negative (Negative) Urine Blood Negative (Negative) Urine Nitrite Negative (Negative) Urine Bilirubin Negative (Negative) Urine Urobilinogen Negative (Negative) Ur Leukocyte Esterase Negative (Negative) 10/21/24 Range/Units 21:40 WBC (4.8-10.8) K/ul RBC (4.70-6.10) M/uL Hgb (14.0-18.0) g/dl Hct (42.0-52.0) % MCV (80.0-100.0) fL MCH (25.0-34.0) pg MCHC (32.0-36.0) g/dL RDW Std Deviation (36.4-46.3) fL RDW Coeff of Dhaval (11.5-14.5) % Plt Count (130-400) K/uL MPV (9.4-12.4) fL Immature Gran % (Auto) % Neut % (Auto) % Lymph % (Auto) % [place] % (Auto) % Eos % (Auto) % Baso % (Auto) % Neut # (Auto) (1.40-6.50) K/uL Lymph # (Auto) (1.20-3.40) K/uL [place] # (Auto) (0.11-0.59) K/uL Eos # (Auto) (0.00-0.50) K/uL Baso # (Auto) (0.00-0.20) K/uL Immature Gran # (Auto) (0.01-0.20) K/uL PT (9.0-12.0) Seconds INR (0.9-1.1) APTT (21-31) Seconds PTT Ratio VBG pH (7.36-7.41) VBG pCO2 (38-50) mmHg VBG pO2 mmHg VBG HCO3 mmol/L VBG O2 Saturation % VBG Base Excess mEq/L Sodium (136-145) mmol/L Potassium (3.5-5.1) mmol/L Chloride (98-107) mmol/L Carbon Dioxide (21-32) mmol/L Anion Gap (3-11) BUN (6-23) mg/dl Creatinine (0.6-1.4) mg/dl Est Cr Clr Drug Dosing ml/min eGFR BUN/Creatinine Ratio (10-20) Glucose (70-99(Fasting)) mg/dl POC Glucose (70-99) mg/dl Lactate (0.4-2.0) mmol/L Calcium (8.6-10.3) mg/dl Magnesium (1.7-2.4) mg/dl Total Bilirubin (0.2-1.0) mg/dl Direct Bilirubin 0.0 AST 35 (13-39) U/L ALT 28 (7-52) U/L Alkaline Phosphatase 106 H (34-104) U/L Troponin I High Sens 29.1 H (0-20) pg/ml Total Protein 7.8 (6.0-8.3) gm/dl Albumin 4.4 (3.4-5.0) gm/dl Urine Color Urine Appearance (Clear) Urine pH (4.5-7.5) Ur Specific [place] (1.000-1.030) Urine Protein (Negative) Urine Glucose (UA) (Negative) Urine Ketones (Negative) Urine Blood (Negative) Urine Nitrite (Negative) Urine Bilirubin (Negative) Urine Urobilinogen (Negative) Ur Leukocyte Esterase (Negative) Administered Medications Discontinued Medications Sodium Chloride (Nss) 500 mls @ 999 mls/hr IV .Q31M ONE Stop: 10/21/24 22:02 Last Admin: 10/21/24 21:58 Dose: 999 mls/hr Documented By: MAXIMINO Acetaminophen (Ofirmev) 1,000 mg in 100 mls @ 400 mls/hr IV NOW STA Stop: 10/21/24 21:46 Last Infusion: 10/21/24 22:56 Dose: Infused Documented By: Admin: 10/21/24 21:58 Dose: 400 mls/hr Documented By: MAXIMINO Cefepime HCl (Maxipime 2000mg) 2,000 mg in 20 mls @ 5 mls/min IV NOW STA Stop: 10/21/24 22:03 Last Admin: 10/21/24 22:16 Dose: 5 mls/min Documented By: MAXIMINO Imaging Data Radiologist's Impression: Head CT 10/21/24 21:32 Exam(s): CT HEAD Without Contrast EXAM: CT Head Without Intravenous Contrast CLINICAL HISTORY: Reason for exam: confusion. TECHNIQUE: Axial computed tomography images of the head/brain without intravenous contrast. CTDI is 49.27 mGy and DLP is 999.06 mGy-cm. Automated exposure control was utilized for the study. A dose lowering technique was utilized adhering to the principles of ALARA. COMPARISON: 05/13/24 FINDINGS: Brain: Age-related parenchymal volume loss. Mild chronic small vessel ischemic change. Alfaro-white matter differentiation maintained. No hemorrhage, mass effect, parenchymal edema, or midline shift. Ventricles: Unremarkable. No hydrocephalus. Bones/joints: Unremarkable. No acute fracture. Soft tissues: Unremarkable. Vasculature: Intracranial atherosclerosis. Sinuses: Unremarkable as visualized. Mastoid air cells: Unremarkable as visualized. No mastoid effusion. IMPRESSION: No acute intracranial process. Electronically signed by: Art Garcia M.D. 10/21/24 22:52 PM Discharge Plan Visit Data Chief Complaint: Altered Mental Status Stated Complaint: Altered Mental Status ED Provider: Romel Iverson Discharge Problem: Altered mental status, Respiratory acidosis, Cellulitis, Anemia, Elevated lactic acid level Patient Disposition: Admitted As Inpatient Condition: Serious Forms Stand Alone Forms: My [facility] Prescriptions Prescriptions: No Action pantoprazole 40 mg Tablet,Delayed Release (Dr/Ec) 40 mg PO DAILY Centrum Silver Men [phone] mcg Tablet 1 tab PO DAILY Rx Instructions: Unable to verify OTC meds at this date/time. empagliflozin 10 mg Tablet 10 mg PO QAM Trelegy Ellipta 100-62.5-25 mcg Blister With Device 1 inh INHALATION DAILY atorvastatin 80 mg tablet 80 mg PO QAM albuterol sulfate 90 mcg/actuation Hfa Aerosol Inhaler 2 puff INHALATION Q6H PRN (Reason: Shortness Of Breath Or Wheezing) fluticasone propionate 50 mcg/actuation [place],Suspension 2 spray INTRANASAL DAILY Rx Instructions: Unable to verify OTC meds at this date/time. spironolactone 25 mg Tablet 12.5 mg PO DAILY Qty: 30 0RF sodium chloride 7 % Solution For Nebulization 4 ml NEB BIDR Qty: 120 0RF ipratropium-albuterol 0.5 mg-3 mg(2.5 mg base)/3 mL solution for nebulization 3 ml INHALATION Q6H Qty: 0 0RF montelukast 10 mg tablet 10 mg PO QAM enalapril maleate 5 mg Tablet 2.5 mg PO DAILY Qty: 30 0RF diclofenac sodium [Voltaren Arthritis Pain] 1 % Gel 4 g EXT BID Qty: 100 0RF guaifenesin [Mucinex] 600 mg Tablet Extended Release 12hr 1,200 mg PO Q12 Qty: 60 0RF theophylline 400 mg Tablet Extended Release 24 Hr 100 mg PO BID Qty: 60 0RF potassium chloride 20 mEq Tablet,Er Particles/Crystals 20 meq PO QAM Qty: 30 0RF torsemide 20 mg Tablet 20 mg PO QAM Qty: 30 0RF warfarin 10 mg Tablet 10 mg PO DAILY Qty: 30 0RF Referrals Referrals: Charley Crane MD [Primary Care Provider] - Discharge Problem: Altered mental status Qualifiers: Altered mental status type: unspecified Qualified Code(s): R41.82 - Altered mental status, unspecified Cellulitis Qualifiers: Site of cellulitis: extremity Site of cellulitis of extremity: lower extremity Laterality: unspecified laterality Qualified Code(s): L03.119 - Cellulitis of unspecified part of limb Anemia Qualifiers: Anemia type: unspecified type Qualified Code(s): D64.9 - Anemia, unspecified
[2024-10-21 21:57] LABS: Base Excess VBG 11.5 mEq/L; HCO3 VBG 43 mmol/L; Oxygen Saturation VBG < 60.0 %; PCO2 VBG 101 mmHg (38-50); PO2 VBG 33 mmHg; pH VBG 7.24 (7.36-7.41)
[2024-10-21] MEDS: SODIUM CHLORIDE 0.9% 500 ML IV ONE (21:58)
[2024-10-21] MEDS: ACETAMINOPHEN 1,000 MG/100 ML VIAL IV STA (21:58)
[2024-10-21 22:03] LABS: Basophils # (auto) 0.02 K/uL (0.00-0.20); Basophils % (auto) 0.2 %; Eosinophils # (auto) 0.01 K/uL (0.00-0.50); Eosinophils % (auto) 0.1 %; Hematocrit (blood only) 32.2 % (42.0-52.0); Hemoglobin 9.2 g/dl (14.0-18.0); Immature Granulocytes # (auto) 0.06 K/uL (0.01-0.20); Immature Granulocytes % (auto) 0.7 %; Lymphocytes # (auto) 0.43 K/uL (1.20-3.40); Lymphocytes % (auto) 5.2 %; Mean Corpuscular Hemoglobin 25.7 pg (25.0-34.0); Mean Corpuscular Hgb Conc 28.6 g/dL (32.0-36.0); Mean Corpuscular Volume 89.9 fL (80.0-100.0); Neutrophils # (auto) 7.28 K/uL (1.40-6.50); Neutrophils % (auto) 87.8 %; Platelet Count 341 K/uL (130-400); RDW Coefficient of Variation 17.2 % (11.5-14.5); Red Blood Count 3.58 M/uL (4.70-6.10)
[2024-10-21] MEDS: CEFEPIME 2000MG 2,000 MG/20 ML SYR IV STA (22:16)
[2024-10-21 22:22] LABS: Appearance Urine Clear (Clear); Bilirubin Urine Negative (Negative); Blood Urine Negative (Negative); Color Urine Yellow; Glucose Urine UA 3+ (Negative); Ketones Urine Negative (Negative); Leukocyte Esterase Urine Negative (Negative); Nitrite Urine Negative (Negative); Protein Urine Negative (Negative); Specific Gravity Urine 1.021 (1.000-1.030); Urobilinogen Urine Negative (Negative)
[2024-10-21 22:27] LABS: Troponin I High Sensitivity 29.1 pg/ml (0-20)
[2024-10-21 22:29] LABS: Alanine Aminotransferase 28 U/L (7-52); Albumin Level 4.4 gm/dl (3.4-5.0); Alkaline Phosphatase 106 U/L (34-104); Anion Gap 6 (3-11); Aspartate Aminotransferase 35 U/L (13-39); BUN Creatinine Ratio 44.8 (10-20); Bilirubin,Total 0.4 mg/dl (0.2-1.0); Blood Urea Nitrogen 47 mg/dl (6-23); Calcium 9.1 mg/dl (8.6-10.3); Carbon Dioxide 41 mmol/L (21-32); Chloride 93 mmol/L (98-107); Creatinine Clr Calc Pharmacy 98.1 ml/min; Glucose 204 mg/dl (70-99(Fasting)); Magnesium 2.5 mg/dl (1.7-2.4); Potassium 5.1 mmol/L (3.5-5.1); Sodium 140 mmol/L (136-145); Total Protein 7.8 gm/dl (6.0-8.3)
[2024-10-21 22:45] LABS: Partial Thromboplastin Ratio 1.5; Partial Thromboplastin Time 41 Seconds (21-31); Prothrombin Time 29.1 Seconds (9.0-12.0)
--- NOTE | 2024-10-21 22:53 | CT Scan Report ---
Exam(s): CT HEAD Without Contrast EXAM: CT Head Without Intravenous Contrast CLINICAL HISTORY: Reason for exam: confusion. TECHNIQUE: Axial computed tomography images of the head/brain without intravenous contrast. CTDI is 49.27 mGy and DLP is 999.06 mGy-cm. Automated exposure control was utilized for the study. A dose lowering technique was utilized adhering to the principles of ALARA. COMPARISON: 05/13/24 FINDINGS: Brain: Age-related parenchymal volume loss. Mild chronic small vessel ischemic change. Alfaro-white matter differentiation maintained. No hemorrhage, mass effect, parenchymal edema, or midline shift. Ventricles: Unremarkable. No hydrocephalus. Bones/joints: Unremarkable. No acute fracture. Soft tissues: Unremarkable. Vasculature: Intracranial atherosclerosis. Sinuses: Unremarkable as visualized. Mastoid air cells: Unremarkable as visualized. No mastoid effusion. IMPRESSION: No acute intracranial process. Electronically signed by: Art Garcia M.D. 10/21/24 22:52 PM
--- NOTE | 2024-10-21 23:15 | XRay Report ---
Exam(s): XR CXR 1 VIEW EXAM: XR Chest, 1 View CLINICAL HISTORY: Reason for exam: Sepsis. TECHNIQUE: Frontal view of the chest. COMPARISON: 09/16/24 FINDINGS: Lungs: Bilateral interstitial/ground-glass opacities. Pleural space: Unremarkable. No pneumothorax. Heart: Cardiomegaly and vascular congestion. Bones/joints: Possible small effusions. Regular morphology of both humeral heads, stable from prior, possibly sequela of osteonecrosis. IMPRESSION: 1. Bilateral interstitial/ground-glass opacities. Appearance suggests edema, but pneumonia is not excluded. 2. Cardiomegaly and vascular congestion. 3. Possible small effusions. Electronically signed by: Art Garcia M.D. 10/21/24 23:14 PM
[2024-10-22 02:08] LABS: Base Excess VBG 15.2 mEq/L; HCO3 VBG 45 mmol/L; PCO2 VBG 79 mmHg (38-50); PO2 VBG 45 mmHg; pH VBG 7.36 (7.36-7.41)
[2024-10-22] MEDS ORDERED: PHARMACY GLYCEMIC MGMT CONSULT PRN (04:04)
[2024-10-22] MEDS ORDERED: CARBOHYDRATES FOR HYPOGLYCEMIA PO PRN (04:04)
[2024-10-22] MEDS ORDERED: GLUCAGON FOR INJ 1 MG VIAL SQ PRN (04:04)
[2024-10-22] MEDS ORDERED: GLUCOSE 10 TAB/TUBE PO PRN (04:04)
[2024-10-22] MEDS ORDERED: ALBUT/IPRATROP 3MG/0.5MG NEB 3 ML VIAL INH SCH (04:04)
[2024-10-22] MEDS ORDERED: DEXTROSE 50% 50 ML SYRINGE IV PRN (04:04)
[2024-10-22] MEDS ORDERED: GLUCOSE 40% GEL 15 GM TUBE PO PRN (04:04)
[2024-10-22] MEDS ORDERED: ALBUTEROL HFA 8 GM INHALER INH PRN (04:04)
[2024-10-22] MEDS ORDERED: NITROGLYCERIN SL 0.4 MG/TAB TAB SL PRN (04:04)
[2024-10-22] MEDS: DOXYCYCLINE HYCLATE 100 MG in DEXTROSE 5% MINI-B 100 ML IV SCH (04:46)
[2024-10-22] MEDS: ALBUT/IPRATROP 3MG/0.5MG NEB 3 ML VIAL NEB PRN (04:58)
[2024-10-22] MEDS: ALBUT/IPRATROP 3MG/0.5MG NEB 3 ML VIAL NEB SCH (05:00)
[2024-10-22 06:14] LABS: Basophils # (auto) 0.04 K/uL (0.00-0.20); Basophils % (auto) 0.5 %; Eosinophils # (auto) 0.09 K/uL (0.00-0.50); Eosinophils % (auto) 1.2 %; Hematocrit (blood only) 28.5 % (42.0-52.0); Hemoglobin 8.3 g/dl (14.0-18.0); Immature Granulocytes # (auto) 0.05 K/uL (0.01-0.20); Immature Granulocytes % (auto) 0.6 %; Lymphocytes # (auto) 0.97 K/uL (1.20-3.40); Lymphocytes % (auto) 12.4 %; Mean Corpuscular Hemoglobin 25.8 pg (25.0-34.0); Mean Corpuscular Hgb Conc 29.1 g/dL (32.0-36.0); Mean Corpuscular Volume 88.5 fL (80.0-100.0); Mean Platelet Volume 8.9 fL (9.4-12.4); Monocytes # (auto) 0.99 K/uL (0.11-0.59); Monocytes % (auto) 12.7 %; Neutrophils # (auto) 5.66 K/uL (1.40-6.50); Neutrophils % (auto) 72.6 %; Nucleated RBC # (auto) 0.03 K/uL (0.00-0.12); Nucleated RBC % (auto) 0.4 %; Platelet Count 281 K/uL (130-400); RDW Coefficient of Variation 17.1 % (11.5-14.5); RDW Standard Deviation 55.1 fL (36.4-46.3); Red Blood Count 3.22 M/uL (4.70-6.10)
--- NOTE | 2024-10-22 06:26 | History & Physical Report ---
Date of Service October 22, 2024 Assessment & Plan (1) Altered mental status: Plan: 69-year-old male with past medical history significant for type 2 diabetes, chronic respiratory failure with hypoxia and hypercapnia on 3 L oxygen all the time, hyperlipidemia, obesity hypoventilation syndrome, COPD, BiPAP dependent, atrial fibrillation, pulmonary hypertension, chronic heart failure preserved ejection fraction, venous insufficiency, hypertension, morbid obesity, CKD stage III, history of DVT, atherosclerosis of [place] coronary artery without angina who lives at home with his son was brought in because of altered mental status and found to have CO2 retention and also lower extremity cellulitis. His family found him somewhat unresponsive and altered and was brought to the ER. By time the patient was brought to the hospital his mental status improved. His VBG showed CO2 retention. And also seem to have lower EXTR cellulitis. Patient was placed on BiPAP. Currently alert and oriented x 3. His sugars at home were 400 for EMS but in the ER they are running in 200s.Legs are more erythematous than usual. Patient denies headache. No runny nose. Has some cough. Denies any chest pain. Denies any shortness of breath currently. No nausea. No abdominal pain. Normal bowel and bladder movements. Hemodynamics are okay currently. Patient was recently in the hospital for acute on chronic respiratory failure secondary COPD exacerbation and also acute on chronic diastolic CHF. Altered mental status From respiratory acidosis and cellulitis of lower extremities Mental status currently improved On BiPAP VBG improved Received cefepime in the ER will also add doxycycline Close monitor Acute on chronic respiratory failure Acute on chronic heart failure with preserved ejection fraction Possible COPD exacerbation Obesity hypoventilation syndrome Initial lactic acid 2.1 repeat is 1.[address] chest Continue BiPAP for now IV Lasix 40 mL twice daily Continue Aldactone and potassium supplements Daily weights and I's and O's Nebs [id number] and as needed Telemetry Cardiac consult in a.m. Obesity hypoventilation syndrome BiPAP nightly and and when napping Bilateral lower EXTR cellulitis On cefepime and Doxy Monitor the response Diabetes Insulin sliding scale Monitor CKD stage III Creatinine 0.8 We will follow labs History of DVT On Coumadin INR 3 Follow PT/INR History of A-fib Last admission Coreg was stopped for bradycardia but was restarted by PCP On Coumadin Follow INR Morbid obesity Counseling DVT prophylaxis On Coumadin follow PT/INR Disposition Telemetry Full code. History of Present Illness Chief Complaint: Altered mental status Primary Care Provider: Charley Crane MD 69-year-old male with past medical history significant for type 2 diabetes, chronic respiratory failure with hypoxia and hypercapnia on 3 L oxygen all the time, hyperlipidemia, obesity hypoventilation syndrome, COPD, BiPAP dependent, atrial fibrillation, pulmonary hypertension, chronic heart failure preserved ejection fraction, venous insufficiency, hypertension, morbid obesity, CKD stage III, history of DVT, atherosclerosis of [place] coronary artery without angina who lives at home with his son was brought in because of altered mental status and found to have CO2 retention and also lower extremity cellulitis. His family found him somewhat unresponsive and altered and was brought to the ER. By time the patient was brought to the hospital his mental status improved. His VBG showed CO2 retention. And also seem to have lower EXTR cellulitis. Patient was placed on BiPAP. Currently alert and oriented x 3. His sugars at home were 400 for EMS but in the ER they are running in 200s.Legs are more erythematous than usual. Patient denies headache. No runny nose. Has some cough. Denies any chest pain. Denies any shortness of breath currently. No nausea. No abdominal pain. Normal bowel and bladder movements. Hemodynamics are okay currently. Patient was recently in the hospital for acute on chronic respiratory failure secondary COPD exacerbation and also acute on chronic diastolic CHF. Past medical history. As mentioned above Past surgical history. Left lower extremity vascular surgery Social history quit smoking 2012. Smoked a pack which used to last 2 to 3 weeks for 30 years. No alcohol use. No drug use. Family history. Father had heart attacks. Mother had Alzheimer's. Son has diabetes. Allergies Allergy/AdvReac Type Severity Reaction Status Date / Time No Known Allergies Allergy Verified 09/13/24 15:45 Home Medications Medication Instructions Recorded Confirmed Type empagliflozin 10 mg tablet 10 mg PO QAM 06/10/23 10/21/24 History fluticasone fur. 100 mcg-umeclid 1 inh inhalation DAILY 06/10/23 10/21/24 History 62.5 mcg-vilant 25 mcg inhalat.powder (Trelegy Ellipta) [id number] 300 mcg-K 60 1 tab PO DAILY 06/10/23 10/21/24 History mcg-lycop 600 mcg-lutein 300 mcg tablet (Centrum Silver Men) pantoprazole 40 mg tablet,delayed 40 mg PO DAILY 06/10/23 10/21/24 History release albuterol sulfate 90 mcg/actuation 2 puff inhalation Q6H PRN 05/12/24 10/21/24 History aerosol inhaler Shortness Of Breath Or Wheezing atorvastatin 80 mg tablet 80 mg PO QAM 05/12/24 10/21/24 History fluticasone propionate 50 2 spray intranasal DAILY 05/12/24 10/21/24 History mcg/actuation nasal spray,suspension ipratropium 0.5 mg-albuterol 3 mg 3 ml inhalation Q6H Shortness Of 05/19/24 10/21/24 Rx (2.5 mg base)/3 mL nebulization Breath #0 mL soln sodium chloride 7 % for 4 ml NEB BIDR #120 mL 05/19/24 10/21/24 Rx nebulization spironolactone 25 mg tablet 12.5 mg (1/2 x 25 mg) PO DAILY #30 05/19/24 10/21/24 Rx tabs montelukast 10 mg tablet 10 mg PO QAM 07/20/24 10/21/24 History diclofenac sodium 1 % topical gel 4 g EXT BID #100 grams 07/29/24 10/21/24 Rx (Voltaren Arthritis Pain) enalapril maleate 5 mg tablet 2.5 mg (1/2 x 5 mg) PO DAILY #30 07/29/24 10/21/24 Rx tabs guaifenesin 600 mg tablet, 1,200 mg (2 x 600 mg) PO Q12 #60 07/29/24 10/21/24 Rx extended release 12 hr (Mucinex) tabs theophylline 400 mg 100 mg (1/4 x 400 mg) PO BID #60 07/29/24 10/21/24 Rx tablet,extended release 24 hr tabs potassium chloride 20 mEq 20 meq PO QAM #30 tabs 09/26/24 10/21/24 Rx tablet,extended release(part/cryst) torsemide 20 mg tablet 20 mg PO QAM #30 tabs 09/26/24 10/21/24 Rx warfarin 10 mg tablet 10 mg PO DAILY #30 tabs 09/26/24 10/21/24 Rx carvedilol 3.125 mg tablet 3.125 mg PO BID 10/22/24 10/22/24 History Past Med/Surg History Problem List (Updated 10/21/24 @ 23:07 by Romel Iverson MD) Elevated lactic acid level (Acute) Anemia (Acute) Cellulitis (Acute) Respiratory acidosis (Acute) Altered mental status (Acute) Acute exacerbation of chronic obstructive pulmonary disease (COPD) Metabolic alkalosis with respiratory acidosis Morbid obesity Acute on chronic respiratory failure with hypoxia and hypercapnia Bradycardia Hypotension Hyperkalemia Bilateral cellulitis of lower leg Hypoxia (Acute) Abnormal CT scan, chest Obesity hypoventilation syndrome Acute on chronic heart failure with preserved ejection fraction Congestive heart failure (Acute) Acute respiratory failure with hypoxia and hypercarbia (Acute) Acute on chronic congestive heart failure (Acute) O2 dependent (Acute) Anticoagulant long-term use Chronic a-fib DM II (diabetes mellitus, type II), controlled Chronic respiratory failure with hypoxia COPD (chronic obstructive pulmonary disease) (Acute) Medical History Pulmonary hypertension Hx of smoking Chronic congestive heart failure Hx of deep venous thrombosis Surgical History No pertinent past surgical history Family History Other Diabetes Social History Smoking Status: Never smoker Tobacco Type: Cigarettes Second Hand Exposure: Yes; Do You Dip or Chew Tobacco: No; Hx Alcohol Use: No Hx Substance Use: No Preferred Language: Vietnamese Communication Ability: Effective Director Of Vocational Training Required: No Beliefs That Will Affect Care: None Current Living Situation: Other Current Living Situation Comment: lives with son Other Information That Helps Us Care for You: No Feels Safe at Home: Yes Safety Concerns: Feels Safe At This Time Assistive Devices: BiPap, Glasses and Oxygen - Continuous Review of Systems Review of Systems: All systems reviewed & are unremarkable except as noted in HPI & below Physical Exam Physical Exam: General- Not in distress Head- atraumatic Eyes- PERRL. ENT- oropharynx clear Neck- supple, no JVD. Lungs- clear to auscultation no wheezing or crackles Heart- regular rhythm; no murmur, no gallop. Abdomen- normal bowel sounds, soft, nontender, no distension Extremities- b/l lower extremity gross edema with erythema seen. Neuro- alert, oriented x 3; PERRL, ; no facial palsy; no dysarthria; Results & Data Results & Data Vital Signs (Past 12 Hours) Vital Signs Temp Pulse Pulse Resp BP BP Pulse Ox 10/22/24 01:31 55 L 10/22/24 00:18 69 19 138/89 93 10/21/24 23:11 69 114/84 94 10/21/24 22:54 54 L 94 10/21/24 22:54 54 L 93 10/21/24 22:10 57 L 20 99 10/21/24 21:28 118 H 10/21/24 21:01 70 17 94 10/21/24 21:01 36.7 C 74 18 123/57 L 92 O2 Del Method O2 Flow Rate FiO2 10/22/24 01:31 10/22/24 00:18 CPAP 10/21/24 23:11 CPAP 10/21/24 22:54 CPAP 10/21/24 22:54 CPAP 10/21/24 22:10 28 10/21/24 21:28 10/21/24 21:01 Nasal Cannula 10/21/24 21:01 Nasal Cannula 2 Diagnostic Findings Laboratory Results - last 24 hr 10/21/24 10/21/24 10/21/24 20:54 21:20 21:40 WBC 8.30 RBC 3.58 L Hgb 9.2 L Hct 32.2 L MCV 89.9 MCH 25.7 MCHC 28.6 L RDW Std Deviation 57.0 H RDW Coeff of Dhaval 17.2 H Plt Count 341 MPV 9.0 L Immature Gran % (Auto) 0.7 Neut % (Auto) 87.8 Lymph % (Auto) 5.2 [place] % (Auto) 6.0 Eos % (Auto) 0.1 Baso % (Auto) 0.2 Neut # (Auto) 7.28 H Lymph # (Auto) 0.43 L [place] # (Auto) 0.50 Eos # (Auto) 0.01 Baso # (Auto) 0.02 Immature Gran # (Auto) 0.06 Absolute Nucleated RBC Nucleated RBC % (auto) PT 29.1 H INR 3.0 H APTT 41 H PTT Ratio 1.5 VBG pH 7.24 L VBG pCO2 101 H VBG pO2 33 VBG HCO3 43 VBG O2 Saturation < 60.0 VBG Base Excess 11.5 Sodium 140 Potassium 5.1 Chloride 93 L Carbon Dioxide 41 H* Anion Gap 6 BUN 47 H Creatinine 1.05 Est Cr Clr Drug Dosing 98.1 eGFR 77.32 BUN/Creatinine Ratio 44.8 H Glucose 204 H POC Glucose 265 H Estimat Average Glucose Hemoglobin A1c Lactate 2.2 H* Calcium 9.1 Magnesium 2.5 H Total Bilirubin 0.4 Direct Bilirubin TNP AST ALT Alkaline Phosphatase Troponin I High Sens B-Natriuretic Peptide Total Protein Albumin Procalcitonin Urine Color Yellow Urine Appearance Clear Urine pH 5.0 Ur Specific [place] 1.021 Urine Protein Negative Urine Glucose (UA) 3+ H Urine Ketones Negative Urine Blood Negative Urine Nitrite Negative Urine Bilirubin Negative Urine Urobilinogen Negative Ur Leukocyte Esterase Negative 10/21/24 10/21/24 10/21/24 21:40 22:49 23:52 WBC RBC Hgb Hct MCV MCH MCHC RDW Std Deviation RDW Coeff of Dhaval Plt Count MPV Immature Gran % (Auto) Neut % (Auto) Lymph % (Auto) [place] % (Auto) Eos % (Auto) Baso % (Auto) Neut # (Auto) Lymph # (Auto) [place] # (Auto) Eos # (Auto) Baso # (Auto) Immature Gran # (Auto) Absolute Nucleated RBC Nucleated RBC % (auto) PT INR APTT PTT Ratio VBG pH VBG pCO2 VBG pO2 VBG HCO3 VBG O2 Saturation VBG Base Excess Sodium Potassium Chloride Carbon Dioxide Anion Gap BUN Creatinine Est Cr Clr Drug Dosing eGFR BUN/Creatinine Ratio Glucose POC Glucose Estimat Average Glucose Hemoglobin A1c Lactate 1.4 Calcium Magnesium Total Bilirubin Direct Bilirubin 0.0 AST 35 ALT 28 Alkaline Phosphatase 106 H Troponin I High Sens 29.1 H 27.5 H B-Natriuretic Peptide Total Protein 7.8 Albumin 4.4 Procalcitonin 0.13 Urine Color Urine Appearance Urine pH Ur Specific [place] Urine Protein Urine Glucose (UA) Urine Ketones Urine Blood Urine Nitrite Urine Bilirubin Urine Urobilinogen Ur Leukocyte Esterase 10/22/24 10/22/24 01:52 05:44 WBC 7.80 RBC 3.22 L Hgb 8.3 L Hct 28.5 L MCV 88.5 MCH 25.8 MCHC 29.1 L RDW Std Deviation 55.1 H RDW Coeff of Dhaval 17.1 H Plt Count 281 MPV 8.9 L Immature Gran % (Auto) 0.6 Neut % (Auto) 72.6 Lymph % (Auto) 12.4 [place] % (Auto) 12.7 Eos % (Auto) 1.2 Baso % (Auto) 0.5 Neut # (Auto) 5.66 Lymph # (Auto) 0.97 L [place] # (Auto) 0.99 H Eos # (Auto) 0.09 Baso # (Auto) 0.04 Immature Gran # (Auto) 0.05 Absolute Nucleated RBC 0.03 Nucleated RBC % (auto) 0.4 PT Pending INR Pending APTT PTT Ratio VBG pH 7.36 VBG pCO2 79 H VBG pO2 45 VBG HCO3 45 VBG O2 Saturation 80.0 VBG Base Excess 15.2 Sodium Pending Potassium Pending Chloride Pending Carbon Dioxide Pending Anion Gap Pending BUN Pending Creatinine Pending Est Cr Clr Drug Dosing Pending eGFR Pending BUN/Creatinine Ratio Pending Glucose Pending POC Glucose Estimat Average Glucose Pending Hemoglobin A1c Pending Lactate Calcium Pending Magnesium Pending Total Bilirubin Direct Bilirubin AST ALT Alkaline Phosphatase Troponin I High Sens Pending B-Natriuretic Peptide Pending Total Protein Albumin Procalcitonin Urine Color Urine Appearance Urine pH Ur Specific [place] Urine Protein Urine Glucose (UA) Urine Ketones Urine Blood Urine Nitrite Urine Bilirubin Urine Urobilinogen Ur Leukocyte Esterase ECG Additional Comments: ECG. Atrial fibrillation at rate of 67. No significant change was found. Code Status & VTE Plan VTE Prophylaxis Plan VTE Prophylaxis will be ordered: Yes (1) Altered mental status Altered mental status type: unspecified Qualified Code(s): R41.82 - Altered mental status, unspecified
[2024-10-22 06:34] LABS: BUN Creatinine Ratio 49.4 (10-20); Calcium 8.7 mg/dl (8.6-10.3); Magnesium 2.4 mg/dl (1.7-2.4); Potassium 4.5 mmol/L (3.5-5.1)
[2024-10-22 06:38] LABS: INR 3.4 (0.9-1.1); Prothrombin Time 33.2 Seconds (9.0-12.0)
[2024-10-22] MEDS: SODIUM CHLOR 7% 4 ML NEB NEB SCH (07:21)
[2024-10-22 07:43] LABS: Estimated Average Glucose 140 mg/dl; Hemoglobin A1C 6.5 % (4.5-5.6)
--- NOTE | 2024-10-22 08:12 | CT Scan Report ---
EXAM: CT chest diagnostic wo con CLINICAL HISTORY: Congestive Heart Failure /pneumonia. sob pt unable to raise arms above head. TECHNIQUE: Contiguous axial CT images of the chest were acquired without administration of intravenous contrast. Coronal and sagittal reconstructions were obtained. One of the following dose reduction techniques were utilized for this exam: Automated exposure control, adjustment of the mA and/or kV according to patient size, use of iterative reconstruction. COMPARISON: Prior X-ray dated 09/13/2024 for comparison. FINDINGS: Lungs: Mosaic attenuation in bilateral lungs. Minimal bilateral pleural effusion and subsegmental atelectasis in posterior basal segments of both lower lobes. Scattered atelectatic bands in bilateral lungs. Mild thickening of right major fissure. Mediastinum: The mediastinum is normal in size and contour. Cardiomegaly. Main pulmonary artery dilated in caliber measuring 4.2 cm. Mild atherosclerotic wall calcifications in aorta. Coronary artery disease. Few enlarged mediastinal lymph nodes largest 2.8 x 1.8 cm in paraesophageal region. Hilar Structures: The hilar structures appear normal without enlargement or abnormality. Trachea and Main Bronchi: The trachea and main bronchi are patent without evidence of obstruction or abnormality. Chest Wall: The chest wall is unremarkable with no evidence of soft tissue or bony abnormalities. Upper Abdomen: Visualized portions of the liver, spleen, adrenal glands, and kidneys are unremarkable. Bones: Significant degenerative changes in bilateral glenohumeral joints and mild left joint effusion. Spondylotic changes in thoracic spine with schmorl node and end plate sclerotic foci Visualized osseous structures are normal, no evidence of fracture or lytic/sclerotic lesions. IMPRESSION: 1. Minimal bilateral pleural effusion and subsegmental atelectasis in posterior basal segments of both lower lobes. 2. Mosaic attenuation and scattered atelectatic bands in bilateral lungs. 3. Cardiomegaly and pulmonary artery hypertension. 4. Enlarged mediastinal lymph nodes likely reactive. Electronically signed by Nils Min 10-22-2024 08:12 AM
--- NOTE | 2024-10-22 08:33 | Pulmonary Consultation ---
Date of Consultation October 22, 2024 Assessment & Plan (1) Heart failure, diastolic, with acute decompensation: (2) Acute on chronic respiratory failure with hypoxia and hypercapnia: (3) Abnormal CT scan, chest: (4) Asthma-COPD overlap syndrome: (5) CRISTOFER (obstructive sleep apnea): (6) Obesity hypoventilation syndrome: Plan CTA chest 10/22/2024 personally reviewed: Minimal centrilobular emphysema appreciated bilaterally Dependent atelectasis bilateral lower lobes, right greater than left Small bilateral pleural effusion Cardiomegaly Station 4 subcarinal lymphadenopathy 2D echo 07/21/2024: EF 60-65%, mild concentric LVH, RV not well-visualized but mildly dilated, RV systolic function normal, PASP 57 mmHg VBG 10/21/2024: 7.24/101/33 -- Acute on chronic hypercapnic hypoxic respiratory failure Multifactorial For hypoxia HFpEF and possibly COPD exacerbation For hypercapnia likely underlying CRISTOFER/OHS with noncompliance BNP 439 Procalcitonin 0.13 Respiratory BioFire was negative for everything on 09/13/2024 -- Asthma-COPD overlap syndrome Lifetime non-smoker Does have significant exposure to smoke and fumes at work On Trelegy 100 at home On montelukast Absolute eosinophil count 360 on 07/28/2024 --CRISTOFER/OHS On BiPAP at home --Pulmonary hypertension Likely combination of type II and type III -- History of DVT On warfarin Plan: Even though the patient is a lifetime non-smoker, I do see minimal emphysema on the CT chest I will order alpha-1 level and phenotype Continue with BiPAP nightly and as needed shortness of breath and aim tidal volume of 420 with backup rate of 15 Try to avoid over oxygenation, goal O2 saturation 90-92% The probability of patient having pneumonia is low, okay to continue with antibiotics for COPD exacerbation Nebulized bronchodilators while in the hospital Continue with diuretics to keep the patient negative balance Please note the above document was generated using voice recognition software. It may contain grammatical, syntax or spelling errors.Any formal questions or concerns about the content, text or information contained within the body of this dictation should be directly addressed to the provider for clarification. History of Present Illness Attending Physician: Cori Rothman MD History of Present Illness 69-year-old male admitted to the hospital for altered mental status Past medical history: CRISTOFER/OHS on BiPAP, chronic hypoxic respiratory failure on 2 and half-3 L at home, A-fib, pulmonary hypertension, HFpEF, hypertension, CKD Pulmonary consulted for hypercapnia RN was in the room at the time of examination He was saturating 94% on 5 L nasal cannula. He was not in respiratory distress. He stated that he is compliant with his BiPAP and uses it religiously. His son's friend who smokes as well as does marijuana visited him at his home. It was after that that he had some chest tightness and difficulty breathing. Similar episodes have happened in the past as per the patient whenever this friends visits. He says that he is compliant with his inhalers as well. Has been complaining of cough difficulty bringing up phlegm Subjective chills. 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 Was exposed to significant smoke and fumes at work -- History of lung cancer in maternal grandmother who was a smoker as well as aunt who was a non-smoker Allergies Allergy/AdvReac Type Severity Reaction Status Date / Time No Known Allergies Allergy Verified 09/13/24 15:45 Home Medications Medication Instructions Recorded Confirmed Type empagliflozin 10 mg tablet 10 mg PO QAM 06/10/23 10/21/24 History fluticasone fur. 100 mcg-umeclid 1 inh inhalation DAILY 06/10/23 10/21/24 History 62.5 mcg-vilant 25 mcg inhalat.powder (Trelegy Ellipta) [id number] 300 mcg-K 60 1 tab PO DAILY 06/10/23 10/21/24 History mcg-lycop 600 mcg-lutein 300 mcg tablet (Centrum Silver Men) pantoprazole 40 mg tablet,delayed 40 mg PO DAILY 06/10/23 10/21/24 History release albuterol sulfate 90 mcg/actuation 2 puff inhalation Q6H PRN 05/12/24 10/21/24 History aerosol inhaler Shortness Of Breath Or Wheezing atorvastatin 80 mg tablet 80 mg PO QAM 05/12/24 10/21/24 History fluticasone propionate 50 2 spray intranasal DAILY 05/12/24 10/21/24 History mcg/actuation nasal spray,suspension ipratropium 0.5 mg-albuterol 3 mg 3 ml inhalation Q6H Shortness Of 05/19/24 10/21/24 Rx (2.5 mg base)/3 mL nebulization Breath #0 mL soln sodium chloride 7 % for 4 ml NEB BIDR #120 mL 05/19/24 10/21/24 Rx nebulization spironolactone 25 mg tablet 12.5 mg (1/2 x 25 mg) PO DAILY #30 05/19/24 10/21/24 Rx tabs montelukast 10 mg tablet 10 mg PO QAM 07/20/24 10/21/24 History diclofenac sodium 1 % topical gel 4 g EXT BID #100 grams 07/29/24 10/21/24 Rx (Voltaren Arthritis Pain) enalapril maleate 5 mg tablet 2.5 mg (1/2 x 5 mg) PO DAILY #30 07/29/24 10/21/24 Rx tabs guaifenesin 600 mg tablet, 1,200 mg (2 x 600 mg) PO Q12 #60 07/29/24 10/21/24 Rx extended release 12 hr (Mucinex) tabs theophylline 400 mg 100 mg (1/4 x 400 mg) PO BID #60 07/29/24 10/21/24 Rx tablet,extended release 24 hr tabs potassium chloride 20 mEq 20 meq PO QAM #30 tabs 09/26/24 10/21/24 Rx tablet,extended release(part/cryst) torsemide 20 mg tablet 20 mg PO QAM #30 tabs 09/26/24 10/21/24 Rx warfarin 10 mg tablet 10 mg PO DAILY #30 tabs 09/26/24 10/21/24 Rx carvedilol 3.125 mg tablet 3.125 mg PO BID 10/22/24 10/22/24 History Patient History Medical History Pulmonary hypertension Hx of smoking Chronic congestive heart failure Hx of deep venous thrombosis Surgical History No pertinent past surgical history Family History Other Diabetes Social History Smoking Status: Never smoker Tobacco Type: Cigarettes Second Hand Exposure: Yes; Do You Dip or Chew Tobacco: No; Hx Alcohol Use: No Hx Substance Use: No Preferred Language: Swedish Communication Ability: Effective 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 Required: No Beliefs That Will Affect Care: None Current Living Situation: Other Current Living Situation Comment: lives with son Other Information That Helps Us Care for You: No Feels Safe at Home: Yes Safety Concerns: Feels Safe At This Time Assistive Devices: BiPap, Glasses and Oxygen - Continuous Review of Systems 2 Review of Systems: All systems reviewed & are unremarkable except as noted in HPI & below Physical Exam 2 Physical Exam: Constitutional: No acute distress HEENT: EOMI, PERRLA Respiratory system: Decreased air entry bilaterally, no wheeze, no rhonchi, minimal crackles bilateral lower lobe CVS: S1-S2 positive, no murmurs or gallops Abdomen: Soft, nontender, nondistended, positive bowel sounds x4, obese Extremities: +2 pulses bilaterally radialis/ dorsalis pedis, no cyanosis, +3 pitting edema bilateral lower extremity, positive rubor, positive calor, no dolor Neuro: Awake alert oriented x3 Psych: Normal mood and affect G/U: Positive Barron Skin: no rashes, warm and dry Lymphatic: no cervical or axillary lymphadenopathy Results & Data Results & Data Vital Signs (Past 12 Hours) Vital Signs Temp Pulse Pulse Resp BP BP BP 10/22/24 07:37 36.8 C 68 22 125/73 10/22/24 07:21 71 18 10/22/24 05:31 36.6 C 67 20 104/78 10/22/24 05:03 70 20 10/22/24 04:59 70 20 10/22/24 04:36 10/22/24 04:21 10/22/24 04:04 10/22/24 04:04 36.6 C 67 20 104/78 10/22/24 03:47 60 24 10/22/24 02:43 62 24 150/65 H 10/22/24 02:11 68 10/22/24 01:31 55 L 10/22/24 00:18 69 19 138/89 10/21/24 23:11 69 114/84 10/21/24 22:54 54 L 10/21/24 22:54 54 L 10/21/24 22:10 57 L 20 10/21/24 21:28 118 H 10/21/24 21:01 70 17 10/21/24 21:01 36.7 C 74 18 123/57 L Pulse Ox Pulse Ox O2 Del Method O2 Del Method O2 Flow Rate FiO2 10/22/24 07:37 97 High Flow Nasal Cannula 14 10/22/24 07:21 99 High Flow Nasal Cannula 30 50 10/22/24 05:31 94 BiPAP 10/22/24 05:03 91 High Flow Nasal Cannula 30 50 10/22/24 04:59 91 High Flow Nasal Cannula 30 50 10/22/24 04:36 BiPAP 10/22/24 04:21 BiPAP 10/22/24 04:04 90 High Flow Nasal Cannula 10/22/24 04:04 94 BiPAP 10/22/24 03:47 94 28 10/22/24 02:43 91 CPAP 10/22/24 02:11 95 CPAP 10/22/24 01:31 10/22/24 00:18 93 CPAP 10/21/24 23:11 94 CPAP 10/21/24 22:54 94 CPAP 10/21/24 22:54 93 CPAP 10/21/24 22:10 99 28 10/21/24 21:28 10/21/24 21:01 94 Nasal Cannula 10/21/24 21:01 92 Nasal Cannula 2 Laboratory Results 10/22/24 05:44 10/22/24 05:44 PG Care Time/CCT Total # of Minutes Spent Total Time Spent with Patient: Total time spent is greater than 50% in coordination of care (as documented) at patient's floor/unit and/or counseling patient: Coding Level of Care Code 41293 INT INP/OBS CARE 3/75MIN Diagnoses Heart failure, diastolic, with acute decompensation I50.33 Acute on chronic respiratory failure with hypoxia and hypercapnia J96.21; J96.[address] scan, chest R93.89 Asthma-COPD overlap syndrome J44.89 CRISTOFER (obstructive sleep apnea) G47.33 Obesity hypoventilation syndrome E66.2
[2024-10-22] MEDS: INSULIN ASPART PER UNIT CHARGE SC SCH (08:36)
[2024-10-22] MEDS: carvediloL 3.125 MG TAB PO SCH (08:37)
[2024-10-22] MEDS: CEFEPIME 2000MG 2,000 MG/20 ML SYR IV SCH (08:38)
[2024-10-22] MEDS: CEROVITE ADV FORMULA TAB PO SCH (08:39)
[2024-10-22] MEDS: ATORVASTATIN 40 MG TAB PO SCH (08:39)
[2024-10-22] MEDS: SPIRONOLACTONE 12.5 MG TAB PO SCH (08:39)
[2024-10-22] MEDS: PANTOprazole 40 MG TAB PO SCH (08:39)
[2024-10-22] MEDS: FUROSEMIDE 40 MG/4 ML VIAL IV SCH ×2 (08:40→16:20)
[2024-10-22] MEDS: guaiFENesin 600 MG TABCR PO SCH (08:40)
[2024-10-22] MEDS: MONTELUKAST SODIUM 10 MG TABLET PO SCH (08:40)
[2024-10-22] MEDS: THEOPHYLLINE 400 MG EXTENDED REL TAB PO SCH (08:41)
[2024-10-22] MEDS: FLUTICASONE FUROATE 100MCG 14 PUFFS/INHALER INH SCH (08:42)
[2024-10-22] MEDS: UMECLIDINIUM/VILANTEROL 62.5/25MCG 7 PUFFS/INHALER INH SCH (08:43)
[2024-10-22] MEDS: EMPAGLIFLOZIN 10 MG TAB PO SCH (08:43)
[2024-10-22] MEDS: FLUTICASONE PROPIONATE NA SPR 16 GM BTL SCH (08:44)
[2024-10-22] MEDS ORDERED: NON-FORMULARY MEDICATION (Fluticasone-Umeclidin-Vilanter [Trelegy Ellipta] 100-62.5-25 mcg INH SCH (09:00)
--- NOTE | 2024-10-22 10:20 | Pharmacy Report ---
Pharmacy Glycemic Short Note 2 - Date of Service October 22, 2024 - Glycemic Short BSG Results (Last 24 hours): 10/21/24 10/21/24 10/22/24 20:54 21:40 05:44 Glucose 204 H 110 H POC Glucose 265 H OUTPATIENT ANTIDIABETIC REGIMEN: * empagliflozin 10 mg daily ASSESSMENT: * 69 year old admitted with altered mental status, potential COPD exacerbation/cellulitis. Diabetes per notes, only on oral agent at home. Novolog started on admission, will continue for now. PLAN FOR INPATIENT GLYCEMIC CONTROL: * Hold outpatient oral diabetes medications * Basal insulin * Lantus - hold * Bolus insulin * NovoLog per scale ACHS or Q6hrs while NPO * Goal Range: Low 110 mg/dL - High 140 mg/dL * Correction Factor: 20 mg/dL/unit * Nutritional / Prandial insulin per carb ratio of 1 unit per 15 grams CHO consumed
--- NOTE | 2024-10-22 10:31 | Cardiology Consultation ---
Date of Consultation October 22, 2024 Assessment & Plan (1) Bilateral cellulitis of lower leg: (2) Acute respiratory failure with hypoxia and hypercarbia: (3) Heart failure, diastolic, with acute decompensation: (4) Chronic a-fib: (5) Obesity hypoventilation syndrome: Plan Bilateral lower extremity cellulitis. As per Hospitalist service. Acute decompensated heart failure with preserved ejection fraction * Increase IV Lasix to 60 mg twice per day * Increase spironolactone to 25 mg/day * Continue potassium chloride supplementation for now * Continue Empagliflozin (Jardiance) * Fluid restrict to 1500 mL * Sodium restrict to less than 1500 mg/day * Hold enalapril, ? future use of Entresto Chronic atrial fibrillation * Carvedilol discontinued in June 2024 due to significant bradycardia, which time Theophylline was prescribed with resultant significant improvement * At that time, and at present, patient is not a candidate for permanent pacemaker implantation * Carvedilol resumed by PCP on October 06, 2024 * Recommend discontinuation of carvedilol once again * Continue chronic anticoagulation Morbid obesity, obesity hypoventilation syndrome, severe pulmonary hypertension, chronic hypoxic hypercarbic respiratory failure. * Continue oxygen supplementation * Recommend BiPAP nightly and when napping during the day. Supervising Physician Co-Signing Physician Notes Patient seen and personally examined. Full assessment and plan as outlined by advanced provider above., Care and management discussed in detail and personally endorsed. 69-year-old male with known restrictive lung disease secondary to morbid obesity with associated severe pulmonary hypertension, chronic hypoxic hypercarbic respiratory failure. Underlying cardiac issues include chronic atrial fibrillation and heart failure with preserved ejection fraction right greater than left secondary to above issues. Patient presents with hypercapnic respiratory failure, obtundation. Exam consistent with volume overload abdomen lower extremity significantly edematous. Plan as outlined above. Appreciate pulmonology input History of Present Illness Reason for Consultation: Acute decompensated congestive heart failure Requesting Physician: [facility], Dr. Carlos Attending Physician: [facility], Dr. Cori Rothman MD History of Present Illness Complex 69-year-old male presented to the [facility] ER via ambulance on October 21, 2024 after being found unresponsive by family. VBG with CO2 retention. Examination with bilateral lower extremity cellulitis. Patient received IV cefepime in the ER, doxycycline added. Cardiology consultation requested due to concern for acute decompensated congestive heart failure. Complex 69-year-old male presented to the [facility] ER via ambulance on October 21, 2024 after being found unresponsive by family. VBG with CO2 retention. Examination with bilateral lower extremity cellulitis. Patient received IV cefepime in the ER, doxycycline added. Cardiology consultation requested due to congestive heart failure. Prescribed IV furosemide 40 mg twice per day. I's/O's recorded to be -475 mL overall since admission. Patient describes feeling better than on initial presentation. He feels his breathing has improved. He notes orthopnea and lower extremity peripheral ed gio. He denies chest pain, palpitations, fevers, chills, melena, hematochezia. Problem list: Morbid obesity Obesity hypoventilation syndrome, BiPAP Chronic respiratory failure with hypoxia, oxygen dependent Severe pulmonary hypertension Severe COPD Chronic heart failure with preserved ejection fraction Type II diabetes mellitus Stage III chronic kidney disease Chronic atrial fibrillation Chronic anticoagulated History of DVT Chronic venous insufficiency for which he has had multiple interventions on his LE at outside facilities in [place]. Hypertension Dyslipidemia Family History: Father with premature CAD, passing at 65. Mother with Alzheimer's. Social History: Former smoker, quitting in 2012. Former smokeless tobacco user, quitting in 2012. No significant alcohol. Allergies Allergy/AdvReac Type Severity Reaction Status Date / Time No Known Allergies Allergy Verified 09/13/24 15:45 Home Medications Medication Instructions Recorded Confirmed Type empagliflozin 10 mg tablet 10 mg PO QAM 06/10/23 10/21/24 History fluticasone fur. 100 mcg-umeclid 1 inh inhalation DAILY 06/10/23 10/21/24 History 62.5 mcg-vilant 25 mcg inhalat.powder (Trelegy Ellipta) [id number] 300 mcg-K 60 1 tab PO DAILY 06/10/23 10/21/24 History mcg-lycop 600 mcg-lutein 300 mcg tablet (Centrum Silver Men) pantoprazole 40 mg tablet,delayed 40 mg PO DAILY 06/10/23 10/21/24 History release albuterol sulfate 90 mcg/actuation 2 puff inhalation Q6H PRN 05/12/24 10/21/24 History aerosol inhaler Shortness Of Breath Or Wheezing atorvastatin 80 mg tablet 80 mg PO QAM 05/12/24 10/21/24 History fluticasone propionate 50 2 spray intranasal DAILY 05/12/24 10/21/24 History mcg/actuation nasal spray,suspension ipratropium 0.5 mg-albuterol 3 mg 3 ml inhalation Q6H Shortness Of 05/19/24 10/21/24 Rx (2.5 mg base)/3 mL nebulization Breath #0 mL soln sodium chloride 7 % for 4 ml NEB BIDR #120 mL 05/19/24 10/21/24 Rx nebulization spironolactone 25 mg tablet 12.5 mg (1/2 x 25 mg) PO DAILY #30 05/19/24 10/21/24 Rx tabs montelukast 10 mg tablet 10 mg PO QAM 07/20/24 10/21/24 History diclofenac sodium 1 % topical gel 4 g EXT BID #100 grams 07/29/24 10/21/24 Rx (Voltaren Arthritis Pain) enalapril maleate 5 mg tablet 2.5 mg (1/2 x 5 mg) PO DAILY #30 07/29/24 10/21/24 Rx tabs guaifenesin 600 mg tablet, 1,200 mg (2 x 600 mg) PO Q12 #60 07/29/24 10/21/24 Rx extended release 12 hr (Mucinex) tabs theophylline 400 mg 100 mg (1/4 x 400 mg) PO BID #60 07/29/24 10/21/24 Rx tablet,extended release 24 hr tabs potassium chloride 20 mEq 20 meq PO QAM #30 tabs 09/26/24 10/21/24 Rx tablet,extended release(part/cryst) torsemide 20 mg tablet 20 mg PO QAM #30 tabs 09/26/24 10/21/24 Rx warfarin 10 mg tablet 10 mg PO DAILY #30 tabs 09/26/24 10/21/24 Rx carvedilol 3.125 mg tablet 3.125 mg PO BID 10/22/24 10/22/24 History Patient History Medical History Pulmonary hypertension Hx of smoking Chronic congestive heart failure Hx of deep venous thrombosis Surgical History No pertinent past surgical history Family History Other Diabetes Social History Smoking Status: Never smoker Tobacco Type: Cigarettes Second Hand Exposure: Yes; Do You Dip or Chew Tobacco: No; Hx Alcohol Use: No Hx Substance Use: No Preferred Language: Romansh Communication Ability: Effective Senior Treasury 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 Tachypneic. HENT: Normocephalic. Atraumatic. Eyes: PER. Conjunctiva pink, sclera clear. Neck: No overt JVD. Heart: Irregularly irregular at 70 bpm. No murmur. No rub. Lungs: Diminished. Decreased. Clear to auscultation anteriorly Abdomen: +BS. Soft. Nontender. No masses or organomegaly. Barron catheter in place Extremities: 2-3+ bilateral lower extremity edema. Mild erythema. Limited neurological examination is without focal deficits. Pulses: radial=2/4, posterior tibial=0/4. Results & Data Vital Signs (Past 12 Hours) Vital Signs Temp Pulse Pulse Resp BP BP Pulse Ox 10/22/24 07:37 36.8 C 68 22 125/73 97 10/22/24 07:21 71 18 99 10/22/24 05:31 36.6 C 67 20 104/78 94 10/22/24 05:03 70 20 91 10/22/24 04:59 70 20 91 10/22/24 04:36 10/22/24 04:21 10/22/24 04:04 10/22/24 04:04 36.6 C 67 20 104/78 94 10/22/24 03:47 60 24 94 10/22/24 02:43 62 24 150/65 H 91 10/22/24 02:11 68 95 10/22/24 01:31 55 L 10/22/24 00:18 69 19 138/89 93 10/21/24 23:11 69 114/84 94 10/21/24 22:54 54 L 94 10/21/24 22:54 54 L 93 Pulse Ox O2 Del Method O2 Del Method O2 Flow Rate FiO2 10/22/24 07:37 High Flow Nasal Cannula 14 10/22/24 07:21 High Flow Nasal Cannula 30 50 10/22/24 05:31 BiPAP 10/22/24 05:03 High Flow Nasal Cannula 30 50 10/22/24 04:59 High Flow Nasal Cannula 30 50 10/22/24 04:36 BiPAP 10/22/24 04:21 BiPAP 10/22/24 04:04 90 High Flow Nasal Cannula 10/22/24 04:04 BiPAP 10/22/24 03:47 28 10/22/24 02:43 CPAP 10/22/24 02:11 CPAP 10/22/24 01:31 10/22/24 00:18 CPAP 10/21/24 23:11 CPAP 10/21/24 22:54 CPAP 10/21/24 22:54 CPAP Laboratory Results Cardiac Enzymes 10/21/24 10/21/24 10/22/24 Range/Units 21:40 23:52 05:44 AST 35 (13-39) U/L Troponin I High Sens 29.1 H 27.5 H 28.0 H (0-20) pg/ml B-Natriuretic Peptide 439 H (0-100) pg/ml Coagulation 10/21/24 10/22/24 Range/Units 21:40 05:44 PT 29.1 H 33.2 H (9.0-12.0) Seconds APTT 41 H (21-31) Seconds B-Natriuretic Peptide 439 H (0-100) pg/ml CBC 10/21/24 10/22/24 Range/Units 21:40 05:44 WBC 8.30 7.80 (4.8-10.8) K/ul RBC 3.58 L 3.22 L (4.70-6.10) M/uL Hgb 9.2 L 8.3 L (14.0-18.0) g/dl Hct 32.2 L 28.5 L (42.0-52.0) % Plt Count 341 281 (130-400) K/uL Neut # (Auto) 7.28 H 5.66 (1.40-6.50) K/uL Lymph # (Auto) 0.43 L 0.97 L (1.20-3.40) K/uL [place] # (Auto) 0.50 0.99 H (0.11-0.59) K/uL Eos # (Auto) 0.01 0.09 (0.00-0.50) K/uL Baso # (Auto) 0.02 0.04 (0.00-0.20) K/uL Comprehensive Metabolic Panel 10/21/24 10/21/24 10/22/24 Range/Units 21:40 21:40 05:44 Sodium 140 142 (136-145) mmol/L Potassium 5.1 4.5 (3.5-5.1) mmol/L Chloride 93 L 98 (98-107) mmol/L Carbon Dioxide 41 H* 40 H (21-32) mmol/L BUN 47 H 43 H (6-23) mg/dl Creatinine 1.05 0.87 (0.6-1.4) mg/dl Glucose 204 H 110 H (70-99(Fasting)) mg/dl Calcium 9.1 8.7 (8.6-10.3) mg/dl Direct Bilirubin TNP 0.0 AST 35 (13-39) U/L ALT 28 (7-52) U/L Alkaline Phosphatase 106 H (34-104) U/L Total Protein 7.8 (6.0-8.3) gm/dl Albumin 4.4 (3.4-5.0) gm/dl Intake and Output 10/21/24 10/22/24 10/22/24 22:59 06:59 14:59 Intake Total 100 / 600 500 / 600 Output Total 1075 / 1075 Balance 100 / -475 -575 / -475 Intake: IV 100 / 600 500 / 600 Acetaminophen 1,000 mg In 100 100 / 100 ml @ 400 mls/hr IV NOW STA Rx#: [id number] Sodium Chloride 0.9% 500 ml @ 500 / 500 999 mls/hr IV .Q31M ONE Rx#: [id number] Output: Urine 325 / 325 Urine Amount (Catheter) 750 / 750 Barron/Indwelling 750 / 750 Other: Weight 154.9 kg 151.16 kg Weight Measurement Method Built in [facility] Built in [facility]
--- NOTE | 2024-10-22 11:04 | Electrocardiogram Report ---
Test Reason : Blood Pressure : */* mmHG Vent. Rate : 67 BPM Atrial Rate : * BPM P-R Int : * ms QRS Dur : 96 ms QT Int : 374 ms P-R-T Axes : * 38 52 degrees QTcB Int : 395 ms Atrial fibrillation Abnormal ECG When compared with ECG of 13-Sep-2024 13:41, No significant change was found Confirmed by Shay Jacob ([id number]) on 10/22/2024 11:04:16 AM Referred By: REFERRED SELF Confirmed By: Shay Jacob
[2024-10-22] MEDS: POTASSIUM CHLORIDE CRTAB 20 MEQ TABCR PO SCH (11:39)
[2024-10-22] MEDS: DICLOFENAC SOD 1% GEL 100 GM TUBE EXT SCH (11:40)
--- NOTE | 2024-10-22 13:20 | Communication Note ---
Date of Service: October 22, 2024 Patient was seen and examined at bedside. 69 M w/ PMH of type 2 diabetes, chronic respiratory failure with hypoxia and hypercapnia on 3 L oxygen all the time, OHS, BiPAP dependent, HLD, COPD, atrial fibrillation, pHTN, chronic heart failure preserved ejection fraction, venous insufficiency, HTN, morbid obesity, CKD stage III, DVT, atherosclerosis of [place] coronary artery without angina who lives at home with his son was brought in because of altered mental status and found to have CO2 retention and also lower extremity cellulitis. By time the patient was brought to the hospital his mental status improved. BLE noted to be more erythematous than usual at presentation. 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 He is being managed for the following: Acute on chronic heart failure with hypoxia and hypercapnia Possible COPD exacerbation Metabolic encephalopathy: Secondary to CO2 retention iso acute on chronic respiratory failure. Obesity hypoventilation syndrome, ho Patient noted to be altered prior to presentation, reported cough with yellow sputum for 3 to 4 days SUSTAINABILITY MANAGER. Admitting VBG with pCO2 of 101. Admitting BNP 439. procalcitonin negative. Admitting CT head with no acute finding. Admitting CXR with vascular congestion and possible small effusion. Admitting CT chest with minimal bilateral pleural effusion and bilateral lower lobes atelectasis. BiPAP prn and HS, mentation has improved, follow-up VBG with pCO2 improvement back to his baseline level. Scheduled and as needed nebs. Continue with doxycycline 10/22. Pulmonology on board, appreciate recommendation. Acute on chronic heart failure with preserved ejection fraction Admitting chest imaging with pulmonary vascular congestion and 2-3+ BLE pitting edema at presentation. Cardiology on board, being diuresed. Monitor and replete electrolytes as appropriate. Fluid restriction of 1500 mL. BLE cellulitis: Patient with erythematous BLE at presentation. Initial lactate 2.2, resolved on repeat. Patient started on cefepime 10/22, continue. Chronic atrial fibrillation: per cardiology, DC Coreg given history of significant bradycardia with it. Continue with Theophylline and warfarin. Demand ischemia: Troponin elevated in high 20s, flat trended, patient with no chest pain. Likely elevation in the setting of acute respiratory distress. Continue telemetry monitoring. EKG without acute ST or T changes. Other chronic medical conditions: Continue with/resume home meds as when able. Obesity hypoventilation syndrome: BiPAP nightly and when napping. Diabetes: Sliding scale insulin while in hospital. CKD stage III: Stable. Monitor labs. History of DVT: Continue with Coumadin, daily PT/INR. Morbid obesity: Encouraged weight loss, daily exercise regimen, healthy diet. DVT prophylaxis: Patient on Coumadin Disposition: Continue with telemetry monitoring Full code For detailed information on the patient, refer to today's H&P note.
[2024-10-22] MEDS: WARFARIN SOD 10 MG TAB PO SCH (16:19)
[2024-10-22] MEDS: POLYETHYLENE (MIRALAX) 17 GM PACK PO PRN (18:29)
[2024-10-22] MEDS: FORMOTEROL 20 MCG/2 ML VIAL INH SCH (19:46)
[2024-10-22] MEDS: BUDESONIDE 0.5 MG/2 ML VIAL (PULMICORT) NEB SCH (19:46)
[2024-10-23] MEDS: ACETAMINOPHEN 325 MG TAB PO PRN (02:31)
[2024-10-23 06:35] LABS: Hematocrit (blood only) 29.7 % (42.0-52.0); Hemoglobin 8.6 g/dl (14.0-18.0); Mean Corpuscular Hemoglobin 25.4 pg (25.0-34.0); Mean Corpuscular Volume 87.6 fL (80.0-100.0); Platelet Count 287 K/uL (130-400); RDW Coefficient of Variation 16.9 % (11.5-14.5); RDW Standard Deviation 54.2 fL (36.4-46.3); Red Blood Count 3.39 M/uL (4.70-6.10); White Blood Count 7.07 K/ul (4.8-10.8)
[2024-10-23 06:54] LABS: BUN Creatinine Ratio 46.8 (10-20); Calcium 8.9 mg/dl (8.6-10.3); Creatinine Clr Calc Pharmacy 138.8 ml/min; Magnesium 2.2 mg/dl (1.7-2.4); Phosphorus 2.8 mg/dl (2.5-4.9); Potassium 4.7 mmol/L (3.5-5.1)
[2024-10-23 06:58] LABS: INR 3.4 (0.9-1.1); Prothrombin Time 33.2 Seconds (9.0-12.0)
[2024-10-23] MEDS: UMECLIDINIUM BROMIDE 62.5MCG/BLISTER 7 PUFFS/INHALER INH SCH (07:56)
[2024-10-23] MEDS: SPIRONOLACTONE 25 MG TAB PO SCH (08:01)
--- NOTE | 2024-10-23 08:47 | Pulmonology Progress Note ---
Date of Service October 23, 2024 Assessment & Plan (1) Heart failure, diastolic, with acute decompensation: (2) Acute on chronic respiratory failure with hypoxia and hypercapnia: (3) Abnormal CT scan, chest: (4) Asthma-COPD overlap syndrome: (5) CRISTOFER (obstructive sleep apnea): (6) Obesity hypoventilation syndrome: Plan CTA chest 10/22/2024 personally reviewed: Minimal centrilobular emphysema appreciated bilaterally Dependent atelectasis bilateral lower lobes, right greater than left Small bilateral pleural effusion Cardiomegaly Station 4 subcarinal lymphadenopathy 2D echo 07/21/2024: EF 60-65%, mild concentric LVH, RV not well-visualized but mildly dilated, RV systolic function normal, PASP 57 mmHg VBG 10/21/2024: 7.24/101/33 -- Acute on chronic hypercapnic hypoxic respiratory failure On 2 and half - 3 L oxygen at home Multifactorial For hypoxia HFpEF and possibly COPD exacerbation For hypercapnia likely underlying CRISTOFER/OHS with noncompliance BNP 439 Procalcitonin 0.13 Respiratory BioFire was negative for everything on 09/13/2024 -- Asthma-COPD overlap syndrome Lifetime non-smoker Does have significant exposure to smoke and fumes at work Even though the patient is a lifetime non-smoker, I do see minimal emphysema on the CT chest Alpha-1 level within normal limit 10/23/2024 On Trelegy 100 at home On montelukast Absolute eosinophil count 360 on 07/28/2024 --CRISTOFER/OHS On BiPAP at home --Pulmonary hypertension Likely combination of type II and type III -- History of DVT On warfarin Plan: In/out: -2.3 L, urine output 3271 Continue with diuretics to keep the patient negative balance Continue with BiPAP nightly and as needed shortness of breath and aim tidal volume of 420 with backup rate of 15 Try to avoid over oxygenation, goal O2 saturation 90-92% Nebulized bronchodilators while in the hospital Case discussed with RN at bedside Please note the above document was generated using voice recognition software. It may contain grammatical, syntax or spelling errors.Any formal questions or concerns about the content, text or information contained within the body of this dictation should be directly addressed to the provider for clarification. Admission and Anticipated Discharge Date Admission Date: October 22, 2024 Subjective Patient seen and examined at bedside. No acute distress, notable symptoms overnight He was saturating 93 to 94% on 4 L nasal cannula, I went down to 3 L He stated that he is feeling better compared to when he came to the hospital He has been diuresing well Denied any abdominal pain No nausea vomiting Not bringing up any phlegm Fair appetite Review of Systems 2 Review of Systems: All systems reviewed & are unremarkable except as noted in Subjective Physical Exam 2 Physical Exam: Constitutional: No acute distress HEENT: EOMI, PERRLA Respiratory system: Decreased air entry bilaterally, no wheeze, no rhonchi, positive crackles bilateral lower lobe CVS: S1-S2 positive, no murmurs or gallops, accentuated P2 Abdomen: Soft, nontender, nondistended, positive bowel sounds x4, obese Extremities: +2 pulses bilaterally radialis/ dorsalis pedis, no cyanosis, +2 pitting edema bilateral lower extremity, positive rubor, positive calor, no dolor Neuro: Awake alert oriented x3 Psych: Normal mood and affect G/U: Positive Barron Skin: no rashes, warm and dry Lymphatic: no cervical or axillary lymphadenopathy Results & Data Results & Data Vital Signs (Past 12 Hours) Vital Signs Temp Pulse Pulse Resp BP Pulse Ox O2 Del Method 10/23/24 08:32 36.6 C 80 20 125/56 L 94 Nasal Cannula 10/23/24 07:34 75 10/23/24 07:05 71 19 98 BiPAP 10/23/24 04:00 36.8 C 74 20 148/90 H 93 BiPAP 10/22/24 23:39 69 24 95 10/22/24 23:32 66 10/22/24 23:02 36.6 C 68 21 135/77 95 Nasal Cannula O2 Flow Rate FiO2 10/23/24 08:32 3 10/23/24 07:34 10/23/24 07:05 35 10/23/24 04:00 10/22/24 23:39 35 10/22/24 23:32 10/22/24 23:02 Laboratory Results 10/23/24 05:58 10/23/24 05:58 PG Care Time/CCT Total # of Minutes Spent Total Time Spent with Patient: Total time spent is greater than 50% in coordination of care (as documented) at patient's floor/unit and/or counseling patient: Coding Level of Care Code 41694 SUB INP/OBS CARE 350MIN Diagnoses Heart failure, diastolic, with acute decompensation I50.33 Acute on chronic respiratory failure with hypoxia and hypercapnia J96.21; J96.[address] scan, chest R93.89 Asthma-COPD overlap syndrome J44.89 CRISTOFER (obstructive sleep apnea) G47.33 Obesity hypoventilation syndrome E66.2
--- NOTE | 2024-10-23 11:01 | Cardiology Progress Note ---
Date of Service October 23, 2024 Assessment & Plan (1) Bilateral cellulitis of lower leg: (2) Acute respiratory failure with hypoxia and hypercarbia: (3) Heart failure, diastolic, with acute decompensation: (4) Chronic a-fib: (5) Obesity hypoventilation syndrome: Plan Bilateral lower extremity cellulitis. As per Hospitalist service. Acute decompensated heart failure with preserved ejection fraction * Diuresing well on IV furosemide at 60 mg twice a day - continue. * Spironolactone increased to 25 mg/day * Continue potassium chloride supplementation for now * Continue Empagliflozin (Jardiance) * Fluid restrict to 1500 mL * Sodium restrict to less than 1500 mg/day Chronic atrial fibrillation * Carvedilol discontinued in June 2024 due to significant bradycardia, at which time Theophylline was prescribed with resultant significant improvement * Carvedilol resumed by PCP on October 06, 2024 * Carvedilol discontinued once again * Avoid AV dave blockers * Continue chronic anticoagulation Morbid obesity, obesity hypoventilation syndrome, severe pulmonary hypertension, chronic hypoxic hypercarbic respiratory failure. * Continue oxygen supplementation * Recommend BiPAP nightly and when napping during the day. * Pulmonary Medicine on board. Admission and Anticipated Discharge Date Admission Date: October 22, 2024 Supervising Physician Co-Signing Physician Notes Patient was seen and personally examined. Care and management discussed as above. Reviewed with advanced provider and personally endorsed. 69-year-old male presented with hypercapnic respiratory failure reflecting underlying pickwickian phenomena. Exam and chart reflects at least 30 pound weight gain with significant volume overload. Will continue diuresis and recommendations as above Patient has multiple questions regarding prognosis. Discussed patient has improved since admission but underlying pathology remains present. Question ca ndidate for tracheostomy Subjective Patient seen and examined. Chart, medications, telemetry reviewed. Feeling a little better today. No chest pain/discomfort. No palpitations. I's/O's -475 mL, -2371 mL (-2846 mL overall) Telemetry: Rate controlled atrial fibrillation, without significant bradycardia or pauses Review of Systems Review of Systems: Complete Review of Systems is as stated above, negative, or noncontributory Physical Exam Physical Exam: General: Less lethargic/obtunded HENT: Normocephalic. Atraumatic. Eyes: PER. Conjunctiva pink, sclera clear. Neck: No overt JVD. Heart: Irregularly irregular at 76 bpm. No murmur. No rub. Lungs: Diminished. Decreased. Clear to auscultation anteriorly Abdomen: +BS. Soft. Nontender. No masses or organomegaly. Barron catheter in place Extremities: 2-3+ bilateral lower extremity edema. Mild erythema. Limited neurological examination is without focal deficits. Pulses: radial=2/4, posterior tibial=0/4. Results & Data Vital Signs (Past 12 Hours) Vital Signs Temp Pulse Pulse Resp BP Pulse Ox O2 Del Method 10/23/24 10:57 78 20 96 Nasal Cannula 10/23/24 09:06 74 22 95 10/23/24 08:32 36.6 C 80 20 125/56 L 94 Nasal Cannula 10/23/24 07:34 75 10/23/24 07:05 71 19 98 BiPAP 10/23/24 04:00 36.8 C 74 20 148/90 H 93 BiPAP 10/22/24 23:39 69 24 95 10/22/24 23:32 66 10/22/24 23:02 36.6 C 68 21 135/77 95 Nasal Cannula O2 Flow Rate FiO2 10/23/24 10:57 3 10/23/24 09:06 35 10/23/24 08:32 3 10/23/24 07:34 10/23/24 07:05 35 10/23/24 04:00 10/22/24 23:39 35 10/22/24 23:32 10/22/24 23:02 Laboratory Results Coagulation 10/23/24 Range/Units 05:58 PT 33.2 H (9.0-12.0) Seconds CBC 10/23/24 Range/Units 05:58 WBC 7.07 (4.8-10.8) K/ul RBC 3.39 L (4.70-6.10) M/uL Hgb 8.6 L (14.0-18.0) g/dl Hct 29.7 L (42.0-52.0) % Plt Count 287 (130-400) K/uL Comprehensive Metabolic Panel 10/23/24 Range/Units 05:58 Sodium 141 (136-145) mmol/L Potassium 4.7 (3.5-5.1) mmol/L Chloride 96 L (98-107) mmol/L Carbon Dioxide 40 H (21-32) mmol/L BUN 36 H (6-23) mg/dl Creatinine 0.77 (0.6-1.4) mg/dl Glucose 91 (70-99(Fasting)) mg/dl Calcium 8.9 (8.6-10.3) mg/dl Intake and Output 10/22/24 10/23/24 10/23/24 22:59 06:59 14:59 Intake Total 100 / 880 200 / 880 Output Total 1500 / 3251 751 / 3251 Balance -1400 / -2371 -551 / -2371 Intake: IV 100 / 300 100 / 300 Doxycycline Hyclate 100 mg In 100 / 300 100 / 300 Dextrose 5% Mini-B 100 ml @ 50 mls/hr IV Q12H [facility] Rx#:[id number] Oral 100 / 580 Output: Urine Amount (Catheter) 1500 / 3250 750 / 3250 Barron/Indwelling 1500 / 3250 750 / 3250 # Bowel Movements Other: Weight 150.8 kg Weight Measurement Method Built in [facility]
[2024-10-23] MEDS: DOCUSATE SODIUM 100 MG CAP PO SCH (12:15)
--- NOTE | 2024-10-23 14:23 | Pharmacy Report ---
Pharmacy Glycemic Sign Off Nt - Date of Service October 23, 2024 - Assessment & Plan ASSESSMENT: * Pharmacy was consulted by Dr Carlos on 10/22 for glycemic control and to write orders per [facility] inpatient glycemic control protocol. * Major changes made by pharmacy to antidiabetic regimen include: * added novolog scale * Patient has received <10 units over last 24 hours * Please see recommendations for outpatient antidiabetic regimen below. PLAN FOR INPATIENT GLYCEMIC CONTROL: No changes needed to current regimen. * No basal insulin warranted currently * Continue NovoLog per scale ACHS/Q6hrs while NPO * Goal range = 110 - 140 mg/dl * CF = 20 mg/dl/unit * CR = 1 unit for ever 15 g CHO consumed * Pharmacy is signing off of glycemic consult and will no longer be making adjustments to inpatient regimen. Please feel free to re-consult if needed. Thank you.
--- NOTE | 2024-10-23 14:47 | Ultrasound Report ---
ABDOMINAL ULTRASOUND, RIGHT UPPER QUADRANT HISTORY: Acute right upper quadrant abdominal pain ruq pain/tender. COMPARISON: None. FINDINGS: Limited exam secondary to patient body habitus. Pancreas: The pancreas is obscured by bowel gas. Liver: Unremarkable. Gallbladder: Contracted. No gallstones. CBD: 2 mm. Right kidney: No hydronephrosis. IMPRESSION: 1. Limited exam secondary to patient body habitus. 2. Contracted gallbladder. ACT 112: Negative or not required by law. Electronically signed by: Josiah Sanchez M.D. 10/23/2024 2:46 PM
--- NOTE | 2024-10-23 14:47 | Ultrasound Report ---
US venous doppler LE BI CLINICAL HISTORY: le pain, ro dvt TECHNIQUE: Bilateral lower extremity real-time compression venous ultrasound with Color Doppler imagi ng. Utilizing real-time ultrasonic imaging multiple real time high-resolution ultrasonic images with compression and noncompression maneuvers of the deep venous system in addition to color doppler imagi ng were performed from the common femoral vein through the proximal calf veins. COMPARISON: None available at the time of this dictation. FINDINGS/IMPRESSION: Exam is limited by patient body habitus. No definite DVT is seen. The calf veins are not well assesse d. ACT 112: Negative or not required by law. Electronically signed by: Dex Freeman M.D. 10/23/2024 2:45 PM
--- NOTE | 2024-10-23 16:49 | Hospitalist Progress Note ---
Date of Service October 23, 2024 Assessment & Plan (1) Altered mental status: Plan 69 M w/ PMH of type 2 diabetes, chronic respiratory failure with hypoxia and hypercapnia on 3 L oxygen all the time, OHS, BiPAP dependent, HLD, COPD, atrial fibrillation, pHTN, chronic heart failure preserved ejection fraction, venous insufficiency, HTN, morbid obesity, CKD stage III, DVT, atherosclerosis of [place] coronary artery without angina who lives at home with his son was brought in because of altered mental status and found to have CO2 retention and also lower extremity cellulitis. By time the patient was brought to the hospital his mental status improved. BLE noted to be more erythematous than usual at presentation. 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 He is being managed for the following: Acute on chronic heart failure with hypoxia and hypercapnia Possible COPD exacerbation Metabolic encephalopathy: Secondary to CO2 retention iso acute on chronic respiratory failure. 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 Admitting VBG with pCO2 of 101. Admitting BNP 439. procalcitonin negative. Admitting CT head with no acute finding. Admitting CXR with vascular congestion and possible small effusion. Admitting CT chest with minimal bilateral pleural effusion and bilateral lower lobes atelectasis. BiPAP prn and HS, mentation has improved. Scheduled and as needed nebs. Continue with doxycycline 10/22. Pulmonology on board, appreciate recommendation. Acute on chronic heart failure with preserved ejection fraction Admitting chest imaging with pulmonary vascular congestion and 2-3+ BLE pitting edema at presentation. Cardiology on board, being diuresed. Monitor and replete electrolytes as appropriate. Fluid restriction of 1500 mL. BLE cellulitis: Patient with erythematous BLE at presentation. Initial lactate 2.2, resolved on repeat. Patient started on cefepime 10/22, continue. Chronic atrial fibrillation: per cardiology, DC Coreg given history of sign ificant bradycardia with it. Continue with Theophylline and warfarin. Warfarin on hold today due to supratherapeutic INR, follow PT/INR tomorrow. Demand ischemia: Troponin elevated in high 20s, flat trended, patient with no chest pain. Likely elevation in the setting of acute respiratory distress. Continue telemetry monitoring. EKG without acute ST or T changes. Other chronic medical conditions: Continue with/resume home meds as when able. Obesity hypoventilation syndrome: BiPAP nightly and when napping. Diabetes: Sliding scale insulin while in hospital. CKD stage III: Stable. Monitor labs. History of DVT: Continue with Coumadin, daily PT/INR. Morbid obesity: Encouraged weight loss, daily exercise regimen, healthy diet. DVT prophylaxis: Supratherapeutic INR Disposition: Continue with telemetry monitoring Full code Admission and Anticipated Discharge Date Admission Date: October 22, 2024 Subjective Patient was seen and examined at bedside. Patient was lying in bed, on 3 L oxygen via nasal cannula, NAD, resting comfortably. Patient reported lower extremity pain, was erythematous and warm to touch. BLE venous Doppler negative for DVT. Patient denied any nausea/vomiting/abdominal pain. But right upper quadrant was tender on exam, gallbladder ultrasound with no evidence of cholecystitis. Patient reports cough about the same with greenish-yellow sputum. Denies sore throat. Reports stable bowel and bladder habits. Physical Exam Physical Exam: General- Not in distress Head- atraumatic Eyes- PERRL. ENT- oropharynx clear Neck- supple, no JVD. Lungs- Decreased breath sounds bilaterally, bibasal crackles. Heart- regular rhythm; no murmur, no gallop. Abdomen- normal bowel sounds, soft, nontender, no distension Extremities- b/l lower extremity gross edema with erythema seen, Warmth, tender. Neuro- alert, oriented x 3; PERRL, ; no facial palsy; no dysarthria; Results & Data Results & Data Vital Signs (Past 12 Hours) Vital Signs Temp Pulse Pulse Resp BP Pulse Ox O2 Del Method 10/23/24 15:49 37.6 C H 77 20 120/68 95 Oxymask 10/23/24 15:26 62 20 95 10/23/24 15:23 66 18 87 L Nasal Cannula 10/23/24 15:00 75 10/23/24 13:23 Nasal Cannula, BiPAP 10/23/24 11:07 37.4 C 65 19 115/66 97 Nasal Cannula 10/23/24 10:57 78 20 96 Nasal Cannula 10/23/24 09:06 74 22 95 10/23/24 08:32 36.6 C 80 20 125/56 L 94 Nasal Cannula 10/23/24 07:34 75 10/23/24 07:05 71 19 98 BiPAP O2 Flow Rate FiO2 12/27/24 15:49 3 10/23/24 15:26 35 10/23/24 15:23 3 10/23/24 15:00 10/23/24 13:23 4 10/23/24 11:07 3 10/23/24 10:57 3 10/23/24 09:06 35 10/23/24 08:32 3 10/23/24 07:34 10/23/24 07:05 35 (1) Altered mental status Altered mental status type: unspecified Qualified Code(s): R41.82 - Altered mental status, unspecified
[2024-10-23] MEDS: DOXYCYCLINE HYCLATE 100 MG CAP PO SCH (20:35)
[2024-10-24 07:52] LABS: Hematocrit (blood only) 30.2 % (42.0-52.0); Hemoglobin 8.8 g/dl (14.0-18.0); Mean Corpuscular Hemoglobin 25.5 pg (25.0-34.0); Mean Corpuscular Hgb Conc 29.1 g/dL (32.0-36.0); Mean Corpuscular Volume 87.5 fL (80.0-100.0); Mean Platelet Volume 9.3 fL (9.4-12.4); Platelet Count 293 K/uL (130-400); RDW Coefficient of Variation 16.8 % (11.5-14.5); RDW Standard Deviation 53.2 fL (36.4-46.3); Red Blood Count 3.45 M/uL (4.70-6.10); White Blood Count 8.03 K/ul (4.8-10.8)
[2024-10-24 08:00] LABS: BUN Creatinine Ratio 40.5 (10-20); Calcium 9.3 mg/dl (8.6-10.3); Creatinine Clr Calc Pharmacy 134.5 ml/min; Magnesium 2.1 mg/dl (1.7-2.4); Phosphorus 2.7 mg/dl (2.5-4.9); Potassium 4.6 mmol/L (3.5-5.1)
[2024-10-24 08:08] LABS: INR 2.1 (0.9-1.1); Prothrombin Time 21.6 Seconds (9.0-12.0)
--- NOTE | 2024-10-24 08:21 | Pulmonology Progress Note ---
Date of Service October 24, 2024 Assessment & Plan (1) Heart failure, diastolic, with acute decompensation: (2) Acute on chronic respiratory failure with hypoxia and hypercapnia: (3) Abnormal CT scan, chest: (4) Asthma-COPD overlap syndrome: (5) CRISTOFER (obstructive sleep apnea): (6) Obesity hypoventilation syndrome: Plan CTA chest 10/22/2024 personally reviewed: Minimal centrilobular emphysema appreciated bilaterally Dependent atelectasis bilateral lower lobes, right greater than left Small bilateral pleural effusion Cardiomegaly Station 4 subcarinal lymphadenopathy 2D echo 07/21/2024: EF 60-65%, mild concentric LVH, RV not well-visualized but mildly dilated, RV systolic function normal, PASP 57 mmHg VBG 10/21/2024: 7.24/101/33 -- Acute on chronic hypercapnic hypoxic respiratory failure On 2 and half - 3 L oxygen at home Multifactorial For hypoxia HFpEF and possibly COPD exacerbation For hypercapnia likely underlying CIRSTOFER/OHS with noncompliance BNP 439 Procalcitonin 0.13 Respiratory BioFire was negative for everything on 09/13/2024 -- Asthma-COPD overlap syndrome Lifetime non-smoker Does have significant exposure to smoke and fumes at work Even though the patient is a lifetime non-smoker, I do see minimal emphysema on the CT chest Alpha-1 level within normal limit 10/23/2024 On Trelegy 100 at home On montelukast and Theophylline Absolute eosinophil count 360 on 07/28/2024 --CRISTOFER/OHS On BiPAP at home --Pulmonary hypertension Likely combination of type II and type III -- History of DVT On warfarin -- Metabolic alkalosis Likely compensation to chronic respiratory acidosis as well as diuretic use Plan: In/out: -2.6 L, urine output 4050, -5 L since coming to the hospital Continue with diuretics to keep the patient negative balance Will give a dose of acetazolamide 250 mg. Hold the evening dose of Lasix Continue with BiPAP nightly and as needed shortness of breath. Recommend BiPAP settings to get a tidal volume of around 400 Try to avoid over oxygenation, goal O2 saturation 90-92% Nebulized bronchodilators while in the hospital DC theophylline and follow-up theophylline level Patient seems to be depressed, would recommend adjustment to his current medication and addition of antidepressants if need be Case discussed with RN at bedside as well as primary team Please note the above document was generated using voice recognition software. It may contain grammatical, syntax or spelling errors.Any formal questions or concerns about the content, text or information contained within the body of this dictation should be directly addressed to the provider for clarification. Admission and Anticipated Discharge Date Admission Date: October 22, 2024 Subjective Patient seen and examined at bedside. No acute distress, no adverse events overnight Patient still complains of shortness of breath. Denies any chest pain, no chest tightness, no wheezing Has been compliant with his BiPAP Appetite is fair. No nausea or vomiting. Diuresing well Patient seems to be depressed, he is saying that he has a feeling that his time is calm. He was on the phone with his son talking about end-of-life. Review of Systems 2 Review of Systems: All systems reviewed & are unremarkable except as noted in Subjective Physical Exam 2 Physical Exam: Constitutional: No acute distress HEENT: EOMI, PERRLA Respiratory system: Decreased air entry bilaterally, no wheeze, no rhonchi, positive crackles bilateral lower lobe CVS: S1-S2 positive, no murmurs or gallops, accentuated P2 Abdomen: Soft, nontender, nondistended, positive bowel sounds x4, obese Extremities: +2 pulses bilaterally radialis/ dorsalis pedis, no cyanosis, +2 pitting edema bilateral lower extremity, positive rubor, positive calor, no dolor Neuro: Awake alert oriented x3 Psych: Normal mood and affect G/U: Positive Barron Skin: no rashes, warm and dry Lymphatic: no cervical or axillary lymphadenopathy Results & Data Results & Data Vital Signs (Past 12 Hours) Vital Signs Temp Pulse Pulse Resp BP Pulse Ox O2 Del Method 10/24/24 07:27 37.2 C 78 20 157/74 H 10/24/24 07:26 51 L 10/24/24 07:09 78 22 95 BiPAP 10/24/24 04:01 37.0 C 76 18 141/65 H 96 BiPAP 10/24/24 03:13 64 30 H 95 10/23/24 23:37 79 10/23/24 23:05 37.5 C 78 20 121/58 L 98 BiPAP 10/23/24 22:58 68 21 94 FiO2 10/24/24 07:27 10/24/24 07:26 10/24/24 07:09 35 10/24/24 04:01 10/24/24 03:13 35 10/23/24 23:37 10/23/24 23:05 10/23/24 22:58 35 Laboratory Results 10/24/24 07:02 10/24/24 07:02 PG Care Time/CCT Total # of Minutes Spent Total Time Spent with Patient: Total time spent is greater than 50% in coordination of care (as documented) at patient's floor/unit and/or counseling patient: Coding Level of Care Code 56078 SUB INP/OBS CARE 3/50MIN Diagnoses Heart failure, diastolic, with acute decompensation I50.33 Acute on chronic respiratory failure with hypoxia and hypercapnia J96.21; J96.[address] scan, chest R93.89 Asthma-COPD overlap syndrome J44.89 CRISTOFER (obstructive sleep apnea) G47.33 Obesity hypoventilation syndrome E66.2
--- NOTE | 2024-10-24 11:32 | Cardiology Progress Note ---
Date of Service October 24, 2024 Assessment & Plan (1) Bilateral cellulitis of lower leg: (2) Acute respiratory failure with hypoxia and hypercarbia: (3) Heart failure, diastolic, with acute decompensation: (4) Chronic a-fib: (5) Obesity hypoventilation syndrome: Plan 10/23/24: Bilateral lower extremity cellulitis. As per Hospitalist service. Acute decompensated heart failure with preserved ejection fraction * Diuresing well on IV furosemide at 60 mg twice a day - continue. * Spironolactone increased to 25 mg/day * Continue potassium chloride supplementation for now * Continue Empagliflozin (Jardiance) * Fluid restrict to 1500 mL * Sodium restrict to less than 1500 mg/day Chronic atrial fibrillation * Carvedilol discontinued in June 2024 due to significant bradycardia, at which time Theophylline was prescribed with resultant significant improvement * Carvedilol resumed by PCP on October 06, 2024 * Carvedilol discontinued once again * Avoid AV dave blockers * Continue chronic anticoagulation Morbid obesity, obesity hypoventilation syndrome, severe pulmonary hypertension, chronic hypoxic hypercarbic respiratory failure. * Continue oxygen supplementation * Recommend BiPAP nightly and when napping during the day. * Pulmonary Medicine on board. 10/24/24: At least 4 L output over the last 24 hours. Negative 5.3 L since admission. Weight down about 5 kg since admission. Continue antibiotics for cellulitis per hospitalist. Continue IV furosemide 60 mg BID and spironolactone 25 mg daily Stable renal function/electrolytes. Continue potassium supplements. Continue Jardiance. Fluid restriction of 1500 ml daily. Chronic atrial fibrillation. Rates controlled. Avoid AV dave blocking therapies. Previously on beta jojo, causing bradycardia. Carvedilol discontinued. Continue anticoagulation. Hypoventilatory syndrome, severe pulm hypertension, chronic hypoxic hypercarbic respiratory failure -BIPAP -continue diuresis -appreciate pulm recommendations Case discussed with Dr. Hillman I spent a total of 35 minutes on the date of service in preparation, delivery, and documentation of the care provided to this patient, excluding any time spent in the performance of separately billed services. Bettina Brizuela PA-C Department of Cardiology, [facility] This chart was completed in part utilizing Speech Voice Recognition Software. Grammatical errors, random word insertions, pronoun errors, and incomplete sentences are an occasional consequence of this system due to software limitations, ambient noise, and hardware issues. Any formal questions or concerns about the content, text, or information contained within the body of this dictation should be directly addressed to the provider for clarification. Admission and Anticipated Discharge Date Admission Date: October 22, 2024 Supervising Physician Co-Signing Physician Notes I have reviewed the advanced practitioner's documentation on the date of service referenced in note, and I agree with, and take responsibility for the plan of care. I spent a total of [15] minutes coordinating, documenting, and providing care for this patient excluding time spent in the performance of separately billed services or time spent by another provider. 69-year-old male presented with hypercapnic respiratory failure reflecting underlying pickwickian phenomena. Exam and chart reflects at least 30 pound weight gain with significant volume overload. Has been responding to IV Lasix continue with diuresis Subjective Patient resting in bed. Denies acute complaints. BIPAP in place. No chest pain. SOB improving. Ongoing LE edema noted. Good urine output overnight and this morning. Tolerating IV diuretics. Review of Systems Review of Systems: Complete Review of Systems is as stated above, negative, or noncontributory Physical Exam Constitutional: + morbidly obese; no acute distress Neck: + thick neck Respiratory: no labored breathing Auscultation: + diminished lung sounds; no crackles and no rales Cardiovascular: Rate/Rhythm: + irregularly irregular Extremities: + edema (2+ edema b/l with erythema ) Gastrointestinal (Abdomen): normal bowel sounds, soft, nontender, no hepatosplenomegaly Neurologic: PERRL, EOMI, accommodation nl, no face palsy, no dysarthria Psychiatric: A+Ox3, euthymic affect Results & Data Vital Signs (Past 12 Hours) Vital Signs Temp Pulse Pulse Resp BP Pulse Ox O2 Del Method 10/24/24 11:11 64 91 10/24/24 10:26 Nasal Cannula, BiPAP 10/24/24 10:21 78 20 95 10/24/24 10:17 82 20 95 BiPAP 10/24/24 07:27 37.2 C 78 20 157/74 H 10/24/24 07:26 51 L 10/24/24 07:09 78 22 95 BiPAP 10/24/24 04:01 37.0 C 76 18 141/65 H 96 BiPAP 10/24/24 03:13 64 30 H 95 10/23/24 23:37 79 O2 Flow Rate FiO2 10/24/24 11:11 10/24/24 10:26 3 10/24/24 10:21 35 10/24/24 10:17 35 10/24/24 07:27 10/24/24 07:26 10/24/24 07:09 35 10/24/24 04:01 10/24/24 03:13 35 10/23/24 23:37 Laboratory Results Coagulation 10/24/24 Range/Units 07:02 PT 21.6 H (9.0-12.0) Seconds CBC 10/24/24 Range/Units 07:02 WBC 8.03 (4.8-10.8) K/ul RBC 3.45 L (4.70-6.10) M/uL Hgb 8.8 L (14.0-18.0) g/dl Hct 30.2 L (42.0-52.0) % Plt Count 293 (130-400) K/uL Comprehensive Metabolic Panel 10/24/24 Range/Units 07:02 Sodium 144 (136-145) mmol/L Potassium 4.6 (3.5-5.1) mmol/L Chloride 95 L (98-107) mmol/L Carbon Dioxide 45 H* (21-32) mmol/L BUN 32 H (6-23) mg/dl Creatinine 0.79 (0.6-1.4) mg/dl Glucose 91 (70-99(Fasting)) mg/dl Calcium 9.3 (8.6-10.3) mg/dl Intake and Output 10/23/24 10/24/24 10/24/24 22:59 06:59 14:59 Intake Total 400 / 1440 100 / 1440 100 / 100 Output Total 1900 / 4050 550 / 4050 Balance -1500 / -2610 -450 / -2610 100 / 100 Intake: Oral 400 / 1440 100 / 1440 100 / 100 Output: Urine Amount (Catheter) 1900 / 4050 550 / 4050 Barron/Indwelling 1900 / 4050 550 / 4050 Other: Weight 149.3 kg Weight Measurement Method Built in [facility] Diagnostic Findings Telemetry reviewed: Afib in the 80's. No bradycardia or pauses. Medications Administered Current Inpatient Medications Acetaminophen (Acetaminophen 325 Mg Tab) 650 mg PO Q4H PRN PRN Reason: Pain or Fever Stop: 11/21/24 04:03 Last Admin: 10/24/24 09:07 Dose: 650 mg Albuterol (Albuterol Hfa 8 Gm Inhaler) 2 puffs INH Q6H PRN PRN Reason: Shortness Of Breath Or Wheezing Stop: 11/21/24 04:03 Albuterol (Albut/Ipratrop 3mg/0.5mg Neb 3 Ml Vial) 3 ml NEB QIDR [facility]; Protocol Stop: 11/21/24 06:59 Last Admin: 10/24/24 10:12 Dose: 3 ml Albuterol (Albut/Ipratrop 3mg/0.5mg Neb 3 Ml Vial) 3 ml NEB Q2H PRN; Protocol PRN Reason: SOB/WHEEZING Stop: 11/21/24 04:16 Last Admin: 10/22/24 04:58 Dose: 3 ml Atorvastatin Calcium (Atorvastatin 40 Mg Tab) 80 mg PO QAM [facility] Stop: 11/21/24 08:59 Last Admin: 10/24/24 08:50 Dose: 80 mg Budesonide (Budesonide 0.5 Mg/2 Ml Vial (Pulmicort)) 0.5 mg NEB BIDR [facility] Stop: 11/21/24 18:59 Last Admin: 10/24/24 07:08 Dose: 0.5 mg Dextrose (Dextrose 50% 50 Ml Syringe) 25 - 50 ml IV UD PRN; Protocol PRN Reason: Hypoglycemia Protocol Stop: 11/21/24 04:03 Diclofenac Sodium (Diclofenac Sod 1% Gel 100 Gm Tube) 4 gm EXT BID [facility]; Protocol Stop: 11/21/24 08:59 Last Admin: 10/24/24 08:52 Dose: 4 gm Docusate Sodium (Docusate Sodium 100 Mg Cap) 100 mg PO BID [facility] Stop: 11/22/24 11:29 Last Admin: 10/24/24 09:07 Dose: 100 mg Doxycycline Hyclate (Doxycycline Hyclate 100 Mg Cap) 100 mg PO BID [facility] Stop: 10/28/24 21:01 Last Admin: 10/24/24 08:51 Dose: 100 mg Empagliflozin (Empagliflozin 10 Mg Tab) 10 mg PO QAM [facility] Stop: 11/21/24 08:59 Last Admin: 10/24/24 08:50 Dose: 10 mg Fluticasone Propionate (Fluticasone Propionate Na Spr 16 Gm Btl) 2 sprays NA DAILY [facility] Stop: 11/21/24 08:59 Last Admin: 10/24/24 08:51 Dose: 2 sprays Formoterol Fumarate (Formoterol 20 Mcg/2 Ml Vial) 20 mcg INH BIDR [facility] Stop: 11/21/24 18:59 Last Admin: 10/24/24 07:08 Dose: 20 mcg Furosemide (Furosemide 40 Mg/4 Ml Vial) 60 mg IV BID17 [facility] Stop: 11/21/24 16:59 Last Admin: 10/24/24 08:50 Dose: 60 mg Glucagon (Glucagon For Inj 1 Mg Vial) 1 mg SQ UD PRN; Protocol PRN Reason: Hypoglycemia Protocol Stop: 11/21/24 04:03 Glucose (Glucose 40% Gel 15 Gm Tube) 15 - 30 gm PO UD PRN; Protocol PRN Reason: Hypoglycemia Protocol Stop: 11/21/24 04:03 Glucose (Glucose 10 Tab/Tube) 4 - 8 tab PO UD PRN; Protocol PRN Reason: Hypoglycemia Protocol Stop: 11/21/24 04:03 Guaifenesin (Guaifenesin 600 Mg Tabcr) 1,200 mg PO Q12 [facility] Stop: 11/21/24 08:59 Last Admin: 10/24/24 08:49 Dose: 1,200 mg Cefepime HCl (Maxipime 2000mg) 2,000 mg in 20 mls @ 5 mls/min IV Q12H [facility]; Protocol Stop: 10/29/24 08:59 Last Admin: 10/24/24 09:36 Dose: 5 mls/min Acetazolamide 250 mg/ Syringe 2.5 mls @ 0.833 mls/min IV ONE ONE Stop: 10/24/24 13:01 Insulin Aspart (Insulin Aspart Per Unit Charge) 0 units SC ACHS [facility] Stop: 11/21/24 07:29 Last Admin: 10/24/24 08:29 Dose: 4 units Miscellaneous (Carbohydrates For Hypoglycemia ) 15 - 30 gm PO UD PRN PRN Reason: Hypoglycemia Protocol Stop: 11/21/24 04:03 Montelukast Sodium (Montelukast Sodium 10 Mg Tablet) 10 mg PO QAM [facility] Stop: 11/21/24 08:59 Last Admin: 10/24/24 08:49 Dose: 10 mg Multivitamins/Minerals (Cerovite Adv Formula Tab) 1 tab PO DAILY [facility] Stop: 11/21/24 08:59 Last Admin: 10/24/24 08:50 Dose: 1 tab Nitroglycerin (Nitroglycerin Sl 0.4 Mg/Tab Tab) 0.4 mg SL Q5M PRN PRN Reason: Chest Pain Stop: 11/21/24 04:03 Pantoprazole Sodium (Pantoprazole 40 Mg Tab) 40 mg PO DAILY [facility] Stop: 11/21/24 08:59 Last Admin: 10/24/24 08:49 Dose: 40 mg Polyethylene Glycol (Polyethylene (Miralax) 17 Gm Pack) 17 gm PO DAILY PRN PRN Reason: Constipation Stop: 11/21/24 04:03 Last Admin: 10/23/24 07:53 Dose: 17 gm Potassium Chloride (Potassium Chloride Crtab 20 Meq Tabcr) 20 meq PO QAM [facility] Stop: 11/21/24 08:59 Last Admin: 10/24/24 09:08 Dose: 20 meq Sodium Chloride (Sodium Chlor 7% 4 Ml Neb) 4 ml NEB BIDR [facility] Stop: 11/21/24 06:59 Last Admin: 10/24/24 07:08 Dose: 4 ml Spironolactone (Spironolactone 25 Mg Tab) 25 mg PO DAILY [facility] Stop: 11/22/24 08:59 Last Admin: 10/23/24 08:01 Dose: 25 mg Umeclidinium [place] (Umeclidinium [place] 62.5mcg/Blister 7 Puffs/Inhaler) 1 puffs INH DAILY [facility] Stop: 11/22/24 08:59 Last Admin: 10/24/24 08:51 Dose: 1 puffs Warfarin Sodium (Warfarin Sod 10 Mg Tab) 10 mg PO DAILY@1600 [facility] Stop: 11/21/24 15:59 Last Admin: 10/22/24 16:19 Dose: 10 mg
[2024-10-24] MEDS: acetaZOLAMIDE 250 MG in SYRINGE 0 ML IV ONE (13:24)
--- NOTE | 2024-10-24 16:10 | Hospitalist Progress Note ---
Date of Service October 24, 2024 Assessment & Plan (1) Altered mental status: Plan 69 M w/ PMH of type 2 diabetes, chronic respiratory failure with hypoxia and hypercapnia on 3 L oxygen all the time, OHS, BiPAP dependent, HLD, COPD, atrial fibrillation, pHTN, chronic heart failure preserved ejection fraction, venous insufficiency, HTN, morbid obesity, CKD stage III, DVT, atherosclerosis of [place] coronary artery without angina who lives at home with his son was brought in because of altered mental status and found to have CO2 retention and also lower extremity cellulitis. By time the patient was brought to the hospital his mental status improved. BLE noted to be more erythematous than usual at presentation. Reports cough w/ dark yellow sputum for 3-4 days ago [employer]. He is being managed for the following: Acute on chronic heart failure with hypoxia and hypercapnia Possible COPD exacerbation Metabolic encephalopathy: Secondary to CO2 retention iso acute on chronic respiratory failure. Obesity hypoventilation syndrome, ho Patient noted to be altered prior to presentation, reported cough with yellow sputum for 3 to 4 days [employer]. Admitting VBG with pCO2 of 101. Admitting BNP 439. procalcitonin negative. Admitting CT head with no acute finding. Admitting CXR with vascular congestion and possible small effusion. Admitting CT chest with minimal bilateral pleural effusion and bilateral lower lobes atelectasis. BiPAP prn and HS, mentation has improved. Scheduled and as needed nebs. Continue with doxycycline 10/22. Pulmonology on board, appreciate recommendation. Theophylline discontinued 10/24 per pulm recs. Acute on chronic heart failure with preserved ejection fraction Admitting chest imaging with pulmonary vascular congestion and 2-3+ BLE pitting edema at presentation. Cardiology on board, being diuresed. Monitor and replete electrolytes as appropriate. Fluid restriction of 1500 mL. BLE cellulitis: Patient with erythematous BLE at presentation. Initial lactate 2.2, resolved on repeat. Patient started on cefepime 10/22, continue. Improving erythema and warmth of lower extremities. Chronic atrial fibrillation: per cardiology, DC Coreg given history of significant bradycardia with it. Continue with Theophylline and warfarin. Warfarin on hold today due to supratherapeutic INR, follow PT/INR tomorrow. Demand ischemia: Troponin elevated in high 20s, flat trended, patient with no chest pain. Likely elevation in the setting of acute respiratory distress. Continue telemetry monitoring. EKG without acute ST or T changes. Other chronic medical conditions: Continue with/resume home meds as when able. Obesity hypoventilation syndrome: BiPAP nightly and when napping. Diabetes: Sliding scale insulin while in hospital. CKD stage III: Stable. Monitor labs. History of DVT: Continue with Coumadin, daily PT/INR. Morbid obesity: Encouraged weight loss, daily exercise regimen, healthy diet. DVT prophylaxis: Supratherapeutic INR Disposition: Continue with telemetry monitoring Full code Admission and Anticipated Discharge Date Admission Date: October 22, 2024 Subjective Patient was seen and examined at bedside. Patient was lying in bed, on BPAP, NAD, resting comfortably. Patient reported improving lower extremity pain. Improving lower extremity swelling and erythema and warmth also noted. Patient denied any nausea/vomiting/abdominal pain. Reports stable bowel and bladder habits. Physical Exam Physical Exam: General- Not in distress Head- atraumatic Eyes- PERRL. ENT- oropharynx clear Neck- supple, no JVD. Lungs- Decreased breath sounds bilaterally, bibasal crackles. Heart- regular rhythm; no murmur, no gallop. Abdomen- normal bowel sounds, soft, nontender, no distension Extremities- b/l lower extremity gross edema with erythema seen, Warmth, tender.Improving. Neuro- alert, oriented x 3; PERRL, ; no facial palsy; no dysarthria; Results & Data Results & Data Vital Signs (Past 12 Hours) Vital Signs Temp Pulse Pulse Resp BP Pulse Ox O2 Del Method 10/24/24 15:33 78 22 97 10/24/24 15:33 73 22 97 BiPAP 10/24/24 11:11 64 91 10/24/24 10:26 Nasal Cannula, BiPAP 10/24/24 10:21 78 20 95 10/24/24 10:17 82 20 95 BiPAP 10/24/24 07:27 37.2 C 78 20 157/74 H 10/24/24 07:26 51 L 10/24/24 07:09 78 22 95 BiPAP O2 Flow Rate FiO2 10/24/24 15:33 35 10/24/24 15:33 35 10/24/24 11:11 10/24/24 10:26 3 10/24/24 10:21 35 10/24/24 10:17 35 10/24/24 07:27 10/24/24 07:26 10/24/24 07:09 35 (1) Altered mental status Altered mental status type: unspecified Qualified Code(s): R41.82 - Altered mental status, unspecified
[2024-10-25 06:31] LABS: Hematocrit (blood only) 30.4 % (42.0-52.0); Hemoglobin 8.8 g/dl (14.0-18.0); Mean Corpuscular Hemoglobin 25.4 pg (25.0-34.0); Mean Corpuscular Hgb Conc 28.9 g/dL (32.0-36.0); Mean Corpuscular Volume 87.6 fL (80.0-100.0); Mean Platelet Volume 9.4 fL (9.4-12.4); Platelet Count 289 K/uL (130-400); RDW Coefficient of Variation 16.9 % (11.5-14.5); RDW Standard Deviation 54.3 fL (36.4-46.3); Red Blood Count 3.47 M/uL (4.70-6.10); White Blood Count 9.33 K/ul (4.8-10.8)
[2024-10-25 06:51] LABS: Calcium 9.5 mg/dl (8.6-10.3); Phosphorus 3.4 mg/dl (2.5-4.9); Potassium 4.1 mmol/L (3.5-5.1)
[2024-10-25 06:52] LABS: INR 1.7 (0.9-1.1); Prothrombin Time 17.4 Seconds (9.0-12.0)
[2024-10-25] MEDS: ESCITALOPRAM OXALATE 10 MG TAB PO SCH (08:29)
--- NOTE | 2024-10-25 09:50 | Pulmonology Progress Note ---
Date of Service October 25, 2024 Assessment & Plan (1) Heart failure, diastolic, with acute decompensation: (2) Acute on chronic respiratory failure with hypoxia and hypercapnia: (3) Abnormal CT scan, chest: (4) Asthma-COPD overlap syndrome: (5) CRISTOFER (obstructive sleep apnea): (6) Obesity hypoventilation syndrome: Plan CTA chest 10/22/2024 personally reviewed: Minimal centrilobular emphysema appreciated bilaterally Dependent atelectasis bilateral lower lobes, right greater than left Small bilateral pleural effusion Cardiomegaly Station 4 subcarinal lymphadenopathy 2D echo 07/21/2024: EF 60-65%, mild concentric LVH, RV not well-visualized but mildly dilated, RV systolic function normal, PASP 57 mmHg VBG 10/21/2024: 7.24/101/33 -- Acute on chronic hypercapnic hypoxic respiratory failure On 2 and half - 3 L oxygen at home Multifactorial For hypoxia HFpEF and possibly COPD exacerbation For hypercapnia likely underlying CRISTOFER/OHS with noncompliance BNP 439 Procalcitonin 0.13 Respiratory BioFire was negative for everything on 09/13/2024 -- Asthma-COPD overlap syndrome Lifetime non-smoker Does have significant exposure to smoke and fumes at work Even though the patient is a lifetime non-smoker, I do see minimal emphysema on the CT chest Alpha-1 level within normal limit 10/23/2024 On Trelegy 100 at home On montelukast and Theophylline Absolute eosinophil count 360 on 07/28/2024 --CRISTOFER/OHS On BiPAP at home --Pulmonary hypertension Likely combination of type II and type III -- History of DVT On warfarin -- Metabolic alkalosis Likely compensation to chronic respiratory acidosis as well as diuretic use Plan: In/out: - 3.5 L, urine output 4850, - 8.7 L since coming to the hospital Continue with diuretics to keep the patient negative balance. Creatinine still stable at baseline, Will give another dose of acetazolamide 250 mg. Hold the evening dose of Lasix Continue with BiPAP nightly and as needed shortness of breath. Recommend BiPAP settings to get a tidal volume of around 400 Try to avoid over oxygenation, goal O2 saturation 90-92% Nebulized bronchodilators while in the hospital DC theophylline and follow-up theophylline level Patient seems to be depressed, escitalopram has been added by primary team on 10/24/2024 Patient was more somnolent today than his baseline, I will get ABG to look at the pCO2 Case discussed with RN at bedside Please note the above document was generated using voice recognition software. It may contain grammatical, syntax or spelling errors.Any formal questions or concerns about the content, text or information contained within the body of this dictation should be directly addressed to the provider for clarification. Admission and Anticipated Discharge Date Admission Date: October 22, 2024 Subjective Patient seen and examined at bedside. No acute distress, no AutoSense overnight He was on BiPAP at the time of examination He was a bit somnolent but answering the questions appropriately Denied any headache, no chest pain, no abdominal pain He was complaining of pain in bilateral lower legs. No nausea or vomiting Appetite is fair Review of Systems 2 Review of Systems: All systems reviewed & are unremarkable except as noted in Subjective Physical Exam 2 Physical Exam: Constitutional: No acute distress HEENT: EOMI, PERRLA Respiratory system: Decreased air entry bilaterally, no wheeze, no rhonchi, positive crackles bilateral lower lobe CVS: S1-S2 positive, no murmurs or gallops, accentuated P2 Abdomen: Soft, nontender, nondistended, positive bowel sounds x4, obese Extremities: +2 pulses bilaterally radialis/ dorsalis pedis, no cyanosis, +2 pitting edema bilateral lower extremity, positive rubor, positive calor, no dolor Neuro: Somnolent but easily arousable, oriented to self and place Psych: Normal mood and affect G/U: Positive Barron Skin: no rashes, warm and dry Lymphatic: no cervical or axillary lymphadenopathy Results & Data Results & Data Vital Signs (Past 12 Hours) Vital Signs Temp Pulse Pulse Resp BP BP Pulse Ox 10/25/24 07:37 36.3 C L 72 19 147/93 H 96 10/25/24 07:22 69 22 94 10/25/24 07:20 69 22 94 10/25/24 03:24 36.5 C 77 18 161/86 H 96 10/25/24 02:15 65 26 H 93 10/24/24 23:25 64 10/24/24 23:24 36.6 C 73 20 147/88 H 95 10/24/24 23:00 69 19 95 10/24/24 22:05 67 O2 Del Method FiO2 10/25/24 07:37 BiPAP 10/25/24 07:22 35 10/25/24 07:20 BiPAP 35 10/25/24 03:24 CPAP 10/25/24 02:15 35 10/24/24 23:25 10/24/24 23:24 BiPAP 10/24/24 23:00 35 10/24/24 22:05 Laboratory Results 10/25/24 05:49 10/25/24 05:49 PG Care Time/CCT Total # of Minutes Spent Total Time Spent with Patient: Total time spent is greater than 50% in coordination of care (as documented) at patient's floor/unit and/or counseling patient: Coding Level of Care Code 48552 SUB INP/OBS CARE 3/50MIN Diagnoses Heart failure, diastolic, with acute decompensation I50.33 Acute on chronic respiratory failure with hypoxia and hypercapnia J96.21; J96.[address] scan, chest R93.89 Asthma-COPD overlap syndrome J44.89 CRISTOFER (obstructive sleep apnea) G47.33 Obesity hypoventilation syndrome E66.2
[2024-10-25 11:22] LABS: Base Excess ABG 22.9 mEq/L (-9-1.8); HCO3 ABG 53 mmol/L (19-24); PCO2 ABG 88 mmHg (35-46); PO2 ABG 87 mmHg (80-95); pH ABG 7.39 (7.35-7.45)
[2024-10-25 11:23] LABS: Allen Test Pos (Pos)
--- NOTE | 2024-10-25 12:57 | Cardiology Progress Note ---
Date of Service October 25, 2024 Assessment & Plan (1) Bilateral cellulitis of lower leg: (2) Acute respiratory failure with hypoxia and hypercarbia: (3) Heart failure, diastolic, with acute decompensation: (4) Chronic a-fib: (5) Obesity hypoventilation syndrome: Plan 10/23/24: Bilateral lower extremity cellulitis. As per Hospitalist service. Acute decompensated heart failure with preserved ejection fraction * Diuresing well on IV furosemide at 60 mg twice a day - continue. * Spironolactone increased to 25 mg/day * Continue potassium chloride supplementation for now * Continue Empagliflozin (Jardiance) * Fluid restrict to 1500 mL * Sodium restrict to less than 1500 mg/day Chronic atrial fibrillation * Carvedilol discontinued in June 2024 due to significant bradycardia, at which time Theophylline was prescribed with resultant significant improvement * Carvedilol resumed by PCP on October 06, 2024 * Carvedilol discontinued once again * Avoid AV dave blockers * Continue chronic anticoagulation Morbid obesity, obesity hypoventilation syndrome, severe pulmonary hypertension, chronic hypoxic hypercarbic respiratory failure. * Continue oxygen supplementation * Recommend BiPAP nightly and when napping during the day. * Pulmonary Medicine on board. 10/24/24: At least 4 L output over the last 24 hours. Negative 5.3 L since admission. Weight down about 5 kg since admission. Continue antibiotics for cellulitis per hospitalist. Continue IV furosemide 60 mg BID and spironolactone 25 mg daily Stable renal function/electrolytes. Continue potassium supplements. Continue Jardiance. Fluid restriction of 1500 ml daily. Chronic atrial fibrillation. Rates controlled. Avoid AV dave blocking therapies. Previously on beta jojo, causing bradycardia. Carvedilol discontinued. Continue anticoagulation. Hypoventilatory syndrome, severe pulm hypertension, chronic hypoxic hypercarbic respiratory failure -BIPAP -continue diuresis -appreciate pulm recommendations 10/25/24 4.8 L output yesterday and 1.4 today. Negative 10 L since admission Weight down about 8 kg since admission per scales. Continue furosemide 40 mg IV x1 today and spironolactone 25 mg. Evening dose of furosemide to be held per pulm. Patient to receive dose of Acetazolamide today. Blood gas results pending BIPAP recommended. Chronic afib noted. Rates controlled. Avoid AV dave blocking agents. prior episodes of bradycardia noted during past admissions. Theophylline was initiated at that time which aided bradycardia. Now discontinued by pulm. Monitor HR's. Continue anticoagulation. Case discussed with Dr. Hillman I spent a total of 35 minutes on the date of service in preparation, delivery, and documentation of the care provided to this patient, excluding any time spent in the performance of separately billed services. Bettina Brizuela PA-C Department of Cardiology, [facility] This chart was completed in part utilizing Speech Voice Recognition Software. Grammatical errors, random word insertions, pronoun errors, and incomplete sentences are an occasional consequence of this system due to software limitations, ambient noise, and hardware issues. Any formal questions or concerns about the content, text, or information contained within the body of this dictation should be directly addressed to the provider for clarification. Admission and Anticipated Discharge Date Admission Date: October 22, 2024 Supervising Physician Co-Signing Physician Notes I have reviewed the advanced practitioner's documentation on the date of service referenced in note, and I agree with, and take responsibility for the plan of care. I spent a total of [20] minutes coordinating, documenting, and providing care for this patient excluding time spent in the performance of separately billed services or time spent by another provider. has been diuresing well , needing diamox for elevated co2 received IV lasix 60 IV bid- today 40 lasix and diamox continue with IV diuresis Subjective Patient resting in bed. More lethargic today. Blood gasses ordered by Pulm and pending at time of evaluation. Denies chest pain. Ongoing SOB reported. Good urine output since admission. Acetazolamide ordered and eveniing dose of furosemide to be held. Review of Systems Review of Systems: All systems reviewed & are unremarkable except as noted in HPI & below Physical Exam Constitutional: + morbidly obese; no acute distress Neck: + thick neck Respiratory: no labored breathing Auscultation: + diminished lung sounds; no crackles and no rales Cardiovascular: Rate/Rhythm: + irregularly irregular Extremities: + edema (2+ edema b/l with erythema ) Gastrointestinal (Abdomen): normal bowel sounds, soft, nontender, no hepatosplenomegaly Neurologic: PERRL, EOMI, accommodation nl, no face palsy, no dysarthria Psychiatric: A+Ox3, euthymic affect Results & Data Vital Signs (Past 12 Hours) Vital Signs Temp Pulse Pulse Resp BP BP Pulse Ox 10/25/24 12:06 37 C 84 20 123/73 95 10/25/24 11:10 69 20 96 10/25/24 11:08 69 20 96 10/25/24 09:00 71 10/25/24 09:00 10/25/24 07:37 36.3 C L 72 19 147/93 H 96 10/25/24 07:22 69 22 94 10/25/24 07:20 69 22 94 10/25/24 03:24 36.5 C 77 18 161/86 H 96 10/25/24 02:15 65 26 H 93 O2 Del Method O2 Flow Rate FiO2 10/25/24 12:06 Nasal Cannula 4 10/25/24 11:10 35 10/25/24 11:08 BiPAP 35 10/25/24 09:00 10/25/24 09:00 Nasal Cannula, BiPAP 3 10/25/24 07:37 BiPAP 10/25/24 07:22 35 10/25/24 07:20 BiPAP 35 10/25/24 03:24 CPAP 10/25/24 02:15 35 Laboratory Results Coagulation 10/25/24 Range/Units 05:49 PT 17.4 H (9.0-12.0) Seconds CBC 10/25/24 Range/Units 05:49 WBC 9.33 (4.8-10.8) K/ul RBC 3.47 L (4.70-6.10) M/uL Hgb 8.8 L (14.0-18.0) g/dl Hct 30.4 L (42.0-52.0) % Plt Count 289 (130-400) K/uL Comprehensive Metabolic Panel 10/25/24 Range/Units 05:49 Sodium 141 (136-145) mmol/L Potassium 4.1 (3.5-5.1) mmol/L Chloride 92 L (98-107) mmol/L Carbon Dioxide 43 H* (21-32) mmol/L BUN 30 H (6-23) mg/dl Creatinine 0.79 (0.6-1.4) mg/dl Glucose 91 (70-99(Fasting)) mg/dl Calcium 9.5 (8.6-10.3) mg/dl Intake and Output 10/24/24 10/25/24 10/25/24 22:59 06:59 14:59 Intake Total 920 / 1170 150 / 1170 350 / 350 Output Total 2150 / 4850 2700 / 4850 1450 / 1450 Balance -1230 / -3680 -2550 / -3680 -1100 / -1100 Intake: Oral 920 / 1170 150 / 1170 350 / 350 Output: Urine Amount (Catheter) 2150 / 4850 2700 / 4850 1450 / 1450 Barron/Indwelling 2150 / 4850 2700 / 4850 1450 / 1450 Other: Weight 146.284 kg Weight Measurement Method Built in [facility] Diagnostic Findings Telemetry reviewed: chronic afib, rates controlled. Medications Administered Current Inpatient Medications Acetaminophen (Acetaminophen 325 Mg Tab) 650 mg PO Q4H PRN PRN Reason: Pain or Fever Stop: 11/21/24 04:03 Last Admin: 10/25/24 08:31 Dose: 650 mg Albuterol (Albuterol Hfa 8 Gm Inhaler) 2 puffs INH Q6H PRN PRN Reason: Shortness Of Breath Or Wheezing Stop: 11/21/24 04:03 Albuterol (Albut/Ipratrop 3mg/0.5mg Neb 3 Ml Vial) 3 ml NEB QIDR OMAYRA; Protocol Stop: 11/21/24 06:59 Last Admin: 10/25/24 11:06 Dose: 3 ml Albuterol (Albut/Ipratrop 3mg/0.5mg Neb 3 Ml Vial) 3 ml NEB Q2H PRN; Protocol PRN Reason: SOB/WHEEZING Stop: 11/21/24 04:16 Last Admin: 10/22/24 04:58 Dose: 3 ml Atorvastatin Calcium (Atorvastatin 40 Mg Tab) 80 mg PO QAM [facility] Stop: 11/21/24 08:59 Last Admin: 10/25/24 08:28 Dose: 80 mg Budesonide (Budesonide 0.5 Mg/2 Ml Vial (Pulmicort)) 0.5 mg NEB BIDR OMAYRA Stop: 11/21/24 18:59 Last Admin: 10/25/24 07:20 Dose: 0.5 mg Dextrose (Dextrose 50% 50 Ml Syringe) 25 - 50 ml IV UD PRN; Protocol PRN Reason: Hypoglycemia Protocol Stop: 11/21/24 04:03 Diclofenac Sodium (Diclofenac Sod 1% Gel 100 Gm Tube) 4 gm EXT BID OMAYRA; Protocol Stop: 11/21/24 08:59 Last Admin: 10/25/24 08:26 Dose: 4 gm Docusate Sodium (Docusate Sodium 100 Mg Cap) 100 mg PO BID [facility] Stop: 11/22/24 11:29 Last Admin: 10/25/24 08:31 Dose: 100 mg Doxycycline Hyclate (Doxycycline Hyclate 100 Mg Cap) 100 mg PO BID [facility] Stop: 10/28/24 21:01 Last Admin: 10/25/24 08:28 Dose: 100 mg Empagliflozin (Empagliflozin 10 Mg Tab) 10 mg PO QAM [facility] Stop: 11/21/24 08:59 Last Admin: 10/25/24 08:28 Dose: 10 mg Escitalopram Oxalate (Escitalopram Oxalate 10 Mg Tab) 10 mg PO QAM [facility] Stop: 11/24/24 08:59 Last Admin: 10/25/24 08:29 Dose: 10 mg Fluticasone Propionate (Fluticasone Propionate Na Spr 16 Gm Btl) 2 sprays NA DAILY [facility] Stop: 11/21/24 08:59 Last Admin: 10/25/24 08:25 Dose: 2 sprays Formoterol Fumarate (Formoterol 20 Mcg/2 Ml Vial) 20 mcg INH BIDR [facility] Stop: 11/21/24 18:59 Last Admin: 10/25/24 07:20 Dose: 20 mcg Furosemide (Furosemide 40 Mg/4 Ml Vial) 60 mg IV BID17 [facility] Stop: 11/21/24 16:59 Last Admin: 10/25/24 09:38 Dose: 60 mg Glucagon (Glucagon For Inj 1 Mg Vial) 1 mg SQ UD PRN; Protocol PRN Reason: Hypoglycemia Protocol Stop: 11/21/24 04:03 Glucose (Glucose 40% Gel 15 Gm Tube) 15 - 30 gm PO UD PRN; Protocol PRN Reason: Hypoglycemia Protocol Stop: 11/21/24 04:03 Glucose (Glucose 10 Tab/Tube) 4 - 8 tab PO UD PRN; Protocol PRN Reason: Hypoglycemia Protocol Stop: 11/21/24 04:03 Guaifenesin (Guaifenesin 600 Mg Tabcr) 1,200 mg PO Q12 [facility] Stop: 11/21/24 08:59 Last Admin: 10/25/24 08:29 Dose: 1,200 mg Cefepime HCl (Maxipime 2000mg) 2,000 mg in 20 mls @ 5 mls/min IV Q12H [facility]; Protocol Stop: 10/29/24 08:59 Last Admin: 10/25/24 09:37 Dose: 5 mls/min Acetazolamide 250 mg/ Syringe 2.5 mls @ 0.833 mls/min IV ONE ONE Stop: 10/25/24 14:01 Insulin Aspart (Insulin Aspart Per Unit Charge) 0 units SC ACHS [facility] Stop: 11/21/24 07:29 Last Admin: 10/25/24 12:02 Dose: 2 units Miscellaneous (Carbohydrates For Hypoglycemia ) 15 - 30 gm PO UD PRN PRN Reason: Hypoglycemia Protocol Stop: 11/21/24 04:03 Montelukast Sodium (Montelukast Sodium 10 Mg Tablet) 10 mg PO QAM [facility] Stop: 11/21/24 08:59 Last Admin: 10/25/24 08:29 Dose: 10 mg Multivitamins/Minerals (Cerovite Adv Formula Tab) 1 tab PO DAILY [facility] Stop: 11/21/24 08:59 Last Admin: 10/25/24 08:29 Dose: 1 tab Nitroglycerin (Nitroglycerin Sl 0.4 Mg/Tab Tab) 0.4 mg SL Q5M PRN PRN Reason: Chest Pain Stop: 11/21/24 04:03 Pantoprazole Sodium (Pantoprazole 40 Mg Tab) 40 mg PO DAILY [facility] Stop: 11/21/24 08:59 Last Admin: 10/25/24 08:28 Dose: 40 mg Polyethylene Glycol (Polyethylene (Miralax) 17 Gm Pack) 17 gm PO DAILY PRN PRN Reason: Constipation Stop: 11/21/24 04:03 Last Admin: 10/23/24 07:53 Dose: 17 gm Potassium Chloride (Potassium Chloride Crtab 20 Meq Tabcr) 20 meq PO QAM [facility] Stop: 11/21/24 08:59 Last Admin: 10/25/24 08:30 Dose: 20 meq Sodium Chloride (Sodium Chlor 7% 4 Ml Neb) 4 ml NEB BIDR [facility] Stop: 11/21/24 06:59 Last Admin: 10/25/24 07:20 Dose: 4 ml Spironolactone (Spironolactone 25 Mg Tab) 25 mg PO DAILY [facility] Stop: 11/22/24 08:59 Last Admin: 10/25/24 08:29 Dose: 25 mg Umeclidinium [place] (Umeclidinium [place] 62.5mcg/Blister 7 Puffs/Inhaler) 1 puffs INH DAILY [facility] Stop: 11/22/24 08:59 Last Admin: 10/25/24 08:25 Dose: 1 puffs Warfarin Sodium (Warfarin Sod 10 Mg Tab) 10 mg PO DAILY@1600 [facility] Stop: 11/21/24 15:59 Last Admin: 10/24/24 17:53 Dose: 10 mg
[2024-10-25] MEDS: acetaZOLAMIDE 250 MG in SYRINGE 0 ML IV ONE (13:52)
--- NOTE | 2024-10-25 15:51 | Hospitalist Progress Note ---
Date of Service October 25, 2024 Assessment & Plan (1) Altered mental status: Plan 69 M w/ PMH of type 2 diabetes, chronic respiratory failure with hypoxia and hypercapnia on 3 L oxygen all the time, OHS, BiPAP dependent, HLD, COPD, atrial fibrillation, pHTN, chronic heart failure preserved ejection fraction, venous insufficiency, HTN, morbid obesity, CKD stage III, DVT, atherosclerosis of [place] coronary artery without angina who lives at home with his son was brought in because of altered mental status and found to have CO2 retention and also lower extremity cellulitis. By time the patient was brought to the hospital his mental status improved. BLE noted to be more erythematous than usual at presentation. 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 He is being managed for the following: Acute on chronic heart failure with hypoxia and hypercapnia Possible COPD exacerbation Metabolic encephalopathy: Secondary to CO2 retention iso acute on chronic respiratory failure. 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 Admitting VBG with pCO2 of 101. Admitting BNP 439. procalcitonin negative. Admitting CT head with no acute finding. Admitting CXR with vascular congestion and possible small effusion. Admitting CT chest with minimal bilateral pleural effusion and bilateral lower lobes atelectasis. BiPAP prn and HS, more somnolent today, ABF w/ increased CO2 retention. c/w bpap. Scheduled and as needed nebs. Continue with doxycycline 10/22. Pulmonology on board, appreciate recommendation. Theophylline discontinued 10/24 per pulm recs. d/w pt's DIL (Maira [phone]) and pt, they want palliative care involvement, will consult for miko. Acute on chronic heart failure with preserved ejection fraction Admitting chest imaging with pulmonary vascular congestion and 2-3+ BLE pitting edema at presentation. Cardiology on board, being diuresed. Monitor and replete electrolytes as appropriate. Fluid restriction of 1500 mL. BLE cellulitis: Patient with erythematous BLE at presentation. Initial lactate 2.2, resolved on repeat. Patient started on cefepime 10/22, continue. Improving erythema and warmth of lower extremities. Chronic atrial fibrillation: per cardiology, DC Coreg given history of significant bradycardia with it. Continue with Theophylline and warfarin. Warfarin on hold today due to supratherapeutic INR, follow PT/INR tomorrow. Demand ischemia: Troponin elevated in high 20s, flat trended, patient with no chest pain. Likely elevation in the setting of acute respiratory distress. Continue telemetry monitoring. EKG without acute ST or T changes. Other chronic medical conditions: Continue with/resume home meds as when able. Obesity hypoventilation syndrome: BiPAP nightly and when napping. Diabetes: Sliding scale insulin while in hospital. CKD stage III: Stable. Monitor labs. History of DVT: Continue with Coumadin, daily PT/INR. Morbid obesity: Encouraged weight loss, daily exercise regimen, healthy diet. DVT prophylaxis: Supratherapeutic INR Disposition: Continue with telemetry monitoring d/w pt, pt changed code status to dnr/dni 10/25. Admission and Anticipated Discharge Date Admission Date: October 22, 2024 Subjective Patient was seen and examined at bedside. Patient was lying in bed, on BPAP, somnolent. Patient reports lower extremity pain but gradually improving. Improving lower extremity swelling and erythema and warmth also noted. Patient denied any nausea/vomiting/abdominal pain. reports sob ongoing. Reports stable bowel and bladder habits. Physical Exam Physical Exam: General- Not in distress Head- atraumatic Eyes- PERRL. ENT- oropharynx clear Neck- supple, no JVD. Lungs- Decreased breath sounds bilaterally, bibasal crackles. Heart- regular rhythm; no murmur, no gallop. Abdomen- normal bowel sounds, soft, nontender, no distension Extremities- b/l lower extremity gross edema with erythema seen, Warmth, tender.Improving. Neuro- alert, oriented x 3; PERRL, ; no facial palsy; no dysarthria; Results & Data Results & Data Vital Signs (Past 12 Hours) Vital Signs Temp Pulse Pulse Resp BP BP Pulse Ox 10/25/24 15:12 68 97 10/25/24 12:06 37 C 84 20 123/73 95 10/25/24 11:10 69 20 96 10/25/24 11:08 69 20 96 10/25/24 09:00 71 10/25/24 09:00 10/25/24 07:37 36.3 C L 72 19 147/93 H 96 10/25/24 07:22 69 22 94 10/25/24 07:20 69 22 94 O2 Del Method O2 Flow Rate FiO2 10/25/24 15:12 Nasal Cannula 4 10/25/24 12:06 Nasal Cannula 4 10/25/24 11:10 35 10/25/24 11:08 BiPAP 35 10/25/24 09:00 10/25/24 09:00 Nasal Cannula, BiPAP 3 10/25/24 07:37 BiPAP 10/25/24 07:22 35 10/25/24 07:20 BiPAP 35 (1) Altered mental status Altered mental status type: unspecified Qualified Code(s): R41.82 - Altered mental status, unspecified
[2024-10-26] MEDS: CALCIUM CARBONATE 500 MG CHEWABLE TAB PO STA (01:20)
[2024-10-26 06:19] LABS: Hematocrit (blood only) 30.9 % (42.0-52.0); Mean Corpuscular Hemoglobin 25.2 pg (25.0-34.0); Mean Corpuscular Hgb Conc 29.1 g/dL (32.0-36.0); Mean Corpuscular Volume 86.6 fL (80.0-100.0); Platelet Count 265 K/uL (130-400); RDW Coefficient of Variation 16.8 % (11.5-14.5); RDW Standard Deviation 52.7 fL (36.4-46.3); Red Blood Count 3.57 M/uL (4.70-6.10)
[2024-10-26 06:46] LABS: Calcium 9.3 mg/dl (8.6-10.3); Creatinine Clr Calc Pharmacy 127.1 ml/min; Phosphorus 3.1 mg/dl (2.5-4.9); Potassium 4.1 mmol/L (3.5-5.1)
[2024-10-26 06:54] LABS: INR 1.7 (0.9-1.1); Prothrombin Time 17.2 Seconds (9.0-12.0)
[2024-10-26 07:42] LABS: Base Excess VBG 17.9 mEq/L; HCO3 VBG 47 mmol/L; Oxygen Saturation VBG 89.2 %; PCO2 VBG 78 mmHg (38-50); PO2 VBG 57 mmHg; pH VBG 7.39 (7.36-7.41)
--- NOTE | 2024-10-26 08:51 | Palliative Care Consultation ---
Date of Consultation October 26, 2024 Assessment & Plan (1) Palliative care by specialist: (2) Counseling regarding advanced directives and goals of care: (3) Need for comfort care: (4) POLST (Physician Orders for Life-Sustaining Treatment): POLST completed by patient, DNR/DNI with Comfort Directed Care, no tube feeds and ABx for symptom management only Plan Met with pt at bedside from 13:00 - 13:40. He was drowsy but arousable and oriented x4. We discussed his HPI, admisssion course, chronic progressive medical problems, and current debilitated state and bipap dependence. Pt shared that he does not wish to be in hospital and understands that if he were to "go home it would be to ". He shared that he has discussed this at length with he son and ANUJ and they want him to come back home for hospice care. He shared that he knows that time will come when his disease has progressed to the point that Bipap will no longer be sufficient and he would require a ventilator. He shared that he does not ever want to be on a ventilator. He shared that the decision has been made and he wants to go home as soon as possible. Pt shared that his family will be in late afernoon to discuss further but they are in agreement and hopeful that he will return to live with his son Toyin Rao. Pt does not require a proxy for medical decisions. Patient has exhibited current decisional capacity based on the ability to convey understanding of personal PMHx, current medical condition, treatment options and the risks / benefits of those options, and lack of ability to make decisions based on such knowledge. Hospital does not have written documentation of patient wishes concerning his chosen proxy for medical decisions. Per PA [id number], in absence of written documentation of patient wishes, pt's proxy for medical decisions would be his three sons with equal decisional power. Met with patient and his son Toyin Rao at bedside from 14:45 - 15:30, THOMAS Cagle RN was present for meeting. Discussed pt's decision to transition to comfort directed care with family. Sandeep and Maira shared that they recently lost a family member to cancer and had a very negative experience with [facility]. They agree that pt return to their home for hospice care, but request different hospice organization. Maira expressed concern that she would be alone with patient for 8hrs per day and unsure that she could help pt to bathroom given his size and weakened state. Help family understand that pt will likely remain bedbound for the remainder of his time and would have a hernandez catheter. Discussed that hospice would supply any DME needed to make caring for the pt easier. Discussed with pt and family that full care including BIpap would continue until pts discharge in order to optimize pulmonary status prior to transport. Comfort directed care would begin with discharge. Helped pt and family understand that in concert with hospice philosophy of care, life prolonging therapies, including bipap, would be discontinued in order to allow for a natural . Patient and family in agreement with this plan. Sandeep requests that discharge be delayed until after 10am so that they might get house arranged for DME delivery. Dolores (THOMAS) shared that she will be reaching out to hospice agency as well as scheduling ambulance transport for tomorrow late morning. Palliative care will continue to follow for pt/family support. Plan discussed with BSRN, attending Dr Rothman, and THOMAS. History of Present Illness Reason for Consultation: goals of care Requesting Physician: Cori Rothman MD Attending Physician: Cori Rothman MD History of Present Illness Bala Méndez is a 69y male with PMHx of type 2 diabetes, chronic respiratory failure with hypoxia and hypercapnia on 3 L oxygen at baseline, hyperlipidemia, obesity hypoventilation syndrome, COPD, BiPAP dependent, atrial fibrillation, pulmonary hypertension, chronic heart failure preserved ejection fraction, venous insufficiency, hypertension, morbid obesity, CKD stage III, history of DVT, atherosclerosis of campo coronary artery without angina who lives at home with his son was brought in because of altered mental status / CO2 retention. He also had lower extremity cellulitis. His family found him minimally responsive and brought him to the ER. His mental status improved enroute, but VBG showed CO2 retention. Patient was placed on BiPAP and admitted for medical management. Currently alert and oriented x 3 while on avaps, can tolerate only short periods off AvAPS prior to becoming tachypneic 2/2 elevated CO2. Allergies Allergy/AdvReac Type Severity Reaction Status Date / Time No Known Allergies Allergy Verified 09/13/24 15:45 Home Medications Medication Instructions Recorded Confirmed Type empagliflozin 10 mg tablet 10 mg PO QAM 06/10/23 10/21/24 History fluticasone fur. 100 mcg-umeclid 1 inh inhalation DAILY 06/10/23 10/21/24 History 62.5 mcg-vilant 25 mcg inhalat.powder (Trelegy Ellipta) [id number] 300 mcg-K 60 1 tab PO DAILY 06/10/23 10/21/24 History mcg-lycop 600 mcg-lutein 300 mcg tablet (Centrum Silver Men) pantoprazole 40 mg tablet,delayed 40 mg PO DAILY 06/10/23 10/21/24 History release albuterol sulfate 90 mcg/actuation 2 puff inhalation Q6H PRN 05/12/24 10/21/24 History aerosol inhaler Shortness Of Breath Or Wheezing atorvastatin 80 mg tablet 80 mg PO QAM 05/12/24 10/21/24 History fluticasone propionate 50 2 spray intranasal DAILY 05/12/24 10/21/24 History mcg/actuation nasal spray,suspension ipratropium 0.5 mg-albuterol 3 mg 3 ml inhalation Q6H Shortness Of 05/19/24 10/21/24 Rx (2.5 mg base)/3 mL nebulization Breath #0 mL soln sodium chloride 7 % for 4 ml NEB BIDR #120 mL 05/19/24 10/21/24 Rx nebulization spironolactone 25 mg tablet 12.5 mg (1/2 x 25 mg) PO DAILY #30 05/19/24 10/21/24 Rx tabs montelukast 10 mg tablet 10 mg PO QAM 07/20/24 10/21/24 History diclofenac sodium 1 % topical gel 4 g EXT BID #100 grams 07/29/24 10/21/24 Rx (Voltaren Arthritis Pain) enalapril maleate 5 mg tablet 2.5 mg (1/2 x 5 mg) PO DAILY #30 07/29/24 10/21/24 Rx tabs guaifenesin 600 mg tablet, 1,200 mg (2 x 600 mg) PO Q12 #60 07/29/24 10/21/24 Rx extended release 12 hr (Mucinex) tabs theophylline 400 mg 100 mg (1/4 x 400 mg) PO BID #60 07/29/24 10/21/24 Rx tablet,extended release 24 hr tabs potassium chloride 20 mEq 20 meq PO QAM #30 tabs 11/30/24 12/25/24 Rx tablet,extended release(part/cryst) torsemide 20 mg tablet 20 mg PO QAM #30 tabs 09/26/24 10/21/24 Rx warfarin 10 mg tablet 10 mg PO DAILY #30 tabs 09/26/24 10/21/24 Rx carvedilol 3.125 mg tablet 3.125 mg PO BID 10/22/24 10/22/24 History hyoscyamine sulfate 0.125 mg 0.125 mg PO Q4H PRN increased 10/26/24 Rx sublingual tablet (Levsin/SL) secretion #10 tabs lorazepam 0.5 mg tablet (Ativan) 0.5 mg PO Q2H PRN agitation, 10/26/24 Rx anxiety #10 tabs morphine concentrate 100 mg/5 mL 5 mg (0.25 mL) PO Q2H PRN dyspnea, 10/26/24 Rx (20 mg/mL) oral solution pain #30 mL Patient History Medical History Pulmonary hypertension Hx of smoking Chronic congestive heart failure Hx of deep venous thrombosis Surgical History No pertinent past surgical history Family History Other Diabetes Social History Smoking Status: Never smoker Tobacco Type: Cigarettes Second Hand Exposure: Yes; Do You Dip or Chew Tobacco: No; Hx Alcohol Use: No Hx Substance Use: No Preferred Language: Trinidadian Communication Ability: Effective Full Time Babysitter Required: No Beliefs That Will Affect Care: None Current Living Situation: Other Current Living Situation Comment: lives with son Other Information That Helps Us Care for You: No Feels Safe at Home: Yes Safety Concerns: Feels Safe At This Time Assistive Devices: BiPap, Nebulizer, Oxygen - Continuous and Raised Toilet Seat Review of Systems Review of Systems: All systems reviewed & are unremarkable except as noted in HPI & below Physical Exam Constitutional: WD/WN, vitals as above + obese Eyes: PERRL, conjunctivae normal, anicteric sclerae Neck: trachea midline, no thyromegaly + short neck Respiratory: + uses accessory muscles and + nasal fla ring Auscultation: + diminished lung sounds and + rales Cardiovascular: Rate/Rhythm: regular rate and regular rhythm Heart Sounds: normal S1 and normal S2 Extremities: normal capillary refill, + pedal edema and + edema Gastrointestinal (Abdomen): normal bowel sounds, soft, nontender, no hepatosplenomegaly Musculoskeletal: no cyanosis or clubbing, extremities motor strength 5/5 Skin: BLE erythematous Neurologic: moves all extremities and awake drowsy but arouosable and oriented x4 Results & Data Vital Signs (Past 12 Hours) Vital Signs Temp Pulse Pulse Resp BP Pulse Ox O2 Del Method 10/26/24 07:30 36.4 C L 60 20 158/72 H 95 Oxymask 10/26/24 07:04 67 23 97 BiPAP 10/26/24 04:12 36.6 C 69 18 148/63 H 95 Room Air 10/26/24 03:35 67 28 H 94 10/25/24 23:34 62 10/25/24 23:09 69 21 94 10/25/24 23:01 36.8 C 71 19 149/87 H 94 BiPAP O2 Flow Rate FiO2 10/26/24 07:30 5 10/26/24 07:04 35 10/26/24 04:12 10/26/24 03:35 35 10/25/24 23:34 10/25/24 23:09 35 10/25/24 23:01 Laboratory Results Abnormal lab results 10/25/24 10/25/24 10/25/24 Range/Units 11:05 11:25 16:36 RBC (4.70-6.10) M/uL Hgb (14.0-18.0) g/dl Hct (42.0-52.0) % MCHC (32.0-36.0) g/dL RDW Std Deviation (36.4-46.3) fL RDW Coeff of Dhaval (11.5-14.5) % MPV (9.4-12.4) fL PT (9.0-12.0) Seconds INR (0.9-1.1) ABG pCO2 88 H (35-46) mmHg ABG HCO3 53 H (19-24) mmol/L ABG O2 Saturation 96.0 H (90-95) % ABG Base Excess 22.9 H (-9-1.8) mEq/L VBG pCO2 (38-50) mmHg Chloride (98-107) mmol/L Carbon Dioxide (21-32) mmol/L BUN (6-23) mg/dl BUN/Creatinine Ratio (10-20) POC Glucose 131 H 127 H (70-99) mg/dl 10/25/24 10/26/24 10/26/24 Range/Units 20:14 05:44 07:29 RBC 3.57 L (4.70-6.10) M/uL Hgb 9.0 L (14.0-18.0) g/dl Hct 30.9 L (42.0-52.0) % MCHC 29.1 L (32.0-36.0) g/dL RDW Std Deviation 52.7 H (36.4-46.3) fL RDW Coeff of Dhaval 16.8 H (11.5-14.5) % MPV 9.0 L (9.4-12.4) fL PT 17.2 H (9.0-12.0) Seconds INR 1.7 H (0.9-1.1) ABG pCO2 (35-46) mmHg ABG HCO3 (19-24) mmol/L ABG O2 Saturation (90-95) % ABG Base Excess (-9-1.8) mEq/L VBG pCO2 78 H (38-50) mmHg Chloride 94 L (98-107) mmol/L Carbon Dioxide 43 H* (21-32) mmol/L BUN 34 H (6-23) mg/dl BUN/Creatinine Ratio 41.0 H (10-20) POC Glucose 145 H (70-99) mg/dl Diagnostic Findings Head CT 10/21/24 21:32 Exam(s): CT HEAD Without Contrast EXAM: CT Head Without Intravenous Contrast CLINICAL HISTORY: Reason for exam: confusion. TECHNIQUE: Axial computed tomography images of the head/brain without intravenous contrast. CTDI is 49.27 mGy and DLP is 999.06 mGy-cm. Automated exposure control was utilized for the study. A dose lowering technique was utilized adhering to the principles of ALARA. COMPARISON: 05/13/24 FINDINGS: Brain: Age-related parenchymal volume loss. Mild chronic small vessel ischemic change. Alfaro-white matter differentiation maintained. No hemorrhage, mass effect, parenchymal edema, or midline shift. Ventricles: Unremarkable. No hydrocephalus. Bones/joints: Unremarkable. No acute fracture. Soft tissues: Unremarkable. Vasculature: Intracranial atherosclerosis. Sinuses: Unremarkable as visualized. Mastoid air cells: Unremarkable as visualized. No mastoid effusion. IMPRESSION: No acute intracranial process. Electronically signed by: Art Garcia M.D. 10/21/24 22:52 PM Chest X-Ray 10/21/24 21:33 Exam(s): XR CXR 1 VIEW EXAM: XR Chest, 1 View CLINICAL HISTORY: Reason for exam: Sepsis. TECHNIQUE: Frontal view of the chest. COMPARISON: 09/16/24 FINDINGS: Lungs: Bilateral interstitial/ground-glass opacities. Pleural space: Unremarkable. No pneumothorax. Heart: Cardiomegaly and vascular congestion. Bones/joints: Possible small effusions. Regular morphology of both humeral heads, stable from prior, possibly sequela of osteonecrosis. IMPRESSION: 1. Bilateral interstitial/ground-glass opacities. Appearance suggests edema, but pneumonia is not excluded. 2. Cardiomegaly and vascular congestion. 3. Possible small effusions. Electronically signed by: Art Garcia M.D. 10/21/24 23:[address] 10/22/24 04:04 EXAM: CT chest diagnostic wo con CLINICAL HISTORY: Congestive Heart Failure /pneumonia. sob pt unable to raise arms above head. TECHNIQUE: Contiguous axial CT images of the chest were acquired without administration of intravenous contrast. Coronal and sagittal reconstructions were obtained. One of the following dose reduction techniques were utilized for this exam: Automated exposure control, adjustment of the mA and/or kV according to patient size, use of iterative reconstruction. COMPARISON: Prior X-ray dated 09/13/2024 for comparison. FINDINGS: Lungs: Mosaic attenuation in bilateral lungs. Minimal bilateral pleural effusion and subsegmental atelectasis in posterior basal segments of both lower lobes. Scattered atelectatic bands in bilateral lungs. Mild thickening of right major fissure. Mediastinum: The mediastinum is normal in size and contour. Cardiomegaly. Main pulmonary artery dilated in caliber measuring 4.2 cm. Mild atherosclerotic wall calcifications in aorta. Coronary artery disease. Few enlarged mediastinal lymph nodes largest 2.8 x 1.8 cm in paraesophageal region. Hilar Structures: The hilar structures appear normal without enlargement or abnormality. Trachea and Main Bronchi: The trachea and main bronchi are patent without evidence of obstruction or abnormality. Chest Wall: The chest wall is unremarkable with no evidence of soft tissue or bony abnormalities. Upper Abdomen: Visualized portions of the liver, spleen, adrenal glands, and kidneys are unremarkable. Bones: Significant degenerative changes in bilateral glenohumeral joints and mild left joint effusion. Spondylotic changes in thoracic spine with schmorl node and end plate sclerotic foci Visualized osseous structures are normal, no evidence of fracture or lytic/sclerotic lesions. IMPRESSION: 1. Minimal bilateral pleural effusion and subsegmental atelectasis in posterior basal segments of both lower lobes. 2. Mosaic attenuation and scattered atelectatic bands in bilateral lungs. 3. Cardiomegaly and pulmonary artery hypertension. 4. Enlarged mediastinal lymph nodes likely reactive. Electronically signed by Nils Min 10-22-2024 08:12 AM Abdomen Ultrasound 10/23/24 00:00 ABDOMINAL ULTRASOUND, RIGHT UPPER QUADRANT HISTORY: Acute right upper quadrant abdominal pain ruq pain/tender. COMPARISON: None. FINDINGS: Limited exam secondary to patient body habitus. Pancreas: The pancreas is obscured by bowel gas. Liver: Unremarkable. Gallbladder: Contracted. No gallstones. CBD: 2 mm. Right kidney: No hydronephrosis. IMPRESSION: 1. Limited exam secondary to patient body habitus. 2. Contracted gallbladder. ACT 112: Negative or not required by law. Electronically signed by: Josiah Sanchez M.D. 10/23/2024 2:46 PM Venous Doppler Study 10/23/24 11:20 US venous doppler LE BI CLINICAL HISTORY: le pain, ro dvt TECHNIQUE: Bilateral lower extremity real-time compression venous ultrasound with Color Doppler imaging. Utilizing real-time ultrasonic imaging multiple real time high-resolution ultrasonic images with compression and noncompression maneuvers of the deep venous system in addition to color doppler imaging were performed from the common femoral vein through the proximal calf veins. COMPARISON: None available at the time of this dictation. FINDINGS/IMPRESSION: Exam is limited by patient body habitus. No definite DVT is seen. The calf veins are not well assessed. ACT 112: Negative or not required by law. Electronically signed by: Dex Freeman M.D. 10/23/2024 2:45 PM Medications Administered Current Inpatient Medications Acetaminophen (Acetaminophen 325 Mg Tab) 650 mg PO Q4H PRN PRN Reason: Pain or Fever Stop: 11/21/24 04:03 Last Admin: 10/25/24 15:43 Dose: 650 mg Albuterol (Albuterol Hfa 8 Gm Inhaler) 2 puffs INH Q6H PRN PRN Reason: Shortness Of Breath Or Wheezing Stop: 11/21/24 04:03 Albuterol (Albut/Ipratrop 3mg/0.5mg Neb 3 Ml Vial) 3 ml NEB QIDR OMAYRA; Protocol Stop: 11/21/24 06:59 Last Admin: 10/26/24 07:16 Dose: Not Given Albuterol (Albut/Ipratrop 3mg/0.5mg Neb 3 Ml Vial) 3 ml NEB Q2H PRN; Protocol PRN Reason: SOB/WHEEZING Stop: 11/21/24 04:16 Last Admin: 10/22/24 04:58 Dose: 3 ml Atorvastatin Calcium (Atorvastatin 40 Mg Tab) [facility] [place] [facility] [place] Stop: 11/21/24 08:59 Last Admin: 10/25/24 08:28 Dose: 80 mg Budesonide (Budesonide 0.5 Mg/2 Ml Vial (Pulmicort)) 0.5 mg NEB BIDR [facility] Stop: 11/21/24 18:59 Last Admin: 10/26/24 07:04 Dose: 0.5 mg Dextrose (Dextrose 50% 50 Ml Syringe) 25 - 50 ml IV UD PRN; Protocol PRN Reason: Hypoglycemia Protocol Stop: 11/21/24 04:03 Diclofenac Sodium (Diclofenac Sod 1% Gel 100 Gm Tube) 4 gm EXT BID [facility]; Protocol Stop: 11/21/24 08:59 Last Admin: 10/25/24 20:52 Dose: 4 gm Docusate Sodium (Docusate Sodium 100 Mg Cap) 100 mg PO BID [facility] Stop: 11/22/24 11:29 Last Admin: 10/25/24 20:52 Dose: 100 mg Doxycycline Hyclate (Doxycycline Hyclate 100 Mg Cap) 100 mg PO BID [facility] Stop: 10/28/24 21:01 Last Admin: 10/25/24 20:53 Dose: 100 mg Empagliflozin (Empagliflozin 10 Mg Tab) [facility] [place] [facility] [place] Stop: 11/21/24 08:59 Last Admin: 10/25/24 08:28 Dose: 10 mg Escitalopram Oxalate (Escitalopram Oxalate 10 Mg Tab) 10 mg PO QA [facility] Stop: 11/24/24 08:59 Last Admin: 10/25/24 08:29 Dose: 10 mg Fluticasone Propionate (Fluticasone Propionate Na Spr 16 Gm Btl) 2 sprays NA DAILY [facility] Stop: 11/21/24 08:59 Last Admin: 10/25/24 08:25 Dose: 2 sprays Formoterol Fumarate (Formoterol 20 Mcg/2 Ml Vial) 20 mcg INH BIDR OMAYRA Stop: 11/21/24 18:59 Last Admin: 10/26/24 07:04 Dose: 20 mcg Furosemide (Furosemide 40 Mg/4 Ml Vial) 60 mg IV BID17 OMAYRA Stop: 11/21/24 16:59 Last Admin: 10/25/24 09:38 Dose: 60 mg Glucagon (Glucagon For Inj 1 Mg Vial) 1 mg SQ UD PRN; Protocol PRN Reason: Hypoglycemia Protocol Stop: 11/21/24 04:03 Glucose (Glucose 40% Gel 15 Gm Tube) 15 - 30 gm PO UD PRN; Protocol PRN Reason: Hypoglycemia Protocol Stop: 11/21/24 04:03 Glucose (Glucose 10 Tab/Tube) 4 - 8 tab PO UD PRN; Protocol PRN Reason: Hypoglycemia Protocol Stop: 11/21/24 04:03 Guaifenesin (Guaifenesin 600 Mg Tabcr) 1,200 mg PO Q12 OMAYRA Stop: 11/21/24 08:59 Last Admin: 10/25/24 20:53 Dose: 1,200 mg Cefepime HCl (Maxipime 2000mg) 2,000 mg in 20 mls @ 5 mls/min IV Q12H [facility]; Protocol Stop: 10/29/24 08:59 Last Admin: 10/26/24 08:19 Dose: 5 mls/min Insulin Aspart (Insulin Aspart Per Unit Charge) 0 units SC ACHS [facility] Stop: 11/21/24 07:29 Last Admin: 10/26/24 07:57 Dose: Not Given Miscellaneous (Carbohydrates For Hypoglycemia ) 15 - 30 gm PO UD PRN PRN Reason: Hypoglycemia Protocol Stop: 11/21/24 04:03 Montelukast Sodium (Montelukast Sodium 10 Mg Tablet) 10 mg PO QAM [facility] Stop: 11/21/24 08:59 Last Admin: 10/25/24 08:29 Dose: 10 mg Multivitamins/Minerals (Cerovite Adv Formula Tab) 1 tab PO DAILY [facility] Stop: 11/21/24 08:59 Last Admin: 10/25/24 08:29 Dose: 1 tab Nitroglycerin (Nitroglycerin Sl 0.4 Mg/Tab Tab) 0.4 mg SL Q5M PRN PRN Reason: Chest Pain Stop: 11/21/24 04:03 Pantoprazole Sodium (Pantoprazole 40 Mg Tab) 40 mg PO DAILY OMAYRA Stop: 11/21/24 08:59 Last Admin: 10/25/24 08:28 Dose: 40 mg Polyethylene Glycol (Polyethylene (Miralax) 17 Gm Pack) 17 gm PO DAILY PRN PRN Reason: Constipation Stop: 11/21/24 04:03 Last Admin: 10/23/24 07:53 Dose: 17 gm Potassium Chloride (Potassium Chloride Crtab 20 Meq Tabcr) 20 meq PO QAM [facility] Stop: 11/21/24 08:59 Last Admin: 10/25/24 08:30 Dose: 20 meq Sodium Chloride (Sodium Chlor 7% 4 Ml Neb) 4 ml NEB BIDR OMAYRA Stop: 11/21/24 06:59 Last Admin: 10/26/24 07:04 Dose: 4 ml Spironolactone (Spironolactone 25 Mg Tab) 25 mg PO DAILY [facility] Stop: 11/22/24 08:59 Last Admin: 10/25/24 08:29 Dose: 25 mg Umeclidinium Cabins (Umeclidinium Cabins 62.5mcg/Blister 7 Puffs/Inhaler) 1 puffs INH DAILY [facility] Stop: 11/22/24 08:59 Last Admin: 10/25/24 08:25 Dose: 1 puffs Warfarin Sodium (Warfarin Sod 10 Mg Tab) 10 mg PO DAILY@1600 [facility] Stop: 11/21/24 15:59 Last Admin: 10/25/24 15:42 Dose: 10 mg PG Care Time/CCT Total # of Minutes Spent Total Time Spent with Patient: Total time spent is greater than 50% in coordination of care (as documented) at patient's floor/unit and/or counseling patient: Advanced Care Planning 79341 Advanced Care Planning 30 [place] [address] IN/OBS CONSULT LVL 3,45M Patient Type New History Expanded Problem Focused Exam Expanded Problem Focused Medical Decision Making Moderate Complexity Diagnoses Palliative care by specialist Z51.5 Counseling regarding advanced directives and goals of care Z71.89 Need for comfort care POLST (Physician Orders for Life-Sustaining Treatment) Z78.9 Additional Codes Advanced Care Planning - 37820 Advanced Care Planning 30 Min: 67041 Advanced Car e Planning 30 Min ([id number])
--- NOTE | 2024-10-26 10:20 | Pulmonology Progress Note ---
Date of Service October 26, 2024 Assessment & Plan (1) Heart failure, diastolic, with acute decompensation: (2) Acute on chronic respiratory failure with hypoxia and hypercapnia: (3) Abnormal CT scan, chest: (4) Asthma-COPD overlap syndrome: (5) CRISTOFER (obstructive sleep apnea): (6) Obesity hypoventilation syndrome: Plan CTA chest 10/22/2024 personally reviewed: Minimal centrilobular emphysema appreciated bilaterally Dependent atelectasis bilateral lower lobes, right greater than left Small bilateral pleural effusion Cardiomegaly Station 4 subcarinal lymphadenopathy 2D echo 07/21/2024: EF 60-65%, mild concentric LVH, RV not well-visualized but mildly dilated, RV systolic function normal, PASP 57 mmHg VBG 10/21/2024: 7.24/101/33 -- Acute on chronic hypercapnic hypoxic respiratory failure On 2 and half - 3 L oxygen at home Multifactorial For hypoxia HFpEF and possibly COPD exacerbation For hypercapnia likely underlying CRISTOFER/OHS with noncompliance BNP 439 Procalcitonin 0.13 Respiratory BioFire was negative for everything on 09/13/2024 -- Asthma-COPD overlap syndrome Lifetime non-smoker Does have significant exposure to smoke and fumes at work Even though the patient is a lifetime non-smoker, I do see minimal emphysema on the CT chest Alpha-1 level within normal limit 10/23/2024 On Trelegy 100 at home On montelukast and Theophylline Absolute eosinophil count 360 on 07/28/2024 --CRISTOFER/OHS On BiPAP at home --Pulmonary hypertension Likely combination of type II and type III -- History of DVT On warfarin -- Metabolic alkalosis Likely compensation to chronic respiratory acidosis as well as diuretic use Admission and Anticipated Discharge Date Admission Date: October 22, 2024 Supervising Physician Co-Signing Physician Notes I saw and evaluated the patient with Abram York PA-C, and agree with findings and plan as documented in the note. Patient seen and examined at bedside. No acute distress, no adverse events overnight When staff saw the patient he was more somnolent and the rightfully put on BiPAP When I saw the patient he was more alert, answering questions appropriately Denied any chest pain, no abdominal pain, no nausea vomiting Has been afebrile Constitutional: No acute distress HEENT: EOMI, PERRLA Respiratory system: Decreased air entry bilaterally, no wheeze, no rhonchi, positive crackles bilateral lower lobe CVS: S1-S2 positive, no murmurs or gallops, accentuated P2 Abdomen: Soft, nontender, nondistended, positive bowel sounds x4, obese Extremities: +2 pulses bilaterally radialis/ dorsalis pedis, no cyanosis, +1 pitting edema bilateral lower extremity, positive rubor, positive calor, no dolor Neuro: Somnolent but easily arousable, oriented to self and place Psych: Normal mood and affect G/U: Positive Barron Plan: In/out: - 10.8 L since coming to the hospital Continue with diuretics to keep the patient negative balance. Creatinine still stable at baseline, will give another dose of acetazolamide 250 mg Continue with BiPAP nightly and as needed shortness of breath and naps. Recommend BiPAP settings to get a tidal volume of around 400 Try to avoid over oxygenation, goal O2 saturation 90-92% Nebulized bronchodilators while in the hospital DC theophylline and follow-up theophylline level Patient seems to be depressed, escitalopram has been added by primary team on 10/24/2024 Discontinue Barron catheter should be thought of Patient was discussed with RN as well as primary team Please note the above document was generated using voice recognition software. It may contain grammatical, syntax or spelling errors.Any formal questions or concerns about the content, text or information contained within the body of this dictation should be directly addressed to the provider for clarification. Subjective Patient seen and evaluated at bedside. He is somnolent and awakens to tactile stimuli. He offers no insight today. Review of Systems 2 Review of Systems: Unable to participate Physical Exam 2 Physical Exam: VITAL SIGNS Vital signs and nursing notes were reviewed. GENERAL 69-year-old male appearing his stated age who is somnolent but awakens to tactile stimuli. NOSE Midline and without cyanosis. MOUTH/OROPHARYNX Without perioral cyanosis. NECK Neck with FROM. LUNGS Chest wall evaluation demonstrates normal chest wall A:P diameter. Auscultation reveals diminished breath sounds at the bases. No wheezes. CARDIAC RRR with S1/S2. No murmur, rubs, or gallops appreciated. ABDOMEN Abdominal inspection demonstrates obese. BS normoactive all four quadrants. No tenderness, palpable masses, or ascites noted. EXTREMITIES Nail clubbing not present. No peripheral cyanosis. Moderate pretibial edema present. +3/5 radial palpated throughout. Skin: no rashes, warm and dry Lymphatic: no cervical or axillary lymphadenopathy Results & Data Results & Data Vital Signs (Past 12 Hours) Vital Signs Temp Pulse Pulse Resp BP Pulse Ox O2 Del Method 10/26/24 07:30 36.4 C L 60 20 158/72 H 95 Oxymask 10/26/24 07:04 67 23 97 BiPAP 10/26/24 04:12 36.6 C 69 18 148/63 H 95 Room Air 10/26/24 03:35 67 28 H 94 10/25/24 23:34 62 10/25/24 23:09 69 21 94 10/25/24 23:01 36.8 C 71 19 149/87 H 94 BiPAP O2 Flow Rate FiO2 10/26/24 07:30 5 10/26/24 07:04 35 10/26/24 04:12 10/26/24 03:35 35 10/25/24 23:34 10/25/24 23:09 35 10/25/24 23:01 Laboratory Results 10/26/24 05:44 10/26/24 05:44 PG Care Time/CCT Total # of Minutes Spent Total Time Spent with Patient: Total time spent is greater than 50% in coordination of care (as documented) at patient's floor/unit and/or counseling patient: Coding Level of Care Code 33051 SUB INP/OBS CARE 2/35MIN Diagnoses Heart failure, diastolic, with acute decompensation I50.33 Acute on chronic respiratory failure with hypoxia and hypercapnia J96.21; J96.[address] scan, chest R93.89 Asthma-COPD overlap syndrome J44.89 CRISTOFER (obstructive sleep apnea) G47.33 Obesity hypoventilation syndrome E66.2
[2024-10-26] MEDS: WARFARIN SOD 2 MG TAB PO ONE (10:44)
--- NOTE | 2024-10-26 11:25 | Cardiology Progress Note ---
Date of Service October 26, 2024 Assessment & Plan (1) Bilateral cellulitis of lower leg: (2) Acute respiratory failure with hypoxia and hypercarbia: (3) Heart failure, diastolic, with acute decompensation: (4) Chronic a-fib: (5) Obesity hypoventilation syndrome: Plan 10/23/24: Bilateral lower extremity cellulitis. As per Hospitalist service. Acute decompensated heart failure with preserved ejection fraction * Furosemide 60 mg IV on hold with noted rising CO2. Due for acetazolamide at 1300 today. * Spironolactone 25 mg/day * Continue Empagliflozin (Jardiance) * Fluid restrict to 1500 mL * Sodium restrict to less than 1500 mg/day Chronic atrial fibrillation * Carvedilol discontinued in June 2024 due to significant bradycardia, at which time Theophylline was prescribed with resultant significant improvement in heart rate , but has since been stopped. * Carvedilol resumed by PCP on October 06, 2024 * Carvedilol discontinued once again * Avoid AV dave blockers * Continue chronic anticoagulation Morbid obesity, obesity hypoventilation syndrome, severe pulmonary hypertension, chronic hypoxic hypercarbic respiratory failure. * Continue oxygen supplementation * Recommend BiPAP nightly and when napping during the day. * Pulmonary Medicine on board. --Patient seen in palliative care consultation this am, and is moving toward comfort measures. Admission and Anticipated Discharge Date Admission Date: October 22, 2024 Subjective Patient seen in cardiology follow up. Somnolent. Telemetry reveals AF in the 70s. Intermittent hypoxia noted, with pulse oximetry down to 77% earlier this am. Physical Exam Physical Exam: Temp Pulse Resp BP Pulse Ox O2 Del Method O2 Flow Rate 36.4 C L 60 20 158/72 H 95 Oxymask 5 10/26/24 07:30 10/26/24 07:30 10/26/24 07:30 10/26/24 07:30 10/26/24 07:30 10/26/24 07:30 10/26/24 07:30 FiO2 35 10/26/24 07:04 General: Less lethargic/obtunded HENT: Normocephalic. Atraumatic. Eyes: PER. Conjunctiva pink, sclera clear. Neck: No overt JVD. Heart: Irregularly irregular at 76 bpm. No murmur. No rub. Lungs: Diminished. Decreased. Clear to auscultation anteriorly Abdomen: +BS. Soft. Nontender. No masses or organomegaly. Barron catheter in place Extremities: 2-3+ bilateral lower extremity edema. Mild erythema. Limited neurological examination is without focal deficits. Pulses: radial=2/4, posterior tibial=0/4. Constitutional: + morbidly obese; no acute distress Neck: + thick neck Respiratory: no labored breathing Auscultation: + diminished lung sounds; no crackles and no rales Cardiovascular: Rate/Rhythm: + irregularly irregular Extremities: + edema (2+ edema b/l with erythema ) Gastrointestinal (Abdomen): normal bowel sounds, soft, nontender, no hepatosplenomegaly Neurologic: PERRL, EOMI, accommodation nl, no face palsy, no dysarthria Psychiatric: A+Ox3, euthymic affect Results & Data Vital Signs (Past 12 Hours) Vital Signs Temp Pulse Pulse Resp BP Pulse Ox O2 Del Method 10/26/24 07:30 36.4 C L 60 20 158/72 H 95 Oxymask 10/26/24 07:04 67 23 97 BiPAP 10/26/24 04:12 36.6 C 69 18 148/63 H 95 Room Air 10/26/24 03:35 67 28 H 94 10/25/24 23:34 62 O2 Flow Rate FiO2 10/26/24 07:30 5 10/26/24 07:04 35 10/26/24 04:12 10/26/24 03:35 35 10/25/24 23:34
[2024-10-26] MEDS: MICONAZOLE NITRATE POWDER 85 GM EXT SCH (11:53)
[2024-10-26] MEDS: acetaZOLAMIDE 250 MG in SYRINGE 0 ML IV ONE (12:53)
--- NOTE | 2024-10-26 16:32 | Hospitalist Progress Note ---
Date of Service October 26, 2024 Assessment & Plan (1) Altered mental status: Plan 69 M w/ PMH of type 2 diabetes, chronic respiratory failure with hypoxia and hypercapnia on 3 L oxygen all the time, OHS, BiPAP dependent, HLD, COPD, atrial fibrillation, pHTN, chronic heart failure preserved ejection fraction, venous insufficiency, HTN, morbid obesity, CKD stage III, DVT, atherosclerosis of [place] coronary artery without angina who lives at home with his son was brought in because of altered mental status and found to have CO2 retention and also lower extremity cellulitis. By time the patient was brought to the hospital his mental status improved. BLE noted to be more erythematous than usual at presentation. Reports cough w/ dark yellow sputum for 3-4 days ago [employer]. He is being managed for the following: Acute on chronic heart failure with hypoxia and hypercapnia Possible COPD exacerbation Metabolic encephalopathy: Secondary to CO2 retention iso acute on chronic respiratory failure. Obesity hypoventilation syndrome, ho Patient noted to be altered prior to presentation, reported cough with yellow sputum for 3 to 4 days [employer]. Admitting VBG with pCO2 of 101. Admitting BNP 439. procalcitonin negative. Admitting CT head with no acute finding. Admitting CXR with vascular congestion and possible small effusion. Admitting CT chest with minimal bilateral pleural effusion and bilateral lower lobes atelectasis. BiPAP prn and HS, more somnolent today AM, better later towards lunch time. Scheduled and as needed nebs. Continue with doxycycline 10/22. Pulmonology on board, appreciate recommendation. Theophylline discontinued 10/24 per pulm recs. d/w pt's DIL 10/25 (Maira [phone]) and pt, they want palliative care involvement, will consult for miko. Acute on chronic heart failure with preserved ejection fraction Admitting chest imaging with pulmonary vascular congestion and 2-3+ BLE pitting edema at presentation. Cardiology on board, lasix on hold. Monitor and replete electrolytes as appropriate. Fluid restriction of 1500 mL. GOC discussion: Palliative care evaluated the patient, patient and family want to take patient to home with hospice tomorrow. Palliative care medications will be sent. Continue current management until discharge tomorrow for the sake of stability. BLE cellulitis: Patient with erythematous BLE at presentation. Initial lactate 2.2, resolved on repeat. Patient started on cefepime 10/22, continue. Improving erythema and warmth of lower extremities. Chronic atrial fibrillation: per cardiology, DC Coreg given history of significant bradycardia with it. Continue with Theophylline and warfarin. W arfarin on hold today due to supratherapeutic INR, follow PT/INR tomorrow. Demand ischemia: Troponin elevated in high 20s, flat trended, patient with no chest pain. Likely elevation in the setting of acute respiratory distress. Continue telemetry monitoring. EKG without acute ST or T changes. Other chronic medical conditions: Continue with/resume home meds as when able. Obesity hypoventilation syndrome: BiPAP nightly and when napping. Diabetes: Sliding scale insulin while in hospital. CKD stage III: Stable. Monitor labs. History of DVT: Continue with Coumadin, daily PT/INR. Morbid obesity: Encouraged weight loss, daily exercise regimen, healthy diet. DVT prophylaxis: Supratherapeutic INR Disposition: Continue with telemetry monitoring d/w pt, pt changed code status to dnr/dni 10/25. Admission and Anticipated Discharge Date Admission Date: October 22, 2024 Subjective Patient was seen and examined at bedside. Patient was Eating his lunch, sitting up in bed, NAD. Patient oriented and had discussion with palliative care today, has a plan to go to home with hospice tomorrow. Patient reports lower extremity pain improving, edema seems to be improving slowly. Per RN patient was hypoxic, somnolent and lethargic in the morning, improved with BiPAP. Patient will need BiPAP while sleeping and as needed. Physical Exam Physical Exam: General- Not in distress Head- atraumatic Eyes- PERRL. ENT- oropharynx clear Neck- supple, no JVD. Lungs- Decreased breath sounds bilaterally, bibasal crackles. Heart- regular rhythm; no murmur, no gallop. Abdomen- normal bowel sounds, soft, nontender, no distension Extremities- b/l lower extremity gross edema with erythema seen, Warmth, tender.Improving. Neuro- alert, oriented x 3; PERRL, ; no facial palsy; no dysarthria; Results & Data Results & Data Vital Signs (Past 12 Hours) Vital Signs Temp Pulse Pulse Resp BP Pulse Ox O2 Del Method 10/26/24 16:03 59 L 22 97 10/26/24 15:49 68 20 Nasal Cannula 10/26/24 12:00 Nasal Cannula 10/26/24 11:26 73 21 96 10/26/24 11:24 73 20 96 BiPAP 10/26/24 11:15 36.6 C 69 18 150/72 H 95 BiPAP 10/26/24 07:30 36.4 C L 60 20 158/72 H 95 Oxymask 10/26/24 07:04 67 23 97 BiPAP O2 Flow Rate FiO2 10/26/24 16:03 35 10/26/24 15:49 2 10/26/24 12:00 4 10/26/24 11:26 35 10/26/24 11:24 35 10/26/24 11:15 10/26/24 07:30 5 10/26/24 07:04 35 (1) Altered mental status Altered mental status type: unspecified Qualified Code(s): R41.82 - Altered mental status, unspecified
[2024-10-27 07:12] VITALS: TEMP 97.7
[2024-10-27 07:17] LABS: Hematocrit (blood only) 30.9 % (42.0-52.0); Hemoglobin 9.2 g/dl (14.0-18.0); Mean Corpuscular Hgb Conc 29.8 g/dL (32.0-36.0); Mean Corpuscular Volume 87.3 fL (80.0-100.0); Mean Platelet Volume 9.5 fL (9.4-12.4); Platelet Count 267 K/uL (130-400); RDW Coefficient of Variation 16.9 % (11.5-14.5); RDW Standard Deviation 53.9 fL (36.4-46.3); Red Blood Count 3.54 M/uL (4.70-6.10); White Blood Count 8.38 K/ul (4.8-10.8)
[2024-10-27 07:48] LABS: BUN Creatinine Ratio 42.5 (10-20); Calcium 9.2 mg/dl (8.6-10.3); Creatinine Clr Calc Pharmacy 144.4 ml/min; Phosphorus 2.7 mg/dl (2.5-4.9)
[2024-10-27 07:51] LABS: INR 1.7 (0.9-1.1); Prothrombin Time 17.5 Seconds (9.0-12.0)
--- NOTE | 2024-10-27 08:40 | Pulmonology Progress Note ---
Date of Service October 27, 2024 Assessment & Plan (1) Heart failure, diastolic, with acute decompensation: (2) Acute on chronic respiratory failure with hypoxia and hypercapnia: (3) Abnormal CT scan, chest: (4) Asthma-COPD overlap syndrome: (5) CRISTOFER (obstructive sleep apnea): (6) Obesity hypoventilation syndrome: Plan CTA chest 10/22/2024 personally reviewed: Minimal centrilobular emphysema appreciated bilaterally Dependent atelectasis bilateral lower lobes, right greater than left Small bilateral pleural effusion Cardiomegaly Station 4 subcarinal lymphadenopathy 2D echo 07/21/2024: EF 60-65%, mild concentric LVH, RV not well-visualized but mildly dilated, RV systolic function normal, PASP 57 mmHg VBG 10/21/2024: 7.24/101/33 -- Acute on chronic hypercapnic hypoxic respiratory failure On 2 and half - 3 L oxygen at home Multifactorial For hypoxia HFpEF and possibly COPD exacerbation For hypercapnia likely underlying CRISTOFER/OHS with noncompliance BNP 439 Procalcitonin 0.13 Respiratory BioFire was negative for everything on 09/13/2024 -- Asthma-COPD overlap syndrome Lifetime non-smoker Does have significant exposure to smoke and fumes at work Even though the patient is a lifetime non-smoker, I do see minimal emphysema on the CT chest Alpha-1 level within normal limit 10/23/2024 On Trelegy 100 at home On montelukast and Theophylline Absolute eosinophil count 360 on 07/28/2024 --CRISTOFER/OHS On BiPAP at home --Pulmonary hypertension Likely combination of type II and type III -- History of DVT On warfarin -- Metabolic alkalosis Likely compensation to chronic respiratory acidosis as well as diuretic use -- Goals of care It appears as though the patient has been in conversations with palliative care regarding goals of care moving forward. Transition to hospice in the outpatient setting was reviewed with the patient yesterday. Will defer this to the primary service. From a pulmonary perspective, patient should continue with BiPAP with any sleep as well as with his inhalers as prescribed. Admission and Anticipated Discharge Date Admission Date: October 22, 2024 Supervising Physician Co-Signing Physician Notes I saw and evaluated the patient with Abram York PA-C, and agree with findings and plan as documented in the note. Patient seen and examined at bedside. No acute distress, no adverse events overnight Was on BiPAP when I saw him, he was saturating 96% on 10/04, 35%. Went down to 30% He was somnolent so I did not wake him up I did discuss the case with Abram as well as RN at bedside. He was awake alert in the morning answering all the questions, he had the breakfast Constitutional: No acute distress HEENT: EOMI, PERRLA Respiratory system: Decreased air entry bilaterally, no wheeze, no rhonchi, positive crackles bilateral lower lobe CVS: S1-S2 positive, no murmurs or gallops, accentuated P2 Abdomen: Soft, nontender, nondistended, positive bowel sounds x4, obese Extremities: +2 pulses bilaterally radialis/ dorsalis pedis, no cyanosis, +1 pitting edema bilateral lower extremity Neuro: Somnolent but easily arousable, oriented to self and place Psych: Normal mood and affect G/U: Positive Barron Plan: In/out: - 11.6 L since coming to the hospital Given the dose of acetazolamide 250 mg today Continue with diuretics to keep the patient negative balance. Continue with BiPAP nightly and as needed shortness of breath and naps. Recommend BiPAP settings to get a tidal volume of around 400 Try to avoid over oxygenation, goal O2 saturation 90-92% Nebulized bronchodilators while in the hospital DC theophylline and follow-up theophylline level Patient seems to be depressed, escitalopram has been added by primary team on 10/24/2024 Patient was discussed with RN as well as primary team Patient is apparently being discharged with palliative care in mind. Would recommend to continue all his medications including addition of diuretics Continue with BiPAP as well as oxygen Please note the above document was generated using voice recognition software. It may contain grammatical, syntax or spelling errors.Any formal questions or concerns about the content, text or information contained within the body of this dictation should be directly addressed to the provider for clarification. Subjective Patient seen and evaluated bedside. He is awake alert and oriented this morning. He reports he is breathing better at this time. He offers no complaints. Review of Systems 2 Review of Systems: All systems reviewed & are unremarkable except as noted in Subjective Physical Exam 2 Physical Exam: VITAL SIGNS Vital signs and nursing notes were reviewed. GENERAL 69-year-old male appearing his stated age. NOSE Midline and without cyanosis. MOUTH/OROPHARYNX Without perioral cyanosis. NECK Neck with FROM. LUNGS Chest wall evaluation demonstrates normal chest wall A:P diameter. Auscultation reveals diminished breath sounds at the bases. No wheezes. CARDIAC RRR with S1/S2. No murmur, rubs, or gallops appreciated. ABDOMEN Abdominal inspection demonstrates obese. BS normoactive all four quadrants. No tenderness, palpable masses, or ascites noted. EXTREMITIES Nail clubbing not present. No peripheral cyanosis. Moderate pretibial edema present. +3/5 radial palpated throughout. Skin: no rashes, warm and dry Lymphatic: no cervical or axillary lymphadenopathy Results & Data Results & Data Vital Signs (Past 12 Hours) Vital Signs Temp Pulse Pulse Resp BP Pulse Ox Pulse Ox 10/27/24 08:00 10/27/24 07:42 72 22 97 10/27/24 07:11 36.5 C 62 17 125/74 98 10/27/24 04:00 96 10/27/24 03:00 65 22 97 10/27/24 02:55 37 C 68 20 133/76 97 10/26/24 23:57 23 96 10/26/24 23:56 63 10/26/24 22:47 36.7 C 66 20 140/70 95 O2 Del Method O2 Del Method O2 Flow Rate FiO2 10/27/24 08:00 Nasal Cannula 3 10/27/24 07:42 BiPAP 35 10/27/24 07:11 BiPAP 10/27/24 04:00 BiPAP 10/27/24 03:00 35 10/27/24 02:55 BiPAP 10/26/24 23:57 35 10/26/24 23:56 10/26/24 22:47 BiPAP Laboratory Results 10/27/24 06:20 10/27/24 06:20 PG Care Time/CCT Total # of Minutes Spent Total Time Spent with Patient: Total time spent is greater than 50% in coordination of care (as documented) at patient's floor/unit and/or counseling patient: Coding Level of Care Code 12121 SUB INP/OBS CARE 2/35MIN Diagnoses Heart failure, diastolic, with acute decompensation I50.33 Acute on chronic respiratory failure with hypoxia and hypercapnia J96.21; J96.[address] scan, chest R93.89 Asthma-COPD overlap syndrome J44.89 CRISTOFER (obstructive sleep apnea) G47.33 Obesity hypoventilation syndrome E66.2
--- NOTE | 2024-10-27 09:42 | Hospitalist Progress Note ---
Date of Service October 27, 2024 Assessment & Plan (1) Altered mental status: Plan 69 M w/ PMH of type 2 diabetes, chronic respiratory failure with hypoxia and hypercapnia on 3 L oxygen all the time, OHS, BiPAP dependent, HLD, COPD, atrial fibrillation, pHTN, chronic heart failure preserved ejection fraction, venous insufficiency, HTN, morbid obesity, CKD stage III, DVT, atherosclerosis of [place] coronary artery without angina who lives at home with his son was brought in because of altered mental status and found to have CO2 retention and also lower extremity cellulitis. By time the patient was brought to the hospital his mental status improved. BLE noted to be more erythematous than usual at presentation. 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 He is being managed for the following: Acute on chronic heart failure with hypoxia and hypercapnia Possible COPD exacerbation Metabolic encephalopathy: Secondary to CO2 retention iso acute on chronic respiratory failure. 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 Admitting VBG with pCO2 of 101. Admitting BNP 439. procalcitonin negative. Admitting CT head with no acute finding. Admitting CXR with vascular congestion and possible small effusion. Admitting CT chest with minimal bilateral pleural effusion and bilateral lower lobes atelectasis. BiPAP prn and HS, more somnolent today AM, better later towards lunch time. Scheduled and as needed nebs. Continue with doxycycline 10/22. Pulmonology on board, appreciate recommendation. Theophylline discontinued 10/24 per pulm recs. d/w pt's DIL 10/25 (Maira [phone]) and pt, they want palliative care involvement, will consult for miko. 10/27/2024: Remains stable on BiPAP without any significant distress Has been eating reasonably and taking his medications as prescribed Palliative care medications have been sent to the pharmacy of choice The patient is agreeable to take medications and eat and drink as long as he could Will have antibiotic as per recommendation of the palliative and continue other medications on discharge Hospice care will take over once discharged home with hospice Acute on chronic heart failure with preserved ejection fraction Admitting chest imaging with pulmonary vascular congestion and 2-3+ BLE pitting edema at presentation. Cardiology on board, lasix on hold. Monitor and replete electrolytes as appropriate. Fluid restriction of 1500 mL. Has had cardiac assessment and the patient will be discharged home on hospice care [facility] discussion: Palliative care evaluated the patient, patient and family want to take patient to home with hospice tomorrow. Palliative care medications will be sent. Continue current management until discharge tomorrow for the sake of stability. Remains stable but critical with stable hemodynamics Will be discharged home with hospice as planned BLE cellulitis: Patient with erythematous BLE at presentation. Initial lactate 2.2, resolved on repeat. Patient started on cefepime 10/22, continue. Improving erythema and warmth of lower extremities. Will continue oral antibiotic for now as planned by palliative Chronic atrial fibrillation: per cardiology, DC Coreg given history of significant bradycardia with it. Continue with Theophylline and warfarin. Warfarin on hold today due to supratherapeutic INR, follow PT/INR tomorrow. Will continue current medications as advised Demand ischemia: Troponin elevated in high 20s, flat trended, patient with no chest pain. Likely elevation in the setting of acute respiratory distress. Continue telemetry monitoring. EKG without acute ST or T changes. Other chronic medical conditions: Continue with/resume home meds as when able. Obesity hypoventilation syndrome: BiPAP nightly and when napping. Diabetes: Sliding scale insulin while in hospital. CKD stage III: Stable. Monitor labs. History of DVT: Continue with Coumadin, daily PT/INR. Morbid obesity: Encouraged weight loss, daily exercise regimen, healthy diet. DVT prophylaxis: Supratherapeutic INR Disposition: Continue with telemetry monitoring d/w pt, pt changed code status to dnr/dni 10/25. Admission and Anticipated Discharge Date Admission Date: October 22, 2024 Subjective 10/27/2024 The patient was seen and examined in telemetry unit He has been stable and he is on BiPAP during my examination Denies any significant symptoms He is aware that he will be discharged this morning home with hospice care Review of Systems Review of Systems: All systems reviewed and are unremarkable except as noted below. Physical Exam Physical Exam: Lying in bed on BiPAP Constitutional: well developed, well nourished, + ill appearing and + obese Eyes: PERRL, conjunctivae normal, anicteric sclerae ENMT: external ear and nose normal, oropharynx normal Neck: trachea midline, no thyromegaly Respiratory: + respiratory distress (Mild to moderate shortness of breath at rest) Auscultation: + diminished lung sounds and + crackles (Occasional crackles at the bases) Cardiovascular: Rate/Rhythm: regular rate and regular rhythm; not tachycardic Heart Sounds: normal S1 and normal S2; no murmur Extremities: + edema (Trace edema bilaterally) Gastrointestinal (Abdomen): Inspection/Auscultation: + abdomen distended and normal bowel sounds Percussion/Palpation: abdomen soft; abdomen nontender Musculoskeletal: No acute arthritis involving any of the joint Neurologic: Alert and awake. Moves all extremities. Generally weak and lethargy Results & Data Results & Data Vital Signs (Past 12 Hours) Vital Signs Temp Pulse Pulse Resp BP Pulse Ox Pulse Ox 10/27/24 08:00 10/27/24 07:42 72 22 97 10/27/24 07:11 36.5 C 62 17 125/74 98 10/27/24 04:00 96 10/27/24 03:00 65 22 97 10/27/24 02:55 37 C 68 20 133/76 97 10/26/24 23:57 23 96 10/26/24 23:56 63 10/26/24 22:47 36.7 C 66 20 140/70 95 O2 Del Method O2 Del Method O2 Flow Rate FiO2 10/27/24 08:00 Nasal Cannula 3 10/27/24 07:42 BiPAP 35 10/27/24 07:11 BiPAP 10/27/24 04:00 BiPAP 10/27/24 03:00 35 10/27/24 02:55 BiPAP 10/26/24 23:57 35 10/26/24 23:56 10/26/24 22:47 BiPAP Laboratory Results Short CBC 10/27/24 Range/Units 06:20 WBC 8.38 (4.8-10.8) K/ul Hgb 9.2 L (14.0-18.0) g/dl Hct 30.9 L (42.0-52.0) % Plt Count 267 (130-400) K/uL BMP 10/27/24 06:20 Sodium 139 Potassium 4.0 Chloride 95 L Carbon Dioxide 41 H* BUN 31 H Creatinine 0.73 Glucose 88 Calcium 9.2 Medications Administered Current Inpatient Medications Acetaminophen (Acetaminophen 325 Mg Tab) 650 mg PO Q4H PRN PRN Reason: Pain or Fever Stop: 11/21/24 04:03 Last Admin: 10/26/24 20:56 Dose: 650 mg Albuterol (Albuterol Hfa 8 Gm Inhaler) 2 puffs INH Q6H PRN PRN Reason: Shortness Of Breath Or Wheezing Stop: 11/21/24 04:03 Albuterol (Albut/Ipratrop 3mg/0.5mg Neb 3 Ml Vial) 3 ml NEB QIDR OMAYRA; Protocol Stop: 11/21/24 06:59 Last Admin: 10/27/24 07:42 Dose: Not Given Albuterol (Albut/Ipratrop 3mg/0.5mg Neb 3 Ml Vial) 3 ml NEB Q2H PRN; Protocol PRN Reason: SOB/WHEEZING Stop: 11/21/24 04:16 Last Admin: 10/22/24 04:58 Dose: 3 ml Atorvastatin Calcium (Atorvastatin 40 Mg Tab) [facility] [place] Stop: 11/21/24 08:59 Last Admin: 10/27/24 08:14 Dose: 80 mg Budesonide (Budesonide 0.5 Mg/2 Ml Vial (Pulmicort)) 0.5 mg NEB BIDR [facility] Stop: 11/21/24 18:59 Last Admin: 10/27/24 07:42 Dose: 0.5 mg Dextrose (Dextrose 50% 50 Ml Syringe) 25 - 50 ml IV UD PRN; Protocol PRN Reason: Hypoglycemia Protocol Stop: 11/21/24 04:03 Diclofenac Sodium (Diclofenac Sod 1% Gel 100 Gm Tube) 4 gm EXT BID [facility]; Protocol Stop: 11/21/24 08:59 Last Admin: 10/27/24 08:17 Dose: 4 gm Docusate Sodium (Docusate Sodium 100 Mg Cap) 100 mg PO BID [facility] Stop: 11/22/24 11:29 Last Admin: 10/27/24 08:21 Dose: 100 mg Doxycycline Hyclate (Doxycycline Hyclate 100 Mg Cap) 100 mg PO BID [facility] Stop: 10/28/24 21:01 Last Admin: 10/27/24 08:14 Dose: 100 mg Empagliflozin (Empagliflozin 10 Mg Tab) 10 mg PO [facility] Stop: 11/21/24 08:59 Last Admin: 10/27/24 08:14 Dose: 10 mg Escitalopram Oxalate (Escitalopram Oxalate 10 Mg Tab) 10 mg PO [facility] Stop: 11/24/24 08:59 Last Admin: 10/27/24 08:14 Dose: 10 mg Fluticasone Propionate (Fluticasone Propionate Na Spr 16 Gm Btl) 2 sprays NA DAILY [facility] Stop: 11/21/24 08:59 Last Admin: 10/27/24 08:15 Dose: 2 sprays Formoterol Fumarate (Formoterol 20 Mcg/2 Ml Vial) 20 mcg INH BIDR O[facility] Stop: 11/21/24 18:59 Last Admin: 10/27/24 07:42 Dose: 20 mcg Furosemide (Furosemide 40 Mg/4 Ml Vial) 60 mg IV BID17 O[facility] Stop: 11/21/24 16:59 Last Admin: 10/25/24 09:38 Dose: 60 mg Glucagon (Glucagon For Inj 1 Mg Vial) 1 mg SQ UD PRN; Protocol PRN Reason: Hypoglycemia Protocol Stop: 11/21/24 04:03 Glucose (Glucose 40% Gel 15 Gm Tube) 15 - 30 gm PO UD PRN; Protocol PRN Reason: Hypoglycemia Protocol Stop: 11/21/24 04:03 Glucose (Glucose 10 Tab/Tube) 4 - 8 tab PO UD PRN; Protocol PRN Reason: Hypoglycemia Protocol Stop: 11/21/24 04:03 Guaifenesin (Guaifenesin 600 Mg Tabcr) 1,200 mg PO Q12 [facility] Stop: 11/21/24 08:59 Last Admin: 10/27/24 08:14 Dose: 1,200 mg Cefepime HCl (Maxipime 2000mg) 2,000 mg in 20 mls @ 5 mls/min IV Q12H [facility]; Protocol Stop: 10/29/24 08:59 Last Admin: 10/27/24 08:22 Dose: 5 mls/min Insulin Aspart (Insulin Aspart Per Unit Charge) 0 units SC ACHS OMAY[facility] Stop: 11/21/24 07:29 Last Admin: 10/27/24 08:22 Dose: 3 units Miconazole Nitrate (Miconazole Nitrate Powder 85 Gm) 1 appln EXT BID [facility] Stop: 11/25/24 20:59 Last Admin: 10/27/24 08:17 Dose: 1 appln Miscellaneous (Carbohydrates For Hypoglycemia ) 15 - 30 gm PO UD PRN PRN Reason: Hypoglycemia Protocol Stop: 11/21/24 04:03 Montelukast Sodium (Montelukast Sodium 10 Mg Tablet) 10 mg PO QAM [facility] Stop: 11/21/24 08:59 Last Admin: 10/27/24 08:14 Dose: 10 mg Multivitamins/Minerals (Cerovite Adv Formula Tab) 1 tab PO DAILY OMAYRA Stop: 11/21/24 08:59 Last Admin: 10/27/24 08:14 Dose: 1 tab Nitroglycerin (Nitroglycerin Sl 0.4 Mg/Tab Tab) 0.4 mg SL Q5M PRN PRN Reason: Chest Pain Stop: 11/21/24 04:03 Pantoprazole Sodium (Pantoprazole 40 Mg Tab) 40 mg PO DAILY O[facility] Stop: 11/21/24 08:59 Last Admin: 10/27/24 08:14 Dose: 40 mg Polyethylene Glycol (Polyethylene (Miralax) 17 Gm Pack) 17 gm PO DAILY PRN PRN Reason: Constipation Stop: 11/21/24 04:03 Last Admin: 10/26/24 12:00 Dose: 17 gm Potassium Chloride (Potassium Chloride Crtab 20 Meq Tabcr) 20 meq PO QAM [facility] Stop: 11/21/24 08:59 Last Admin: 10/27/24 08:22 Dose: 20 meq Sodium Chloride (Sodium Chlor 7% 4 Ml Neb) 4 ml NEB BIDR [facility] Stop: 11/21/24 06:59 Last Admin: 10/27/24 07:42 Dose: 4 ml Spironolactone (Spironolactone 25 Mg Tab) 25 mg PO DAILY OMAYRA Stop: 11/22/24 08:59 Last Admin: 10/27/24 08:14 Dose: 25 mg Umeclidinium [place] (Umeclidinium [place] 62.5mcg/Blister 7 Puffs/Inhaler) 1 puffs INH DAILY OMAYRA Stop: 11/22/24 08:59 Last Admin: 10/27/24 08:14 Dose: 1 puffs Warfarin Sodium (Warfarin Sod 10 Mg Tab) 10 mg PO DAILY@1600 [facility] Stop: 11/21/24 15:59 Last Admin: 10/26/24 16:53 Dose: 10 mg Continue antibiotic (1) Altered mental status Altered mental status type: unspecified Qualified Code(s): R41.82 - Altered mental status, unspecified
[2024-10-27 10:16] VITALS: BP 147/93
[2024-10-27 10:28] VITALS: RESP 21; O2SAT 93
[2024-10-27 10:31] VITALS: PULSE 72
[2024-10-27] MEDS: acetaZOLAMIDE 250 MG in SYRINGE 0 ML IV STA (10:59)
--- NOTE | 2024-10-28 17:28 | Discharge Summary ---
Date of Service October 28, 2024 Admission HPI Per Admitting Provider 69-year-old male with past medical history significant for type 2 diabetes, chronic respiratory failure with hypoxia and hypercapnia on 3 L oxygen all the time, hyperlipidemia, obesity hypoventilation syndrome, COPD, BiPAP dependent, atrial fibrillation, pulmonary hypertension, chronic heart failure preserved ejection fraction, venous insufficiency, hypertension, morbid obesity, CKD stage III, history of DVT, atherosclerosis of [place] coronary artery without angina who lives at home with his son was brought in because of altered mental status and found to have CO2 retention and also lower extremity cellulitis. His family found him somewhat unresponsive and altered and was brought to the ER. By time the patient was brought to the hospital his mental status improved. His VBG showed CO2 retention. And also seem to have lower EXTR cellulitis. Patient was placed on BiPAP. Currently alert and oriented x 3. His sugars at home were 400 for EMS but in the ER they are running in 200s.Legs are more erythematous than usual. Patient denies headache. No runny nose. Has some cough. Denies any chest pain. Denies any shortness of breath currently. No nausea. No abdominal pain. Normal bowel and bladder movements. Hemodynamics are okay currently. Patient was recently in the hospital for acute on chronic respiratory failure secondary COPD exacerbation and also acute on chronic diastolic CHF. Past medical history. As mentioned above Past surgical history. Left lower extremity vascular surgery Social history quit smoking 2012. Smoked a pack which used to last 2 to 3 weeks for 30 years. No alcohol use. No drug use. Family history. Father had heart attacks. Mother had Alzheimer's. Son has diabetes. Admission Exam Per Admitting Provider Physical Exam: General- Not in distress Head- atraumatic Eyes- PERRL. ENT- oropharynx clear Neck- supple, no JVD. Lungs- clear to auscultation no wheezing or crackles Heart- regular rhythm; no murmur, no gallop. Abdomen- normal bowel sounds, soft, nontender, no distension Extremities- b/l lower extremity gross edema with erythema seen. Neuro- alert, oriented x 3; PERRL, ; no facial palsy; no dysarthria; Principal Diagnosis Acute on chronic heart failure with hypoxia and hypercapnia, metabolic encephalopathy, bilateral leg cellulitis, obesity hypoventilation syndrome, possible COPD exacerbation Discharge Exam Lying in bed on BiPAP Constitutional well developed, well nourished, + ill appearing and + obese Eyes PERRL, conjunctivae normal, anicteric sclerae ENMT external ear and nose normal, oropharynx normal Neck trachea midline, no thyromegaly Respiratory + respiratory distress (Mild to moderate shortness of breath at rest) Auscultation: + diminished lung sounds and + crackles (Occasional crackles at the bases) Cardiovascular Rate/Rhythm: regular rate and regular rhythm; not tachycardic Heart Sounds: normal S1 and normal S2; no murmur Extremities: + edema (Trace edema bilaterally) Gastrointestinal (Abdomen) Inspection/Auscultation: + abdomen distended and normal bowel sounds Percussion/Palpation: abdomen soft; abdomen nontender Discharge Data Allergies Allergy/AdvReac Type Severity Reaction Status Date / Time No Known Allergies Allergy Verified 09/13/24 15:45 Consultations 10/21/24 22:49 ED Decision to Admit Stat 10/22/24 08:00 Consult Cardiology Routine Consult Pulmonology Routine 10/25/24 16:01 Consult Palliative Care Routine Ordered Studies 10/21/24 21:32 CT head/brain wo con Stat 10/22/24 04:04 CT chest diagnostic wo con Urgent 10/23/24 US abdomen limited Routine 10/23/24 11:20 US venous doppler LE Routine Hospital Course (1) Altered mental status: Plan 69 M w/ PMH of type 2 diabetes, chronic respiratory failure with hypoxia and hypercapnia on 3 L oxygen all the time, OHS, BiPAP dependent, HLD, COPD, atrial fibrillation, pHTN, chronic heart failure preserved ejection fraction, venous insufficiency, HTN, morbid obesity, CKD stage III, DVT, atherosclerosis of [place] coronary artery without angina who lives at home with his son was brought in because of altered mental status and found to have CO2 retention and also lower extremity cellulitis. By time the patient was brought to the hospital his mental status improved. BLE noted to be more erythematous than usual at presentation. 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 Admitting VBG with pCO2 of 101. Admitting BNP 439. procalcitonin negative. Admitting CT head with no acute finding. Admitting CXR with vascular congestion and possible small effusion. Admitting CT chest with minimal bilateral pleural effusion and bilateral lower lobes atelectasis. BiPAP prn and HS, more somnolent today AM, better later towards lunch time. Scheduled and as needed nebs. Continue with doxycycline 10/22. Pulmonology on board, appreciate recommendation. Theophylline discontinued 10/24 per pulm recs. d/w pt's DIL 10/25 (Maira [phone]) and pt, they want palliative care involvement, will consult for miko. 10/27/2024: Remains stable on BiPAP without any significant distress Has been eating reasonably and taking his medications as prescribed Palliative care medications have been sent to the pharmacy of choice The patient is agreeable to take medications and eat and drink as long as he could Will have antibiotic as per recommendation of the palliative and continue other medications on discharge Hospice care will take over once discharged home with hospice Acute on chronic heart failure with preserved ejection fraction Admitting chest imaging with pulmonary vascular congestion and 2-3+ BLE pitting edema at presentation. Cardiology on board, lasix on hold. Monitor and replete electrolytes as appropriate. Fluid restriction of 1500 mL. Has had cardiac assessment and the patient will be discharged home on hospice care [facility] discussion: Palliative care evaluated the patient, patient and family want to take patient to home with hospice tomorrow. Palliative care medications will be sent. Continue current management until discharge tomorrow for the sake of stability. Remains stable but critical with stable hemodynamics Will be discharged home with hospice as planned BLE cellulitis: Patient with erythematous BLE at presentation. Initial lactate 2.2, resolved on repeat. Patient started on cefepime 10/22, continue. Improving erythema and warmth of lower extremities. Will continue oral antibiotic for now as planned by palliative Chronic atrial fibrillation: per cardiology, DC Coreg given history of significant bradycardia with it. Continue with Theophylline and warfarin. Warfarin on hold today due to supratherapeutic INR, follow PT/INR tomorrow. Will continue current medications as advised Demand ischemia: Troponin elevated in high 20s, flat trended, patient with no chest pain. Likely elevation in the setting of acute respiratory distress. Continue telemetry monitoring. EKG without acute ST or T changes. Other chronic medical conditions: Continue with/resume home meds as when able. Obesity hypoventilation syndrome: BiPAP nightly and when napping. Diabetes: Sliding scale insulin while in hospital. CKD stage III: Stable. Monitor labs. History of DVT: Continue with Coumadin, daily PT/INR. Morbid obesity: Encouraged weight loss, daily exercise regimen, healthy diet. DVT prophylaxis: Supratherapeutic INR Disposition: Continue with telemetry monitoring d/w pt, pt changed code status to dnr/dni 10/25. Total Time Total Time Spent Total Time Spent (In Minutes): 40 Minutes Discharge Plan Discharge Items Patient Disposition: Hospice - Home Reason For Visit: AMS, ACUTE CHF, RESP ACIDOSIS, CELLULITIS Discharge Diagnosis: Acute on chronic heart failure with hypoxia and hypercapnia, metabolic encephalopathy, bilateral leg cellulitis, obesity hypoventilation syndrome, possible COPD exacerbation Condition on Discharge: Serious Activity: As commented below Activity Comment: Will be discharged home with hospice Non-emergency contact: Primary Care Provider Call non-emergency contact if: you have any medication questions and your symptoms worsen Follow-up/Referrals: Charley Crane MD [Primary Care Provider] - (As per hospice care recommendation) Diet: Heart Healthy Fluids: 1500ml (6 cups) Addtl Attending Provider Instructions: Please take precautions to avoid falls Take your medications as advised and the medications can be adjusted as per hospice care at home Continue using oxygen Pending Studies at Discharge: No Stand-Alone Forms: [facility] Medications and DC Order Prescriptions: New morphine concentrate 100 mg/5 mL (20 mg/mL) solution 5 mg PO Q2H PRN (Reason: dyspnea, pain) Qty: 30 0RF hyoscyamine sulfate [Levsin/SL] 0.125 mg tablet, sublingual 0.125 mg PO Q4H PRN (Reason: increased secretion) Qty: 10 0RF lorazepam [Ativan] 0.5 mg tablet 0.5 mg PO Q2H PRN (Reason: agitation, anxiety) Qty: 10 0RF doxycycline hyclate 100 mg Capsule 100 mg PO BID Qty: 10 0RF cefdinir 300 mg capsule 300 mg PO BID 5 Days Qty: 10 0RF torsemide 20 mg tablet 20 mg PO DAILY Qty: 30 0RF Continued pantoprazole 40 mg Tablet,Delayed Release (Dr/Ec) 40 mg PO DAILY Centrum Silver Men [id number] mcg Tablet 1 tab PO DAILY Rx Instructions: Unable to verify OTC meds at this date/time. empagliflozin 10 mg Tablet 10 mg PO QAM Trelegy Ellipta 100-62.5-25 mcg Blister With Device 1 inh INHALATION DAILY carvedilol 3.125 mg tablet 3.125 mg PO BID atorvastatin 80 mg tablet 80 mg PO QAM albuterol sulfate 90 mcg/actuation Hfa Aerosol Inhaler 2 puff INHALATION Q6H PRN (Reason: Shortness Of Breath Or Wheezing) fluticasone propionate 50 mcg/actuation [place],Suspension 2 spray INTRANASAL DAILY Rx Instructions: Unable to verify OTC meds at this date/time. spironolactone 25 mg Tablet 12.5 mg PO DAILY Qty: 30 0RF sodium chloride 7 % Solution For Nebulization 4 ml NEB BIDR Qty: 120 0RF ipratropium-albuterol 0.5 mg-3 mg(2.5 mg base)/3 mL solution for nebulization 3 ml INHALATION Q6H Qty: 0 0RF montelukast 10 mg tablet 10 mg PO QAM diclofenac sodium [Voltaren Arthritis Pain] 1 % Gel 4 g EXT BID Qty: 100 0RF guaifenesin [Mucinex] 600 mg Tablet Extended Release 12hr 1,200 mg PO Q12 Qty: 60 0RF potassium chloride 20 mEq Tablet,Er Particles/Crystals 20 meq PO QAM Qty: 30 0RF warfarin 10 mg Tablet 10 mg PO DAILY Qty: 30 0RF Discontinued enalapril maleate 5 mg Tablet 2.5 mg PO DAILY Qty: 30 0RF theophylline 400 mg Tablet Extended Release 24 Hr 100 mg PO BID Qty: 60 0RF torsemide 20 mg Tablet 20 mg PO QAM Qty: 30 0RF Discharge Orders: Discharge Order (Routine); Ordered 10/27/24 Ordered By: Darrick Henderson Admission Data Admit Date/Time: 10/22/24 01:47 Attending Provider: Darrick Henderson Admit Provider: Domenic Carlos Primary Care Provider: Charley Crane Other Providers: David Reid; Virgie Brito; [place]; [facility]; Sandeep Garcia Other Interventions: Discharge Summary Assessment (RN) Last Done: 10/27/24 10:14
== END 2024-10-27 12:13 | disposition hospice, home (50) | DRG 291 ==
LOC: ED 20:48 → 2S 10-22 01:47 → SUATTDRO 10-22 01:47 → 2S 10-22 03:01